=== PATIENT | female | born 1955 | race Caucasian/White ===

== ENCOUNTER → 2019-06-24 07:35 | Outpatient (CLI) | payer MEDICARE, SELFPAY ==
[2019-06-24 13:49] LABS: Monoscreen (Rapid) Negative (Negative)
== END ==
PROVIDERS: PCP Nurse Practitioner Family; Visit Provider Nurse Practitioner Family
DX: R53.83 Other fatigue (principal)
CPT/HCPCS: 36415; 86318

== ENCOUNTER → 2019-08-06 11:17 | Outpatient (CLI) | payer MEDICARE, SELFPAY ==
[2019-08-06 13:34] LABS: Basophils # 0.1 K/mm3 (0-0.2); Basophils % 0.5 % (0.1-2.0); Eosinophils # 0.4 K/mm3 (0.0-0.4); Eosinophils % 2.8 % (0.1-12.0); Hematocrit 37.6 % (37.0-47.0); Hemoglobin 11.1 g/dL (12.2-16.2); Lymphocytes # 3.6 K/mm3 (0.7-4.5); Lymphocytes % 24.5 % (10-50); Mean Corpuscular HGB Conc 29.6 g/dL (31.8-35.4); Mean Corpuscular Hemoglobin 28.6 pg (27.0-31.2); Mean Corpuscular Volume 96.8 fl (81-99); Mean Platelet Volume 8.4 fl (7.4-10.4); Monocytes # 0.8 K/mm3 (0.1-1.0); Monocytes % 5.5 % (1.7-9.3); Neutrophils # 9.8 K/mm3 (1.8-7.8); Neutrophils % 66.8 % (37.0-80.0); Platelet Count 479 K/mm3 (142-424); Red Blood Count 3.89 M/mm3 (4.20-5.40); Red Cell Distribution Width 16.8 % (11.5-17.5); White Blood Count 14.7 K/mm3 (4.8-10.8)
[2019-08-06 13:44] LABS: Alanine Aminotransferase 23 U/L (12-78); Albumin Level 3.3 gm/dL (3.4-5.0); Albumin/Globulin Ratio 0.9 (1.1-1.8); Alkaline Phosphatase 85 U/L (46-116); Aspartate Amino Transferase 11 U/L (15-37); Bilirubin,Total 0.3 mg/dL (0.2-1.0); Blood Urea Nitrogen 10 mg/dL (7-18); Carbon Dioxide 30 mmol/L (21.0-32.0); Creatinine,Serum 0.88 mg/dL (0.55-1.02); Estimated Glomerular Filt Rate 65 ml/min (>60); GFR (African American) 79 ML/MIN (>60); Globulin 3.6 gm/dl (1.3-3.2); Glucose 132 mg/dL (74-106); Total Protein,Serum 6.9 gm/dL (6.4-8.2)
[2019-08-06 14:30] LABS: Anion Gap 10.9 mEq/L (5-15); Chloride 98 mmol/L (98-107); Potassium 3.9 mmoL/L (3.5-5.1); Sodium 135 mmol/L (136-145)
== END ==
PROVIDERS: PCP Nurse Practitioner Family; Visit Provider Nurse Practitioner Family
DX: J96.10 Chronic respiratory failure, unspecified whether with hypoxia or hypercapnia (principal); N17.9 Acute kidney failure, unspecified
CPT/HCPCS: 36415; 80053; 85025

== ENCOUNTER 2019-11-27 14:31 | Observation (INO) ==
[2019-11-27 15:24] LABS: ABG Base Excess 2.9 mmol/L (-2.4-2.3); ABG HCO3 28.1 mmhg (22.0-26.0); ABG Oxygen Saturation 94 % (90-100); ABG PCO2 48.8 mmhg (35.0-45.0); ABG PH 7.38 mmol/L (7.35-7.45); ABG PO2 71.4 mmhg (80-100); ABG TCO2 29.6 mmhg (23-27)
--- NOTE | 2019-11-27 15:25 | Emergency Department Note ---
ED Disposition Clinical Impression: COPD exacerbation, Atypical chest pain Acute bronchitis Qualifiers: Bronchitis organism: unspecified organism Qualified Code(s): J20.9 - Acute bronchitis, unspecified Disposition: Admitted as Observation Condition on Discharge: Fair Referrals: Provider,Referral, [Primary Care Provider] - - Critical Care Critical Care Time: No Attestation: On , the high probability of a clinically significant, sudden or life threatening deterioration of the following system(s) required my full and direct attention, intervention and personal management. The time I documented below is in addition to time spent performing reported procedures but includes the following listed in this critical care notation. Medical Decision Making - Prasad Inquiry Pt receiving controlled substance: No Vital Signs: 11/27/19 14:34 11/27/19 15:28 Temperature 98 F Temperature Source Oral Pulse Rate 88 Pulse Rate [Left Radial] 88 Respiratory Rate 40 H Blood Pressure [Right Arm] 209/91 H Blood Pressure Mean [Right Arm] 130 Blood Pressure Position [Right Arm] Sitting 02 Sat by Pulse Oximetry 89 L Oxygen Delivery Method Nasal Cannula Nasal Cannula Oxygen Flow Rate (LPM) 4 2 - Lab Data Lab Results 11/27/19 14:40: Influenza Type A Ag Negative, Influenza Type B Ag Negative 11/27/19 14:41: Specimen Source R radial, O2 % 2lpm, ABG pH 7.38, ABG pCO2 48.8 H, ABG pO2 71.4 L, ABG HCO3 28.1 H, ABG Total CO2 29.6 H, ABG O2 Saturation 94, ABG Base Excess 2.9 H, Matt Test Acceptable 11/27/19 15:18: WBC 11.8 H, RBC 3.68 L, Hgb 10.2 L, Hct 34.3 L, MCV 93.3, MCH 27.8, MCHC 29.8 L, RDW 16.0, Plt Count 460 H, MPV 8.1, Neut % (Auto) 55.9, Lymph % (Auto) 31.6, [place] % (Auto) 7.7, Eos % (Auto) 4.1, Baso % (Auto) 0.7, Neut # (Auto) 6.6, Lymph # (Auto) 3.7, [place] # (Auto) 0.9, Eos # (Auto) 0.5 H, Baso # (Auto) 0.1 02/13/20 15:18: Sodium 141, Potassium 3.9, Chloride 101, Carbon Dioxide 33 H, Anion Gap 10.9, BUN 5 L, Creatinine 0.77, Estimated Creat Clear 40, Estimated GFR 76, Est GFR ( Amer) 92, Glucose 142 H, Calcium 8.7, Total Bilirubin 0.2, AST 11 L, ALT 13, Alkaline Phosphatase 92, Troponin I < 0.02, Total Protein 7.8, Albumin 3.2 L, Globulin 4.6 H, Albumin/Globulin Ratio 0.7 L 11/27/19 15:18: Lactate 1.2 Result diagrams: 11/27/19 15:18 11/27/19 15:18 Orders (Tests/Meds): ED MEDICATIONS Discontinued Medications Generic Name Dose Route Start Last Admin Trade Name Freq PRN Reason Stop Dose Admin Albuterol/Ipratropium 3 ml 11/27/19 14:46 11/27/19 15:00 Duoneb 3ml Neb IH 11/27/19 14:47 3 ml ONCE ONE Administration Methylprednisolone Sodium Succinate 125 mg 11/27/19 15:40 11/27/19 15:53 Solu-Medrol 125mg/2ml Vial IV 11/27/19 15:41 125 mg ONCE ONE Administration ORDERS Category Date Time Status Troponin I Q3H Lab 11/27/19 17:45 Ordered Troponin I Q3H Lab 11/27/19 20:45 Ordered Blood Culture Stat Micro 11/27/19 15:18 Received - Radiology Data #1 Image(s): Chest Image Reviewed: Yes I have reviewed radiologist's interpretation PROCEDURE: XR CHEST PORTABLE CLINICAL HISTORY: SOB Shortness of breath COMPARISON: No exams were available for comparison FINDINGS: Borderline cardiomegaly without failure. There are low lung volumes. Vague increased density right upper lobe possibly due to prominent rib end. Minimal atelectatic or fibrotic changes left mid lung. Loop recorder device is present overlying the lower left paramedian region of the chest. No acute bony abnormalities. IMPRESSION: Nonspecific nonacute findings as described above. Dictated by: Matt Pfeiffer MD 11/27/2019 15:05 Electronically signed by Matt Pfeiffer MD in [place] 11/27/2019 15:05 - ECG Data Tracing #1 EKG interpreted by Jose Johansen MD: Rhythm: sinus Rate: 70 [place]: normal Ectopy: Premature atrial contraction Conduction: Incomplete right bundle branch block ST Segment Changes: none T Wave Changes: none Q Waves: none No evidence of acute ischemia or injury - Physician Consults Physician Consulted: Ramon Time: 16:42 Reason -: Admission Comment/Response: Agrees to admit the patient to the hospital. We discussed the patient's clinical information, including history, exam, laboratory and radiology results and ED course. Per hospital procedure, I will write temporary bridge inpatient orders on the patient. Specific orders requested by the admitting physician: Intravenous azithromycin, continue steroids nebulizer treatments, oxygen - Reevaluation(s) Time: 16:41 Reevaluation #1: Results, plan and disposition. Patient states she has not been doing well at home and feels she is too sick to go home, would like to be admitted. General Adult HPI - General Chief complaint: Shortness of Breath/Dyspnea Stated complaint: SOB, AMS Time Seen by Provider: 11/27/19 15:25 Mode of Arrival: EMS Limitations: No Limitations Description of Symptoms (Recalled from ER Triage Doc. by RN): TO ED PER [facility] PT SENT BY [facility] FOR EVAL DUE TO SOB, FEVER, CONFUSION. PT ALERT ORIENTED BUT WITH INTERMITTENTLY PICK AT THINGS IN THE AIR. PT C/O NECK PAIN, FEVER AT HOME OF 104. PT WEARS O2 4L AT HOME 07/05 - History of Present Illness HPI narrative: Patient states that she thinks she has some sort of virus. Says that she was exposed to her grandkids last week or was sick. She complains of a cough producing yellow sputum, says that she thinks she had some blood tingeing of her sputum over the past couple of days. Fever up to 104 degrees 2 days ago. Generalized body aches. Denies rhinorrhea or sore throat. Decreased urinary output, no dysuria. Also says that she began having heaviness in her chest last night that has been constant all night and all day. She says she is on oxygen at home "only when I get sick". She says that she has a loop recorder that migrated. She sees Dr. Santillan for cardiology at [facility] [place]. She denies history of coronary artery disease, [place], stent placement, or bypass surgery. Denies vomiting or diarrhea. Seen at [facility] (formerly [facility]), diagnosed with wheezing and sent to the emergency room. - Related Data Home Medications Medication Instructions Recorded Confirmed Albuterol Sulfate [Albuterol 2.5 mg IH QID 11/27/19 11/27/19 Sulfate 2.5mg/0.5ml Neb] Amlodipine Besylate [Norvasc 10mg 10 mg PO DAILY 11/27/19 11/27/19 tablet] Aspirin [Aspirin 81mg chewable 81 mg PO DAILY 11/27/19 11/27/19 tab] Cholecalciferol (Vitamin D3) 5,000 units PO DAILY 11/27/19 11/27/19 Fluoxetine HCl [Prozac] 40 mg PO DAILY 11/27/19 11/27/19 Furosemide [Furosemide 40MG tAB] 40 mg PO DAILY 11/27/19 11/27/19 Gabapentin 800 mg PO QID 11/27/19 11/27/19 Levothyroxine Sodium 50 mcg PO DAILY 11/27/19 11/27/19 [Levothyroxine 50mcg (0.05mg) Tab] Metformin HCl 500 mg PO BID 11/27/19 11/27/19 Methadone HCl [Methadone 10mg 10 mg PO QID 11/27/19 11/27/19 Tablet] Ondansetron HCl [Zofran 8mg Tab*] 8 mg PO TID 11/27/19 11/27/19 Pantoprazole Sodium [Protonix 40mg 40 mg PO DAILY 11/27/19 11/27/19 (granule) packet] carvediloL [Carvedilol 3.125mg Tab] 3.125 mg PO BID 11/27/19 11/27/19 Allergies Allergy/AdvReac Type Severity Reaction Status Date / Time Anticoagulants, Coumarin Allergy Unknown Uncoded 10/02/17 15:04 Cephalosporin Allergy Unknown Uncoded 10/02/17 15:04 Contrast Media, Iodine Allergy Unknown Uncoded 10/02/17 15:04 Related From Cefotaxime Sodium Allergy Unknown Uncoded 10/02/17 15:04 From Meperidine HCl Allergy Unknown Uncoded 10/02/17 15:04 Nonsteroidal Allergy Unknown Uncoded 10/02/17 15:04 Antiinflammatory Drug Sulfonamide Related Allergy Unknown Uncoded 10/02/17 15:04 [facility] History - Hepatitis A Screen Drug use history?: No High risk sexual behaviors?: No History of sexually transmitted infection?: No Currently employed?: No Childcare worker?: No Do you have indoor plumbing?: Yes Do you have electricity?: Yes Attestation statement:: This patient has been screened for Hepatitis A risk factors. I have reviewed the patient's past medical history: Yes - Social History Alcohol Intake: never Occupational Status: other ROS Obtained: Yes All systems reviewed & no additional complaints - Constitutional Constitutional: Reports body ache, Reports fever(s) - ENT Ears, Nose, Mouth, and Throat: Denies nasal discharge, Denies sore throat - Cardiovascular Cardiovascular: Reports chest pain - Respiratory Respiratory: Yes cough, Yes dyspnea, Yes excessive phlegm production, Yes coug pilar up blood - Gastrointestinal Gastrointestingal: Denies: diarrhea, vomiting - Genitourinary Female Genitourinary: Reports as per HPI Physical Exam - General General appearance: alert, in no apparent distress - Head Head exam: atraumatic - Eye Eye exam: Present: normal appearance, EOMI - ENT ENT exam: Present: mucous membranes moist - Neck Neck exam: Present: normal inspection, trachea midline - Chest Chest inspection: Present: normal inspection, symmetric chest wall rise - Respiratory Respiratory exam: Present: normal lung sounds bilaterally. Absent: respiratory distress - Cardiovascular Cardiovascular exam: Present: regular rate, normal rhythm, normal heart sounds - Abdominal Exam Abdominal exam: Present: soft, normal bowel sounds. Absent: distention, tenderness - Extremities Exam Extremities exam: Present: normal inspection - Neurological Exam Neurological exam: Present: alert, oriented X3, CN II-XII intact. Absent: motor sensory deficit - Psychiatric Psychiatric exam: Present: anxious - Skin Skin exam: Present: warm, dry
[2019-11-27 15:26] LABS: Basophils # 0.1 K/mm3 (0-0.2); Basophils % 0.7 % (0.1-2.0); Eosinophils # 0.5 K/mm3 (0.0-0.4); Eosinophils % 4.1 % (0.1-12.0); Hematocrit 34.3 % (37.0-47.0); Hemoglobin 10.2 g/dL (12.2-16.2); Lymphocytes # 3.7 K/mm3 (0.7-4.5); Lymphocytes % 31.6 % (10-50); Mean Corpuscular HGB Conc 29.8 g/dL (31.8-35.4); Mean Corpuscular Volume 93.3 fl (81-99); Mean Platelet Volume 8.1 fl (7.4-10.4); Monocytes # 0.9 K/mm3 (0.1-1.0); Monocytes % 7.7 % (1.7-9.3); Neutrophils # 6.6 K/mm3 (1.8-7.8); Neutrophils % 55.9 % (37.0-80.0); Platelet Count 460 K/mm3 (142-424); Red Blood Count 3.68 M/mm3 (4.20-5.40); White Blood Count 11.8 K/mm3 (4.8-10.8)
[2019-11-27 15:27] LABS: Allen's Test ACCEPTABLE; Oxygen 2LPM %
[2019-11-27 15:46] LABS: Alanine Aminotransferase 13 U/L (9-52); Albumin Level 3.2 g/dL (3.4-5.0); Albumin/Globulin Ratio 0.7 (1.1-1.8); Alkaline Phosphatase 92 U/L (46-116); Anion Gap 10.9 mEq/L (5-15); Aspartate Amino Transferase 11 U/L (15-37); Bilirubin,Total 0.2 mg/dL (0.2-1.0); Blood Urea Nitrogen 5 mg/dL (7-18); Calcium 8.7 mg/dL (8.5-10.1); Carbon Dioxide 33 mmol/L (21.0-32.0); Chloride 101 mmol/L (98-107); Globulin 4.6 gm/dl (1.3-3.2); Glucose 142 mg/dL (74-106); Sodium 141 mmol/L (137-145); Total Protein,Serum 7.8 g/dL (6.4-8.2)
--- NOTE | 2019-11-28 07:23 | History & Physical Report ---
*Admission Date: 11/28/19 *Chief complaint: Feeling bad and shortness of breath *History of present illness: 64-year-old female who reports 1-1/2 to 2 weeks of illness that was flulike presented to the emergency department yesterday because she was feeling worse and had been sent to the ER by her current primary care provider who is a nurse practitioner over in [place]. Patient reports flulike illness with increasing shortness of breath over the last several days with hypoxia at home. Patient has COPD and will use oxygen intermittently when she is ill. She reports her O2 sats were in the 70s with ambulation at home despite use of her supplemental oxygen. She presented to the nurse practitioner's office and was subsequently referred to the hospital. Work-up revealed findings consistent with a COPD exacerbation. Patient was admitted on IV steroids and aerosols along with IV azithromycin. Patient herself reports rarely using aerosols at home, even when she is ill. When she presented to the emergency department she also mentioned that she had been having some chest discomfort that she describes as retrosternal chest tightness and heaviness. Patient ruled out for AL overnight with serial troponins. EKG showed a sinus rhythm without any signs of ischemia or infarct. This morning the patient began complaining of chest pain and tightness again that would radiate towards the left shoulder. Patient claims a history of cardiomyopathy and it is also suspected she may have pulmonary artery hypertension. 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 She also admits that she feels fluid overloaded. Additional troponin has been ordered this morning. Her chest tightness has not been relieved with nitroglycerin so far this morning. Patient admits her pain could be musculoskeletal in origin as she has chronic pain primarily coming from her right lower extremity as a compl ication of compartment syndrome that developed after an accident. Patient was left with osteomyelitis as well. She also has compression fractures in her lumbar spine. [facility] History I have reviewed the patient's past medical history: Yes Medical History: Reports:: Arrhythmia, Cancer (endometrial), Cardiomyopathy, Deep Vein Thrombosis (with IVC filter. Anti-coagulation contraindicated due to recurrent bleeds), Diabetes Mellitus Type 2, Gastroesophageal Reflux Disease(GERD) (s/p Fundoplication), Gastrointestinal Bleed (Due to NSAID use), Home Oxygen, Hypertension, MRSA, Supraventricular Tachycardia *Have you ever received a pneumonia vaccine?: Yes *Have you received a flu vaccine this season?: Yes Other Medical History: Reports: Anemia, Arthritis, Cataracts, Hypothyroidism, Thyroid Disease Comment:: Grade 1 diastolic dysfunction July 2019, recurring deep vein thromboses requiring long-term anticoagulation discontinued in 2019 due to repeated falls with intra-abdominal bleeding, suspected pulmonary artery hypertension osteoporotic compression fractures, osteo-myelitis of the right tibia, Restrictive Lung Disease Other Surgeries: Yes: Cardiac Catheterization, Cholecystectomy, Colonoscopy, EGD, Hysterectomy-Total Amputation: No - *Social History Educational Level: Completed College Alcohol Intake: never *Occupational Status:: retired *Travel in the last 8 weeks: None Family Hx:: Anemia, Asthma, Bleeding Disorder, Cancer, Diabetes, Kidney Disease, Thyroid Disorder Review of Systems - Constitutional Reports chills, Reports daytime sleepiness, Reports lack of energy, Denies anorexia, Denies body ache(s) - *Cardiovascular Reports chest pain at rest, Reports shortness of breath with activity - *Respiratory Reports chest congestion, Reports cough, Reports shortness of breath - *Gastrointestinal Denies abdominal pain, Denies belching, Denies bloating - *Musculoskeletal Reports abnormal walking, Reports joint pain - *Neurologic Reports abnormal walking, Reports abnormal movements Meds Home Medications Medication Instructions Recorded Confirmed Type Albuterol Sulfate [Albuterol 2.5 mg IH QID PRN 11/27/19 11/27/19 History Sulfate 2.5mg/0.5ml Neb] Amlodipine Besylate [Norvasc 10mg 10 mg PO DAILY 11/27/19 11/28/19 History tablet] Aspirin [Aspirin 81mg chewable 81 mg PO DAILY 11/27/19 11/28/19 History tab] Cholecalciferol (Vitamin D3) 5,000 units PO DAILY 11/27/19 11/28/19 History Furosemide [Furosemide 40MG tAB] 40 mg PO DAILY 11/27/19 11/28/19 History Gabapentin 800 mg PO QID 11/27/19 11/28/19 History Levothyroxine Sodium 50 mcg PO DAILY 11/27/19 11/28/19 History [Levothyroxine 50mcg (0.05mg) Tab] Metformin HCl 500 mg PO BID 11/27/19 11/28/19 History Methadone HCl [Methadone 10mg 10 mg PO QID 11/27/19 11/28/19 History Tablet] Ondansetron HCl [Zofran 8mg Tab*] 8 mg PO TIDP PRN 11/27/19 11/28/19 History carvediloL [Carvedilol 3.125mg Tab] 3.125 mg PO BID 11/27/19 11/28/19 History Fluoxetine HCl 40 mg PO DAILY 11/28/19 11/28/19 History Pantoprazole Sodium [Protonix 40mg 40 mg PO DAILY 11/28/19 11/28/19 History tablet] Allergies Allergy/AdvReac Type Severity Reaction Status Date / Time Cephalosporins Allergy Unknown Verified 11/28/19 07:32 allergy reaction Iodinated Contrast Media Allergy Unknown Verified 11/28/19 07:32 allergy reaction meperidine Allergy Unknown Verified 11/28/19 07:32 allergy reaction NSAIDS (Non-Steroidal Allergy Unknown Verified 11/28/19 07:32 Anti-Inflamma allergy reaction Sulfa (Sulfonamide Allergy Unknown Verified 11/28/19 07:32 Antibiotics) allergy reaction enoxaparin [From Lovenox] AdvReac Unknown Verified 11/28/19 07:32 allergy reaction nalbuphine AdvReac Unknown Verified 11/28/19 07:32 allergy reaction promethazine AdvReac Unknown Verified 11/28/19 07:32 allergy reaction Exam Vital signs and Labs for Last 24 Hours: Temp Pulse Resp BP Pulse Ox 98.1 F 99 H 16 132/75 95 11/28/19 06:01 11/28/19 06:24 11/28/19 06:24 11/28/19 06:24 11/28/19 06:24 Laboratory Results - last 24 hr 11/27/19 14:40: Influenza Type A Ag Negative, Influenza Type B Ag Negative 11/27/19 14:41: Specimen Source R radial, O2 % 2lpm, ABG pH 7.38, ABG pCO2 48.8 H, ABG pO2 71.4 L, ABG HCO3 28.1 H, ABG Total CO2 29.6 H, ABG O2 Saturation 94, ABG Base Excess 2.9 H, Matt Test Acceptable 11/27/19 15:18: WBC 11.8 H, RBC 3.68 L, Hgb 10.2 L, Hct 34.3 L, MCV 93.3, MCH 27.8, MCHC 29.8 L, RDW 16.0, Plt Count 460 H, MPV 8.1, Neut % (Auto) 55.9, Lymph % (Auto) 31.6, [place] % (Auto) 7.7, Eos % (Auto) 4.1, Baso % (Auto) 0.7, Neut # (Auto) 6.6, Lymph # (Auto) 3.7, [place] # (Auto) 0.9, Eos # (Auto) 0.5 H, Baso # (Auto) 0.1 11/27/19 15:18: Sodium 141, Potassium 3.9, Chloride 101, Carbon Dioxide 33 H, Anion Gap 10.9, BUN 5 L, Creatinine 0.77, Estimated Creat Clear 40, Estimated GFR 76, Est GFR ( Amer) 92, Glucose 142 H, Calcium 8.7, Total Bilirubin 0.2, AST 11 L, ALT 13, Alkaline Phosphatase 92, Troponin I < 0.02, Total Protein 7.8, Albumin 3.2 L, Globulin 4.6 H, Albumin/Globulin Ratio 0.7 L 11/27/19 15:18: Lactate 1.2 11/27/19 18:20: Troponin I < 0.02 11/27/19 20:36: POC Glucose 237 H 11/27/19 20:54: Troponin I < 0.02 11/28/19 06:20: Troponin I < 0.02 I & O for Last 24 hours: Intake & Output 11/25/19 11/26/19 11/27/19 11/28/19 11:59 11:59 11:59 11:59 Intake Total 600 / 600 Output Total 951 / 951 Balance -351 / -351 Weight 220 lb 4 oz Narrative: Patient is laying comfortably in bed. External ears are normal. Scalp is without lesions. Pupils are reactive to light. Oropharynx is moist. Neck is without lymphadenopathy or jugular venous distention. Lungs have expiratory wheezes posteriorly with fair aeration. Heart has a regular rate and rhythm without murmur. Abdomen is obese and soft. Lower extremities have no edema. Patient has tenderness along the right tibia from her history of osteomyelitis. Skin is warm to the touch. She has palpable distal pulses. Neurologically there is no gross deficit. Patient was not ambulated Assessment and Plan (1) COPD exacerbation Current visit: Yes Status: Acute Category: Medical Code(s): J44.1 - Chronic obstructive pulmonary disease with (acute) exacerbation Continue IV Solu-Medrol, aerosols, IV azithromycin (2) Diastolic dysfunction Current visit: Yes Status: Acute Category: Medical Code(s): I51.89 - Other ill-defined heart diseases I suspect her diastolic dysfunction is the cause of her chest discomfort as she is ruled out for AL once already and EKGs showed no signs of cardiac injury. Patient will be diuresed today with Lasix 40 mg IV (3) Diabetes mellitus type 2 in obese Current visit: Yes Status: Acute Category: Medical Code(s): E11.69 - Type 2 diabetes mellitus with other specified complication; E66.9 - Obesity, unspecified Continue sliding scale insulin coverage for now (4) Chronic pain Current visit: Yes Status: Acute Category: Medical Code(s): G89.29 - Other chronic pain Patient's methadone and gabapentin has been ordered every 6 hours per her request
[2019-11-28 07:31] LABS: Basophils % 0.1 % (0.1-2.0); Eosinophils # 0.1 K/mm3 (0.0-0.4); Eosinophils % 0.8 % (0.1-12.0); Hematocrit 33.2 % (37.0-47.0); Hemoglobin 9.9 g/dL (12.2-16.2); Lymphocytes # 1.4 K/mm3 (0.7-4.5); Lymphocytes % 12.9 % (10-50); Mean Corpuscular Volume 92.8 fl (81-99); Monocytes # 0.1 K/mm3 (0.1-1.0); Monocytes % 0.8 % (1.7-9.3); Neutrophils # 9.3 K/mm3 (1.8-7.8); Neutrophils % 85.3 % (37.0-80.0); Platelet Count 475 K/mm3 (142-424); Red Blood Count 3.58 M/mm3 (4.20-5.40); Red Cell Distribution Width 15.7 % (11.5-17.5); White Blood Count 10.9 K/mm3 (4.8-10.8)
[2019-11-28 07:47] LABS: Anion Gap 12.1 mEq/L (5-15); Calcium 8.9 mg/dL (8.5-10.1)
--- NOTE | 2019-11-28 07:57 | Pharmacy Consult Notes ---
[facility] Pharmacy VTE Monitoring - Patient Demographics Admission date: 11/27/19 Report Date: 11/28/19 Time: 07:56 Allergies/Adverse Reactions: Patient Allergies Cephalosporins Allergy (Verified 11/28/19 07:32) Unknown allergy reaction Iodinated Contrast Media Allergy (Verified 11/28/19 07:32) Unknown allergy reaction meperidine Allergy (Verified 11/28/19 07:32) Unknown allergy reaction NSAIDS (Non-Steroidal Anti-Inflamma Allergy (Verified 11/28/19 07:32) Unknown allergy reaction Sulfa (Sulfonamide Antibiotics) Allergy (Verified 11/28/19 07:32) Unknown allergy reaction enoxaparin [From Lovenox] Adverse Reaction (Verified 11/28/19 07:32) Unknown allergy reaction nalbuphine Adverse Reaction (Verified 11/28/19 07:32) Unknown allergy reaction promethazine Adverse Reaction (Verified 11/28/19 07:32) Unknown allergy reaction Height: 1.5 m Weight: 99.904 kg Patient Problems: Current Active Problems COPD exacerbation (Acute) Acute bronchitis (Acute) Atypical chest pain (Acute) Diastolic dysfunction (Acute) Diabetes mellitus type 2 in obese (Acute) Chronic pain (Acute) - VTE Risk Labs: VTE Related Lab Results Hgb 9.9 g/dL (12.2-16.2) L 11/28/19 06:20 Hct 33.2 % (37.0-47.0) L 11/28/19 06:20 Plt Count 475 K/mm3 (142-424) H 11/28/19 06:20 BUN 9 mg/dL (7-18) D 11/28/19 06:20 Creatinine 0.85 mg/dL (0.55-1.02) 11/28/19 06:20 Estimated Creat Clear 40 mL/min (50-200) 11/28/19 06:20 Was VTE Risk Assessment Performed: Yes VTE Score: 8 VTE Risk Level: Moderate Risk - Prophylaxis VTE Prophylaxis Ordered?: Yes Types of VTE Prophylaxis: TEDS Knee High Location of Applied Device: Bilateral Lower Extremeties - VTE Diagnosis Confirmed Treatment or plan recommended: Continue Current Treatment
[2019-11-28 09:47] LABS: Lymphocytes % 11 % (10-50); Monocytes % 1 % (2-9); Neutrophils % 88 % (42-76); Total Cells Counted 100
[2019-11-28 09:48] LABS: RBC Morphology Normal
--- NOTE | 2019-11-28 10:46 | Electrocardiograph Report ---
APPROVED REPORT Exam: Resting ECG HR:85 bpm ECG Measurements Heart Rate 85 AXES [place] 212 P 66 QRSd 106 QRS -3 QT 428 T51 QTc 509 <Conclusion> Sinus rhythm with 1st degree AV block Incomplete right bundle branch block Nonspecific T wave abnormality Prolonged QT Abnormal ECG Electronically signed by : Edwin Lewis, 11/28/2019 10:46:13
--- NOTE | 2019-11-29 07:52 | Progress Note ---
Internal Medicine - PN: Subj *Date: 11/29/19 *Time: 07:49 Interval history: Patient reports feeling better although she had an episode of chest congestion with tightness early this morning that "took her breath". She was offered a breathing treatment but declined due to history of albuterol causing tachycardia. She diuresed well with intravenous Lasix yesterday and patient reports feeling better with diuresis. Exam Vital signs and Labs for Last 24 Hours: Temp Pulse Resp BP Pulse Ox 97.9 F 52 L 18 134/63 96 11/29/19 04:00 11/29/19 04:00 11/29/19 04:00 11/29/19 04:00 11/29/19 04:00 Laboratory Results - last 24 hr 11/28/19 05:50: POC Glucose 300 H 11/28/19 06:20: Total Counted 100, Neutrophils % (Manual) 88 H, Lymphocytes % (Manual) 11, Monocytes % (Manual) 1 L, Platelet Estimate Slight increase, RBC Morphology Normal 11/28/19 06:20: Sodium 140, Potassium 4.1, Chloride 102, Carbon Dioxide 30, Anion Gap 12.1, BUN 9 D, Creatinine 0.85, Estimated Creat Clear 40, Estimated GFR 68, Est GFR ( Amer) 82, Glucose 294 H D, Calcium 8.9 11/28/19 11:17: POC Glucose 267 H 11/28/19 16:34: POC Glucose 389 H* 11/28/19 20:57: POC Glucose 339 H* 11/29/19 06:19: POC Glucose 308 H* I & O for Last 24 hours: Intake & Output 11/26/19 11/27/19 11/28/19 11/29/19 11:59 11:59 11:59 11:59 Intake Total 720 / 720 1154 / 1154 Output Total 951 / 951 3750 / 3750 Balance -231 / -231 -2596 / -2596 Weight 220 lb 4 oz 220 lb 4.01 oz Narrative: Patient appears comfortable sitting up in bed. Oropharynx is moist. Lungs have expiratory wheezes this morning but less audible than yesterday. Heart has a regular rate and rhythm. Abdomen is soft and nontender. Extremities have no significant edema Assessment and Plan (1) COPD exacerbation Current visit: Yes Status: Acute Category: Medical Code(s): J44.1 - Chronic obstructive pulmonary disease with (acute) exacerbation (2) Diastolic dysfunction Current visit: Yes Status: Acute Category: Medical Code(s): I51.89 - Other ill-defined heart diseases (3) Diabetes mellitus type 2 in obese Current visit: Yes Status: Acute Category: Medical Code(s): E11.69 - Type 2 diabetes mellitus with other specified complication; E66.9 - Obesity, unspecified (4) Chronic pain Current visit: Yes Status: Acute Category: Medical Code(s): G89.29 - Other chronic pain - Assessment and plan all Dx Assessment and Plan for all problems:: Decrease steroids Change aerosols to Xopenex and ipratropium Continue IV azithromycin Continue diuresis
[2019-11-29 08:39] LABS: Basophils % 0.1 % (0.1-2.0); Eosinophils # 0.1 K/mm3 (0.0-0.4); Eosinophils % 0.4 % (0.1-12.0); Hematocrit 33.8 % (37.0-47.0); Hemoglobin 10.2 g/dL (12.2-16.2); Lymphocytes # 1.8 K/mm3 (0.7-4.5); Mean Corpuscular HGB Conc 30.1 g/dL (31.8-35.4); Mean Corpuscular Volume 92.6 fl (81-99); Mean Platelet Volume 8.3 fl (7.4-10.4); Monocytes # 0.5 K/mm3 (0.1-1.0); Monocytes % 2.7 % (1.7-9.3); Neutrophils # 17.2 K/mm3 (1.8-7.8); Neutrophils % 87.7 % (37.0-80.0); Platelet Count 525 K/mm3 (142-424); Red Blood Count 3.65 M/mm3 (4.20-5.40); Red Cell Distribution Width 15.7 % (11.5-17.5); White Blood Count 19.6 K/mm3 (4.8-10.8)
[2019-11-29 09:23] LABS: Anion Gap 8.3 mEq/L (5-15); Calcium 9.4 mg/dL (8.5-10.1)
[2019-11-29 11:50] LABS: Hypochromasia 2+; Lymphocytes % 12 % (10-50); Monocytes % 2 % (2-9); Neutrophils % 85 % (42-76); Total Cells Counted 100
--- NOTE | 2019-11-30 07:49 | Electrocardiograph Report ---
APPROVED REPORT Exam: Resting ECG HR:70 bpm ECG Measurements Heart Rate 70 AXES [place] 176 P 64 QRSd 104 QRS 27 QT 472 T49 QTc 509 <Conclusion> Sinus rhythm with premature atrial complexes Incomplete right bundle branch block Prolonged QT Abnormal ECG Electronically signed by : Nuno Moreno, 11/30/2019 07:49:23
--- NOTE | 2019-11-30 08:12 | Discharge Summary ---
General - General Admission date:: 11/27/19 Discharge date: 11/30/19 HPI HPI: 64-year-old female who reports 1-1/2 to 2 weeks of illness that was flulike presented to the emergency department yesterday because she was feeling worse and had been sent to the ER by her current primary care provider who is a nurse practitioner over in [place]. Patient reports flulike illness with increasing shortness of breath over the last several days with hypoxia at home. Patient has COPD and will use oxygen intermittently when she is ill. She reports her O2 sats were in the 70s with ambulation at home despite use of her supplemental oxygen. She presented to the nurse practitioner's office and was subsequently referred to the hospital. Work-up revealed findings consistent with a COPD exacerbation. Patient was admitted on IV steroids and aerosols along with IV azithromycin. Patient herself reports rarely using aerosols at home, even when she is ill. When she presented to the emergency department she also mentioned that she had been having some chest discomfort that she describes as retrosternal chest tightness and heaviness. Patient ruled out for MO overnight with serial troponins. EKG showed a sinus rhythm without any signs of ischemia or infarct. This morning the patient began complaining of chest pain and tightness again that would radiate towards the left shoulder. Patient claims a history of cardiomyopathy and it is also suspected she may have pulmonary artery hypertension. Her residential solar sales consultant and cracking and fanning machine operator are in [place]. She also admits that she feels fluid overloaded. Additional troponin has been ordered this morning. Her chest tightness has not been relieved with nitroglycerin so far this morning. Patient admits her pain could be musculoskeletal in origin as she has chronic pain primarily coming from her right lower extremity as a complication of compartment syndrome that developed after an accident. Patient was left with osteomyelitis as well. She also has compression fractures in her lumbar spine. Hospital Course Hospital Course: Patient was admitted with a diagnosis of COPD exacerbation. Patient was started on aerosols, IV Solu-Medrol, IV azithromycin. Patient reported that she does not have COPD. She sees a residential solar sales consultant in [place] and pulmonary function test have showed restrictive lung disease which is suspected may be due to to her long history of severe gastroesophageal reflux disease for which she underwent fundoplication in 2007. Treatment was continued. Aerosols were changed to as needed due to albuterol causing tachycardia. Aerosols were also changed to Xopenex and ipratropium. Steroids were weaned daily due to daily improvement. Patient has a diagnosis of Dunbar's disease and takes prednisone 2-1/2 mg at home on a daily basis. She follows with an silk washing machine operator in [place]. On the day of discharge she still had faint expiratory wheezes. She will continue prednisone 10 mg daily for 5 additional days while arranging follow-up with her primary care provider. She will also continue oral azithromycin. Chest x-ray was negative for infiltrate on admission and follow- up chest x-ray the next morning showed suspicious area in the left lung that could be infiltrate. She was continued on IV azithromycin during her hospitalization. The day following admission patient complained of sensation of being fluid overloaded. She does have a diagnosis of diastolic dysfunction with normal ejection fraction of 60% on echocardiogram in July 2019 patient had access to through her patient portal at [facility]. Patient was started on intravenous Lasix 40 mg twice daily with excellent response. Putting out over 4 L of urine per 24 hours while on Lasix and having a total negative fluid balance over her last 48 hours of admission of 6 L. Patient noticed significant improvement in sensation of swelling in the hands as well as fluid she believes she carries in the intra-abdominal region. She will continue oral Lasix at discharge. Patient has diabetes mellitus and metformin was held on admission. Patient claims it causes GI upset and is ineffective. This will be restarted at discharge until she follows up with her primary care provider. I have added on glipizide 5 mg for patient to take prior to lunch. Patient has chronic pain for which she takes methadone 10 mg every 6 hours and gabapentin every 6 hours. On initial hospitalization patient did not receive her medication exactly as she takes it at home which led to an increase in pain including complaints of chest pain. Patient ruled out for MO twice during her hospitalization. EKGs never revealed any ischemia or injury. It was felt her chest pain was due to a combination of her chronic pain and diastolic dysfunction. On November 30 patient was improved. Despite the presence of persistent faint wheezing patient reported feeling significantly better. She had diuresed well. She was discharged home. Patient will use her oxygen as needed at home. She will follow-up with her primary care provider in the coming week. Objective Vital signs: Temp Pulse Resp BP Pulse Ox 98.4 F 72 18 140/91 H 98 02/16/20 04:00 11/30/19 04:00 11/30/19 04:00 11/30/19 04:00 11/30/19 04:00 no acute distress - *Routine HEENT Exam Head: Present: normocephalic Eye: Present: EOMI ENT: Present: mucous membranes moist - *Routine Neck Exam Present: supple, full ROM - *Routine Respiratory Exam Present: wheezes (Faint bilateral). Absent: rales, rhonchi - *Routine Cardiovascular Exam Present: RRR, Normal S1, Normal S2. Absent: murmur - *Routine Extremities Exam Absent: edema Results Labs on day of discharge: Labs from last 24 hours 11/30/19 11/29/19 11/29/19 06:03 22:00 21:07 WBC RBC Hgb Hct MCV MCH MCHC RDW Plt Count MPV Neut % (Auto) Lymph % (Auto) Smith % (Auto) Eos % (Auto) Baso % (Auto) Neut # (Auto) Lymph # (Auto) Smith # (Auto) Eos # (Auto) Baso # (Auto) Total Counted Neutrophils % (Manual) Band Neutrophils % Lymphocytes % (Manual) Monocytes % (Manual) Platelet Estimate Hypochromasia Poikilocytosis Acanthocytes (Spur) Schistocytes Sodium Potassium Chloride Carbon Dioxide Anion Gap BUN Creatinine Estimated Creat Clear Estimated GFR Est GFR ( Amer) Glucose POC Glucose 266 H 401 H* 435 H* Calcium 11/29/19 11/29/19 11/29/19 19:48 16:18 11:07 WBC RBC Hgb Hct MCV MCH MCHC RDW Plt Count MPV Neut % (Auto) Lymph % (Auto) Smith % (Auto) Eos % (Auto) Baso % (Auto) Neut # (Auto) Lymph # (Auto) Smith # (Auto) Eos # (Auto) Baso # (Auto) Total Counted Neutrophils % (Manual) Band Neutrophils % Lymphocytes % (Manual) Monocytes % (Manual) Platelet Estimate Hypochromasia Poikilocytosis Acanthocytes (Spur) Schistocytes Sodium Potassium Chloride Carbon Dioxide Anion Gap BUN Creatinine Estimated Creat Clear Estimated GFR Est GFR ( Amer) Glucose POC Glucose 462 H* 396 H* 296 H Calcium 11/29/19 11/29/19 08:29 08:29 WBC 19.6 H D RBC 3.65 L Hgb 10.2 L Hct 33.8 L MCV 92.6 MCH 27.9 MCHC 30.1 L RDW 15.7 Plt Count 525 H MPV 8.3 Neut % (Auto) 87.7 H Lymph % (Auto) 9.0 L Smith % (Auto) 2.7 Eos % (Auto) 0.4 Baso % (Auto) 0.1 Neut # (Auto) 17.2 H Lymph # (Auto) 1.8 Smith # (Auto) 0.5 Eos # (Auto) 0.1 Baso # (Auto) 0.0 Total Counted 100 Neutrophils % (Manual) 85 H Band Neutrophils % 1.0 Lymphocytes % (Manual) 12 Monocytes % (Manual) 2 Platelet Estimate Moderate increase Hypochromasia 2+ Poikilocytosis 2+ Acanthocytes (Spur) 1+ Schistocytes 1+ Sodium 139 Potassium 4.3 Chloride 100 Carbon Dioxide 35 H Anion Gap 8.3 BUN 19 H D Creatinine 0.98 Estimated Creat Clear 40 Estimated GFR 58 L Est GFR ( Amer) 70 Glucose 304 H POC Glucose Calcium 9.4 Preliminary micro results at discharge 11/27/19 15:18 Blood Culture - Preliminary Blood NO GROWTH AFTER 48 HOURS 11/27/19 15:18 Blood Culture - Preliminary Blood NO GROWTH AFTER 48 HOURS DS: Diagnosis - Discharge Diagnosis (1) COPD exacerbation Status: Acute (2) Diastolic dysfunction Status: Acute (3) Diabetes mellitus type 2 in obese Status: Chronic (4) Chronic pain Status: Chronic (5) Restrictive lung disease Status: Chronic (6) Addisons disease Status: Chronic (7) Acute bronchitis Status: Acute Discharge Plan - Patient Discharge Instructions ACTIVITY: Continue current activity DIET: continue same diet Patient Instructions: DI for Chronic Obstructive Pulmonary Disease, DI for Acute Bronchitis, DI for Atypical Chest Pain - Follow up Plan Disposition: Home, Self-Fci Medications: Home Medications Medication Instructions Recorded Confirmed Type Albuterol Sulfate [Albuterol 2.5 mg IH QID PRN 11/27/19 11/27/19 History Sulfate 2.5mg/0.5ml Neb] Amlodipine Besylate [Norvasc 10mg 10 mg PO DAILY 11/27/19 11/28/19 History tablet] Aspirin [Aspirin 81mg chewable 81 mg PO DAILY 11/27/19 11/28/19 History tab] Cholecalciferol (Vitamin D3) 5,000 units PO DAILY 11/27/19 11/28/19 History Furosemide [Furosemide 40MG tAB] 40 mg PO DAILY 11/27/19 11/28/19 History Gabapentin 800 mg PO QID 11/27/19 11/28/19 History Levothyroxine Sodium 50 mcg PO DAILY 11/27/19 11/28/19 History [Levothyroxine 50mcg (0.05mg) Tab] Metformin HCl 500 mg PO BID 11/27/19 11/28/19 History Methadone HCl [Methadone 10mg 10 mg PO QID 11/27/19 11/28/19 History Tablet] Ondansetron HCl [Zofran 8mg Tab*] 8 mg PO TIDP PRN 11/27/19 11/28/19 History carvediloL [Carvedilol 3.125mg Tab] 3.125 mg PO BID 11/27/19 11/28/19 History Fluoxetine HCl 40 mg PO DAILY 11/28/19 11/28/19 History Pantoprazole Sodium [Protonix 40mg 40 mg PO DAILY 11/28/19 11/28/19 History tablet] Azithromycin 250 mg PO DAILY #4 tab 11/30/19 Rx glipiZIDE [Glucotrol 5mg tablet] 5 mg PO DAILY #30 tab 11/30/19 Rx predniSONE [Deltasone 10mg tablet] 10 mg PO DAILY 5 Days #5 tab 11/30/19 Rx Prescriptions/Medication Reconciliation: New predniSONE [Deltasone 10mg tablet] 10 mg PO DAILY 5 Days #5 tab glipiZIDE [Glucotrol 5mg tablet] 5 mg PO DAILY #30 tab Azithromycin 250 mg PO DAILY #4 tab Continued Furosemide [Furosemide 40MG tAB] 40 mg PO DAILY Ondansetron HCl [Zofran 8mg Tab*] 8 mg PO TIDP PRN PRN Reason: Nausea Albuterol Sulfate [Albuterol Sulfate 2.5mg/0.5ml Neb] 2.5 mg IH QID PRN PRN Reason: Shortness Of Breath Gabapentin 800 mg PO QID Amlodipine Besylate [Norvasc 10mg tablet] 10 mg PO DAILY Methadone HCl [Methadone 10mg Tablet] 10 mg PO QID Cholecalciferol (Vitamin D3) 5,000 units PO DAILY carvediloL [Carvedilol 3.125mg Tab] 3.125 mg PO BID Aspirin [Aspirin 81mg chewable tab] 81 mg PO DAILY Metformin HCl 500 mg PO BID Levothyroxine Sodium [Levothyroxine 50mcg (0.05mg) Tab] 50 mcg PO DAILY Fluoxetine HCl 40 mg PO DAILY Pantoprazole Sodium [Protonix 40mg tablet] 40 mg PO DAILY - Problem Reconciliation Problems Reviewed?: Yes
== END 2019-11-30 11:43 | disposition home or self-care (01) ==
LOC: 2ND 14:31 → ER 14:31 → 2ND 19:06
PROVIDERS: ADMIT Family Medicine; ATTEND Family Medicine
DX: Z88.2 Allergy status to sulfonamides; Z79.82 Long term (current) use of aspirin; E11.69 Type 2 diabetes mellitus with other specified complication; I51.89 Other ill-defined heart diseases; E27.1 Primary adrenocortical insufficiency; Z79.51 Long term (current) use of inhaled steroids; J98.4 Other disorders of lung; Z88.8 Allergy status to other drugs, medicaments and biological substances; Z87.39 Personal history of other diseases of the musculoskeletal system and connective tissue; G89.29 Other chronic pain; Z79.899 Other long term (current) drug therapy; Z91.041 Radiographic dye allergy status; Z85.89 Personal history of malignant neoplasm of other organs and systems; I73.9 Peripheral vascular disease, unspecified; I10 Essential (primary) hypertension; J20.9 Acute bronchitis, unspecified; J44.1 Chronic obstructive pulmonary disease with (acute) exacerbation; Z85.42 Personal history of malignant neoplasm of other parts of uterus
CPT/HCPCS: 36415; 71010; 71045; 80048; 80053; 82803; 82962; 83605; 84484; 85007; 85025; 87040; 87275; 87276; 93005; 94640; 94761; 96365; 96375; 99285; G0378; J0456; J2405

== ENCOUNTER 2022-07-07 00:35 | Observation (INO) | payer MEDICARE, SELFPAY ==
[2022-07-07] VITALS (14 sets, daily range): BP systolic 103–166; BP diastolic 51–98; PULSE 65–96; RESP 14–20; TEMP 36.4–37.4; O2SAT 96–99; BMI 37.0; BMI 39.0
--- NOTE | 2022-07-07 00:21 | ECG_ITS ---
APPROVED REPORT Exam: Resting ECG HR:80 bpm ECG Measurements Heart Rate 80 AXES WA 205 P 69 QRSd 114 QRS -6 QT 352 T 35 QTc 389 Conclusion SINUS RHYTHM INCOMPLETE RIGHT BUNDLE BRANCH BLOCK [90+ ms QRS DURATION, TERMINAL R IN V1/V2, 40+ ms S IN I/aVL/V4/V5/V6] NONSPECIFIC T-WAVE ABNORMALITY BORDERLINE ECG WARNING: DATA QUALITY MAY AFFECT INTERPRETATION UNCONFIRMED REPORT Electronically signed by : Nuno Moreno MD 07/08/2022 06:57:44
--- NOTE | 2022-07-07 00:25 | XR_ITS ---
PROCEDURE INFORMATION: Exam: XR Chest Exam date and time: 07/07/2022 12:51 AM Age: 66 years old Clinical indication: Sternal or substernal pain; Prior surgery; Surgery type: Loop recorder; Additional info: Cp TECHNIQUE: Imaging protocol: Radiologic exam of the chest. Views: 1 view. COMPARISON: CR XR CHEST PORTABLE 11/28/2019 6:08 AM FINDINGS: Tubes, catheters and devices: Precordial loop recorder. Lungs: Reticular opacities in the left mid lung may reflect pneumonitis. Pleural spaces: Unremarkable. No pleural effusion. No pneumothorax. Heart/Mediastinum: Moderate cardiomegaly. Bones/joints: Unremarkable. IMPRESSION: Left mid lung reticular opacities may reflect pneumonitis. Stable moderate cardiomegaly.
[2022-07-07 00:35] LABS: Coronavirus 19, PCR Not Detected (NotDetected); Influenza A, PCR Not Detected (NotDetected); Influenza B, PCR Not Detected (NotDetected)
--- NOTE | 2022-07-07 00:50 | HMH.EDCP ---
Discharge Plan Disposition Patient Disposition: Admitted as Observation Chief Complaint: Chest Pain Prescriptions Prescriptions: No Action metformin 500 MG tablet 500 mg PO BID ondansetron HCl 8 MG tablet 8 mg PO TIDP PRN (Reason: Nausea) methadone 10 MG tablet 10 mg PO QID Label Comments: TAKE 1 TABLET 4 TIMES EACH DAY carvedilol 3.125 MG tablet 3.125 mg PO BID Label Comments: TAKE 1 TABLET 2 TIMES EACH DAY WITH FOOD gabapentin 800 MG tablet 800 mg PO QID Label Comments: TAKE 1 TABLET 4 TIMES EACH DAY amlodipine 10 MG tablet 2.5 mg PO DAILY levothyroxine 50 MCG tablet 50 mcg PO DAILY aspirin 81 MG tablet,chewable 81 mg PO DAILY albuterol sulfate 2.5 MG/0.5 ML solution for nebulization 2.5 mg IH QID PRN (Reason: Shortness Of Breath) Cholecalciferol (Vitamin D3) 5,000 UNITS tablet 5,000 units PO DAILY pantoprazole 40 MG tablet,delayed release (DR/EC) 40 mg PO DAILY fluoxetine 20 MG capsule 40 mg PO DAILY Rx Instructions: TAKES 2 20MG CAPSULES quetiapine 25 mg tablet 25 mg PO HS atorvastatin 40 mg tablet 40 mg PO HS venlafaxine 75 mg tablet 75 mg PO BID clopidogrel 75 mg tablet 75 mg PO DAILY bisoprolol fumarate 5 mg tablet 2.5 mg PO DAILY Label Comments: take one-half tablet (2.5 mg) by oral route once daily Levemir FlexTouch U-100 Insuln 100 unit/mL (3 mL) insulin pen 25 unit SQ HS Jardiance 25 mg tablet 25 mg PO DAILY Label Comments: take 1 tablet (25 mg) by oral route once daily in the morning glipizide 5 MG tablet 5 mg PO DAILY Discharge ED Provider: Maik Mcdaniels Chest Pain HPI General Chief Complaint: Chest Pain Stated Complaint: N/V and DAS Time Seen by Provider: 07/07/22 00:50 Mode of Arrival: EMS Source of Information: Patient, EMS and Medical Record Limitations: No Limitations Description of Symptoms (Recalled from ER Triage Doc. by RN): pt c/o DAS, body aches,midsternal chest pain, n/v x 2 days. was exposed to covid last week History of Present Illness HPI narrative: progressive chest pain over the last few days - hx of ht dis- has exposure to covid-19 - MD complaint: chest pain indicative of cardiac Onset (ago): day(s) Duration: intermittent Activity at onset: during rest Pain location: left chest Severity: moderate Quality: aching Associated symptoms: dyspnea Risk Factors for CAD: Hypertension, Family Hx of CAD and Diabetes Treatments prior to or on arrival for Cardiac Chest Pain: aspirin JUANI Score for Non-Stemi Age of Patient: 60-69 years old Heart Rate: 70-89 bpm Systolic Blood Pressure: 100-119 mmHg Serum Creatinine: 0.40-0.79 mg/dl CHF Killip Class: I-No CHF Other Risk Factors: None Non-Stemi Risk Score: 114 Related Data Prior Cardiac Testing/Procedures: Stenting Home Medications Medication Instructions Recorded Confirmed Cholecalciferol (Vitamin D3) 5,000 units PO DAILY Supplement 11/27/19 07/07/22 albuterol sulfate 2.5 mg/0.5 mL 2.5 mg IH QID PRN Shortness Of 11/27/19 07/07/22 solution for nebulization Breath amlodipine 10 mg tablet 2.5 mg PO DAILY Hypertension 11/27/19 07/07/22 aspirin 81 mg chewable tablet 81 mg PO DAILY HEART HEALTH 11/27/19 07/07/22 carvedilol 3.125 mg tablet 3.125 mg PO BID Hypertension 11/27/19 07/07/22 gabapentin 800 mg tablet 800 mg PO QID Pain 11/27/19 07/07/22 levothyroxine 50 mcg tablet 50 mcg PO DAILY HYPOTHYROIDISM 11/27/19 07/07/22 metformin 500 mg tablet 500 mg PO BID Diabetes 11/27/19 07/07/22 methadone 10 mg tablet 10 mg PO QID Pain 11/27/19 07/07/22 ondansetron HCl 8 mg tablet 8 mg PO TIDP PRN Nausea 11/27/19 07/07/22 fluoxetine 20 mg capsule 40 mg PO DAILY Depression 11/28/19 07/07/22 pantoprazole 40 mg tablet,delayed 40 mg PO DAILY ACID REFLUX 11/28/19 07/07/22 release atorvastatin 40 mg tablet 40 mg PO HS High cholesterol 07/07/22 07/07/22 bisoprolol fumarate 5 mg
[2022-07-07 00:53] LABS: Basophils % 0.3 % (0.1-2.0); Eosinophils # 0.3 K/mm3 (0.0-0.4); Eosinophils % 2.1 % (0.1-12.0); Hematocrit 34.7 % (37.0-47.0); Hemoglobin 10.2 g/dL (12.2-16.2); Lymphocytes # 2.1 K/mm3 (0.7-4.5); Lymphocytes % 14.4 % (10-50); Mean Corpuscular HGB Conc 29.5 g/dL (31.8-35.4); Mean Corpuscular Hemoglobin 27.1 pg (27.0-31.2); Mean Corpuscular Volume 91.9 fl (81-99); Mean Platelet Volume 8.8 fl (7.4-10.4); Monocytes # 0.3 K/mm3 (0.1-1.0); Monocytes % 2.2 % (1.7-9.3); Neutrophils # 11.7 K/mm3 (1.8-7.8); Neutrophils % 81.1 % (37.0-80.0); Platelet Count 460 K/mm3 (142-424); Red Blood Count 3.78 M/mm3 (4.20-5.40); Red Cell Distribution Width 20.6 % (11.5-17.5); White Blood Count 14.5 K/mm3 (4.8-10.8)
[2022-07-07 00:58] LABS: Chloride 101 mmol/L (98-107); Potassium 4.8 mmoL/L (3.5-5.1); Sodium 140 mmol/L (136-145)
[2022-07-07 01:01] LABS: Amylase 60 U/L (30-110); Anion Gap 12.8 mEq/L (5-15); Blood Urea Nitrogen 9 mg/dl (7-17); Calcium 8.5 mg/dl (8.4-10.2); Carbon Dioxide 31 mmol/L (22.0-30.0); Creatinine Clearance Estimated 77 mL/min (50-200); Estimated Glomerular Filt Rate 101 ml/min (>60); GFR (African American) 122 ML/MIN (>60); Glucose 136 mg/dl (74-100); Lipase 45 U/L (23-300)
[2022-07-07 01:05] LABS: Lactic Acid 0.6 mmol/L (0.7-2.1)
[2022-07-07 01:26] LABS: Troponin I < 0.01 ng/ml (0.00-0.034)
--- NOTE | 2022-07-07 02:17 | PC.NURSE ---
0208- speaking to [facility] for admission.
--- NOTE | 2022-07-07 02:17 | PC.NURSE ---
House notified for need of bed assignment at this time.
--- NOTE | 2022-07-07 03:02 | CA_ITS ---
APPROVED REPORT EXAM: Comprehensive 2D, Doppler, and color-flow Echocardiogram Geospatial Information Scientist: Morenita Bassett CRT Ht: 4 ft 11 in Wt: 190lbs BSA: 1.80 BP: 117/98 mmHg Indications: Chest Pain, COPD, Murmur, Diabetes,home o2 2D Dimensions LVOT 1.84 cm (M/F) 1.5-2.5 LA Volume 38.70 mL LA Volume Index 21.50 mL/m2 (M/F) 16-34 M-Mode Dimensions RVDd 3.35 cm (0.9-2.6) LA Diam 4.61 cm (1.9-4.0) LVDd 5.03 cm (3.5-5.7) Ao Diam 3.35 cm (2.0-3.7) LVDs 3.09 cm (3.5-5.7) IVSd 1.22 cm (0.6-1.1) PWd 1.07 cm (0.6-1.1) EF (Teich) 68.60% FS 38.60% EDV (Teich) 119.90 mL TAPSE 2.33 (<1.7) ESV (Teich) 37.60 mL LV Diastology E Decel Time 207.00 (160-240 msec) E/A Ratio 1.18 MED E' 10.10 (< 7 cm/sec) MED A' 12.00 cm/s E'/MED E' Ratio 10.68 (>14) LAT E' 10.40 (<10 cm/sec) LAT A' 14.00 cm/s E/LAT E' Ratio 10.38 (>14) Aortic Valve AO Peak GR. 9.50 mmHg Mitral Valve MV A Velocity 91.00 (40-130 cm/s) E/A Ratio 1.18 MV Decel. Time 207.00 (160-240 ms) Pulmonary Valve PV Peak Velocity 157.00 (50-150 cm/s) Tricuspid Valve TR P. Velocity 273.00 cm/s RAP Estimate 10.00 mmHg RVSP 39.90 mmHg Left Ventricle Left atrium is mildly enlarged, left ventricle is normal size, estimated ejection fraction 55% with no regional wall motion abnormality, diastolic parameters are inconclusive. Right Ventricle Right atrium and right ventricle are mildly enlarged with normal contractility. Aortic Valve Aortic valve is thickened and calcified leaflet coronary display good mobility there is no aortic stenosis or aortic insufficiency. Mitral Valve Mitral valve leaflets are minimally thickened, there is mild mitral regurgitation. Tricuspid Valve Tricuspid valve grossly normal, there is mild tricuspid regurgitation, tricuspid regurgitation jet velocity is inadequate for calculation of the right ventricular systolic pressure. Pulmonic Valve Pulmonic valve is poorly visualized. Great Vessels Aortic root is normal size. Inferior vena cava is normal size with normal inspiratory collapse. Pericardium No significant pericardial effusion noted. Conclusion 1. Mild biatrial enlargement, normal left ventricular size, estimated ejection fraction 55% with no regional wall motion abnormality, diastolic parameters are inconclusive. 2. Mildly enlarged right ventricle with normal contractility. 3. Mild mitral and tricuspid regurgitation. 4. No significant pericardial effusion noted. 5. Inferior vena cava is normal size with normal inspiratory collapse. Electronically signed by : Simone Mccullough MD 07/07/2022 10:05:13
--- NOTE | 2022-07-07 03:13 | PC.NURSE ---
PT ARRIVED TO FLOOR VIA WHEEL CHAIR AT THIS TIME
--- NOTE | 2022-07-07 05:00 | PC.NURSE ---
pt admitted this shift, pt complains of chest and medicated with morphine 4mg with some relief, pt complains of headache as well, pt has voiced about being sent to [place] to see her industrial safety and health technician there, pt describes chest as crushing and radiates across chest and into jaw, telemetry reveals normal sinus rythm, troponin less than 0.01, VSS, pt is alert and oriented x4, no edema, 02 sats 98% on 3L pnc, lung sounds clear and diminished, no other issues or concerns noted at this time
[2022-07-07 06:34] LABS: POC Glucose,Bedside 106 (70-110)
[2022-07-07 06:47] LABS: Basophils # 0.1 K/mm3 (0-0.2); Basophils % 0.7 % (0.1-2.0); Eosinophils # 0.2 K/mm3 (0.0-0.4); Eosinophils % 1.8 % (0.1-12.0); Hematocrit 31.7 % (37.0-47.0); Hemoglobin 9.6 g/dL (12.2-16.2); Lymphocytes # 3.5 K/mm3 (0.7-4.5); Lymphocytes % 28.4 % (10-50); Mean Corpuscular HGB Conc 30.4 g/dL (31.8-35.4); Mean Corpuscular Hemoglobin 27.4 pg (27.0-31.2); Mean Corpuscular Volume 90.1 fl (81-99); Mean Platelet Volume 9.4 fl (7.4-10.4); Monocytes # 0.7 K/mm3 (0.1-1.0); Monocytes % 5.8 % (1.7-9.3); Neutrophils # 7.7 K/mm3 (1.8-7.8); Neutrophils % 63.2 % (37.0-80.0); Platelet Count 437 K/mm3 (142-424); Red Blood Count 3.52 M/mm3 (4.20-5.40); Red Cell Distribution Width 20.4 % (11.5-17.5); White Blood Count 12.2 K/mm3 (4.8-10.8)
[2022-07-07 07:09] LABS: Anion Gap 9.5 mEq/L (5-15); Blood Urea Nitrogen 9 mg/dl (7-17); Calcium 8.3 mg/dl (8.4-10.2); Carbon Dioxide 29 mmol/L (22.0-30.0); Chloride 104 mmol/L (98-107); Chol/HDL Ratio 2.4 (1-3.5); Cholesterol 90 mg/dl (140-200); Creatinine Clearance Estimated 81 mL/min (50-200); Estimated Glomerular Filt Rate 101 ml/min (>60); GFR (African American) 122 ML/MIN (>60); Glucose 99 mg/dl (74-100); HDL Cholesterol 37 mg/dl (40-60); Magnesium 1.6 mg/dl (1.6-2.3); Potassium 4.5 mmoL/L (3.5-5.1); Sodium 138 mmol/L (136-145); Triglycerides 96 mg/dl (30-150); VLDL Cholesterol 19 mg/dL (0-40)
[2022-07-07 07:20] LABS: Direct LDL Cholesterol 35.36 mg/dL (100-129)
--- NOTE | 2022-07-07 08:20 | P.CONPHA_ITS ---
[facility] Pharmacy VTE Monitoring Patient Demographics Admission date: 07/07/22 Report Date: 07/07/22 Time: 08:20 Patient Allergies Cephalosporins Allergy (Verified 11/28/19 07:32) Unknown allergy reaction Iodinated Contrast Media Allergy (Verified 11/28/19 07:32) Unknown allergy reaction meperidine Allergy (Verified 11/28/19 07:32) Unknown allergy reaction NSAIDS (Non-Steroidal Anti-Inflamma Allergy (Verified 11/28/19 07:32) Unknown allergy reaction Sulfa (Sulfonamide Antibiotics) Allergy (Verified 11/28/19 07:32) Unknown allergy reaction enoxaparin [From Lovenox] Adverse Reaction (Verified 11/28/19 07:32) Unknown allergy reaction nalbuphine Adverse Reaction (Verified 11/28/19 07:32) Unknown allergy reaction promethazine Adverse Reaction (Verified 11/28/19 07:32) Unknown allergy reaction Height: 1.52 m Weight: 90.2 kg Current Active Problems (Updated 07/07/22 @ 04:24 by Michelle Barajas RN) Chest pain (Acute) VTE Risk Labs: VTE Related Lab Results Hgb 9.6 g/dL (12.2-16.2) L 07/07/22 06:30 Hct 31.7 % (37.0-47.0) L 07/07/22 06:30 Plt Count 437 K/mm3 (142-424) H 07/07/22 06:30 BUN 9 mg/dl (7-17) 07/07/22 06:30 Creatinine 0.60 mg/dl (0.52-1.04) 07/07/22 06:30 Estimated Creat Clear 81 mL/min (50-200) 07/07/22 06:30 Was VTE Risk Assessment Performed: Yes VTE Score: 10 VTE Risk Level: Moderate Risk Prophylaxis VTE Prophylaxis Ordered?: Yes Types of VTE Prophylaxis: TEDS Knee High Location of Applied Device: Bilateral Lower Extremeties
--- NOTE | 2022-07-07 08:41 | HMH.PHAINT1 ---
Pharmacy Intervention Comments: MEDICATION RECONCILIATION COMPLETED ON PATIENT USING EXTERNAL FILL HISTORY FROM PHARMACY. -ALICE BURT, BLAINED
[2022-07-07 09:40] LABS: Troponin I < 0.01 ng/ml (0.00-0.034)
--- NOTE | 2022-07-07 09:41 | EXP.HP ---
History of Present Illness *Admission Date: 07/07/22 *Reason for visit:: chest pain *History of present illness: Ms. Cooney is a 66-year-old female who states she has been feeling poorly for the past few days. She said 2 days ago she was due to have surgery for cataract removal and started having nausea and vomiting. She then subsequently developed a cough and chest pain that was radiating to her jaw. She became short of breath. She began having body aches, a headache, and neck pain. She thinks she was running a fever. She presented to the emergency room for further evaluation and treatment. She states an ambulance had to be called and she begged them to take her to [facility], which is where her physicians are located. She states they had to take her to the nearest hospital. Her white blood cell count was found to be elevated. Her CMP was relatively unremarkable. Her troponins have been negative. Her COVID test was negative. She had a chest x-ray showing left midlung reticular opacities reflecting pneumonitis as well as stable moderate cardiomegaly. She was admitted and cardiology was consulted. An echo was also ordered. [facility] Medical History (Updated 07/07/22 @ 20:50 by Ravindra Villatoro MD) Anemia Arrhythmia Asthma Cataract COPD (chronic obstructive pulmonary disease) Diabetes DVT (deep venous thrombosis) Endometrial cancer Gastroparesis GERD (gastroesophageal reflux disease) GI bleed Heart attack History of anemia History of left heart catheterization (LHC) History of lupus HTN (hypertension) Kidney disease MRSA (methicillin resistant Staphylococcus aureus) Oxygen dependent Rotator cuff impingement syndrome SVT (supraventricular tachycardia) Thyroid disease Surgical History History of carpal tunnel surgery History of cholecystectomy History of colonoscopy History of esophagogastroduodenoscopy (EGD) History of hysterectomy History of Amado fundoplication History of right heart catheterization (RHC) History of splenectomy Family History Family history of bleeding disorder Family history of kidney disease Family history of cancer Family history of asthma Family history of diabetes mellitus Family history of anemia Family history of thyroid disease Social History Smoking Status: Never smoker alcohol intake: never current occupational status: retired Travel in the last 8 weeks: None household members: none housing: house lives independently: Yes marital status: education level: college diet: diabetic caffeine: Yes Review of Systems Constitutional Constitutional: Reports body ache(s), Reports chills, Reports fever(s), Reports headache(s) and Reports weakness Eyes Eyes: Denies blurry vision and Denies diplopia ENT Ears, Nose, Mouth, and Throat: Reports headache(s), Reports nasal congestion and Reports sore throat *Cardiovascular Cardiovascular: Reports chest pain, Reports dyspnea and Reports radiating jaw, neck or arm pain *Respiratory Respiratory: Reports cough, Reports dyspnea and Reports wheezing *Gastrointestinal Gastrointestinal: Reports abdominal pain, Denies loose stools, Reports nausea and Reports vomiting *Genitourinary Genitourinary: Denies difficulty voiding and Denies dysuria *Musculoskeletal Musculoskeletal: Reports myalgias *Neurologic Neurologic: Reports headache(s) and Reports weakness Allergic/Immunologic Allergic/Immunologic: Reports wheezing Meds Home Medications and Allergies Home Medications Medication Instructions Recorded Confirmed Type aspirin 81 mg chewable tablet 81 mg PO DAILY HEART HEALTH 11/27/19 07/07/22 History gabapentin 800 mg tablet 800 mg PO QID Pain 11/27/19 07/07/22 History levothyroxine 50 mcg tablet 50 mcg PO DAILY HYPOTHYROIDISM 11/27/19 07/07/22 History m
--- NOTE | 2022-07-07 11:02 | PC.NURSE ---
Spoke with Romario and stated that it was fine to put in a cardiac diet for pts to eat. Also addressed that pts BP was high and took BP medication at home. She did one time dose.
--- NOTE | 2022-07-07 11:10 | PC.NURSE ---
Called [facility] to let them know about neb treatment ordered
--- NOTE | 2022-07-07 11:24 | PC.NURSE ---
RESP CARE NOTE: PATIENT SPO2 AT 99% ON 3 LPM. PATIENT STATES SHE IS ON 2 LPM NC AT HOME. OXYGEN REPLACED AT 2 LPM, PATIENT REFUSES TO TAKE ALL OF NEB WELL, STATES I CAN'T HANDLE ANYMORE OF THIS .
--- NOTE | 2022-07-07 11:37 | EXP.CARD.CON ---
History of Present Illness History of Present Illness Consult date: 07/07/22 Requesting physician: Ravindra Villatoro Consult reason: chest pain Chief complaint: nausea, chest pain, headache Additional Medical History:: CAD Oxygen dependent HTN Chronic pain DM Echo 07/07/2022 Conclusion 1.? Mild biatrial enlargement, normal left ventricular size, estimated ejection fraction 55% with no regional wall motion abnormality, diastolic parameters are inconclusive. 2.? Mildly enlarged right ventricle with normal contractility. 3.? Mild mitral and tricuspid regurgitation. 4.? No significant pericardial effusion noted. 5.? Inferior vena cava is normal size with normal inspiratory collapse History of present illness: 66 year old white female presented to ED with complaint of nausea and vomiting, headache, cough, and chest pain. Reports symptoms started 2 days prior and have continued and worsened. She developed a cough along with symptoms yesterday so thought she better get checked out. Also reports subjective fever. Patient reports she asked ems to take her to [facility] but they would only transport her to the [facility] facility. Labs signifant for WBC 14.5. Serial troponins have been negative. EKG negative for acute ischemic changes. chest xray showed left mid lung reticular opacities may reflext pneumonitis. stable moderate cardiomegaly. Patient reports her director correctional agency is Dr. Brewer at [facility]. Denies chest pain currently. Cough and wheezing noted [facility] Medical History (Updated 07/07/22 @ 11:47 by Suzie Doss APRN) Anemia Arrhythmia Asthma Cataract COPD (chronic obstructive pulmonary disease) Diabetes DVT (deep venous thrombosis) Endometrial cancer Gastroparesis GERD (gastroesophageal reflux disease) GI bleed Heart attack History of anemia History of left heart catheterization (LHC) History of lupus HTN (hypertension) Kidney disease MRSA (methicillin resistant Staphylococcus aureus) Oxygen dependent Rotator cuff impingement syndrome SVT (supraventricular tachycardia) Thyroid disease Surgical History History of carpal tunnel surgery History of cholecystectomy History of colonoscopy History of esophagogastroduodenoscopy (EGD) History of hysterectomy History of Amado fundoplication History of right heart catheterization (RHC) History of splenectomy Family History Family history of bleeding disorder Family history of kidney disease Family history of cancer Family history of asthma Family history of diabetes mellitus Family history of anemia Family history of thyroid disease Social History Smoking Status: Never smoker alcohol intake: never current occupational status: retired Travel in the last 8 weeks: None household members: none housing: house lives independently: Yes marital status: education level: college diet: diabetic caffeine: Yes Review of Systems Constitutional Constitutional: Reports headache(s) and Reports weakness ENT Ears, Nose, Mouth, and Throat: Reports headache(s) *Cardiovascular Cardiovascular: Reports chest pain *Respiratory Respiratory: Reports cough *Neurologic Neurologic: Reports headache(s) and Reports weakness Exam Data for Last 24 hours Vital signs and Labs for Last 24 Hours: Temp Pulse Resp BP Pulse Ox 98.3 F 68 14 166/84 H 99 07/07/22 08:00 07/07/22 11:22 07/07/22 08:00 07/07/22 08:00 07/07/22 11:22 Laboratory Results - last 24 hr 07/07/22 00:25: SARS-CoV-2 (PCR) Not detected, Influenza A Untype (PCR) Not detected, Influenza Type B (PCR) Not detected 07/07/22 00:42: WBC 14.5 H, RBC 3.78 L, Hgb 10.2 L, Hct 34.7 L, MCV 91.9, MCH 27.1, MCHC 29.5 L, RDW 20.6 H, Plt Count 460 H, MPV 8.8, Neut % (Auto) 81.1 H, Lymph % (Auto) 14.4, Morris % (Auto) 2.2, Eos % (Auto) 2.
--- NOTE | 2022-07-07 13:40 | PC.NURSE ---
one unmeasured void
--- NOTE | 2022-07-07 14:52 | CT_ITS ---
FINAL REPORT TECHNIQUE: Axial CT images were performed through the head. Coronal reformatted images were submitted. This study was performed with techniques to keep radiation doses as low as reasonably achievable (ALARA). Individualized dose reduction techniques using automated exposure control or adjustment of mA and/or kV according to the patient's size were employed. CLINICAL HISTORY: DAS FINDINGS: The ventricles are normal in size. There is no evidence of hemorrhage. There is no mass or edema identified. There is no abnormal extra-axial fluid seen. There is minimal mucoperiosteal thickening in the right maxillary sinus. IMPRESSION: No acute intracranial process. Reviewed, Interpreted and Dictated by Trenton Seo MD Transcribed by Danni Catalan Authenticated and [facility]
--- NOTE | 2022-07-07 15:13 | PC.NURSE ---
one unmeasured void
[2022-07-07 16:43] LABS: POC Glucose,Bedside 100 (70-110)
--- NOTE | 2022-07-07 17:33 | PC.NURSE ---
one unmeasured void
[2022-07-07 18:07] LABS: POC Glucose,Bedside 94 (70-110)
[2022-07-07 18:28] LABS: POC Glucose,Bedside 105 (70-110)
--- NOTE | 2022-07-07 18:48 | PC.NURSE ---
Pt is A/ox4. She has complained of her head and neck hurting for most of the day. She has had a few spells of dry heaving, and states that she feels nauseous. We have given zofran multiple times for the nausea. She states that she is allergic to phengran, and has taken compazine, but doesn't remember how she did with it and doesn't want it. She has been given methadone, and morphine for pain. Her BS was 94. She stated that she normally isn't lower then 200. I called luisa and got her fluids changed to dextrose 5 and 1/2 NS 2 50 to try and bring up sugar. We also did a head CT to check and make sure nothing else was wrong. She has ambulated to the bathroom with assist x1. She hasn't eaten today as she has refused, but has been able to keep some water down. She has been chewing ice.
--- NOTE | 2022-07-07 19:21 | ECG_ITS ---
APPROVED REPORT Exam: Resting ECG HR:92 bpm ECG Measurements Heart Rate 92 AXES KS 184 P 64 QRSd 114 QRS -24 QT 396 T 65 QTc 446 Conclusion SINUS RHYTHM BORDERLINE LEFT AXIS DEVIATION [QRS AXIS < -20] MODERATE INTRAVENTRICULAR CONDUCTION DELAY [110+ ms QRS DURATION] NONSPECIFIC T-WAVE ABNORMALITY BORDERLINE ECG UNCONFIRMED REPORT Electronically signed by : Nuno Moreno MD 07/08/2022 06:56:27
--- NOTE | 2022-07-07 20:09 | PC.NURSE ---
spoke with Dr dhillon special education bus driver for Dr Villatoro about pt c/o chest pain of 07/24. orders to give 4mg morphine one time now, pepcid 40 mg Daily start now, and mylanta 30 ml one time now.
[2022-07-08] VITALS (9 sets, daily range): BP systolic 105–143; BP diastolic 50–79; PULSE 56–92; RESP 12–18; TEMP 36.8–37.1; O2SAT 97–99
[2022-07-08 04:19] LABS: POC Glucose,Bedside 104 (70-110)
--- NOTE | 2022-07-08 05:11 | PC.NURSE ---
pt is A&OX4. c/o chest pain X1, medicated per mar with favorable results. c/o DAS and neck pain, medicated per mar. c/o nausea X1, medicated per mar with favorable results. FSBS 84 this am, dextrose 5 1/2 NS infusing at 50 ml/hr. O2 sats 97-100 on 3L NC. CB in reach.
[2022-07-08 06:19] LABS: POC Glucose,Bedside 84 (70-110)
--- NOTE | 2022-07-08 08:43 | EXP.ACUTE.PN ---
Subjective *Date: 07/08/22 *Time: 09:13 Interval history: The patient states she is feeling better today. She had chest pain during the night and had to receive a dose of morphine but states it has improved this morning. Her shortness of breath is improved as well. She was able to eat small amount of breakfast and has had no further vomiting. Medical Exam Vital signs and Labs for Last 24 Hours: Temp Pulse Resp BP Pulse Ox 98.4 F 92 H 18 140/66 99 07/08/22 04:00 07/08/22 04:00 07/08/22 04:00 07/08/22 04:00 07/08/22 04:00 Laboratory Results - last 24 hr 07/07/22 06:30: Troponin I < 0.01 07/07/22 13:32: POC Glucose 94 07/07/22 16:35: POC Glucose 100 07/07/22 18:22: POC Glucose 105 07/07/22 20:47: POC Glucose 104 07/08/22 05:04: POC Glucose 84 I & O for Labs for Last 24 Hours: Intake & Output 07/05/22 07/06/22 07/07/22 07/08/22 11:59 11:59 11:59 11:59 Output Total 0 / 0 0 / 0 Balance 0 / 0 0 / 0 Weight 198 lb 13.711 oz 198 lb 13.711 oz Constitutional: Present no acute distress (Looks much better today) Respiratory: Present wheezes Cardiac: Present Reg Rate and Rhythm GI: Present soft and tenderness (diffuse); Absent distention Extremities: Absent edema Assessment and Plan *Assessment and plan (1) Pneumonia: Status: Acute Category: Medical Code(s): J18.9 - Pneumonia, unspecified organism (2) Chest pain: Status: Acute Category: Medical Code(s): R07.9 - Chest pain, unspecified (3) Nausea and vomiting: Status: Acute Category: Medical Code(s): R11.2 - Nausea with vomiting, unspecified (4) Headache: Status: Acute Category: Medical Code(s): R51.9 - Headache, unspecified (5) Addisons disease: Status: Chronic Category: Medical Code(s): E27.1 - Primary adrenocortical insufficiency (6) Restrictive lung disease: Status: Chronic Category: Medical Code(s): J98.4 - Other disorders of lung (7) Chronic pain: Status: Chronic Category: Medical Code(s): G89.29 - Other chronic pain (8) Diabetes mellitus type 2 in obese: Status: Chronic Category: Medical Code(s): E11.69 - Type 2 diabetes mellitus with other specified complication; E66.9 - Obesity, unspecified (9) Diastolic dysfunction: Status: Chronic Category: Medical Code(s): I51.89 - Other ill-defined heart diseases (10) Oxygen dependent: Status: Chronic Category: Medical Code(s): Z99.81 - Dependence on supplemental oxygen (11) Thyroid disease: Status: Chronic Category: Medical Code(s): E07.9 - Disorder of thyroid, unspecified (12) Kidney disease: Status: Chronic Category: Medical Code(s): N28.9 - Disorder of kidney and ureter, unspecified (13) HTN (hypertension): Status: Chronic Category: Medical Code(s): I10 - Essential (primary) hypertension (14) History of lupus: Status: Chronic Category: Medical (15) COPD (chronic obstructive pulmonary disease): Status: Chronic Category: Medical Code(s): J44.9 - Chronic obstructive pulmonary disease, unspecified (16) Asthma: Status: Chronic Category: Medical Code(s): J45.909 - Unspecified asthma, uncomplicated (17) Chronic pain syndrome: Status: Acute Category: Medical Code(s): G89.4 - Chronic pain syndrome Plan We will continue antibiotics for pneumonia. Patient is improving. Dr. Rm entry - Saw patient, agree with above note.
--- NOTE | 2022-07-08 09:07 | PC.NURSE ---
Tech note: notified nurse of patients consistent oxygen level of 99 on 3 liters nasal cannula and that pt was asking for pain medication.
[2022-07-08 09:17] LABS: Basophils # 0.1 K/mm3 (0-0.2); Basophils % 0.9 % (0.1-2.0); Eosinophils # 0.2 K/mm3 (0.0-0.4); Eosinophils % 1.6 % (0.1-12.0); Hematocrit 32.9 % (37.0-47.0); Hemoglobin 9.8 g/dL (12.2-16.2); Lymphocytes # 4.5 K/mm3 (0.7-4.5); Lymphocytes % 39.5 % (10-50); Mean Corpuscular HGB Conc 29.6 g/dL (31.8-35.4); Mean Corpuscular Hemoglobin 26.7 pg (27.0-31.2); Mean Platelet Volume 9.1 fl (7.4-10.4); Monocytes # 0.8 K/mm3 (0.1-1.0); Monocytes % 7.1 % (1.7-9.3); Neutrophils # 5.8 K/mm3 (1.8-7.8); Neutrophils % 50.9 % (37.0-80.0); Platelet Count 441 K/mm3 (142-424); Red Blood Count 3.66 M/mm3 (4.20-5.40); Red Cell Distribution Width 20.4 % (11.5-17.5); White Blood Count 11.4 K/mm3 (4.8-10.8)
--- NOTE | 2022-07-08 11:25 | PC.NURSE ---
[facility] 120 @ 8180
--- NOTE | 2022-07-08 16:16 | PC.NURSE ---
Tech Note; notified nurse of low blood pressure and request for pain medication during each SRNA check. Patient has been asleep most of the day.
--- NOTE | 2022-07-08 18:21 | PC.NURSE ---
pt hasw been asleep the majority of the afternoon. She arrouses easily but then goes back to sleep. I held five pm medications because of her fatigue. Tolerating o2 on 2lnc. denies any soa. fsbs has been withi normal limits.
--- NOTE | 2022-07-08 18:43 | PC.NURSE ---
Tech note; pt slept majority of the day. No other requests at this time. Call light within reach.
[2022-07-09] VITALS: PULSE 50
[2022-07-09 03:21] VITALS: BP 115/51; PULSE 62; RESP 17; TEMP 36.8; O2SAT 97
[2022-07-09 04:00] VITALS: PULSE 60
[2022-07-09 05:00] VITALS: BMI 38.0
--- NOTE | 2022-07-09 06:00 | PC.NURSE ---
NO ACUTE CHANGES SINCE PREVIOUS ASSESSMENT. PT LUNG SOUNDS REMAIN WHEEZY. REMAINS ON 2L NASAL CANNULA AND IS TOLERATING WELL. AMBULATING INDEPENDENTLY TO THE BATHROOM. HAS C/O BILATERAL SHOULDER PAIN THIS SHIFT AND HAS BEEN MEDICATED PER MAR. VSS. NO C/O CHEST PAIN THIS SHIFT. CALL JIANG WITHIN REACH.
[2022-07-09 08:00] VITALS: BP 128/70; PULSE 60; PULSE 62; RESP 16; TEMP 37.1; O2SAT 97
--- NOTE | 2022-07-09 10:55 | EXP.ACUTE.PN ---
Subjective *Date: 07/09/22 *Time: 12:39 Interval history: Patient states she is feeling better today. Her chest pain has improved. She still feels tight in her chest, but feels like things are breaking up. She slept better last night and was able to eat this morning. She has had no further vomiting. She wants to go home. Medical Exam Vital signs and Labs for Last 24 Hours: Temp Pulse Resp BP Pulse Ox FiO2 98.8 F 62 16 128/70 97 28 07/09/22 08:00 07/09/22 08:00 07/09/22 08:00 07/09/22 08:00 07/09/22 08:00 07/08/22 17:59 I & O for Labs for Last 24 Hours: Intake & Output 07/06/22 07/07/22 07/08/22 07/09/22 11:59 11:59 11:59 11:59 Intake Total 1680 / 1680 Output Total 0 / 0 0 / 0 0 / 0 Balance 0 / 0 0 / 0 1680 / 1680 Weight 198 lb 13.711 oz 198 lb 13.711 oz 193 lb 12.581 oz Microbiology Reports for the Last 24 Hours: Microbiology 07/07/22 00:42 Blood Blood Culture - Preliminary NO GROWTH AFTER 48 HOURS 07/07/22 00:42 Blood Blood Culture - Preliminary NO GROWTH AFTER 48 HOURS Constitutional: Present no acute distress (Looks much better today) Respiratory: Present wheezes Cardiac: Present Reg Rate and Rhythm GI: Present soft and tenderness (diffuse); Absent distention Extremities: Absent edema Assessment and Plan *Assessment and plan (1) Pneumonia: Status: Acute Category: Medical Code(s): J18.9 - Pneumonia, unspecified organism (2) Chest pain: Status: Acute Category: Medical Code(s): R07.9 - Chest pain, unspecified (3) Nausea and vomiting: Status: Acute Category: Medical Code(s): R11.2 - Nausea with vomiting, unspecified (4) Headache: Status: Acute Category: Medical Code(s): R51.9 - Headache, unspecified (5) Addisons disease: Status: Chronic Category: Medical Code(s): E27.1 - Primary adrenocortical insufficiency (6) Restrictive lung disease: Status: Chronic Category: Medical Code(s): J98.4 - Other disorders of lung (7) Chronic pain: Status: Chronic Category: Medical Code(s): G89.29 - Other chronic pain (8) Diabetes mellitus type 2 in obese: Status: Chronic Category: Medical Code(s): E11.69 - Type 2 diabetes mellitus with other specified complication; E66.9 - Obesity, unspecified (9) Diastolic dysfunction: Status: Chronic Category: Medical Code(s): I51.89 - Other ill-defined heart diseases (10) Oxygen dependent: Status: Chronic Category: Medical Code(s): Z99.81 - Dependence on supplemental oxygen (11) Thyroid disease: Status: Chronic Category: Medical Code(s): E07.9 - Disorder of thyroid, unspecified (12) Kidney disease: Status: Chronic Category: Medical Code(s): N28.9 - Disorder of kidney and ureter, unspecified (13) HTN (hypertension): Status: Chronic Category: Medical Code(s): I10 - Essential (primary) hypertension (14) History of lupus: Status: Chronic Category: Medical (15) COPD (chronic obstructive pulmonary disease): Status: Chronic Category: Medical Code(s): J44.9 - Chronic obstructive pulmonary disease, unspecified (16) Asthma: Status: Chronic Category: Medical Code(s): J45.909 - Unspecified asthma, uncomplicated (17) Chronic pain syndrome: Status: Acute Category: Medical Code(s): G89.4 - Chronic pain syndrome Plan Patient is improving. Her white blood cell count has improved. May be able to discharge home today. Saw patient, agree with above note. OK for discharge home today, she has f/u with Robina Downey APRN tomorrow.
[2022-07-09 12:00] VITALS: BP 141/75; PULSE 60; PULSE 66; RESP 16; TEMP 36.5; O2SAT 99
--- NOTE | 2022-07-09 13:11 | P.CONPHA_ITS ---
Pharmacy Intervention Comments: DISCHARGE MEDICATION COUNSELING PROVIDED. DISCUSSED SHORT-COURSE LEVAQUIN THERAPY. COURSE IS FOR 7 DAYS. RECOMMEND TAKING WITH FOOD, MAY CAUSE UPSET STOMACH, DIARRHEA, NAUSEA, RARE RISK OF TENDON RUPTURE. PATIENT EXPRESSED CONCERN WITH LEVAQUIN DUE TO PAST HISTORY OF MAJOR BLEEDING WHILE ALSO ON WARFA RIN. PATIENT HAS HAD THE LEVAQUIN WHILE HERE AND NO LONGER TAKES WARFARIN, SO CONCERN WAS ADDRESSED. NO FURTHER QUESTIONS AT THIS TIME.
--- NOTE | 2022-07-10 13:19 | CARE MANAGER ---
Contacted patient related to hospital discharge. She states her son is picking up her antibiotic today on the way home from work. She has appt. with Robina Downey on Sunday morning for follow up. She denies any other questions or concerns at this time. ILIANA Dill
--- NOTE | 2022-07-12 09:44 | EXP.DC.SUM ---
General Admission date:: 07/07/22 Discharge date: 07/09/22 HPI HPI HPI: Ms. Cooney is a 66-year-old female who states she has been feeling poorly for the past few days. She said 2 days ago she was due to have surgery for cataract removal and started having nausea and vomiting. She then subsequently developed a cough and chest pain that was radiating to her jaw. She became short of breath. She began having body aches, a headache, and neck pain. She thinks she was running a fever. She presented to the emergency room for further evaluation and treatment. She states an ambulance had to be called and she begged them to take her to [facility], which is where her physicians are located. She states they had to take her to the nearest hospital. Her white blood cell count was found to be elevated. Her CMP was relatively unremarkable. Her troponins have been negative. Her COVID test was negative. She had a chest x-ray showing left midlung reticular opacities reflecting pneumonitis as well as stable moderate cardiomegaly. She was admitted and cardiology was consulted. An echo was also ordered. Hospital Course Hospital Course Hospital Course: The patient was admitted and given an extra dose of Zofran for nausea and vomiting. Cardiology was consulted. Her chest x-ray was showing a left midlung opacity possibly representing pneumonia. Levaquin and aerosols were added. Her methadone was resumed. She was seen in consultation by cardiology. Her echo showed an EF of 55%. Her serial troponins were negative. Cardiology felt her symptoms were more pulmonary related. 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 By 07/08/2022, she was feeling better. She had had chest pain during the night and received some doses of morphine, but it had improved by the morning. Her shortness of breath improved as well. She was able to eat and had no further vomiting. By 07/09/2022, her chest pain had improved. She felt like things were breaking up. She had slept better and was eating well and wanted to go home. Her blood culture showed no growth and her white count had improved. She was stable to be discharged home and will follow up with her PCP. Exam Data for Last 24 hours Vital signs and Labs for Last 24 Hours: Temp Pulse Resp BP Pulse Ox FiO2 97.7 F 66 16 141/75 H 99 28 07/09/22 12:00 07/09/22 12:00 07/09/22 12:00 07/09/22 12:00 07/09/22 12:00 07/08/22 17:59 I & O for Last 24 hours: Intake & Output 07/09/22 07/10/22 07/11/22 07/12/22 11:59 11:59 11:59 11:59 Intake Total 2039 Output Total 0 / 0 Balance 2039 Weight 193 lb 12.581 oz Microbiology Reports for the Last 24 Hours: Microbiology 07/07/22 00:42 Blood Blood Culture - Final NO GROWTH AFTER 5 DAYS 07/07/22 00:42 Blood Blood Culture - Final NO GROWTH AFTER 5 DAYS Narrative: Constitutional Comments: Does not appear to feel well, dry heaving *Routine HEENT Exam Head: Present normocephalic and atraumatic Eye: Present EOMI and PERRL ENT: Present mucous membranes dry *Routine Neck Exam Neck: Present supple and full ROM *Routine Respiratory Exam Respiratory: Present wheezes *Routine Cardiovascular Exam Cardiovascular: Present RRR *Routine Abdominal Exam Abdominal: Present soft, normoactive bowel sounds and tenderness (Diffuse) *Routine Rectal Exam Rectal:: deferred *Routine Genitalia Exam Genitalia:: deferred *Routine Extremities Exam Extremities: Absent cyanosis, clubbing or edema *Routine Skin Exam Skin: Present intact; Absent erythema *Routine Neurological Exam Neurological: Present alert and oriented X3 DS: Diagnosis Discharge Diagnosis (1) Pneumonia: Status: Acute (2) Chest pain: Status: Acute (3) Nausea and vomiting: Status: Acute (4) Headache: Status: Acute (5) Addisons disease: Status: Chroni
== END 2022-07-09 13:55 | disposition home or self-care (01) ==
LOC: ER 01:08 → 2ND 02:48
PROVIDERS: Admitting Provider Family Medicine; Emergency Provider Emergency Medicine; PCP Nurse Practitioner Family; Visit Provider Family Medicine
DX: I25.10 Atherosclerotic heart disease of native coronary artery without angina pectoris (principal); J18.9 Pneumonia, unspecified organism; E27.1 Primary adrenocortical insufficiency; J44.9 Chronic obstructive pulmonary disease, unspecified; Z99.81 Dependence on supplemental oxygen; E11.9 Type 2 diabetes mellitus without complications; G89.4 Chronic pain syndrome; I10 Essential (primary) hypertension; Z20.822 Contact with and (suspected) exposure to COVID-19
CPT/HCPCS: G0378; 36415; 70450; 71045; 80048; 80061; 82150; 82962; 83605; 83690; 83735; 84484; 85025; 87040; 93005; 93306; 94640; 94760; 94761; 99285; C9803; J1956; J2405; U0003; U0005

== ENCOUNTER 2023-12-02 04:01 | Inpatient (IN) | payer MEDICARE, SELFPAY ==
[2023-12-02] VITALS (18 sets, daily range): BP systolic 107–158; BP diastolic 63–96; PULSE 83–105; RESP 15–23; TEMP 36.7–37.2; O2SAT 92–98; BMI 41.2; BMI 45.2
--- NOTE | 2023-12-02 03:53 | XR_ITS ---
PROCEDURE INFORMATION: Exam: XR Chest Exam date and time: 12/02/2023 4:01 AM Age: 68 years old Clinical indication: Condition or disease; Other: Copd; Shortness of breath; Additional info: SOB, copd TECHNIQUE: Imaging protocol: Radiologic exam of the chest. Views: 1 view. COMPARISON: CR XR CHEST PORTABLE 07/07/2022 12:51 AM FINDINGS: Lungs: Chronic interstitial changes. Pleural spaces: Unremarkable. No pleural effusion. No pneumothorax. Heart/Mediastinum: Cardiomegaly. Bones/joints: Unremarkable. IMPRESSION: No acute process identified.
--- NOTE | 2023-12-02 03:54 | ECG_ITS ---
APPROVED REPORT Exam: Resting ECG HR:93 bpm ECG Measurements Heart Rate 93 AXES PA 206 P 66 QRSd 107 QRS -37 QT 357 T 45 QTc 408 Conclusion SINUS RHYTHM LEFT AXIS DEVIATION [QRS AXIS < -30] INCOMPLETE RIGHT BUNDLE BRANCH BLOCK [90+ ms QRS DURATION, TERMINAL R IN V1/V2, 40+ ms S IN I/aVL/V4/V5/V6] ABNORMAL ECG UNCONFIRMED REPORT Electronically signed by : Nuno Moreno MD 12/04/2023 20:15:53
--- NOTE | 2023-12-02 03:56 | ED_ITS ---
Discharge Plan Disposition Patient Disposition: Admitted Chief Complaint: Shortness of Breath/Dyspnea Prescriptions Prescriptions: No Action ondansetron HCl 8 MG tablet 8 mg PO TIDP PRN (Reason: Nausea) methadone 10 MG tablet 10 mg PO QID Patient Comments: TAKE 1 TABLET 4 TIMES EACH DAY gabapentin 800 MG tablet 800 mg PO QID Patient Comments: TAKE 1 TABLET 4 TIMES EACH DAY levothyroxine 50 MCG tablet 50 mcg PO DAILY aspirin 81 MG tablet,chewable 81 mg PO DAILY pantoprazole 40 MG tablet,delayed release (DR/EC) 40 mg PO BID fluoxetine 20 MG capsule 20 mg PO DAILY atorvastatin 40 mg tablet 40 mg PO HS clopidogrel 75 mg tablet 75 mg PO DAILY bisoprolol fumarate 5 mg tablet 2.5 mg PO DAILY Patient Comments: take one-half tablet (2.5 mg) by oral route once daily Levemir FlexTouch U100 Insulin 100 unit/mL (3 mL) insulin pen 50 unit SQ HS Jardiance 25 mg tablet 25 mg PO DAILY Patient Comments: take 1 tablet (25 mg) by oral route once daily in the morning amlodipine 2.5 mg tablet 2.5 mg PO DAILY Patient Comments: take 1 tablet (2.5 mg) by oral route once daily albuterol sulfate [ProAir HFA] 90 mcg/actuation HFA aerosol inhaler 2 puff inhalation Q4HP PRN (Reason: Shortness Of Breath) Patient Comments: inhale 1 - 2 puffs (90 - 180 mcg) by inhalation route every 4 hours as needed escitalopram oxalate 20 mg tablet 20 mg PO DAILY Patient Comments: TAKE ONE TABLET BY MOUTH DAILY insulin aspart U-100 [Novolog FlexPen U-100 Insulin] 100 unit/mL (3 mL) insulin pen 10 sliding scale dose SQ TID Patient Comments: INJECT 10 UNITS UNDER THE SKIN THREE TIMES DAILY WITH MEALS bupropion HCl 150 mg tablet extended release 24 hr 150 mg PO DAILY Patient Comments: TAKE ONE TABLET BY MOUTH EVERY DAY Clinical Impressions Clinical Impression: Pneumonia, Acute exacerbation of chronic obstructive pulmonary disease Respiratory failure Qualifiers: Chronicity: acute on chronic Respiratory failure complication: hypoxia and hypercapnia Qualified Code(s): J96.21 - Acute and chronic respiratory failure with hypoxia; J96.22 - Acute and chronic respiratory failure with hypercapnia Discharge ED Provider: Rafael Borjas Adult [facility] General Chief complaint: Shortness of Breath/Dyspnea Stated complaint: SOA Time Seen by Provider: 12/02/23 04:02 History of Present Illness HPI narrative: 68-year-old female with history of COPD on 2 L nasal cannula at baseline, diabetes, hypertension, hyperlipidemia, coronary artery disease presents with multiple complaints. She reports that she had hypoglycemia this evening. She reports she had chest pain earlier tonight that resolved after nitroglycerin. She woke up with severe respiratory distress, reports difficulty getting air in and out. She was brought in by EMS. She was given 125 Solu-Medrol prior to arrival. She was given DuoNebs in route with improvement in respiratory distress. She reports that she has been feeling more short of breath today. She reports that she is still having the chest pain currently. She reports that she has been having increased pain production and shortness of breath for the last several days as well. Related Data Home Medications Medication Instructions Recorded Confirmed aspirin 81 mg chewable tablet 81 mg PO DAILY HEART HEALTH 11/27/19 12/02/23 gabapentin 800 mg tablet 800 mg PO QID Pain 11/27/19 12/02/23 levothyroxine 50 mcg tablet 50 mcg PO DAILY HYPOTHYROIDISM 11/27/19 12/02/23 methadone 10 mg tablet 10 mg PO QID Pain 11/27/19 12/02/23 ondansetron HCl 8 mg tablet 8 mg PO TIDP PRN Nausea 11/27/19 12/02/23 fluoxetine 20 mg capsule 20 mg PO DAILY Depression 11/28/19 12/02/23 pantoprazole 40 mg tablet,delayed 40 mg PO BID ACID REFLUX 11/28/19 12/02/23 release albuterol sulfate 90 mcg/actuation 2 puff inhalation Q4HP PRN 07/07/22 12/02/23 aerosol inhaler (ProAir HFA) Shortness Of Breath amlodipine 2.5 mg tablet 2.5 mg PO DAILY Hypertension 07/07/22 12/02/23 atorvastatin 40 mg tablet 40 mg PO HS High cholesterol 07/07/22 12/02/23 bisoprolol fumarate 5 mg tablet 2.5 mg PO DAILY Hypertension 07/07/22 12/02/23 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 07/07/22 12/02/23 empagliflozin 25 mg tablet 25 mg PO DAILY Diabetes 07/07/22 12/02/23 (Jardiance) insulin detemir U-100 100 unit/mL 50 unit SQ HS Diabetes 07/07/22 12/02/23 (3 mL) subcutaneous pen (Levemir FlexTouch U-100 Insulin) bupropion HCl 150 mg 24 hr tablet, 150 mg PO DAILY 12/02/23 12/02/23 extended release escitalopram oxalate 20 mg tablet 20 mg PO DAILY 12/02/23 12/02/23 insulin aspart U-100 100 unit/mL 10 sliding scale dose SQ TID 12/02/23 12/02/23 (3 mL) subcutaneous pen (Novolog FlexPen U-100 Insulin aspart) Allergies Allergy/AdvReac Type Severity Reaction Status Date / Time Cephalosporins Allergy Unknown Verified 12/02/23 04:14 allergy reaction Iodinated Contrast Media Allergy Unknown Verified 12/02/23 04:14 allergy reaction meperidine Allergy Unknown Verified 12/02/23 04:14 allergy reaction NSAIDS (Non-Steroidal Allergy Unknown Verified 12/02/23 04:14 Anti-Inflamma allergy reaction Sulfa (Sulfonamide Allergy Unknown Verified 12/02/23 04:14 Antibiotics) allergy reaction enoxaparin [From Lovenox] AdvReac Unknown Verified 12/02/23 04:14 allergy reaction nalbuphine AdvReac Unknown Verified 12/02/23 04:14 allergy reaction promethazine AdvReac Unknown Verified 12/02/23 04:14 allergy reaction PFSH PFSH Disclaimer: The information contained in this section may have been updated after the patient was seen, as this information can be updated by other users. Medical History (Updated 12/02/23 @ 05:15 by Rafael Borjas MD) Anemia Arrhythmia Asthma Cataract COPD (chronic obstructive pulmonary disease) Diabetes DVT (deep venous thrombosis) Endometrial cancer Gastroparesis GERD (gastroesophageal reflux disease) GI bleed Heart attack History of anemia History of ITP History of left heart catheterization (LHC) History of lupus HTN (hypertension) Kidney disease MRSA (methicillin resistant Staphylococcus aureus) Oxygen dependent Rotator cuff impingement syndrome SVT (supraventricular tachycardia) Thyroid disease Surgical History History of carpal tunnel surgery History of cholecystectomy History of colonoscopy History of esophagogastroduodenoscopy (EGD) History of hysterectomy History of [place] fundoplication History of right heart catheterization (RHC) History of splenectomy Family History Family history of bleeding disorder Family history of kidney disease Family history of cancer Family history of asthma Family history of diabetes mellitus Family history of anemia Family history of thyroid disease Social History Smoking Status: Former smoker alcohol intake: never current occupational status: retired Travel in the last 8 weeks: None household members: none housing: house lives independently: Yes marital status: education level: college diet: diabetic caffeine: Yes ROS Obtained: Yes All systems reviewed & no additional complaints except as documented Physical Exam General General appearance: alert and in distress (Respiratory distress) Head Head exam: atraumatic and normocephalic Eye Eye exam: Present normal appearance, PERRL and EOMI ENT ENT exam: Present normal oropharynx and normal external ear exam Neck Neck exam: Present normal inspection and full ROM Chest Chest inspection: Present normal inspection, symmetric chest wall rise and tenderness Respiratory Respiratory exam: Present respiratory distress, wheezes, accessory muscle use and prolonged expiratory phase Cardiovascular Cardiovascular exam: Present regular rate and normal rhythm Abdominal Exam Abdominal exam: Present soft; Absent distention, tenderness or guarding Extremities Exam Extremities exam: Present other (Right shoulder tenderness, stable from prior) Back Exam Back exam: Present normal inspection Neurological Exam Neurological exam: Present alert and oriented X3; Absent motor sensory deficit Psychiatric Psychiatric exam: Present normal affect and normal mood Skin Skin exam: Present warm, dry and normal color Lymphatic Lymphatic Findings: no adenopathy Medical Decision Making Medical Records Medical records reviewed: Yes I reviewed the patient's medical records. Prasad Inquiry Pt receiving controlled substance: No Prasad was queried for this patient: No Vital Signs: 12/02/23 04:01 12/02/23 04:01 12/02/23 04:28 Temperature 98.2 F Temperature Source Oral Pulse Rate 89 97 H Pulse Rate [Left Radial] 95 H Respiratory Rate 23 19 Blood Pressure 141/96 H Blood Pressure [Right Arm] 158/79 H Blood Pressure Mean 111 Blood Pressure Mean [Right Arm] 105 Blood Pressure Source [Right Arm] Automatic Cuff Blood Pressure Position [Right Arm] Sitting 02 Sat by Pulse Oximetry 95 93 L Oxygen Delivery Method Nasal Cannula Oxygen Flow Rate (LPM) 4 3 12/02/23 04:32 Temperature Temperature Source Pulse Rate 105 H Pulse Rate [Left Radial] Respiratory Rate 17 Blood Pressure 107/81 L Blood Pressure [Right Arm] Blood Pressure Mean Blood Pressure Mean [Right Arm] Blood Pressure Source [Right Arm] Blood Pressure Position [Right Arm] 02 Sat by Pulse Oximetry 94 L Oxygen Delivery Method Oxygen Flow Rate (LPM) Lab Data Lab results reviewed: Yes I reviewed the patient's lab results. Lab Results 12/02/23 03:54: VBG pH 7.32, VBG pCO2 57.7 H, VBG pO2 151.8 H, VBG HCO3 29.0, VBG Total CO2 30.8 H, VBG O2 Saturation 99.1 H, VBG Base Excess 2.9 H 12/02/23 04:01: SARS-CoV-2 (PCR) Not detected, Influenza A Untype (PCR) Not detected, Influenza Type B (PCR) Not detected 12/02/23 04:02: WBC 17.1 H, RBC 3.55 L, Hgb 11.5 L, Hct 37.5, MCV 105.4 H, MCH 32.2 H, MCHC 30.6 L, RDW 16.0, Plt Count 316, MPV 9.2, Neut % (Auto) 59.2, Lymph % (Auto) 32.7, [place] % (Auto) 5.1, Eos % (Auto) 2.6, Baso % (Auto) 0.4, Neut # (Auto) 10.1 H, Lymph # (Auto) 5.6 H, [place] # (Auto) 0.9, Eos # (Auto) 0.4, Baso # (Auto) 0.1, Total Counted 100, Neutrophils % (Manual) 57, Lymphocytes % (Manual) 40, Monocytes % (Manual) 1 L, Eosinophils % (Manual) 2, Platelet Estimate Normal, Macrocytosis 1+, Sodium 136, Potassium 4.7, Chloride 103, Carbon Dioxide 34 H, Anion Gap 3.7 L, BUN 7, Creatinine 0.90, Estimated Creat Clear 81, Estimated GFR 63, Est GFR ( Amer) 76, Glucose 153 H, Lactate 1.2, Calcium 8.4, Total Bilirubin 0.4, AST 24, ALT 16, Alkaline Phosphatase 90, Troponin I < 0.01, Total Protein 7.5, Albumin 3.9, Globulin 3.6 H, Albumin/Globulin Ratio 1.1 12/02/23 04:02 12/02/23 04:02 Orders (Tests/Meds): ED MEDICATIONS Generic Name Dose Route Start Last Admin Trade Name Freq PRN Reason Stop Dose Admin Levofloxacin/Dextrose 750 mg in 150 mls @ 100 mls/hr 12/02/23 04:45 Levofloxacin 750mg/150ml Premix IV 12/02/23 06:14 ONCE ONE Nitroglycerin 0.4 mg 12/02/23 04:25 12/02/23 04:29 Nitroglycerin 0.4mg Sl Tablet SL 01/01/24 04:24 0.4 mg Q5MINP PRN Administration Chest Pain Discontinued Medications Generic Name Dose Route Start Last Admin Trade Name Freq PRN Reason Stop Dose Admin Albuterol/Ipratropium 3 ml 12/02/23 03:53 12/02/23 04:26 Ipratropium/Albuterol 3 Ml Neb IH 12/02/23 03:54 3 ml ONCE ONE Administration Aspirin 325 mg 12/02/23 03:53 12/02/23 04:08 Aspirin 325mg Tablet PO 12/02/23 03:54 325 mg ONCE ONE Administration Magnesium Sulfate 2 gm in 50 mls @ 50 mls/hr 12/02/23 03:53 12/02/23 04:08 Magnesium Sulfate 2gm/50ml Premix IV 12/02/23 04:52 50 mls/hr ONCE ONE Administration ORDERS Category Date Time Status CXR --portable [XR chest portable] Stat Exams 12/02/23 03:53 Completed CBC w/Auto Diff [Complete Blood Count Auto Diff] Stat Lab 12/02/23 04:02 Completed CMP [Comprehensive Metabolic Panel] Stat Lab 12/02/23 04:02 Completed Lactic Acid Stat Lab 12/02/23 04:02 Completed Rapid PCR Covid and Flu A/B Stat Lab 12/02/23 04:01 Completed Troponin I Q3H Lab 12/02/23 04:02 Completed Troponin I Q3H Lab 12/02/23 07:00 Ordered Blood Culture Stat Micro 12/02/23 04:50 Received VBG [Venous Blood Gas] Stat RT 12/02/23 03:54 Completed ECG Data Tracing #1: I reviewed this ECG and interpreted as documented below: Sinus rhythm, rate of 93, no significant ST elevation, incomplete right b undle branch block noted. ECG initial impression date: 12/02/23 ECG initial impression time: 03:56 HEART Score History (anamnesis): Moderately suspicious ECG: Non-specific disturbance Age: >65 years Risk factors: Atherosclerosis history Troponin: </= normal limit HEART Score: 6 Medical Decision Narrative: 68-year-old female, presentation complicated by chronic respiratory failure and COPD on 2 L nasal cannula baseline, coronary artery disease, hypertension, hyperlipidemia, obesity, diabetes presents with multiple complaints including chest pain, worsening sputum production and acute shortness of breath.. History was obtained via conversation with patient, EMS. On arrival, patient is afebri le, clinically stable, requiring 3 L nasal cannula to maintain sats greater than 90%., moving all extremities spontaneously. Full physical exam performed and significant for respiratory distress with accessory muscle use, decreased breath sounds bilaterally. Patient was given 3 DuoNebs and 125 Solu-Medrol by EMS prior to arrival Differential includes but is not limited to ACS, pneumonia, COPD exacerbation, COVID, flu. Patient was given full dose aspirin, 2 g IV magnesium 1 additional DuoNeb for symptomatic management and correction of underlying abnormalities. Workup initiated including CBC CMP troponin chest x-ray EKG VBG lactate blood cultures x 2. Patient is sepsis positive. Given she is not hypovolemic or hypotensive, I did not feel that additional IV fluid is indicated at this time. On re-evaluation, patient [remains afebrile, HD stable.] Patient reports significant improvement in respiratory status. Continues to require 3 L nasal cannula. Laboratory workup independently interpreted by me and significant for initial negative troponin, VBG with mild respiratory acidosis. Lactate negative, leukocytosis noted with white count of 17. Imaging independently interpreted by me and significant for right lower lobe linear atelectasis versus opacity when compared to prior chest x-ray. See radiology read for full review of final results. EKG independently interpreted by me and significant for normal sinus rhythm as documented above. Given patient history, exam and workup, patient's presentation most likely represents acute on chronic hypercarbic and hypoxic respiratory failure secondary to pneumonia and COPD exacerbation. Patient was initiated on IV Levaquin for treatment given reported cephalosporin allergy. Interactive discussion was had with the hospitalist on-call for admission. Procedures Risk/Benefits of Procedure(s) Were Explained: Yes Critical Care Critical Care Time Critical Care Time: Yes Attestation: On 12/02/23, the high probability of a clinically significant, sudden or life threatening deterioration of the following system(s) respiratory required my full and direct attention, intervention and personal management. The time I documented below is in addition to time spent performing reported procedures but includes the following listed in this critical care notation. Total Time Total Critical Care Time: 45
[2023-12-02 04:05] LABS: Coronavirus 19, PCR Not Detected (NotDetected); Influenza A, PCR Not Detected (NotDetected); Influenza B, PCR Not Detected (NotDetected)
[2023-12-02] MEDS: ASPIRIN 325MG TABLET 325 MG PO (04:08)
[2023-12-02] MEDS: MAGNESIUM SULFATE IN WATER 2 GM/50 ML PIGGYBACK IV (04:08)
[2023-12-02 04:12] LABS: Basophils # 0.1 K/mm3 (0-0.2); Basophils % 0.4 % (0.1-2.0); Eosinophils # 0.4 K/mm3 (0.0-0.4); Eosinophils % 2.6 % (0.1-12.0); Hematocrit 37.5 % (37.0-47.0); Hemoglobin 11.5 g/dL (12.2-16.2); Lymphocytes # 5.6 K/mm3 (0.7-4.5); Lymphocytes % 32.7 % (10-50); Mean Corpuscular HGB Conc 30.6 g/dL (31.8-35.4); Mean Corpuscular Hemoglobin 32.2 pg (27.0-31.2); Mean Corpuscular Volume 105.4 fl (81-99); Mean Platelet Volume 9.2 fl (7.4-10.4); Monocytes # 0.9 K/mm3 (0.1-1.0); Monocytes % 5.1 % (1.7-9.3); Neutrophils # 10.1 K/mm3 (1.8-7.8); Neutrophils % 59.2 % (37.0-80.0); Platelet Count 316 K/mm3 (142-424); Red Blood Count 3.55 M/mm3 (4.20-5.40); White Blood Count 17.1 K/mm3 (4.8-10.8)
[2023-12-02 04:15] LABS: MANUAL DIFFERENTIAL MANUAL DIFFERENTIAL (MANUAL DIFF)
[2023-12-02 04:16] LABS: Chloride 103 mmol/L (98-107)
[2023-12-02 04:17] LABS: Potassium 4.7 mmoL/L (3.5-5.1); Sodium 136 mmol/L (136-145)
[2023-12-02 04:17] LABS: VBG Base Excess 2.9 mmol/L (-2.4-2.3); VBG Oxygen Saturation 99.1 % (50-70); VBG PH 7.32 mmol/L (7.31-7.41); VBG PO2 151.8 mmol/L (28-40); VBG Total CO2 30.8 mmol/L (23-27)
[2023-12-02 04:19] LABS: VBG PCO2 57.7 mmol/L (35-51)
[2023-12-02 04:19] LABS: Alanine Aminotransferase 16 U/L (12-78); Aspartate Amino Transferase 24 U/L (14-36); Blood Urea Nitrogen 7 mg/dl (7-17); Creatinine Clearance Estimated 81 mL/min (50-200); Estimated Glomerular Filt Rate 63 ml/min (>60); GFR (African American) 76 ML/MIN (>60)
[2023-12-02 04:20] LABS: Albumin Level 3.9 g/dl (3.5-5.0); Albumin/Globulin Ratio 1.1 (1.1-1.8); Alkaline Phosphatase 90 U/L (38-126); Anion Gap 3.7 mEq/L (5-15); Bilirubin,Total 0.4 mg/dl (0.2-1.3); Calcium 8.4 mg/dl (8.4-10.2); Carbon Dioxide 34 mmol/L (22.0-30.0); Globulin 3.6 g/dL (1.3-3.2); Glucose 153 mg/dl (74-100); Total Protein,Serum 7.5 g/dl (6.3-8.2)
[2023-12-02] MEDS: IPRATROPIUM/ALBUTEROL 3 ML NEB IH ×4 (04:26→23:41)
[2023-12-02] MEDS: NITROGLYCERIN 0.4MG SL TABLET 0.400000000000000022 MG SL (04:29)
[2023-12-02 04:32] LABS: Troponin I < 0.01 ng/ml (0.00-0.034)
[2023-12-02 04:43] LABS: Eosinophils % 2 % (0-3); Lymphocytes % 40 % (10-50); Monocytes % 1 % (2-9); Neutrophils % 57 % (42-76); Platelet Estimate Normal; Total Cells Counted 100
[2023-12-02 04:44] LABS: Macrocytosis 1+
[2023-12-02 04:54] LABS: Lactic Acid 1.2 mmol/L (0.7-2.1)
--- NOTE | 2023-12-02 05:00 | PC.NURSE ---
on phone with Hospitalist at this time.
--- NOTE | 2023-12-02 05:05 | PC.NURSE ---
notified refrigeration houseman of admission
--- NOTE | 2023-12-02 05:05 | PC.NURSE ---
OBSERVATION ADMISSION TO 215 WITH DX OF PNA AND SEPSIS TO THE HOSPITALIST.
[2023-12-02] MEDS: LEVOFLOXACIN/D5W 750 MG/150 ML 750 MG/150 ML PIGGYBACK 100 MG IV (05:10)
--- NOTE | 2023-12-02 06:05 | P.HP_ITS ---
History of Present Illness *Admission Date: 12/02/23 *Reason for visit:: COPD exacerbation *History of present illness: 68 year old female presented to the [facility] ED for c/o SOB. PMHX of CAD, COPD, HLD, DM, and GERD. She arrived by EMS and recieved solu-medrol BENCH JEWELER. She reports use of nitroglycerin for chest pain earlier tonight and hypoglycemia. In the ED she was given Dounebs and IV magnesium that improved her respiratory distress. Her workup revealed a leukocytosis of 17, negative troponin, and RLL pneumonia on chest xray. She was started on IV levofloxacin. The ED physician consulted the hospitalist team for further medical management. I admitted the pt to the medical floor. She arrives to the floor in no acute distress. [facility] Disclaimer: The information contained in this section may have been updated after the patient was seen, as this information can be updated by other users. Medical History Anemia Arrhythmia Asthma Cataract COPD (chronic obstructive pulmonary disease) Diabetes DVT (deep venous thrombosis) Endometrial cancer Gastroparesis GERD (gastroesophageal reflux disease) GI bleed Heart attack History of anemia History of ITP History of left heart catheterization (LHC) History of lupus HTN (hypertension) Kidney disease MRSA (methicillin resistant Staphylococcus aureus) Oxygen dependent Rotator cuff impingement syndrome SVT (supraventricular tachycardia) Thyroid disease Surgical History History of carpal tunnel surgery History of cholecystectomy History of colonoscopy History of esophagogastroduodenoscopy (EGD) History of hysterectomy History of Amado fundoplication History of right heart catheterization (RHC) History of splenectomy Family History Family history of bleeding disorder Family history of kidney disease Family history of cancer Family history of asthma Family history of diabetes mellitus Family history of anemia Family history of thyroid disease Social History (Updated 12/02/23 @ 06:20 by Susy Saul RN) Smoking Status: Former smoker alcohol intake: never current occupational status: retired Travel in the last 8 weeks: None household members: none housing: house lives independently: Yes marital status: education level: college diet: diabetic caffeine: Yes Review of Systems *Cardiovascular Cardiovascular: Reports chest pain and Reports dyspnea *Respiratory Respiratory: Reports dyspnea *Gastrointestinal Gastrointestinal: Reports system reviewed and no additional complaints, except as documented *Genitourinary Genitourinary: Reports system reviewed and no additional complaints, except as documented *Musculoskeletal Musculoskeletal: Reports system reviewed and no additional complaints, except as documented *Neurologic Neurologic: Reports system reviewed and no additional complaints, except as documented Meds Home Medications and Allergies Home Medications Medication Instructions Recorded Confirmed Type aspirin 81 mg chewable tablet 81 mg PO DAILY HEART HEALTH 11/27/19 12/02/23 History gabapentin 800 mg tablet 800 mg PO QID FIBROMYALGIA PAIN 11/27/19 12/02/23 History levothyroxine 50 mcg tablet 50 mcg PO DAILY HYPOTHYROIDISM 11/27/19 12/02/23 History methadone 10 mg tablet 10 mg PO 0600,1200,1800,2359 11/27/19 12/02/23 History FIBROMYALGIA PAIN ondansetron HCl 8 mg tablet 8 mg PO TIDP PRN Nausea 11/27/19 12/02/23 History fluoxetine 20 mg capsule 20 mg PO DAILY Depression 11/28/19 12/02/23 History pantoprazole 40 mg tablet,delayed 40 mg PO BID ACID REFLUX 11/28/19 12/02/23 History release amlodipine 2.5 mg tablet 2.5 mg PO DAILY Hypertension 07/07/22 12/02/23 History atorvastatin 40 mg tablet 40 mg PO HS High cholesterol 07/07/22 12/02/23 History bisoprolol fumarate 5 mg tablet 2.5 mg PO DAILY Hypertension 07/07/22 12/02/23 History 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 07/07/22 12/02/23 History empagliflozin 25 mg tablet 25 mg PO DAILY Diabetes 07/07/22 12/02/23 History (Jardiance) albuterol sulfate 90 mcg/actuation 2 puff inhalation Q4HP PRN SOA 12/02/23 12/02/23 History aerosol inhaler (Ventolin HFA) bupropion HCl 150 mg 24 hr tablet, 150 mg PO DAILY 12/02/23 12/02/23 History extended release ergocalciferol (vitamin D2) 1,250 50,000 unit PO WEEKLY Supplement 12/02/23 12/02/23 History mcg (50,000 unit) capsule (Vitamin D2) escitalopram oxalate 20 mg tablet 20 mg PO DAILY Depression 12/02/23 12/02/23 History fluticasone propionate 50 1 spray intranasal BID ALLERGIES 12/02/23 12/02/23 History mcg/actuation nasal spray,suspension guaifenesin 600 mg tablet, 600 mg PO Q12H COUGH/CONGESTION 12/02/23 12/02/23 History extended release 12 hr insulin aspart U-100 100 unit/mL 10 sliding scale dose SQ TID 12/02/23 12/02/23 History (3 mL) subcutaneous pen (Novolog Diabetes FlexPen U-100 Insulin aspart) insulin detemir U-100 100 unit/mL 50 unit SQ HS Diabetes 12/02/23 12/02/23 History (3 mL) subcutaneous pen (Levemir FlexPen) magnesium oxide 400 mg PO DAILY Supplement 12/02/23 12/02/23 History nitroglycerin 0.4 mg sublingual 0.4 mg sublingual Q5MINP PRN Chest 12/02/23 12/02/23 History tablet Pain New Prescriptions to Start Prescriptions: Allergies Allergy/AdvReac Type Severity Reaction Status Date / Time Cephalosporins Allergy Unknown Verified 12/02/23 04:14 allergy reaction Iodinated Contrast Media Allergy Unknown Verified 12/02/23 04:14 allergy reaction meperidine Allergy Unknown Verified 12/02/23 04:14 allergy reaction NSAIDS (Non-Steroidal Allergy Unknown Verified 12/02/23 04:14 Anti-Inflamma allergy reaction pregabalin Allergy Verified 12/02/23 06:23 Sulfa (Sulfonamide Allergy Unknown Verified 12/02/23 04:14 Antibiotics) allergy reaction sumatriptan Allergy Verified 12/02/23 06:23 tizanidine Allergy Verified 12/02/23 06:23 enoxaparin [From Lovenox] AdvReac Unknown Verified 12/02/23 06:23 allergy reaction nalbuphine AdvReac Unknown Verified 12/02/23 04:14 allergy reaction promethazine AdvReac Unknown Verified 12/02/23 04:14 allergy reaction Exam Data for Last 24 hours Vital signs and Labs for Last 24 Hours: Temp Pulse Resp BP Pulse Ox O2 Del Method O2 Flow Rate 98.0 F 99 H 15 131/63 92 L Nasal Cannula 3 12/02/23 05:23 12/02/23 05:30 12/02/23 05:30 12/02/23 05:30 12/02/23 05:30 12/02/23 05:23 12/02/23 05:23 Laboratory Results - last 24 hr 12/02/23 03:54: VBG pH 7.32, VBG pCO2 57.7 H, VBG pO2 151.8 H, VBG HCO3 29.0, VBG Total CO2 30.8 H, VBG O2 Saturation 99.1 H, VBG Base Excess 2.9 H 12/02/23 04:01: SARS-CoV-2 (PCR) Not detected, Influenza A Untype (PCR) Not detected, Influenza Type B (PCR) Not detected 12/02/23 04:02: WBC 17.1 H, RBC 3.55 L, Hgb 11.5 L, Hct 37.5, MCV 105.4 H, MCH 32.2 H, MCHC 30.6 L, RDW 16.0, Plt Count 316, MPV 9.2, Neut % (Auto) 59.2, Lymph % (Auto) 32.7, Barron % (Auto) 5.1, Eos % (Auto) 2.6, Baso % (Auto) 0.4, Neut # ( Auto) 10.1 H, Lymph # (Auto) 5.6 H, Barron # (Auto) 0.9, Eos # (Auto) 0.4, Baso # (Auto) 0.1, Total Counted 100, Neutrophils % (Manual) 57, Lymphocytes % (Manual) 40, Monocytes % (Manual) 1 L, Eosinophils % (Manual) 2, Platelet Estimate Normal, Macrocytosis 1+, Sodium 136, Potassium 4.7, Chloride 103, Carbon Dioxide 34 H, Anion Gap 3.7 L, BUN 7, Creatinine 0.90, Estimated Creat Clear 81, Estimated GFR 63, Est GFR ( Amer) 76, Glucose 153 H, Lactate 1.2, Calcium 8.4, Total Bilirubin 0.4, AST 24, ALT 16, Alkaline Phosphatase 90, Troponin I < 0.01, Total Protein 7.5, Albumin 3.9, Globulin 3.6 H, Albumin/Globulin Ratio 1.1 I & O for Last 24 hours: Intake & Output 11/29/23 11/30/23 12/01/23 12/02/23 23:59 23:59 23:59 23:59 Weight 92.533 kg *Routine HEENT Exam Head: Present normocephalic Eye: Present EOMI ENT: Present mucous membranes moist *Routine Neck Exam Neck: Present full ROM *Routine Respiratory Exam Respiratory: Present wheezes *Routine Cardiovascular Exam Cardiovascular: Present RRR *Routine Abdominal Exam Abdominal: Present soft and normoactive bowel sounds; Absent tenderness *Routine Rectal Exam Rectal:: deferred *Routine Genitalia Exam Genitalia:: deferred *Routine Extremities Exam Extremities: Present full ROM *Routine Skin Exam Skin: Present intact *Routine Neurological Exam Neurological: Present alert and oriented X3 Assessment and Plan *Assessment and plan (1) Acute exacerbation of chronic obstructive pulmonary disease: Status: Acute Category: Medical Code(s): J44.1 - Chronic obstructive pulmonary disease with (acute) exacerbation (2) Pneumonia: Status: Acute Category: Medical Code(s): J18.9 - Pneumonia, unspecified organism (3) Diabetes mellitus type 2 in obese: Status: Chronic Category: Medical Code(s): E11.69 - Type 2 diabetes mellitus with other specified complication; E66.9 - Obesity, unspecified (4) CAD (coronary artery disease): Status: Acute Category: Medical Code(s): I25.10 - Atherosclerotic heart disease of [place] coronary artery without angina pectoris (5) HTN (hypertension): Status: Acute Category: Medical Code(s): I10 - Essential (primary) hypertension (6) HLD (hyperlipidemia): Status: Acute Category: Medical Code(s): E78.5 - Hyperlipidemia, unspecified (7) HTN (hypertension): Status: Chronic Category: Medical Code(s): I10 - Essential (primary) hypertension (8) Hypothyroid: Status: Acute Category: Medical Code(s): E03.9 - Hypothyroidism, unspecified (9) GERD (gastroesophageal reflux disease): Status: Acute Category: Medical Code(s): K21.9 - Gastro-esophageal reflux disease without esophagitis (10) Obesity: Status: Acute Category: Medical Code(s): E66.9 - Obesity, unspecified Plan 68 year old female presented to the [facility] ED for c/o SOB. PMHX of CAD, COPD, HLD, DM, and GERD. She arrived by EMS and recieved solu-medrol BENCH JEWELER. She reports use of nitroglycerin for chest pain earlier tonight and hypoglycemia. In the ED she was given Duonebs and IV magnesium that improved her respiratory distress. Her workup revealed a leukocytosis of 17, negative troponin, and RLL pneumonia on chest xray. She was started on IV levofloxacin. The ED physician consulted the hospitalist team for further medical management. I admitted the pt to the medical floor. She arrives to the floor in no acute distress. Plan as to follow: COPD EXACERBATION PNEUMONIA -Continue IV levofloxacin. -Chest xray reviewed and reveals RLL pneumonia. -Continue IV solu-medrol - leukocytosis of 17. Blood cultures pending -duonebs q 6 hr DM -ssi -A1c pending CAD HTN HLD HYPOTHYROID GERD -tsh pending -continue home medications of amlodipine, aspirin, lipitor, bupropion, plavix, prozac, gabapentin, levothyroxine, methadone, and protonix. OBESITY -complicates all aspects of care FULL CODE DIABETIC DIET DVT: HEPARIN SQ Attending attestation Patient was seen and evaluated at the bedside myself, agree with PETERSON note. COPDE and O2 needs are improving, ok for medsurge, continue current treatment plan
--- NOTE | 2023-12-02 06:08 | PC.NURSE ---
Patient arrived to floor via stretcher from ED at 6:00.
[2023-12-02] MEDS: METHADONE 10MG TABLET 10 MG PO ×4 (06:33→23:17)
[2023-12-02] MEDS: METHYLPREDNISOLONE SOD SUCC 125MG VIAL 60 MG IV ×3 (06:37→23:17)
[2023-12-02 06:51] LABS: POC Glucose,Bedside 209 (70-110)
[2023-12-02] MEDS: ACETAMINOPHEN 325MG TAB 650 MG PO ×2 (06:53→16:09)
[2023-12-02] MEDS: humaLOG 100 UNITS/ML 3ML VIAL (SSI) SQ ×4 (06:54→20:47)
--- NOTE | 2023-12-02 07:08 | PC.NURSE ---
pt refuses bedalarm
[2023-12-02 07:58] LABS: Thyroid Stimulating Hormone 1.54 uIU/mL (0.465-4.68); Troponin I < 0.01 ng/ml (0.00-0.034)
--- NOTE | 2023-12-02 07:58 | CT_ITS ---
PROCEDURE INFORMATION: Exam: CT Chest Without Contrast; Diagnostic Exam date and time: 12/02/2023 8:24 AM Age: 68 years old Clinical indication: Shortness of breath; Prior surgery; Surgery date: 6+ months; Surgery type: Loop recorder. ; Additional info: Chest pain, SOB TECHNIQUE: Imaging protocol: Diagnostic computed tomography of the chest without contrast. Radiation optimization: All CT scans at this facility use at least one of these dose optimization techniques: automated exposure control; mA and/or kV adjustment per patient size (includes targeted exams where dose is matched to clinical indication); or iterative reconstruction. COMPARISON: CR XR CHEST PORTABLE 12/02/2023 4:01 AM FINDINGS: Limitations: The absence of intravenous contrast limits the assessment of vascular structures, lesions and lymphadenopathy. Tubes, catheters and devices: Wireless loop recorder in the left chest wall Trachea: Main airways are patent. Lungs: Patchy and coalescent opacities/architectural distortion in pulmonary apices bilaterally. Pleural spaces: Unremarkable. No pneumothorax. No pleural effusion. Heart: Cardiomegaly attributable to multi cardiac chamber enlargement. Lymph nodes: Multi station mediastinal lymphadenopathy. Vasculature: Aorta is nonaneurysmal. Hyperattenuating material in the coronary tree likely a combination of vascular stents and atherosclerosis. Bones/joints: Chronic appearing compression deformities involving several thoracic vertebral bodies. No acute osseous abnormality. Soft tissues: Unremarkable. IMPRESSION: 1. Patchy and coalescent opacities/architectural distortion in pulmonary apices bilaterally. Findings favored to represent chronic interstitial changes. Superimposed pneumonia is difficult to exclude. 2. Multi station mediastinal lymphadenopathy.
[2023-12-02] MEDS: LEVOTHYROXINE 50MCG (0.05MG) TAB 50 MCG PO (08:48)
[2023-12-02] MEDS: AMLODIPINE 2.5MG TABLET 2.5 MG PO (08:49)
[2023-12-02] MEDS: buPROPion HCL 75 MG TABLET PO ×2 (08:49→20:47)
[2023-12-02] MEDS: BISOPROLOL 5MG TABLET 2.5 MG PO (08:50)
[2023-12-02] MEDS: CITALOPRAM 40MG TABLET 40 MG PO (08:51)
[2023-12-02] MEDS: FLUOXETINE 20MG CAPSULE 20 MG PO (08:51)
[2023-12-02] MEDS: PANTOPRAZOLE 40MG TABLET 40 MG PO ×2 (08:52→20:47)
[2023-12-02] MEDS: GABAPENTIN 800MG TABLET 800 MG PO ×4 (08:53→20:47)
[2023-12-02] MEDS: ASPIRIN 81MG CHEWABLE TABLET 81 MG PO (08:54)
[2023-12-02] MEDS: CLOPIDOGREL 75MG TAB 75 MG PO (08:54)
[2023-12-02] MEDS: MORPHINE 2MG/ML SYRINGE 1 MG IV (08:55)
[2023-12-02] MEDS: HEPARIN SODIUM 5,000 UNIT/ML VIAL 5000 UNIT SQ ×2 (09:15→20:47)
[2023-12-02 10:45] LABS: POC Glucose,Bedside 255 (70-110)
--- NOTE | 2023-12-02 13:11 | PC.NURSE ---
Addendum entered by Elder Kirkland RN 12/02/23 18:29: patient complained of chest pain this morning, no telemetry changes, medicated per DEC. At 1830 Patient began complaining of chest pain again, MD notified and ordered stat EKG, troponin, and additional pain medication. Original Note: Patient remains alert and oriented x4 and VSS. Patient has had a non-productive cough throughout my shift, coarse crackles bilaterally throughout, and audible wheezes. Patient titrated back down to 2L NC, O2 sats in the mid-high 90s.
[2023-12-02 14:29] LABS: Hemoglobin A1C 7.6 % (4.0-6.0)
[2023-12-02 16:56] LABS: POC Glucose,Bedside 307 (70-110)
--- NOTE | 2023-12-02 18:00 | ECG_ITS ---
APPROVED REPORT Exam: Resting ECG HR:90 bpm ECG Measurements Heart Rate 90 AXES AL 192 P 40 QRSd 118 QRS -29 QT 389 T 26 QTc 437 Conclusion SINUS RHYTHM BORDERLINE LEFT AXIS DEVIATION [QRS AXIS < -20] S1-S2-S3 PATTERN, CONSISTENT WITH PULMONARY DISEASE, RVH, OR NORMAL VARIANT INCOMPLETE RIGHT BUNDLE BRANCH BLOCK [90+ ms QRS DURATION, TERMINAL R IN V1/V2, 40+ ms S IN I/aVL/V4/V5/V6] BORDERLINE ECG UNCONFIRMED REPORT Electronically signed by : Nuno Moreno MD 12/04/2023 20:13:45
[2023-12-02] MEDS: KETOROLAC 30MG/ML VIAL 15 MG IV (18:41)
[2023-12-02 20:41] LABS: Troponin I < 0.01 ng/ml (0.00-0.034)
[2023-12-02] MEDS: INSULIN DETEMIR 100 UNIT/ML 3ML FLEXPEN 50 UNIT SQ (20:47)
[2023-12-02] MEDS: ATORVASTATIN 40MG TABLET 40 MG PO (20:47)
[2023-12-03] VITALS (25 sets, daily range): BP systolic 114–174; BP diastolic 60–102; PULSE 60–101; RESP 15–22; TEMP 36.6–37.4; O2SAT 82–98; BMI 45.8
--- NOTE | 2023-12-03 05:13 | PC.NURSE ---
Pt is alert and oriented. Ambulates to the restroom. Pt remains on 2L NC, O2 sat >90%. Lung sounds: wheezing noted. Abdomen soft and nontender. Pt has had no complaints tonight. Call light in reach.
[2023-12-03 06:22] LABS: POC Glucose,Bedside 258 (70-110)
[2023-12-03] MEDS: LEVOFLOXACIN/D5W 750 MG/150 ML 750 MG/150 ML PIGGYBACK 100 MG IV (06:27)
[2023-12-03] MEDS: humaLOG 100 UNITS/ML 3ML VIAL (SSI) SQ ×4 (06:28→20:40)
[2023-12-03] MEDS: LEVOTHYROXINE 50MCG (0.05MG) TAB 50 MCG PO (06:28)
[2023-12-03] MEDS: METHADONE 10MG TABLET 10 MG PO ×2 (06:28→11:03)
[2023-12-03] MEDS: METHYLPREDNISOLONE SOD SUCC 125MG VIAL 60 MG IV (06:28)
[2023-12-03] MEDS: KETOROLAC 30MG/ML VIAL 15 MG IV ×2 (06:30→12:26)
[2023-12-03] MEDS: IPRATROPIUM/ALBUTEROL 3 ML NEB IH (06:36)
[2023-12-03] MEDS: ACETAMINOPHEN 325MG TAB 650 MG PO (07:32)
--- NOTE | 2023-12-03 07:34 | PC.NURSE ---
Pt c/o headache this AM. Medicated per dec.
[2023-12-03 07:56] LABS: Basophils % 0.1 % (0.1-2.0); Eosinophils # 0.2 K/mm3 (0.0-0.4); Hematocrit 32.7 % (37.0-47.0); Hemoglobin 10.4 g/dL (12.2-16.2); Lymphocytes # 2.1 K/mm3 (0.7-4.5); Lymphocytes % 12.6 % (10-50); Mean Corpuscular HGB Conc 31.8 g/dL (31.8-35.4); Mean Corpuscular Hemoglobin 32.6 pg (27.0-31.2); Mean Corpuscular Volume 102.5 fl (81-99); Mean Platelet Volume 9.5 fl (7.4-10.4); Monocytes # 0.5 K/mm3 (0.1-1.0); Monocytes % 2.9 % (1.7-9.3); Neutrophils % 83.4 % (37.0-80.0); Platelet Count 314 K/mm3 (142-424); Red Blood Count 3.19 M/mm3 (4.20-5.40); Red Cell Distribution Width 15.9 % (11.5-17.5); White Blood Count 16.8 K/mm3 (4.8-10.8)
[2023-12-03 07:58] LABS: MANUAL DIFFERENTIAL MANUAL DIFFERENTIAL (MANUAL DIFF)
[2023-12-03 07:59] LABS: Chloride 100 mmol/L (98-107); Potassium 5.1 mmoL/L (3.5-5.1); Sodium 135 mmol/L (136-145)
[2023-12-03 08:02] LABS: Anion Gap 8.1 mEq/L (5-15); Blood Urea Nitrogen 18 mg/dl (7-17); Carbon Dioxide 32 mmol/L (22.0-30.0); Creatinine Clearance Estimated 38 mL/min (50-200); Estimated Glomerular Filt Rate 72 ml/min (>60); GFR (African American) 87 ML/MIN (>60)
[2023-12-03 08:03] LABS: Glucose 254 mg/dl (74-100)
[2023-12-03 08:26] LABS: Lymphocytes % 17 % (10-50); Monocytes % 5 % (2-9); Neutrophils % 78 % (42-76); Total Cells Counted 100
[2023-12-03 08:27] LABS: Anisocytosis 1+; Macrocytosis 1+; Platelet Estimate Normal; RBC Morphology Normal
[2023-12-03] MEDS: ASPIRIN 81MG CHEWABLE TABLET 81 MG PO (08:41)
[2023-12-03] MEDS: AMLODIPINE 2.5MG TABLET 2.5 MG PO (08:41)
[2023-12-03] MEDS: BISOPROLOL 5MG TABLET 2.5 MG PO (08:42)
[2023-12-03] MEDS: CLOPIDOGREL 75MG TAB 75 MG PO (08:42)
[2023-12-03] MEDS: FLUOXETINE 20MG CAPSULE 20 MG PO (08:42)
[2023-12-03] MEDS: buPROPion HCL 75 MG TABLET PO ×2 (08:42→20:40)
[2023-12-03] MEDS: CITALOPRAM 40MG TABLET 40 MG PO (08:42)
[2023-12-03] MEDS: GABAPENTIN 800MG TABLET 800 MG PO ×2 (08:43→12:34)
[2023-12-03] MEDS: PANTOPRAZOLE 40MG TABLET 40 MG PO ×2 (08:43→20:40)
[2023-12-03] MEDS: HEPARIN SODIUM 5,000 UNIT/ML VIAL 5000 UNIT SQ ×2 (08:43→20:39)
--- NOTE | 2023-12-03 08:47 | CA_ITS ---
APPROVED REPORT EXAM: Comprehensive 2D, Doppler, and color-flow Echocardiogram Candy Cooker Helper: Morenita Bassett CRT Ht: 4 ft 11 in Wt: 227lbs BSA: 1.95 BP: 131/63 mmHg Indications: Chest Pain, COPD, Shortness of Breath, Diabetes, Obesity, CAD, Hyperlipidemia, Hypertension/HDD, gerd, pneumonia 2D Dimensions LA Volume 24.50 mL LA Volume Index 12.30 mL/m2 (M/F) 16-34 M-Mode Dimensions RVDd 2.99 cm (0.9-2.6) LA Diam 3.96 cm (1.9-4.0) LVDd 4.95 cm (3.5-5.7) LVDs 3.38 cm (3.5-5.7) IVSd 1.73 cm (0.6-1.1) PWd 0.88 cm (0.6-1.1) EF (Teich) 59.50% FS 31.70% EDV (Teich) 115.50 mL TAPSE 2.40 (<1.7) ESV (Teich) 46.80 mL LV Diastology E Decel Time 150 (160-240 msec) E/A Ratio 1.05 MED A' 11.80 cm/s LAT A' 13.20 cm/s Aortic Valve HEATHER Index 1.61 cm2/m2 AoV Peak Henrik. 162.0 (50-130 cm/s) AI PHT 560.00 ms AO Peak GR. 10.50 mmHg AO Mean GR. 5.40 (<5 mmHg) AO VTI 29.0 (18-25 cm) HEATHER (VTI) 3.21 (2.5-4.5 cm2) Mitral Valve MV E Max Henrik. 104.0 (40-130 cm/s) MV A Velocity 100.0 (40-130 cm/s) E/A Ratio 1.05 MV PHT 44.0 ms Pulmonary Valve PV Peak Velocity 107.0 (50-150 cm/s) Tricuspid Valve TR P. Velocity 185.00 cm/s RAP Estimate 10.00 mmHg RVSP 23.70 mmHg Left Ventricle The left ventricle is normal size. The left ventricular systolic function is normal. The left ventricular ejection fraction is within the normal range. There is normal left ventricular wall thickness. There is mild hypokinesis of the anterior LV wall. The left ventricular diastolic function is normal. LVEF is 55%. Right Ventricle The right ventricle is normal size. The right ventricular systolic function is normal. Atria The left atrium size is normal. The right atrium size is normal. The interatrial septum is not well-visualized. Aortic Valve The aortic valve is mildly thickened. There is no aortic valvular stenosis. Mild aortic regurgitation. Mitral Valve The mitral valve is normal in structure. No evidence of mitral valve stenosis. Mild mitral regurgitation. Tricuspid Valve The tricuspid valve leaflets are thin and pliable. Trace tricuspid regurgitation. RVSP is normal. Pulmonic Valve The pulmonary valve is normal in structure. Trace pulmonic regurgitation. Great Vessels The aortic root is normal in size. The ascending aorta is normal in size. The IVC is not well-visualized. Pericardium There is no pericardial effusion. Other Information Study Quality: Fair Conclusion Normal biventricular systolic function. Mild hypokinesis of the anterior LV wall. Mild MR, mild AI. Electronically signed by : Felisha Michael MD 12/05/2023 11:09:19
--- NOTE | 2023-12-03 09:51 | P.CONS_ITS ---
History of Present Illness History of present illness: Ms. Cooney is a 68-year-old female no significant smoking history, currently diagnosis of asthma along with lupus-like syndrome and interstitial lung disease following at [facility],, hypertension, dyslipidemia presented to the ER complaining of chest pain and respiratory distress pulmonary was called for further evaluation and management. [facility] Disclaimer: The information contained in this section may have been updated after the patient was seen, as this information can be updated by other users. Medical History (Updated 12/03/23 @ 10:53 by Kyle Wharton MD) Acute and chronic respiratory failure with hypoxia Anemia Arrhythmia Asthma Cataract COPD (chronic obstructive pulmonary disease) Diabetes DVT (deep venous thrombosis) Endometrial cancer Fibrosis of lung Gastroparesis GERD (gastroesophageal reflux disease) GI bleed Heart attack History of anemia History of ITP History of left heart catheterization (LHC) History of lupus HTN (hypertension) Kidney disease Lupus disease of lung MRSA (methicillin resistant Staphylococcus aureus) Oxygen dependent Rotator cuff impingement syndrome SVT (supraventricular tachycardia) Thyroid disease Surgical History History of carpal tunnel surgery History of cholecystectomy History of colonoscopy History of esophagogastroduodenoscopy (EGD) History of hysterectomy History of [place] fundoplication History of right heart catheterization (RHC) History of splenectomy Family History Family history of bleeding disorder Family history of kidney disease Family history of cancer Family history of asthma Family history of diabetes mellitus Family history of anemia Family history of thyroid disease Social History (Updated 12/02/23 @ 06:20 by Susy Saul RN) Smoking Status: Former smoker alcohol intake: never current occupational status: retired Travel in the last 8 weeks: None household members: none housing: house lives independently: Yes marital status: education level: college diet: diabetic caffeine: Yes Review of Systems Constitutional Constitutional: Reports anorexia, Reports body ache(s) and Reports fatigue Eyes Eyes: Denies eye discharge, Denies dry eyes, Denies irritation and Denies itchy eyes ENT Ears, Nose, Mouth, and Throat: Denies epistaxis, Denies facial pain, Denies lip swelling and Denies throat swelling *Cardiovascular Cardiovascular: Reports dyspnea and Reports dyspnea on exertion *Respiratory Respiratory: Reports chest congestion, Reports cough, Reports dyspnea, Reports dyspnea on exertion, Reports excessive phlegm production, Denies hemoptysis, Denies pain on inspiration, Denies pain with cough and Reports wheezing *Gastrointestinal Gastrointestinal: Denies abdominal pain, Denies belching and Denies cramping *Musculoskeletal Musculoskeletal: Reports back pain, Reports myalgias and Reports other (No small joint swelling or Pain) *Neurologic Neurologic: Reports system reviewed and no additional complaints, except as documented Psychiatric Psychiatric: Denies homicidal ideation and Denies suicidal ideation Endocrine Endocrine: Reports fatigue and Denies heat intolerance Hematologic/Lymphatic Hematologic/Lymphatic: Denies easy bleeding and Denies lymphadenopathy Allergic/Immunologic Allergic/Immunologic: Denies itchy eyes, Denies lip swelling, Denies throat swelling and Reports wheezing Pulmonology Exam Inpatient Vital signs and Labs for Last 24 Hours: Temp Pulse Resp BP Pulse Ox O2 Del Method O2 Flow Rate 98.1 F 82 18 141/81 H 95 Nasal Cannula 2 12/03/23 08:00 12/03/23 08:00 12/03/23 08:00 12/03/23 08:00 12/03/23 08:00 12/03/23 09:00 12/03/23 09:00 Laboratory Results - last 24 hr 12/02/23 06:37: Hemoglobin A1c 7.6 H 12/02/23 10:37: POC Glucose 255 H 12/02/23 16:47: POC Glucose 307 H* 12/02/23 20:10: Troponin I < 0.01 12/03/23 06:13: POC Glucose 258 H 12/03/23 06:43: Sodium 135 L, Potassium 5.1, Chloride 100, Carbon Dioxide 32 H, Anion Gap 8.1, BUN 18 H D, Creatinine 0.80, Estimated Creat Clear 38, Estimated GFR 72, Est GFR ( Amer) 87, Glucose 254 H, Calcium 9.0 12/03/23 07:40: WBC 16.8 H, RBC 3.19 L, Hgb 10.4 L, Hct 32.7 L, MCV 102.5 H, MCH 32.6 H, MCHC 31.8, RDW 15.9, Plt Count 314, MPV 9.5, Neut % (Auto) 83.4 H, Lymph % (Auto) 12.6, [place] % (Auto) 2.9, Eos % (Auto) 1.0, Baso % (Auto) 0.1, Neut # (Auto) 14.0 H, Lymph # (Auto) 2.1, [place] # (Auto) 0.5, Eos # (Auto) 0.2, Baso # (Auto) 0.0, Total Counted 100, Neutrophils % (Manual) 78 H, Lymphocytes % (Manual) 17, Monocytes % (Manual) 5, Platelet Estimate Normal, RBC Morphology Normal, Anisocytosis 1+, Macrocytosis 1+ I & O for Labs for Last 24 Hours: Intake & Output 11/30/23 12/01/23 12/02/23 12/03/23 23:59 23:59 23:59 23:59 Intake Total 950 / 950 Output Total 200 / 200 0 / 0 Balance 750 / 750 0 / 0 Weight 224 lb 9.6 oz 227 lb 4.8 oz Constitutional: Present moderate distress Head: Present normocephalic and atraumatic ENT: Present normal exam, normal oropharynx and mucous membranes moist Neck: Present normal inspection and full ROM Respiratory: Present respiratory distress, wheezes and able to speak in complete sentences Cardiac: Present S1/S2, Tachycardia and radial pulses present GI: Present soft and distention; Absent tenderness or guarding Rectal (female): Present deferred (female): Present deferred Skin: Present intact; Absent cyanosis or jaundice Neuro: Present alert, awake and oriented x 3 Extremities: Present normal inspection; Absent clubbing or cyanosis Psychiatric: Present normal affect and cooperative Meds Home Medications and Allergies Home Medications Medication Instructions Recorded Confirmed Type aspirin 81 mg chewable tablet 81 mg PO DAILY HEART HEALTH 11/27/19 12/02/23 History gabapentin 800 mg tablet 800 mg PO QID FIBROMYALGIA PAIN 11/27/19 12/02/23 History levothyroxine 50 mcg tablet 50 mcg PO DAILY HYPOTHYROIDISM 11/27/19 12/02/23 History methadone 10 mg tablet 10 mg PO 0600,1200,1800,2359 11/27/19 12/02/23 History FIBROMYALGIA PAIN ondansetron HCl 8 mg tablet 8 mg PO TIDP PRN Nausea 11/27/19 12/02/23 History fluoxetine 20 mg capsule 20 mg PO DAILY Depression 11/28/19 12/02/23 History pantoprazole 40 mg tablet,delayed 40 mg PO BID ACID REFLUX 11/28/19 12/02/23 History release amlodipine 2.5 mg tablet 2.5 mg PO DAILY Hypertension 07/07/22 12/02/23 History atorvastatin 40 mg tablet 40 mg PO HS High cholesterol 07/07/22 12/02/23 History bisoprolol fumarate 5 mg tablet 2.5 mg PO DAILY Hypertension 07/07/22 12/02/23 History 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 07/07/22 12/02/23 History empagliflozin 25 mg tablet 25 mg PO DAILY Diabetes 07/07/22 12/02/23 History (Jardiance) albuterol sulfate 90 mcg/actuation 2 puff inhalation Q4HP PRN SOA 12/02/23 12/02/23 History aerosol inhaler (Ventolin HFA) bupropion HCl 150 mg 24 hr tablet, 150 mg PO DAILY 12/02/23 12/02/23 History extended release ergocalciferol (vitamin D2) 1,250 50,000 unit PO WEEKLY Supplement 12/02/23 12/02/23 History mcg (50,000 unit) capsule (Vitamin D2) escitalopram oxalate 20 mg tablet 20 mg PO DAILY Depression 12/02/23 12/02/23 History fluticasone propionate 50 1 spray intranasal BID ALLERGIES 12/02/23 12/02/23 History mcg/actuation nasal spray,suspension guaifenesin 600 mg tablet, 600 mg PO Q12H COUGH/CONGESTION 12/02/23 12/02/23 History extended release 12 hr insulin aspart U-100 100 unit/mL 10 sliding scale dose SQ TID 12/02/23 12/02/23 History (3 mL) subcutaneous pen (Novolog Diabetes FlexPen U-100 Insulin aspart) insulin detemir U-100 100 unit/mL 50 unit SQ HS Diabetes 12/02/23 12/02/23 H istory (3 mL) subcutaneous pen (Levemir FlexPen) magnesium oxide 400 mg PO DAILY Supplement 12/02/23 12/02/23 History nitroglycerin 0.4 mg sublingual 0.4 mg sublingual Q5MINP PRN Chest 12/02/23 12/02/23 History tablet Pain New Prescriptions to Start Prescriptions: Allergies Allergy/AdvReac Type Severity Reaction Status Date / Time Cephalosporins Allergy Unknown Verified 12/02/23 04:14 allergy reaction Iodinated Contrast Media Allergy Unknown Verified 12/02/23 04:14 allergy reaction meperidine Allergy Unknown Verified 12/02/23 04:14 allergy reaction NSAIDS (Non-Steroidal Allergy Unknown Verified 12/02/23 04:14 Anti-Inflamma allergy reaction pregabalin Allergy Verified 12/02/23 06:23 Sulfa (Sulfonamide Allergy Unknown Verified 12/02/23 04:14 Antibiotics) allergy reaction sumatriptan Allergy Verified 12/02/23 06:23 tizanidine Allergy Verified 12/02/23 06:23 enoxaparin [From Lovenox] AdvReac Unknown Verified 12/02/23 06:23 allergy reaction nalbuphine AdvReac Unknown Verified 12/02/23 04:14 allergy reaction promethazine AdvReac Unknown Verified 12/02/23 04:14 allergy reaction Results Laboratory Findings 12/03/23 07:40 12/03/23 06:43 Abnormal lab findings: Abnormal Labs 12/02/23 12/02/23 12/02/23 03:54 04:02 06:37 WBC 17.1 H RBC 3.55 L Hgb 11.5 L Hct MCV 105.4 H MCH 32.2 H MCHC 30.6 L Neut % (Auto) Neut # (Auto) 10.1 H Lymph # (Auto) 5.6 H Neutrophils % (Manual) Monocytes % (Manual) 1 L VBG pCO2 57.7 H VBG pO2 151.8 H VBG Total CO2 30.8 H VBG O2 Saturation 99.1 H VBG Base Excess 2.9 H Sodium Carbon Dioxide 34 H Anion Gap 3.7 L BUN Glucose 153 H POC Glucose Hemoglobin A1c 7.6 H Globulin 3.6 H 12/02/23 12/02/23 12/02/23 06:44 10:37 16:47 WBC RBC Hgb Hct MCV MCH MCHC Neut % (Auto) Neut # (Auto) Lymph # (Auto) Neutrophils % (Manual) Monocytes % (Manual) VBG pCO2 VBG pO2 VBG Total CO2 VBG O2 Saturation VBG Base Excess Sodium Carbon Dioxide Anion Gap BUN Glucose POC Glucose 209 H 255 H 307 H* Hemoglobin A1c Globulin 12/03/23 12/03/23 12/03/23 06:13 06:43 07:40 WBC 16.8 H RBC 3.19 L Hgb 10.4 L Hct 32.7 L MCV 102.5 H MCH 32.6 H MCHC Neut % (Auto) 83.4 H Neut # (Auto) 14.0 H Lymph # (Auto) Neutrophils % (Manual) 78 H Monocytes % (Manual) VBG pCO2 VBG pO2 VBG Total CO2 VBG O2 Saturation VBG Base Excess Sodium 135 L Carbon Dioxide 32 H Anion Gap BUN 18 H D Glucose 254 H POC Glucose 258 H Hemoglobin A1c Globulin Assessment and Plan *Assessment and plan (1) Acute and chronic respiratory failure with hypoxia: Status: Acute Category: Medical Code(s): J96.21 - Acute and chronic respiratory failure with hypoxia (2) Lupus disease of lung: Status: Acute Category: Medical Code(s): M32.13 - Lung involvement in systemic lupus erythematosus (3) Asthma: Status: Chronic Qualifiers: Asthma severity: moderate Asthma persistence: persistent Asthma complication type: uncomplicated Qualified Code(s): J45.40 - Moderate persistent asthma, uncomplicated Category: Medical Code(s): J45.909 - Unspecified asthma, uncomplicated (4) Pneumonia: Status: Acute Qualifiers: Pneumonia type: due to unspecified organism Laterality: right Lung location: upper lobe of lung Qualified Code(s): J18.9 - Pneumonia, unspecified organism Category: Medical Code(s): J18.9 - Pneumonia, unspecified organism (5) Fibrosis of lung: Status: Acute Category: Medical Code(s): J84.10 - Pulmonary fibrosis, unspecified Plan Ms. Cooney is a 68-year-old female no significant smoking history, currently diagnosis of asthma along with lupus-like syndrome and interstitial lung disease following at [facility],, hypertension, dyslipidemia presented to the ER complaining of chest pain and respiratory distress pulmonary was called for further evaluation and management. Neutrophilic leukocytosis upon admission. VBG upon admission did not show any significant evidence of hypoxic/hypercarbic respiratory failure. CT chest upon admission bilateral upper lobe interstitial markings more likely chronic, likely evident on her prior chest x-rays. No dense consolidation noted. Patient was initiated on levofloxacin along with nebulization therapies on methylprednisolone 60 Q8hrs. On examination patient appeared to be in moderate respiratory distress but no significant wheezing on auscultation. On baseline 2 to 3 L oxygen supplementation. Will continue to monitor. Plan: Initiate Trelegy 100 inhaler along with DuoNebs every 6 hours on as-needed basis Recommend to wean steroids to prednisone 40 mg daily x 14 days Continue levofloxacin 750 mg daily to complete a total of 5-day course. Follow- up with sputum culture # Thank you for involving pulmonary in this patient care. Will continue to follow. Will order the patient as an outpatient basis for the possible CT- ILD/Pulm Fibrosis
[2023-12-03 11:16] LABS: POC Glucose,Bedside 205 (70-110)
--- NOTE | 2023-12-03 12:39 | IR_ITS ---
APPROVED REPORT Patient Location: Inpatient [employer] Teacher: NERY Goins RT (R) PROCEDURES Left heart catheterization Left ventriculogram Selective coronary angiogram Drug-eluting stent deployment to the mid LAD INDICATION Unstable angina, Coronary artery disease Informed consent was obtained prior to the procedure. COMPLICATIONS None Estimated Blood Loss: Less than 10 mls TECHNIQUE One percent lidocaine used to anesthetize the right anterior aspect of the wrist. The right radial artery was accessed via the Seldinger technique. A 6 Lao sheath was placed in the right radial artery. 2.5 mg of Verapamil, 800 mcg of nitroglycerin, 1mg Lidocaine and 5000 U Heparin were given through the arterial sheath. The papa catheter was also used to perform left heart catheterization, left ventriculogram and selective coronary angiogram. At the end of the diagnostic angiogram therapeutic heparin was administered giving a therapeutic ACT and a wire was placed down the LAD followed by 3.5 x 26 mm [place] frontier stent deployed at 16 [place] reducing the severe stenosis to 0%. A guide liner was used for additional support. RAY-3 flow was present before and after the procedure. At the end the procedure the apparatus was removed the sheath was removed and hemostasis was achieved using TR banding patient was transferred to the postop holding area in stable condition ANGIOGRAPHIC RESULTS The left main artery Normal The left anterior descending artery Proximally normal followed by mid vessel concentric 70% stenosis followed by an additional eccentric 50% stenosis. A large first diagonal artery has a long tubular proximal to mid vessel 30% stenoses The circumflex artery Large caliber vessel supplying a large amount of myocardium however still nondominant. Large first obtuse marginal artery has a proximal 30 to 40% stenosis The right coronary artery Is a large dominant vessel with a proximal concentric 30% stenosis followed by a widely patent proximal mid and distal contiguous stents. Distal to the stent there is a 20% stepdown with additional 10 to 20% stenoses in the posterior descending artery The TAVARES ventriculogram reveals Preserved ejection fraction of 55% The left ventricular end-diastolic pressure 25 mmHg IMPRESSION Severe mid LAD disease in a large caliber vessel with successful stenting reducing the stenosis to 0% with 1 drug-eluting stent Mild to moderate disease in a large nondominant first obtuse marginal artery Widely patent stents in the proximal mid and distal dominant right coronary Preserved ejection fraction Elevated LVEDP PLAN 1. Dual antiplatelet therapy 2. Risk factor modification 3. Cardiac rehabilitation 4. Avoidance of tobacco products 5. Treatment of HFpEF 6. Recommend sleep study 7. LDL less than 55 to be achieved with high intensity statin Electronically signed by : Glen Serna MD 12/03/2023 15:13:05
[2023-12-03] MEDS: predniSONE 20MG TAB 40 MG PO (13:25)
--- NOTE | 2023-12-03 13:27 | EXP.CARD.CON ---
History of Present Illness History of Present Illness Consult date: 12/03/23 Requesting physician: Geoff Church Consult reason: chest pain Chief complaint: CP History of present illness: 68-year-old white female historically followed by [facility] cardiology presented to ER with complaints of chest pain. She has history of COPD on O2, lupus, BMI 45, history of DVT, history of GI bleed, SVT, MRSA, hypothyroidism, anemia, ITP status postsplenectomy 1986, endometrial cancer. CAD with last heart cath 03/2021 revealing nonflow-limiting LAD disease and extensive RCA stenting. Patient presented to the emergency room Saturday night by EMS with complaints of shortness of breath. ER workup revealed white blood cell count 17,000, right lower lobe pneumonia on x-ray, EKG revealing sinus rhythm 90s incomplete right bundle branch block with no ST or T wave changes. Her troponins are normal. CT chest shows cardiomegaly and multistation mediastinal lymphadenopathy. She was admitted for management. She is on broad-spectrum antibiotics by hospitalist. We are consulted for evaluation of chest pain which patient states accompanies her shortness of breath. She tells me she has had 3 weeks of episodic chest tightness with radiation to her left arm worse with activity better with rest or nitroglycerin. States the symptoms feel the exact same as her before her prior stenting. [facility] Disclaimer: The information contained in this section may have been updated after the patient was seen, as this information can be updated by other users. Medical History Acute and chronic respiratory failure with hypoxia Anemia Arrhythmia Asthma Cataract COPD (chronic obstructive pulmonary disease) Diabetes DVT (deep venous thrombosis) Endometrial cancer Fibrosis of lung Gastroparesis GERD (gastroesophageal reflux disease) GI bleed Heart attack History of anemia History of ITP History of left heart catheterization (LHC) History of lupus HTN (hypertension) Kidney disease Lupus disease of lung MRSA (methicillin resistant Staphylococcus aureus) Oxygen dependent Rotator cuff impingement syndrome SVT (supraventricular tachycardia) Thyroid disease Surgical History History of carpal tunnel surgery History of cholecystectomy History of colonoscopy History of esophagogastroduodenoscopy (EGD) History of hysterectomy History of [place] fundoplication History of right heart catheterization (RHC) History of splenectomy Family History Other Family history of anemia Family history of asthma Family history of bleeding disorder Family history of cancer Family history of diabetes mellitus Family history of kidney disease Family history of thyroid disease Social History Smoking Status: Former smoker alcohol intake: never current occupational status: retired Travel in the last 8 weeks: None household members: none housing: house lives independently: Yes marital status: education level: college diet: diabetic caffeine: Yes Review of Systems Constitutional Constitutional: Denies fatigue and Denies weakness Eyes Eyes: Denies loss of vision ENT Ears, Nose, Mouth, and Throat: Denies hearing loss *Cardiovascular Cardiovascular: Reports chest pain and Reports dyspnea *Respiratory Respiratory: Denies cough and Reports dyspnea *Gastrointestinal Gastrointestinal: Denies change in stool character, Denies nausea and Denies vomiting *Musculoskeletal Musculoskeletal: Denies muscle weakness Integumentary/Breasts Skin/Breast: Denies changing lesions *Neurologic Neurologic: Reports system reviewed and no additional complaints, except as documented, Denies loss of vision and Denies weakness Endocrine Endocrine: Denies fatigue Exam Data for Last 24 hours Vital signs and Labs for Last 24 Hours: Temp Pulse Resp BP Pulse Ox O2 Del Method O2 Flow Rate 98.1 F 70 22 155/77 H 88 L Room Air 2 12/03/23 08:00 12/03/23 12:00 12/03/23 11:25 12/03/23 11:25 12/03/23 11:28 12/03/23 11:28 12/03/23 11:25 Laboratory Results - last 24 hr 12/02/23 06:37: Hemoglobin A1c 7.6 H 12/02/23 16:47: POC Glucose 307 H* 12/02/23 20:10: Troponin I < 0.01 12/03/23 06:13: POC Glucose 258 H 12/03/23 06:43: Sodium 135 L, Potassium 5.1, Chloride 100, Carbon Dioxide 32 H, Anion Gap 8.1, BUN 18 H D, Creatinine 0.80, Estimated Creat Clear 38, Estimated GFR 72, Est GFR ( Amer) 87, Glucose 254 H, Calcium 9.0 12/03/23 07:40: WBC 16.8 H, RBC 3.19 L, Hgb 10.4 L, Hct 32.7 L, MCV 102.5 H, MCH 32.6 H, MCHC 31.8, RDW 15.9, Plt Count 314, MPV 9.5, Neut % (Auto) 83.4 H, Lymph % (Auto) 12.6, [place] % (Auto) 2.9, Eos % (Auto) 1.0, Baso % (Auto) 0.1, Neut # (Auto) 14.0 H, Lymph # (Auto) 2.1, [place] # (Auto) 0.5, Eos # (Auto) 0.2, Baso # (Auto) 0.0, Total Counted 100, Neutrophils % (Manual) 78 H, Lymphocytes % (Manual) 17, Monocytes % (Manual) 5, Platelet Estimate Normal, RBC Morphology Normal, Anisocytosis 1+, Macrocytosis 1+ 12/03/23 10:59: POC Glucose 205 H I & O for Last 24 hours: Intake & Output 11/30/23 12/01/23 12/02/23 12/03/23 23:59 23:59 23:59 23:59 Intake Total 950 / 950 Output Total 200 / 200 0 / 0 Balance 750 / 750 0 / 0 Weight 224 lb 9.6 oz 227 lb 4.8 oz Constitutional Constitutional: no acute distress and cooperative *Routine HEENT Exam Eye: Present PERRL *Routine Respiratory Exam Respiratory: Present CTA bilaterally; Absent accessory muscle use, wheezes or crackles *Routine Cardiovascular Exam Cardiovascular: Present RRR, Normal S1 and Normal S2; Absent murmur, gallop or rubs *Routine Abdominal Exam Abdominal: Present soft; Absent tenderness *Routine Extremities Exam Extremities: Present pulses intact; Absent cyanosis or edema *Routine Skin Exam Skin: Present intact; Absent erythema or wounds *Routine Neurological Exam Neurological: Present alert and oriented X3 Routine Psychiatric Exam Psychiatric: Present cooperative Meds Home Medications and Allergies Home Medications Medication Instructions Recorded Confirmed Type aspirin 81 mg chewable tablet 81 mg PO DAILY HEART HEALTH 11/27/19 12/02/23 History gabapentin 800 mg tablet 800 mg PO QID FIBROMYALGIA PAIN 11/27/19 12/02/23 History levothyroxine 50 mcg tablet 50 mcg PO DAILY HYPOTHYROIDISM 11/27/19 12/02/23 History methadone 10 mg tablet 10 mg PO 0600,1200,1800,2359 11/27/19 12/02/23 History FIBROMYALGIA PAIN ondansetron HCl 8 mg tablet 8 mg PO TIDP PRN Nausea 11/27/19 12/02/23 History fluoxetine 20 mg capsule 20 mg PO DAILY Depression 11/28/19 12/02/23 History pantoprazole 40 mg tablet,delayed 40 mg PO BID ACID REFLUX 11/28/19 12/02/23 History release amlodipine 2.5 mg tablet 2.5 mg PO DAILY Hypertension 07/07/22 12/02/23 History atorvastatin 40 mg tablet 40 mg PO HS High cholesterol 07/07/22 12/02/23 History bisoprolol fumarate 5 mg tablet 2.5 mg PO DAILY Hypertension 07/07/22 12/02/23 History 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 07/07/22 12/02/23 History empagliflozin 25 mg tablet 25 mg PO DAILY Diabetes 07/07/22 12/02/23 History (Jardiance) albuterol sulfate 90 mcg/actuation 2 puff inhalation Q4HP PRN SOA 12/02/23 12/02/23 History aerosol inhaler (Ventolin HFA) bupropion HCl 150 mg 24 hr tablet, 150 mg PO DAILY 12/02/23 12/02/23 History extended release ergocalciferol (vitamin D2) 1,250 50,000 unit PO WEEKLY Supplement 12/02/23 12/02/23 History mcg (50,000 unit) capsule (Vitamin D2) escitalopram oxalate 20 mg tablet 20 mg PO DAILY Depression 12/02/23 12/02/23 History fluticasone propionate 50 1 spray intranasal BID ALLERGIES 12/02/23 12/02/23 History mcg/actuation nasal spray,suspension guaifenesin 600 mg tablet, 600 mg PO Q12H COUGH/CONGESTION 12/02/23 12/02/23 History extended release 12 hr insulin aspart U-100 100 unit/mL 10 sliding scale dose SQ TID 12/02/23 12/02/23 History (3 mL) subcutaneous pen (Novolog Diabetes FlexPen U-100 Insulin aspart) insulin detemir U-100 100 unit/mL 50 unit SQ HS Diabetes 12/02/23 12/02/23 History (3 mL) subcutaneous pen (Levemir FlexPen) magnesium oxide 400 mg PO DAILY Supplement 12/02/23 12/02/23 History nitroglycerin 0.4 mg sublingual 0.4 mg sublingual Q5MINP PRN Chest 12/02/23 12/02/23 History tablet Pain New Prescriptions to Start Prescriptions: Allergies Allergy/AdvReac Type Severity Reaction Status Date / Time Cephalosporins Allergy Unknown Verified 12/02/23 04:14 allergy reaction Iodinated Contrast Media Allergy Unknown Verified 12/02/23 04:14 allergy reaction meperidine Allergy Unknown Verified 12/02/23 04:14 allergy reaction NSAIDS (Non-Steroidal Allergy Unknown Verified 12/02/23 04:14 Anti-Inflamma allergy reaction pregabalin Allergy Verified 12/02/23 06:23 Sulfa (Sulfonamide Allergy Unknown Verified 12/02/23 04:14 Antibiotics) allergy reaction sumatriptan Allergy Verified 12/02/23 06:23 tizanidine Allergy Verified 12/02/23 06:23 enoxaparin [From Lovenox] AdvReac Unknown Verified 12/02/23 06:23 allergy reaction nalbuphine AdvReac Unknown Verified 12/02/23 04:14 allergy reaction promethazine AdvReac Unknown Verified 12/02/23 04:14 allergy reaction Assessment and Plan *Assessment and plan (1) CAD (coronary artery disease): Status: Acute Category: Medical Code(s): I25.10 - Atherosclerotic heart disease of [place] coronary artery without angina pectoris (2) Unstable angina: Status: Acute Category: Medical Code(s): I20.0 - Unstable angina (3) Respiratory failure: Status: Acute Qualifiers: Chronicity: acute on chronic Respiratory failure complication: hypoxia and hypercapnia Qualified Code(s): J96.21 - Acute and chronic respiratory failure with hypoxia; J96.22 - Acute and chronic respiratory failure with hypercapnia Category: Medical Code(s): J96.90 - Respiratory failure, unspecified, unspecified whether with hypoxia or hypercapnia (4) Pneumonia: Status: Acute Qualifiers: Pneumonia type: due to unspecified organism Laterality: right Lung location: upper lobe of lung Qualified Code(s): J18.9 - Pneumonia, unspecified organism Category: Medical Code(s): J18.9 - Pneumonia, unspecified organism (5) Chronic pain syndrome: Status: Acute Category: Medical Code(s): G89.4 - Chronic pain syndrome (6) Acute exacerbation of chronic obstructive pulmonary disease: Status: Acute Category: Medical Code(s): J44.1 - Chronic obstructive pulmonary disease with (acute) exacerbation Plan CAD, NV with Class 4 Unstable Angina - 3 weeks worsening angina chest pain with known hx of MV-CAD despite GDMT - cont DAPT, BB, Statin - Discussed options of LHC vs OP testing and she states her symptoms are significantly worse and she had normal Trop/EKG with last cath and would really like to get checked while she's here - pt has CONTRAST DYE ALLERGY -she is already on prednisone 40 mg daily, will add additional dose of 40 mg p.o. 1 hour prior to procedure as well as Benadryl 50 mg 1 hour prior to procedure. - LHC today COPD on 2L with right lower lobe pneumonia -On nebs and antibiotics History of DVT? -Details unclear at this time, she has lupus noted in her chart which could increase her risk for blood clotting. Will discuss further as outpatient Lupus Hx of GI Bleeding Hx of anemia SVT MRSA Hypothyroidism Anemia - noted chronic conditions, cont to monitor
--- OUTSIDE RECORDS SUMMARY | 2023-12-03 14:10 | XMS_ITS ---
Author Name Unknown Address [address] [place] [address] [place] [address] Phone Organization [facility] , [facility] Address [address] [place] [address] Phone Care Team Providers Care Silica Spray Mixer Name Role Phone Brandee Edwards PA-C [phone] Plan of Treatment No Plan of Treatment Recorded Assessments Includes: Assessments for all patient encounters No Assessments Recorded Medical Equipment - Implanted Devices Includes: Current and historical Devices No Medical Equipment Recorded Medications Administered Includes: Administered Medications in patient's chart No Administered Medications Recorded Results Includes: Results from 12/03/2022 through 12/03/2023 No Results Recorded For Specified Dates History of Present Illness History of Present Illness not supported for this document type No History of Present Illness Recorded Social History No Social History Recorded - Smoking Status Unknown Medical History Includes: Medical History in patient's chart No Medical History Recorded Family History Includes: Family History in patient's chart No Family History Recorded Review of Systems Review of Systems not supported for this document type No Review of Systems Recorded Mental Status No Mental Status Recorded Functional Status No Functional Status Recorded Physical Exam Physical Exam not supported for this document type No Physical Exam Recorded Insurance Includes: Active Insurance Policies Plan Name Member ID Group # Subscriber Relationship Effect fili Dates 1 - Medicare Part B [facility] [id number] Maricel Cooney Self Clinical Notes Includes: Signed Clinical Notes starting from 09/28/2022 No Clinical Notes Recorded
--- OUTSIDE RECORDS SUMMARY | 2023-12-03 14:10 | XMS_ITS ---
Care Plan - [facility], [facility] Created on: December 03, 2023 Maricel Cooney : 1955 Sex: Female Author Name Unknown Address [address] [place] [address] Phone Organization [facility] , [facility] Address [address] [place] [address] Phone Care Team Providers Care Public Transportation Inspector Name Role Phone Brandee Edwards PA-C Unavailable [phone]
--- OUTSIDE RECORDS SUMMARY | 2023-12-03 14:10 | XMS_ITS | Clinical Summary ---
Author Name Unknown Address [address] [place] [address] Phone Organization [facility] Address [address] [place] [address] Phone Care Team Providers Care Chicken Hanger Name Role Phone Harjit OHARA, Bashir Stephenson [ ] Conditions or Problems Problem Name Problem Code Onset Date Status Entry Date Provider Comment Standard Description Annotate OBSTRUCTIVE SLEEP APNEA 07286846 (SNOMED CT) 01/01 Inactive 01/01 Sridevi Bishop Obstructive sleep apnea syndrome LONG-TERM (CURRENT) USE OF ANTICOAGULAN TS 773982457 (SNOMED CT) 07/02 Inactive 07/02 Sridevi Nordan Anticoagulant drug monitoring COPD 31030278 (SNOMED CT) 10/24 Active 10/24 Sridevi Nordroselia Chronic obstructive lung disease Headache 75171200 (SNOMED CT) 10/24 Active 10/24 Sridevi Nordan Headache Hypoxia 992569319 (SNOMED CT) 10/24 Active 10/24 Srdievi Nordan Hypoxia Pneumonia 206862939 (SNOMED CT) 10/24 Active 10/24 Sridevi Nordan Pneumonia CHRONIC OSTEOMYELITI S RIGHT KNEE M86.669 (ICD-10-CM ) 01/01 Inactive 11/24 Sridevi Bishop Other chronic osteomyelitis, unspecified tibia and fibula CHRONIC RIGHT KNEE PAIN M25.569 (ICD-10-CM ) 07/02 Inactive 07/02 Sridevi Bishop Pain in unspecified knee PRIMARY HYPERCOAGULA BLE STATE 72315232 (SNOMED CT) 07/02 Inactive 07/02 Sridevi Nordan Hypercoagulabil ity state HX OF SPLENECTOMY 299761102 (SNOMED CT) 11/24 Inactive 11/24 Sridevi Bishop H/O splenectomy ANXIETY 514724437 (SNOMED CT) 07/02 Inactive 07/02 Sridevi Bishop Anxiety disorder LONG-TERM (CURRENT) USE OF ANTICOAGULAN TS 633798380 (SNOMED CT) 07/02 Removed 07/02 W Anticoagulant drug monitoring PRIMARY HYPERCOAGULA BLE STATE 77304697 (SNOMED CT) 07/02 Removed 07/02 Gisselle W Hypercoagulabil ity state COUMADIN THERAPY 904673895 (SNOMED CT) 11/24 Correction 11/24 W Warfarin therapy started DM II E11.9 (ICD-10-CM ) 01/01 Active 01/01 Gisselle W Type 2 diabetes mellitus without complications ANXIETY 878634753 (SNOMED CT) 07/02 Removed 07/02 Sheron Patel RN Anxiety disorder CHRONIC RIGHT KNEE PAIN M25.569 (ICD-10-CM ) 07/02 Removed 07/02 Sheron Patel RN Pain in unspecified knee WHEEZING 35132269 (SNOMED CT) 01/01 Resolved 01/01 Sheron Patel RN Wheezing PNEUMONIA 928822150 (SNOMED CT) 01/01 Resolved 01/01 Sheron Patel RN Pneumonia ACUTE URI 46660861 (SNOMED CT) 01/01 Resolved 01/01 Sheron Patel 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 upper respiratory infection OBSTRUCTIVE SLEEP APNEA 17390554 (SNOMED CT) 01/01 Removed 01/01 Gisselle W Obstructive sleep apnea syndrome ACUTE URI 26732599 (SNOMED CT) 01/01 Removed 01/01 Gisselle W Acute upper respiratory infection BORDERLINE DM II E11.9 (ICD-10-CM ) 01/01 Correction 01/01 Gisselle W Type 2 diabetes mellitus without complications CHRONIC OSTEOMYELITI S RIGHT KNEE M86.669 (ICD-10-CM ) 01/01 Removed 11/24 Gisselle W Other chronic osteomyelitis, unspecified tibia and fibula PNEUMONIA 081186973 (SNOMED CT) 01/01 Removed 01/01 Gisselle W Pneumonia WHEEZING 73701881 (SNOMED CT) 01/01 Removed 01/01 Gisselle W Wheezing RIGHT KNEE INFECTION 682.6 (ICD-9-CM) 11/24 Resolved 11/24 Gisselle W Cellulitis and abscess of leg, except foot CIRRHOSIS OF LIVER WITHOUT MENTION OF ALCOHOL 16324886 (SNOMED CT) 11/24 Resolved 11/24 Gisselle W Cirrhosis of liver PRIMARY HYPERCOAGULA BLE STATE 16036894 (SNOMED CT) 11/24 Correction 11/24 Gisselle W Hypercoagulabil ity state SECONDARY HYPERCOAGULA BLE STATE 50042001 (SNOMED CT) 11/24 Correction 11/24 Gisselle W Hypercoagulabil ity state CHRONIC OSTEOMYELITI S, LOWER LEG 169288201 (SNOMED CT) 11/24 Correction 11/24 Karina L Chronic osteomyelitis of lower leg RIGHT KNEE INFECTION 682.6 (ICD-9-CM) 11/24 Removed 11/24 Karina L Cellulitis and abscess of leg, except foot LEUKOCYTOSIS 012874640 (SNOMED CT) 11/24 Active 11/24 Karina L Leukocytosis HX OF MRSA Z86.14 (ICD-10-CM ) 11/24 Active 11/24 Karina L Personal history of Methicillin resistant Staphylococcus aureus infection SECONDARY HYPERCOAGULA BLE STATE 63489539 (SNOMED CT) 11/24 Removed 11/24 Karina L Hypercoagulabil ity state PRIMARY HYPERCOAGULA BLE STATE 76064757 (SNOMED CT) 11/24 Removed 11/24 Karina L Hypercoagulabil ity state COUMADIN THERAPY 194130138 (SNOMED CT) 11/24 Removed 11/24 Karina L Warfarin therapy started HX OF SPLENECTOMY 601569387 (SNOMED CT) 11/24 Removed 11/24 Karina L H/O splenectomy CIRRHOSIS OF LIVER WITHOUT MENTION OF ALCOHOL 93746528 (SNOMED CT) 11/24 Removed 11/24 Karina Hong Cirrhosis of liver Medications Medication Instructions Start Date Stop Date Generic Name NDC Provider DOXYCYCLINE HYCLATE 100 MG CAPS DOXYCYCLINE HYCLATE 91819450304 Anetra D Keys PROVENTIL HFA 108 (90 Base) MCG/ACT AERS ALBUTEROL SULFATE 99170407316 Anetra D Keys NYSTATIN OINT NYSTATIN OINT [id number] Anetra D Keys NORVASC TABS AMLODIPINE BESYLATE TABS 68836255134 Anetra D Keys AMLODIPINE BESYLATE 10 MG TABS AMLODIPINE BESYLATE 55334386795 Anetra D Keys VITAMIN B-12 TABS CYANOCOBALAMIN TABS 74721207873 Rola Villalpandoty REQUIP 0.5 MG ORAL TABLET ROPINIROLE HCL 92594231573 Rola Villalpandoty PROTONIX 40 MG PACK PANTOPRAZOLE SODIUM 27832319703 Rola Villalpandoty PREDNISONE 2.5 MG TABS PREDNISONE 20227331736 Rola Villalpandoty PERCOCET 10-325 MG TABS OXYCODONE-ACETAM INOPHEN 73728760751 Rola Westbrookherty AMLODIPINE BESYLATE 10 MG TABS AMLODIPINE BESYLATE 41671932869 Rola Cruz NITROSTAT 0.4 MG SUBL NITROGLYCERIN 87921243554 Rola Cruz NEURONTIN 300 MG CAPS GABAPENTIN 69738753263 Rola Cruz METHADONE HCL TABS METHADONE HCL TABS 73438100642 Rola Westbrookherty LORAZEPAM 0.5 MG TABS LORAZEPAM 06009038326 Rola Westbrookherty LEVOTHYROXINE SODIUM 50 MCG TABS LEVOTHYROXINE SODIUM 14965049173 Rola Villalpandoty LASIX 20 MG TABS FUROSEMIDE 05186663608 Rola Villalpandoty VERAMYST 27.5 MCG/SPRAY NASAL SUSPENSION FLUTICASONE FUROATE 15364330774 Rola Cruz CALCIUM-VITAMIN D CALCIUM-VITAMIN D TABS 06448222662 Rola Cruz CALCITONIN (SALMON) 200 UNIT/ACT SOLN CALCITONIN (SALMON) 82728482375 Rola Cruz ASPIRIN 81 MG ORAL TABLET ASPIRIN 11898807648 Rola Cruz PROTONIX 40 MG PACK PANTOPRAZOLE SODIUM 69881538232 Rola Cruz COUMADIN 3 MG ORAL TABLET WARFARIN SODIUM 43466017040 Rola Cruz ACCUNEB NEBU ALBUTEROL SULFATE NEBU 46960770764 Rola Cruz TESSALON PERLES 100 MG ORAL CAPSULE BENZONATATE 01844456229 Rola Cruz DOXYCYCLINE HYCLATE 100 MG CAPS DOXYCYCLINE HYCLATE 19182722860 Rola Cruz VITAMIN B-12 50 MCG TABS CYANOCOBALAMIN 20579100889 Rola Cruz PROTONIX 40 MG TBEC PANTOPRAZOLE SODIUM 05550582275 Rola Cruz AMLODIPINE BESYLATE TABS AMLODIPINE BESYLATE TABS 38862913357 Rola Cruz PROTONIX 40 MG PACK PANTOPRAZOLE SODIUM 78194189887 Rola Cruz AMLODIPINE BESYLATE 10 MG TABS AMLODIPINE BESYLATE 20305808985 Rola Cruz NITROSTAT 0.4 MG SUBL NITROGLYCERIN 35742957147 Rola Cruz LASIX 20 MG TABS FUROSEMIDE 35342863197 Rola Cruz FLONASE 50 MCG/ACT NASAL SUSPENSION FLUTICASONE PROPIONATE 39615656364 Rola Cruz CALCIDOL 8000 UNIT/ML ORAL SOLUTION ERGOCALCIFEROL 89733352615 Rolarosa Cruz CALCIUM-VITAMIN D CALCIUM-VITAMIN D TABS 29627545390 Rola Cruz PREDNISONE 5 MG TABS take two each morning PREDNISONE 28678357792 Rola Cruz SYNTHROID 100 MCG TABS LEVOTHYROXINE SODIUM 99950470705 Rola Cruz TYLENOL 325 MG TABS ACETAMINOPHEN 42133026715 Rola Cruz REQUIP 0.5 MG ORAL TABLET ROPINIROLE HCL 75626074082 Rola Cruz PERCOCET TABS OXYCODONE-ACETAM INOPHEN TABS 30098940292 Rola Cruz NEURONTIN 300 MG CAPS GABAPENTIN 54943270929 Rola Cruz METHADONE HCL TABS METHADONE HCL TABS 04002919224 Rola Cruz ATIVAN TABS LORAZEPAM TABS 98684658485 Rola Cruz COUMADIN TABLET WARFARIN SODIUM TABS 60984730825 Rola Cruz ASPIR-LOW TBEC ASPIRIN TBEC 77458877878 Rola Cruz ACCUNEB NEBU ALBUTEROL SULFATE NEBU 93936456353 Anetra D Keys TESSALON PERLES 100 MG ORAL CAPSULE BENZONATATE 45372330939 Anetra D Keys DOXYCYCLINE HYCLATE 100 MG CAPS DOXYCYCLINE HYCLATE 65292668416 Anetra D Keys VITAMIN B-12 50 MCG TABS CYANOCOBALAMIN 63465739907 Anetra D Keys PROTONIX 40 MG TBEC PANTOPRAZOLE SODIUM 67802358925 Anetra D Keys AMLODIPINE BESYLATE TABS AMLODIPINE BESYLATE TABS 44730393075 Anetra D Keys PROTONIX 40 MG PACK PANTOPRAZOLE SODIUM 44205776165 Anetra D Keys AMLODIPINE BESYLATE 10 MG TABS AMLODIPINE BESYLATE 72242134259 Anetra D Keys NITROSTAT 0.4 MG SUBL NITROGLYCERIN 38439332572 Anetra D Keys LASIX 20 MG TABS FUROSEMIDE 50722304456 Anetra D Keys FLONASE 50 MCG/ACT NASAL SUSPENSION FLUTICASONE PROPIONATE 53628953039 Anetra D Keys CALCIDOL 8000 UNIT/ML ORAL SOLUTION ERGOCALCIFEROL 92584172171 Anetra D Keys CALCIUM-VITAMIN D CALCIUM-VITAMIN D TABS 76716799459 Anetra D Keys FLUTICASONE PROPIONATE 50 MCG/ACT SUSP FLUTICASONE PROPIONATE 12438898878 Anetra D Keys PREDNISONE 5 MG TABS take two each morning PREDNISONE 33806250919 Bashir Lombardi MD SYNTHROID 100 MCG TABS LEVOTHYROXINE SODIUM 92244691072 Tamia Palm RN PROTONIX 40 MG TBEC PANTOPRAZOLE SODIUM 18544516954 Tamia Palm RN AMLODIPINE BESYLATE 10 MG TABS AMLODIPINE BESYLATE 69351476530 Tamia Palm RN NITROSTAT 0.6 MG SUBL NITROGLYCERIN 15898580820 Tamia Palm RN LEVOTHROID TABS LEVOTHYROXINE SODIUM TABS 64574254810 Tamia Palm RN LASIX TABS FUROSEMIDE TABS 76032067754 Tamia Palm RN CALCIUM 500 TABLET CALCIUM-MAGNESIU M-VITAMIN D TABS 45135204241 Tamia Palm RN TYLENOL 325 MG TABS ACETAMINOPHEN 52257867085 Anetra D Keys REQUIP 0.5 MG ORAL TABLET ROPINIROLE HCL 07747243325 Anetra D Keys PROTONIX 40 MG TBEC PANTOPRAZOLE SODIUM 40920098926 Anetra D Keys PERCOCET TABS OXYCODONE-ACETAM INOPHEN TABS 16006245663 Anetra D Keys AMLODIPINE BESYLATE 10 MG TABS AMLODIPINE BESYLATE 54659962501 Anetra D Keys NITROSTAT 0.6 MG SUBL NITROGLYCERIN 82030985849 Anetra D Keys NEURONTIN 300 MG CAPS GABAPENTIN 18783245809 Anetra D Keys METHADONE HCL TABS METHADONE HCL TABS 63343217529 Anetra D Keys ATIVAN TABS LORAZEPAM TABS 19964747348 Anetra D Keys LEVOTHROID TABS LEVOTHYROXINE SODIUM TABS 79833322772 Anetra D Keys LASIX TABS FUROSEMIDE TABS 12046079223 Anetra D Keys FLUTICASONE PROPIONATE 50 MCG/ACT SUSP FLUTICASONE PROPIONATE 12998703134 Anetra D Keys COUMADIN TABLET WARFARIN SODIUM TABS 36264549855 Anetra D Keys CALCIUM 500 TABLET CALCIUM-MAGNESIU M-VITAMIN D TABS 13107305659 Anetra D Keys ASPIR-LOW TBEC ASPIRIN TBEC 15248579097 Anetra D Keys Medications Administered No information available. Allergies, Adverse Reactions, Alerts Allergy Name Reaction Description Start Date Severity Status Provider BETADINE Moderate Active Rola Cruz IODINE Moderate Active Rolarosa Villalpandoty LEVAQUIN Moderate Active Rola Cruz NONSTEROIDAL ANTI-INFLAMMATORIES INCLUDING ASPIRIN Moderate Active Rola Cruz NSAIDS Moderate No Longer Active Rola Cruz NUBAIN Moderate Active Tamia Jennifer yepez RN NSAIDS Moderate No Longer Active Tamia Palm RN PHENERGAN Moderate Active Tamia Jennifer yepez RN SULFA Moderate Active Tamia Jennifer yepez RN Results Date Name Value Unit Range Flag Description Office Visit: hosp f/u rm 9 MEDS REVIEW Done Documenta tion of current medications (procedure) SMOK STATUS former smoker Tob acco smoking status Plan of Care Type Date Detail Pending order CMP Pending order CBC with Differe ntial Pending order Sedimentation Ra te (ESR) Procedures Code Procedure Name Date Entry Date CPT-16936 CMP CPT-89071 CBC with Differential 11/25 CPT-82915 Sedimentation Rate (ESR) 201 11/26/10 Vital Signs Date Name Value Unit Description BMI (Body Mass Index) 43.80 kg/m2 Bod y Mass Index (Ratio) Body Temperature 98.0 [degF] temperat ure E&M BP Diastolic 76 mm[Hg] blood pressu re, diastolic BP Systolic 118 mm[Hg] blood pressur e, systolic Heart Rate 72 /min pulse rate Height 61 [in_us] height E&M Respiratory Rate 12 /min respirat ory rate E&M Weight Measured 231 [lb_av] weight E& M Immunizations No information available. Advance Directives No information available.
--- NOTE | 2023-12-03 14:11 | EXP.PN ---
Subjective *Date: 12/03/23 *Time: 18:14 Interval history: Patient is seen and evaluated at bedside, she had Chest pains last night, denied SOB, nausea or vomiting. no reported fevers and chills Exam Data for Last 24 hours Vital signs and Labs for Last 24 Hours: Temp Pulse Resp BP Pulse Ox O2 Del Method O2 Flow Rate 98.1 F 70 22 155/77 H 88 L Nasal Cannula 2 12/03/23 08:00 12/03/23 12:00 12/03/23 11:25 12/03/23 11:25 12/03/23 11:28 12/03/23 13:00 12/03/23 13:00 Laboratory Results - last 24 hr 12/02/23 06:37: Hemoglobin A1c 7.6 H 12/02/23 16:47: POC Glucose 307 H* 12/02/23 20:10: Troponin I < 0.01 12/03/23 06:13: POC Glucose 258 H 12/03/23 06:43: Sodium 135 L, Potassium 5.1, Chloride 100, Carbon Dioxide 32 H, Anion Gap 8.1, BUN 18 H D, Creatinine 0.80, Estimated Creat Clear 38, Estimated GFR 72, Est GFR ( Amer) 87, Glucose 254 H, Calcium 9.0 12/03/23 07:40: WBC 16.8 H, RBC 3.19 L, Hgb 10.4 L, Hct 32.7 L, MCV 102.5 H, MCH 32.6 H, MCHC 31.8, RDW 15.9, Plt Count 314, MPV 9.5, Neut % (Auto) 83.4 H, Lymph % (Auto) 12.6, [place] % (Auto) 2.9, Eos % (Auto) 1.0, Baso % (Auto) 0.1, Neut # (Auto) 14.0 H, Lymph # (Auto) 2.1, [place] # (Auto) 0.5, Eos # (Auto) 0.2, Baso # (Auto) 0.0, Total Counted 100, Neutrophils % (Manual) 78 H, Lymphocytes % (Manual) 17, Monocytes % (Manual) 5, Platelet Estimate Normal, RBC Morphology Normal, Anisocytosis 1+, Macrocytosis 1+ 12/03/23 10:59: POC Glucose 205 H I & O for Last 24 hours: Intake & Output 11/30/23 12/01/23 12/02/23 12/03/23 23:59 23:59 23:59 23:59 Intake Total 950 / 950 Output Total 200 / 200 0 / 0 Balance 750 / 750 0 / 0 Weight 101.877 kg 103.102 kg Constitutional Constitutional: no acute distress *Routine HEENT Exam Head: Present normocephalic Eye: Present EOMI and PERRL ENT: Present mucous membranes moist *Routine Neck Exam Neck: Present supple; Absent lymphadenopathy *Routine Respiratory Exam Respiratory: Present CTA bilaterally *Routine Cardiovascular Exam Cardiovascular: Present RRR *Routine Abdominal Exam Abdominal: Present soft and normoactive bowel sounds; Absent tenderness *Routine Extremities Exam Extremities: Absent cyanosis, clubbing or edema *Routine Skin Exam Skin: Present warm; Absent rash *Routine Neurological Exam Neurological: Present alert and oriented X3 Assessment and Plan *Assessment and plan (1) Acute exacerbation of chronic obstructive pulmonary disease: Status: Acute Category: Medical Code(s): J44.1 - Chronic obstructive pulmonary disease with (acute) exacerbation (2) Pneumonia: Status: Acute Category: Medical Code(s): J18.9 - Pneumonia, unspecified organism (3) Diabetes mellitus type 2 in obese: Status: Chronic Category: Medical Code(s): E11.69 - Type 2 diabetes mellitus with other specified complication; E66.9 - Obesity, unspecified (4) CAD (coronary artery disease): Status: Acute Category: Medical Code(s): I25.10 - Atherosclerotic heart disease of [place] coronary artery without angina pectoris (5) HTN (hypertension): Status: Acute Category: Medical Code(s): I10 - Essential (primary) hypertension (6) HLD (hyperlipidemia): Status: Acute Category: Medical Code(s): E78.5 - Hyperlipidemia, unspecified (7) HTN (hypertension): Status: Chronic Category: Medical Code(s): I10 - Essential (primary) hypertension (8) Hypothyroid: Status: Acute Category: Medical Code(s): E03.9 - Hypothyroidism, unspecified (9) GERD (gastroesophageal reflux disease): Status: Acute Category: Medical Code(s): K21.9 - Gastro-esophageal reflux disease without esophagitis (10) Obesity: Status: Acute Category: Medical Code(s): E66.9 - Obesity, unspecified Plan 68 year old female presented to the [facility] ED for c/o SOB. PMHX of CAD, COPD, HLD, DM, and GERD. She arrived by EMS and recieved [employer]. She reports use of nitroglycerin for chest pain earlier tonight and hypoglycemia. In the ED she was given Duonebs and IV magnesium that improved her respiratory distress. Her workup revealed a leukocytosis of 17, negative troponin, and RLL pneumonia on chest xray. She was started on IV levofloxacin. The ED physician consulted the hospitalist team for further medical management. I admitted the pt to the medical floor. She arrives to the floor in no acute distress. Plan as to follow: COPD EXACERBATION PNEUMONIA -Continue IV levofloxacin. -Chest xray reviewed and reveals RLL pneumonia. -Continue streoids - Pulmonary consulted - appreciate recommendations -duonebs q 6 hr , Trelogy per pulmonary Chest pain CAD suspect cardiac origin, tropinin negative continue ASA, Statin, PRN SL Nitroglycerin ordered cardiology consulted - plan for cardiac cath today DM -SSI HTN HLD HYPOTHYROID GERD -tsh pending -continue home medications of amlodipine, aspirin, lipitor, bupropion, plavix, prozac, gabapentin, levothyroxine, methadone, and protonix. OBESITY -complicates all aspects of care FULL CODE DIABETIC DIET DVT: HEPARIN SQ
--- OUTSIDE RECORDS SUMMARY | 2023-12-03 14:11 | XMS_ITS | Summary of Care ---
Author Name Unknown Organization [facility] Address [address] [place] [address]- Encounter 07/24/19 - 08/02/19 [facility] [address] [place] [address] Encounter Diagnosis gait and ADL dysfunction secondary to pneumonia due to infectious organism, unspecified part of thelung(Discharge Diagnosis) - 07/24/19 Attending Physician: Joe Goldman DO Admitting Physician: Joe Goldman DO Referring Physician: Marin Anton Allergies, Adverse Reactions, Alerts Substance Reaction Severity Status sulfa drugs Active Nubain Active Phenergan Active Levaquin Active NSAIDs Active Enoxaparin Sodium Active Medications aspirin 81 mg oral tablet, chewable 81 mg = 1 tab, Tab-Chew, Oral, Daily, 30 tab, 0 Refill(s), Print Requisition Start Date: 08/01/19 Status: Ordered Diflucan 100 mg oral tablet 100 mg, 1 tab, Tab, Oral, Daily, 3 tab, 0 Refill(s), Dispense: 3 day, Indication: Oropharyngeal Candidiasis (Thrush), Stop date 08/04/19 18:10:00 EDT, Print Requisition Start Date: 08/01/19 Stop Date: 08/04/19 Status: Ordered FLUoxetine 20 mg oral capsule 40 mg = 2 cap, Cap, Oral, Daily, 60 cap, 0 Refill(s), Print Requisition Start Date: 08/01/19 Status: Ordered fluticasone 50 mcg/inh nasal spray 100 mcg, 2 spray, [place]-Nasal, Nasal, Daily, 1 bottle, 0 Refill(s), Print Requisition Start Date: 08/01/19 Stop Date: 08/31/19 Status: Ordered hydrALAZINE 10 mg oral tablet 10 mg = 1 tab, Tab, Oral, TID, 90 tab, 0 Refill(s), Print Requisition Start Date: 08/01/19 Status: Ordered Lasix 40 mg oral tablet 40 mg = 1 tab, Tab, Oral, Daily, 30 tab, 0 Refill(s), Print Requisition Start Date: 08/01/19 Status: Ordered levothyroxine 25 mcg (0.025 mg) oral tablet 50 mcg = 2 tab, Tab, Oral, Daily, 60 tab, 0 Refill(s), Print Requisition Start Date: 08/01/19 Status: Ordered Lomotil 2.5 mg-0.025 mg oral tablet 1 tab, Tab, Oral, QID PRN, 28 tab, 0 Refill(s), Dispense: 7 day, Diarrhea, Stop date 08/08/19 18:08:00 EDT, Print Requisition Start Date: 08/01/19 Stop Date: 08/08/19 Status: Ordered Lopressor 50 mg oral tablet 12.5 mg = 0.25 tab, Tab, Oral, q12hr, 15 tab, 0 Refill(s), Print Requisition Start Date: 08/01/19 Status: Ordered metFORMIN 850 mg oral tablet 850 mg = 1 tab, Tab, Oral, BIDmeals, 60 tab, 0 Refill(s), Print Requisition Start Date: 08/01/19 Status: Ordered methadone 10 mg oral tablet 10 mg = 1 tab, Tab, Oral, QID, 0 Refill(s) Start Date: 08/01/19 Status: Ordered Neurontin 400 mg oral capsule 800 mg = 2 cap, Cap, Oral, QID, 240 cap, 0 Refill(s), Print Requisition Start Date: 08/01/19 Status: Ordered Norvasc 5 mg oral tablet 10 mg = 2 tab, Tab, Oral, Daily, 60 tab, 0 Refill(s), Print Requisition Start Date: 08/01/19 Status: Ordered pantoprazole 40 mg oral delayed release tablet 40 mg = 1 tab, Tab-DR, Oral, Before breakfast, 30 tab, 0 Refill(s), Print Requisition Start Date: 08/01/19 Status: Ordered predniSONE 10 mg oral tablet 10 mg = 1 tab, Tab, Oral, Daily, 3 tab, 0 Refill(s), Dispense: 3 day, Prednisone 10 mg daily x3 days Then prednisone 5 mg daily x3 days Then stop, Stop date 08/04/19 18:09:00 EDT, Print Requisition Start Date: 08/01/19 Stop Date: 08/04/19 Status: Ordered predniSONE 5 mg oral tablet 5 mg = 1 tab, Tab, Oral, Daily, 3 tab, 0 Refill(s), Print Requisition Start Date: 08/01/19 Stop Date: 08/04/19 Status: Ordered Preparation H Medicated Wipes 50% topical pad 1 EA, Pad, TOP, 6x/Day PRN, 0 Refill(s), Itching Start Date: 08/01/19 Status: Ordered Senna Plus 50 mg-8.6 mg oral tablet 2 tab, Tab, Oral, QHS, 28 tab, 0 Refill(s), Dispense: 14 day, Stop date 08/15/19 18:11:00 EDT, Print Requisition Start Date: 08/01/19 Stop Date: 08/15/19 Status: Ordered Tylenol Extra Strength 650 mg = 2 tab, Tab, Oral, q4hr PRN, 0 Refill(s), PAIN (Scale 4-6) Start Date: 08/01/19 Status: Ordered Vitamin D3 5000 intl units oral tablet 5,000 IntlUnit = 1 tab, Tab, Oral, Daily, 30 tab, 0 Refill(s), Print Requisition Start Date: 08/01/19 Status: Ordered Problem List Condition Effective Dates Status Health Status Inform ant Impaired exercise tolerance(Confirmed) Active Muscle weakness of lower extremity(Confirmed) 10/14/00 Active Results Laboratory List Name Date Glucose, POC 08/02/19 Glucose, POC 08/01/19 Glucose, POC 08/01/19 Urinalysis Complete w/Rflx Culture HSL 1 Basic Metabolic Panel [facility] 07/31/19 Complete Blood Count w/Auto Diff HSL Manual Diff HSL 07/31/19 Automated Diff HSL 07/28/19 Basic Metabolic Panel HSL 07/28/19 Complete Blood Count w/Auto Diff HSL Automated Diff HSL 07/25/19 Complete Blood Count w/Auto Diff HSL 09/02 Basic Metabolic Panel [facility] 07/25/19 LABORATORY Most recent to oldest [Reference Range]: 1 2 3 Glucose POC RALS [74-106 mg/dL] 195 mg/dL *HI* (08/02/19 5:48 AM) 127 mg/dL *HI* (08/01/19 10:12 PM) 301 mg/dL *HI* (08/01/19 4:01 PM) Blood Glucose, Capillary [74-106 mg/dL] 195 mg/dL *HI* (08/02/19 6:05 AM) 301 mg/dL *HI* (08/01/19 4:33 PM) WBC HSL [4.5-11.5 x10(3)/mcL] 26.4 x10(3)/mcL 1 *CRIT* (07/31/19 6:20 AM) 19.9 x10(3)/mcL *HI* (07/28/19 6:36 AM) 17.8 x10(3)/mcL *HI* (07/25/19 10:33 AM) RBC HSL [3.70-5.20 x10(6)/mcL] 4.06 x10(6)/mcL (07/31/19 6:20 AM) 3.94 x10(6)/mcL (07/28/19 6:36 AM) 3.87 x10(6)/mcL (07/25/19 10:33 AM) Hemoglobin HSL [12.0-15.7 gm/dL] 11.1 gm/dL *LOW* (07/31/19 6:20 AM) 10.7 gm/dL *LOW* (07/28/19 6:36 AM) 10.6 gm/dL *LOW* (07/25/19 10:33 AM) Hematocrit HSL [35.0-46.0 %] 37.2 % (07/31/19 6:20 AM) 36.1 % (07/28/19 6:36 AM) 36.0 % (07/25/19 10:33 AM) MCV HSL [78.6-102.2 fL] 91.6 fL (07/31/19 6:20 AM) 91.6 fL (07/28/19 6:36 AM) 93.0 fL (07/25/19 10:33 AM) MCH HSL [26.0-34.0 pg] 27.3 pg (07/31/19 6:20 AM) 27.2 pg (07/28/19 6:36 AM) 27.4 pg (07/25/19 10:33 AM) MCHC HSL [31.8-35.1 gm/dL] 29.8 gm/dL *LOW* (07/31/19 6:20 AM) 29.6 gm/dL *LOW* (07/28/19 6:36 AM) 29.4 gm/dL *LOW* (07/25/19 10:33 AM) Platelet HSL [150-450 x10(3)/mcL] 528 x10(3)/mcL *HI* (07/31/19 6:20 AM) 598 x10(3)/mcL *HI* (07/28/19 6:36 AM) 527 x10(3)/mcL *HI* (07/25/19 10:33 AM) RDW-CV% HSL [11.7-14.4 %] 17.1 % *HI* (07/31/19 6:20 AM) 16.9 % *HI* (07/28/19 6:36 AM) 17.5 % *HI* (07/25/19 10:33 AM) RDW-SD HSL [36.4-46.3 fL] 55.1 fL *HI* (07/31/19 6:20 AM) 54.0 fL *HI* (07/28/19 6:36 AM) 54.0 fL *HI* (07/28/19 6:36 AM) MPV HSL 11.1 *NA* (07/31/19 6:20 AM) 11.0 *NA* (07/28/19 6:36 AM) 10.7 *NA* (07/25/19 10:33 AM) Neutrophil Auto HSL [39.6-77.8 %] 65.0 % (07/28/19 6:36 AM) 37.7 % *LOW* (07/25/19 10:33 AM) Lymphocyte Auto HSL [17.5-52.8 %] 27.4 % (07/28/19 6:36 AM) 46.3 % (07/25/19 10:33 AM) Monocyte Auto HSL [3.0-10.4 %] 6.8 % (07/28/19 6:36 AM) 14.9 % *HI* (07/25/19 10:33 AM) Eosinophil Auto HSL [0.0-7.0 %] 0.3 % (07/28/19 6:36 AM) 0.6 % (07/25/19 10:33 AM) Basophil Auto HSL [0.0-0.9 %] 0.1 % (07/28/19 6:36 AM) 0.1 % (07/25/19 10:33 AM) Immature Gran Auto HSL [0.0-0.5 %] 0.4 % (07/28/19 6:36 AM) 0.4 % (07/25/19 10:33 AM) Neutrophil Absolute HSL [1.60-6.90 x10(3)/mcL] >9.00 x10(3)/mcL 2 *HI* (07/28/19 6:36 AM) 6.73 x10(3)/mcL (07/25/19 10:33 AM) Lymphocyte Absolute HSL [0.9-2.8 x10(3)/mcL] 5.4 x10(3)/mcL *HI* (07/28/19 6:36 AM) 8.3 x10(3)/mcL *HI* (07/25/19 10:33 AM) Monocyte Absolute HSL [<=1.00 x10(3)/mcL] 1.36 x10(3)/mcL *HI* (07/28/19 6:36 AM) 2.66 x10(3)/mcL *HI* (07/25/19 10:33 AM) Eosinophil Absolute HSL [0.00-0.40 x10(3)/mcL] 0.06 x10(3)/mcL (07/28/19 6:36 AM) 0.11 x10(3)/mcL (07/25/19 10:33 AM) Basophil Absolute HSL [0.00-0.05 x10(3)/mcL] 0.01 x10(3)/mcL (07/28/19 6:36 AM) 0.01 x10(3)/mcL (07/25/19 10:33 AM) Immature Gran Absolute HSL [0.00-0.04 x10(3)/mcL] 0.07 x10(3)/mcL *HI* (07/28/19 6:36 AM) 0.07 x10(3)/mcL *HI* (07/25/19 10:33 AM) Segs Man HSL [40-78 %] 64 % (07/31/19 6:20 AM) Lymphocyte Man HSL [18-53 %] 32 % (07/31/19 6:20 AM) Monocyte Man HSL [3-10] 4 (07/31/19 6:20 AM) Eosinophil Man HSL [<=7 %] 0 % (07/31/19 6:20 AM) Basophil Man HSL [<=1 %] 0 % (07/31/19 6:20 AM) Platelet Estimation HSL Mkd Increase *ABN* (07/31/19 6:20 AM) RBC Morphology HSL Slightly Abn. *ABN* (07/31/19 6:20 AM) Hypochromasia HSL Rare *ABN* (07/31/19 6:20 AM) Anisocyte HSL Rare (07/31/19 6:20 AM) Color UR HSL [yellow] yellow (08/01/19 2:38 AM) Appearance UR HSL [clear] clear (08/01/19 2:38 AM) Specific [place] UR HSL [1.010-1.040] 1.005 (08/01/19 2:38 AM) pH UR HSL [5] 7 (08/01/19 2:38 AM) Glucose UR HSL norm *NA* (08/01/19 2:38 AM) Bilirubin UR HSL neg *NA* (08/01/19 2:38 AM) Ketones UR HSL neg *NA* (08/01/19 2:38 AM) Blood UR HSL neg *NA* (08/01/19 2:38 AM) Protein UR HSL neg *NA* (08/01/19 2:38 AM) Urobilinogen UR HSL norm *NA* (08/01/19 2:38 AM) Nitrite UR HSL neg *NA* (08/01/19 2:38 AM) Leukocyte Esterase UR HSL [Neg mg/dL] 25 mg/dL *ABN* (08/01/19 2:38 AM) Squamous Epithelials UR HSL [0-5] Rare (08/01/19 2:38 AM) Bacteria UR HSL None Seen (08/01/19 2:38 AM) WBC UR HSL [None Seen] None Seen (08/01/19 2:38 AM) RBC UR HSL [None Seen] None Seen (08/01/19 2:38 AM) Specimen Source UR HSL Clean Catch (08/01/19 2:38 AM) Estimated Creatinine Clearance 43.84 mL/min (07/31/19 9:09 AM) 45.86 mL/min (07/28/19 8:58 AM) 55.41 mL/min (07/27/19 11:28 PM) Creatinine Level 0.91 mg/dL (07/31/19 6:20 AM) 0.87 mg/dL (07/28/19 6:36 AM) 0.72 mg/dL (07/25/19 9:40 AM) Sodium HSL [138-146 mmol/L] 137 mmol/L *LOW* (07/31/19 6:20 AM) 136 mmol/L *LOW* (07/28/19 6:36 AM) 139 mmol/L (07/25/19 9:40 AM) Potassium HSL [3.6-5.1 mmol/L] 3.5 mmol/L *LOW* (07/31/19 6:20 AM) 4.1 mmol/L (07/28/19 6:36 AM) 3.6 mmol/L (07/25/19 9:40 AM) Chloride HSL [101-111 mmol/L] 91 mmol/L *LOW* (07/31/19 6:20 AM) 94 mmol/L *LOW* (07/28/19 6:36 AM) 99 mmol/L *LOW* (07/25/19 9:40 AM) Carbon Dioxide HSL [22.0-32.0 mmol/L] 36.0 mmol/L *HI* (07/31/19 6:20 AM) 35.0 mmol/L *HI* (07/28/19 6:36 AM) 30.0 mmol/L (07/25/19 9:40 AM) Anion Gap HSL [8-16 mmol/L] 14 mmol/L (07/31/19 6:20 AM) 11 mmol/L (07/28/19 6:36 AM) 14 mmol/L (07/25/19 9:40 AM) Glucose HSL [74-118 mg/dL] 144 mg/dL *HI* (07/31/19 6:20 AM) 174 mg/dL *HI* (07/28/19 6:36 AM) 141 mg/dL *HI* (07/25/19 9:40 AM) BUN HSL [8.0-26.0 mg/dL] 23.0 mg/dL (07/31/19 6:20 AM) 20.0 mg/dL (07/28/19 6:36 AM) 12.0 mg/dL (07/25/19 9:40 AM) Creatinine HSL [0.44-1.00 mg/dL] 0.91 mg/dL (07/31/19 6:20 AM) 0.87 mg/dL (07/28/19 6:36 AM) 0.72 mg/dL (07/25/19 9:40 AM) eGFR-AA HSL 127 *NA* (07/31/19 6:20 AM) 134 *NA* (07/28/19 6:36 AM) 166 *NA* (07/25/19 9:40 AM) eGFR-Non AA HSL 105 *NA* (07/31/19 6:20 AM) 110 *NA* (07/28/19 6:36 AM) 137 *NA* (07/25/19 9:40 AM) BUN/Creat Ratio HSL [5.0-20.0 ratio] 25.3 ratio *HI* (07/31/19 6:20 AM) 23.0 ratio *HI* (07/28/19 6:36 AM) 16.7 ratio (07/25/19 9:40 AM) Calcium Total HSL [8.9-10.3 mg/dL] 9.0 mg/dL (07/31/19 6:20 AM) 9.6 mg/dL (07/28/19 6:36 AM) 8.7 mg/dL *LOW* (07/25/19 9:40 AM) 1Result Comment: Critical result called to Dr. Goldman07/31/2019 09:42:47 EDT by Yajaira Perales MT([facility]) 2Result Comment: verified Vital Signs Most recent to oldest [Reference Range]: 1 2 3 Temperature Oral F [96.4-99.1 DegF] 97.5 DegF (08/02/19 7:41 AM) 98 DegF (08/01/19 8:14 PM) 98.7 DegF (08/01/19 7:25 AM) Peripheral Pulse Rate [60-100 bpm] 62 bpm (08/02/19 9:43 AM) 62 bpm (08/02/19 7:41 AM) 72 bpm (08/01/19 8:14 PM) Respiratory Rate [14-20 br/min] 18 br/min (08/02/19 7:41 AM) 18 br/min (08/01/19 8:14 PM) 18 br/min (08/01/19 7:25 AM) Blood Pressure [90-140/60-90 mmHg] 128/72mmHg (08/02/19 9:43 AM) 128/72mmHg (08/02/19 9:43 AM) 128/72mmHg (08/02/19 9:43 AM) Extremity used to obtain blood pressure Right Arm (08/02/19 7:41 AM) Right Arm (08/01/19 8:14 PM) Left Arm (08/01/19 11:42 AM) Cuff Size. Medium (08/02/19 7:41 AM) Large (08/01/19 8:14 PM) Medium (08/01/19 11:42 AM) Peripheral Pulse Rate with Activity 65 bpm (07/30/19 12:36 PM) 79 bpm (07/30/19 9:15 AM) 96 bpm (07/30/19 7:04 AM) Vital Signs Additional Information trial on room air as pt states she removed O2 at times (07/28/19 1:52 PM) Vital Signs w/ Activity Additional Info level surface gait >200' (07/30/19 9:15 AM) after ADL (07/30/19 7:04 AM) Pt unable to recover to 90% with PLB and rest pt only able to achieve 89% after 2 min on room air. Pt returned to supplemental O2 at 2L (07/28/19 8:29 AM) Peripheral Pulse Rate Post 77 (07/30/19 7:04 AM) 69 (07/28/19 1:52 PM) SpO2 Post 96 (07/30/19 7:04 AM) 96 (07/28/19 1:52 PM) 95 (07/28/19 8:29 AM) Oxygen Therapy Post Nasal cannula (07/30/19 7:04 AM) Nasal cannula (07/28/19 8:29 AM) Oxygen Flow Rate Post 2 (07/30/19 7:04 AM) 2 (07/28/19 8:29 AM) Temperature Oral [35.8-37.3 DegC] 37 DegC (07/24/19 3:20 PM)
--- OUTSIDE RECORDS SUMMARY | 2023-12-03 14:11 | XMS_ITS | Summary of Care ---
Author Name Unknown Organization [facility] Address [address] [place] [address]- Encounter 12/07/22 - 12/14/22 [facility] [address] [place] [address] Discharge Disposition: Home with Home Health Care Attending Physician: Lis Felton MD Admitting Physician: Lis Felton MD Referring Physician: Anna Zimmerman Allergies, Adverse Reactions, Alerts Substance Reaction Severity Status NSAIDs Active Enoxaparin Sodium Active Levaquin Active sulfa drugs Active Nubain Active Phenergan Active Medications albuterol-ipratropium 2.5 mg-0.5 mg/3 mL inhalation solution 3 mL, Soln-Inh, MetaNeb, q6hr RT PRN, 100 mL, 0 Refill(s), Shortness of breath, Route to Pharmacy Electronically, [facility], 150, cm, 12/07/22 15:44:00 EST, Height/Length Dosing, 94.3, kg, 12/07/22 15:44:00 EST, Weight Dosing Start Date: 12/13/22 Status: Ordered ALPRAZolam 0.25 mg oral tablet 0.25 mg = 1 tab, Tab, Oral, q8hr PRN, 0 Refill(s), Anxiety Start Date: 12/13/22 Status: Ordered amLODIPine 2.5 mg oral tablet 2.5 mg = 1 tab, Tab, Oral, Daily, 30 tab, 0 Refill(s), Route to Pharmacy Electronically, [facility], 150, 12/07/22 15:44:00 EST, Height/Length Dosing, cm, 94.3, 12/07/22 15:44:00 EST, Weight Dosing, kg Start Date: 12/13/22 Status: Ordered aspirin 81 mg oral delayed release tablet 81 mg, = 1 tab, Indication: Cerebrovascular accident Tab-EC, Oral, Daily, 30 tab, 0 Refill(s), Route to Pharmacy Electronically, [facility], 150, 12/07/22 15:44:00 EST, Height/Length Dosing, cm, 94.3, 12/07/22 15:44:00 EST, Weight D... Start Date: 12/13/22 Status: Ordered atorvastatin 40 mg oral tablet 40 mg = 1 tab, Tab, Oral, QHS, 30 tab, 0 Refill(s), Route to Pharmacy Electronically, [facility], 150, 12/07/22 15:44:00 EST, Height/Length Dosing, cm, 94.3, 12/07/22 15:44:00 EST,Weight Dosing, kg Start Date: 12/13/22 Status: Ordered bisoprolol 5 mg oral tablet 5 mg, 1 tab, Tab, Oral, Daily, 30 tab, 0 Refill(s), Route to Pharmacy Electronically, [facility], 150, 12/07/22 15:44:00 EST, Height/Length Dosing, cm, 94.3, 12/07/22 15:44:00 EST,Weight Dosing, kg Start Date: 12/13/22 Status: Ordered bumetanide 1 mg oral tablet 1 mg = 1 tab, Tab, Oral, Daily, 30 tab, 0 Refill(s), Route to Pharmacy Electronically, [facility], 150, 12/07/22 15:44:00 EST, Height/Length Dosing, cm, 94.3, 12/07/22 15:44:00 EST, Weight Dosing, kg Start Date: 12/13/22 Status: Ordered clopidogrel 75 mg oral tablet 75 mg, = 1 tab, Indication: Cerebrovascular accident Tab, Oral, Daily, 30 tab, 0 Refill(s), Route to Pharmacy Electronically, [facility], 150, 12/07/22 15:44:00 EST, Height/Length Dosing, cm, 94.3, 12/07/22 15:44:00 EST, Weight Dosi... Start Date: 12/13/22 Status: Ordered empagliflozin 25 mg oral tablet 25 mg, = 1 tab, Indication: Hyperglycemia Tab, Oral, Daily, 30 tab, 0 Refill(s), Route to Pharmacy Electronically, [facility], 150, 12/07/22 15:44:00 EST, Height/Length Dosing, cm,94.3, 12/07/22 15:44:00 EST, Weight Dosing, kg Start Date: 12/13/22 Status: Ordered ergocalciferol 1.25 mg (50,000 intl units) oral capsule 50,000 IntlUnit = 1 cap, Cap, Oral, Weekly, 4 cap, 0 Refill(s), Route to Pharmacy Electronically, [facility], 150, 12/07/22 15:44:00 EST, Height/Length Dosing, cm, 94.3, 12/07/22 15:44:00 EST, Weight Dosing, kg Start Date: 12/13/22 Status: Ordered escitalopram 10 mg oral tablet 20 mg = 2 tab, Tab, Oral, Daily, 60 tab, 0 Refill(s), Route to Pharmacy Electronically, [facility], 150, 12/07/22 15:44:00 EST, Height/Length Dosing, cm, 94.3, 12/07/22 15:44:00 EST, Weight Dosing, kg Start Date: 12/13/22 Status: Ordered ferrous sulfate 324 mg (65 mg elemental iron) oral delayed release tablet 324 mg = 1 tab, Tab-DR, Oral, Daily, 30 tab, 0 Refill(s), Route to Pharmacy Electronically, [facility], 150, 12/07/22 15:44:00 EST, Height/Length Dosing, cm, 94.3, 12/07/22 15:44:00 EST, Weight Dosing, kg Start Date: 12/13/22 Status: Ordered fluticasone 50 mcg/inh nasal spray 100 mcg, 2 spray, [place]-Nasal, Nasal, Daily, 50 mL, 0 Refill(s), Route to Pharmacy Electronically, [facility], 150, 12/07/22 15:44:00 EST, Height/Length Dosing, cm, 94.3, 12/07/22 15:44:00 EST, Weight Dosing, kg Start Date: 12/13/22 Status: Ordered gabapentin 400 mg oral capsule 800 mg, 2 cap, Indication: Diabetic Peripheral Neuropathy Cap, Oral, QID, 240 cap, 0 Refill(s), Route to Pharmacy Electronically, [facility], 150, 12/07/22 15:44:00 EST, Height/Length Dosing, cm, 94.3, 12/07/22 15:44:00 EST, kg, Iván... Start Date: 12/13/22 Status: Ordered guaiFENesin 600 mg oral tablet, extended release 600 mg = 1 tab, Tab-ER, Oral, BID, 60 tab, 0 Refill(s), Route to Pharmacy Electronically, [facility], 150, 12/07/22 15:44:00 EST, Height/Length Dosing, cm, 94.3, 12/07/22 15:44:00 EST, Weight Dosing, kg Start Date: 12/13/22 Status: Ordered insulin aspart 100 units/mL injectable solution Standard, Indication: Hyperglycemia Injection-Insulin (soln), Subcutaneous, WMHS, 15 mL, 0 Refill(s), For BS <200 = 0 units BS 200-250 = 2 units BS 251-300 = 4 units BS 301-350 = 6 units BS 351-400 = 8 units BS >401 = 10 units and call MD, Route... Start Date: 12/13/22 Status: Ordered Insulin Aspart STANDARD Sliding Scale Standard, Indication: Hyperglycemia, Subcutaneous, Start date 12/11/22 12:00:00 EST, For BS <200= 0 units BS 200-250 = 2 units BS 251-300 = 4 units BS 301-350 = 6 units BS >350 = 8 units and call MD Start Date: 12/11/22 Stop Date: 12/11/22 Status: Completed Insulin Aspart STANDARD Sliding Scale Standard, Indication: Hyperglycemia, Subcutaneous, Start date 12/11/22 8:00:00 EST, For BS <200 = 0 units BS 200-250 = 2 units BS 251-300 = 4 units BS 301-350 = 6 units BS >350 = 8 units and call MD Start Date: 12/11/22 Stop Date: 12/11/22 Status: Completed Levemir 100 units/mL subcutaneous solution 35 units, Indication: Hyperglycemia Injection-Insulin (soln), Subcutaneous, QHS, 15 mL, 0 Refill(s), Route to Pharmacy Electronically, [facility], 150, 12/14/22 7:01:00 EST, Height/Length Dosing, cm, 100.6, 12/14/22 7:01:00 EST, Iván... Start Date: 12/14/22 Status: Ordered levothyroxine 50 mcg (0.05 mg) oral tablet 50 mcg = 1 tab, Tab, Oral, Daily, 30 tab, 0 Refill(s), Route to Pharmacy Electronically, [facility], 150, 12/07/22 15:44:00 EST, Height/Length Dosing, cm, 94.3, 12/07/22 15:44:00 EST, Weight Dosing, kg Start Date: 12/13/22 Status: Ordered lidocaine 4% topical film 1 patch, Film, Transdermal, qAM, 30 patch, 0 Refill(s), Route to Pharmacy Electronically, [facility], 150, 12/07/22 15:44:00 EST, Height/Length Dosing, cm, 94.3, 12/07/22 15:44:00 EST, Weight Dosing, kg Start Date: 12/13/22 Status: Ordered magnesium oxide 400 mg oral tablet 400 mg = 1 tab, Tab, Oral, Daily, 30 tab, 0 Refill(s), Route to Pharmacy Electronically, [facility], 150, 12/07/22 15:44:00 EST, Height/Length Dosing, cm, 94.3, 12/07/22 15:44:00 EST, Weight Dosing, kg Start Date: 12/13/22 Status: Ordered melatonin 3 mg oral tablet 6 mg = 2 tab, Tab, Oral, QHS, 60 tab, 0 Refill(s), Route to Pharmacy Electronically, [facility], 150, 12/07/22 15:44:00 EST, Height/Length Dosing, cm, 94.3, 12/07/22 15:44:00 EST, Weight Dosing, kg Start Date: 12/13/22 Status: Ordered methadone 10 mg oral tablet 10 mg = 1 tab, Tab, Oral, QID, 0 Refill(s), Indication: Opioid Use Disorder Start Date: 12/13/22 Status: Ordered [place] 5 mg-325 mg oral tablet 1 tab, Tab, Oral, q4hr PRN, 0 Refill(s), PAIN (Scale 7-10) Start Date: 12/13/22 Status: Ordered NovoLOG 100 units/mL injectable solution 9 units, Indication: Hyperglycemia Injection-Insulin (soln), Subcutaneous, TIDmeals, 15 mL, 0 Refill(s), Route to Pharmacy Electronically, [facility], 150, 12/14/22 7:01:00 EST, Height/Length Dosing, cm, 100.6, 12/14/22 7:01:00 EST,... Start Date: 12/14/22 Status: Ordered pantoprazole 40 mg oral delayed release tablet 40 mg = 1 tab, Tab-DR, Oral, Daily, 30 tab, 0 Refill(s), Route to Pharmacy Electronically, [facility], 150, 12/07/22 15:44:00 EST, Height/Length Dosing, cm, 94.3, 12/07/22 15:44:00EST, Weight Dosing, kg Start Date: 12/13/22 Status: Ordered predniSONE 20 mg oral tablet 20 mg = 1 tab, Tab, Oral, Daily, 30 tab, 0 Refill(s), Route to Pharmacy Electronically, [facility], 150, 12/07/22 15:44:00 EST, Height/Length Dosing, cm, 94.3, 12/07/22 15:44:00 EST, Weight Dosing, kg Start Date: 12/13/22 Status: Ordered Problem List Condition Effective Dates Status Health Status Inform ant At risk of venous thromboembolus(Confirmed) 1 12/08/22 Active Impaired exercise tolerance(Confirmed) Active Muscle weakness of lower extremity(Confirmed) Active 1Problem added by Discern Expert Rule: EBN_VTERISKPROB_3 Results Laboratory List Name Date Glucose, POC 12/14/22 Basic Metabolic Panel HSL (BMP HSL) Complete Blood Count w/o Diff HSL (CBC w /o Diff HSL) 12/14/22 Glucose, POC 12/13/22 Glucose, POC 12/13/22 Basic Metabolic Panel HSL (BMP HSL) 12/11 Complete Blood Count w/o Diff HSL (CBC w /o Diff HSL) 12/11/22 C difficile Toxin Gene (PCR) HSL (CDiff Toxin Gene (PCR) HSL) 12/10/22 Basic Metabolic Panel HSL (BMP HSL) 12/09 Complete Blood Count w/Auto Diff HSL (CB C w/Auto Diff HSL) 12/09/22 Manual Diff HSL 12/09/22 Complete Blood Count w/Auto Diff HSL 11/16 02/04 Comprehensive Metabolic Panel HSL 3 Magnesium HSL 12/08/22 Manual Diff HSL 12/08/22 Phosphorus HSL 12/08/22 Most recent to oldest [Reference Range]: 1 2 3 Creatinine Level 1.00 mg/dL (12/14/22 7:07 AM) 1.00 mg/dL (12/11/22 5:56 AM) 0.90 mg/dL (12/09/22 5:21 AM) Estimated Creatinine Clearance 38.36 mL/min 1 (12/14/22 7:07 AM) 38.36 mL/min 2 (12/14/22 7:01 AM) 38.36 mL/min 3 (12/11/22 5:56 AM) Glucose POC RALS [74-106 mg/dL] 185 mg/dL *HI* (12/14/22 7:32 AM) 247 mg/dL *HI* (12/13/22 9:02 PM) 268 mg/dL *HI* (12/13/22 5:07 PM) Corrected WBC HSL [4-12 x10(3)/mcL] 25 x10(3)/mcL *HI* (12/09/22 5:21 AM) 26 x10(3)/mcL 4 *CRIT* (12/08/22 6:19 AM) WBC HSL [4.4-11.6 10^3/uL] 25.2 10^3/uL 5 *CRIT* (12/14/22 7:07 AM) 21.5 10^3/uL *HI* (12/11/22 5:56 AM) 25.0 10^3/uL *HI* (12/09/22 5:21 AM) RBC HSL [03.70-05.20 10^3/uL] 03.68 10^3/uL *LOW* (12/14/22 7:07 AM) 04.13 10^3/uL (12/11/22 5:56 AM) 04.04 10^3/uL (12/09/22 5:21 AM) Hemoglobin HSL [11.9-15.8 g/dL] 10.8 g/dL *LOW* (12/14/22 7:07 AM) 11.9 g/dL (12/11/22 5:56 AM) 11.6 g/dL *LOW* (12/09/22 5:21 AM) Hematocrit HSL [34.9-46.1 %] 33.9 % *LOW* (12/14/22 7:07 AM) 41.0 % (12/11/22 5:56 AM) 39.0 % (12/09/22 5: AM) MCV HSL [78.5-102.3 fL] 92.0 fL (12/14/22 7:07 AM) 99.2 fL (12/11/22 5:56 AM) 96.5 fL (12/09/22 5:21 AM) MCH HSL [25.9-34.1 g/dL] 29.4 g/dL (12/14/22 7:07 AM) 28.9 g/dL (12/11/22 5:56 AM) 28.7 g/dL (12/09/22 5:21 AM) MCHC HSL [31.9-35.4 g/dL] 31.9 g/dL (12/14/22 7:07 AM) 29.1 g/dL *LOW* (12/11/22 5:56 AM) 29.7 g/dL *LOW* (12/09/22 5:21 AM) Platelet HSL [149-451 10^3/uL] 404 10^3/uL (12/14/22 7:07 AM) 346 10^3/uL (12/11/22 5:56 AM) 386 10^3/uL (12/09/22 5:21 AM) RDW-CV% HSL [11.6-14.5 %] 20.6 % *HI* (12/14/22 7:07 AM) 21.9 % *HI* (12/11/22 5:56 AM) 21.5 % *HI* (12/09/22 5:21 AM) RDW-SD HSL [36.3-46.4 fL] 67.8 fL *HI* (12/14/22 7:07 AM) 78.8 fL *HI* (12/11/22 5:56 AM) 75.3 fL *HI* (12/09/22 5:21 AM) MPV HSL [8.9-13.1 fL] 9.8 fL (12/14/22 7:07 AM) 9.6 fL (12/11/22 5:56 AM) 10.6 fL (12/09/22 5:21 AM) Segs Man HSL [40-78 %] 59 % (12/09/22 5:21 AM) 42 % (12/08/22 6:19 AM) Lymphocyte Man HSL [18-53 %] 34 % (12/09/22 5:21 AM) 54 % *HI* (12/08/22 6:19 AM) Monocyte Man HSL [3-10] 7 (12/09/22 5:21 AM) 4 (12/08/22 6:19 AM) Eosinophil Man HSL [<=7 %] 0 % (12/09/22 5:21 AM) 0 % (12/08/22 6:19 AM) Basophil Man HSL [<=1 %] 0 % (12/09/22 5:21 AM) 0 % (12/08/22 6:19 AM) Platelet Estimation HSL Adequate (12/09/22 5:21 AM) Adequate (12/08/22 6:19 AM) RBC Morphology HSL Abnormal *ABN* (12/09/22 5:21 AM) Abnormal *ABN* (12/08/22 6:19 AM) Microcyte HSL Rare *ABN* (12/09/22 5:21 AM) Rare *ABN* (12/08/22 6:19 AM) Macrocyte HSL Rare *ABN* (12/09/22 5:21 AM) Anisocyte HSL 1+ *ABN* (12/09/22 5:21 AM) 2+ *ABN* (12/08/22 6:19 AM) Poikilocyte HSL 1+ *ABN* (12/09/22 5:21 AM) Ovalo/Elliptocyte HSL 2+ *ABN* (12/08/22 6:19 AM) Tear Cell HSL Rare *ABN* (12/08/22 6:19 AM) Acanthocyte HSL 1+ *ABN* (12/09/22 5:21 AM) 1+ *ABN* (12/08/22 6:19 AM) Schistocyte HSL Rare *ABN* (12/09/22 5:21 AM) Rare *ABN* (12/08/22 6:19 AM) Target Cell HSL Rare *ABN* (12/09/22 5:21 AM) Rare *ABN* (12/08/22 6:19 AM) Stomatocyte HSL Rare *ABN* (12/08/22 6:19 AM) Sodium HSL [135.9-146.1 mEq/L] 141.0 mEq/L (12/14/22 7:07 AM) 140.0 mEq/L (12/11/22 5:56 AM) 137.0 mEq/L (12/09/22 5:21 AM) Potassium HSL [3.4-4.6 mEq/L] 4.4 mEq/L (12/14/22 7:07 AM) 4.2 mEq/L (12/11/22 5:56 AM) 5.1 mEq/L *HI* (12/09/22 5:21 AM) Chloride HSL [95.9-106.1 mEq/L] 100.0 mEq/L (12/14/22 7:07 AM) 102.0 mEq/L (12/11/22 5:56 AM) 101.0 mEq/L (12/09/22 5:21 AM) Carbon Dioxide HSL [21.9-29.1 mEq/L] 36.0 mEq/L *HI* (12/14/22 7:07 AM) 28.0 mEq/L (12/11/22 5:56 AM) 24.0 mEq/L (12/09/22 5:21 AM) Anion Gap HSL [8-16 mmol/L] 9 mmol/L (12/14/22 7:07 AM) 14 mmol/L (12/11/22 5:56 AM) 17 mmol/L *HI* (12/09/22 5:21 AM) Glucose HSL [74.9-115.1 mg/dL] 131.0 mg/dL *HI* (12/14/22 7:07 AM) 158.0 mg/dL *HI* (12/11/22 5:56 AM) 149.0 mg/dL *HI* (12/09/22 5:21 AM) BUN HSL [10.9-23.1 mg/dL] 29.0 mg/dL *HI* (12/14/22 7:07 AM) 20.0 mg/dL (12/11/22 5:56 AM) 21.0 mg/dL (12/09/22 5:21 AM) Creatinine HSL [0.6-1.6 mg/dL] 1.0 mg/dL (12/14/22 7:07 AM) 1.0 mg/dL (12/11/22 5:56 AM) 0.9 mg/dL (12/09/22 5:21 AM) eGFR-AA HSL 113 *NA* (12/14/22 7:07 AM) 117 *NA* (12/11/22 5:56 AM) 133 *NA* (12/09/22 5:21 AM) eGFR-Non AA HSL 93 *NA* (12/14/22 7:07 AM) 97 *NA* (12/11/22 5:56 AM) 110 *NA* (12/09/22 5:21 AM) BUN/Creat Ratio HSL [5-20 ratio] 29 ratio *HI* (12/14/22 7:07 AM) 20 ratio (12/11/22 5:56 AM) 23 ratio *HI* (12/09/22 5:21 AM) Calcium Total HSL [8.9-11.1 mg/dL] 9.1 mg/dL (12/14/22 7:07 AM) 8.4 mg/dL *LOW* (12/11/22 5:56 AM) 8.6 mg/dL *LOW* (12/09/22 5:21 AM) Albumin HSL [3.4-5.1 g/dL] 3.6 g/dL (12/08/22 6:19 AM) Protein Total HSL [5.9-8.4 g/dL] 6.1 g/dL (12/08/22 6:19 AM) Bilirubin Total HSL [0.1-1.4 mg/dL] 0.4 mg/dL (12/08/22 6:19 AM) Magnesium HSL [1.6-2.3 mg/dL] 1.5 mg/dL *LOW* (12/08/22 6:19 AM) Phosphorus HSL [3.3-4.6 mg/dL] 4.3 mg/dL (12/08/22 6:19 AM) Alkaline Phosphatase HSL [19.9-90.1 IU/L] 83.0 IU/L (12/08/22 6:19 AM) AST HSL [9.9-59.1 IU/L] 9.0 IU/L *LOW* (12/08/22 6:19 AM) ALT HSL [9.9-40.1 IU/L] 8.0 IU/L *LOW* (12/08/22 6:19 AM) Reason C Diff Toxin HSL Symptomatic (12/10/22 11:00 PM) Toxogenic C Diff HSL Stl Formed (12/10/22 11:00 PM) 027-NAP1-B1 HSL [Presumptive Neg] Not Performed (12/10/22 11:00 PM) Blood Glucose, Capillary [74-106 mg/dL] 357 mg/dL *HI* (12/11/22 5:30 PM) 184 mg/dL *HI* (12/11/22 12:58 PM) 204 mg/dL *HI* (12/11/22 9:11 AM) [place] Bodies HSL 1+ *ABN* (12/09/22 5:21 AM) 1Result Comment: Calculated using method: Cockcroft-Gault (default) Calculated using Formula : 0.85*(140-ageInYears)*IBW/(72*scrInMGperDL) Age: 67 (25753244046.0) Serum Creatinine: 1.00 mg/dL (41453228530.0) Height: 150 cm (35224662459.0) Weight: 100.6 kg (IBW = 43.327 kg) 2Result Comment: Calculated using method: Cockcroft-Gault (default) Calculated using Formula : 0.85*(140-ageInYears)*IBW/(72*scrInMGperDL) Age: 67 (17852631218.0) Serum Creatinine: 1.00 mg/dL (90090615300.0) Height: 150 cm (60105895183.0) Weight: 100.6 kg (IBW = 43.327 kg) 3Result Comment: Calculated using method: Cockcroft-Gault (default) Calculated using Formula : 0.85*(140-ageInYears)*IBW/(72*scrInMGperDL) Age: 67 (10783307841.0) Serum Creatinine: 1.00 mg/dL (22738037455.0) Height: 150 cm (31996777649.0) Weight: 94.3 kg (IBW = 43.327 kg) 4Result Comment: performed twice RBV: yes called to: Lis Felton at: 12/08/2022 09:22:26 EST by: Laura valladares 5Result Comment: Critical called to Dr Felton RBV 12/14/2022 08:36:12 EST DLG Vital Signs Most recent to oldest [Reference Range]: 1 2 3 Temperature Oral F [96.4-99.1 DegF] 97.6 DegF (12/13/22 8:10 PM) 98.1 DegF (12/13/22 7:48 AM) 98.8 DegF (12/12/22 8:24 PM) Peripheral Pulse Rate [60-100 bpm] 71 bpm (12/13/22 7:49 AM) 65 bpm (12/12/22 8:24 PM) 58 bpm *LOW* (12/12/22 7:45 AM) Respiratory Rate [14-20 br/min] 16 br/min (12/13/22 8:08 PM) 16 br/min (12/13/22 7:49 AM) 18 br/min (12/12/22 8:24 PM) Blood Pressure [90-140/60-90 mmHg] 114/70mmHg (12/13/22 7:48 AM) 129/75mmHg (12/12/22 8:24 PM) Systolic Blood Pressure [90-140 mmHg] 148 mmHg *HI* (12/12/22 7:45 AM) Diastolic Blood Pressure [60-90 mmHg] 84 mmHg (12/12/22 7:45 AM) Mean Arterial Pressure, Cuff 104 mmHg (12/13/22 8:08 PM) 84 mmHg (12/13/22 7:48 AM) 93 mmHg (12/12/22 8:24 PM) Extremity used to obtain blood pressure Right Arm (12/13/22 8:09 PM) Cuff Size. Medium 1 (12/13/22 8:09 PM) SpO2 with Activity [94-100 %] 92 % *LOW* (12/11/22 2:00 PM) Temperature Oral 36.4 DegC 2 (12/13/22 8:10 PM) 36.7 DegC 3 (12/13/22 7:48 AM) 37.1 DegC 4 (12/12/22 8:24 PM) 1Result Comment: lower forearm 2Result Comment: Charted by SYSTEM secondary to charting of Temperature Oral F on a Vitals Monitor. Rule: VITALSLINK_CALCULATIONS_2 3Result Comment: Charted by SYSTEM secondary to charting of Temperature Oral F on a Vitals Monitor. Rule: VITALSLINK_CALCULATIONS_2 4Result Comment: Charted by SYSTEM secondary to charting of Temperature Oral F on a Vitals Monitor. Rule: VITALSLINK_CALCULATIONS_2
[2023-12-03] MEDS: diphenhydrAMINE 50MG/ML VIAL 50 MG IV (14:37)
[2023-12-03] MEDS: FAMOTIDINE 20MG/2ML VIAL 20 MG IV (14:37)
[2023-12-03] MEDS: METHYLPREDNISOLONE SOD SUCC 125MG VIAL 125 MG IV (14:37)
[2023-12-03] MEDS: HEPARIN 1,000 UNITS/ML 10ML VIAL (CATH LAB) 10000 UNIT IV (14:38)
[2023-12-03] MEDS: NITROGLYCERIN 800MCG/8ML SYR (CATH LAB) 800 MCG IA (14:38)
[2023-12-03] MEDS: LIDOCAINE 1% 10ML MDV 20 ML IJ (14:38)
[2023-12-03] MEDS: VERAPAMIL 2.5MG/ML 2ML VIAL 2.5 MG IV (14:38)
[2023-12-03] MEDS: 0.9 % SODIUM CHLORIDE 500 ML 25 ML IV (14:39)
[2023-12-03] MEDS: HEPARIN 1,000 UNITS/500ML NS (CATH LAB) 3000 UNIT IV (14:39)
[2023-12-03] MEDS: MIDAZOLAM HCL 1MG/1ML 5ML VIAL 1 MG IV (14:39)
[2023-12-03] MEDS: FENTANYL 100MCG/2ML VIAL 50 MCG IV (14:40)
[2023-12-03] MEDS: IOPAMIDOL-370 (76%);100ML BOTTLE 130 ML IV (15:22)
--- NOTE | 2023-12-03 18:26 | PC.NURSE ---
Pt post cath.(R) radial cath site with tracelet on. Pt remains drowsy, Although she did eat dinner tonight. VSS. Call light within reach.
[2023-12-03 18:36] LABS: POC Glucose,Bedside 262 (70-110)
[2023-12-03 20:36] LABS: POC Glucose,Bedside 279 (70-110)
[2023-12-03] MEDS: ATORVASTATIN 40MG TABLET 40 MG PO (20:39)
[2023-12-03] MEDS: INSULIN DETEMIR 100 UNIT/ML 3ML FLEXPEN 50 UNIT SQ (20:40)
[2023-12-04] VITALS (9 sets, daily range): BP systolic 133–174; BP diastolic 55–93; PULSE 63–82; RESP 16–20; TEMP 36.7–36.9; O2SAT 92–98; BMI 45.2; BMI 45.1
[2023-12-04] MEDS: KETOROLAC 30MG/ML VIAL 15 MG IV ×3 (02:34→15:56)
--- NOTE | 2023-12-04 04:58 | PC.NURSE ---
Pt is alert and oriented. Ambulates to the restroom. Pt remains on baseline 2L NC, O2 sat >90%. Lung sounds wheezing and rhonchi noted. Right radial cath site, dressing CDI. Pt has been resting through the night. Pt complained of pain 1 time, treated per dec. Call light in reach.
[2023-12-04 06:27] LABS: POC Glucose,Bedside 148 (70-110)
[2023-12-04] MEDS: ACETAMINOPHEN 325MG TAB 650 MG PO ×2 (06:37→20:06)
[2023-12-04] MEDS: METHADONE 10MG TABLET 10 MG PO ×3 (06:38→17:09)
[2023-12-04] MEDS: LEVOTHYROXINE 50MCG (0.05MG) TAB 50 MCG PO (06:38)
[2023-12-04] MEDS: IPRATROPIUM/ALBUTEROL 3 ML NEB IH ×2 (06:45→10:10)
[2023-12-04] MEDS: FLUTICASONE/UMECLIDIN/VILANTER 100/62.5/25MCG INHALER 1 PUFF IH (06:49)
[2023-12-04 07:17] LABS: Basophils % 0.1 % (0.1-2.0); Eosinophils # 0.2 K/mm3 (0.0-0.4); Eosinophils % 1.1 % (0.1-12.0); Hematocrit 35.6 % (37.0-47.0); Hemoglobin 11.2 g/dL (12.2-16.2); Lymphocytes # 2.8 K/mm3 (0.7-4.5); Lymphocytes % 13.1 % (10-50); Mean Corpuscular HGB Conc 31.4 g/dL (31.8-35.4); Mean Corpuscular Hemoglobin 31.7 pg (27.0-31.2); Mean Corpuscular Volume 100.8 fl (81-99); Mean Platelet Volume 9.7 fl (7.4-10.4); Monocytes # 1.2 K/mm3 (0.1-1.0); Monocytes % 5.7 % (1.7-9.3); Neutrophils # 16.8 K/mm3 (1.8-7.8); Platelet Count 312 K/mm3 (142-424); Red Blood Count 3.53 M/mm3 (4.20-5.40); Red Cell Distribution Width 15.8 % (11.5-17.5)
[2023-12-04 07:19] LABS: Chloride 101 mmol/L (98-107); MANUAL DIFFERENTIAL MANUAL DIFFERENTIAL (MANUAL DIFF); Potassium 5.5 mmoL/L (3.5-5.1); Sodium 135 mmol/L (136-145)
[2023-12-04 07:21] LABS: Blood Urea Nitrogen 24 mg/dl (7-17); Creatinine Clearance Estimated 38 mL/min (50-200); Estimated Glomerular Filt Rate 63 ml/min (>60); GFR (African American) 76 ML/MIN (>60)
[2023-12-04 07:22] LABS: Anion Gap 4.5 mEq/L (5-15); Carbon Dioxide 35 mmol/L (22.0-30.0); Glucose 122 mg/dl (74-100)
[2023-12-04] MEDS: buPROPion HCL 75 MG TABLET PO ×2 (08:09→20:06)
[2023-12-04] MEDS: CITALOPRAM 40MG TABLET 40 MG PO (08:09)
[2023-12-04] MEDS: PANTOPRAZOLE 40MG TABLET 40 MG PO ×2 (08:09→20:06)
[2023-12-04] MEDS: AMLODIPINE 2.5MG TABLET 2.5 MG PO (08:09)
[2023-12-04] MEDS: FLUOXETINE 20MG CAPSULE 20 MG PO (08:09)
[2023-12-04] MEDS: CLOPIDOGREL 75MG TAB 75 MG PO (08:10)
[2023-12-04] MEDS: predniSONE 20MG TAB 40 MG PO (08:10)
[2023-12-04] MEDS: GABAPENTIN 800MG TABLET 800 MG PO ×4 (08:10→20:06)
[2023-12-04] MEDS: ASPIRIN 81MG CHEWABLE TABLET 81 MG PO (08:10)
[2023-12-04] MEDS: BISOPROLOL 5MG TABLET 2.5 MG PO (08:10)
[2023-12-04] MEDS: HEPARIN SODIUM 5,000 UNIT/ML VIAL 5000 UNIT SQ ×2 (08:11→20:07)
[2023-12-04 08:57] LABS: Lymphocytes % 17 % (10-50); Macrocytosis 1+; Monocytes % 5 % (2-9); Neutrophils % 78 % (42-76); Platelet Estimate Normal; Total Cells Counted 100
--- NOTE | 2023-12-04 09:32 | P.PN_ITS ---
Subjective *Date: 12/04/23 *Time: 10:12 Interval history: No acute respiratory vents overnight. Patient admits improving respiratory symptoms. Pulmonology Exam Inpatient Vital signs and Labs for Last 24 Hours: Temp Pulse Resp BP Pulse Ox O2 Del Method O2 Flow Rate 98.2 F 72 19 137/55 L 97 Nasal Cannula 3 12/04/23 07:55 12/04/23 07:55 12/04/23 07:55 12/04/23 07:55 12/04/23 08:00 12/04/23 08:30 12/04/23 08:30 Laboratory Results - last 24 hr 12/03/23 10:59: POC Glucose 205 H 12/03/23 18:17: POC Glucose 262 H 12/03/23 20:29: POC Glucose 279 H 12/04/23 06:08: POC Glucose 148 H 12/04/23 06:50: WBC 21.0 H*, RBC 3.53 L, Hgb 11.2 L, Hct 35.6 L, MCV 100.8 H, MCH 31.7 H, MCHC 31.4 L, RDW 15.8, Plt Count 312, MPV 9.7, Neut % (Auto) 80.0, Lymph % (Auto) 13.1, [place] % (Auto) 5.7, Eos % (Auto) 1.1, Baso % (Auto) 0.1, Neut # (Auto) 16.8 H, Lymph # (Auto) 2.8, [place] # (Auto) 1.2 H, Eos # (Auto) 0.2, Baso # (Auto) 0.0, Total Counted 100, Neutrophils % (Manual) 78 H, Lymphocytes % (Manual) 17, Monocytes % (Manual) 5, Platelet Estimate Normal, Macrocytosis 1+, Sodium 135 L, Potassium 5.5 H, Chloride 101, Carbon Dioxide 35 H, Anion Gap 4.5 L, BUN 24 H D, Creatinine 0.90, Estimated Creat Clear 38, Estimated GFR 63, Est GFR ( Amer) 76, Glucose 122 H, Calcium 9.0 I & O for Labs for Last 24 Hours: Intake & Output 12/01/23 12/02/23 12/03/23 12/04/23 23:59 23:59 23:59 23:59 Intake Total 950 / 950 600 / 600 360 / 360 Output Total 200 / 200 0 / 0 0 / 0 Balance 750 / 750 600 / 600 360 / 360 Weight 224 lb 9.6 oz 227 lb 4.8 oz 224 lb 6 oz Constitutional: Present mild distress Head: Present normocephalic and atraumatic ENT: Present normal exam, normal oropharynx and mucous membranes moist Neck: Present normal inspection and full ROM Respiratory: Present prolonged expiratory phase, respiratory distress, wheezes and able to speak in complete sentences Cardiac: Present S1/S2, Tachycardia and radial pulses present GI: Present soft and distention; Absent tenderness or guarding Rectal (female): Present deferred (female): Present deferred Skin: Present intact; Absent cyanosis or jaundice Neuro: Present alert, awake and oriented x 3 Extremities: Present normal inspection; Absent clubbing or cyanosis Psychiatric: Present normal affect and cooperative Assessment and Plan *Assessment and plan (1) Acute and chronic respiratory failure with hypoxia: Status: Acute Category: Medical Code(s): J96.21 - Acute and chronic respiratory failure with hypoxia (2) Lupus disease of lung: Status: Acute Category: Medical Code(s): M32.13 - Lung involvement in systemic lupus erythematosus (3) Asthma: Status: Chronic Qualifiers: Asthma complication type: uncomplicated Asthma persistence: persistent Asthma severity: moderate Qualified Code(s): J45.40 - Moderate persistent asthma, uncomplicated Category: Medical Code(s): J45.909 - Unspecified asthma, uncomplicated (4) Pneumonia: Status: Acute Qualifiers: Laterality: right Lung location: upper lobe of lung Pneumonia type: due to unspecified organism Qualified Code(s): J18.9 - Pneumonia, unspecified organism Category: Medical Code(s): J18.9 - Pneumonia, unspecified organism (5) Fibrosis of lung: Status: Acute Category: Medical Code(s): J84.10 - Pulmonary fibrosis, unspecified Plan Ms. Cooney is a 68-year-old female no significant smoking history, currently diagnosis of asthma along with lupus-like syndrome and interstitial lung disease following at [facility],, hypertension, dyslipidemia presented to the ER complaining of chest pain and respiratory distress pulmonary was called for further evaluation and management. Neutrophilic leukocytosis upon admission. VBG upon admission did not show any significant evidence of hypoxic/hypercarbic respiratory failure. CT chest upon admission bilateral upper lobe interstitial markings more likely chronic, likely evident on her prior chest x-rays. No dense consolidation noted. Patient was initiated on levofloxacin along with nebulization therapies on methylprednisolone 60 Q8hrs. On initial examination patient appeared to be in moderate respiratory distress but no significant wheezing on auscultation. On baseline 2 to 3 L oxygen supplementation. Will continue to monitor. Interval update: No acute respiratory events overnight. Improving oxygen status. Worsening leukocytosis. Afebrile. Hemodynamically stable. Auscultation worsening wheezing compared to yesterday. [facility] status post OTTO to LAD yesterday. Plan: Continue oxygen supplementation to maintain O2 saturation: 90% able, weaned to 1 L this morning. Continue Trelegy 100 inhaler along with DuoNebs every 6 hours on as-needed basis Continue prednisone 40 mg daily x 14 days Continue levofloxacin 750 mg daily to complete a total of 5-day course. Follow- up with sputum culture # Thank you for involving pulmonary in this patient care. Will continue to follow. Will order the patient as an outpatient basis for the possible CT-ILD/Pulm Fibrosis
--- NOTE | 2023-12-04 09:33 | XR_ITS ---
FINAL REPORT CLINICAL HISTORY: PNM COMPARISON: 12/02/2023 FINDINGS: The heart size is mildly enlarged. Loop recording device is present in the left hemithorax. The mediastinum is normal. There are patchy airspace opacities at the lung bases, probable small focus of pneumonia. There are no pleural effusions. There is no pneumothorax. There is no osseous abnormality. IMPRESSION: Probable small focus of pneumonia in the lung bases. Reviewed, Interpreted and Dictated by Trenton Seo MD Transcribed by Valerie Garsia Authenticated and [facility]
[2023-12-04] MEDS: humaLOG 100 UNITS/ML 3ML VIAL (SSI) SQ ×3 (10:25→20:07)
--- NOTE | 2023-12-04 11:48 | P.PN_ITS ---
Subjective *Date: 12/04/23 *Time: 13:36 Interval history: Continues to complain of pain, predominantly in her shoulders. Will have therapy evaluate her tomorrow. No nausea or vomiting. Stable on 2 L. Poor response to additional regimen for pain on top of her home methadone and gabapentin. No longer having chest pain. Tolerating p.o. intake Medical Exam Vital signs and Labs for Last 24 Hours: Vital Signs Temp Pulse Pulse Resp BP BP Pulse Ox 12/04/23 08:00 70 12/04/23 10:17 12/04/23 10:10 68 12/04/23 10:10 71 12/04/23 10:10 92 L 12/04/23 08:30 12/04/23 08:00 97 12/04/23 07:55 98.2 F 72 19 137/55 L 96 12/04/23 06:46 12/04/23 05:00 12/04/23 04:00 70 12/04/23 04:00 98.3 F 82 18 174/93 H 95 12/04/23 03:00 12/04/23 01:00 12/03/23 23:00 12/03/23 21:00 12/03/23 20:00 12/04/23 00:00 72 12/03/23 22:30 98.1 F 68 16 114/88 97 12/04/23 00:00 98.0 F 63 18 133/70 98 12/03/23 20:00 72 12/03/23 21:30 64 18 148/87 H 95 12/03/23 20:30 64 17 158/87 H 90 L 12/03/23 19:30 64 16 158/81 H 96 12/03/23 18:30 74 15 139/89 96 12/03/23 18:00 74 16 155/60 H 96 12/03/23 18:36 12/03/23 17:30 75 18 174/96 H 96 12/03/23 17:00 75 17 164/92 H 96 12/03/23 16:30 60 17 149/77 H 95 12/03/23 16:15 63 16 146/78 H 95 12/03/23 17:00 12/03/23 16:00 70 12/03/23 15:58 97.8 F 64 16 163/78 H 97 12/03/23 15:45 62 16 149/80 H 98 12/03/23 15:30 70 15 168/89 H 98 12/03/23 15:25 70 17 170/94 H 98 12/03/23 15:20 73 16 174/94 H 88 L 12/03/23 15:15 75 17 129/102 H 82 L 12/03/23 13:00 12/03/23 12:00 70 O2 Del Method O2 Flow Rate 12/04/23 08:00 12/04/23 10:17 Nasal Cannula 3 12/04/23 10:10 12/04/23 10:10 12/04/23 10:10 Room Air 1 12/04/23 08:30 Nasal Cannula 3 12/04/23 08:00 Nasal Cannula 3 12/04/23 07:55 Room Air 12/04/23 06:46 Nasal Cannula 2 12/04/23 05:00 Nasal Cannula 2 12/04/23 04:00 12/04/23 04:00 Room Air 12/04/23 03:00 Nasal Cannula 2 12/04/23 01:00 Nasal Cannula 2 12/03/23 23:00 Nasal Cannula 2 12/03/23 21:00 Nasal Cannula 2 12/03/23 20:00 Nasal Cannula 2 12/04/23 00:00 12/03/23 22:30 Nasal Cannula 2 12/04/23 00:00 Room Air 12/03/23 20:00 12/03/23 21:30 Nasal Cannula 2 12/03/23 20:30 Nasal Cannula 2 12/03/23 19:30 Nasal Cannula 2 12/03/23 18:30 Nasal Cannula 2 12/03/23 18:00 Nasal Cannula 2 12/03/23 18:36 Nasal Cannula 2 12/03/23 17:30 Nasal Cannula 2 12/03/23 17:00 Nasal Cannula 2 12/03/23 16:30 Nasal Cannula 2 12/03/23 16:15 Nasal Cannula 2 12/03/23 17:00 Nasal Cannula 2 12/03/23 16:00 12/03/23 15:58 Nasal Cannula 2 12/03/23 15:45 Nasal Cannula 2 12/03/23 15:30 Room Air 2 12/03/23 15:25 Room Air 2 12/03/23 15:20 12/03/23 15:15 Room Air 12/03/23 13:00 Nasal Cannula 2 12/03/23 12:00 Intake and Output 12/03/23 12/04/23 12/04/23 23:59 07:59 15:59 Intake Total 600 / 600 360 / 360 Output Total 0 / 0 0 / 0 Balance 600 / 600 360 / 360 Intake: Intake, Oral Amount 600 / 600 360 / 360 Output: Output, Urine Amount 0 / 0 0 / 0 Other: Number of Voids 0 Number of Unmeasured Voids 1 Number of Bowel Movements 1 Weight 101.775 kg Patient Weight 12/04/23 23:59 Weight 101.775 kg Laboratory Results - last 24 hr 12/03/23 18:17: POC Glucose 262 H 12/03/23 20:29: POC Glucose 279 H 12/04/23 06:08: POC Glucose 148 H 12/04/23 06:50: WBC 21.0 H*, RBC 3.53 L, Hgb 11.2 L, Hct 35.6 L, MCV 100.8 H, MCH 31.7 H, MCHC 31.4 L, RDW 15.8, Plt Count 312, MPV 9.7, Neut % (Auto) 80.0, Lymph % (Auto) 13.1, [place] % (Auto) 5.7, Eos % (Auto) 1.1, Baso % (Auto) 0.1, Neut # (Auto) 16.8 H, Lymph # (Auto) 2.8, [place] # (Auto) 1.2 H, Eos # (Auto) 0.2, Baso # (Auto) 0.0, Total Counted 100, Neutrophils % (Manual) 78 H, Lymphocytes % (Manual) 17, Monocytes % (Manual) 5, Platelet Estimate Normal, Macrocytosis 1+, Sodium 135 L, Potassium 5.5 H, Chloride 101, Carbon Dioxide 35 H, Anion Gap 4.5 L, BUN 24 H D, Creatinine 0.90, Estimated Creat Clear 38, Estimated GFR 63, Est GFR ( Amer) 76, Glucose 122 H, Calcium 9.0 I & O for Labs for Last 24 Hours: Intake & Output 12/01/23 12/02/23 12/03/23 12/04/23 23:59 23:59 23:59 23:59 Intake Total 950 / 950 600 / 600 360 / 360 Output Total 200 / 200 0 / 0 0 / 0 Balance 750 / 750 600 / 600 360 / 360 Weight 101.877 kg 103.102 kg 101.775 kg Constitutional: Present mild distress, morbidly obese and chronically ill appearing Head: Present atraumatic and normocephalic ENT: Present normal exam Neck: Present normal inspection Respiratory: Present wheezes, crackles and normal respiratory effort; Absent rhonchi Cardiac: Present Reg Rate and Rhythm GI: Present soft and normal bowel sounds; Absent distention or tenderness Extremities: Present normal inspection; Absent full ROM Comment:: Wrists and shoulders tender to palpation Skin: Present intact; Absent erythema Neuro: Present Grossly Intact, alert, awake, oriented x 3 and moves all extremities Assessment and Plan *Assessment and plan (1) Acute exacerbation of chronic obstructive pulmonary disease: Status: Acute Category: Medical Code(s): J44.1 - Chronic obstructive pulmonary disease with (acute) exacerbation (2) Pneumonia: Status: Acute Category: Medical Code(s): J18.9 - Pneumonia, unspecified organism (3) Diabetes mellitus type 2 in obese: Status: Chronic Category: Medical Code(s): E11.69 - Type 2 diabetes mellitus with other specified complication; E66.9 - Obesity, unspecified (4) CAD (coronary artery disease): Status: Acute Category: Medical Code(s): I25.10 - Atherosclerotic heart disease of [place] coronary artery without angina pectoris (5) HTN (hypertension): Status: Acute Category: Medical Code(s): I10 - Essential (primary) hypertension (6) HLD (hyperlipidemia): Status: Acute Category: Medical Code(s): E78.5 - Hyperlipidemia, unspecified (7) HTN (hypertension): Status: Chronic Category: Medical Code(s): I10 - Essential (primary) hypertension (8) Hypothyroid: Status: Acute Category: Medical Code(s): E03.9 - Hypothyroidism, unspecified (9) GERD (gastroesophageal reflux disease): Status: Acute Category: Medical Code(s): K21.9 - Gastro-esophageal reflux disease without esophagitis (10) Obesity: Status: Acute Category: Medical Code(s): E66.9 - Obesity, unspecified Plan 68 year old female presented to the [facility] ED for c/o SOB. PMHX of CAD, COPD, HLD, DM, and GERD. 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 She reports use of nitroglycerin for chest pain earlier tonight and hypoglycemia. In the ED she was given Duonebs and IV magnesium that improved her respiratory distress. Her workup revealed a leukocytosis of 17, negative troponin, and RLL pneumonia on chest xray. She was started on IV levofloxacin. The ED physician consulted the hospitalist team for further medical management. Patient continues to have acute on chronic respiratory distress. Awaiting sputum cultures. Pulmonology and cardiology assisting with care. Continues to require inpatient management. Problems addressed as follows: COPD EXACERBATION PNEUMONIA Interstitial lung disease -Continue IV levofloxacin 750 mg x 5 days. Continue prednisone 40 mg x 14 days. - Discussed case with pulmonology, recommend continuing treatment as above. Awaiting sputum cultures.- -Chest xray reviewed and reveals RLL pneumonia. -Continue DuoNebs every 6 hours scheduled -Goal saturations greater 90%, continue to wean oxygen as tolerated. Currently on 2 L. -White cell count increased to 21,000, repeat CBC, CMP, magnesium ordered for the morning. Chest pain CAD Hypertension Chest pain better. Troponin negative. Discussed case with cardiology, recommend outpatient follow-up with cardiology. Continue amlodipine 2.5 mg daily for blood pressure, aspirin 81 mg daily, Lipitor 40 mg nightly, bisoprolol 2.5 mg daily. Plavix 75 mg daily Continue Wellbutrin 75 mg twice daily and citalopram 40 mg daily for mood Chronic pain: Continue gabapentin 800 mg 4 times a day. Continue methadone 10 mg 4 times a day per home regimen. Poor response to Toradol. Will continue during admission, no indication for NSAIDs at discharge. Continue Tylenol 650 mg every 6 hours as needed for pain DM: Sliding scale insulin with fingersticks ACHS. Detemir 50 units nightly Hypothyroid: continue home levothyroxine 50 mcg daily OBESITY: complicates all aspects of care FULL CODE DIABETIC DIET DVT: HEPARIN SQ
--- NOTE | 2023-12-04 13:59 | HMH.OTEV ---
OT Inpatient Evaluation Rehab OT IP Evaluation Start: 12/04/23 10:50 Freq: ONCE Status: Active Protocol: Document 12/04/23 13:44 [facility] (Rec: 12/04/23 13:59 [facility] [id number]) Rehab OT IP Assessment Subjective History Pt oriented x 3 on arrival. Pt agreeable to engage in therapy evaluation. Pt admitted on 12/02/23 due to COPD exacerbation. History and Physical 68 year old female presented to the [facility] ED for c/o SOB. PMHX of CAD, COPD, HLD, DM, and GERD. 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 She reports use of nitroglycerin for chest pain earlier tonight and hypoglycemia. In the ED she was given Dounebs and IV magnesium that improved her respiratory distress. Her workup revealed a leukocytosis of 17, negative troponin, and RLL pneumonia on chest xray. She was started on IV levofloxacin. The ED physician consulted the hospitalist team for further medical management. I admitted the pt to the medical floor. She arrives to the floor in no acute distress. Subjective I am ready to go home. Pt reports prior to being in the hospital, pt lived at home alone. Pt claims she is normally independent with all ADLs such as feeding, bathing, and dressing. She does require assistance with IADLS, but her granddaughters assist her with all of these needs. She no longer drives. She wears oxygen at all times. She does have a rolling walker and cane she uses out in the community. Objective Patient Orientation Person,Place,Birthday Right Upper Extremity Gross ROM WFL Left Upper Extremity Gross ROM WFL Bed Mobility bed mobility-scooting,bed mobility - supine/sit Assist Level Supervision/Stand by Transfer Training Sit/Stand Transfer Assist Level Supervision/Stand by Lower Body Dressing Ability Standby Assistance Rehab OT IP prob,goals,plan Problems Date of Evaluation: 12/04/23 Rehab Potential Rehab Potential Innapropriate for Skilled Therapy Discharge Plan OT Discharge Plan At this time, pt appears to be at her baseline with ADLs and functional transfers. Pt can return home once she is medically stable per physician . Eval Complexity Eval Charge Codes 12964 - Low Complexity PHYSICIAN CERTIFICATION: I certify the specified therapy services for Maricel Cooney are required, authorized, and reviewed every 30 days.
--- NOTE | 2023-12-04 14:09 | HMH.PTEV ---
Physical Therapy Evaluation Rehab PT IP Evaluation Start: 12/04/23 10:50 Freq: ONCE Status: Active Protocol: Document 12/04/23 14:01 [facility] (Rec: 12/04/23 14:09 [facility] [id number]) Subjective/History History History Per H&P: 68 year old female presented to the [facility] ED for c/o SOB. PMHX of CAD, COPD, HLD, DM, and GERD. 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 She reports use of nitroglycerin for chest pain earlier tonight and hypoglycemia. In the ED she was given Dounebs and IV magnesium that improved her respiratory distress. Her workup revealed a leukocytosis of 17, negative troponin, and RLL pneumonia on chest xray. She was started on IV levofloxacin. The ED physician consulted the hospitalist team for further medical management. I admitted the pt to the medical floor. She arrives to the floor in no acute distress. Subjective Subjective PLOF per pt report: Home alone in single story home with no LISETH. Requires some assistance with IADLS, but her granddaughters assist her with all of these needs. Not driving. Wears oxygen AAT. RW and Cane for IND community AMB . New diagnosis of cancer in past 12 No months? Rehab PT IP Eval Objective Appearance Patient Behavior Appropriate Patient Orientation Person,Place,Birthday Difficulty following instructions none Speech Pattern Clear Ambulation Patient Able to Ambulate Yes Ambulation Observation IP General Gait Pattern Observation Wide Based Gait Ambulation Distance (feet) 20 Ambulation Assistive Device None Ambulation Ability Supervision/Stand by Balance Ability to Arise Able, w/o using arms Sitting Balance Steady, safe Standing Balance Steady, wide stance Transfers Bed Transfer Ability Independent Sit to Stand Bed Transfer Ability Supervision/Stand by Rehab PT IP prob,goals,plan Problems Date of Evaluation: 12/04/23 Rehab Potential Rehab Potential Good Discharge Plan PT Discharge Plan Pt safe to d/c home when deemed medically necessary d/t current level of mobility, home set-up, and family support. Pt not appropriate for skilled acute care PT d/t current level of functioning. Eval Complexity Eval Charge Codes 80732 - High Complexity PHYSICIAN CERTIFICATION: I certify the specified therapy services for Maricel Cooney are required, authorized, and reviewed every 30 days.
--- NOTE | 2023-12-04 14:10 | HMH.PTEV ---
Physical Therapy Evaluation Rehab PT IP Evaluation Start: 12/04/23 10:50 Freq: ONCE Status: Active Protocol: Document 12/04/23 14:01 [facility] (Rec: 12/04/23 14:09 [facility] [id number]) Subjective/History History History Per H&P: 68 year old female presented to the [facility] ED for c/o SOB. PMHX of CAD, COPD, HLD, DM, and GERD. 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 She reports use of nitroglycerin for chest pain earlier tonight and hypoglycemia. In the ED she was given Dounebs and IV magnesium that improved her respiratory distress. Her workup revealed a leukocytosis of 17, negative troponin, and RLL pneumonia on chest xray. She was started on IV levofloxacin. The ED physician consulted the hospitalist team for further medical management. I admitted the pt to the medical floor. She arrives to the floor in no acute distress. Subjective Subjective PLOF per pt report: Home alone in single story home with no LISETH. Requires some assistance with IADLS, but her granddaughters assist her with all of these needs. Not driving. Wears oxygen AAT. RW and Cane for IND community AMB . New diagnosis of cancer in past 12 No months? Rehab PT IP Eval Objective Appearance Patient Behavior Appropriate Patient Orientation Person,Place,Birthday Difficulty following instructions none Speech Pattern Clear Ambulation Patient Able to Ambulate Yes Ambulation Observation IP General Gait Pattern Observation Wide Based Gait Ambulation Distance (feet) 20 Ambulation Assistive Device None Ambulation Ability Supervision/Stand by Balance Ability to Arise Able, w/o using arms Sitting Balance Steady, safe Standing Balance Steady, wide stance Transfers Bed Transfer Ability Independent Sit to Stand Bed Transfer Ability Supervision/Stand by Rehab PT IP prob,goals,plan Problems Date of Evaluation: 12/04/23 Rehab Potential Rehab Potential Good Discharge Plan PT Discharge Plan Pt safe to d/c home when deemed medically necessary d/t current level of mobility, home set-up, and family support. Pt not appropriate for skilled acute care PT d/t current level of functioning. Eval Complexity Eval Charge Codes 17471 - High Complexity PHYSICIAN CERTIFICATION: I certify the specified therapy services for Maricel Cooney are required, authorized, and reviewed every 30 days.
--- NOTE | 2023-12-04 14:19 | EXP.CARD.PN ---
Subjective Subjective Date: 12/04/23 Time: 10:00 Principal diagnosis: Pneumonia, chest pain Interval history: Left heart cath repeated yesterday, she had 70% LAD stenosis which was stented successfully. This morning she reports complete resolution of her chest tightness sensation. She is still short of breath and wheezing with her pneumonia and currently using a nebulizer. Exam Data for Last 24 hours Vital signs and Labs for Last 24 Hours: Temp Pulse Resp BP Pulse Ox O2 Del Method O2 Flow Rate 98.2 F 78 19 137/86 96 Nasal Cannula 2 12/04/23 07:55 12/04/23 11:51 12/04/23 11:51 12/04/23 11:51 12/04/23 11:51 12/04/23 12:26 12/04/23 12:26 Laboratory Results - last 24 hr 12/03/23 18:17: POC Glucose 262 H 12/03/23 20:29: POC Glucose 279 H 12/04/23 06:08: POC Glucose 148 H 12/04/23 06:50: WBC 21.0 H*, RBC 3.53 L, Hgb 11.2 L, Hct 35.6 L, MCV 100.8 H, MCH 31.7 H, MCHC 31.4 L, RDW 15.8, Plt Count 312, MPV 9.7, Neut % (Auto) 80.0, Lymph % (Auto) 13.1, [place] % (Auto) 5.7, Eos % (Auto) 1.1, Baso % (Auto) 0.1, Neut # (Auto) 16.8 H, Lymph # (Auto) 2.8, [place] # (Auto) 1.2 H, Eos # (Auto) 0.2, Baso # (Auto) 0.0, Total Counted 100, Neutrophils % (Manual) 78 H, Lymphocytes % (Manual) 17, Monocytes % (Manual) 5, Platelet Estimate Normal, Macrocytosis 1+, Sodium 135 L, Potassium 5.5 H, Chloride 101, Carbon Dioxide 35 H, Anion Gap 4.5 L, BUN 24 H D, Creatinine 0.90, Estimated Creat Clear 38, Estimated GFR 63, Est GFR ( Amer) 76, Glucose 122 H, Calcium 9.0 I & O for Last 24 hours: Intake & Output 12/01/23 12/02/23 12/03/23 12/04/23 23:59 23:59 23:59 23:59 Intake Total 950 / 950 600 / 600 360 / 360 Output Total 200 / 200 0 / 0 0 / 0 Balance 750 / 750 600 / 600 360 / 360 Weight 224 lb 9.6 oz 227 lb 4.8 oz 224 lb 6 oz Constitutional Constitutional: no acute distress and cooperative *Routine HEENT Exam Eye: Present PERRL *Routine Respiratory Exam Respiratory: Present decreased breath sounds, CTA bilaterally and wheezes; Absent accessory muscle use or crackles *Routine Cardiovascular Exam Cardiovascular: Present RRR, Normal S1 and Normal S2; Absent murmur, gallop or rubs Comments: Right radial cath site normal on inspection and palpation *Routine Abdominal Exam Abdominal: Present soft; Absent tenderness *Routine Extremities Exam Extremities: Present pulses intact; Absent cyanosis or edema *Routine Skin Exam Skin: Present intact; Absent erythema or wounds *Routine Neurological Exam Neurological: Present alert and oriented X3 Routine Psychiatric Exam Psychiatric: Present cooperative Progress Note: A&P Assessment and plan (1) Acute exacerbation of chronic obstructive pulmonary disease: Status: Acute (2) Pneumonia: Status: Acute (3) Diabetes mellitus type 2 in obese: Status: Chronic (4) CAD (coronary artery disease): Status: Acute (5) HTN (hypertension): Status: Acute (6) HLD (hyperlipidemia): Status: Acute (7) Hypothyroid: Status: Acute (8) GERD (gastroesophageal reflux disease): Status: Acute (9) Obesity: Status: Acute Assessment and Plan Assessment and Plan for All Diagnoses:: CAD, NV with Class 4 Unstable Angina - 3 weeks worsening angina chest pain with known hx of MV-CAD despite GDMT - cont DAPT, BB, Statin - [facility] 12/03: Successful stent to mid LAD, normal EF COPD on 2L with right lower lobe pneumonia -On nebs and antibiotics History of DVT? -Details unclear at this time, she has lupus noted in her chart which could increase her risk for blood clotting. Will discuss further as outpatient Lupus Hx of GI Bleeding Hx of anemia SVT MRSA Hypothyroidism Anemia - noted chronic conditions, cont to monitor 12/04: Patient is CV stable status post stenting. She needs follow-up in our office in 2 weeks
[2023-12-04 15:56] LABS: POC Glucose,Bedside 274 (70-110)
--- NOTE | 2023-12-04 16:22 | PC.NURSE ---
Aox 4, up independent, 02-2L nc 97%, FSBG ACHS, 20g r AC SL, on plavix, cardiac diet, stent placemnet yesterday, right wrist dressing c/d/i.
[2023-12-04 20:00] LABS: POC Glucose,Bedside 278 (70-110)
[2023-12-04] MEDS: INSULIN DETEMIR 100 UNIT/ML 3ML FLEXPEN 50 UNIT SQ (20:07)
[2023-12-04] MEDS: ATORVASTATIN 40MG TABLET 40 MG PO (20:09)
[2023-12-05] VITALS: BP 148/85; PULSE 70; PULSE 75; RESP 22; TEMP 36.6; O2SAT 94
[2023-12-05] MEDS: KETOROLAC 30MG/ML VIAL 15 MG IV ×2 (00:54→08:59)
[2023-12-05] MEDS: METHADONE 10MG TABLET 10 MG PO ×2 (00:55→06:00)
[2023-12-05] MEDS: ACETAMINOPHEN 325MG TAB 650 MG PO (03:27)
[2023-12-05 04:00] VITALS: BP 157/76; PULSE 66; PULSE 72; RESP 20; TEMP 36.6; O2SAT 94; BMI 46.5
[2023-12-05] MEDS: IPRATROPIUM/ALBUTEROL 3 ML NEB IH (05:02)
[2023-12-05 05:03] VITALS: PULSE 70; PULSE 74; O2SAT 95
[2023-12-05] MEDS: FLUTICASONE/UMECLIDIN/VILANTER 100/62.5/25MCG INHALER 1 PUFF IH (05:17)
[2023-12-05] MEDS: LEVOTHYROXINE 50MCG (0.05MG) TAB 50 MCG PO (06:00)
[2023-12-05] MEDS: LEVOFLOXACIN/D5W 750 MG/150 ML 750 MG/150 ML PIGGYBACK 100 MG IV (06:01)
[2023-12-05 06:11] LABS: POC Glucose,Bedside 126 (70-110)
--- NOTE | 2023-12-05 06:29 | PC.NURSE ---
PT HAS VOICED MULTIPLE C/O CHRONIC ARTHRITIS PAIN IN SHOULDERS AND HEADACHE. SCHEDULED AND PRN PAIN MEDICATION ADMINISTERED, PT STATES RELIEF. PT HAS SLEPT ON AND OFF T/O NIGHT DUE TO PAIN. PT CONTINUES TO NECESSITATE 2 L NC, O2 SAT >90%. CALL LIGHT WITHIN REACH.
[2023-12-05 06:34] LABS: Basophils # 0.1 K/mm3 (0-0.2); Basophils % 0.4 % (0.1-2.0); Eosinophils # 0.1 K/mm3 (0.0-0.4); Eosinophils % 0.7 % (0.1-12.0); Hematocrit 36.1 % (37.0-47.0); Hemoglobin 11.2 g/dL (12.2-16.2); Lymphocytes # 7.7 K/mm3 (0.7-4.5); Lymphocytes % 40.9 % (10-50); Mean Corpuscular HGB Conc 31.1 g/dL (31.8-35.4); Mean Corpuscular Hemoglobin 31.7 pg (27.0-31.2); Mean Corpuscular Volume 101.9 fl (81-99); Mean Platelet Volume 9.8 fl (7.4-10.4); Monocytes # 1.6 K/mm3 (0.1-1.0); Monocytes % 8.4 % (1.7-9.3); Neutrophils # 9.4 K/mm3 (1.8-7.8); Neutrophils % 49.7 % (37.0-80.0); Platelet Count 289 K/mm3 (142-424); Red Blood Count 3.54 M/mm3 (4.20-5.40); White Blood Count 18.9 K/mm3 (4.8-10.8)
[2023-12-05 06:38] LABS: MANUAL DIFFERENTIAL MANUAL DIFFERENTIAL (MANUAL DIFF)
[2023-12-05 06:45] LABS: Chloride 100 mmol/L (98-107); Potassium 4.4 mmoL/L (3.5-5.1); Sodium 133 mmol/L (136-145)
[2023-12-05 06:47] LABS: Blood Urea Nitrogen 23 mg/dl (7-17); Creatinine Clearance Estimated 38 mL/min (50-200); Estimated Glomerular Filt Rate 63 ml/min (>60); GFR (African American) 76 ML/MIN (>60)
[2023-12-05 06:48] LABS: Alanine Aminotransferase 13 U/L (12-78); Albumin Level 3.7 g/dl (3.5-5.0); Albumin/Globulin Ratio 1.2 (1.1-1.8); Alkaline Phosphatase 74 U/L (38-126); Anion Gap 1.4 mEq/L (5-15); Aspartate Amino Transferase 28 U/L (14-36); Bilirubin,Total 0.4 mg/dl (0.2-1.3); Calcium 8.9 mg/dl (8.4-10.2); Carbon Dioxide 36 mmol/L (22.0-30.0); Globulin 3.2 g/dL (1.3-3.2); Glucose 113 mg/dl (74-100); Magnesium 2.1 mg/dl (1.6-2.3); Total Protein,Serum 6.9 g/dl (6.3-8.2)
--- NOTE | 2023-12-05 07:21 | P.DS_ITS ---
General Admission date:: 12/02/23 Discharge date: 12/05/23 HPI HPI HPI: 68 year old female presented to the [facility] ED for c/o SOB. PMHX of CAD, COPD, HLD, DM, and GERD. She arrived by EMS and recieved solu-medrol SHOEBLACK. She reports use of nitroglycerin for chest pain earlier tonight and hypoglycemia. In the ED she was given Dounebs and IV magnesium that improved her respiratory distress. Her workup revealed a leukocytosis of 17, negative troponin, and RLL pneumonia on chest xray. She was started on IV levofloxacin. The ED physician consulted the hospitalist team for further medical management. I admitted the pt to the medical floor. She arrives to the floor in no acute distress. Hospital Course Hospital Course Hospital Course: 68 year old female presented to the [facility] ED for c/o SOB. PMHX of CAD, COPD, HLD, DM, and GERD. She arrived by EMS and recieved solu-medrol SHOEBLACK. She reports use of nitroglycerin for chest pain earlier tonight and hypoglycemia. In the ED she was given Duonebs and IV magnesium that improved her respiratory distress. Her workup revealed a leukocytosis of 17, negative troponin, and RLL pneumonia on chest xray. She was started on IV levofloxacin. The ED physician consulted the hospitalist team for further medical management. Patient showed gradual improvement in symptoms during admission. Able to wean to home oxygen of 2 to 3 L. Pulmonology and cardiology assisted with care during admission. Given clinical stability, will transition to oral antibiotics and steroids to complete course of treatment. Stable to discharge home with outpatient follow-up scheduled. Problems addressed as follows: COPD EXACERBATION PNEUMONIA Interstitial lung disease -Patient initiated on broad-spectrum antibiotics. Pulmonology consulted. Sputum cultures obtained, still pending at discharge. Chest x-ray revealed right lower lobe pneumonia. Was treated with DuoNebs every 6 hours scheduled. Maintain on supplemental oxygen with sats greater 90%. Tolerating home oxygen level of 2 L by day of discharge. Pulmonology recommends continuing 5 days total of levofloxacin and 14 days total of prednisone. Patient has completed levofloxacin course due to renal dosing. Will continue 10 more days of steroids at discharge. White cell count showing some improvement at 18.9. Plan for follow-up with pulmonology in the coming weeks for further management. Continue Trelegy 100 inhaler at discharge. Chest pain CAD Hypertension Chest pain improved during admission. Cardiology was consulted. Recommend outpatient follow-up for further management and workup. Continue amlodipine 2.5 mg daily for blood pressure, aspirin 81 mg daily, Lipitor 40 mg nightly, bisoprolol 2.5 mg daily. Plavix 75 mg daily Continue Wellbutrin 75 mg twice daily and citalopram 40 mg daily for mood Chronic pain: Continue gabapentin 800 mg 4 times a day. Continue methadone 10 mg 4 times a day per home regimen. Poor response to Toradol. Will continue during admission, no indication for NSAIDs at discharge. Continue Tylenol 650 mg every 6 hours as needed for pain DM: Sliding scale insulin with fingersticks ACHS. Detemir 50 units nightly. Resume home regimen at discharge Hypothyroid: continue home levothyroxine 50 mcg daily Spent 30 minutes in discharge counseling, documentation, chart review, and direct care with patient. Exam Data for Last 24 hours Vital signs and Labs for Last 24 Hours: Temp Pulse Resp BP Pulse Ox O2 Del Method O2 Flow Rate 97.8 F 70 20 157/76 H 95 Nasal Cannula 2 12/05/23 04:00 12/05/23 05:03 12/05/23 04:00 12/05/23 04:00 12/05/23 05:03 12/05/23 06:35 12/05/23 06:35 Laboratory Results - last 24 hr 12/04/23 06:50: Total Counted 100, Neutrophils % (Manual) 78 H, Lymphocytes % (Manual) 17, Monocytes % (Manual) 5, Platelet Estimate Normal, Macrocytosis 1+, Sodium 135 L, Potassium 5.5 H, Chloride 101, Carbon Dioxide 35 H, Anion Gap 4.5 L, BUN 24 H D, Creatinine 0.90, Estimated Creat Clear 38, Estimated GFR 63, Est GFR ( Amer) 76, Glucose 122 H, Calcium 9.0 12/04/23 15:49: POC Glucose 274 H 12/04/23 19:52: POC Glucose 278 H 12/05/23 05:47: WBC 18.9 H, RBC 3.54 L, Hgb 11.2 L, Hct 36.1 L, MCV 101.9 H, MCH 31.7 H, MCHC 31.1 L, RDW 16.0, Plt Count 289, MPV 9.8, Neut % (Auto) 49.7, Lymph % (Auto) 40.9, [place] % (Auto) 8.4, Eos % (Auto) 0.7, Baso % (Auto) 0.4, Neut # (Auto) 9.4 H, Lymph # (Auto) 7.7 H, [place] # (Auto) 1.6 H, Eos # (Auto) 0.1, Baso # (Auto) 0.1, Sodium 133 L, Potassium 4.4, Chloride 100, Carbon Dioxide 36 H, Anion Gap 1.4 L, BUN 23 H, Creatinine 0.90, Estimated Creat Clear 38, Estimated GFR 63, Est GFR ( Amer) 76, Glucose 113 H, Calcium 8.9, Magnesium 2.1, Total Bilirubin 0.4, AST 28, ALT 13, Alkaline Phosphatase 74, Total Protein 6.9, Albumin 3.7, Globulin 3.2, Albumin/Globulin Ratio 1.2 12/05/23 05:59: POC Glucose 126 H I & O for Last 24 hours: Intake & Output 12/02/23 12/03/23 12/04/23 12/05/23 23:59 23:59 23:59 23:59 Intake Total 950 / 950 600 / 600 1380 / 1380 Output Total 200 / 200 0 / 0 0 / 0 Balance 750 / 750 600 / 600 1380 / 1380 Weight 101.877 kg 103.102 kg 101.7 kg 104.734 kg Microbiology Reports for the Last 24 Hours: Microbiology 12/02/23 22:11 Sputum - Expectorated Sputum Gram Stain - Final 12/02/23 04:50 Blood Blood Culture - Preliminary 12/02/23 04:54 Blood Blood Culture - Preliminary Constitutional Constitutional: no acute distress, morbidly obese, chronically ill appearing and cooperative *Routine HEENT Exam Head: Present normocephalic Eye: Present EOMI and PERRL ENT: Present mucous membranes moist Comments: cushingoid *Routine Neck Exam Neck: Present supple; Absent lymphadenopathy *Routine Respiratory Exam Respiratory: Present prolonged expiratory phase, wheezes, diminished air movement and normal respiratory effort; Absent crackles *Routine Cardiovascular Exam Cardiovascular: Present RRR *Routine Abdominal Exam Abdominal: Present soft and normoactive bowel sounds; Absent tenderness *Routine Extremities Exam Extremities: Absent cyanosis, clubbing or edema *Routine Skin Exam Skin: Present warm; Absent rash *Routine Neurological Exam Neurological: Present alert, oriented X3 and moving all extremities; Absent altered mental status Results Data Completed and Pending Labs on day of discharge: Labs from last 24 hours 12/05/23 12/05/23 12/04/23 05:59 05:47 19:52 WBC 18.9 H RBC 3.54 L Hgb 11.2 L Hct 36.1 L MCV 101.9 H MCH 31.7 H MCHC 31.1 L RDW 16.0 Plt Count 289 MPV 9.8 Neut % (Auto) 49.7 Lymph % (Auto) 40.9 [place] % (Auto) 8.4 Eos % (Auto) 0.7 Baso % (Auto) 0.4 Neut # (Auto) 9.4 H Lymph # (Auto) 7.7 H [place] # (Auto) 1.6 H Eos # (Auto) 0.1 Baso # (Auto) 0.1 Total Counted Neutrophils % (Manual) Lymphocytes % (Manual) Monocytes % (Manual) Platelet Estimate Macrocytosis Sodium 133 L Potassium 4.4 Chloride 100 Carbon Dioxide 36 H Anion Gap 1.4 L BUN 23 H Creatinine 0.90 Estimated Creat Clear 38 Estimated GFR 63 Est GFR ( Amer) 76 Glucose 113 H POC Glucose 126 H 278 H Calcium 8.9 Magnesium 2.1 Total Bilirubin 0.4 AST 28 ALT 13 Alkaline Phosphatase 74 Total Protein 6.9 Albumin 3.7 Globulin 3.2 Albumin/Globulin Ratio 1.2 12/04/23 12/04/23 15:49 06:50 WBC RBC Hgb Hct MCV MCH MCHC RDW Plt Count MPV Neut % (Auto) Lymph % (Auto) [place] % (Auto) Eos % (Auto) Baso % (Auto) Neut # (Auto) Lymph # (Auto) [place] # (Auto) Eos # (Auto) Baso # (Auto) Total Counted 100 Neutrophils % (Manual) 78 H Lymphocytes % (Manual) 17 Monocytes % (Manual) 5 Platelet Estimate Normal Macrocytosis 1+ Sodium 135 L Potassium 5.5 H Chloride 101 Carbon Dioxide 35 H Anion Gap 4.5 L BUN 24 H D Creatinine 0.90 Estimated Creat Clear 38 Estimated GFR 63 Est GFR ( Amer) 76 Glucose 122 H POC Glucose 274 H Calcium 9.0 Magnesium Total Bilirubin AST ALT Alkaline Phosphatase Total Protein Albumin Globulin Albumin/Globulin Ratio Preliminary micro results at discharge 12/02/23 04:50 Blood Culture - Preliminary Blood 12/02/23 04:54 Blood Culture - Preliminary Blood DS: Diagnosis Discharge Diagnosis (1) Acute exacerbation of chronic obstructive pulmonary disease: Status: Acute Code(s): J44.1 - Chronic obstructive pulmonary disease with (acute) exacerbation (2) Pneumonia: Status: Acute Code(s): J18.9 - Pneumonia, unspecified organism (3) Diabetes mellitus type 2 in obese: Status: Chronic Code(s): E11.69 - Type 2 diabetes mellitus with other specified complication; E66.9 - Obesity, unspecified (4) CAD (coronary artery disease): Status: Acute Code(s): I25.10 - Atherosclerotic heart disease of [place] coronary artery without angina pectoris (5) HTN (hypertension): Status: Acute Code(s): I10 - Essential (primary) hypertension (6) HLD (hyperlipidemia): Status: Acute Code(s): E78.5 - Hyperlipidemia, unspecified (7) Hypothyroid: Status: Acute Code(s): E03.9 - Hypothyroidism, unspecified (8) GERD (gastroesophageal reflux disease): Status: Acute Code(s): K21.9 - Gastro-esophageal reflux disease without esophagitis (9) Obesity: Status: Acute Code(s): E66.9 - Obesity, unspecified Meds Home Medications and Allergies Home Medications Medication Instructions Recorded Confirmed Type aspirin 81 mg chewable tablet 81 mg PO DAILY HEART HEALTH 11/27/19 12/02/23 History gabapentin 800 mg tablet 800 mg PO QID FIBROMYALGIA PAIN 11/27/19 12/02/23 History levothyroxine 50 mcg tablet 50 mcg PO DAILY HYPOTHYROIDISM 11/27/19 12/02/23 History methadone 10 mg tablet 10 mg PO 0600,1200,1800,2359 11/27/19 12/02/23 History FIBROMYALGIA PAIN ondansetron HCl 8 mg tablet 8 mg PO TIDP PRN Nausea 11/27/19 12/02/23 History fluoxetine 20 mg capsule 20 mg PO DAILY Depression 11/28/19 12/02/23 History pantoprazole 40 mg tablet,delayed 40 mg PO BID ACID REFLUX 11/28/19 12/02/23 History release amlodipine 2.5 mg tablet 2.5 mg PO DAILY Hypertension 07/07/22 12/02/23 History atorvastatin 40 mg tablet 40 mg PO HS High cholesterol 07/07/22 12/02/23 History bisoprolol fumarate 5 mg tablet 2.5 mg PO DAILY Hypertension 07/07/22 12/02/23 History 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 07/07/22 12/02/23 History empagliflozin 25 mg tablet 25 mg PO DAILY Diabetes 07/07/22 12/02/23 History (Jardiance) albuterol sulfate 90 mcg/actuation 2 puff inhalation Q4HP PRN SOA 12/02/23 12/02/23 History aerosol inhaler (Ventolin HFA) bupropion HCl 150 mg 24 hr tablet, 150 mg PO DAILY 12/02/23 12/02/23 History extended release ergocalciferol (vitamin D2) 1,250 50,000 unit PO WEEKLY Supplement 12/02/23 12/02/23 History mcg (50,000 unit) capsule (Vitamin D2) escitalopram oxalate 20 mg tablet 20 mg PO DAILY Depression 12/02/23 12/02/23 History fluticasone propionate 50 1 spray intranasal BID ALLERGIES 12/02/23 12/02/23 History mcg/actuation nasal spray,suspension guaifenesin 600 mg tablet, 600 mg PO Q12H COUGH/CONGESTION 12/02/23 12/02/23 History extended release 12 hr insulin aspart U-100 100 unit/mL 10 sliding scale dose SQ TID 12/02/23 12/02/23 History (3 mL) subcutaneous pen (Novolog Diabetes FlexPen U-100 Insulin aspart) insulin detemir U-100 100 unit/mL 50 unit SQ HS Diabetes 12/02/23 12/02/23 History (3 mL) subcutaneous pen (Levemir FlexPen) magnesium oxide 400 mg PO DAILY Supplement 12/02/23 12/02/23 History nitroglycerin 0.4 mg sublingual 0.4 mg sublingual Q5MINP PRN Chest 12/02/23 12/02/23 History tablet Pain fluticasone fur. 100 mcg-umeclid 1 inh inhalation DAILY 30 days #1 12/05/23 Rx 62.5 mcg-vilant 25 mcg ea inhalat.powder (Trelegy Ellipta) prednisone 20 mg tablet 40 mg PO DAILY 10 days #20 tabs 12/05/23 Rx New Prescriptions to Start Prescriptions: [id number] [Trelegy Ellipta] Sim Gong prednisone Sim Gong Allergies Allergy/AdvReac Type Severity Reaction Status Date / Time Cephalosporins Allergy Unknown Verified 12/02/23 04:14 allergy reaction Iodinated Contrast Media Allergy Unknown Verified 12/02/23 04:14 allergy reaction meperidine Allergy Unknown Verified 12/02/23 04:14 allergy reaction NSAIDS (Non-Steroidal Allergy Unknown Verified 12/02/23 04:14 Anti-Inflamma allergy reaction pregabalin Allergy Verified 12/02/23 06:23 Sulfa (Sulfonamide Allergy Unknown Verified 12/02/23 04:14 Antibiotics) allergy reaction sumatriptan Allergy Verified 12/02/23 06:23 tizanidine Allergy Verified 12/02/23 06:23 enoxaparin [From Lovenox] AdvReac Unknown Verified 12/02/23 06:23 allergy reaction nalbuphine AdvReac Unknown Verified 12/02/23 04:14 allergy reaction promethazine AdvReac Unknown Verified 12/02/23 04:14 allergy reaction Discharge Plan Disposition Patient Disposition: Home, Self-Care Condition: Fair Discharge Order Discharge Orders: Discharge Order (Routine); Ordered 12/05/23 Ordered By: Sim Gong Follow up Plan Follow up with: Robina Downey [Primary Care Provider] - 12/12/23 11:00 am Kyle Wharton MD [Physician] - 12/26/23 1:00 pm Prescriptions/Medication Reconciliation: New Trelegy Ellipta 100-62.5-25 mcg Blister With Device 1 inh inhalation DAILY 30 Days Qty: 1 0RF prednisone 20 mg Tablet 40 mg PO DAILY 10 Days Qty: 20 0RF Continued ondansetron HCl 8 MG tablet 8 mg PO TIDP PRN (Reason: Nausea) methadone 10 MG tablet 10 mg PO 0600,1200,1800,2359 gabapentin 800 MG tablet 800 mg PO QID Patient Comments: TAKE 1 TABLET 4 TIMES EACH DAY levothyroxine 50 MCG tablet 50 mcg PO DAILY aspirin 81 MG tablet,chewable 81 mg PO DAILY pantoprazole 40 MG tablet,delayed release (DR/EC) 40 mg PO BID fluoxetine 20 MG capsule 20 mg PO DAILY atorvastatin 40 mg tablet 40 mg PO HS clopidogrel 75 mg tablet 75 mg PO DAILY bisoprolol fumarate 5 mg tablet 2.5 mg PO DAILY Patient Comments: take one-half tablet (2.5 mg) by oral route once daily Jardiance 25 mg tablet 25 mg PO DAILY Patient Comments: take 1 tablet (25 mg) by oral route once daily in the morning amlodipine 2.5 mg tablet 2.5 mg PO DAILY Patient Comments: take 1 tablet (2.5 mg) by oral route once daily escitalopram oxalate 20 mg tablet 20 mg PO DAILY Patient Comments: TAKE ONE TABLET BY MOUTH DAILY insulin aspart U-100 [Novolog FlexPen U-100 Insulin] 100 unit/mL (3 mL) insulin pen 10 sliding scale dose SQ TID Patient Comments: INJECT 10 UNITS UNDER THE SKIN THREE TIMES DAILY WITH MEALS bupropion HCl 150 mg tablet extended release 24 hr 150 mg PO DAILY Patient Comments: TAKE ONE TABLET BY MOUTH EVERY DAY ergocalciferol (vitamin D2) [Vitamin D2] 1,250 mcg (50,000 unit) capsule 50,000 unit PO WEEKLY Patient Comments: Take 1 capsule every week by oral route. fluticasone propionate 50 mcg/actuation [place],Suspension 1 spray INTRANASAL BID Rx Instructions: administer into each nostril guaifenesin 600 mg Tablet Extended Release 12hr 600 mg PO Q12H magnesium oxide 400 mg magnesium Tablet 400 mg PO DAILY Levemir FlexPen 100 unit/mL (3 mL) Insulin Pen 50 unit SQ HS nitroglycerin 0.4 mg tablet, sublingual 0.4 mg sublingual Q5MINP PRN (Reason: Chest Pain) Patient Comments: DISSOLVE 1 TABLET UNDER THE TONGUE EVERY 5 MINUTES NEEDED FOR CHEST PAIN. DO NOT EXCEED A TOTAL OF 3 DOSES IN 15 MINUTES. albuterol sulfate [Ventolin HFA] 90 mcg/actuation HFA aerosol inhaler 2 puff INHALATION Q4HP PRN (Reason: SOA) Patient Comments: Inhale 2 puffs every 4 hours by inhalation route. Problem Reconciliation Problems Reviewed?: Yes Patient Discharge Instructions ACTIVITY: Continue current activity DIET: continue same diet Patient Instructions: Chronic Obstructive Pulmonary Disease, Heart-Healthy Diet, Carbohydrate-Counting Diet, DI for Pneumonia -- Adult, DI for Cardiac Catheterization, Surgical Site Infection, DI for Sepsis -- Adult Providers Primary Care Provider: Robina Downey Admit Provider: Yoni Santiago Attending Provider: Geoff Church
[2023-12-05 07:46] LABS: Lymphocytes % 45 % (10-50); Monocytes % 16 % (2-9); Neutrophils % 38 % (42-76); Total Cells Counted 100
[2023-12-05 08:00] VITALS: BP 133/88; PULSE 85; PULSE 90; RESP 18; TEMP 36.6; O2SAT 95
[2023-12-05 08:14] LABS: Anisocytosis 1+; Macrocytosis 1+; Platelet Estimate Normal
[2023-12-05 08:15] LABS: Target Cells 1+
[2023-12-05] MEDS: predniSONE 20MG TAB 40 MG PO (08:58)
[2023-12-05] MEDS: BISOPROLOL 5MG TABLET 2.5 MG PO (08:58)
[2023-12-05] MEDS: PANTOPRAZOLE 40MG TABLET 40 MG PO (09:00)
[2023-12-05] MEDS: GABAPENTIN 800MG TABLET 800 MG PO (09:00)
[2023-12-05] MEDS: FLUOXETINE 20MG CAPSULE 20 MG PO (09:00)
[2023-12-05] MEDS: CITALOPRAM 40MG TABLET 40 MG PO (09:00)
[2023-12-05] MEDS: AMLODIPINE 2.5MG TABLET 2.5 MG PO (09:00)
[2023-12-05] MEDS: buPROPion HCL 75 MG TABLET PO (09:01)
[2023-12-05] MEDS: HEPARIN SODIUM 5,000 UNIT/ML VIAL 5000 UNIT SQ (09:01)
[2023-12-05] MEDS: CLOPIDOGREL 75MG TAB 75 MG PO (09:01)
[2023-12-05 09:24] LABS: Poikilocytosis 1+
[2023-12-05] MEDS: FLUTICASONE PROP 50MCG NASAL SPRAY 16GM 1 SPRAY NS (09:27)
[2023-12-05] MEDS: ASPIRIN 81MG CHEWABLE TABLET 81 MG PO (09:29)
--- NOTE | 2023-12-05 09:59 | EXP.PULM.PN ---
Subjective *Date: 12/05/23 *Time: 12:16 Interval history: No acute respiratory vents overnight. Patient admits continued improvement in her respiratory symptoms. Pulmonology Exam Inpatient Vital signs and Labs for Last 24 Hours: Temp Pulse Resp BP Pulse Ox O2 Del Method O2 Flow Rate 97.8 F 85 18 133/88 95 Nasal Cannula 2 12/05/23 08:00 12/05/23 08:00 12/05/23 08:00 12/05/23 08:00 12/05/23 08:00 12/05/23 08:00 12/05/23 08:00 Laboratory Results - last 24 hr 12/04/23 15:49: POC Glucose 274 H 12/04/23 19:52: POC Glucose 278 H 12/05/23 05:47: WBC 18.9 H, RBC 3.54 L, Hgb 11.2 L, Hct 36.1 L, MCV 101.9 H, MCH 31.7 H, MCHC 31.1 L, RDW 16.0, Plt Count 289, MPV 9.8, Neut % (Auto) 49.7, Lymph % (Auto) 40.9, Nicholas % (Auto) 8.4, Eos % (Auto) 0.7, Baso % (Auto) 0.4, Neut # (Auto) 9.4 H, Lymph # (Auto) 7.7 H, Nicholas # (Auto) 1.6 H, Eos # (Auto) 0.1, Baso # (Auto) 0.1, Total Counted 100, Neutrophils % (Manual) 38 L, Band Neutrophils % 1.0, Lymphocytes % (Manual) 45, Monocytes % (Manual) 16 H, Platelet Estimate Normal, Poikilocytosis 1+, Anisocytosis 1+, Macrocytosis 1+, Target Cells 1+, Sodium 133 L, Potassium 4.4, Chloride 100, Carbon Dioxide 36 H, Anion Gap 1.4 L, BUN 23 H, Creatinine 0.90, Estimated Creat Clear 38, Estimated GFR 63, Est GFR ( Amer) 76, Glucose 113 H, Calcium 8.9, Magnesium 2.1, Total Bilirubin 0.4, AST 28, ALT 13, Alkaline Phosphatase 74, Total Protein 6.9, Albumin 3.7, Globulin 3.2, Albumin/Globulin Ratio 1.2 12/05/23 05:59: POC Glucose 126 H I & O for Labs for Last 24 Hours: Intake & Output 12/02/23 12/03/23 12/04/23 12/05/23 23:59 23:59 23:59 23:59 Intake Total 950 / 950 600 / 600 1380 / 1380 480 / 480 Output Total 200 / 200 0 / 0 0 / 0 Balance 750 / 750 600 / 600 1380 / 1380 480 / 480 Weight 224 lb 9.6 oz 227 lb 4.8 oz 224 lb 3.362 oz 230 lb 14.4 oz Microbiology Reports for the Last 24 Hours: Microbiology 12/02/23 22:11 Sputum - Expectorated Sputum Gram Stain - Final 12/02/23 04:50 Blood Blood Culture - Preliminary 12/02/23 04:54 Blood Blood Culture - Preliminary Constitutional: Present mild distress Head: Present normocephalic and atraumatic ENT: Present normal exam, normal oropharynx and mucous membranes moist Neck: Present normal inspection and full ROM Respiratory: Present respiratory distress and able to speak in complete sentences; Absent prolonged expiratory phase or wheezes Cardiac: Present S1/S2, Tachycardia and radial pulses present GI: Present soft and distention; Absent tenderness or guarding Rectal (female): Present deferred (female): Present deferred Skin: Present intact; Absent cyanosis or jaundice Neuro: Present alert, awake and oriented x 3 Extremities: Present normal inspection; Absent clubbing or cyanosis Psychiatric: Present normal affect and cooperative Assessment and Plan *Assessment and plan (1) Acute and chronic respiratory failure with hypoxia: Status: Acute Category: Medical Code(s): J96.21 - Acute and chronic respiratory failure with hypoxia (2) Lupus disease of lung: Status: Acute Category: Medical Code(s): M32.13 - Lung involvement in systemic lupus erythematosus (3) Asthma: Status: Chronic Qualifiers: Asthma complication type: uncomplicated Asthma persistence: persistent Asthma severity: moderate Qualified Code(s): J45.40 - Moderate persistent asthma, uncomplicated Category: Medical Code(s): J45.909 - Unspecified asthma, uncomplicated (4) Pneumonia: Status: Acute Qualifiers: Laterality: right Lung location: upper lobe of lung Pneumonia type: due to unspecified organism Qualified Code(s): J18.9 - Pneumonia, unspecified organism Category: Medical Code(s): J18.9 - Pneumonia, unspecified organism (5) Fibrosis of lung: Status: Acute Category: Medical Code(s): J84.10 - Pulmonary fibrosis, unspecified Plan Ms. Cooney is a 68-year-old female no significant smoking history, currently diagnosis of asthma along with lupus-like syndrome and interstitial lung disease following at [facility],, hypertension, dyslipidemia presented to the ER complaining of chest pain and respiratory distress pulmonary was called for further evaluation and management. Neutrophilic leukocytosis upon admission. VBG upon admission did not show any significant evidence of hypoxic/hypercarbic respiratory failure. CT chest upon admission bilateral upper lobe interstitial markings more likely chronic, likely evident on her prior chest x-rays. No dense consolidation noted. Patient was initiated on levofloxacin along with nebulization therapies on methylprednisolone 60 Q8hrs. On initial examination patient appeared to be in moderate respiratory distress but no significant wheezing on auscultation. On baseline 2 to 3 L oxygen supplementation. Will continue to monitor. LHC status post OTTO to LAD. Interval update: No acute respiratory events overnight. Stable ox requirements. Improving leukocytosis. Afebrile. Hemodynamically stable. Plan: Continue oxygen supplementation to maintain O2 saturation: 90% able, weaned to 1 L this morning. Continue Trelegy 100 inhaler along with DuoNebs every 6 hours on as-needed basis Continue prednisone 40 mg daily x 14 days Continue levofloxacin 750 mg daily to complete a total of 5-day course. Renally dosed, pharmacy following. # Thank you for involving pulmonary in this patient care. Will will evaluate as an outpatient basis for the possible CT-ILD/Pulm Fibrosis. Will follow the patient in pulmonary clinic 7 to 10 days postdischarge.
--- NOTE | 2023-12-06 11:55 | CARE MANAGER ---
Spoke with patient related to hospital discharges. Patient states she is doing better today. She has her new medication and is aware of her follow up appointment. ILIANA Dill
== END 2023-12-05 12:03 | disposition home or self-care (01) | DRG 321 ==
LOC: ER 04:48 → 2ND 05:15
PROVIDERS: Internal Medicine; Internal Medicine Adolescent Medicine; Admitting Provider Nurse Practitioner Critical Care Medicine; Emergency Provider Emergency Medicine; PCP Nurse Practitioner Family; Visit Provider Internal Medicine
PROC: 027034Z Dilation of Coronary Artery, One Artery with Drug-eluting Intraluminal Device, Percutaneous Approach (ICD-10-PCS; principal; 2023-12-03 14:00)
DX: I25.110 Atherosclerotic heart disease of native coronary artery with unstable angina pectoris (principal); J18.9 Pneumonia, unspecified organism; J96.21 Acute and chronic respiratory failure with hypoxia; J44.1 Chronic obstructive pulmonary disease with (acute) exacerbation; Z68.42 Body mass index [BMI] 45.0-49.9, adult; J44.0 Chronic obstructive pulmonary disease with (acute) lower respiratory infection; E66.9 Obesity, unspecified; I10 Essential (primary) hypertension; E78.5 Hyperlipidemia, unspecified; E03.9 Hypothyroidism, unspecified; K21.9 Gastro-esophageal reflux disease without esophagitis; J45.40 Moderate persistent asthma, uncomplicated; J84.10 Pulmonary fibrosis, unspecified; G89.29 Other chronic pain; Z79.4 Long term (current) use of insulin; Z86.718 Personal history of other venous thrombosis and embolism; E11.43 Type 2 diabetes mellitus with diabetic autonomic (poly)neuropathy; K31.84 Gastroparesis; M32.9 Systemic lupus erythematosus, unspecified
CPT/HCPCS: 36415; 71045; 71250; 80048; 80053; 82803; 82962; 83036; 83605; 83735; 84443; 84484; 85007; 85025; 85347; 87040; 87070; 87205; 87636; 92928; 93005; 93306; 93458; 94640; 94760; 97163; 97165; 99152; 99153; 99291; C1725; C1769; C1876; C9600; J1644; J1956; J3475; Q9967

== ENCOUNTER 2023-12-30 11:42 | Observation (INO) | payer MEDICARE, SELFPAY ==
[2023-12-30] VITALS (19 sets, daily range): BP systolic 101–158; BP diastolic 65–109; PULSE 84–113; RESP 11–19; TEMP 36.8–36.9; O2SAT 94–98; BMI 32.8; BMI 32.3
--- NOTE | 2023-12-30 11:41 | ECG_ITS ---
APPROVED REPORT Exam: Resting ECG HR:104 bpm ECG Measurements Heart Rate 104 AXES QRSd 105 QRS -52 QT 367 T 47 QTc 428 Conclusion Sinus Tachycardia INCOMPLETE RIGHT BUNDLE BRANCH BLOCK [90+ ms QRS DURATION, TERMINAL R IN V1/V2, 40+ ms S IN I/aVL/V4/V5/V6] LEFT ANTERIOR FASCICULAR BLOCK [QRS AXIS <= -45, QR IN I, RS IN II] Electronically signed by : MARAL NAVARRETE, 12/30/2023 15:37:00
--- NOTE | 2023-12-30 11:47 | XR_ITS ---
PROCEDURE INFORMATION: Exam: XR Chest Exam date and time: 12/30/2023 11:50 AM Age: 68 years old Clinical indication: Pain; Chest pressure; Additional info: Chest pain/soa TECHNIQUE: Imaging protocol: Radiologic exam of the chest. Views: 1 view. COMPARISON: 1. CR XR CHEST PORTABLE 12/04/2023 10:[address] CHEST WO CON 12/02/2023 8:24 AM FINDINGS: Lungs: Increased central pulmonary vascular congestion. Continued bronchial wall thickening within the suprahilar regions bilaterally, left worse than right. No focal consolidation. Pleural spaces: Unremarkable. No pleural effusion. No pneumothorax. Heart/Mediastinum: Unremarkable. No cardiomegaly. Bones/joints: Unremarkable. IMPRESSION: 1. Increased central pulmonary vascular congestion. 2. Continued bronchial wall thickening within the suprahilar regions bilaterally, left worse than right.
--- NOTE | 2023-12-30 12:08 | ED_ITS ---
Discharge Plan Disposition Patient Disposition: Still a Patient Prescriptions Prescriptions: No Action ondansetron HCl 8 MG tablet 8 mg PO TIDP PRN (Reason: Nausea) methadone 10 MG tablet 10 mg PO 0600,1200,1800,2359 gabapentin 800 MG tablet 800 mg PO QID Patient Comments: TAKE 1 TABLET 4 TIMES EACH DAY levothyroxine 50 MCG tablet 50 mcg PO DAILY aspirin 81 MG tablet,chewable 81 mg PO DAILY pantoprazole 40 MG tablet,delayed release (DR/EC) 40 mg PO BID fluoxetine 20 MG capsule 20 mg PO DAILY atorvastatin 40 mg tablet 40 mg PO HS clopidogrel 75 mg tablet 75 mg PO DAILY bisoprolol fumarate 5 mg tablet 2.5 mg PO DAILY Patient Comments: take one-half tablet (2.5 mg) by oral route once daily Jardiance 25 mg tablet 25 mg PO DAILY Patient Comments: take 1 tablet (25 mg) by oral route once daily in the morning amlodipine 2.5 mg tablet 2.5 mg PO DAILY Patient Comments: take 1 tablet (2.5 mg) by oral route once daily escitalopram oxalate 20 mg tablet 20 mg PO DAILY Patient Comments: TAKE ONE TABLET BY MOUTH DAILY insulin aspart U-100 [Novolog FlexPen U-100 Insulin] 100 unit/mL (3 mL) insulin pen 10 sliding scale dose SQ TID Patient Comments: INJECT 10 UNITS UNDER THE SKIN THREE TIMES DAILY WITH MEALS bupropion HCl 150 mg tablet extended release 24 hr 150 mg PO DAILY Patient Comments: TAKE ONE TABLET BY MOUTH EVERY DAY ergocalciferol (vitamin D2) [Vitamin D2] 1,250 mcg (50,000 unit) capsule 50,000 unit PO WEEKLY Patient Comments: Take 1 capsule every week by oral route. fluticasone propionate 50 mcg/actuation [place],Suspension 1 spray INTRANASAL BID Rx Instructions: administer into each nostril guaifenesin 600 mg Tablet Extended Release 12hr 600 mg PO Q12H magnesium oxide 400 mg magnesium Tablet 400 mg PO DAILY Levemir FlexPen 100 unit/mL (3 mL) Insulin Pen 50 unit SQ HS nitroglycerin 0.4 mg tablet, sublingual 0.4 mg sublingual Q5MINP PRN (Reason: Chest Pain) Patient Comments: DISSOLVE 1 TABLET UNDER THE TONGUE EVERY 5 MINUTES NEEDED FOR CHEST PAIN. DO NOT EXCEED A TOTAL OF 3 DOSES IN 15 MINUTES. albuterol sulfate [Ventolin HFA] 90 mcg/actuation HFA aerosol inhaler 2 puff INHALATION Q4HP PRN (Reason: SOA) Patient Comments: Inhale 2 puffs every 4 hours by inhalation route. Enrico Ellipta 100-62.5-25 mcg Blister With Device 1 inh inhalation DAILY 30 Days Qty: 1 0RF prednisone 20 mg Tablet 40 mg PO DAILY 10 Days Qty: 20 0RF Referrals Follow up/Referrals: Glen Serna MD [Primary Care Provider] - See instructions Clinical Impressions Clinical Impression: Acute chest pain, Nausea & vomiting, Non-ST elevation CO (NSTEMI) Discharge ED Provider: Carmen Gamboa HPI <Carmen Gamboa DO - Last Filed: 12/30/23 15:19> General Chief Complaint: Chest Pain Stated Complaint: Chest Pain, recent heart cath w/ 1 stent Time Seen by Provider: 12/30/23 11:45 Mode of Arrival: EMS Source of Information: Patient Limitations: No Limitations Description of Symptoms (Recalled from ER Triage Doc. by RN): pt c/o centralized chest pain that radiates up her L neck and nausea. pt states the pain is dull in nature and an 8/10. the chest pain has been ongoing since yesterday but worsened today. per EMS she was taken to [facility] 3d ago for N/V. pt has a hx of COPD with 2LNC baseline at home. Pt is currently on 2LNC. 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 History of Present Illness HPI narrative: This patient is a 68-year-old female with a history of CAD status post recent stenting, type 2 diabetes, hypertension, COPD on 2 L nasal cannula, obesity, hypothyroidism, and CKD presenting with concern for chest pain, nausea, and vomiting. The patient states that for several days now, she has been feeling ill with nausea and vomiting. She was taken to [facility] 3 days ago and was evaluated and discharged home. She states that since going home she had been doing better, until today her symptoms got much worse. She states that after multiple episodes of emesis, she is having substernal chest pain. EMS was contacted, and they brought the patient in. They noted that she was hemodynamically stable en route with no acute ST elevations on EKG. They noted that she received 324 mg of aspirin and 3 sublingual nitroglycerin without good improvement. No other concerns noted at this time. Related Data Home Medications Medication Instructions Recorded Confirmed aspirin 81 mg chewable tablet 81 mg PO DAILY HEART HEALTH 11/27/19 12/02/23 gabapentin 800 mg tablet 800 mg PO QID FIBROMYALGIA PAIN 11/27/19 12/02/23 levothyroxine 50 mcg tablet 50 mcg PO DAILY HYPOTHYROIDISM 11/27/19 12/02/23 methadone 10 mg tablet 10 mg PO 0600,1200,1800,2359 11/27/19 12/02/23 FIBROMYALGIA PAIN ondansetron HCl 8 mg tablet 8 mg PO TIDP PRN Nausea 11/27/19 12/02/23 fluoxetine 20 mg capsule 20 mg PO DAILY Depression 11/28/19 12/02/23 pantoprazole 40 mg tablet,delayed 40 mg PO BID ACID REFLUX 11/28/19 12/02/23 release amlodipine 2.5 mg tablet 2.5 mg PO DAILY Hypertension 07/07/22 12/02/23 atorvastatin 40 mg tablet 40 mg PO HS High cholesterol 07/07/22 12/02/23 bisoprolol fumarate 5 mg tablet 2.5 mg PO DAILY Hypertension 07/07/22 12/02/23 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 07/07/22 12/02/23 empagliflozin 25 mg tablet 25 mg PO DAILY Diabetes 07/07/22 12/02/23 (Jardiance) albuterol sulfate 90 mcg/actuation 2 puff inhalation Q4HP PRN SOA 12/02/23 12/02/23 aerosol inhaler (Ventolin HFA) bupropion HCl 150 mg 24 hr tablet, 150 mg PO DAILY 12/02/23 12/02/23 extended release ergocalciferol (vitamin D2) 1,250 50,000 unit PO WEEKLY Supplement 12/02/23 12/02/23 mcg (50,000 unit) capsule (Vitamin D2) escitalopram oxalate 20 mg tablet 20 mg PO DAILY Depression 12/02/23 12/02/23 fluticasone propionate 50 1 spray intranasal BID ALLERGIES 12/02/23 12/02/23 mcg/actuation nasal spray,suspension guaifenesin 600 mg tablet, 600 mg PO Q12H COUGH/CONGESTION 12/02/23 12/02/23 extended release 12 hr insulin aspart U-100 100 unit/mL 10 sliding scale dose SQ TID 12/02/23 12/02/23 (3 mL) subcutaneous pen (Novolog Diabetes FlexPen U-100 Insulin aspart) insulin detemir U-100 100 unit/mL 50 unit SQ HS Diabetes 12/02/23 12/02/23 (3 mL) subcutaneous pen (Levemir FlexPen) magnesium oxide 400 mg PO DAILY Supplement 12/02/23 12/02/23 nitroglycerin 0.4 mg sublingual 0.4 mg sublingual Q5MINP PRN Chest 12/02/23 12/02/23 tablet Pain Previous Rx's Medication Instructions Recorded fluticasone fur. 100 mcg-umeclid 1 inh inhalation DAILY 30 days #1 12/05/23 62.5 mcg-vilant 25 mcg ea inhalat.powder (Trelegy Ellipta) prednisone 20 mg tablet 40 mg (2 x 20 mg) PO DAILY 10 days 12/05/23 #20 tabs Allergies Allergy/AdvReac Type Severity Reaction Status Date / Time Cephalosporins Allergy Unknown Verified 12/30/23 12:02 allergy reaction Iodinated Contrast Media Allergy Unknown Verified 12/30/23 12:02 allergy reaction meperidine Allergy Unknown Verified 12/30/23 12:02 allergy reaction NSAIDS (Non-Steroidal Allergy Unknown Verified 12/30/23 12:02 Anti-Inflamma allergy reaction pregabalin Allergy Verified 12/30/23 12:02 Sulfa (Sulfonamide Allergy Unknown Verified 12/30/23 12:02 Antibiotics) allergy reaction sumatriptan Allergy Verified 12/30/23 12:02 tizanidine Allergy Verified 12/30/23 12:02 enoxaparin [From Lovenox] AdvReac Unknown Verified 12/30/23 12:02 allergy reaction nalbuphine AdvReac Unknown Verified 12/30/23 12:02 allergy reaction promethazine AdvReac Unknown Verified 12/30/23 12:02 allergy reaction PFSH <Carmen Gamboa DO - Last Filed: 12/30/23 15:19> [facility] Disclaimer: The information contained in this section may have been updated after the patient was seen, as this information can be updated by other users. 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 Acute and chronic respiratory failure with hypoxia History of ITP History of lupus Rotator cuff impingement syndrome History of anemia History of left heart catheterization (LHC) Cataract Kidney disease Thyroid disease Asthma Anemia SVT (supraventricular tachycardia) MRSA (methicillin resistant Staphylococcus aureus) HTN (hypertension) GI bleed Gastroparesis GERD (gastroesophageal reflux disease) DVT (deep venous thrombosis) Arrhythmia Endometrial cancer Heart attack Oxygen dependent COPD (chronic obstructive pulmonary disease) Diabetes Addisons disease Surgical History History of splenectomy History of esophagogastroduodenoscopy (EGD) History of carpal tunnel surgery History of [place] fundoplication History of right heart catheterization (RHC) History of hysterectomy History of colonoscopy History of cholecystectomy Family History Other Family history of anemia Family history of asthma Family history of bleeding disorder Family history of cancer Family history of diabetes mellitus Family history of kidney disease Family history of thyroid disease Social History Smoking Status: Never smoker alcohol intake: never current occupational status: retired Travel in the last 8 weeks: None household members: none housing: house lives independently: Yes marital status: education level: college diet: diabetic caffeine: Yes <Carmen Gamboa DO - Last Filed: 12/30/23 15:19> ROS Obtained: Yes All systems reviewed & no additional complaints except as documented Physical Exam <Carmen Gamboa DO - Last Filed: 12/30/23 15:19> General General appearance: alert, in no apparent distress and obese Comment: Uncomfortable appearing Head Head exam: atraumatic and normocephalic Eye Eye exam: Present normal appearance, PERRL and EOMI ENT ENT exam: Present normal exam, normal oropharynx, mucous membranes moist and normal external ear exam Neck Neck exam: Present normal inspection, full ROM and trachea midline; Absent tenderness Chest Chest inspection: Present normal inspection and symmetric chest wall rise; Absent tenderness Respiratory Respiratory exam: Present normal lung sounds bilaterally; Absent respiratory distress, wheezes, stridor or accessory muscle use Cardiovascular Cardiovascular exam: Present normal rhythm and tachycardia Abdominal Exam Abdominal exam: Present soft, tenderness (Epigastric region) and normal bowel sounds; Absent distention, guarding, rebound or rigidity Extremities Exam Extremities exam: Present normal inspection, full ROM and normal capillary refill; Absent tenderness or edema Back Exam Back exam: Present normal inspection and full ROM; Absent tenderness Neurological Exam Neurological exam: Present alert, oriented X3, CN II-XII intact and normal gait; Absent motor sensory deficit Psychiatric Psychiatric exam: Present normal affect and normal mood Skin Skin exam: Present warm and dry HEART Score <Carmen Gamboa DO - Last Filed: 12/30/23 15:19> HEART Score HEART Score assessment performed?: Yes History (anamnesis): Slightly suspicious ECG: Normal Age: >65 years Risk factors: Atherosclerosis history Troponin: </= normal limit HEART Score: 4 <Eduardo Dumont MD - Last Filed: 12/30/23 17:19> HEART Score HEART Score: 4 Critical Care <Carmen Gamboa DO - Last Filed: 12/30/23 15:19> Critical Care Time Critical Care Time: No <Eduardo Dumont MD - Last Filed: 12/30/23 17:19> Critical Care Time Critical Care Time: Yes Attestation: On 12/30/23, the high probability of a clinically significant, sudden or life threatening deterioration of the following system(s) required my full and direct attention, intervention and personal management. The time I documented below is in addition to time spent performing reported procedures but includes the following listed in this critical care notation. Total Time Total Critical Care Time: 35 Medical Decision Making <Carmen Gamboa DO - Last Filed: 12/30/23 15:19> Medical Records Medical records reviewed: Yes I reviewed the patient's medical records. Prasad Inquiry Pt receiving controlled substance: No Vital Signs Vital Signs: 12/30/23 11:45 12/30/23 11:59 12/30/23 12:01 Temperature 98.5 F Temperature Source Oral Pulse Rate 104 H 113 H Pulse Rate [Left] 98 H Respiratory Rate 13 15 Blood Pressure 137/100 H Blood Pressure [Right Arm] 122/86 Blood Pressure Mean Blood Pressure Mean [Right Arm] 98 Blood Pressure Source [Right Arm] Automatic Cuff Blood Pressure Position [Right Arm] Sitting 02 Sat by Pulse Oximetry 97 96 Oxygen Delivery Method Nasal Cannula Oxygen Flow Rate (LPM) 2 12/30/23 12:12 12/30/23 12:30 12/30/23 13:04 Temperature Temperature Source Pulse Rate 105 H 101 H 93 H Pulse Rate [Left] Respiratory Rate 14 18 11 L Blood Pressure 123/79 123/73 112/76 Blood Pressure [Right Arm] Blood Pressure Mean Blood Pressure Mean [Right Arm] Blood Pressure Source [Right Arm] Blood Pressure Position [Right Arm] 02 Sat by Pulse Oximetry 94 L 97 96 Oxygen Delivery Method Nasal Cannula Oxygen Flow Rate (LPM) 2 12/30/23 13:32 12/30/23 14:01 12/30/23 14:31 Temperature Temperature Source Pulse Rate 102 H 89 Pulse Rate [Left] Respiratory Rate 16 16 13 Blood Pressure 144/109 H 116/76 142/82 H Blood Pressure [Right Arm] Blood Pressure Mean Blood Pressure Mean [Right Arm] Blood Pressure Source [Right Arm] Blood Pressure Position [Right Arm] 02 Sat by Pulse Oximetry 97 97 Oxygen Delivery Method Nasal Cannula Oxygen Flow Rate (LPM) 12/30/23 15:00 12/30/23 16:35 Temperature Temperature Source Pulse Rate 87 99 H Pulse Rate [Left] Respiratory Rate 12 18 Blood Pressure 158/91 H Blood Pressure [Right Arm] Blood Pressure Mean 124 Blood Pressure Mean [Right Arm] Blood Pressure Source [Right Arm] Blood Pressure Position [Right Arm] 02 Sat by Pulse Oximetry 97 98 Oxygen Delivery Method Oxygen Flow Rate (LPM) Lab Data Labs: Lab Results 12/30/23 11:40: WBC 14.1 H, RBC 4.04 L, Hgb 13.1, Hct 41.6, MCV 103.1 H, MCH 32.4 H, MCHC 31.5 L, RDW 15.6, Plt Count 349, MPV 10.0, Neut % (Auto) 64.7, Lymph % (Auto) 26.3, Alfalfa % (Auto) 7.4, Eos % (Auto) 0.9, Baso % (Auto) 0.7, N eut # (Auto) 9.1 H, Lymph # (Auto) 3.7, Alfalfa # (Auto) 1.1 H, Eos # (Auto) 0.1, Baso # (Auto) 0.1, D-Dimer 0.39, Sodium 135 L, Potassium 4.5, Chloride 95 L, C arbon Dioxide 36 H, Anion Gap 8.5, BUN 12, Creatinine 0.60, Estimated Creat Clear 83, Estimated GFR 100, Est GFR ( Amer) 121, Glucose 94, Calcium 9.1, Total Bilirubin 1.0, AST 48 H, ALT 18, Alkaline Phosphatase 68, Troponin I 0.02, NT-Pro-B Natriuret Pep 1730 H, Total Protein 7.2, Albumin 3.9, Globulin 3.3 H, Albumin/Globulin Ratio 1.2, Lipase 11 L 12/30/23 12:02: SARS-CoV-2 (PCR) Not detected, Influenza A Untype (PCR) Not detected, Influenza Type B (PCR) Not detected 12/30/23 12:35: Urine Color Yellow, Urine Appearance Clear, Urine pH 7.0, Ur Specific [place] 1.010, Urine Protein Trace, Urine Glucose (UA) 2+, Urine Ketones 2+, Urine Blood Trace-l, Urine Nitrate Negative, Urine Bilirubin 1+ A, Urine Urobilinogen 0.2, Ur Leukocyte Esterase Negative, Urine RBC Occasional, Urine WBC Occasional, Ur Squamous Epith Cells Occasional, Urine Bacteria Trace 12/30/23 15:22: Troponin I 0.06 H 12/30/23 11:40 12/30/23 11:40 Response Orders (Tests/Meds): ED MEDICATIONS Discontinued Medications Generic Name Dose Route Start Last Admin Trade Name Freq PRN Reason Stop Dose Admin Acetaminophen 1,000 mg 12/30/23 11:54 12/30/23 12:17 Acetaminophen 1,000mg/100ml Vial IV 12/30/23 11:55 1,000 mg ONCE ONE Administration Lactated Ringer's 500 mls @ 999 mls/hr 12/30/23 11:54 12/30/23 12:12 Lactated Ringer's 500ml IV 12/30/23 12:24 999 mls/hr .Q31M ONE Administration Morphine Sulfate 4 mg 12/30/23 12:26 12/30/23 12:33 Morphine 4mg/Ml Syringe IV 12/30/23 12:27 4 mg ONCE ONE Administration Ondansetron HCl 4 mg 12/30/23 11:54 12/30/23 12:12 Ondansetron 4mg/2ml Vial IV 12/30/23 11:55 4 mg ONCE ONE Administration Oxycodone HCl 5 mg 12/30/23 13:32 12/30/23 14:04 Oxycodone 5mg Immediate Release Tablet PO 12/30/23 13:33 5 mg ONCE ONE Administration ORDERS Category Date Time Status CT abdomen pelvis wo con Stat Cat Scan 12/30/23 12:[address] chest wo con Stat Cat Scan 12/30/23 12:25 Completed XR chest portable Stat Exams 12/30/23 11:47 Completed BNP [Brain Natriuretic Peptide] Stat Lab 12/30/23 11:40 Completed Complete Blood Count Auto Diff Stat Lab 12/30/23 11:40 Completed Comprehensive Metabolic Panel Stat Lab 12/30/23 11:40 Completed D-Dimer Stat Lab 12/30/23 11:40 Completed Lipase Stat Lab 12/30/23 11:40 Completed Rapid PCR Covid and Flu A/B Stat Lab 12/30/23 12:02 Completed Trop I [Troponin I] Stat Lab 12/30/23 11:40 Completed Troponin I Q3H Lab 12/30/23 15:22 Completed Troponin I Q3H Lab 12/30/23 18:00 Ordered Urinalysis and Microscopic Stat Lab 12/30/23 12:35 Completed ECG Data Tracing #1: Attestation: I reviewed this ECG and interpreted as documented below: ECG Narrative: Sinus tachycardia with a ventricular rate of [address] elevations concerning for STEMI. Incomplete right bundle branch block and left anterior fascicular block noted. ECG initial impression date: 12/30/23 ECG initial impression time: 11:42 MDM Narrative Medical Decision Narrative: In summary, this patient is a 68-year-old female presenting to the Emergency Department for evaluation of chest pain in the setting of multiple days of nausea and vomiting. Differential diagnoses considered include but are not limited to GERD, esophagitis, pancreatitis, ACS, dysrhythmia, Magy-Rivera tear, Boerhaave syndrome, dehydration, PE. Ruling out the most morbid conditions drove assessment. On exam, the patient is nontoxic-appearing. She is tachycardic in the 120s on exam, but otherwise vitals are reassuring. She is stable on her home oxygen. Workup included CBC, CMP, lipase, troponin, D-dimer, BNP, chest x-ray, and EKG. It should be noted that the patient has an IV contrast allergy. Patient was given a bolus of IV fluids as well as IV acetaminophen and Zofran for symptomatic improvement. She already received aspirin and nitroglycerin with EMS. EKG was obtained and demonstrates sinus tachycardia without concerns for acute ischemia. I independently interpreted chest x-ray prior to the radiologist read and noted no obvious acute focal consolidation or pneumothorax. Please see their read for final interpretation. Labs were obtained that demonstrated mild leukocytosis, which is nonspecific. Patient also has mildly elevated BNP at 1730. No baseline to compare. Initial troponin is negative On reassessment, patient had no improvement after administration of interventions above. Given this, she was given IV morphine for her severe chest pain that she is still experiencing. Given her persistent pain, decision was made to order CT chest, abdomen, and pelvis without IV contrast, as the patient reports a significant contrast allergy which caused her to before. Fortunately, D-dimer was obtained and negative. I dependently interpreted the CT scans prior to radiology read and noted no obvious mediastinal air, obstructive process, or other concern. Please see radiology read for final interpretation, which does not demonstrate any acute findings. Patient continues to complain of significant pain, which orally oxycodone was administered. At 1330, patient was placed in ED observation status pending second troponin and reassessment of the patient's symptoms to determine whether or not the patient would be appropriate for discharge versus admission. The patient was provided serial reevaluations and cardiac monitoring while awaiting ultimate disposition. Patient care was signed out to the oncoming provider, Dr. Dumont. <Eduardo Dumont MD - Last Filed: 12/30/23 17:19> Vital Signs Vital Signs: 12/30/23 11:45 12/30/23 11:59 12/30/23 12:01 Temperature 98.5 F Temperature Source Oral Pulse Rate 104 H 113 H Pulse Rate [Left] 98 H Respiratory Rate 13 15 Blood Pressure 137/100 H Blood Pressure [Right Arm] 122/86 Blood Pressure Mean Blood Pressure Mean [Right Arm] 98 Blood Pressure Source [Right Arm] Automatic Cuff Blood Pressure Position [Right Arm] Sitting 02 Sat by Pulse Oximetry 97 96 Oxygen Delivery Method Nasal Cannula Oxygen Flow Rate (LPM) 2 12/30/23 12:12 12/30/23 12:30 12/30/23 13:04 Temperature Temperature Source Pulse Rate 105 H 101 H 93 H Pulse Rate [Left] Respiratory Rate 14 18 11 L Blood Pressure 123/79 123/73 112/76 Blood Pressure [Right Arm] Blood Pressure Mean Blood Pressure Mean [Right Arm] Blood Pressure Source [Right Arm] Blood Pressure Position [Right Arm] 02 Sat by Pulse Oximetry 94 L 97 96 Oxygen Delivery Method Nasal Cannula Oxygen Flow Rate (LPM) 2 12/30/23 13:32 12/30/23 14:01 12/30/23 14:31 Temperature Temperature Source Pulse Rate 102 H 89 Pulse Rate [Left] Respiratory Rate 16 16 13 Blood Pressure 144/109 H 116/76 142/82 H Blood Pressure [Right Arm] Blood Pressure Mean Blood Pressure Mean [Right Arm] Blood Pressure Source [Right Arm] Blood Pressure Position [Right Arm] 02 Sat by Pulse Oximetry 97 97 Oxygen Delivery Method Nasal Cannula Oxygen Flow Rate (LPM) 12/30/23 15:00 12/30/23 16:35 Temperature Temperature Source Pulse Rate 87 99 H Pulse Rate [Left] Respiratory Rate 12 18 Blood Pressure 158/91 H Blood Pressure [Right Arm] Blood Pressure Mean 124 Blood Pressure Mean [Right Arm] Blood Pressure Source [Right Arm] Blood Pressure Position [Right Arm] 02 Sat by Pulse Oximetry 97 98 Oxygen Delivery Method Oxygen Flow Rate (LPM) Lab Data Lab results reviewed: Yes I reviewed the patient's lab results. Labs: Lab Results 12/30/23 11:40: WBC 14.1 H, RBC 4.04 L, Hgb 13.1, Hct 41.6, MCV 103.1 H, MCH 32.4 H, MCHC 31.5 L, RDW 15.6, Plt Count 349, MPV 10.0, Neut % (Auto) 64.7, Lymph % (Auto) 26.3, Alfalfa % (Auto) 7.4, Eos % (Auto) 0.9, Baso % (Auto) 0.7, N eut # (Auto) 9.1 H, Lymph # (Auto) 3.7, Alfalfa # (Auto) 1.1 H, Eos # (Auto) 0.1, Baso # (Auto) 0.1, D-Dimer 0.39, Sodium 135 L, Potassium 4.5, Chloride 95 L, C arbon Dioxide 36 H, Anion Gap 8.5, BUN 12, Creatinine 0.60, Estimated Creat Clear 83, Estimated GFR 100, Est GFR ( Amer) 121, Glucose 94, Calcium 9.1, Total Bilirubin 1.0, AST 48 H, ALT 18, Alkaline Phosphatase 68, Troponin I 0.02, NT-Pro-B Natriuret Pep 1730 H, Total Protein 7.2, Albumin 3.9, Globulin 3.3 H, Albumin/Globulin Ratio 1.2, Lipase 11 L 03/17/24 12:02: SARS-CoV-2 (PCR) Not detected, Influenza A Untype (PCR) Not detected, Influenza Type B (PCR) Not detected 12/30/23 12:35: Urine Color Yellow, Urine Appearance Clear, Urine pH 7.0, Ur Specific [place] 1.010, Urine Protein Trace, Urine Glucose (UA) 2+, Urine Ketones 2+, Urine Blood Trace-l, Urine Nitrate Negative, Urine Bilirubin 1+ A, Urine Urobilinogen 0.2, Ur Leukocyte Esterase Negative, Urine RBC Occasional, Urine WBC Occasional, Ur Squamous Epith Cells Occasional, Urine Bacteria Trace 12/30/23 15:22: Troponin I 0.06 H Response Orders (Tests/Meds): ED MEDICATIONS Discontinued Medications Generic Name Dose Route Start Last Admin Trade Name Freq PRN Reason Stop Dose Admin Acetaminophen 1,000 mg 12/30/23 11:54 12/30/23 12:17 Acetaminophen 1,000mg/100ml Vial IV 12/30/23 11:55 1,000 mg ONCE ONE Administration Lactated Ringer's 500 mls @ 999 mls/hr 12/30/23 11:54 12/30/23 12:12 Lactated Ringer's 500ml IV 12/30/23 12:24 999 mls/hr .Q31M ONE Administration Morphine Sulfate 4 mg 12/30/23 12:26 12/30/23 12:33 Morphine 4mg/Ml Syringe IV 12/30/23 12:27 4 mg ONCE ONE Administration Ondansetron HCl 4 mg 12/30/23 11:54 12/30/23 12:12 Ondansetron 4mg/2ml Vial IV 12/30/23 11:55 4 mg ONCE ONE Administration Oxycodone HCl 5 mg 12/30/23 13:32 12/30/23 14:04 Oxycodone 5mg Immediate Release Tablet PO 12/30/23 13:33 5 mg ONCE ONE Administration ORDERS Category Date Time Status CT abdomen pelvis wo con Stat Cat Scan 12/30/23 12:[address] chest wo con Stat Cat Scan 12/30/23 12:25 Completed XR chest portable Stat Exams 12/30/23 11:47 Completed BNP [Brain Natriuretic Peptide] Stat Lab 12/30/23 11:40 Completed Complete Blood Count Auto Diff Stat Lab 12/30/23 11:40 Completed Comprehensive Metabolic Panel Stat Lab 12/30/23 11:40 Completed D-Dimer Stat Lab 12/30/23 11:40 Completed Lipase Stat Lab 12/30/23 11:40 Completed Rapid PCR Covid and Flu A/B Stat Lab 12/30/23 12:02 Completed Trop I [Troponin I] Stat Lab 12/30/23 11:40 Completed Troponin I Q3H Lab 12/30/23 15:22 Completed Troponin I Q3H Lab 12/30/23 18:00 Ordered Urinalysis and Microscopic Stat Lab 12/30/23 12:35 Completed MDM Narrative Medical Decision Narrative: In summary, this patient is a 68-year-old female presenting to the Emergency Department for evaluation of chest pain in the setting of multiple days of nausea and vomiting. Differential diagnoses considered include but are not limited to GERD, esophagitis, pancreatitis, ACS, dysrhythmia, Magy-Rivera tear, Boerhaave syndrome, dehydration, PE. Ruling out the most morbid conditions drove assessment. On exam, the patient is nontoxic-appearing. She is tachycardic in the 120s on exam, but otherwise vitals are reassuring. She is stable on her home oxygen. Workup included CBC, CMP, lipase, troponin, D-dimer, BNP, chest x-ray, and EKG. It should be noted that the patient has an IV contrast allergy. Patient was given a bolus of IV fluids as well as IV acetaminophen and Zofran for symptomatic improvement. She already received aspirin and nitroglycerin with EMS. EKG was obtained and demonstrates sinus tachycardia without concerns for acute ischemia. I independently interpreted chest x-ray prior to the radiologist read and noted no obvious acute focal consolidation or pneumothorax. Please see their read for final interpretation. Labs were obtained that demonstrated mild leukocytosis, which is nonspecific. Patient also has mildly elevated BNP at 1730. No baseline to compare. Initial troponin is negative On reassessment, patient had no improvement after administration of interventions above. Given this, she was given IV morphine for her severe chest pain that she is still experiencing. Given her persistent pain, decision was made to order CT chest, abdomen, and pelvis without IV contrast, as the patient reports a significant contrast allergy which caused her to before. Fortunately, D-dimer was obtained and negative. I dependently interpreted the CT scans prior to radiology read and noted no obvious mediastinal air, obstructive process, or other concern. Please see radiology read for final interpretation, which does not demonstrate any acute findings. Patient continues to complain of significant pain, which orally oxycodone was administered. At 1330, patient was placed in ED observation status pending second troponin and reassessment of the patient's symptoms to determine whether or not the patient would be appropriate for discharge versus admission. The patient was provided serial reevaluations and cardiac monitoring while awaiting ultimate disposition. Patient care was signed out to the oncoming provider, Dr. Dumont. Reassessment 5:[address] Dumont took over from Dr. Gamboa pending second troponin which did in fact show significant elevation out of proportion to the first consistent with an NSTEMI. Patient was already given aspirin in the emergency department will be admitted to hospital medicine for further evaluation and treatment.
[2023-12-30 12:10] LABS: Coronavirus 19, PCR Not Detected (NotDetected); Influenza A, PCR Not Detected (NotDetected); Influenza B, PCR Not Detected (NotDetected)
[2023-12-30 12:12] LABS: Chloride 95 mmol/L (98-107)
[2023-12-30] MEDS: ONDANSETRON 4MG/2ML VIAL 4 MG IV (12:12)
[2023-12-30] MEDS: RINGERS SOLUTION,LACTATED 500 ML 999 ML IV (12:12)
[2023-12-30 12:13] LABS: Potassium 4.5 mmoL/L (3.5-5.1); Sodium 135 mmol/L (136-145)
[2023-12-30 12:14] LABS: D-Dimer 0.39 ug/mL (0.0-0.5)
[2023-12-30 12:15] LABS: Alanine Aminotransferase 18 U/L (12-78); Albumin Level 3.9 g/dl (3.5-5.0); Albumin/Globulin Ratio 1.2 (1.1-1.8); Alkaline Phosphatase 68 U/L (38-126); Aspartate Amino Transferase 48 U/L (14-36); Blood Urea Nitrogen 12 mg/dl (7-17); Creatinine Clearance Estimated 83 mL/min (50-200); Estimated Glomerular Filt Rate 100 ml/min (>60); GFR (African American) 121 ML/MIN (>60); Globulin 3.3 g/dL (1.3-3.2); Total Protein,Serum 7.2 g/dl (6.3-8.2)
[2023-12-30 12:16] LABS: Anion Gap 8.5 mEq/L (5-15); Calcium 9.1 mg/dl (8.4-10.2); Carbon Dioxide 36 mmol/L (22.0-30.0); Glucose 94 mg/dl (74-100)
[2023-12-30] MEDS: ACETAMINOPHEN 1,000MG/100ML VIAL 1000 MG IV (12:17)
[2023-12-30 12:19] LABS: Basophils # 0.1 K/mm3 (0-0.2); Basophils % 0.7 % (0.1-2.0); Eosinophils # 0.1 K/mm3 (0.0-0.4); Eosinophils % 0.9 % (0.1-12.0); Hematocrit 41.6 % (37.0-47.0); Hemoglobin 13.1 g/dL (12.2-16.2); Lymphocytes # 3.7 K/mm3 (0.7-4.5); Lymphocytes % 26.3 % (10-50); Mean Corpuscular HGB Conc 31.5 g/dL (31.8-35.4); Mean Corpuscular Hemoglobin 32.4 pg (27.0-31.2); Mean Corpuscular Volume 103.1 fl (81-99); Monocytes # 1.1 K/mm3 (0.1-1.0); Monocytes % 7.4 % (1.7-9.3); Neutrophils # 9.1 K/mm3 (1.8-7.8); Neutrophils % 64.7 % (37.0-80.0); Platelet Count 349 K/mm3 (142-424); Red Blood Count 4.04 M/mm3 (4.20-5.40); Red Cell Distribution Width 15.6 % (11.5-17.5); White Blood Count 14.1 K/mm3 (4.8-10.8)
[2023-12-30 12:25] LABS: NT Pro Brain Natriuretic Pep. 1730 pg/mL (0-125)
--- NOTE | 2023-12-30 12:25 | CT_ITS ---
PROCEDURE INFORMATION: Exam: CT Abdomen And Pelvis Without Contrast Exam date and time: 12/30/2023 12:42 PM Age: 68 years old Clinical indication: Vomiting; Additional info: Chest pain after vomiting, intractable n/v TECHNIQUE: Imaging protocol: Computed tomography of the abdomen and pelvis without contrast. Radiation optimization: All CT scans at this facility use at least one of these dose optimization techniques: automated exposure control; mA and/or kV adjustment per patient size (includes targeted exams where dose is matched to clinical indication); or iterative reconstruction. COMPARISON: CT CHEST WO CON 12/30/2023 12:39 PM FINDINGS: Liver: Hepatomegaly measures 19 cm in craniocaudal dimension. Gallbladder and bile ducts: Previous cholecystectomy. Pancreas: Normal. No ductal dilation. Spleen: Spleen absent. Adrenal glands: Normal. No mass. Kidneys and ureters: Normal. No hydronephrosis. Stomach and bowel: Unremarkable. No obstruction. No mucosal thickening. Appendix: No evidence of appendicitis. Intraperitoneal space: Unremarkable. No free air. No significant fluid collection. Vasculature: IVC filter in place. Lymph nodes: Unremarkable. No enlarged lymph nodes. Urinary bladder: Unremarkable as visualized. Reproductive: Unremarkable as visualized. Bones/joints: Unremarkable. No acute fracture. Soft tissues: Unremarkable. IMPRESSION: 1. Hepatomegaly measures 19 cm in craniocaudal dimension. 2. Negative for bowel obstruction. COMMENTS: For patients with an IVC filter, recommend assessment for a management plan for the patient's IVC filter. If there is no established management plan, recommend referral to an interventional clinician on a nonemergent basis for evaluation.
--- NOTE | 2023-12-30 12:25 | CT_ITS ---
PROCEDURE INFORMATION: Exam: CT Chest Without Contrast; Diagnostic Exam date and time: 12/30/2023 12:39 PM Age: 68 years old Clinical indication: Pain; Chest pressure; Additional info: Chest pain after vomiting, contrast allergy TECHNIQUE: Imaging protocol: Diagnostic computed tomography of the chest without contrast. Radiation optimization: All CT scans at this facility use at least one of these dose optimization techniques: automated exposure control; mA and/or kV adjustment per patient size (includes targeted exams where dose is matched to clinical indication); or iterative reconstruction. COMPARISON: CT CHEST WO CON 12/02/2023 8:24 AM FINDINGS: Tubes, catheters and devices: Implanted device in the left anterior chest wall. Lungs: Stable appearance of patchy airspace densities and associated bronchial wall thickening at the medial lung apices bilaterally, slightly worse on the right than left. Has chronic appearance, superimposed pneumonia can not be excluded. No new focal consolidation. Pleural spaces: Unremarkable. No pneumothorax. No pleural effusion. Heart: Unremarkable. No cardiomegaly. No pericardial effusion. Lymph nodes: Stable mild mediastinal lymphadenopathy. Subcarinal lymph node measures 1.2 cm. Vasculature: Unremarkable. No aortic aneurysm. Bones/joints: Chronic compression fractures mid and lower thoracic spine. No acute fracture. Soft tissues: Unremarkable. IMPRESSION: 1. Stable appearance of patchy airspace densities and associated bronchial wall thickening at the medial lung apices bilaterally, slightly worse on the right than left. Has chronic appearance, superimposed pneumonia can not be excluded. 2. No new focal consolidation. 3. Stable mild mediastinal lymphadenopathy. Subcarinal lymph node measures 1.2 cm.
[2023-12-30 12:28] LABS: Troponin I 0.02 ng/ml (0.00-0.034)
--- NOTE | 2023-12-30 12:30 | PC.NURSE ---
The pt called out stating her IV was leaking, it flushed without leaking so I resumed her IV fluids.
[2023-12-30] MEDS: MORPHINE 4MG/ML SYRINGE 4 MG IV (12:33)
[2023-12-30 12:40] LABS: Lipase 11 U/L (23-300)
[2023-12-30 13:04] LABS: Microscopic, Urine URINE MICROSCOPIC (MICROSCOPIC)
[2023-12-30 13:14] LABS: Appearance,Urine CLEAR (Clear); Blood, Urine TRACE-L (Negative); Color,Urine YELLOW (Yellow); Glucose,Urine (UA) 2+ (Negative); Ketones,Urine 2+ (Negative); Leukocyte Esterase,Urine Negative (Negative); Nitrate,Urine Negative (Negative); Protein,Urine TRACE (Negative); Urobilinogen,Urine 0.2 EU/dl (0.2)
[2023-12-30 13:19] LABS: Bilirubin,Urine 1+ (Negative)
--- NOTE | 2023-12-30 13:24 | PC.NURSE ---
pt stating that she is having chest pain, the pain has not changed from when she arrived to ER, states she was giving some pain medicine earlier that helped some but not alot, aware
[2023-12-30 13:42] LABS: RBC,Urine Occasional #/hpf (0-3); Squamous Epithelial Cell,Urine Occasional #/hpf (0-5); WBC,Urine Occasional #/hpf (0-3)
[2023-12-30 13:43] LABS: Bacteria,Urine Trace /lpf
[2023-12-30] MEDS: OXYCODONE 5MG IMMEDIATE RELEASE TABLET 5 MG PO (14:04)
--- NOTE | 2023-12-30 15:24 | ECG_ITS ---
APPROVED REPORT Exam: Resting ECG HR:90 bpm ECG Measurements Heart Rate 90 AXES [place] 181 P 70 QRSd 102 QRS -40 QT 390 T 40 QTc 438 Conclusion SINUS RHYTHM LEFT AXIS DEVIATION [QRS AXIS < -30] INCOMPLETE RIGHT BUNDLE BRANCH BLOCK [90+ ms QRS DURATION, TERMINAL R IN V1/V2, 40+ ms S IN I/aVL/V4/V5/V6] ABNORMAL ECG UNCONFIRMED REPORT Electronically signed by : Sim Dumont, 12/31/2023 22:53:46
[2023-12-30 15:58] LABS: Troponin I 0.06 ng/ml (0.00-0.034)
--- NOTE | 2023-12-30 16:49 | PC.NURSE ---
checked on pt she inquired about her lab work, i informed her the MD would be with her as soon as he could.
--- NOTE | 2023-12-30 17:38 | PC.NURSE ---
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
--- NOTE | 2023-12-30 18:29 | PC.NURSE ---
Report called to Namrata BARRIENTOS
[2023-12-30 19:14] LABS: Troponin I 0.09 ng/ml (0.00-0.034)
--- NOTE | 2023-12-30 19:19 | PC.NURSE ---
Patient arrived to floor via stretcher from ED at 19:31.
--- NOTE | 2023-12-30 19:34 | P.HP_ITS ---
History of Present Illness *Admission Date: 12/30/23 *Reason for visit:: nstemi *History of present illness: 68-year-old female presented to [facility] ED via ems for c/o chest pain. PMHX of CAD status post recent stenting, type 2 diabetes, hypertension, chronic pain, fibrosis of lungs, COPD on 2 L nasal cannula, obesity, hypothyroidism, and CKD. The pt states that 24 hours ago she was feeling nausea and started vomiting. She states chest pain started at 7 a.m. She took two nitro's without relief and called EMS. She was given another nitro and 324 of ASA in route to the hospital. In the ED she was given morphine and oxycodone for pain. Upon admission the pt states the morphine relieved her pain. She currently is only c/o bilateral shoulder pain and believes she has frozen shoulder. She is alert and oriented. Her ED workup is positive for a leukocytosis of 14.1, BNP of 1730, and troponins of 0.02, 0.06, and 0.09. The ED physician consulted the hospitalist team for further medical management. I admitted the pt to the medical floor. She states that she uses bumex at home sometimes when she feels like she is fluid overloaded. Within the last month she was admitted to the hospital for a COPE. She received treatment with IV Levaquin and steroids. She also had a LHC that resulted it receiving 1 stent to the LAD. Upon exam she has bilateral wheezing. She denies fevers. Does not appear ill. Her oxygen requirements are baseline for her at 2L. Her chest xray reveals pulmonary vascular congestion and chronic bronchial wall thickening with the right being worse the left. She will have a Cardiology consult placed and Pulmonary consult placed. She will be given IV lasix and resume her home pain medications. [facility] Disclaimer: The information contained in this section may have been updated after the patient was seen, as this information can be updated by other users. Medical History (Updated 12/31/23 @ 13:07 by Kyle Wharton MD) ILD (interstitial lung disease) Fibrosis of lung Lupus disease of lung Acute and chronic respiratory failure with hypoxia History of ITP History of lupus Rotator cuff impingement syndrome History of anemia History of left heart catheterization (LHC) Cataract Kidney disease Thyroid disease Asthma Anemia SVT (supraventricular tachycardia) MRSA (methicillin resistant Staphylococcus aureus) HTN (hypertension) GI bleed Gastroparesis GERD (gastroesophageal reflux disease) DVT (deep venous thrombosis) Arrhythmia Endometrial cancer Heart attack Oxygen dependent COPD (chronic obstructive pulmonary disease) Diabetes Addisons disease Surgical History History of splenectomy History of esophagogastroduodenoscopy (EGD) History of carpal tunnel surgery History of Amado fundoplication History of right heart catheterization (RHC) History of hysterectomy History of colonoscopy History of cholecystectomy Family History Other Family history of anemia Family history of asthma Family history of bleeding disorder Family history of cancer Family history of diabetes mellitus Family history of kidney disease Family history of thyroid disease Social History Smoking Status: Never smoker alcohol intake: never current occupational status: retired Travel in the last 8 weeks: None household members: none housing: house lives independently: Yes marital status: education level: college diet: diabetic caffeine: Yes Review of Systems Review of Systems Review of systems:: pertinent systems reviewed and negative unless documented below Meds Home Medications and Allergies Home Medications Medication Instructions Recorded Confirmed Type aspirin 81 mg chewable tablet 81 mg PO DAILY 11/27/19 12/30/23 History gabapentin 800 mg tablet 800 mg PO QID fibromyalgia pain 11/27/19 12/30/23 History levothyroxine 50 mcg tablet 50 mcg PO DAILY thyroid 11/27/19 12/30/23 History methadone 10 mg tablet 10 mg PO 0600,1200,1800,2359 11/27/19 12/30/23 History fibromyalgia pain ondansetron HCl 8 mg tablet 8 mg PO TIDP PRN Nausea 11/27/19 12/30/23 History pantoprazole 40 mg tablet,delayed 40 mg PO DAILY 11/28/19 12/31/23 History release amlodipine 2.5 mg tablet 2.5 mg PO DAILY High Blood Pressure 07/07/22 12/30/23 History atorvastatin 40 mg tablet 40 mg PO HS High cholesterol 07/07/22 12/30/23 History bisoprolol fumarate 5 mg tablet 2.5 mg PO DAILY High Blood Pressure 07/07/22 12/30/23 History clopidogrel 75 mg tablet 75 mg PO DAILY 07/07/22 12/30/23 History empagliflozin 25 mg tablet 25 mg PO DAILY 07/07/22 12/30/23 History (Jardiance) albuterol sulfate 90 mcg/actuation 2 puff inhalation Q4HP PRN 12/02/23 12/30/23 History aerosol inhaler (Ventolin HFA) Shortness Of Breath bupropion HCl 150 mg 24 hr tablet, 150 mg PO DAILY 12/02/23 12/30/23 History extended release ergocalciferol (vitamin D2) 1,250 50,000 unit PO WEEKLY Supplement 12/02/23 12/30/23 History mcg (50,000 unit) capsule (Vitamin D2) escitalopram oxalate 20 mg tablet 20 mg PO DAILY 12/02/23 12/30/23 History fluticasone propionate 50 1 spray intranasal BID ALLERGIES 12/02/23 12/30/23 History mcg/actuation nasal spray,suspension guaifenesin 600 mg tablet, 600 mg PO Q12H PRN Cough 12/02/23 12/30/23 History extended release 12 hr insulin aspart U-100 100 unit/mL 10 sliding scale dose SQ TIDWMEAL 12/02/23 12/31/23 History (3 mL) subcutaneous pen (Novolog Diabetes FlexPen U-100 Insulin aspart) insulin detemir U-100 100 unit/mL 50 unit SQ HS Diabetes 12/02/23 12/30/23 H istory (3 mL) subcutaneous pen (Levemir FlexPen) magnesium oxide 400 mg PO DAILY Supplement 12/02/23 12/30/23 History nitroglycerin 0.4 mg sublingual 0.4 mg sublingual Q5MINP PRN Chest 12/02/23 12/30/23 History tablet Pain fluticasone fur. 100 mcg-umeclid 1 inh inhalation DAILY 30 days #1 12/05/23 12/31/23 Rx 62.5 mcg-vilant 25 mcg ea inhalat.powder (Trelegy Ellipta) New Prescriptions to Start Prescriptions: Allergies Allergy/AdvReac Type Severity Reaction Status Date / Time Cephalosporins Allergy Unknown Verified 12/30/23 12:02 allergy reaction meperidine Allergy Unknown Verified 12/30/23 12:02 allergy reaction NSAIDS (Non-Steroidal Allergy Unknown Verified 12/30/23 12:02 Anti-Inflamma allergy reaction pregabalin Allergy Verified 12/30/23 12:02 Sulfa (Sulfonamide Allergy Unknown Verified 12/30/23 12:02 Antibiotics) allergy reaction sumatriptan Allergy Verified 12/30/23 12:02 tizanidine Allergy Verified 12/30/23 12:02 enoxaparin [From Lovenox] AdvReac Unknown Verified 12/30/23 12:02 allergy reaction nalbuphine AdvReac Unknown Verified 12/30/23 12:02 allergy reaction promethazine AdvReac Unknown Verified 12/30/23 12:02 allergy reaction Exam Data for Last 24 hours Vital signs and Labs for Last 24 Hours: Temp Pulse Resp BP Pulse Ox O2 Del Method O2 Flow Rate 98.5 F 97 H 16 113/94 H 96 Room Air 2 12/30/23 19:28 12/30/23 19:28 12/30/23 19:28 12/30/23 19:28 12/30/23 18:32 12/30/23 19:28 12/30/23 13:04 Laboratory Results - last 24 hr 12/30/23 11:40: WBC 14.1 H, RBC 4.04 L, Hgb 13.1, Hct 41.6, MCV 103.1 H, MCH 32.4 H, MCHC 31.5 L, RDW 15.6, Plt Count 349, MPV 10.0, Neut % (Auto) 64.7, Lymph % (Auto) 26.3, [place] % (Auto) 7.4, Eos % (Auto) 0.9, Baso % (Auto) 0.7, Neut # (Auto) 9.1 H, Lymph # (Auto) 3.7, [place] # (Auto) 1.1 H, Eos # (Auto) 0.1, Baso # (Auto) 0.1, D-Dimer 0.39, Sodium 135 L, Potassium 4.5, Chloride 95 L, Carbon Dioxide 36 H, Anion Gap 8.5, BUN 12, Creatinine 0.60, Estimated Creat Clear 83, Estimated GFR 100, Est GFR ( Amer) 121, Glucose 94, Calcium 9.1, Total Bilirubin 1.0, AST 48 H, ALT 18, Alkaline Phosphatase 68, Troponin I 0.02, NT-Pro-B Natriuret Pep 1730 H, Total Protein 7.2, Albumin 3.9, Globulin 3.3 H, Albumin/Globulin Ratio 1.2, Lipase 11 L 12/30/23 12:02: SARS-CoV-2 (PCR) Not detected, Influenza A Untype (PCR) Not dete cted, Influenza Type B (PCR) Not detected 12/30/23 12:35: Urine Color Yellow, Urine Appearance Clear, Urine pH 7.0, Ur Specific [place] 1.010, Urine Protein Trace, Urine Glucose (UA) 2+, Urine Ketones 2+, Urine Blood Trace-l, Urine Nitrate Negative, Urine Bilirubin 1+ A, Urine Urobilinogen 0.2, Ur Leukocyte Esterase Negative, Urine RBC Occasional, Urine WBC Occasional, Ur Squamous Epith Cells Occasional, Urine Bacteria Trace 12/30/23 15:22: Troponin I 0.06 H 12/30/23 18:15: Troponin I 0.09 H I & O for Last 24 hours: Intake & Output 12/27/23 12/28/23 12/29/23 12/30/23 23:59 23:59 23:59 23:59 Weight 95.254 kg Constitutional Constitutional: obese *Routine HEENT Exam Head: Present normocephalic and atraumatic Eye: Present EOMI and PERRL ENT: Present mucous membranes moist *Routine Neck Exam Neck: Present full ROM *Routine Respiratory Exam Respiratory: Present wheezes and symmetric chest movement; Absent respiratory di stress *Routine Cardiovascular Exam Cardiovascular: Present RRR *Routine Abdominal Exam Abdominal: Present soft and normoactive bowel sounds; Absent tenderness *Routine Rectal Exam Rectal:: deferred *Routine Genitalia Exam Genitalia:: deferred *Routine Extremities Exam Extremities: Present full ROM *Routine Skin Exam Skin: Present intact *Routine Neurological Exam Neurological: Present alert and oriented X3 Assessment and Plan *Assessment and plan (1) Non-ST elevation [place] (NSTEMI): Status: Acute Category: Medical Code(s): I21.4 - Non-ST elevation (NSTEMI) myocardial infarction (2) CHF (congestive heart failure): Status: Acute Category: Medical Code(s): I50.9 - Heart failure, unspecified (3) CAD (coronary artery disease): Status: Acute Category: Medical Code(s): I25.10 - Atherosclerotic heart disease of [place] coronary artery without angina pectoris (4) Diabetes mellitus type 2 in obese: Status: Chronic Category: Medical Code(s): E11.69 - Type 2 diabetes mellitus with other specified complication; E66.9 - Obesity, unspecified (5) COPD (chronic obstructive pulmonary disease): Status: Chronic Category: Medical Code(s): J44.9 - Chronic obstructive pulmonary disease, unspecified (6) Fibrosis of lung: Status: Acute Category: Medical Code(s): J84.10 - Pulmonary fibrosis, unspecified (7) Lupus disease of lung: Status: Acute Category: Medical Code(s): M32.13 - Lung involvement in systemic lupus erythematosus (8) HTN (hypertension): Status: Chronic Category: Medical Code(s): I10 - Essential (primary) hypertension (9) HLD (hyperlipidemia): Status: Acute Category: Medical Code(s): E78.5 - Hyperlipidemia, unspecified (10) Thyroid disease: Status: Chronic Category: Medical Code(s): E07.9 - Disorder of thyroid, unspecified (11) Chronic pain syndrome: Status: Acute Category: Medical Code(s): G89.4 - Chronic pain syndrome (12) GERD (gastroesophageal reflux disease): Status: Acute Category: Medical Code(s): K21.9 - Gastro-esophageal reflux disease without esophagitis (13) Obesity: Status: Acute Category: Medical Code(s): E66.9 - Obesity, unspecified Plan 68-year-old female presented to [facility] ED via ems for c/o chest pain. PMHX of CAD status post recent stenting, type 2 diabetes, hypertension, chronic pain, fibrosis of lungs, COPD on 2 L nasal cannula, obesity, hypothyroidism, and CKD. The pt states that 24 hours ago she was feeling nausea and started vomiting. She states chest pain started at 7 a.m. She took two nitro's without relief and called EMS. She was given another nitro and 324 of ASA in route to the hospital. In the ED she was given morphine and oxycodone for pain. Upon admission the pt states the morphine relieved her pain. She currently is only c/o bilateral shoulder pain and believes she has frozen shoulder. She is alert and oriented. Her ED workup is positive for a leukocytosis of 14.1, BNP of 1730, and troponins of 0.02, 0.06, and 0.09. The ED physician consulted the hospitalist team for further medical management. I admitted the pt to the medical floor. She states that she uses bumex at home sometimes when she feels like she is fluid overloaded. Within the last month she was admitted to the hospital for a COPE. She received treatment with IV Levaquin and steroids. She also had a LHC that resulted it receiving 1 stent to the LAD. Upon exam she has bilateral wheezing. She denies fevers. Does not appear ill. Her oxygen requirements are baseline for her at 2L. Her chest xray reveals pulmonary vascular congestion and chronic bronchial wall thickening with the right being worse the left. She will have a Cardiology consult placed and Pulmonary consult placed. She will be given IV lasix and resume her home pain medications. Plan as to follow: NSTEMI CHF CAD-continue aspirin 81 mg and plavix 75mg -c/o chest pain since 7 a.m. troponin trend of 0.02, 0.06, and 0.09 -BNP of 1730 -Diuresis with IV lasix. Strict I/O. Cardiology consult placed, thank you for the assistance -continue nitro prn and home medications for chronic pain -EKG reviewed and reveals incomplete RBBB without ST elevations -Repeat CBC and BMP in the morning to see if there is improvement in leukocytosis and no electrolyte abnormalities from diuresis DM -ssi -A1c 7.6 on 12/02 COPD FIBROSIS OF LUNG LUPUS DISEASE OF LUNG -at baseline line o2 requirements of 2L -chest xray and CT reviewed and reveals pulmonary vascular congestion and chronic bronchial wall thickening with the right being worse the left -duonebs q 6 hr prn -Pulmonary consult, thank you for the assistance HTN -continue amlodipine 2.5mg, bisoprolol 2.5 mg HLD -continue liptor 40mg THYROID DISEASE -continue levothyroxine 50 mcg. Tsh and t4 pending CHRONIC PAIN SYNDROME -continue bupropion 150 mg, lexapro 20 mg, prozac 20mg, gabapentin 800 mg QID, and methadone 10 mg QID PRN GERD -continue protonix 40mg OBESITY -complicates all aspects of care FULL CODE NPO @ MIDNIGHT DVT: HEPARIN sq Rounded on patient after nurse practitioner. Personally examined and interviewed patient. Agree with exam findings and care plan as documented. Initiated antibiotics given leukocytosis. Stable oxygen requirement of 2 L.
[2023-12-30 19:49] LABS: POC Glucose,Bedside 117 (70-110)
[2023-12-30] MEDS: FUROSEMIDE 40MG/4ML VIAL 40 MG IV (19:51)
[2023-12-30 21:11] LABS: Troponin I 0.12 ng/ml (0.00-0.034)
[2023-12-30 21:18] LABS: T4 (Thyroxine) 8.1 ug/dl (5.53-11.0)
[2023-12-30] MEDS: GABAPENTIN 800MG TABLET 800 MG PO (21:21)
[2023-12-30] MEDS: PANTOPRAZOLE 40MG TABLET 40 MG PO (21:21)
[2023-12-30] MEDS: HEPARIN SODIUM 5,000 UNIT/ML VIAL 5000 UNIT SQ (21:21)
[2023-12-30] MEDS: ATORVASTATIN 40MG TABLET 40 MG PO (21:21)
[2023-12-31] VITALS (11 sets, daily range): BP systolic 106–141; BP diastolic 72–105; PULSE 70–106; RESP 16–24; TEMP 36.8–37.1; O2SAT 93–97; BMI 33.0
[2023-12-31 00:29] LABS: Troponin I 0.15 ng/ml (0.00-0.034)
[2023-12-31] MEDS: FUROSEMIDE 40MG/4ML VIAL 60 MG IV (02:43)
--- NOTE | 2023-12-31 05:01 | PC.NURSE ---
Patient has had a good night. After her shower patient did complain of chest pain but after resting for some time the pain went away. Provider was notified she provider notification. Patient has sleep since that time. Patient does have night terrors and multiple times though the shift would yell out for help but when RN and other stiff would enter the room the patient would be sound to sleep. when RN woke the patient the patient had no memory and said she did not need anything at that time. No other issues though the shift
[2023-12-31] MEDS: ONDANSETRON 4MG/2ML VIAL 4 MG IV (05:11)
[2023-12-31] MEDS: humaLOG 100 UNITS/ML 3ML VIAL (SSI) SQ ×4 (05:11→20:28)
[2023-12-31 05:21] LABS: POC Glucose,Bedside 167 (70-110)
[2023-12-31 07:23] LABS: Basophils # 0.1 K/mm3 (0-0.2); Basophils % 0.7 % (0.1-2.0); Eosinophils # 0.2 K/mm3 (0.0-0.4); Eosinophils % 1.2 % (0.1-12.0); Hematocrit 44.6 % (37.0-47.0); Hemoglobin 13.5 g/dL (12.2-16.2); Lymphocytes # 4.2 K/mm3 (0.7-4.5); Mean Corpuscular HGB Conc 30.2 g/dL (31.8-35.4); Mean Corpuscular Hemoglobin 31.6 pg (27.0-31.2); Mean Corpuscular Volume 104.5 fl (81-99); Mean Platelet Volume 9.2 fl (7.4-10.4); Monocytes % 6.4 % (1.7-9.3); Neutrophils % 64.7 % (37.0-80.0); Platelet Count 359 K/mm3 (142-424); Red Blood Count 4.27 M/mm3 (4.20-5.40); Red Cell Distribution Width 15.7 % (11.5-17.5); White Blood Count 15.5 K/mm3 (4.8-10.8)
[2023-12-31 07:31] LABS: MANUAL DIFFERENTIAL MANUAL DIFFERENTIAL (MANUAL DIFF)
--- NOTE | 2023-12-31 07:35 | HMH.PHAINT1 ---
Pharmacy Intervention Comments: home medication list verified using list from outpatient pharmacy and pt interview
[2023-12-31 07:36] LABS: Anion Gap 9.2 mEq/L (5-15); Blood Urea Nitrogen 15 mg/dl (7-17); Calcium 9.2 mg/dl (8.4-10.2); Carbon Dioxide 40 mmol/L (22.0-30.0); Chloride 91 mmol/L (98-107); Creatinine Clearance Estimated 83 mL/min (50-200); Estimated Glomerular Filt Rate 55 ml/min (>60); GFR (African American) 67 ML/MIN (>60); Glucose 147 mg/dl (74-100); Potassium 3.2 mmoL/L (3.5-5.1); Sodium 137 mmol/L (136-145)
--- NOTE | 2023-12-31 08:03 | ECG_ITS ---
APPROVED REPORT Exam: Resting ECG HR:81 bpm ECG Measurements Heart Rate 81 AXES MD 169 P 76 QRSd 107 QRS -42 QT 360 T 59 QTc 397 Conclusion SINUS RHYTHM LEFT AXIS DEVIATION [QRS AXIS < -30] INCOMPLETE RIGHT BUNDLE BRANCH BLOCK [90+ ms QRS DURATION, TERMINAL R IN V1/V2, 40+ ms S IN I/aVL/V4/V5/V6] NONSPECIFIC T-WAVE ABNORMALITY ABNORMAL ECG UNCONFIRMED REPORT Electronically signed by : MASOOD CRUZ, 01/01/2024 06:49:16
--- NOTE | 2023-12-31 08:04 | PC.NURSE ---
Patient complaining of chest pain, VS obtained bp 134/93 pulse 86 oxygen 96% on 2LNC. Patient states pain is like a pressure that started in her elbow. Patient states she didn't have any chest pain this am and this pain felt different than admission. EKG ordered.
[2023-12-31] MEDS: NITROGLYCERIN 0.4MG SL TABLET 0.400000000000000022 MG SL (08:12)
--- NOTE | 2023-12-31 08:17 | CA_ITS ---
APPROVED REPORT EXAM: Comprehensive 2D, Doppler, and color-flow Echocardiogram [employer] Worker: Alison Prado RT(R) Ht: 4 ft 11 in Wt: 205lbs BSA: 1.86 BP: 112/76 mmHg Indications: NSTEMI, CP, COPD, HTN, hyperlipidemia, CAD, stents, GERD, SOB 2D Dimensions EF AP4 48.30 % GL Strain -17.6 % M-Mode Dimensions RVDd 3.98 cm (0.9-2.6) LA Diam 3.75 cm (1.9-4.0) LVDd 4.38 cm (3.5-5.7) LVDs 3.25 cm (3.5-5.7) IVSd 1.04 cm (0.6-1.1) PWd 0.92 cm (0.6-1.1) EF (Teich) 51.00% FS 25.80% EDV (Teich) 86.80 mL ESV (Teich) 42.50 mL LV Diastology E Decel Time 150 (160-240 msec) E/A Ratio 0.8 Mitral Valve MV E Max Henrik. 54.0 (40-130 cm/s) MV A Velocity 64.0 (40-130 cm/s) E/A Ratio 0.84 MV PHT 44.0 ms Left Ventricle The left ventricle is normal size. The left ventricular systolic function is normal. The left ventricular ejection fraction is within the normal range. There is increased LV wall thickness (IVSd 1.3 cm). There is normal LV segmental wall motion. Diastolic function is indeterminate. LVEF is 55%. Right Ventricle The right ventricle is mildly dilated. The right ventricular systolic function is normal. Atria The left atrium size is normal. The right atrium size is normal. There is no Doppler evidence of interatrial shunt. Aortic Valve The aortic valve is mildly thickened. There is no aortic valvular stenosis. Trace aortic regurgitation is present. Mitral Valve The mitral valve is normal in structure. No evidence of mitral valve stenosis. Trace mitral regurgitation. Tricuspid Valve The tricuspid valve leaflets are thin and pliable. Trace tricuspid regurgitation. There is insufficient TR jet to estimate RVSP. Pulmonic Valve The pulmonary valve is normal in structure. Trace pulmonic regurgitation. Great Vessels The aortic root is normal in size. The ascending aorta is normal in size. There is calcification noted in the ascending aorta. IVC is normal in size and collapses >50% with inspiration. Pericardium There is no pericardial effusion. Other Information Study Quality: Fair Conclusion Normal biventricular systolic function. Increased LV wall thickness (IVSd 1.3 cm). No significant valvular stenosis or regurgitation. In the setting of increased LV wall thickness and persistent symptoms, further evaluation for infiltrative diseases with cardiac MRI (amyloidosis protocol), PYP scan, and lab testing for amyloidosis is recommended if clinically appropriate. Electronically signed by : Felisha Michael MD 01/01/2024 00:06:37
--- NOTE | 2023-12-31 08:18 | CT_ITS ---
FINAL REPORT CLINICAL HISTORY: hx DVT, mediastinal lymphadenopathy COMPARISON: 12/30/2023 FINDINGS: Thin section axial CT images of the chest were obtained with contrast. 3D reformatted images were also obtained. This study was performed with techniques to keep radiation doses as low as reasonably achievable (ALARA). Individualized dose reduction techniques using automated exposure control or adjustment of mA and/or kV according to the patient's size were employed. There is no evidence of pulmonary embolism. There is dilation of the right main pulmonary artery. Pulmonary arterial hypertension is not excluded. There is no evidence of thoracic aortic aneurysm or dissection. Multiple, small, borderline size mediastinal lymph nodes are stable. There are persistent pulmonary opacities, greatest in the upper lobes. Much of this is likely chronic. Superimposed pneumonia is not excluded. Limited images of the upper abdomen demonstrate postoperative changes from cholecystectomy. IMPRESSION: No evidence of pulmonary embolism. Dilatation of the right main pulmonary artery. Pulmonary arterial hypertension not excluded. Persistent pulmonary opacities, greatest in the upper lobes. Superimposed pneumonia is not excluded. Reviewed, Interpreted and Dictated by Ghanshyam Valenzuela III, MD Transcribed by Shira Mcnair Authenticated and [facility]
[2023-12-31] MEDS: buPROPion HCl SR 150MG TAB 150 MG PO (08:33)
[2023-12-31] MEDS: ASPIRIN 81MG CHEWABLE TABLET 81 MG PO (08:33)
[2023-12-31] MEDS: CITALOPRAM 40MG TABLET 40 MG PO (08:33)
[2023-12-31] MEDS: FLUOXETINE 20MG CAPSULE 20 MG PO (08:33)
[2023-12-31] MEDS: GABAPENTIN 800MG TABLET 800 MG PO ×2 (08:33→18:00)
[2023-12-31] MEDS: PANTOPRAZOLE 40MG TABLET 40 MG PO ×2 (08:34→20:28)
[2023-12-31] MEDS: CLOPIDOGREL 75MG TAB 75 MG PO (08:34)
[2023-12-31] MEDS: HEPARIN SODIUM 5,000 UNIT/ML VIAL 5000 UNIT SQ ×2 (08:34→20:28)
[2023-12-31] MEDS: BISOPROLOL 5MG TABLET 2.5 MG PO (08:34)
[2023-12-31] MEDS: AMLODIPINE 2.5MG TABLET 2.5 MG PO (08:34)
[2023-12-31] MEDS: LEVOTHYROXINE 50MCG (0.05MG) TAB 50 MCG PO (08:34)
[2023-12-31 08:53] LABS: Lymphocytes % 30 % (10-50); Monocytes % 10 % (2-9); Neutrophils % 60 % (42-76); Nucleated Red Blood Cells 3; Total Cells Counted 100
[2023-12-31 08:54] LABS: Macrocytosis 1+; Platelet Estimate Normal
[2023-12-31] MEDS: SODIUM CHLORIDE 0.9% 10ML SYR (RAD ONLY) 10 ML IV (09:19)
[2023-12-31] MEDS: IOPAMIDOL-370 (76%);100ML BOTTLE 75 ML IV (09:19)
[2023-12-31] MEDS: 0.9 % SODIUM CHLORIDE 50 ML VIAL IV (09:19)
[2023-12-31] MEDS: LEVOFLOXACIN/D5W 750 MG/150 ML 750 MG/150 ML PIGGYBACK 100 MG IV (09:49)
--- NOTE | 2023-12-31 09:52 | P.CONS_ITS ---
History of Present Illness History of present illness: Ms. Cooney is a 68-year-old female no significant smoking history, diagnosed with asthma, lupus-like syndrome and ILD presented, history of CAD status post stenting, type 2 diabetes mellitus, hypertension presented to the ER complaining of chest discomfort and pulmonary was called for further evaluation and management. Patient admits worsening respiratory distress along with breathing predominantly with exertion for the last 5 to 7 days. Denies any especially fevers or chills. Denies any worsening productive phlegm. [facility] Disclaimer: The information contained in this section may have been updated after the patient was seen, as this information can be updated by other users. Medical History (Updated 12/31/23 @ 13:07 by Kyle Wharton MD) ILD (interstitial lung disease) Fibrosis of lung Lupus disease of lung Acute and chronic respiratory failure with hypoxia History of ITP History of lupus Rotator cuff impingement syndrome History of anemia History of left heart catheterization (LHC) Cataract Kidney disease Thyroid disease Asthma Anemia SVT (supraventricular tachycardia) MRSA (methicillin resistant Staphylococcus aureus) HTN (hypertension) GI bleed Gastroparesis GERD (gastroesophageal reflux disease) DVT (deep venous thrombosis) Arrhythmia Endometrial cancer Heart attack Oxygen dependent COPD (chronic obstructive pulmonary disease) Diabetes Addisons disease Surgical History History of splenectomy History of esophagogastroduodenoscopy (EGD) History of carpal tunnel surgery History of Amado fundoplication History of right heart catheterization (RHC) History of hysterectomy History of colonoscopy History of cholecystectomy Family History Other Family history of anemia Family history of asthma Family history of bleeding disorder Family history of cancer Family history of diabetes mellitus Family history of kidney disease Family history of thyroid disease Social History Smoking Status: Never smoker alcohol intake: never current occupational status: retired Travel in the last 8 weeks: None household members: none housing: house lives independently: Yes marital status: education level: college diet: diabetic caffeine: Yes Review of Systems Constitutional Constitutional: Reports anorexia, Reports body ache(s) and Reports fatigue Eyes Eyes: Denies eye discharge, Denies dry eyes, Denies irritation and Denies itchy eyes ENT Ears, Nose, Mouth, and Throat: Denies epistaxis, Denies facial pain, Denies lip swelling and Denies throat swelling *Cardiovascular Cardiovascular: Reports dyspnea and Reports dyspnea on exertion *Respiratory Respiratory: Reports chest congestion, Reports cough, Reports dyspnea, Reports dyspnea on exertion, Denies excessive phlegm production and Reports wheezing *Gastrointestinal Gastrointestinal: Denies abdominal pain, Denies belching and Denies cramping *Musculoskeletal Musculoskeletal: Reports back pain, Reports myalgias and Reports other (No small joint swelling or Pain) Psychiatric Psychiatric: Denies homicidal ideation and Denies suicidal ideation Endocrine Endocrine: Reports fatigue and Denies heat intolerance Hematologic/Lymphatic Hematologic/Lymphatic: Denies easy bleeding and Denies lymphadenopathy Allergic/Immunologic Allergic/Immunologic: Denies itchy eyes, Denies lip swelling, Denies throat swelling and Reports wheezing Pulmonology Exam Inpatient Vital signs and Labs for Last 24 Hours: Temp Pulse Resp BP Pulse Ox O2 Del Method O2 Flow Rate 98.8 F 106 H 22 129/79 94 L Nasal Cannula 2 12/31/23 07:13 12/31/23 08:20 12/31/23 08:20 12/31/23 08:20 12/31/23 08:20 12/31/23 08:20 12/31/23 08:20 Laboratory Results - last 24 hr 12/30/23 11:40: WBC 14.1 H, RBC 4.04 L, Hgb 13.1, Hct 41.6, MCV 103.1 H, MCH 32.4 H, MCHC 31.5 L, RDW 15.6, Plt Count 349, MPV 10.0, Neut % (Auto) 64.7, Lymph % (Auto) 26.3, [place] % (Auto) 7.4, Eos % (Auto) 0.9, Baso % (Auto) 0.7, N eut # (Auto) 9.1 H, Lymph # (Auto) 3.7, [place] # (Auto) 1.1 H, Eos # (Auto) 0.1, Baso # (Auto) 0.1, D-Dimer 0.39, Sodium 135 L, Potassium 4.5, Chloride 95 L, C arbon Dioxide 36 H, Anion Gap 8.5, BUN 12, Creatinine 0.60, Estimated Creat Clear 83, Estimated GFR 100, Est GFR ( Amer) 121, Glucose 94, Calcium 9.1, Total Bilirubin 1.0, AST 48 H, ALT 18, Alkaline Phosphatase 68, Troponin I 0.02, NT-Pro-B Natriuret Pep 1730 H, Total Protein 7.2, Albumin 3.9, Globulin 3.3 H, Albumin/Globulin Ratio 1.2, Lipase 11 L 12/30/23 12:02: SARS-CoV-2 (PCR) Not detected, Influenza A Untype (PCR) Not detected, Influenza Type B (PCR) Not detected 12/30/23 12:35: Urine Color Yellow, Urine Appearance Clear, Urine pH 7.0, Ur Specific Concepcion 1.010, Urine Protein Trace, Urine Glucose (UA) 2+, Urine Ketones 2+, Urine Blood Trace-l, Urine Nitrate Negative, Urine Bilirubin 1+ A, Urine Urobilinogen 0.2, Ur Leukocyte Esterase Negative, Urine RBC Occasional, Urine WBC Occasional, Ur Squamous Epith Cells Occasional, Urine Bacteria Trace 12/30/23 15:22: Troponin I 0.06 H 12/30/23 18:15: Troponin I 0.09 H 12/30/23 19:42: POC Glucose 117 H 12/30/23 20:30: Troponin I 0.12 H 12/30/23 20:30: Troponin I Cancelled, TSH 1.50, Thyroxine (T4) 8.1 12/30/23 23:40: Troponin I 0.15 H 12/31/23 05:04: POC Glucose 167 H 12/31/23 06:59: WBC 15.5 H, RBC 4.27, Hgb 13.5, Hct 44.6, MCV 104.5 H, MCH 31.6 H, MCHC 30.2 L, RDW 15.7, Plt Count 359, MPV 9.2, Neut % (Auto) 64.7, Lymph % (Auto) 27.0, [place] % (Auto) 6.4, Eos % (Auto) 1.2, Baso % (Auto) 0.7, Neut # (Auto) 10.0 H, Lymph # (Auto) 4.2, [place] # (Auto) 1.0, Eos # (Auto) 0.2, Baso # (Auto) 0.1, Total Counted 100, Neutrophils % (Manual) 60, Lymphocytes % (Manual) 30, Monocytes % (Manual) 10 H, Nucleated RBCs 3, Platelet Estimate Normal, Macrocytosis 1+, Sodium 137, Potassium 3.2 L D, Chloride 91 L, Carbon Dioxide 40 H, Anion Gap 9.2, BUN 15, Creatinine 1.00 D, Estimated Creat Clear 83, E stimated GFR 55 L, Est GFR ( Amer) 67 D, Glucose 147 H D, Calcium 9.2 I & O for Labs for Last 24 Hours: Intake & Output 12/28/23 12/29/23 12/30/23 12/31/23 23:59 23:59 23:59 23:59 Intake Total 350 / 350 0 / 0 Output Total 0 / 0 1075 / 1075 Balance 350 / 350 -1075 / -1075 Weight 205 lb 14.4 oz 210 lb 1.6 oz Constitutional: Present moderate distress Head: Present normocephalic and atraumatic ENT: Present normal exam, normal oropharynx and mucous membranes moist Neck: Present normal inspection and full ROM Respiratory: Present rales, respiratory distress, wheezes and able to speak in complete sentences Cardiac: Present S1/S2, Tachycardia and radial pulses present GI: Present soft and distention; Absent tenderness or guarding Rectal (female): Present deferred (female): Present deferred Skin: Present intact; Absent cyanosis or jaundice Neuro: Present alert, awake and oriented x 3 Extremities: Present normal inspection; Absent clubbing or cyanosis Psychiatric: Present normal affect and cooperative Meds Home Medications and Allergies Home Medications Medication Instructions Recorded Confirmed Type aspirin 81 mg chewable tablet 81 mg PO DAILY 11/27/19 12/30/23 History gabapentin 800 mg tablet 800 mg PO QID fibromyalgia pain 11/27/19 12/30/23 History levothyroxine 50 mcg tablet 50 mcg PO DAILY thyroid 11/27/19 12/30/23 History methadone 10 mg tablet 10 mg PO 0600,1200,1800,2359 11/27/19 12/30/23 History fibromyalgia pain ondansetron HCl 8 mg tablet 8 mg PO TIDP PRN Nausea 11/27/19 12/30/23 History pantoprazole 40 mg tablet,delayed 40 mg PO DAILY 11/28/19 12/31/23 History release amlodipine 2.5 mg tablet 2.5 mg PO DAILY High Blood Pressure 07/07/22 12/30/23 History atorvastatin 40 mg tablet 40 mg PO HS High cholesterol 07/07/22 12/30/23 History bisoprolol fumarate 5 mg tablet 2.5 mg PO DAILY High Blood Pressure 07/07/22 12/30/23 History clopidogrel 75 mg tablet 75 mg PO DAILY 07/07/22 12/30/23 History empagliflozin 25 mg tablet 25 mg PO DAILY 07/07/22 12/30/23 History (Jardiance) albuterol sulfate 90 mcg/actuation 2 puff inhalation Q4HP PRN 12/02/23 12/30/23 History aerosol inhaler (Ventolin HFA) Shortness Of Breath bupropion HCl 150 mg 24 hr tablet, 150 mg PO DAILY 12/02/23 12/30/23 History extended release ergocalciferol (vitamin D2) 1,250 50,000 unit PO WEEKLY Supplement 12/02/23 12/30/23 History mcg (50,000 unit) capsule (Vitamin D2) escitalopram oxalate 20 mg tablet 20 mg PO DAILY 12/02/23 12/30/23 History fluticasone propionate 50 1 spray intranasal BID ALLERGIES 12/02/23 12/30/23 History mcg/actuation nasal spray,suspension guaifenesin 600 mg tablet, 600 mg PO Q12H PRN Cough 12/02/23 12/30/23 History extended release 12 hr insulin aspart U-100 100 unit/mL 10 sliding scale dose SQ TIDWMEAL 12/02/23 12/31/23 History (3 mL) subcutaneous pen (Novolog Diabetes FlexPen U-100 Insulin aspart) insulin detemir U-100 100 unit/mL 50 unit SQ HS Diabetes 12/02/23 12/30/23 History (3 mL) subcutaneous pen (Levemir FlexPen) magnesium oxide 400 mg PO DAILY Supplement 12/02/23 12/30/23 History nitroglycerin 0.4 mg sublingual 0.4 mg sublingual Q5MINP PRN Chest 12/02/23 12/30/23 History tablet Pain fluticasone fur. 100 mcg-umeclid 1 inh inhalation DAILY 30 days #1 12/05/23 12/31/23 Rx 62.5 mcg-vilant 25 mcg ea inhalat.powder (Trelegy Ellipta) New Prescriptions to Start Prescriptions: Allergies Allergy/AdvReac Type Severity Reaction Status Date / Time Cephalosporins Allergy Unknown Verified 12/30/23 12:02 allergy reaction meperidine Allergy Unknown Verified 12/30/23 12:02 allergy reaction NSAIDS (Non-Steroidal Allergy Unknown Verified 12/30/23 12:02 Anti-Inflamma allergy reaction pregabalin Allergy Verified 12/30/23 12:02 Sulfa (Sulfonamide Allergy Unknown Verified 12/30/23 12:02 Antibiotics) allergy reaction sumatriptan Allergy Verified 12/30/23 12:02 tizanidine Allergy Verified 12/30/23 12:02 enoxaparin [From Lovenox] AdvReac Unknown Verified 12/30/23 12:02 allergy reaction nalbuphine AdvReac Unknown Verified 12/30/23 12:02 allergy reaction promethazine AdvReac Unknown Verified 12/30/23 12:02 allergy reaction Results Laboratory Findings 12/31/23 06:59 12/31/23 06:59 PT/INR, D-dimer D-Dimer 0.39 ug/mL (0.0-0.5) 12/30/23 11:40 Abnormal lab findings: Abnormal Labs 12/30/23 12/30/23 12/30/23 11:40 12:35 15:22 WBC 14.1 H RBC 4.04 L MCV 103.1 H MCH 32.4 H MCHC 31.5 L Neut # (Auto) 9.1 H [place] # (Auto) 1.1 H Monocytes % (Manual) Sodium 135 L Potassium Chloride 95 L Carbon Dioxide 36 H Estimated GFR Glucose POC Glucose AST 48 H Troponin I 0.06 H NT-Pro-B Natriuret Pep 1730 H Globulin 3.3 H Lipase 11 L Urine Bilirubin 1+ A 12/30/23 12/30/23 12/30/23 18:15 19:42 20:30 WBC RBC MCV MCH MCHC Neut # (Auto) [place] # (Auto) Monocytes % (Manual) Sodium Potassium Chloride Carbon Dioxide Estimated GFR Glucose POC Glucose 117 H AST Troponin I 0.09 H 0.12 H NT-Pro-B Natriuret Pep Globulin Lipase Urine Bilirubin 12/30/23 12/31/23 12/31/23 23:40 05:04 06:59 WBC 15.5 H RBC MCV 104.5 H MCH 31.6 H MCHC 30.2 L Neut # (Auto) 10.0 H [place] # (Auto) Monocytes % (Manual) 10 H Sodium Potassium 3.2 L D Chloride 91 L Carbon Dioxide 40 H Estimated GFR 55 L Glucose 147 H D POC Glucose 167 H AST Troponin I 0.15 H NT-Pro-B Natriuret Pep Globulin Lipase Urine Bilirubin Assessment and Plan *Assessment and plan (1) Fibrosis of lung: Status: Acute Category: Medical Code(s): J84.10 - Pulmonary fibrosis, unspecified (2) ILD (interstitial lung disease): Status: Acute Category: Medical Code(s): J84.9 - Interstitial pulmonary disease, unspecified (3) Pneumonia: Status: Acute Qualifiers: Pneumonia type: due to unspecified organism Laterality: right Lung location: upper lobe of lung Qualified Code(s): J18.9 - Pneumonia, unspecified organism Category: Medical Code(s): J18.9 - Pneumonia, unspecified organism (4) Acute and chronic respiratory failure with hypoxia: Status: Acute Category: Medical Code(s): J96.21 - Acute and chronic respiratory failure with hypoxia Plan Ms. Cooney is a 68-year-old female no significant smoking history, diagnosed with asthma, lupus-like syndrome and ILD presented, history of CAD status post stenting, type 2 diabetes mellitus, hypertension presented to the ER complaining of chest discomfort and pulmonary was called for further evaluation and management. Patient admits worsening respiratory distress along with breathing predominantly with exertion for the last 5 to 7 days. Denies any especially fevers or chills. Denies any worsening productive phlegm. Neutrophilic leukocytosis upon admission. Patient on admission was initiated on d antibiotics along with nebulization therapies. CT chest and CTA upon admission reviewed, no evidence of pulmonary embolism. Continue to bilateral upper lobe interstitial changes along with fibrosis unchanged from her 2023. Patient on that hospital admission and discharged home on Levoflaxacin, prednisone x14 days and Trelegy 100 inhaler. Blood cultures from the admission rare from positive cocci and gram-negative rods. Final cultures negative. Blood cultures from that admission no growth. Auscultation moderate respiratory distress with bilateral significant wheezing noted. Plan: Continue oxygen supplementation to maintain O2 saturation goal of 90 to 95% but currently on home baseline 2 L. DuoNebs 4 hours along with Pulmicort every 12 scheduled Methylprednisolone 40 mg IV daily Continue levofloxacin. Will hold off on escalating antibiotics at this point of time SOREN, CRP, nasal MRSA PCR # Thank you for involving pulmonary in this patient care. Will continue to follow.
[2023-12-31] MEDS: EMPAGLIFLOZIN 10MG TABLET 10 MG PO (09:56)
[2023-12-31 11:18] LABS: POC Glucose,Bedside 171 (70-110)
--- NOTE | 2023-12-31 11:33 | P.CONCA_ITS ---
History of Present Illness History of Present Illness Consult date: 12/31/23 Requesting physician: Geoff Church Consult reason: chest pain Chief complaint: chest pain History of present illness: 68-year-old white female historically followed by [facility] cardiology presented to ER with complaints of chest pain. She has history of interstitial lung disease beginning in her 40s of uncertain etiology, on O2, lupus, BMI 45, history of DVT status post IVC filter, history of GI bleed, SVT, MRSA, hypothyroidism, anemia, ITP status postsplenectomy 1986, endometrial cancer in her 30s. She presented here as a new patient to us in November complaining of worsening chest pain and dyspnea on exertion. She underwent heart cath here December 03 showing 70% LAD stenosis which was stented successfully. She also had a 40% lesion in obtuse marginal left medical therapy, elevated EDP. Echo at that time showed normal BiV function, mild hypokinesis of anterior LV wall, mild MR, mild AI. Patient was discharged home stable on guideline directed medical therapy. States she had been feeling at her baseline then late last night she developed sudden onset substernal chest discomfort associated with nausea and vomiting and presented back to the emergency room. Workup revealed white blood cell count 15,000, creatinine 1.0, troponin 0.06, 0.09, 0.15, proBNP 1730. CT noncontrast revealed bilateral airspace densities with bronchial thickening superimposed pneumonia cannot be excluded, stable mediastinal lymphadenopathy, subcarinal lymph node 1.2 cm. EKG showed sinus rhythm with no ischemic changes, her vitals have been normal since arrival. [facility] Disclaimer: The information contained in this section may have been updated after the patient was seen, as this information can be updated by other users. Medical History (Updated 12/31/23 @ 13:07 by Kyle Wharton MD) ILD (interstitial lung disease) Fibrosis of lung Lupus disease of lung Acute and chronic respiratory failure with hypoxia History of ITP History of lupus Rotator cuff impingement syndrome History of anemia History of left heart catheterization (LHC) Cataract Kidney disease Thyroid disease Asthma Anemia SVT (supraventricular tachycardia) MRSA (methicillin resistant Staphylococcus aureus) HTN (hypertension) GI bleed Gastroparesis GERD (gastroesophageal reflux disease) DVT (deep venous thrombosis) Arrhythmia Endometrial cancer Heart attack Oxygen dependent COPD (chronic obstructive pulmonary disease) Diabetes Addisons disease Surgical History History of splenectomy History of esophagogastroduodenoscopy (EGD) History of carpal tunnel surgery History of [place] fundoplication History of right heart catheterization (RHC) History of hysterectomy History of colonoscopy History of cholecystectomy Family History Other Family history of anemia Family history of asthma Family history of bleeding disorder Family history of cancer Family history of diabetes mellitus Family history of kidney disease Family history of thyroid disease Social History Smoking Status: Never smoker alcohol intake: never current occupational status: retired Travel in the last 8 weeks: None household members: none housing: house lives independently: Yes marital status: education level: college diet: diabetic caffeine: Yes Review of Systems Constitutional Constitutional: Reports fatigue and Reports weakness Eyes Eyes: Denies loss of vision ENT Ears, Nose, Mouth, and Throat: Denies hearing loss and Denies vertigo *Cardiovascular Cardiovascular: Denies chest pain, Reports dyspnea and Denies syncope *Respiratory Respiratory: Denies cough, Reports dyspnea and Reports wheezing *Gastrointestinal Gastrointestinal: Denies change in stool character, Reports nausea and Reports vomiting *Musculoskeletal Musculoskeletal: Denies muscle weakness Integumentary/Breasts Skin/Breast: Denies changing lesions *Neurologic Neurologic: Denies loss of vision, Denies syncope, Denies vertigo and Reports weakness Endocrine Endocrine: Reports fatigue Allergic/Immunologic Allergic/Immunologic: Reports wheezing Exam Data for Last 24 hours Vital signs and Labs for Last 24 Hours: Temp Pulse Resp BP Pulse Ox O2 Del Method O2 Flow Rate 98.8 F 106 H 22 129/79 94 L Nasal Cannula 2 12/31/23 07:13 12/31/23 08:20 12/31/23 08:20 12/31/23 08:20 12/31/23 08:20 12/31/23 09:30 12/31/23 09:30 Laboratory Results - last 24 hr 12/30/23 11:40: WBC 14.1 H, RBC 4.04 L, Hgb 13.1, Hct 41.6, MCV 103.1 H, MCH 32.4 H, MCHC 31.5 L, RDW 15.6, Plt Count 349, MPV 10.0, Neut % (Auto) 64.7, Lymph % (Auto) 26.3, [place] % (Auto) 7.4, Eos % (Auto) 0.9, Baso % (Auto) 0.7, Neut # (Auto) 9.1 H, Lymph # (Auto) 3.7, [place] # (Auto) 1.1 H, Eos # (Auto) 0.1, Baso # (Auto) 0.1, D-Dimer 0.39, Sodium 135 L, Potassium 4.5, Chloride 95 L, Carbon Dioxide 36 H, Anion Gap 8.5, BUN 12, Creatinine 0.60, Estimated Creat Clear 83, Estimated GFR 100, Est GFR ( Amer) 121, Glucose 94, Calcium 9.1, Total Bilirubin 1.0, AST 48 H, ALT 18, Alkaline Phosphatase 68, Troponin I 0.02, NT-Pro-B Natriuret Pep 1730 H, Total Protein 7.2, Albumin 3.9, Globulin 3.3 H, Albumin/Globulin Ratio 1.2, Lipase 11 L 12/30/23 12:02: SARS-CoV-2 (PCR) Not detected, Influenza A Untype (PCR) Not detected, Influenza Type B (PCR) Not detected 12/30/23 12:35: Urine Color Yellow, Urine Appearance Clear, Urine pH 7.0, Ur Specific [place] 1.010, Urine Protein Trace, Urine Glucose (UA) 2+, Urine Ketones 2+, Urine Blood Trace-l, Urine Nitrate Negative, Urine Bilirubin 1+ A, Urine Urobilinogen 0.2, Ur Leukocyte Esterase Negative, Urine RBC Occasional, Urine WBC Occasional, Ur Squamous Epith Cells Occasional, Urine Bacteria Trace 12/30/23 15:22: Troponin I 0.06 H 12/30/23 18:15: Troponin I 0.09 H 12/30/23 19:42: POC Glucose 117 H 12/30/23 20:30: Troponin I 0.12 H 12/30/23 20:30: Troponin I Cancelled, TSH 1.50, Thyroxine (T4) 8.1 12/30/23 23:40: Troponin I 0.15 H 12/31/23 05:04: POC Glucose 167 H 12/31/23 06:59: WBC 15.5 H, RBC 4.27, Hgb 13.5, Hct 44.6, MCV 104.5 H, MCH 31.6 H, MCHC 30.2 L, RDW 15.7, Plt Count 359, MPV 9.2, Neut % (Auto) 64.7, Lymph % (Auto) 27.0, [place] % (Auto) 6.4, Eos % (Auto) 1.2, Baso % (Auto) 0.7, Neut # (Auto) 10.0 H, Lymph # (Auto) 4.2, [place] # (Auto) 1.0, Eos # (Auto) 0.2, Baso # (Auto) 0.1, Total Counted 100, Neutrophils % (Manual) 60, Lymphocytes % (Manual) 30, Monocytes % (Manual) 10 H, Nucleated RBCs 3, Platelet Estimate Normal, Macrocytosis 1+, Sodium 137, Potassium 3.2 L D, Chloride 91 L, Carbon Dioxide 40 H, Anion Gap 9.2, BUN 15, Creatinine 1.00 D, Estimated Creat Clear 83, Estimated GFR 55 L, Est GFR ( Amer) 67 D, Glucose 147 H D, Calcium 9.2 12/31/23 11:10: POC Glucose 171 H I & O for Last 24 hours: Intake & Output 12/28/23 12/29/23 12/30/23 12/31/23 23:59 23:59 23:59 23:59 Intake Total 350 / 350 0 / 0 Output Total 0 / 0 1075 / 1075 Balance 350 / 350 -1075 / -1075 Weight 205 lb 14.4 oz 210 lb 1.6 oz Constitutional Constitutional: no acute distress, obese and cooperative *Routine HEENT Exam Eye: Present PERRL *Routine Respiratory Exam Respiratory: Present CTA bilaterally and wheezes; Absent accessory muscle use or crackles Comments: Severe wheezing throughout *Routine Cardiovascular Exam Cardiovascular: Present RRR, Normal S1 and Normal S2; Absent murmur, gallop or rubs *Routine Abdominal Exam Abdominal: Present soft; Absent tenderness *Routine Extremities Exam Extremities: Present pulses intact; Absent cyanosis or edema *Routine Skin Exam Skin: Present intact; Absent erythema or wounds *Routine Neurological Exam Neurological: Present alert and oriented X3 Routine Psychiatric Exam Psychiatric: Present cooperative Meds Home Medications and Allergies Home Medications Medication Instructions Recorded Confirmed Type aspirin 81 mg chewable tablet 81 mg PO DAILY 11/27/19 12/30/23 History gabapentin 800 mg tablet 800 mg PO QID fibromyalgia pain 11/27/19 12/30/23 History levothyroxine 50 mcg tablet 50 mcg PO DAILY thyroid 11/27/19 12/30/23 History methadone 10 mg tablet 10 mg PO 0600,1200,1800,2359 11/27/19 12/30/23 History fibromyalgia pain ondansetron HCl 8 mg tablet 8 mg PO TIDP PRN Nausea 11/27/19 12/30/23 History pantoprazole 40 mg tablet,delayed 40 mg PO DAILY 11/28/19 12/31/23 History release amlodipine 2.5 mg tablet 2.5 mg PO DAILY High Blood Pressure 07/07/22 12/30/23 History atorvastatin 40 mg tablet 40 mg PO HS High cholesterol 07/07/22 12/30/23 History bisoprolol fumarate 5 mg tablet 2.5 mg PO DAILY High Blood Pressure 07/07/22 12/30/23 History clopidogrel 75 mg tablet 75 mg PO DAILY 07/07/22 12/30/23 History empagliflozin 25 mg tablet 25 mg PO DAILY 07/07/22 12/30/23 History (Jardiance) albuterol sulfate 90 mcg/actuation 2 puff inhalation Q4HP PRN 12/02/23 12/30/23 History aerosol inhaler (Ventolin HFA) Shortness Of Breath bupropion HCl 150 mg 24 hr tablet, 150 mg PO DAILY 12/02/23 12/30/23 History extended release ergocalciferol (vitamin D2) 1,250 50,000 unit PO WEEKLY Supplement 12/02/23 12/30/23 History mcg (50,000 unit) capsule (Vitamin D2) escitalopram oxalate 20 mg tablet 20 mg PO DAILY 12/02/23 12/30/23 History fluticasone propionate 50 1 spray intranasal BID ALLERGIES 12/02/23 12/30/23 History mcg/actuation nasal spray,suspension guaifenesin 600 mg tablet, 600 mg PO Q12H PRN Cough 12/02/23 12/30/23 History extended release 12 hr insulin aspart U-100 100 unit/mL 10 sliding scale dose SQ TIDWMEAL 12/02/23 12/31/23 History (3 mL) subcutaneous pen (Novolog Diabetes FlexPen U-100 Insulin aspart) insulin detemir U-100 100 unit/mL 50 unit SQ HS Diabetes 12/02/23 12/30/23 History (3 mL) subcutaneous pen (Levemir FlexPen) magnesium oxide 400 mg PO DAILY Supplement 12/02/23 12/30/23 History nitroglycerin 0.4 mg sublingual 0.4 mg sublingual Q5MINP PRN Chest 12/02/23 12/30/23 History tablet Pain fluticasone fur. 100 mcg-umeclid 1 inh inhalation DAILY 30 days #1 12/05/23 12/31/23 Rx 62.5 mcg-vilant 25 mcg ea inhalat.powder (Trelegy Ellipta) New Prescriptions to Start Prescriptions: Allergies Allergy/AdvReac Type Severity Reaction Status Date / Time Cephalosporins Allergy Unknown Verified 12/30/23 12:02 allergy reaction meperidine Allergy Unknown Verified 12/30/23 12:02 allergy reaction NSAIDS (Non-Steroidal Allergy Unknown Verified 12/30/23 12:02 Anti-Inflamma allergy reaction pregabalin Allergy Verified 12/30/23 12:02 Sulfa (Sulfonamide Allergy Unknown Verified 12/30/23 12:02 Antibiotics) allergy reaction sumatriptan Allergy Verified 12/30/23 12:02 tizanidine Allergy Verified 12/30/23 12:02 enoxaparin [From Lovenox] AdvReac Unknown Verified 12/30/23 12:02 allergy reaction nalbuphine AdvReac Unknown Verified 12/30/23 12:02 allergy reaction promethazine AdvReac Unknown Verified 12/30/23 12:02 allergy reaction Assessment and Plan *Assessment and plan (1) Type 2 [place] (myocardial infarction): Status: Acute Category: Medical Code(s): I21.A1 - Myocardial infarction type 2 (2) Acute gastroenteritis: Status: Acute Category: Medical Code(s): K52.9 - Noninfective gastroenteritis and colitis, unspecified (3) CAD (coronary artery disease): Status: Acute Category: Medical Code(s): I25.10 - Atherosclerotic heart disease of [place] coronary artery without angina pectoris (4) Fibrosis of lung: Status: Acute Category: Medical Code(s): J84.10 - Pulmonary fibrosis, unspecified (5) Lupus disease of lung: Status: Acute Category: Medical Code(s): M32.13 - Lung involvement in systemic lupus erythematosus Plan MV-CAD s/p PCI 11/2023 -Patient's symptoms here are not anginal -Troponin trending up-0.06, 0.09, 0.15 in setting of acute gastroenteritis and chronic hypoxic respiratory failure -EKG-sinus rhythm without ischemic changes -Patient reports compliance with DAPT, beta-cynthia, statin -Will check 2D echo for wall motion changes Acute gastroenteritis -Patient presented with acute onset nausea vomiting -States symptoms are improving -Further workup per primary service Chronic interstitial lung disease -Present >20 years, on baseline home O2 -severe wheezing noted on exam (baselin per pt) -defer plans to Pulmonology Hx of DVT, Lupus, IVC Filter -not on OAC due to hx of GI bleeding -will check CTA here, consider VQ scan as outpatient (will check for PHtn on ECHO today) Obese, BMI 33 - continue lifestyle management - consider OP GLP-1 Hx of GI Bleeding, Anemia - stable here on DAPT CV Summary 12/30: Patient has significant baseline chronic medical problems which need further management. She presented for evaluation of chest pain which appears likely to be GI. Her rising serial troponin is noted. 2D ECHO repeated and shows no wall motion changes and normal EF. Troponin likely bumped secondary to acute gastroenteritis and acute on chronic hypoxic resp failure. CTA shows no PE but has dilated pulmonary artery. Will arrange outpatient VQ scan to evaluation for CTEPH. We will sign off for this admission. She can f/u with us in office 1-2 weeks post discharge.
[2023-12-31] MEDS: IPRATROPIUM/ALBUTEROL 3 ML NEB IH ×3 (13:55→22:35)
[2023-12-31] MEDS: METHYLPREDNISOLONE SOD SUCC 40MG VIAL 40 MG IV (14:20)
[2023-12-31 14:50] LABS: C-Reactive Protein 9.6 mg/L (0-4)
--- NOTE | 2023-12-31 15:34 | PC.NURSE ---
Patient complained of diarrhea, 3 instances noted. Diarrhea panel ordered per md. VS remained stable and patient remained on 2LNC. Lung sounds expiratory and inspiratory wheezing on ascultation. Patient stated she needed to be sent to rehab as she is too weak to take care of herself at home. Dr. Gong notified, pt/ot eval ordered. No complaints of chest pain
[2023-12-31 17:11] LABS: POC Glucose,Bedside 240 (70-110)
--- NOTE | 2023-12-31 17:29 | P.PN_ITS ---
Subjective *Date: 12/31/23 *Time: 17:29 Interval history: Patient shortness of breath little bit better this morning, on 2 L nasal cannula oxygen. Responding to diuresis. -700 cc since initiating diuretic. No nausea or vomiting. White cell count up this morning to 15,000, initiated on antibiotics overnight. Denies any chest pain Medical Exam Vital signs and Labs for Last 24 Hours: Vital Signs Temp Pulse Pulse Resp BP BP Pulse Ox 12/31/23 17:18 12/31/23 16:00 98.4 F 72 22 138/73 93 L 12/31/23 16:00 100 H 12/31/23 15:00 12/31/23 13:58 82 12/31/23 13:58 82 12/31/23 13:05 12/31/23 12:00 70 12/31/23 11:47 98.8 F 78 20 129/72 96 12/31/23 11:05 12/31/23 09:30 12/31/23 08:20 106 H 22 129/79 94 L 12/31/23 08:00 90 12/31/23 08:00 87 22 132/105 H 12/31/23 08:00 12/31/23 07:13 98.8 F 103 H 24 141/90 H 95 12/31/23 06:52 12/31/23 04:59 12/31/23 04:00 100 H 12/31/23 04:00 98.7 F 90 16 131/78 97 12/31/23 03:00 12/31/23 01:00 12/31/23 00:00 80 12/31/23 00:00 98.2 F 83 16 134/76 93 L 12/30/23 23:00 12/30/23 21:55 94 L 12/30/23 21:00 12/30/23 20:00 100 H 12/30/23 20:00 12/30/23 20:00 98.3 F 106 H 19 101/65 L 95 12/30/23 19:28 98.5 F 97 H 16 113/94 H 12/30/23 19:25 90 12/30/23 19:00 12/30/23 18:32 97 H 18 113/94 H 96 12/30/23 17:31 84 13 142/99 H 97 O2 Del Method O2 Flow Rate 12/31/23 17:18 Nasal Cannula 2 12/31/23 16:00 Nasal Cannula 2 12/31/23 16:00 12/31/23 15:00 Room Air 12/31/23 13:58 12/31/23 13:58 12/31/23 13:05 Nasal Cannula 2 12/31/23 12:00 12/31/23 11:47 Nasal Cannula 2 12/31/23 11:05 Nasal Cannula 2 12/31/23 09:30 Nasal Cannula 2 12/31/23 08:20 Nasal Cannula 2 12/31/23 08:00 12/31/23 08:00 12/31/23 08:00 Nasal Cannula 2 12/31/23 07:13 Nasal Cannula 2 12/31/23 06:52 Nasal Cannula 2 12/31/23 04:59 Nasal Cannula 2 12/31/23 04:00 12/31/23 04:00 Nasal Cannula 2 12/31/23 03:00 Nasal Cannula 2 12/31/23 01:00 Nasal Cannula 2 12/31/23 00:00 12/31/23 00:00 Nasal Cannula 2 12/30/23 23:00 Nasal Cannula 2 12/30/23 21:55 Nasal Cannula 2 12/30/23 21:00 Nasal Cannula 2 12/30/23 20:00 12/30/23 20:00 Nasal Cannula 2 12/30/23 20:00 Nasal Cannula 2 12/30/23 19:28 Room Air 12/30/23 19:25 12/30/23 19:00 Nasal Cannula 2 12/30/23 18:32 12/30/23 17:31 Intake and Output 12/31/23 12/31/23 12/31/23 07:59 15:59 23:59 Intake Total 0 / 500 350 / 500 150 / 500 Output Total 1075 / 1775 300 / 1775 400 / 1775 Balance -1075 / -1275 50 / -1275 -250 / -1275 Intake: Intake, Oral Amount 0 / 350 350 / 350 Intake, Total IV Amount 150 / 150 Levofloxacin/D5w 750 mg/150 ml 150 / 150 750 mg In 150 ml @ 100 mls/hr IV Q24H [facility] Rx#:[id number] Output: Output, Urine Amount 1075 / 1775 300 / 1775 400 / 1775 Other: Number of Unmeasured Voids 0 1 1 Number of Bowel Movements 1 1 Weight 95.3 kg Patient Weight 12/31/23 23:59 Weight 95.3 kg Laboratory Results - last 24 hr 12/30/23 18:15: Troponin I 0.09 H 12/30/23 19:42: POC Glucose 117 H 12/30/23 20:30: Troponin I 0.12 H 12/30/23 20:30: Troponin I Cancelled, TSH 1.50, Thyroxine (T4) 8.1 12/30/23 23:40: Troponin I 0.15 H 12/31/23 05:04: POC Glucose 167 H 12/31/23 06:59: WBC 15.5 H, RBC 4.27, Hgb 13.5, Hct 44.6, MCV 104.5 H, MCH 31.6 H, MCHC 30.2 L, RDW 15.7, Plt Count 359, MPV 9.2, Neut % (Auto) 64.7, Lymph % (Auto) 27.0, [place] % (Auto) 6.4, Eos % (Auto) 1.2, Baso % (Auto) 0.7, Neut # (Auto) 10.0 H, Lymph # (Auto) 4.2, [place] # (Auto) 1.0, Eos # (Auto) 0.2, Baso # (Auto) 0.1, Total Counted 100, Neutrophils % (Manual) 60, Lymphocytes % (Manual) 30, Monocytes % (Manual) 10 H, Nucleated RBCs 3, Platelet Estimate Normal, Macrocytosis 1+, Sodium 137, Potassium 3.2 L D, Chloride 91 L, Carbon Dioxide 40 H, Anion Gap 9.2, BUN 15, Creatinine 1.00 D, Estimated Creat Clear 83, Estimated GFR 55 L, Est GFR ( Amer) 67 D, Glucose 147 H D, Calcium 9.2 12/31/23 11:10: POC Glucose 171 H 12/31/23 13:45: C-Reactive Protein 9.6 H 12/31/23 16:11: POC Glucose 240 H I & O for Labs for Last 24 Hours: Intake & Output 12/28/23 12/29/23 12/30/23 12/31/23 23:59 23:59 23:59 23:59 Intake Total 350 / 350 500 / 500 Output Total 0 / 0 1775 / 1775 Balance 350 / 350 -1275 / -1275 Weight 93.395 kg 95.3 kg Constitutional: Present no acute distress, obese and chronically ill appearing Head: Present atraumatic and normocephalic ENT: Present normal exam Neck: Present normal inspection Respiratory: Present wheezes, crackles and normal respiratory effort; Absent rhonchi Cardiac: Present Reg Rate and Rhythm GI: Present soft and normal bowel sounds; Absent distention or tenderness Extremities: Present normal inspection; Absent full ROM Comment:: Wrists and shoulders tender to palpation Skin: Present intact; Absent erythema Neuro: Present Grossly Intact, alert, awake, oriented x 3 and moves all extremities Assessment and Plan *Assessment and plan (1) Non-ST elevation [place] (NSTEMI): Status: Acute Category: Medical Code(s): I21.4 - Non-ST elevation (NSTEMI) myocardial infarction (2) CHF (congestive heart failure): Status: Acute Category: Medical Code(s): I50.9 - Heart failure, unspecified (3) CAD (coronary artery disease): Status: Acute Category: Medical Code(s): I25.10 - Atherosclerotic heart disease of [place] coronary artery without angina pectoris (4) Diabetes mellitus type 2 in obese: Status: Chronic Category: Medical Code(s): E11.69 - Type 2 diabetes mellitus with other specified complication; E66.9 - Obe sity, unspecified (5) COPD (chronic obstructive pulmonary disease): Status: Chronic Category: Medical Code(s): J44.9 - Chronic obstructive pulmonary disease, unspecified (6) Fibrosis of lung: Status: Acute Category: Medical Code(s): J84.10 - Pulmonary fibrosis, unspecified (7) Lupus disease of lung: Status: Acute Category: Medical Code(s): M32.13 - Lung involvement in systemic lupus erythematosus (8) HTN (hypertension): Status: Chronic Category: Medical Code(s): I10 - Essential (primary) hypertension (9) HLD (hyperlipidemia): Status: Acute Category: Medical Code(s): E78.5 - Hyperlipidemia, unspecified (10) Thyroid disease: Status: Chronic Category: Medical Code(s): E07.9 - Disorder of thyroid, unspecified (11) Chronic pain syndrome: Status: Acute Category: Medical Code(s): G89.4 - Chronic pain syndrome (12) GERD (gastroesophageal reflux disease): Status: Acute Category: Medical Code(s): K21.9 - Gastro-esophageal reflux disease without esophagitis (13) Obesity: Status: Acute Category: Medical Code(s): E66.9 - Obesity, unspecified Plan 68-year-old female presented to [facility] ED via ems for c/o chest pain. PMHX of CAD status post recent stenting, type 2 diabetes, hypertension, chronic pain, fibrosis of lungs, COPD on 2 L nasal cannula, obesity, hypothyroidism, and CKD. The pt states that 24 hours ago she was feeling nausea and started vomiting. She states chest pain started at 7 a.m. She took two nitro's without relief and called EMS. She was given another nitro and 324 of ASA in route to the hospital. In the ED she was given morphine and oxycodone for pain. Upon admission the pt states the morphine relieved her pain. She currently is only c/o bilateral shoulder pain and believes she has frozen shoulder. She is alert and oriented. Her ED workup is positive for a leukocytosis of 14.1, BNP of 1730, and troponins of 0.02, 0.06, and 0.09. The ED physician consulted the hospitalist team for further medical management. I admitted the pt to the medical floor. She states that she uses bumex at home sometimes when she feels like she is fluid overloaded. Admitted last month, she received treatment with IV Levaquin and steroids. She also had a [facility] that resulted it receiving 1 stent to the LAD. U jose luis exam she has bilateral wheezing. She denies fevers. Does not appear ill. Her oxygen requirements are baseline for her at 2L. Pulmonology and cardiology consulted to assist with care. Continue to monitor overnight. Problems addressed as follows: NSTEMI CHF CAD -continue aspirin 81 mg and plavix 75mg -Cardiology consulted, appreciate their recommendations. Discussed case, do not feel her symptoms are anginal. Troponin marginally elevated, peaked at 0.15. Continue dual antiplatelet therapy, beta-cynthia, statin. -Limited echo pending -BNP of 1730 -Diuresis with IV lasix. Strict I/O. -PCV C, CMP, magnesium ordered for the morning DM: A1c 7.6 last month. Continue sliding scale insulin with fingersticks ACHS COPD FIBROSIS OF LUNG LUPUS DISEASE OF LUNG -Leukocytosis of 15.5 on morning labs. Monitor for improvement with antibiotics -Pulmonology consulted, appreciate their recommendations. Currently on baseline oxygen of 2 L, continue for goal sat greater 90%. -Discussed case with pulmonology, recommend continued admission for antibiotics and steroids. Anticipate discharge in the next day or 2. -Continue DuoNebs q4 hours along with Pulmicort every 12 scheduled - Methylprednisolone 40 mg IV daily - Continue levofloxacin. - SOREN, CRP, nasal MRSA PCR pending HTN -continue amlodipine 2.5mg, bisoprolol 2.5 mg HLD -continue liptor 40mg THYROID DISEASE -continue levothyroxine 50 mcg. Tsh and t4 pending CHRONIC PAIN SYNDROME -continue bupropion 150 mg, lexapro 20 mg, prozac 20mg, gabapentin 800 mg QID, and methadone 10 mg QID PRN GERD -continue protonix 40mg OBESITY: complicates all aspects of care FULL CODE Regular diet DVT: HEPARIN sq
[2023-12-31] MEDS: METHADONE 10MG TABLET 10 MG PO (18:00)
[2023-12-31] MEDS: BUDESONIDE 0.5MG/2ML NEB 0.5 MG IH (18:20)
[2023-12-31] MEDS: ACETAMINOPHEN 325MG TAB 650 MG PO (19:40)
[2023-12-31 20:28] LABS: POC Glucose,Bedside 326 (70-110)
[2023-12-31] MEDS: ATORVASTATIN 40MG TABLET 40 MG PO (20:28)
[2024-01-01] VITALS (7 sets, daily range): BP systolic 125–152; BP diastolic 65–88; PULSE 70–89; RESP 18–20; TEMP 36.8–37; O2SAT 94–98; BMI 32.9
[2024-01-01] MEDS: METHADONE 10MG TABLET 10 MG PO ×3 (00:04→11:50)
[2024-01-01] MEDS: GABAPENTIN 800MG TABLET 800 MG PO ×3 (00:04→11:50)
[2024-01-01] MEDS: ACETAMINOPHEN 325MG TAB 650 MG PO ×2 (01:54→07:58)
[2024-01-01] MEDS: humaLOG 100 UNITS/ML 3ML VIAL (SSI) SQ ×2 (05:35→11:28)
[2024-01-01 05:37] LABS: POC Glucose,Bedside 228 (70-110)
--- NOTE | 2024-01-01 05:38 | PC.NURSE ---
Patient had not slept this shift. Has been up watching TV most of the night. Has had many snacks and pop through the shift. Patient has been up to the bathroom multiple times with no assistance other than stand by. Patient remains on 3L NC with no other complaints.
[2024-01-01] MEDS: IPRATROPIUM/ALBUTEROL 3 ML NEB IH ×2 (06:15→10:45)
[2024-01-01] MEDS: BUDESONIDE 0.5MG/2ML NEB 0.5 MG IH (06:15)
[2024-01-01] MEDS: LEVOTHYROXINE 50MCG (0.05MG) TAB 50 MCG PO (06:23)
[2024-01-01 07:13] LABS: Basophils # 0.1 K/mm3 (0-0.2); Basophils % 0.6 % (0.1-2.0); Eosinophils # 0.1 K/mm3 (0.0-0.4); Eosinophils % 0.3 % (0.1-12.0); Hematocrit 39.8 % (37.0-47.0); Lymphocytes # 4.1 K/mm3 (0.7-4.5); Lymphocytes % 24.3 % (10-50); Mean Corpuscular HGB Conc 30.4 g/dL (31.8-35.4); Mean Corpuscular Volume 105.2 fl (81-99); Mean Platelet Volume 9.9 fl (7.4-10.4); Monocytes # 1.3 K/mm3 (0.1-1.0); Monocytes % 7.9 % (1.7-9.3); Neutrophils # 11.3 K/mm3 (1.8-7.8); Neutrophils % 66.9 % (37.0-80.0); Platelet Count 360 K/mm3 (142-424); Red Blood Count 3.79 M/mm3 (4.20-5.40); Red Cell Distribution Width 15.6 % (11.5-17.5); White Blood Count 16.8 K/mm3 (4.8-10.8)
[2024-01-01 07:17] LABS: MANUAL DIFFERENTIAL MANUAL DIFFERENTIAL (MANUAL DIFF)
[2024-01-01 07:23] LABS: Albumin Level 3.6 g/dl (3.5-5.0); Albumin/Globulin Ratio 1.2 (1.1-1.8); Alkaline Phosphatase 86 U/L (38-126); Anion Gap 7.3 mEq/L (5-15); Bilirubin,Total 0.2 mg/dl (0.2-1.3); Blood Urea Nitrogen 14 mg/dl (7-17); Calcium 9.3 mg/dl (8.4-10.2); Carbon Dioxide 37 mmol/L (22.0-30.0); Chloride 93 mmol/L (98-107); Creatinine Clearance Estimated 83 mL/min (50-200); Estimated Glomerular Filt Rate 55 ml/min (>60); GFR (African American) 67 ML/MIN (>60); Globulin 2.9 g/dL (1.3-3.2); Glucose 238 mg/dl (74-100); Magnesium 1.8 mg/dl (1.6-2.3); Potassium 3.3 mmoL/L (3.5-5.1); Sodium 134 mmol/L (136-145); Total Protein,Serum 6.5 g/dl (6.3-8.2)
[2024-01-01 07:54] LABS: Alanine Aminotransferase 18 U/L (12-78); Aspartate Amino Transferase 26 U/L (14-36)
[2024-01-01] MEDS: POTASSIUM CHLORIDE 20MEQ TAB 40 MEQ PO (07:57)
[2024-01-01] MEDS: CLOPIDOGREL 75MG TAB 75 MG PO (07:57)
[2024-01-01] MEDS: buPROPion HCl SR 150MG TAB 150 MG PO (07:58)
[2024-01-01] MEDS: FLUOXETINE 20MG CAPSULE 20 MG PO (07:58)
[2024-01-01] MEDS: CITALOPRAM 40MG TABLET 40 MG PO (07:58)
[2024-01-01] MEDS: EMPAGLIFLOZIN 10MG TABLET 10 MG PO (07:58)
[2024-01-01] MEDS: AMLODIPINE 2.5MG TABLET 2.5 MG PO (07:58)
[2024-01-01] MEDS: ASPIRIN 81MG CHEWABLE TABLET 81 MG PO (07:58)
[2024-01-01] MEDS: BISOPROLOL 5MG TABLET 2.5 MG PO (07:59)
[2024-01-01] MEDS: LEVOFLOXACIN/D5W 750 MG/150 ML 750 MG/150 ML PIGGYBACK 100 MG IV (07:59)
[2024-01-01] MEDS: HEPARIN SODIUM 5,000 UNIT/ML VIAL 5000 UNIT SQ (07:59)
[2024-01-01] MEDS: METHYLPREDNISOLONE SOD SUCC 40MG VIAL 40 MG IV (07:59)
[2024-01-01] MEDS: PANTOPRAZOLE 40MG TABLET 40 MG PO (07:59)
[2024-01-01 08:20] LABS: Lymphocytes % 29 % (10-50); Macrocytosis 1+; Monocytes % 4 % (2-9); Neutrophils % 67 % (42-76); Platelet Estimate Normal; Total Cells Counted 100
[2024-01-01 08:37] LABS: Hemoglobin 12.1 g/dL (12.2-16.2)
--- NOTE | 2024-01-01 10:08 | HMH.OTEV ---
OT Inpatient Evaluation Rehab OT IP Evaluation Start: 12/31/23 14:57 Freq: ONCE Status: Active Protocol: Document 01/01/24 10:04 DAVID (Rec: 01/01/24 10:08 DAVID [id number]) Rehab OT IP Assessment Subjective History 68-year-old female presented to [facility] ED via ems for c/o chest pain. PMHX of CAD status post recent stenting, type 2 diabetes, hypertension, chronic pain, fibrosis of lungs, COPD on 2 L nasal cannula, obesity, hypothyroidism, and CKD. The pt states that 24 hours ago she was feeling nausea and started vomiting. She states chest pain started at 7 a.m. She took two nitro's without relief and called EMS. She was given another nitro and 324 of ASA in route to the hospital. In the ED she was given morphine and oxycodone for pain. Upon admission the pt states the morphine relieved her pain. She currently is only c/o bilateral shoulder pain and believes she has frozen shoulder. She is alert and oriented. Her ED workup is positive for a leukocytosis of 14.1, BNP of 1730, and troponins of 0.02, 0.06, and 0 .09. The ED physician consulted the hospitalist team for further medical management. I admitted the pt to the medical floor. She states that she uses bumex at home sometimes when she feels like she is fluid overloaded. Within the last month she was admitted to the hospital for a COPE. She received treatment with IV Levaquin and steroids. She also had a C that resulted it receiving 1 stent to the LAD. Upon exam she has bilateral wheezing. She denies fevers. Does not appear ill. Her oxygen requirements are baseline for her at 2L. Her chest xray reveals pulmonary vascular congestion and chronic bronchial wall thickening with the right being worse the left. She will have a Cardiology consult placed and Pulmonary consult placed. She will be given IV lasix and resume her home pain medications. I can get up. Patient lives alone with family near by. Patient uses furniture around her home to ambulate. Patient stated to have pain in B shld and unable to use a RW and cane. Hx of falling at home. Independent with ADLs and fx'l mobility, however requires exteded time to complete them. Subjective Instructed Patient on proper hand and foot placement to complete bed mobility from supine->sit @ EOB->stand with usage of Min A x2. Patient demonstrated fair+ dynamic standing balance during fx'l mobility. Patient required Mod A to dylon socks during initial evalaution. Patient has requested skilled rehab prior to returning home. Objective Patient Orientation Person,Place,Name,Age,Birthday ,Year Right Upper Extremity Gross ROM WFL Left Upper Extremity Gross ROM WFL Bed Mobility bed mobility - supine/sit Assist Level Supervision/Stand by Transfer Training Sit/Stand/Pivot Transfer Assist Level Minimal x 2 (25% assist) Chair Transfer Ability Minimal x 2 (25% assist) Chair Transfer Technique Sit to/from Ambulatory Rehab OT IP prob,goals,plan Problems Date of Evaluation: 01/01/24 OT IP Problems Bed Mobility,Transfers,Balance ,Self care,Safety Rehab Potential Rehab Potential Good Equipment Needs Assistive Devices Rolling / Wheeled Walker Plan OT intervention Plan Bed Mobility,Transfers,Balance ,Self care,Safety,Therapeutic Exercise OT Plan Frequency Daily Duration LOS Discharge Goals Bed Mobility Ability Standby Assistance Sit to Stand Chair Transfer Ability Supervision/Stand by Chair Transfer Ability Supervision/Stand by Chair Transfer Technique Sit to/from Ambulatory Chair Transfer Assistive Devices Standard Walker Discharge Plan OT Discharge Plan Recommend placement at this time. Patient stated to have a hx of falling at home and does not feel safe to return home alone and does not want to return home with family. Patient to continue to be seen here at [facility] for IP OT services. Eval Complexity Eval Charge Codes 89086 - Low Complexity PHYSICIAN CERTIFICATION: I certify the specified therapy services for Maricel Cooney are required, authorized, and reviewed every 30 days.
--- NOTE | 2024-01-01 10:12 | HMH.PTEV ---
Physical Therapy Evaluation Rehab PT IP Evaluation Start: 12/31/23 14:56 Freq: ONCE Status: Active Protocol: Document 01/01/24 10:06 LORA (Rec: 01/01/24 10:12 LORA [id number]) Subjective/History History History Per H&P: 68-year-old female presented to [facility] ED via ems for c/o chest pain. PMHX of CAD status post recent stenting, type 2 diabetes, hypertension, chronic pain, fibrosis of lungs, COPD on 2 L nasal cannula, obesity, hypothyroidism, and CKD. The pt states that 24 hours ago she was feeling nausea and started vomiting. She states chest pain started at 7 a.m. She took two nitro's without relief and called EMS. She was given another nitro and 324 of ASA in route to the hospital. In the ED she was given morphine and oxycodone for pain. Upon admission the pt states the morphine relieved her pain. She currently is only c/o bilateral shoulder pain and believes she has frozen shoulder. She is alert and oriented. Her ED workup is positive for a leukocytosis of 14.1, BNP of 1730, and troponins of 0.02, 0.06, and 0 .09... Subjective Subjective PLOF per pt report: IND with mobility without AD use. Frequent falls. Lives alone with no LISETH single story home. Not driving prior to admission. New diagnosis of cancer in past 12 No months? Rehab PT IP Eval Objective Appearance Patient Behavior Appropriate,Cooperative Patient Orientation Person,Place,Birthday, Situation Difficulty following instructions none Speech Pattern Clear Ambulation Patient Able to Ambulate Yes Ambulation Observation IP General Gait Pattern Observation Wide Based Gait Ambulation Distance (feet) 10 Ambulation Assistive Device None Ambulation Ability Minimal x 2 (25% assist) Balance Ability to Arise Able, uses arms to help Sitting Balance Steady, safe Standing Balance Steady, wide stance Transfers Bed Transfer Ability Supervision/Stand by Sit to Stand Bed Transfer Ability Contact Guard/Hand Hold Rehab PT IP prob,goals,plan Problems Date of Evaluation: 01/01/24 PT IP Problems Transfers,Gait,Balance,Safety Rehab Potential Rehab Potential Good Equipment Needs Assistive Devices Rolling / Wheeled Walker Plan PT Intervention Plan Transfers,Gait,Balance,Safety, Therapeutic Exercise Other Intervention Plan 1-2 times PT Plan Frequency Daily Duration LOS Discharge Goals Bed Transfer Ability Independent Sit to Stand Chair Transfer Ability Supervision/Stand by Ambulation Assistive Device Rolling Walker Ambulation Distance (feet) 20 Discharge Plan PT Discharge Plan Pt not safe to return home alone at this time d/t current level of functional mobility and hx of frequent falls. PT recommending short-term rehabilitation stay upon d/c from [facility]. Pt demo'd ambulation 10' with Min A x 2 without AD . Pt reports she has a RW but her shoulder pain limits her from using it. Pt with balance deficits requiring intermittent assistance to steady when ambulating. Pt would benefit from skilled PT while at [facility] to prevent further functional decline and maximize safety with mobility . Eval Complexity Eval Charge Codes 36923 - High Complexity PHYSICIAN CERTIFICATION: I certify the specified therapy services for Maricel Cooney are required, authorized, and reviewed every 30 days.
[2024-01-01 10:38] LABS: POC Glucose,Bedside 289 (70-110)
--- NOTE | 2024-01-01 12:00 | P.DS_ITS ---
General Admission date:: 12/30/23 Discharge date: 01/01/24 HPI HPI HPI: 68-year-old female presented to [facility] ED via ems for c/o chest pain. PMHX of CAD status post recent stenting, type 2 diabetes, hypertension, chronic pain, fibrosis of lungs, COPD on 2 L nasal cannula, obesity, hypothyroidism, and CKD. The pt states that 24 hours ago she was feeling nausea and started vomiting. She states chest pain started at 7 a.m. She took two nitro's without relief and called EMS. She was given another nitro and 324 of ASA in route to the hospital. In the ED she was given morphine and oxycodone for pain. Upon admission the pt states the morphine relieved her pain. She currently is only c/o bilateral shoulder pain and believes she has frozen shoulder. She is alert and oriented. Her ED workup is positive for a leukocytosis of 14.1, BNP of 1730, and troponins of 0.02, 0.06, and 0.09. The ED physician consulted the hospitalist team for further medical management. I admitted the pt to the medical floor. She states that she uses bumex at home sometimes when she feels like she is fluid overloaded. Within the last month she was admitted to the hospital for a COPE. She received treatment with IV Levaquin and steroids. She also had a [facility] that resulted it receiving 1 stent to the LAD. Upon exam she has bilateral wheezing. She denies fevers. Does not appear ill. Her oxygen requirements are baseline for her at 2L. Her chest xray reveals pulmonary vascular congestion and chronic bronchial wall thickening with the right being worse the left. She will have a Cardiology consult placed and Pulmonary consult placed. She will be given IV lasix and resume her home pain medications. Hospital Course Hospital Course Hospital Course: 68-year-old female presented to [facility] ED via ems for c/o chest pain. PMHX of CAD status post recent stenting, type 2 diabetes, hypertension, chronic pain, fibrosis of lungs, COPD on 2 L nasal cannula, obesity, hypothyroidism, and CKD. The pt states that 24 hours ago she was feeling nausea and started vomiting. She states chest pain started at 7 a.m. She took two nitro's without relief and called EMS. She was given another nitro and 324 of ASA in route to the hospital. In the ED she was given morphine and oxycodone for pain. Upon admission the pt states the morphine relieved her pain. She currently is only c/o bilateral shoulder pain and believes she has frozen shoulder. She is alert and oriented. Her ED workup positive for leukocytosis with elevated BNP. Admitted to medicine for further management. Treated with diuretic and antibiotics. Stable oxygen requirement of 2 L. Completed 3 days of Levaquin. Pulmonology consulted and assisted with care along with cardiology. Patient medically stable to discharge home to continue treatment as an outpatient. Stable on 2 L oxygen. Problems addressed as follows: NSTEMI CHF CAD -Cardiology consulted. Discussed case, at this time her symptoms are not consistent with angina. Troponin marginally elevated likely secondary to her respiratory distress and type II NSTEMI. Limited echo performed, stable findings. BNP elevated. Diuresed during admission. Continue aspirin 81 mg and plavix 75mg. Additionally recommend continuing home regimen for blood pressure and elevated cholesterol, see med rec for full details. DM: A1c 7.6 last month. Continue sliding scale insulin with fingersticks ACHS. Resume home regimen at discharge. COPD FIBROSIS OF LUNG LUPUS DISEASE OF LUNG -Leukocytosis present during admission. Remained afebrile and on stable oxygen requirement however. Pulmonology was consulted and assisted with care. Currently on baseline oxygen for sats greater 90%. Pulmonology recommended completing 3 days of levofloxacin, completed with morning dose on day of discharge. Will complete 5 days of steroids with oral prednisone. Continue home inhaler regimen. Follow-up with pulmonology within the next week. SOREN still pending at discharge. CRP of 9 on day of discharge. Stable lung disease. Further management as an outpatient. HTN -continue amlodipine 2.5mg, bisoprolol 2.5 mg HLD -continue liptor 40mg THYROID DISEASE -continue levothyroxine 50 mcg. Tsh and t4 pending CHRONIC PAIN SYNDROME -continue bupropion 150 mg, lexapro 20 mg, prozac 20mg, gabapentin 800 mg QID, and methadone 10 mg QID PRN GERD -continue protonix 40mg Discussed placement options. As patient did not meet inpatient criteria, case management informed patient that placement would be an [id number] expense. P henry decided to go home with family as she is medically stable to discharge. Offered home health, stated she would work on getting home health on her own or via her PCP. Case management assisted with care during admission. Exam Data for Last 24 hours Vital signs and Labs for Last 24 Hours: Temp Pulse Resp BP Pulse Ox O2 Del Method O2 Flow Rate 98.3 F 70 19 147/86 H 98 Nasal Cannula 2 01/01/24 11:12 01/01/24 11:12 01/01/24 11:12 01/01/24 11:12 01/01/24 11:12 01/01/24 11:12 01/01/24 11:12 Laboratory Results - last 24 hr 12/31/23 13:45: C-Reactive Protein 9.6 H 12/31/23 16:11: POC Glucose 240 H 12/31/23 20:21: POC Glucose 326 H* 01/01/24 05:21: WBC 16.8 H, RBC 3.79 L, Hgb 12.1 L D, Hct 39.8, MCV 105.2 H, MCH 32.0 H, MCHC 30.4 L, RDW 15.6, Plt Count 360, MPV 9.9, Neut % (Auto) 66.9, Lymph % (Auto) 24.3, Edwards % (Auto) 7.9, Eos % (Auto) 0.3, Baso % (Auto) 0.6, Neut # (Auto) 11.3 H, Lymph # (Auto) 4.1, Edwards # (Auto) 1.3 H, Eos # (Auto) 0.1, Baso # (Auto) 0.1, Total Counted 100, Neutrophils % (Manual) 67, Lymphocytes % (Manual) 29, Monocytes % (Manual) 4, Platelet Estimate Normal, Macrocytosis 1+, Sodium 134 L, Potassium 3.3 L, Chloride 93 L, Carbon Dioxide 37 H, Anion Gap 7.3, BUN 14, Creatinine 1.00, Estimated Creat Clear 83, Estimated GFR 55 L, Est GFR ( Amer) 67, Glucose 238 H D, Calcium 9.3, Magnesium 1.8, Total Bilirubin 0.2, AST 26 D, ALT 18, Alkaline Phosphatase 86, Total Protein 6.5, Albumin 3.6, Globulin 2.9, Albumin/Globulin Ratio 1.2 01/01/24 05:30: POC Glucose 228 H 01/01/24 10:10: POC Glucose 289 H I & O for Last 24 hours: Intake & Output 12/29/23 12/30/23 12/31/23 01/01/24 23:59 23:59 23:59 23:59 Intake Total 350 / 350 944 / 1694 750 / 750 Output Total 0 / 0 1775 / 1775 1300 / 1300 Balance 350 / 350 -831 / -81 -550 / -550 Weight 93.395 kg 95.3 kg 95.209 kg Constitutional Constitutional: no acute distress, obese, chronically ill appearing and coope rative *Routine HEENT Exam Head: Present normocephalic Eye: Present EOMI and PERRL ENT: Present mucous membranes moist *Routine Neck Exam Neck: Present supple; Absent lymphadenopathy *Routine Respiratory Exam Respiratory: Present prolonged expiratory phase, wheezes (minimal, intervally improved) and normal respiratory effort; Absent rhonchi or crackles *Routine Cardiovascular Exam Cardiovascular: Present RRR *Routine Abdominal Exam Abdominal: Present soft and normoactive bowel sounds; Absent tenderness *Routine Rectal Exam Patient deferred: visual exam *Routine Exam Patient deferred: external exam *Routine Extremities Exam Extremities: Absent cyanosis, clubbing or edema Comments: diffuse TTP trigger points in Upper back, and arms *Routine Skin Exam Skin: Present warm; Absent rash *Routine Neurological Exam Neurological: Present alert, oriented X3 and moving all extremities; Absent altered mental status Results Data Completed and Pending Labs on day of discharge: Labs from last 24 hours 01/01/24 01/01/24 01/01/24 10:10 05:30 05:21 WBC 16.8 H RBC 3.79 L Hgb 12.1 L D Hct 39.8 MCV 105.2 H MCH 32.0 H MCHC 30.4 L RDW 15.6 Plt Count 360 MPV 9.9 Neut % (Auto) 66.9 Lymph % (Auto) 24.3 Edwards % (Auto) 7.9 Eos % (Auto) 0.3 Baso % (Auto) 0.6 Neut # (Auto) 11.3 H Lymph # (Auto) 4.1 Edwards # (Auto) 1.3 H Eos # (Auto) 0.1 Baso # (Auto) 0.1 Total Counted 100 Neutrophils % (Manual) 67 Lymphocytes % (Manual) 29 Monocytes % (Manual) 4 Platelet Estimate Normal Macrocytosis 1+ Sodium 134 L Potassium 3.3 L Chloride 93 L Carbon Dioxide 37 H Anion Gap 7.3 BUN 14 Creatinine 1.00 Estimated Creat Clear 83 Estimated GFR 55 L Est GFR ( Amer) 67 Glucose 238 H D POC Glucose 289 H 228 H Calcium 9.3 Magnesium 1.8 Total Bilirubin 0.2 AST 26 D ALT 18 Alkaline Phosphatase 86 C-Reactive Protein Total Protein 6.5 Albumin 3.6 Globulin 2.9 Albumin/Globulin Ratio 1.2 12/31/23 12/31/23 12/31/23 20:21 16:11 13:45 WBC RBC Hgb Hct MCV MCH MCHC RDW Plt Count MPV Neut % (Auto) Lymph % (Auto) Edwards % (Auto) Eos % (Auto) Baso % (Auto) Neut # (Auto) Lymph # (Auto) Edwards # (Auto) Eos # (Auto) Baso # (Auto) Total Counted Neutrophils % (Manual) Lymphocytes % (Manual) Monocytes % (Manual) Platelet Estimate Macrocytosis Sodium Potassium Chloride Carbon Dioxide Anion Gap BUN Creatinine Estimated Creat Clear Estimated GFR Est GFR ( Amer) Glucose POC Glucose 326 H* 240 H Calcium Magnesium Total Bilirubin AST ALT Alkaline Phosphatase C-Reactive Protein 9.6 H Total Protein Albumin Globulin Albumin/Globulin Ratio DS: Diagnosis Discharge Diagnosis (1) Non-ST elevation PA (NSTEMI): Status: Acute Code(s): I21.4 - Non-ST elevation (NSTEMI) myocardial infarction (2) CHF (congestive heart failure): Status: Acute Code(s): I50.9 - Heart failure, unspecified (3) CAD (coronary artery disease): Status: Acute Code(s): I25.10 - Atherosclerotic heart disease of solomon coronary artery without angina pectoris (4) Diabetes mellitus type 2 in obese: Status: Chronic Code(s): E11.69 - Type 2 diabetes mellitus with other specified complication; E66.9 - Obesity, unspecified (5) COPD (chronic obstructive pulmonary disease): Status: Chronic Code(s): J44.9 - Chronic obstructive pulmonary disease, unspecified (6) Fibrosis of lung: Status: Acute Code(s): J84.10 - Pulmonary fibrosis, unspecified (7) Lupus disease of lung: Status: Acute Code(s): M32.13 - Lung involvement in systemic lupus erythematosus (8) HTN (hypertension): Status: Chronic Code(s): I10 - Essential (primary) hypertension (9) HLD (hyperlipidemia): Status: Acute Code(s): E78.5 - Hyperlipidemia, unspecified (10) Thyroid disease: Status: Chronic Code(s): E07.9 - Disorder of thyroid, unspecified (11) Chronic pain syndrome: Status: Acute Code(s): G89.4 - Chronic pain syndrome (12) GERD (gastroesophageal reflux disease): Status: Acute Code(s): K21.9 - Gastro-esophageal reflux disease without esophagitis (13) Obesity: Status: Acute Code(s): E66.9 - Obesity, unspecified Meds Home Medications and Allergies Home Medications Medication Instructions Recorded Confirmed Type aspirin 81 mg chewable tablet 81 mg PO DAILY 11/27/19 12/30/23 History gabapentin 800 mg tablet 800 mg PO QID fibromyalgia pain 11/27/19 12/30/23 History levothyroxine 50 mcg tablet 50 mcg PO DAILY thyroid 11/27/19 12/30/23 History methadone 10 mg tablet 10 mg PO 0600,1200,1800,2359 11/27/19 12/30/23 History fibromyalgia pain ondansetron HCl 8 mg tablet 8 mg PO TIDP PRN Nausea 11/27/19 12/30/23 History pantoprazole 40 mg tablet,delayed 40 mg PO DAILY 11/28/19 12/31/23 History release amlodipine 2.5 mg tablet 2.5 mg PO DAILY High Blood Pressure 07/07/22 12/30/23 History atorvastatin 40 mg tablet 40 mg PO HS High cholesterol 07/07/22 12/30/23 History bisoprolol fumarate 5 mg tablet 2.5 mg PO DAILY High Blood Pressure 07/07/22 12/30/23 History clopidogrel 75 mg tablet 75 mg PO DAILY 07/07/22 12/30/23 History empagliflozin 25 mg tablet 25 mg PO DAILY 07/07/22 12/30/23 History (Jardiance) albuterol sulfate 90 mcg/actuation 2 puff inhalation Q4HP PRN 12/02/23 12/30/23 History aerosol inhaler (Ventolin HFA) Shortness Of Breath bupropion HCl 150 mg 24 hr tablet, 150 mg PO DAILY 12/02/23 12/30/23 History extended release ergocalciferol (vitamin D2) 1,250 50,000 unit PO WEEKLY Supplement 12/02/23 12/30/23 History mcg (50,000 unit) capsule (Vitamin D2) escitalopram oxalate 20 mg tablet 20 mg PO DAILY 12/02/23 12/30/23 History fluticasone propionate 50 1 spray intranasal BID ALLERGIES 12/02/23 12/30/23 History mcg/actuation nasal spray,suspension guaifenesin 600 mg tablet, 600 mg PO Q12H PRN Cough 12/02/23 12/30/23 History extended release 12 hr insulin aspart U-100 100 unit/mL 10 sliding scale dose SQ TIDWMEAL 12/02/23 12/31/23 History (3 mL) subcutaneous pen (Novolog Diabetes FlexPen U-100 Insulin aspart) insulin detemir U-100 100 unit/mL 50 unit SQ HS Diabetes 12/02/23 12/30/23 History (3 mL) subcutaneous pen (Levemir FlexPen) magnesium oxide 400 mg PO DAILY Supplement 12/02/23 12/30/23 History nitroglycerin 0.4 mg sublingual 0.4 mg sublingual Q5MINP PRN Chest 12/02/23 History tablet Pain fluticasone fur. 100 mcg-umeclid 1 inh inhalation DAILY 30 days #1 12/05/23 12/31/23 Rx 62.5 mcg-vilant 25 mcg ea inhalat.powder (Trelegy Ellipta) potassium chloride 20 mEq 40 meq (2 x 20 mEq) PO BID 3 days 01/01/24 Rx tablet,extended #12 tabs release(part/cryst) (Klor-Con M) prednisone 20 mg tablet 40 mg (2 x 20 mg) PO DAILY 3 days 01/01/24 Rx #6 tabs New Prescriptions to Start Prescriptions: potassium chloride [Klor-Con M20] Sim Gong prednisone Sim Gong Allergies Allergy/AdvReac Type Severity Reaction Status Date / Time Cephalosporins Allergy Unknown Verified 12/30/23 12:02 allergy reaction meperidine Allergy Unknown Verified 12/30/23 12:02 allergy reaction NSAIDS (Non-Steroidal Allergy Unknown Verified 12/30/23 12:02 Anti-Inflamma allergy reaction pregabalin Allergy Verified 12/30/23 12:02 Sulfa (Sulfonamide Allergy Unknown Verified 12/30/23 12:02 Antibiotics) allergy reaction sumatriptan Allergy Verified 12/30/23 12:02 tizanidine Allergy Verified 12/30/23 12:02 enoxaparin [From Lovenox] AdvReac Unknown Verified 12/30/23 12:02 allergy reaction nalbuphine AdvReac Unknown Verified 12/30/23 12:02 allergy reaction promethazine AdvReac Unknown Verified 12/30/23 12:02 allergy reaction Discharge Plan Disposition Patient Disposition: Home Health Service Condition: Fair Discharge Order Discharge Orders: Discharge Order (Routine); Ordered 01/01/24 Ordered By: Sim Gong Follow up Plan Follow up with: Kyle Wharton MD [Physician] - 01/09/24 1:00 pm (1 week) Nazario Michael MD [Staff Physician] - 01/09/24 2:00 pm Prescriptions/Medication Reconciliation: New potassium chloride [Klor-Con M20] 20 mEq Tablet,Er Particles/Crystals 40 meq PO BID 3 Days Qty: 12 0RF prednisone 20 mg tablet 40 mg PO DAILY 3 Days Qty: 6 0RF Continued ondansetron HCl 8 MG tablet 8 mg PO TIDP PRN (Reason: Nausea) methadone 10 MG tablet 10 mg PO 0600,1200,1800,2359 gabapentin 800 MG tablet 800 mg PO QID Patient Comments: TAKE 1 TABLET 4 TIMES EACH DAY levothyroxine 50 MCG tablet 50 mcg PO DAILY aspirin 81 MG tablet,chewable 81 mg PO DAILY pantoprazole 40 MG tablet,delayed release (DR/EC) 40 mg PO DAILY atorvastatin 40 mg tablet 40 mg PO HS clopidogrel 75 mg tablet 75 mg PO DAILY bisoprolol fumarate 5 mg tablet 2.5 mg PO DAILY Patient Comments: take one-half tablet (2.5 mg) by oral route once daily Jardiance 25 mg tablet 25 mg PO DAILY Patient Comments: take 1 tablet (25 mg) by oral route once daily in the morning amlodipine 2.5 mg tablet 2.5 mg PO DAILY Patient Comments: take 1 tablet (2.5 mg) by oral route once daily escitalopram oxalate 20 mg tablet 20 mg PO DAILY Patient Comments: TAKE ONE TABLET BY MOUTH DAILY insulin aspart U-100 [Novolog FlexPen U-100 Insulin] 100 unit/mL (3 mL) insulin pen 10 sliding scale dose SQ TIDWMEAL Patient Comments: INJECT 10 UNITS UNDER THE SKIN THREE TIMES DAILY WITH MEALS bupropion HCl 150 mg tablet extended release 24 hr 150 mg PO DAILY Patient Comments: TAKE ONE TABLET BY MOUTH EVERY DAY ergocalciferol (vitamin D2) [Vitamin D2] 1,250 mcg (50,000 unit) capsule 50,000 unit PO WEEKLY Patient Comments: Take 1 capsule every week by oral route. fluticasone propionate 50 mcg/actuation [place],Suspension 1 spray INTRANASAL BID Rx Instructions: administer into each nostril guaifenesin 600 mg Tablet Extended Release 12hr 600 mg PO Q12H PRN (Reason: Cough) magnesium oxide 400 mg magnesium Tablet 400 mg PO DAILY Levemir FlexPen 100 unit/mL (3 mL) Insulin Pen 50 unit SQ HS nitroglycerin 0.4 mg tablet, sublingual 0.4 mg sublingual Q5MINP PRN (Reason: Chest Pain) Patient Comments: DISSOLVE 1 TABLET UNDER THE TONGUE EVERY 5 MINUTES NEEDED FOR CHEST PAIN. DO NOT EXCEED A TOTAL OF 3 DOSES IN 15 MINUTES. albuterol sulfate [Ventolin HFA] 90 mcg/actuation HFA aerosol inhaler 2 puff INHALATION Q4HP PRN (Reason: Shortness Of Breath) Patient Comments: Inhale 2 puffs every 4 hours by inhalation route. Trelegy Ellipta 100-62.5-25 mcg Blister With Device 1 inh inhalation DAILY 30 Days Qty: 1 0RF Problem Reconciliation Problems Reviewed?: Yes Patient Discharge Instructions ACTIVITY: Continue current activity DIET: continue same diet Patient Instructions: DI for Heart Failure, DI for Pneumonia -- Adult, DI for Chest Pain Providers Primary Care Provider: Glen Serna Admit Provider: Geoff Church Attending Provider: Geoff Church
--- NOTE | 2024-01-01 12:03 | SW/DCPLANNER ---
I spoke w/ this patient regarding discharge plans. PT/OT evaluated patient and recommended SNF level of care. I discussed discharge options w/ patient and placement regarding private pay. Patient is not interested in placement under private pay at this time. I also discussed the option of setting up home health services. Patient stated that she would rather return home and follow up w/ her PCP prior to agreeing to home health services. I will continue to follow up w/ this patient to assist w/ any needs. Patient will discharge home later today.
--- NOTE | 2024-01-01 12:38 | HMH.PHAINT1 ---
Pharmacy Intervention Comments: Discharge counseling was provided to patient. New medications counseled on were: -potassium chloride 40 meq twice daily -prednisone 40mg daily -Counseled patient on potential side effects of GI upset and insomnia to possibly take in the AM. Patient was familiar with the medications and verbalized understanding with no questions.
--- NOTE | 2024-01-02 13:47 | CARE MANAGER ---
Contacted patient related to hospital discharge. She states she is doing well. has her medications and is aware of her follow up appointments. Denies questions or concerns at this time. ILIANA Dill
[2024-01-05 12:27] LABS: Antinuclear Antibodies (ANA) Negative
== END 2024-01-01 12:50 | disposition home health service (06) ==
LOC: ER 15:18 → 2ND 18:15
PROVIDERS: Internal Medicine Adolescent Medicine; Internal Medicine Pulmonary Disease; Nurse Practitioner Critical Care Medicine; Admitting Provider Internal Medicine; Emergency Provider Emergency Medicine; PCP Internal Medicine; Visit Provider Internal Medicine
DX: I21.4 Non-ST elevation (NSTEMI) myocardial infarction (principal); J84.10 Pulmonary fibrosis, unspecified; J84.9 Interstitial pulmonary disease, unspecified; J18.9 Pneumonia, unspecified organism; J96.21 Acute and chronic respiratory failure with hypoxia; I50.9 Heart failure, unspecified; I25.10 Atherosclerotic heart disease of native coronary artery without angina pectoris; E66.9 Obesity, unspecified; J44.9 Chronic obstructive pulmonary disease, unspecified; M32.13 Lung involvement in systemic lupus erythematosus; I13.0 Hypertensive heart and chronic kidney disease with heart failure and stage 1 through stage 4 chronic kidney disease, or unspecified chronic kidney disease; E78.5 Hyperlipidemia, unspecified; E03.9 Hypothyroidism, unspecified; G89.4 Chronic pain syndrome; K21.9 Gastro-esophageal reflux disease without esophagitis; I21.A1 Myocardial infarction type 2; K52.9 Noninfective gastroenteritis and colitis, unspecified; Z99.81 Dependence on supplemental oxygen; N18.9 Chronic kidney disease, unspecified; Z79.899 Other long term (current) drug therapy; E11.22 Type 2 diabetes mellitus with diabetic chronic kidney disease; Z95.5 Presence of coronary angioplasty implant and graft; Z68.32 Body mass index [BMI] 32.0-32.9, adult
CPT/HCPCS: 36415; 71045; 71250; 71275; 74176; 80048; 80053; 81001; 82962; 83690; 83735; 83880; 84436; 84443; 84484; 85007; 85025; 85378; 86038; 86140; 87081; 87636; 93005; 93306; 94640; 94761; 97163; 97165; 99291; G0378; J0131; J1956; J2405; Q9967

== ENCOUNTER 2024-04-02 13:53 | Emergency (ER) | payer MEDICARE, SELFPAY ==
[2024-04-02 13:56] VITALS: BP 158/80; PULSE 91; RESP 20; TEMP 37.4; O2SAT 95; BMI 44.2
--- NOTE | 2024-04-02 14:06 | ED_ITS ---
<Statement entered by Eduardo Dumont MD - 04/02/24 23:34> I was consulted by the PETERSON, and we discussed the complexity of the problems being addressed. I approved the treatment and management plan for this patient's care in the emergency department, thus performing a substantive portion of the medical decision making. Eduardo Dumont MD, RAHEEM, FACEP Discharge Plan Disposition Patient Disposition: Home, Self-Care Condition: Good Chief Complaint: Dizziness Prescriptions Prescriptions: No Action ondansetron HCl 8 MG tablet 8 mg PO TIDP PRN (Reason: Nausea) methadone 10 MG tablet 10 mg PO 0600,1200,1800,2359 gabapentin 800 MG tablet 800 mg PO QID Patient Comments: TAKE 1 TABLET 4 TIMES EACH DAY levothyroxine 50 MCG tablet 50 mcg PO DAILY aspirin 81 MG tablet,chewable 81 mg PO DAILY pantoprazole 40 MG tablet,delayed release (DR/EC) 40 mg PO DAILY atorvastatin 40 mg tablet 40 mg PO HS clopidogrel 75 mg tablet 75 mg PO DAILY bisoprolol fumarate 5 mg tablet 2.5 mg PO DAILY Patient Comments: take one-half tablet (2.5 mg) by oral route once daily Jardiance 25 mg tablet 25 mg PO DAILY Patient Comments: take 1 tablet (25 mg) by oral route once daily in the morning amlodipine 2.5 mg tablet 2.5 mg PO DAILY Patient Comments: take 1 tablet (2.5 mg) by oral route once daily escitalopram oxalate 20 mg tablet 20 mg PO DAILY Patient Comments: TAKE ONE TABLET BY MOUTH DAILY insulin aspart U-100 [Novolog FlexPen U-100 Insulin] 100 unit/mL (3 mL) insulin pen 10 sliding scale dose SQ TIDWMEAL Patient Comments: INJECT 10 UNITS UNDER THE SKIN THREE TIMES DAILY WITH MEALS bupropion HCl 150 mg tablet extended release 24 hr 150 mg PO DAILY Patient Comments: TAKE ONE TABLET BY MOUTH EVERY DAY ergocalciferol (vitamin D2) [Vitamin D2] 1,250 mcg (50,000 unit) capsule 50,000 unit PO WEEKLY Patient Comments: Take 1 capsule every week by oral route. fluticasone propionate 50 mcg/actuation Alleene,Suspension 1 spray INTRANASAL BID Rx Instructions: administer into each nostril guaifenesin 600 mg Tablet Extended Release 12hr 600 mg PO Q12H PRN (Reason: Cough) magnesium oxide 400 mg magnesium Tablet 400 mg PO DAILY Levemir FlexPen 100 unit/mL (3 mL) Insulin Pen 50 unit SQ HS nitroglycerin 0.4 mg tablet, sublingual 0.4 mg sublingual Q5MINP PRN (Reason: Chest Pain) Patient Comments: DISSOLVE 1 TABLET UNDER THE TONGUE EVERY 5 MINUTES NEEDED FOR CHEST PAIN. DO NOT EXCEED A TOTAL OF 3 DOSES IN 15 MINUTES. albuterol sulfate [Ventolin HFA] 90 mcg/actuation HFA aerosol inhaler 2 puff INHALATION Q4HP PRN (Reason: Shortness Of Breath) Patient Comments: Inhale 2 puffs every 4 hours by inhalation route. Trelegy Ellipta 100-62.5-25 mcg Blister With Device 1 inh inhalation DAILY 30 Days Qty: 1 0RF potassium chloride [Klor-Con M20] 20 mEq Tablet,Er Particles/Crystals 40 meq PO BID 3 Days Qty: 12 0RF Referrals Follow up/Referrals: Robina Downey [Primary Care Provider] - See instructions Activity Restrictions/Add. Instructions Additional Instructions/Restrictions: Please follow-up closely with your gamma operator regarding blood pressure management. Please keep a blood pressure log at least 3 times a day first in the morning midday and before bed. Return to ER for any worsening signs or symptoms as needed. Clinical Impressions Clinical Impression: Essential hypertension, Hypocalcemia Instructions Patient Instructions: Essential Hypertension Discharge ED Provider: Eduardo Dumont General Adult HPI <ADAM Hilario - Last Filed: 04/02/24 15:39> General Chief complaint: Dizziness Stated complaint: elev. bp, dizziness, headache, unsteady Time Seen by Provider: 04/02/24 14:05 History of Present Illness HPI narrative: Patient presents from Dr. Tolliver's office for elevated blood pressure. 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 She was sent to the emergency department for further evaluation. On arrival however patient's blood pressure is 158/80 pulse 91 and patient has no chest pain shortness of breath above her baseline as she is on 2 L chronically fever chills hemoptysis hematochezia melena nausea vomiting diarrhea headache vision changes. Related Data Home Medications Medication Instructions Recorded Confirmed aspirin 81 mg chewable tablet 81 mg PO DAILY 11/27/19 04/02/24 gabapentin 800 mg tablet 800 mg PO QID fibromyalgia pain 11/27/19 04/02/24 levothyroxine 50 mcg tablet 50 mcg PO DAILY thyroid 11/27/19 04/02/24 methadone 10 mg tablet 10 mg PO 0600,1200,1800,2359 11/27/19 04/02/24 fibromyalgia pain ondansetron HCl 8 mg tablet 8 mg PO TIDP PRN Nausea 11/27/19 04/02/24 pantoprazole 40 mg tablet,delayed 40 mg PO DAILY 11/28/19 04/02/24 release amlodipine 2.5 mg tablet 2.5 mg PO DAILY High Blood Pressure 07/07/22 04/02/24 atorvastatin 40 mg tablet 40 mg PO HS High cholesterol 07/07/22 04/02/24 bisoprolol fumarate 5 mg tablet 2.5 mg PO DAILY High Blood Pressure 07/07/22 04/02/24 clopidogrel 75 mg tablet 75 mg PO DAILY 07/07/22 04/02/24 empagliflozin 25 mg tablet 25 mg PO DAILY 07/07/22 04/02/24 (Jardiance) albuterol sulfate 90 mcg/actuation 2 puff inhalation Q4HP PRN 12/02/23 04/02/24 aerosol inhaler (Ventolin HFA) Shortness Of Breath bupropion HCl 150 mg 24 hr tablet, 150 mg PO DAILY 12/02/23 04/02/24 extended release ergocalciferol (vitamin D2) 1,250 50,000 unit PO WEEKLY Supplement 12/02/23 04/02/24 mcg (50,000 unit) capsule (Vitamin D2) escitalopram oxalate 20 mg tablet 20 mg PO DAILY 12/02/23 04/02/24 fluticasone propionate 50 1 spray intranasal BID ALLERGIES 12/02/23 04/02/24 mcg/actuation nasal spray,suspension guaifenesin 600 mg tablet, 600 mg PO Q12H PRN Cough 12/02/23 04/02/24 extended release 12 hr insulin aspart U-100 100 unit/mL 10 sliding scale dose SQ TIDWMEAL 12/02/23 04/02/24 (3 mL) subcutaneous pen (Novolog Diabetes FlexPen U-100 Insulin aspart) insulin detemir U-100 100 unit/mL 50 unit SQ HS Diabetes 12/02/23 04/02/24 (3 mL) subcutaneous pen (Levemir FlexPen) magnesium oxide 400 mg PO DAILY Supplement 12/02/23 04/02/24 nitroglycerin 0.4 mg sublingual 0.4 mg sublingual Q5MINP PRN Chest 12/02/23 04/02/24 tablet Pain Previous Rx's Medication Instructions Recorded fluticasone fur. 100 mcg-umeclid 1 inh inhalation DAILY 30 days #1 12/05/23 62.5 mcg-vilant 25 mcg ea inhalat.powder (Trelegy Ellipta) potassium chloride 20 mEq 40 meq (2 x 20 mEq) PO BID 3 days 01/01/24 tablet,extended #12 tabs release(part/cryst) (Klor-Con M) Allergies Allergy/AdvReac Type Severity Reaction Status Date / Time Cephalosporins Allergy Unknown Verified 04/02/24 12:54 allergy reaction meperidine Allergy Unknown Verified 04/02/24 12:54 allergy reaction NSAIDS (Non-Steroidal Allergy Unknown Verified 04/02/24 12:54 Anti-Inflamma allergy reaction pregabalin Allergy Verified 04/02/24 12:54 Sulfa (Sulfonamide Allergy Unknown Verified 04/02/24 12:54 Antibiotics) allergy reaction sumatriptan Allergy Verified 04/02/24 12:54 tizanidine Allergy Verified 04/02/24 12:54 enoxaparin [From Lovenox] AdvReac Unknown Verified 04/02/24 12:54 allergy reaction nalbuphine AdvReac Unknown Verified 04/02/24 12:54 allergy reaction promethazine AdvReac Unknown Verified 04/02/24 12:54 allergy reaction PFSH <ADAM Hilario - Last Filed: 04/02/24 15:39> [facility] Disclaimer: The information contained in this section may have been updated after the patient was seen, as this information can be updated by other users. Medical History (Updated 04/02/24 @ 15:39 by ADAM Hilario) Chronic respiratory failure with hypoxia Dyspnea on exertion ILD (interstitial lung disease) Fibrosis of lung Lupus disease of lung Acute and chronic respiratory failure with hypoxia History of ITP History of lupus Rotator cuff impingement syndrome History of anemia History of left heart catheterization (LHC) Cataract Kidney disease Thyroid disease Asthma Anemia SVT (supraventricular tachycardia) MRSA (methicillin resistant Staphylococcus aureus) HTN (hypertension) GI bleed Gastroparesis GERD (gastroesophageal reflux disease) DVT (deep venous thrombosis) Arrhythmia Endometrial cancer Heart attack Oxygen dependent COPD (chronic obstructive pulmonary disease) Diabetes Addisons disease Surgical History History of splenectomy History of esophagogastroduodenoscopy (EGD) History of carpal tunnel surgery History of [place] fundoplication History of right heart catheterization (RHC) History of hysterectomy History of colonoscopy History of cholecystectomy Family History Other Family history of anemia Family history of asthma Family history of bleeding disorder Family history of cancer Family history of diabetes mellitus Family history of kidney disease Family history of thyroid disease Social History Smoking Status: Never smoker alcohol intake: never current occupational status: retired Travel in the last 8 weeks: None household members: none housing: house lives independently: Yes marital status: education level: college diet: diabetic caffeine: Yes <ADAM Hilario - Last Filed: 04/02/24 15:39> ROS Obtained: Yes Systems reviewed as appropriate & no additional complaints except as documented Physical Exam <ADAM Hilario - Last Filed: 04/02/24 15:39> General General appearance: alert and in no apparent distress Respiratory Respiratory exam: Present normal lung sounds bilaterally Cardiovascular Cardiovascular exam: Present regular rate and normal rhythm Neurological Exam Neurological exam: Present alert and oriented X3 Medical Decision Making <ADAM Hilario - Last Filed: 04/02/24 15:39> Medical Records Medical records reviewed: Yes I reviewed the patient's medical records. Prasad Inquiry Pt receiving controlled substance: No Vital Signs: 04/02/24 13:56 04/02/24 14:15 04/02/24 14:30 Temperature 99.3 F Temperature Source Oral Pulse Rate 89 89 Pulse Rate [Right] 91 H Respiratory Rate 20 Blood Pressure 158/82 H 173/92 H Blood Pressure [Right Arm] 158/80 H Blood Pressure Mean 116 Blood Pressure Mean [Right Arm] 106 02 Sat by Pulse Oximetry 95 95 95 Oxygen Delivery Method Nasal Cannula Nasal Cannula Oxygen Flow Rate (LPM) 2 2 04/02/24 15:00 Temperature Temperature Source Pulse Rate 86 Pulse Rate [Right] Respiratory Rate Blood Pressure 136/78 Blood Pressure [Right Arm] Blood Pressure Mean 97 Blood Pressure Mean [Right Arm] 02 Sat by Pulse Oximetry 95 Oxygen Delivery Method Oxygen Flow Rate (LPM) Lab Data Lab results reviewed: Yes I reviewed the patient's lab results. Lab Results 04/02/24 14:50: WBC 10.3, RBC 3.77 L, Hgb 11.5 L, Hct 38.4, MCV 101.9 H, MCH 30.5, MCHC 30.0 L, RDW 16.7, Plt Count 289, MPV 9.3, Neut % (Auto) 54.1, Lymph % (Auto) 33.8, [place] % (Auto) 7.7, Eos % (Auto) 3.6, Baso % (Auto) 0.8, Neut # (Auto) 5.6, Lymph # (Auto) 3.5, Ellsworth # (Auto) 0.8, Eos # (Auto) 0.4, Baso # (Auto) 0.1, Sodium 138, Potassium 4.9, Chloride 104, Carbon Dioxide 30, Anion Gap 8.9, BUN 9, Creatinine 0.70, Estimated Creat Clear 38, Estimated GFR 84, Est GFR ( Amer) 101, Glucose 148 H, Calcium 8.3 L, Magnesium 1.8, Total Bilirubin 0.8, AST 41 H, ALT 19, Alkaline Phosphatase 74, Troponin I < 0.01, N T-Pro-B Natriuret Pep 478 H, Total Protein 7.2, Albumin 3.9, Globulin 3.3 H, Albumin/Globulin Ratio 1.2 04/02/24 14:50 04/02/24 14:50 Orders (Tests/Meds): ED MEDICATIONS Generic Name Dose Route Start Last Admin Trade Name Freq PRN Reason Stop Dose Admin Calcium Gluconate/Sodium Chloride 1 gm in 50 mls @ 50 mls/hr 04/02/24 15:23 04/02/24 15:27 Calcium Gluconate 1,000mg/50ml Nacl Premix IV 04/02/24 16:22 50 mls/hr ONCE ONE Administration ORDERS Category Date Time Status Chest XR -- portable [XR chest portable] Stat Exams 04/02/24 14:23 Completed SOREN w/Reflex if Positive Routine Lab 04/02/24 14:50 Received Anti-DNA (DS) Ab Qn Routine Lab 04/02/24 14:50 Received Antineutrophil Cytoplasmic Ab Routine Lab 04/02/24 14:50 Received BNP [NT Pro Brain Natriuretic Pep.] Stat Lab 04/02/24 14:50 Completed C-Reactive Protein Routine Lab 04/02/24 14:50 Received CBC w/Auto Diff [Complete Blood Count Auto Diff] Stat Lab 04/02/24 14:50 Completed CMP [Comprehensive Metabolic Panel] Stat Lab 04/02/24 14:50 Completed Hypersensitivity Pneumonitis Routine Lab 04/02/24 14:50 Received Magnesium Stat Lab 04/02/24 14:50 Completed QuantiFERON Client Incubated Routine Lab 04/02/24 14:50 Received Rheumatoid Arthritis Panel Routine Lab 04/02/24 14:50 Received Strongyloides IgG Antibody Routine Lab 04/02/24 14:50 Received Trop I [Troponin I] Stat Lab 04/02/24 14:50 Completed Troponin I Q3H Lab 04/02/24 17:30 Ordered Troponin I Q3H Lab 04/02/24 20:30 Ordered HEART Score History (anamnesis): Slightly suspicious ECG: Non-specific disturbance Age: >65 years Risk factors: Atherosclerosis history Medical Decision Narrative: In summary patient is a in summary patient is a 68-year-old female who presents to the emergency department for evaluation of elevated blood pressure. Patient is normotensive with a blood pressure 158/80 heart rate 91 respiratory rate is 20 O2 sats 95% on 2 L by nasal cannula upon arrival, and afebrile. Physical exam is remarkable for some faint end expiratory wheezes and morbid obesity but heart sounds are normal . Differential diagnosis includes transient hypertension versus malignant hypertension versus CHF exacerbation versus ACS etc. Initial workup will be conducted with hematologic labs plain film chest x-ray twelve- lead EKG. Initial interventions were considered however as patient presents normotensive currently deferred. Initial workup reviewed by me shows that she has a mildly elevated NT proBNP but in the setting of known heart failure not significant. Patient also has a low calcium which has been repleted here in the ER with oral Tums. The remainder of her hematologic labs are nonactionable including a negative troponin. Patient's blood pressure continues to be normotensive with current blood pressure 136/78. Upon repeat evaluation patient has no symptoms still.. Given this patient is appropriate for discharge with recommendations to follow-up closely with her gamma operator. <Anrdeas Ceron MD - Last Filed: 04/02/24 15:04> Vital Signs: 04/02/24 13:56 04/02/24 14:15 04/02/24 14:30 Temperature 99.3 F Temperature Source Oral Pulse Rate 89 89 Pulse Rate [Right] 91 H Respiratory Rate 20 Blood Pressure 158/82 H 173/92 H Blood Pressure [Right Arm] 158/80 H Blood Pressure Mean 116 Blood Pressure Mean [Right Arm] 106 02 Sat by Pulse Oximetry 95 95 95 Oxygen Delivery Method Nasal Cannula Nasal Cannula Oxygen Flow Rate (LPM) 2 2 04/02/24 15:00 Temperature Temperature Source Pulse Rate 86 Pulse Rate [Right] Respiratory Rate Blood Pressure 136/78 Blood Pressure [Right Arm] Blood Pressure Mean 97 Blood Pressure Mean [Right Arm] 02 Sat by Pulse Oximetry 95 Oxygen Delivery Method Oxygen Flow Rate (LPM) Lab Data Lab Results 04/02/24 14:50: WBC 10.3, RBC 3.77 L, Hgb 11.5 L, Hct 38.4, MCV 101.9 H, MCH 30.5, MCHC 30.0 L, RDW 16.7, Plt Count 289, MPV 9.3, Neut % (Auto) 54.1, Lymph % (Auto) 33.8, Ellsworth % (Auto) 7.7, Eos % (Auto) 3.6, Baso % (Auto) 0.8, Neut # (Auto) 5.6, Lymph # (Auto) 3.5, [place] # (Auto) 0.8, Eos # (Auto) 0.4, Baso # (Auto) 0.1, Sodium 138, Potassium 4.9, Chloride 104, Carbon Dioxide 30, Anion Gap 8.9, BUN 9, Creatinine 0.70, Estimated Creat Clear 38, Estimated GFR 84, Est GFR ( Amer) 101, Glucose 148 H, Calcium 8.3 L, Magnesium 1.8, Total Bilirubin 0.8, AST 41 H, ALT 19, Alkaline Phosphatase 74, Troponin I < 0.01, N T-Pro-B Natriuret Pep 478 H, Total Protein 7.2, Albumin 3.9, Globulin 3.3 H, Albumin/Globulin Ratio 1.2 Orders (Tests/Meds): ED MEDICATIONS Generic Name Dose Route Start Last Admin Trade Name Freq PRN Reason Stop Dose Admin Calcium Gluconate/Sodium Chloride 1 gm in 50 mls @ 50 mls/hr 04/02/24 15:23 04/02/24 15:27 Calcium Gluconate 1,000mg/50ml Nacl Premix IV 04/02/24 16:22 50 mls/hr ONCE ONE Administration ORDERS Category Date Time Status Chest XR -- portable [XR chest portable] Stat Exams 04/02/24 14:23 Completed SOREN w/Reflex if Positive Routine Lab 04/02/24 14:50 Received Anti-DNA (DS) Ab Qn Routine Lab 04/02/24 14:50 Received Antineutrophil Cytoplasmic Ab Routine Lab 04/02/24 14:50 Received BNP [NT Pro Brain Natriuretic Pep.] Stat Lab 04/02/24 14:50 Completed C-Reactive Protein Routine Lab 04/02/24 14:50 Received CBC w/Auto Diff [Complete Blood Count Auto Diff] Stat Lab 04/02/24 14:50 Completed CMP [Comprehensive Metabolic Panel] Stat Lab 04/02/24 14:50 Completed Hypersensitivity Pneumonitis Routine Lab 04/02/24 14:50 Received Magnesium Stat Lab 04/02/24 14:50 Completed QuantiFERON Client Incubated Routine Lab 04/02/24 14:50 Received Rheumatoid Arthritis Panel Routine Lab 04/02/24 14:50 Received Strongyloides IgG Antibody Routine Lab 04/02/24 14:50 Received Trop I [Troponin I] Stat Lab 04/02/24 14:50 Completed Troponin I Q3H Lab 04/02/24 17:30 Ordered Troponin I Q3H Lab 04/02/24 20:30 Ordered ECG Data Tracing #1: Independently interpreted by me rate is 86, rhythm is regular, axis is borderline leftward deviated, incomplete right bundle branch block, no ST elevation in anatomical contiguous leads, QTc 448. Critical Care <ADAM Hilario - Last Filed: 04/02/24 15:39> Critical Care Time Critical Care Time: No
--- NOTE | 2024-04-02 14:12 | ECG_ITS ---
APPROVED REPORT Exam: Resting ECG HR:86 bpm ECG Measurements Heart Rate 86 AXES [place] 198 P 69 QRSd 108 QRS -6 QT 405 T 60 QTc 448 Conclusion SINUS RHYTHM INCOMPLETE RIGHT BUNDLE BRANCH BLOCK [90+ ms QRS DURATION, TERMINAL R IN V1/V2, 40+ ms S IN I/aVL/V4/V5/V6] BORDERLINE ECG Electronically signed by : EVANGELIST CHEN, 04/02/2024 15:16:07
[2024-04-02 14:15] VITALS: BP 158/82; PULSE 89; O2SAT 95
--- NOTE | 2024-04-02 14:23 | XR_ITS ---
FINAL REPORT CLINICAL HISTORY: Elevated BP, history of CHF, COPD and ASCVD COMPARISON: 12/30/2023 FINDINGS: No acute pulmonary opacity is present. There is chronic interstitial prominence. There is no evidence of effusion or pneumothorax. Mediastinum is unremarkable. There is mild cardiomegaly. IMPRESSION: No acute abnormality. Reviewed, Interpreted and Dictated by Jonnathan Solano MD Transcribed by Danni Catalan Authenticated and [facility]
[2024-04-02 14:30] VITALS: BP 173/92; PULSE 89; O2SAT 95
--- NOTE | 2024-04-02 14:42 | PC.NURSE ---
RAD at BS
[2024-04-02 15:00] VITALS: BP 136/78; PULSE 86; O2SAT 95
[2024-04-02 15:11] LABS: Chloride 104 mmol/L (98-107); Sodium 138 mmol/L (136-145)
[2024-04-02 15:12] LABS: Potassium 4.9 mmoL/L (3.5-5.1)
[2024-04-02 15:14] LABS: Alanine Aminotransferase 19 U/L (12-78); Alkaline Phosphatase 74 U/L (38-126); Anion Gap 8.9 mEq/L (5-15); Aspartate Amino Transferase 41 U/L (14-36); Bilirubin,Total 0.8 mg/dl (0.2-1.3); Blood Urea Nitrogen 9 mg/dl (7-17); Carbon Dioxide 30 mmol/L (22.0-30.0); Creatinine Clearance Estimated 38 mL/min (50-200); Estimated Glomerular Filt Rate 84 ml/min (>60); GFR (African American) 101 ML/MIN (>60)
[2024-04-02 15:15] LABS: Albumin Level 3.9 g/dl (3.5-5.0); Albumin/Globulin Ratio 1.2 (1.1-1.8); Calcium 8.3 mg/dl (8.4-10.2); Globulin 3.3 g/dL (1.3-3.2); Glucose 148 mg/dl (74-100); Magnesium 1.8 mg/dl (1.6-2.3); Total Protein,Serum 7.2 g/dl (6.3-8.2)
[2024-04-02 15:19] LABS: Basophils # 0.1 K/mm3 (0-0.2); Basophils % 0.8 % (0.1-2.0); Eosinophils # 0.4 K/mm3 (0.0-0.4); Eosinophils % 3.6 % (0.1-12.0); Hematocrit 38.4 % (37.0-47.0); Hemoglobin 11.5 g/dL (12.2-16.2); Lymphocytes # 3.5 K/mm3 (0.7-4.5); Lymphocytes % 33.8 % (10-50); Mean Corpuscular Hemoglobin 30.5 pg (27.0-31.2); Mean Corpuscular Volume 101.9 fl (81-99); Mean Platelet Volume 9.3 fl (7.4-10.4); Monocytes # 0.8 K/mm3 (0.1-1.0); Monocytes % 7.7 % (1.7-9.3); Neutrophils # 5.6 K/mm3 (1.8-7.8); Neutrophils % 54.1 % (37.0-80.0); Platelet Count 289 K/mm3 (142-424); Red Blood Count 3.77 M/mm3 (4.20-5.40); Red Cell Distribution Width 16.7 % (11.5-17.5); White Blood Count 10.3 K/mm3 (4.8-10.8)
[2024-04-02 15:25] LABS: NT Pro Brain Natriuretic Pep. 478 pg/mL (0-125)
[2024-04-02 15:28] LABS: Troponin I < 0.01 ng/ml (0.00-0.034)
[2024-04-02 15:44] LABS: Erythrocyte Sedimentation Rate 22 mm/hr (0-30)
[2024-04-02 15:51] LABS: C-Reactive Protein 5.2 mg/L (0-4)
[2024-04-02] MEDS: CALCIUM CARBONATE 500MG CHEWTAB 1000 MG PO (15:53)
[2024-04-02 15:56] VITALS: BP 146/93; PULSE 88; RESP 18; TEMP 37.4; O2SAT 93
[2024-04-04 08:22] LABS: RA Latex Turbid. <10.0 IU/mL (<14.0)
[2024-04-04 14:02] LABS: Anti-DNA (DS) Ab Qn 3 IU/mL (0-9)
[2024-04-04 14:47] LABS: Cytoplasmic (C-ANCA) <1:20 titer (Neg:<1:20); Perinuclear (P-ANCA) <1:20 titer (Neg:<1:20)
[2024-04-04 17:34] LABS: QuantiFERON-TB Gold Plus Negative (Negative)
[2024-04-06 13:07] LABS: Antinuclear Antibodies, IFA Negative (.)
[2024-04-09 15:22] LABS: Strongyloides IgG Antibody Negative (Negative)
== END 2024-04-02 15:59 | disposition home or self-care (01) ==
PROVIDERS: Internal Medicine Pulmonary Disease; Physician Assistant; Emergency Provider Student in an Organized Health Care Education/Training Program; PCP Nurse Practitioner Family
DX: J84.9 Interstitial pulmonary disease, unspecified (principal); J84.10 Pulmonary fibrosis, unspecified; D72.10 Eosinophilia, unspecified; E83.51 Hypocalcemia; E11.9 Type 2 diabetes mellitus without complications; J44.9 Chronic obstructive pulmonary disease, unspecified; K21.9 Gastro-esophageal reflux disease without esophagitis; I10 Essential (primary) hypertension; E03.9 Hypothyroidism, unspecified; Z99.81 Dependence on supplemental oxygen; Z79.4 Long term (current) use of insulin; Z79.84 Long term (current) use of oral hypoglycemic drugs
CPT/HCPCS: 71045; 80053; 83735; 83880; 84484; 84550; 85025; 85651; 86038; 86140; 86225; 86235; 86256; 86331; 86431; 86480; 86602; 86606; 86609; 86682; 93005; 96365; 99284

== ENCOUNTER 2024-05-08 11:55 | Emergency (ER) | payer MEDICARE, SELFPAY ==
[2024-05-08 12:04] VITALS: BP 147/88; PULSE 88; O2SAT 95
--- NOTE | 2024-05-08 12:05 | PC.NURSE ---
DR BILLINGSLEY AT BEDSIDE
--- NOTE | 2024-05-08 12:15 | CT_ITS ---
FINAL REPORT TECHNIQUE: Thin section axial CT with sagittal reconstruction without contrast This study was performed with techniques to keep radiation doses as low as reasonably achievable, (ALARA). Individualized dose reduction techniques using automated exposure control or adjustment of mA and/or kV according to the patient''s size were employed. CLINICAL HISTORY: fall, struck R side of head, new radculopathy C6 FINDINGS: No fracture is seen. Alignment is normal. No obvious bony spinal canal stenosis is present. No gross disk abnormalities are seen. There are extensive lung changes in the apices, similar to chest CT dated January 02, 2024. IMPRESSION: No fracture or malalignment Reviewed, Interpreted and Dictated by Jonnathan Solano MD Transcribed by Danni Catalan Authenticated and [facility]
--- NOTE | 2024-05-08 12:15 | CT_ITS ---
FINAL REPORT TECHNIQUE: Thin section axial CT with coronal reconstruction without IV contrast This study was performed with techniques to keep radiation doses as low as reasonably achievable, (ALARA). Individualized dose reduction techniques using automated exposure control or adjustment of mA and/or kV according to the patient''s size were employed. CLINICAL HISTORY: fall 04/23, progressive DAS R sided FINDINGS: There are mildly comminuted nondisplaced bilateral nasal bone fractures. There is mild nasal septal deviation to the right. Paranasal sinuses are clear. The TMJs are intact. IMPRESSION: Mildly comminuted nondisplaced bilateral nasal bone fractures. Reviewed, Interpreted and Dictated by Jonnathan Solano MD Transcribed by Danni Catalan Authenticated and . [facility]
--- NOTE | 2024-05-08 12:15 | CT_ITS ---
FINAL REPORT TECHNIQUE: Noncontrast exam This study was performed with techniques to keep radiation doses as low as reasonably achievable, (ALARA). Individualized dose reduction techniques using automated exposure control or adjustment of mA and/or kV according to the patient''s size were employed. CLINICAL HISTORY: fall 04/23, progressive DAS R sided COMPARISON: 07/07/2022 FINDINGS: No abnormal density is seen. Ventricles are normal. Again identified is a dilated perivascular space in the left basal ganglia. There is no hemorrhage. No mass effect is seen. Bone windows show no evidence of fracture. IMPRESSION: No acute findings Reviewed, Interpreted and Dictated by Jonnathan Solano MD Transcribed by Danni Catalan Authenticated and [facility]
--- NOTE | 2024-05-08 12:15 | CT_ITS ---
FINAL REPORT CLINICAL HISTORY: fall, struck R side of head, new upper T spine benny FINDINGS: CT THORACIC SPINE TECHNIQUE: Thin section axial CT with sagittal and coronal reconstructions This study was performed with techniques to keep radiation doses as low as reasonably achievable, (ALARA). Individualized dose reduction techniques using automated exposure control or adjustment of mA and/or kV according to the patient's size were employed. There are multiple levels of mild chronic compression fractures most of which are in the lower thoracic spine. The appearance is stable compared to chest CT dated December,. No acute fracture is identified. Alignment is normal. No bony canal stenosis is seen. No significant disc abnormalities. IMPRESSION: Chronic appearing findings without acute bony abnormality. Reviewed, Interpreted and Dictated by Jonnathan Solano MD Transcribed by Danni Catalan Authenticated and [facility]
--- NOTE | 2024-05-08 12:19 | HMH.EDGENADL ---
Discharge Plan Disposition Patient Disposition: Home, Self-Care Chief Complaint: Fall Prescriptions Prescriptions: No Action ondansetron HCl 8 MG tablet 8 mg PO TIDP PRN (Reason: Nausea) methadone 10 MG tablet 10 mg PO 0600,1200,1800,2359 gabapentin 800 MG tablet 800 mg PO QID Patient Comments: TAKE 1 TABLET 4 TIMES EACH DAY levothyroxine 50 MCG tablet 50 mcg PO DAILY aspirin 81 MG tablet,chewable 81 mg PO DAILY pantoprazole 40 MG tablet,delayed release (DR/EC) 40 mg PO DAILY atorvastatin 40 mg tablet 40 mg PO HS clopidogrel 75 mg tablet 75 mg PO DAILY bisoprolol fumarate 5 mg tablet 2.5 mg PO DAILY Patient Comments: take one-half tablet (2.5 mg) by oral route once daily Jardiance 25 mg tablet 25 mg PO DAILY Patient Comments: take 1 tablet (25 mg) by oral route once daily in the morning amlodipine 2.5 mg tablet 2.5 mg PO DAILY Patient Comments: take 1 tablet (2.5 mg) by oral route once daily escitalopram oxalate 20 mg tablet 20 mg PO DAILY Patient Comments: TAKE ONE TABLET BY MOUTH DAILY insulin aspart U-100 [Novolog FlexPen U-100 Insulin] 100 unit/mL (3 mL) insulin pen 10 sliding scale dose SQ TIDWMEAL Patient Comments: INJECT 10 UNITS UNDER THE SKIN THREE TIMES DAILY WITH MEALS bupropion HCl 150 mg tablet extended release 24 hr 150 mg PO DAILY Patient Comments: TAKE ONE TABLET BY MOUTH EVERY DAY ergocalciferol (vitamin D2) [Vitamin D2] 1,250 mcg (50,000 unit) capsule 50,000 unit PO WEEKLY Patient Comments: Take 1 capsule every week by oral route. fluticasone propionate 50 mcg/actuation [place],Suspension 1 spray INTRANASAL BID Rx Instructions: administer into each nostril guaifenesin 600 mg Tablet Extended Release 12hr 600 mg PO Q12H PRN (Reason: Cough) magnesium oxide 400 mg magnesium Tablet 400 mg PO DAILY Levemir FlexPen 100 unit/mL (3 mL) Insulin Pen 50 unit SQ HS nitroglycerin 0.4 mg tablet, sublingual 0.4 mg sublingual Q5MINP PRN (Reason: Chest Pain) Patient Comments: DISSOLVE 1 TABLET UNDER THE TONGUE EVERY 5 MINUTES NEEDED FOR CHEST PAIN. DO NOT EXCEED A TOTAL OF 3 DOSES IN 15 MINUTES. albuterol sulfate [Ventolin HFA] 90 mcg/actuation HFA aerosol inhaler 2 puff INHALATION Q4HP PRN (Reason: Shortness Of Breath) Patient Comments: Inhale 2 puffs every 4 hours by inhalation route. Trelegy Ellipta 100-62.5-25 mcg Blister With Device 1 inh inhalation DAILY 30 Days Qty: 1 0RF potassium chloride [Klor-Con M20] 20 mEq Tablet,Er Particles/Crystals 40 meq PO BID 3 Days Qty: 12 0RF Referrals Follow up/Referrals: Provider,Referral, MD [Primary Care Provider] - See instructions Activity Restrictions/Add. Instructions Additional Instructions/Restrictions: Call your family doctor to establish care for this visit to the emergency department and schedule follow-up within 48 hours to ensure improvement. If you have any worsening of your condition or any other concerning signs or symptoms, return to the emergency department or your primary care doctor for further evaluation. Talk to your family doctor about physical therapy for your neck and left upper extremity radiculopathy. Clinical Impressions Clinical Impression: CHI (closed head injury), Headache, Post-concussion syndrome, Cervical myofascial strain Print Language Print Language: Kinyarwanda Discharge ED Provider: Jorge Griffin General Adult HPI General Chief complaint: Fall Stated complaint: AMS Time Seen by Provider: 05/08/24 12:02 History of Present Illness HPI narrative: Please note that above description of symptoms, in this electronic medical record under categorization of recalled from ER triage doctor by RN are reflective of an initial nursing assessment, however, is not reflective of my full history and physical exam that was personally taken and clarified. Consequentially, this preceding description of symptoms, which may include the patient's categorized chief complaint in the EMR, do not reflect my personal clinical impression, and the ultimate description of history of present illness and patient stated complaints should be deferred to this section of the note. Unless stated otherwise or congruent with this section of the note, additional signs, symptoms, or incongruence should be interpreted as inaccurate with my clinical impression. Related Data Home Medications ?Medication ?Instructions ?Recorded ?Confirmed aspirin 81 mg chewable tablet 81 mg PO DAILY 11/27/19 04/02/24 gabapentin 800 mg tablet 800 mg PO QID fibromyalgia pain 11/27/19 04/02/24 levothyroxine 50 mcg tablet 50 mcg PO DAILY thyroid 11/27/19 04/02/24 methadone 10 mg tablet 10 mg PO 0600,1200,1800,2359 11/27/19 04/02/24 fibromyalgia pain ondansetron HCl 8 mg tablet 8 mg PO TIDP PRN Nausea 11/27/19 04/02/24 pantoprazole 40 mg tablet,delayed 40 mg PO DAILY 11/28/19 04/02/24 release amlodipine 2.5 mg tablet 2.5 mg PO DAILY High Blood Pressure 07/07/22 04/02/24 atorvastatin 40 mg tablet 40 mg PO HS High cholesterol 07/07/22 04/02/24 bisoprolol fumarate 5 mg tablet 2.5 mg PO DAILY High Blood Pressure 07/07/22 04/02/24 clopidogrel 75 mg tablet 75 mg PO DAILY 07/07/22 04/02/24 empagliflozin 25 mg tablet 25 mg PO DAILY 07/07/22 04/02/24 (Jardiance) albuterol sulfate 90 mcg/actuation 2 puff inhalation Q4HP PRN 12/02/23 04/02/24 aerosol inhaler (Ventolin HFA) Shortness Of Breath bupropion HCl 150 mg 24 hr tablet, 150 mg PO DAILY 12/02/23 04/02/24 extended release ergocalciferol (vitamin D2) 1,250 50,000 unit PO WEEKLY Supplement 12/02/23 04/02/24 mcg (50,000 unit) capsule (Vitamin D2) escitalopram oxalate 20 mg tablet 20 mg PO DAILY 12/02/23 04/02/24 fluticasone propionate 50 1 spray intranasal BID ALLERGIES 12/02/23 04/02/24 mcg/actuation nasal spray,suspension guaifenesin 600 mg tablet, 600 mg PO Q12H PRN Cough 12/02/23 04/02/24 extended release 12 hr insulin aspart U-100 100 unit/mL 10 sliding scale dose SQ TIDWMEAL 12/02/23 04/02/24 (3 mL) subcutaneous pen (Novolog Diabetes FlexPen U-100 Insulin aspart) insulin detemir U-100 100 unit/mL 50 unit SQ HS Diabetes 12/02/23 04/02/24 (3 mL) subcutaneous pen (Levemir FlexPen) magnesium oxide 400 mg PO DAILY Supplement 12/02/23 04/02/24 nitroglycerin 0.4 mg sublingual 0.4 mg sublingual Q5MINP PRN Chest 12/02/23 04/02/24 tablet Pain Previous Rx's ?Medication ?Instructions ?Recorded fluticasone fur. 100 mcg-umeclid 1 inh inhalation DAILY 30 days #1 12/05/23 62.5 mcg-vilant 25 mcg ea inhalat.powder (Trelegy Ellipta) potassium chloride 20 mEq 40 meq (2 x 20 mEq) PO BID 3 days 01/01/24 tablet,extended #12 tabs release(part/cryst) (Klor-Con M) Allergies Allergy/AdvReac Type Severity Reaction Status Date / Time Cephalosporins Allergy Unknown Verified 05/08/24 12:35 allergy reaction meperidine Allergy Unknown Verified 05/08/24 12:35 allergy reaction NSAIDS (Non-Steroidal Allergy Unknown Verified 05/08/24 12:35 Anti-Inflamma allergy reaction pregabalin Allergy Verified 05/08/24 12:35 Sulfa (Sulfonamide Allergy Unknown Verified 05/08/24 12:35 Antibiotics) allergy reaction sumatriptan Allergy Verified 05/08/24 12:35 tizanidine Allergy Verified 05/08/24 12:35 enoxaparin [From Lovenox] AdvReac Unknown Verified 05/08/24 12:35 allergy reaction nalbuphine AdvReac Unknown Verified 05/08/24 12:35 allergy reaction promethazine AdvReac Unknown Verified 05/08/24 12:35 allergy reaction PFSH PFSH Disclaimer: The information contained in this section may have been updated after the patient was seen, as this information can be updated by other users. Medical History (Updated 05/08/24 @ 14:18 by Jorge Griffin MD) Chronic respiratory failure with hypoxia Dyspnea on exertion ILD (interstitial lung disease) Fibrosis of lung Lupus disease of lung Acute and chronic respiratory failure with hypoxia History of ITP History of lupus Rotator cuff impingement syndrome History of anemia History of left heart catheterization (LHC) Cataract Kidney disease Thyroid disease Asthma Anemia SVT (supraventricular tachycardia) MRSA (methicillin resistant Staphylococcus aureus) HTN (hypertension) GI bleed Gastroparesis GERD (gastroesophageal reflux disease) DVT (deep venous thrombosis) Arrhythmia Endometrial cancer Heart attack Oxygen dependent COPD (chronic obstructive pulmonary disease) Diabetes Addisons disease Surgical History History of splenectomy History of esophagogastroduodenoscopy (EGD) History of carpal tunnel surgery History of [place] fundoplication History of right heart catheterization (RHC) History of hysterectomy History of colonoscopy History of cholecystectomy Family History Other Family history of anemia Family history of asthma Family history of bleeding disorder Family history of cancer Family history of diabetes mellitus Family history of kidney disease Family history of thyroid disease Social History Smoking Status: Never smoker alcohol intake: never current occupational status: retired Travel in the last 8 weeks: None household members: none housing: house lives independently: Yes marital status: education level: college diet: diabetic caffeine: Yes ROS Obtained: Yes All systems reviewed & no additional complaints except as documented Physical Exam General General appearance: alert, in no apparent distress and obese Head Head exam: atraumatic, normocephalic and other (No obvious trauma about the head or neck. Picture from patient on 04/23 with scattered/resolving bruising about right side of face and neck) Eye Eye exam: Present normal appearance, PERRL and EOMI ENT ENT exam: Present mucous membranes moist and TM's normal bilaterally Neck Neck exam: Present full ROM, trachea midline and tenderness (Midline and left-sided paraspinal muscles as well as upper T-spine tenderness) Respiratory Respiratory exam: Present normal lung sounds bilaterally; Absent respiratory distress, wheezes, stridor, accessory muscle use or prolonged expiratory phase Cardiovascular Cardiovascular exam: Present regular rate, normal rhythm and other (Pulses equal symmetric in upper and lower extremities) Abdominal Exam Abdominal exam: Present soft; Absent distention, tenderness or pulsatile mass Extremities Exam Extremities exam: Absent edema Neurological Exam Neurological exam: Present alert, oriented X3, CN II-XII intact and motor sensory deficit (Subjective sensation deficit with radiculopathy into C6 on the left side) Skin Skin exam: Present warm and dry; Absent diaphoresis or erythema Medical Decision Making Medical Records Medical records reviewed: Yes I reviewed the patient's medical records. Prasad Inquiry Pt receiving controlled substance: No Prasad was queried for this patient: No Vital Signs: 05/08/24 12:04 05/08/24 12:21 05/08/24 13:20 Temperature 98.8 F Temperature Source Oral Pulse Rate 88 74 Pulse Rate [Left] 84 Respiratory Rate 20 Blood Pressure 147/88 H 157/74 H Blood Pressure [Right Arm] 147/88 H Blood Pressure Mean 101 Blood Pressure Mean [Right Arm] 107 Blood Pressure Source [Right Arm] Automatic Cuff Blood Pressure Position [Right Arm] Sitting 02 Sat by Pulse Oximetry 95 96 95 Oxygen Delivery Method Nasal Cannula Nasal Cannula Room Air Oxygen Flow Rate (LPM) 3 05/08/24 13:31 Temperature Temperature Source Pulse Rate 70 Pulse Rate [Left] Respiratory Rate Blood Pressure 140/63 Blood Pressure [Right Arm] Blood Pressure Mean Blood Pressure Mean [Right Arm] Blood Pressure Source [Right Arm] Blood Pressure Position [Right Arm] 02 Sat by Pulse Oximetry 95 Oxygen Delivery Method Nasal Cannula Oxygen Flow Rate (LPM) Orders (Tests/Meds): ED MEDICATIONS Discontinued Medications Generic Name Dose Route Start Last Admin Trade Name Freq PRN Reason Stop Dose Admin Acetaminophen 1,000 mg 05/08/24 12:15 05/08/24 13:09 Acetaminophen 1,000mg/100ml Vial IV 05/08/24 12:16 1,000 mg ONCE ONE Administration Dexamethasone Sodium Phosphate 10 mg 05/08/24 12:15 05/08/24 13:09 Dexamethasone 4mg/Ml 1ml Vial IV 05/08/24 12:16 10 mg ONCE ONE Administration Diphenhydramine HCl 25 mg 05/08/24 12:15 05/08/24 13:08 Diphenhydramine 50mg/Ml Vial IV 05/08/24 12:16 25 mg ONCE ONE Administration Magnesium Sulfate 2 gm in 50 mls @ 50 mls/hr 05/08/24 12:15 05/08/24 13:09 Magnesium Sulfate 2gm/50ml Premix IV 05/08/24 13:14 50 mls/hr ONCE ONE Administration Ketorolac Tromethamine 15 mg 05/08/24 12:15 05/08/24 13:08 Ketorolac 30mg/Ml Vial IV 05/08/24 12:16 15 mg ONCE ONE Administration Prochlorperazine Edisylate 10 mg 05/08/24 12:15 05/08/24 13:17 Prochlorperazine 10mg/2ml Vial IV 05/08/24 12:16 Not Given ONCE ONE ORDERS Category Date Time Status CT cervical spine wo con Stat Cat Scan 05/08/24 12:[address] facial bones wo con Stat Cat Scan 05/08/24 12:[address] head/brain wo con Stat Cat Scan 05/08/24 12:[address] thoracic spine wo con Stat Cat Scan 05/08/24 12:15 Completed Medical Decision Narrative: 68-year-old female history of hypertension, hyperlipidemia, diabetes, COPD, CAD status post stenting on Plavix presenting with headache. Patient states that she fell on 04/23. She was getting out of bed, tripped, fell and hit the right side of her face against a trash with chores. She states she did lose consciousness at that time. Unable to help herself up, but did not come to the hospital until today given constant headache. Has been taking methadone at home for which she states she is taking for chronic pain, is also taking Tylenol and Motrin. No weakness in her arms or legs, but she is having burning, shooting radicular pain going from base of neck down into left thumb. Also having midline neck and high thoracic spine pain. No bowel or bladder dysfunction, complaints of vision changes, or any other concerns. States that she is having a headache that is severe in intensity, photophobic, right-sided, does not radiate, progressively worsening since that time. History was obtained via conversation with patient. On arrival, patient hemodynamically stable, alert, oriented x4, appropriate, GCS 15, moving all extremities spontaneously, pupils equal and reactive to light. Full physical exam performed and significant for obese woman who is in no acute distress. No obvious trauma about head, face, or neck. She does have tenderness to very superficial touch everywhere she is complaining of pain including face, head, paraspinal neck, midline neck, thoracic spine. Neurologically intact. Pupils equal and reactive, TMs normal, patient ranging neck without issue left, right, but states when she turns to the right, she has reproduction of radicular pain down into the left thumb. Differential includes intracranial bleed/subdural hematoma, postconcussive syndrome, critical C-spine injury, critical thoracic spine injury, disc herniation, among others. Patient placed on continuous cardiac monitoring and continuous pulse ox with initial blood pressure 140/63, heart rate 70, saturation 95 on room air. Patient was given migraine cocktail for symptomatic management and correction of underlying abnormalities. Workup independently interpreted and significant for no intracranial hemorrhage. No evidence of cervical or thoracic spine injury. No evidence of facial fracture. Patient sleeping on reevaluation. Upon being woken up, read results were relayed to her. She is understanding. Because patient at baseline without signs or symptoms of clinical decompensation, deemed appropriate for discharge. Results were relayed to patient who voiced understanding and were agreeable to outpatient management and follow up. I discussed my clinical impression with patient and answered all questions. At this time, the evidence for any other entities in the differential is insufficient to warrant any further testing or ED observation. This was explained as well. Advisory was given that persistent or worsening symptoms require further evaluation. I confirmed the understanding of this discussion. Television Newscast Director disclaimer Much of this encounter note is an electronic victorian literature professor spoken language to printed text. Electronic victorian literature professor of the spoken language may permit errors. Although I have reviewed the note, some errors may still exist. Critical Care Critical Care Time Critical Care Time: No
[2024-05-08 12:21] VITALS: BP 147/88; PULSE 84; RESP 20; TEMP 37.1; O2SAT 96; BMI 46.4
--- NOTE | 2024-05-08 12:25 | PC.NURSE ---
PT TO CT
--- NOTE | 2024-05-08 12:39 | PC.NURSE ---
PT RETURNED FROM CT
--- NOTE | 2024-05-08 13:00 | PC.NURSE ---
IV PLACED VIA US
[2024-05-08] MEDS: diphenhydrAMINE 50MG/ML VIAL 25 MG IV (13:08)
[2024-05-08] MEDS: KETOROLAC 30MG/ML VIAL 15 MG IV (13:08)
[2024-05-08] MEDS: ACETAMINOPHEN 1,000MG/100ML VIAL 1000 MG IV (13:09)
[2024-05-08] MEDS: MAGNESIUM SULFATE IN WATER 2 GM/50 ML PIGGYBACK IV (13:09)
[2024-05-08] MEDS: DEXAMETHASONE 4MG/ML 1ML VIAL 10 MG IV (13:09)
[2024-05-08 13:20] VITALS: BP 157/74; PULSE 74; O2SAT 95
[2024-05-08 13:31] VITALS: BP 140/63; PULSE 70; O2SAT 95
[2024-05-08 14:30] VITALS: BP 140/63; PULSE 70; RESP 18; TEMP 37.1; O2SAT 97
--- NOTE | 2024-05-08 15:27 | PC.NURSE ---
I spoke to the pts son, Maik, he states he is at work and will not be able to pick her up until [id number].
--- NOTE | 2024-05-08 15:40 | PC.NURSE ---
pt was taken to the waiting room per her request. she states her grandson will be here any minute. pt d/c on her home oxygen tank
== END 2024-05-08 15:40 | disposition home or self-care (01) ==
PROVIDERS: Emergency Provider Emergency Medicine
DX: S09.90XA Unspecified injury of head, initial encounter (principal); S16.1XXA Strain of muscle, fascia and tendon at neck level, initial encounter; F07.81 Postconcussional syndrome; W01.10XA Fall on same level from slipping, tripping and stumbling with subsequent striking against unspecified object, initial encounter; G44.309 Post-traumatic headache, unspecified, not intractable
CPT/HCPCS: 70450; 70486; 72125; 72128; 96365; 96375; 99285; J0131; J1100; J1200; J1885; J3475

== ENCOUNTER 2024-07-14 06:56 | Outpatient (CLI) | payer MEDICARE, SELFPAY ==
--- NOTE | 2024-07-14 07:01 | CT_ITS ---
FINAL REPORT TECHNIQUE: Axial images through the chest were performed by computed tomography. This study was performed with techniques to keep radiation doses as low as reasonably achievable, (ALARA). Individualized dose reduction techniques using automated exposure control or adjustment of mA and/or kV according to the patient's size were employed. CLINICAL HISTORY: .nodule, soa COMPARISON: Prior CTA of the chest dated 12/31/2023 FINDINGS: HIGH RESOLUTION CT CHEST: High resolution CT examination of the chest was performed using supine inspiratory and expiratory and prone inspiratory films of the chest. A coronary artery stent is present. There is no pericardial or pleural effusion. There are small scattered nonspecific mediastinal nodes present. There are coarse linear pleural and parenchymal foci of scarring, greater on the right than on the left. The expiratory supine examination does not reveal significant air trapping. The prone inspiration film is not significantly changed, which is consistent with persistent scar or fibrosis. IMPRESSION: Coarse linear pleural and parenchymal foci of scarring, greater on the right than on the left and more prominent in the upper lung lui. Supine and prone views as described above are consistent with persistent scarring or fibrosis. Reviewed, Interpreted and Dictated by Trenton Seo MD Transcribed by Cristela Odom Authenticated and [facility]
[2024-07-14 08:50] VITALS: PULSE 92; PULSE 96
[2024-07-14] MEDS: ALBUTEROL 0.083% 2.5 MG/3 ML NEB IH (08:50)
== END 2024-07-14 23:59 | disposition home or self-care (01) ==
LOC: RAD 06:56
PROVIDERS: PCP Nurse Practitioner Family; Visit Provider Internal Medicine Pulmonary Disease
DX: J84.9 Interstitial pulmonary disease, unspecified (principal); R06.09 Other forms of dyspnea
CPT/HCPCS: 71250; 94060; 94618; 94640; 94726; 94729; J7613

== ENCOUNTER 2024-08-14 12:01 | Outpatient (CLI) | payer MEDICARE, SELFPAY ==
[2024-08-14 12:36] LABS: Basophils # 0.1 K/mm3 (0-0.2); Eosinophils # 0.4 K/mm3 (0.0-0.4); Eosinophils % 2.8 % (0.1-12.0); Hemoglobin 12.7 g/dL (12.2-16.2); Lymphocytes # 4.2 K/mm3 (0.7-4.5); Lymphocytes % 33.9 % (10-50); Mean Corpuscular Hemoglobin 30.4 pg (27.0-31.2); Monocytes # 0.8 K/mm3 (0.1-1.0); Monocytes % 6.4 % (1.7-9.3); Neutrophils # 6.9 K/mm3 (1.8-7.8); Neutrophils % 55.7 % (37.0-80.0); Platelet Count 368 K/mm3 (142-424); Red Blood Count 4.18 M/mm3 (4.20-5.40); Red Cell Distribution Width 15.8 % (11.5-17.5); White Blood Count 12.4 K/mm3 (4.8-10.8)
[2024-08-14 13:00] LABS: Alanine Aminotransferase 16 U/L (12-78); Albumin Level 4.2 g/dl (3.5-5.0); Alkaline Phosphatase 109 U/L (38-126); Anion Gap 13.3 mEq/L (5-15); Aspartate Amino Transferase 22 U/L (14-36); Bilirubin,Direct 0.3 mg/dl (0.0-0.4); Bilirubin,Total 0.3 mg/dl (0.2-1.3); Blood Urea Nitrogen 7 mg/dl (7-17); Calcium 8.9 mg/dl (8.4-10.2); Carbon Dioxide 30 mmol/L (22.0-30.0); Chloride 101 mmol/L (98-107); Chol/HDL Ratio 3.9 (1-3.5); Cholesterol 212 mg/dl (140-200); Estimated Glomerular Filt Rate 62 ml/min (>60); GFR (African American) 76 ML/MIN (>60); Glucose 133 mg/dl (74-100); HDL Cholesterol 54 mg/dl (40-60); Potassium 4.3 mmoL/L (3.5-5.1); Sodium 140 mmol/L (136-145); Total Protein,Serum 6.8 g/dl (6.3-8.2); Triglycerides 299 mg/dl (30-150); VLDL Cholesterol 60 mg/dL (0-40)
[2024-08-14 13:12] LABS: NT Pro Brain Natriuretic Pep. 970 pg/mL (0-125)
[2024-08-14 13:17] LABS: Free T4 (Free Thyroxine) 0.93 ng/dl (0.78-2.19)
[2024-08-14 13:18] LABS: Troponin I < 0.01 ng/ml (0.00-0.034)
[2024-08-14 13:30] LABS: Thyroid Stimulating Hormone 5.78 uIU/mL (0.465-4.68)
[2024-08-15 15:11] LABS: Albumin 3.7 g/dL (2.9-4.4); Alpha-1-Globulin 0.2 g/dL (0.0-0.4); Alpha-2-Globulin 0.9 g/dL (0.4-1.0); Protein, Total 7.1 g/dL (6.0-8.5)
[2024-08-15 16:28] LABS: Immunoglobulin A, Qn 388 mg/dL (87-352); Immunoglobulin G, Qn 1031 mg/dL (586-1602); Immunoglobulin M, Qn 16 mg/dL (26-217)
[2024-08-15 17:33] LABS: Free Kappa Lt Chains 39.3 mg/L (3.3-19.4); Free Lambda Lt Chains 25.3 mg/L (5.7-26.3)
[2024-08-18 15:10] LABS: Albumin, U 32.8 % (.); Alpha-1-Globulin, U 4.2 % (.); Alpha-2-Globulin, U 11.4 % (.); Beta Globulin, U 29.6 % (.); M-Spike, % Not Observed % (Not Observed); Protein,Total,Urine 13.7 mg/dL (Not Estab.)
[2024-08-25 16:11] LABS: PDF SCANNED IMAGE
[2024-08-25 16:13] LABS: PDF: SCANNED IMAGE
== END 2024-08-14 23:59 | disposition home or self-care (01) ==
LOC: LAB 12:03
PROVIDERS: PCP Nurse Practitioner Family; Visit Provider Nurse Practitioner Family
DX: R60.9 Edema, unspecified (principal); I50.30 Unspecified diastolic (congestive) heart failure; I10 Essential (primary) hypertension; R06.09 Other forms of dyspnea; I50.9 Heart failure, unspecified; I21.4 Non-ST elevation (NSTEMI) myocardial infarction; E03.9 Hypothyroidism, unspecified; I51.89 Other ill-defined heart diseases; E11.69 Type 2 diabetes mellitus with other specified complication; E66.9 Obesity, unspecified; I25.10 Atherosclerotic heart disease of native coronary artery without angina pectoris; E78.5 Hyperlipidemia, unspecified; E07.9 Disorder of thyroid, unspecified; N28.9 Disorder of kidney and ureter, unspecified
CPT/HCPCS: 36415; 80048; 80061; 80076; 82784; 83880; 83883; 84155; 84156; 84165; 84166; 84439; 84443; 84484; 85025; 86334; 86335

== ENCOUNTER 2025-07-01 18:14 | Observation (INO) | payer MEDICARE, SELFPAY ==
[2025-07-01] VITALS (7 sets, daily range): BP systolic 105–138; BP diastolic 74–95; PULSE 91–106; RESP 13–21; TEMP 36.8; O2SAT 91–95; BMI 40.4
--- NOTE | 2025-07-01 18:20 | ECG_ITS ---
APPROVED REPORT Exam: Resting ECG HR:101 bpm ECG Measurements Heart Rate 101 AXES MS 198 P 75 QRSd 102 QRS -68 QT 299 T 76 QTc 357 Conclusion SINUS TACHYCARDIA INCOMPLETE RIGHT BUNDLE BRANCH BLOCK [90+ ms QRS DURATION, TERMINAL R IN V1/V2, 40+ ms S IN I/aVL/V4/V5/V6] LEFT ANTERIOR FASCICULAR BLOCK [QRS AXIS <= -45, QR IN I, RS IN II] NONSPECIFIC T-WAVE ABNORMALITY ABNORMAL ECG UNCONFIRMED REPORT Electronically signed by : MASOOD CRUZ, 07/02/2025 06:39:00
--- NOTE | 2025-07-01 18:24 | CT_ITS ---
PROCEDURE INFORMATION: Exam: CTA Chest With Contrast Exam date and time: 07/01/2025 7:51 PM Age: 69 years old Clinical indication: Shortness of breath; Additional info: Shortness of air, chest pain, worsening o2 require TECHNIQUE: Imaging protocol: Computed tomographic angiography of the chest with contrast. Exam focused on the arteries. 3D rendering (Not supervised by radiologist): MIP and/or 3D reconstructed images were created by the technologist. Radiation optimization: All CT scans at this facility use at least one of these dose optimization techniques: automated exposure control; mA and/or kV adjustment per patient size (includes targeted exams where dose is matched to clinical indication); or iterative reconstruction. Contrast material: ISOVUE; Contrast volume: 70 ml; Contrast route: INTRAVENOUS (IV); COMPARISON: CT ANGIO CHEST PE PROTOCOL 12/31/2023 8:53 AM FINDINGS: Pulmonary arteries: No central or segmental pulmonary arterial intraluminal filling defects identified. Aorta: Atherosclerotic calcification of aorta without aneurysm or obvious dissection. Lungs: Poorly defined perihilar interstitial ground-glass opacities. Similar underlying mild bronchiectasis and interstitial prominence of both upper lobes. Pleural spaces: Unremarkable. No pneumothorax. No pleural effusion. Heart: Unremarkable. No cardiomegaly. No pericardial effusion. Coronary arteries: Atherosclerotic calcification of left anterior descending coronary artery. Lymph nodes: Unremarkable. No enlarged lymph nodes. Bones/joints: Unremarkable. No acute fracture. Soft tissues: Unremarkable. IMPRESSION: 1. No central or segmental pulmonary arterial embolism identified. 2. CHF/pulmonary edema.
--- NOTE | 2025-07-01 18:25 | CT_ITS ---
PROCEDURE INFORMATION: Exam: CT Abdomen And Pelvis With Contrast Exam date and time: 07/01/2025 7:51 PM Age: 69 years old Clinical indication: Abdominal pain; Additional info: Abd pain nausea vomiting TECHNIQUE: Imaging protocol: Computed tomography of the abdomen and pelvis with contrast. 3D rendering (Not supervised by radiologist): MIP and/or 3D reconstructed images were created by the technologist. Radiation optimization: All CT scans at this facility use at least one of these dose optimization techniques: automated exposure control; mA and/or kV adjustment per patient size (includes targeted exams where dose is matched to clinical indication); or iterative reconstruction. Contrast material: ISOVUE; Contrast volume: 70 ml; Contrast route: IV; COMPARISON: CT ABDOMEN PELVIS WO CON 12/30/2023 12:42 PM FINDINGS: Lungs: Patchy ground-glass opacities in visualized lungs. Liver: Fatty infiltration. Measures 22 cm. No mass. Gallbladder and biliary ducts: Surgically absent gallbladder without biliary ductal dilatation. Pancreas: Unremarkable. No ductal dilation. Spleen: Unremarkable. No splenomegaly. Adrenal glands: Unremarkable. No mass. Kidneys and ureters: No nephroureterolithiasis or hydroureter. Stomach and bowel: Nonobstructive fluid-filled small bowel loops. Appendix: No evidence of appendicitis. Intraperitoneal space: Unremarkable. No free air. No significant fluid collection. Vasculature: Inferior vena cava filter grossly in place. Lymph nodes: Unremarkable. No enlarged lymph nodes. Urinary bladder: Unremarkable as visualized. Reproductive: Unremarkable as visualized. Bones/joints: Chronic T12 vertebral body height loss. No acute findings. Soft tissues: Unremarkable. IMPRESSION: 1. Nonobstructive fluid-filled small bowel loops. Correlate for low-grade enteritis symptoms. 2. Hepatomegaly with fatty infiltration. 3. CHF/pulmonary edema versus infiltration. COMMENTS: For patients with an IVC filter, recommend assessment for a management plan for the patient's IVC filter. If there is no established management plan, recommend referral to an interventional clinician on a nonemergent basis for evaluation.
--- NOTE | 2025-07-01 18:25 | XR_ITS ---
PROCEDURE INFORMATION: Exam: XR Chest Exam date and time: 07/01/2025 7:56 PM Age: 69 years old Clinical indication: Shortness of breath; Additional info: SOA and cp TECHNIQUE: Imaging protocol: Radiologic exam of the chest. Views: 1 view. COMPARISON: CT ANGIO CHEST PE PROTOCOL 07/01/2025 7:51 PM FINDINGS: Lungs: Irregular perihilar ground-glass ground-glass opacities. Pleural spaces: Unremarkable. No pleural effusion. No pneumothorax. Heart/Mediastinum: Unremarkable. No cardiomegaly. Bones/joints: Unremarkable. IMPRESSION: Perihilar ground-glass opacities. Query CHF/pulmonary edema symptoms.
--- NOTE | 2025-07-01 18:27 | [facility].EDCP ---
Discharge Plan Disposition Patient Disposition: Admitted Condition: Good Clinical Impressions Clinical Impression: Acute exacerbation of CHF (congestive heart failure), Pneumonia, Hypoxia Discharge ED Provider: Olena Banegas HPI <ADAM Damian - Last Filed: 07/01/25 22:16> General Chief Complaint: Chest Pain Stated Complaint: chest pain, SOA Time Seen by Provider: 07/01/25 18:24 Mode of Arrival: EMS Source of Information: Patient Limitations: No Limitations History of Present Illness HPI narrative: 69-year-old female presents to the emergency department via EMS for a 2 to 3-day history of gradually worsening chest pain and shortness of breath, patient states the chest pain is substernal nonradiating, patient states her pain is currently a 6 or 7 out of 10, she is had 4 nitroglycerin today, as well as her normal dual antiplatelet therapy at home, she was given 2 additional nitroglycerin and route, when asking the patient why she delayed in seeking care as she has had ongoing worsening chest pain for the last 2 days, patient states I just did not want to come . Patient denies any fever chills cough congestion, admits to nausea vomiting and abdominal pain, denies any constipation diarrhea denies any urinary type symptomatology, denies any hematuria melena hematochezia or hematemesis, patient denies any tobacco use, no alcohol use, no other drug use, other past medical history is consistent with coronary artery disease status post stent placements, HFpEF, T2DM, diabetic gastroparesis, obesity, restrictive/interstitial lung disease, hypertension, hyperlipidemia, chronic pain syndrome, hypothyroidism, GERD, hypothyroidism, data deficient history of intermission uterine cancer, day deficient history of pancreatic pseudocyst, initial triage vitals noted for tachycardia, SpO2 is around 96%, on 3 L nasal cannula patient is at home on baseline 2 L nasal cannula. Please note that above description of symptoms, in this electronic medical record under categorization of recalled from ER triage doctor by RN are reflective of an initial nursing assessment, however, is not reflective of my full history and physical exam that was personally taken and clarified. Consequentially, this preceding description of symptoms, which may include the patient's categorized chief complaint in the EMR, do not reflect my personal clinical impression, and the ultimate description of history of present illness and patient stated complaints should be deferred to this section of the note. Unless stated otherwise or congruent with this section of the note, additional signs, symptoms, or incongruence should be interpreted as inaccurate with my clinical impression. MD complaint: chest pain Onset (ago): day(s) Related Data Home Medications ?Medication ?Instructions ?Recorded ?Confirmed aspirin 81 mg chewable tablet 81 mg PO DAILY 11/27/19 08/21/24 gabapentin 800 mg tablet 800 mg PO QID fibromyalgia pain 11/27/19 08/21/24 levothyroxine 50 mcg tablet 50 mcg PO DAILY thyroid 11/27/19 08/21/24 methadone 10 mg tablet 10 mg PO 0600,1200,1800,2359 11/27/19 08/21/24 fibromyalgia pain ondansetron HCl 8 mg tablet 8 mg PO TIDP PRN Nausea 11/27/19 08/21/24 pantoprazole 40 mg tablet,delayed 40 mg PO DAILY 11/28/19 08/21/24 release clopidogrel 75 mg tablet 75 mg PO DAILY 07/07/22 08/21/24 empagliflozin 25 mg tablet 25 mg PO DAILY 07/07/22 08/21/24 (Jardiance) albuterol sulfate 90 mcg/actuation 2 puff inhalation Q4HP PRN 12/02/23 08/21/24 aerosol inhaler (Ventolin HFA) Shortness Of Breath bupropion HCl 150 mg 24 hr tablet, 150 mg PO DAILY 12/02/23 08/21/24 extended release ergocalciferol (vitamin D2) 1,250 50,000 unit PO WEEKLY Supplement 12/02/23 08/21/24 mcg (50,000 unit) capsule (Vitamin D2) escitalopram oxalate 20 mg tablet 20 mg PO DAILY 12/02/23 08/21/24 fluticasone propionate 50 1 spray intranasal BID ALLERGIES 12/02/23 08/21/24 mcg/actuation nasal spray,suspension guaifenesin 600 mg tablet, 600 mg PO Q12H PRN Cough 12/02/23 08/21/24 extended release 12 hr insulin aspart U-100 100 unit/mL 10 sliding scale dose SQ TIDWMEAL 12/02/23 08/21/24 (3 mL) subcutaneous pen (Novolog Diabetes FlexPen U-100 Insulin aspart) magnesium oxide 400 mg PO DAILY Supplement 12/02/23 08/21/24 nitroglycerin 0.4 mg sublingual 0.4 mg sublingual Q5MINP PRN Chest 12/02/23 08/21/24 tablet Pain insulin aspart U-100 100 unit/mL 1 sliding scale dose SQ 08/11/24 08/21/24 subcutaneous solution (Novolog USEASDIRECTD U-100 Insulin aspart) insulin glargine 100 unit/mL 45 unit SQ DAILY 08/11/24 08/21/24 subcutaneous solution (Lantus U-100 Insulin) bisoprolol fumarate 5 mg tablet 5 mg PO DAILY High Blood Pressure 08/14/24 08/21/24 bumetanide 1 mg tablet 2 mg PO DAILY 08/14/24 08/21/24 Previous Rx's ?Medication ?Instructions ?Recorded potassium chloride 20 mEq 40 meq (2 x 20 mEq) PO BID 3 days 01/01/24 tablet,extended #12 tabs release(part/cryst) (Klor-Con M) mometasone-formoterol HFA 100 2 puff inhalation BID 90 days #13 08/11/24 mcg-5 mcg/actuation aerosol grams inhaler (Dulera) sacubitril 24 mg-valsartan 26 mg 1 tab PO BID #60 tabs 08/14/24 tablet (Entresto) atorvastatin 80 mg tablet 80 mg PO DAILY #90 tabs 08/15/24 spironolactone 25 mg tablet See Rx Instructions .Route 11/19/24 .COMPLEX #90 tabs Allergies Allergy/AdvReac Type Severity Reaction Status Date / Time Cephalosporins Allergy Unknown Verified 08/21/24 10:17 allergy reaction meperidine Allergy Unknown Verified 08/21/24 10:17 allergy reaction NSAIDS (Non-Steroidal Allergy Unknown Verified 08/21/24 10:17 Anti-Inflamma allergy reaction pregabalin Allergy Verified 08/21/24 10:17 Sulfa (Sulfonamide Allergy Unknown Verified 08/21/24 10:17 Antibiotics) allergy reaction sumatriptan Allergy Verified 08/21/24 10:17 tizanidine Allergy Verified 08/21/24 10:17 enoxaparin (From Lovenox) AdvReac Unknown Verified 08/21/24 10:17 allergy reaction nalbuphine AdvReac Unknown Verified 08/21/24 10:17 allergy reaction promethazine AdvReac Unknown Verified 08/21/24 10:17 allergy reaction PFSH <ADAM Damian - Last Filed: 07/01/25 22:16> [facility] Disclaimer: The information contained in this section may have been updated after the patient was seen, as this information can be updated by other users. Medical History HLD (hyperlipidemia) HTN (hypertension) Edema (HFpEF) heart failure with preserved ejection fraction Chronic respiratory failure with hypoxia Dyspnea on exertion ILD (interstitial lung disease) Fibrosis of lung Lupus disease of lung Acute and chronic respiratory failure with hypoxia History of ITP History of lupus Rotator cuff impingement syndrome History of anemia History of left heart catheterization (LHC) Cataract Kidney disease Thyroid disease Asthma Anemia SVT (supraventricular tachycardia) MRSA (methicillin resistant Staphylococcus aureus) HTN (hypertension) GI bleed Gastroparesis GERD (gastroesophageal reflux disease) DVT (deep venous thrombosis) Arrhythmia Endometrial cancer Heart attack Oxygen dependent COPD (chronic obstructive pulmonary disease) Diabetes Addisons disease Surgical History History of splenectomy History of esophagogastroduodenoscopy (EGD) History of carpal tunnel surgery History of Amado fundoplication History of right heart catheterization (RHC) History of hysterectomy History of colonoscopy History of cholecystectomy Family History Other Family history of anemia Family history of asthma Family history of bleeding disorder Family history of cancer Family history of diabetes mellitus Family history of kidney disease Family history of thyroid disease Social History Smoking Status: Never smoker alcohol intake: never current occupational status: retired Travel in the last 8 weeks?: None household members: none housing: house lives independently: Yes marital status: education level: college diet: diabetic caffeine: Yes Have you lived/traveled outside [place] in past 30 days?: No Contact w/someone who lives/traveled outside [place] past 30 days?: No Exposure to someone with infectious disease in past 14 days?: No Do you have a fever (greater than 100.4 F or 38 C)?: No Have you tested positive for COVID-19?: No Exposed to someone with COVID-19 in past 14 days?: No Do you have a sore throat?: No Do you have a cough?: No Do you have any weakness?: No Do you have any diarrhea?: No Are you experiencing any unusual bleeding?: No Do you have any muscle aches/pain?: No Do you have any abdominal pain?: No Are you experiencing loss of taste or smell?: No Other Medical History Have you received the Flu Vaccine for this season: No Have you received the Pneumonia Vaccine: Yes <ADAM Damian - Last Filed: 07/01/25 22:16> ROS Obtained: Yes All systems reviewed & no additional complaints except as documented Physical Exam <ADAM Damian - Last Filed: 07/01/25 22:16> General General appearance: alert and in no apparent distress Comment: Ill-appearing female Head Head exam: atraumatic and normocephalic Eye Eye exam: Present normal appearance, PERRL and EOMI Neck Neck exam: Present full ROM; Absent meningismus Chest Chest inspection: Present normal inspection Respiratory Respiratory exam: Present wheezes and other (Mild to moderate wheezes noted throughout bilateral lung lui, mild crackles noted in bilateral lung lui); Absent respiratory distress, stridor, accessory muscle use or prolonged expiratory phase Cardiovascular Cardiovascular exam: Present normal rhythm and other (Pulses equal and symmetric in bilateral upper and lower extremities) Abdominal Exam Abdominal exam: Present tenderness; Absent distention, rebound or rigidity Abdominal tenderness: Present diffuse and mild Extremities Exam Extremities exam: Present other (Area of bandage on the patient's pretibial region palpate states she department leg , otherwise no pitting edema, no erythema, no extremities to command, otherwise neurovasc intact); Absent edema Neurological Exam Neurological exam: Present alert Psychiatric Psychiatric exam: Present normal affect Skin Skin exam: Present warm and dry HEART Score <ADAM Damian - Last Filed: 07/01/25 22:16> HEART Score HEART Score assessment performed?: Yes HEART Score: 3 <Olena Banegas DO - Last Filed: 07/02/25 00:59> HEART Score HEART Score: 4 Critical Care <ADAM Damian - Last Filed: 07/01/25 22:16> Critical Care Time Critical Care Time: No Medical Decision Making <ADAM Damian - Last Filed: 07/01/25 22:16> Medical Records Medical records reviewed: Yes I reviewed the patient's medical records. Prasad Inquiry Pt receiving controlled substance: Yes Prasad was queried for this patient: No Reason not queried -: Emergent pt cond-no time Risks and benefits of using a controlled substance: were discussed with pt by me Vital Signs Vital Signs: 07/01/25 18:30 07/01/25 18:31 07/01/25 18:31 Temperature 98.3 F 98.3 F Temperature Source Oral Pulse Rate 98 H 106 H Pulse Rate [Right] 106 H Respiratory Rate 13 20 20 Blood Pressure 132/95 H 105/82 L Blood Pressure [Right Arm] 105/82 L Blood Pressure Mean [Right Arm] 89 02 Sat by Pulse Oximetry 95 95 95 Oxygen Delivery Method Nasal Cannula Oxygen Flow Rate (LPM) 3 07/01/25 19:00 07/01/25 19:21 07/01/25 20:00 Temperature Temperature Source Pulse Rate 91 H 93 H Pulse Rate [Right] Respiratory Rate 15 16 15 Blood Pressure 126/78 126/78 120/75 Blood Pressure [Right Arm] Blood Pressure Mean [Right Arm] 02 Sat by Pulse Oximetry 94 L Oxygen Delivery Method Oxygen Flow Rate (LPM) 07/01/25 20:38 07/01/25 23:01 Temperature Temperature Source Pulse Rate 96 H 93 H Pulse Rate [Right] Respiratory Rate 16 21 Blood Pressure 122/74 138/87 Blood Pressure [Right Arm] Blood Pressure Mean [Right Arm] 02 Sat by Pulse Oximetry 91 L 93 L Oxygen Delivery Method Nasal Cannula Oxygen Flow Rate (LPM) 2 Lab Data Lab results reviewed: Yes I reviewed the patient's lab results. Labs: Lab Results 07/01/25 19:00: WBC 16.8 H, RBC 3.69 L, Hgb 11.1 L, Hct 36.5 L, MCV 98.9, MCH 30.1, MCHC 30.4 L, RDW 14.3, Plt Count 400, MPV 10.9 H, Neut % (Auto) 66.2, Lymph % (Auto) 19.5, [facility] % (Auto) 8.4, Eos % (Auto) 5.0, Baso % (Auto) 0.4, Neut # (Auto) 11.1 H, Lymph # (Auto) 3.3, [facility] # (Auto) 1.4 H, Eos # (Auto) 0.9 H, Baso # (Auto) 0.1, PT 11.0, INR 0.99, VBG pH 7.32, VBG pCO2 56.7 H, VBG pO2 65.2 H, VBG HCO3 28.4, VBG Total CO2 30.2 H, VBG O2 Saturation 92.3 H, VBG Base Excess 2.3, VBG Lactic Acid 1.0, Sodium 137, Potassium 4.0, Chloride 100, Carbon Dioxide 32 H, Anion Gap 9.0, BUN 8, Creatinine 0.80, Estimated Creat Clear 78, Estimated GFR 72, Est GFR ( Amer) 87, Glucose 216 H, Lactate 0.8, Calcium 8.7, Magnesium 1.4 L, Total Bilirubin 0.3, AST 23, ALT 17, Alkaline Phosphatase 120, Troponin I < 0.01, NT-Pro-B Natriuret Pep 252 H, Total Protein 7.3, Albumin 3.9, Globulin 3.4 H, Albumin/Globulin Ratio 1.1, Lipase 59 07/01/25 21:17: Troponin I < 0.01 07/01/25 19:00 07/01/25 19:00 Response Orders (Tests/Meds): ED MEDICATIONS Generic Name Dose Route Start Last Admin Trade Name Freq PRN Reason Stop Dose Admin Acetaminophen 650 mg 07/02/25 00:23 Acetaminophen 325mg Tab PO 08/01/25 00:22 Q4HP PRN Fever or Mild Pain (1-3) Heparin Sodium (Porcine) 5,000 unit 07/02/25 09:00 Heparin Sodium 5,000 Unit/Ml Vial SUBCUT 08/01/25 08:59 TID DANTE Levofloxacin/Dextrose 750 mg in 150 mls @ 100 mls/hr 07/02/25 00:15 07/02/25 00:48 Levofloxacin 750mg/150ml Premix IV 07/12/25 00:14 100 mls/hr Q24H DANTE Administration Ondansetron HCl 4 mg 07/02/25 00:23 Ondansetron 4mg/2ml Vial IV 08/01/25 00:22 Q8HP PRN Nausea Sodium Chloride 10 ml 07/01/25 19:49 07/01/25 19:50 Sodium Chloride 0.9% 10ml Syr (Rad Only) IV 07/31/25 19:48 10 ml NEEDED PRN Administration Maintain IV Site Discontinued Medications Generic Name Dose Route Start Last Admin Trade Name Freq PRN Reason Stop Dose Admin Iopamidol 70 ml 07/01/25 19:49 07/01/25 19:50 Iopamidol-370 (76%);100ml Bottle IV 07/01/25 19:50 70 ml ONCE ONE Administration Morphine Sulfate 4 mg 07/01/25 18:26 07/01/25 19:37 Morphine 4mg/Ml Syringe IV 07/01/25 18:27 4 mg ONCE ONE Administration Ondansetron HCl 4 mg 07/01/25 18:26 07/01/25 19:38 Ondansetron 4mg/2ml Vial IV 07/01/25 18:27 4 mg ONCE ONE Administration Sodium Chloride 40 ml 07/01/25 19:49 07/01/25 19:50 0.9 % Sodium Chloride 50 Ml Vial IV 07/01/25 19:50 40 ml ONCE ONE Administration ORDERS Category Date Time Status CT abdomen pelvis w con Stat Cat Scan 07/01/25 18:[address] angio chest PE protocol Stat Cat Scan 07/01/25 18:24 Completed XR chest portable Stat Exams 07/01/25 18:25 Completed Basic Metabolic Panel AMLAB Lab 07/02/25 06:00 Ordered Basic Metabolic Panel AMLAB Lab 07/03/25 06:00 Ordered Basic Metabolic Panel AMLAB Lab 07/04/25 06:00 Ordered Complete Blood Count Auto Diff AMLAB Lab 07/02/25 06:00 Ordered Complete Blood Count Auto Diff AMLAB Lab 07/03/25 06:00 Ordered Complete Blood Count Auto Diff AMLAB Lab 07/04/25 06:00 Ordered Complete Blood Count Auto Diff Stat Lab 07/01/25 19:00 Completed Comprehensive Metabolic Panel Stat Lab 07/01/25 19:00 Completed Lactic Acid Stat Lab 07/01/25 19:00 Completed Lipase Stat Lab 07/01/25 19:00 Completed Magnesium Stat Lab 07/01/25 19:00 Completed NT Pro Brain Natriuretic Pep. Stat Lab 07/01/25 19:00 Completed PT INR [Prothrombin Time INR] Stat Lab 07/01/25 19:00 Completed Troponin I Q3H Lab 07/01/25 21:17 Completed Troponin I Q3H Lab 07/02/25 00:30 Ordered Troponin I Stat Lab 07/01/25 19:00 Completed Urinalysis and Microscopic Stat Lab 07/02/25 00:45 Received VBG [Venous Blood Gas] Stat RT 07/01/25 19:00 Completed MDM Narrative Medical Decision Narrative: 69-year-old female presents the emergency department with shortness of breath chest pain for several days, see HPI for detail past medical history, differential diagnose include but not limited to, ACS, cardiac arrhythmia, electrolyte disturbance, PE, costochondritis, pneumonia, COPD exacerbation, CHF exacerbation, pneumothorax, gastritis, GERD, colitis, ileitis, diabetic gastroparesis among others. Will obtain basic laboratory studies, EKG, lactic acid level, lipase level magnesium level, VBG, proBNP, troponin, coags, UA, chest x-ray, CT ab pelvis with contrast, CTA chest with and without contrast PE protocol, 4 mg IV Zofran and 4 mg IV morphine given for pain and nausea. CBC is notable for leukocytosis 16.8, erythrocyte pi?a 3.69, hemoglobin hematocrit are decreased 11.1/36.5 respectively, appears to be in line with the patient's baseline anemia VBG is notable for normal pH, pCO2 is mildly elevated 56.7, bicarb within normal limits, no venous lactic acid. Coags within normal limits CMP notable for normal lactic acid level, hypomagnesia that is minimal at 1.4, lipase in normal limits. I reviewed the patient's CTA chest with and without contrast PE protocol, along with the corresponding radiologic report, no central or segmental pulmonary arterial emboli identified, CHF/pulmonary edema. I reviewed the patient's chest x-ray along with corresponding radiologic report, perihilar ground glass opacities, query CHF/pulmonary edema symptoms. Will give IV azithromycin 500 mg, for ground glass opacities. I discussed this patient's case with the attending patient Dr. Banegas at shift change, she will be assuming the patient's care/workup, disposition is pending discussion with hospitalist and CT abdomen pelvis with contrast radiology report, for potential admission. <Olena Banegas, DO - Last Filed: 07/02/25 00:59> Vital Signs Vital Signs: 07/01/25 18:30 07/01/25 18:31 07/01/25 18:31 Temperature 98.3 F 98.3 F Temperature Source Oral Pulse Rate 98 H 106 H Pulse Rate [Right] 106 H Respiratory Rate 13 20 20 Blood Pressure 132/95 H 105/82 L Blood Pressure [Right Arm] 105/82 L Blood Pressure Mean [Right Arm] 89 02 Sat by Pulse Oximetry 95 95 95 Oxygen Delivery Method Nasal Cannula Oxygen Flow Rate (LPM) 3 07/01/25 19:00 07/01/25 19:21 07/01/25 20:00 Temperature Temperature Source Pulse Rate 91 H 93 H Pulse Rate [Right] Respiratory Rate 15 16 15 Blood Pressure 126/78 126/78 120/75 Blood Pressure [Right Arm] Blood Pressure Mean [Right Arm] 02 Sat by Pulse Oximetry 94 L Oxygen Delivery Method Oxygen Flow Rate (LPM) 07/01/25 20:38 07/01/25 23:01 Temperature Temperature Source Pulse Rate 96 H 93 H Pulse Rate [Right] Respiratory Rate 16 21 Blood Pressure 122/74 138/87 Blood Pressure [Right Arm] Blood Pressure Mean [Right Arm] 02 Sat by Pulse Oximetry 91 L 93 L Oxygen Delivery Method Nasal Cannula Oxygen Flow Rate (LPM) 2 Lab Data Labs: Lab Results 07/01/25 19:00: WBC 16.8 H, RBC 3.69 L, Hgb 11.1 L, Hct 36.5 L, MCV 98.9, MCH 30.1, MCHC 30.4 L, RDW 14.3, Plt Count 400, MPV 10.9 H, Neut % (Auto) 66.2, Lymph % (Auto) 19.5, [facility] % (Auto) 8.4, Eos % (Auto) 5.0, Baso % (Auto) 0.4, Neut # (Auto) 11.1 H, Lymph # (Auto) 3.3, [facility] # (Auto) 1.4 H, Eos # (Auto) 0.9 H, Baso # (Auto) 0.1, PT 11.0, INR 0.99, VBG pH 7.32, VBG pCO2 56.7 H, VBG pO2 65.2 H, VBG HCO3 28.4, VBG Total CO2 30.2 H, VBG O2 Saturation 92.3 H, VBG Base Excess 2.3, VBG Lactic Acid 1.0, Sodium 137, Potassium 4.0, Chloride 100, Carbon Dioxide 32 H, Anion Gap 9.0, BUN 8, Creatinine 0.80, Estimated Creat Clear 78, Estimated GFR 72, Est GFR ( Amer) 87, Glucose 216 H, Lactate 0.8, Calcium 8.7, Magnesium 1.4 L, Total Bilirubin 0.3, AST 23, ALT 17, Alkaline Phosphatase 120, Troponin I < 0.01, NT-Pro-B Natriuret Pep 252 H, Total Protein 7.3, Albumin 3.9, Globulin 3.4 H, Albumin/Globulin Ratio 1.1, Lipase 59 07/01/25 21:17: Troponin I < 0.01 Response Orders (Tests/Meds): ED MEDICATIONS Generic Name Dose Route Start Last Admin Trade Name Félix PRN Reason Stop Dose Admin Acetaminophen 650 mg 07/02/25 00:23 Acetaminophen 325mg Tab PO 08/01/25 00:22 Q4HP PRN Fever or Mild Pain (1-3) Heparin Sodium (Porcine) 5,000 unit 07/02/25 09:00 Heparin Sodium 5,000 Unit/Ml Vial SUBCUT 08/01/25 08:59 TID DANTE Levofloxacin/Dextrose 750 mg in 150 mls @ 100 mls/hr 07/02/25 00:15 07/02/25 00:48 Levofloxacin 750mg/150ml Premix IV 07/12/25 00:14 100 mls/hr Q24H DANTE Administration Ondansetron HCl 4 mg 07/02/25 00:23 Ondansetron 4mg/2ml Vial IV 08/01/25 00:22 Q8HP PRN Nausea Sodium Chloride 10 ml 07/01/25 19:49 07/01/25 19:50 Sodium Chloride 0.9% 10ml Syr (Rad Only) IV 07/31/25 19:48 10 ml NEEDED PRN Administration Maintain IV Site Discontinued Medications Generic Name Dose Route Start Last Admin Trade Name Félix PRN Reason Stop Dose Admin Iopamidol 70 ml 07/01/25 19:49 07/01/25 19:50 Iopamidol-370 (76%);100ml Bottle IV 07/01/25 19:50 70 ml ONCE ONE Administration Morphine Sulfate 4 mg 07/01/25 18:26 07/01/25 19:37 Morphine 4mg/Ml Syringe IV 07/01/25 18:27 4 mg ONCE ONE Administration Ondansetron HCl 4 mg 07/01/25 18:26 07/01/25 19:38 Ondansetron 4mg/2ml Vial IV 07/01/25 18:27 4 mg ONCE ONE Administration Sodium Chloride 40 ml 07/01/25 19:49 07/01/25 19:50 0.9 % Sodium Chloride 50 Ml Vial IV 07/01/25 19:50 40 ml ONCE ONE Administration ORDERS Category Date Time Status CT abdomen pelvis w con Stat Cat Scan 07/01/25 18:[address] angio chest PE protocol Stat Cat Scan 07/01/25 18:24 Completed XR chest portable Stat Exams 07/01/25 18:25 Completed Basic Metabolic Panel AMLAB Lab 07/02/25 06:00 Ordered Basic Metabolic Panel AMLAB Lab 07/03/25 06:00 Ordered Basic Metabolic Panel AMLAB Lab 07/04/25 06:00 Ordered Complete Blood Count Auto Diff AMLAB Lab 07/02/25 06:00 Ordered Complete Blood Count Auto Diff AMLAB Lab 07/03/25 06:00 Ordered Complete Blood Count Auto Diff AMLAB Lab 07/04/25 06:00 Ordered Complete Blood Count Auto Diff Stat Lab 07/01/25 19:00 Completed Comprehensive Metabolic Panel Stat Lab 07/01/25 19:00 Completed Lactic Acid Stat Lab 07/01/25 19:00 Completed Lipase Stat Lab 07/01/25 19:00 Completed Magnesium Stat Lab 07/01/25 19:00 Completed NT Pro Brain Natriuretic Pep. Stat Lab 07/01/25 19:00 Completed PT INR [Prothrombin Time INR] Stat Lab 07/01/25 19:00 Completed Troponin I Q3H Lab 07/01/25 21:17 Completed Troponin I Q3H Lab 07/02/25 00:30 Ordered Troponin I Stat Lab 07/01/25 19:00 Completed Urinalysis and Microscopic Stat Lab 07/02/25 00:45 Received VBG [Venous Blood Gas] Stat RT 07/01/25 19:00 Completed MDM Narrative Medical Decision Narrative: 69-year-old female presents the emergency department with shortness of breath chest pain for several days, see HPI for detail past medical history, differential diagnose include but not limited to, ACS, cardiac arrhythmia, electrolyte disturbance, PE, costochondritis, pneumonia, COPD exacerbation, CHF exacerbation, pneumothorax, gastritis, GERD, colitis, ileitis, diabetic gastroparesis among others. Will obtain basic laboratory studies, EKG, lactic acid level, lipase level magnesium level, VBG, proBNP, troponin, coags, UA, chest x-ray, CT ab pelvis with contrast, CTA chest with and without contrast PE protocol, 4 mg IV Zofran and 4 mg IV morphine given for pain and nausea. CBC is notable for leukocytosis 16.8, erythrocyte pi?a 3.69, hemoglobin hematocrit are decreased 11.1/36.5 respectively, appears to be in line with the patient's baseline anemia VBG is notable for normal pH, pCO2 is mildly elevated 56.7, bicarb within normal limits, no venous lactic acid. Coags within normal limits CMP notable for normal lactic acid level, hypomagnesia that is minimal at 1.4, lipase in normal limits. I reviewed the patient's CTA chest with and without contrast PE protocol, along with the corresponding radiologic report, no central or segmental pulmonary arterial emboli identified, CHF/pulmonary edema. I reviewed the patient's chest x-ray along with corresponding radiologic report, perihilar ground glass opacities, query CHF/pulmonary edema symptoms. I discussed this patient's case with the attending patient Dr. Banegas at shift change, she will be assuming the patient's care/workup, disposition is pending discussion with hospitalist and CT abdomen pelvis with contrast radiology report, for potential admission. CT scan of the abdomen showed no acute pathology. After further discussion with the patient, patient elected to be admitted to the hospital after multiple discussions. Was given IV Levaquin for her pneumonia. Patient was admitted to the hospital for further evaluation and workup of her acute hypoxic respiratory failure likely secondary to her pneumonia as well as CHF.
--- OUTSIDE RECORDS SUMMARY | 2025-07-01 18:54 | XMS_ITS | Clinical Summary ---
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 Name Role Phone Bashir Lombardi MD [ ] Conditions or Problems Problem Name Problem Code Onset Date Status Entry Date Provider Comment Standard Description Annotate OBSTRUCTIVE SLEEP APNEA 51960951 (SNOMED CT) 01/01 Inactive 01/01 Sridevi Bishop Obstructive sleep apnea syndrome LONG-TERM (CURRENT) USE OF ANTICOAGULAN TS 170825721 (SNOMED CT) 07/02 Inactive 07/02 Sridevi Nordan Anticoagulant drug monitoring COPD 79766785 (SNOMED CT) 10/24 Active 10/24 Sridevi Nordan Chronic obstructive pulmonary disease Headache 23474244 (SNOMED CT) 10/24 Active 10/24 Sridevi Nordan Headache Hypoxia 481767287 (SNOMED CT) 10/24 Active 10/24 Sridevi Nordan Hypoxia Pneumonia 772959526 (SNOMED CT) 10/24 Active 10/24 Sridevi Nordan Pneumonia CHRONIC OSTEOMYELITI S RIGHT KNEE M86.669 (ICD-10-CM ) 01/01 Inactive 11/24 Sridevi Dario Other chronic osteomyelitis, unspecified tibia and fibula CHRONIC RIGHT KNEE PAIN M25.569 (ICD-10-CM ) 07/02 Inactive 07/02 Sridevi Nordroselia Pain in unspecified knee PRIMARY HYPERCOAGULA BLE STATE 32501363 (SNOMED CT) 07/02 Inactive 07/02 Sridevi Nordroselia Hypercoagulabil ity state HX OF SPLENECTOMY 505142803 (SNOMED CT) 11/24 Inactive 11/24 Sridevi Bishop H/O splenectomy ANXIETY 995789650 (SNOMED CT) 07/02 Inactive 07/02 Sridevi Edyroselia Anxiety disorder LONG-TERM (CURRENT) USE OF ANTICOAGULAN TS 682220655 (SNOMED CT) 07/02 Removed 07/02 Gisselle W Anticoagulant drug monitoring PRIMARY HYPERCOAGULA BLE STATE 44427303 (SNOMED CT) 07/02 Removed 07/02 Gisselle W Hypercoagulabil ity state COUMADIN THERAPY 055544458 (SNOMED CT) 11/24 Correction 11/24 Gisselle W Warfarin therapy started DM II E11.9 (ICD-10-CM ) 01/01 Active 01/01 Gisselle W Type 2 diabetes mellitus without complications ANXIETY 390141364 (SNOMED CT) 07/02 Removed 07/02 Sheron Patel RN Anxiety disorder CHRONIC RIGHT KNEE PAIN M25.569 (ICD-10-CM ) 07/02 Removed 07/02 Sheron Patel RN Pain in unspecified knee WHEEZING 03536944 (SNOMED CT) 01/01 Resolved 01/01 Sheron Patel RN Wheezing PNEUMONIA 281599574 (SNOMED CT) 01/01 Resolved 01/01 Sheron Paetl RN Pneumonia ACUTE URI 75505308 (SNOMED CT) 01/01 Resolved 01/01 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 OBSTRUCTIVE SLEEP APNEA 38685256 (SNOMED CT) 01/01 Removed 01/01 Gisselle W Obstructive sleep apnea syndrome ACUTE URI 99112996 (SNOMED CT) 01/01 Removed 01/01 Gisselle W Acute upper respiratory infection BORDERLINE DM II E11.9 (ICD-10-CM ) 01/01 Correction 01/01 W Type 2 diabetes mellitus without complications CHRONIC OSTEOMYELITI S RIGHT KNEE M86.669 (ICD-10-CM ) 01/01 Removed 11/24 Gisselle W Other chronic osteomyelitis, unspecified tibia and fibula PNEUMONIA 708055670 (SNOMED CT) 01/01 Removed 01/01 Gisselle W Pneumonia WHEEZING 87348232 (SNOMED CT) 01/01 Removed 01/01 Gisselle W Wheezing RIGHT KNEE INFECTION 682.6 (ICD-9-CM) 11/24 Resolved 11/24 Gisselle W Cellulitis and abscess of leg, except foot CIRRHOSIS OF LIVER WITHOUT MENTION OF ALCOHOL (SNOMED CT) 11/24 Resolved 11/24 Gisselle W Cirrhosis of liver PRIMARY HYPERCOAGULA BLE STATE 59516653 (SNOMED CT) 11/24 Correction 11/24 Gisselle W Hypercoagulabil ity state SECONDARY HYPERCOAGULA BLE STATE 09399842 (SNOMED CT) 11/24 Correction 11/24 Gisselle W Hypercoagulabil ity state CHRONIC OSTEOMYELITI S, LOWER LEG 049657895 (SNOMED CT) 11/24 Correction 11/24 Karina Sanford Chronic osteomyelitis of lower leg RIGHT KNEE INFECTION 682.6 (ICD-9-CM) 11/24 Removed 11/24 Karina Sanford Cellulitis and abscess of leg, except foot LEUKOCYTOSIS 303114369 (SNOMED CT) 11/24 Active 11/24 Karina Sanford Leukocytosis HX OF MRSA Z86.14 (ICD-10-CM ) 11/24 Active 11/24 Karina Sanford Personal history of Methicillin resistant Staphylococcus aureus infection SECONDARY HYPERCOAGULA BLE STATE 75250811 (SNOMED CT) 11/24 Removed 11/24 Karina Sanford Hypercoagulabil ity state PRIMARY HYPERCOAGULA BLE STATE 83591081 (SNOMED CT) 11/24 Removed 11/24 Karina Sanford Hypercoagulabil ity state COUMADIN THERAPY 908680685 (SNOMED CT) 11/24 Removed 11/24 Karina Sanford Warfarin therapy started HX OF SPLENECTOMY 717128101 (SNOMED CT) 11/24 Removed 11/24 Karina Sanford H/O splenectomy CIRRHOSIS OF LIVER WITHOUT MENTION OF ALCOHOL (SNOMED CT) 11/24 Removed 11/24 Karina Sanford Cirrhosis of liver Medications Medication Instructions Start Date Stop Date Generic Name [facility] Provider DOXYCYCLINE HYCLATE 100 MG CAPS DOXYCYCLINE HYCLATE 98942191356 Anetra D Ludmila PROVENTIL HFA 108 (90 Base) MCG/ACT INHALATION AEROSOL SOLUTION ALBUTEROL SULFATE 41052991126 Anetra D Ludmila NYSTATIN OINT NYSTATIN OINT [phone] Anetra D Ludmila NORVASC TABS AMLODIPINE BESYLATE TABS 97739461631 Anetra D Ludmila AMLODIPINE BESYLATE 10 MG TABS AMLODIPINE BESYLATE 13554064654 Anetra D Ludmila VITAMIN B-12 TABS CYANOCOBALAMIN TABS 04725099152 Rola Cruz REQUIP 0.5 MG ORAL TABLET ROPINIROLE HCL 35972304766 Rola Cruz PROTONIX 40 MG PACK PANTOPRAZOLE SODIUM 37666681096 Rola Cruz PREDNISONE 2.5 MG TABS PREDNISONE 59817368916 Rola Cruz PERCOCET 10-325 MG TABS OXYCODONE-ACETAM INOPHEN 73229676946 Rola Cruz AMLODIPINE BESYLATE 10 MG TABS AMLODIPINE BESYLATE 77816303415 Rola Cruz NITROSTAT 0.4 MG SUBL NITROGLYCERIN 72135111889 Rola Villalpandoty NEURONTIN 300 MG CAPS GABAPENTIN 64266626713 Rola Villalpandoty METHADONE HCL TABS METHADONE HCL TABS 01316233113 Rola Villalpandoty LORAZEPAM 0.5 MG TABS LORAZEPAM 56349539181 Rola Cruz LEVOTHYROXINE SODIUM 50 MCG TABS LEVOTHYROXINE SODIUM 45203055702 Rola Cruz LASIX 20 MG TABS FUROSEMIDE 70884006732 Rola Cruz VERAMYST 27.5 MCG/SPRAY NASAL SUSPENSION FLUTICASONE FUROATE 43236656704 Rola Cruz CALCIUM-VITAMIN D CALCIUM-VITAMIN D TABS 54296346370 Rola Cruz CALCITONIN (SALMON) 200 UNIT/ACT SOLN CALCITONIN (SALMON) 57498670693 Rola Villalpandoty ASPIRIN 81 MG ORAL TABLET ASPIRIN 65177952009 Rola Cruz PROTONIX 40 MG PACK PANTOPRAZOLE SODIUM 14821141060 Rola Cruz COUMADIN 3 MG ORAL TABLET WARFARIN SODIUM 25835908543 Rola Cruz ACCUNEB NEBU ALBUTEROL SULFATE NEBU 33545295878 Rola Cruz TESSALON PERLES 100 MG ORAL CAPSULE BENZONATATE 10903470185 Rola Cruz DOXYCYCLINE HYCLATE 100 MG CAPS DOXYCYCLINE HYCLATE 21409525217 Rola Cruz VITAMIN B-12 50 MCG TABS CYANOCOBALAMIN 67747465690 Rola Cruz PROTONIX 40 MG TBEC PANTOPRAZOLE SODIUM 44105522128 Rola Cruz AMLODIPINE BESYLATE TABS AMLODIPINE BESYLATE TABS 25934061853 Rola Cruz PROTONIX 40 MG PACK PANTOPRAZOLE SODIUM 98845040861 Rola Cruz AMLODIPINE BESYLATE 10 MG TABS AMLODIPINE BESYLATE 28014921177 Rola Cruz NITROSTAT 0.4 MG SUBL NITROGLYCERIN 49712509196 Rola Cruz LASIX 20 MG TABS FUROSEMIDE 31378132258 Rola Cruz FLONASE 50 MCG/ACT NASAL SUSPENSION FLUTICASONE PROPIONATE 53539546021 Rola Cruz CALCIDOL 8000 UNIT/ML ORAL SOLUTION ERGOCALCIFEROL 81303780893 Rola Cruz CALCIUM-VITAMIN D CALCIUM-VITAMIN D TABS 87254104517 Rola Cruz PREDNISONE 5 MG TABS take two each morning PREDNISONE 79760109178 Rola Cruz SYNTHROID 100 MCG TABS LEVOTHYROXINE SODIUM 10063349452 Rola Cruz TYLENOL 325 MG TABS ACETAMINOPHEN 87838196085 Rolarosa Villalpandoty REQUIP 0.5 MG ORAL TABLET ROPINIROLE HCL 70747375847 Rola Nancy PERCOCET TABS OXYCODONE-ACETAM INOPHEN TABS 28587177881 Rola Cruz NEURONTIN 300 MG CAPS GABAPENTIN 28552812106 Rola Villalpandoty METHADONE HCL TABS METHADONE HCL TABS 32221660188 Rola Cruz ATIVAN TABS LORAZEPAM TABS 54568985700 Rola Cruz COUMADIN TABLET WARFARIN SODIUM TABS 18807989411 Rola Cruz ASPIR-LOW TABLET DELAYED RELEASE ASPIRIN TBEC 24833713292 Rola Cruz ACCUNEB NEBU ALBUTEROL SULFATE [facility] 54354214236 Anetra D Keys TESSALON PERLES 100 MG ORAL CAPSULE BENZONATATE 16773292558 Anetra D Keys DOXYCYCLINE HYCLATE 100 MG CAPS DOXYCYCLINE HYCLATE 07284284258 Anetra D Keys VITAMIN B-12 50 MCG TABS CYANOCOBALAMIN 71389522213 Anetra D Keys PROTONIX 40 MG TBEC PANTOPRAZOLE SODIUM 06402049988 Anetra D Keys AMLODIPINE BESYLATE TABS AMLODIPINE BESYLATE TABS 43407273173 Anetra D Keys PROTONIX 40 MG PACK PANTOPRAZOLE SODIUM 09714941147 Anetra D Keys AMLODIPINE BESYLATE 10 MG TABS AMLODIPINE BESYLATE 25980012508 Anetra D Keys NITROSTAT 0.4 MG SUBL NITROGLYCERIN 38663775906 Anetra D Keys LASIX 20 MG TABS FUROSEMIDE 25759284075 Anetra D Keys FLONASE 50 MCG/ACT NASAL SUSPENSION FLUTICASONE PROPIONATE 83832091880 Anetra D Keys CALCIDOL 8000 UNIT/ML ORAL SOLUTION ERGOCALCIFEROL 55426493854 Anetra D Keys CALCIUM-VITAMIN D CALCIUM-VITAMIN D TABS 26552647531 Anetra D Keys FLUTICASONE PROPIONATE 50 MCG/ACT SUSP FLUTICASONE PROPIONATE 02845402188 Anetra D Keys PREDNISONE 5 MG TABS take two each morning PREDNISONE 03589213099 Bashir Lombardi MD SYNTHROID 100 MCG TABS LEVOTHYROXINE SODIUM 09660712584 Tamia Palm RN PROTONIX 40 MG TBEC PANTOPRAZOLE SODIUM 33184271329 Tamia Palm RN AMLODIPINE BESYLATE 10 MG TABS AMLODIPINE BESYLATE 31300387671 aTmia Palm RN NITROSTAT 0.6 MG SUBL NITROGLYCERIN 79615292174 Tamia Palm RN LEVOTHROID TABS LEVOTHYROXINE SODIUM TABS 99590508363 Tamia Palm RN LASIX TABS FUROSEMIDE TABS 33408217428 Tamia Palm RN CALCIUM 500 TABLET CALCIUM-MAGNESIU M-VITAMIN D TABS 37391170323 Tamia Ladwig RN TYLENOL 325 MG TABS ACETAMINOPHEN 17722524264 Anetra D Keys REQUIP 0.5 MG ORAL TABLET ROPINIROLE HCL 05356162348 Anetra D Keys PROTONIX 40 MG TBEC PANTOPRAZOLE SODIUM 24868191057 Anetra D Keys PERCOCET TABS OXYCODONE-ACETAM INOPHEN TABS 85985977217 Anetra D Keys AMLODIPINE BESYLATE 10 MG TABS AMLODIPINE BESYLATE 30500008370 Anetra D Keys NITROSTAT 0.6 MG SUBL NITROGLYCERIN 00165391297 Anetra D Keys NEURONTIN 300 MG CAPS GABAPENTIN 08493579633 Anetra D Keys METHADONE HCL TABS METHADONE HCL TABS 60318548613 Anetra D Keys ATIVAN TABS LORAZEPAM TABS 89907420038 Anetra D Keys LEVOTHROID TABS LEVOTHYROXINE SODIUM TABS 16368228940 Anetra D Keys LASIX TABS FUROSEMIDE TABS 53944124577 Anetra D Keys FLUTICASONE PROPIONATE 50 MCG/ACT SUSP FLUTICASONE PROPIONATE 75340886247 Anetra D Keys COUMADIN TABLET WARFARIN SODIUM TABS 77325950078 Anetra D Keys CALCIUM 500 TABLET CALCIUM-MAGNESIU M-VITAMIN D TABS 05642395231 Anetra D Keys ASPIR-LOW TABLET DELAYED RELEASE ASPIRIN TBEC 90709991797 Anetra D Keys Medications Administered No information available. Allergies, Adverse Reactions, Alerts Allergy Name Reaction Description Start Date Severity Status Provider BETADINE Moderate Active Rola Cruz IODINE Moderate Active Rola Cruz LEVAQUIN Moderate Active Rola Cruz NONSTEROIDAL ANTI-INFLAMMATORIES INCLUDING ASPIRIN Moderate Active Rola Westbrookherty NSAIDS Moderate No Longer Active Rolarosa WestbrookCruz NUBAIN Moderate Active Tamia Rodriguez lucho RN NSAIDS Moderate No Longer Active Tamia Palm RN PHENERGAN Moderate Active Tamia Rodriguez lucho RN SULFA Moderate Active Tamia Rodriguez lucho RN Results Date Name Value Unit Range Flag Description Office Visit: hosp f/u rm 9 MEDS REVIEW Done Documenta tion of current medications (procedure) SMOK STATUS former smoker Tob acco smoking status Plan of Care Type Date Detail Pending order CMP Pending order CBC with Differe ntial Pending order Sedimentation Ra te (ESR) Procedures Code Procedure Name Date Entry Date CPT-54602 CMP CPT-70258 CBC with Differential 11/25 CPT-09227 Sedimentation Rate (ESR) 201 11/26/10 Vital Signs [...] Weight Measured 231 [lb_av] weight E& M Weight Measured 231 [lb_av] weight E& M Immunizations No information available. Advance Directives No information available.
--- OUTSIDE RECORDS SUMMARY | 2025-07-01 18:55 | XMS_ITS | Clinical Summary ---
Author Organization [facility] Address [address] [place] [address] Care Team Providers Care [place] Machine Operator Name Role Phone Shayan Robina Vince VELIZ Primary Care Provider + [phone] Allergies Active Allergy Reactions Criticality Noted Date Comments Enoxaparin GI bleeding High 11/21/2021 Levofloxacin Unknown - Patient states they do not know rxn details Low 02/06/2009 In conjunction with Coumadin, INR increased. Caused compartment syndrome. States no rash with Levaquinn Nalbuphine Hives,Shortness of breath,Anxiety,Pal pitations,Dizzines s,Wheezing High 06/24/2012 Pt is on Methadone and states this caused a reaction that almost killed her Nsaids Shortness of breath,Swelling High 08/27/2008 Pt tolerates aspirin; has expereinced angioedema with aleve. Had renal insufficiency and a GI bleed with NSAIDS. Pregabalin Other - please document in the comment field Low 02/06/2009 Hallucinations Promethazine Other - please document in the comment field Low 02/06/2009 Severe leg cramps with severe generalized muscle twitches Sulfacetamide Shortness of breath,Unknown - Patient states they do not know rxn details High 08/27/2008 Sulfamethoxazole-Trime thoprim Hives,Rash Medium 11/21/2021 Sumatriptan Unknown - Patient states they do not know rxn details Low 11/22/2016 Tizanidine Itching,Anxiety,Di zziness Medium 11/21/2021 Tizanidine Hcl Other - please document in the comment field High 07/05/2020 Medications insulin detemir (Levemir FlexTouch) 100 UNIT/ML injection pen Inject 25 Units under the skin every night. Active empagliflozin (Jardiance) 25 MG Take 25 mg by mouth 1 (one) time each day. Active methadone (Dolophine) 10 MG tablet Take 10 mg by mouth 4 (four) times a day. 7 Active levothyroxine (Synthroid, Levoxyl) 50 MCG tablet Take 50 mcg by mouth 1 (one) time each day before breakfast. 7 Active fluticasone (Flonase) 50 MCG/ACT nasal spray Administer 2 sprays into each nostril 1 (one) time each day if needed. Active amLODIPine (Norvasc) 2.5 MG tablet Take 2.5 mg by mouth 1 (one) time each day. 1 Active atorvastatin (Lipitor) 40 MG tablet Take 40 mg by mouth 1 (one) time each day. 1 Active aspirin 81 MG EC tablet Take 81 mg by mouth 1 (one) time each day. Active bumetanide (Bumex) 1 MG tablet Take 1 mg by mouth 1 (one) time each day if needed. 1 Active Combivent Respimat 20-100 MCG/ACT inhaler Inhale 1 puff 4 (four) times a day if needed. 1 Active nitroglycerin (Nitrostat) 0.[address] 0.4 mg under the tongue every 5 (five) minutes if needed. Active ondansetron ODT (Zofran-ODT) 8 MG disintegrating tablet Take 8 mg by mouth every 12 (twelve) hours if needed. Active bisoprolol (Zebeta) 5 MG tablet Take 2.5 mg by mouth 1 (one) time each day. 1 Active gabapentin (Neurontin) 800 MG tablet Take 1 tablet by mouth 4 (four) times a day. 2 Active ProAir HFA 108 (90 Base) MCG/ACT inhaler inhale 1 - 2 puffs by inhalation route every 4 hours as needed 2 Active escitalopram (Lexapro) 20 MG tablet Take 20 mg by mouth 1 (one) time each day. Active FLUoxetine (PROzac) 20 MG capsule Take 20 mg by mouth 1 (one) time each day. 2 Active pantoprazole (Protonix) 40 MG EC tablet take 1 tablet (40 mg) by oral route 2 times per day 2 Active venlafaxine (Effexor) 75 MG tablet take 1 tablet (75 mg) by oral route 2 times per day with food 2 Active Active Problems Problem Noted Date Diagnosed Date Coronavirus infection 12/13/2021 URI (upper respiratory infection) 12/13/2021 Chronic diastolic CHF (congestive heart failure) 12/13/2021 Adverse effect of other prim arily systemic and hematological agents, initial encounter 11/28/2021 Articular cartilage disorder of hip 11/28/2021 Wheezing 11/28/2021 Backache 11/28/2021 Hip pain 11/28/2021 Knee pain 11/28/2021 Pain of left lower extremity 11/28/2021 Carpal tunnel syndrome 11/28/2021 Other synovitis and tenosynovitis, unspecified h and 11/28/2021 Acute bronchitis 11/28/2021 COPD with acute exacerbation 11/28/2021 Chronic bronchitis 11/28/2021 Chronic sinusitis 11/28/2021 Anxiety disorder 11/28/2021 Depressive disorder 11/28/2021 Osteoarthritis of knee 11/28/2021 Abnormal mammogram 11/28/2021 Class 3 severe obesity due t o excess calories with body mass index (BMI) of 40.0 to 44.9 in adult 11/28/2021 Obesity 11/28/2021 Abdominal abscess 11/21/2021 Abdominal pain 11/21/2021 Acquired trigger finger 11/21/2021 Allergic rhinitis 11/21/2021 Blood coagulation disorder 11/21/2021 Aseptic necrosis of bone 11/21/2021 Blood glucose abnormal 11/21/2021 Candidiasis of mouth 11/21/2021 Central chest pain 11/21/2021 Chill 11/21/2021 Cramp in limb 11/21/2021 Deep venous thrombosis of lower extremity 2021 Diarrhea 11/21/2021 Diastolic dysfunction 11/21/2021 Disorder of tendon 11/21/2021 Gastroenteritis 11/21/2021 Generalized osteoarthritis 11/21/2021 Esophageal dysmotility 11/21/2021 Herpes zoster 11/21/2021 Herpes zoster with nervous system complication 0 11/21/2021 Hypertensive heart disease 11/21/2021 Hypoxemia 11/21/2021 Idiopathic peripheral autonomic neuropathy 11/21 Leukocytosis 11/21/2021 Localized, primary osteoarthritis 11/21/2021 Malaise and fatigue 11/21/2021 Megaloblastic anemia due to vitamin B12 deficien cy 11/21/2021 Migraine 11/21/2021 Hematoma 11/21/2021 Myoclonus 11/21/2021 Nausea and vomiting 11/21/2021 Nonalcoholic steatohepatitis 11/21/2021 Old bucket handle tear of medial meniscus 2021 Arthritis of knee 11/21/2021 Osteoporosis 11/21/2021 Otitis media 11/21/2021 Pathological fracture of vertebra 11/21/2021 Peripheral neuropathic pain 11/21/2021 Pneumonia 11/21/2021 Pulmonary embolism 11/21/2021 Restless legs 11/21/2021 Acute asthma 11/21/2021 Thromboembolism of vein 11/21/2021 Urinary tract infectious disease 11/21/2021 Vitamin D deficiency 11/21/2021 Hollenhorst plaque, left eye 11/21/2021 Herpes zoster dermatitis of eyelid 11/21/2021 Combined forms of age-related cataract of both e yes 11/21/2021 TIA (transient ischemic attack) 11/21/2021 Mild intermittent asthma with acute exacerbation 03/23/2021 PVC (premature ventricular contraction) 03/23/20 21 Anxiety associated with depression 03/21/2021 Bronchospasm, acute 03/21/2021 Dysphagia 03/21/2021 Syncope and collapse 03/21/2021 Overview (11/21/2021): Occasional HR in 50s Patient endorses heart rate in the 30s and 40s at home, but notes that it was associated with palpitations and likely associated with PVCs Prior placement of a Medtronic ILR, battery reportedly has . Device remains in place. Once infection has been ruled out, can discuss explant in the future. Occasional HR in 50s Patient endorses heart rate in the 30s and 40s at home, but notes that it was associated with palpitations and likely associated with PVCs Prior placement of a Medtronic ILR, battery reportedly has . Device remains in place. Once infection has been ruled out, can discuss explant in the future. History of splenectomy 03/21/2021 GERD (gastroesophageal reflux disease) Chronic heart failure with preserved ejection fr action 02/07/2021 Overview (11/21/2021): Echo (03/22/2021): LVEF = 60%. Trace to mild AI with gradient 15 mmHg. Normal diastolic function Echo (03/22/2021): LVEF = 60%. Trace to mild AI with gradient 15 mmHg. Normal diastolic function Hyperlipidemia LDL goal <70 02/02/2021 Overview (11/21/2021): High intensity statin therapy indicated given the presence of CAD High intensity statin therapy indicated given the presence of CAD Chronic anemia 02/01/2021 Chronic respiratory failure 06/26/2020 Acute on chronic respiratory failure with hypoxi a 06/26/2020 Status post placement of implantable loop record er 03/03/2020 Acute on chronic respiratory failure with hypoxia and hypercapnia 02/21/2020 Opiate dependence 02/20/2020 Sleep apnea 02/20/2020 Chronic pain 02/20/2020 Interstitial lung disease 07/31/2019 Overview (11/21/2021): Chronic CT scan changes Chronic CT scan changes Hypothyroidism 11/01/2018 Ground glass opacity present on imaging of lung 04/05/2018 Overview (11/21/2021): Diffuse GGO's noted on CT scans 06/27/2020 and 02/02/2021 Diffuse GGO's noted on CT scans 06/27/2020 and 02/02/2021 Essential hypertension 03/27/2018 Overview (11/21/2021): Target blood pressure <130/80 mmHg Target blood pressure <130/80 mmHg Shoulder pain 08/09/2017 Adhesive capsulitis of shoulder 08/09/2017 COPD (chronic obstructive pulmonary disease) 05/2017 Coronary artery disease invo lving elim ira coronary artery of elim ira heart without angina pectoris 11/22/2016 Overview (11/21/2021): Cardiac catheterization for unstable angina (02/02/2021): Critical 1-vessel CAD involving the RCA. Status post PCI of the proximal RCA and distal RCA using drug-eluting stents. Mild to moderate nonobstructive disease of left coronary system. Cardiac cath with Dr. Maik Fischer (03/22/2021): No hemodynamically significant, flow-limiting stenoses. Previously placed stents in RCA patent. Moderate LAD stenosis not hemodynamically significant significant by RFR. Normal LVEF. Low suspicion for cardiac as reasoning for patient's symptoms. Cardiac catheterization for unstable angina (02/02/2021): Critical 1-vessel CAD involving the RCA. Status post PCI of the proximal RCA and distal RCA using drug-eluting stents. Mild to moderate nonobstructive disease of left coronary system. Cardiac cath with Dr. Maik Fischer (03/22/2021): No hemodynamically significant, flow-limiting stenoses. Previously placed stents in RCA patent. Moderate LAD stenosis not hemodynamically significant significant by RFR. Normal LVEF. Low suspicion for cardiac as reasoning for patient's symptoms. 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 On chronic prednisone Due to chronic prednisone. On chronic prednisone Type 2 diabetes mellitus 04/26/2016 Morbid obesity 04/26/2016 Immune thrombocytopenic purpura 10/15/1985 Resolved Problems Problem Noted Date Diagnosed Date Resolved Date Candidal vulvovaginitis 11/21/202108/15 Immunizations Immunization Administration Dates Next Due Influenza, injectable, quadrivalent 07/16/2020,1 Influenza, injectable, quadr ivalent, preservative free 08/31/2021,08/28/2017 Pneumococcal Polysaccharide PPV23 01/27/2019,,10/15/2007 Tdap 05/18/2021 Family History Medical History Relation Name Comments Cancer Brother Cardiomyopathy Father Leukemia Father COPD Mother Cancer Mother Cataracts Mother Coronary artery disease Mother Malig Hyperthermia Neg Hx Relation Name Status Comments Brother Father Mother Social History Tobacco Use Types Packs/Day Years Used Date Smoking Tobacco: Former Smokeless Tobacco: Never Tobacco Cessation:Counseling Given: Not Answered Alcohol Use Standard Drinks/Week Comments Never 0 (1 standard drink = 0.6 oz pur e alcohol) Comments No Sex and Gender Information Value Date Recorded Sex Assigned at Female 09/15/2021 1:05 PM EST Legal Sex Female 8:23 PM EDT Gender Identity Female 09/15/2021 1:05 PM EST Sexual Orientation Straight 09/15/2021 1: 05 PM EST Last Filed Vital Signs Vital Sign Reading Time Taken Comments Blood Pressure 102/71 09/11/2022 8:15 AM EST Pulse 67 09/11/2022 8:15 AM EST Temperature 36.2 C (97.2 F) 09/11/2022 8:00 AM EST Respiratory Rate 14 09/11/2022 8:15 AM EST Oxygen Saturation 94% 09/11/2022 8:15 AM EST Inhaled Oxygen Concentration - - Weight 93 kg (205 lb 0.4 oz) 09/11/2022 6:48 AM EST Height 149.9 cm (4' 11 ) 09/11/2022 6:48 AM EST Body Mass Index 41.41 09/11/2022 6:48 AM EST Plan of Treatment Upcoming Encounters Date Type Department Care Team (Late st Contact Info) Description 09/16/2025 1:00 PM EST Office Visit [facility] [address] [place] [place] [address] Bashir Ortiz MD [address] [place] [address] Health Maintenance Due Date Last Done Comments [facility]-Bone Density Scan 1957 [facility]-Depression Screening 1957 [facility]-Hepatitis C Screening 1957 [facility]-Medicare Annual Wellness (AWV) 1957 [facility]-/Child/Adol SDOH Screenings 1957 [facility]-HIB Vaccines (1 of 1 - Risk 1-dose series) 10/25/1958 Diabetes: Dental Exam 1967 [facility]- SDOH Screenings 1975 [facility]-Adult SDOH Screenings 1975 [facility]-Hepatitis A Vaccines (1 of 2 - Risk 2-dose series) 1976 CT Colonography 2002 Colonoscopy 2002 FIT-DNA 2002 FIT 2002 FOBT 2002 Sigmoidoscopy 2002 [facility]-Colorectal Cancer Screening 2002 [facility]-Breast Cancer Screening 2007 [facility]-Zoster Vaccines (1 of 2) 2007 [facility]-Diabetes: Hemoglobin A1C 06/12/202210/2021, 11/21/2021, 03/24/2021, Additional history exists [id number] Vaccine ( season) 2025 07/21/2021, 01/13/2021, 12/16/2020 [facility]-Influenza Vaccine (#1) 06/15/202508/20, 10/30/2023, 08/31/2021, Additional history exists [facility]-DTaP,Tdap,and Td Vaccines (2 - Td or Tdap) 05/18/2031 05/18/2021 [facility]-Obesity Intervention Completed 08/29/2022, 06/15 [facility]-RSV Vaccine: 60+ Years or Completed 10/30/2023 [facility]-Pneumococcal Vaccine: 50+ Years Completed 12/22/2024, 01/27/2019, 08/28/2017, Additional history exists HPV Vaccines Aged Out No longer eligi ble based on patient's age to complete this topic [facility]-IPV Vaccines Aged Out No longer e ligible based on patient's age to complete this topic [facility]-Rotavirus Vaccines Aged Out No lo nger eligible based on patient's age to complete this topic Medical Devices Implanted Type Area Clipper And Turner Device Identifier Shelf Expiration Date Model / Serial / Lot Medtronic Reveal- 016 Implanted: (Quantity not on file) Implantable Loop Recorder Left: Chest [id number] S / / Lens Sn60wf 16.5 - [id number] Implanted:Qty : 1 on 03/06/2022 by Bashir Ortiz MD at [facility] Right: Eye [employer]-[id number] 08/10/2026 SN60WF.16 5 / [id number] / [id number] Lens Sn60wf 17 - [id number] Implanted:Qty : 1 on 09/11/2022 by Bashir Ortiz MD at [facility] Left: Eye [id number] 04/07/2027 SN60WF.17 0 / [id number] / [id number] Procedures Procedure Name Priority Date/Time Associated Diagnosis Comments HEMOGLOBIN A1C Routine 11/21/2021 9:32 PM EST from Last 3 Months or Most Recently Relevant to Health Maintenance Results * (ABNORMAL) Hemoglobin A1c (11/21/2021 9:32 PM EST) Hemoglobin A1c 7.9(H) <5.7 % 11/21/2021 10:03 PM EST [facility] Blood Venous blood specimen / Unknown Venipuncture / Unknown 11/21/2021 9:32 PM EST 11/21/2021 9:48 PM EST Narrative [facility] - 11/21/2021 10:03 PM EST HA1C Interpretive Data: Diagnosis of Diabetes: Diabetic > or = 6.5% Pre-diabetic 5.7 to 6.4% Non-diabetic < or = 5.6% Glycemic Targets for Type I and Type II Diabetics: Non- Adults <7.0% Adults <6.0% Children and Adolescents <7.5% Source: [place] [employer]. Standards of medical care in diabetes,2017. Diabetes Care.2017:40 (suppl 1):S1-S135. HbA1c assay performed by an ion-exchange chromatography method that is certified traceable to the [facility]. us Glenn Parker MD LAB BLOOD ORDERABLES Final Res [facility] [address] [place] [address] from Last 3 Months or Most Recently Relevant to Health Maintenance Insurance MEDICARE Advance Directives * Full Code (Latest Code Status on File) Date Activated Date Inactivated Comments 11/21/2021 8:51 PM 11/22/2021 7:39 PM Question Answer Comments Patient has decision-making capacity? Yes Care Teams [place] Machine Operator Relationship Specialty Start Date End Date Robina Downey APRN [id number] [phone] PCP - General 02/25/21
--- OUTSIDE RECORDS SUMMARY | 2025-07-01 18:55 | XMS_ITS | Clinical Summary ---
[facility] Organization [facility] Address [address] [place] [address] Care Team Providers Care Stemhole Borer Name Role Phone Robina Downey APRN Primary Care Provider [phone] Allergies Active Allergy Reactions Criticality Noted Date Comments Sulfamethoxazole-Trime thoprim 11/22/2016 Enoxaparin GI Bleeding Sumatriptan 11/22/2016 Levofloxacin Other (See Comments) 11/22/2016 In conjunction with Coumadin, INR increased. States no rash with Levaquinn Nsaids GI Intolerance 11/22/2016 Nalbuphine Other (See Comments) 03/27/2018 Pt is on Methadone and states this caused a reaction that almost killed her Promethazine Hcl 11/22/2016 Promethazine Unknown (See Comments) Low 02/06/2009 Sulfa Antibiotics Rash High 03/27/2018 Tizanidine Anxiety,Dizziness,Ra sh Low 11/21/2021 Tizanidine Hcl Myalgia High 07/05/2020 Medications fluticasone (FLONASE) 50 MCG/ACT nasal spray 2 sprays into the nostril(s) as directed by provider Daily As Needed. Active levothyroxine (SYNTHROID, LEVOTHROID) 50 MCG tablet Take 1 tablet by mouth Daily. Active aspirin 81 MG EC tablet Take 1 tablet by mouth Daily. 30 tablet 04/07/20 18 Active Insulin Detemir (LEVEMIR FLEXTOUCH SC) Inject 35 Units under the skin into the appropriate area as directed Every Night. Active nitroglycerin (NITROSTAT) 0.[address] 1 tablet under the tongue Every 5 (Five) Minutes As Needed for Chest Pain. Take no more than 3 doses in 15 minutes. Active ondansetron ODT (ZOFRAN-ODT) [address] 1 tablet on the tongue Every 8 (Eight) Hours As Needed for Nausea or Vomiting. Active bumetanide (BUMEX) 1 MG tablet Take 1 tablet by mouth Daily. 90 tablet 1 02/09/20 Active atorvastatin (LIPITOR) 40 MG tablet Take 1 tablet by mouth Every Night. 90 tablet 1 02/09/20 21 Active pantoprazole (PROTONIX) 40 MG EC tablet Take 1 tablet by mouth 2 (Two) Times a Day Before Meals. 180 tablet 1 02/09/20 Active Additional Information Patient taking differently:40 mg OralDaily, Reported on 12/27/2022 methadone (DOLOPHINE) 10 MG tabletIndications: Uncomplicated opioid dependence Take 1 tablet by mouth 4 (Four) Times a Day, 12 tablet 03/26/20 Active amLODIPine (NORVASC) 2.5 MG tablet Take 1 tablet by mouth Daily. 03/27/20 21 Active bisoprolol (ZEBeta) 5 MG tablet Take 0.5 tablets by mouth Daily. 03/27/20 21 Active clopidogrel (PLAVIX) 75 MG tablet Take 1 tablet by mouth Daily. Active insulin aspart (NovoLOG FlexPen) 100 UNIT/ML solution pen-injector sc pen Inject 4-5 Units under the skin into the appropriate area as directed 3 (Three) Times a Day With Meals. Takes insulin by sliding scale 10/05/20 Active ipratropium-albute rol (Combivent Respimat) 20-100 MCG/ACT inhaler Inhale 1 puff 4 (Four) Times a Day As Needed. 08/23/20 21 Active gabapentin (NEURONTIN) 800 MG tablet Take 1 tablet by mouth 4 (Four) Times a Day. Active empagliflozin (JARDIANCE) 25 MG tablet tablet Take 1 tablet by mouth Daily. 30 tablet 5 12/21/19 Active escitalopram (LEXAPRO) 20 MG tablet Take 1 tablet by mouth Daily. Active ferrous sulfate 325 (65 FE) MG tablet Take 1 tablet by mouth Daily With Breakfast. Active vitamin D (ERGOCALCIFEROL) 1.25 MG (50558 UT) capsule capsule Take 2 capsules by mouth 1 (One) Time Per Week. Takes by mouth weekly on Active guaiFENesin (MUCINEX) 600 MG 12 hr tablet Take 1 tablet by mouth Every 12 (Twelve) Hours. 12/07/19 Active naloxone (NARCAN) 4 MG/0.1ML nasal spray 1 spray into the nostril(s) as directed by provider As Needed (opioid overdose). 12/07/19 Active tiotropium bromide-olodaterol (STIOLTO RESPIMAT) 2.5-2.5 MCG/ACT aerosol solution inhaler Inhale 2 puffs Daily. 1 each 5 12/28/19 Active albuterol sulfate HFA (ProAir HFA) 108 (90 Base) MCG/ACT inhaler Inhale 2 puffs Every 4 (Four) Hours As Needed for Wheezing. Active magnesium oxide (MAG-OX) 400 MG tablet Take 1 tablet by mouth Daily. Active Active Problems Problem Noted Date Diagnosed Date Metabolic encephalopathy 12/03/2022 Non-cardiac chest pain 12/03/2022 Overview (12/05/2022): [facility] admission for chest pain with trivial hstroponin elevation (12 -> 10), 12/03/2022 Cardiac catheterization for suspected unstable angina (12/05/2022): Mild CAD. Widely patent stents. Chronic respiratory failure 12/03/2022 COPD with acute exacerbation 12/13/2021 Chronic diastolic CHF (congestive heart failure) 12/13/2021 URI (upper respiratory infection) 12/13/2021 PVC (premature ventricular contraction) 03/23/20 21 Anxiety associated with depression 03/21/2021 Dysphagia 03/21/2021 GERD (gastroesophageal reflux disease) History of splenectomy 03/21/2021 Chronic heart failure with preserved ejection fr action 02/07/2021 Overview (03/23/2021): Echo (03/22/2021): LVEF = 60%. Trace to mild AI with gradient 15 mmHg. Normal diastolic function Hyperlipidemia LDL goal <70 02/02/2021 Overview (02/02/2021): High intensity statin therapy indicated given the presence of CAD Chronic anemia 02/01/2021 Chronic respiratory failure with hypoxia and hyp ercapnia 06/26/2020 Opiate dependence 02/20/2020 Interstitial lung disease 07/31/2019 Overview (07/31/2019): Chronic CT scan changes Hypothyroidism 11/01/2018 Ground glass opacity present on imaging of lung 04/05/2018 Overview (02/02/2021): Diffuse GGO's noted on CT scans 06/27/2020 and 02/02/2021 History of DVT/PE. IVC filte r in place and no longer on chronic anticoagulation. 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 Status post PCI of the proximal RCA and distal RCA using drug-eluting stents. Mild to moderate nonobstructive disease of left coronary system. Cardiac catheterization with Dr. Maik Fischer (03/22/2021): No hemodynamically significant, flow-limiting stenoses. Previously placed stents in RCA patent. Moderate LAD stenosis not hemodynamically significant significant by RFR. Normal LVEF. Cardiac catheterization for suspected unstable angina (12/05/2022): Mild CAD. Widely patent stents. 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 On chronic prednisone Morbid obesity 04/26/2016 Resolved Problems Problem Noted Date Diagnosed Date Resolved Date Unstable angina 12/03/2022 12/05/2022 Overview (12/04/2022): Added automatically from request for surgery [id number] Acute on chronic respiratory failure with hypoxia 12/13/2021 12/28/2021 Coronavirus infection 12/13/20212022 Mild intermittent asthma wit h acute exacerbation 03/23/2021 12/28/2021 Acute exacerbation of chroni c obstructive pulmonary disease (COPD) 03/21/2021 03/21/2021 Chronic respiratory failure 03/21/2021 12/28/2021 Morbid obesity with BMI of 40.0-44.9, adult 03/21/2021 12/05/2022 Syncope and collapse 03/21/2021 022 Overview (03/23/2021): Occasional HR in 50s Patient endorses heart rate in the 30s and 40s at home, but notes that it was associated with palpitations and likely associated with PVCs Prior placement of a Medtronic ILR, battery reportedly has . Device remains in place. Once infection has been ruled out, can discuss explant in the future. Bronchospasm, acute 03/21/2021 12/14/19 22 Precordial pain 03/21/2021 12/05/2022 Overview (03/22/2021): Added automatically from request for surgery [id number] Acute on chronic congestive heart failure 02/02/2021 02/07/2021 Overview (02/02/2021): Moderate to severe elevated LV filling pressures on left heart catheterization, 02/02/2021 Sepsis 02/01/2021 02/07/2021 PNA (pneumonia) 06/26/2020 12/05/2022 Possible Pneumonia 06/26/2020 CAP (community acquired pneumonia) 02/21/2020 02/02/2021 Acute on chronic respiratory failure with hypoxia and hypercapnia 02/21/2020 12/13/2021 COPD with acute exacerbation 02/21/2020 02/02/2021 Shortness of breath 02/20/2020 12/05/19 23 Chronic pain 02/20/2020 12/05/2022 Obstructive sleep apnea but intolerant of CPAP 02/20/2020 12/05/2022 rule out COVID-19 02/20/2020 12/05/2022 Chronic respiratory failure with hypoxia 07/31/2019 12/05/2022 Pneumonia due to infectious organism 07/19/2019 07/31/2019 Headache 07/19/2019 02/02/2021 Fall 07/19/2019 02/02/2021 Generalized weakness 07/19/2019 021 Left sided abdominal pain 07/19/2019 Influenza A 11/02/2018 01/24/2019 Respiratory failure Type 2 11/01/2018 0 02/02/2021 Nontraumatic rectus hematoma 04/05/2018 02/02/2021 COPD exacerbation 03/27/2018 12/05/2022 Acute respiratory failure wi th hypoxia and hypercapnia 03/27/2018 01/24/2019 Community acquired pneumonia 03/27/2018 01/24/2019 DM (diabetes mellitus) 03/27/201812/05 Essential hypertension 03/27/201812/05 Overview (02/02/2021): Target blood pressure <130/80 mmHg Dyspnea 01/24/2017 02/02/2021 Overview (01/24/2017): S/P recent MRSA pneumonia with respiratory failure. Chest X rays per outside hospital MD documentation shows increased diffuse infiltrate t/o the lung lui DVT (deep venous thrombosis) [I82.409] 12/01/2016 04/19/2017 Overview (01/24/2017): H/o dvt and pulmonary embolus on chronic Coumadin s/p IVC filter placement with subtherapeutic INR DVT prophylaxis Exacerbation of COPD (asthma ). Suspect viral induced with bronchiolitis 11/22/2016 12/28/2021 Leukocytosis 04/26/2016 12/13/2021 Overview (07/19/2019): Perhaps due to her splenectomy Acute kidney injury 04/26/2016 02/03/20 Thrombocytopenic purpura 04/26/2016 Hypertension 04/26/2016 02/02/2021 Chronic pain 04/26/2016 02/02/2021 Overview (04/26/2016): On Methadone and oxycodone. Urine screen needed Diastolic CHF, acute on chronic 04/26/2016 02/02/2021 Osteomyelitis 04/26/2016 02/02/2021 Overview (01/24/2017): Knee Right Steatohepatitis, non-alcoholic 02/25/2018 Immunizations Immunization Administration Dates Next Due COVID-19 (MODERNA) 1st,2nd,3 rd Dose Monovalent 07/21/2021,01/13/2021,12/16/2020 Flu Vaccine Quad PF >36MO 08/28/2017,08/23/2016, 07/31/2014 Fluzone (or Fluarix & Flulav al for VFC) >6mos 08/31/2021,08/28/2017 Fluzone Quad >6mos (Multi-dose) 07/16/2020,07/18 Influenza TIV (IM) 07/02/2012,06/15/2011 Influenza, Unspecified 07/28/2019 Pneumococcal Conjugate 13-Valent (PCV13) 015 Pneumococcal Polysaccharide (PPSV23) 01/27/2019, 08/28/2017,07/02/2012 Tdap 05/18/2021 Family History Medical History Relation Name Comments Cancer Brother 1 Orestes Heart attack [address] ment Heart disease Brother 1 Orestes Hypertension Brother 1 Orestes Other Brother 2 dysrhythmia No Known Problems Brother 3 No Known Problems Brother 4 No Known Problems Brother 5 No Known Problems Brother 6 Anemia Father Johnson Cooney Asthma Father Johnson Cooney Clotting disorder Father Johnson Cooney Heart disease Father Johnson Cooney cardiomyop athy Other Father Johnson Cooney unknown blo od disorder and renal failure Asthma Mother Mom COPD Mother Mom she was smoker Heart disease Mother Mom cardiomyopathy Heart failure Mother Mom Chf. Alcohol abuse Sister 1 COPD Sister 1 No Known Problems Sister 2 Relation Name Status Comments Brother 1 Orestes Brother 2 Brother 3 Alive Brother 4 Alive Brother 5 Alive Brother 6 Alive Child 1 Alive Child 2 Alive Father Johnson Cooney (Age 51) Maternal Grandfather Maternal Grandmother Mother Mom Paternal Grandfather Paternal Grandmother Sister 1 Alive Sister 2 Alive Social History Tobacco Use Types Packs/Day Years Used Date Smoking Tobacco: Never Passive Smoke Exposure: Never Smokeless Tobacco: Never Tobacco Cessation:Counseling Given: No Comments:teenage years Alcohol Use Standard Drinks/Week Comments No 0 (1 standard drink = 0.6 oz pur e alcohol) AUDIT-C Answer Date Recorded Q1: How often do you have a drink containing alcohol? Never 12/03/2022 Q2: How many drinks containi ng alcohol do you have on a typical day when you are drinking? Patient does not drink Q3: How often do you have si x or more drinks on one occasion? Never 12/03/2022 Abuse Screen Answer Date Recorded Unsafe at Home or Work/School Not on file Feels Threatened by Someone? Not on file Does Anyone Keep You from Co ntacting Others or Doint Things Outside the Home? Not on file 12/06/2023 Physical Sign of Abuse Present Not on file 0 12/06/2023 Housing Stability Answer Date Recorded Current Living Arrangements Not on file 11/16 Potentially Unsafe Housing Conditions Not on casey e 12/06/2023 Family and Community Support Answer George e Recorded Help with Day-to-Day Activities Not on file 07/23/2023 Lonely or Isolated Not on file 07/23/2023 Employment Answer Date Recorded Do you want help finding or keeping work or a mich b? Not on file 07/23/2023 Disabilities Answer Date Recorded Concentrating, Remembering, or Making Decisions Difficulty Not on file 12/06/2023 Doing Errands Independently Difficulty Not on fi le 12/06/2023 Education Answer Date Recorded Help with school or training? Not on file Preferred Language Not on file 12/06/2023 Comments No Sex and Gender Information Value Date Recorded Sex Assigned at Not on file Legal Sex Female 10:04 AM EDT Gender Identity Not on file Sexual Orientation Not on file Last Filed Vital Signs Vital Sign Reading Time Taken Comments Blood Pressure 120/90 12/07/2022 11:17 AM EST Pulse 74 12/07/2022 11:17 AM EST Temperature 37 C (98.6 F) 12/07/2022 11:17 AM EST Respiratory Rate 18 12/07/2022 11:1 7 AM EST Oxygen Saturation 92% 12/07/2022 11: 17 AM EST Inhaled Oxygen Concentration - - Weight 97.7 kg (215 lb 4.8 oz) 12/03/2022 11:05 AM EST Simultaneous filing. User may be unaware of other data. Height 152.4 cm (5') 12/03/2022 10:18 AM EST Body Mass Index 42.05 12/03/2022 10:18 AM EST Plan of Treatment Health Maintenance Due Date Last Done Comments COLOGUARD 2002 COLON CANCER SCREENING 5 YEA R SIGMOIDOSCOPY [address] COLONOGRAPHY 2002 FIT Testing (1 year) 2002 ZOSTER VACCINE (1 of 2) 2007 ANNUAL PHYSICAL 01/11/2017 HEPATITIS C SCREENING 01/11/2017 DXA SCAN 04/03/2018 04/03/2016 COLORECTAL CANCER SCREENING 10/10/2018 FECAL OCCULT BLOOD TEST 10/10/2018 10/10/2017 MAMMOGRAM 06/18/2021 06/18/2019, 11/15, 04/03/2016, Additional history exists LIPID PANEL 12/06/2023 12/06/2022, 10/15, 07/07/2022, Additional history exists Pneumococcal Vaccine 50+ (3 of 3 - PCV20 or PCV21) 01/28/2024 01/27/2019, 08/28/2017, 01/28/2015, Additional history exists COVID-19 Vaccine (4 - 2024-2 6 season) 2025 07/21/2021, 01/13/2021, 12/16/2020 INFLUENZA VACCINE 07/15/2025 10/30/2023, , 08/31/2021, Additional history exists TDAP/TD VACCINES (2 - Td or Tdap) 05/18/2031 021 HEMOGLOBIN A1C Discontinued 08/01/2023, 04/14, 01/30/2023, Additional history exists Medical Devices Implanted Type Area Seed Sales Manager Device Identifier Shelf Expiration Date Model / Serial / Lot Implant-02/10/20 16 Implanted:02/09 (Quantity not on file) Implant REVEAL LINQ / [id number] / Implant-02/10/20 16 Implanted:Qty: 1 on 02/10/2016 Implant MEDTRONIC MEDTRONIC LINQ / [id number] / Reveal Linq-02/10/2016 Implanted:02/09 (Quantity not on file) MEDTRONIC LINQ / RLA [id number] / Stnt Xience Carmela Everolimus Simba 4x38mm - [id number] Implanted:Qty: 1 on 02/02/2021 by Jake Pradhan IV, MD at [facility] [employer] [id number] / / [id number] Stnt Xience Carmela Everolimus Simba 2.5x28mm - [id number] Implanted:Qty: 1 on 02/02/2021 by Jake Pradhan IV, MD at [facility] [id number] / / [id number] Procedures Procedure Name Priority Date/Time Associated Diagnosis Comments LIPID PANEL Routine 12/06/2022 11:00 AM EST HEMOGLOBIN A1C Add-On 12/05/2022 7:39 AM EST POCT OCCULT BLOOD STOOL STAT 10/10/2017 3:27 AM EST from Last 3 Months or Most Recently Relevant to Health Maintenance Results * Lipid Panel (12/06/2022 11:00 AM EST) Total Cholesterol 106 0 - 200 mg/dL 12/06/2022 12:14 PM EST [facility] Triglycerides 114 0 - 150 mg/dL 12/06/2022 12:14 PM EST [facility] HDL Cholesterol 41 40 - 60 mg/dL 12/06/2022 12:14 PM EST [facility] LDL Cholesterol 44 0 - 100 mg/dL 12/06/2022 12:14 PM EST [facility] VLDL Cholesterol 21 5 - 40 mg/dL 12/06/2022 12:14 PM EST [facility] LDL/HDL Ratio 1.03 12/06/2022 12:14 PM EST [facility] Blood Venipuncture / Unknown 12/06/2022 11:00 AM EST 12/06/2022 11:33 AM EST Narrative [facility] - 12/06/2022 12:14 PM EST Cholesterol Reference Ranges (U.S. Department of Health and Human Services ATP III Classifications) Desirable <200 mg/dL Borderline High 200-239 mg/dL High Risk >240 mg/dL Triglyceride Reference Ranges (U.S. Department of Health and Human Services ATP III Classifications) Normal <150 mg/dL Borderline High 150-199 mg/dL High 200-499 mg/dL Very High >500 mg/dL HDL Reference Ranges (U.S. Department of Health and Human Services ATP III Classifications) Low <40 mg/dl (major risk factor for CHD) High >60 mg/dl ('negative' risk factor for CHD) LDL Reference Ranges (U.S. Department of Health and Human Services ATP III Classifications) Optimal <100 mg/dL Near Optimal 100-129 mg/dL Borderline High 130-159 mg/dL High 160-189 mg/dL Very High >189 mg/dL Iglesia Black MD LAB BLOOD ORDERABLES Final Res ult [facility]
[address] [place] [address], * (ABNORMAL) Hemoglobin A1c (12/05/2022 7:39 AM EST) Hemoglobin A1C 8.10(H) 4.80 - 5.60 % 12/05/2022 11:03 AM EST [facility] Blood Venipuncture / Unknown 12/05/2022 7:39 AM EST 12/05/2022 7:48 AM EST Narrative [facility] - 12/05/2022 11:03 AM EST Hemoglobin A1C Ranges: Increased Risk for Diabetes 5.7% to 6.4% Diabetes >= 6.5% Diabetic Goal < 7.0% Shay Trujillo PA-C LAB BLOOD ORDERABLES Final R esult [facility]
[address] [id number], * POCT Occult Blood, stool (10/10/2017 3:27 AM EST) Fecal Occult Blood Negative Negative [facility] Lot Number [id number] [facility] Expiration Date 2019 [facility] DEVELOPER [address]BER [id number] [facility] DEVELOPER EXPIRATION DATE 2019 [facility] Positive Control Positive Positive [facility] Negative Control Negative Negative [facility] Stool Specimen from rectum / Unknown 10/10/2017 3:27 AM EST Sb Kitchen MD POINT OF CARE TEST ORDERABLE S Final Result [facility]
[address] [place] [address], from Last 3 Months or Most Recently Relevant to Health Maintenance Insurance MEDICARE A & B Advance Directives * CPR (Attempt to Resuscitate) (Latest Code Status on File) Date Activated Date Inactivated Comments 12/04/2022 10:10 AM 12/07/2022 5:35 PM Question Answer Comments Code Status (Patient has no pulse and is not breathing): CPR (Attempt to Resuscitate) Medical Interventions (Patie nt has pulse or is breathing): Full Support Level Of Support Discussed With: Patient Release to patient: Routine Release * CPR (Attempt to Resuscitate) Date Activated Date Inactivated Comments 12/13/2021 1:43 PM 12/20/2021 3:29 PM Question Answer Comments Code Status (Patient has no pulse and is not breathing): CPR (Attempt to Resuscitate) Medical Interventions (Patie nt has pulse or is breathing): Full Support * CPR (Attempt to Resuscitate) Date Activated Date Inactivated Comments 03/22/2021 5:41 PM 03/26/2021 4:29 PM Question Answer Comments Code Status (Patient has no pulse and is not breathing): CPR (Attempt to Resuscitate) Medical Interventions (Patie nt has pulse or is breathing): Full Level Of Support Discussed With: Patient * CPR (Attempt to Resuscitate) Date Activated Date Inactivated Comments 03/21/2021 5:27 AM 03/22/2021 5:41 PM Question Answer Comments Code Status (Patient has no pulse and is not breathing): CPR (Attempt to Resuscitate) Medical Interventions (Patie nt has pulse or is breathing): Full * CPR (Attempt to Resuscitate) Date Activated Date Inactivated Comments 02/01/2021 10:22 PM 02/07/2021 4:54 PM Question Answer Comments Code Status (Patient has no pulse and is not breathing): CPR (Attempt to Resuscitate) Medical Interventions (Patie nt has pulse or is breathing): Full Level Of Support Discussed With: Patient Care Teams Stemhole Borer Relationship Specialty Start Date End Date Robina Downey APRN [address] [place] [address] PCP - General Nurse Practitioner 07/19/19
--- OUTSIDE RECORDS SUMMARY | 2025-07-01 18:55 | XMS_ITS | Encounter Summary ---
Author Organization [facility] Address [address] [place] [address] Care Team Providers Care Truer Pinion And Wheel Name Role Phone Robina Downey APRN Primary Care Provider [phone] Encounter Details Date Type Department Care Team (Late st Contact Info) Description 04/02/2015 External CPT II [facility] Social History Tobacco Use Types Packs/Day Years Used Date Smoking Tobacco: Never Assessed Comments Unknown Sex and Gender Information Value Date Recorded Sex Assigned at Not on file Legal Sex Female 10:04 AM EDT Gender Identity Not on file Sexual Orientation Not on file documented as of this encounter Plan of Treatment Not on file documented as of this encounter Visit Diagnoses Not on filedocumented in this encounter Additional Health Concerns Infection Onset Date Last Indicated Resolved Time Other Comment:Resp viral panel pending -Kacey Jordan, RN, BSN, CIC - Infection Control 07/21/2019 07/21/2019 07/21/2019 8:19 AM E DT COVID (rule out) 02/20/2020 02/20/2020 02/22/2020 9:23 AM EDT COVID Screen (preop/placement) 06/26/2020 06/26/2020 06/26/2020 11:50 AM EDT COVID (rule out) 06/26/2020 06/26/2020 06/26/2020 2:54 PM EDT COVID (rule out) 06/26/2020 06/26/2020 06/26/2020 3:03 PM EDT COVID Screen (preop/placement) 02/01/2021 02/01/2021 02/01/2021 10:08 PM EDT COVID (rule out) 02/02/2021 02/02/2021 02/02/2021 11:04 AM EDT COVID Screen (preop/placement) 02/02/2021 02/02/2021 02/02/2021 11:57 AM EDT COVID Screen (preop/placement) 03/21/2021 03/21/2021 03/21/2021 4:13 AM EDT C.difficile (rule out) 03/21/2021 03/21/202103/23 7:26 AM EDT COVID Screen (preop/placement) 12/13/2021 12/13/2021 12/13/2021 12:45 PM EST COVID (rule out) 12/03/2022 12/03/2022 12/04/2022 8:27 AM EST documented as of this encounter Care Teams Truer Pinion And Wheel Relationship Specialty Start Date End Date Robina Downey APRN [address] [place] [address] PCP - General Nurse Practitioner 07/19/19 documented as of this encounter
[2025-07-01 19:09] LABS: Lactate Venous 1.0 mmol/L (0.4-2.0); VBG HCO3 28.4 mmol/L (23-30); VBG PH 7.32 mmol/L (7.31-7.41); VBG PO2 65.2 mmol/L (28-40)
[2025-07-01 19:10] LABS: Hematocrit 36.5 % (37.0-47.0); Hemoglobin 11.1 g/dL (12.2-16.2); Immature Granulocytes % 0.5 %; Mean Corpuscular HGB Conc 30.4 g/dL (31.8-35.4); Mean Corpuscular Hemoglobin 30.1 pg (27.0-31.2); Mean Corpuscular Volume 98.9 fl (81-99); Nucleated Red Blood Cells % 0 %; Platelet Count 400 K/mm3 (142-424); Red Blood Count 3.69 M/mm3 (4.20-5.40); Red Cell Distribution Width-SD 52.2 fL; White Blood Count 16.8 K/mm3 (4.8-10.8)
[2025-07-01 19:13] LABS: VBG PCO2 56.7 mmol/L (35-51)
[2025-07-01 19:25] LABS: Alanine Aminotransferase 17 U/L (12-78); Albumin Level 3.9 g/dl (3.5-5.0); Albumin/Globulin Ratio 1.1 (1.1-1.8); Alkaline Phosphatase 120 U/L (38-126); Anion Gap 9.0 mEq/L (5-15); Aspartate Amino Transferase 23 U/L (14-36); Bilirubin,Total 0.3 mg/dl (0.2-1.3); Blood Urea Nitrogen 8 mg/dl (7-17); Calcium 8.7 mg/dl (8.4-10.2); Carbon Dioxide 32 mmol/L (22.0-30.0); Chloride 100 mmol/L (98-107); Creatinine Clearance Estimated 78 mL/min (50-200); Creatinine,Serum 0.80 mg/dl (0.52-1.04); Estimated Glomerular Filt Rate 72 ml/min (>60); GFR (African American) 87 ML/MIN (>60); Globulin 3.4 g/dL (1.3-3.2); Glucose 216 mg/dl (74-100); INR 0.99 (0.9-1.1); Lipase 59 U/L (23-300); Magnesium 1.4 mg/dl (1.6-2.3); Potassium 4.0 mmoL/L (3.5-5.1); Prothrombin Time 11.0 seconds (10.1-12.5); Sodium 137 mmol/L (136-145); Total Protein,Serum 7.3 g/dl (6.3-8.2)
[2025-07-01 19:37] LABS: NT Pro Brain Natriuretic Pep. 252 pg/mL (0-125)
[2025-07-01] MEDS: MORPHINE 4MG/ML SYRINGE 4 MG IV (19:37)
[2025-07-01] MEDS: ONDANSETRON 4MG/2ML VIAL 4 MG IV (19:38)
[2025-07-01 19:44] LABS: Troponin I < 0.01 ng/ml (0.00-0.034)
[2025-07-01] MEDS: 0.9 % SODIUM CHLORIDE 50 ML VIAL 40 ML IV (19:50)
[2025-07-01] MEDS: SODIUM CHLORIDE 0.9% 10ML SYR (RAD ONLY) 10 ML IV (19:50)
[2025-07-01] MEDS: IOPAMIDOL-370 (76%);100ML BOTTLE 70 ML IV (19:50)
[2025-07-01 22:05] LABS: Troponin I < 0.01 ng/ml (0.00-0.034)
[2025-07-02] VITALS (9 sets, daily range): BP systolic 100–156; BP diastolic 50–95; PULSE 60–89; RESP 16–23; TEMP 36.6–37.2; O2SAT 92–97; BMI 42.3
--- NOTE | 2025-07-02 00:29 | EXP.HP ---
History of Present Illness *Admission Date: 07/02/25 *Reason for visit:: SOB *History of present illness: Patient is a 69-year-old female with past medical history of CHF with preserved ejection fraction, hypertension, diabetes mellitus, hypothyroidism, CAD, hypertension who presents to the hospital due to shortness of breath and chest discomfort. According to the patient it has been going on for past 2 to 3 days. Patient normally wears 2 L oxygen at home, has been utilizing 4 L nasal cannula on arrival. Patient was admitted for further treatment and management. [facility] Disclaimer: The information contained in this section may have been updated after the patient was seen, as this information can be updated by other users. Medical History HLD (hyperlipidemia) HTN (hypertension) Edema (HFpEF) heart failure with preserved ejection fraction Chronic respiratory failure with hypoxia Dyspnea on exertion ILD (interstitial lung disease) Fibrosis of lung Lupus disease of lung Acute and chronic respiratory failure with hypoxia History of ITP History of lupus Rotator cuff impingement syndrome History of anemia History of left heart catheterization (LHC) Cataract Kidney disease Thyroid disease Asthma Anemia SVT (supraventricular tachycardia) MRSA (methicillin resistant Staphylococcus aureus) HTN (hypertension) GI bleed Gastroparesis GERD (gastroesophageal reflux disease) DVT (deep venous thrombosis) Arrhythmia Endometrial cancer Heart attack Oxygen dependent COPD (chronic obstructive pulmonary disease) Diabetes Addisons disease Surgical History History of splenectomy History of esophagogastroduodenoscopy (EGD) History of carpal tunnel surgery History of Amado fundoplication History of right heart catheterization (RHC) History of hysterectomy History of colonoscopy History of cholecystectomy Family History Other Family history of anemia Family history of asthma Family history of bleeding disorder Family history of cancer Family history of diabetes mellitus Family history of kidney disease Family history of thyroid disease Social History Smoking Status: Never smoker alcohol intake: never current occupational status: retired Travel in the last 8 weeks?: None household members: none housing: house lives independently: Yes marital status: education level: college diet: diabetic caffeine: Yes Have you lived/traveled outside [place] in past 30 days?: No Contact w/someone who lives/traveled outside US past 30 days?: No Exposure to someone with infectious disease in past 14 days?: No Do you have a fever (greater than 100.4 F or 38 C)?: No Have you tested positive for COVID-19?: No Exposed to someone with COVID-19 in past 14 days?: No Do you have a sore throat?: No Do you have a cough?: No Do you have any weakness?: No Do you have any diarrhea?: No Are you experiencing any unusual bleeding?: No Do you have any muscle aches/pain?: No Do you have any abdominal pain?: No Are you experiencing loss of taste or smell?: No Other Medical History Have you received the Flu Vaccine for this season: No Have you received the Pneumonia Vaccine: Yes Review of Systems Review of Systems Review of systems:: pertinent systems reviewed and negative unless documented below Meds Home Medications and Allergies Home Medications ?Medication ?Instructions ?Recorded ?Confirmed ?Type aspirin 81 mg chewable tablet 81 mg PO DAILY 11/27/19 07/02/25 History gabapentin 800 mg tablet 800 mg PO QID fibromyalgia pain 11/27/19 07/02/25 History levothyroxine 50 mcg tablet 75 mcg PO DAILY thyroid 11/27/19 07/02/25 History methadone 10 mg tablet 10 mg PO 0600,1200,1800,2359 11/27/19 07/02/25 History fibromyalgia pain ondansetron HCl 8 mg tablet 8 mg PO TIDP PRN Nausea 11/27/19 07/02/25 History pantoprazole 40 mg tablet,delayed 40 mg PO DAILY 11/28/19 07/02/25 History release clopidogrel 75 mg tablet 75 mg PO DAILY 07/07/22 07/02/25 History empagliflozin 25 mg tablet 25 mg PO DAILY 07/07/22 07/02/25 History (Jardiance) albuterol sulfate 90 mcg/actuation 2 puff inhalation Q4HP PRN 12/02/23 07/02/25 History aerosol inhaler (Ventolin HFA) Shortness Of Breath bupropion HCl 150 mg 24 hr tablet, 300 mg PO DAILY 12/02/23 07/02/25 History extended release ergocalciferol (vitamin D2) 1,250 50,000 unit PO WEEKLY Supplement 12/02/23 07/02/25 History mcg (50,000 unit) capsule (Vitamin D2) escitalopram oxalate 20 mg tablet 20 mg PO DAILY 12/02/23 07/02/25 History fluticasone propionate 50 1 spray intranasal BID ALLERGIES 12/02/23 07/02/25 History mcg/actuation nasal spray,suspension insulin aspart U-100 100 unit/mL 10 sliding scale dose SQ TIDWMEAL 12/02/23 07/02/25 History (3 mL) subcutaneous pen (Novolog Diabetes FlexPen U-100 Insulin aspart) magnesium oxide 400 mg PO DAILY Supplement 12/02/23 07/02/25 History nitroglycerin 0.4 mg sublingual 0.4 mg sublingual Q5MINP PRN Chest 12/02/23 07/02/25 History tablet Pain insulin aspart U-100 100 unit/mL 1 sliding scale dose SQ 08/11/24 07/02/25 History subcutaneous solution (Novolog USEASDIRECTD U-100 Insulin aspart) insulin glargine 100 unit/mL 45 unit SQ HS 08/11/24 07/02/25 History subcutaneous solution (Lantus U-100 Insulin) mometasone-formoterol HFA 100 2 puff inhalation BID 90 days #13 08/11/24 07/02/25 Rx mcg-5 mcg/actuation aerosol grams inhaler (Dulera) bisoprolol fumarate 5 mg tablet 2.5 mg PO DAILY High Blood Pressure 08/14/24 07/02/25 History atorvastatin 80 mg tablet 80 mg PO DAILY #90 tabs 08/15/24 07/02/25 Rx spironolactone 25 mg tablet 25 mg PO DAILY 07/02/25 07/02/25 History New Prescriptions to Start Prescriptions: Allergies Allergy/AdvReac Type Severity Reaction Status Date / Time Cephalosporins Allergy Unknown Verified 08/21/24 10:17 allergy reaction meperidine Allergy Unknown Verified 08/21/24 10:17 allergy reaction NSAIDS (Non-Steroidal Allergy Unknown Verified 08/21/24 10:17 Anti-Inflamma allergy reaction pregabalin Allergy Verified 08/21/24 10:17 Sulfa (Sulfonamide Allergy Unknown Verified 08/21/24 10:17 Antibiotics) allergy reaction sumatriptan Allergy Verified 08/21/24 10:17 tizanidine Allergy Verified 08/21/24 10:17 enoxaparin (From Lovenox) AdvReac Unknown Verified 08/21/24 10:17 allergy reaction nalbuphine AdvReac Unknown Verified 08/21/24 10:17 allergy reaction promethazine AdvReac Unknown Verified 08/21/24 10:17 allergy reaction Exam Data for Last 24 hours Vital signs and Labs for Last 24 Hours: Temp Pulse Resp BP Pulse Ox O2 Del Method O2 Flow Rate 98.3 F 93 H 21 138/87 93 L Nasal Cannula 2 07/01/25 18:31 07/01/25 23:01 07/01/25 23:01 07/01/25 23:01 07/01/25 23:01 07/01/25 20:38 07/01/25 20:38 Laboratory Results - last 24 hr 07/01/25 19:00: WBC 16.8 H, RBC 3.69 L, Hgb 11.1 L, Hct 36.5 L, MCV 98.9, MCH 30.1, MCHC 30.4 L, RDW 14.3, Plt Count 400, MPV 10.9 H, Neut % (Auto) 66.2, Lymph % (Auto) 19.5, [place] % (Auto) 8.4, Eos % (Auto) 5.0, Baso % (Auto) 0.4, Neut # (Auto) 11.1 H, Lymph # (Auto) 3.3, [place] # (Auto) 1.4 H, Eos # (Auto) 0.9 H, Baso # (Auto) 0.1, PT 11.0, INR 0.99, VBG pH 7.32, VBG pCO2 56.7 H, VBG pO2 65.2 H, VBG HCO3 28.4, VBG Total CO2 30.2 H, VBG O2 Saturation 92.3 H, VBG Base Excess 2.3, VBG Lactic Acid 1.0, Sodium 137, Potassium 4.0, Chloride 100, Carbon Dioxide 32 H, Anion Gap 9.0, BUN 8, Creatinine 0.80, Estimated Creat Clear 78, Estimated GFR 72, Est GFR ( Amer) 87, Glucose 216 H, Lactate 0.8, Calcium 8.7, Magnesium 1.4 L, Total Bilirubin 0.3, AST 23, ALT 17, Alkaline Phosphatase 120, Troponin I < 0.01, NT-Pro-B Natriuret Pep 252 H, Total Protein 7.3, Albumin 3.9, Globulin 3.4 H, Albumin/Globulin Ratio 1.1, Lipase 59 07/01/25 21:17: Troponin I < 0.01 I & O for Last 24 hours: Intake & Output 06/29/25 06/30/25 07/01/25 07/02/25 23:59 23:59 23:59 23:59 Weight 90.718 kg Constitutional Constitutional: no acute distress *Routine HEENT Exam Head: Present normocephalic Eye: Present EOMI and PERRL ENT: Present mucous membranes moist *Routine Neck Exam Neck: Present supple; Absent lymphadenopathy *Routine Respiratory Exam Respiratory: Present decreased breath sounds *Routine Cardiovascular Exam Cardiovascular: Present RRR *Routine Abdominal Exam Abdominal: Present soft and normoactive bowel sounds; Absent tenderness *Routine Rectal Exam Rectal:: deferred *Routine Genitalia Exam Genitalia:: deferred *Routine Extremities Exam Extremities: Absent cyanosis, clubbing or edema *Routine Skin Exam Skin: Present warm; Absent rash *Routine Neurological Exam Neurological: Present alert and oriented X3 Assessment and Plan *Assessment and plan (1) Pneumonia: Status: Acute Category: Medical Code(s): J18.9 - Pneumonia, unspecified organism (2) Acute exacerbation of CHF (congestive heart failure): Status: Acute Category: Medical Code(s): I50.9 - Heart failure, unspecified (3) Essential hypertension: Status: Acute Category: Medical Code(s): I10 - Essential (primary) hypertension (4) Type 2 CO (myocardial infarction): Status: Acute Category: Medical Code(s): I21.A1 - Myocardial infarction type 2 Plan Patient is a 69-year-old female with past medical history of CHF with preserved ejection fraction, hypertension, diabetes mellitus, hypothyroidism, CAD, hypertension who presents to the hospital due to shortness of breath and chest discomfort. According to the patient it has been going on for past 2 to 3 days. Patient normally wears 2 L oxygen at home, has been utilizing 4 L nasal cannula on arrival. Patient was admitted for further treatment and management. Assessment and plan Acute hypoxic respiratory failure Suspected, required pneumonia Acute on chronic CHF with preserved ejection fraction Start IV Levaquin Check procalcitonin, check blood cultures Chest x-ray showed ground glass opacities, pulmonary edema Start 20 IV twice daily Lasix Strict I's and O's Chronic medical conditions Diabetes mellitus Order insulin sliding scale Hypertension Resume home Aldactone, bisoprolol DVT prophylaxis-subcutaneous heparin
[2025-07-02] MEDS: LEVOFLOXACIN/D5W 750 MG/150 ML 750 MG/150 ML PIGGYBACK 100 MG IV ×2 (00:48→04:40)
[2025-07-02 00:49] LABS: Microscopic, Urine URINE MICROSCOPIC (MICROSCOPIC)
[2025-07-02 00:56] LABS: Bilirubin,Urine Negative (Negative); Color,Urine YELLOW (Yellow); Glucose,Urine (UA) 3+ (Negative); Ketones,Urine Negative (Negative); Leukocyte Esterase,Urine Negative (Negative); PH,Urine 6.5 (5.0-8.5); Protein,Urine Negative (Negative); Specific Gravity, Urine <= 1.005 (1.005-1.030); Urobilinogen,Urine 0.2 EU/dl (0.2)
[2025-07-02 01:21] LABS: Bacteria,Urine 1+ /lpf
--- NOTE | 2025-07-02 01:40 | ECG_ITS ---
APPROVED REPORT Exam: Resting ECG HR:81 bpm ECG Measurements Heart Rate 81 AXES WY 187 P 68 QRSd 106 QRS -47 QT 354 T 98 QTc 391 Conclusion SINUS RHYTHM INCOMPLETE RIGHT BUNDLE BRANCH BLOCK [90+ ms QRS DURATION, TERMINAL R IN V1/V2, 40+ ms S IN I/aVL/V4/V5/V6] LEFT ANTERIOR FASCICULAR BLOCK [QRS AXIS <= -45, QR IN I, RS IN II] NONSPECIFIC T-WAVE ABNORMALITY ABNORMAL ECG UNCONFIRMED REPORT Electronically signed by : Nuno Moreno MD 07/02/2025 11:05:59
[2025-07-02 01:41] LABS: Troponin I < 0.01 ng/ml (0.00-0.034)
--- NOTE | 2025-07-02 01:47 | PC.NURSE ---
patient reports that she hasn't ate in 2 days because she hasn't been able to get to the kitchen and make her some food. She is afraid she can't take care of herself anymore. She reports that she falls almost daily.
--- NOTE | 2025-07-02 02:00 | PC.NURSE ---
patient states she has trouble affording some medications - resulting in not getting some rx filled that she is suppose to take such as entresto.
[2025-07-02] MEDS: MORPHINE 2MG/ML SYRINGE 1 MG IV ×2 (02:08→09:29)
[2025-07-02] MEDS: ACETAMINOPHEN 325MG TAB 650 MG PO ×3 (02:14→11:38)
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
[2025-07-02] MEDS: FUROSEMIDE 20 MG/2 ML VIAL IV (04:39)
[2025-07-02 05:54] LABS: POC Glucose,Bedside 173 gm/dL (70-110)
[2025-07-02] MEDS: humaLOG 100 UNITS/ML 10ML VIAL (SSI) SUBCUT ×4 (06:06→20:34)
[2025-07-02 06:20] LABS: Hematocrit 36.9 % (37.0-47.0); Hemoglobin 10.9 g/dL (12.2-16.2); Immature Granulocytes % 0.3 %; Mean Corpuscular HGB Conc 29.5 g/dL (31.8-35.4); Mean Corpuscular Hemoglobin 29.8 pg (27.0-31.2); Mean Corpuscular Volume 100.8 fl (81-99); Nucleated Red Blood Cells % 0 %; Platelet Count 321 K/mm3 (142-424); Red Blood Count 3.66 M/mm3 (4.20-5.40); Red Cell Distribution Width-SD 53.0 fL; White Blood Count 12.4 K/mm3 (4.8-10.8)
[2025-07-02 06:29] LABS: Anion Gap 8.1 mEq/L (5-15); Blood Urea Nitrogen 8 mg/dl (7-17); Calcium 8.6 mg/dl (8.4-10.2); Carbon Dioxide 31 mmol/L (22.0-30.0); Chloride 100 mmol/L (98-107); Creatinine Clearance Estimated 37 mL/min (50-200); Creatinine,Serum 0.80 mg/dl (0.52-1.04); Estimated Glomerular Filt Rate 72 ml/min (>60); GFR (African American) 87 ML/MIN (>60); Glucose 166 mg/dl (74-100); Potassium 4.1 mmoL/L (3.5-5.1); Sodium 135 mmol/L (136-145)
[2025-07-02 07:46] LABS: Procalcitonin 0.062 ng/mL (0.0-2.0)
[2025-07-02 08:09] LABS: Magnesium 1.4 mg/dl (1.6-2.3)
[2025-07-02] MEDS: MAGNESIUM SULFATE IN WATER 2 GM/50 ML PIGGYBACK IV (09:13)
[2025-07-02] MEDS: GABAPENTIN 300MG CAPSULE 300 MG PO ×3 (09:14→13:56)
[2025-07-02] MEDS: MAGNESIUM OXIDE 400MG TABLET 400 MG PO (09:14)
[2025-07-02] MEDS: LEVOTHYROXINE 50MCG (0.05MG) TAB 50 MCG PO (09:14)
[2025-07-02] MEDS: FUROSEMIDE 40MG/4ML VIAL 40 MG IV ×2 (09:14→16:09)
[2025-07-02] MEDS: CLOPIDOGREL 75MG TAB 75 MG PO (09:15)
[2025-07-02] MEDS: BISOPROLOL 5MG TABLET 2.5 MG PO (09:15)
[2025-07-02] MEDS: SPIRONOLACTONE 25MG TABLET 25 MG PO (09:15)
[2025-07-02] MEDS: EMPAGLIFLOZIN 25MG TABLET 25 MG PO (09:16)
[2025-07-02] MEDS: ESCITALOPRAM 20MG TABLET 20 MG PO (09:16)
[2025-07-02] MEDS: ASPIRIN 81MG CHEWABLE TABLET 81 MG PO (09:16)
[2025-07-02] MEDS: HEPARIN SODIUM 5,000 UNIT/ML VIAL 5000 UNIT SUBCUT ×3 (09:16→20:11)
--- NOTE | 2025-07-02 09:31 | [facility].OTEV ---
OT Evaluation Rehab OT IP Evaluation Start: 07/02/25 01:40 Freq: ONCE Status: Active Protocol: Document 07/02/25 09:24 RAYRAY (Rec: 07/02/25 09:31 RAYRAY [id number]) Rehab OT IP Assessment Subjective History PER HPI narrative: 69-year-old female presents to the emergency department via EMS for a 2 to 3-day history of gradually worsening chest pain and shortness of breath, patient states the chest pain is substernal nonradiating, patient states her pain is currently a 6 or 7 out of 10, she is had 4 nitroglycerin today, as well as her normal dual antiplatelet therapy at home, she was given 2 additional nitroglycerin and route, when asking the patient why she delayed in seeking care as she has had ongoing worsening chest pain for the last 2 days, patient states I just did not want to come . Patient denies any fever chills cough congestion, admits to nausea vomiting and abdominal pain, denies any constipation diarrhea denies any urinary type symptomatology, denies any hematuria melena hematochezia or hematemesis, patient denies any tobacco use, no alcohol use, no other drug use, other past medical history is consistent with coronary artery disease status post stent placements, HFpEF, T2DM, diabetic gastroparesis, obesity, restrictive/ interstitial lung disease, hypertension, hyperlipidemia , chronic pain syndrome, hypothyroidism, GERD, hypothyroidism, data deficient history of intermission uterine cancer, day deficient history of pancreatic pseudocyst, initial triage vitals noted for tachycardia , SpO2 is around 96%, on 3 L nasal cannula patient is at home on baseline 2 L nasal cannula. Subjective I had a bad fall years ago and think it is my neck. Pt was supine in bed when therapy entered room. Pt orient x3. Pt reported they live alone in home with no steps. Pt report they are ind in ADLs and IADL completion, but does not drive. Pt relies on family to drive pt to apts and to grocery. Pt reports they use a walker or cane for FM task if needed. pt reports they have a shower chair. Pt reports they are normally on O2 and are currently on 2 1/2 L. Pt agreed to sit on EOB. Pt went from supine to EOB with Ind. Pt able to hold static sitting balance well and demo good endurance. pt then completed STS transfer with SBA and walker for safety and demo good endurance and activity tolerance. Pt sat back in bed and went to supine position with Ind . Pt left with call light and all other needs within reach. Objective Patient Orientation Person,Place,Birthday Right Upper WFL Extremity Gross ROM Left Upper Extremity WFL Gross ROM Bed Mobility bed mobility-scooting,bed mobility - supine/sit Assist Level Independent Transfer Training Sit/Stand Transfer Assist Level Supervision/Stand by Chair Transfer Sit to/from Ambulatory Technique Chair Transfer Rolling Walker Assistive Devices Decrease in No Endurance Rehab OT IP prob,goals,plan Problems Date of Evaluation: 07/02/25 OT IP Problems Bed Mobility,Transfers,Balance,Self care,Safety Rehab Potential Rehab Potential Innapropriate for Skilled Therapy Discharge Plan OT Discharge Plan At this time, pt is at baseline and would not benefit from acute OT services and interventions while admitted at [facility]. Once medically stable, pt can DC home. Pt could benefit from skilled OT services either in HH or OP setting as pt reported they have a hx of falling and fell and hurt neck and back. Pt reported limited ROM in shoulder and pain, but contribute that more to fall and to possible neck problems. Pt does not have transportation services as reliable to reach apts for OP setting, so HH could be more optimal to improve QOL of pt. Eval Complexity Eval Charge Codes 03421 - Moderate Complexity PHYSICIAN CERTIFICATION: I certify the specified therapy services for Maricel Cooney are required, authorized, and reviewed every 30 days.
--- NOTE | 2025-07-02 09:44 | [facility].PTEV ---
Physical Therapy Evaluation Rehab PT IP Evaluation Start: 07/02/25 02:25 Freq: ONCE Status: Active Protocol: Document 07/02/25 09:39 LORA (Rec: 07/02/25 09:43 LORA [id number]) Subjective/History History History Per H&P: Patient is a 69-year-old female with past medical history of CHF with preserved ejection fraction , hypertension, diabetes mellitus, hypothyroidism, CAD, hypertension who presents to the hospital due to shortness of breath and chest discomfort. According to the patient it has been going on for past 2 to 3 days. Patient normally wears 2 L oxygen at home, has been utilizing 4 L nasal cannula on arrival. Patient was admitted for further treatment and management. Subjective Subjective Pt reports she lives alone and is IND with all mobility using a RW. Pt reports hx of multiple falls. Pt reports she lives in a single-story home with 0 LISETH. Pt DEP on supplemental O2 (2L). Pt does not drive. New diagnosis of No cancer in past 12 months? [facility] How much help from another person do you currently need... Turning from your None back to your side while in a flat bed without using bedrails? Moving from lying on None back to sitting on the side of a flat bed without using bedrails? Moving to and from a None bed to a chair ( including a wheelchair)? Standing up from a None chair using your arms? (e.g., wheelchair, bedside chair) Walking in hospital None room? Climbing 3-5 steps A little with a railing? Mobility Score 23 Mobility Level [facility] Mobility 7 Walk 25 feet or more Mobility Calculator Rehab PT IP Eval Objective Appearance Patient Behavior Appropriate,Cooperative Patient Orientation Person,Place,Situation Difficulty following none instructions Speech Pattern Clear Ambulation Patient Able to Yes Ambulate Ambulation Observation IP General Gait Wide Based Gait Pattern Observation Ambulation Distance 20 (feet) Ambulation Assistive Rolling Walker Device Ambulation Ability Supervision/Stand by Balance Ability to Arise Able, uses arms to help Sitting Balance Steady, safe Standing Balance Steady, wide stance Dynamic Sitting Good Balance Ability Dynamic Standing Fair Balance Ability Transfers Bed Transfer Ability Independent Sit to Stand Bed Independent Transfer Ability Rehab PT IP prob,goals,plan Problems Date of Evaluation: 07/02/25 Rehab Potential Rehab Potential Innapropriate for Skilled Therapy Discharge Plan PT Discharge Plan Pt demo'd safe and steady household level ambulation using a rollator. Pt appears to be at her baseline in mobility and would not benefit from skilled acute care PT while at [facility]. PT recommending PT services to address strength, balance, and endurance deficits. Eval Complexity Eval Charge Codes 45525 - Moderate Complexity PHYSICIAN CERTIFICATION: I certify the specified therapy services for Maricel Cooney are required, authorized, and reviewed every 30 days.
--- NOTE | 2025-07-02 09:46 | ECG_ITS ---
APPROVED REPORT Exam: Resting ECG HR:68 bpm ECG Measurements Heart Rate [address] 189 P 66 QRSd 106 QRS -43 QT 367 T 55 QTc 385 Conclusion SINUS RHYTHM LEFT AXIS DEVIATION [QRS AXIS < -30] INCOMPLETE RIGHT BUNDLE BRANCH BLOCK [90+ ms QRS DURATION, TERMINAL R IN V1/V2, 40+ ms S IN I/aVL/V4/V5/V6] POSSIBLE ANTERIOR MYOCARDIAL INFARCTION , PROBABLY OLD [30 ms Q WAVE IN V3/V4, OR R < 0.2 mV IN V4] ABNORMAL ECG UNCONFIRMED REPORT Electronically signed by : Nuno Moreno MD 07/03/2025 08:28:53
[2025-07-02] MEDS: IPRATROPIUM/ALBUTEROL 3 ML NEB IH ×2 (09:56→18:37)
--- NOTE | 2025-07-02 10:30 | SW/DCPLANNER ---
I did provide patient w/ [facility] Resource List and information regarding the [facility].
[2025-07-02 11:39] LABS: POC Glucose,Bedside 167 gm/dL (70-110)
[2025-07-02] MEDS: KETOROLAC 15MG/ML VIAL 15 MG IM ×2 (14:39→20:40)
[2025-07-02] MEDS: GABAPENTIN 800MG TABLET 800 MG PO ×2 (16:09→20:11)
[2025-07-02] MEDS: ONDANSETRON 4MG/2ML VIAL 4 MG IV (16:09)
[2025-07-02 16:29] LABS: POC Glucose,Bedside 171 gm/dL (70-110)
--- NOTE | 2025-07-02 16:32 | PC.NURSE ---
Pt is A&Ox4. Vital signs stable. Patient is tolerating baseline O2 requirement of 2L NC. Pt complained of chest pain/shoulder pain this morning. EKG obtained. Hospitalist aware. Pt has requested pain medication throughout this shift for muscle/shoulder pain. PRN pain medication given per DEC. IV diuretics given with adequate output. Magnesium replaced per protocol. FSBS treated with SSI per protocol. Pt resting comfortably supine in bed with no further needs voiced at this time. Call light within reach.
[2025-07-02] MEDS: CALCIUM CARBONATE 500MG CHEWTAB 500 MG PO (18:16)
[2025-07-02] MEDS: SODIUM CHLORIDE 3% 15ML NEB 3 ML IH (18:37)
[2025-07-02] MEDS: ATORVASTATIN 40MG TABLET 80 MG PO (20:11)
[2025-07-02] MEDS: PANTOPRAZOLE 40MG TABLET 40 MG PO (20:11)
[2025-07-02 20:12] LABS: Adenovirus,PCR Not Detected (NotDetected); Chlamydophila Pneumoniae, PCR Not Detected (NotDetected); Coronavirus 19, PCR Not Detected (NotDetected); Coronovirus HKU1,PCR Not Detected (NotDetected); Influenza A, PCR Not Detected (NotDetected); Influenza AH1, 2009 Not Detected (NotDetected); Influenza AH1, PCR Not Detected (NotDetected); Influenza AH3,PCR Not Detected (NotDetected); Influenza B, PCR Not Detected (NotDetected); Mycoplasma Pneumoniae, PCR Not Detected (NotDetected); Parainfluenza 1, PCR Not Detected (NotDetected); Parainfluenza 2, PCR Not Detected (NotDetected); Parainfluenza 3, PCR Not Detected (NotDetected); Parainfluenza 4, PCR Not Detected (NotDetected)
[2025-07-02 20:36] LABS: POC Glucose,Bedside 356 gm/dL (70-110)
[2025-07-03] VITALS (9 sets, daily range): BP systolic 106–131; BP diastolic 52–77; PULSE 60–85; RESP 12–20; TEMP 36.6–36.8; O2SAT 92–94; BMI 43.1
[2025-07-03] MEDS: KETOROLAC 15MG/ML VIAL 15 MG IM (03:00)
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
--- NOTE | 2025-07-03 06:00 | XR_ITS ---
PROCEDURE INFORMATION: Exam: XR Chest Exam date and time: 07/03/2025 5:22 AM Age: 69 years old Clinical indication: Other: Eval pneumonia TECHNIQUE: Imaging protocol: Radiologic exam of the chest. Views: 1 view. COMPARISON: CR XR CHEST PORTABLE 07/01/2025 7:56 PM FINDINGS: Lungs: Chronic interstitial changes no focal infiltrates. No consolidation. Pleural spaces: Unremarkable. No pleural effusion. No pneumothorax. Heart/Mediastinum: Unremarkable. No cardiomegaly. Loop recorder present. Bones/joints: Unremarkable. IMPRESSION: No focal infiltrates noted.
[2025-07-03 06:08] LABS: POC Glucose,Bedside 291 gm/dL (70-110)
[2025-07-03 06:11] LABS: Hematocrit 36.2 % (37.0-47.0); Hemoglobin 11.2 g/dL (12.2-16.2); Immature Granulocytes % 0.7 %; Mean Corpuscular HGB Conc 30.9 g/dL (31.8-35.4); Mean Corpuscular Hemoglobin 30.9 pg (27.0-31.2); Mean Corpuscular Volume 99.7 fl (81-99); Nucleated Red Blood Cells % 0.1 %; Platelet Count 411 K/mm3 (142-424); Red Blood Count 3.63 M/mm3 (4.20-5.40); Red Cell Distribution Width-SD 52.8 fL; White Blood Count 17.8 K/mm3 (4.8-10.8)
[2025-07-03] MEDS: LEVOTHYROXINE 50MCG (0.05MG) TAB 50 MCG PO (06:17)
[2025-07-03] MEDS: humaLOG 100 UNITS/ML 10ML VIAL (SSI) SUBCUT ×4 (06:17→21:28)
[2025-07-03 07:05] LABS: RBC Morphology Normal; Total Cells Counted 100
[2025-07-03] MEDS: HEPARIN SODIUM 5,000 UNIT/ML VIAL 5000 UNIT SUBCUT ×3 (08:05→21:07)
[2025-07-03] MEDS: BISOPROLOL 5MG TABLET 2.5 MG PO (08:06)
[2025-07-03] MEDS: SPIRONOLACTONE 25MG TABLET 25 MG PO (08:06)
[2025-07-03] MEDS: GABAPENTIN 800MG TABLET 800 MG PO ×4 (08:06→21:07)
[2025-07-03] MEDS: ASPIRIN 81MG CHEWABLE TABLET 81 MG PO (08:06)
[2025-07-03] MEDS: ESCITALOPRAM 20MG TABLET 20 MG PO (08:06)
[2025-07-03] MEDS: EMPAGLIFLOZIN 25MG TABLET 25 MG PO (08:06)
[2025-07-03] MEDS: MAGNESIUM OXIDE 400MG TABLET 400 MG PO (08:06)
[2025-07-03] MEDS: CLOPIDOGREL 75MG TAB 75 MG PO (08:06)
[2025-07-03] MEDS: FUROSEMIDE 40MG/4ML VIAL 40 MG IV (08:06)
--- NOTE | 2025-07-03 10:02 | SW/DCPLANNER ---
Spoke with patient regarding home health services once she is medically stable and ready for discharge. Patient stated that she is not interested in home health services at this time and if she feels she needs it once she leaves she will ask her primary care provider to sit her up. Yanique [place]
[2025-07-03 10:55] LABS: Albumin Level 4.0 g/dl (3.5-5.0); Chloride 96 mmol/L (98-107)
[2025-07-03 10:56] LABS: Potassium 4.4 mmoL/L (3.5-5.1); Sodium 139 mmol/L (136-145)
[2025-07-03 10:58] LABS: Alanine Aminotransferase 15 U/L (12-78); Alkaline Phosphatase 118 U/L (38-126); Anion Gap 16.4 mEq/L (5-15); Aspartate Amino Transferase 22 U/L (14-36); Bilirubin,Total 0.3 mg/dl (0.2-1.3); Blood Urea Nitrogen 20 mg/dl (7-17); Carbon Dioxide 31 mmol/L (22.0-30.0); Creatinine Clearance Estimated 29 mL/min (50-200); Creatinine,Serum 1.30 mg/dl (0.52-1.04); Estimated Glomerular Filt Rate 41 ml/min (>60); GFR (African American) 49 ML/MIN (>60)
[2025-07-03 10:59] LABS: Albumin/Globulin Ratio 1.3 (1.1-1.8); Calcium 10.4 mg/dl (8.4-10.2); Globulin 3.2 g/dL (1.3-3.2); Glucose 279 mg/dl (74-100); Magnesium 1.9 mg/dl (1.6-2.3); Total Protein,Serum 7.2 g/dl (6.3-8.2)
[2025-07-03] MEDS: KETOROLAC 15MG/ML VIAL 15 MG IV ×2 (11:22→21:30)
[2025-07-03 11:34] LABS: POC Glucose,Bedside 162 gm/dL (70-110)
[2025-07-03] MEDS: ONDANSETRON 4MG/2ML VIAL 4 MG IV (14:09)
[2025-07-03] MEDS: LACTATED RINGERS 1000ML 500 ML 250 ML IV (16:42)
[2025-07-03 16:52] LABS: POC Glucose,Bedside 226 gm/dL (70-110)
--- NOTE | 2025-07-03 18:12 | P.PN_ITS ---
Subjective *Date: 07/03/25 *Time: 18:12 Interval history: Patient just does not feel well today. Still having bodyaches. Stable on 2 to 3 L which is more or less her baseline. White count bumped however. Poor p.o. intake. Continues to require patient management Medical Exam Vital signs and Labs for Last 24 Hours: Vital Signs Temp Pulse Pulse Pulse Resp BP Pulse Ox 07/03/25 17:00 07/03/25 16:00 97.9 F 62 16 123/61 94 L 07/03/25 15:00 07/03/25 13:00 80 07/03/25 13:00 07/03/25 12:00 97.8 F 66 18 119/75 94 L 07/03/25 11:00 07/03/25 09:00 07/03/25 08:00 07/03/25 08:00 80 07/03/25 07:40 98.3 F 80 18 131/75 93 L 07/03/25 07:00 07/03/25 05:00 07/03/25 04:00 98.0 F 79 16 131/77 94 L 07/03/25 04:00 80 07/03/25 03:00 07/03/25 01:00 07/03/25 00:00 98.0 F 85 20 106/52 L 92 L 07/02/25 23:00 07/02/25 21:00 07/02/25 20:00 70 07/02/25 20:00 07/02/25 20:00 98.4 F 87 20 117/50 L 93 L 07/02/25 18:44 07/02/25 18:38 86 18 07/02/25 18:38 86 07/02/25 18:38 84 07/02/25 18:38 92 L O2 Del Method O2 Flow Rate 07/03/25 17:00 Room Air 07/03/25 16:00 Nasal Cannula 2 07/03/25 15:00 Nasal Cannula 07/03/25 13:00 07/03/25 13:00 Nasal Cannula 07/03/25 12:00 Nasal Cannula 2 07/03/25 11:00 Nasal Cannula 07/03/25 09:00 Nasal Cannula 07/03/25 08:00 Nasal Cannula 07/03/25 08:00 07/03/25 07:40 Nasal Cannula 2 07/03/25 07:00 Nasal Cannula 2 07/03/25 05:00 Nasal Cannula 2 07/03/25 04:00 Nasal Cannula 07/03/25 04:00 07/03/25 03:00 Nasal Cannula 2 07/03/25 01:00 Nasal Cannula 2 07/03/25 00:00 Nasal Cannula 07/02/25 23:00 Nasal Cannula 2 07/02/25 21:00 Nasal Cannula 2 07/02/25 20:00 07/02/25 20:00 Nasal Cannula 2 07/02/25 20:00 Nasal Cannula 3.5 07/02/25 18:44 Nasal Cannula 2 07/02/25 18:38 07/02/25 18:38 07/02/25 18:38 07/02/25 18:38 Nasal Cannula 2 Intake and Output 07/03/25 07/03/25 07/03/25 07:59 15:59 23:59 Intake Total 888 / 2528 1160 / 2528 480 / 2528 Output Total 0 / 0 0 / 0 Balance 888 / 2528 1160 / 2528 480 / 2528 Intake: Intake, Oral Amount 888 / 2528 1160 / 2528 480 / 2528 Output: Output, Urine Amount 0 / 0 0 / 0 Other: Number of Unmeasured Voids 1 1 Weight 97.069 kg Patient Weight 07/03/25 23:59 Weight 97.069 kg Laboratory Results - last 24 hr 07/02/25 19:00: Chlamy pneumoniae PCR Not detected, Adenovirus (PCR) Not d etected, B. pertussis DNA (PCR) Not detected, Coronavirus OC43 (PCR) Not detected, Coronavirus HKU1 (PCR) Not detected, Coronavirus 229E (PCR) Not detected, SARS-CoV-2 (PCR) Not detected, Coronavirus NL63 (PCR) Not detected, Human Metapneumovir PCR Not detected, Influenza A (H1) PCR Not detected, Influ A (H1N1/09) PCR Not detected, Influenza A (H3) PCR Not detected, Influenza Type A (PCR) Not detected, Influenza Type B (PCR) Not detected, M. pneumoniae (PCR) Not detected, Parainfluenza 1 (PCR) Not detected, Parainfluenza 2 (PCR) Not detected, Parainfluenza 3 (PCR) Not detected, Parainfluenza 4 (PCR) Not detected, RSV (PCR) Not detected, Entero/Rhino (PCR) Not detected 07/02/25 20:04: POC Glucose 356 H* 07/03/25 05:50: WBC 17.8 H D, RBC 3.63 L, Hgb 11.2 L, Hct 36.2 L, MCV 99.7 H, MCH 30.9, MCHC 30.9 L, RDW 14.5, Plt Count 411 D, MPV 11.1 H, Neut % (Auto) 56.1, Lymph % (Auto) 27.8, [place] % (Auto) 9.9 H, Eos % (Auto) 4.9, Baso % (Auto) 0.6, Neut # (Auto) 10.0 H, Lymph # (Auto) 5.0 H, [place] # (Auto) 1.8 H, Eos # (Auto) 0.9 H, Baso # (Auto) 0.1, Total Counted 100, Neutrophils % (Manual) 53, Lymphocytes % (Manual) 34, Monocytes % (Manual) 8, Eosinophils % (Manual) 5 H, Platelet Estimate Normal, RBC Morphology Normal, Sodium 139, Potassium 4.4, Chloride 96 L, Carbon Dioxide 31 H, Anion Gap 16.4 H, BUN 20 H D, Creatinine 1.30 H D, Estimated Creat Clear 29, Estimated GFR 41 L, Est GFR ( Amer) 49 L D, Glucose 279 H D, Calcium 10.4 H, Magnesium 1.9 D, Total Bilirubin 0.3, AST 22, ALT 15, Alkaline Phosphatase 118, Total Protein 7.2, Albumin 4.0, Globulin 3.2, Albumin/Globulin Ratio 1.3 07/03/25 05:56: POC Glucose 291 H 07/03/25 11:26: POC Glucose 162 H 07/03/25 16:38: POC Glucose 226 H I & O for Labs for Last 24 Hours: Intake & Output 06/30/25 07/01/25 07/02/25 07/03/25 23:59 23:59 23:59 23:59 Intake Total 1220 / 2108 2528 / 2528 Output Total 2750 / 2750 0 / 0 Balance -1530 / -642 2528 / 2528 Weight 90.718 kg 95.254 kg 97.069 kg Microbiology Reports for the Last 24 Hours: Microbiology 07/03/25 08:17 Sputum - Expectorated Sputum Gram Stain - Final Constitutional: Present mild distress, obese and chronically ill appearing Head: Present atraumatic and normocephalic ENT: Present normal exam Neck: Present normal inspection Respiratory: Present wheezes, crackles and normal respiratory effort; Absent rhonchi Cardiac: Present Reg Rate and Rhythm GI: Present soft and normal bowel sounds; Absent distention or tenderness Extremities: Present normal inspection; Absent full ROM Comment:: Wrists and shoulders tender to palpation along with chest Skin: Present intact; Absent erythema Neuro: Present Grossly Intact, alert, awake, oriented x 3 and moves all extremities Assessment and Plan *Assessment and plan (1) Pneumonia: Status: Acute Category: Medical Code(s): J18.9 - Pneumonia, unspecified organism (2) Acute exacerbation of CHF (congestive heart failure): Status: Acute Category: Medical Code(s): I50.9 - Heart failure, unspecified (3) Essential hypertension: Status: Acute Category: Medical Code(s): I10 - Essential (primary) hypertension (4) Type 2 AK (myocardial infarction): Status: Acute Category: Medical Code(s): I21.A1 - Myocardial infarction type 2 (5) Chronic, continuous use of opioids: Status: Chronic Category: Medical Code(s): F11.90 - Opioid use, unspecified, uncomplicated (6) ILD (interstitial lung disease): Status: Acute Category: Medical Code(s): J84.9 - Interstitial pulmonary disease, unspecified (7) Hypothyroid: Status: Acute Qualifiers: Hypothyroidism type: other Qualified Code(s): E03.8 - Other specified hypothyroidism Category: Medical Code(s): E03.9 - Hypothyroidism, unspecified (8) Obesity: Status: Acute Category: Medical Code(s): E66.9 - Obesity, unspecified Plan Patient is a 69-year-old female with past medical history of CHF with preserved ejection fraction, hypertension, diabetes mellitus, hypothyroidism, CAD, hypertension who presents to the hospital due to shortness of breath and chest discomfort. According to the patient it has been going on for past 2 to 3 days. Patient normally wears 2 L oxygen at home, has been utilizing 4 L nasal cannula on arrival. Patient was admitted for further treatment and management. Showing some improvement on oxygen, down to 2 to 3 L. Still having significant pain and feeling poor. Significant wheeze on exam today. Continues to require inpatient management. Anticipate discharge in the next day or 2. Problems addressed as follows: Acute on chronic hypoxic respiratory failure Multifocal pneumonia Acute on chronic CHF with preserved ejection fraction - Responded to diuresis and initiation of antibiotics. Will hold diuretics today. -Continue supplemental oxygen as needed for goal sats greater 90%. Weaned to 2 L. -Continue Levaquin 750 mg every 48 hours, renally dosed. -White count bumped today to 17.2. Up from 12 yesterday. - Comprehensive respiratory panel negative for all analytes - repeat chest x-ray obtained today showing chronic interstitial change. No significant focal consolidation per my review NICHOLAS - BUN elevated at 20, creatinine 1.3. CBC, CMP, magnesium ordered for the morning. Baseline appears to be about 0.7 Diabetes - Continue sliding scale insulin fingersticks ACHS. Glucose elevated at 226 this morning on labs - Continue Jardiance 25 mg daily Chronic medications for chronic conditions that are stable: Will discontinue Lipitor due to body aches Hypertension: Continue bisoprolol 2.5 mg daily per home regimen Depression: Continue Wellbutrin 150 mg twice daily; Continue Lexapro 20 mg daily COPD: Continue Advair 250 one puff twice daily Continue DuoNebs every 6 hours scheduled Chronic pain/chronic opiate use disorder Continue gabapentin 800 mg 4 times a day Continue methadone 10 mg every 6 hours Continue Toradol 15 mg every 6 hours as needed for breakthrough pain Hypothyroid: Continue levothyroxine 50 mcg daily CAD: Continue Plavix 75 mg daily DVT prophylaxis-subcutaneous heparin Full code Diabetic diet
--- NOTE | 2025-07-03 18:12 | PC.NURSE ---
patient is a/o x4 and remains on 2LNC tolerating well. patient stated she has felt very tired this shift. she has rested off and on. patient c/o chest pain after exertion to the bathroom once this shift, MD aware, treated per DEC. zofran administered due to patient feeling nauseous. FSBS treated per DEC. tolerating diet. 500ml LR bolus infusing. patient was up to chair this shift. IS at bedside. ambulates to the bathroom independently. no current requests at this time, call light within reach.
[2025-07-03] MEDS: ACETAMINOPHEN 325MG TAB 650 MG PO (21:07)
[2025-07-03] MEDS: PANTOPRAZOLE 40MG TABLET 40 MG PO (21:07)
[2025-07-03] MEDS: IPRATROPIUM/ALBUTEROL 3 ML NEB IH (23:39)
[2025-07-04] VITALS: BP 144/74; PULSE 60; PULSE 62; RESP 12; TEMP 36.9; O2SAT 93
[2025-07-04] MEDS: ACETAMINOPHEN 325MG TAB 650 MG PO (03:20)
[2025-07-04] MEDS: KETOROLAC 15MG/ML VIAL 15 MG IV ×2 (03:22→09:33)
--- NOTE | 2025-07-04 03:35 | PC.NURSE ---
Patient is alert and oriented x4. She was observed to have both wakeful periods and resting periods (eyes closed, respirations even) throughout the night. Currently, the patient is resting upright in bed eating cereal. Patient continues to have multiple complaints of moderate bilateral shoulder pain, treated per MAR with Toradol. She has also reported having headaches and neck pain this shift, also treated per MAR with Tylenol. Patient has expressed feeling ill on-and-off throughout the shift. Scheduled medications were administered as appropriately per MAR. Patient has rested up to both chair and bed this shift. She ambulates with standby assistance and walker use as needed (mobility status improving). Expiratory wheezing, rhonchi + diminished lung sounds still heard throughout; scattered audible wheezing also still present. Occasional cough reported. Nasal cannula (2 L) remains in place; oxygen saturations > 90%. ACHS glucose checks performed. Patient continues to consume numerous snacks and Diet Pepsi sodas this shift. At this time, the patient denies any further complaints. No acute changes. Call light within reach.
[2025-07-04 04:00] VITALS: BP 128/86; PULSE 65; RESP 14; TEMP 36.8; O2SAT 97; BMI 44.3
[2025-07-04 05:57] LABS: POC Glucose,Bedside 168 gm/dL (70-110)
[2025-07-04] MEDS: LEVOFLOXACIN/D5W 750 MG/150 ML 750 MG/150 ML PIGGYBACK 100 MG IV (06:00)
[2025-07-04] MEDS: LEVOTHYROXINE 50MCG (0.05MG) TAB 50 MCG PO (06:12)
[2025-07-04] MEDS: humaLOG 100 UNITS/ML 10ML VIAL (SSI) SUBCUT (06:12)
[2025-07-04 07:44] VITALS: BP 127/68; PULSE 60; RESP 14; TEMP 36.8; O2SAT 98
[2025-07-04 07:48] LABS: Hematocrit 38.9 % (37.0-47.0); Hemoglobin 11.3 g/dL (12.2-16.2); Immature Granulocytes % 0.7 %; Mean Corpuscular HGB Conc 29.0 g/dL (31.8-35.4); Mean Corpuscular Hemoglobin 29.4 pg (27.0-31.2); Mean Corpuscular Volume 101.0 fl (81-99); Nucleated Red Blood Cells % 0 %; Platelet Count 387 K/mm3 (142-424); Red Blood Count 3.85 M/mm3 (4.20-5.40); Red Cell Distribution Width-SD 53.2 fL; White Blood Count 15.4 K/mm3 (4.8-10.8)
[2025-07-04 08:21] LABS: RBC Morphology Normal; Total Cells Counted 100
--- NOTE | 2025-07-04 08:23 | EXP.DC.SUM ---
General Admission date:: 07/02/25 Discharge date: 07/04/25 HPI HPI HPI: Patient is a 69-year-old female with past medical history of CHF with preserved ejection fraction, hypertension, diabetes mellitus, hypothyroidism, CAD, hypertension who presents to the hospital due to shortness of breath and chest discomfort. According to the patient it has been going on for past 2 to 3 days. Patient normally wears 2 L oxygen at home, has been utilizing 4 L nasal cannula on arrival. Patient was admitted for further treatment and management. Hospital Course Hospital Course Hospital Course: Patient is a 69-year-old female with past medical history of CHF with preserved ejection fraction, hypertension, diabetes mellitus, hypothyroidism, CAD, hypertension who presents to the hospital due to shortness of breath and chest discomfort. According to the patient it has been going on for past 2 to 3 days. Patient normally wears 2 L oxygen at home, has been utilizing 4 L nasal cannula on arrival. Patient was admitted for further treatment and management. Showing some improvement on oxygen, down to 2 to 3 L. Patient was slow to improve. Complaining mainly of musculoskeletal pain in chest. Had gradual improvement of her wheezing. Tolerating p.o. intake. Weaned to baseline oxygen. Stable to discharge home with close follow-up with primary care. Problems addressed as follows: Acute on chronic hypoxic respiratory failure Multifocal pneumonia Acute on chronic CHF with preserved ejection fraction - Mixed clinical picture multifocal pneumonia and mild volume overload. Was initially on 4 L oxygen. Able to wean within 24 hours of admission to 2 L oxygen which is her baseline. Maintain sats greater than 90%. Initiated on broad-spectrum antibiotics for multifocal pneumonia and diuresed once during admission. Had good response with fluid output. Will continue Levaquin renally dosed every 48 hours to complete 7 days of therapy for multifocal pneumonia. White count fluctuated but improving at 15 on day of discharge. Chest imaging initially showed multifocal pneumonia on CT with questionable pulmonary edema. X-ray showed improvement day before discharge with persistent chronic interstitial changes that have been present on previous imaging over the past year. No significant focal consolidation at that time. Follow-up with cardiology and pulmonology in the next 1 to 2 weeks to reestablish care. NICHOLAS: Present on admission, BUN elevated at 20, creatinine 1.3. Baseline appears to be about 0.7. Showed some improvement but not complete resolution during admission. Recommend repeat labs as an outpatient in 1 week with PCP to monitor kidney function normalization. Renally dosing medications during admission. Diabetes - Treated with sliding scale insulin and fingersticks ACHS during admission. Continue Jardiance 25 mg daily. Glucose 146 on morning of discharge. Resume home insulin regimen with insulin aspart 10 units 3 times a day with meals along with insulin glargine 45 units nightly. Chronic medications for chronic conditions that are stable: Will discontinue Lipitor due to body aches Hypertension: Continue bisoprolol 2.5 mg daily per home regimen Depression: Continue Wellbutrin 150 mg twice daily; Continue Lexapro 20 mg daily COPD: Continue Advair 250 one puff twice daily Continue DuoNebs every 6 hours scheduled - On baseline oxygen for 24 hours prior to discharge home Chronic pain/chronic opiate use disorder Continue gabapentin 800 mg 4 times a day Continue methadone 10 mg every 6 hours Continue Toradol 15 mg every 6 hours as needed for breakthrough pain Hypothyroid: Continue levothyroxine 50 mcg daily CAD: Continue Plavix 75 mg daily Total time spent on discharge 34 minutes in counseling, documentation, chart review, and direct care with patient. Exam Data for Last 24 hours Vital signs and Labs for Last 24 Hours: Temp Pulse Resp BP Pulse Ox O2 Del Method O2 Flow Rate 97.8 F 66 18 119/75 94 L Nasal Cannula 2 07/03/25 12:00 07/03/25 12:00 07/03/25 12:00 07/03/25 12:00 07/03/25 12:00 07/03/25 12:00 07/03/25 12:00 Laboratory Results - last 24 hr 07/02/25 16:01: POC Glucose 171 H 07/02/25 19:00: Chlamy pneumoniae PCR Not detected, Adenovirus (PCR) Not detected, B. pertussis DNA (PCR) Not detected, Coronavirus OC43 (PCR) Not detected, Coronavirus HKU1 (PCR) Not detected, Coronavirus 229E (PCR) Not detected, SARS-CoV-2 (PCR) Not detected, Coronavirus NL63 (PCR) Not detected, Human Metapneumovir PCR Not detected, Influenza A (H1) PCR Not detected, Influ A (H1N1/09) PCR Not detected, Influenza A (H3) PCR Not detected, Influenza Type A (PCR) Not detected, Influenza Type B (PCR) Not detected, M. pneumoniae (PCR) Not detected, Parainfluenza 1 (PCR) Not detected, Parainfluenza 2 (PCR) Not detected, Parainfluenza 3 (PCR) Not detected, Parainfluenza 4 (PCR) Not detected, RSV (PCR) Not detected, Entero/Rhino (PCR) Not detected 07/02/25 20:04: POC Glucose 356 H* 07/03/25 05:50: WBC 17.8 H D, RBC 3.63 L, Hgb 11.2 L, Hct 36.2 L, MCV 99.7 H, MCH 30.9, MCHC 30.9 L, RDW 14.5, Plt Count 411 D, MPV 11.1 H, Neut % (Auto) 56.1, Lymph % (Auto) 27.8, [place] % (Auto) 9.9 H, Eos % (Auto) 4.9, Baso % (Auto) 0.6, Neut # (Auto) 10.0 H, Lymph # (Auto) 5.0 H, [place] # (Auto) 1.8 H, Eos # (Auto) 0.9 H, Baso # (Auto) 0.1, Total Counted 100, Neutrophils % (Manual) 53, Lymphocytes % (Manual) 34, Monocytes % (Manual) 8, Eosinophils % (Manual) 5 H, Platelet Estimate Normal, RBC Morphology Normal, Sodium 139, Potassium 4.4, Chloride 96 L, Carbon Dioxide 31 H, Anion Gap 16.4 H, BUN 20 H D, Creatinine 1.30 H D, Estimated Creat Clear 29, Estimated GFR 41 L, Est GFR ( Amer) 49 L D, Glucose 279 H D, Calcium 10.4 H, Magnesium 1.9 D, Total Bilirubin 0.3, AST 22, ALT 15, Alkaline Phosphatase 118, Total Protein 7.2, Albumin 4.0, Globulin 3.2, Albumin/Globulin Ratio 1.3 07/03/25 05:56: POC Glucose 291 H 07/03/25 11:26: POC Glucose 162 H I & O for Last 24 hours: Intake & Output 06/30/25 07/01/25 07/02/25 07/03/25 23:59 23:59 23:59 23:59 Intake Total 1220 / 2108 1568 / 1568 Output Total 2750 / 2750 0 / 0 Balance -1530 / -642 1568 / 1568 Weight 90.718 kg 95.254 kg 97.069 kg Constitutional Constitutional: no acute distress, obese, chronically ill appearing and cooperative *Routine HEENT Exam Head: Present normocephalic Eye: Present EOMI and PERRL ENT: Present mucous membranes moist *Routine Neck Exam Neck: Present supple; Absent lymphadenopathy *Routine Respiratory Exam Respiratory: Present prolonged expiratory phase, wheezes (minimal, intervally improved) and normal respiratory effort; Absent rhonchi or crackles *Routine Cardiovascular Exam Cardiovascular: Present RRR *Routine Abdominal Exam Abdominal: Present soft and normoactive bowel sounds; Absent tenderness *Routine Rectal Exam Patient deferred: visual exam *Routine Exam Patient deferred: external exam *Routine Extremities Exam Extremities: Absent cyanosis, clubbing or edema Comments: diffuse TTP trigger points in Upper back, and arms *Routine Skin Exam Skin: Present warm and wounds (left lateral leg, abrasion present on admission, bandage clean); Absent rash *Routine Neurological Exam Neurological: Present alert, oriented X3 and moving all extremities; Absent altered mental status Results Data Completed and Pending Labs on day of discharge: Labs from last 24 hours 07/03/25 07/03/25 07/03/25 11:26 05:56 05:50 WBC 17.8 H D RBC 3.63 L Hgb 11.2 L Hct 36.2 L MCV 99.7 H MCH 30.9 MCHC 30.9 L RDW 14.5 Plt Count 411 D MPV 11.1 H Neut % (Auto) 56.1 Lymph % (Auto) 27.8 [place] % (Auto) 9.9 H Eos % (Auto) 4.9 Baso % (Auto) 0.6 Neut # (Auto) 10.0 H Lymph # (Auto) 5.0 H [place] # (Auto) 1.8 H Eos # (Auto) 0.9 H Baso # (Auto) 0.1 Total Counted 100 Neutrophils % (Manual) 53 Lymphocytes % (Manual) 34 Monocytes % (Manual) 8 Eosinophils % (Manual) 5 H Platelet Estimate Normal RBC Morphology Normal Sodium 139 Potassium 4.4 Chloride 96 L Carbon Dioxide 31 H Anion Gap 16.4 H BUN 20 H D Creatinine 1.30 H D Estimated Creat Clear 29 Estimated GFR 41 L Est GFR ( Amer) 49 L D Glucose 279 H D POC Glucose 162 H 291 H Calcium 10.4 H Magnesium 1.9 D Total Bilirubin 0.3 AST 22 ALT 15 Alkaline Phosphatase 118 Total Protein 7.2 Albumin 4.0 Globulin 3.2 Albumin/Globulin Ratio 1.3 Chlamy pneumoniae PCR Adenovirus (PCR) B. pertussis DNA (PCR) Coronavirus OC43 (PCR) Coronavirus HKU1 (PCR) Coronavirus 229E (PCR) SARS-CoV-2 (PCR) Coronavirus NL63 (PCR) Human Metapneumovir PCR Influenza A (H1) PCR Influ A (H1N1) PCR Influenza A (H3) PCR Influenza Type A (PCR) Influenza Type B (PCR) M. pneumoniae (PCR) Parainfluenza 1 (PCR) Parainfluenza 2 (PCR) Parainfluenza 3 (PCR) Parainfluenza 4 (PCR) RSV (PCR) Entero/Rhino (PCR) 07/02/25 07/02/25 07/02/25 20:04 19:00 16:01 WBC RBC Hgb Hct MCV MCH MCHC RDW Plt Count MPV Neut % (Auto) Lymph % (Auto) [place] % (Auto) Eos % (Auto) Baso % (Auto) Neut # (Auto) Lymph # (Auto) [place] # (Auto) Eos # (Auto) Baso # (Auto) Total Counted Neutrophils % (Manual) Lymphocytes % (Manual) Monocytes % (Manual) Eosinophils % (Manual) Platelet Estimate RBC Morphology Sodium Potassium Chloride Carbon Dioxide Anion Gap BUN Creatinine Estimated Creat Clear Estimated GFR Est GFR ( Amer) Glucose POC Glucose 356 H* 171 H Calcium Magnesium Total Bilirubin AST ALT Alkaline Phosphatase Total Protein Albumin Globulin Albumin/Globulin Ratio Chlamy pneumoniae PCR Not detected Adenovirus (PCR) Not detected B. pertussis DNA (PCR) Not detected Coronavirus OC43 (PCR) Not detected Coronavirus HKU1 (PCR) Not detected Coronavirus 229E (PCR) Not detected SARS-CoV-2 (PCR) Not detected Coronavirus NL63 (PCR) Not detected Human Metapneumovir PCR Not detected Influenza A (H1) PCR Not detected Influ A (H1N1) PCR Not detected Influenza A (H3) PCR Not detected Influenza Type A (PCR) Not detected Influenza Type B (PCR) Not detected M. pneumoniae (PCR) Not detected Parainfluenza 1 (PCR) Not detected Parainfluenza 2 (PCR) Not detected Parainfluenza 3 (PCR) Not detected Parainfluenza 4 (PCR) Not detected RSV (PCR) Not detected Entero/Rhino (PCR) Not detected DS: Diagnosis Discharge Diagnosis (1) Pneumonia: Status: Acute Code(s): J18.9 - Pneumonia, unspecified organism (2) Acute exacerbation of CHF (congestive heart failure): Status: Acute Code(s): I50.9 - Heart failure, unspecified (3) Essential hypertension: Status: Acute Code(s): I10 - Essential (primary) hypertension (4) Type 2 NV (myocardial infarction): Status: Ruled-out Code(s): I21.A1 - Myocardial infarction type 2 (5) Chronic, continuous use of opioids: Status: Chronic Code(s): F11.90 - Opioid use, unspecified, uncomplicated (6) (HFpEF) heart failure with preserved ejection fraction: Status: Acute Code(s): I50.30 - Unspecified diastolic (congestive) heart failure Qualifiers: Heart failure chronicity: acute on chronic Qualified Code(s): I50.33 - Acute on chronic diastolic (congestive) heart failure (7) ILD (interstitial lung disease): Status: Acute Code(s): J84.9 - Interstitial pulmonary disease, unspecified (8) Diabetes mellitus type 2 in obese: Status: Chronic Code(s): E11.69 - Type 2 diabetes mellitus with other specified complication; E66.9 - Obesity, unspecified (9) Chronic pain syndrome: Status: Acute Code(s): G89.4 - Chronic pain syndrome (10) COPD (chronic obstructive pulmonary disease): Status: Chronic Code(s): J44.9 - Chronic obstructive pulmonary disease, unspecified (11) HTN (hypertension): Status: Chronic Code(s): I10 - Essential (primary) hypertension Meds Home Medications and Allergies Home Medications ?Medication ?Instructions ?Recorded ?Confirmed ?Type aspirin 81 mg chewable tablet 81 mg PO DAILY 11/27/19 07/02/25 History gabapentin 800 mg tablet 800 mg PO QID fibromyalgia pain 11/27/19 07/02/25 History levothyroxine 50 mcg tablet 50 mcg PO DAILY 11/27/19 07/02/25 History methadone 10 mg tablet 10 mg PO 0600,1200,1800,2359 11/27/19 07/02/25 History fibromyalgia pain ondansetron HCl 8 mg tablet 8 mg PO TIDP PRN Nausea 11/27/19 07/02/25 History pantoprazole 40 mg tablet,delayed 40 mg PO DAILY 11/28/19 07/02/25 History release clopidogrel 75 mg tablet 75 mg PO DAILY 07/07/22 07/02/25 History empagliflozin 25 mg tablet 25 mg PO DAILY 07/07/22 07/02/25 History (Jardiance) ergocalciferol (vitamin D2) 1,250 50,000 unit PO WEEKLY Supplement 12/02/23 07/02/25 History mcg (50,000 unit) capsule (Vitamin D2) escitalopram oxalate 20 mg tablet 20 mg PO DAILY 12/02/23 07/02/25 History fluticasone propionate 50 1 spray intranasal BID 12/02/23 07/02/25 History mcg/actuation nasal spray,suspension insulin aspart U-100 100 unit/mL 10 unit SQ TIDWMEAL Diabetes 12/02/23 07/02/25 History (3 mL) subcutaneous pen (Novolog FlexPen U-100 Insulin aspart) magnesium oxide 400 mg PO DAILY Supplement 12/02/23 07/02/25 History nitroglycerin 0.4 mg sublingual 0.4 mg sublingual Q5MINP PRN Chest 12/02/23 07/02/25 History tablet Pain insulin aspart U-100 100 unit/mL 1 sliding scale dose SQ 08/11/24 07/02/25 History subcutaneous solution (Novolog USEASDIRECTD U-100 Insulin aspart) insulin glargine 100 unit/mL 45 unit SQ HS 08/11/24 07/02/25 History subcutaneous solution (Lantus U-100 Insulin) mometasone-formoterol HFA 100 2 puff inhalation BID 90 days #13 08/11/24 07/02/25 Rx mcg-5 mcg/actuation aerosol grams inhaler (Dulera) bisoprolol fumarate 5 mg tablet 2.5 mg PO DAILY 08/14/24 07/02/25 History atorvastatin 80 mg tablet 80 mg PO DAILY #90 tabs 08/15/24 07/02/25 Rx bupropion HCl 300 mg 24 hr tablet, 300 mg PO DAILY 07/02/25 07/02/25 History extended release spironolactone 25 mg tablet 25 mg PO DAILY 07/02/25 07/02/25 History ketorolac 10 mg tablet 10 mg PO Q6H PRN pain 3 days #12 07/04/25 Rx tabs levofloxacin 750 mg tablet 750 mg PO Q48H #2 tabs 07/04/25 Rx New Prescriptions to Start Prescriptions: ketorolac iSm Gong levofloxacin Sim Gong Allergies Allergy/AdvReac Type Severity Reaction Status Date / Time Cephalosporins Allergy Unknown Verified 08/21/24 10:17 allergy reaction meperidine Allergy Unknown Verified 08/21/24 10:17 allergy reaction NSAIDS (Non-Steroidal Allergy Unknown Verified 08/21/24 10:17 Anti-Inflamma allergy reaction pregabalin Allergy Verified 08/21/24 10:17 Sulfa (Sulfonamide Allergy Unknown Verified 08/21/24 10:17 Antibiotics) allergy reaction sumatriptan Allergy Verified 08/21/24 10:17 tizanidine Allergy Verified 08/21/24 10:17 enoxaparin (From Lovenox) AdvReac Unknown Verified 08/21/24 10:17 allergy reaction nalbuphine AdvReac Unknown Verified 08/21/24 10:17 allergy reaction promethazine AdvReac Unknown Verified 08/21/24 10:17 allergy reaction Discharge Plan Disposition Patient Disposition: Home, Self-Care Condition: Good Follow up Plan Follow up with: Robina Downey [Primary Care Provider, Medical] - Enter time for follow up Referral Note: Please call office to schedule follow up appointment Kyle Wharton MD [Physician, Pulmonology] - Enter time for follow up Referral Note: Office will call with follow up appointment Nazario Michael MD [Staff Physician, Cardiology] - Enter time for follow up Referral Note: Office will call with follow up appointment Prescriptions/Medication Reconciliation: New levofloxacin 750 mg tablet 750 mg PO Q48H Qty: 2 0RF Rx Instructions: first dose due 07/06/25 ketorolac 10 mg tablet 10 mg PO Q6H PRN (Reason: pain) 3 Days Qty: 12 0RF Rx Instructions: Tolerated IV formulation as inpatient. Continued insulin glargine [Lantus U-100 Insulin] 100 unit/mL solution 45 unit SQ HS Rx Instructions: at night insulin aspart U-100 [Novolog U-100 Insulin aspart] 100 unit/mL solution 1 sliding scale dose SQ USEASDIRECTD Dulera 100-5 mcg/actuation HFA aerosol inhaler 2 puff inhalation BID 90 Days Qty: 13 2RF bisoprolol fumarate 5 mg tablet 2.5 mg PO DAILY Patient Comments: take one-half tablet (2.5 mg) by oral route once daily atorvastatin 80 mg tablet 80 mg PO DAILY Qty: 90 3RF ondansetron HCl 8 MG tablet 8 mg PO TIDP PRN (Reason: Nausea) methadone 10 MG tablet 10 mg PO 0600,1200,1800,2359 gabapentin 800 MG tablet 800 mg PO QID Patient Comments: TAKE 1 TABLET 4 TIMES EACH DAY levothyroxine 50 MCG tablet 50 mcg PO DAILY aspirin 81 MG tablet,chewable 81 mg PO DAILY pantoprazole 40 MG tablet,delayed release (DR/EC) 40 mg PO DAILY clopidogrel 75 mg tablet 75 mg PO DAILY Jardiance 25 mg tablet 25 mg PO DAILY Patient Comments: take 1 tablet (25 mg) by oral route once daily in the morning spironolactone 25 mg tablet 25 mg PO DAILY bupropion HCl 300 mg tablet extended release 24 hr 300 mg PO DAILY escitalopram oxalate 20 mg tablet 20 mg PO DAILY Patient Comments: TAKE ONE TABLET BY MOUTH DAILY insulin aspart U-100 [Novolog FlexPen U-100 Insulin] 100 unit/mL (3 mL) insulin pen 10 unit SQ TIDWMEAL Patient Comments: INJECT 10 UNITS UNDER THE SKIN THREE TIMES DAILY WITH MEALS ergocalciferol (vitamin D2) [Vitamin D2] 1,250 mcg (50,000 unit) capsule 50,000 unit PO WEEKLY Patient Comments: Take 1 capsule every week by oral route. fluticasone propionate 50 mcg/actuation [place],Suspension 1 spray INTRANASAL BID Rx Instructions: administer into each nostril magnesium oxide 400 mg magnesium Tablet 400 mg PO DAILY nitroglycerin 0.4 mg tablet, sublingual 0.4 mg sublingual Q5MINP PRN (Reason: Chest Pain) Patient Comments: DISSOLVE 1 TABLET UNDER THE TONGUE EVERY 5 MINUTES NEEDED FOR CHEST PAIN. DO NOT EXCEED A TOTAL OF 3 DOSES IN 15 MINUTES. Problem Reconciliation Problems Reviewed?: Yes Patient Discharge Instructions ACTIVITY: Continue current activity DIET: continue same diet Patient Instructions: Heart Failure, DI for Pneumonia -- Adult, DI for Hypoxia, Stop Light Pneumonia, Stop Light Heart Failure, Stop Light Infection Print Language: Norwegian Providers Primary Care Provider: Robina Downey Admit Provider: Sim Gong Attending Provider: Sim Gong
[2025-07-04 08:32] LABS: Albumin Level 4.0 g/dl (3.5-5.0); Chloride 93 mmol/L (98-107); Potassium 4.7 mmoL/L (3.5-5.1); Sodium 134 mmol/L (136-145)
[2025-07-04 08:34] LABS: Blood Urea Nitrogen 31 mg/dl (7-17); Creatinine Clearance Estimated 31 mL/min (50-200); Creatinine,Serum 1.20 mg/dl (0.52-1.04); Estimated Glomerular Filt Rate 45 ml/min (>60); GFR (African American) 54 ML/MIN (>60)
[2025-07-04 08:35] LABS: Alanine Aminotransferase 12 U/L (12-78); Albumin/Globulin Ratio 1.3 (1.1-1.8); Alkaline Phosphatase 85 U/L (38-126); Anion Gap 14.7 mEq/L (5-15); Aspartate Amino Transferase 53 U/L (14-36); Bilirubin,Total 0.4 mg/dl (0.2-1.3); Calcium 9.1 mg/dl (8.4-10.2); Carbon Dioxide 31 mmol/L (22.0-30.0); Globulin 3.2 g/dL (1.3-3.2); Glucose 146 mg/dl (74-100); Total Protein,Serum 7.2 g/dl (6.3-8.2)
[2025-07-04] MEDS: HEPARIN SODIUM 5,000 UNIT/ML VIAL 5000 UNIT SUBCUT (08:38)
[2025-07-04] MEDS: ASPIRIN 81MG CHEWABLE TABLET 81 MG PO (08:39)
[2025-07-04] MEDS: CLOPIDOGREL 75MG TAB 75 MG PO (08:40)
[2025-07-04] MEDS: BISOPROLOL 5MG TABLET 2.5 MG PO (08:40)
[2025-07-04] MEDS: MAGNESIUM OXIDE 400MG TABLET 400 MG PO (08:40)
[2025-07-04] MEDS: SPIRONOLACTONE 25MG TABLET 25 MG PO (08:40)
[2025-07-04] MEDS: ESCITALOPRAM 20MG TABLET 20 MG PO (08:40)
[2025-07-04] MEDS: EMPAGLIFLOZIN 25MG TABLET 25 MG PO (08:41)
[2025-07-04] MEDS: GABAPENTIN 800MG TABLET 800 MG PO (09:32)
--- NOTE | 2025-07-04 10:29 | PC.NURSE ---
patient reported that her IV was itching. while levaquin was infusing. this RN stopped the infusion and observed the site to bed red, no whelts or rash noted. IV checked for placement and blood return was observed. RR even and unlabored with no signs of distress. MD notified. benadryl cream applied to affected area per MD and ABX resumed. reevaluated patient with no reports of itching or redness after cream applied. patient stated IV felt much better.
--- NOTE | 2025-07-06 10:04 | SW/DCPLANNER ---
Spoke with patient on the phone. Patient stated that she is doing well. Patient stated that she is heading to her follow up appointment with her primary care provider. Patient stated that she is giving the other 2 to call her to schedule an appointment if she has not heard from them by noon then she is calling them. Patient stated that she wasnt able to get her new medicine but is picking it up today. Patient stated that she has no concerns or questions at this time. Yanique Wakefield
[2025-07-06 13:58] LABS: POC Glucose,Bedside 247 gm/dL (70-110)
== END 2025-07-04 11:57 | disposition home or self-care (01) ==
LOC: ER 07-02 00:22 → 2ND 07-02 00:40
PROVIDERS: Internal Medicine; Physician Assistant; Admitting Provider Internal Medicine Adolescent Medicine; Emergency Provider Student in an Organized Health Care Education/Training Program; PCP Nurse Practitioner Family; Visit Provider Internal Medicine Adolescent Medicine
DX: J96.21 Acute and chronic respiratory failure with hypoxia (principal); I11.0 Hypertensive heart disease with heart failure; I50.33 Acute on chronic diastolic (congestive) heart failure; E66.9 Obesity, unspecified; E11.69 Type 2 diabetes mellitus with other specified complication; E11.43 Type 2 diabetes mellitus with diabetic autonomic (poly)neuropathy; K31.84 Gastroparesis; G89.4 Chronic pain syndrome; E78.5 Hyperlipidemia, unspecified; N17.9 Acute kidney failure, unspecified; F32.A Depression, unspecified; E03.9 Hypothyroidism, unspecified; I25.10 Atherosclerotic heart disease of native coronary artery without angina pectoris; F11.10 Opioid abuse, uncomplicated; J84.9 Interstitial pulmonary disease, unspecified; I45.2 Bifascicular block; J44.89 Other specified chronic obstructive pulmonary disease; K76.0 Fatty (change of) liver, not elsewhere classified; R91.8 Other nonspecific abnormal finding of lung field; K21.9 Gastro-esophageal reflux disease without esophagitis; I25.2 Old myocardial infarction; Z86.718 Personal history of other venous thrombosis and embolism; Z68.41 Body mass index [BMI] 40.0-44.9, adult; Z85.42 Personal history of malignant neoplasm of other parts of uterus; Z99.81 Dependence on supplemental oxygen; Z88.1 Allergy status to other antibiotic agents; Z88.5 Allergy status to narcotic agent; Z88.2 Allergy status to sulfonamides; Z88.6 Allergy status to analgesic agent; Z88.8 Allergy status to other drugs, medicaments and biological substances; Z95.5 Presence of coronary angioplasty implant and graft; Z79.4 Long term (current) use of insulin; Z79.51 Long term (current) use of inhaled steroids; Z79.02 Long term (current) use of antithrombotics/antiplatelets; Z79.82 Long term (current) use of aspirin; Z79.890 Hormone replacement therapy; Z79.899 Other long term (current) drug therapy; Z79.891 Long term (current) use of opiate analgesic
CPT/HCPCS: 0223U; 36415; 71045; 71275; 74177; 80048; 80053; 81001; 82803; 82962; 83605; 83690; 83735; 83880; 84145; 84484; 85007; 85025; 85610; 87070; 87205; 89220; 93005; 94640; 94761; 96361; 96365; 96366; 96367; 96372; 96375; 96376; 97162; 97166; 99285; G0378; J1644; J1885; J1938; J1956; J2270; J2405; J3475; J7120; Q9967

== ENCOUNTER 2025-07-16 13:57 | Outpatient (CLI) | payer MEDICARE, SELFPAY ==
--- OUTSIDE RECORDS SUMMARY | 2025-07-16 14:00 | XMS_ITS | Clinical Summary ---
Author Organization [facility] Address [address] [place] [address] Phone Care Team Providers Care Electroplater Automatic Name Role Phone Bashir Lombardi MD [ ] Conditions or Problems Problem Name Problem Code Onset Date Status Entry Date Provider Comment Standard Description Annotate OBSTRUCTIVE SLEEP APNEA 53541219 (SNOMED CT) 01/01 Inactive 01/01 Sridevi Bishop Obstructive sleep apnea syndrome LONG-TERM (CURRENT) USE OF ANTICOAGULAN TS 333963555 (SNOMED CT) 07/02 Inactive 07/02 Sridevi Nordan Anticoagulant drug monitoring COPD 13767352 (SNOMED CT) 10/24 Active 10/24 Sridevi Nordan Chronic obstructive pulmonary disease Headache 12229943 (SNOMED CT) 10/24 Active 10/24 Sridevi Nordan Headache Hypoxia 841936937 (SNOMED CT) 10/24 Active 10/24 Sridevi Nordan Hypoxia Pneumonia 225657532 (SNOMED CT) 10/24 Active 10/24 Sridevi Nordan Pneumonia CHRONIC OSTEOMYELITI S RIGHT KNEE M86.669 (ICD-10-CM ) 01/01 Inactive 11/24 Sridevi Dario Other chronic osteomyelitis, unspecified tibia and fibula CHRONIC RIGHT KNEE PAIN M25.569 (ICD-10-CM ) 07/02 Inactive 07/02 Sridevi Nordroselia Pain in unspecified knee PRIMARY HYPERCOAGULA BLE STATE 60556315 (SNOMED CT) 07/02 Inactive 07/02 Sridevi Nordroselia Hypercoagulabil ity state HX OF SPLENECTOMY 387315460 (SNOMED CT) 11/24 Inactive 11/24 Sridevi Bishop H/O splenectomy ANXIETY 645267319 (SNOMED CT) 07/02 Inactive 07/02 Sridevi Edyroselia Anxiety disorder LONG-TERM (CURRENT) USE OF ANTICOAGULAN TS 758752819 (SNOMED CT) 07/02 Removed 07/02 Gisselle W Anticoagulant drug monitoring PRIMARY HYPERCOAGULA BLE STATE 80465202 (SNOMED CT) 07/02 Removed 07/02 Gisselle W Hypercoagulabil ity state COUMADIN THERAPY 788825209 (SNOMED CT) 11/24 Correction 11/24 Gisselle W Warfarin therapy started DM II E11.9 (ICD-10-CM ) 01/01 Active 01/01 Gisselle W Type 2 diabetes mellitus without complications ANXIETY 719626416 (SNOMED CT) 07/02 Removed 07/02 Sheron Patel RN Anxiety disorder CHRONIC RIGHT KNEE PAIN M25.569 (ICD-10-CM ) 07/02 Removed 07/02 Sheron Patel RN Pain in unspecified knee WHEEZING 15750143 (SNOMED CT) 01/01 Resolved 01/01 Sheron Patel RN Wheezing PNEUMONIA 859809354 (SNOMED CT) 01/01 Resolved 01/01 Sheron Patel RN Pneumonia ACUTE URI 71524706 (SNOMED CT) 01/01 Resolved 01/01 Sheron Patel bacteriology teacher upper respiratory infection OBSTRUCTIVE SLEEP APNEA 57449291 (SNOMED CT) 01/01 Removed 01/01 Gisselle W Obstructive sleep apnea syndrome ACUTE URI 44626982 (SNOMED CT) 01/01 Removed 01/01 Gisselle W Acute upper respiratory infection BORDERLINE DM II E11.9 (ICD-10-CM ) 01/01 Correction 01/01 W Type 2 diabetes mellitus without complications CHRONIC OSTEOMYELITI S RIGHT KNEE M86.669 (ICD-10-CM ) 01/01 Removed 11/24 Gisselle W Other chronic osteomyelitis, unspecified tibia and fibula PNEUMONIA 232637378 (SNOMED CT) 01/01 Removed 01/01 Gisselle W Pneumonia WHEEZING 69833698 (SNOMED CT) 01/01 Removed 01/01 Gisselle W Wheezing RIGHT KNEE INFECTION 682.6 (ICD-9-CM) 11/24 Resolved 11/24 Gisselle W Cellulitis and abscess of leg, except foot CIRRHOSIS OF LIVER WITHOUT MENTION OF ALCOHOL (SNOMED CT) 11/24 Resolved 11/24 Gisselle W Cirrhosis of liver PRIMARY HYPERCOAGULA BLE STATE 99098954 (SNOMED CT) 11/24 Correction 11/24 Gisselle W Hypercoagulabil ity state SECONDARY HYPERCOAGULA BLE STATE 28007325 (SNOMED CT) 11/24 Correction 11/24 Gisselle W Hypercoagulabil ity state CHRONIC OSTEOMYELITI S, LOWER LEG 645761133 (SNOMED CT) 11/24 Correction 11/24 Karina Sanford Chronic osteomyelitis of lower leg RIGHT KNEE INFECTION 682.6 (ICD-9-CM) 11/24 Removed 11/24 Karina Sanford Cellulitis and abscess of leg, except foot LEUKOCYTOSIS 502644824 (SNOMED CT) 11/24 Active 11/24 Karina Sanford Leukocytosis HX OF MRSA Z86.14 (ICD-10-CM ) 11/24 Active 11/24 Karina Sanford Personal history of Methicillin resistant Staphylococcus aureus infection SECONDARY HYPERCOAGULA BLE STATE 06756213 (SNOMED CT) 11/24 Removed 11/24 Karina Sanford Hypercoagulabil ity state PRIMARY HYPERCOAGULA BLE STATE 63020384 (SNOMED CT) 11/24 Removed 11/24 Karina Sanford Hypercoagulabil ity state COUMADIN THERAPY 096707233 (SNOMED CT) 11/24 Removed 11/24 Karina Sanford Warfarin therapy started HX OF SPLENECTOMY 785931144 (SNOMED CT) 11/24 Removed 11/24 Karina Sanford H/O splenectomy CIRRHOSIS OF LIVER WITHOUT MENTION OF ALCOHOL (SNOMED CT) 11/24 Removed 11/24 Karina Sanford Cirrhosis of liver Medications Medication Instructions Start Date Stop Date Generic Name [facility] Provider DOXYCYCLINE HYCLATE 100 MG CAPS DOXYCYCLINE HYCLATE 62338762558 Anetra D Ludmila PROVENTIL HFA 108 (90 Base) MCG/ACT INHALATION AEROSOL SOLUTION ALBUTEROL SULFATE 22700965081 Anetra D Ludmila NYSTATIN OINT NYSTATIN OINT 90896728785 Anetra D Ludmila NORVASC TABS AMLODIPINE BESYLATE TABS 55771519385 Anetra D Ludmila AMLODIPINE BESYLATE 10 MG TABS AMLODIPINE BESYLATE 84977181961 Anetra D Ludmila VITAMIN B-12 TABS CYANOCOBALAMIN TABS 73855331550 Rola Cruz REQUIP 0.5 MG ORAL TABLET ROPINIROLE HCL 90759008614 Rola Cruz PROTONIX 40 MG PACK PANTOPRAZOLE SODIUM 45941722967 Rola Cruz PREDNISONE 2.5 MG TABS PREDNISONE 73893768050 Rola Cruz PERCOCET 10-325 MG TABS OXYCODONE-ACETAM INOPHEN 67052370691 Rola Cruz AMLODIPINE BESYLATE 10 MG TABS AMLODIPINE BESYLATE 76484301853 Rola Cruz NITROSTAT 0.4 MG SUBL NITROGLYCERIN 33807991081 Rola Villalpandoty NEURONTIN 300 MG CAPS GABAPENTIN 32108151505 Rola Villalpandoty METHADONE HCL TABS METHADONE HCL TABS 52511121745 Rola Villalpandoty LORAZEPAM 0.5 MG TABS LORAZEPAM 99550694221 Rola Cruz LEVOTHYROXINE SODIUM 50 MCG TABS LEVOTHYROXINE SODIUM 41750227264 Rola Cruz LASIX 20 MG TABS FUROSEMIDE 36782497433 Rola Cruz VERAMYST 27.5 MCG/SPRAY NASAL SUSPENSION FLUTICASONE FUROATE 06085069632 Rola Cruz CALCIUM-VITAMIN D CALCIUM-VITAMIN D TABS 84139099918 Rola Cruz CALCITONIN (SALMON) 200 UNIT/ACT SOLN CALCITONIN (SALMON) 24239841461 oRla Villalpandoty ASPIRIN 81 MG ORAL TABLET ASPIRIN 76382020591 Rola Cruz PROTONIX 40 MG PACK PANTOPRAZOLE SODIUM 88557121037 Rola Cruz COUMADIN 3 MG ORAL TABLET WARFARIN SODIUM 31782023680 Rola Cruz ACCUNEB NEBU ALBUTEROL SULFATE NEBU 16159026924 Rola Cruz TESSALON PERLES 100 MG ORAL CAPSULE BENZONATATE 89373053100 Rola Cruz DOXYCYCLINE HYCLATE 100 MG CAPS DOXYCYCLINE HYCLATE 71016315375 Rola Cruz VITAMIN B-12 50 MCG TABS CYANOCOBALAMIN 10805924031 Rola Cruz PROTONIX 40 MG TBEC PANTOPRAZOLE SODIUM 76079633427 Rola Cruz AMLODIPINE BESYLATE TABS AMLODIPINE BESYLATE TABS 64521575998 Rola Cruz PROTONIX 40 MG PACK PANTOPRAZOLE SODIUM 00524681801 Rola Cruz AMLODIPINE BESYLATE 10 MG TABS AMLODIPINE BESYLATE 74437677102 Rola Cruz NITROSTAT 0.4 MG SUBL NITROGLYCERIN 02470947527 Rola Cruz LASIX 20 MG TABS FUROSEMIDE 69243048241 Rola Cruz FLONASE 50 MCG/ACT NASAL SUSPENSION FLUTICASONE PROPIONATE 55052746530 Rola Cruz CALCIDOL 8000 UNIT/ML ORAL SOLUTION ERGOCALCIFEROL 45481416835 Rola Cruz CALCIUM-VITAMIN D CALCIUM-VITAMIN D TABS 01179207278 Rola Cruz PREDNISONE 5 MG TABS take two each morning PREDNISONE 12798219964 Rola Cruz SYNTHROID 100 MCG TABS LEVOTHYROXINE SODIUM 76281165255 Rola Cruz TYLENOL 325 MG TABS ACETAMINOPHEN 39254874759 Rolarosa Villalpandoty REQUIP 0.5 MG ORAL TABLET ROPINIROLE HCL 52621168419 Rola Nancy PERCOCET TABS OXYCODONE-ACETAM INOPHEN TABS 70802491260 Rola Cruz NEURONTIN 300 MG CAPS GABAPENTIN 66291556410 Rola Villalpandoty METHADONE HCL TABS METHADONE HCL TABS 13247344335 Rola Cruz ATIVAN TABS LORAZEPAM TABS 05509764540 Rola Cruz COUMADIN TABLET WARFARIN SODIUM TABS 03663747601 Rola Cruz ASPIR-LOW TABLET DELAYED RELEASE ASPIRIN TBEC 95930813745 Rola Cruz ACCUNEB NEBU ALBUTEROL SULFATE [facility] 69455532466 Anetra D Keys TESSALON PERLES 100 MG ORAL CAPSULE BENZONATATE 11475366662 Anetra D Keys DOXYCYCLINE HYCLATE 100 MG CAPS DOXYCYCLINE HYCLATE 39868495462 Anetra D Keys VITAMIN B-12 50 MCG TABS CYANOCOBALAMIN 13609909916 Anetra D Keys PROTONIX 40 MG TBEC PANTOPRAZOLE SODIUM 35206883413 Anetra D Keys AMLODIPINE BESYLATE TABS AMLODIPINE BESYLATE TABS 17520878723 Anetra D Keys PROTONIX 40 MG PACK PANTOPRAZOLE SODIUM 66247088040 Anetra D Keys AMLODIPINE BESYLATE 10 MG TABS AMLODIPINE BESYLATE 89014105100 Anetra D Keys NITROSTAT 0.4 MG SUBL NITROGLYCERIN 07378332645 Anetra D Keys LASIX 20 MG TABS FUROSEMIDE 21765535577 Anetra D Keys FLONASE 50 MCG/ACT NASAL SUSPENSION FLUTICASONE PROPIONATE 56973194201 Anetra D Keys CALCIDOL 8000 UNIT/ML ORAL SOLUTION ERGOCALCIFEROL 39688642827 Anetra D Keys CALCIUM-VITAMIN D CALCIUM-VITAMIN D TABS 31648105504 Anetra D Keys FLUTICASONE PROPIONATE 50 MCG/ACT SUSP FLUTICASONE PROPIONATE 77337493985 Anetra D Keys PREDNISONE 5 MG TABS take two each morning PREDNISONE 80012223255 Bashir Lombardi MD SYNTHROID 100 MCG TABS LEVOTHYROXINE SODIUM 80943417651 Tamia Palm RN PROTONIX 40 MG TBEC PANTOPRAZOLE SODIUM 17009631897 Tamia Palm RN AMLODIPINE BESYLATE 10 MG TABS AMLODIPINE BESYLATE 58121962344 Tamia Palm RN NITROSTAT 0.6 MG SUBL NITROGLYCERIN 66112573354 Tamia Palm RN LEVOTHROID TABS LEVOTHYROXINE SODIUM TABS 43593674146 Tamia Palm RN LASIX TABS FUROSEMIDE TABS 97917782349 Tamia Palm RN CALCIUM 500 TABLET CALCIUM-MAGNESIU M-VITAMIN D TABS 73241674037 Tamia Ladwig RN TYLENOL 325 MG TABS ACETAMINOPHEN 74047674937 Anetra D Keys REQUIP 0.5 MG ORAL TABLET ROPINIROLE HCL 97041131663 Anetra D Keys PROTONIX 40 MG TBEC PANTOPRAZOLE SODIUM 11218769567 Anetra D Keys PERCOCET TABS OXYCODONE-ACETAM INOPHEN TABS 76990104662 Anetra D Keys AMLODIPINE BESYLATE 10 MG TABS AMLODIPINE BESYLATE 23845948202 Anetra D Keys NITROSTAT 0.6 MG SUBL NITROGLYCERIN 84059805545 Anetra D Keys NEURONTIN 300 MG CAPS GABAPENTIN 83302770810 Anetra D Keys METHADONE HCL TABS METHADONE HCL TABS 99135352407 Anetra D Keys ATIVAN TABS LORAZEPAM TABS 89929080580 Anetra D Keys LEVOTHROID TABS LEVOTHYROXINE SODIUM TABS 18023313804 Anetra D Keys LASIX TABS FUROSEMIDE TABS 59227623428 Anetra D Keys FLUTICASONE PROPIONATE 50 MCG/ACT SUSP FLUTICASONE PROPIONATE 75613148108 Anetra D Keys COUMADIN TABLET WARFARIN SODIUM TABS 24710603995 Anetra D Keys CALCIUM 500 TABLET CALCIUM-MAGNESIU M-VITAMIN D TABS 60354194773 Anetra D Keys ASPIR-LOW TABLET DELAYED RELEASE ASPIRIN TBEC 83910182879 Anetra D Keys Medications Administered No information available. Allergies, Adverse Reactions, Alerts Allergy Name Reaction Description Start Date Severity Status Provider BETADINE Moderate Active Rola Cruz IODINE Moderate Active Rola Cruz LEVAQUIN Moderate Active Rola Cruz NONSTEROIDAL ANTI-INFLAMMATORIES INCLUDING ASPIRIN Moderate Active Rola Westbrookherty NSAIDS Moderate No Longer Active Rolarosa WestbrookCruz NUBAIN Moderate Active Tamia Rodriguez lucho RN NSAIDS Moderate No Longer Active Tamai Palm RN PHENERGAN Moderate Active Tamia Rodriguez [...] Procedures Code Procedure Name Date Entry Date CPT-67039 CMP CPT-50608 CBC with Differential 11/25 CPT-96629 Sedimentation Rate (ESR) 201 11/26/10 Vital Signs [...]
--- OUTSIDE RECORDS SUMMARY | 2025-07-16 14:01 | XMS_ITS | Clinical Summary ---
Author Organization [facility] Address [address] [place] [address] Care Team Providers Care Air Quality Manager Name Role Phone Robina Downey APRN Primary Care Provider [phone] Allergies Active Allergy Reactions Criticality Noted Date [...] Breakfast. Active vitamin D (ERGOCALCIFEROL) 1.25 MG (37495 UT) capsule capsule Take 2 capsules by [...] 12/03/2022 Non-cardiac chest pain 12/03/2022 Overview (12/05/2022): [facility] admission for chest pain with trivial [...] bridging Lovenox Coronary artery disease invo lving tolowa dee-ni' coronary artery of tolowa de[place]-ni' heart with angina pectoris 11/22/2016 Overview (12/05/2022): [...] patent stents. 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 On chronic prednisone Morbid obesity 04/26/2016 Resolved Problems Problem Noted Date Diagnosed Date Resolved Date Unstable angina 12/03/2022 12/05/2022 Overview (12/04/2022): Added automatically from request for surgery [id number] Acute on chronic respiratory failure with hypoxia [...] (03/22/2021): Added automatically from request for surgery [id number] Acute on chronic congestive heart failure 02/02/2021 [...] 01/28/2024 01/27/2019, 08/28/2017, 01/28/2015, Additional history exists INFLUENZA VACCINE 05/15/2025 10/30/2023, , 08/31/2021, Additional history exists COVID-19 Vaccine (4 - 2024-2 6 season) 2025 07/21/2021, 01/13/2021, 12/16/2020 TDAP/TD VACCINES (2 - Td or Tdap) 05/18/2031 021 HEMOGLOBIN A1C Discontinued 08/01/2023, 04/14, 01/30/2023, Additional history exists Medical Devices Implanted Type Area Range Aide Device Identifier Shelf Expiration Date Model / Serial / Lot Implant-02/10/20 16 Implanted:02/09 (Quantity not on file) Implant REVEAL LINQ / [id number] / Implant-02/10/20 16 Implanted:Qty: 1 on 02/10/2016 Implant MEDTRONIC MEDTRONIC LINQ / [id number] / Reveal Linq-02/10/2016 Implanted:02/09 (Quantity not on file) MEDTRONIC LINQ / [id number] / Stnt Xience Carmela Everolimus Simba 4x38mm - [id number] Implanted:Qty: 1 on 02/02/2021 by Jake Pradhan IV, MD at [facility]ULAR [id number] / / [id number] Stnt Xience Carmela Everolimus Simba 2.5x28mm - [id number] Implanted:Qty: 1 on 02/02/2021 by Jake Pradhan IV, MD at [facility] VASCULAR [id number] / / [id number] Procedures Procedure Name Priority Date/Time Associated Diagnosis Comments LIPID PANEL Routine 12/06/2022 11:00 AM EST HEMOGLOBIN A1C Add-On 12/05/2022 7:39 AM EST POCT OCCULT BLOOD STOOL STAT 10/10/2017 3:27 AM EST from Last 3 Months or Most Recently Relevant to Health Maintenance Results * Lipid Panel (12/06/2022 11:00 AM EST) Total Cholesterol 106 0 - 200 mg/dL 12/06/2022 12:14 PM EST [facility] Triglycerides 114 0 - 150 mg/dL 12/06/2022 12:14 PM EST [facility] HDL Cholesterol 41 40 - 60 mg/dL 12/06/2022 12:14 PM EST [facility] LDL Cholesterol 44 0 - 100 mg/dL 12/06/2022 12:14 PM EST [facility] VLDL Cholesterol 21 5 - 40 mg/dL 12/06/2022 12:14 PM EST [facility] LDL/HDL Ratio 1.03 12/06/2022 12:14 PM EST [facility] Blood Venipuncture / Unknown 12/06/2022 11:00 AM EST 12/06/2022 11:33 AM EST Narrative [facility] - 12/06/2022 12:14 PM [...] MD LAB BLOOD ORDERABLES Final Res ult [facility]
[address] [place] [address], * (ABNORMAL) Hemoglobin A1c (12/05/2022 7:39 AM EST) Hemoglobin A1C 8.10(H) 4.80 - 5.60 % 12/05/2022 11:03 AM EST [facility] Blood Venipuncture / Unknown 12/05/2022 7:39 AM EST 12/05/2022 7:48 AM EST Narrative [facility] - 12/05/2022 11:03 AM EST Hemoglobin A1C Ranges: Increased Risk for Diabetes 5.7% to 6.4% Diabetes >= 6.5% Diabetic Goal < 7.0% Shay Trujillo PA-C LAB BLOOD ORDERABLES Final R esult [facility]
[address] [id number], * POCT Occult Blood, stool (10/10/2017 3:27 AM EST) Fecal Occult Blood Negative Negative [facility] Lot Number [id number] 13R [facility] Expiration Date 2019 [facility] DEVELOPER LOT NUMBER [id number] [facility] DEVELOPER EXPIRATION DATE 2019 [facility] Positive Control Positive Positive [facility] Negative Control Negative Negative [facility] Stool Specimen from rectum / Unknown 10/10/2017 3:27 AM EST Sb Kitchen MD POINT OF CARE TEST ORDERABLE S Final Result [facility]
[address] [place] [address], from Last 3 Months or Most Recently [...] Of Support Discussed With: Patient Care Teams Air Quality Manager Relationship Specialty Start Date End Date Robina Downey APRN [address] [place] [address] PCP - General Nurse Practitioner 07/19/19
--- OUTSIDE RECORDS SUMMARY | 2025-07-16 14:01 | XMS_ITS | Encounter Summary ---
Author Organization [facility] Address [address] [place] [address] Care Team Providers Care Precision Layout Worker Name Role Phone Robina Downey APRN Primary Care Provider [phone] Encounter Details Date Type Department Care Team (Late st Contact Info) Description 04/02/2015 External CPT II DATA OPERATIONS LEADER - [facility] Social History Tobacco Use [...] documented as of this encounter Care Teams Precision Layout Worker Relationship Specialty Start Date End Date Robina Downey APRN [address] [place] [address] PCP - General Nurse Practitioner 07/19/19 documented as of this encounter
--- OUTSIDE RECORDS SUMMARY | 2025-07-16 14:01 | XMS_ITS | Clinical Summary ---
Author Organization [facility] Address [address] [place] [address] Care Team Providers Care Oil Laboratory Analyst Name Role Phone Shayan Robina Vince VELIZ Primary Care Provider [phone] Allergies Active Allergy Reactions Criticality Noted Date [...] Noted Date Diagnosed Date Coronavirus infection 12/13/2021 Chronic diastolic CHF (congestive heart failure) 12/13/2021 Adverse effect of other prim arily systemic and hematological agents, initial encounter 11/28/2021 Articular cartilage disorder of hip 11/28/2021 Wheezing 11/28/2021 Backache 11/28/2021 Hip pain 11/28/2021 Knee pain 11/28/2021 Pain of left lower extremity 11/28/2021 Carpal tunnel syndrome 11/28/2021 Other synovitis and tenosynovitis, unspecified h and 11/28/2021 COPD with acute exacerbation 11/28/2021 Chronic bronchitis 11/28/2021 Anxiety disorder 11/28/2021 Depressive disorder 11/28/2021 Osteoarthritis of knee 11/28/2021 Abnormal mammogram 11/28/2021 Class 3 severe obesity due t o excess calories with body mass index (BMI) of 40.0 to 44.9 in adult 11/28/2021 Obesity 11/28/2021 Abdominal abscess 11/21/2021 Acquired trigger finger 11/21/2021 Allergic rhinitis 11/21/2021 Blood coagulation disorder 11/21/2021 Aseptic necrosis of bone 11/21/2021 Blood glucose abnormal 11/21/2021 Candidiasis of mouth 11/21/2021 Chill 11/21/2021 Deep venous thrombosis of lower extremity 2021 Diastolic dysfunction 11/21/2021 Disorder of tendon 11/21/2021 Generalized osteoarthritis 11/21/2021 Esophageal dysmotility 11/21/2021 Herpes zoster 11/21/2021 Herpes zoster with nervous system complication 0 11/21/2021 Hypertensive heart disease 11/21/2021 Hypoxemia 11/21/2021 Idiopathic peripheral autonomic neuropathy 11/21 Leukocytosis 11/21/2021 Localized, primary osteoarthritis 11/21/2021 Megaloblastic anemia due to vitamin B12 deficien cy 11/21/2021 Migraine 11/21/2021 Myoclonus 11/21/2021 Nonalcoholic steatohepatitis 11/21/2021 Old bucket handle tear of medial meniscus 2021 Arthritis of knee 11/21/2021 Osteoporosis 11/21/2021 Pathological fracture of vertebra 11/21/2021 Peripheral neuropathic pain 11/21/2021 Pulmonary embolism 11/21/2021 Restless legs 11/21/2021 Acute asthma 11/21/2021 Thromboembolism of vein 11/21/2021 Vitamin D deficiency 11/21/2021 Hollenhorst plaque, left eye 11/21/2021 Herpes zoster dermatitis of eyelid 11/21/2021 TIA (transient ischemic attack) 11/21/2021 Mild intermittent asthma with acute exacerbation 03/23/2021 PVC (premature ventricular contraction) 03/23/20 21 Anxiety associated with depression 03/21/2021 Bronchospasm, acute 03/21/2021 Dysphagia 03/21/2021 History of splenectomy 03/21/2021 GERD (gastroesophageal reflux [...] changes Chronic CT scan changes Hypothyroidism 11/01/2018 Essential hypertension 03/27/2018 Overview (11/21/2021): Target blood pressure <130/80 mmHg Target blood pressure <130/80 mmHg Shoulder pain 08/09/2017 Adhesive capsulitis of shoulder 08/09/2017 COPD (chronic obstructive pulmonary disease) 05/2017 Coronary artery disease invo lving chicken ranch coronary artery of chicken ranch heart without angina pectoris 11/22/2016 Overview (11/21/2021): [...] Problem Noted Date Diagnosed Date Resolved Date URI (upper respiratory infection) 12/13/2021 07/05/2025 Acute bronchitis 11/28/2021 07/05/2025 Chronic sinusitis 11/28/2021 07/05/2025 Abdominal pain 11/21/2021 07/05/2025 Candidal vulvovaginitis 11/21/202108/15 Central chest pain 11/21/2021 Cramp in limb 11/21/2021 07/05/2025 Diarrhea 11/21/2021 07/05/2025 Gastroenteritis 11/21/2021 07/05/2025 Malaise and fatigue 11/21/2021 07/05/20 25 Hematoma 11/21/2021 07/05/2025 Nausea and vomiting 11/21/2021 07/05/20 25 Otitis media 11/21/2021 07/05/2025 Pneumonia 11/21/2021 07/05/2025 Urinary tract infectious disease 11/21/2021 07/05/2025 Combined forms of age-relate d cataract of both eyes 11/21/2021 07/05/2025 Syncope and collapse 03/21/2021 025 Overview (11/21/2021): Occasional HR in 50s Patient [...] out, can discuss explant in the future. Ground glass opacity present on imaging of lung 04/05/2018 07/05/2025 Overview (11/21/2021): Diffuse GGO's noted on CT scans 06/27/2020 and 02/02/[address] Diffuse [address]'s noted on CT scans 06/27/2020 and 02/02/2021 Immunizations Immunization Administration Dates Next Due Influenza, [...] Description 09/16/2025 1:00 PM EST Office Visit [facility] [address] [place] [place] [address] Bashir Ortiz MD [address] [place] [address] Health Maintenance Due Date Last Done Comments [facility]-Bone Density Scan 1957 [facility]-Depression Screening 1957 [facility]-Hepatitis C Screening 1955 [facility]-Medicare Annual Wellness (AWV) 1955 [facility]-Infant/Child/Adol SDOH Screenings 1955 [facility]-HIB Vaccines (1 of [...] A1C 06/12/202210/2021, 11/21/2021, 03/24/2021, Additional history exists [id number] Vaccine ( season) 2025 07/21/2021, 01/13/2021, 12/16/2020 [...] this topic Medical Devices Implanted Type Area Nurse'S Companion Device Identifier Shelf Expiration Date Model / Serial / Lot Medtronic Reveal- 016 Implanted: (Quantity not on file) Implantable Loop Recorder Left: Chest [id number] S / / Lens [id number] 16.5 - [id number] Implanted:Qty : 1 on 03/06/2022 by Bashir Ortiz MD at [facility] Right: Eye [employer]-[id number] 08/10/2026 [id number].16 5 / [id number] / [id number] Lens [id number] 17 - [id number] Implanted:Qty : 1 on 09/11/2022 by Bashir Ortiz MD at [facility] Left: Eye [employer]-[id number] 04/07/2027 SN60WF.17 0 / [id number] / [id number] Procedures Procedure Name Priority Date/Time Associated [...] Adults <6.0% Children and Adolescents <7.5% Source: [place] [employer]. Standards of medical care in diabetes,2017. Diabetes Care.2017:40 (suppl 1):S1-S135. HbA1c assay performed by an ion-exchange chromatography method that is certified traceable to the DCCT. us Glenn Parker MD LAB BLOOD ORDERABLES Final Res ult [facility] [address] [place] [address] from Last 3 Months or Most Recently Relevant to Health Maintenance Insurance MEDICARE Advance Directives * Full Code (Latest Code Status on File) Date Activated Date Inactivated Comments 11/21/2021 8:51 PM 11/22/2021 7:39 PM Question Answer Comments Patient has decision-making capacity? Yes Care Teams Oil Laboratory Analyst Relationship Specialty Start Date End Date Robina Downey APRN [address] [place] [address] PCP - General 02/25/21
--- NOTE | 2025-07-16 14:02 | XR_ITS ---
FINAL REPORT CLINICAL HISTORY: PAIN, SPONDYLOSIS W/OUT MYELOPATHY OR RADICULOPATHY COMPARISON: None FINDINGS: LEFT SHOULDER 3 views of the left shoulder were obtained. There is no acute fracture or dislocation. There is moderate narrowing of the glenohumeral joint space. Moderate hypertrophic changes are noted at the inferior margin of the humeral head. Well corticated ossific density is noted in the joint space measuring 1.3 cm, probable intra-articular loose body. IMPRESSION: Moderate changes of osteoarthritis. Intra-articular loose body. No acute bony abnormality. Reviewed, Interpreted and Dictated by Trenton Seo MD Transcribed by Valerie Garsia Authenticated and [facility]
--- NOTE | 2025-07-16 14:02 | XR_ITS ---
FINAL REPORT CLINICAL HISTORY: Neck pain with radiculopathy COMPARISON: None FINDINGS: CERVICAL SPINE 7 views were obtained. There is no acute fracture or malalignment. Vertebral body heights are preserved. Cervical lordosis is preserved. The disc spaces are preserved. The patient is edentulous. No change with flexion or extension. IMPRESSION: No acute process. Reviewed, Interpreted and Dictated by Trenton Seo MD Transcribed by Valerie Garsia Authenticated and [facility]
[2025-07-16 16:08] LABS: Hematocrit 36.7 % (37.0-47.0); Hemoglobin 11.4 g/dL (12.2-16.2); Immature Granulocytes % 0.7 %; Mean Corpuscular HGB Conc 31.1 g/dL (31.8-35.4); Mean Corpuscular Hemoglobin 30.8 pg (27.0-31.2); Mean Corpuscular Volume 99.2 fl (81-99); Nucleated Red Blood Cells % 0 %; Platelet Count 525 K/mm3 (142-424); Red Blood Count 3.70 M/mm3 (4.20-5.40); Red Cell Distribution Width-SD 53.9 fL; White Blood Count 16.6 K/mm3 (4.8-10.8)
[2025-07-16 17:36] LABS: Albumin Level 3.8 g/dl (3.5-5.0); Chloride 100 mmol/L (98-107)
[2025-07-16 17:37] LABS: Potassium 4.3 mmoL/L (3.5-5.1); Sodium 135 mmol/L (136-145)
[2025-07-16 17:39] LABS: Alanine Aminotransferase 15 U/L (12-78); Anion Gap 15.3 mEq/L (5-15); Aspartate Amino Transferase 28 U/L (14-36); Bilirubin,Unconjugated 0.2 mg/dL (0.0-1.1); Carbon Dioxide 24 mmol/L (22.0-30.0); Total Protein,Serum 7.0 g/dl (6.3-8.2)
[2025-07-16 17:40] LABS: Alkaline Phosphatase 138 U/L (38-126); Bilirubin,Direct 0.4 mg/dl (0.0-0.4); Bilirubin,Indirect 0.2 mg/dL (0.0-0.9); Bilirubin,Total 0.6 mg/dl (0.2-1.3); Calcium 9.3 mg/dl (8.4-10.2); Cholesterol 135 mg/dl (140-200); Glucose 191 mg/dl (74-100); HDL Cholesterol 48 mg/dl (40-60); Magnesium 1.7 mg/dl (1.6-2.3); Triglycerides 134 mg/dl (30-150)
[2025-07-16 17:47] LABS: Free T4 (Free Thyroxine) 1.22 ng/dl (0.78-2.19)
[2025-07-16 18:01] LABS: Blood Urea Nitrogen 15 mg/dl (7-17); Creatinine,Serum 1.30 mg/dl (0.52-1.04); Estimated Glomerular Filt Rate 41 ml/min (>60); GFR (African American) 49 ML/MIN (>60)
[2025-07-16 18:13] LABS: Thyroid Stimulating Hormone 2.51 uIU/mL (0.465-4.68)
== END 2025-07-16 23:59 | disposition home or self-care (01) ==
PROVIDERS: Internal Medicine; PCP Nurse Practitioner Family; Visit Provider Pain Medicine Interventional Pain Medicine
DX: M19.012 Primary osteoarthritis, left shoulder (principal); M24.012 Loose body in left shoulder; M47.812 Spondylosis without myelopathy or radiculopathy, cervical region; I10 Essential (primary) hypertension; I25.10 Atherosclerotic heart disease of native coronary artery without angina pectoris; E03.9 Hypothyroidism, unspecified; E78.5 Hyperlipidemia, unspecified
CPT/HCPCS: 36415; 72052; 73030; 80048; 80061; 80076; 83735; 84439; 84443; 85025

== ENCOUNTER 2025-08-05 07:25 | Outpatient (CLI) | payer MEDICARE, SELFPAY ==
--- OUTSIDE RECORDS SUMMARY | 2025-08-05 07:27 | XMS_ITS | Encounter Summary ---
Author Organization [employer] ([place], [place], [place], [place]) Address [address] [place] [address] Care Team Providers Care Director Money Name Role Phone Unavailable Primary Care Provider Unavailabl e Encounter Details Date Type Department Care Team (Late st Contact Info) Description 01/04/2019 Transcribed Document [facility] [place] Family Medicine [address] [place] [address] ProviderKentrell MD [address] [place] [address] Social History Tobacco Use Types Packs/Day Years Used Date Smoking Tobacco: Never Assessed Comments Unknown Sex and Gender Information Value Date Recorded Sex Assigned at Not on file Legal Sex Female 5:31 PM CDT Gender Identity Not on file Sexual Orientation Not on file documented as of this encounter Miscellaneous Notes * Cerner Conversion Note - Kentrell Lorenzo MD - 01/04/2019 11:08 PM CDT Education-(VTE) / (DVT) Entered On: 01/05/2019 4:31 EDT Performed On: 01/04/2019 23:08 EDT by Armand rCistobal Rn Teaching/Learning Assessment Barriers To Learning : None evident Individuals Taught : Patient Readiness to Learn : Uncooperative Baseline Knowledge of Topic : Good Readiness to Learn : Explanation Learning Style Preferences Patient : Verbal explanation Learning Style Preferences Family : Verbal explanation Armand Cristobal Rn - 01/05/2019 4:30 EDT documented in this encounter Plan of Treatment Not on file documented as of this encounter Visit Diagnoses Not on filedocumented in this encounter
--- OUTSIDE RECORDS SUMMARY | 2025-08-05 07:27 | XMS_ITS | Encounter Summary ---
Author Organization [email or web address] ([place], [place], [place], [place]) Address [address] [place] [address] Care Team Providers Care Straddle Bug Operator Name Role Phone Unavailable Primary Care Provider Unavailabl e Encounter Details Date Type Department Care Team (Late st Contact Info) Description 01/04/2019 Transcribed Document [facility] [place] [address] [place] [address] ProviderKentrell MD [address] [place] [address] Social History Tobacco Use Types Packs/Day Years Used Date Smoking Tobacco: Never Assessed Comments Unknown Sex and Gender Information Value Date Recorded Sex Assigned at Not on file Legal Sex Female 5:31 PM CDT Gender Identity Not on file Sexual Orientation Not on file documented as of this encounter Miscellaneous Notes * Cerner Conversion Note - Kentrell ProviderMD - 01/04/2019 11:08 PM CDT Education-Diabetes Topics Entered On: 01/05/2019 4:31 EDT Performed On: 01/04/2019 23:08 EDT by Armand Cristobal Rn Teaching/Learning Assessment Barriers To Learning : None evident Individuals Taught : Patient Readiness to Learn : Cooperative Baseline Knowledge of Topic : Good Readiness to Learn : Explanation Learning Style Preferences Patient : Verbal explanation Learning Style Preferences Family : Verbal explanation Armand Cristobal Rn - 01/05/2019 4:31 EDT documented in this encounter Plan of Treatment Not on file documented as of this encounter Visit Diagnoses Not on filedocumented in this encounter
--- OUTSIDE RECORDS SUMMARY | 2025-08-05 07:27 | XMS_ITS | Encounter Summary ---
Author Organization [employer] ([place], [place], [place], [place]) Address [address] [place] [address] Care Team Providers Care Head Cager Name Role Phone Unavailable Primary Care Provider Unavailabl e Encounter Details Date Type Department Care Team (Late st Contact Info) Description 01/04/2019 Transcribed Document [facility] [place] Family Medicine [address] [place] [address] ProviderKentrell MD [address], [place] [address] Social History Tobacco Use Types Packs/Day Years Used Date Smoking Tobacco: Never Assessed Comments Unknown Sex and Gender Information Value Date Recorded Sex Assigned at Not on file Legal Sex Female 5:31 PM CDT Gender Identity Not on file Sexual Orientation Not on file documented as of this encounter Miscellaneous Notes * Cerner Conversion Note - Kentrell ProviderMD - 01/04/2019 11:08 PM CDT Evaluation, Occupational Therapy Entered On: 01/05/2019 8:41 EDT Performed On: 01/05/2019 8:14 EDT by CARLOS ENRIQUE CERON OTR/Hal General Information, OT Therapy Diagnosis, OT : Decline in ADLs due to weakness. Onset of Problem, OT : 01/05/2019 EDT General Information Comment, OT : Acute respiratory failure. PNA. Pulmonary work up. Pelvic hematoma. Hx DVTS, PE. Pt has been on 02 since October 2018. CARLOS ENRIQUE CERON OTR/Hal - 01/05/2019 9:04 EDT Visit Type, OT : Initial evaluation Patient Orders : Order Date Order Ordering 01/04/2019 23:08 OT Evaluation and Treatment Ordered By: MARIANNA, JEANETTE, DO Active Diagnoses : No Qualifying Diagnoses Admission Date : 01/04/2019 21:58 Personal Devices : Personal Devices No Devices Recorded Assistive Devices : Assistive Devices No Devices Recorded CARLOS ENRIQUE CERON OTR/Hal 01/05/2019 8:41 EDT General Status Patient Received Status : Supine in bed Treatment Start Time : 01/05/2019 8:04 EDT Patient Left Status : Supine in bed, RN/PCT informed, All needs met and within reach RN/PCT Informed Comment : ILIANA watson. Treatment End Time : 01/05/2019 8:14 EDT Treatment Time : 10 Minute(s) CARLOS ENRIQUE CERON OTR/Hal - 01/05/2019 9:04 EDT History and Environment, OT Living Situation, Therapy : Home Patient Lives With : Other: Pt's grandson has been home with her recently, 17 yrs old Persons Assisting Patient at Home : Alone Professional Skilled Services : None Persons Providing Information : Patient Home Equipment, Therapy : Other: cane, walker as needed. Home Setup : One story Stairs : No CARLOS ENRIQUE CERON OTR/Hal 01/05/2019 9:04 EDT Prior LOF Bathing, OT : Independent Prior LOF Bed Mobility : Independent Prior LOF Upper Body Dressing, OT : Independent Prior LOF Lower Body Dressing, OT : Independent Prior LOF Toileting : Independent Prior LOF Transfer : Independent Prior LOF Grooming, OT : Independent Prior LOF for IADLs, OT : Independent CARLOS ENRIQUE CERON OTR/Hal 01/05/2019 9:04 EDT Prior LOF for IADLs, OT : Pt states she lives at home alone, but her 17 yr old grandson has been there with her recently. Pt completes ADLs independently, but makes sure her grandson is there when she takes a shower. CARLOS ENRIQUE CERON OTR/Hal 01/05/2019 9:04 EDT Upper Extremity Right UE Active ROM : WFL Left UE Active ROM : WFL Right UE Strength Comment : WFL. UE shoulder issues. Left UE Strength Comment : Left ring finger curling. New issue. CARLOS ENRIQUE CERON OTR/Hal 01/05/2019 9:04 EDT Self Care/Home Management, OT Self Feeding Assist Level, OT : Supervision or set-up Grooming Assist Level, OT : Supervision or set-up Bathing Assist Level, OT : Assist, minimal Upper Body Dressing Assist Level, OT : Supervision or set-up Lower Body Dressing Assist Level, OT : Assist, minimal Toileting Assist Level : Supervision or set-up Toilet Transfer Assist Level : Assist, minimal CARLOS ENRIQUE CERON OTR/L 01/05/2019 9:04 EDT Functional Mobility Mobility Grid Supine to Sit : Supervision/set-up Sit to Supine : Supervision/set-up CARLOS ENRIQUE CERON OTR/L 01/05/2019 9:04 EDT Cognition Assessment, OT Orientation : Oriented x 4 Cognition Assessment, OT : Intact CARLOS ENRIQUE CERON OTR/L 01/05/2019 9:04 EDT Indication Assessment, OT Occupational Therapy Indicated : Yes Interdisciplinary Consultation(s) Needed : Yes Interdisciplinary Consult, OT : Physical Therapy Problem List, OT : Impaired, bed mobility, Impaired, activities daily living, Impaired, endurance tolerance, Impaired functional mobility, Impaired, standing balance, Impaired, strength, Impaired, transfers Potential Barriers, OT : None evident Rehabilitation Potential, OT : Good CARLOS ENRIQUE CERON OTR/L 01/05/2019 9:04 EDT Plan of Care, OT OT Tx Plan/Goals Established w Patient : Yes OT Frequency Rehab : Five days per week OT Duration Rehab : Fourteen days CARLOS ENRIQUE CERON OTR/L 01/05/2019 9:04 EDT Senior Living Goals, OT Grooming LTG Grid Goal #1 Activity : Grooming Assist : Independent, modified Date to Meet : 01/19/2019 EDT Goal Status : Initial goal CARLOS ENRIQUE CERON OTR/L 01/05/2019 9:04 EDT Bathing LTG Grid Goal #1 Activity : Bathing Assist : Independent, modified Date to Meet : 01/19/2019 EDT Goal Status : Initial goal CARLOS ENRIQUE CERON OTR/L 01/05/2019 9:04 EDT Dressing, Lower Body LTG Grid Goal #1 Activity : Dressing, Lower Body Assist : Independent, modified Date to Meet : 01/19/2019 EDT Goal Status : Initial goal CARLOS ENRIQUE CERON OTR/L 01/05/2019 9:04 EDT Toilet Transfer LTG Grid Goal #1 Activity : Toilet Transfer, Ambulatory Assist : Independent, modified Date to Meet : 01/19/2019 EDT Goal Status : Initial goal CARLOS ENRIQUE CERON OTR/Hal - 01/05/2019 9:04 EDT Bed Mobility/ Bed Transfer LTG Grid Goal #1 Activity : Bed Mobility/Bed Transfer Assist : Independent, modified Date to Meet : 01/19/2019 EDT Goal Status : Initial goal CARLOS ENRIQUE CERON OTR/Hal - 01/05/2019 9:04 EDT Treatment Note Subjective Comment : Pt agreeable. Patient's Response to Treatment : Pt responding well. Pt with pain in movement due to abdominal hematoma. Pt also states that her 02 will drop with very little movement. Pt on 3 L. 02 at 98 following eval. Pt states she is very motivated to return to baseline and to continue to complete ADLs independently. Additional Objective Information : Pt came to EOB with supervision, labored. Pt in pain. Pt sat EOB for formal OT eval. Supervision sit to supine. Assessment : Pt will benefit from skilled OT during this hospital stay to address increased independence and safety in all ADLs prior to d//c. Plan for Treatment : See LTGS CARLOS ENRIQUE CERON OTR/Hal - 01/05/2019 9:04 EDT Pain Assessment Pain Comment : Abdominal pain with movement. CARLOS ENRIQUE CERON OTR/Hal - 01/05/2019 9:04 EDT Image 1 - Images currently included in the form version of this document have not been included in the text rendition version of the form. Anticipated Discharge Needs, OT/PT Anticipated Discharge to OT : Other: Pulmonary rehab CARLOS ENRIQUE CERON OTR/Hal - 01/05/2019 9:[address] [facility] OT Charges OT Eval Moderate Complexity : 1 CARLOS ENRIQUE CERON OTR/Hal - 01/05/2019 9:04 EDT documented in this encounter Plan of Treatment Not on file documented as of this encounter Visit Diagnoses Not on filedocumented in this encounter
--- OUTSIDE RECORDS SUMMARY | 2025-08-05 07:27 | XMS_ITS | Encounter Summary ---
Author Organization [employer] ([place], [place], [place], [place]) Address [address] [place] [address] Care Team Providers Care Yarn Weight And Strength Tester Name Role Phone Unavailable Primary Care Provider Unavailabl e Encounter Details Date Type Department Care Team (Late st Contact Info) Description 01/04/2019 Transcribed Document [facility] [place] Family Medicine [address] [place] [address] ProviderKentrell MD [facility] [place] [address] Social History Tobacco Use Types Packs/Day Years Used Date Smoking Tobacco: Never Assessed Comments Unknown Sex and Gender Information Value Date Recorded Sex Assigned at Not on file Legal Sex Female 5:31 PM CDT Gender Identity Not on file Sexual Orientation Not on file documented as of this encounter Miscellaneous Notes * Cerner Conversion Note - Kentrell ProviderMD - 01/04/2019 9:56 PM CDT Admission History, Adult Entered On: 01/04/2019 22:11 EDT Performed On: 01/04/2019 21:56 EDT by Armand Cristobal Rn Advance Directive Patient has Advance Directive *Q : No, patient refuses Advance Directive information Armand Cristobal Rn - 01/04/2019 22:04 EDT Anesthesia/Transfusion History Family History of Anesthesia Reaction : Prior transfusion without reaction Transfusion History : Prior anesthesia without reaction Family History of Anesthesia Reaction : None Armand Cristobal Rn - 01/04/2019 22:04 EDT Functional Assessment Living Situation : Home Current Home Treatments : Other: prescription medications. PRN oxygen at home Armand Cristobal Rn - 01/04/2019 22:04 EDT General Info Want Family/Rep/Phys Notified of Admit : No Emergency Contact #1 : Melanie bull Emergency Contact #1 Phone Number : [phone] Emergency Contact #1 Relationship : daughter Emergency Contact #2 : Lukasz Mcdaniel Emergency Contact #2 Phone Number : [phone] Emergency Contact #2 Relationship : Son Primary Language : Georgian Communication Barrier : None Armand Cristobal Rn - 01/04/2019 22:04 EDT Fall Risk Scales ABCs Fall Injury Risk Identification : Bones, Coagulation ABC Fall Injury Risk : Moderate to high injury risk RAMIREZ Hx Falls Immediate/Within 3 Months : Yes Ramirez Secondary Diagnosis : Yes RAMIREZ Use of Ambulatory Aid : None RAMIREZ IV Therapy or IV Access : Yes Ramirez Gait/Transferring : Weak Ramirez Mental Status : Oriented to own ability Ramirez Fall Risk Score : 70 RAMIREZ Fall Scale Risk Level : 46 or > High Risk [place] Fall Interventions : Adequate lighting, Assistive devices within reach, Bed in low position, Call device within reach, Hourly comfort/safety rounds, Non-slip footwear, Personal items within reach, Reinforced to call for assistance before getting out of bed, Room free of clutter/spills, Upper side-rails up, Wires/Cords secured Armand Cristobal Rn - 01/04/2019 22:04 EDT Health Histories Smoking Status : Never (less than 100 in lifetime; none in last 30 days) Smokeless Tobacco Status : Never Armand Cristobal Rn - 01/04/2019 22:04 EDT Social History (As Of: 01/04/2019 22:11:04 EDT) Height and Weight, Clinical Dosing Height Source : Chart Height Entry Format : [place] Height, Feet : 4 ft(Converted to: 122 cm, 48 Inch) Height, Inches : 10 Inch(Converted to: 0 ft 10 Inch, 25.40 cm) Clinical Height : 147.32 cm Weight Source : Bed scale Weight Entry Format : [place] Clinical Dosing Weight : 101.36 kg Weight, Pounds : 223 lb Body Surface Area (BSA) : 1.91 m2 Body Mass Index : 46.7 kg/m2 (>HHI) [place] Body Weight : 41 kg Armand Cristobal Rn - 01/04/2019 22:04 EDT Infectious Disease History Infectious Disease History : C-Difficile, Chicken pox/Shingles, MRSA, VRE Fever/Chills Last 48 Hours : No Travel To Regions with Travel Advisories : No Travel Outside [place] Within Last 30 Days : No Contact With Traveler to Advisory Region : No Tuberculosis Symptoms : None Armand Cristobal Rn - 01/04/2019 22:04 EDT Influenza Vaccine Asmt, Adult Previous Vaccines from Immunization Schedule : No qualifying data available. Influenza Immunization, Current Season : No Inactivated Flu Vaccine Contraindications : No contraindications to inactivated influenza vaccine Transplant Workup/Recent Transplant : No Order for Influenza Vaccine : Declined Vaccination Armand Cristobal Rn - 01/04/2019 22:04 EDT Pneumococcal Vaccine Previous Vaccines from Immunization Schedule : No qualifying data available. Pneumonia Immunization Received : Yes Armand Cristobal Rn - 01/04/2019 22:04 EDT Nutrition History Adaptive Feeding Equipment : Regular Eating Poorly Due to Decreased Appetite : No Unplanned Weight Loss in Past 3-6 Months : No Malnutrition Screening Tool Total(mal) : 0 Malnutrition Screening Tool Risk Level : Patient not at risk Armand Cristobal Rn - 01/04/2019 22:04 EDT Psychosocial History Do You Have a History of the Following? : Patient denies history Currently in Unsafe Situation : No Tried to Harm Yourself in the Past? : No Thoughts of Harming/Killing Yourself : No Armand Cristobal Rn - 01/04/2019 22:04 EDT Sleep Apnea Risk Assmt Hx of Obstructive Sleep Apnea Diagnosis : No Snore Loudly : No Tired, Fatigued, or Sleepy During Day : No Observed Stopping Breathing During Sleep : No Have/Are Being Treated for Hypertension : No BMI Greater Than 35 kg/m2 : No Age over 50 Years Old : Yes Neck Circumference Greater Than 40 cm : No Gender Male : No STOP-BANG Sleep Apnea Risk Level Score : 1 Armand Cristobal Rn - 01/04/2019 22:04 EDT Valuables and Belongings Valuables and Belongings : Personal items Personal Items : Cell phone, Purse Personal Items Disposition : Bedside Armand Cristobal Rn - 01/04/2019 22:04 EDT documented in this encounter Plan of Treatment Not on file documented as of this encounter Visit Diagnoses Not on filedocumented in this encounter
--- OUTSIDE RECORDS SUMMARY | 2025-08-05 07:28 | XMS_ITS | Encounter Summary ---
Author Organization [employer] ([place], [place], [place], [place]) Address [address] [place] [address] Care Team Providers Care Manager Strategic Name Role Phone Unavailable Primary Care Provider Unavailabl e Encounter Details Date Type Department Care Team (Late st Contact Info) Description 01/06/2019 Transcribed Document [facility] [place] [address] [place] [address] ProviderKentrell MD [address] [place] [address] Social History Tobacco Use Types Packs/Day Years Used Date Smoking Tobacco: Never Assessed Comments Unknown Sex and Gender Information Value Date Recorded Sex Assigned at Not on file Legal Sex Female 5:31 PM CDT Gender Identity Not on file Sexual Orientation Not on file documented as of this encounter Miscellaneous Notes * Cerner Conversion Note - Kentrell ProviderMD - 01/06/2019 2:00 AM CDT Gaming Surveillance Observer Details Entered On: 01/06/2019 5:19 EDT Performed On: 01/06/2019 2:00 EDT by Armand Cristobal Rn Order Details Transport Mode Order Detail : Ambulatory Isolation Precautions Order Detail : Contact precautions, Droplet precautions Order Detail : 0 IV Order Detail : 1 Oxygen Order Detail : 1 Nurse Collect Order Detail : 0 Lift/Transfer : Moderate assist Central Line Order Detail : No Room Service : Needs Assistance Arterial Line : No Armand Cristobal, Wesley - 01/06/2019 5:19 EDT documented in this encounter Plan of Treatment Not on file documented as of this encounter Visit Diagnoses Not on filedocumented in this encounter
--- OUTSIDE RECORDS SUMMARY | 2025-08-05 07:28 | XMS_ITS | Encounter Summary ---
Author Organization [employer] ([place], [place], [place], [place]) Address [address] [place] [address] Care Team Providers Care House Painter Name Role Phone Unavailable Primary Care Provider Unavailabl e Encounter Details Date Type Department Care Team (Late st Contact Info) Description 01/04/2019 Transcribed Document [facility] [place] Family Medicine [address] [place] [address] ProviderKentrell MD [address] [place] [address] Social History Tobacco Use Types Packs/Day Years Used Date Smoking Tobacco: Never Assessed Comments Unknown Sex and Gender Information Value Date Recorded Sex Assigned at Not on file Legal Sex Female 5:31 PM CDT Gender Identity Not on file Sexual Orientation Not on file documented as of this encounter Miscellaneous Notes * Cerner Conversion Note - Kentrell Lorenzo MD - 01/04/2019 10:11 PM CDT Nutrition Assessment Entered On: 01/06/2019 11:42 EDT Performed On: 01/06/2019 11:42 EDT by SMITHA BALDERRAMA RD, LD Nutrition Assessment Nutrition Assessment Reason : Automatic referral SMITHA BALDERRAMA RD, SKYLER - 01/06/2019 11:40 EDT Nutrition Recommendations Dietitian Recommendations : 01/06: Automatic referral rec'd for BMI >40. BMI of 46.7 is within class III obesity range. Labs/Meds reviewed. No skin breakdown noted. GI WNLs. No other nutritional concerns at this time. RD available for education upon pt's request. Will rescreen in 7-10 days. Nutrition Care Level : No nutritional risk SMITHA BALDERRAMA RD, SKYLER - 01/06/2019 11:40 EDT documented in this encounter Plan of Treatment Not on file documented as of this encounter Visit Diagnoses Not on filedocumented in this encounter
--- OUTSIDE RECORDS SUMMARY | 2025-08-05 07:28 | XMS_ITS | Encounter Summary ---
Author Organization [employer] ([place], [place], [place], [place]) Address [address] [place] [address] Care Team Providers Care Tier Over Name Role Phone Unavailable Primary Care Provider Unavailabl e Encounter Details Date Type Department Care Team (Late st Contact Info) Description 01/06/2019 Transcribed Document [facility] [place] Family Medicine [address] [place] [address] ProviderKentrell MD [address] [place] [address] Social History Tobacco Use Types Packs/Day Years Used Date Smoking Tobacco: Never Assessed Comments Unknown Sex and Gender Information Value Date Recorded Sex Assigned at Not on file Legal Sex Female 5:31 PM CDT Gender Identity Not on file Sexual Orientation Not on file documented as of this encounter Miscellaneous Notes * Cerner Conversion Note - Kentrell Lorenzo MD - 01/06/2019 2:14 PM CDT Consult Phone Call Documentation Entered On: 01/06/2019 15:04 EDT Performed On: 01/06/2019 14:14 EDT by [facility] Coord Phone Call for Consults Consult Phone Call/Page Attempt : First call Consult Reason : Large pelvic hematoma. Physician Requesting Consult : MARTHA LAY MD Physician Requested for Consult : PABLO HUMPHRIES MD Provider Service Notified Name : Other: general surgery Additional Information : Called provider, notified of consult. Brandie [facility] Coord - 01/06/2019 14:59 EDT Electronically signed by Charlotte Sprague Conversion Motor Coach Tour Operator Cerner at 01/29/2023 9:28 AM CDT documented in this encounter Plan of Treatment Not on file documented as of this encounter Visit Diagnoses Not on filedocumented in this encounter
--- OUTSIDE RECORDS SUMMARY | 2025-08-05 07:28 | XMS_ITS | Encounter Summary ---
Author Organization [employer] ([place], [place], [place], [place]) Address [address] [place] [address] Care Team Providers Care Freight Caller Name Role Phone Unavailable Primary Care Provider Unavailabl e Encounter Details Date Type Department Care Team (Late st Contact Info) Description 01/04/2019 Transcribed Document [facility] [place] [address] [place] [address] ProviderKentrell MD [address] [place] [address] Social History Tobacco Use Types Packs/Day Years Used Date Smoking Tobacco: Never Assessed Comments Unknown Sex and Gender Information Value Date Recorded Sex Assigned at Not on file Legal Sex Female 5:31 PM CDT Gender Identity Not on file Sexual Orientation Not on file documented as of this encounter Miscellaneous Notes * Cerner Conversion Note - Kentrell ProviderMD - 01/04/2019 11:37 PM CDT Education-Diabetes Topics Entered On: 01/05/2019 4:30 EDT Performed On: 01/04/2019 23:37 EDT by Armand Cristobal Rn Teaching/Learning Assessment [...]
--- OUTSIDE RECORDS SUMMARY | 2025-08-05 07:28 | XMS_ITS | Encounter Summary ---
Author Organization [employer] ([place], [place], [place], [place]) Address [address] [place] [address] Care Team Providers Care Desk Top Publisher Name Role Phone Unavailable Primary Care Provider Unavailabl e Encounter Details Date Type Department Care Team (Late st Contact Info) Description 01/07/2019 Transcribed Document [facility] [place] Family Medicine [address] [place] [address] ProviderKentrell MD [address] [place] [address] Social History Tobacco Use Types Packs/Day Years Used Date Smoking Tobacco: Never Assessed Comments Unknown Sex and Gender Information Value Date Recorded Sex Assigned at Not on file Legal Sex Female 5:31 PM CDT Gender Identity Not on file Sexual Orientation Not on file documented as of this encounter Miscellaneous Notes * Cerner Conversion Note - Kentrell Lorenzo MD - 01/07/2019 11:01 AM CDT Patient: MARICEL IGLESIAS Age: 63 years Sex: Female : 1955 Associated Diagnoses: None Author: RIP ANDREA MD Subjective Chief complaint. better not in distress asking to go home Health Status Allergies: Allergic Reactions (Selected) Severity Not Documented Albuterol- No reactions were documented. Levaquin- No reactions were documented. NSAIDs- No reactions were documented. Nubain- No reactions were documented. SulfADIAZINE- No reactions were documented., Allergies (2) Active Reaction Levaquin None Documented Nubain None Documented Current medications: (Selected) Inpatient Medications Ordered Augmentin 875 mg-125 mg oral tablet: 875 mg, 1 Tab, Oral, BID Florastor: 250 mg, Oral, BID Lantus: 20 Units, SubCutaneous, BID Lasix: 20 mg, Oral, Daily Metoprolol Succinate ER: 25 mg, Oral, Daily MiraLax: 17 Gram, Oral, Daily, PRN: Constipation Nitrostat: 0.4 mg, SubLINgual, Q5Min, PRN: Chest Pain Os-Zachary 500 + D: 1 Tab, Oral, Daily PROzac: 20 mg, Oral, Daily Phenergan: 6.25 mg, IntraVENous, Q6H, PRN: Nausea ProAir HFA: 1 Puff, Inhalation, QID, PRN: Dyspnea Robitussin: 400 mg, Oral, TID Tessalon: 200 mg, Oral, TID, PRN: Cough Tussionex PennKinetic: 5 mL, Oral, Q12H Tylenol: 650 mg, Oral, Q4H, PRN: Fever Zofran: 4 mg, IV Push, Q4H, PRN: Nausea Zofran: 8 mg, Oral, Q8H, PRN: Nausea/Vomiting amLODIPine: 10 mg, Oral, Daily cholecalciferol: 2,000 Units, Oral, Daily doxycycline: 100 mg, Oral, BID formoterol-mometasone 5 mcg-200 mcg/inh inhalation aerosol: 2 Puff, Inhalation, RT_BID gabapentin: 900 mg, Oral, TID glycopyrrolate: 15.6 mcg, Inhalation, RT_BID insulin lispro sliding scale: Scale D:, SubCutaneous, AC and at Bedtime levothyroxine: 50 mcg, Oral, Daily methaDONE: 10 mg, Oral, QID morphine: 2 mg, IV Push, Q2H, PRN: Pain (Severe 7-10) oxyCODONE: 5 mg, Oral, Q4H, PRN: Pain pantoprazole: 40 mg, Oral, Daily predniSONE: 40 mg, Oral, Daily Prescriptions Prescribed Advair Diskus 250 mcg-50 mcg inhalation powder: 1 Puff, Inhalation, BID, 28 Each, 0 Refill(s) ProAir HFA 90 mcg/inh inhalation aerosol: 1 Puff, Inhalation, QID, PRN: Shortness of Breath, 1 Each, 0 Refill(s) Spiriva 18 mcg inhalation capsule: 1 Cap, Inhalation, Daily, 30 Each, 0 Refill(s) Documented Medications Documented Coumadin 5 mg oral tablet: Tab, Oral, Daily, 0 Refill(s) Diflucan 150 mg oral tablet: 1 Tab, Oral, Daily, 0 Refill(s) Lasix 20 mg oral tablet: 1 Tab, Oral, Daily, 0 Refill(s) Lovenox 100 mg/mL injectable solution: 1 mL, SubCutaneous, BID, 10 Each, 0 Refill(s) Metoprolol Succinate ER 25 mg oral tablet, extended release: 1 Tab, Oral, Daily, 0 Refill(s) Nitrostat 0.4 mg sublingual tablet: 1 Tab, SubLINgual, Q5Min, PRN: Chest Pain, 100 Tab, 0 Refill(s) PROzac 20 mg oral capsule: 1 Cap, Oral, Daily, 30 Cap, 0 Refill(s) Vitamin D3 2000 intl units oral capsule: 1 Cap, Oral, Daily, 0 Refill(s) Zofran 8 mg oral tablet: 1 Tab, Oral, Q8H, PRN: Nausea/Vomiting, 0 Refill(s) amLODIPine 10 mg oral tablet: 1 Tab, Oral, Daily, 30 Tab, 0 Refill(s) azithromycin 500 mg intravenous injection: IntraVENous, [id number], 0 Refill(s) aztreonam 1 g injection: IntraVENous, Q12H, 0 Refill(s) calcium-vitamin D 500 mg-200 intl units oral tablet: 1 Tab, Oral, Daily, 0 Refill(s) cyanocobalamin 100 mcg/mL injectable solution: 1 mL, IntraMuscular, qMonth, 30 mL, 0 Refill(s) gabapentin 300 mg oral capsule: 3 Cap, Oral, TID, 0 Refill(s) gabapentin 800 mg oral tablet: 1 Tab, Oral, TID, 270 Tab, 0 Refill(s) levothyroxine 50 mcg (0.05 mg) oral tablet: 1 Tab, Oral, Daily, 0 Refill(s) methadone 10 mg oral tablet: 2 Tab, Oral, QID, 0 Refill(s) pantoprazole 40 mg oral delayed release tablet: 1 Tab, Oral, Daily, 30 Tab, 0 Refill(s) predniSONE 5 mg oral tablet: 1 Tab, Oral, Daily, 0 Refill(s) rOPINIRole 0.5 mg oral tablet: 1 Tab, Oral, At Bedtime, 0 Refill(s), Home Medications (24) Active Advair Diskus 250 mcg-50 mcg inhalation powder 1 Puff, Inhalation, BID amLODIPine 10 mg oral tablet 10 mg = 1 Tab, Oral, Daily azithromycin 500 mg intravenous injection , IntraVENous, [id number] aztreonam 1 g injection , IntraVENous, Q12H calcium-vitamin D 500 mg-200 intl units oral tablet 1 Tab, Oral, Daily Coumadin 5 mg oral tablet , Oral, Daily cyanocobalamin 100 mcg/mL injectable solution 100 mcg = 1 mL, IntraMuscular, qMonth Diflucan 150 mg oral tablet 150 mg = 1 Tab, Oral, Daily gabapentin 300 mg oral capsule 900 mg = 3 Cap, Oral, TID gabapentin 800 mg oral tablet 800 mg = 1 Tab, Oral, TID Lasix 20 mg oral tablet 20 mg = 1 Tab, Oral, Daily levothyroxine 50 mcg (0.05 mg) oral tablet 50 mcg = 1 Tab, Oral, Daily Lovenox 100 mg/mL injectable solution 100 mg = 1 mL, SubCutaneous, BID methadone 10 mg oral tablet 20 mg = 2 Tab, Oral, QID Metoprolol Succinate ER 25 mg oral tablet, extended release 25 mg = 1 Tab, Oral, Daily Nitrostat 0.4 mg sublingual tablet 0.4 mg = 1 Tab, PRN, SubLINgual, Q5Min pantoprazole 40 mg oral delayed release tablet 40 mg = 1 Tab, Oral, Daily predniSONE 5 mg oral tablet 5 mg = 1 Tab, Oral, Daily ProAir HFA 90 mcg/inh inhalation aerosol 1 Puff, PRN, Inhalation, QID PROzac 20 mg oral capsule 20 mg = 1 Cap, Oral, Daily rOPINIRole 0.5 mg oral tablet 0.5 mg = 1 Tab, Oral, At Bedtime Spiriva 18 mcg inhalation capsule 1 Cap, Inhalation, Daily Vitamin D3 2000 intl units oral capsule 2,000 Int Units = 1 Cap, Oral, Daily Zofran 8 mg oral tablet 8 mg = 1 Tab, PRN, Oral, Q8H , Medications (30) Active Scheduled: (20) amLODIPine 10 mg tab 10 mg 1 Tab, Oral, Daily amoxicillin/clav 875/125 mg tab 875 mg 1 Tab, Oral, BID calcium 500 mg/vit D 200 int unit tab 1 Tab, Oral, Daily chlorpheniramine/HYDROcod ER susp 5 mL 5 mL, Oral, Q12H cholecalciferol 1,000 unit tab 2,000 Units 2 Tab, Oral, Daily doxycycline hyclate 100 mg cap 100 mg 1 Cap, Oral, BID FLUoxetine 20 mg cap 20 mg 1 Cap, Oral, Daily furosemide 20 mg tab 20 mg 1 Tab, Oral, Daily gabapentin 300 mg cap 900 mg 3 Cap, Oral, TID glycopyrrolate 15.6 mcg inh cap #6 15.6 mcg 1 Each, Inhalation, RT_BID guaiFENesin 200 mg tab 400 mg 2 Tab, Oral, TID insulin glargine 1 unit/0.01 mL inj 20 Units 0.2 mL, SubCutaneous, BID insulin lispro 1 unit/0.01 mL inj Scale D:, SubCutaneous, AC and at Bedtime levothyroxine 50 mcg tab 50 mcg 1 Tab, Oral, Daily methaDONE 10 mg tab 10 mg 1 Tab, Oral, QID metoprolol succinate XL 25 mg tab 25 mg 1 Tab, Oral, Daily mometasone/formoterol 200/5 mcg inh 2 Puff, Inhalation, RT_BID pantoprazole EC 40 mg tab 40 mg 1 Tab, Oral, Daily predniSONE 20 mg tab 40 mg 2 Tab, Oral, Daily saccharomyces boulardii 250 mg cap 250 mg 1 Cap, Oral, BID Continuous: (0) PRN: (10) acetaminophen 325 mg tab 650 mg 2 Tab, Oral, Q4H albuterol 90 mcg/1 puff inh 6.7 g 1 Puff, Inhalation, QID benzonatate 100 mg cap 200 mg 2 Cap, Oral, TID morphine 2 mg/1 ml inj 2 mg 1 mL, IV Push, Q2H nitroglycerin 0.4 mg tab # 25 btl 0.4 mg 1 Tab, SubLINgual, Q5Min ondansetron 4 mg tab 8 mg 2 Tab, Oral, Q8H ondansetron 4 mg/2 mL inj 4 mg 2 mL, IV Push, Q4H oxyCODONE 5 mg tab 5 mg 1 Tab, Oral, Q4H polyethylene glycol 3350 pwd 17 g pkt 17 Gram 1 Packet, Oral, Daily promethazine 25 mg/1 mL inj 6.25 mg 0.25 mL, IntraVENous, Q6H Problem list: No qualifying data available Objective VS/Measurements Vitals Signs (last 24 hrs) Last Charted Minimum Maximum Temp 98.2 (JAN 07 10:00) 98.2 (JAN 07 10:00) 98.8 (JAN 06 14:14) Apical HR L 54 (JAN 07 08:25) L 54 (JAN 07 08:25) L 54 (JAN 07 08:25) Mon HR 73 (JAN 07 10:00) 54 (JAN 07 06:00) 80 (JAN 06 14:14) Resp Rate 17 (JAN 07 10:00) 16 (JAN 06 17:09) 19 (JAN 07 02:47) SBP 132 (JAN 07 10:00) 117 (JAN 07 02:47) 138 (JAN 06 21:00) DBP 82 (JAN 07 10:00) 66 (JAN 06 21:00) 82 (JAN 07 10:00) MAP 112 (JAN 07 10:00) 82 (JAN 07 02:47) 112 (JAN 07 10:00) SpO2 95 (JAN 07 10:00) 95 (JAN 06 13:57) 96 (JAN 06 17:06) General: Alert and oriented, Moderate distress. Eye: Pupils are equal, round and reactive to light, Normal conjunctiva. HENT: Normocephalic, Normal hearing. Neck: Supple, Non-tender. Respiratory: Breath sounds are equal, wheezy chest. Cardiovascular: Normal rate, Regular rhythm. Gastrointestinal: Soft, Non-tender, Non-distended. Genitourinary: No costovertebral angle tenderness. Musculoskeletal: Normal range of motion, Normal strength. Integumentary: Warm, Dry. Neurologic: Alert, Oriented, No focal deficits, Cranial Nerves II-XII are grossly intact. Psychiatric: Cooperative, Appropriate mood & affect, Normal judgment. Results Review JAN 07 06:12 138 L 98 20 / H 135 3.6 H 36 0.70 \ JAN 07 06:12 \ L 8.6 / H 26.5 H 474 / L 28.0 \ JAN 07 06:12 138 L 98 20 / H 135 3.6 H 36 0.70 \ MAR 26 06:12 \ L 8.6 / H 26.5 H 474 / L 28.0 \ Impression and Plan Acute hypoxemic respiratory failure, 2/2 asthma exacerbation - CT abd with ground-glass opacities at bilateral lung bases R Rectus sheath hematoma. - 7.5 x 4.3 cm hematoma, extending 13cm on CT - Hgb 8.2, unknown baseline Abdominal pain, 2/2 above Hypercoagulable state, patient unclear of etiology, worked up at in - on chronic coumadin therapy, being bridged with lovenox at [facility] due to subtherapeutic INR - multiple unprovoked DVT/PE, s/p IVC filter ITP s/p splenectomy in 1986 HFpEF, stable, not in acute exacerbation Type 2 diabetes mellitus, unclear control Leukocytosis, WBC 23.4, w/ neutrophilia. - patient also on steroid at OSH, PCT pending Hypothyroidism, on synthroid Depression Hyperlipidemia, on statin Obesity, BMI 46.7 Hx of endometrial cancer Plan coumadin on hold labs in am Pulmonary following continue Augmentin stable hemoglobin home today time spent 40 min documented in this encounter Plan of Treatment Not on file documented as of this encounter Visit Diagnoses Not on filedocumented in this encounter
--- OUTSIDE RECORDS SUMMARY | 2025-08-05 07:28 | XMS_ITS | Encounter Summary ---
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 Role Phone Unavailable Primary Care Provider Unavailabl e Encounter Details Date Type Department Care Team (Late st Contact Info) Description 01/07/2019 Transcribed Document [facility] Family Medicine [facility] [place] [address] ProviderKentrell MD [address] [place] [id number] Social History Tobacco Use Types Packs/Day Years Used Date Smoking Tobacco: Never Assessed Comments Unknown Sex and Gender Information Value Date Recorded Sex Assigned at Not on file Legal Sex Female 5:31 PM CDT Gender Identity Not on file Sexual Orientation Not on file documented as of this encounter Miscellaneous Notes * Cerner Conversion Note - Kentrell Lorenzo MD - 01/07/2019 2:02 PM CDT [address] , [place] [address] Patient Copy Patient Information: Name: MARICEL IGLESIAS Current Date: 01/07/2019 14:02:45 : 1955 Patient Address: [place] [address] Patient Attending Physician: CARLOS LANDIN DO Primary Care Provider: OSITO LARSEN (REF)[facility] Primary Care Provider Discharge Diagnosis: Weakness Weight on Admission: 223 lb, 0 oz Weight at Discharge: 218 lb Comment: Follow-up Instructions: With: Address: When: OSITO LARSEN [address] [place] [address], [address] [place] [address] Business (1) 3:30 PM With: Address: When: Follow up with specialist Within 1 to 2 weeks Comments: GI With: Address: When: Follow up with specialist Within 1 week Comments: Hematology Discharge Instructions: Diet after Discharge: Heart healthy diet, Diabetic diet Activity after Discharge: As tolerated Driving after Discharge: Do not drive Showering/Bathing:May shower Notify Provider of: fever greater than 101.5, increased shortness of air at rest, blood sugars than remain above 200 consistently in a 24 hour period. Immunizations Documented During Stay: No Immunizations Found Worker's Compensation Paperwork Completed: No Special Instructions: Please STOP taking Warfarin until further instructions from primary care doctor at the follow up appointment in 2-3 days Heart Failure Discharge Instructions (if any): Stroke Related Discharge Instructions (if any): Warfarin Related Discharge Instructions (if any): Physician to Manage Warfarin: You will follow-up with your PCP as to when to resume your Warfarin INR Result: INR: 2.8 (High), Reference Range: (0.9 - 1.1), 01/04/2019 10:35 PM DIAGNOSIS THERAPEUTIC RANGE a) Primary and secondary prevention of 2.0-3.0 venous thrombosis b) Active venous thrombosis, pulmonary 2.0-4.0 embolism and prevention of recurrent venous thrombosis c) Prevention of arterial thromboembolism 3.0-4.5 including patients with mechanical heart valves Notify Provider of Signs/Symptoms of: Significant bleeding, Clot Final Medication List: Printed Prescriptions albuterol (ProAir HFA 90 mcg/inh inhalation aerosol) 1 Puff(s) Inhalation Four Times A Day as needed Shortness of Breath. Refills: 0. amoxicillin-clavulanate (Augmentin 875 mg-125 mg oral tablet) 1 Tablet(s) Oral Two Times A Day for 10 Day(s). Refills: 0. formoterol-mometasone (Dulera 200 mcg-5 mcg/inh inhalation aerosol) 2 Puff(s) Inhalation Two Times A Day. Refills: 0. insulin glargine (Lantus Solostar Pen 100 units/mL subcutaneous solution) 20 Unit(s) SubCutaneous Two Times A Day. Refills: 0. predniSONE (predniSONE 20 mg oral tablet) 2 Tablet(s) Oral Every Day for 2 Day(s). Refills: 0. saccharomyces boulardii lyo (Florastor 250 mg oral capsule) 1 Capsule(s) Oral Two Times A Day for 14 Day(s). Refills: 0. Other Medications amLODIPine (amLODIPine 10 mg oral tablet) 1 Tablet(s) Oral Every Day. calcium-vitamin D (calcium-vitamin D 500 mg-200 intl units oral tablet) 1 Tablet(s) Oral Every Day. cholecalciferol (Vitamin D3 2000 intl units oral capsule) 1 Capsule(s) Oral Every Day. cyanocobalamin (cyanocobalamin 100 mcg/mL injectable solution) 1 Milliliter(s) IntraMuscular once a month. FLUoxetine (PROzac 20 mg oral capsule) 1 Capsule(s) Oral Every Day. furosemide (Lasix 20 mg oral tablet) 1 Tablet(s) Oral Every Day. gabapentin (gabapentin 800 mg oral tablet) 1 Tablet(s) Oral Four Times A Day. levothyroxine (levothyroxine 50 mcg (0.05 mg) oral tablet) 1 Tablet(s) Oral Every Day. methaDONE (methadone 10 mg oral tablet) 1 Tablet(s) Oral Four Times A Day. metoprolol (Metoprolol Succinate ER 25 mg oral tablet, extended release) 1 Tablet(s) Oral Every Day. nitroglycerin (Nitrostat 0.4 mg sublingual tablet) 1 Tablet(s) SubLINgual every 5 minutes as needed Chest Pain. ondansetron (Zofran 8 mg oral tablet) 1 Tablet(s) Oral Every 8 Hours as needed Nausea/Vomiting. pantoprazole (pantoprazole 40 mg oral delayed release tablet) 1 Tablet(s) Oral Every Day. rOPINIRole (Requip 4 mg oral tablet) 0.5 Tablet(s) Oral At Bedtime. Patient Allergies: NSAIDs; Levaquin; Nubain; sulfADIAZINE; albuterol Medication Instructions: Take your medications faithfully. Do NOT skip medication. Do NOT stop taking medications without the direction of a physician. Carry a list of your medications with you at all times, and take this medication list with you to your first follow up visit. Report any side effects. Avoid herbal remedies unless discussed with your physician. As part of your treatment plan, your physician may have prescribed a limited course of a controlled substance. This medication may be given to help people with moderate or severe pain or for other medical conditions, but there are risks involved with treatment. Common side effects may include nausea, constipation, drowsiness, sweating, itching, dry mouth, and rash. More serious side effects may include cognitive and motor impairment, like problems with thinking, concentrating, alertness, and movement (e.g. slowed reflexes), and driving and operating heavy machinery can be dangerous. It is important for you to talk to your physician if you have these side effects or questions. These controlled substances can produce physical dependence and be habit-forming if taken for an extended period of time, which means that the body has gotten used to them and may experience withdrawal symptoms if they are abruptly stopped. Withdrawal symptoms can include runny nose, sweating, goose bumps, diarrhea, abdominal cramping, rapid heartbeat, difficulty sleeping, and nervousness. Patient education materials: How to Take Your Blood Pressure HOW DO I GET A BLOOD PRESSURE MACHINE? You can buy an electronic home blood pressure machine at your local pharmacy. Insurance will sometimes cover the cost if you have a prescription. ??? Ask your doctor what type of machine is best for you. There are different machines for your arm and your wrist. ??? If you decide to buy a machine to check your blood pressure on your arm, first check the size of your arm so you can buy the right size cuff. To check the size of your arm: ? ? Use a measuring tape that shows both inches and centimeters. ? ? Wrap the measuring tape around the upper-middle part of your arm. You may need someone to help you measure. ? ? Write down your arm measurement in both inches and centimeters. ? To measure your blood pressure correctly, it is important to have the right size cuff. ? ? If your arm is up to 13 inches (up to 34 centimeters), get an adult cuff size. ? If your arm is 13 to 17 inches (35 to 44 centimeters), get a large adult cuff size. ? ? If your arm is 17 to 20 inches (45 to 52 centimeters), get an adult thigh cuff. ? WHAT DO THE NUMBERS MEAN? There are two numbers that make up your blood pressure. For example: 120/80. ? The first number (120 in our example) is called the systolic pressure. It is a measure of the pressure in your blood vessels when your heart is pumping blood. ? The second number (80 in our example) is called the diastolic pressure. It is a measure of the pressure in your blood vessels when your heart is resting between beats. ??? Your doctor will tell you what your blood pressure should be. WHAT SHOULD I DO BEFORE I CHECK MY BLOOD PRESSURE? Try to rest or relax for at least 30 minutes before you check your blood pressure. ??? Do notsmoke. ??? Do nothave any drinks with caffeine, such as: ? Soda. ? Coffee. ? Tea. ??? Check your blood pressure in a quiet room. ??? Sit down and stretch out your arm on a table. Keep your arm at about the level of your heart. Let your arm relax. ??? Make sure that your legs are not crossed. HOW DO I CHECK MY BLOOD PRESSURE? Follow the directions that came with your machine. ??? Make sure you remove any tight-fitting clothing from your arm or wrist. Wrap the cuff around your upper arm or wrist. You should be able to fit a finger between the cuff and your arm. If you cannot fit a finger between the cuff and your arm, it is too tight and should be removed and rewrapped. ??? Some units require you to manually pump up the arm cuff. ??? Automatic units inflate the cuff when you press a button. ??? Cuff deflation is automatic in both models. ??? After the cuff is inflated, the unit measures your blood pressure and pulse. The readings are shown on a monitor. Hold still and breathe normally while the cuff is inflated. ??? Getting a reading takes less than a minute. ??? Some models store readings in a memory. Some provide a printout of readings. If your machine does not store your readings, keep a written record. ??? Take readings with you to your next visit with your doctor. This information is not intended to replace advice given to you by your health care provider. Make sure you discuss any questions you have with your health care provider. Document Released: 09/13/2009 Document Revised: 10/22/2015 Document Reviewed: 11/26/2014 [employer] Interactive Patient Education ? 2017 [employer] How to Take a Pulse Your pulse is the increase in pressure inside the blood vessels that carry blood from your heart to the rest of your body (arteries). Every time your heart beats, you can feel your pulse in an artery near the surface of your skin. You can easily feel your pulse in the artery in your wrist (radial artery) and in the artery in your neck (carotid artery). Taking your pulse can tell you how fast your heart is beating and whether it has a normal rhythm. You can also tell whether your heart is beating strongly or weakly. What you need to know about pulse rates Your pulse is the same as your heart rate. Both are measured in beats per minute (bpm). A normal resting heart rate varies depending on a person's age. ??? Infants under 1 year of age: Normal heart rate of 100?160 bpm. ??? Children 1?2 years of age: Normal heart rate of 90?150 bpm. ??? Children 2?5 years of age: Normal heart rate of 80?140 bpm. ??? Children 6?12 years of age: Normal heart rate of 70?120 bpm. ??? Everyone over 12 years of age: Normal heart rate of 60?100 bpm. There can be a lot of variation in your pulse. It can be different depending on the time of day or the amount of exercise that you get. It changes with your fitness level. Many things can change the speed and regularity of your pulse. These include: ??? Exercise. ??? Fever. ??? Stress. ??? Heart problems. ??? Poor circulation. ??? Medicines. How to take your pulse To take your pulse, all you need is a digital stopwatch or a clock or watch that has a second hand. The best time to measure your resting pulse is in the morning before you start moving around. Take it as soon as you wake up or after resting for about 10 minutes. There are no firm rules about how often to check your pulse. In general, it is a good idea to check your pulse at least once a month. Measuring your pulse is a good way to check your heart health. Checking your pulse before and after exercise can tell you if you are getting the right amount of exercise. This is called finding your target heart rate. Your target heart rate depends on your age, fitness, and health. Ask your health care provider what would be a safe target heart rate for you during exercise. Radial PulseTo check the pulse in your radial artery: 1. Turn one hand palm-up and relax your arm. 2. Place the first two fingers of your other hand gently over your wrist, just below the base of your thumb. 3. Place your fingertips just inside the bone that runs along the outside of your arm. 4. Slowly increase pressure until you feel a pulsing beneath your fingers. You may need to move your fingers slightly. 5. Do notpress too hard. Too much pressure may cut off blood supply. 6. Count how many pulse beats you feel in 1 minute. Or, count how many pulse beats you feel in 30 seconds and double that number. 7. Pay attention to the rhythm of the pulse. It should be steady and even. Carotid PulseTo check the pulse in your carotid artery: 1. Place two fingers just to one side of your Vishal?s apple so that you feel a pulsing beneath your fingers. 2. Do notpress too hard. Too much pressure may cut off blood supply and can make you dizzy. 3. Count how many pulse beats you feel in 1 minute. Or, count how many pulse beats you feel in 30 seconds and double that number. 4. Pay attention to the rhythm of the pulse. It should be steady and even. Contact a health care provider if: ??? Your pulse is too slow or too fast. ??? Your pulse is weak or hard to find. ??? You have skipped beats or extra beats. ??? Your pulse has an irregular rhythm. ??? You have an abnormal pulse along with dizziness, fatigue, or shortness of breath. This information is not intended to replace advice given to you by your health care provider. Make sure you discuss any questions you have with your health care provider. Document Released: 04/06/2004 Document Revised: 04/20/2017 Document Reviewed: 03/06/2017 [employer] Interactive Patient Education ? 2017 [employer] Smoking Hazards Smoking cigarettes is extremely bad for your health. Tobacco smoke has over 200 known poisons in it. It contains the poisonous gases nitrogen oxide and carbon monoxide. There are over 60 chemicals in tobacco smoke that cause cancer. Some of the chemicals found in cigarette smoke include: ??? Cyanide. ? Benzene. ? Formaldehyde. ? Methanol (wood alcohol). ? Acetylene (fuel used in welding torches). ? Ammonia. ? Even smoking lightly shortens your life expectancy by several years. You can greatly reduce the risk of medical problems for you and your family by stopping now. Smoking is the most preventable cause of and disease in our society. Within days of quitting smoking, your circulation improves, you decrease the risk of having a heart attack, and your lung capacity improves. There may be some increased phlegm in the first few days after quitting, and it may take months for your lungs to clear up completely. Quitting for 10 years reduces your risk of developing lung cancer to almost that of a nonsmoker. WHAT ARE THE RISKS OF SMOKING? Cigarette smokers have an increased risk of many serious medical problems, including: ??? Lung cancer. ? Lung disease (such as pneumonia, bronchitis, and emphysema). ? Heart attack and chest pain due to the heart not getting enough oxygen (angina). ? Heart disease and peripheral blood vessel disease. ? Hypertension. ? Stroke. ? Oral cancer (cancer of the lip, mouth, or voice box). ? Bladder cancer. ? Pancreatic cancer. ? Cervical cancer. ? complications, including premature . ? Stillbirths and smaller babies, defects, and genetic damage to sperm. ? Early menopause. ? Lower estrogen level for women. ? Infertility. ? Facial wrinkles. ? Blindness. ? Increased risk of broken bones (fractures). ? Senile dementia. ? Stomach ulcers and internal bleeding. ? Delayed wound healing and increased risk of complications during surgery. Because of secondhand smoke exposure, children of smokers have an increased risk of the following: ??? Sudden syndrome (SIDS). ? Respiratory infections. ? Lung cancer. ? Heart disease. ? Ear infections. ? WHY IS SMOKING ADDICTIVE? Nicotine is the chemical agent in tobacco that is capable of causing addiction or dependence. When you smoke and inhale, nicotine is absorbed rapidly into the bloodstream through your lungs. Both inhaled and noninhaled nicotine may be addictive. WHAT ARE THE BENEFITS OF QUITTING? There are many health benefits to quitting smoking. Some are: ??? The likelihood of developing cancer and heart disease decreases. Health improvements are seen almost immediately. ? Blood pressure, pulse rate, and breathing patterns start returning to normal soon after quitting. ? People who quit may see an improvement in their overall quality of life. ? HOW DO YOU QUIT SMOKING? Smoking is an addiction with both physical and psychological effects, and longtime habits can be hard to change. Your health care provider can recommend: ??? Programs and community resources, which may include group support, education, or therapy. ??? Replacement products, such as patches, gum, and nasal sprays. Use these products only as directed. Do not replace cigarette smoking with electronic cigarettes (commonly called e-cigarettes). The safety of e-cigarettes is unknown, and some may contain harmful chemicals. FOR MORE INFORMATION ??? [place] [employer]: www.lung.org ??? [place] [employer]: www.cancer.org This information is not intended to replace advice given to you by your health care provider. Make sure you discuss any questions you have with your health care provider. Document Released: 11/08/2005 Document Revised: 01/22/2017 Document Reviewed: 03/23/2014 [employer] Interactive Patient Education ? 2017 [employer] Diabetes Mellitus and Standards of Medical Care Managing diabetes (diabetes mellitus) can be complicated. Your diabetes treatment may be managed by a team of health care providers, including: ??? A diet and nutrition services worker (registered dietitian). ??? A nurse. ??? A certified drug counselor (CDE). ??? A energy efficiency specialist (configuration management advisor). ??? An eye doctor. ??? A primary care provider. ??? A dentist. Your health care providers follow a schedule in order to help you get the best quality of care. The following schedule is a general guideline for your diabetes management plan. Your health care providers may also give you more specific instructions. HbA1c ( hemoglobin A1c) testThis test provides information about blood sugar (glucose) control over the previous 2?3 months. It is used to check whether your diabetes management plan needs to be adjusted. ??? If you are meeting your treatment goals, this test is done at least 2 times a year. ??? If you are not meeting treatment goals or if your treatment goals have changed, this test is done 4 times a year. Blood pressure test ??? This test is done at every routine medical visit. For most people, the goal is less than 140/90. In some cases, your goal blood pressure may be 130/80 or less. Ask your health care provider what your goal blood pressure should be. Dental and eye exams ??? Visit your dentist two times a year. ??? If you have type 1 diabetes, get an eye exam 3?5 years after you are diagnosed, and then once a year after your first exam. ? If you were diagnosed with type 1 diabetes as a child, get an eye exam when you are age 10 or older and have had diabetes for 3?5 years. After the first exam, you should get an eye exam once a year. ??? If you have type 2 diabetes, have an eye exam as soon as you are diagnosed, and then once a year after your first exam. Foot care exam ??? Visual foot exams are done at every routine medical visit. The exams check for cuts, bruises, redness, blisters, sores, or other problems with the feet. ??? A complete foot exam is done by your health care provider once a year. This exam includes an inspection of the structure and skin of your feet, and a check of the pulses and sensation in your feet. ? Type 1 diabetes: Get your first exam 3?5 years after diagnosis. ? Type 2 diabetes: Get your first exam as soon as you are diagnosed. ??? Check your feet every day for cuts, bruises, redness, blisters, or sores. If you have any of these or other problems that are not healing, contact your health care provider. Kidney function test ( urine microalbumin)??? This test is done once a year. ? Type 1 diabetes: Get your first test 5 years after diagnosis. ? Type 2 diabetes: Get your first test as soon as you are diagnosed. ??? If you have chronic kidney disease (CKD), get a serum creatinine and estimated glomerular filtration rate (eGFR) test once a year. Lipid profile (cholesterol, HDL, LDL, triglycerides) ??? This test should be done when you are diagnosed with diabetes, and every 5 years after the first test. If you are on medicines to lower your cholesterol, you may need to get this test done every year. ? The goal for LDL is less than 100 mg/dL (5.5 mmol/L). If you are at high risk, the goal is less than 70 mg/dL (3.9 mmol/L). ? The goal for HDL is 40 mg/dL (2.2 mmol/L) for men and 50 mg/dL(2.8 mmol/L) for women. An HDL cholesterol of 60 mg/dL (3.3 mmol/L) or higher gives some protection against heart disease. ? The goal for triglycerides is less than 150 mg/dL (8.3 mmol/L). Immunizations ??? The yearly flu (influenza) vaccine is recommended for everyone 6 months or older who has diabetes. ??? The pneumonia (pneumococcal) vaccine is recommended for everyone 2 years or older who has diabetes. If you are 65 or older, you may get the pneumonia vaccine as a series of two separate shots. ??? The hepatitis B vaccine is recommended for adults shortly after they have been diagnosed with diabetes. ??? The Tdap (tetanus, diphtheria, and pertussis) vaccine should be given: ? According to normal childhood vaccination schedules, for children. ? Every 10 years, for adults who have diabetes. ??? The shingles vaccine is recommended for people who have had chicken pox and are 50 years or older. Mental and emotional health ??? Screening for symptoms of eating disorders, anxiety, and depression is recommended at the time of diagnosis and afterward as needed. If your screening shows that you have symptoms (you have a positive screening result), you may need further evaluation and be referred to a mental health care provider. Diabetes self-management education ??? Education about how to manage your diabetes is recommended at diagnosis and ongoing as needed. Treatment plan ??? Your treatment plan will be reviewed at every medical visit. Summary ??? Managing diabetes (diabetes mellitus) can be complicated. Your diabetes treatment may be managed by a team of health care providers. ??? Your health care providers follow a schedule in order to help you get the best quality of care. ??? Standards of care including having regular physical exams, blood tests, blood pressure monitoring, immunizations, screening tests, and education about how to manage your diabetes. ??? Your health care providers may also give you more specific instructions based on your individual health. This information is not intended to replace advice given to you by your health care provider. Make sure you discuss any questions you have with your health care provider. Document Released: 07/29/2010 Document Revised: 06/29/2017 Document Reviewed: 06/29/2017 [employer] Interactive Patient Education ? 2017 [employer]. Diabetes Mellitus and Sick Day Management Blood sugar (glucose) can be difficult to control when you are sick. Common illnesses that can cause problems for people with diabetes (diabetes mellitus) include colds, fever, flu (influenza), nausea, vomiting, and diarrhea. These illnesses can cause stress and loss of body fluids (dehydration), and those issues can cause blood glucose levels to increase. Because of this, it is very important to take your insulin and diabetes medicines and eat some form of carbohydrate when you are sick. You should make a plan for days when you are sick (sick day plan) as part of your diabetes management plan. You and your health care provider should make this plan in advance. The following guidelines are intended to help you manage an illness that lasts for about 24 hours or less. Your health care provider may also give you more specific instructions. What do I need to do to manage my blood glucose? Check your blood glucose every 2?4 hours, or as often as told by your health care provider. ??? Know your sick day treatment goals. Your target blood glucose levels may be different when you are sick. ??? If you use insulin, take your usual dose. ? If your blood glucose continues to be too high, you may need to take an additional insulin dose as told by your health care provider. ??? If you use oral diabetes medicine, you may need to stop taking it if you are not able to eat or drink normally. Ask your health care provider about whether you need to stop taking these medicines while you are sick. ??? If you use injectable hormone medicines other than insulin to control your diabetes, ask your health care provider about whether you need to stop taking these medicines while you are sick. What else can I do to manage my diabetes when I am sick? Check your ketones??? If you have type 1 diabetes, check your urine ketones every 4 hours. ??? If you have type 2 diabetes, check your urine ketones as often as told by your health care provider. Drink fluids??? Drink enough fluid to keep your urine clear or pale yellow. This is especially important if you have a fever, vomiting, or diarrhea. Those symptoms can lead to dehydration. ??? Follow any instructions from your health care provider about beverages to avoid. ? Do notdrink alcohol, caffeine, or drinks that contain a lot of sugar. Take medicines as directed??? Nszc-xmir-ehu-counter and prescription medicines only as told by your health care provider. ??? Check medicine labels for added sugars. Some medicines may contain sugar or types of sugars that can raise your blood glucose level. What foods can I eat when I am sick? You need to eat some form of carbohydrates when you are sick. You should eat 45?50 grams (45?50 g) of carbohydrates every 3?4 hours until you feel better. All of the food choices below contain about 15 g of carbohydrates. Plan ahead and keep some of these foods around so you have them if you get sick. ??? 4?6 oz (120?177 mL) carbonated beverage that contains sugar, such as regular (not diet) soda. You may be able to drink carbonated beverages more easily if you open the beverage and let it sit at room temperature for a few minutes before drinking. ? of a twin frozen ice pop. ??? 4 oz (120 g) regular gelatin. ??? 4 oz (120 mL) fruit juice. ??? 4 oz (120 g) ice cream or frozen yogurt. ??? 2 oz (60 g) sherbet. ??? 8 oz (240 mL) clear broth or soup. ??? 4 oz (120 g) regular custard. ??? 4 oz (120 g) regular pudding. ??? 8 oz (240 g) plain yogurt. ??? 1 slice bread or toast. ??? 6 saltine crackers. ??? 5 vanilla wafers. Questions to ask your health care provider Consider asking the following questions so you know what to do on days when you are sick: ??? Should I adjust my diabetes medicines? How often do I need to check my blood glucose? What supplies do I need to manage my diabetes at home when I am sick? What number can I call if I have questions? What foods and drinks should I avoid? Contact a health care provider if: ??? You develop symptoms of diabetic ketoacidosis, such as: ? Fatigue. ? Weight loss. ? Excessive thirst. ? Light-headedness. ? Fruity or sweet-smelling breath. ? Excessive urination. ? Vision changes. ? Confusion or irritability. ? Nausea. ? Vomiting. ? Rapid breathing. ? Pain in the abdomen. ? Feeling flushed. ??? You are unable to drink fluids without vomiting. ??? You have any of the following for more than 6 hours: ? Nausea. ? Vomiting. ? Diarrhea. ??? Your blood glucose is at or above 240 mg/dL (13.3 mmol/L), even after you take an additional insulin dose. ??? You have a change in how you think, feel, or act (mental status). ??? You develop another serious illness. ??? You have been sick or have had a fever for 2 days or longer and you are not getting better. Get help right away if: ??? Your blood glucose is lower than 54 mg/dL (3.0 mmol/L). ??? You have difficulty breathing. ??? You have moderate or high ketone levels in your urine. ??? You used emergency glucagon to treat low blood glucose. Summary ??? Blood sugar (glucose) can be difficult to control when you are sick. Common illnesses that can cause problems for people with diabetes (diabetes mellitus) include colds, fever, flu (influenza), nausea, vomiting, and diarrhea. ??? Illnesses can cause stress and loss of body fluids (dehydration), and those issues can cause blood glucose levels to increase. ??? Make a plan for days when you are sick (sick day plan) as part of your diabetes management plan. You and your health care provider should make this plan in advance. ??? It is very important to take your insulin and diabetes medicines and to eat some form of carbohydrate when you are sick. ??? Contact your health care provider if have problems managing your blood glucose levels when you are sick, or if you have been sick or had a fever for 2 days or longer and are not getting better. This information is not intended to replace advice given to you by your health care provider. Make sure you discuss any questions you have with your health care provider. Document Released: 10/03/2004 Document Revised: 06/29/2017 Document Reviewed: 06/29/2017 [employer] Interactive Patient Education ? 2017 [employer]. Weakness Weakness is a lack of strength. You may feel weak all over your body or just in one part of your body. Weakness can be serious. In some cases, you may need more medical tests. HOME CARE ??? Rest. ??? Eat a well-balanced diet. ??? Try to exercise every day. ??? Only take medicines as told by your doctor. GET HELP RIGHT AWAY IF: ??? You cannot do your normal daily activities. ??? You cannot walk up and down stairs, or you feel very tired when you do so. ??? You have shortness of breath or chest pain. ??? You have trouble moving parts of your body. ??? You have weakness in only one body part or on only one side of the body. ??? You have a fever. ??? You have trouble speaking or swallowing. ??? You cannot control when you pee (urinate) or poop (bowel movement). ??? You have black or bloody throw up (vomit) or poop. ??? Your weakness gets worse or spreads to other body parts. ??? You have new aches or pains. MAKE SURE YOU: ??? Understand these instructions. ??? Will watch your condition. ??? Will get help right away if you are not doing well or get worse. This information is not intended to replace advice given to you by your health care provider. Make sure you discuss any questions you have with your health care provider. Document Released: 09/13/2009 Document Revised: 04/01/2013 Document Reviewed: 07/21/2016 [employer] Interactive Patient Education ? 2017 [employer]. Medication Leaflets: amoxicillin and clavulanate potassium (am OK i HEIDI in KLAV ue MYLA ate joe TAS ee um) Augmentin, Augmentin ES-600, Augmentin XR What is the most important information I should know about amoxicillin and clavulanate potassium? You should not use this medicine if you have severe kidney disease, if you have had liver problems or jaundice while taking amoxicillin and clavulanate potassium, or if you are allergic to any penicillin or cephalosporin antibiotic, such as Amoxil, Ceftin, Cefzil, Moxatag, Omnicef, and others. What is amoxicillin and clavulanate potassium? Amoxicillin is a penicillin antibiotic that fights bacteria in the body. Clavulanate potassium is a beta-lactamase inhibitor that helps prevent certain bacteria from becoming resistant to amoxicillin. Amoxicillin and clavulanate potassium is a combination medicine used to treat many different infections caused by bacteria, such as sinusitis, pneumonia, ear infections, bronchitis, urinary tract infections, and infections of the skin. Amoxicillin and clavulanate potassium may also be used for purposes not listed in this medication guide. What should I discuss with my healthcare provider before taking amoxicillin and clavulanate potassium? You should not use this medicine if you are allergic to it, or if: ? you have severe kidney disease (or if you are on dialysis); ?? you have had liver problems or jaundice while taking amoxicillin and clavulanate potassium; or ?? you are allergic to any penicillin or cephalosporin antibiotic, such as Amoxil, Ceftin, Cefzil, Moxatag, Omnicef, and others. To make sure amoxicillin and clavulanate potassium is safe for you, tell your doctor if you have ever had: ? liver disease (hepatitis or jaundice); ?? kidney disease; or ?? mononucleosis. It is not known whether this medicine will harm an unborn baby. Tell your doctor if you are or plan to become . Amoxicillin and clavulanate potassium can make control pills less effective. Ask your doctor about using a non-hormonal control (condom, diaphragm with spermicide) to prevent . Amoxicillin and clavulanate potassium can pass into breast milk and may affect the nursing baby. Tell your doctor if you are breast-feeding. Do not give this medicine to a child without medical advice. The liquid or chewable tablet may contain phenylalanine. Talk to your doctor before using these forms of this medicine if you have phenylketonuria (PKU). How should I take amoxicillin and clavulanate potassium? Follow all directions on your prescription label. Do not take this medicine in larger or smaller amounts or for longer than recommended. Take the medicine every 12 hours, at the start of a meal to reduce stomach upset. Do not crush or chew the extended-release tablet. Swallow the pill whole, or break the pill in half and take both halves one at a time. If you have trouble swallowing a whole or half pill, talk with your doctor about using another form of amoxicillin and clavulanate potassium. The chewable tablet must be chewed before you swallow it. Shake the liquid medicine well just before you measure a dose. Measure liquid medicine with the dosing syringe provided, or with a special dose-measuring spoon or medicine cup. If you do not have a dose-measuring device, ask your pharmacist for one. Use this medicine for the full prescribed length of time. Your symptoms may improve before the infection is completely cleared. Skipping doses may also increase your risk of further infection that is resistant to antibiotics. Amoxicillin and clavulanate potassium will not treat a viral infection such as the flu or a common cold. This medicine can cause unusual results with certain lab tests for glucose (sugar) in the urine. Tell any doctor who treats you that you are using amoxicillin and clavulanate potassium. Store the tablets at room temperature away from moisture and heat. Store the liquid in the refrigerator. Throw away any unused liquid after 10 days. What happens if I miss a dose? Take the missed dose as soon as you remember. Skip the missed dose if it is almost time for your next scheduled dose. Do not take extra medicine to make up the missed dose. What happens if I overdose? Seek emergency medical attention or call the Poison Help line at . Overdose can cause nausea, vomiting, stomach pain, diarrhea, skin rash, drowsiness, hyperactivity, and decreased urination. What should I avoid while taking amoxicillin and clavulanate potassium? Avoid taking this medicine together with or just after eating a high-fat meal. This will make it harder for your body to absorb the medication. Antibiotic medicines can cause diarrhea, which may be a sign of a new infection. If you have diarrhea that is watery or bloody, call your doctor. Do not use anti-diarrhea medicine unless your doctor tells you to. What are the possible side effects of amoxicillin and clavulanate potassium? Get emergency medical help if you have signs of an allergic reaction: hives; difficult breathing; swelling of your face, lips, tongue, or throat. Call your doctor at once if you have: ? severe stomach pain, diarrhea that is watery or bloody; ?? pale or yellowed skin, dark colored urine, fever, confusion or weakness; ?? loss of appetite, upper stomach pain, jaundice (yellowing of the skin or eyes); ?? easy bruising or bleeding; ?? little or no urination; or ?? severe skin reaction--fever, sore throat, swelling in your face or tongue, burning in your eyes, skin pain followed by a red or purple skin rash that spreads (especially in the face or upper body) and causes blistering and peeling. Common side effects may include: ? nausea, diarrhea; or ?? vaginal itching or discharge; This is not a complete list of side effects and others may occur. Call your doctor for medical advice about side effects. You may report side effects to FDA at 9-081-UCD-1489. What other drugs will affect amoxicillin and clavulanate potassium? Tell your doctor about all your current medicines and any you start or stop using, especially: ? allopurinol; ?? probenecid; or ?? a blood thinner--warfarin, Coumadin, Jantoven. This list is not complete. Other drugs may interact with amoxicillin and clavulanate potassium, including prescription and sipm-gmg-xcaabpi medicines, vitamins, and herbal products. Not all possible interactions are listed in this medication guide. Where can I get more information? Your pharmacist can provide more information about amoxicillin and clavulanate potassium. Remember, keep this and all other medicines out of the reach of children, never share your medicines with others, and use this medication only for the indication prescribed. Every effort has been made to ensure that the information provided by [employer] is accurate, up-to-date, and complete, but no guarantee is made to that effect. Drug information contained herein may be time sensitive. [employer] information has been compiled for use by healthcare practitioners and consumers in the [place] and therefore [employer] does not warrant that uses outside of the [place] are appropriate, unless specifically indicated otherwise. [employer]'s drug information does not endorse drugs, diagnose patients or recommend therapy. [employer] drug information is an informational resource designed to assist licensed healthcare practitioners in caring for their patients and/or to serve consumers viewing this service as a supplement to, and not a substitute for, the expertise, skill, knowledge and judgment of healthcare practitioners. The absence of a warning for a given drug or drug combination in no way should be construed to indicate that the drug or drug combination is safe, effective or appropriate for any given patient. [facility] does not assume any responsibility for any aspect of healthcare administered with the aid of information [facility] provides. The information contained herein is not intended to cover all possible uses, directions, precautions, warnings, drug interactions, allergic reactions, or adverse effects. If you have questions about the drugs you are taking, check with your doctor, nurse or pharmacist. Copyright 4724-7324 [facility], [employer]. Version: 08.16. Revision Date: 10/16/2017. formoterol and mometasone (for HEMALATHA bhandari and hemalatha breen) Usama What is the most important information I should know about formoterol and mometasone? Formoterol and mometasone is not a rescue medicine for asthma attacks. Seek medical attention if your breathing problems get worse quickly, or if you think your asthma medications are not working as well. What is formoterol and mometasone? Formoterol is a long-acting bronchodilator that relaxes muscles in the airways to improve breathing. Mometasone is a steroid. It prevents the release of substances in the body that cause inflammation. Formoterol and mometasone is a combination medicine used as a maintenance treatment for asthma in adults and children who are at least 12 years old. This medicine is not for use in treating an asthma or bronchospasm attack. Formoterol when used alone may increase the risk of in people with asthma. However, this risk is not increased when formoterol and mometasone are used together as a combination product. Formoterol and mometasone may also be used for purposes not listed in this medication guide. What should I discuss with my healthcare provider before using formoterol and mometasone? You should not use this medication if you are allergic to formoterol (Foradil, Perforomist, Symbicort) or mometasone (Asmanex). Mometasone can weaken your immune system. Tell your doctor about any illness or infection you've had within the past several weeks. Tell your doctor if you have ever had: ? heart disease, high blood pressure; ?? liver disease; ?? low bone mineral density; ?? glaucoma or cataracts; ?? seizures; ?? osteoporosis; ?? diabetes; ?? a weak immune system; ?? a drug allergy; ?? pheochromocytoma (tumor of the adrenal gland); ?? a thyroid disorder; or ?? an aneurysm (a weakened or damaged blood vessel that could tear and cause severe bleeding). Long-term use of steroids may lead to bone loss (osteoporosis), especially if you smoke, if you do not exercise, if you don't get enough vitamin D or calcium in your diet, or if you have a family history of osteoporosis. Talk with your doctor about your risk. It is not known whether this medicine will harm an unborn baby. Tell your doctor if you are or plan to become . It may not be safe to breast-feed a baby while you are using this medicine. Ask your doctor about any risks. Formoterol and mometasone is not approved for use by anyone younger than 12 years old. How should I use formoterol and mometasone? Follow all directions on your prescription label and read all medication guides. Use the medicine exactly as directed. Using too much of this medicine can cause life-threatening side effects. Formoterol and mometasone is not a rescue medicine for asthma attacks. Use only fast-acting inhalation medicine for an asthma attack. Seek medical attention if your fast-acting medicine does not work. Read and carefully follow any Instructions for Use provided with your medicine. Ask your doctor or pharmacist if you do not understand these instructions. Rinse your mouth with water after each use of your inhaler. It may take up to 1 week before your symptoms improve. Keep using the medication as directed and tell your doctor if your symptoms do not improve. Your doctor may tell you to stop using formoterol and mometasone once your asthma is well controlled. Asthma is often treated with a combination of drugs. Use all medications as directed. Your dose needs may change due to surgery, illness, stress, or a recent asthma attack. Do not change your dose or dosing schedule without your doctor's advice. Tell your doctor if any of your medicines seem to stop working. Store at room temperature away from moisture and high heat. The canister may explode if it gets too hot. Do not puncture or burn an empty inhaler canister. Store the 60-inhalation canister on its side, or with the mouthpiece down. What happens if I miss a dose? Use the medicine as soon as you can, but skip the missed dose if it is almost time for your next dose. Do not use two doses at one time. What happens if I overdose? Seek emergency medical attention or call the Poison Help line at . Overdose symptoms may include chest pain, fast heart rate, and feeling shaky or short of breath. What should I avoid while using formoterol and mometasone? Do not use a second form of formoterol (Bevespi, Perforomist, Symbicort) or other long-acting inhaled bronchodilator unless your doctor tells you to. Avoid being near people who are sick or have infections. Call your doctor for preventive treatment if you are exposed to chickenpox or measles. These conditions can be serious or even fatal in people who are using a steroid such as mometasone. What are the possible side effects of formoterol and mometasone? Get emergency medical help if you have signs of an allergic reaction: hives; difficulty breathing; swelling of your face, lips, tongue, or throat. Call your doctor at once if you have: ? sores or white patches in your mouth or throat; ?? wheezing, choking, or other breathing problems after using this medication; ?? blurred vision, eye pain, or seeing halos around lights; ?? changes in the shape or location of body fat (especially in your arms, legs, face, neck, breasts, and waist); ?? chest pain, fast or pounding heartbeats, tremors, restless feeling, seizure; ?? low potassium--leg cramps, constipation, irregular heartbeats, fluttering in your chest, increased thirst or urination, numbness or tingling, muscle weakness or limp feeling; ?? high blood sugar--increased thirst, increased urination, hunger, dry mouth, fruity breath odor, drowsiness, dry skin, blurred vision, weight loss; ?? signs of infection--fever, chills, body aches, tiredness, nausea, vomiting; or ?? worsening asthma symptoms. Mometasone can affect growth in children. Tell your doctor if your child is not growing at a normal rate while using this medicine. Common side effects may include: ? headache; ?? runny or stuffy nose, sinus pain; ?? cough, sore throat; or ?? flu symptoms. This is not a complete list of side effects and others may occur. Call your doctor for medical advice about side effects. You may report side effects to FDA at 4-362-ZUR-8477. What other drugs will affect formoterol and mometasone? Sometimes it is not safe to use certain medications at the same time. Some drugs can affect your blood levels of other drugs you take, which may increase side effects or make the medications less effective. Tell your doctor about all your other medicines, especially: ? antifungal medicine such as ketoconazole; or ?? medicine to treat HIV, such as lopinavir or ritonavir. This list is not complete. Other drugs may affect formoterol and mometasone, including prescription and pxlp-yzn-jtxglyx medicines, vitamins, and herbal products. Not all possible drug interactions are listed here. Where can I get more information? Your pharmacist can provide more information about formoterol and mometasone. Remember, keep this and all other medicines out of the reach of children, never share your medicines with others, and use this medication only for the indication prescribed. Every effort has been made to ensure that the information provided by [employer] is accurate, up-to-date, and complete, but no guarantee is made to that effect. Drug information contained herein may be time sensitive. [employer] information has been compiled for use by healthcare practitioners and consumers in the [place] and therefore [employer] does not warrant that uses outside of the [place] are appropriate, unless specifically indicated otherwise. [employer]'s drug information does not endorse drugs, diagnose patients or recommend therapy. [employer] drug information is an informational resource designed to assist licensed healthcare practitioners in caring for their patients and/or to serve consumers viewing this service as a supplement to, and not a substitute for, the expertise, skill, knowledge and judgment of healthcare practitioners. The absence of a warning for a given drug or drug combination in no way should be construed to indicate that the drug or drug combination is safe, effective or appropriate for any given patient. [facility] does not assume any responsibility for any aspect of healthcare administered with the aid of information [facility] provides. The information contained herein is not intended to cover all possible uses, directions, precautions, warnings, drug interactions, allergic reactions, or adverse effects. If you have questions about the drugs you are taking, check with your doctor, nurse or pharmacist. Copyright 5332-6654 [facility]. Version: 9.01. Revision Date: 12/31/2017. saccharomyces boulardii lyo (SAK a han MYE sees ruiz LAR bruce eye LYE [place]) Florastor, Florastor Kids, Saccharomyces Boulardii+MOS What is the most important information I should know about saccharomyces boulardii lyo? Follow all directions on the product label and package. Tell each of your healthcare providers about all your medical conditions, allergies, and all medicines you use. What is saccharomyces boulardii lyo? Saccharomyces boulardii lyo is a specific form of yeast also known as Logan's Yeast, Martini CBS 5926, Levure de Jaierie, and Probiotic. Saccharomyces boulardii lyo has been used as a probiotic, or 'friendly bacteria,' to prevent the growth of harmful bacteria in the stomach and intestines. Saccharomyces boulardii lyo is likely effective in alternative medicine as an aid in preventing diarrhea caused by taking antibiotics, or by using a feeding tube. Saccharomyces boulardii lyo is also likely effective in treating diarrhea in babies and children. Saccharomyces boulardii lyo has been used as a possibly effective aid in preventing the recurrence of diarrhea caused by Clostridium difficile (C. difficile). However, this product may not be effective in treating the first episodes of this type of diarrhea. Saccharomyces boulardii lyo is also possibly effective in treating 'traveler's diarrhea,' diarrhea in people with HIV, and stomach ulcers caused by Helicobacter pylori. Other uses not proven with research have included irritable bowel disease, Crohn's disease, ulcerative colitis, cystic fibrosis, urinary tract infections, yeast infections, lactose intolerance, and other conditions. It is not certain whether saccharomyces boulardii lyo is effective in treating any medical condition. Medicinal use of this product has not been approved by the FDA. Saccharomyces boulardii lyo should not be used in place of medication prescribed for you by your doctor. Saccharomyces boulardii lyo is often sold as an herbal supplement. There are no regulated manufacturing standards in place for many herbal compounds and some marketed supplements have been found to be contaminated with toxic metals or other drugs. Herbal/health supplements should be purchased from a reliable source to minimize the risk of contamination. Saccharomyces boulardii lyo may also be used for purposes not listed in this product guide. What should I discuss with my healthcare provider before taking saccharomyces boulardii lyo? You should not use saccharomyces boulardii lyo if you are allergic to yeast, or if you are taking an antifungal medication such as: ? clotrimazole (Mycelex Mary); ?? itraconazole (Sporanox); ?? ketoconazole (Nizoral); ?? miconazole (Oravig); ?? nystatin (Mycostatin, Bio-Statin, Nilstat); or ?? voriconazole (Vfend). Ask a doctor, pharmacist, or other healthcare provider if it is safe for you to use this product if you have: ? weak immune system (caused by disease or by using certain medicine); ?? lactose intolerance; ?? if you are dehydrated; or ?? if you have a central IV line (venous catheter). It is not known whether saccharomyces boulardii lyo will harm an unborn baby. Do not use this product without medical advice if you are . It is not known whether saccharomyces boulardii lyo passes into breast milk or if it could harm a nursing baby. Do not use this product without medical advice if you are breast-feeding a baby. Do not give any herbal/health supplement to a child without medical advice. A child with diarrhea should be checked by a doctor. How should I take saccharomyces boulardii lyo? When considering the use of herbal supplements, seek the advice of your healthcare provider. You may also consider consulting a practitioner who is trained in the use of herbal/health supplements. If you choose to take saccharomyces boulardii lyo, use it as directed on the package or as directed by your healthcare provider, pharmacist, or other healthcare provider. Do not use more of this product than is recommended on the label. You may take saccharomyces boulardii lyo with or without food. Saccharomyces boulardii lyo is available in capsule and powder form. Do not use different formulations (such as capsules together with powder) at the same time without medical advice. You may get too much of this product. You may swallow the capsule whole, or open it and sprinkle the contents directly onto your tongue. Drink at least 4 ounces of water or juice when swallowing the medicine. To use the oral powder, tear open the packet and empty the entire contents into at least 4 ounces of water, juice, or milk. Stir this mixture and drink all of it right away. To make sure you get the entire dose, add a little more water to the same glass, swirl gently and drink right away. To make swallowing easier, you may also sprinkle the medicine from a capsule or from the powder packet into a spoonful of yogurt or applesauce. Swallow right away without chewing. Do not save the mixture for later use. Discard the empty capsule. Call your doctor if the condition you are treating with saccharomyces boulardii lyo does not improve, or if it gets worse while using this product. Store this product at room temperature away from moisture and heat. Do not refrigerate. What happens if I miss a dose? Skip the missed dose if it is almost time for your next scheduled dose. Do not use extra saccharomyces boulardii lyo to make up the missed dose. What happens if I overdose? Seek emergency medical attention or call the Poison Help line at . What should I avoid while taking saccharomyces boulardii lyo? Follow your healthcare provider's instructions about any restrictions on food, beverages, or activity. What are the possible side effects of saccharomyces boulardii lyo? Get emergency medical help if you have signs of an allergic reaction: hives; difficult breathing; swelling of your face, lips, tongue, or throat. Although not all side effects are known, saccharomyces boulardii lyo is thought to be likely safe for most people when used as directed for up to 15 months. Common side effects may include: ? gas, bloating; or ?? constipation. This is not a complete list of side effects and others may occur. Call your healthcare provider for medical advice about side effects. You may report side effects to FDA at 5-878-COQ-1486. What other drugs will affect saccharomyces boulardii lyo? Other drugs may interact with saccharomyces boulardii lyo, including prescription and tash-pfo-rhncjna medicines, vitamins, and herbal products. Tell each of your health care providers about all medicines you use now and any medicine you start or stop using. Where can I get more information? Consult with a licensed healthcare professional before using any herbal/health supplement. Whether you are treated by a medical doctor or a practitioner trained in the use of natural medicines/supplements, make sure all your healthcare providers know about all of your medical conditions and treatments. Remember, keep this and all other medicines out of the reach of children, never share your medicines with others, and use this medication only for the indication prescribed. Every effort has been made to ensure that the information provided by [employer]. ('[employer]') is accurate, up-to-date, and complete, but no guarantee is made to that effect. Drug information contained herein may be time sensitive. [employer] information has been compiled for use by healthcare practitioners and consumers in the [place] and therefore [employer] does not warrant that uses outside of the [place] are appropriate, unless specifically indicated otherwise. [employer] drug information does not endorse drugs, diagnose patients or recommend therapy. [employer] drug information is an informational resource designed to assist licensed healthcare practitioners in caring for their patients and/or to serve consumers viewing this service as a supplement to, and not a substitute for, the expertise, skill, knowledge and judgment of healthcare practitioners. The absence of a warning for a given drug or drug combination in no way should be construed to indicate that the drug or drug combination is safe, effective or appropriate for any given patient. [employer] does not assume any responsibility for any aspect of healthcare administered with the aid of information [employer] provides. The information contained herein is not intended to cover all possible uses, directions, precautions, warnings, drug interactions, allergic reactions, or adverse effects. If you have questions about the drugs you are taking, check with your doctor, nurse or pharmacist. Copyright 2588-9047 [employer]. Version: 2.03. Revision Date: 09/17/2015. insulin glargine (IN leos gm GLAR gine) Nena Walker Lantus Solostar Pen, Gilma Sandoval What is the most important information I should know about insulin glargine? Never share an injection pen or syringe with another person, even if the needle has been changed. What is insulin glargine? Insulin glargine is a long-acting insulin that starts to work several hours after injection and keeps working evenly for 24 hours. Insulin glargine is used to improve blood sugar control in adults and children with diabetes mellitus. Insulin glargine is used to treat type 1 or type 2 diabetes in adults, and type 1 diabetes children who are at least 6 years old. Some brands of this medicine are for use only in adults. Carefully follow all instructions for the brand of insulin glargine you are using. Insulin glargine may also be used for purposes not listed in this medication guide. What should I discuss with my healthcare provider before using insulin glargine? You should not use this medicine if you are allergic to insulin, or if you are having an episode of hypoglycemia (low blood sugar) or diabetic ketoacidosis. Insulin glargine is not approved for use by anyone younger than 6 years old, and some brands are for use only in adults. Do not use this medicine to treat type 2 diabetes in a child of any age. Tell your doctor if you have ever had: ? liver or kidney disease; or ?? heart failure or other heart problems. Tell your doctor if you also take pioglitazone or rosiglitazone (sometimes contained in combinations with glimepiride or metformin). Taking certain oral diabetes medicines while you are using insulin may increase your risk of serious heart problems. Follow your doctor's instructions about using insulin if you are or breast-feeding a baby. Blood sugar control is very important during , and your dose needs may be different during each trimester of . Your dose needs may also be different while you are breast-feeding. How should I use insulin glargine? Follow all directions on your prescription label and read all medication guides or instruction sheets. Use the medicine exactly as directed. Insulin glargine is injected under the skin. A healthcare provider may teach you how to properly use the medication by yourself. Insulin glargine must not be given with an insulin pump, or mixed with other insulins. Do not inject insulin glargine into a vein or a muscle. Read and carefully follow any Instructions for Use provided with your medicine. Do not use insulin glargine if you don't understand all instructions for proper use. Ask your doctor or pharmacist if you have questions. The Toujeo brand of insulin glargine contains 3 times as much insulin per milliliter (mL) as the Lantus or Basaglar brands. There are 300 units of insulin in 1 mL of Toujeo, and 100 units in 1 mL of Lantus or Basaglar. If there are any changes in the brand, strength, or type of insulin you use, your dosage needs may change. If you use an injection pen, use only the injection pen that comes with insulin glargine. Attach a new needle before each use. Do not transfer the insulin from the pen into a syringe. Never share an injection pen or syringe with another person, even if the needle has been changed. Sharing these devices can allow infections or disease to pass from one person to another. Low blood sugar (hypoglycemia) can happen to everyone who has diabetes. Symptoms include headache, hunger, sweating, irritability, dizziness, nausea, and feeling shaky. To quickly treat low blood sugar, always keep a fast-acting source of sugar with you such as fruit juice, hard candy, crackers, raisins, or non-diet soda. Your doctor can prescribe a glucagon emergency injection kit to use in case you have severe hypoglycemia and cannot eat or drink. Be sure your family and close friends know how to give you this injection in an emergency. Also watch for signs of high blood sugar (hyperglycemia) such as increased thirst or urination, blurred vision, headache, and tiredness. Blood sugar levels can be affected by stress, illness, surgery, exercise, alcohol use, or skipping meals. Ask your doctor before changing your dose or medication schedule. Keep this medicine in its original container protected from heat and light. Do not draw insulin from a vial into a syringe until you are ready to give an injection. Do not freeze insulin or store it near the cooling element in a refrigerator. Throw away any insulin that has been frozen. Storing unopened (not in use) Basaglar or Lantus: ? Refrigerate and use until expiration date; or ?? Store at room temperature and use within 28 days. Storing unopened (not in use) Toujeo: ? Refrigerate and use until expiration date. Storing opened (in use) Basaglar or Lantus: ? Store the vial in a refrigerator or at room temperature and use within 28 days. ?? Store the injection pen at room temperature (do not refrigerate) and use within 28 days. Storing opened (in use) Toujeo: ? Store the injection pen at room temperature (do not refrigerate) and use within 42 days. Do not store an injection pen with the needle attached. Do not use the medicine if it looks cloudy, has changed colors, or has any particles in it. Call your pharmacist for new medicine. Wear a diabetes medical alert tag in case of emergency. Any medical care provider who treats you should know that you have diabetes. Use a needle and syringe only once and then place them in a puncture-proof 'sharps' container. Follow state or local laws about how to dispose of this container. Keep it out of the reach of children and pets. What happens if I miss a dose? Call your doctor for instructions if you miss a dose of insulin glargine. You should not use more than one dose in a 24-hour period unless your doctor tells you to. Get your prescription refilled before you run out of medicine completely. What happens if I overdose? documented in this encounter Plan of Treatment Not on file documented as of this encounter Visit Diagnoses Not on filedocumented in this encounter
--- OUTSIDE RECORDS SUMMARY | 2025-08-05 07:28 | XMS_ITS | Encounter Summary ---
Author Organization [employer] ([place], [place], [place], [place]) Address [address] [place] [address] Care Team Providers Care Dust Mop Maker Name Role Phone Unavailable Primary Care Provider Unavailabl e Encounter Details Date Type Department Care Team (Late st Contact Info) Description 01/06/2019 Transcribed Document [facility] [place] Family Medicine [address] [place] [address] ProviderKentrell MD [address] [place], [place] [id number] Social History Tobacco Use Types Packs/Day Years Used Date Smoking Tobacco: Never Assessed Comments Unknown Sex and Gender Information Value Date Recorded Sex Assigned at Not on file Legal Sex Female 5:31 PM CDT Gender Identity Not on file Sexual Orientation Not on file documented as of this encounter Miscellaneous Notes * Cerner Conversion Note - Kentrell Lorenzo MD - 01/06/2019 11:16 AM CDT Pain Assessment Entered On: 01/07/2019 5:00 EDT Performed On: 01/07/2019 2:41 EDT by Armand Cristobal Rn Intervention Information: oxyCODONE Performed by Armand Cristobal Rn on 01/07/2019 01:41:00 EDT oxyCODONE,5mg Oral,Pain Pain Assessment Pain Assessment : Follow-up assessment Pain Scale Goal : 3 Pain Scale Used : 0-10 Scale Armand Cristobal Rn - 01/07/2019 4:59 EDT Pain Scale Intensity : 3 Armand Cristobal Rn - 01/07/2019 4:59 EDT Image 4 - Images currently included in the form version of this document have not been included in the text rendition version of the form. documented in this encounter Plan of Treatment Not on file documented as of this encounter Visit Diagnoses Not on filedocumented in this encounter
--- OUTSIDE RECORDS SUMMARY | 2025-08-05 07:28 | XMS_ITS | Encounter Summary ---
Author Organization [employer] ([place], [place], [place], [place]) Address [address] [place] [address] Care Team Providers Care Drum Reel Cutter Name Role Phone Unavailable Primary Care Provider Unavailabl e Encounter Details Date Type Department Care Team (Late st Contact Info) Description 01/07/2019 Transcribed Document [facility] [place] [address] [place] [address] ProviderKentrell MD [address] [place] [address] Social History Tobacco Use Types Packs/Day Years Used Date Smoking Tobacco: Never Assessed Comments Unknown Sex and Gender Information Value Date Recorded Sex Assigned at Not on file Legal Sex Female 5:31 PM CDT Gender Identity Not on file Sexual Orientation Not on file documented as of this encounter Miscellaneous Notes * [employer] Conversion Note - Kentrell ProviderMD - 01/07/2019 5:00 AM CDT Chart Check - Review Order Profile Entered On: 01/07/2019 5:00 EDT Performed On: 01/07/2019 5:00 EDT by Armand Cristobal Rn Chart Check All Active Orders Reviewed : Yes Armand Cristobal Rn - 01/07/2019 5:00 EDT documented in this encounter Plan of Treatment Not on file documented as of this encounter Visit Diagnoses Not on filedocumented in this encounter
--- OUTSIDE RECORDS SUMMARY | 2025-08-05 07:28 | XMS_ITS | Encounter Summary ---
Author Organization [employer] ([place], [place], [place], [place]) Address [address] [place] [address] Care Team Providers Care Piler Name Role Phone Unavailable Primary Care Provider Unavailabl e Encounter Details Date Type Department Care Team (Late st Contact Info) Description 01/06/2019 Transcribed Document [facility] [place] [address] [place] [address] ProviderKentrell MD [facility] [place] [address] Social History Tobacco Use Types Packs/Day Years Used Date Smoking Tobacco: Never Assessed Comments Unknown Sex and Gender Information Value Date Recorded Sex Assigned at Not on file Legal Sex Female 5:31 PM CDT Gender Identity Not on file Sexual Orientation Not on file documented as of this encounter Miscellaneous Notes * Cerner Conversion Note - Kentrell Lorenzo MD - 01/06/2019 5:25 PM CDT Patient: MARICEL IGLESIAS Age: 63 years Sex: Female : 1955 Associated Diagnoses: None Author: RIP ANDREA MD Subjective Chief complaint. SOB cough resp distress weak Health Status Allergies: Allergic Reactions (Selected) Severity [...] Refill(s) azithromycin 500 mg intravenous injection: IntraVENous, [id number], 0 Refill(s) aztreonam 1 g injection: IntraVENous, [...] azithromycin 500 mg intravenous injection , IntraVENous, [id number] aztreonam 1 g injection , IntraVENous, Q12H [...] 24 hrs) Last Charted Minimum Maximum Temp 98.1 (JAN 06 21:00) 97.9 (JAN 06 08:34) 98.1 (JAN 06 01:48) Apical HR 89 (JAN 06 08:34) 89 (JAN 06 08:34) 89 (JAN 06 08:34) Mon HR 72 (JAN 06 21:00) 68 (JAN 06 06:00) 93 (JAN 06 10:00) Resp Rate 16 (JAN 06:00) 16 (JAN 06 17:09) 20 (JAN 06 08:34) SBP 138 (JAN 06 21:00) 110 (JAN 06 06:00) 140 (JAN 06 08:34) DBP 66 (JAN 06:00) 60 (JAN 06 06:00) 78 (JAN 06 08:34) MAP 88 (JAN 06:09) 81 (JAN 06 06:00) 104 (JAN 06 08:34) SpO2 96 (JAN 06 17:06) 95 (JAN 06 13:57) 96 (JAN 06 06:00) General: Alert and oriented, Moderate distress. Eye: [...] & affect, Normal judgment. Results Review JAN 06 07:21 138 L 95 18 / H 292 3.8 H 35 1.00 \ JAN 06 07:21 \ L 8.6 / H 18.6 H 452 / L 28.8 \ JAN 06 07: 138 L 95 18 / H 292 3.8 H 35 1.00 \ JAN 06 07:21 \ L 8.6 / H 18.6 H 452 / L 28.8 \ Impression and Plan Acute hypoxemic respiratory [...] coumadin therapy, being bridged with lovenox at [facility] due to subtherapeutic INR - multiple unprovoked DVT/PE, s/p IVC filter ITP s/p splenectomy in 1986 HFpEF, stable, not in acute exacerbation Type 2 diabetes mellitus, unclear control Leukocytosis, WBC 23.4, w/ neutrophilia. - patient also on steroid at OSH, PCT pending Hypothyroidism, on synthroid Depression Hyperlipidemia, on statin Obesity, BMI 46.7 Hx of endometrial cancer Plan Bumex Orally labs in am Pulmonary following continue Augmentin /Doxycyclin stable hemoglobin time spent 25 min Electronically signed by Charlotte Sprague Conversion Assembler [employer] Electrical Cerner at 01/29/2023 9:30 AM CDT documented in this encounter Plan of Treatment Not on file documented as of this encounter Visit Diagnoses Not on filedocumented in this encounter
--- OUTSIDE RECORDS SUMMARY | 2025-08-05 07:28 | XMS_ITS | Encounter Summary ---
Author Organization [employer] ([place], [place], [place], [place]) Address [address] [place] [address] Care Team Providers Care Packer Insulation Name Role Phone Unavailable Primary Care Provider Unavailabl e Encounter Details Date Type Department Care Team (Late st Contact Info) Description 01/04/2019 Transcribed Document [facility] Family Medicine [address] [place] [address] ProviderKentrell MD [facility] [place] [address] Social History Tobacco Use Types Packs/Day Years [...] ProviderMD - 01/04/2019 11:08 PM CDT Evaluation, Physical Therapy Entered On: 01/05/2019 11:49 EDT Performed On: 01/05/2019 10:35 EDT by BRANDON FLORES PT General Information, PT Visit Type, PT : Initial evaluation Patient Orders : Order Date Order Ordering 01/04/2019 23:08 PT Evaluation and Treatment Ordered By: JEANETTE CABRAL DO Active Diagnoses : No Qualifying Diagnoses Therapy Diagnosis, PT : impaired mobility due to SOA Onset of Problem, PT : 01/04/2019 EDT Admission Date : 01/04/2019 21:58 Personal Devices : Personal Devices No Devices Recorded Assistive Devices : Assistive Devices No Devices Recorded General Information Comment, PT : pt is 63 year old female adm with dyspnea on exertion, resp failure, abd pain . CT abd reveals rectus sheath hematoma Hx of ITP s/p splenectomy, mult DVT's, PE's, asthma, IBS and HLD. in Oct pt had flu and PNA . seen bedside room 311. 02 at 3 liters and Iv in place. BRANDON FLORES, PT - 01/05/2019 11:32 EDT General Status Patient Received Status : Supine in bed, HOB elevated Treatment Start Time : 01/05/2019 10:15 EDT Patient Left Status : Supine in bed, RN/PCT informed, Communication board completed, All needs met and within reach RN/PCT Informed Comment : pt ok for PTx per Amalia Olson Treatment End Time : 01/05/2019 10:35 EDT Treatment Time : 20 Minute(s) BRANDON FLORES, PT - 01/05/2019 11:32 EDT History and Environment Living Situation, Therapy : Home Patient Lives With : Alone, Other: Pt's grandson has been home with her recently, 17 yrs old Persons Assisting Patient at Home : Alone Professional Skilled Services : None Persons Providing Information : Patient Home Equipment Therapy, PT : Other: straight cane and RWx Home Setup : One story Stairs : No BRANDON FLORES, PT - 01/05/2019 11:32 EDT Prior Level of Function PT GRID Prior LOF Ambulation, Household : Independent Prior LOF Ambulation, Community : Independent Prior LOF Bed Mobility : Independent Prior LOF Toileting : Independent Prior LOF Transfer : Independent BRANDON FLORES, PT - 01/05/2019 11:32 EDT Prior LOF Assist with ADL Comment : independent with dressing and bathing BRANDON FLORES, PT - 01/05/2019 11:32 EDT Intervention Summary Heart Rate/Pulse During Intervention : 94 bpm O2 During Intervention : 02 at 3 liters SpO2 During Intervention : 91 % Therapist Assessment During Intervention : sitting EOB BRANDON FLORES, PT - 01/05/2019 11:32 EDT Upper Extremity Upper Extremity Dominance : Right Right UE Active ROM : WFL Right UE Strength : WFL Left UE Active ROM : WFL Left UE Strength : WFL Upper Extremity Comment : trigger finger left ring and middle finger. Had right wrist fracture and bilateral rotator cuff torn BRANDON FLORES, PT - 01/05/2019 11:32 EDT Lower Extremity RLE Active ROM : WFL Right LE Strength : WFL LLE Active ROM : WFL Left LE Strength : WFL Lower Extremity Comment : right skin graft BRANDON FLORES, PT - 01/05/2019 11:32 EDT Functional Mobility Mobility Grid Supine to Sit : Supervision/set-up (Comment: increased effort [BRANDON FLORES, PT - 01/05/2019 11:32 EDT] ) Sit to Supine : Supervision/set-up BRANDON FLORES, PT - 01/05/2019 11:32 EDT Functional MobilityComment : pt states she is too SOA and unable to walk at this time BRANDON FLORES, PT - 01/05/2019 11:32 EDT Gait Training/Assessment, PT Gait Assistance Level : Unable to assess/activity not appropriate Walking Distance : too SOA of air and had just retunred to bed. (pt reports her 02 sats drops to 70's with gait BRANDON FLORES, PT - 01/05/2019 11:32 EDT Neurological/Sensory Overall Sensory Response : Impaired Overall Sensory Response Comment : PN in feet and left hand BRANDON FLORES, PT - 01/05/2019 11:32 EDT Cognition Assessment, PT Orientation : Oriented x 4 BRANDON FLORES, PT - 01/05/2019 11:32 EDT Edu Topics Physical Therapy Education Grid Bed Mobility Training : Needs further teaching, Returns demonstration Gait Training : Needs further teaching, Returns demonstration Therapeutic Exercises : Needs further teaching Transfer Training : Needs further teaching, Returns demonstration BRANDON FLORES, PT - 01/05/2019 11:32 EDT Indication Assesessment, PT Physical Therapy Indicated : Yes PT Problem List : Impaired, activities daily living, Impaired, bed mobility, Impaired, endurance tolerance, Impaired, gait, Impaired, transfers Potential Barriers To Therapy : Fatigue, Other: increased SOA BRANDON FLORES, PT - 01/05/2019 11:32 EDT Plan of Care, PT PT Tx Plan/Goals Established w Patient : Yes PT Frequency Rehab : Daily PT Duration Rehab : Fourteen days PT Treatments Planned : Balance training, Bed mobility training, Gait training, Therapeutic exercises, Transfer training BRANDON FLORES, PT - 01/05/2019 11:32 EDT Short Term Goals Mobility/Bed Mobility STG PT Grid Goal #1 Goal #2 Activity : Supine to sit Sit to stand Assist : Independent, modified Assist, minimal Equipment : Rail, bed Belt, gait, Walker, front wheel Date to Meet : 01/12/2019 EDT 01/12/2019 EDT Goal Status : Initial goal Initial goal BRANDON FLORES, PT - 01/05/2019 11:32 EDT BRANDON FLORES, PT - 01/05/2019 11:32 EDT Ambulation STG Grid Goal #1 Device : Walker, front wheel Distance : 100 feet Assist : Assist, minimal Date to Meet : 01/12/2019 EDT Goal Status : Intial Goal BRANDON FLORES, PT - 01/05/2019 11:32 EDT Health Services Director Goals Mobility/Bed Mobility LTG PT Grid Goal #1 Activity : Sit to supine Assist : Independent, modified Equipment : Belt, gait, Walker, front wheel Date to Meet : 01/19/2019 EDT Goal Status : Intial Goal BRANDON FLORES, PT - 01/05/2019 11:32 EDT Ambulation LTG Grid Goal #1 Device : Walker, front wheel Distance : 300 feet Assist : Supervision or set-up Date to Meet : 01/19/2019 EDT Goal Status : Intial Goal BRANDON FLORES, PT - 01/05/2019 11:32 EDT Treatment Note Subjective Comment : states name and . I can't get down, I need my independence. If I need to go to [facility] I am ready to go Patient's Response to Treatment : agreed to therapy Assessment : impaired mobility due to SOA. pt needs PTx to increase general mobility. would benefit from in patient rehab at discharge Plan for Treatment : cont POC BRANDON FLORES, PT - 01/05/2019 11:32 EDT Pain Assessment Pain Scaled Used : 0-10 Pain scale Pain Score Pre-Intervention : 8 Pain Comment : Hematoma in abdomen BRANDON FLORES, PT - 01/05/2019 11:32 EDT Image 1 - Images currently included in the form version of this document have not been included in the text rendition version of the form. Anticipated Discharge Needs, OT/PT Anticipated Discharge to OT : Unit, rehabilitation Recommend Continued Therapy at Discharge : Yes BRANDON FLORES, PT - 01/05/2019 11:[address] [facility] PT Charges PT Eval Moderate Complexity : 1 BRANDON FLORES, PT - 01/05/2019 11:32 EDT documented in this encounter Plan of Treatment Not on file documented as of this encounter Visit Diagnoses Not on filedocumented in this encounter
--- OUTSIDE RECORDS SUMMARY | 2025-08-05 07:28 | XMS_ITS | Encounter Summary ---
Author Organization [employer] ([place], [place], [place], [place]) Address [address] [place] [address] Care Team Providers Care Liquor Grinder Mill Operator Name Role Phone Unavailable Primary Care Provider Unavailabl e Encounter Details Date Type Department Care Team (Late st Contact Info) Description 01/06/2019 Transcribed Document [facility] Family Medicine [address] [place] [address] ProviderKentrell MD [facility] [place] [address] Social History Tobacco Use Types Packs/Day Years Used Date Smoking Tobacco: Never Assessed Comments Unknown Sex and Gender Information Value Date Recorded Sex Assigned at Not on file Legal Sex Female 5:31 PM CDT Gender Identity Not on file Sexual Orientation Not on file documented as of this encounter Miscellaneous Notes * Cerner Conversion Note - Kentrell Lorenzo MD - 01/06/2019 2:21 PM CDT Patient: MARICEL IGLESIAS MRN: - Age: 63 Years Sex: Female : 1955 A complicated patient admitted for abdominal pain due to a combination of Enterovirus infection and retroperitoneal bleeding. For the infection, supportive care only. For the retroperitoneal bleed, consult surgery. Nothing else GI service can offer at this point. documented in this encounter Plan of Treatment Not on file documented as of this encounter Visit Diagnoses Not on filedocumented in this encounter
--- OUTSIDE RECORDS SUMMARY | 2025-08-05 07:28 | XMS_ITS | Encounter Summary ---
Author Organization [employer] ([place], [place], [place], [place]) Address [address] [place] [address] Care Team Providers Care Child Care Cook Name Role Phone Unavailable Primary Care Provider Unavailabl e Encounter Details Date Type Department Care Team (Late st Contact Info) Description 01/04/2019 Transcribed Document [facility] Family Medicine [address] [place] [address] ProviderKentrell MD [address] [place], [place] [id number] Social History Tobacco Use Types Packs/Day Years [...] Lorenzo MD - 01/04/2019 11:08 PM CDT Pain Assessment Entered On: 01/06/2019 5:19 EDT Performed On: 01/05/2019 22:20 EDT by Armand Cristobal Rn Intervention Information: morphine Performed by Armand Cristobal Rn on 01/05/2019 21:50:00 EDT morphine,2mg IV Push,Forearm Right,Pain (Severe 7-10) Pain Assessment Pain Assessment : Follow-up assessment Pain Scale Used : 0-10 Scale Armand Cristobal Rn - 01/06/2019 5:19 EDT Pain Scale Intensity : 3 Armand Cristobal Rn - 01/06/2019 5:19 EDT Image 4 - Images currently included in the form version of this document have not been included in the text rendition version of the form. documented in this encounter Plan of Treatment Not on file documented as of this encounter Visit Diagnoses Not on filedocumented in this encounter
--- OUTSIDE RECORDS SUMMARY | 2025-08-05 07:28 | XMS_ITS | Encounter Summary ---
Author Organization [employer] ([place], [place], [place], [place]) Address [address] [place] [address] Care Team Providers Care Stenotype Operator Name Role Phone Unavailable Primary Care Provider Unavailabl e Encounter Details Date Type Department Care Team (Late st Contact Info) Description 01/06/2019 Transcribed Document [facility] Family Medicine [facility] [place] [address] ProviderKentrell MD [address] [place] [id number] Social History Tobacco Use Types Packs/Day Years Used Date Smoking Tobacco: Never Assessed Comments Unknown Sex and Gender Information Value Date Recorded Sex Assigned at Not on file Legal Sex Female 5:31 PM CDT Gender Identity Not on file Sexual Orientation Not on file documented as of this encounter Miscellaneous Notes * Cerner Conversion Note - Kentrell Lorenzo MD - 01/06/2019 3:31 PM CDT Patient: MARICEL IGLESIAS MRN: - Age: 63 Years Sex: Female : 1955 Chief Complaint dyspnea, abd pain Reason for Consultation abd pain History of Present Illness This pt is a 63-year-old female with a complicated past medical history including ITP status post splenectomy, hypercoagulable state with multiple DVTs and PEs on chronic Coumadin therapy, and asthma was transferred to [facility] from [facility] for pulmonology evaluation. She reports this past weekend, she began to feel more short of breath, with severe dyspnea on exertion and oxygen desaturations into the 60s with exertion. She was started on IV Azactam and azithromycin with concern for community-acquired pneumonia. She is also being bridged with Lovenox for her history of hypercoagulability due to subtherapeutic INR. Yesterday, she started to develop severe abdominal pain located in the RLQ. She had a CT abdomen and pelvis done without contrast which showed a rectus sheath hematoma. She states this has happened previously when the patient was started on IV abx and lovenox. The previous episode resolved spontaneously without any intervention necessary. The states currently her pain has improved. She denies any other symptoms. Review of Systems Complete review of systems was performed and negative except as stated in history of present illness Vital Signs Vitals Signs (last 24 hrs) Last Charted Minimum Maximum Temp 98.8 (JAN 06 14:14) 97.9 (JAN 06 08:34) 98 (JAN 05 18:05) Apical HR 89 (JAN 06 08:34) 89 (JAN 06 08:34) 89 (JAN 06 08:34) Mon HR 80 (JAN 06 14:14) 65 (JAN 05 18:05) 93 (JAN 06 10:00) Resp Rate 18 (JAN 06 14:14) 18 (JAN 05 18:05) 20 (JAN 06 08:34) SBP 125 (JAN 06 14:14) 106 (JAN 05 22:37) 140 (JAN 06 08:34) DBP 76 (JAN 06 14:14) 60 (JAN 06 06:00) 81 (JAN 05 18:05) MAP 99 (JAN 06 14:14) 81 (JAN 05 22:37) 104 (JAN 06 08:34) SpO2 95 (JAN 06 13:57) 95 (JAN 06 13:57) 96 (JAN 06 06:00) Oxygen Settings (Last) Oxygen Therapy Mode: Nasal cannula, Other: humidified (01/06/19 13:57:00 EDT) Oxygen Flow Rate: 2.5 Liter/Min (01/06/19 13:57:00 EDT) Physical Exam General: Alert and oriented, obese, no acute distress Neurologic: Awake, alert, and oriented X3 Eye: EOMI, normal conjuctiva HENT: Normocephalic, normal hearing, moist oral mucosa, no scleral icterus, no sinus tenderness Neck: Supple, non-tender, no lymphadenopathy Lungs: Clear to auscultation, non-labored respiration Heart: Normal rate, regular rhythm, no murmur, gallop or edema Abdomen: Soft, non-distended, normal bowel sounds, no masses. TTP in RLQ. no palpable hematoma. Visible ecchymosis on abdomen from Lovenox. Musculoskeletal: Normal range of motion and strength, no tenderness or swelling, Skin: Skin is warm, dry and pink, no rashes or lesions Psychiatric: Cooperative, appropriate mood and affect Assessment/Plan Rectus sheath hematoma-- no contrast extravasation noted on contrast CT today - H/H currently stable, will continue to watch for signs of any further bleeding - If H/h drops, repeat CT abd and pelvis W contrast to assess for active bleeding and anything that could be angioembolized. - Pt inquired about possible port-a-cath placement as she has poor venous access. This does not seem an unreasonable suggestion, given her need for frequent labs. If determined to be necessary, consider placement in IR while off anticoagulants. Acute respiratory failure, unspecified whether with hypoxia or hypercapnia, Acute respiratory failure, unspecified whether with hypoxia or hypercapnia VTE Prophylaxis - Medical Sequential Compression Device Start: 01/04/19 23:08:00 EDT, Bilateral, Length: Knee High, While patient is in bed, Continuous Order (JEANETTE CABRAL) Provider Information Primary Care Physician - OSITO LARSEN (REF)[facility] Attending Physician - CARLOS LANDIN DO Admitting Physician - CARLOS LANDIN DO Consulting Physician - GARRISON BUSTILLOS MD - asthma, hypoxic resp failure Consulting Physician - MARTHA LAY MD (GI consult)- abd pain Consulting Physician - PABLO HUMPHRIES MD Referring Physician - CARLOS LANDIN DO Problem List/Past Medical History Ongoing No qualifying data Historical No qualifying data Medications Inpatient amLODIPine, 10 mg= 1 Tab, Oral, Daily cholecalciferol, 2000 Units= 2 Tab, Oral, Daily doxycycline, 100 mg= 1 Cap, Oral, BID formoterol-mometasone 5 mcg-200 mcg/inh inhalation aerosol, 2 Puff, Inhalation, RT_BID gabapentin, 900 mg= 3 Cap, Oral, TID glycopyrrolate, 15.6 mcg= 1 Each, Inhalation, RT_BID insulin lispro sliding scale, Scale D:, SubCutaneous, AC and at Bedtime Lantus, 20 Units= 0.2 mL, SubCutaneous, BID Lasix, 20 mg= 1 Tab, Oral, Daily levothyroxine, 50 mcg= 1 Tab, Oral, Daily methaDONE, 10 mg= 1 Tab, Oral, QID Metoprolol Succinate ER, 25 mg= 1 Tab, Oral, Daily MiraLax, 17 Gram= 1 Packet, Oral, Daily, PRN morphine, 2 mg= 1 mL, IV Push, Q2H, PRN Nitrostat, 0.4 mg= 1 Tab, SubLINgual, Q5Min, PRN Os-Zachary 500 + D, 1 Tab, Oral, Daily oxyCODONE, 5 mg= 1 Tab, Oral, Q4H, PRN pantoprazole, 40 mg= 1 Tab, Oral, Daily Phenergan, 6.25 mg= 0.25 mL, IntraVENous, Q6H, PRN predniSONE, 40 mg= 2 Tab, Oral, Daily ProAir HFA, 1 Puff, Inhalation, QID, PRN PROzac, 20 mg= 1 Cap, Oral, Daily Robitussin, 400 mg= 2 Tab, Oral, TID Tessalon, 200 mg= 2 Cap, Oral, TID, PRN Tussionex PennKinetic, 5 mL, Oral, Q12H Tylenol, 650 mg= 2 Tab, Oral, Q4H, PRN Zofran, 4 mg= 2 mL, IV Push, Q4H, PRN Zofran, 8 mg= 2 Tab, Oral, Q8H, PRN Zosyn + Sodium Chloride 0.9% intravenous solution 100 mL Home Advair Diskus 250 mcg-50 mcg inhalation powder, 1 Puff, Inhalation, BID amLODIPine 10 mg oral tablet, 10 mg= 1 Tab, Oral, Daily azithromycin 500 mg intravenous injection, IntraVENous, [id number] aztreonam 1 g injection, IntraVENous, Q12H calcium-vitamin D 500 mg-200 intl units oral tablet, 1 Tab, Oral, Daily Coumadin 5 mg oral tablet, Oral, Daily cyanocobalamin 100 mcg/mL injectable solution, 100 mcg= 1 mL, IntraMuscular, qMonth Diflucan 150 mg oral tablet, 150 mg= 1 Tab, Oral, Daily gabapentin 300 mg oral capsule, 900 mg= 3 Cap, Oral, TID gabapentin 800 mg oral tablet, 800 mg= 1 Tab, Oral, TID Lasix 20 mg oral tablet, 20 mg= 1 Tab, Oral, Daily levothyroxine 50 mcg (0.05 mg) oral tablet, 50 mcg= 1 Tab, Oral, Daily Lovenox 100 mg/mL injectable solution, 100 mg= 1 mL, SubCutaneous, BID methadone 10 mg oral tablet, 20 mg= 2 Tab, Oral, QID Metoprolol Succinate ER 25 mg oral tablet, extended release, 25 mg= 1 Tab, Oral, Daily Nitrostat 0.4 mg sublingual tablet, 0.4 mg= 1 Tab, SubLINgual, Q5Min, PRN pantoprazole 40 mg oral delayed release tablet, 40 mg= 1 Tab, Oral, Daily predniSONE 5 mg oral tablet, 5 mg= 1 Tab, Oral, Daily ProAir HFA 90 mcg/inh inhalation aerosol, 1 Puff, Inhalation, QID, PRN PROzac 20 mg oral capsule, 20 mg= 1 Cap, Oral, Daily rOPINIRole 0.5 mg oral tablet, 0.5 mg= 1 Tab, Oral, At Bedtime Spiriva 18 mcg inhalation capsule, 1 Cap, Inhalation, Daily Vitamin D3 2000 intl units oral capsule, 2000 Int Units= 1 Cap, Oral, Daily Zofran 8 mg oral tablet, 8 mg= 1 Tab, Oral, Q8H, PRN Allergies Levaquin NSAIDs Nubain albuterol sulfADIAZINE Social History Patient lives at home. Nonsmoker No drugs or alcohol use Family History Family history of lung cancer and heart disease Immunizations Vitals Signs (last 24 hrs) Last Charted Minimum Maximum Temp 98.8 (JAN 06 14:14) 97.9 (JAN 06 08:34) 98 (JAN 05 18:05) Resp Rate 18 (JAN 06 14:14) 18 (JAN 05 18:05) 20 (JAN 06 08:34) SBP 125 (JAN 06 14:14) 106 (JAN 05 22:37) 140 (JAN 06 08:34) DBP 76 (JAN 06 14:14) 60 (JAN 06 06:00) 81 (JAN 05 18:05) SpO2 95 (JAN 06 13:57) 95 (JAN 06 13:57) 96 (JAN 06 06:00) Routine(Daily) Weight 99.09 (JAN 06 03:00) 99.09 (JAN 06 03:00) 99.09 (JAN 06 03:00) CBC Results (Current Encounter/Past 24 Hours) WBC 18.6 K/uL [place] 01/06/2019 07:41 Hct 28.8 % LOW 01/06/2019 07:41 Hgb 8.6 g/dL LOW 01/06/2019 07:41 Platelet Count 452 K/uL [place] 01/06/2019 07:41 CMP Results (Current Encounter/Past 24 Hours) Bun/Creatinine 18.0 01/06/2019 07:55 Creatinine Level 1.00 mg/dL 01/06/2019 07:55 eGFR NonAfrican 56 mL/min/1.73m2 [facility] 01/06/2019 07:55 eGFR >60 mL/min/1.73m2 01/06/2019 07:55 Globulin 3.5 Gram/dL 01/05/2019 04:17 A/G Ratio 0.8 LOW 01/05/2019 04:17 Protein Total 6.4 Gram/dL 01/05/2019 04:17 Sodium Level 138 mmol/L 01/06/2019 07:55 Potassium Level 3.8 mmol/L 01/06/2019 07:55 Chloride Level 95 mmol/L LOW 01/06/2019 07:55 Carbon Dioxide Level 35 mmol/L [place] 01/06/2019 07:55 Anion Gap 01/06/2019 07:55 Alk Phos 83 Units/Liter 01/05/2019 04:17 ALT 14 Units/Liter 01/05/2019 04:17 AST 11 Units/Liter 01/05/2019 04:17 Blood Urea Nitrogen 18 mg/dL 01/06/2019 07:55 Glucose Level 292 mg/dL [place] 01/06/2019 07:55 Albumin Level 2.9 Gram/dL LOW 01/05/2019 04:17 Bilirubin Total 0.2 mg/dL 01/05/2019 04:17 Calcium Level 9.0 mg/dL 01/06/2019 07:55 Magnesium Level 2.1 mg/dL 01/06/2019 07:55 Diagnostic Results Radiology Results (Last 48 hours) [id number] -- 01/04/2019 21:58 CR Chest 1 Vw Portable (01/04/2019 23:22) Result: STUDY: AP ChestCLINICAL HISTORY: Shortness of air.COMPARISON: 09/23/2015FINDINGS: There is diffuse interstitial prominence consistent withchronic lung disease. There is no infiltrate, suspicious mass oreffusion. The heart is enlarged. Aortic knob is calcified. A looprecorder is present.IMPRESSION: Chronic changes but no acute disease CT Abdomen Pelvis W (01/05/2019 12:26) Result: CT OF THE CHEST, ABDOMEN AND PELVIS WITH CONTRASTINDICATION: Pneumonia, abdominal pain. COMPARISON: 09/23/2015.TECHNIQUE: Following the administration of intravenous contrasthelically acquired axial CT images were obtained from the apices throughthe upper abdomen. Dose reduction techniques were employed.FINDINGS:The central airways are patent.There are patchy areas of groundglass type airspace opacity bilaterallymost prominent at the apices.There is no mediastinal adenopathy.The heart and pericardium are unremarkable.The liver, adrenal glands, kidneys, and pancreas are unremarkable. Thespleen is absent.There is an IVC filter in place. Several of the legs protrude beyond thelumen of the IVC into the retroperitoneum.The visualized portions of bowel are unremarkable.There is a large hematoma in the inferior portion of the right rectussheath extending into the extraperitoneal space of the right pelvis. Thehematoma measures at least 10 x 5 x 9 cm. The extraperitoneal portionmeasures greater than 7 x 4 x 4 cm.There is no free intraperitoneal fluid.IMPRESSION:1. Multifocal groundglass airspace opacity most consistent withpneumonia.2. Rectus sheath and right pelvic hematomas as above. CT Chest W (01/05/2019 12:26) Result: CT OF THE CHEST, ABDOMEN AND PELVIS WITH CONTRASTINDICATION: Pneumonia, abdominal pain. COMPARISON: 09/23/2015.TECHNIQUE: Following the administration of intravenous contrasthelically acquired axial CT images were obtained from the apices throughthe upper abdomen. Dose reduction techniques were employed.FINDINGS:The central airways are patent.There are patchy areas of groundglass type airspace opacity bilaterallymost prominent at the apices.There is no mediastinal adenopathy.The heart and pericardium are unremarkable.The liver, adrenal glands, kidneys, and pancreas are unremarkable. Thespleen is absent.There is an IVC filter in place. Several of the legs protrude beyond thelumen of the IVC into the retroperitoneum.The visualized portions of bowel are unremarkable.There is a large hematoma in the inferior portion of the right rectussheath extending into the extraperitoneal space of the right pelvis. Thehematoma measures at least 10 x 5 x 9 cm. The extraperitoneal portionmeasures greater than 7 x 4 x 4 cm.There is no free intraperitoneal fluid.IMPRESSION:1. Multifocal groundglass airspace opacity most consistent withpneumonia.2. Rectus sheath and right pelvic hematomas as above. documented in this encounter Plan of Treatment Not on file documented as of this encounter Visit Diagnoses Not on filedocumented in this encounter
--- OUTSIDE RECORDS SUMMARY | 2025-08-05 07:28 | XMS_ITS | Encounter Summary ---
Author Organization [employer] ([place], [place], [place], [place]) Address [address] [place] [address] Care Team Providers Care Sweat Band Sewer Name Role Phone Unavailable Primary Care Provider Unavailabl e Encounter Details Date Type Department Care Team (Late st Contact Info) Description 01/06/2019 Transcribed Document [facility] [place] [address] [place] [address] ProviderKentrell MD [address] [place] [address] Social History Tobacco Use Types Packs/Day Years Used Date Smoking Tobacco: Never Assessed Comments Unknown Sex and Gender Information Value Date Recorded Sex Assigned at Not on file Legal Sex Female 5:31 PM CDT Gender Identity Not on file Sexual Orientation Not on file documented as of this encounter Miscellaneous Notes * Cerner Conversion Note - Kentrell ProviderMD - 01/06/2019 11:35 AM CDT Attempt to Treat, PT Entered On: 01/06/2019 11:40 EDT Performed On: 01/06/2019 11:35 EDT by SEUN RAIN PT Attempt to Treat Unable to Treat Due To : Patient Refusal Inability to Treat Comment : pt refused, had just gotten lunch tray will follow as schedule allows Notification : RN/PTx/OTx SEUN RAIN PT - 01/06/2019 11:40 EDT documented in this encounter Plan of Treatment Not on file documented as of this encounter Visit Diagnoses Not on filedocumented in this encounter
--- OUTSIDE RECORDS SUMMARY | 2025-08-05 07:28 | XMS_ITS | Encounter Summary ---
Author Organization [employer] ([place], [place], [place], [place]) Address [address] [place] [address] Care Team Providers Care Senior Bi Architect Name Role Phone Unavailable Primary Care Provider Unavailabl e Encounter Details Date Type Department Care Team (Late st Contact Info) Description 01/06/2019 Transcribed Document [facility] [place] [address] [place] [address] ProviderKentrell MD [address], [place] [id number] Social History Tobacco Use Types Packs/Day Years Used Date Smoking Tobacco: Never Assessed Comments Unknown Sex and Gender Information Value Date Recorded Sex Assigned at Not on file Legal Sex Female 5:31 PM CDT Gender Identity Not on file Sexual Orientation Not on file documented as of this encounter Miscellaneous Notes * Cerner Conversion Note - Kentrell Lorenzo MD - 01/06/2019 9:00 AM CDT Pain Assessment Entered On: 01/06/2019 9:43 EDT Performed On: 01/06/2019 9:34 EDT by Lyn Marcus RN Intervention Information: methadone Performed by Lyn Marcus RN on 01/06/2019 08:34:00 EDT methadone,10mg Oral Pain Assessment Pain Assessment : Follow-up assessment Pain Scale Used : 0-10 Scale Lyn Marcus RN - 01/06/2019 9:43 EDT Pain Scale Intensity : 5 Lyn Marcus RN - 01/06/2019 9:43 EDT Image 4 - Images currently included in the form version of this document have not been included in the text rendition version of the form. documented in this encounter Plan of Treatment Not on file documented as of this encounter Visit Diagnoses Not on filedocumented in this encounter
--- OUTSIDE RECORDS SUMMARY | 2025-08-05 07:28 | XMS_ITS | Encounter Summary ---
Author Organization [employer] ([place], [place], [place], [place]) Address [address] [place] [address] Care Team Providers Care Lacrosse Coach Name Role Phone Unavailable Primary Care Provider Unavailabl e Encounter Details Date Type Department Care Team (Late st Contact Info) Description 01/06/2019 Transcribed Document [facility] [place] Family [place] [address] [place] [address] ProviderKentrell MD [address] [place] [address] Social History Tobacco Use Types Packs/Day Years Used Date Smoking Tobacco: Never Assessed Comments Unknown Sex and Gender Information Value Date Recorded Sex Assigned at Not on file Legal Sex Female 5:31 PM CDT Gender Identity Not on file Sexual Orientation Not on file documented as of this encounter Miscellaneous Notes * [employer]al Conversion Note - Kentrell ProviderMD - 01/06/2019 5:00 AM CDT Chart Check - Review Order Profile Entered On: 01/06/2019 5:20 EDT Performed On: 01/06/2019 5:00 EDT by Armand Cristobal Rn Chart Check All Active Orders Reviewed : Yes Armand Cristobal Rn - 01/06/2019 5:20 EDT documented in this encounter Plan of Treatment Not on file documented as of this encounter Visit Diagnoses Not on filedocumented in this encounter
--- OUTSIDE RECORDS SUMMARY | 2025-08-05 07:28 | XMS_ITS | Encounter Summary ---
Author Organization [employer] ([place], [place], [place], [place]) Address [address] [place] [address] Care Team Providers Care Keller Machine Operator Name Role Phone Unavailable Primary Care Provider Unavailabl e Encounter Details Date Type Department Care Team (Late st Contact Info) Description 01/06/2019 Transcribed Document [facility] [place] [address] [place] [address] ProviderKentrell MD [address] [place], [place] [address] Social History Tobacco Use Types Packs/Day Years Used Date Smoking Tobacco: Never Assessed Comments Unknown Sex and Gender Information Value Date Recorded Sex Assigned at Not on file Legal Sex Female 5:31 PM CDT Gender Identity Not on file Sexual Orientation Not on file documented as of this encounter Miscellaneous Notes * Cerner Conversion Note - Kentrell Lorenzo MD - 01/06/2019 9:00 PM CDT Pain Assessment Entered On: 01/07/2019 4:59 EDT Performed On: 01/06/2019 21:52 EDT by Armand Cristobal Rn Intervention Information: methadone Performed by Armand Cristobal Rn on 01/06/2019 20:52:00 EDT methadone,10mg Oral Pain Assessment Pain Assessment [...] the text rendition version of the form. Electronically signed by Charlotte Sprague Conversion Central Office Operator Supervisor Cerner at 01/29/2023 9:13 AM CDT documented in this encounter Plan of Treatment Not on file documented as of this encounter Visit Diagnoses Not on filedocumented in this encounter
--- OUTSIDE RECORDS SUMMARY | 2025-08-05 07:28 | XMS_ITS | Encounter Summary ---
Author Organization [employer] ([place], [place], [place], [place]) Address [address] [place] [address] Care Team Providers Care Mental Health Therapist Name Role Phone Unavailable Primary Care Provider Unavailabl e Encounter Details Date Type Department Care Team (Late st Contact Info) Description 01/06/2019 Transcribed Document [facility] [place] [address] [place] [address] ProviderKentrell MD [address], [place] [id number] Social History Tobacco Use Types Packs/Day Years Used Date Smoking Tobacco: Never Assessed Comments Unknown Sex and Gender Information Value Date Recorded Sex Assigned at Not on file Legal Sex Female 5:31 PM CDT Gender Identity Not on file Sexual Orientation Not on file documented as of this encounter Miscellaneous Notes * Cerner Conversion Note - Kentrell Lorenzo MD - 01/06/2019 5:00 PM CDT Pain Assessment Entered On: 01/07/2019 9:58 EDT Performed On: 01/06/2019 18:05 EDT by Lyn Marcus RN Intervention Information: methadone Performed by Lyn Marcus RN on 01/06/2019 17:05:00 EDT methadone,10mg Oral Pain Assessment Pain Assessment : Follow-up assessment Pain Scale Goal : 3 Pain Scale Used : FACES Lyn Marcus RN - 01/07/2019 9:58 EDT Pain Scale Intensity : 4 Lyn Marcus RN - 01/07/2019 9:58 EDT Image 4 - Images currently included in the form version of this document have not been included in the text rendition version of the form. documented in this encounter Plan of Treatment Not on file documented as of this encounter Visit Diagnoses Not on filedocumented in this encounter
--- OUTSIDE RECORDS SUMMARY | 2025-08-05 07:28 | XMS_ITS | Data Portability ---
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 available 06/20/2022 6809 RxNorm Not Available [facility] 2 22:56:13 48537 Prevnar 13 medicatio n Not available Not available Not available 06/20/2022 53353 1 RxNorm Not Available [facility] 2 22:56:14 10478 Phenergan medicatio n Not available Not available Not available 07/15/2022 41709 8 RxNorm JANETTE DUNBAR null, [employer] 2 10:30:51 85618 Nubain medicatio n Not available Not available Not available 07/15/2022 7550 RxNorm JANETTE MYNEAR null, [employer] 2 10:30:58 Medications Name Sig Start Date Stop Date Status Note LastModified by Organization Details LastModified Time quetiapine 25 mg tablet TAKE ONE TABLET BY MOUTH AT BEDTIME 07/15 completed Not Available Not Available Not Available fluoxetine 40 mg capsule Take 1 capsule every day by oral route. 07/15 completed Not Available Not Available Not Available furosemide 40 mg tablet take 1 tablet (40 mg) by oral route once daily 06/11 completed Not Available Not Available Not Available metolazone 2.5 mg tablet TAKE 1 TABLET BY MOUTH every sunday active Not Available Not Available No t Available fluconazole 100 mg tablet 06/24 completed Not Available Not Available Not Available atorvastati n 40 mg tablet TAKE 1 TABLET BY MOUTH DAILY active Not Available Not Available No t Available metformin 500 mg tablet TAKE 1 TABLET BID with food by mouth 03/12 completed Not Available Not Available Not Available hydralazine 10 mg tablet take 1 tablet (10 mg) by oral route 2 times per day with food 12/18 completed Not Available Not Available Not Available atorvastati n 80 mg tablet TAKE ONE TABLET BY MOUTH AT BEDTIME active Not Available Not Available No t Available nystatin 100,000 unit/mL oral suspension take 4 millilite rs (400,000 unit) by oral route 4 times per day 02/15 completed Not Available Not Available Not Available prednisone 10 mg tablet take 6 tablets on day one by mouth, five tabs on day 2, four tabs on day 3, three tabs on day 4, two tabs on day 5 and one tab on day 6. 08/31 completed Not Available Not Available Not Available ropinirole 1 mg tablet take 1 po at bedtime 09/17 completed Not Available Not Available Not Available venlafaxine 75 mg tablet take 1 tablet (75 mg) by oral route 2 times per day with food 07/05 completed Not Available Not Available Not Available Norvasc 10 mg tablet one po q day 03/30 completed Not Available Not Available Not Available albuterol sulfate 2.5 mg/3 mL (0.083 %) solution for nebulizatio n 1 vial(s) by nebulizer qid as directed 2018 active Not Available Not Available Not Avai lable azithromyci n 250 mg tablet TAKE 2 TABLETS BY MOUTH ON DAY 1, THEN TAKE 1 TABLET DAILY ON DAYS 2-5 12/18 completed Not Available Not Available Not Available ofloxacin 0.3 % eye drops Administe r 1 drop into the right eye 3 (three) times a day. 07/15 completed Not Available Not Available Not Available fluconazole 150 mg tablet TAKE ONE TABLET BY MOUTH EVERY DAY FOR 3 DAYS 12/22 completed Not Available Not Available Not Available levetiracet am 500 mg tablet take 1 tablet (500 mg) by oral route 2 times per day 11/12 completed Not Available Not Available Not Available valacyclovi r 1 gram tablet TAKE 1 TABLET BY MOUTH 3 TIMES DAILY FOR 7 DAYS active Not Available Not Available No t Available methadone 10 mg tablet TAKE 1 TABLET FIVE TIMES EACH DAY 1 TIME EACH DAY FOR CHRONIC PAIN active Not Available Not Available No t Available fluconazole 200 mg tablet Take 1 tablet every day by oral route for 3 days. 06/24 completed Not Available Not Available Not Available sucralfate 1 gram tablet TAKE ONE TABLET FOUR TIMES DAILY BY MOUTH FOR 14 DAYS 01/28 completed Not Available Not Available Not Available prednisone 20 mg tablet Take 2 tablets every day by oral route for 5 days. 05/08 completed Not Available Not Available Not Available gabapentin 400 mg capsule 01/30 completed Not Available Not Available Not Available prednisone 5 mg tablet Take 1 tablet daily by mouth 07/05 completed Not Available Not Available Not Available verapamil ER (SR) 180 mg tablet,exte nded release take 1 tablet (180 mg) by oral route once daily with food 01/03 completed Not Available Not Available Not Available Lantus U-100 Insulin 100 unit/mL subcutaneou s solution INJECT 45 UNITS SUBCUTANE OUSLY NIGHTLY AT BEDTIME 07/06 completed Not Available Not Available Not Available amlodipine 2.5 mg tablet active Not Available Not Available Not Available clopidogrel 75 mg tablet TAKE ONE TABLET BY MOUTH DAILY active Not Available Not Available No t Available valacyclovi r 500 mg tablet take 2 tablet (500 mg) by oral route every 8 hours 01/03 completed Not Available Not Available Not Available aspirin 81 mg tablet,darcie yed release Take 1 tablet(s) by mouth daily 2021 active Not Available Not Available Not Avai lable spironolact one 25 mg tablet TAKE 1 TABLET BY MOUTH EVERY DAY active Not Available Not Available No t Available carvedilol 3.125 mg tablet take 1 tablet (3.125 mg) by oral route 2 times per day with food 07/05 completed Not Available Not Available Not Available ondansetron 8 mg disintegrat ing tablet DISSOLVE 1 TABLET ON THE TONGUE AND THEN SWALLOW EVERY 8 HOURS NEEDED FOR NAUSEA AND VOMITING (gastropo resis) active Not Available Not Available No t Available bisoprolol fumarate 10 mg tablet take 1 tablet (10 mg) by oral route once daily 03/30 completed Not Available Not Available Not Available ketorolac 10 mg tablet take 1 tablet by mouth every 6 hours as needed for pain for 3 days active Not Available Not Available No t Available levothyroxi ne 75 mcg tablet TAKE ONE TABLET BY MOUTH EVERY MORNING for thyroid 07/06 completed Not Available Not Available Not Available bisoprolol fumarate 5 mg tablet take one-half tablet (2.5 mg) by oral route once daily active Not Available Not Available No t Available Zofran 8 mg tablet Take 1 tablet(s) by mouth q 12 hours prn N/V 11/12 completed Not Available Not Available Not Available potassium chloride ER 20 mEq tablet,exte nded release(par t/cryst) active Not Available Not Available Not Available prednisolon e acetate 1 % eye drops,suspe nsion Administe r 1 drop into the left eye 4 (four) times a day. 10/31 completed Not Available Not Available Not Available Silvadene 1 % topical cream APPLY A 1/16 INCH (1.5 MM) THICK LAYER TO ENTIRE BURN AREA BY TOPICAL ROUTE 2 TIMES PER DAY active Not Available Not Available No t Available gabapentin 800 mg tablet TAKE ONE TABLET BY MOUTH FOUR TIMES DAILY active Not Available Not Available No t Available meclizine 25 mg tablet TAKE ONE TABLET BY MOUTH THREE TIMES DAILY NEEDED for dizziness 12/22 completed Not Available Not Available Not Available doxycycline monohydrate 100 mg capsule Take 1 capsule twice a day by oral route with meal(s) for 10 days, for pneumonia . 06/24 completed Not Available Not Available Not Available levothyroxi ne 50 mcg tablet TAKE ONE TABLET BY MOUTH DAILY ON EMPTY stomach 07/06 completed Not Available Not Available Not Available Lasix 20 mg tablet prn 08/06 completed Not Available Not Available Not Available prednisone 2.5 mg tablet take 1 tablet (2.5 mg) by oral route once daily 07/13 completed Not Available Not Available Not Available pantoprazol e 40 mg tablet,darcie yed release TAKE ONE TABLET BY MOUTH TWICE DAILY active Not Available Not Available No t Available Cipro 500 mg tablet take 1 tablet (500 mg) by oral route 2 times per day for 10 days 05/18 completed Not Available Not Available Not Available lidocaine 5 % topical patch active Not Available Not Available Not Available nitroglycer in 0.4 mg sublingual tablet DISSOLVE 1 TABLET UNDER THE TONGUE EVERY 5 MINUTES NEEDED FOR CHEST PAIN. DO NOT EXCEED A TOTAL OF 3 DOSES IN 15 MINUTES. active Not Available Not Available No t Available bumetanide 1 mg tablet TAKE ONE TABLET BY MOUTH EVERY DAY NEEDED for edema active Not Available Not Available No t Available Coumadin 5 mg tablet 04/29 completed Not Available Not Available Not Available Halcion 0.25 mg tablet take 1 tablet (0.25 mg) by oral route 1 hour prior to MRI, may take a second tablet at time of MRI if needed. 08/06 completed Not Available Not Available Not Available levofloxaci n 500 mg tablet 07/15 completed Not Available Not Available Not Available levofloxaci n 750 mg tablet take 1 tablet by mouth every 48 hours active Not Available Not Available No t Available albuterol sulfate HFA 90 mcg/actuati on aerosol inhaler Inhale 2 puffs every 4 hours by inhalatio n route. active Not Available Not Available No t Available Vitamin D2 1,250 mcg (50,000 unit) capsule TAKE ONE CAPSULE BY MOUTH ONCE WEEKLY active Not Available Not Available No t Available cefdinir 300 mg capsule take 1 capsule (300 mg) by oral route every 12 hours 03/12 completed Not Available Not Available Not Available fluoxetine 20 mg capsule TAKE ONE CAPSULE BY MOUTH DAILY 07/15 completed Not Available Not Available Not Available fluticasone propionate 50 mcg/actuati on nasal spray,suspe nsion instill 1 spray into each nostril twice daily active Not Available Not Available No t Available metformin ER 500 mg tablet,exte nded release 24 hr 1 pill PO daily. 06/16 completed Not Available Not Available Not Available cholecalcif meme (vitamin D3) 125 mcg (5,000 unit) capsule one qd 03/12 completed Not Available Not Available Not Available glipizide 5 mg tablet take 1 tablet (5 mg) by oral route once daily before a meal 02/12 completed Not Available Not Available Not Available prazosin 2 mg capsule take 1 capsule (2 mg) by oral route q HS 12/13 completed Not Available Not Available Not Available Artificial Tears (polyvinyl alcohol) 1.4 % eye drops Use 2 gtts in right eye every 2 hours while awake 04/07 completed Not Available Not Available Not Available Vitamin B-12 1,000 mcg tablet 1 tablet daily 02/15 completed Not Available Not Available Not Available insulin lispro (U-100) 100 unit/mL subcutaneou s pen INJECT 10 UNITS THREE TIMES DAILY SUBCUTANE OUSLY WITH A MEAL active Not Available Not Available No t Available escitalopra m 20 mg tablet TAKE ONE TABLET BY MOUTH EVERY DAY active Not Available Not Available No t Available Novolog FlexPen U-100 Insulin aspart 100 unit/mL (3 mL) subcutaneou s active Not Available Not Available Not Available cyclobenzap rine 5 mg tablet take 1 tablet (5 mg) by oral route 3 times per day prn 04/25/ 2022 09/21 /2022 completed Not Available Not Available Not Available bupropion HCl XL 300 mg 24 hr tablet, extended release TAKE ONE TABLET BY MOUTH EVERY DAY FOR 90 DAYS FOR mood active Not Available Not Available No t Available bupropion HCl XL 150 mg 24 hr tablet, extended release 07/06 completed Not Available Not Available Not Available metoprolol tartrate 25 mg tablet Take 1/2 tablet daily 09/17 completed Not Available Not Available Not Available Spiriva with HandiHaler 18 mcg and inhalation capsules inhale contents of ONE capsule EVERY DAY using handihale r 07/15 completed Not Available Not Available Not Available [facility]SC Levothyroxi ne Sodium Take 1 capsule(s ) by mouth daily before breakfast . 07/05 completed Not Available Not Available Not Available Levemir FlexPen 100 unit/mL (3 mL) solution subcutaneou s insulin pen 07/06 completed Not Available Not Available Not Available Symbicort 160 mcg-4.5 mcg/actuati on HFA aerosol inhaler Inhale 2 puffs twice a day by inhalatio n route. 10/30 completed Not Available Not Available Not Available cholecalcif meme (vitamin D3) 1,250 mcg (50,000 unit) capsule TAKE ONE CAPSULE BY MOUTH EVERY WEEK 01/30 completed Not Available Not Available Not Available FeroSul 325 mg (65 mg iron) tablet take 1 tablet (325 mg) by oral route 2 times per day for 3 months 08/01 completed Not Available Not Available Not Available Lantus Solostar U-100 Insulin 100 unit/mL (3 mL) subcutaneou s pen Inject 45 units every day by subcutane ous route at bedtime, for diabetes. 2023 active Not Available Not Available Not Avai lable Protonix 40 mg granules delayed-rel ease packet one tablet po q day 07/17 completed Not Available Not Available Not Available prasugrel HCl 10 mg tablet take 1 tablet (10 mg) by oral route once daily 01/03 completed Not Available Not Available Not Available BD Ultra-Fine Carmen Pen Needle 32 gauge x 532 Use as directeD FOUR TIMES DAILY active Not Available Not Available No t Available Dulera 100 mcg-5 mcg/actuati on HFA aerosol inhaler inhale 2 puffs by mouth twice a day active Not Available Not Available No t Available Pen Needle 30 gauge x 5/16 Use to inject insulin as directed 10/30 completed Not Available Not Available Not Available Combivent Respimat 20 mcg-100 mcg/actuati on solution for inhalation inhale 1 puff by inhalatio n route 4 times per day ; may take additiona l puffs as needed not to exceed 6 puffs in 24hrs 12/25 completed Not Available Not Available Not Available TRUEplus Insulin 1 mL 31 gauge x 5/16 syringe USE as directed daily active Not Available Not Available No t Available Victoza 2-Eris 0.6 mg/0.1 mL (18 mg/3 mL) subcutaneou s pen injector Inject 0.6 mg every day by subcutane ous route. 10/30 completed Not Available Not Available Not Available Jardiance 25 mg tablet TAKE ONE TABLET BY MOUTH DAILY IN THE MORNING active Not Available Not Available No t Available empaglifloz in 10 mg tablet take 1 tablet (10 mg) by oral route once daily in the morning 03/30 completed Not Available Not Available Not Available Spiriva Respimat 2.5 mcg/actuati on solution for inhalation inhale 2 puffs (5 mcg) by inhalatio n route once daily at the same time each day 07/15 completed Not Available Not Available Not Available Stiolto Respimat 2.5 mcg-2.5 mcg/actuati on solution for inhalation 08/01 completed Not Available Not Available Not Available Entresto 24 mg-26 mg tablet Take 1 tablet twice a day by oral route. 2024 active Not Available Not Available Not Avai lable Narcan 4 mg/actuatio n nasal spray Administe r 1 spray (4 mg total) into affected nostril(s ) if needed for opioid reversal. Call 911. Give 4 mg (1 spray) into one nostril. Repeat every 2-3 minutes as needed, alternati ng nostrils, until medical assistanc e arrives. active Not Available Not Available No t Available Bevespi Aerosphere 9 mcg-4.8 mcg HFA aerosol inhaler inhale 2 puffs by inhalatio n route 2 times per day in the morning and evening 07/15 completed Not Available Not Available Not Available TechLITE Pen Needle 31 gauge x 3/16 USE TO INJECT INSULIN 4 TIMES EACH DAY active Not Available Not Available No t Available Trelegy Ellipta 100 mcg-62.5 mcg-25 mcg powder for inhalation Inhale 1 puff every day by inhalatio n route. 09/23 completed Not Available Not Available Not Available Ozempic 0.25 mg or 0.5 mg (2 mg/1.5 mL) subcutaneou s pen injector Inject 0.25 mg every week by subcutane ous route. 01/31 completed Not Available Not Available Not Available Dexcom G6 [employer] Operator 10/28 completed Not Available Not Available Not Available Lotemax SM 0.38 % eye gel drops Apply 1 drop to affected eye(s) 4 (four) times a day. 10/31 completed Not Available Not Available Not Available Ozempic 0.25 mg or 0.5 mg (2 mg/3 mL) subcutaneou s pen injector Inject 0.25 mg every week by subcutane ous route, for Diabetes. 07/06 completed Not Available Not Available Not Available Vitals Date Recorded Body height Body mass index (BMI) Body weight Body temperature Heart rate Oxygen saturation Oxygen saturation in Arterial blood by Pulse oximetry Inhaled oxygen flow rate Systolic And Diastolic Provider Name and Address Organization Details Last Updated DateTime 5 152.4 cm 42.8 kg/m2 51472.7 3 g 98.1 [degF] 97 /min 89 % 89 % 3 L/min 128/66 mm[Hg] JANETTE DUNBRA [facility] [employer] 10:39:34 Date Recorded Body height Body mass index (BMI) Body weight Body temperature Heart rate Oxygen saturation Oxygen saturation in Arterial blood by Pulse oximetry Inhaled oxygen flow rate Systolic And Diastolic Provider Name and Address Organization Details Last Updated DateTime 5 152.4 cm 43.4 kg/m2 626998. 22 g 98 [degF] 99 /min 90 % 90 % 3 L/min 139/83 mm[Hg] JANETTE [employer] [facility] 5 10:40:21 Date Recorded Body mass index (BMI) Body weight Body temperature Heart rate Oxygen saturation Oxygen saturation in Arterial blood by Pulse oximetry Inhaled oxygen flow rate Systolic And Diastolic Provider Name and Address Organization Details Last Updated DateTime 5 41.3 kg/m2 50645.1 5 g 98.6 [degF] 113 /min 89 % 89 % 2 L/min 102/62 mm[Hg] JANETTE [employer] [facility] 5 11:11:33 Date Recorded Body height Provider Name an d Address Organization Details Last Updated DateTime 07/06/2025 152.4 cm Bianca Oliveira [employer] 07/06/2025 10:53:29 Date Recorded Body height Body mass index (BMI) Body weight Body temperature Heart rate Oxygen saturation Oxygen saturation in Arterial blood by Pulse oximetry Inhaled oxygen flow rate Heart rate Oxygen saturation Oxygen saturation in Arterial blood by Pulse oximetry Systolic And Diastolic Systolic And Diastolic Provider Name and Address Organization Details Last Updated DateTime 4 152.4 cm 42.7 kg/m2 78126.0 1 g 98.1 [degF] 90 /min 90 % 90 % 2 L/min 86 /min 91 % 91 % 86/45 mm[Hg] 96/64 mm[Hg] [employer] 4 11:43:59 Date Recorded Body height Body mass index (BMI) Body weight Body temperature Heart rate Oxygen saturation Oxygen saturation in Arterial blood by Pulse oximetry Inhaled oxygen flow rate Systolic And Diastolic Provider Name and Address Organization Details Last Updated DateTime 4 152.4 cm 41.8 kg/m2 60039.7 7 g 98 [degF] 110 /min 93 % 93 % 2 L/min 113/60 mm[Hg] JANETTE [employer] 4 13:43:57 Social History Question Answer Notes LastModified by Organizat ion Details LastModified Time Tobacco Smoking Status Never Smoker Rylee wise [facility] [employer] 05/08/2024 10:41:28 Do You Have An Advance Directive? No Information not available 07/15/2022 Is Your Home Air Conditioned? Yes Information not available 07/05/2022 If You Are , What Was Your Level Of Alcohol Consumption Prior To ? None Information not available 07/15/2022 How Many Years Have You Consumed Alcohol? 0 Information not available 07/15/2022 Are You Blind Or Do You Have Difficulty Seeing? Yes Information not available 07/15/2022 Are You A Caregiver? No Information not available 07/15/2022 Are You Deaf Or Do You Have Serious Difficulty Hearing? No Information not available 07/15/2022 What Type Of Diet Are You Following? DIABETIC Information not available 08/01/2023 Which Illicit Or Recreational Drugs Have You Used? None Information not available 05/08/2024 What Is The Highest Grade Or Level Of School You Have Completed Or The Highest Degree You Have Received? [id number] Information not available 07/15/2022 Who Is Your Employer? Retired Information not available 05/08/2024 How Many Days Of Moderate To Strenuous Exercise, Like A Brisk Walk, Did You Do In The Last 7 Days? 0 Information not available 07/15/2022 Have There Been Any Changes To Your Family Or Social Situation? No Information not available 07/15/2022 Are There Any Guns Present In Your Home? No Information not available 07/15/2022 Which Of Your Hands Is Dominant? Right Information not available 05/08/2024 What Is Your Home Situation? Other Information not available 05/08/2024 How Many Times In The Past Year Have You Used An Illegal Drug Or Used A Prescription Medication For Nonmedical Reasons? 0 Information not available 07/15/2022 How Many Years Have You Used Illicit Or Recreational Drugs? 0 Information not available 07/15/2022 [facility] 05/08/2024 Do You Have A Medical Power Of Medical Coding Manager? No Information not available 07/15/2022 What Was The Date Of Your Most Recent Tobacco Screening? 07/06/2025 [email or web address] Information not available 07/06/2025 What Is Your Current Pack Years? [email or web address] Information not available 05/08/2024 Have You Ever Been Counseled For Unhealthy Alcohol Use? No Information not available 07/15/2022 Do You Have Any Pets? No Information not available 07/15/2022 What Is Your Relationship Status? Information not available 07/05/2022 Have You Repeated Any Grades? No Information not available 07/15/2022 Do You Use Your Seat Belt Or Car Seat Routinely? Yes Information not available 07/15/2022 Are You Sexually Active? No Information not available 07/15/2022 Do You Have Any Siblings? 6 Living 3 Information not available 07/15/2022 Do You Have Smoke And Carbon Monoxide Detectors In Your Home? Yes Information not available 07/05/2022 Are You Passively Exposed To Smoke? Yes Information not available 07/05/2022 Are There Any Smokers In Your House? Yes Information not available 07/05/2022 How Much Tobacco Do You Smoke? No Information not available 05/08/2024 Do You Participate In Social Media? Yes Information not available 05/08/2024 What Types Of Sporting Activities Do You Participate In? None Information not available 05/08/2024 Do You Use Sunscreen Routinely? No Information not available 07/15/2022 Has Tobacco Cessation Counseling Been Provided? No Information not available 07/15/2022 How Many Years Have You Smoked Tobacco? 0 Information not available 07/15/2022 Have You Recently Traveled Abroad? No Information not available 07/15/2022 Have You Used IV Drugs? No Information not available 07/15/2022 Do You Have Difficulty Walking Or Climbing Stairs? Yes Information not available 07/15/2022 Are You Currently In School? No Information not available 07/05/2022 What Contraceptive Method Was Reported At Start Of This Visit? None Information not available 07/15/2022 Do You Have Any Dietary Restrictions? Yes Information not available 07/15/2022 How Many Days In The Past Year Have You Consumed 4 Or More Drinks? 0 Information not available 07/15/2022 How Many Days In The Past Year Have You Consumed 5 Or More Drinks? 0 Information not available 07/15/2022 What Is Your Reason For Having No Contraceptive Method At Start Of This Visit? Other Information not available 05/08/2024 Sex: Female Functional Status Question Answer Note LastModified by [employer] ion Details LastModified Time Do you or have you ever used smokeless tobacco? Never used smokeless tobacco Information not available 05/08/2024 Are you currently employed? No Information not available 07/05/2022 Do you have transportation difficulties? Yes Information not available 07/15/2022 Are you able to care for yourself independently? No Information not available 05/08/2024 Do you have difficulty dressing, bathing, grooming, or toileting? Yes Information not available 07/15/2022 Do you or have you ever used e-cigarettes or vape? Never used electronic cigarettes Information not available 05/08/2024 What is your exercise level? None Information not available 05/08/2024 Do you use any illicit or recreational drugs? No Prior: Opiates Information not available 07/05/2022 Do you or have you ever used any other forms of tobacco or nicotine? No Information not available 07/05/2022 What is your level of alcohol consumption? None Information not available 07/05/2022 Are you able to walk independently without assistance or assistive devices? YESASSIST Information not available 07/15/2022 Do you have difficulty doing errands alone? Yes Information not available 07/15/2022 What is your occupation? Retired Information not available 05/08/2024 Mental Status Question Answer Note LastModified by Organizat ion Details LastModified Time Do you feel stressed (tense, restless, nervous, or anxious, or unable to sleep at night)? [id number] Information not available 07/15/2022 Do you have difficulty concentrating, remembering or making decisions? Yes Information no t available 07/15/2022 Are you or have you been involved with bullying? No Information not available 07/15/2022 Family History Relationship Description Onset Age of this Age Resolved Age Notes LastModified by Organization Details LastModified Time Mother Family history of congestive heart failure [email or web address] Not available 12/13 10:51:47 Mother Hypertensive disorder [email or web address] Not available 2021 10:25:18 Mother Arthritis [email or web address] Not available 07/15/2022 10:25:18 Mother Diabetes mellitus [email or web address] Not available 2021 10:25:18 Mother Asthma [email or web address] Not available 10:25:18 Mother Heart disease [email or web address] Not available 2021 10:25:18 Mother Anxiety disorder 35 [email or web address] Not available 2021 10:25:18 Father Kidney disease smynear Not available 2021 10:25:18 Father Liver problem [email or web address] Not available 2021 10:25:18 Father Heart disease [email or web address] Not available 2021 10:25:18 Father Seizure [email or web address] Not available 1 10:25:18 Father Epilepsy smynear Not available 07/15/2022 10:25:18 Brother Malignant neoplasm of lung smynear Not available 2021 10:25:18 Brother Arthritis [email or web address] Not availabl e 07/15/2022 10:25:18 Brother Seizure smynear Not available 07/15/2022 10:25:18 Brother Depressive disorder smynear Not available 2021 10:25:18 Brother Harmful pattern of use of alcohol 20 smynear Not available 2021 10:25:18 Brother Heart disease smynear Not available 2021 10:25:18 Sister Depressive disorder smynear Not available 2021 10:25:18 Sister Harmful pattern of use of alcohol 20 smynear Not available 2021 10:25:18 Sister Malignant neoplasm of lung smynear Not available 2021 10:25:18 Medical History Condition Response Allergies (Food, seasonal, environmental ) Y Allergies/Hayfever Y Coronary Artery Disease Y Hospitalizations N Emergency room visit since last appointm ent. N Thyroid Problems Y Lung Disease Y COPD Y Depression Y GI Problems Y Hypothyroidism Y Developmental or Behavioral Disorders Y Diabetes Y Anxiety Disorder Y Obesity Y Bleeding Disorder Y Vision or Eye Problems Y Arthritis Y Congestive Heart Failure (CHF) Y Acid Reflux (GERD) Y Cancer Y Stroke Y Asthma Y Bladder or Kidney Problems Y Reflux/GERD Y Liver Disease Y Heart Disease Y Pulmonary Embolism Y Fibromyalgia Y Hypertension Y Osteoporosis Y Kidney Disease Y Gynecological History Statement/Question Response Abnormal Pap Y On BCP's at Conception? N STIs/STDs N Most Recent Mammogram 03/15/2019 Current Control Method N/A Age at Menarche 28 Age at First Child 21 If Post Menopausal, Age at Menopause 28 Menses Monthly N Date of Last Pap Smear Sexual Problems? N LMP Unknown Obstetrics History GPAL:G 0 P 0 0 0 0 Immunizations Vaccine Type Date Status Note Provider Nam e and Address Organization Details Recorded Time RSV, recombinant, protein subunit RSVpreF, adjuvant reconstituted, 0.5 mL, PF 4 completed Robina Downey APRN [address] [place], [address], [employer] 10/30/2023 17:56:03 Influenza, high-dose, quadrivalent, PF 4 completed Robina Downey APRN [address] [place], [address], [employer] 10/30/2023 17:56:03 Influenza, high-dose, trivalent, PF 4 completed Robina Downey APRN [address] [place], [address], [employer] 08/31/2024 18:56:45 pneumococcal polysaccharide PPV23 9 completed Not Available [facility] 06/21/2022 00:01:33 Influenza, split virus, quadrivalent, PF 1 completed Not Available [facility] 06/21/2022 00:01:33 Tdap 1 completed Not Available [facility] 06/21/2022 00:01:33 COVID-19, mRNA, LNP-S, PF, 100 mcg/0.5mL dose or 50 mcg/0.25mL dose 1 completed JANETTE MYNEAR null, [employer] 10/31/2022 11:23:35 COVID-19, mRNA, LNP-S, PF, 100 mcg/0.5mL dose or 50 mcg/0.25mL dose 1 completed JANETTE MYNEAR null, [employer] 10/31/2022 11:23:35 COVID-19, mRNA, LNP-S, PF, 100 mcg/0.5mL dose or 50 mcg/0.25mL dose 1 completed JANETTE MYNEAR null, [employer] 10/31/2022 11:23:35 Influenza, split virus, trivalent, preservative 9 completed Not Available [facility] 10/30/2023 10:37:01 Influenza, split virus, quadrivalent, preservative 0 completed Not Available [facility] 06/21/2022 00:01:33 pneumococcal polysaccharide PPV23 5 completed Robina Downey APRN [address] [place] [address], [address], [employer] 01/12/2025 22:04:47 Influenza, split virus, quadrivalent, preservative 9 completed JANETTE MYNEAR null, [employer] 10/31/2022 11:23:35 pneumococcal polysaccharide PPV23 7 completed JANETTE MYNEAR null, [employer] 10/31/2022 11:23:35 Influenza, split virus, quadrivalent, PF 7 completed JANETTE MYNEAR null, [employer] 10/31/2022 11:23:35 Past Encounters Encounter ID Performer Location Encounter Start Date Encounter Closed Date Diagnosis/Indication Diagnosis SNOMED-CT Code Diagnosis ICD10 Code Diagnosis IMO Codes Diagnosis Note [id number] Robina Downey [address] [address] 07/15/2022 10:03:28 07/15/2022 11:16:33 Diabetes mellitus 10170069 E11.41 Chronic re spiratory failure 69830450 J96.10 Encourage compliance with nebulizers , medication s, and home oxygen. Strongly encouraged again to stop smoking. She does have upcoming appointmen ts with cardiology and pulmonolog y and I have again asked her to keep those appointmen ts. Left upper quadrant pain 538815350 R10.12 Essential hypertension 06577448 I10 Allergic rhinitis 259257 04 J30.9 [id number] Rboina Downey [address] [address] 10/31/2022 11:14:23 10/31/2022 12:10:14 Neuropathy due to type 2 diabetes mellitus 3392034124 40243 E11.40 Increase Levemir to 35 units q HS, Prasad reviewed for gabapentin . Stop smoking. Increase physical acitivity, DM diet again emphasized . Hypothyroidism 73427282 E03.9 Vitamin D deficiency 347 82435 E55.9 Borderline personality disorder 84545333 F60.3 Tobacco de pendence caused by cigarettes 1813172669 5318863 F17.210 Body mass index 40+ - severely obese 417078919 Z68.41 Chronic re spiratory failure 29234560 J96.10 Continue inhalers and home oxygen. She failed compliance with BIPAP and Trelegy - would not wear any type of mask. She continues to smoke. Is supposed to keep f/up appts with Cardio and Pulmonary at [facility]. Diabetes mellitus 172580 09 E11.41 [id number] Robina Downey [address] [address] 12/18/2022 14:06:23 12/18/2022 16:08:55 Chronic respiratory failure 95989821 J96.10 Continue inhalers and home oxygen. She failed compliance with BIPAP and Trelegy - would not wear any type of mask. She continues to smoke. Is supposed to keep f/up appts with Cardio and Pulmonary at [facility]. Take Bisoprol 2.5 mg daily. Taper off Prednisone by 5 mg weekly for 4 days. Keep virtual Pulmonary f/up appt on 12/27/22. Keep gabapentin at 800 mg tab QID. Needs new hospital bed as she is unable to lie flat and maintain her airway in a supine position. Will send order to [facility]. Lymphocyto sis - absolute 625374870 D72.820 Candidiasis of mouth 797 28546 B37.0 Essential hypertension 07600007 I10 Continue Bumex daily. [id number] Robina Shayan[address] [address] 01/30/2023 11:21:28 01/30/2023 12:32:07 Neuropathy due to type 2 diabetes mellitus 1225348602 84961 E11.40 Increase Levemir to 45 units at bedtime. Novolog 10 units TID with meals. Prasad reviewed for gabapentin . Stop smoking. Increase physical activity, DM diet again emphasized . Add Ozempic. Obtain Dexcom for her due to glycemic excursions and multiple insulin injections per day. Long-term drug therapy 405265321 Z79.899 Obtain annual UDS today due to gabapentin use. Osteoarthr itis of knee 812168279 M17.9 Ice, weight loss, topical voltaren and prn tylenol recommende d. Will she if she can qualify for knee injections again. [id number] Robina Shayan[address] [address] 05/01/2023 11:18:27 05/01/2023 12:08:22 Neuropathy due to type 2 diabetes mellitus 4061677999 71641 E11.40 Restart Victoza. Noncomplia nce with medication regimen 761382681 Z91.148 Larger remains difficult to care for due to prior noncomplia nce. She is noncomplia nt with medication s and home therapies. She is noncomplia nt with appointmen ts. She continues to smoke despite having COPD with respirator y failure. She would not use BiPAP or AVAPS at home. She does use her oxygen occasional ly. Essential hypertension 21075086 I10 Continue current medication s Hypothyroidism 81652966 E03.9 Vitamin D deficiency 347 05337 E55.9 Chronic re spiratory failure 88709470 J96.10 Moderate r ecurrent major depression 18280897 F33.1 Add Wellbutrin Tobacco de pendence caused by cigarettes 5529674341 9264054 F17.210 Body mass index 40+ - severely obese 169321823 Z68.41 Allergic rhinitis 406445 04 J30.9 Candidiasis of mouth 797 23752 B37.0 [id number] [place] [address] 08/01/2023 12:33:16 08/01/2023 14:00:19 Neuropathy due to type 2 diabetes mellitus 2152600839 60987 E11.40 May not be able to tolerate victoza due to DM gastropore sis. I am very impressed that her glucose control is better and she was praised for her efforts. 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 She is a poor surgical candidate due to her multiple chronic health conditions and she continues to smoke. [id number] [place] [address] 10/30/2023 10:35:55 10/30/2023 11:43:22 Neuropathy due to type 2 diabetes mellitus 4051819451 83308 E11.40 Could not tolerate GLP-1 due to DM gastropore sis. No med changes today. She is not compliant with diet and meal time insulin. She remains ambivalent regarding her health and poor compliance . She also has personalit y disorder and PTSD and continues to refuse Psych referral/c ounseling. Chronic re spiratory failure 99411412 J96.10 Continue oxygen, inhalers, and nebs scheduled. She was again instructed to schedule a f/up appt with her Pulmonolog ist. Hypothyroidism 57284190 E03.9 Continue Synthroid. Noncomplia nce with treatment 8166817 Z91.199 Vitamin D deficiency 347 54400 E55.9 Long-term drug therapy 154648779 Z79.899 Obtain annual UDS today due to gabapentin use. Active or passive immunization 457593014 Z23 Body mass index 40+ - severely obese 481389249 Z68.41 Tobacco de pendence caused by cigarettes 2333096716 2451584 F17.210 Smoking cessation again encouraged . She is taking wellbutrin . She has been previously prescribed patches and did not use them. [id number] [place] [address] 12/12/2023 10:39:16 12/12/2023 11:37:12 Yfjud-jd-dbyabky respiratory failure 39273888 J96.20 Continue oxygen and QID nebs. Gastritis 9812127 K29.70 Stop steroids, no nsaids. Take protonix BID, start carafate QID. [place] diet with protein. Right lowe r zone pneumonia 982396489 J18.1 Start antx and close f/up in one week. [id number] [place] [address] 12/19/2023 14:04:11 12/19/2023 15:18:52 Right lower zone pneumonia 502109640 J18.1 Obtain f/up CXR today. Complete doxycyline . Continue nebs for pulmonary toilet. Stop smoking! She again today declined referral to pulmonary and has not kept numerous appt with Pulmonary. Gastritis 8939135 K29.70 Protonix BID, and continue carafate QID Candidiasis of mouth 797 31197 B37.0 Neuropathy due to type 2 diabetes mellitus 3275216718 98189 E11.40 Could not tolerate GLP-1 due to DM gastropore sis. No med changes today. She is not compliant with diet and meal time insulin. She remains ambivalent regarding her health and poor compliance . She also has personalit y disorder and PTSD and continues to refuse Psych referral/c ounseling. [id number] Robina Shayan [place] [address] 01/29/2024 08:39:37 01/29/2024 11:08:56 Neuropathy due to type 2 diabetes mellitus 7053051184 86740 E11.40 Could not tolerate GLP-1 due to DM gastropore sis. No med changes today. She is not compliant with diet and meal time insulin. She remains ambivalent regarding her health and poor compliance . She also has personalit y disorder and PTSD and continues to refuse Psych referral/c ounseling. Nausea 011970285 R11.0 [id number] Robina Downey APRN [place] [address] 03/14/2024 14:04:13 03/14/2024 15:21:54 Cough 32998581 R05.9 Acute exac erbation of chronic obstructive pulmonary disease 920824560 J44.1 Continue oxygen and nebs, Take Mucinex BID, push fluids. [id number] Carmen Gusman NP [place] [address] 05/08/2024 10:16:00 05/08/2024 12:49:26 Injury of head 01077812 S09.90XA Headache 87661909 R51.9 Memory impairment 109341 006 R41.3 [id number] Robina Downey APRN [place] [address] 06/24/2024 11:32:49 06/24/2024 14:03:25 Neuropathy due to type 2 diabetes mellitus 2900061417 53766 E11.40 Could not tolerate GLP-1 due to DM gastropore sis. No med changes today. She is not compliant with diet and meal time insulin. She remains ambivalent regarding her health and poor compliance . She also has personalit y disorder and PTSD and continues to refuse Psych referral/c ounseling. Essential hypertension 60296452 I10 Continue current medication s Hypothyroidism 12481011 E03.9 Continue Synthroid. Long-term drug therapy 943144988 Z79.899 Obtain annual UDS today due to gabapentin use. Spontaneou s ecchymosis 930600197 R23.3 History of closed head injury 5887858327 [address] brain was completed at [facility] in ER after she Fell 8 weeks ago and struck the right side of head. Has continued right headache with short term memory loss. [id number] Robina Downey APRN [address] 08/20/2024 11:06:34 08/20/2024 12:18:23 Administration of influenza vaccine 52825759 Z23 Acquired hypothyroidism 265749734 E03.9 Increase Synthroid to 75 mcg daily. Vertigo 989302865 R42 Falls safety explained. Start meclizine, she was assisted home in WC by our tanker truck driver. She was advised on hydration, slow position changes, and to proceed to ER for progressio n of sx. [id number] [place] [address] 09/23/2024 13:35:17 09/23/2024 14:42:24 Neuropathy due to type 2 diabetes mellitus 8268543317 42362 E11.40 Could not tolerate GLP-1 due to DM gastropore sis. Her A1c is much improved!! She has done great work improving her compliance and diet. Lost 4 pounds. [id number] [place] [address] 12/22/2024 10:31:47 12/22/2024 11:09:26 Neuropathy due to type 2 diabetes mellitus 8599343926 16528 E11.40 She is asking to try a small dose Ozempic again - cautioned for sx gastropore sis. She has done great work improving her compliance and diet. Jardiance working well for DM and CHF. Hypothyroidism 87526815 E03.9 Continue Synthroid. Vitamin D deficiency 347 14447 E55.9 Body mass index 40+ - severely obese 722964716 Z68.41 Active or passive immunization 112122606 Z23 [id number] Robina Downey [place] [phone] 03/24/2025 10:05:15 03/24/2025 11:21:22 Preventive procedure 163430719 Z00.00 [id number] Patient presented to office today for their Medicare Annual Wellness Visit. Education was provided on healthy nutrition, including a diet rich in fruits and vegetables , minimizing simple carbohydra too, salt, and saturated fats. Encouraged regular cardiovasc ular exercise such as walking at least 30 minutes daily, 5 times per week. Emphasized preventive health measures and educated pt on fall prevention and community- based lifestyle interventi ons to help reduce health risks and promote healthy living. Neuropathy due to type 2 diabetes mellitus 2888604704 01222 E11.40 Chronic post-traumatic stress disorder 798924861 F43.12 PHQ today is 16 - she refused to complete a columbia scale today. Increase Wellbutrin to 300 mg daily and continue Lexapro at 20 mg daily. Chronic sy stolic heart failure 528675356 I50.22 274405 Essential hypertension 54033088 I10 Continue current medication s Body mass index 40+ - severely obese 609183825 Z68.41 8529053358 [id number] [place] [id number] 07/06/2025 10:39:09 07/06/2025 12:02:19 Neuropathy due to type 2 diabetes mellitus 7866056051 66568 E11.40 No changes today to her diabetic medication regimen. Bronchopneumonia 1922203 07 J18.0 44503 Complete the levaquin, keep Pulmonary and Cardio follow up appts. Epidermal burn of left lower leg 7608564794 5387638 T24.132A 38451189 Cleanse twice daily with antibacter ial soap and water and apply the Silvadene cream. Continue to monitor for and report any signs of infection. Nausea 046442193 R11.0 Refill the Zofran that she uses as needed due to diabetic gastropare sis. Chronic sy stolic heart failure 217127585 I50.22 026736 Appears euvolemic today needs refill on spironolac tone. She is to keep follow-up appointmen t with cardiology as scheduled. Continue daily weights with report of excursions greater than 5 pounds. Health Concerns Section Related Observation LastModified by Organization Detai ls LastModified Time None Recorded Concern Status LastModified by Organization Details LastModified Time None Recorded Advance Directives Directive N: Payers Insurance Date Sequence Insurance Name Policy Number Policy Duong Covered Member ID Duong Member ID Guarantor Name 06/21/2025 1 [place] Maricel Cooney [id number] Maricel Cooney 06/05/2025 SLIDING FEE SCHEDULE - DISCOUNT Maricel Cooney 06/22/2025 [facility] 06/21/2025 [place] [facility] Maricel Cooney [id number] Maricel Cooney Notes Date Note Type Note Provider Name and Address Organization Details Recorded Time 024 text/ht ml HypothyroidReported by PatientHPIFor associated symptoms, patient reportslightheadedness,fatigue,cold intolerance,depressed mood,generalized pain, anddry/coarse skin. For reason for visit, patient reportstsh check/labs. For duration, patient reports>12 months. For treatment, patient reportstaking medication as prescribed,current t4 dose: 0.93, andlast tsh level: 5.78.ROS as noted in the HPI Pt recently established with Pulmonary and Cardiology at [facility]. Her diuretics were increased and she was placed on Entresto. She says she cannot afford Entresto and I have given her a Patient Assistance program form for [employer] to complete for Entresto. Her TSH was mildly elevated on cardio labs, but T 4 is normal. She is asking to increase Synthroid.Maricel is anxious today. Says she has been dizzy since yesterday. Has rapid pressured speech, is not making eye contact. Systolic BP was in the 80's upon arrival, but improved on recheck. Has an appt with Neuro in September for f/up on persistent DAS after concussion after a fall this summer in her home. SHe denies CP and palpitations and states she is no more SOA than her baseline. She is wearing her oxygen. She admits she has had similar dizzyness before and was dx with vertigo. She does not have any meclizine to take at home. She was brought her today by our van transport. Robina Downey, KEREN [address] [facility], [place], [address], [facility] [employer] 08/31/2024 18:57:08 024 text/ht ml DiabetesReported by PatientHPIFor compliance, patient reportsnoncompliant with medications,noncompliant with followup-visits,noncompliant with diet,noncompliant with home glucose monitoring, andnoncompliant with physical activitybut reportsno side effects from medications. For self care, patient reportsnot monitoring home glucoseandnot seeing eye doctor yearlybut reportschecking feet regularlyandtaking aspirin daily. For associated symptoms, patient reportsweight gain (___ lbs),numbness of feet,calluses on feet, andfatiguebut reportsno weight loss,no dizziness,no sweats,no headaches,no confusion,no increased thirst,no increased appetite,no increased urination,no blurred vision,no blurred vision, andno paresthesias. For review finger sticks, patient reportsfastin. For duration, patient reportschronic. For control, patient reportsunchanged since last visit,treated with insulin,hemoglobin a1c has been 8-9,hemoglobin a1c goal is less than 7,ldl usually runs <100, goal is less than 80, andbp usually runs less than 135/85, goal is less than 120/80.Takes gabapentin for diabetic neuropathy, Prasad reviewed and is appropriate. UDS and long-term controlled substance agreement has been consistent and is on file.ROS as noted in the HPI Robina Downey, FILTER ASSEMBLER [address] [place], [address], [facility] [employer] 10/16/2024 21:58:16 025 text/ht ml DiabetesReported by PatientHPIFor compliance, patient reportsnoncompliant with medications,noncompliant with followup-visits,noncompliant with diet,noncompliant with home glucose monitoring, andnoncompliant with physical activitybut reportsno side effects from medications. For self care, patient reportsnot monitoring home glucoseandnot seeing eye doctor yearlybut reportschecking feet regularlyandtaking aspirin daily. For associated symptoms, patient reportsweight gain (___ lbs),numbness of feet,calluses on feet, andfatiguebut reportsno weight loss,no dizziness,no sweats,no headaches,no confusion,no increased thirst,no increased appetite,no increased urination,no blurred vision,no blurred vision, andno paresthesias. For review finger sticks, patient reportsfastin. For duration, patient reportschronic. For control, patient reportsunchanged since last visit,treated with insulin,hemoglobin a1c has been 8-9,hemoglobin a1c goal is less than 7,ldl usually runs <100, goal is less than 80, andbp usually runs less than 135/85, goal is less than 120/80.Takes gabapentin for diabetic neuropathy, Prasad reviewed and is appropriate. UDS and long-term controlled substance agreement has been consistent and is on file.ROS as noted in the HPI Robina Downey, FILTER ASSEMBLER [address] [facility], [place], [address], [facility] [employer] 01/12/2025 22:06:21 025 text/ht ml Anxiety/DepressionReported by PatientHPIFor severity, patient reportsinterference with activities of daily livingandinterference with sleepbut reportsdenies suicidal ideations. For context, patient reportschronic pain,recent medical event,cardiac disease, andmajor life stressors. For associated symptoms, patient reportsdepressionandposttraumatic stress disorderbut reportsdenies homicidal ideations. For duration, patient reportschronic. For onset/timing, patient reportsgradualandfrequent. For modifying factors, patient reportsselective serotonin reuptake inhibitor (ssri). Hypertension F/UReported by PatientHPIFor lifestyle, patient reportsnot exercising regularlyanddoes not adhere to low sodium diet. For associated symptoms, patient reportsshortness of breathbut reportsno dizziness,no lightheadedness,no chest pain,no palpitations,no edema,no calf pain with exertion, andno headache. For medications, patient reportstaking medications as directedandno side effects from medication. Medicare Annual Wellness VisitReported by PatientSocial/Behavioral HistoryFor diet and nutrition, patient reportsdiet is high in salt,diet is high in fat, low in fiber, andhigh carbohydrate mealsbut reportsdiscussed vitamin and supplement use,discussed portion control,discussed maintaining calcium balance, anddiscussed diet improvement. For fracture risk, patient reportshistory of fracturesbut reportsno recent explained fractureandno sudden unexplained fractures. For physical activity, patient reportsdoes not exercise on a regular basisanddeconditioned due to sedentary lifestylebut reportsdiscussed weightbearing activities.Mental Status:For depression risk, patient reportshistory of mood disordersandhistory of depressionbut reportsno thoughts of suicide. For orientation, patient reportsno disorientation to time,no disorientation to date, andno disorientation to place. For concentration and memory, patient reportsno decreased concentrating ability,no memory lapses or loss, anddoes not forget words. For speech/motor difficulties, patient reportsno difficulty expressing formulated concepts,no difficulty with fine manipulative tasks,no difficulty writing/copying,no slowed reaction time, anddoes not knock things over when trying to pick them up.Functional AbilityFor hearing, patient reportsno loss of hearing. For vision, patient reportsno vision problems. For activities of daily living, patient reportsable to bathe with limited or no assistance,able to contol urination and bowels,able to dress with limited or no assistance,able to feed self with limited or no assistance,able to get out of chair or bed with limited or no assistance,able to groom with limited or no assistance, andable to toilet with limited or no assistance. For instrumental activities of daily living, patient reportsable to do house work with limited or no assistance,able to grocery shop with limited or no assistance,able to manage medications with limited or no assistance,able to manage money with limited or no assistance,able to prepare meals with limited or no assistance, andable to use the phone with limited or no assistance. For falls risk assessment, patient reportsno frequent falls while walking,no fall in the past year,no fall since last visit, andno dizziness/vertigo. For home safety, patient reportsno unsafe len hazzards,no unsafe stairs,no unsafe gas appliances,working smoke/co detectors,wears protective head gear for biking/high velocity,use of seatbelts,practicing 'safer sex',no vision or hearing loss while driving,no fire arms,has hand bars in the bathroom/shower, andgood lighting in the home. DiabetesReported by PatientHPIFor compliance, patient reportsnoncompliant with medications,noncompliant with followup-visits,noncompliant with diet,noncompliant with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
--- OUTSIDE RECORDS SUMMARY | 2025-08-05 07:28 | XMS_ITS | Encounter Summary ---
Author Organization [employer] ([place], [place], [place], [place]) Address [address] [place] [address] Care Team Providers Care Financial Analyst Name Role Phone Unavailable Primary Care Provider Unavailabl e Encounter Details Date Type Department Care Team (Late st Contact Info) Description 01/04/[address] [facility] [place] Family Medicine [address] [place] [address] ProviderKentrell MD [address] [place] [address] Social History Tobacco Use Types Packs/Day Years [...] Lorenzo MD - 01/04/2019 10:11 PM CDT Care Management Assessment/Plan Entered On: 01/06/2019 17:22 EDT Performed On: 01/06/2019 17:17 EDT by LUCIE PATTERSON Social Worker Care Management Note Documentation Status Complete : Yes LUCIE PATTERSON Social Worker - 01/06/2019 17:17 EDT Patient History Information Obtained from, Care Mgt : Patient, Medical Record Current Primary Care Physician : Arelis Black Emergency Contact #1 : Melanie bull Emergency Contact #1 Phone Number : [phone] Emergency Contact #1 Relationship : daughter Emergency Contact #2 : Lukasz Mcdaniel Emergency Contact #2 Phone Number : [phone] Emergency Contact #2 Relationship : Son Living Situation : Home Patient Lives With : Alone, Other: Pt's grandson has been home with her recently, 17 yrs old Mobility Assistance Prior to Admission : Independent Professional Skilled Services : None Current Home Treatments : Nebulizer treatments, Oxygen therapy, Other: prescription medications. PRN oxygen at home Home Equipment : Cane, Supplies Home Equipment Contact Information : Stephanie [facility] [phone] Special Services and Community Resources : None Sources of Income : Social Security, Disability (SSD) Patient History Note : Patient is a 63yo female who prior to admission resided alone in [facility]. Prior to admission patient was not current with home health, medical equipment within the home and was independent with ADL'S. Chart reviewed, admitted via outlying medical facility with Hypoxic Resp Fail; Pulmonary consulted, currently on 2 liters O2/nebs, Cl=95, CO2=35, WBC=18.6, H/H=8.6/28.8, CT Abd/Pelvis=IMPRESSION:1. Multifocal groundglass airspace opacity most consistent with pneumonia. 2. Rectus sheath and right pelvic hematomas as above; PT/OT following, ABX=Augmentin BID, Doxy BID, PO Prednisone. Met with patient at bedside, explain role of CM and discussed disposition plans; open to rehab placement for pulmonary follow up - referral made to [facility] for eval and possible admission. IF [facility] is not an option patient would prefer outpatient cardio/pulmonary program and [facility] or home with home health. CM will continue to follow. LUCIE PATTERSON, Technician [employer] - 01/06/2019 17:17 EDT Electronically signed by Darcie [facility] Conversion Senior Grants Officer Cerner at 01/29/2023 9:07 AM CDT documented in this encounter Plan of Treatment Not on file documented as of this encounter Visit Diagnoses Not on filedocumented in this encounter
--- OUTSIDE RECORDS SUMMARY | 2025-08-05 07:28 | XMS_ITS | Encounter Summary ---
Author Organization [employer] ([place], [place], [place], [place]) Address [address] [place] [address] Care Team Providers Care Ground Crew Lines Person Name Role Phone Unavailable Primary Care Provider Unavailabl e Encounter Details Date Type Department Care Team (Late st Contact Info) Description 01/05/2019 Transcribed Document [facility] [place] Family Medicine [address] [place] [address] ProviderKentrell MD [address] [place] [address] Social History Tobacco Use Types Packs/Day Years Used Date Smoking Tobacco: Never Assessed Comments Unknown Sex and Gender Information Value Date Recorded Sex Assigned at Not on file Legal Sex Female 5:31 PM CDT Gender Identity Not on file Sexual Orientation Not on file documented as of this encounter Miscellaneous Notes * [employer] Conversion Note - Kentrell ProviderMD - 01/05/2019 2:00 AM CDT Metal Polisher Details Entered On: 01/05/2019 4:29 EDT Performed On: 01/05/2019 2:00 EDT by Armand Cristobal Rn Order Details Transport Mode Order Detail : Ambulatory Isolation Precautions Order Detail : Contact precautions Order Detail : 0 IV Order Detail : 1 Oxygen Order Detail : 1 Nurse Collect Order Detail : 0 Lift/Transfer : Moderate assist Central Line Order Detail : No Room Service : Needs Assistance Arterial Line : No Armand Cristobal, Wesley - 01/05/2019 4:28 EDT Electronically signed by Charlotte Sprague Conversion Supervisor Sewer Maintenance Cerner at 01/29/2023 9:24 AM CDT documented in this encounter Plan of Treatment Not on file documented as of this encounter Visit Diagnoses Not on filedocumented in this encounter
--- OUTSIDE RECORDS SUMMARY | 2025-08-05 07:28 | XMS_ITS | Encounter Summary ---
Author Organization [employer] ([place], [place], [place], [place]) Address [address] [place] [address] Care Team Providers Care Table Inspector Name Role Phone Unavailable Primary Care Provider Unavailabl e Encounter Details Date Type Department Care Team (Late st Contact Info) Description 01/06/2019 Transcribed Document [facility] [place] Family Medicine [address] [place] [address] ProviderKentrell MD [address] [place] [address] Social History Tobacco Use Types Packs/Day Years Used Date Smoking Tobacco: Never Assessed Comments Unknown Sex and Gender Information Value Date Recorded Sex Assigned at Not on file Legal Sex Female 5:31 PM CDT Gender Identity Not on file Sexual Orientation Not on file documented as of this encounter Miscellaneous Notes * [employer]ner Conversion Note - Kentrell Lorenzo MD - 01/06/2019 1:37 PM CDT Consult Phone Call Documentation Entered On: 01/06/2019 14:59 EDT Performed On: 01/06/2019 13:37 EDT by Brandie Byers [facility] Coord Phone Call for Consults Consult Phone Call/Page Attempt : First call Consult Reason : Abd. pain. Physician Requesting Consult : RIP ANDREA MD Physician Requested for Consult : MARTHA LAY MD Provider Service Notified Name : Gastroenterology Additional Information : Called office, Notified of consult. Brandie Byers [facility] Coord - 01/06/2019 14:58 EDT Electronically signed by Charlotte Sprague Conversion Technology Infusion Specialist Cerner at 01/29/2023 9:06 AM CDT documented in this encounter Plan of Treatment Not on file documented as of this encounter Visit Diagnoses Not on filedocumented in this encounter
--- OUTSIDE RECORDS SUMMARY | 2025-08-05 07:28 | XMS_ITS | Encounter Summary ---
Author Organization [employer] ([place], [place], [place], [place]) Address [address] [place] [address] Care Team Providers Care Generator Rebuilder Name Role Phone Unavailable Primary Care Provider Unavailabl e Encounter Details Date Type Department Care Team (Late st Contact Info) Description 01/04/2019 Transcribed Document [facility] Family Medicine [facility] [place] [address] ProviderKentrell MD [address] [place] [id number] Social History Tobacco Use Types Packs/Day Years Used Date Smoking Tobacco: Never Assessed Comments Unknown Sex and Gender Information Value Date Recorded Sex Assigned at Not on file Legal Sex Female 5:31 PM CDT Gender Identity Not on file Sexual Orientation Not on file documented as of this encounter Miscellaneous Notes * Cerner Conversion Note - Kentrell Lorenzo MD - 01/04/2019 11:54 PM CDT Patient: MARICEL IGLESIAS MRN: - Age: 63 Years Sex: Female : 1955 Chief Complaint dyspnea on exertion, resp failure, abd pain Primary Care Provider OSITO LARSEN ([facility] History of Present Illness Maricel Iglesias is a 63-year-old female with a complicated past medical history including ITP status post splenectomy, undifferentiated hypercoagulable state with multiple DVTs and PEs on chronic Coumadin therapy, and asthma was transferred to [facility] from [facility] for pulmonology evaluation. The patient follows with Dr.Theresa Stanton with pulmonology for last several years due to reactive airway disease/asthma. She has had multiple pulmonary infections over last several years, including an admission in October at [facility] with influenza and pneumonia, since which time she has been on oxygen. She reports this past weekend, she began to feel more short of breath, with severe dyspnea on exertion and oxygen desaturations into the 60s with exertion. She presented to [facility] this past Sunday, and was admitted for hypoxic respiratory failure after an ABG demonstrated an PaO2 of 44 on room air. She was started on IV steroids, as well as IV Azactam and azithromycin with concern for community-acquired pneumonia. She is also being bridged with Lovenox for her history of hypercoagulability, and yesterday developed severe abdominal pain. She had a CT abdomen and pelvis done without contrast which showed a rectus sheath hematoma. Her physician at [facility] discussed with the patient need for further pulmonology evaluation, and [facility] was on divert where her photoengraving apprentice is. Patient reports that her photoengraving apprentice told her if she ever got sick again, that she would likely require bronchoscopy, so she was transferred to [facility] for pulmonary evaluation. Review of Systems Constitutional: No fevers, chills Eye: No blurry vision, no discharge HEENT: No sore throat, no nasal congestion Respiratory: reports wheezing, cough, dyspnea on exertion Cardiovascular: No Chest pain, no palpitations Gastrointestinal: No nausea, vomiting, diarrhea, constipation, reports abdominal pain Genitourinary: No hematuria, no dysuria Rodolfo/Lymph: Negative for bruising tendency, no nosebleeds Endocrine: Negative for excessive thirst, no excessive urination Musculoskeletal: No back pain, no leg pain Integumentary: No rash, no pruritus Neurologic: No weakness, no numbness Psychiatric: No anxiety, reports depression Vital Signs No qualifying data available Oxygen Settings (Last) No qualifying data available. Physical Exam General: Alert and oriented, no acute distress, obese, on O2 Neurologic: Awake, alert, and oriented X3, no apparent focal deficits Eye: PERRL, EOMI, normal conjuctiva HENT: Normocephalic, atraumatic Neck: Supple, non-tender, no carotid bruits, no JVD Lungs: bilateral wheezing, good air movement, on O2, no ronchi Heart: Normal rate, regular rhythm, no murmur Abdomen: Soft, tender to palpation, active bowel sounds, ecchymossi Musculoskeletal: Normal range of motion and strength, no tenderness or swelling Skin: Skin is warm, dry and pink, no rashes or lesions Psychiatric: Cooperative, appropriate mood and affect Assessment/Plan Assessment: Acute hypoxemic respiratory failure, 2/2 asthma exacerbation - CT abd with ground-glass opacities at bilateral lung bases R Rectus sheath hematoma. - 7.5 x 4.3 cm hematoma, extending 13cm on CT - Hgb 8.2, unknown baseline Abdominal pain, 2/2 above Hypercoagulable state, patient unclear of etiology, worked up at in - on chronic coumadin therapy, being bridged with lovenox at [facility] due to subtherapeutic INR - multiple unprovoked DVT/PE, s/p IVC filter ITP s/p splenectomy in 1986 HFpEF, stable, not in acute exacerbation Type 2 diabetes mellitus, unclear control Leukocytosis, WBC 23.4, w/ neutrophilia. - patient also on IV steroid at OSH, PCT pending Hypothyroidism, on synthroid Depression Hyperlipidemia, on statin Obesity, BMI 46.7 Hx of endometrial cancer Plan: Admit to telemetry Pulmonology consulted Check sputum culture, resp PCR, procalcitonin Continue abx for now Check CT chest Check CT abd/pelvis with large hematoma and anemia Monitor H/H, transfuse as needed for Hgb <7 Insulin correctional scale, check A1C DVT ppx: SCDs GI ppx: home PPI Diet: Code status: full code Meds reviewed. Time spent: 75 minutes Ordered: acetaminophen, 650 mg, Oral, Tab, Q4H, PRN for Fever, Routine, Start 01/04/19 23:08:00 EDT albuterol, 1 Puff, Inhalation, Inh, QID, PRN for Dyspnea, Routine, Start 01/04/19 23:13:00 EDT amLODIPine, 10 mg, Oral, Tab, Daily, Routine, Start 01/05/19 9:00:00 EDT cholecalciferol, 2,000 Units, Oral, Tab, Daily, Routine, Start 01/05/19 9:00:00 EDT FLUoxetine, 20 mg, Oral, Cap, Daily, Routine, Start 01/05/19 9:00:00 EDT formoterol-mometasone, 2 Puff, Inhalation, Inh, RT_BID, Routine, Start 01/05/19 8:00:00 EDT furosemide, 20 mg, Oral, Tab, Daily, Routine, Start 01/05/19 9:00:00 EDT gabapentin, 900 mg, Oral, Cap, TID, Routine, Start 01/04/19 23:13:00 EDT insulin lispro, Scale D:, SubCutaneous, Inj, AC and at Bedtime, Routine, Start 01/05/19 7:00:00 EDT, At HS give only if FSBG > 180 mg/dL levothyroxine, 50 mcg, Oral, Tab, Daily, Routine, Start 01/05/19 6:30:00 EDT methaDONE, 20 mg, Oral, Tab, QID, Routine, Start 01/04/19 23:13:00 EDT metoprolol, 25 mg, Oral, XL Tab, Daily, Routine, Start 01/05/19 9:00:00 EDT morphine, 2 mg, IV Push, Inj, Q2H, PRN for Pain (Severe 7-10), Routine, Start 01/04/19 23:08:00 EDT nitroglycerin, 0.4 mg, SubLINgual, Tab, Q5Min, PRN for Chest Pain, Routine, Start 01/04/19 23:13:00 EDT ondansetron, 4 mg, IV Push, Inj, Q4H, PRN for Nausea, Routine, Start 01/04/19 23:08:00 EDT ondansetron, 8 mg, Oral, Tab, Q8H, PRN for Nausea/Vomiting, Routine, Start 01/04/19 23:13:00 EDT pantoprazole, 40 mg, Oral, EC Tab, Daily, Routine, Start 01/05/19 9:00:00 EDT polyethylene glycol 3350, 17 Gram, Oral, Powder, Daily, PRN for Constipation, Routine, Start 01/04/19 23:08:00 EDT promethazine, 6.25 mg, IntraVENous, Inj, Q6H, PRN for Nausea, Routine, Start 01/04/19 23:08:00 EDT tiotropium, 18 mcg, Inhalation, Cap, Daily, Routine, Start 01/05/19 9:00:00 EDT Bedrest CBC w/ Auto Diff CMP Comprehensive Metabolic Panel Consult to Physician CT Abdomen Pelvis W CT Chest W Culture Blood Culture Blood Culture Sputum and Stain Diabetes Education (Nursing) Diabetes Education (Nursing) Diet, Adult DVT VTE Prophylaxis Education Facility Protocol Hemoglobin A1C Intake and Output Lab Order Instructions to Nursing Lipid Panel Notify Provider Intake and Output Notify Provider of Change in Patient Condition Notify Provider of Change in Patient Condition Notify Provider Vital Signs OT Evaluation and Treatment Oxygen Therapy POC Glucose PT Evaluation and Treatment Pulse Oximetry Continuous Monitoring Respiratory Care Assessment Respiratory Panel PCR Resuscitation Status Sequential Compression Device TSH Thyroid Stimulating Hormone Vital Signs VTE Prophylaxis - Medical Sequential Compression Device Start: 01/04/19 23:08:00 EDT, Bilateral, Length: Knee High, While patient is in bed, Continuous Order (JEANETTE CABRAL) Problem List/Past Medical History Asthma, ITP s/p splenectomy, PUD, HLD, obesity, hypercoaguable, PE/DVT, HFpEF, Dm2, IBS, Depression, anxiety Procedure/Surgical History splenectomy, IVC filter, R breast biopsy, FELICIANO w/ BSO, cholecystectomy, pancreatic pseudocyst drainage x 2, bilateral carpal tunnel, srinivasa fundoplication, R knee Home Medications (24) Active Advair Diskus 250 mcg-50 mcg inhalation powder 1 Puff, Inhalation, BID amLODIPine 10 mg oral tablet 10 mg = 1 Tab, Oral, Daily azithromycin 500 mg intravenous injection , IntraVENous, [id number] aztreonam 1 g injection , IntraVENous, Q12H [...] mg = 1 Tab, PRN, Oral, Q8H Allergies Levaquin NSAIDs Nubain albuterol sulfADIAZINE Social History no etoh, no tobacco, no drugs. 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 History fam history of lung cancer and heart disease Lab Results Test Name Test Result Date/Time Sodium Level 139 mmol/L 01/04/2019 22:35 EDT Potassium Level 3.9 mmol/L 01/04/2019 22:35 EDT Chloride Level 104 mmol/L 01/04/2019 22:35 EDT Carbon Dioxide Level 33 mmol/L (High) 01/04/2019 22:35 EDT Anion Gap 6 (Low) 01/04/2019 22:35 EDT Glucose Level 274 mg/dL (High) 01/04/2019 22:35 EDT Blood Urea Nitrogen 16 mg/dL 01/04/2019 22:35 EDT Creatinine Level 0.80 mg/dL 01/04/2019 22:35 EDT eGFR >60 mL/min/1.73m2 01/04/2019 22:35 EDT eGFR NonAfrican >60 mL/min/1.73m2 01/04/2019 22:35 EDT Bun/Creatinine 20.0 01/04/2019 22:35 EDT Calcium Level 8.6 mg/dL 01/04/2019 22:35 EDT Protein Total 6.6 Gram/dL 01/04/2019 22:35 EDT Albumin Level 3.1 Gram/dL (Low) 01/04/2019 22:35 EDT Globulin 3.5 Gram/dL 01/04/2019 22:35 EDT A/G Ratio 0.9 (Low) 01/04/2019 22:35 EDT Bilirubin Total 0.2 mg/dL 01/04/2019 22:35 EDT Alk Phos 102 Units/Liter 01/04/2019 22:35 EDT AST 8 Units/Liter 01/04/2019 22:35 EDT ALT 10 Units/Liter (Low) 01/04/2019 22:35 EDT Lactic Acid Level 1.6 mmol/L 01/04/2019 22:35 EDT WBC 23.4 K/uL (High) 01/04/2019 22:35 EDT RBC 3.05 Million/uL (Low) 01/04/2019 22:35 EDT Hgb 8.2 g/dL (Low) 01/04/2019 22:35 EDT Hct 26.9 % (Low) 01/04/2019 22:35 EDT MCV 88.2 fL 01/04/2019 22:35 EDT MCH 26.9 pg 01/04/2019 22:35 EDT MCHC 30.5 Gram/dL (Low) 01/04/2019 22:35 EDT Platelet Count 404 K/uL (High) 01/04/2019 22:35 EDT MPV 10.8 fL 01/04/2019 22:35 EDT RDW 16.5 % (High) 01/04/2019 22:35 EDT Neut % 73.8 % (High) 01/04/2019 22:35 EDT Neut # 17.27 K/uL (High) 01/04/2019 22:35 EDT Lymph % 16.7 % (Low) 01/04/2019 22:35 EDT Lymph # 3.90 x10(3)/uL 01/04/2019 22:35 EDT [place] % 8.5 % 01/04/2019 22:35 EDT [place] # 2.00 K/uL (High) 01/04/2019 22:35 EDT Eos % 0.0 % 01/04/2019 22:35 EDT Eos # 0.00 x10(3)/uL 01/04/2019 22:35 EDT Baso % 0.1 % 01/04/2019 22:35 EDT Baso # 0.02 x10(3)/uL 01/04/2019 22:35 EDT Slide Review No 01/04/2019 22:35 EDT IG# 0.22 x10(3)/uL (High) 01/04/2019 22:35 EDT IG% 0.90 % (High) 01/04/2019 22:35 EDT PT 29.9 Second(s) (High) 01/04/2019 22:35 EDT INR 2.8 (High) 01/04/2019 22:35 EDT Procalcitonin <0.25 ng/mL 01/04/2019 22:35 EDT Additional Documentation Code Status Start: 01/04/19 23:08:00 EDT, Full Code, Continuous Order Electronically signed by [facility], [facility] Conversion Cabinetmaker Maintenance Cerner at 01/29/2023 9:06 AM CDT documented in this encounter Plan of Treatment Not on file documented as of this encounter Visit Diagnoses Not on filedocumented in this encounter
--- OUTSIDE RECORDS SUMMARY | 2025-08-05 07:28 | XMS_ITS | Encounter Summary ---
Author Organization [employer] ([place], [place], [place], [place]) Address [address] [place] [address] Care Team Providers Care Car Worker Name Role Phone Unavailable Primary Care Provider Unavailabl e Encounter Details Date Type Department Care Team (Late st Contact Info) Description 01/06/2019 Transcribed Document [facility] [place] [facility] Family Medicine [address] [place] [address] ProviderKentrell MD [address] [place] [address] Social History Tobacco Use Types Packs/Day Years Used Date Smoking Tobacco: Never Assessed Comments Unknown Sex and Gender Information Value Date Recorded Sex Assigned at Not on file Legal Sex Female 5:31 PM CDT Gender Identity Not on file Sexual Orientation Not on file documented as of this encounter Miscellaneous Notes * Cerketan Conversion Note - Kentrell ProviderMD - 01/06/2019 5:00 PM CDT Chart Check - Review Order Profile Entered On: 01/06/2019 16:15 EDT Performed On: 01/06/2019 17:00 EDT by Lyn Marcus RN Chart Check Chart Reviewed Date and Time : 01/06/2019 16:15 EDT Powerplans Initiated/Discontinued as Appropriate : Yes All Active Orders Reviewed : Yes Lyn Marcus RN - 01/06/2019 16:15 EDT documented in this encounter Plan of Treatment Not on file documented as of this encounter Visit Diagnoses Not on filedocumented in this encounter
--- OUTSIDE RECORDS SUMMARY | 2025-08-05 07:28 | XMS_ITS | Encounter Summary ---
Author Organization [employer] ([place], [place], [place], [place]) Address [address] [place] [address] Care Team Providers Care Asphalt Surface Heater Operator Name Role Phone Unavailable Primary Care Provider Unavailabl e Encounter Details Date Type Department Care Team (Late st Contact Info) Description 01/06/2019 Transcribed Document [facility] Family Medicine [address] [place] [address] ProviderKentrell MD [address] [place] [address] Social History Tobacco Use Types Packs/Day Years Used Date Smoking Tobacco: Never Assessed Comments Unknown Sex and Gender Information Value Date Recorded Sex Assigned at Not on file Legal Sex Female 5:31 PM CDT Gender Identity Not on file Sexual Orientation Not on file documented as of this encounter Miscellaneous Notes * Adal Conversion Note - Kentrell ProviderMD - 01/06/2019 11:40 AM CDT Attempt to Treat, OT Entered On: 01/06/2019 11:40 EDT Performed On: 01/06/2019 11:40 EDT by SAYRA MANJARREZ OTR/Hal Attempt to Treat Unable to Treat Due To : Patient Refusal Inability to Treat Comment : pt eating refused Will f/u as schedule permits Notification : SAYRA MINA OTR/L - 01/06/2019 11:40 EDT documented in this encounter Plan of Treatment Not on file documented as of this encounter Visit Diagnoses Not on filedocumented in this encounter
--- OUTSIDE RECORDS SUMMARY | 2025-08-05 07:28 | XMS_ITS | Encounter Summary ---
Author Organization [employer] ([place], [place], [place], [place]) Address [address] [place] [address] Care Team Providers Care Ad Operations Intern Name Role Phone Unavailable Primary Care Provider Unavailabl e Encounter Details Date Type Department Care Team (Late st Contact Info) Description 01/06/[address] [facility] Family Medicine [address] [place] [address] ProviderKentrell MD [address] [place], [place] [id number] Social History Tobacco Use Types Packs/Day Years Used Date Smoking Tobacco: Never Assessed Comments Unknown Sex and Gender Information Value Date Recorded Sex Assigned at Not on file Legal Sex Female 5:31 PM CDT Gender Identity Not on file Sexual Orientation Not on file documented as of this encounter Miscellaneous Notes * Cerner Conversion Note - Kentrell Lorenzo MD - 01/06/2019 1:00 PM CDT Pain Assessment Entered On: 01/06/2019 16:13 EDT Performed On: 01/06/2019 14:56 EDT by Lyn Marcus RN Intervention Information: methadone Performed by Lyn Marcus RN on 01/06/2019 13:56:00 EDT methadone,10mg Oral Pain Assessment Pain Assessment : Follow-up assessment Pain Scale Goal : 3 Pain Scale Used : 0-10 Scale Lyn Marcus RN - 01/06/2019 16:13 EDT Pain Scale Intensity : 5 Lyn Marcus RN - 01/06/2019 16:13 EDT Image 4 - Images currently included in the form version of this document have not been included in the text rendition version of the form. Electronically signed by Interface, Sjh Conversion Underground Mining Section Foreman Cerner at 01/29/2023 9:20 AM CDT documented in this encounter Plan of Treatment Not on file documented as of this encounter Visit Diagnoses Not on filedocumented in this encounter
--- OUTSIDE RECORDS SUMMARY | 2025-08-05 07:29 | XMS_ITS | Encounter Summary ---
Author Organization [employer] ([place], [place], [place], [place]) Address [address] [place] [address] Care Team Providers Care Associate Director Regulatory Affairs Name Role Phone Unavailable Primary Care Provider Unavailabl e Encounter Details Date Type Department Care Team (Late st Contact Info) Description 01/05/2019 Transcribed Document [facility] [place] Family Medicine [address] [place] [address] ProviderKentrell MD [address] [place], [place] [address] Social History Tobacco Use Types Packs/Day Years Used Date Smoking Tobacco: Never Assessed Comments Unknown Sex and Gender Information Value Date Recorded Sex Assigned at Not on file Legal Sex Female 5:31 PM CDT Gender Identity Not on file Sexual Orientation Not on file documented as of this encounter Miscellaneous Notes * Cerner Conversion Note - Kentrell Lorenzo MD - 01/05/2019 1:00 PM CDT Pain Assessment Entered On: 01/05/2019 15:30 EDT Performed On: 01/05/2019 15:32 EDT by Amalia Bryan Rn Intervention Information: methadone Performed by Amalia Bryan Rn on 01/05/2019 14:32:00 EDT methadone,10mg Oral Pain Assessment Pain Scale Used : 0-10 Scale Amalia Bryan Rn - 01/05/2019 15:30 EDT Pain Scale Intensity : 5 Amalia Bryan Rn - 01/05/2019 15:30 EDT Image 4 - Images currently included in the form version of this document have not been included in the text rendition version of the form. documented in this encounter Plan of Treatment Not on file documented as of this encounter Visit Diagnoses Not on filedocumented in this encounter
--- OUTSIDE RECORDS SUMMARY | 2025-08-05 07:29 | XMS_ITS | Encounter Summary ---
Author Organization [employer] ([place], [place], [place], [place]) Address [address] [place] [address] Care Team Providers Care Chiropractic Physician Name Role Phone Unavailable Primary Care Provider Unavailabl e Encounter Details Date Type Department Care Team (Late st Contact Info) Description 01/07/2019 Transcribed Document [facility] [place] [facility] [place] [address] ProviderKetnrell MD [address] [place] [address] Social History Tobacco Use Types Packs/Day Years Used Date Smoking Tobacco: Never Assessed Comments Unknown Sex and Gender Information Value Date Recorded Sex Assigned at Not on file Legal Sex Female 5:31 PM CDT Gender Identity Not on file Sexual Orientation Not on file documented as of this encounter Miscellaneous Notes * Cerner Conversion Note - Kentrell Lorenzo MD - 01/07/2019 2:05 PM CDT [address] , [place] [address] Patient Copy Patient Information: Name: MARICEL IGLESIAS Current Date: 01/07/2019 14:05:26 : 1955 Patient Address: [place] [address] Patient Attending Physician: CARLOS LANDIN DO Primary Care Provider: OSITO LARSEN (REF)[facility] Primary Care Provider Discharge Diagnosis: Weakness Weight on Admission: 223 lb, 0 oz Weight at Discharge: 218 lb Comment: Follow-up Instructions: With: Address: When: [address] [facility], [address] [place], [place] [id number] Business (1) Within 2 to 3 days Comments: Please call to make a 1-2 week follow-up appointment with the fire suppression captain. With: Address: When: Follow up with specialist Within 1 week Comments: Please have your senior behavioral scientist to refer you to a bumper straightener within 1-2 weeks. With: Address: When: OSITO LARSEN [address] [place] [address], [address] [place] [address] Business (1) 3:30 PM Discharge Instructions: Diet after Discharge: Heart healthy diet, Diabetic diet Activity after Discharge: As tolerated Driving after Discharge: Do not drive Showering/Bathing:May shower Notify Provider of: fever greater than 101.5, increased shortness of air at rest, blood sugars than remain above 200 consistently in a 24 hour period. Medical Equipment for Home Use: [facility]: [facility] [phone] Immunizations Documented During Stay: No Immunizations Found [...] 09/13/2009 Document Revised: 10/22/2015 Document Reviewed: 11/26/2014 Goodwall Interactive Patient Education ? 2017 Goodwall Inc. How to Take a Pulse Your [...] 04/06/2004 Document Revised: 04/20/2017 Document Reviewed: 03/06/2017 Goodwall Interactive Patient Education ? 2017 Goodwall Inc. Smoking Hazards Smoking cigarettes is extremely [...] contain harmful chemicals. FOR MORE INFORMATION ??? [place] Lung Association: www.lung.org ??? [place] Cancer Society: www.cancer.org This information is not intended to replace advice given to you by your health care provider. Make sure you discuss any questions you have with your health care provider. Document Released: 11/08/2005 Document Revised: 01/22/2017 Document Reviewed: 03/23/2014 Goodwall Interactive Patient Education ? 2017 Goodwall Inc. Diabetes Mellitus and Standards of Medical Care Managing diabetes (diabetes mellitus) can be complicated. Your diabetes treatment may be managed by a team of health care providers, including: ??? A diet and director of food and nutrition services (registered dietitian). ??? A nurse. ??? A certified control systems technician (CDE). ??? A beef cattle specialist (coffee break attendant). ??? An eye doctor. ??? A primary [...] 07/29/2010 Document Revised: 06/29/2017 Document Reviewed: 06/29/2017 Goodwall Interactive Patient Education ? 2017 Goodwall Inc. Diabetes Mellitus and Sick Day Management Blood [...] lot of sugar. Take medicines as directed??? Svkl-tvnc-qqo-counter and prescription medicines only as told by [...] 10/03/2004 Document Revised: 06/29/2017 Document Reviewed: 06/29/2017 FIZZA Patient Education ? 2017 Goodwall Inc. Weakness Weakness is a lack of strength. [...] 09/13/2009 Document Revised: 04/01/2013 Document Reviewed: 07/21/2016 Elsevier Interactive Patient Education ? 2017 Spaseebo. Medication Leaflets: amoxicillin and clavulanate potassium (am [...] may report side effects to FDA at 2-890-BEF-0323. What other drugs will affect amoxicillin and clavulanate potassium? Tell your doctor about all your current medicines and any you start or stop using, especially: ? allopurinol; ?? probenecid; or ?? a blood thinner--warfarin, Coumadin, Jantoven. This list is not complete. Other drugs may interact with amoxicillin and clavulanate potassium, including prescription and asvs-pbb-xvbkyki medicines, vitamins, and herbal products. Not all [...] to ensure that the information provided by [employer]. ('Multum') is accurate, up-to-date, and complete, but no guarantee is made to that effect. Drug information contained herein may be time sensitive. Funzio information has been compiled for use by healthcare practitioners and consumers in the [place] and therefore Funzio does not warrant that uses outside of the [place] are appropriate, unless specifically indicated otherwise. ClearEdge3Ds drug information does not endorse drugs, diagnose patients or recommend therapy. ClearEdge3Ds drug information is an informational resource designed [...] effective or appropriate for any given patient. Funzio does not assume any responsibility for any aspect of healthcare administered with the aid of information Funzio provides. The information contained herein is not intended to cover all possible uses, directions, precautions, warnings, drug interactions, allergic reactions, or adverse effects. If you have questions about the drugs you are taking, check with your doctor, nurse or pharmacist. Copyright 9947-4800 [employer]. Version: 08.16. Revision Date: 10/16/2017. formoterol and [...] may report side effects to FDA at 3-525-GQL-5011. What other drugs will affect formoterol and [...] affect formoterol and mometasone, including prescription and gshh-amp-bmbfmvb medicines, vitamins, and herbal products. Not all [...] to ensure that the information provided by [employer]. ('Multum') is accurate, up-to-date, and complete, but no guarantee is made to that effect. Drug information contained herein may be time sensitive. Funzio information has been compiled for use by healthcare practitioners and consumers in the [place] and therefore Double [employer] Sports Analyticsum does not warrant that uses outside of the [place] are appropriate, unless specifically indicated otherwise. Funzio's drug information does not endorse drugs, diagnose patients or recommend therapy. [facility] drug information is an informational resource designed [...] effective or appropriate for any given patient. [facility] does not assume any responsibility for any aspect of healthcare administered with the aid of information [facility] provides. The information contained herein is not intended to cover all possible uses, directions, precautions, warnings, drug interactions, allergic reactions, or adverse effects. If you have questions about the drugs you are taking, check with your doctor, nurse or pharmacist. Copyright 7965-3664 [facility]. Version: 9.. Revision Date: 12/31/2017. saccharomyces boulardii lyo (SAK [...] known as Logan's Yeast, Martini CBS 5926, Judy de Cindy, and Probiotic. Saccharomyces boulardii lyo has been [...] may report side effects to FDA at 0-208-BAQ-5905. What other drugs will affect saccharomyces boearledii lyo? Other drugs may interact with saccharomyces boulardii lyo, including prescription and btpp-nek-uhrdfbc medicines, vitamins, and herbal products. Tell each [...] to ensure that the information provided by [employer]. ('Lama Labtum') is accurate, up-to-date, and complete, but no guarantee is made to that effect. Drug information contained herein may be time sensitive. Funzio information has been compiled for use by healthcare practitioners and consumers in the [place] and therefore Funzio does not warrant that uses outside of the [place] are appropriate, unless specifically indicated otherwise. ClearEdge3Ds drug information does not endorse drugs, diagnose patients or recommend therapy. ClearEdge3Ds drug information is an informational resource designed [...] effective or appropriate for any given patient. Funzio does not assume any responsibility for any aspect of healthcare administered with the aid of information Funzio provides. The information contained herein is not intended to cover all possible uses, directions, precautions, warnings, drug interactions, allergic reactions, or adverse effects. If you have questions about the drugs you are taking, check with your doctor, nurse or pharmacist. Copyright 5506-6123 [employer]. Version: 2.03. Revision Date: 09/17/2015. insulin glargine (IN leos gm SAL baker) Basaglar KwikPen, Lantus, Lantus Solostar Pen, Toujeo SoloStar What is the most important information I [...] you should know that you have diabetes. documented in this encounter Plan of Treatment Not on file documented as of this encounter Visit Diagnoses Not on filedocumented in this encounter
--- OUTSIDE RECORDS SUMMARY | 2025-08-05 07:29 | XMS_ITS | Encounter Summary ---
Author Organization [employer] ([place], [place], [place], [place]) Address [address] [place] [address] Care Team Providers Care Dust Box Tender Name Role Phone Unavailable Primary Care Provider Unavailabl e Encounter Details Date Type Department Care Team (Late st Contact Info) Description 01/05/2019 Transcribed Document [facility] [place] [address] [place] [address] ProviderKentrell MD [address] [place] [address] Social History Tobacco Use Types Packs/Day Years Used Date Smoking Tobacco: Never Assessed Comments Unknown Sex and Gender Information Value Date Recorded Sex Assigned at Not on file Legal Sex Female 5:31 PM CDT Gender Identity Not on file Sexual Orientation Not on file documented as of this encounter Miscellaneous Notes * Cerner Conversion Note - Kentrell ProviderMD - 01/05/2019 5:00 PM CDT Chart Check - Review Order Profile Entered On: 01/05/2019 15:31 EDT Performed On: 01/05/2019 17:00 EDT by Amalia Bryan, Rn Chart Check Powerplans Initiated/Discontinued as Appropriate : Yes All Active Orders Reviewed : Yes Amalia Bryan, Rn - 01/05/2019 15:31 EDT Electronically signed by Charlotte Sprague Conversion Clinical Education Academic Coordinator Cerner at 01/29/2023 9:05 AM CDT documented in this encounter Plan of Treatment Not on file documented as of this encounter Visit Diagnoses Not on filedocumented in this encounter
--- OUTSIDE RECORDS SUMMARY | 2025-08-05 07:29 | XMS_ITS | Encounter Summary ---
Author Organization [employer] ([place], [place], [place], [place]) Address [address] [place] [address] Care Team Providers Care Pill Maker Name Role Phone Unavailable Primary Care Provider Unavailabl e Encounter Details Date Type Department Care Team (Late st Contact Info) Description 01/07/2019 Transcribed Document [facility] [place] [facility] [place] [address] ProviderKentrell MD [address] [place] [id number] Social History Tobacco Use Types Packs/Day Years [...] Lorenzo MD - 01/07/2019 2:05 PM CDT Patient Education Materials Follows:Medicine How to Take a Pulse Your pulse [...] 04/06/2004 Document Revised: 04/20/2017 Document Reviewed: 03/06/2017 Nodejitsu Interactive Patient Education ? 2017 Sanako. Endocrinology Diabetes Mellitus and Standards of Medical Care Managing diabetes (diabetes mellitus) can be complicated. Your diabetes treatment may be managed by a team of health care providers, including: ??? A diet and child nutrition manager (registered dietitian). ??? A nurse. ??? A certified solid waste facility operator (CDE). ??? A wound/ostomy clinical nurse specialist (sales trainer). ??? An eye doctor. ??? A primary [...] 07/29/2010 Document Revised: 06/29/2017 Document Reviewed: 06/29/2017 Nodejitsu Interactive Patient Education ? 2017 Nodejitsu Inc. Diabetes Mellitus and Sick Day Management [...] lot of sugar. Take medicines as directed??? Wywu-ronc-fzw-counter and prescription medicines only as told by [...] 10/03/2004 Document Revised: 06/29/2017 Document Reviewed: 06/29/2017 Nodejitsu Interactive Patient Education ? 2017 Sanako. Neurology Weakness Weakness is a lack of strength. [...] 09/13/2009 Document Revised: 04/01/2013 Document Reviewed: 07/21/2016 Nodejitsu Interactive Patient Education ? 2017 Sanako. Preventive Medicine How to Take Your Blood Pressure HOW [...] 09/13/2009 Document Revised: 10/22/2015 Document Reviewed: 11/26/2014 ElseD8A Group Interactive Patient Education ? 2017 Nodejitsu Inc. Pulmonary Medicine Smoking Hazards Smoking cigarettes is extremely bad [...] increased risk of the following: ??? Sudden infant syndrome (SIDS). ? Respiratory infections. ? Lung [...] contain harmful chemicals. FOR MORE INFORMATION ??? [place] Lung Association: www.lung.org ??? [place] Cancer Society: www.cancer.org This information is not intended to replace advice given to you by your health care provider. Make sure you discuss any questions you have with your health care provider. Document Released: 11/08/2005 Document Revised: 01/22/2017 Document Reviewed: 03/23/2014 Elsevier Interactive Patient Education ? 2017 Nodejitsu Inc. documented in this encounter Plan of Treatment Not on file documented as of this encounter Visit Diagnoses Not on filedocumented in this encounter
--- OUTSIDE RECORDS SUMMARY | 2025-08-05 07:29 | XMS_ITS | Encounter Summary ---
Author Organization [employer] ([place], [place], [place], [place]) Address [address] [place] [address] Care Team Providers Care Dressed Poultry Grader Name Role Phone Unavailable Primary Care Provider Unavailabl e Encounter Details Date Type Department Care Team (Late st Contact Info) Description 01/09/2019 Transcribed Document [facility] [place] Family Medicine [address] [place] [address] ProviderKentrell MD [address] [place] [address] Social History Tobacco Use Types Packs/Day Years Used Date Smoking Tobacco: Never Assessed Comments Unknown Sex and Gender Information Value Date Recorded Sex Assigned at Not on file Legal Sex Female 5:31 PM CDT Gender Identity Not on file Sexual Orientation Not on file documented as of this encounter Miscellaneous Notes * Cerner Conversion Note - Kentrell Lorenzo MD - 01/09/2019 4:08 PM CDT [address] [place] [address] Patient Copy Patient Information: Name: MARICEL COONEY Current Date: 01/09/2019 16:08:44 : 1955 Patient Address: [place] [address] Patient Attending Physician: CARLOS LANDIN DO Primary Care Provider: OSITO LARSEN (REF)[facility] Primary Care Provider Discharge Diagnosis: Weakness Weight on Admission: 223 lb, 0 oz Weight at Discharge: 218 lb Comment: Follow-up Instructions: With: Address: When: [address] [facility], [address] [place], [place] [id number] Business (1) Within 2 to 3 days Comments: Please call to make a 1-2 week follow-up appointment with the roller hand. With: Address: When: Follow up with specialist Within 1 week Comments: Please have your supervisor sterile processing to refer you to a research scientist within 1-2 weeks. With: Address: When: OSITO LARSEN [address] [place] [address], [address] [place] [address] Business (1) 3:30 PM Discharge Instructions: Diet after Discharge: Heart healthy diet, Diabetic diet Activity after Discharge: As tolerated Driving after Discharge: Do not drive Showering/Bathing:May shower Notify Provider of: fever greater than 101.5, increased shortness of air at rest, blood sugars than remain above 200 consistently in a 24 hour period. Medical Equipment for Home Use: [facility]: [facility] [phone] Immunizations Documented During Stay: No Immunizations Found [...] SubCutaneous Two Times A Day. Refills: 0. saccharomyces boulardii lyo (Florastor 250 [...] 09/13/2009 Document Revised: 10/22/2015 Document Reviewed: 11/26/2014 Paytopia Interactive Patient Education ? 2017 Paytopia Inc. How to Take a Pulse Your [...] 04/06/2004 Document Revised: 04/20/2017 Document Reviewed: 03/06/2017 ElseTravanti Pharma Interactive Patient Education ? 2017 Elsevier Inc. Smoking Hazards Smoking cigarettes is extremely [...] contain harmful chemicals. FOR MORE INFORMATION ??? [place] Lung Association: www.lung.org ??? [place] Cancer Society: www.cancer.org This information is not intended to replace advice given to you by your health care provider. Make sure you discuss any questions you have with your health care provider. Document Released: 11/08/2005 Document Revised: 01/22/2017 Document Reviewed: 03/23/2014 Paytopia Interactive Patient Education ? 2017 Paytopia Inc. Diabetes Mellitus and Standards of Medical Care Managing diabetes (diabetes mellitus) can be complicated. Your diabetes treatment may be managed by a team of health care providers, including: ??? A diet and director of food and nutrition services (registered dietitian). ??? A nurse. ??? A certified industrial hygienist (CDE). ??? A animal control specialist (capacity planning manager). ??? An eye doctor. ??? A primary [...] 07/29/2010 Document Revised: 06/29/2017 Document Reviewed: 06/29/2017 Paytopia Interactive Patient Education ? 2017 GuardiCore. Diabetes Mellitus and Sick Day Management Blood [...] lot of sugar. Take medicines as directed??? Uymn-gnss-esu-counter and prescription medicines only as told by [...] 10/03/2004 Document Revised: 06/29/2017 Document Reviewed: 06/29/2017 Paytopia Interactive Patient Education ? 2017 GuardiCore. Weakness Weakness is a lack of strength. [...] 09/13/2009 Document Revised: 04/01/2013 Document Reviewed: 07/21/2016 Paytopia Interactive Patient Education ? 2017 GuardiCore. Medication Leaflets: amoxicillin and clavulanate potassium (am [...] may report side effects to FDA at 0-603-PJS-4374. What other drugs will affect amoxicillin and clavulanate potassium? Tell your doctor about all your current medicines and any you start or stop using, especially: ? allopurinol; ?? probenecid; or ?? a blood thinner--warfarin, Coumadin, Jantoven. This list is not complete. Other drugs may interact with amoxicillin and clavulanate potassium, including prescription and jpuy-mdl-nthbzqu medicines, vitamins, and herbal products. Not all [...] to ensure that the information provided by [employer]. ('Multum') is accurate, up-to-date, and complete, but no guarantee is made to that effect. Drug information contained herein may be time sensitive. Bundle Buy information has been compiled for use by healthcare practitioners and consumers in the [place] and therefore Bundle Buy does not warrant that uses outside of the [place] are appropriate, unless specifically indicated otherwise. Bundle Buy's drug information does not endorse drugs, diagnose patients or recommend therapy. P[employer]isions drug information is an informational resource designed [...] effective or appropriate for any given patient. [employer] does not assume any responsibility for any aspect of healthcare administered with the aid of information [employer] provides. The information contained herein is not intended to cover all possible uses, directions, precautions, warnings, drug interactions, allergic reactions, or adverse effects. If you have questions about the drugs you are taking, check with your doctor, nurse or pharmacist. Copyright 2097-9616 [employer]. Version: 08.16. Revision Date: 10/16/2017. formoterol and [...] may report side effects to FDA at 7-041-HAB-3581. What other drugs will affect formoterol and [...] affect formoterol and mometasone, including prescription and swfk-qrg-vyhwges medicines, vitamins, and herbal products. Not all [...] to ensure that the information provided by [employer]. ('Multum') is accurate, up-to-date, and complete, but no guarantee is made to that effect. Drug information contained herein may be time sensitive. Soleil Insulationum information has been compiled for use by healthcare practitioners and consumers in the [place] and therefore Bundle Buy does not warrant that uses outside of the [place] are appropriate, unless specifically indicated otherwise. Bundle Buy's drug information does not endorse drugs, diagnose patients or recommend therapy. Bundle Buy's drug information is an informational resource designed [...] effective or appropriate for any given patient. [facility] does not assume any responsibility for any aspect of healthcare administered with the aid of information [facility] provides. The information contained herein is not intended to cover all possible uses, directions, precautions, warnings, drug interactions, allergic reactions, or adverse effects. If you have questions about the drugs you are taking, check with your doctor, nurse or pharmacist. Copyright 7577-6095 [facility]. Version: 9.. Revision Date: 12/31/2017. saccharomyces boulardii [...] as Logan's Yeast, Martini CBS 5926, Judy Hughes, and Probiotic. Saccharomyces boulardii lyo has been [...] may report side effects to FDA at 9-803-IPD-0962. What other drugs will affect saccharomyces boulardii lyo? Other drugs may interact with saccharomyces boulardii lyo, including prescription and xttm-wzx-qxfjrgw medicines, vitamins, and herbal products. Tell each [...] to ensure that the information provided by [employer] ('Bundle Buy') is accurate, up-to-date, and complete, but no guarantee is made to that effect. Drug information contained herein may be time sensitive. Bundle Buy information has been compiled for use by healthcare practitioners and consumers in the [place] and therefore Bundle Buy does not warrant that uses outside of the [place] are appropriate, unless specifically indicated otherwise. Bundle Buy's drug information does not endorse drugs, diagnose patients or recommend therapy. PercuVisions drug information is an informational resource designed [...] effective or appropriate for any given patient. Bundle Buy does not assume any responsibility for any aspect of healthcare administered with the aid of information Bundle Buy provides. The information contained herein is not intended to cover all possible uses, directions, precautions, warnings, drug interactions, allergic reactions, or adverse effects. If you have questions about the drugs you are taking, check with your doctor, nurse or pharmacist. Copyright 5770-0394 [employer]. Version: 2.03. Revision Date: 09/17/2015. insulin glargine (IN leos gm baker) Cedrick Kaur, Nena Barrett Pen, Gilma Sandoval What is the most [...] What happens if I miss a dose? documented in this encounter Plan of Treatment Not on file documented as of this encounter Visit Diagnoses Not on filedocumented in this encounter
--- OUTSIDE RECORDS SUMMARY | 2025-08-05 07:29 | XMS_ITS | Encounter Summary ---
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
--- OUTSIDE RECORDS SUMMARY | 2025-08-05 07:29 | XMS_ITS | Encounter Summary ---
Author Organization [employer] ([place], [place], [place], [place]) Address [address] [place] [address] Care Team Providers Care Securities And Real Estate Director Name Role Phone Unavailable Primary Care Provider Unavailabl e Encounter Details Date Type Department Care Team (Late st Contact Info) Description 01/07/2019 Transcribed Document [facility] [place] [address] [place] [address] ProviderKentrell MD [facility] [place] [address] Social History Tobacco Use Types Packs/Day Years Used Date Smoking Tobacco: Never Assessed Comments Unknown Sex and Gender Information Value Date Recorded Sex Assigned at Not on file Legal Sex Female 5:31 PM CDT Gender Identity Not on file Sexual Orientation Not on file documented as of this encounter Miscellaneous Notes * Cerner Conversion Note - Kentrell Lorenzo MD - 01/07/2019 1:59 PM CDT Nursing Discharge Summary Entered On: 01/07/2019 14:00 EDT Performed On: 01/07/2019 13:59 EDT by COLT BOLDEN unindentured apprentice Documentation Discharge Date/Time : 01/07/2019 14:17 EDT COLT BOLDEN RN - 01/09/2019 16:08 EDT Education Comment : Patient refused to wait for 02 to be delivered to room dispite explination by Securities Dealer of process and need for o2. 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 SHe has o2 at home, COLT BOLDEN, RN - 01/07/2019 14:18 EDT Patient Disposition, General : Discharge Discharge To : Home with ambulatory/outpatient follow-up Mode Of Departure, General Discharge : Private vehicle Accompanied By, Discharge : Friend IV Discontinued : Yes Medications Given to Patient : No Personal Belongings With Patient : Yes Pt's Own Supply of Medications Returned : No Prescriptions Given to Patient : Yes Discharge Instructions Reviewed With, Opportunity For Questions Given : Patient Patient Education Completed : Yes Number of Prescriptions Given : 7 Teaching Method : Explanation, Printed materials, Teach back method Worker's Compensation Paperwork Completed : No COLT BOLDEN RN - 01/07/2019 13:59 EDT Electronically signed by [facility] Conversion Computer Systems Auditor Cerner at 01/29/2023 9:19 AM CDT documented in this encounter Plan of Treatment Not on file documented as of this encounter Visit Diagnoses Not on filedocumented in this encounter
--- OUTSIDE RECORDS SUMMARY | 2025-08-05 07:29 | XMS_ITS | Encounter Summary ---
Author Organization [employer] ([place], [place], [place], [place]) Address [address] [place] [address] Care Team Providers Care Extension Associate Name Role Phone Unavailable Primary Care Provider Unavailabl e Encounter Details Date Type Department Care Team (Late st Contact Info) Description 01/07/2019 Transcribed Document [facility] [place] Family Medicine [address] [place] [address] ProviderKentrell MD [facility] [place] [address] Social History Tobacco Use Types Packs/Day Years Used Date Smoking Tobacco: Never Assessed Comments Unknown Sex and Gender Information Value Date Recorded Sex Assigned at Not on file Legal Sex Female 5:31 PM CDT Gender Identity Not on file Sexual Orientation Not on file documented as of this encounter Miscellaneous Notes * Cerner Conversion Note - Kentrell Lorenzo MD - 01/07/2019 8:39 AM CDT Patient: MARICEL IGLESIAS MRN: - Age: 63 Years Sex: Female : 1955 Assessment/Plan Rectus sheath hematoma - hgb stable - pain improved - no surgical intervention necessary, ok to dc VTE Prophylaxis - Medical Sequential Compression Device Start: 01/04/19 23:08:00 EDT, Bilateral, Length: Knee High, While patient is in bed, Continuous Order (JEANETTE CABRAL) Subjective pain improved. jerry diet. +flatus and BM Vital Signs Vitals Signs (last 24 hrs) Last Charted Minimum Maximum Temp 98.1 (JAN 07 06:00) 98.1 (JAN 07 06:00) 98.3 (JAN 06 10:00) Apical HR L 54 (JAN 07 08:25) L 54 (JAN 07 08:25) L 54 (JAN 07 08:25) Mon HR 76 (JAN 07 08:32) 54 (JAN 07 06:00) 93 (JAN 06 10:00) Resp Rate 16 (JAN 07 06:00) 16 (JAN 06 17:09) 20 (JAN 06 10:00) SBP 127 (JAN 07 08:25) 117 (JAN 07 02:47) 138 (JAN 06 21:00) DBP 77 (JAN 07 08:25) 66 (JAN 06 21:00) 77 (JAN 07 06:00) MAP 92 (JAN 07 06:00) 82 (JAN 07 02:47) 99 (JAN 06 14:14) SpO2 96 (JAN 06 17:06) 95 (JAN 06 13:57) 96 (JAN 06 17:06) Oxygen Settings (Last) Oxygen Therapy Mode: Nasal cannula (01/07/19 08:34:00 EDT) Oxygen Flow Rate: 2 Liter/Min (01/07/19 08:34:00 EDT) Intake & Output Totals Last 24 Hours (7a-7a) Input Total: 111.99 mL Output Total: 1050 mL Balance: -938.01 mL Physical Exam Gen: NAD Resp: Nonlabored respirations CV: Normal peripheral perfusion Ab: soft, nontender, nondistended Medications amLODIPine, 10 mg= 1 Tab, Oral, Daily Augmentin 875 mg-125 mg oral tablet, 875 mg= 1 Tab, Oral, BID cholecalciferol, 2000 Units= 2 Tab, Oral, Daily doxycycline, 100 mg= 1 Cap, Oral, BID Florastor, 250 mg= 1 Cap, Oral, BID formoterol-mometasone 5 [...] 8 mg= 2 Tab, Oral, Q8H, PRN documented in this encounter Plan of Treatment Not on file documented as of this encounter Visit Diagnoses Not on filedocumented in this encounter
--- OUTSIDE RECORDS SUMMARY | 2025-08-05 07:29 | XMS_ITS | Clinical Summary ---
[facility] Address [address] [place] [address] Care Team Providers Care Stained Glass Window Designer Name Role Phone Robina Downey APRN Primary Care Provider [phone] Allergies Active Allergy Reactions Criticality Noted Date [...] Breakfast. Active vitamin D (ERGOCALCIFEROL) 1.25 MG (72707 UT) capsule capsule Take 2 capsules by [...] 12/03/2022 Non-cardiac chest pain 12/03/2022 Overview (12/05/2022): [facility] admission for chest pain with trivial [...] bridging Lovenox Coronary artery disease invo lving [place] coronary artery of [place] heart with angina pectoris 11/22/2016 Overview (12/05/2022): [...] patent stents. Type 2 diabetes mellitus 04/26/2016 [place]'s disease 04/26/2016 Overview (02/07/2021): Due to chronic prednisone. On chronic prednisone Morbid obesity 04/26/2016 Resolved Problems Problem Noted Date Diagnosed Date Resolved Date Unstable angina 12/03/2022 12/05/2022 Overview (12/04/2022): Added automatically from request for surgery [id number] Acute on chronic respiratory failure with hypoxia [...] (03/22/2021): Added automatically from request for surgery [id number] Acute on chronic congestive heart failure 02/02/2021 [...] history exists Medical Devices Implanted Type Area Planning Advisor Device Identifier Shelf Expiration Date Model / Serial / Lot Implant-02/10/20 16 Implanted:02/09 (Quantity not on file) Implant REVEAL LINQ / [id number] / Implant-02/10/20 16 Implanted:Qty: 1 on 02/10/2016 Implant MEDTRONIC MEDTRONIC LINQ / [id number] / Reveal Linq-02/10/2016 Implanted:02/09 (Quantity not on file) MEDTRONIC LINQ / [id number] / Stnt Xience Carmela Everolimus Simba 4x38mm - [id number] Implanted:Qty: 1 on 02/02/2021 by Jake Pradhan IV, MD at [facility] [id number] / / [id number] Stnt Xience Carmela Everolimus Simba 2.5x28mm - [id number] Implanted:Qty: 1 on 02/02/2021 by Jake Pradhan IV, MD at [facility] VASCULAR [id number] / / [id number] Procedures Procedure Name Priority Date/Time Associated Diagnosis Comments LIPID PANEL Routine 12/06/2022 11:00 AM EST HEMOGLOBIN A1C Add-On 12/05/2022 7:39 AM EST POCT OCCULT BLOOD STOOL STAT 10/10/2017 3:27 AM EST from Last 3 Months or Most Recently Relevant to Health Maintenance Results * Lipid Panel (12/06/2022 11:00 AM EST) Total Cholesterol 106 0 - 200 mg/dL 12/06/2022 12:14 PM EST [facility] Triglycerides 114 0 - 150 mg/dL 12/06/2022 12:14 PM EST [facility] HDL Cholesterol 41 40 - 60 mg/dL 12/06/2022 12:14 PM EST [facility] LDL Cholesterol 44 0 - 100 mg/dL 12/06/2022 12:14 PM EST [facility] VLDL Cholesterol 21 5 - 40 mg/dL 12/06/2022 12:14 PM EST [facility] LDL/HDL Ratio 1.03 12/06/2022 12:14 PM EST [facility] Blood Venipuncture / Unknown 12/06/2022 11:00 AM EST 12/06/2022 11:33 AM EST Narrative [facility] - 12/06/2022 12:14 PM [...] MD LAB BLOOD ORDERABLES Final Res ult [facility]
[address] [place] [address], * (ABNORMAL) Hemoglobin A1c (12/05/2022 7:39 AM EST) Hemoglobin A1C 8.10(H) 4.80 - 5.60 % 12/05/2022 11:03 AM EST [facility] Blood Venipuncture / Unknown 12/05/2022 7:39 AM EST 12/05/2022 7:48 AM EST Narrative [facility] - 12/05/2022 11:03 AM EST Hemoglobin A1C Ranges: Increased Risk for Diabetes 5.7% to 6.4% Diabetes >= 6.5% Diabetic Goal < 7.0% Shay Trujillo PA-C LAB BLOOD ORDERABLES Final R esult [facility]
[address] [id number], * POCT Occult Blood, stool (10/10/2017 3:27 AM EST) Fecal Occult Blood Negative Negative [facility] Lot Number [id number] [facility] Expiration Date 2019 [facility] DEVELOPER LOT NUMBER [id number] [facility] DEVELOPER EXPIRATION DATE 2019 [facility] Positive Control Positive Positive [facility] Negative Control Negative Negative [facility] Stool Specimen from rectum / Unknown 10/10/2017 3:27 AM EST Sb Kitchen MD POINT OF CARE TEST ORDERABLE S Final Result [facility]
[address] [place] [address], from Last 3 Months or Most Recently [...] Of Support Discussed With: Patient Care Teams Stained Glass Window Designer Relationship Specialty Start Date End Date Robina Downey APRN [address] [place] [address] PCP - General Nurse Practitioner 07/19/19
--- OUTSIDE RECORDS SUMMARY | 2025-08-05 07:29 | XMS_ITS | Encounter Summary ---
Author Organization [employer] ([place], [place], [place], [place]) Address [address] [place] [address] Care Team Providers Care Service Agent Name Role Phone Unavailable Primary Care Provider Unavailabl e Encounter Details Date Type Department Care Team (Late st Contact Info) Description 01/07/2019 Transcribed Document [facility] [place] Family Medicine [address] [place] [address] ProviderKentrell MD [address] [place] [address] Social History Tobacco Use Types Packs/Day Years Used Date Smoking Tobacco: Never Assessed Comments Unknown Sex and Gender Information Value Date Recorded Sex Assigned at Not on file Legal Sex Female 5:31 PM CDT Gender Identity Not on file Sexual Orientation Not on file documented as of this encounter Miscellaneous Notes * Cerner Conversion Note - Kentrell Lorenzo MD - 01/07/2019 2:22 PM CDT [address] , [place] [address] Patient Copy Patient Information: Name: MARICEL IGLESIAS Current Date: 01/07/2019 14:22:05 : 1955 Patient Address: [place] [address] Patient Attending Physician: CARLOS LANDIN DO Primary Care Provider: OSITO LARSEN (REF[facility] Primary Care Provider Discharge Diagnosis: Weakness Weight on Admission: 223 lb, 0 oz Weight at Discharge: 218 lb Comment: Follow-up Instructions: With: Address: When: March [address] [facility], [address] [place], [place] [id number] Business (1) Within 2 to 3 days Comments: Please call to make a 1-2 week follow-up appointment with the rn admissions. With: Address: When: Follow up with specialist Within 1 week Comments: Please have your structural design engineer to refer you to a artificial flowers dyer within 1-2 weeks. With: Address: When: OSITO LARSEN [address] [place] [address], [address] [place] [address] Business (1) 3:30 PM Discharge Instructions: Diet after Discharge: Heart healthy diet, Diabetic diet Activity after Discharge: As tolerated Driving after Discharge: Do not drive Showering/Bathing:May shower Notify Provider of: fever greater than 101.5, increased shortness of air at rest, blood sugars than remain above 200 consistently in a 24 hour period. Medical Equipment for Home Use: [facility] Home Health Services: [facility] [phone] Immunizations Documented During Stay: No Immunizations Found [...] 09/13/2009 Document Revised: 10/22/2015 Document Reviewed: 11/26/2014 [employer] Interactive Patient Education ? 2017 [employer] How to Take a Pulse Your [...] 04/06/2004 Document Revised: 04/20/2017 Document Reviewed: 03/06/2017 [employer] Interactive Patient Education ? 2017 [employer] Smoking Hazards Smoking cigarettes is extremely [...] contain harmful chemicals. FOR MORE INFORMATION ??? [place] [employer]: www.lung.org ??? [place] [employer]: www.cancer.org This information is not intended to replace advice given to you by your health care provider. Make sure you discuss any questions you have with your health care provider. Document Released: 11/08/2005 Document Revised: 01/22/2017 Document Reviewed: 03/23/2014 [employer] Interactive Patient Education ? 2017 [employer] Diabetes Mellitus and Standards of Medical Care Managing diabetes (diabetes mellitus) can be complicated. Your diabetes treatment may be managed by a team of health care providers, including: ??? A diet and crime victim specialist (registered dietitian). ??? A nurse. ??? A certified phlebotomist (CDE). ??? A office specialist (reconstructive surgeon). ??? An eye doctor. ??? A primary [...] 07/29/2010 Document Revised: 06/29/2017 Document Reviewed: 06/29/2017 [employer] Interactive Patient Education ? 2017 [employer] Diabetes Mellitus and Sick Day Management [...] lot of sugar. Take medicines as directed??? Eauq-lfhm-hqm-counter and prescription medicines only as told by [...] 10/03/2004 Document Revised: 06/29/2017 Document Reviewed: 06/29/2017 [employer] Patient Education ? 2017 [employer] Weakness Weakness is a lack of [...] 07/21/2016 Elsevier Interactive Patient Education ? 2017 [employer]. Medication Leaflets: amoxicillin and clavulanate potassium (am [...] may report side effects to FDA at 4-161-PMK-1422. What other drugs will affect amoxicillin and clavulanate potassium? Tell your doctor about all your current medicines and any you start or stop using, especially: ? allopurinol; ?? probenecid; or ?? a blood thinner--warfarin, Coumadin, Jantoven. This list is not complete. Other drugs may interact with amoxicillin and clavulanate potassium, including prescription and attd-dpt-npnatwk medicines, vitamins, and herbal products. Not all [...] to ensure that the information provided by [employer] ('[employer]') is accurate, up-to-date, and complete, but no guarantee is made to that effect. Drug information contained herein may be time sensitive. [employer] information has been compiled for use by healthcare practitioners and consumers in the [place] and therefore [employer] does not warrant that uses outside of the [place] are appropriate, unless specifically indicated otherwise. [employer] drug information does not endorse drugs, diagnose patients or recommend therapy. [employer] drug information is an informational resource designed [...] effective or appropriate for any given patient. [employer] does not assume any responsibility for any aspect of healthcare administered with the aid of information [employer] provides. The information contained herein is not intended to cover all possible uses, directions, precautions, warnings, drug interactions, allergic reactions, or adverse effects. If you have questions about the drugs you are taking, check with your doctor, nurse or pharmacist. Copyright 1973-4255 [employer]. Version: 08.16. Revision Date: 10/16/2017. formoterol and [...] may report side effects to FDA at 2-079-VTL-2448. What other drugs will affect formoterol and [...] affect formoterol and mometasone, including prescription and ckho-hjn-fjdcjxh medicines, vitamins, and herbal products. Not all [...] to ensure that the information provided by [employer] ('[employer]') is accurate, up-to-date, and complete, but no guarantee is made to that effect. Drug information contained herein may be time sensitive. [employer] information has been compiled for use by healthcare practitioners and consumers in the [place] and therefore [employer] does not warrant that uses outside of the [place] are appropriate, unless specifically indicated otherwise. [employer]'s drug information does not endorse drugs, diagnose patients or recommend therapy. [facility] drug information is an informational resource designed [...] effective or appropriate for any given patient. [facility] does not assume any responsibility for any aspect of healthcare administered with the aid of information [facility] provides. The information contained herein is not intended to cover all possible uses, directions, precautions, warnings, drug interactions, allergic reactions, or adverse effects. If you have questions about the drugs you are taking, check with your doctor, nurse or pharmacist. Copyright 4681-6909 [facility]. Version: 9.. Revision Date: 12/31/2017. saccharomyces boulardii [...] may report side effects to FDA at 1-696-WBC-2855. What other drugs will affect saccharomyces boearledii lyo? Other drugs may interact with saccharomyces boulardii lyo, including prescription and budk-lhy-sfuyisy medicines, vitamins, and herbal products. Tell each [...] to ensure that the information provided by [employer] ('[employer]') is accurate, up-to-date, and complete, but no guarantee is made to that effect. Drug information contained herein may be time sensitive. [employer] information has been compiled for use by healthcare practitioners and consumers in the [place] and therefore [employer] does not warrant that uses outside of the [place] are appropriate, unless specifically indicated otherwise. [employer] drug information does not endorse drugs, diagnose patients or recommend therapy. [employer] drug information is an informational resource designed [...] effective or appropriate for any given patient. [employer] does not assume any responsibility for any aspect of healthcare administered with the aid of information [employer] provides. The information contained herein is not intended to cover all possible uses, directions, precautions, warnings, drug interactions, allergic reactions, or adverse effects. If you have questions about the drugs you are taking, check with your doctor, nurse or pharmacist. Copyright 8240-7445 [employer] Version: 2.03. Revision Date: 09/17/2015. insulin glargine [...] you should know that you have diabetes. Electronically signed by Charlotte Sprague Conversion Supervisor Beam Department Ana Lilianer at 01/29/2023 9:25 AM CDT documented in this encounter Plan of Treatment Not on file documented as of this encounter Visit Diagnoses Not on filedocumented in this encounter
--- OUTSIDE RECORDS SUMMARY | 2025-08-05 07:29 | XMS_ITS | Encounter Summary ---
Author Organization [employer] ([place], [place], [place], [place]) Address [address] [place] [address] Care Team Providers Care Cow Trimmer Name Role Phone Unavailable Primary Care Provider Unavailabl e Encounter Details Date Type Department Care Team (Late st Contact Info) Description 01/07/2019 Transcribed Document [facility] [place] [address] [place] [address] ProviderKentrell MD [address] [place], [place] [id number] Social History Tobacco Use Types Packs/Day Years Used Date Smoking Tobacco: Never Assessed Comments Unknown Sex and Gender Information Value Date Recorded Sex Assigned at Not on file Legal Sex Female 5:31 PM CDT Gender Identity Not on file Sexual Orientation Not on file documented as of this encounter Miscellaneous Notes * Cerner Conversion Note - Kentrell Lorenzo MD - 01/07/2019 9:00 AM CDT Pain Assessment Entered On: 01/07/2019 9:58 EDT Performed On: 01/07/2019 9:25 EDT by Lyn Marcus RN Intervention Information: methadone Performed by Lyn Marcus RN on 01/07/2019 08:25:00 EDT methadone,10mg Oral Pain Assessment Pain Assessment : Follow-up assessment Pain Scale Goal : 3 Pain Scale Used : 0-10 Scale Lyn Marcus RN - 01/07/2019 9:58 EDT Pain Scale Intensity : 3 Lyn Marcus RN - 01/07/2019 9:58 EDT Image 4 - Images currently included in the form version of this document have not been included in the text rendition version of the form. documented in this encounter Plan of Treatment Not on file documented as of this encounter Visit Diagnoses Not on filedocumented in this encounter
--- OUTSIDE RECORDS SUMMARY | 2025-08-05 07:29 | XMS_ITS | Encounter Summary ---
Author Organization [employer] ([place], [place], [place], [place]) Address [address] [place] [address] Care Team Providers Care Jigsawyer Name Role Phone Unavailable Primary Care Provider Unavailabl e Encounter Details Date Type Department Care Team (Late st Contact Info) Description 01/05/2019 Transcribed Document [facility] Pulm & Critical Care Medicine [address] [place] [address] [place] [id number] [place] [address] [place] [address] [address] [place] [address] Social History Tobacco Use Types Packs/Day Years Used Date Smoking Tobacco: Never Assessed Comments Unknown Sex and Gender Information Value Date Recorded Sex Assigned at Not on file Legal Sex Female 5:31 PM CDT Gender Identity Not on file Sexual Orientation Not on file documented as of this encounter Miscellaneous Notes * Cerner Conversion Note - Hi Bustillos MD - 01/05/2019 1:35 AM EDT Patient: MARICEL IGLESIAS Age: 63 years Sex: Female : 1955 Associated Diagnoses: None Author: HI BUSTILLOS MD Basic Information Pulmonary/Critical Care Consultation Date of consult:01/05/19 Date of admission: 01/05/19 Requesting physician: Ponce Reason for consult: asthma, resp failure Chief complaint: SOB History of present illness: Patient is a 63-year-old female with a complicated past medical history including ITP status post splenectomy, undifferentiated hypercoagulable state with multiple DVTs and PEs on chronic Coumadin therapy, and asthma was transferred to [facility] from [facility] for pulmonology evaluation. The patient follows with Dr.Theresa Stanton with pulmonology for last several years due to reactive airway disease/asthma. She has had multiple pulmonary infections over last several years, including an admission in October at [facility] with Influenza and pneumonia, since which time she has been on oxygen. She reports this past weekend, she began to feel more short of breath, with severe dyspnea on exertion and oxygen desaturations into the 60s with exertion. She presented to [facility] this past Sunday, and was admitted [...] a rectus sheath hematoma. Her physician at [facility] discussed with the patient need for further pulmonology evaluation, and [facility] was on divert where her head refrigeration engineer is. Patient reports that her head refrigeration engineer told her if she ever got sick again, that she would likely require bronchoscopy, so she was transferred to [facility] for pulmonary evaluation. Past medical history: Asthma ITP status post splenectomy PUD Hyperlipidemia Obesity Hypercoagulable state PE/DVT The reason metastatic to IBS Depression Anxiety Surgical history: Splenectomy IVC filter Right breast biopsy T8 H with BSO Cholecystectomy Pancreatic pseudocyst drainage Bilateral carpal tunnel Lavon fundoplication Right knee surgery Lung biopsy at Family history: Family history of lung cancer and heart disease Social history: Patient lives at home. Nonsmoker No drugs or alcohol use. Review of Systems Constitutional: Weakness, Fatigue, Decreased activity, No fever, No chills. Ear/Nose/Mouth/Throat: No nasal congestion, No sore throat. Respiratory: Shortness of breath, Cough, No sputum production, No wheezing. Cardiovascular: Chest pain (Occasionally with deep breaths), No palpitations, No tachycardia. Gastrointestinal: Abdominal pain, No nausea, No vomiting. Genitourinary: No dysuria, No hematuria. Hematology/Lymphatics: No bruising tendency, No bleeding tendency. Endocrine: No excessive thirst. Immunologic: Not immunocompromised. Neurologic: Alert and oriented X4. Psychiatric: No anxiety, No depression. Health Status Allergies: Allergic Reactions (Selected) Severity Not Documented Albuterol- No reactions were documented. Levaquin- No reactions were documented. NSAIDs- No reactions were documented. Nubain- No reactions were documented. SulfADIAZINE- No reactions were documented., Allergies (2) Active Reaction Levaquin None Documented Nubain None Documented Current medications: (Selected) Inpatient Medications Ordered Lasix: 20 mg, Oral, Daily Metoprolol Succinate ER: 25 mg, Oral, Daily MiraLax: 17 Gram, Oral, Daily, PRN: Constipation Nitrostat: 0.4 mg, SubLINgual, Q5Min, PRN: Chest Pain PROzac: 20 mg, Oral, Daily Phenergan: 6.25 mg, IntraVENous, Q6H, PRN: Nausea ProAir HFA: 1 Puff, Inhalation, QID, PRN: Dyspnea Spiriva: 18 mcg, Inhalation, Daily Tylenol: 650 mg, Oral, Q4H, PRN: Fever Zofran: 4 mg, IV Push, Q4H, PRN: Nausea Zofran: 8 mg, Oral, Q8H, PRN: Nausea/Vomiting amLODIPine: 10 mg, Oral, Daily cholecalciferol: 2,000 Units, Oral, Daily formoterol-mometasone 5 mcg-200 mcg/inh inhalation aerosol: 2 Puff, Inhalation, RT_BID gabapentin: 900 mg, Oral, TID insulin lispro sliding scale: Scale D:, SubCutaneous, AC and at Bedtime levothyroxine: 50 mcg, Oral, Daily methaDONE: 20 mg, Oral, QID morphine: 2 mg, IV Push, Q2H, PRN: Pain (Severe 7-10) pantoprazole: 40 mg, Oral, Daily Incomplete calcium-vitamin D 500 mg-200 intl units oral tablet: 1 Tab, Oral, Daily Prescriptions Prescribed Advair Diskus 250 [...] Refill(s) azithromycin 500 mg intravenous injection: IntraVENous, [id number], 0 Refill(s) aztreonam 1 g injection: IntraVENous, [...] tablet: 1 Tab, Oral, At Bedtime, 0 Refill(s) Physical Examination VS/Measurements No qualifying data available General: Alert and oriented, No acute distress. Eye: Pupils are equal, round and reactive to light, Extraocular movements are intact, Normal conjunctiva. HENT: Normocephalic. Neck: Supple, No carotid bruit. Respiratory: Respirations are non-labored, Breath sounds are equal, Bilateral coarse breath sounds throughout with bilateral crackles, no wheezing, no stridor, no distress. Support: Oxygen ( 2 L/min ). Cardiovascular: Normal rate, Regular rhythm, S1, S2, No edema. Gastrointestinal: Soft, obese, nondistended, generalized tenderness throughout (patient has hematoma on CT scan). Musculoskeletal: Normal range of motion, No swelling, No deformity. Integumentary: Warm, Intact. Neurologic: Alert, Oriented, No focal deficits. Psychiatric: Cooperative, Appropriate mood & affect. Review / Management Results review: Labs (Last four charted values) WBC H 24.1 (JAN 05) H 23.4 (JAN 04) HB L 8.0 (JAN 05) L 8.2 (JAN 04) HCT L 26.6 (JAN 05) L 26.9 (JAN 04) Plt H 385 (JAN 05) H 404 (JAN 04) Na 140 (JAN 05) 139 (JAN 04) K 4.1 (JAN 05) 3.9 (JAN 04) Cl 104 (JAN 05) 104 (JAN 04) CO2 H 33 (JAN 05) H 33 (JAN 04) BUN 16 (JAN 05) 16 (JAN 04) Cr 0.70 (JAN 05) 0.80 (JAN 04) Glu R H 188 (JAN 05) H 274 (JAN 04) Ca 8.6 (JAN 05) 8.6 (JAN 04) Lactic 1.6 (JAN 04) PT H 29.9 (JAN 04) INR H 2.8 (JAN 04) AST 11 (JAN 05) 8 (JAN 04) ALT 14 (JAN 05) L 10 (JAN 04) ALK P 83 (JAN 05) 102 (JAN 04) T Bili 0.2 (JAN 05) 0.2 (JAN 04) PTN 6.4 (JAN 05) 6.6 (JAN 04) ALB L 2.9 (JAN 05) L 3.1 (JAN 04) . Blood Gases (Current Encounter/Past 24 Hours) No Blood Gas Results Found (Past 24 Hours) Radiology Results (Last 48 hours) [id number] -- 01/04/2019 21:58 CR Chest 1 Vw [...] sheath and right pelvic hematomas as above. Impression and Plan Acute on Chronic Hypoxemic Respiratory failure Bilateral diffuse interstitial opacities CAP Rhinovirus pna History of multiple hospital admissions with intubation at in 1999 Lung bx at , patient states was negative Patient follows with Dr. Gayle Stanton, [facility] pulmonology Hematology/oncology Neutrophilic leukocytosis Hypercoagulable state, on chronic Coumadin therapy Multiple unprovoked DVT/PE, status post IVC filter ITP status post splenectomy in 1986 History of endometrial cancer GI/nutrition Right rectus sheath hematoma, 7.5??4.3 cm hematoma, extending [address] Obesity Endocrinology Type 2 diabetes mellitus Hypothyroidism on chronic Synthroid Renal Stable, Normal BUN/SCr Plan: Supplemental O2, 2l at home Wean for sat >90%-96% NEbs prn Dulera nebs BID Encourage incentive spirometry Sputum culture Respiratory panel + Rhinovirus Will place on zosyn and doxycycline for now Monitor cultures and de-escalate antibiotics appropriately Protonix for GI prophylaxis Prednisone 40 mg daily x 5 days Mckay kaye Discussed with patient to have a follow up CT chest in 6-8 weeks with her head refrigeration engineer at [facility] documented in this encounter Plan of Treatment Not on file documented as of this encounter Visit Diagnoses Not on filedocumented in this encounter
--- OUTSIDE RECORDS SUMMARY | 2025-08-05 07:29 | XMS_ITS | Encounter Summary ---
Author Organization [employer] ([place], [place], [place], [place]) Address [address] [place] [address] Care Team Providers Care Grape Picker Name Role Phone Unavailable Primary Care Provider Unavailabl e Encounter Details Date Type Department Care Team (Late st Contact Info) Description 01/07/2019 Transcribed Document [facility] [place] Family Medicine [address] [place] [address] ProviderKentrell MD [address] [place] [id number] Social History Tobacco Use Types Packs/Day Years Used Date Smoking Tobacco: Never Assessed Comments Unknown Sex and Gender Information Value Date Recorded Sex Assigned at Not on file Legal Sex Female 5:31 PM CDT Gender Identity Not on file Sexual Orientation Not on file documented as of this encounter Miscellaneous Notes * Cerner Conversion Note - Kentrell Lorenzo MD - 01/07/2019 12:28 PM CDT Care Management Assessment/Plan Entered On: 01/07/2019 13:54 EDT Performed On: 01/07/2019 13:52 EDT by LUCIE PATTERSON Social Worker Care Management Note Care Management Note : Continue to follow for discharge needs and arrangements, chart reviewed, plan is now not to go for rehab placement, but home with home health, orders received and arranged via [facility], they will begin POC upon discharge. O2 for transport in place via [facility] and they are delivering a portable O2 tank for transport to bedside and will not charge patient $50 per Sakina with [facility]. Pt to be transported via family who will assist as needed. LUCIE PATTERSON Social Worker - 01/07/2019 13:56 EDT Documentation Status Complete : Yes LUCIE PATTERSON Mergers And Acquisitions Associate - 01/07/2019 13:52 EDT Discharge Planning Details Discharge Home : Home, self care Discharge Home Care Needs : Occupational therapy, Physical Therapy, snf care Discharge Placement Needs : Home Persons Assisting Patient at Home : Alone Transportation Needs : Car Discharge Dialysis Arrangements : No LUCIE PATTERSON Mergers And Acquisitions Associate - 01/07/2019 13:56 EDT Final Discharge Disposition Note-CM Discharge To Care Management : Home Health Services (Related/SOC within 3 days)-06 Name of Receiving Facility/Provider-CM : [facility] LUCIE PATTERSON Mergers And Acquisitions Associate - 01/07/2019 13:56 EDT Electronically signed by Charlotte Sprague Conversion Waste Management Recycling Technician Cerner at 01/29/2023 9:10 AM CDT documented in this encounter Plan of Treatment Not on file documented as of this encounter Visit Diagnoses Not on filedocumented in this encounter
--- OUTSIDE RECORDS SUMMARY | 2025-08-05 07:29 | XMS_ITS | Encounter Summary ---
Author Organization [employer] ([place], [place], [place], [place]) Address [address] [place] [address] Care Team Providers Care It Compliance Manager Name Role Phone Unavailable Primary Care Provider Unavailabl e Encounter Details Date Type Department Care Team (Late st Contact Info) Description 01/05/2019 Transcribed Document [facility] [place] Family Medicine [address] [place] [address] ProviderKentrell MD [facility] [place] [address] Social History Tobacco Use Types Packs/Day Years Used Date Smoking Tobacco: Never Assessed Comments Unknown Sex and Gender Information Value Date Recorded Sex Assigned at Not on file Legal Sex Female 5:31 PM CDT Gender Identity Not on file Sexual Orientation Not on file documented as of this encounter Miscellaneous Notes * Cerner Conversion Note - Kentrell Lorenzo MD - 01/05/2019 11:33 AM CDT Patient: MARICEL IGLESIAS Age: 63 years Sex: Female : 1955 Associated Diagnoses: None Author: RIP ANDREA MD Subjective Chief complaint. SOB cough resp distress Health Status Allergies: Allergic Reactions (Selected) Severity Not Documented Albuterol- No reactions were documented. Levaquin- No reactions were documented. NSAIDs- No reactions were documented. Nubain- No reactions were documented. SulfADIAZINE- No reactions were documented., Allergies (2) Active Reaction Levaquin None Documented Nubain None Documented Current medications: (Selected) Inpatient Medications Ordered Bumex: 2 mg, Oral, 1-Time Lasix: 20 mg, Oral, Daily Metoprolol Succinate ER: 25 mg, Oral, Daily MiraLax: 17 Gram, Oral, Daily, PRN: Constipation Nitrostat: 0.4 mg, SubLINgual, Q5Min, PRN: Chest Pain Os-Zachary 500 + D: 1 Tab, Oral, Daily PROzac: 20 mg, Oral, Daily Phenergan: 6.25 mg, IntraVENous, Q6H, PRN: Nausea ProAir HFA: 1 Puff, Inhalation, QID, PRN: Dyspnea Tylenol: 650 mg, Oral, Q4H, PRN: Fever Zofran: 4 mg, IV Push, Q4H, PRN: Nausea Zofran: 8 mg, Oral, Q8H, PRN: Nausea/Vomiting Zosyn + Sodium Chloride 0.9% intravenous solution 100 mL: 3.375 Gram, 33.33 mL/Hr, IV Piggyback, Q6HInt amLODIPine: 10 mg, Oral, Daily cholecalciferol: 2,000 [...] (Severe 7-10) pantoprazole: 40 mg, Oral, Daily Prescriptions Prescribed Advair [...] Refill(s) azithromycin 500 mg intravenous injection: IntraVENous, [id number], 0 Refill(s) aztreonam 1 g injection: IntraVENous, [...] azithromycin 500 mg intravenous injection , IntraVENous, [id number] aztreonam 1 g injection , IntraVENous, Q12H [...] 1 Tab, PRN, Oral, Q8H , Medications (24) Active Scheduled: (16) amLODIPine 10 mg tab 10 mg 1 Tab, Oral, Daily bumetanide 1 mg tab 2 mg 2 Tab, Oral, 1-Time calcium 500 mg/vit D 200 int unit tab 1 Tab, Oral, Daily cholecalciferol 1,000 unit tab 2,000 Units 2 Tab, Oral, Daily doxycycline hyclate 100 mg cap 100 mg 1 Cap, Oral, BID FLUoxetine 20 mg cap 20 mg 1 Cap, Oral, Daily furosemide 20 mg tab 20 mg 1 Tab, Oral, Daily gabapentin 300 mg cap 900 mg 3 Cap, Oral, TID glycopyrrolate 15.6 mcg inh cap #6 15.6 mcg 1 Each, Inhalation, RT_BID insulin lispro 1 unit/0.01 mL inj Scale [...] tab 40 mg 1 Tab, Oral, Daily piperacillin-tazobactam + NaCl 0.9% 100 mL 3.375 Gram, IV Piggyback, Q6HInt Continuous: (0) PRN: (8) acetaminophen 325 mg tab 650 mg 2 Tab, Oral, Q4H albuterol 90 mcg/1 puff inh 6.7 g 1 Puff, Inhalation, QID morphine 2 mg/1 ml inj 2 mg 1 mL, IV Push, Q2H nitroglycerin 0.4 mg tab # 25 btl 0.4 mg 1 Tab, SubLINgual, Q5Min ondansetron 4 mg tab 8 mg 2 Tab, Oral, Q8H ondansetron 4 mg/2 mL inj 4 mg 2 mL, IV Push, Q4H polyethylene glycol 3350 pwd 17 g pkt 17 Gram 1 Packet, Oral, Daily promethazine 25 mg/1 mL inj 6.25 mg 0.25 mL, IntraVENous, Q6H Problem list: No qualifying data available Objective VS/Measurements Vitals Signs (last 24 hrs) Last Charted Minimum Maximum Temp 98 (JAN 05 09:00) 97.8 (JAN 05 02:15) 98.1 (JAN 05 06:21) Apical HR L 58 (JAN 05 09:06) L 58 (JAN 05 09:06) L 58 (JAN 05 09:06) Mon HR 58 (JAN 05 09:00) 52 (JAN 05 02:15) 73 (JAN 05 08:34) Resp Rate 16 (JAN 05 06:21) 16 (JAN 05 06:21) 18 (JAN 05 02:15) SBP H 158 (JAN 05 09:00) H 147 (JAN 05 02:15) H 158 (JAN 05 09:00) DBP 68 (JAN 05 09:00) 68 (JAN 05 09:00) 89 (JAN 05 06:21) MAP 115 (JAN 05:00) 92 (JAN 05 02:15) 115 (JAN 05 09:00) SpO2 96 (JAN 05 08:34) 95 (JAN 05 06:21) 96 (JAN 05 08:34) General: Alert and oriented, Moderate distress. Eye: [...] & affect, Normal judgment. Results Review JAN 05 03:29 140 104 16 / H 188 4.1 H 33 0.70 \ JAN 05 03:29 \ L 8.0 / H 24.1 H 385 / L 26.6 \ JAN 05 03:29 140 104 16 / H 188 4.1 H 33 0.70 \ JAN 05 03:29 \ L 8.0 / H 24.1 H 385 / L 26.6 \ Impression and Plan Acute hypoxemic respiratory [...] coumadin therapy, being bridged with lovenox at [facility] due to subtherapeutic INR - multiple unprovoked [...] Orally labs in am Pulmonary following continue IV Zosyn/Doxycyclin time spent 35 min Electronically signed by Darcie [facility] Conversion Shopper Marketing Manager Cerner at 01/29/2023 9:03 AM CDT documented in this encounter Plan of Treatment Not on file documented as of this encounter Visit Diagnoses Not on filedocumented in this encounter
--- OUTSIDE RECORDS SUMMARY | 2025-08-05 07:29 | XMS_ITS | Encounter Summary ---
Author Organization [email or web address] ([place], [place], [place], [place]) Address [address] [place] [address] Care Team Providers Care Exhibit Electrician Name Role Phone Unavailable Primary Care Provider Unavailabl e Encounter Details Date Type Department Care Team (Late st Contact Info) Description 01/07/2019 Transcribed Document [facility] [place] Family Medicine [address] [place] [address] ProviderKentrell MD [address] [place] [address] Social History Tobacco Use Types Packs/Day Years Used Date Smoking Tobacco: Never Assessed Comments Unknown Sex and Gender Information Value Date Recorded Sex Assigned at Not on file Legal Sex Female 5:31 PM CDT Gender Identity Not on file Sexual Orientation Not on file documented as of this encounter Miscellaneous Notes * Cerner Conversion Note - Kentrell ProviderMD - 01/07/2019 2:00 AM CDT Process Improvement Analyst Details Entered On: 01/07/2019 4:59 EDT Performed On: 01/07/2019 2:00 EDT by Armand Cristobal Rn Order Details Transport Mode Order Detail : Ambulatory Isolation Precautions Order Detail : Contact precautions, Droplet precautions Order Detail : 0 IV Order Detail : 1 Oxygen Order Detail : 0 Nurse Collect Order Detail : 0 Lift/Transfer : Moderate assist Central Line Order Detail : No Room Service : Needs Assistance Arterial Line : No Armand Cristobal, Wesley - 01/07/2019 4:59 EDT documented in this encounter Plan of Treatment Not on file documented as of this encounter Visit Diagnoses Not on filedocumented in this encounter
--- OUTSIDE RECORDS SUMMARY | 2025-08-05 07:29 | XMS_ITS | Encounter Summary ---
Author Organization [employer] ([place], [place], [place], [place]) Address [address] [place] [address] Care Team Providers Care Highway Safety Engineer Name Role Phone Unavailable Primary Care Provider Unavailabl e Encounter Details Date Type Department Care Team (Late st Contact Info) Description 01/05/2019 Transcribed Document [facility] [place] [address] [place] [address] ProviderKentrell MD [address] [place] [address] Social History Tobacco Use Types Packs/Day Years Used Date Smoking Tobacco: Never Assessed Comments Unknown Sex and Gender Information Value Date Recorded Sex Assigned at Not on file Legal Sex Female 5:31 PM CDT Gender Identity Not on file Sexual Orientation Not on file documented as of this encounter Miscellaneous Notes * [employer] Conversion Note - Kentrell ProviderMD - 01/05/2019 5:00 AM CDT Chart Check - Review Order Profile Entered On: 01/05/2019 4:28 EDT Performed On: 01/05/2019 5:00 EDT by Armand Cristobal Rn Chart Check All Active Orders Reviewed : Yes Armand Cristobal Rn - 01/05/2019 4:28 EDT documented in this encounter Plan of Treatment Not on file documented as of this encounter Visit Diagnoses Not on filedocumented in this encounter
--- OUTSIDE RECORDS SUMMARY | 2025-08-05 07:29 | XMS_ITS | Encounter Summary ---
Author Organization [employer] ([place], [place], [place], [place]) Address [address] [place] [address] Care Team Providers Care Roll Dough Divider Name Role Phone Unavailable Primary Care Provider Unavailabl e Encounter Details Date Type Department Care Team (Late st Contact Info) Description 01/05/2019 Transcribed Document [facility] [place] [address] [place] [address] ProviderKentrell MD [address] [place], [place] [id number] Social History Tobacco Use Types Packs/Day Years Used Date Smoking Tobacco: Never Assessed Comments Unknown Sex and Gender Information Value Date Recorded Sex Assigned at Not on file Legal Sex Female 5:31 PM CDT Gender Identity Not on file Sexual Orientation Not on file documented as of this encounter Miscellaneous Notes * Cerner Conversion Note - Kentrell Lorenzo MD - 01/05/2019 9:00 AM CDT Pain Assessment Entered On: 01/05/2019 14:21 EDT Performed On: 01/05/2019 10:06 EDT by Amalia Bryan Rn Intervention Information: methadone Performed by Amalia Bryan Rn on 01/05/2019 09:06:00 EDT methadone,10mg Oral Pain Assessment Pain Scale Used : 0-10 Scale Amalia Bryan Rn - 01/05/2019 14:21 EDT Pain Scale Intensity : 5 Amalia Bryan Rn - 01/05/2019 14:21 EDT Image 4 - Images currently included in the form version of this document have not been included in the text rendition version of the form. documented in this encounter Plan of Treatment Not on file documented as of this encounter Visit Diagnoses Not on filedocumented in this encounter
--- OUTSIDE RECORDS SUMMARY | 2025-08-05 07:29 | XMS_ITS | Encounter Summary ---
Author Organization [employer] ([place], [place], [place], [place]) Address [address] [place] [address] Care Team Providers Care Safety Pin Assembling Machine Operator Name Role Phone Unavailable Primary Care Provider Unavailabl e Encounter Details Date Type Department Care Team (Late st Contact Info) Description 01/05/2019 Transcribed Document [facility] [place] [address] [place] [address] ProviderKentrell MD [address] [place] [address] Social History Tobacco Use Types Packs/Day Years Used Date Smoking Tobacco: Never Assessed Comments Unknown Sex and Gender Information Value Date Recorded Sex Assigned at Not on file Legal Sex Female 5:31 PM CDT Gender Identity Not on file Sexual Orientation Not on file documented as of this encounter Miscellaneous Notes * Cerner Conversion Note - Kentrell Lorenzo MD - 01/05/2019 10:47 AM CDT Rapid Response Team Documentation Entered On: 01/05/2019 10:50 EDT Performed On: 01/05/2019 10:47 EDT by MADHURI CASTRO RN Rapid Response Event Time Rapid Response Team Called : 01/05/2019 9:24 EDT Rapid Response Team Arrival Time : 01/05/2019 9:35 EDT Rapid Response Team Event End Time : 01/05/2019 9:55 EDT Rapid Response Event Intiated By : Hospital Staff Rapid Response Team Initiation Reason : Peripheral IV start Rapid Response Event Location Type : Other: 3 E Rapid Response Team Initiation Reason Details : 311 Rapid Response Admission Diagnosis : Acute respiratory failure, unspecified whether with hypoxia or hypercapnia Acute respiratory failure, unspecified whether with hypoxia or hypercapnia Rapid Response Medical Background : No qualifying problems Rapid Response Allergies : Substance Category Reactions Severity albuterol Levaquin Drug NSAIDs Drug Nubain Drug sulfADIAZINE Drug Rapid Response Recent Vital Signs : 01/05/2019 09:00 Systolic Blood Pressure 158 01/05/2019 09:00 Diastolic Blood Pressure 68 01/05/2019 09:00 Heart Rate Monitored 58 01/05/2019 09:06 Heart Rate, Apical 58 01/05/2019 06:21 Respiratory Rate 16 01/05/2019 09:00 Temperature, Fahrenheit 98 01/05/2019 08:34 Oxygen Saturation 96 Rapid Response Recent Lab Results : 01/05/2019 03:29 Sodium Level 140 (136-146) 01/05/2019 03:29 Potassium Level 4.1 (3.5-5.1) 01/05/2019 03:29 Calcium Level 8.6 (8.4-10.1) 01/04/2019 22:35 eAVG Glucose NA 206 01/05/2019 05:39 Glucose POC2 HI 143 (70-110) 01/05/2019 03:29 Chloride Level 104 (102-112) 01/05/2019 03:29 Carbon Dioxide Level HI 33 (21-32) 01/05/2019 03:29 Blood Urea Nitrogen 16 (7-22) 01/05/2019 03:29 Creatinine Level 0.70 (0.55-1.02) 01/04/2019 22:35 PT HI 29.9 (9.6-12.0) 01/04/2019 22:35 INR HI 2.8 (0.9-1.1) 01/04/2019 22:35 Hgb A1C HI 8.80 (4.20-6.30) 01/05/2019 03:29 Hgb LOW 8.0 (11.2-15.7) 01/05/2019 03:29 Hct LOW 26.6 (34.1-44.9) 01/05/2019 03:29 RBC LOW 2.96 (3.93-5.22) 01/05/2019 03:29 WBC HI 24.1 (4.5-10.5) 01/05/2019 03:29 Platelet Count HI 385 (163-369) 01/04/2019 22:35 Lactic Acid Level 1.6 (0.4-2.0) Weight/BMI : Clinical Weight/BMI CLINICALWEIGHT: 101.36 kg (01/04/19 21:56:00) Body Mass Index: 46.7 kg/m2 Critical (01/04/19 21:56:00) Rapid Response Team Recommendation/Response : Attempted to start power 22 gauge IV x 2 without success Patient Condition at End of Event : No S/S of Acute Distress Patient Disposition Post Event : No change in location/level of care Rapid Response Safety Pin Assembling Machine Operator #1 : MADHURI CASTRO RN MADHURI CASTRO RN - 01/05/2019 10:47 EDT documented in this encounter Plan of Treatment Not on file documented as of this encounter Visit Diagnoses Not on filedocumented in this encounter
--- OUTSIDE RECORDS SUMMARY | 2025-08-05 07:29 | XMS_ITS | Encounter Summary ---
Author Organization [email or web address] ([place], [place], [place], [place]) Address [address] [place] [address] Care Team Providers Care Business Law Teacher Name Role Phone Unavailable Primary Care Provider Unavailabl e Encounter Details Date Type Department Care Team (Late st Contact Info) Description 01/07/2019 Transcribed Document [facility] [place] [address] [place] [address] ProviderKentrell MD [address] [place] [address] Social History Tobacco Use Types Packs/Day Years Used Date Smoking Tobacco: Never Assessed Comments Unknown Sex and Gender Information Value Date Recorded Sex Assigned at Not on file Legal Sex Female 5:31 PM CDT Gender Identity Not on file Sexual Orientation Not on file documented as of this encounter Miscellaneous Notes * Cerner Conversion Note - Kentrell Lorenzo MD - 01/07/2019 12:35 PM CDT Discharge Instructions Entered On: 01/07/2019 12:36 EDT Performed On: 01/07/2019 12:35 EDT by NAM OCONNOR RP KATERIN Instructions [facility]WD Medical Equipment For Home Use : [facility] : [facility] [phone] LUCIE PATTERSON, Financial Underwriter - 01/07/2019 14:02 EDT Stroke/TIA Discharge Ins : N/A Heart Failure Discharge Ins : N/A Warfarin Discharge Ins : Open Diet After Discharge : Heart healthy diet, Diabetic diet Activity After Discharge : As tolerated Driving After Discharge : Do not drive Showering/Bathing : May shower Notify Provider of : fever greater than 101.5, increased shortness of air at rest, blood sugars than remain above 200 consistently in a 24 hour period. COLT BOLDEN RN - 01/07/2019 14:00 EDT Special Instructions : Please STOP taking Warfarin until further instructions from primary care doctor at the follow up appointment in 2-3 days NAM OCONNOR [facility] - 01/07/2019 12:35 EDT Warfarin Discharge Instructions Physician to Manage Warfarin : You will follow-up with your PCP as to when to resume your Warfarin Last INR Result : INR: 2.8 (High), Reference Range: (0.9 - 1.1), 01/04/2019 10:35 PM DIAGNOSIS THERAPEUTIC RANGE a) Primary and secondary prevention of 2.0-3.0 venous thrombosis b) Active venous thrombosis, pulmonary 2.0-4.0 embolism and prevention of recurrent venous thrombosis c) Prevention of arterial thromboembolism 3.0-4.5 including patients with mechanical heart valves Notify Provider of Signs/Symptoms of : Significant bleeding, Clot COLT BOLDEN RN - 01/07/2019 14:00 EDT documented in this encounter Plan of Treatment Not on file documented as of this encounter Visit Diagnoses Not on filedocumented in this encounter
--- OUTSIDE RECORDS SUMMARY | 2025-08-05 07:29 | XMS_ITS | Encounter Summary ---
Author Organization [employer] ([place], [place], [place], [place]) Address [address] [place] [address] Care Team Providers Care Boarding Machine Operator Name Role Phone Unavailable Primary Care Provider Unavailabl e Encounter Details Date Type Department Care Team (Late st Contact Info) Description 01/10/2019 Transcribed Document [facility] [place] Medicine [address] [place] [address] ProviderKentrell MD [address] [place] [address] Social History Tobacco Use Types Packs/Day Years Used Date Smoking Tobacco: Never Assessed Comments Unknown Sex and Gender Information Value Date Recorded Sex Assigned at Not on file Legal Sex Female 5:31 PM CDT Gender Identity Not on file Sexual Orientation Not on file documented as of this encounter Miscellaneous Notes * Adal Conversion Note - Kentrell Lorenzo MD - 01/10/2019 4:35 PM CDT Post Visit Phone Call Entered On: 01/10/2019 16:37 EDT Performed On: 01/10/2019 16:35 EDT by Brandie Yang Rn Post Visit Phone Call Post Visit Phone Call History : First call, Other: Call back another time Contact Relationship to Patient : Self Contact Name : Brandie Treviño Rn - 01/10/2019 16:35 EDT Electronically signed by Charlotte Sprague Conversion Straightening Machine Operator Adal at 01/29/2023 9:24 AM CDT documented in this encounter Plan of Treatment Not on file documented as of this encounter Visit Diagnoses Not on filedocumented in this encounter
--- OUTSIDE RECORDS SUMMARY | 2025-08-05 07:29 | XMS_ITS | Clinical Summary ---
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 Phone Bashir Lombardi MD [ ] Conditions or Problems Problem Name Problem Code Onset Date Status Entry Date Provider Comment Standard Description Annotate OBSTRUCTIVE SLEEP APNEA 81755734 (SNOMED CT) 01/01 Inactive 01/01 Sridevi Bishop Obstructive sleep apnea syndrome LONG-TERM (CURRENT) USE OF ANTICOAGULAN TS 722395278 (SNOMED CT) 07/02 Inactive 07/02 Sridevi Nordan Anticoagulant drug monitoring COPD 38197112 (SNOMED CT) 10/24 Active 10/24 Sridevi Nordan Chronic obstructive pulmonary disease Headache 12614378 (SNOMED CT) 10/24 Active 10/24 Sridevi Nordan Headache Hypoxia 607484409 (SNOMED CT) 10/24 Active 10/24 Sridevi Nordan Hypoxia Pneumonia 852445678 (SNOMED CT) 10/24 Active 10/24 Sridevi Nordan Pneumonia CHRONIC OSTEOMYELITI S RIGHT KNEE M86.669 (ICD-10-CM ) 01/01 Inactive 11/24 Sridevi Dario Other chronic osteomyelitis, unspecified tibia and fibula CHRONIC RIGHT KNEE PAIN M25.569 (ICD-10-CM ) 07/02 Inactive 07/02 Sridevi Nordroselia Pain in unspecified knee PRIMARY HYPERCOAGULA BLE STATE 36862027 (SNOMED CT) 07/02 Inactive 07/02 Sridevi Nordroselia Hypercoagulabil ity state HX OF SPLENECTOMY 216287144 (SNOMED CT) 11/24 Inactive 11/24 Sridevi Bishop H/O splenectomy ANXIETY 522304420 (SNOMED CT) 07/02 Inactive 07/02 Sridevi Edyroselia Anxiety disorder LONG-TERM (CURRENT) USE OF ANTICOAGULAN TS 077782595 (SNOMED CT) 07/02 Removed 07/02 Gisselle W Anticoagulant drug monitoring PRIMARY HYPERCOAGULA BLE STATE 96249127 (SNOMED CT) 07/02 Removed 07/02 Gisselle W Hypercoagulabil ity state COUMADIN THERAPY 513764170 (SNOMED CT) 11/24 Correction 11/24 Gisselle W Warfarin therapy started DM II E11.9 (ICD-10-CM ) 01/01 Active 01/01 Gisselle W Type 2 diabetes mellitus without complications ANXIETY 126968337 (SNOMED CT) 07/02 Removed 07/02 Sheron Patel RN Anxiety disorder CHRONIC RIGHT KNEE PAIN M25.569 (ICD-10-CM ) 07/02 Removed 07/02 Sheron Patel RN Pain in unspecified knee WHEEZING 94634384 (SNOMED CT) 01/01 Resolved 01/01 Sheron Patel RN Wheezing PNEUMONIA 858922972 (SNOMED CT) 01/01 Resolved 01/01 Sheron Patel RN Pneumonia ACUTE URI 98560927 (SNOMED CT) 01/01 Resolved 01/01 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 upper respiratory infection OBSTRUCTIVE SLEEP APNEA 37226457 (SNOMED CT) 01/01 Removed 01/01 Gisselle W Obstructive sleep apnea syndrome ACUTE URI 45423181 (SNOMED CT) 01/01 Removed 01/01 Gisselle W Acute upper respiratory infection BORDERLINE DM II E11.9 (ICD-10-CM ) 01/01 Correction 01/01 W Type 2 diabetes mellitus without complications CHRONIC OSTEOMYELITI S RIGHT KNEE M86.669 (ICD-10-CM ) 01/01 Removed 11/24 Gisselle W Other chronic osteomyelitis, unspecified tibia and fibula PNEUMONIA 951132200 (SNOMED CT) 01/01 Removed 01/01 Gisselle W Pneumonia WHEEZING 21847921 (SNOMED CT) 01/01 Removed 01/01 Gisselle W Wheezing RIGHT KNEE INFECTION 682.6 (ICD-9-CM) 11/24 Resolved 11/24 Gisselle W Cellulitis and abscess of leg, except foot CIRRHOSIS OF LIVER WITHOUT MENTION OF ALCOHOL (SNOMED CT) 11/24 Resolved 11/24 Gisselle W Cirrhosis of liver PRIMARY HYPERCOAGULA BLE STATE 22196367 (SNOMED CT) 11/24 Correction 11/24 Gisselle W Hypercoagulabil ity state SECONDARY HYPERCOAGULA BLE STATE 19067860 (SNOMED CT) 11/24 Correction 11/24 Gisselle W Hypercoagulabil ity state CHRONIC OSTEOMYELITI S, LOWER LEG 375724898 (SNOMED CT) 11/24 Correction 11/24 Karina Sanford Chronic osteomyelitis of lower leg RIGHT KNEE INFECTION 682.6 (ICD-9-CM) 11/24 Removed 11/24 Karina Sanford Cellulitis and abscess of leg, except foot LEUKOCYTOSIS 552235727 (SNOMED CT) 11/24 Active 11/24 Karina Sanford Leukocytosis HX OF MRSA Z86.14 (ICD-10-CM ) 11/24 Active 11/24 Karina Sanford Personal history of Methicillin resistant Staphylococcus aureus infection SECONDARY HYPERCOAGULA BLE STATE 88559801 (SNOMED CT) 11/24 Removed 11/24 Karina Sanford Hypercoagulabil ity state PRIMARY HYPERCOAGULA BLE STATE 51572315 (SNOMED CT) 11/24 Removed 11/24 Karina Sanford Hypercoagulabil ity state COUMADIN THERAPY 943060800 (SNOMED CT) 11/24 Removed 11/24 Karina Sanford Warfarin therapy started HX OF SPLENECTOMY 473607845 (SNOMED CT) 11/24 Removed 11/24 Karina Sanford H/O splenectomy CIRRHOSIS OF LIVER WITHOUT MENTION OF ALCOHOL (SNOMED CT) 11/24 Removed 11/24 Karina Sanford Cirrhosis of liver Medications Medication Instructions Start Date Stop Date Generic Name [facility] Provider DOXYCYCLINE HYCLATE 100 MG CAPS DOXYCYCLINE HYCLATE 94303455237 Anetra D Ludmila PROVENTIL HFA 108 (90 Base) MCG/ACT INHALATION AEROSOL SOLUTION ALBUTEROL SULFATE 56314633414 Anetra D Ludmila NYSTATIN OINT NYSTATIN OINT 44128753195 Anetra D Ludmila NORVASC TABS AMLODIPINE BESYLATE TABS 28187941481 Anetra D Ludmila AMLODIPINE BESYLATE 10 MG TABS AMLODIPINE BESYLATE 83011732775 Anetra D Ludmila VITAMIN B-12 TABS CYANOCOBALAMIN TABS 72018283984 Rola Cruz REQUIP 0.5 MG ORAL TABLET ROPINIROLE HCL 15676114345 Rola Cruz PROTONIX 40 MG PACK PANTOPRAZOLE SODIUM 94765598006 Rola Cruz PREDNISONE 2.5 MG TABS PREDNISONE 56775842853 Rola Cruz PERCOCET 10-325 MG TABS OXYCODONE-ACETAM INOPHEN 52565439972 Roal Cruz AMLODIPINE BESYLATE 10 MG TABS AMLODIPINE BESYLATE 98037356989 Rola Cruz NITROSTAT 0.4 MG SUBL NITROGLYCERIN 96242495944 Rola Villalpandoty NEURONTIN 300 MG CAPS GABAPENTIN 23699023308 Rola Villalpandoty METHADONE HCL TABS METHADONE HCL TABS 21585496553 Rola Villalpandoty LORAZEPAM 0.5 MG TABS LORAZEPAM 95299336918 Rola Cruz LEVOTHYROXINE SODIUM 50 MCG TABS LEVOTHYROXINE SODIUM 00049920111 Rola Cruz LASIX 20 MG TABS FUROSEMIDE 44794998473 Rola Cruz VERAMYST 27.5 MCG/SPRAY NASAL SUSPENSION FLUTICASONE FUROATE 99755785046 Rola Cruz CALCIUM-VITAMIN D CALCIUM-VITAMIN D TABS 94795902739 Rola Cruz CALCITONIN (SALMON) 200 UNIT/ACT SOLN CALCITONIN (SALMON) 20472918183 Rola Villalpandoty ASPIRIN 81 MG ORAL TABLET ASPIRIN 28352104539 Rola Cruz PROTONIX 40 MG PACK PANTOPRAZOLE SODIUM 31999954699 Rola Cruz COUMADIN 3 MG ORAL TABLET WARFARIN SODIUM 65562928047 Rola Cruz ACCUNEB NEBU ALBUTEROL SULFATE NEBU 99315943078 Rola Cruz TESSALON PERLES 100 MG ORAL CAPSULE BENZONATATE 41807180773 Rola Cruz DOXYCYCLINE HYCLATE 100 MG CAPS DOXYCYCLINE HYCLATE 51207225169 Rola Cruz VITAMIN B-12 50 MCG TABS CYANOCOBALAMIN 37992524790 Rola Cruz PROTONIX 40 MG TBEC PANTOPRAZOLE SODIUM 33684166563 Rola Cruz AMLODIPINE BESYLATE TABS AMLODIPINE BESYLATE TABS 93252919295 Rola Cruz PROTONIX 40 MG PACK PANTOPRAZOLE SODIUM 18797918768 Rola Cruz AMLODIPINE BESYLATE 10 MG TABS AMLODIPINE BESYLATE 38839428849 Rola Cruz NITROSTAT 0.4 MG SUBL NITROGLYCERIN 14744470867 Rola Cruz LASIX 20 MG TABS FUROSEMIDE 16388351333 Rola Cruz FLONASE 50 MCG/ACT NASAL SUSPENSION FLUTICASONE PROPIONATE 20859621340 Rola Cruz CALCIDOL 8000 UNIT/ML ORAL SOLUTION ERGOCALCIFEROL 64855284903 Rola Cruz CALCIUM-VITAMIN D CALCIUM-VITAMIN D TABS 87860244815 Rola Cruz PREDNISONE 5 MG TABS take two each morning PREDNISONE 87115060736 Rola Cruz SYNTHROID 100 MCG TABS LEVOTHYROXINE SODIUM 17426644752 Rola Cruz TYLENOL 325 MG TABS ACETAMINOPHEN 33949352577 Rolarosa Villalpandoty REQUIP 0.5 MG ORAL TABLET ROPINIROLE HCL 22344738961 Rola Nancy PERCOCET TABS OXYCODONE-ACETAM INOPHEN TABS 13886960180 Rola Cruz NEURONTIN 300 MG CAPS GABAPENTIN 54794380336 Rola Villalpandoty METHADONE HCL TABS METHADONE HCL TABS 96037666265 Rola Cruz ATIVAN TABS LORAZEPAM TABS 81948305119 Rola Cruz COUMADIN TABLET WARFARIN SODIUM TABS 92359933549 Rola Cruz ASPIR-LOW TABLET DELAYED RELEASE ASPIRIN TBEC 50975907380 Rola Cruz ACCUNEB NEBU ALBUTEROL SULFATE [facility] 58648598809 Anetra D Keys TESSALON PERLES 100 MG ORAL CAPSULE BENZONATATE 07725332672 Anetra D Keys DOXYCYCLINE HYCLATE 100 MG CAPS DOXYCYCLINE HYCLATE 72026330496 Anetra D Keys VITAMIN B-12 50 MCG TABS CYANOCOBALAMIN 58647955252 Anetra D Keys PROTONIX 40 MG TBEC PANTOPRAZOLE SODIUM 12091607614 Anetra D Keys AMLODIPINE BESYLATE TABS AMLODIPINE BESYLATE TABS 16013791107 Anetra D Keys PROTONIX 40 MG PACK PANTOPRAZOLE SODIUM 68546149898 Anetra D Keys AMLODIPINE BESYLATE 10 MG TABS AMLODIPINE BESYLATE 17228722200 Anetra D Keys NITROSTAT 0.4 MG SUBL NITROGLYCERIN 56203066043 Anetra D Keys LASIX 20 MG TABS FUROSEMIDE 84415146201 Anetra D Keys FLONASE 50 MCG/ACT NASAL SUSPENSION FLUTICASONE PROPIONATE 69317855094 Anetra D Keys CALCIDOL 8000 UNIT/ML ORAL SOLUTION ERGOCALCIFEROL 56713100933 Anetra D Keys CALCIUM-VITAMIN D CALCIUM-VITAMIN D TABS 87277000328 Anetra D Keys FLUTICASONE PROPIONATE 50 MCG/ACT SUSP FLUTICASONE PROPIONATE 63574619682 Anetra D Keys PREDNISONE 5 MG TABS take two each morning PREDNISONE 50126530978 Bashir Lombardi MD SYNTHROID 100 MCG TABS LEVOTHYROXINE SODIUM 69368294251 Tamia Palm RN PROTONIX 40 MG TBEC PANTOPRAZOLE SODIUM 67195384580 Tamia Palm RN AMLODIPINE BESYLATE 10 MG TABS AMLODIPINE BESYLATE 84841756847 Tamia Palm RN NITROSTAT 0.6 MG SUBL NITROGLYCERIN 74662188448 Tamia Palm RN LEVOTHROID TABS LEVOTHYROXINE SODIUM TABS 75805833407 Tamia Palm RN LASIX TABS FUROSEMIDE TABS 35434172631 Tamia Palm RN CALCIUM 500 TABLET CALCIUM-MAGNESIU M-VITAMIN D TABS 23265746428 Tamia Ladwig RN TYLENOL 325 MG TABS ACETAMINOPHEN 12973457152 Anetra D Keys REQUIP 0.5 MG ORAL TABLET ROPINIROLE HCL 04255663786 Anetra D Keys PROTONIX 40 MG TBEC PANTOPRAZOLE SODIUM 34431829188 Anetra D Keys PERCOCET TABS OXYCODONE-ACETAM INOPHEN TABS 61785437674 Anetra D Keys AMLODIPINE BESYLATE 10 MG TABS AMLODIPINE BESYLATE 28400117741 Anetra D Keys NITROSTAT 0.6 MG SUBL NITROGLYCERIN 48181839129 Anetra D Keys NEURONTIN 300 MG CAPS GABAPENTIN 33592939427 Anetra D Keys METHADONE HCL TABS METHADONE HCL TABS 58318488855 Anetra D Keys ATIVAN TABS LORAZEPAM TABS 27183908611 Anetra D Keys LEVOTHROID TABS LEVOTHYROXINE SODIUM TABS 51893462219 Anetra D Keys LASIX TABS FUROSEMIDE TABS 82514728291 Anetra D Keys FLUTICASONE PROPIONATE 50 MCG/ACT SUSP FLUTICASONE PROPIONATE 29147233258 Anetra D Keys COUMADIN TABLET WARFARIN SODIUM TABS 98423887178 Anetra D Keys CALCIUM 500 TABLET CALCIUM-MAGNESIU M-VITAMIN D TABS 71746558360 Anetra D Keys ASPIR-LOW TABLET DELAYED RELEASE ASPIRIN TBEC 72302380048 Anetra D Kyes Medications Administered No information available. Allergies, Adverse [...] Procedures Code Procedure Name Date Entry Date CPT-91986 CMP CPT-76153 CBC with Differential 11/25 CPT-60790 Sedimentation Rate (ESR) 201 11/26/10 Vital Signs [...]
--- OUTSIDE RECORDS SUMMARY | 2025-08-05 07:29 | XMS_ITS | Encounter Summary ---
Author Organization [employer] ([place], [place], [place], [place]) Address [address] [place] [address] Care Team Providers Care Business Proposal Rep Name Role Phone Unavailable Primary Care Provider Unavailabl e Encounter Details Date Type Department Care Team (Late st Contact Info) Description 01/07/2019 Transcribed Document [facility] [place] [facility] [place] [address] ProviderKentrell MD [address] [place] [address] Social History Tobacco Use Types Packs/Day Years Used Date Smoking Tobacco: Never Assessed Comments Unknown Sex and Gender Information Value Date Recorded Sex Assigned at Not on file Legal Sex Female 5:31 PM CDT Gender Identity Not on file Sexual Orientation Not on file documented as of this encounter Miscellaneous Notes * Cerner Conversion Note - Kentrell Lorenzo MD - 01/07/2019 11:06 AM CDT DATE OF ADMISSION: 01/04/2019 DATE OF DISCHARGE: 01/07/2019 DISCHARGING DIAGNOSES: 1. Pneumonia. 2. Rectus sheath hematoma. 3. Anxiety. 4. Acute hypoxic respiratory failure. 5. Hypercoagulable state. 6. History of chronic Coumadin use. 7. History of multiple deep vein thromboses pulmonary embolism. 8. Status post inferior vena cava filter placement. 9. History of idiopathic thrombocytopenic purpura, status post splenectomy. 10. Diabetes mellitus type 2. 11. Hypothyroidism. 12. Anxiety/depression. 13. Hyperlipidemia. 14. History of endometrial cancer. DISCHARGE INSTRUCTIONS: DIET:: According to [employer]. ACTIVITIES: As tolerated. FOLLOWUP: 1. Followup appointment with primary care physician in three to four days. 2. Followup appointment with GI in one to two weeks. 3. Followup appointment with Heme/Oncology in one to two weeks. DISPOSITION: Home. DISCHARGE MEDICATIONS: 1. Augmentin 875 mg twice daily for 10 days. 2. Vitamin B12 IM monthly. 3. Requip 0.5 mg a day. 4. Spiriva 1 inhalation a day. 5. Albuterol 1-2 puffs q.4-6 h. as needed. 6. Norvasc 10 mg daily. 7. Calcium and vitamin D daily. 8. Vitamin D3 daily. 9. Prozac 20 mg a day. 10. Advair 250/50 twice a day. 11. Lasix 20 mg daily. 12. Gabapentin 300 mg 3 tablets 3 times a day. 13. Levothyroxine 50 mcg a day. 14. Methadone 10 mg 2 tablets 4 times a day. 15. Metoprolol ER 25 mg a day. 16. Nitroglycerin 0.4 mg sublingual as needed. 17. Zofran 8 mg q.8 h. as needed. 18. Prednisone 5 mg a day. 19. Florastor 250 mg twice daily. HISTORY AND HOSPITAL COURSE: This is a 63-year-old female with history of DVT and pulmonary embolism, status post inferior vena cava filter placement. Patient on Coumadin, admitted to the hospital with abdominal pain. 1. Rectus sheath hematoma. Patient is seen by Vascular Surgery. Patient was on Coumadin, which was held. Patient improving. Pain is controlled. Hemoglobin is stable. At discharge, hemoglobin 8.6. 2. History of pulmonary embolism and deep vein thrombosis. Patient with history of inferior vena cava filter placement, on Coumadin, which will be on hold at this point until patient will go to her family doctor. Patient needs to see heme/oncologist for further evaluation. 3. History of chronic Coumadin use. Patient with history of multiple falls, history of hematoma. The patient at risk of serious bleeding. Patient at this point will be off Coumadin until she see her family doctor. 4. Pneumonia. Patient started on IV antibiotics, switched to oral Augmentin, to be continued for 2 more days. 5. Viral pneumonia. Patient was started on supportive management and breathing treatment as needed. 6. Obesity. Recommend diet and exercise. 7. Hyperglycemia. The patient was on sliding scales during hospitalization. Recommend to follow up with the primary care physician. 8. Hypothyroidism. Levothyroxine to be continued. 9. Abdominal pain. Patient had been followed as outpatient with GI. Recommend to follow up as outpatient. 10. Hypercoagulable state. Patient was on Coumadin, which was held because of risk of more bleeding. Patient with history of multiple falls. 11. History of ITP, status post splenectomy done in 1986. 12. All other medical problems, medications to be continued as mentioned. Patient medically stable, to be discharged home today. Recommend patient follow up as outpatient. Her Coumadin on hold at this point because of bleeding and fall. The patient to follow up with her primary care physician for further management. Plan discussed with the patient in detail. Chart was reviewed. TIME SPENT: 40 minutes. Parvin Diaz M.D. Dict: 01/07/2019 11:06:48 Trans: 01/07/2019 11:57:03 CC1: Parvin Diaz M.D. documented in this encounter Plan of Treatment Not on file documented as of this encounter Visit Diagnoses Not on filedocumented in this encounter
--- OUTSIDE RECORDS SUMMARY | 2025-08-05 07:29 | XMS_ITS | Clinical Summary ---
Author Organization [facility] Address [address] [place] [address] Care Team Providers Care Water Tanker Driver Name Role Phone Shayan Robina Vince VELIZ Primary Care Provider + [phone] Allergies Active Allergy Reactions Criticality Noted Date [...] disease) 05/2017 Coronary artery disease invo lving [place]shosh[place] coronary artery of [place] heart without angina pectoris 11/22/2016 Overview (11/21/2021): [...] Description 09/16/2025 1:00 PM EST Office Visit [facility] [address] [place] [address] Bashir Ortiz MD [address] [place] [address] Health Maintenance Due Date Last [...] A1C 06/12/202210/2021, 11/21/2021, 03/24/2021, Additional history exists [id number] Vaccine ( season) 2025 07/21/2021, 01/13/2021, 12/16/2020 [...] this topic Medical Devices Implanted Type Area Auto Radiator Specialist Device Identifier Shelf Expiration Date Model / Serial / Lot Medtronic Reveal- 016 Implanted: (Quantity not on file) Implantable Loop Recorder Left: Chest [id number] S / / Lens Sn60wf 16.5 - [id number] Implanted:Qty : 1 on 03/06/2022 by Bashir Ortiz MD at [facility] Right: Eye [id number] 08/10/2026 SN60WF.16 5 / [id number] 21 / [id number] Lens Sn60wf 17 - [id number] Implanted:Qty : 1 on 09/11/2022 by Bashir Ortiz MD at [facility] Left: Eye [employer]-[id number] 04/07/2027 SN60WF.17 0 / [id number] / [id number] Procedures Procedure Name Priority Date/Time Associated [...] Adults <6.0% Children and Adolescents <7.5% Source: [place] [employer]. Standards of medical care in diabetes,2017. Diabetes Care.2017:40 (suppl 1):S1-S135. HbA1c assay performed by an ion-exchange chromatography method that is certified traceable to the DCCT. us Glenn Parker MD LAB BLOOD ORDERABLES Final Res ult [facility] [address] [place] [address] from Last 3 Months or Most Recently Relevant to Health Maintenance Insurance MEDICARE Advance Directives * Full Code (Latest Code Status on File) Date Activated Date Inactivated Comments 11/21/2021 8:51 PM 11/22/2021 7:39 PM Question Answer Comments Patient has decision-making capacity? Yes Care Teams Water Tanker Driver Relationship Specialty Start Date End Date Robina Downey APRN [address] [place] [address] PCP - General 02/25/21
--- OUTSIDE RECORDS SUMMARY | 2025-08-05 07:29 | XMS_ITS | Encounter Summary ---
Author Organization [employer] ([place], [place], [place], [place]) Address [address] [place] [address] Care Team Providers Care Build And Deployment Engineer Name Role Phone Unavailable Primary Care Provider Unavailabl e Encounter Details Date Type Department Care Team (Late st Contact Info) Description 01/07/2019 Transcribed Document [facility] [place] Family Medicine [facility] [place] [address] ProviderKentrell MD [address] [place] [address] Social History Tobacco Use Types Packs/Day Years Used Date Smoking Tobacco: Never Assessed Comments Unknown Sex and Gender Information Value Date Recorded Sex Assigned at Not on file Legal Sex Female 5:31 PM CDT Gender Identity Not on file Sexual Orientation Not on file documented as of this encounter Miscellaneous Notes * Cerner Conversion Note - Kentrell Lorenzo MD - 01/07/2019 2:03 PM CDT [address] , [place] [address] Patient Copy Patient Information: Name: MARICEL IGLESIAS Current Date: 01/07/2019 14:03:23 : 1955 Patient Address: [place] [address] Patient Attending Physician: CARLOS LANDIN DO Primary Care Provider: OSITO LARSEN (REF)[facility] Primary Care Provider Discharge Diagnosis: Weakness Weight on Admission: 223 lb, 0 oz Weight at Discharge: 218 lb Comment: Follow-up Instructions: With: Address: When: OSITO LARSEN [address] [place] [address], [address] [place], [place] [id number] Business (1) 3:30 PM With: Address: When: [...] hour period. Medical Equipment for Home Use: [employer] [place] [employer] [facility] [phone] Immunizations Documented During Stay: No Immunizations Found [...] 09/13/2009 Document Revised: 10/22/2015 Document Reviewed: 11/26/2014 [employer] Interactive Patient Education ? 2017 [employer] Inc. How to Take a Pulse Your [...] 04/06/2004 Document Revised: 04/20/2017 Document Reviewed: 03/06/2017 [employer] Interactive Patient Education ? 2017 [employer]. Smoking Hazards Smoking cigarettes is extremely [...] contain harmful chemicals. FOR MORE INFORMATION ??? [place] [employer] Association: www.lung.org ??? [place] Cancer Society: www.cancer.org This information is not intended to replace advice given to you by your health care provider. Make sure you discuss any questions you have with your health care provider. Document Released: 11/08/2005 Document Revised: 01/22/2017 Document Reviewed: 03/23/2014 [employer] Interactive Patient Education ? 2017 [employer] Inc. Diabetes Mellitus and Standards of Medical Care Managing diabetes (diabetes mellitus) can be complicated. Your diabetes treatment may be managed by a team of health care providers, including: ??? A diet and strategic partnership specialist (registered dietitian). ??? A nurse. ??? A certified surgical tech/first assistant (CDE). ??? A consumer affairs specialist (kiln tester). ??? An eye doctor. ??? A primary [...] 07/29/2010 Document Revised: 06/29/2017 Document Reviewed: 06/29/2017 [employer] Interactive Patient Education ? 2017 [employer]. Diabetes Mellitus and Sick Day Management [...] lot of sugar. Take medicines as directed??? Kpav-hqpp-fge-counter and prescription medicines only as told by [...] 10/03/2004 Document Revised: 06/29/2017 Document Reviewed: 06/29/2017 [employer] Interactive Patient Education ? 2017 [employer]. Weakness Weakness is a lack of strength. [...] 09/13/2009 Document Revised: 04/01/2013 Document Reviewed: 07/21/2016 [employer] Interactive Patient Education ? 2017 [employer] Medication Leaflets: amoxicillin and clavulanate potassium (am [...] may report side effects to FDA at 9-895-HER-4754. What other drugs will affect amoxicillin and clavulanate potassium? Tell your doctor about all your current medicines and any you start or stop using, especially: ? allopurinol; ?? probenecid; or ?? a blood thinner--warfarin, Coumadin, Jantoven. This list is not complete. Other drugs may interact with amoxicillin and clavulanate potassium, including prescription and tjer-gki-spboutz medicines, vitamins, and herbal products. Not all [...] to ensure that the information provided by [employer]. ('[employer]') is accurate, up-to-date, and complete, but no guarantee is made to that effect. Drug information contained herein may be time sensitive. [employer] information has been compiled for use by healthcare practitioners and consumers in the [place] and therefore [employer] does not warrant that uses outside of the [place] are appropriate, unless specifically indicated otherwise. [employer]'s drug information does not endorse drugs, diagnose patients or recommend therapy. [facility]'s drug information is an informational resource designed [...] effective or appropriate for any given patient. [facility] does not assume any responsibility for any aspect of healthcare administered with the aid of information [facility] provides. The information contained herein is not intended to cover all possible uses, directions, precautions, warnings, drug interactions, allergic reactions, or adverse effects. If you have questions about the drugs you are taking, check with your doctor, nurse or pharmacist. Copyright 1746-6163 [facility]. Version: 08.16. Revision Date: 10/16/2017. formoterol and [...] may report side effects to FDA at 7-566-BXH-5049. What other drugs will affect formoterol and [...] affect formoterol and mometasone, including prescription and izxl-vzc-ytzikqu medicines, vitamins, and herbal products. Not all [...] to ensure that the information provided by [employer]. ('[employer]') is accurate, up-to-date, and complete, but no guarantee is made to that effect. Drug information contained herein may be time sensitive. [employer] information has been compiled for use by healthcare practitioners and consumers in the [place] and therefore [employer] does not warrant that uses outside of the [place] are appropriate, unless specifically indicated otherwise. [employer] drug information does not endorse drugs, diagnose patients or recommend therapy. [employer] drug information is an informational resource designed [...] effective or appropriate for any given patient. [facility] does not assume any responsibility for any aspect of healthcare administered with the aid of information [facility] provides. The information contained herein is not intended to cover all possible uses, directions, precautions, warnings, drug interactions, allergic reactions, or adverse effects. If you have questions about the drugs you are taking, check with your doctor, nurse or pharmacist. Copyright 8873-8786 [facility] Center[facility] PotatoDefywire. Version: 9.01. Revision Date: 12/31/2017. saccharomyces boulardii [...] Logan's Yeast, Martini CBS 5926, Levure de Boulangerie, and Probiotic. Saccharomyces boulardii lyo has been [...] may report side effects to FDA at 1-729-DRI-1109. What other drugs will affect saccharomyces boulardii lyo? Other drugs may interact with saccharomyces boulardii lyo, including prescription and qlxp-yba-flzzwxo medicines, vitamins, and herbal products. Tell each [...] to ensure that the information provided by [employer]. ('[employer]') is accurate, up-to-date, and complete, but no guarantee is made to that effect. Drug information contained herein may be time sensitive. [employer] information has been compiled for use by healthcare practitioners and consumers in the [place] and therefore [employer] does not warrant that uses outside of the [place] are appropriate, unless specifically indicated otherwise. [employer]'s drug information does not endorse drugs, diagnose patients or recommend therapy. [employer] drug information is an informational resource designed [...] effective or appropriate for any given patient. [employer] does not assume any responsibility for any aspect of healthcare administered with the aid of information [employer] provides. The information contained herein is not intended to cover all possible uses, directions, precautions, warnings, drug interactions, allergic reactions, or adverse effects. If you have questions about the drugs you are taking, check with your doctor, nurse or pharmacist. Copyright 2470-9515 [employer]. Version: 2.03. Revision Date: 09/17/2015. insulin glargine (IN leos gm GLAR gine) Basaglar KwikPen, Lantus, Lantus Solostar Pen, Gilma MancinioStar What is the most important information I [...] period unless your doctor tells you to. documented in this encounter Plan of Treatment Not on file documented as of this encounter Visit Diagnoses Not on filedocumented in this encounter
--- OUTSIDE RECORDS SUMMARY | 2025-08-05 07:29 | XMS_ITS | Encounter Summary ---
Author Organization [employer] ([place], [place], [place], [place]) Address [address] [place] [address] Care Team Providers Care Display And Banner Designer Name Role Phone Unavailable Primary Care Provider Unavailabl e Encounter Details Date Type Department Care Team (Late st Contact Info) Description 01/11/2019 Transcribed Document [facility] [place] [address] [place] [address] ProviderKentrell MD [address] [place] [address] Social History Tobacco Use Types Packs/Day Years Used Date Smoking Tobacco: Never Assessed Comments Unknown Sex and Gender Information Value Date Recorded Sex Assigned at Not on file Legal Sex Female 5:31 PM CDT Gender Identity Not on file Sexual Orientation Not on file documented as of this encounter Miscellaneous Notes * Cerner Conversion Note - Kentrell Lorenzo MD - 01/11/2019 9:06 AM CDT Post Visit Phone Call Entered On: 01/11/2019 9:08 EDT Performed On: 01/11/2019 9:06 EDT by BRENNON CERON RN Post Visit Phone Call Post Visit Phone Call History : Second call, Left message Contact Relationship to Patient : Self Contact Name : Maricel Post Visit Comments : 2nd discharge call, left message BRENNON CERON RN - 01/11/2019 9:06 EDT Electronically signed by Charlotte Sprague Conversion Piercing Machine Operator [employer] at 01/29/2023 9:07 AM CDT documented in this encounter Plan of Treatment Not on file documented as of this encounter Visit Diagnoses Not on filedocumented in this encounter
--- OUTSIDE RECORDS SUMMARY | 2025-08-05 07:29 | XMS_ITS | Encounter Summary ---
Author Organization [employer] ([place], [place], [place], [place]) Address [address] [place] [address] Care Team Providers Care Handyperson Name Role Phone Unavailable Primary Care Provider Unavailabl e Encounter Details Date Type Department Care Team (Late st Contact Info) Description 01/14/2019 Transcribed Document [facility] [place] Family Medicine [address] [place] [address] ProviderKentrell MD [address] [place] [address] Social History Tobacco Use Types Packs/Day Years Used Date Smoking Tobacco: Never Assessed Comments Unknown Sex and Gender Information Value Date Recorded Sex Assigned at Not on file Legal Sex Female 5:31 PM CDT Gender Identity Not on file Sexual Orientation Not on file documented as of this encounter Miscellaneous Notes * Cerner Conversion Note - Kentrell ProviderMD - 01/14/2019 3:43 PM CDT Post Visit Phone Call Entered On: 01/14/2019 15:44 EDT Performed On: 01/14/2019 15:43 EDT by rBandie Yang Rn Post Visit Phone Call Post Visit Phone Call History : First call, Second call, Third call, Left message Contact Relationship to Patient : Self Post Visit Comments : 2nd discharge call, left message Brandie Yang Rn - 01/14/2019 15:43 EDT documented in this encounter Plan of Treatment Not on file documented as of this encounter Visit Diagnoses Not on filedocumented in this encounter
--- OUTSIDE RECORDS SUMMARY | 2025-08-05 07:29 | XMS_ITS | Encounter Summary ---
Author Organization [employer] ([place], [place], [place], [place]) Address [address] [place] [address] Care Team Providers Care Occupational Therapy Assist Name Role Phone Unavailable Primary Care Provider Unavailabl e Encounter Details Date Type Department Care Team (Late st Contact Info) Description 01/05/2019 Transcribed Document [facility] [place] [address] [place] [address] ProviderKentrell MD [address] [place], [place] [id number] Social History Tobacco Use Types Packs/Day Years Used Date Smoking Tobacco: Never Assessed Comments Unknown Sex and Gender Information Value Date Recorded Sex Assigned at Not on file Legal Sex Female 5:31 PM CDT Gender Identity Not on file Sexual Orientation Not on file documented as of this encounter Miscellaneous Notes * Cerner Conversion Note - Kentrell Lorenzo MD - 01/05/2019 12:44 AM CDT Pain Assessment Entered On: 01/05/2019 4:28 EDT Performed On: 01/05/2019 2:06 EDT by Armand Cristobal Rn Intervention Information: methadone Performed by Armand Cristobal Rn on 01/05/2019 01:06:00 EDT methadone,10mg Oral Pain Assessment Pain Assessment : Follow-up assessment Pain Scale Used : 0-10 Scale Armand Cristobal Rn - 01/05/2019 4:28 EDT Pain Scale Intensity : 2 Armand Cristobal Rn - 01/05/2019 4:28 EDT Image 4 - Images currently included in the form version of this document have not been included in the text rendition version of the form. documented in this encounter Plan of Treatment Not on file documented as of this encounter Visit Diagnoses Not on filedocumented in this encounter
--- OUTSIDE RECORDS SUMMARY | 2025-08-05 07:29 | XMS_ITS | Encounter Summary ---
Author Organization [employer] ([place], [place], [place]) Address [address] [place] [address] Care Team Providers Care Dye Line Operator Name Role Phone Unavailable Primary Care Provider Unavailabl e Encounter Details Date Type Department Care Team (Late st Contact Info) Description 01/05/[address] [facility] [place] Family Medicine [address] [place] [address] ProviderKentrell MD [address] [place], [place] [address] Social History Tobacco Use Types Packs/Day Years Used Date Smoking Tobacco: Never Assessed Comments Unknown Sex and Gender Information Value Date Recorded Sex Assigned at Not on file Legal Sex Female 5:31 PM CDT Gender Identity Not on file Sexual Orientation Not on file documented as of this encounter Miscellaneous Notes * Cerner Conversion Note - Kentrell Lorenzo MD - 01/05/2019 9:00 PM CDT Pain Assessment Entered On: 01/06/2019 5:19 EDT Performed On: 01/05/2019 21:32 EDT by Armand Cristobal Rn Intervention Information: methadone Performed by Armand Cristobal Rn on 01/05/2019 20:32:00 EDT methadone,10mg Oral Pain Assessment Pain Assessment : Follow-up assessment Pain Scale Used : 0-10 Scale Armand Cristobal Rn - 01/06/2019 5:19 EDT Pain Scale Intensity : 2 Armand Cristobal Rn - 01/06/2019 5:19 EDT Image 4 - Images currently included in the form version of this document have not been included in the text rendition version of the form. documented in this encounter Plan of Treatment Not on file documented as of this encounter Visit Diagnoses Not on filedocumented in this encounter
--- OUTSIDE RECORDS SUMMARY | 2025-08-05 07:29 | XMS_ITS | Encounter Summary ---
Author Organization [employer] ([place], [place], [place], [place]) Address [address] [place] [address] Care Team Providers Care Office Services Manager Name Role Phone Unavailable Primary Care Provider Unavailabl e Encounter Details Date Type Department Care Team (Late st Contact Info) Description 01/07/2019 Transcribed Document [facility] [place] Family Medicine [address] [place] [address] ProviderKentrell MD [facility] [place] [address] Social History Tobacco Use Types Packs/Day Years Used Date Smoking Tobacco: Never Assessed Comments Unknown Sex and Gender Information Value Date Recorded Sex Assigned at Not on file Legal Sex Female 5:31 PM CDT Gender Identity Not on file Sexual Orientation Not on file documented as of this encounter Miscellaneous Notes * Cerner Conversion Note - Kentrell ProviderMD - 01/07/2019 2:58 PM CDT Discharge Summary, PT Entered On: 01/07/2019 15:00 EDT Performed On: 01/07/2019 14:58 EDT by BRANDON FLORES PT Discharge Summary Discharge Summary Provider Notified : Nursing, Physical Therapy Reason for Discharge : Discharged from hospital Discharged to, Therapy : Home, with home health Discharge Summary Comment, PT : per chart review pt was evaluated by PTx on 01-05. pt was supervision for supine to sit. Too SOA to walk. Pt reports 02 sats decreased to 70's with gait. goals not met due to not seen for follow up session See goals below BRANDON FLORES, PT - 01/07/2019 14:58 EDT Short Term Goals Mobility/Bed Mobility STG PT Grid Goal #1 Goal #2 Activity : Supine to sit Sit to stand Assist : Independent, modified Assist, minimal Equipment : Rail, bed Belt, gait, Walker, front wheel Date to Meet : 01/12/2019 EDT 01/12/2019 EDT Goal Status : Not met Not met BRANDON FLORES, PT - 01/07/2019 14:58 EDT BRANDON FLORES, PT - 01/07/2019 14:58 EDT Ambulation STG Grid Goal #1 Device : Walker, front wheel Distance : 100 feet Assist : Assist, minimal Date to Meet : 01/12/2019 EDT Goal Status : Not met BRANDON FLORES, PT - 01/07/2019 14:58 EDT Tree Farmer Goals Mobility/Bed Mobility LTG PT Grid Goal #1 Activity : Sit to supine Assist : Independent, modified Equipment : Belt, gait, Walker, front wheel Date to Meet : 01/19/2019 EDT Goal Status : Not met BRANDON FLORES, PT - 01/07/2019 14:58 EDT Ambulation LTG Grid Goal #1 Device : Walker, front wheel Distance : 300 feet Assist : Supervision or set-up Date to Meet : 01/19/2019 EDT Goal Status : Not met BRANDON FLORES, PT - 01/07/2019 14:58 EDT documented in this encounter Plan of Treatment Not on file documented as of this encounter Visit Diagnoses Not on filedocumented in this encounter
--- OUTSIDE RECORDS SUMMARY | 2025-08-05 07:29 | XMS_ITS | Clinical Summary ---
Author Organization [employer] ([place], [place], [place], [place]) Address [address] [place] [address] Care Team Providers Care Supervisor Matrix Name Role Phone Unavailable Primary Care Provider Unavailabl e Social History Tobacco Use Types Packs/Day Years Used Date Smoking Tobacco: Never Assessed Comments Unknown Sex and Gender Information Value Date Recorded Sex Assigned at Not on file Legal Sex Female 5:31 PM CDT Gender Identity Not on file Sexual Orientation Not on file Plan of Treatment Not on file
--- OUTSIDE RECORDS SUMMARY | 2025-08-05 07:29 | XMS_ITS | Continuity of Care Document ---
Author Organization [facility] [place] [employer] [facility] Address [address] [place] [phone] Assessment No assessment recorded. Plan of Treatment Reminders Order Date Submit Date Provider Last Modified By Organization Details Last Modified Time Details Appointments TRANSP ORTATI ON 2024 11:00A M Transporter Not available Not available Not available FOLLOW UP 30 2024 11:30A M Raymond Downey APRN Not available Not available Not available Lab HbA1c (hemog lobin A1c), blood 2024 025 [email or web address] [facility], [address] [place] [address], [phone], 07/06/2025 11:41:55 Referral None record ed. Procedures None record ed. Surgeries None record ed. Imaging None record ed. Medication Orders ondans etron 8 mg disint egrati ng tablet 2024 025 [facility], [address] [place] [address], [id number], 07/06/2025 12:21:07 spiron olacto ne 25 mg tablet 2024 025 [facility], [address] [place] [address], [id number], 07/06/2025 12:21:07 silver sulfad iazine 1 % topica l cream 2024 025 [facility], [facility] [place], [address], 07/17/2025 12:10:57 Patient TargetsNo targets recorded. Patient InstructionsNo instructions recorded. Reason for Referral None Reported. Results Created Date Observation Date Name Description Value Unit Range Abnormal Flag Note LastModifiedBy Organization Detail LastModifiedTime 07/06/2007/06/2025 HbA1c (hemo globi n A1c), blood HbA1c 9.1 Not Available [address], [place], [address], 07/03/2025 17:44:46 07/01/2007/01/2025 CT, angio gram, chest , w/wo contr ast No observ ation record ed. [place] [id number], [place], [address], 07/06/2025 09:40:28 07/01/20 25 07/01/2025 XR, chest No observ ation record ed. [address], [place], [address], 07/06/2025 09:40:41 07/01/20 25 07/01/2025 CT, abdom en + pelvi s, w/wo contr ast No observ ation record ed. [address], [place], [address], 07/06/2025 09:57:00 07/02/20 25 07/01/2025 elect rocar diogr am, routi ne ECG, 12 leads min No observ ation record ed. [address], [place], [address], 07/06/2025 09:57:12 07/02/20 25 07/02/2025 elect rocar diogr am, routi ne ECG, 12 leads min No observ ation record ed. [address], [address], 07/06/2025 09:57:24 07/03/2007/03/2025 XR, chest No observ ation record ed. [address] [place], [place], [address], 07/06/2025 09:57:48 07/03/20 25 07/02/2025 elect rocar diogr am, routi ne ECG, 12 leads min No observ ation record ed. [address] [place], [place], [address], 07/06/2025 09:55:58 07/16/2007/16/2025 XR, cervi rick spine , 6 or more view No observ ation record ed. [address], [place], [address], 07/17/2025 08:20:54 07/16/2007/16/2025 XR, shoul jaye, 2 or more view No observ ation record ed. [address], [address], 07/17/2025 08:20:35 Result Notes None recorded. Problems Name Problem SNOMED Code Status Onset Date Resolution Date Notes Provider Name and Address Organization Details Recorded Time Anemia due to chronic blood loss 989300360 Completed 201807/15/2022 Problem Code: D50.0; Problem Code Type: ICD-10; JANETTE wise, [employer] 10:37:40 Hypothyr oidism 80692412 Active 2018 Not Available [facility] 22:40:13 Disorder of nervous system due to type 2 diabetes mellitus 589705918 Completed 201811/12/2020 Problem Code: E11.42; Problem Code Type: ICD-10; Not Available [facility] 22:40:13 Vitamin D deficien cy 98028586 Active 2018 Problem Code: E55.9; Problem Code Type: ICD-10; Not Available formerly [facility] 2 22:40:13 Vitamin B deficien cy 95804345 Active 2018 Problem Code: E53.9; Problem Code Type: ICD-10; Not Available [facility] 2 22:40:13 Hyperten sive disorder 80105514 Active 2018 Problem Code: I10; Problem Code Type: ICD-10; Not Available formerly [facility] 2 22:40:18 Screenin g mammogra phy Completed 201808/17/2019 Problem Code: Z12.31; Problem Code Type: ICD-10; Not Available formerly [facility] 2 22:40:19 Body mass index 40+ - severely obese 984196437 Completed 201801/15/2022 Not Available formerly [facility] 2 22:40:26 Pain in right lower limb 135276707 Completed 201807/05/2022 RUSSELL wise, [employer] 2 15:04:24 Neuropat hy due to type 2 diabetes mellitus 72988215023 9106 Active 2018 Problem Code: E11.40; Problem Code Type: ICD-10; Robina Downey, RECRUITING ADMINISTRATOR [address] [place] [address], [phone] [facility] [employer] 5 22:23:38 Finding of general energy 395438603 Completed 201807/18/2019 Problem Code: R53.83; Problem Code Type: ICD-10; Not Available formerly [facility] 22:40:18 Falls 249412611 Completed 201807/15/2022 Problem Code: R29.6; Problem Code Type: ICD-10; JANETTE wise, [employer] 2 10:37:40 Influenz a vaccine needed 23666767878 06 Completed 201808/17/2019 Problem Code: Z23; Problem Code Type: ICD-10; RUSSELL BENNETT null, [employer] 15:04:08 Chronic respirat ory failure 66222046 Active 2018 Problem Code: J96.10; Problem Code Type: ICD-10; Not Available [facility] 22:40:15 Acute kidney injury 00172163 Completed 201803/12/2020 Problem Code: N17.9; Problem Code Type: ICD-10; Not Available [facility] 2 22:40:16 Pain of right shoulder joint 19632503939 988785 Completed 201807/05/2022 Problem Code: M25.511; Problem Code Type: ICD-10; RUSSELL BENNETT null, [employer] 15:04:33 Wheezing 53546717 Completed 201907/05/2022 Problem Code: R06.2; Problem Code Type: ICD-10; RUSSELL BENNETT null, [employer] 15:04:53 Body mass index 40+ - severely obese 596718600 Active 2019 Not Available formerly [facility] 22:40:21 Dyspnea 306304219 Completed 201907/05/2022 Problem Code: R06.02; Problem Code Type: ICD-10; RUSSELL BENNETT null, [employer] 2 15:04:44 Bronchop neumonia 117973538 Completed 201907/05/2022 Problem Code: J18.0; Problem Code Type: ICD-10; Robina Downey, KEREN [address] [place], [address] , [employer] 5 11:43:28 Acute-on -chronic respirat ory failure 71235322 Completed 201911/12/2020 Problem Code: J96.21; Problem Code Type: ICD-10; Not Available formerly [facility] 22:40:15 Current drug user 110895507 Completed 201911/12/2020 Problem Code: Z79.899; Problem Code Type: ICD-10; Not Available [employer] 22:40:22 Moderate recurren t major depressi on 24180135 Active 2019 Problem Code: F33.1; Problem Code Type: ICD-10; Not Available [facility] 22:40:13 Severe recurren t major depressi on without psychoti c features 99416378 Completed 201911/12/2020 Problem Code: F33.2; Problem Code Type: ICD-10; Robina Downey APRN [address] [place], [address] , [employer] 4 13:42:19 Generali zed anxiety disorder 61864461 Active 2019 Problem Code: F41.1; Problem Code Type: ICD-10; Not Available [facility] 22:40:14 Post-tra umatic stress disorder 83156547 Completed 201911/12/2020 Problem Code: F43.10; Problem Code Type: ICD-10; Not Available [facility] 22:40:14 Severe recurren t major depressi on without psychoti c features 64997088 Completed 201911/12/2020 Problem Code: F33.2; Problem Code Type: ICD-10; Robina Downey APRN [address] [place], [address] , [employer] 4 13:42:19 Post-tra umatic stress disorder 30640462 Completed 201911/12/2020 Problem Code: F43.10; Problem Code Type: ICD-10; Not Available [facility] 22:40:14 Post-tra umatic stress disorder 17721076 Active 2019 Problem Code: F43.10; Problem Code Type: ICD-10; Not Available [facility] 22:40:14 Chronic post-tra umatic stress disorder 721019442 Active 2019 Problem Code: F43.12; Problem Code Type: ICD-10; Not Available formerly [facility] 22:40:14 Recurren t major depressi ve episodes , moderate 745312662 Active 2019 Problem Code: 296.32; Problem Code Type: ICD-9; Not Available formerly [facility] 22:40:23 Screenin g mammogra phy Completed 201911/12/2020 Problem Code: Z12.31; Problem Code Type: ICD-10; Not Available formerly [facility] 22:40:19 Candidia sis of mouth 70017939 Completed 202007/05/2022 Problem Code: B37.0; Problem Code Type: ICD-10; RUSSELL wise, [employer] 15:03:38 Disorder of upper respirat ory system 556356909 Completed 202007/15/2022 Problem Code: J06.9; Problem Code Type: ICD-10; JANETTE wise, [employer] 10:37:40 Tingling of skin 269090338 Completed 202001/15/2022 Problem Code: R20.2; Problem Code Type: ICD-10; Not Available formerly [facility] 22:40:17 Screenin g mammogra phy Completed 202001/15/2022 Problem Code: Z12.31; Problem Code Type: ICD-10; Not Available formerly [facility] 22:40:19 Influenz a vaccine needed 55678320480 06 Completed 202001/15/2022 Problem Code: Z23; Problem Code Type: ICD-10; RUSSELL wise, [employer] 15:04:08 Current drug user 354083464 Completed 202001/15/2022 Problem Code: Z79.899; Problem Code Type: ICD-10; Not Available formerly [facility] 22:40:22 Herpes zoster conjunct ivitis 018043022 Completed 202101/15/2022 Problem Code: B02.31; Problem Code Type: ICD-10; Not Available [facility] 22:40:12 Chronic systolic heart failure 243044498 Active 2024 Robinajuancho Downey, KEREN [address] [place] [address], [address] , [employer] 11:03:28 Bronchop neumonia 655259397 Active 2024 Problem Code: J18.0; Problem Code Type: ICD-10; Robina Downey APRN [address], [place], [address] [place] [address] , [employer] 11:43:28 Epiderma l burn of left lower leg 34392519428 193811 Active 2024 Robina Downey APRN [address] [place] [address], [address] [place] [address] , [employer] 11:46:39 Herpes zoster 1463065 Active 2024 Robina Downey APRN [address] [place] [address], [address] [place] [address] , [employer] 08:15:27 Nausea 661335001 Active 2024 Robina Downey APRN [address] [place] [address], [address] [place] [address] , [employer] 22:23:37 Problem Notes None recorded. Procedures Surgical History Date Name Laterality Status Provider Name and Address Organization Details Recorded Time 04/07/20 22 cataract surgery completed Not Available [facility] 06/20/2022 22:56:36 03/09/20 22 Cataract Surgery completed JANETTE [employer] 07/15/2022 10:25:21 02/08/20 21 Angioplasty completed JANETTE [employer] 07/15/2022 10:25:21 04/29/20 19 cholecystectomy completed Not Available [facility] 06/20/2022 22:56:36 04/29/20 19 splenectomy completed Not Available [facility] 06/20/2022 22:56:37 04/29/20 19 hysterectomy completed Not Available formerly [facility] 06/20/2022 22:56:37 04/29/20 19 ligation of bilateral fallopian tubes completed Not Available formerly [facility] 06/20/2022 22:56:38 03/15/20 19 Most Recent Mammogram completed [facility] [place] 07/15/2022 10:25:19 09/13/19 [address] [place]. 07/15/2022 10:25:21 08/24/[address] [place]. 07/15/2022 10:25:21 08/03/19 83 Dilation and Curettage completed [facility] [place]. 07/15/2022 10:25:21 07/23/[address] [place]. 07/15/2022 10:25:21 11/09/18 [address] [place]. 07/15/2022 10:25:[address] [place]. 07/15/2022 10:25:21 Orthopedic Surgery completed [employer] 07/15/2022 10:25:[address] [place]. 07/15/2022 10:25:[address] [place]. 07/15/2022 10:25:[address] [place]. 07/15/2022 10:25:21 Imaging Results None recorded. Procedure Notes None recorded. Medical Equipment None Reported. Allergies Allergen ID Allergen Name Allergen Category Reaction Reaction Severity Criticality Documentation Date Start Date Code Code System Note Provider Name and Address Organization Details Recorded Time 56543 Non-stero idal anti-infl ammatory agent (substanc e) medicatio n Not available Not available Not available 06/20/2022 47768 5008 SNOMED RUSSELL BENNETT [employer], [employer] 2 14:27:27 68088 Substance with sulfonami de structure and antibacte rial mechanism of action (substanc e) medicatio n Not available Not available Not available 06/20/2022 47731 8003 SNOMED RUSSELL BENNETT [employer] 2 14:27:42 85954 prazosin hydrochlo ride medicatio n Not available Not available Not available 06/20/2022 25198 0 RxNorm cause d her to be sick RUSSELL BENNETT [employer] 2 14:27:36 74951 Levaquin medicatio n Not available Not available Not available 06/20/2022 25966 2 RxNorm Not Available formerly [facility] 2 22:56:12 39324 Lovenox medicatio n Not available Not available Not available 06/20/2022 90839 6 RxNorm Not Available formerly [facility] 2 22:56:13 40070 metformin medicatio n Not available Not available Not available 06/20/2022 6809 RxNorm Not Available formerly [facility] 2 22:56:13 69584 Prevnar 13 medicatio n Not available Not available Not available 06/20/2022 86594 1 RxNorm Not Available formerly [facility] 2 22:56:14 37059 Phenergan medicatio n Not available Not available Not available 07/15/2022 70543 8 RxNorm JANETTE MYNEAR [employer] 2 10:30:51 19867 Nubain medicatio n Not available Not available Not available 07/15/2022 7550 RxNorm JANETTE MYNEAR [employer] 2 10:30:58 Medications Name Sig Start [...] oral route 3 times per day prn 07/05 completed Not Available Not Available Not [...] Ultra-Fine Carmen Pen Needle 32 gauge x 5/32 Use as directeD FOUR TIMES DAILY active [...] Available Not Available Not Available Dexcom G6 Fluorescent Lamp Replacer 10/28 completed Not Available Not Available Not [...] Available Not Available Vitals Date Recorded Body mass index (BMI) Body weight Body temperature Heart rate Oxygen saturation Oxygen saturation in Arterial blood by Pulse oximetry Inhaled oxygen flow rate Systolic And Diastolic Provider Name and Address Organization Details Last Updated DateTime 41.3 kg/m2 42521.1 5 g 98.6 [degF] 113 /min 89 % 89 % 2 L/min 102/62 mm[Hg] JANETTE DUNBAR [employer] 11:11:33 Date Recorded Body height Provider Name an d Address Organization Details Last Updated DateTime 07/06/2025 152.4 cm Bianca Oliveira [employer]. 07/06/2025 10:53:29 Social History Question Answer Notes LastModified by Organizat ion Details LastModified Time Tobacco Smoking Status Never Smoker Rylee wise, [employer] 05/08/2024 10:41:28 Do You Have An [...] Or The Highest Degree You Have Received? [id number] Information not available 07/15/2022 Who Is Your [...] not available 07/15/2022 Where Do You Live? SingleLevelHouse Information not available 05/08/2024 Do You Have A Medical Power Of Kitchen Stewardess? No Information not available 07/15/2022 What Was The Date Of Your Most Recent Tobacco Screening? 07/06/2025 [email or web address] Information not available 07/06/2025 What Is Your Current Pack Years? 10packyears Information not available 05/08/2024 Have You Ever [...] Functional Status Question Answer Note LastModified by Organizat ion Details LastModified Time Do you or [...] available 07/15/2022 What is your occupation? Retired [email or web address] Information not available 05/08/2024 Mental Status Question Answer Note LastModified by Organizat ion Details LastModified Time Do you feel stressed (tense, restless, nervous, or anxious, or unable to sleep at night)? [id number] Information not available 07/15/2022 Do you have difficulty concentrating, remembering or making decisions? Yes Information no t available 07/15/2022 Are you or have you been involved with bullying? No Information not available 07/15/2022 Family History Relationship Description Onset Age of this Age Resolved Age Notes LastModified by Organization Details LastModified Time Mother Family history of congestive heart failure [email or web address] Not available 12/13 10:51:47 Mother Hypertensive disorder [...] N Thyroid Problems Y Lung Disease Y Hypothyroidism Y Depression Y COPD Y GI Problems Y Developmental or Behavioral Disorders Y Anxiety Disorder Y Diabetes Y Obesity Y Bleeding Disorder Y Vision [...] reconstituted, 0.5 mL, PF 4 completed Robina Downey, RECRUITING ADMINISTRATOR [address] [place], [address], [employer] 10/30/2023 17:56:03 Influenza, high-dose, quadrivalent, PF 4 completed Robina Downey, KEREN [address] [place], [address], [employer] 10/30/2023 17:56:03 Influenza, high-dose, trivalent, PF 4 completed Robina Downey, KEREN [address] [place], [address], [employer] 08/31/2024 18:56:45 pneumococcal polysaccharide PPV23 9 completed Not Available formerly [facility] 06/21/2022 00:01:33 Influenza, split virus, quadrivalent, PF 1 completed Not Available formerly [facility] 06/21/2022 00:01:33 Tdap 1 completed Not Available formerly [facility] 06/21/2022 00:01:33 COVID-19, mRNA, LNP-S, PF, 100 mcg/0.5mL dose or 50 mcg/0.25mL dose 1 completed JANETTE wise, [employer] 10/31/2022 11:23:35 COVID-19, mRNA, LNP-S, PF, 100 mcg/0.5mL dose or 50 mcg/0.25mL dose 1 completed JANETTE wise, [employer] 10/31/2022 11:23:35 COVID-19, mRNA, LNP-S, PF, 100 mcg/0.5mL dose or 50 mcg/0.25mL dose 1 completed JANETTE MYNEAR null, [employer] 10/31/2022 11:23:35 Influenza, split virus, trivalent, preservative 9 completed Not Available [facility] 10/30/2023 10:37:01 Influenza, split virus, quadrivalent, preservative 0 completed Not Available [facility] 06/21/2022 00:01:33 pneumococcal polysaccharide PPV23 5 completed Robina Downey APRN [address] [place] [address], [address], [employer] 01/12/2025 22:04:47 Influenza, split virus, quadrivalent, preservative 9 completed JANETTE MYNEAR null, [employer] 10/31/2022 11:23:35 pneumococcal polysaccharide PPV23 7 completed JANETTE MYNEAR null, [employer] 10/31/2022 11:23:35 Influenza, split virus, quadrivalent, PF 7 completed JANETTE MYNEAR null, [facility] [employer] 10/31/2022 11:23:35 Past Encounters Encounter ID Performer Location Encounter Start Date Encounter Closed Date Diagnosis/Indication Diagnosis SNOMED-CT Code Diagnosis ICD10 Code Diagnosis IMO Codes Diagnosis Note [id number] Robina Downey APRN [address] [address] 07/06/2025 10:39:09 07/06/2025 12:02:19 Neuropathy due to type 2 diabetes mellitus 3045894120 42495 E11.40 No changes today to her diabetic medication regimen. Bronchopneumonia 9188593 07 J18.0 97177 Complete the levaquin, keep Pulmonary and Cardio follow up appts. Epidermal burn of left lower leg 6750253787 4860601 T24.132A 87354289 Cleanse twice daily with antibacter ial soap and water and apply the Silvadene cream. Continue to monitor for and report any signs of infection. Nausea 790769173 R11.0 Refill the Zofran that she uses as needed due to diabetic gastropare sis. Chronic sy stolic heart failure 273438089 I50.22 661772 Appears euvolemic today needs refill on spironolac tone. She is to keep follow-up appointmen t with cardiology as scheduled. Continue daily weights with report of excursions greater than 5 pounds. Health Concerns Section Related Observation LastModified by Organization Detai ls LastModified Time None Recorded Concern Status LastModified by Organization Details LastModified Time None Recorded Payers Encounter Date Sequence Insurance Name Policy Number Policy Duong Covered Member ID Duong Member ID Guarantor Name 07/06/2025 1 [employer] (MEDICARE) Maricel Cooney [id number] Maricel Cooney Notes Date Note Type Note Provider Name and Address Organization Details Recorded Time 07/06/2025 text/html ROS as noted in the HPI Aminata [...] clinic. Has insulin-dependent type 2 diabetes. Robina Downey, RECRUITING ADMINISTRATOR [address] [facility], [place], [address], [employer] 07/16/2025 22:24:16 OBGyn Episode No OBEpisode recorded.
--- OUTSIDE RECORDS SUMMARY | 2025-08-05 07:31 | XMS_ITS | Referral Summary ---
Author Organization [employer] ([place], [place], [place], [place]) Address [address] [place] [address] Care Team Providers Care Trade Union Secretary Name Role Phone Unavailable Primary Care Provider [...]
--- OUTSIDE RECORDS SUMMARY | 2025-08-05 07:31 | XMS_ITS | Data Portability ---
Author Organization [facility] Address [address] [place] [address] Care Team Providers Care Traffic Operations Manager Name Role Phone DASHAWN BRITO Referring Provider [phone] CINDY BRITO Referring Provider [phone] [facility] Referr ing Provider LINDA NATHAN Referring Provider [phone] TESS GA MD [facility] ([facility]) Referring Provider Assessment Encounter Date Assessment Date Assessment LastModified by Organization Details LastModified Time 08/28/2017 08/28/2017 Isaías had a rec ent admission for an upper GI bleed that occurred after she was taking high doses of ibuprofen for a shoulder injury. The coumadin of course exacerbated the bleeding. She was transferred and admitted to 08/17 and had ulcers noted on upper endoscopy. She was transfused. She returned to local ER two days after discharge from with abdominal pain and was readmitted at local hospital. She had benign findings at that brief admission. She does need CBC follow up today. She will avoid NSAIDs. The gabapentin is refilled today. She continues with chronic pain management and the methadone is down to 4 doses per day. Requip is refilled and has reall y helped the restless leg disorder. 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 Not available 08/29/2017 22:11:40 01/17/2018 01/17/2018 Isaías presents for a check up and follow up on the significant GI bleed she had last fall. Due to her severe arthritis pain she had been taking regular ibuprofen and suffered a GI bleed from gastric ulcers. She has done better taking 2 protonix daily recently as her symptoms have recurred and she has issues with dysphagia.. She should have an upper endoscopy follow up. Likewise she is due colonoscopy and she has been having irregular bowels for some time. Her last colonoscopy was many years ago.. She also has remained on chronic coumadin therapy for a history of DVT and PE. She also has a Napoleon filter in place. She should be fine to stay off the coumadin for 5 days for the procedures. She recently had a nuclear stress test that showed no acute findings. She also suffers from restless lgs and the 2 mg dose of requip is not taking care of the symptoms completely so it can be increased. Allergic rhinitis symptoms are flaring and we recommend steroid nasal spary. Labs are reviewed and she is not adequately anti coagulated so we have recommended on the portal that she increase to 7.5 mg MWF and 5 mg all other days and recheck within 2 weeks. She remains mildly anemic and should be taking iron supplement at least 3 nights per week. martina Not available 01/19/2018 20:48:51 04/25/2018 04/25/2018 Isaías has requi red recent hospitalization for pneumonia locally on 03/24 and transferred to [facility] on 03/27 for persistent respiratory failure and was on bipap per the records. She was discharged on 04/06. There is a ground glass appearance on chest x ray so she has a pulmonary follow up for this in a month. She was found to be over anti coagulated and is holding coumadin for the weekend. She also has a chronic anemia that is consistent with iron deficiency, likely due to the previous srinivasa procedure with a reduced iron absorption ability. 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 Medications are reviewed and adjustments made. Other repeat labs were reviewed. She was ordered physical therapy at the hospital and that is reasonable. martina Not available 04/28/2018 22:26:24 05/28/2018 05/28/2018 Ms. Iglesias has a long history of complex medical problems. She has had an upper GI bleed from previously heavy NSAID use this past August and she has remained chronically anemic. She has still not had a colonoscopy that we had scheduled in February with Dr. Blackman. She has suffered a broken right wrist recently from a fall. She apparently has been having falls that occur without warning and have been observed by family and she seems to be syncopal and fall without warning. We did mention to her that she is on many powerful medications that could cause this. However, she has been on sedating meds for a long time. Her primary complaint is chronic fatigue. We have requested follow up labs and they are pending still. We advised her we do not have any easy answers for her. She did have a brain CT scan in March that showed no acute changes. We are recommending neurology referral as perhaps she needs seizure disorder ruled out. She has already had cardiac work up and is wearing a heart monitor that has not shown any significant abnormalities. martina Not available 05/30/2018 07:09:26 01/09/2019 01/09/2019 Ms Iglesias has multiple comorbidities and was recently hospitalized with a respiratory infection with asthma and with hypoxemia,respirato ry failure and anemia. She was given lovenox for her history of DVT as she was not therapeutic on coumadin and that instigated a peritoneal bleed in the rectus sheath with a hematoma, further worsening her anemia. She was transferred to [facility] as there were no beds at [facility] where she typically goes. The GI consult advised there was nothing further they could do for the hematoma. We discussed at length the complications she has suffered for years from the coumadin. In light of the Napoleon filter she has, we will have her try to discontinue the coumadin and see how she does. SHe is a high fall risk further complicating anti coagulation. She has required recent high doses of steroids and was discharged from the hospital with prescriptions for insulin etc. She would rather not take that as she feels the glucose will stabilize when she is off the prednisone. Also if she can refrain from anti coagulation it is likely she will have improvement in blood counts. She really should take iron supplements with her history of Srinivasa fundoplication as that decreases her ability to absorb iron. She is also followed by pain management and continues to take methadone and that can further increase her risk for respiratory depression. We do not note a narcan prescription but would expect her pain management physician to prescribe that. 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 We were able to evaluate for CBC, CMP and Lipids. We will try to assess the A1C when she returns for her wellness next month. martina Not available 01/12/2019 18:22:20 Plan of Treatment Reminders Order Date Submit Date Provider Last Modified By Organization Details Last Modified Time Details Appointments None recorded. Lab PT/INR 2018 [facility], [address] [place], [address], 9 05:00:26 HbA1c (hemoglob in A1c), blood 2018 [facility], [address] [place], [address], 9 05:01:02 CMP, serum or plasma 2018 [facility], [address] [place], [address], 9 08:48:26 lipid panel, serum 2018 [facility], [address] [place], [address], 9 08:48:25 CBC w/ auto diff 2018 [facility], [address] [place], [address], 9 08:48:26 CBC w/ auto diff 2017 018 [facility]), [address] [place], [address], 8 11:31:56 iron + TIBC + ferritin, serum 2017 018 [facility]), [address] [place], [address], 9 06:59:24 folate, serum 2017 [facility] ([facility]), [address] [place], [address], 8 15:04:16 mma (methylma lonic acid), serum 2017 [facility]), [address] [place], [address], 9 06:59:24 urinalysi s, reflex culture 2017 018 [facility]), [address] [place], [address], 9 05:01:17 HbA1c (hemoglob in A1c), blood 2017 018 [facility] ([facility]), [address] [place], [address], 8 16:13:47 PT/INR 2017 018 [facility]), [address], [place], [address], 8 19:23:00 CBC w/ auto diff 2017 018 [facility]), [address] [place], [address], 8 16:10:27 CMP, serum or plasma 2017 018 [facility]), [address] [place], [address], 8 17:06:15 TSH, serum or plasma 2017 018 [facility], [address] , [place], [address], 8 17:05:56 vitamin D, 25-hydrox y, total, serum 2017 018 [facility], [address] [place], [address], 8 05:00:17 PT/INR 2017 [facility], [address] [place], [address], 8 12:01:49 magnesium , serum or plasma 2017 018 [facility], [address] [place], [address], 8 12:01:48 vitamin D, 25-hydrox y, total, serum 2017 [facility], [address] [place], [address], 8 12:01:48 CMP, serum or plasma 2017 018 [facility], [address] [place], [address], 8 12:01:47 HbA1c (hemoglob in A1c), blood 2017 [facility], [address] [place], [address], 8 12:01:47 CBC w/ auto diff 2017 018 [facility], [address] [place], [address], 8 12:01:49 lipid panel, serum 2017 018 [facility], [address] [place], [address], 8 12:01:46 urinalysi s complete, reflex culture 2017 018 [facility], [address] [place], [address], 8 12:01:50 TSH, serum or plasma 2017 018 [facility], [address] [place], [address], 8 12:01:48 HbA1c (hemoglob in A1c), blood 2016 017 [facility] ([facility]), [address], [place], [address], 7 11:28:45 CMP, serum or plasma 2016 017 [facility] ([facility]), [address], [place], [address], 7 11:42:46 CBC w/ auto diff 2016 017 [facility] ([facility]), [address], [place], [address], 7 11:15:[address] referral 2017 018 [facility], [address], [place], [address], 9 06:59:24 gastroent erologist referral 2017 018 [facility] Nuno Xie Jr, MD, [address], [address], [place], [address], 8 05:00:17 colonosco py referral 2017 018 [email or web address] 2 Sheron Blackman MD, [address], [address], [place], [address], 8 08:25:37 Procedures None recorded. Surgeries None recorded. Imaging None recorded. Medication Orders furosemid e 20 mg tablet 2017 018 [facility] [place], [address], 8 17:39:35 metoprolo l tartrate 25 mg tablet 2017 018 [facility] [place], [address], 8 17:49:43 fluoxetin e 20 mg capsule 2017 018 [facility], [facility], [place], [address], 8 17:39:35 fluticaso ne propionat e 50 mcg/actua tion nasal spray,[facility] 2017 018 [facility] [place], [address], 8 14:44:18 warfarin 5 mg tablet 2017 018 [facility] [place], [address], 9 17:35:26 gabapenti n 800 mg tablet 2017 018 [email or web address] 2 [facility], [place], [address], 8 16:05:54 ropinirol e 2 mg tablet 2017 018 [email or web address] 2 [facility] [place], [address], 8 10:19:28 ondansetr on 8 mg disintegr ating tablet 2017 018 [facility] [place], [address], 8 14:44:13 metoprolo l tartrate 25 mg tablet 2017 018 [facility], [facility], [place], [address], 8 14:44:19 amlodipin e 10 mg tablet 2017 018 [facility] [place], [address], 8 14:44:14 fluoxetin e 20 mg capsule 2017 018 [email or web address] [facility] [place], [address], 8 16:51:19 pantopraz ole 40 mg tablet,de layed release 2017 018 [facility], [facility], [place], [address], 8 14:44:15 levothyro xine 50 mcg tablet 2017 018 [facility], [place], [address], 8 14:45:40 pantopraz ole 40 mg tablet,de layed release 2016 017 [facility]FACE [facility] [place], [address], 7 16:01:14 gabapenti n 800 mg tablet 2016 017 [id number], [address] [place], [address], 7 16:27:58 ropinirol e 2 mg tablet 2016 017 [email or web address] 2 [facility], [address] [facility], [place], [address], 8 10:19:28 Patient TargetsNo targets recorded. Patient InstructionsNo instructions recorded. Reason for Referral Document Analyst Referral for History of gastric ulcer Referring Physician: Arelis Black [facility], Encounter Date: 01/17/2018 Colonoscopy Referral for Scr eening for malignant neoplasm of colon Referring Physician: Arelis Black [facility], Encounter Date: 01/17/2018 Neurologist Referral for Syn cope and collapse Referring Physician: Arelis Black [facility], Encounter Date: 05/28/2018 Results Created Date Observation Date Name Description Value Unit Range Abnormal Flag Note LastModifiedBy Organization Detail LastModifiedTime 08/17/20 17 08/17/2017 CMP, serum or plasm a sodium 136 mmol/ L 136-14 5 Not Available [facility] (Lab Registration) [address] [place], [address], 08/17/2017 17:18:45 08/17/20 17 08/17/2017 CMP, serum or plasm a potassium 3.8 mmol/ L 3.5-5. 1 Not Available [facility] (Lab Registration) [address] [place], [address], 08/17/2017 17:18:45 08/17/20 17 08/17/2017 CMP, serum or plasm a chloride 104 mmol/ L 98-107 Not Available [facility] (Lab Registration) [address] [place], [address], 08/17/2017 17:18:45 08/17/20 17 08/17/2017 CMP, serum or plasm a carbon dioxide 19 mmol/ L 21-32 low Not Available [facility] (Lab Registration) [address] [place], [address], 08/17/2017 17:18:45 08/17/20 17 08/17/2017 CMP, serum or plasm a anion gap 13.0 Not Available [facility] (Lab Registration) [address] [place], [address], 08/17/2017 17:18:45 08/17/20 17 08/17/2017 CMP, serum or plasm a glucose 216 mg/dL 70-110 high Not Available [facility] (Lab Registration) [address] [place], [address], 08/17/2017 17:18:45 08/17/20 17 08/17/2017 CMP, serum or plasm a blood urea nitrogen 34 mg/dL 7-18 high Not Available [facility] (Lab Registration) [address] [place], [address], 08/17/2017 17:18:45 08/17/20 17 08/17/2017 CMP, serum or plasm a creatinine 0.9 mg/dL 0.6-1. 0 Not Available [facility] ([facility] Registration) [address] [place], [address], 08/17/2017 17:18:45 08/17/20 17 08/17/2017 CMP, serum or plasm a BUN/creatini ne ratio 37.8 ratio 9-21 high Not Available [facility] (Lab Registration) [address] [place], [address], 08/17/2017 17:18:45 08/17/20 17 08/17/2017 CMP, serum or plasm a estimated glom filtration rate 68 mL/mi n >60- Not Available [facility] (Lab Registration) [address] [place], [address], 08/17/2017 17:18:45 08/17/20 17 08/17/2017 CMP, serum or plasm a total protein 7.0 g/dL 6.4-8. 2 Not Available [facility] (Lab Registration) [address] [place], [address], 08/17/2017 17:18:45 08/17/20 17 08/17/2017 CMP, serum or plasm a albumin 3.0 g/dL 3.4-5. 0 low Not Available [facility] (Lab Registration) [address] [place], [address], 08/17/2017 17:18:45 08/17/20 17 08/17/2017 CMP, serum or plasm a calcium 9.3 mg/dL 8.5-10 .1 Not Available [facility] ([facility] Registration) [address] [place], [address], 08/17/2017 17:18:45 08/17/20 17 08/17/2017 CMP, serum or plasm a corrected calcium 10.1 mg/dL 8.5-10 .1 Not Available [facility] (Lab Registration) [address] [place], [address], 08/17/2017 17:18:45 08/17/20 17 08/17/2017 CMP, serum or plasm a bilirubin total 0.4 mg/dL 0.4-1. 5 Not Available [facility] ([facility] Registration) [address] [place], [address], 08/17/2017 17:18:45 08/17/20 17 08/17/2017 CMP, serum or plasm a AST (SGOT) 23 U/L 15-37 Not Available [facility] ([facility] Registration) [address] [place], [address], 08/17/2017 17:18:45 08/17/20 17 08/17/2017 CMP, serum or plasm a ALT (SGPT) 20 U/L 12-78 Not Available [facility] (Lab Registration) [address] [place], [address], 08/17/2017 17:18:45 08/17/20 17 08/17/2017 CMP, serum or plasm a alk phosphatase 76 U/L 53-141 Not Available [facility] (Lab Registration) [address] [place], [address], 08/17/2017 17:18:45 08/17/20 17 08/17/2017 CMP, serum or plasm a note Unles s other taylor noted testi ng perfo rmed at: [facility] [address] [place] [address] [phone] Rinku montana MD CLIA: [id number] Not Available [facility] (Lab Registration) [address] [place], [address], 08/17/2017 17:18:45 08/17/20 17 08/17/2017 tropo olga I, serum or plasm a troponin <0.04 NG/mL 0.0-0. 056 Not Available [facility] (Lab Registration) [address] [place], [address], 08/17/2017 17:18:46 08/17/20 17 08/17/2017 tropo olga I, serum or plasm a note Unles s other taylor noted testi ng perfo rmed at: [facility] [address] [place] [address] [phone] Rinku montana MD CLIA: [id number] Not Available [facility] (Lab Registration) [address] [place], [address], 08/17/2017 17:18:46 08/17/20 17 08/17/2017 fecal occul t blood , stool occult blood POSITI VE negati ve delta Not Available [facility] ([facility] Registration) [address] [place], [address], 08/17/2017 17:33:20 08/17/20 17 08/17/2017 fecal occul t blood , stool occ bld kit lot# [id number] Not Available [facility] ([facility]) [address] [place], [address], 08/17/2017 17:33:20 08/17/20 17 08/17/2017 fecal occul t blood , stool occ bld kit exp date 05/02 Not Available [facility] (Lab Registration) [address] [place], [address], 08/17/2017 17:33:20 08/17/20 17 08/17/2017 fecal occul t blood , stool occ bld internal pos P positi ve Not Available [facility] (Lab Registration) [address] [place], [address], 08/17/2017 17:33:20 08/17/20 17 08/17/2017 fecal occul t blood , stool occ bld internal neg N negati ve Not Available [facility] ([facility] Registration) [address] [place], [address], 08/17/2017 17:33:20 08/17/20 17 08/17/2017 fecal occul t blood , stool note Unles s other taylor noted testi ng perfo rmed at: [facility] [address] [place] [address] [phone] Rinku montana MD CLIA: [id number] Not Available [facility] (Lab Registration) [address] [place], [address], 08/17/2017 17:33:20 08/17/20 17 08/17/2017 CBC w/ auto diff WBC 20.1 10 4.5-11 .5 high Not Available [facility] ([facility] Registration) [address] [place], [address], 08/17/2017 17:41:38 08/17/20 17 08/17/2017 CBC w/ auto diff RBC 3.80 10 4.25-5 .57 low Not Available [facility] ([facility] Registration) [address] [place], [address], 08/17/2017 17:41:38 08/17/20 17 08/17/2017 CBC w/ auto diff HGB 11.7 g/dL 12.0-1 5.7 low Not Available [facility] ([facility] Registration) [address], [place], [address], 08/17/2017 17:41:38 08/17/20 17 08/17/2017 CBC w/ auto diff HCT 36.3 % 36.0-4 7.0 Not Available [facility] ([facility] Registration) [address] [place], [address], 08/17/2017 17:41:38 08/17/20 17 08/17/2017 CBC w/ auto diff MCV 95.5 fL 80-95 high Not Available [facility] ([facility] Registration) [address] [place], [address], 08/17/2017 17:41:38 08/17/20 17 08/17/2017 CBC w/ auto diff MCH 30.8 pg 27.0-3 4.0 Not Available [facility] (Lab Registration) [address] [place], [address], 08/17/2017 17:41:38 08/17/20 17 08/17/2017 CBC w/ auto diff MCHC 32.2 g/dL 32.0-3 6.0 Not Available [facility] (Lab Registration) [address] [place], [address], 08/17/2017 17:41:38 08/17/20 17 08/17/2017 CBC w/ auto diff RDW 15.1 % 12.3-1 5.1 Not Available [facility] (Lab Registration) [address] [place], [address], 08/17/2017 17:41:38 08/17/20 17 08/17/2017 CBC w/ auto diff platelet count 388 10 150-45 0 Not Available [facility] (Lab Registration) [address] [place], [address], 08/17/2017 17:41:38 08/17/20 17 08/17/2017 CBC w/ auto diff granulocyte% 59 % 40-75 Not Available [facility] (Lab Registration) [address] [place], [address], 08/17/2017 17:41:38 08/17/20 17 08/17/2017 CBC w/ auto diff lymphocyte% 36 % 15-57 Not Available [facility] (Lab Registration) [address] [place], [address], 08/17/2017 17:41:38 08/17/20 17 08/17/2017 CBC w/ auto diff monocyte% 4 % 4.0-12 .0 Not Available [facility] (Lab Registration) [address] [place], [address], 08/17/2017 17:41:38 08/17/20 17 08/17/2017 CBC w/ auto diff eosinophil% 0 % 0.0-4. 0 Not Available [facility] (Lab Registration) [address] [place], [address], 08/17/2017 17:41:38 08/17/20 17 08/17/2017 CBC w/ auto diff basophil% 0 % 0.0-1. 0 Not Available [facility] (Lab Registration) [address] [place], [address], 08/17/2017 17:41:38 08/17/20 17 08/17/2017 CBC w/ auto diff granulocyte# 11.9 10 1.8-8. 62 high Not Available [facility] (Lab Registration) [address] [place], [address], 08/17/2017 17:41:38 08/17/20 17 08/17/2017 CBC w/ auto diff lymphocyte# 7.2 10 0.76-5 .40 high Not Available [facility] (Lab Registration) [address] [place], [address], 08/17/2017 17:41:38 08/17/20 17 08/17/2017 CBC w/ auto diff monocyte# 0.8 10 0.18-1 .38 Not Available [facility] (Lab Registration) [address] [place], [address], 08/17/2017 17:41:38 08/17/20 17 08/17/2017 CBC w/ auto diff eosinophil# 0.0 10 0.00-0 .46 Not Available [facility] (Lab Registration) [address] [place], [address], 08/17/2017 17:41:38 08/17/20 17 08/17/2017 CBC w/ auto diff basophil# 0.0 10 0.-0.1 1 Not Available [facility] (Lab Registration) [address] [place], [address], 08/17/2017 17:41:38 08/17/20 17 08/17/2017 CBC w/ auto diff manual differential YES Not Available [facility] (Lab Registration) [address] [place], [address], 08/17/2017 17:41:38 08/17/20 17 08/17/2017 CBC w/ auto diff RBC morphology NORMAL normal Not Available [facility] ([facility] Registration) [address] [place], [address], 08/17/2017 17:41:38 08/17/20 17 08/17/2017 CBC w/ auto diff platelet estimate ADEQUA TE adequa te Not Available [facility] (Lab Registration) [address] [place], [address], 08/17/2017 17:41:38 08/17/20 17 08/17/2017 CBC w/ auto diff platelet morphology NORMAL normal Not Available [facility] (Lab Registration) [address] [place], [address], 08/17/2017 17:41:38 08/17/20 17 08/17/2017 CBC w/ auto diff band neutrophil 1 % 0.0-8. 0 Not Available [facility] (Lab Registration) [address] [place], [address], 08/17/2017 17:41:38 08/17/20 17 08/17/2017 CBC w/ auto diff note Unles s other taylor noted testi ng perfo rmed at: [facility] [address] [place], [place] [id number] [phone] Rinku montana MD CLIA: [id number] Not Available [facility] (Lab Registration) [address] [place], [address], 08/17/2017 17:41:38 08/17/20 17 08/17/2017 PT/IN R PT (prothrombin time) 28.2 secon ds 9.33-1 0.37 high Not Available [facility] (Lab Registration) [address] [place], [address], 08/17/2017 18:43:02 08/17/20 17 08/17/2017 PT/IN R INR 2.70 0.9-1. 1 high INR is inten ded to be used only for patie nts on stabl e oral anti- coagu lant thera py. *Ther apeut ic Range s 2.0 - 3.0 Usual Thera peuti c Range 2.5 - 3.5 For patie nts with a histo ry of multi ple deep vein throm bus or mecha nical heart valve s. Not Available [facility] (Lab Registration) [address] [place], [address], 08/17/2017 18:43:02 08/17/20 17 08/17/2017 PT/IN R note Unles s other taylor noted testi ng perfo rmed at: [facility] [address], [place] [id number] [phone] Rinku montana MD CLIA: [id number] Not Available [facility] (Lab Registration) [address] [place], [address], 08/17/2017 18:43:02 08/17/20 17 08/17/2017 activ ated parti al throm bopla stin time, coagu latio n assay , blood PTT (partial thromb time) 38.0 secon ds 24.0-3 2.8 high Not Available [facility] (Lab Registration) [address], [place], [address], 08/17/2017 18:43:02 08/17/20 17 08/17/2017 activ ated parti al throm bopla stin time, coagu latio n assay , blood note Unles s other taylor noted testi ng perfo rmed at: [facility] [place] [address] [phone] Rinku montana MD CLIA: [id number] Not Available [facility] (Lab Registration) [address] [place], [address], 08/17/2017 18:43:02 08/17/20 17 08/17/2017 CBC w/ auto diff WBC 19.7 10 4.5-11 .5 high Not Available [facility] (Lab Registration) [address] [place], [address], 08/17/2017 19:38:50 08/17/20 17 08/17/2017 CBC w/ auto diff RBC 3.52 10 4.25-5 .57 low Not Available [facility] (Lab Registration) [address] [place], [address], 08/17/2017 19:38:50 08/17/20 17 08/17/2017 CBC w/ auto diff HGB 11.0 g/dL 12.0-1 5.7 low Resul t has been Repea ana and Confi rmed Not Available [facility] (Lab Registration) [address] [place], [address], 08/17/2017 19:38:50 08/17/20 17 08/17/2017 CBC w/ auto diff HCT 33.7 % 36.0-4 7.0 low Not Available [facility] (Lab Registration) [address], [place], [address], 08/17/2017 19:38:50 08/17/20 17 08/17/2017 CBC w/ auto diff MCV 95.7 fL 80-95 high Not Available [facility] (Lab Registration) [address] [place], [address], 08/17/2017 19:38:50 08/17/20 17 08/17/2017 CBC w/ auto diff MCH 31.3 pg 27.0-3 4.0 Not Available [facility] (Lab Registration) [address] [place], [address], 08/17/2017 19:38:50 08/17/20 17 08/17/2017 CBC w/ auto diff MCHC 32.6 g/dL 32.0-3 6.0 Not Available [facility] (Lab Registration) [address] [place], [address], 08/17/2017 19:38:50 08/17/20 17 08/17/2017 CBC w/ auto diff RDW 15.2 % 12.3-1 5.1 high Not Available [facility] (Lab Registration) [address] [place], [address], 08/17/2017 19:38:50 08/17/20 17 08/17/2017 CBC w/ auto diff platelet count 415 10 150-45 0 Not Available [facility] (Lab Registration) [address] [place], [address], 08/17/2017 19:38:50 08/17/20 17 08/17/2017 CBC w/ auto diff granulocyte% 57 % 40-75 Not Available [facility] (Lab Registration) [address] [place], [address], 08/17/2017 19:38:50 08/17/20 17 08/17/2017 CBC w/ auto diff lymphocyte% 36 % 15-57 Not Available [facility] (Lab Registration) [address] [place], [address], 08/17/2017 19:38:50 08/17/20 17 08/17/2017 CBC w/ auto diff monocyte% 7 % 4.0-12 .0 Not Available [facility] (Lab Registration) [address] [place], [address], 08/17/2017 19:38:50 08/17/20 17 08/17/2017 CBC w/ auto diff eosinophil% 0 % 0.0-4. 0 Not Available [facility] (Lab Registration) [address] [place], [address], 08/17/2017 19:38:50 08/17/20 17 08/17/2017 CBC w/ auto diff basophil% 0 % 0.0-1. 0 Not Available [facility] (Lab Registration) [address] [place], [address], 08/17/2017 19:38:50 08/17/20 17 08/17/2017 CBC w/ auto diff granulocyte# 11.2 10 1.8-8. 62 high Not Available [facility] (Lab Registration) [address] [place], [address], 08/17/2017 19:38:50 08/17/20 17 08/17/2017 CBC w/ auto diff lymphocyte# 7.1 10 0.76-5 .40 high Not Available [facility] (Lab Registration) [address] [place], [address], 08/17/2017 19:38:50 08/17/20 17 08/17/2017 CBC w/ auto diff monocyte# 1.4 10 0.18-1 .38 high Not Available [facility] (Lab Registration) [address] [place], [address], 08/17/2017 19:38:50 08/17/20 17 08/17/2017 CBC w/ auto diff eosinophil# 0.0 10 0.00-0 .46 Not Available [facility] (Lab Registration) [address] [place], [address], 08/17/2017 19:38:50 08/17/20 17 08/17/2017 CBC w/ auto diff basophil# 0.0 10 0.-0.1 1 Not Available [facility] (Lab Registration) [address] [place], [address], 08/17/2017 19:38:50 08/17/20 17 08/17/2017 CBC w/ auto diff manual differential YES Not Available [facility] (Lab Registration) [address] [place], [address], 08/17/2017 19:38:50 08/17/20 17 08/17/2017 CBC w/ auto diff RBC morphology NORMAL normal Not Available [facility] (Lab Registration) [address] [place], [address], 08/17/2017 19:38:50 08/17/20 17 08/17/2017 CBC w/ auto diff platelet estimate ADEQUA TE adequa te Not Available [facility] (Lab Registration) [address] [place], [address], 08/17/2017 19:38:50 08/17/20 17 08/17/2017 CBC w/ auto diff platelet morphology NORMAL normal Not Available [facility] (Lab Registration) [address] [place], [address], 08/17/2017 19:38:50 08/17/20 17 08/17/2017 CBC w/ auto diff note Unles s other taylor noted testi ng perfo rmed at: [facility] [address] [address] [phone] Rinku montana MD CLIA: [id number] Not Available [facility] (Lab Registration) [address] [place], [address], 08/17/2017 19:38:50 08/22/20 17 08/22/2017 CBC w/ auto diff WBC 13.3 10 4.5-11 .5 high Not Available [facility] (Lab Registration) [address] [place], [address], 08/22/2017 22:24:39 08/22/20 17 08/22/2017 CBC w/ auto diff RBC 2.95 10 4.25-5 .57 low Not Available [facility] (Lab Registration) [address] [place], [address], 08/22/2017 22:24:39 08/22/20 17 08/22/2017 CBC w/ auto diff HGB 9.3 g/dL 12.0-1 5.7 low Not Available [facility] (Lab Registration) [address] [place], [address], 08/22/2017 22:24:39 08/22/20 17 08/22/2017 CBC w/ auto diff HCT 28.1 % 36.0-4 7.0 low Not Available [facility] (Lab Registration) [address] [place], [address], 08/22/2017 22:24:39 08/22/20 17 08/22/2017 CBC w/ auto diff MCV 95.3 fL 80-95 high Not Available [facility] (Lab Registration) [address] [place], [address], 08/22/2017 22:24:39 08/22/20 17 08/22/2017 CBC w/ auto diff MCH 31.5 pg 27.0-3 4.0 Not Available [facility] (Lab Registration) [address] [place], [address], 08/22/2017 22:24:39 08/22/20 17 08/22/2017 CBC w/ auto diff MCHC 33.1 g/dL 32.0-3 6.0 Not Available [facility] (Lab Registration) [address] [place], [address], 08/22/2017 22:24:39 08/22/20 17 08/22/2017 CBC w/ auto diff RDW 16.1 % 12.3-1 5.1 high Not Available [facility] (Lab Registration) [address] [place], [address], 08/22/2017 22:24:39 08/22/20 17 08/22/2017 CBC w/ auto diff platelet count 538 10 150-45 0 high Not Available [facility] (Lab Registration) [address] [place], [address], 08/22/2017 22:24:39 08/22/20 17 08/22/2017 CBC w/ auto diff granulocyte% 55.1 % 40-75 Not Available [facility] (Lab Registration) [address] [place], [address], 08/22/2017 22:24:39 08/22/20 17 08/22/2017 CBC w/ auto diff lymphocyte% 33.4 % 15-57 Not Available [facility] (Lab Registration) [address] [place], [address], 08/22/2017 22:24:39 08/22/20 17 08/22/2017 CBC w/ auto diff monocyte% 9.2 % 4.0-12 .0 Not Available [facility] (Lab Registration) [address] [place], [address], 08/22/2017 22:24:39 08/22/20 17 08/22/2017 CBC w/ auto diff eosinophil% 2.0 % 0.0-4. 0 Not Available [facility] (Lab Registration) [address] [place], [address], 08/22/2017 22:24:39 08/22/20 17 08/22/2017 CBC w/ auto diff basophil% 0.3 % 0.0-1. 0 Not Available [facility] (Lab Registration) [address] [place], [address], 08/22/2017 22:24:39 08/22/20 17 08/22/2017 CBC w/ auto diff granulocyte# 7.32 10 1.8-8. 62 Not Available [facility] (Lab Registration) [address], [place], [address], 08/22/2017 22:24:39 08/22/20 17 08/22/2017 CBC w/ auto diff lymphocyte# 4.44 10 0.76-5 .40 Not Available [facility] (Lab Registration) [address], [place], [address], 08/22/2017 22:24:39 08/22/20 17 08/22/2017 CBC w/ auto diff monocyte# 1.22 10 0.18-1 .38 Not Available [facility] (Lab Registration) [address] [place], [address], 08/22/2017 22:24:39 08/22/20 17 08/22/2017 CBC w/ auto diff eosinophil# 0.26 10 0.00-0 .46 Not Available [facility] (Lab Registration) [address], [place], [address], 08/22/2017 22:24:39 08/22/20 17 08/22/2017 CBC w/ auto diff basophil# 0.04 10 0.-0.1 1 Not Available [facility] (Lab Registration) [address], [place], [address], 08/22/2017 22:24:39 08/22/20 17 08/22/2017 CBC w/ auto diff manual differential NO Not Available [facility] (Lab Registration) [address], [place], [address], 08/22/2017 22:24:39 08/22/20 17 08/22/2017 CBC w/ auto diff note Unles s other taylor noted testi ng perfo rmed at: [facility] [address] [place] [address] [phone] Rinku montana MD CLIA: [id number] Not Available [facility] (Lab Registration) [address] [place], [address], 08/22/2017 22:24:39 08/22/20 17 08/22/2017 CMP, serum or plasm a sodium 140 mmol/ L 136-14 5 Not Available [facility] (Lab Registration) [address] [place], [address], 08/22/2017 22:36:02 08/22/20 17 08/22/2017 CMP, serum or plasm a potassium 3.3 mmol/ L 3.5-5. 1 low Not Available [facility] (Lab Registration) [address] [place], [address], 08/22/2017 22:36:02 08/22/20 17 08/22/2017 CMP, serum or plasm a chloride 105 mmol/ L 98-107 Not Available [facility] (Lab Registration) [address] [place], [address], 08/22/2017 22:36:02 08/22/20 17 08/22/2017 CMP, serum or plasm a carbon dioxide 29 mmol/ L 21-32 Not Available [facility] (Lab Registration) [address] [place], [address], 08/22/2017 22:36:02 08/22/20 17 08/22/2017 CMP, serum or plasm a anion gap 6.0 Not Available [facility] (Lab Registration) [address] [place], [address], 08/22/2017 22:36:02 08/22/20 17 08/22/2017 CMP, serum or plasm a glucose 198 mg/dL 70-110 high Not Available [facility] (Lab Registration) [address] [place], [address], 08/22/2017 22:36:02 08/22/20 17 08/22/2017 CMP, serum or plasm a blood urea nitrogen 4 mg/dL 7-18 low Not Available [facility] (Lab Registration) [address] [place], [address], 08/22/2017 22:36:02 08/22/20 17 08/22/2017 CMP, serum or plasm a creatinine 0.8 mg/dL 0.6-1. 0 Not Available [facility] (Lab Registration) [address] [place], [address], 08/22/2017 22:36:02 08/22/20 17 08/22/2017 CMP, serum or plasm a BUN/creatini ne ratio 5.0 ratio 9-21 low Not Available [facility] (Lab Registration) [address] [place], [address], 08/22/2017 22:36:02 08/22/20 17 08/22/2017 CMP, serum or plasm a estimated glom filtration rate 78 mL/mi n >60- Not Available [facility] (Lab Registration) [address] [place], [address], 08/22/2017 22:36:02 08/22/20 17 08/22/2017 CMP, serum or plasm a total protein 6.8 g/dL 6.4-8. 2 Not Available [facility] (Lab Registration) [address] [place], [address], 08/22/2017 22:36:02 08/22/20 17 08/22/2017 CMP, serum or plasm a albumin 3.1 g/dL 3.4-5. 0 low Not Available [facility] (Lab Registration) [address] [place], [address], 08/22/2017 22:36:02 08/22/20 17 08/22/2017 CMP, serum or plasm a calcium 8.8 mg/dL 8.5-10 .1 Not Available [facility] (Lab Registration) [address] [place], [address], 08/22/2017 22:36:02 08/22/20 17 08/22/2017 CMP, serum or plasm a corrected calcium 9.5 mg/dL 8.5-10 .1 Not Available [facility] (Lab Registration) [address] [place], [address], 08/22/2017 22:36:02 08/22/20 17 08/22/2017 CMP, serum or plasm a bilirubin total 0.2 mg/dL 0.4-1. 5 low Not Available [facility] (Lab Registration) [address] [place], [address], 08/22/2017 22:36:02 08/22/20 17 08/22/2017 CMP, serum or plasm a AST (SGOT) 14 U/L 15-37 low Not Available [facility] (Lab Registration) [address] [place], [address], 08/22/2017 22:36:02 08/22/20 17 08/22/2017 CMP, serum or plasm a ALT (SGPT) 19 U/L 12-78 Not Available [facility] (Lab Registration) [address] [place], [address], 08/22/2017 22:36:02 08/22/20 17 08/22/2017 CMP, serum or plasm a alk phosphatase 77 U/L 53-141 Not Available [facility] (Lab Registration) [address] [place], [address], 08/22/2017 22:36:02 08/22/20 17 08/22/2017 CMP, serum or plasm a note Unles s other taylor noted testi ng perfo rmed at: [facility] [address] [place] [address] [phone] Rinku montana MD CLIA: [id number] Not Available [facility] (Lab Registration) [address] [place], [address], 08/22/2017 22:36:02 08/22/20 17 08/22/2017 fecal occul t blood , stool occult blood NEGATI VE negati ve Not Available [facility] (Lab Registration) [address] [place], [address], 08/22/2017 22:37:04 08/22/20 17 08/22/2017 fecal occul t blood , stool occ bld kit lot# [id number] Not Available [facility] (Lab Registration) [address] [place], [address], 08/22/2017 22:37:04 08/22/20 17 08/22/2017 fecal occul t blood , stool occ bld kit exp date 9 Not Available [facility] (Lab Registration) [address] [place], [address], 08/22/2017 22:37:04 08/22/20 17 08/22/2017 fecal occul t blood , stool occ bld internal pos P positi ve Not Available [facility] (Lab Registration) [address] [place], [address], 08/22/2017 22:37:04 08/22/20 17 08/22/2017 fecal occul t blood , stool occ bld internal neg N negati ve Not Available [facility] (Lab Registration) [address] [place], [address], 08/22/2017 22:37:04 08/22/20 17 08/22/2017 fecal occul t blood , stool note Unles s other taylor noted testi ng perfo rmed at: [facility] [place] [address] [phone] Rinku montana MD CLIA: [id number] Not Available [facility] (Lab Registration) [address] [place], [address], 08/22/2017 22:37:04 08/23/20 17 08/23/2017 activ ated parti al throm bopla stin time, coagu latio n assay , blood PTT (partial thromb time) 25.1 secon ds 24.0-3 2.8 Not Available [facility] (Lab Registration) [address], [place], [address], 08/23/2017 05:52:46 08/23/20 17 08/23/2017 activ ated parti al throm bopla stin time, coagu latio n assay , blood note Unles s other taylor noted testi ng perfo rmed at: [facility] [address] [place] [address] [phone] Rinku montana MD CLIA: [id number] Not Available [facility] (Lab Registration) [address], [place], [address], 08/23/2017 05:52:46 08/23/20 17 08/23/2017 PT/IN R PT (prothrombin time) 10.3 secon ds 9.33-1 0.37 Not Available [facility] (Lab Registration) [address], [place], [address], 08/23/2017 05:52:47 08/23/20 17 08/23/2017 PT/IN R INR 1.04 0.9-1. 1 INR is inten ded to be used only for patie nts on stabl e oral anti- coagu lant thera py. *Ther apeut ic Range s 2.0 - 3.0 Usual Thera peuti c Range 2.5 - 3.5 For patie nts with a histo ry of multi ple deep vein throm bus or mecha nical heart valve s. Not Available [facility] (Lab Registration) [address], [place], [address], 08/23/2017 05:52:47 08/23/20 17 08/23/2017 PT/IN R note Unles s other taylor noted testi ng perfo rmed at: [facility] [place], [place] [id number] [phone] Rinku montana MD CLIA: [id number] Not Available [facility] (Lab Registration) [address], [place], [address], 08/23/2017 05:52:47 08/23/20 17 08/23/2017 CBC w/ auto diff WBC 12.6 10 4.5-11 .5 high Not Available [facility] (Lab Registration) [address] [place], [address], 08/23/2017 05:52:48 08/23/20 17 08/23/2017 CBC w/ auto diff RBC 2.80 10 4.25-5 .57 low Not Available [facility] (Lab Registration) [address] [place], [address], 08/23/2017 05:52:48 08/23/20 17 08/23/2017 CBC w/ auto diff HGB 8.1 g/dL 12.0-1 5.7 low Not Available [facility] (Lab Registration) [address] [place], [address], 08/23/2017 05:52:48 08/23/20 17 08/23/2017 CBC w/ auto diff HCT 27.0 % 36.0-4 7.0 low Not Available [facility] (Lab Registration) [address] [place], [address], 08/23/2017 05:52:48 08/23/20 17 08/23/2017 CBC w/ auto diff MCV 96.4 fL 80-95 high Not Available [facility] (Lab Registration) [address] [place], [address], 08/23/2017 05:52:48 08/23/20 17 08/23/2017 CBC w/ auto diff MCH 28.9 pg 27.0-3 4.0 Not Available [facility] (Lab Registration) [address] [place], [address], 08/23/2017 05:52:48 08/23/20 17 08/23/2017 CBC w/ auto diff MCHC 30.0 g/dL 32.0-3 6.0 low Not Available [facility] (Lab Registration) [address] [place], [address], 08/23/2017 05:52:48 08/23/20 17 08/23/2017 CBC w/ auto diff RDW 15.8 % 12.3-1 5.1 high Not Available [facility] (Lab Registration) [address] [place], [address], 08/23/2017 05:52:48 08/23/20 17 08/23/2017 CBC w/ auto diff platelet count 497 10 150-45 0 high Not Available [facility] (Lab Registration) [address] [place], [address], 08/23/2017 05:52:48 08/23/20 17 08/23/2017 CBC w/ auto diff granulocyte% 41.8 % 40-75 Not Available [facility] (Lab Registration) [address] [place], [address], 08/23/2017 05:52:48 08/23/20 17 08/23/2017 CBC w/ auto diff lymphocyte% 43.7 % 15-57 Not Available [facility] (Lab Registration) [address] [place], [address], 08/23/2017 05:52:48 08/23/20 17 08/23/2017 CBC w/ auto diff monocyte% 12.1 % 4.0-12 .0 high Not Available [facility] (Lab Registration) [address] [place], [address], 08/23/2017 05:52:48 08/23/20 17 08/23/2017 CBC w/ auto diff eosinophil% 2.2 % 0.0-4. 0 Not Available [facility] (Lab Registration) [address] [place], [address], 08/23/2017 05:52:48 08/23/20 17 08/23/2017 CBC w/ auto diff basophil% 0.2 % 0.0-1. 0 Not Available [facility] (Lab Registration) [address], [place], [address], 08/23/2017 05:52:48 08/23/20 17 08/23/2017 CBC w/ auto diff granulocyte# 5.26 10 1.8-8. 62 Not Available [facility] (Lab Registration) [address], [place], [address], 08/23/2017 05:52:48 08/23/20 17 08/23/2017 CBC w/ auto diff lymphocyte# 5.50 10 0.76-5 .40 high Not Available [facility] (Lab Registration) [address] [place], [address], 08/23/2017 05:52:48 08/23/20 17 08/23/2017 CBC w/ auto diff monocyte# 1.52 10 0.18-1 .38 high Not Available [facility] (Lab Registration) [address] [place], [address], 08/23/2017 05:52:48 08/23/20 17 08/23/2017 CBC w/ auto diff eosinophil# 0.28 10 0.00-0 .46 Not Available [facility] (Lab Registration) [address] [place], [address], 08/23/2017 05:52:48 08/23/20 17 08/23/2017 CBC w/ auto diff basophil# 0.03 10 0.-0.1 1 Not Available [facility] (Lab Registration) [address] [place], [address], 08/23/2017 05:52:48 08/23/20 17 08/23/2017 CBC w/ auto diff manual differential NO Not Available [facility] (Lab Registration) [address] [place], [address], 08/23/2017 05:52:48 08/23/20 17 08/23/2017 CBC w/ auto diff note Unles s other taylor noted testi ng perfo rmed at: [facility] [address] [place] [address] [phone] Rinku montana MD CLIA: [id number] Not Available [facility] (Lab Registration) [address] [place], [address], 08/23/2017 05:52:48 08/23/20 17 08/23/2017 CMP, serum or plasm a sodium 142 mmol/ L 136-14 5 Not Available [facility] (Lab Registration) [address] [place], [address], 08/23/2017 05:53:48 08/23/20 17 08/23/2017 CMP, serum or plasm a potassium 3.4 mmol/ L 3.5-5. 1 low Not Available [facility] (Lab Registration) [address] [place], [address], 08/23/2017 05:53:48 08/23/20 17 08/23/2017 CMP, serum or plasm a chloride 107 mmol/ L 98-107 Not Available [facility] (Lab Registration) [address] [place], [address], 08/23/2017 05:53:48 08/23/20 17 08/23/2017 CMP, serum or plasm a carbon dioxide 30 mmol/ L 21-32 Not Available [facility] (Lab Registration) [address] [place], [address], 08/23/2017 05:53:48 08/23/20 17 08/23/2017 CMP, serum or plasm a anion gap 5.0 Not Available [facility] (Lab Registration) [address] [place], [address], 08/23/2017 05:53:48 08/23/20 17 08/23/2017 CMP, serum or plasm a glucose 122 mg/dL 70-110 high Not Available [facility] (Lab Registration) [address] [place], [address], 08/23/2017 05:53:48 08/23/20 17 08/23/2017 CMP, serum or plasm a blood urea nitrogen 4 mg/dL 7-18 low Not Available [facility] (Lab Registration) [address] [place], [address], 08/23/2017 05:53:48 08/23/20 17 08/23/2017 CMP, serum or plasm a creatinine 0.7 mg/dL 0.6-1. 0 Not Available [facility] (Lab Registration) [address] [place], [address], 08/23/2017 05:53:48 08/23/20 17 08/23/2017 CMP, serum or plasm a BUN/creatini ne ratio 5.7 ratio 9-21 low Not Available [facility] (Lab Registration) [address] [place], [address], 08/23/2017 05:53:48 08/23/20 17 08/23/2017 CMP, serum or plasm a estimated glom filtration rate 91 mL/mi n >60- Not Available [facility] (Lab Registration) [address] [place], [address], 08/23/2017 05:53:48 08/23/20 17 08/23/2017 CMP, serum or plasm a total protein 6.3 g/dL 6.4-8. 2 low Not Available [facility] (Lab Registration) [address] [place], [address], 08/23/2017 05:53:48 08/23/20 17 08/23/2017 CMP, serum or plasm a albumin 2.8 g/dL 3.4-5. 0 low Not Available [facility] (Lab Registration) [place], [address], 08/23/2017 05:53:48 08/23/20 17 08/23/2017 CMP, serum or plasm a calcium 8.5 mg/dL 8.5-10 .1 Not Available [facility] (Lab Registration) [address] [place], [address], 08/23/2017 05:53:48 08/23/20 17 08/23/2017 CMP, serum or plasm a corrected calcium 9.5 mg/dL 8.5-10 .1 Not Available [facility] (Lab Registration) [address] [place], [address], 08/23/2017 05:53:48 08/23/20 17 08/23/2017 CMP, serum or plasm a bilirubin total 0.3 mg/dL 0.4-1. 5 low Not Available [facility] (Lab Registration) [address] [place], [address], 08/23/2017 05:53:48 08/23/20 17 08/23/2017 CMP, serum or plasm a AST (SGOT) 13 U/L 15-37 low Not Available [facility] (Lab Registration) [address] [place], [address], 08/23/2017 05:53:48 08/23/20 17 08/23/2017 CMP, serum or plasm a ALT (SGPT) 14 U/L 12-78 Not Available [facility] (Lab Registration) [address] [place], [address], 08/23/2017 05:53:48 08/23/20 17 08/23/2017 CMP, serum or plasm a alk phosphatase 68 U/L 53-141 Not Available [facility] (Lab Registration) [address] [place], [address], 08/23/2017 05:53:48 08/23/20 17 08/23/2017 CMP, serum or plasm a note Unles s other taylor noted testi ng perfo rmed at: [facility] [place] [address] [phone] Rinku montana MD CLIA: [id number] Not Available [facility] (Lab Registration) [address] [place], [address], 08/23/2017 05:53:48 08/24/20 17 08/24/2017 CBC WBC 8.1 10 4.5-11 .5 Not Available [facility] (Lab Registration) [address] [place], [address], 08/24/2017 06:39:58 08/24/20 17 08/24/2017 CBC RBC 3.04 10 4.25-5 .57 low Not Available [facility] (Lab Registration) [address] [place], [address], 08/24/2017 06:39:58 08/24/20 17 08/24/2017 CBC HGB 9.1 g/dL 12.0-1 5.7 low Not Available [facility] (Lab Registration) [address] [place], [address], 08/24/2017 06:39:58 08/24/20 17 08/24/2017 CBC HCT 29.6 % 36.0-4 7.0 low Not Available [facility] (Lab Registration) [address] [place], [address], 08/24/2017 06:39:58 08/24/20 17 08/24/2017 CBC MCV 97.4 fL 80-95 high Not Available [facility] (Lab Registration) [address] [place], [address], 08/24/2017 06:39:58 08/24/20 17 08/24/2017 CBC MCH 29.9 pg 27.0-3 4.0 Not Available [facility] (Lab Registration) [address] [place], [address], 08/24/2017 06:39:58 08/24/20 17 08/24/2017 CBC MCHC 30.7 g/dL 32.0-3 6.0 low Not Available [facility] (Lab Registration) [place] [address], [address], 08/24/2017 06:39:58 08/24/20 17 08/24/2017 CBC RDW 15.8 % 12.3-1 5.1 high Not Available [facility] (Lab Registration) [address] [place], [address], 08/24/2017 06:39:58 08/24/20 17 08/24/2017 CBC platelet count 427 10 150-45 0 Not Available [facility] (Lab Registration) [address] [place], [address], 08/24/2017 06:39:58 08/24/20 17 08/24/2017 CBC note Unles s other taylor noted testi ng perfo rmed at: [facility] [place] [address] [phone] Rinku montana MD CLIA: [id number] Not Available [facility] (Lab Registration) [address] [place], [address], 08/24/2017 06:39:58 08/24/20 17 08/24/2017 CMP, serum or plasm a sodium 140 mmol/ L 136-14 5 Not Available [facility] (Lab Registration) [place], [address], 08/24/2017 06:45:02 08/24/20 17 08/24/2017 CMP, serum or plasm a potassium 3.7 mmol/ L 3.5-5. 1 Not Available [facility] (Lab Registration) [place], [address], 08/24/2017 06:45:02 08/24/20 17 08/24/2017 CMP, serum or plasm a chloride 104 mmol/ L 98-107 Not Available [facility] (Lab Registration) [place], [address], 08/24/2017 06:45:02 08/24/20 17 08/24/2017 CMP, serum or plasm a carbon dioxide 26 mmol/ L 21-32 Not Available [facility] (Lab Registration) [address] [place], [address], 08/24/2017 06:45:02 08/24/20 17 08/24/2017 CMP, serum or plasm a anion gap 10.0 Not Available [facility] (Lab Registration) [address] [place], [address], 08/24/2017 06:45:02 08/24/20 17 08/24/2017 CMP, serum or plasm a glucose 212 mg/dL 70-110 high Not Available [facility] (Lab Registration) [address] [place], [address], 08/24/2017 06:45:02 08/24/20 17 08/24/2017 CMP, serum or plasm a blood urea nitrogen 6 mg/dL 7-18 low Not Available [facility] (Lab Registration) [address] [place], [address], 08/24/2017 06:45:02 08/24/20 17 08/24/2017 CMP, serum or plasm a creatinine 0.7 mg/dL 0.6-1. 0 Not Available [facility] (Lab Registration) [address] [place], [address], 08/24/2017 06:45:02 08/24/20 17 08/24/2017 CMP, serum or plasm a BUN/creatini ne ratio 8.6 ratio 9-21 low Not Available [facility] (Lab Registration) [place], [address], 08/24/2017 06:45:02 08/24/20 17 08/24/2017 CMP, serum or plasm a estimated glom filtration rate 91 mL/mi n >60- Not Available [facility] (Lab Registration) [place], [address], 08/24/2017 06:45:02 08/24/20 17 08/24/2017 CMP, serum or plasm a total protein 7.0 g/dL 6.4-8. 2 Not Available [facility] (Lab Registration) [address] [place], [address], 08/24/2017 06:45:02 08/24/20 17 08/24/2017 CMP, serum or plasm a albumin 3.1 g/dL 3.4-5. 0 low Not Available [facility] (Lab Registration) [address] [place], [address], 08/24/2017 06:45:02 08/24/20 17 08/24/2017 CMP, serum or plasm a calcium 8.9 mg/dL 8.5-10 .1 Not Available [facility] (Lab Registration) [address] [place], [address], 08/24/2017 06:45:02 08/24/20 17 08/24/2017 CMP, serum or plasm a corrected calcium 9.6 mg/dL 8.5-10 .1 Not Available [facility] (Lab Registration) [address] [place], [address], 08/24/2017 06:45:02 08/24/20 17 08/24/2017 CMP, serum or plasm a bilirubin total 0.2 mg/dL 0.4-1. 5 low Not Available [facility] (Lab Registration) [address] [place], [address], 08/24/2017 06:45:02 08/24/20 17 08/24/2017 CMP, serum or plasm a AST (SGOT) 17 U/L 15-37 Not Available [facility] (Lab Registration) [place], [address], 08/24/2017 06:45:02 08/24/20 17 08/24/2017 CMP, serum or plasm a ALT (SGPT) 22 U/L 12-78 Not Available [facility] (Lab Registration) [address] [place], [address], 08/24/2017 06:45:02 08/24/20 17 08/24/2017 CMP, serum or plasm a alk phosphatase 75 U/L 53-141 Not Available [facility] (Lab Registration) [address] [place], [address], 08/24/2017 06:45:02 08/24/20 17 08/24/2017 CMP, serum or plasm a note Unles s other taylor noted testi ng perfo rmed at: [facility] [address] [place], [place] [id number] [phone] Rinku montana MD CLIA: [id number] Not Available [facility] (Lab Registration) [address] [place], [address], 08/24/2017 06:45:02 08/24/20 17 08/24/2017 lipas e, serum or plasm a lipase 54 U/L 65-230 low Not Available [facility] (Lab Registration) [address] [place], [address], 08/24/2017 06:45:03 08/24/20 17 08/24/2017 lipas e, serum or plasm a note Unles s other taylor noted testi ng perfo rmed at: [facility] [address] [place], [place] [id number] [phone] Rinku montana MD CLIA: [id number] Not Available [facility] (Lab Registration) [address] [place], [address], 08/24/2017 06:45:03 08/24/20 17 08/24/2017 urina lysis , compl ete note Unles s other taylor noted testi ng perfo rmed at: [facility] [address] [place], [place] [id number] [phone] Rinku montana MD CLIA: [id number] Not Available [facility] (Lab Registration) [address] [place], [address], 08/25/2017 01:37:52 08/24/20 17 08/25/2017 urina lysis , compl ete color DRK YELLOW yellow Not Available [facility] (Lab Registration) [address] [place], [address], 08/25/2017 01:37:52 08/24/20 17 08/25/2017 urina lysis , compl ete appearance CLEAR clear Not Available [facility] (Lab Registration) [address] [place], [address], 08/25/2017 01:37:52 08/24/20 17 08/25/2017 urina lysis , compl ete glucose NORMAL normal Not Available [facility] (Lab Registration) [address] [place], [address], 08/25/2017 01:37:52 08/24/20 17 08/25/2017 urina lysis , compl ete bilirubin NEGATI VE negati ve Not Available [facility] (Lab Registration) [address] [place], [address], 08/25/2017 01:37:52 08/24/20 17 08/25/2017 urina lysis , compl ete ketone NEGATI VE mg/dL negati ve Not Available [facility] (Lab Registration) [address] [place], [address], 08/25/2017 01:37:52 08/24/20 17 08/25/2017 urina lysis , compl ete specific gravity 1.010 1.005- 1.035 Not Available [facility] (Lab Registration) [address] [place], [address], 08/25/2017 01:37:52 08/24/20 17 08/25/2017 urina lysis , compl ete blood NEGATI VE /mcL negati ve Not Available [facility] (Lab Registration) [address] [place], [address], 08/25/2017 01:37:52 08/24/20 17 08/25/2017 urina lysis , compl ete pH 5.00 5.0-7. 5 Not Available [facility] (Lab Registration) [address] [place], [address], 08/25/2017 01:37:52 08/24/20 17 08/25/2017 urina lysis , compl ete protein 15 (TRACE ) mg/dL negati ve Not Available [facility] (Lab Registration) [address] [place], [address], 08/25/2017 01:37:52 08/24/20 17 08/25/2017 urina lysis , compl ete urobilnogen NORMAL mg/dL normal Not Available [facility] (Lab Registration) [address] [place], [address], 08/25/2017 01:37:52 08/24/20 17 08/25/2017 urina lysis , compl ete nitrite NEGATI VE negati ve Not Available [facility] (Lab Registration) [address] [place], [address], 08/25/2017 01:37:52 08/24/20 17 08/25/2017 urina lysis , compl ete leukocyte esterase TRACE (25) /mcL negati ve Not Available [facility] (Lab Registration) [address] [place], [address], 08/25/2017 01:37:52 08/24/20 17 08/25/2017 urina lysis , compl ete culture? NOT REQUIR ED Not Available [facility] (Lab Registration) [place], [address], 08/25/2017 01:37:52 08/24/20 17 08/25/2017 urina lysis , compl ete RBC NONE SEEN 0-3 Not Available [facility] (Lab Registration) [place], [address], 08/25/2017 01:37:52 08/24/20 17 08/25/2017 urina lysis , compl ete WBC RARE none seen Not Available [facility] (Lab Registration) [place], [address], 08/25/2017 01:37:52 08/24/20 17 08/25/2017 urina lysis , compl ete epithelial cell 5-10 none seen Not Available [facility] (Lab Registration) [address] [place], [address], 08/25/2017 01:37:52 08/24/20 17 08/25/2017 urina lysis , compl ete bacteria NONE SEEN none seen Not Available [facility] (Lab Registration) [address] [place], [address], 08/25/2017 01:37:52 08/29/20 17 08/29/2017 CBC w/ auto diff WBC 12.8 10 4.5-11 .5 high Not Available [facility] (Lab Registration) [address] [place], [address], 08/29/2017 11:15:08 08/29/20 17 08/29/2017 CBC w/ auto diff RBC 3.11 10 4.25-5 .57 low Not Available [facility] (Lab Registration) [address] [place], [address], 08/29/2017 11:15:08 08/29/20 17 08/29/2017 CBC w/ auto diff HGB 8.9 g/dL 12.0-1 5.7 low Not Available [facility] (Lab Registration) [place], [address], 08/29/2017 11:15:08 08/29/20 17 08/29/2017 CBC w/ auto diff HCT 30.0 % 36.0-4 7.0 low Not Available [facility] (Lab Registration) [place], [address], 08/29/2017 11:15:08 08/29/20 17 08/29/2017 CBC w/ auto diff MCV 96.5 fL 80-95 high Not Available [facility] (Lab Registration) [place], [address], 08/29/2017 11:15:08 08/29/20 17 08/29/2017 CBC w/ auto diff MCH 28.6 pg 27.0-3 4.0 Not Available [facility] (Lab Registration) [address] [place], [address], 08/29/2017 11:15:08 08/29/20 17 08/29/2017 CBC w/ auto diff MCHC 29.7 g/dL 32.0-3 6.0 low Not Available [facility] (Lab Registration) [address] [place], [address], 08/29/2017 11:15:08 08/29/20 17 08/29/2017 CBC w/ auto diff RDW 16.4 % 12.3-1 5.1 high Not Available [facility] (Lab Registration) [address] [place], [address], 08/29/2017 11:15:08 08/29/20 17 08/29/2017 CBC w/ auto diff platelet count 664 10 150-45 0 high Not Available [facility] (Lab Registration) [address] [place], [address], 08/29/2017 11:15:08 08/29/20 17 08/29/2017 CBC w/ auto diff granulocyte% 50.1 % 40-75 Not Available [facility] (Lab Registration) [address] [place], [address], 08/29/2017 11:15:08 08/29/20 17 08/29/2017 CBC w/ auto diff lymphocyte% 34.4 % 15-57 Not Available [facility] (Lab Registration) [address] [place], [address], 08/29/2017 11:15:08 08/29/20 17 08/29/2017 CBC w/ auto diff monocyte% 11.8 % 4.0-12 .0 Not Available [facility] (Lab Registration) [address] [place], [address], 08/29/2017 11:15:08 08/29/20 17 08/29/2017 CBC w/ auto diff eosinophil% 3.5 % 0.0-4. 0 Not Available [facility] (Lab Registration) [address] [place], [address], 08/29/2017 11:15:08 08/29/20 17 08/29/2017 CBC w/ auto diff basophil% 0.2 % 0.0-1. 0 Not Available [facility] (Lab Registration) [address] [place], [address], 08/29/2017 11:15:08 08/29/20 17 08/29/2017 CBC w/ auto diff granulocyte# 6.40 10 1.8-8. 62 Not Available [facility] (Lab Registration) [address] [place], [address], 08/29/2017 11:15:08 08/29/20 17 08/29/2017 CBC w/ auto diff lymphocyte# 4.38 10 0.76-5 .40 Not Available [facility] (Lab Registration) [address] [place], [address], 08/29/2017 11:15:08 08/29/20 17 08/29/2017 CBC w/ auto diff monocyte# 1.50 10 0.18-1 .38 high Not Available [facility] (Lab Registration) [address] [place], [address], 08/29/2017 11:15:08 08/29/20 17 08/29/2017 CBC w/ auto diff eosinophil# 0.44 10 0.00-0 .46 Not Available [facility] (Lab Registration) [address] [place], [address], 08/29/2017 11:15:08 08/29/20 17 08/29/2017 CBC w/ auto diff basophil# 0.03 10 0.-0.1 1 Not Available [facility] (Lab Registration) [address] [place], [address], 08/29/2017 11:15:08 08/29/20 17 08/29/2017 CBC w/ auto diff manual differential NO Not Available [facility] (Lab Registration) [address], [place], [address], 08/29/2017 11:15:08 08/29/20 17 08/29/2017 CBC w/ auto diff note Unles s other taylor noted testi ng perfo rmed at: [facility] [address] [place] [address] [phone] Rinku montana MD CLIA: [id number] Not Available [facility] (Lab Registration) [address] [place], [address], 08/29/2017 11:15:08 08/29/20 17 08/29/2017 HbA1c (hemo globi n A1c), blood glycosylated hemoglobin A1C 7.9 % 4.5-6. 2 high Not Available [facility] (Lab Registration) [address] [place], [address], 08/29/2017 11:28:44 08/29/20 17 08/29/2017 HbA1c (hemo globi n A1c), blood note Unles s other taylor noted testi ng perfo rmed at: [facility] [address] [place] [phone] Rinku montana MD CLIA: [id number] Not Available [facility] (Lab Registration) [address] [place], [address], 08/29/2017 11:28:44 08/29/20 17 08/29/2017 CMP, serum or plasm a sodium 145 mmol/ L 136-14 5 Not Available [facility] (Lab Registration) [address] [place], [address], 08/29/2017 11:42:46 08/29/20 17 08/29/2017 CMP, serum or plasm a potassium 3.5 mmol/ L 3.5-5. 1 Not Available [facility] (Lab Registration) [address] [place], [address], 08/29/2017 11:42:46 08/29/20 17 08/29/2017 CMP, serum or plasm a chloride 107 mmol/ L 98-107 Not Available [facility] (Lab Registration) [address] [place], [address], 08/29/2017 11:42:46 08/29/20 17 08/29/2017 CMP, serum or plasm a carbon dioxide 30 mmol/ L 21-32 Not Available [facility] (Lab Registration) [address] [place], [address], 08/29/2017 11:42:46 08/29/20 17 08/29/2017 CMP, serum or plasm a anion gap 8.0 Not Available [facility] (Lab Registration) [address] [place], [address], 08/29/2017 11:42:46 08/29/20 17 08/29/2017 CMP, serum or plasm a glucose 162 mg/dL 70-110 high Not Available [facility] (Lab Registration) [address] [place], [address], 08/29/2017 11:42:46 08/29/20 17 08/29/2017 CMP, serum or plasm a blood urea nitrogen 5 mg/dL 7-18 low Not Available [facility] (Lab Registration) [address] [place], [address], 08/29/2017 11:42:46 08/29/20 17 08/29/2017 CMP, serum or plasm a creatinine 0.7 mg/dL 0.6-1. 0 Not Available [facility] (Lab Registration) [address] [place], [address], 08/29/2017 11:42:46 08/29/20 17 08/29/2017 CMP, serum or plasm a BUN/creatini ne ratio 7.1 ratio 9-21 low Not Available [facility] (Lab Registration) [address] [place], [address], 08/29/2017 11:42:46 08/29/20 17 08/29/2017 CMP, serum or plasm a estimated glom filtration rate 91 mL/mi n >60- Not Available [facility] (Lab Registration) [address] [place], [address], 08/29/2017 11:42:46 08/29/20 17 08/29/2017 CMP, serum or plasm a total protein 6.7 g/dL 6.4-8. 2 Not Available [facility] (Lab Registration) [address] [place], [address], 08/29/2017 11:42:46 08/29/20 17 08/29/2017 CMP, serum or plasm a albumin 3.2 g/dL 3.4-5. 0 low Not Available [facility] (Lab Registration) [address] [place], [address], 08/29/2017 11:42:46 08/29/20 17 08/29/2017 CMP, serum or plasm a calcium 8.7 mg/dL 8.5-10 .1 Not Available [facility] (Lab Registration) [address] [place], [address], 08/29/2017 11:42:46 08/29/20 17 08/29/2017 CMP, serum or plasm a corrected calcium 9.3 mg/dL 8.5-10 .1 Not Available [facility] (Lab Registration) [address] [place], [address], 08/29/2017 11:42:46 08/29/20 17 08/29/2017 CMP, serum or plasm a bilirubin total 0.2 mg/dL 0.4-1. 5 low Not Available [facility] (Lab Registration) [address] [place], [address], 08/29/2017 11:42:46 08/29/20 17 08/29/2017 CMP, serum or plasm a AST (SGOT) 12 U/L 15-37 low Not Available [facility] (Lab Registration) [address] [place], [address], 08/29/2017 11:42:46 08/29/20 17 08/29/2017 CMP, serum or plasm a ALT (SGPT) 15 U/L 12-78 Not Available [facility] (Lab Registration) [address] [place], [address], 08/29/2017 11:42:46 08/29/20 17 08/29/2017 CMP, serum or plasm a alk phosphatase 92 U/L 53-141 Not Available [facility] (Lab Registration) [address] [place], [address], 08/29/2017 11:42:46 08/29/20 17 08/29/2017 CMP, serum or plasm a note Unles s other taylor noted testi ng perfo rmed at: [facility] [address] [facility] [place] [address] [phone] Rinku montana MD CLIA: [id number] Not Available [facility] (Lab Registration) [address] [place], [address], 08/29/2017 11:42:46 09/10/20 17 09/10/2017 CBC w/ auto diff WBC 10.7 10 4.5-11 .5 Not Available [facility] (Lab Registration) [address] [place], [address], 09/10/2017 15:55:29 09/10/20 17 09/10/2017 CBC w/ auto diff RBC 3.70 10 4.25-5 .57 low Not Available [facility] (Lab Registration) [address] [place], [address], 09/10/2017 15:55:29 09/10/20 17 09/10/2017 CBC w/ auto diff HGB 10.2 g/dL 12.0-1 5.7 low Not Available [facility] (Lab Registration) [address] [place], [address], 09/10/2017 15:55:29 09/10/20 17 09/10/2017 CBC w/ auto diff HCT 33.0 % 36.0-4 7.0 low Not Available [facility] (Lab Registration) [address] [place], [address], 09/10/2017 15:55:29 09/10/20 17 09/10/2017 CBC w/ auto diff MCV 89.2 fL 80-95 Not Available [facility] (Lab Registration) [address] [place], [address], 09/10/2017 15:55:29 09/10/20 17 09/10/2017 CBC w/ auto diff MCH 27.6 pg 27.0-3 4.0 Not Available [facility] (Lab Registration) [address] [place], [address], 09/10/2017 15:55:29 09/10/20 17 09/10/2017 CBC w/ auto diff MCHC 30.9 g/dL 32.0-3 6.0 low Not Available [facility] (Lab Registration) [address] [place], [address], 09/10/2017 15:55:29 09/10/20 17 09/10/2017 CBC w/ auto diff RDW 16.8 % 12.3-1 5.1 high Not Available [facility] (Lab Registration) [address] [place], [address], 09/10/2017 15:55:29 09/10/20 17 09/10/2017 CBC w/ auto diff platelet count 636 10 150-45 0 high Not Available [facility] (Lab Registration) [address] [place], [address], 09/10/2017 15:55:29 09/10/20 17 09/10/2017 CBC w/ auto diff granulocyte% 64.5 % 40-75 Not Available [facility] (Lab Registration) [address] [place], [address], 09/10/2017 15:55:29 09/10/20 17 09/10/2017 CBC w/ auto diff lymphocyte% 26.6 % 15-57 Not Available [facility] (Lab Registration) [address] [place], [address], 09/10/2017 15:55:29 09/10/20 17 09/10/2017 CBC w/ auto diff monocyte% 6.7 % 4.0-12 .0 Not Available [facility] (Lab Registration) [address] [place], [address], 09/10/2017 15:55:29 09/10/20 17 09/10/2017 CBC w/ auto diff eosinophil% 2.0 % 0.0-4. 0 Not Available [facility] (Lab Registration) [address] [place], [address], 09/10/2017 15:55:29 09/10/20 17 09/10/2017 CBC w/ auto diff basophil% 0.2 % 0.0-1. 0 Not Available [facility] (Lab Registration) [address] [place], [address], 09/10/2017 15:55:29 09/10/20 17 09/10/2017 CBC w/ auto diff granulocyte# 6.91 10 1.8-8. 62 Not Available [facility] (Lab Registration) [address] [place], [address], 09/10/2017 15:55:29 09/10/20 17 09/10/2017 CBC w/ auto diff lymphocyte# 2.85 10 0.76-5 .40 Not Available [facility] (Lab Registration) [address] [place], [address], 09/10/2017 15:55:29 09/10/20 17 09/10/2017 CBC w/ auto diff monocyte# 0.72 10 0.18-1 .38 Not Available [facility] (Lab Registration) [address], [place], [address], 09/10/2017 15:55:29 09/10/20 17 09/10/2017 CBC w/ auto diff eosinophil# 0.21 10 0.00-0 .46 Not Available [facility] (Lab Registration) [address] [place], [address], 09/10/2017 15:55:29 09/10/20 17 09/10/2017 CBC w/ auto diff basophil# 0.02 10 0.-0.1 1 Not Available [facility] (Lab Registration) [address] [place], [address], 09/10/2017 15:55:29 09/10/20 17 09/10/2017 CBC w/ auto diff manual differential NO Not Available [facility] (Lab Registration) [address] [place], [address], 09/10/2017 15:55:29 09/10/20 17 09/10/2017 CBC w/ auto diff note Unles s other taylor noted testi ng perfo rmed at: [facility] [address] [place] [address] [phone] Rinku montana MD CLIA: [id number] Not Available [facility] (Lab Registration) [address] [place], [address], 09/10/2017 15:55:29 09/10/20 17 09/10/2017 PT/IN R PT (prothrombin time) 27.1 secon ds 9.33-1 0.37 high Not Available [facility] (Lab Registration) [address] [place], [address], 09/10/2017 16:16:51 09/10/20 17 09/10/2017 PT/IN R INR 2.61 0.9-1. 1 high INR is inten ded to be used only for patie nts on stabl e oral anti- coagu lant thera py. *Ther apeut ic Range s 2.0 - 3.0 Usual Thera peuti c Range 2.5 - 3.5 For patie nts with a histo ry of multi ple deep vein throm bus or mecha nical heart valve s. Not Available [facility] (Lab Registration) [address] [place], [address], 09/10/2017 16:16:51 09/10/20 17 09/10/2017 PT/IN R note Unles s other taylor noted testi ng perfo rmed at: [facility] [address] [place] [address] [phone] Rinku montana MD CLIA: [id number] Not Available [facility] (Lab Registration) [address] [place], [address], 09/10/2017 16:16:51 09/10/20 17 09/10/2017 CMP, serum or plasm a sodium 140 mmol/ L 136-14 5 Not Available [facility] (Lab Registration) [address] [place], [address], 09/10/2017 16:33:59 09/10/20 17 09/10/2017 CMP, serum or plasm a potassium 3.7 mmol/ L 3.5-5. 1 Not Available [facility] (Lab Registration) [address] [place], [address], 09/10/2017 16:33:59 09/10/20 17 09/10/2017 CMP, serum or plasm a chloride 102 mmol/ L 98-107 Not Available [facility] (Lab Registration) [address] [place], [address], 09/10/2017 16:33:59 09/10/20 17 09/10/2017 CMP, serum or plasm a carbon dioxide 27 mmol/ L 21-32 Not Available [facility] (Lab Registration) [address] [place], [address], 09/10/2017 16:33:59 09/10/20 17 09/10/2017 CMP, serum or plasm a anion gap 11.0 Not Available [facility] (Lab Registration) [address] [place], [address], 09/10/2017 16:33:59 09/10/20 17 09/10/2017 CMP, serum or plasm a glucose 156 mg/dL 70-110 high Not Available [facility] (Lab Registration) [address] [place], [address], 09/10/2017 16:33:59 09/10/20 17 09/10/2017 CMP, serum or plasm a blood urea nitrogen 5 mg/dL 7-18 low Not Available [facility] [facility] (Lab Registration) [address] [place], [address], 09/10/2017 16:33:59 09/10/20 17 09/10/2017 CMP, serum or plasm a creatinine 0.7 mg/dL 0.6-1. 0 Not Available [facility] (Lab Registration) [address] [place], [address], 09/10/2017 16:33:59 09/10/20 17 09/10/2017 CMP, serum or plasm a BUN/creatini ne ratio 7.1 ratio 9-21 low Not Available [facility] (Lab Registration) [address] [place], [address], 09/10/2017 16:33:59 09/10/20 17 09/10/2017 CMP, serum or plasm a estimated glom filtration rate 91 mL/mi n >60- Not Available [facility] (Lab Registration) [address] [place], [address], 09/10/2017 16:33:59 09/10/20 17 09/10/2017 CMP, serum or plasm a total protein 8.0 g/dL 6.4-8. 2 Not Available [facility] (Lab Registration) [address] [place], [address], 09/10/2017 16:33:59 09/10/20 17 09/10/2017 CMP, serum or plasm a albumin 3.3 g/dL 3.4-5. 0 low Not Available [facility] (Lab Registration) [address] [place], [address], 09/10/2017 16:33:59 09/10/20 17 09/10/2017 CMP, serum or plasm a calcium 8.9 mg/dL 8.5-10 .1 Not Available [facility] (Lab Registration) [address] [place], [address], 09/10/2017 16:33:59 09/10/20 17 09/10/2017 CMP, serum or plasm a corrected calcium 9.5 mg/dL 8.5-10 .1 Not Available [facility] (Lab Registration) [address] [place], [address], 09/10/2017 16:33:59 09/10/20 17 09/10/2017 CMP, serum or plasm a bilirubin total 0.3 mg/dL 0.4-1. 5 low Not Available [facility] (Lab Registration) [address] [place], [address], 09/10/2017 16:33:59 09/10/20 17 09/10/2017 CMP, serum or plasm a AST (SGOT) 13 U/L 15-37 low Not Available [facility] (Lab Registration) [address] [place], [address], 09/10/2017 16:33:59 09/10/20 17 09/10/2017 CMP, serum or plasm a ALT (SGPT) 15 U/L 12-78 Not Available [facility] (Lab Registration) [address] [place], [address], 09/10/2017 16:33:59 09/10/20 17 09/10/2017 CMP, serum or plasm a alk phosphatase 83 U/L 53-141 Not Available [facility] (Lab Registration) [address] [place], [address], 09/10/2017 16:33:59 09/10/20 17 09/10/2017 CMP, serum or plasm a note Unles s other taylor noted testi ng perfo rmed at: [facility] [address] [place] [phone] Rinku montana MD CLIA: [id number] Not Available [facility] (Lab Registration) [address] [place], [address], 09/10/2017 16:33:59 09/10/20 17 09/10/2017 lipas e, serum or plasm a lipase 63 U/L 65-230 low Not Available [facility] (Lab Registration) [address] [place], [address], 09/10/2017 16:34:00 09/10/20 17 09/10/2017 lipas e, serum or plasm a note Unles s other taylor noted testi ng [facility] [address] [place] [address] [phone] Rinku montana MD CLIA: [id number] Not Available [facility] (Lab Registration) [address] [place], [address], 09/10/2017 16:34:00 09/10/20 17 09/10/2017 fecal occul t blood , stool occult blood NEGATI VE negati ve Not Available [facility] (Lab Registration) [address] [place], [address], 09/10/2017 17:23:32 09/10/20 17 09/10/2017 fecal occul t blood , stool occ bld kit lot# [id number] Not Available [facility] (Lab Registration) [address] [place], [address], 09/10/2017 17:23:32 09/10/20 17 09/10/2017 fecal occul t blood , stool occ bld kit exp date 05-02 Not Available [facility] (Lab Registration) [address], [place], [address], 09/10/2017 17:23:32 09/10/20 17 09/10/2017 fecal occul t blood , stool occ bld internal pos P positi ve Not Available [facility] (Lab Registration) [address] [place], [address], 09/10/2017 17:23:32 09/10/20 17 09/10/2017 fecal occul t blood , stool occ bld internal neg N negati ve Not Available [facility] (Lab Registration) [address] [place], [address], 09/10/2017 17:23:32 09/10/20 17 09/10/2017 fecal occul t blood , stool note Unles s other taylor noted testi ng perfo rmed at: [facility] [place] [address] [phone] Rinku montana MD CLIA: [id number] Not Available [facility] (Lab Registration) [address] [place], [address], 09/10/2017 17:23:32 09/10/20 17 09/10/2017 urina lysis , compl ete color YELLOW yellow Not Available [facility] (Lab Registration) [address] [place], [address], 09/10/2017 18:40:40 09/10/20 17 09/10/2017 urina lysis , compl ete appearance CLEAR clear Not Available [facility] (Lab Registration) [address] [place], [address], 09/10/2017 18:40:40 09/10/20 17 09/10/2017 urina lysis , compl ete glucose NORMAL normal Not Available [facility] (Lab Registration) [address] [place], [address], 09/10/2017 18:40:40 09/10/20 17 09/10/2017 urina lysis , compl ete bilirubin NEGATI VE negati ve Not Available [facility] (Lab Registration) [address] [place], [address], 09/10/2017 18:40:40 09/10/20 17 09/10/2017 urina lysis , compl ete ketone 1+ mg/dL negati ve Not Available [facility] (Lab Registration) [address] [place], [address], 09/10/2017 18:40:40 09/10/20 17 09/10/2017 urina lysis , compl ete specific gravity 1.010 1.005- 1.035 Not Available [facility] (Lab Registration) [address] [place], [address], 09/10/2017 18:40:40 09/10/20 17 09/10/2017 urina lysis , compl ete blood NEGATI VE /mcL negati ve Not Available [facility] (Lab Registration) [address] [place], [address], 09/10/2017 18:40:40 09/10/20 17 09/10/2017 urina lysis , compl ete pH 8.00 5.0-7. 5 high Not Available [facility] (Lab Registration) [address] [place], [address], 09/10/2017 18:40:40 09/10/20 17 09/10/2017 urina lysis , compl ete protein NEGATI VE mg/dL negati ve Not Available [facility] (Lab Registration) [address] [place], [address], 09/10/2017 18:40:40 09/10/20 17 09/10/2017 urina lysis , compl ete urobilnogen NORMAL mg/dL normal Not Available [facility] (Lab Registration) [address] [place], [address], 09/10/2017 18:40:40 09/10/20 17 09/10/2017 urina lysis , compl ete nitrite NEGATI VE negati ve Not Available [facility] (Lab Registration) [address] [place], [address], 09/10/2017 18:40:40 09/10/20 17 09/10/2017 urina lysis , compl ete leukocyte esterase NEGATI VE /mcL negati ve Not Available [facility] (Lab Registration) [address] [place], [address], 09/10/2017 18:40:40 09/10/20 17 09/10/2017 urina lysis , compl ete culture? NOT REQUIR ED Not Available [facility] (Lab Registration) [address] [place], [address], 09/10/2017 18:40:40 09/10/20 17 09/10/2017 urina lysis , compl ete RBC 0-3 0-3 Not Available [facility] (Lab Registration) [address] [place], [address], 09/10/2017 18:40:40 09/10/20 17 09/10/2017 urina lysis , compl ete WBC 0-3 none seen Not Available [facility] (Lab Registration) [address] [place], [address], 09/10/2017 18:40:40 09/10/20 17 09/10/2017 urina lysis , compl ete epithelial cell >30 none seen delta Not Available [facility] (Lab Registration) [address] [place], [address], 09/10/2017 18:40:40 09/10/20 17 09/10/2017 urina lysis , compl ete bacteria 1+ none seen Not Available [facility] (Lab Registration) [address] [place], [address], 09/10/2017 18:40:40 09/10/20 17 09/10/2017 urina lysis , compl ete note Unles s other taylor noted testi ng perfo rmed at: [facility] [address] [place] [address] [phone] Rinku montana MD CLIA: [id number] Not Available [facility] (Lab Registration) [address] [place], [address], 09/10/2017 18:40:40 09/11/20 17 09/11/2017 CBC w/ auto diff WBC 10.8 10 4.5-11 .5 Not Available [facility] (Lab Registration) [address] [place], [address], 09/11/2017 08:37:37 09/11/20 17 09/11/2017 CBC w/ auto diff RBC 3.45 10 4.25-5 .57 low Not Available [facility] (Lab Registration) [address] [place], [address], 09/11/2017 08:37:37 09/11/20 17 09/11/2017 CBC w/ auto diff HGB 9.6 g/dL 12.0-1 5.7 low Not Available [facility] (Lab Registration) [address] [place], [address], 09/11/2017 08:37:37 09/11/20 17 09/11/2017 CBC w/ auto diff HCT 31.1 % 36.0-4 7.0 low Not Available [facility] (Lab Registration) [address] [place], [address], 09/11/2017 08:37:37 09/11/20 17 09/11/2017 CBC w/ auto diff MCV 90.1 fL 80-95 Not Available [facility] (Lab Registration) [address] [place], [address], 09/11/2017 08:37:37 09/11/20 17 09/11/2017 CBC w/ auto diff MCH 27.8 pg 27.0-3 4.0 Not Available [facility] (Lab Registration) [address] [place], [address], 09/11/2017 08:37:37 09/11/20 17 09/11/2017 CBC w/ auto diff MCHC 30.9 g/dL 32.0-3 6.0 low Not Available [facility] (Lab Registration) [address] [place], [address], 09/11/2017 08:37:37 09/11/20 17 09/11/2017 CBC w/ auto diff RDW 16.8 % 12.3-1 5.1 high Not Available [facility] (Lab Registration) [address] [place], [address], 09/11/2017 08:37:37 09/11/20 17 09/11/2017 CBC w/ auto diff platelet count 379 10 150-45 0 Not Available [facility] (Lab Registration) [address] [place], [address], 09/11/2017 08:37:37 09/11/20 17 09/11/2017 CBC w/ auto diff granulocyte% 46.7 % 40-75 Not Available [facility] (Lab Registration) [address] [place], [address], 09/11/2017 08:37:37 09/11/20 17 09/11/2017 CBC w/ auto diff lymphocyte% 39.3 % 15-57 Not Available [facility] (Lab Registration) [address] [place], [address], 09/11/2017 08:37:37 09/11/20 17 09/11/2017 CBC w/ auto diff monocyte% 8.7 % 4.0-12 .0 Not Available [facility] (Lab Registration) [address] [place], [address], 09/11/2017 08:37:37 09/11/20 17 09/11/2017 CBC w/ auto diff eosinophil% 4.9 % 0.0-4. 0 high Not Available [facility] (Lab Registration) [address] [place], [address], 09/11/2017 08:37:37 09/11/20 17 09/11/2017 CBC w/ auto diff basophil% 0.4 % 0.0-1. 0 Not Available [facility] (Lab Registration) [address] [place], [address], 09/11/2017 08:37:37 09/11/20 17 09/11/2017 CBC w/ auto diff granulocyte# 5.07 10 1.8-8. 62 Not Available [facility] (Lab Registration) [address] [place], [address], 09/11/2017 08:37:37 09/11/20 17 09/11/2017 CBC w/ auto diff lymphocyte# 4.26 10 0.76-5 .40 Not Available [facility] (Lab Registration) [address] [place], [address], 09/11/2017 08:37:37 09/11/20 17 09/11/2017 CBC w/ auto diff monocyte# 0.94 10 0.18-1 .38 Not Available [facility] (Lab Registration) [address] [place], [address], 09/11/2017 08:37:37 09/11/20 17 09/11/2017 CBC w/ auto diff eosinophil# 0.53 10 0.00-0 .46 high Not Available [facility] (Lab Registration) [address] [place], [address], 09/11/2017 08:37:37 09/11/20 17 09/11/2017 CBC w/ auto diff basophil# 0.04 10 0.-0.1 1 Not Available [facility] (Lab Registration) [address] [place], [address], 09/11/2017 08:37:37 09/11/20 17 09/11/2017 CBC w/ auto diff manual differential NO Not Available [facility] (Lab Registration) [address] [place], [address], 09/11/2017 08:37:37 09/11/20 17 09/11/2017 CBC w/ auto diff note Unles s other taylor noted testi ng perfo rmed at: [facility] [address] [place], [place] [id number] [phone] Rinku montana MD CLIA: [id number] Not Available [facility] (Lab Registration) [address] [place], [address], 09/11/2017 08:37:37 09/11/20 17 09/11/2017 PT/IN R PT (prothrombin time) 31.8 secon ds 9.33-1 0.37 high Not Available [facility] (Lab Registration) [address] [place], [address], 09/11/2017 09:37:27 09/11/20 17 09/11/2017 PT/IN R INR 3.03 0.9-1. 1 high INR is inten ded to be used only for patie nts on stabl e oral anti- coagu lant thera py. *Ther apeut ic Range s 2.0 - 3.0 Usual Thera peuti c Range 2.5 - 3.5 For patie nts with a histo ry of multi ple deep vein throm bus or mecha nical heart valve s. Not Available [facility] (Lab Registration) [address] [place], [address], 09/11/2017 09:37:27 09/11/20 17 09/11/2017 PT/IN R note Unles s other taylor noted testi ng perfo rmed at: [facility] [address], [place] [id number] [phone] Rinku montana MD CLIA: [id number] Not Available [facility] (Lab Registration) [address] [place], [address], 09/11/2017 09:37:27 09/11/20 17 09/11/2017 CMP, serum or plasm a sodium 141 mmol/ L 136-14 5 Not Available [facility] (Lab Registration) [address] [place], [address], 09/11/2017 09:45:52 09/11/20 17 09/11/2017 CMP, serum or plasm a potassium 3.8 mmol/ L 3.5-5. 1 Not Available [facility] (Lab Registration) [address] [place], [address], 09/11/2017 09:45:52 09/11/20 17 09/11/2017 CMP, serum or plasm a chloride 106 mmol/ L 98-107 Not Available [facility] (Lab Registration) [address] [place], [address], 09/11/2017 09:45:52 09/11/20 17 09/11/2017 CMP, serum or plasm a carbon dioxide 27 mmol/ L 21-32 Not Available [facility] (Lab Registration) [address] [place], [address], 09/11/2017 09:45:52 09/11/20 17 09/11/2017 CMP, serum or plasm a anion gap 8.0 Not Available [facility] (Lab Registration) [address] [place], [address], 09/11/2017 09:45:52 09/11/20 17 09/11/2017 CMP, serum or plasm a glucose 125 mg/dL 70-110 high Not Available [facility] (Lab Registration) [address] [place], [address], 09/11/2017 09:45:52 09/11/20 17 09/11/2017 CMP, serum or plasm a blood urea nitrogen 5 mg/dL 7-18 low Not Available [facility] (Lab Registration) [address] [place], [address], 09/11/2017 09:45:52 09/11/20 17 09/11/2017 CMP, serum or plasm a creatinine 0.7 mg/dL 0.6-1. 0 Not Available [facility] (Lab Registration) [address] [place], [address], 09/11/2017 09:45:52 09/11/20 17 09/11/2017 CMP, serum or plasm a BUN/creatini ne ratio 7.1 ratio 9-21 low Not Available [facility] (Lab Registration) [address] [place], [address], 09/11/2017 09:45:52 09/11/20 17 09/11/2017 CMP, serum or plasm a estimated glom filtration rate 91 mL/mi n >60- Not Available [facility] (Lab Registration) [address] [place], [address], 09/11/2017 09:45:52 09/11/20 17 09/11/2017 CMP, serum or plasm a total protein 7.1 g/dL 6.4-8. 2 Not Available [facility] (Lab Registration) [address] [place], [address], 09/11/2017 09:45:52 09/11/20 17 09/11/2017 CMP, serum or plasm a albumin 2.9 g/dL 3.4-5. 0 low Not Available [facility] (Lab Registration) [address] [place], [address], 09/11/2017 09:45:52 09/11/20 17 09/11/2017 CMP, serum or plasm a calcium 8.6 mg/dL 8.5-10 .1 Not Available [facility] (Lab Registration) [address] [place], [address], 09/11/2017 09:45:52 09/11/20 17 09/11/2017 CMP, serum or plasm a corrected calcium 9.5 mg/dL 8.5-10 .1 Not Available [facility] (Lab Registration) [address] [place], [address], 09/11/2017 09:45:52 09/11/20 17 09/11/2017 CMP, serum or plasm a bilirubin total 0.2 mg/dL 0.4-1. 5 low Not Available [facility] (Lab Registration) [address] [place], [address], 09/11/2017 09:45:52 09/11/20 17 09/11/2017 CMP, serum or plasm a AST (SGOT) 14 U/L 15-37 low Not Available [facility] (Lab Registration) [address] [place], [address], 09/11/2017 09:45:52 09/11/20 17 09/11/2017 CMP, serum or plasm a ALT (SGPT) 14 U/L 12-78 Not Available [facility] (Lab Registration) [address] [place], [address], 09/11/2017 09:45:52 09/11/20 17 09/11/2017 CMP, serum or plasm a alk phosphatase 70 U/L 53-141 Not Available [facility] (Lab Registration) [address] [place], [address], 09/11/2017 09:45:52 09/11/20 17 09/11/2017 CMP, serum or plasm a note Unles s other taylor noted testi ng perfo rmed at: [facility] [place] [address] [phone] Rinku montana MD CLIA: [id number] Not Available [facility] (Lab Registration) [address] [place], [address], 09/11/2017 09:45:52 09/12/20 17 09/12/2017 hemog lobin (Hb), blood HGB 9.0 g/dL 12.0-1 5.7 low Not Available [facility] (Lab Registration) [address], [place], [address], 09/12/2017 08:21:40 09/12/20 17 09/12/2017 hemog lobin (Hb), blood note Unles s other taylor noted testi ng perfo rmed at: [facility] [address], [place] [id number] [phone] Rinku montana MD CLIA: [id number] Not Available [facility] (Lab Registration) [address], [place], [address], 09/12/2017 08:21:40 09/12/20 17 09/12/2017 PT/IN R PT (prothrombin time) 37.0 secon ds 9.33-1 0.37 high Not Available [facility] (Lab Registration) [address], [place], [address], 09/12/2017 08:21:41 09/12/20 17 09/12/2017 PT/IN R INR 3.50 0.9-1. 1 high INR is inten ded to be used only for patie nts on stabl e oral anti- coagu lant thera py. *Ther apeut ic Range s 2.0 - 3.0 Usual Thera peuti c Range 2.5 - 3.5 For patie nts with a histo ry of multi ple deep vein throm bus or mecha nical heart valve s. Not Available [facility] (Lab Registration) [address], [place], [address], 09/12/2017 08:21:41 09/12/20 17 09/12/2017 PT/IN R note Unles s other taylor noted testi ng perfo rmed at: [facility] [address], [place] [id number] [phone] Rinku montana MD CLIA: [id number] Not Available [facility] (Lab Registration) [address] [place], [address], 09/12/2017 08:21:41 10/10/20 17 10/10/2017 CBC w/ auto diff WBC 12.3 10 4.5-11 .5 high Not Available [facility] (Lab Registration) [address] [place], [address], 10/10/2017 13:34:53 10/10/20 17 10/10/2017 CBC w/ auto diff RBC 3.43 10 4.25-5 .57 low Not Available [facility] (Lab Registration) [address] [place], [address], 10/10/2017 13:34:53 10/10/20 17 10/10/2017 CBC w/ auto diff HGB 8.7 g/dL 12.0-1 5.7 low Not Available [facility] (Lab Registration) [address] [place], [address], 10/10/2017 13:34:53 10/10/20 17 10/10/2017 CBC w/ auto diff HCT 29.8 % 36.0-4 7.0 low Not Available [facility] (Lab Registration) [address] [place], [address], 10/10/2017 13:34:53 10/10/20 17 10/10/2017 CBC w/ auto diff MCV 86.9 fL 80-95 Not Available [facility] (Lab Registration) [address] [place], [address], 10/10/2017 13:34:53 10/10/20 17 10/10/2017 CBC w/ auto diff MCH 25.4 pg 27.0-3 4.0 low Not Available [facility] (Lab Registration) [address] [place], [address], 10/10/2017 13:34:53 10/10/20 17 10/10/2017 CBC w/ auto diff MCHC 29.2 g/dL 32.0-3 6.0 low Not Available [facility] (Lab Registration) [address] [place], [address], 10/10/2017 13:34:53 10/10/20 17 10/10/2017 CBC w/ auto diff RDW 18.2 % 12.3-1 5.1 high Not Available [facility] (Lab Registration) [address] [place], [address], 10/10/2017 13:34:53 10/10/20 17 10/10/2017 CBC w/ auto diff platelet count 474 10 150-45 0 high Not Available [facility] (Lab Registration) [address] [place], [address], 10/10/2017 13:34:53 10/10/20 17 10/10/2017 CBC w/ auto diff granulocyte% 43.8 % 40-75 Not Available [facility] (Lab Registration) [address] [place], [address], 10/10/2017 13:34:53 10/10/20 17 10/10/2017 CBC w/ auto diff lymphocyte% 45.1 % 15-57 Not Available [facility] (Lab Registration) [address] [place], [address], 10/10/2017 13:34:53 10/10/20 17 10/10/2017 CBC w/ auto diff monocyte% 9.0 % 4.0-12 .0 Not Available [facility] (Lab Registration) [address] [place], [address], 10/10/2017 13:34:53 10/10/20 17 10/10/2017 CBC w/ auto diff eosinophil% 1.8 % 0.0-4. 0 Not Available [facility] (Lab Registration) [address] [place], [address], 10/10/2017 13:34:53 10/10/20 17 10/10/2017 CBC w/ auto diff basophil% 0.3 % 0.0-1. 0 Not Available [facility] (Lab Registration) [address] [place], [address], 10/10/2017 13:34:53 10/10/20 17 10/10/2017 CBC w/ auto diff granulocyte# 5.38 10 1.8-8. 62 Not Available [facility] (Lab Registration) [address] [place], [address], 10/10/2017 13:34:53 10/10/20 17 10/10/2017 CBC w/ auto diff lymphocyte# 5.53 10 0.76-5 .40 high Not Available [facility] (Lab Registration) [address], [place], [address], 10/10/2017 13:34:53 10/10/20 17 10/10/2017 CBC w/ auto diff monocyte# 1.10 10 0.18-1 .38 Not Available [facility] (Lab Registration) [address] [place], [address], 10/10/2017 13:34:53 10/10/20 17 10/10/2017 CBC w/ auto diff eosinophil# 0.22 10 0.00-0 .46 Not Available [facility] (Lab Registration) [address] [place], [address], 10/10/2017 13:34:53 10/10/20 17 10/10/2017 CBC w/ auto diff basophil# 0.04 10 0.-0.1 1 Not Available [facility] (Lab Registration) [address] [place], [address], 10/10/2017 13:34:53 10/10/20 17 10/10/2017 CBC w/ auto diff manual differential NO Not Available [facility] (Lab Registration) [address] [place], [address], 10/10/2017 13:34:53 10/10/20 17 10/10/2017 CBC w/ auto diff note Unles s other taylor noted testi ng perfo rmed at: [facility] [address] [place] [place] [address] [phone] Rinku montana MD CLIA: [id number] Not Available [facility] (Lab Registration) [address] [place], [address], 10/10/2017 13:34:53 10/10/20 17 10/10/2017 CMP, serum or plasm a sodium 138 mmol/ L 136-14 5 Not Available [facility] (Lab Registration) [address] [place], [address], 10/10/2017 13:45:29 10/10/20 17 10/10/2017 CMP, serum or plasm a potassium 3.2 mmol/ L 3.5-5. 1 low Not Available [facility] (Lab Registration) [address] [place], [address], 10/10/2017 13:45:29 10/10/20 17 10/10/2017 CMP, serum or plasm a chloride 103 mmol/ L 98-107 Not Available [facility] (Lab Registration) [address] [place], [address], 10/10/2017 13:45:29 10/10/20 17 10/10/2017 CMP, serum or plasm a carbon dioxide 32 mmol/ L 21-32 Not Available [facility] (Lab Registration) [address] [place], [address], 10/10/2017 13:45:29 10/10/20 17 10/10/2017 CMP, serum or plasm a anion gap 3.0 Not Available [facility] (Lab Registration) [address] [place], [address], 10/10/2017 13:45:29 10/10/20 17 10/10/2017 CMP, serum or plasm a glucose 136 mg/dL 70-110 high Not Available [facility] (Lab Registration) [address] [place], [address], 10/10/2017 13:45:29 10/10/20 17 10/10/2017 CMP, serum or plasm a blood urea nitrogen 6 mg/dL 7-18 low Not Available [facility] (Lab Registration) [address] [place], [address], 10/10/2017 13:45:29 10/10/20 17 10/10/2017 CMP, serum or plasm a creatinine 0.7 mg/dL 0.6-1. 0 Not Available [facility] (Lab Registration) [address] [place], [address], 10/10/2017 13:45:29 10/10/20 17 10/10/2017 CMP, serum or plasm a BUN/creatini ne ratio 8.6 ratio 9-21 low Not Available [facility] (Lab Registration) [address] [place], [address], 10/10/2017 13:45:29 10/10/20 17 10/10/2017 CMP, serum or plasm a estimated glom filtration rate 91 mL/mi n >60- Not Available [facility] (Lab Registration) [address] [place], [address], 10/10/2017 13:45:29 10/10/20 17 10/10/2017 CMP, serum or plasm a total protein 7.3 g/dL 6.4-8. 2 Not Available [facility] (Lab Registration) [address] [place], [address], 10/10/2017 13:45:29 10/10/20 17 10/10/2017 CMP, serum or plasm a albumin 3.0 g/dL 3.4-5. 0 low Not Available [facility] (Lab Registration) [address] [place], [address], 10/10/2017 13:45:29 10/10/20 17 10/10/2017 CMP, serum or plasm a calcium 8.8 mg/dL 8.5-10 .1 Not Available [facility] (Lab Registration) [address] [place], [address], 10/10/2017 13:45:29 10/10/20 17 10/10/2017 CMP, serum or plasm a corrected calcium 9.6 mg/dL 8.5-10 .1 Not Available [facility] (Lab Registration) [address] [place], [address], 10/10/2017 13:45:29 10/10/20 17 10/10/2017 CMP, serum or plasm a bilirubin total 0.3 mg/dL 0.4-1. 5 low Not Available [facility] (Lab Registration) [address] [place], [address], 10/10/2017 13:45:29 10/10/20 17 10/10/2017 CMP, serum or plasm a AST (SGOT) 14 U/L 15-37 low Not Available [facility] (Lab Registration) [address] [place], [address], 10/10/2017 13:45:29 10/10/20 17 10/10/2017 CMP, serum or plasm a ALT (SGPT) 14 U/L 12-78 Not Available [facility] (Lab Registration) [address] [place], [address], 10/10/2017 13:45:29 10/10/20 17 10/10/2017 CMP, serum or plasm a alk phosphatase 70 U/L 53-141 Not Available [facility] (Lab Registration) [address] [place], [address], 10/10/2017 13:45:29 10/10/20 17 10/10/2017 CMP, serum or plasm a note Unles s other taylor noted testi ng perfo rmed at: [facility] [place] [address] [phone] Rinku montana MD CLIA: [id number] Not Available [facility] (Lab Registration) [address] [place], [address], 10/10/2017 13:45:29 10/10/20 17 10/10/2017 influ gavin virus A+B Ag, nasop haryn geal flu A NEGATI VE negati ve Not Available [facility] (Lab Registration) [address], [place], [address], 10/10/2017 13:50:45 10/10/20 17 10/10/2017 influ gavin virus A+B Ag, nasop haryn geal flu B NEGATI VE negati ve Not Available [facility] (Lab Registration) [address], [place], [address], 10/10/2017 13:50:45 10/10/20 17 10/10/2017 influ gavin virus A+B Ag, nasop haryn geal flu A int control neg N negati ve Not Available [facility] (Lab Registration) [address] [place], [address], 10/10/2017 13:50:45 10/10/20 17 10/10/2017 influ gavin virus A+B Ag, nasop haryn geal flu A int control pos P positi ve Not Available [facility] (Lab Registration) [address] [place], [address], 10/10/2017 13:50:45 10/10/20 17 10/10/2017 influ gavin virus A+B Ag, nasop haryn geal flu lot # [id number] Not Available [facility] (Lab Registration) [address] [place], [address], 10/10/2017 13:50:45 10/10/20 17 10/10/2017 influ gavin virus A+B Ag, nasop haryn geal flu exp date [id number] Not Available [facility] (Lab Registration) [address] [place], [address], 10/10/2017 13:50:45 10/10/20 17 10/10/2017 influ gavin virus A+B Ag, nasop haryn geal note Unles s other taylor noted testi ng perfo rmed at: [facility] [address] [place] [address] [phone] Rinku montana MD CLIA: [id number] Not Available [facility] (Lab Registration) [address] [place], [address], 10/10/2017 13:50:45 10/10/20 17 10/10/2017 CBC WBC 15.1 10 4.5-11 .5 high Not Available [facility] (Lab Registration) [address] [place], [address], 10/10/2017 20:24:16 10/10/20 17 10/10/2017 CBC RBC 3.58 10 4.25-5 .57 low Not Available [facility] (Lab Registration) [address] [place], [address], 10/10/2017 20:24:16 10/10/20 17 10/10/2017 CBC HGB 9.4 g/dL 12.0-1 5.7 low Not Available [facility] (Lab Registration) [address] [place], [address], 10/10/2017 20:24:16 10/10/20 17 10/10/2017 CBC HCT 30.9 % 36.0-4 7.0 low Not Available [facility] (Lab Registration) [address] [place], [address], 10/10/2017 20:24:16 10/10/20 17 10/10/2017 CBC MCV 86.3 fL 80-95 Not Available [facility] (Lab Registration) [address] [place], [address], 10/10/2017 20:24:16 10/10/20 17 10/10/2017 CBC MCH 26.3 pg 27.0-3 4.0 low Not Available [facility] (Lab Registration) [address] [place], [address], 10/10/2017 20:24:16 10/10/20 17 10/10/2017 CBC MCHC 30.4 g/dL 32.0-3 6.0 low Not Available [facility] (Lab Registration) [address] [place], [address], 10/10/2017 20:24:16 10/10/20 17 10/10/2017 CBC RDW 18.2 % 12.3-1 5.1 high Not Available [facility] (Lab Registration) [address] [place], [address], 10/10/2017 20:24:16 10/10/20 17 10/10/2017 CBC platelet count 496 10 150-45 0 high Not Available [facility] (Lab Registration) [address] [place], [address], 10/10/2017 20:24:16 10/10/20 17 10/10/2017 CBC note Unles s other taylor noted testi ng perfo rmed at: [facility] [address] [place] [address] [phone] Rinku montana MD CLIA: [id number] Not Available [facility] (Lab Registration) [address] [place], [address], 10/10/2017 20:24:16 10/10/20 17 10/10/2017 TSH, serum or plasm a thyroid stimulating hormone 3.39 mIU/m L 0.34-4 .80 Not Available [facility] (Lab Registration) [address] [place], [address], 10/10/2017 20:48:12 10/10/20 17 10/10/2017 TSH, serum or plasm a note Unlgregg chambers other taylor noted testi ng perfo rmed at: [facility] [address] [place] [address] [phone] Rinku montana MD CLIA: [id number] Not Available [facility] (Lab Registration) [address] [place], [address], 10/10/2017 20:48:12 10/10/20 17 10/10/2017 T4, total , serum T4 total 6.2 ug/dL 4.8-13 .9 Not Available [facility] (Lab Registration) [address] [place], [address], 10/10/2017 20:48:13 10/10/20 17 10/10/2017 T4, total , serum note Unles s other taylor noted testi ng perfo rmed at: [facility] [address] [place] [phone] Rinku montana MD CLIA: [id number] Not Available [facility] (Lab Registration) [address] [place], [address], 10/10/2017 20:48:13 10/10/20 17 10/10/2017 magne sium, serum or plasm a magnesium 1.9 mg/dL 1.8-2. 4 Not Available [facility] (Lab Registration) [address] [place], [address], 10/10/2017 20:48:14 10/10/20 17 10/10/2017 magne sium, serum or plasm a note Unles s other taylor noted testi ng perfo rmed at: [facility] [address] [place] [phone] Rinku montana MD CLIA: [id number] Not Available [facility] (Lab Registration) [address] [place], [address], 10/10/2017 20:48:14 10/10/20 17 10/10/2017 phosp horus , serum or plasm a phosphorus 2.6 mg/dL 2.5-4. 9 Not Available [facility] (Lab Registration) [address] [place], [address], 10/10/2017 20:48:15 10/10/20 17 10/10/2017 phosp horus , serum or plasm a note Unles s other taylor noted testi ng perfo rmed at: [facility] [address] [place] [address] [phone] Rinku montana MD CLIA: [id number] Not Available [facility] (Lab Registration) [address] , [place], [address], 10/10/2017 20:48:15 10/10/20 17 10/10/2017 tropo olga I, serum or plasm a troponin <0.04 NG/mL 0.0-0. 056 Not Available [facility] (Lab Registration) [address], [place], [address], 10/10/2017 20:48:15 10/10/20 17 10/10/2017 tropo olga I, serum or plasm a note Unlgregg chambers other taylor noted testi ng perfo rmed at: [facility] [address] [place] [address] [phone] Rinku montana MD CLIA: [id number] Not Available [facility] (Lab Registration) [address], [place], [address], 10/10/2017 20:48:15 10/10/20 17 10/10/2017 pro BNP (pro B-typ e natri ureti c pepti de), serum or plasm a B-type natriuretic peptide BNP 112 pg/mL 0.0-10 0 high Non-C HF: Less than 100 pg/mL Class I: Great er than 100 pg/mL - Patie nts have no limit ation s of physi rick activ ity and have no sympt oms with ordin emma physi rick activ ity. Class II: Great er than 221 pg/mL - Patie nts have a sligh t limit ation of physi rick activ ity and have sympt oms with ordin emma physi rick activ ity. Class III: Great er than 459 pg/mL - Patie nts have a marke d limit ation of physi rick activ ity and have sympt oms with less than ordin emma physi rick activ ity, but not at rest. Class IV : Great er than 1006 pg/mL -Ambar ents are unabl e to perfo rm any physi rick activ ity witho ut disco mfort . Not Available [facility] (Lab Registration) [address] [place], [address], 10/10/2017 20:58:39 10/10/20 17 10/10/2017 pro BNP (pro B-typ e natri ureti c pepti de), serum or plasm a note Unles s other taylor noted testi ng perfo rmed at: [facility] [place] [address] [phone] Rinku montana MD CLIA: [id number] Not Available [facility] (Lab Registration) [address] [place], [address], 10/10/2017 20:58:39 10/11/20 17 10/11/2017 CBC w/ auto diff WBC 13.0 10 4.5-11 .5 high Not Available [facility] (Lab Registration) [address] [place], [address], 10/11/2017 06:19:39 10/11/20 17 10/11/2017 CBC w/ auto diff RBC 3.78 10 4.25-5 .57 low Not Available [facility] (Lab Registration) [address] [place], [address], 10/11/2017 06:19:39 10/11/20 17 10/11/2017 CBC w/ auto diff HGB 9.9 g/dL 12.0-1 5.7 low Not Available [facility] (Lab Registration) [address] [place], [address], 10/11/2017 06:19:39 10/11/20 17 10/11/2017 CBC w/ auto diff HCT 32.7 % 36.0-4 7.0 low Not Available [facility] (Lab Registration) [address] [place], [address], 10/11/2017 06:19:39 10/11/20 17 10/11/2017 CBC w/ auto diff MCV 86.5 fL 80-95 Not Available [facility] (Lab Registration) [address] [place], [address], 10/11/2017 06:19:39 10/11/20 17 10/11/2017 CBC w/ auto diff MCH 26.2 pg 27.0-3 4.0 low Not Available [facility] (Lab Registration) [address] [place], [address], 10/11/2017 06:19:39 10/11/20 17 10/11/2017 CBC w/ auto diff MCHC 30.3 g/dL 32.0-3 6.0 low Not Available [facility] (Lab Registration) [address] [place], [address], 10/11/2017 06:19:39 10/11/20 17 10/11/2017 CBC w/ auto diff RDW 18.4 % 12.3-1 5.1 high Not Available [facility] (Lab Registration) [address] [place], [address], 10/11/2017 06:19:39 10/11/20 17 10/11/2017 CBC w/ auto diff platelet count 434 10 150-45 0 Not Available [facility] (Lab Registration) [address] [place], [address], 10/11/2017 06:19:39 10/11/20 17 10/11/2017 CBC w/ auto diff granulocyte% 42.3 % 40-75 Not Available [facility] (Lab Registration) [address] [place], [address], 10/11/2017 06:19:39 10/11/20 17 10/11/2017 CBC w/ auto diff lymphocyte% 46.3 % 15-57 Not Available [facility] (Lab Registration) [address] [place], [address], 10/11/2017 06:19:39 10/11/20 17 10/11/2017 CBC w/ auto diff monocyte% 8.9 % 4.0-12 .0 Not Available [facility] (Lab Registration) [address] [place], [address], 10/11/2017 06:19:39 10/11/20 17 10/11/2017 CBC w/ auto diff eosinophil% 2.2 % 0.0-4. 0 Not Available [facility] (Lab Registration) [address] [place], [address], 10/11/2017 06:19:39 10/11/20 17 10/11/2017 CBC w/ auto diff basophil% 0.3 % 0.0-1. 0 Not Available [facility] (Lab Registration) [address] [place], [address], 10/11/2017 06:19:39 10/11/20 17 10/11/2017 CBC w/ auto diff granulocyte# 5.51 10 1.8-8. 62 Not Available [facility] (Lab Registration) [address] [place], [address], 10/11/2017 06:19:39 10/11/20 17 10/11/2017 CBC w/ auto diff lymphocyte# 6.03 10 0.76-5 .40 high Not Available [facility] (Lab Registration) [address] [place], [address], 10/11/2017 06:19:39 10/11/20 17 10/11/2017 CBC w/ auto diff monocyte# 1.16 10 0.18-1 .38 Not Available [facility] (Lab Registration) [address] [place], [address], 10/11/2017 06:19:39 10/11/20 17 10/11/2017 CBC w/ auto diff eosinophil# 0.28 10 0.00-0 .46 Not Available [facility] (Lab Registration) [address] [place], [address], 10/11/2017 06:19:39 10/11/20 17 10/11/2017 CBC w/ auto diff basophil# 0.04 10 0.-0.1 1 Not Available [facility] (Lab Registration) [address] [place], [address], 10/11/2017 06:19:39 10/11/20 17 10/11/2017 CBC w/ auto diff manual differential NO Not Available [facility] (Lab Registration) [address] [place], [address], 10/11/2017 06:19:39 10/11/20 17 10/11/2017 CBC w/ auto diff note Unles s other taylor noted testi ng perfo rmed at: [facility] [address] [place] [address] [phone] Rinku montana MD CLIA: [id number] Not Available [facility] (Lab Registration) [address] [place], [address], 10/11/2017 06:19:39 10/11/20 17 10/11/2017 BMP, serum or plasm a sodium 138 mmol/ L 136-14 5 Not Available [facility] (Lab Registration) [address] [place], [address], 10/11/2017 06:25:46 10/11/20 17 10/11/2017 BMP, serum or plasm a potassium 3.4 mmol/ L 3.5-5. 1 low Not Available [facility] (Lab Registration) [address] [place], [address], 10/11/2017 06:25:46 10/11/20 17 10/11/2017 BMP, serum or plasm a chloride 102 mmol/ L 98-107 Not Available [facility] (Lab Registration) [address] [place], [address], 10/11/2017 06:25:46 10/11/20 17 10/11/2017 BMP, serum or plasm a carbon dioxide 30 mmol/ L 21-32 Not Available [facility] (Lab Registration) [address] [place], [address], 10/11/2017 06:25:46 10/11/20 17 10/11/2017 BMP, serum or plasm a anion gap 6.0 Not Available [facility] (Lab Registration) [address] [place], [address], 10/11/2017 06:25:46 10/11/20 17 10/11/2017 BMP, serum or plasm a glucose 120 mg/dL 70-110 high Not Available [facility] (Lab Registration) [address] [place], [address], 10/11/2017 06:25:46 10/11/20 17 10/11/2017 BMP, serum or plasm a blood urea nitrogen 5 mg/dL 7-18 low Not Available [facility] (Lab Registration) [address] [place], [address], 10/11/2017 06:25:46 10/11/20 17 10/11/2017 BMP, serum or plasm a creatinine 0.8 mg/dL 0.6-1. 0 Not Available [facility] (Lab Registration) [address] [place], [address], 10/11/2017 06:25:46 10/11/20 17 10/11/2017 BMP, serum or plasm a BUN/creatini ne ratio 6.3 ratio 9-21 low Not Available [facility] (Lab Registration) [address] [place], [address], 10/11/2017 06:25:46 10/11/20 17 10/11/2017 BMP, serum or plasm a estimated glom filtration rate 78 mL/mi n >60- Not Available [facility] (Lab Registration) [address] [place], [address], 10/11/2017 06:25:46 10/11/20 17 10/11/2017 BMP, serum or plasm a calcium 8.7 mg/dL 8.5-10 .1 Not Available [facility] (Lab Registration) [address] [place], [address], 10/11/2017 06:25:46 10/11/20 17 10/11/2017 BMP, serum or plasm a note Unles s other taylor noted testi ng perfo rmed at: [facility] [address] [facility] [place], [place] [address] [phone] Rinku montana MD CLIA: [id number] Not Available [facility] (Lab Registration) [address] [place], [address], 10/11/2017 06:25:46 10/12/20 17 10/12/2017 PT/IN R PT (prothrombin time) 10.4 secon ds 9.33-1 0.37 high Not Available [facility] (Lab Registration) [address] [place], [address], 10/12/2017 06:29:28 10/12/20 17 10/12/2017 PT/IN R INR 1.05 0.9-1. 1 INR is inten ded to be used only for patie nts on stabl e oral anti- coagu lant thera py. *Ther apeut ic Range s 2.0 - 3.0 Usual Thera peuti c Range 2.5 - 3.5 For patie nts with a histo ry of multi ple deep vein throm bus or mecha nical heart valve s. Not Available [facility] (Lab Registration) [address] [place], [address], 10/12/2017 06:29:28 10/12/20 17 10/12/2017 PT/IN R note Unles s other taylor noted testi ng perfo rmed at: [facility] [address] [place], [place] [address] [phone] Rinku montana MD CLIA: [id number] Not Available [facility] (Lab Registration) [address], [place], [address], 10/12/2017 06:29:28 01/18/20 18 01/18/2018 lipid panel , serum cholesterol, total 182 mg/dL <200 normal Not Available [facility] [place] [facility] [address] [place], [address], 01/18/2018 12:01:46 01/18/20 18 01/18/2018 lipid panel , serum HDL cholesterol 42 mg/dL >50 low Not Available [facility] [place] [facility] [address] [place], [address], 01/18/2018 12:01:46 01/18/20 18 01/18/2018 lipid panel , serum triglyceride s 145 mg/dL <150 normal Not Available [facility] [place] [facility] [address] [facility], [place], [address], 01/18/2018 12:01:46 01/18/20 18 01/18/2018 lipid panel , serum LDL-choleste rol 114 mg/dL _(rick c) high Refer ence range : <100 Yanely able range <100 mg/dL for patie nts with CHD or diabe too and <70 mg/dL for diabe tic patie nts with known heart disea se. LDL-C is now calcu lated using the Sandhya huitron-Hop kins tonyau maria guadalupe n, which is a valid ated novel sannao d maude montana accur acy than the Fried mikaela equat ion in the estim ation of LDL-C . Sandhya huitron SS et al. SABRINA. 2013; 310(1 9): 2061- 2068 (http ://ed angelaati on.Qu Suri Withings. com/f aq/FA Q164) Not Available [facility] [place] [facility] [address] [place], [address], 01/18/2018 12:01:46 01/18/20 18 01/18/2018 lipid panel , serum chol/HDLC ratio 4.3 (calc ) <5.0 normal Not Available [facility] [place] [facility] [address] [facility] [place], [address], 01/18/2018 12:01:46 01/18/20 18 01/18/2018 lipid panel , serum non HDL cholesterol 140 mg/dL _(rick c) <130 high For patie nts with diabe too plus 1 major ASCVD risk facto r, treat ing to a non-H DL-C goal of <100 mg/dL (LDL- C of <70 mg/dL ) is consi celia clarke optio n. Not Available [facility] [place] [facility] [address] [facility], [place], [address], 01/18/2018 12:01:46 01/18/20 18 01/18/2018 CMP, serum or plasm a glucose 98 mg/dL 65-139 normal Non-f astin g refer ence inter joce Not Available [facility] [place] [facility] [address] [place], [address], 01/18/2018 12:01:47 01/18/20 18 01/18/2018 CMP, serum or plasm a urea nitrogen (BUN) 14 mg/dL 7-25 normal Not Available [facility] [place] [facility] [address] [place], [address], 01/18/2018 12:01:47 01/18/20 18 01/18/2018 CMP, serum or plasm a creatinine 0.66 mg/dL 0.50-0 .99 normal For patie nts >49 years of age, the refer ence limit for Creat inine is appro ximat kelly 13% highe r for peopl e ident ified as Afric an-Am yusuf n. Not Available [facility] [place] [facility] [address] [place], [address], 01/18/2018 12:01:47 01/18/20 18 01/18/2018 CMP, serum or plasm a eGFR non-afr. somali 96 mL/mi n/1.7 3m2 > or = 60 normal Not Available [facility] [address] [facility] [place], [address], 01/18/2018 12:01:47 01/18/20 18 01/18/2018 CMP, serum or plasm a eGFR 111 mL/mi n/1.7 3m2 > or = 60 normal Not Available [facility] [address] [facility] [place], [address], 01/18/2018 12:01:47 01/18/20 18 01/18/2018 CMP, serum or plasm a BUN/creatini ne ratio NOT APPLIC ABLE (calc ) 6-22 Not Available [facility] [address] [place], [place] [address], [address], 01/18/2018 12:01:47 01/18/20 18 01/18/2018 CMP, serum or plasm a sodium 140 mmol/ L 135-14 6 normal Not Available [facility] [facility] [place], [address], 01/18/2018 12:01:47 01/18/20 18 01/18/2018 CMP, serum or plasm a potassium 4.2 mmol/ L 3.5-5. 3 normal Not Available [facility] [facility] [place], [address], 01/18/2018 12:01:47 01/18/20 18 01/18/2018 CMP, serum or plasm a chloride 108 mmol/ L 98-110 normal Not Available [facility] [place], [address], 01/18/2018 12:01:47 01/18/20 18 01/18/2018 CMP, serum or plasm a carbon dioxide 26 mmol/ L 20-31 normal Not Available [facility] [address] [place], [place] [address] [place], [address], 01/18/2018 12:01:47 01/18/20 18 01/18/2018 CMP, serum or plasm a calcium 9.0 mg/dL 8.6-10 .4 normal Not Available [facility] [address] [place], [address], 01/18/2018 12:01:47 01/18/20 18 01/18/2018 CMP, serum or plasm a protein, total 7.1 g/dL 6.1-8. 1 normal Not Available [facility] [address] [place], [address], 01/18/2018 12:01:47 01/18/20 18 01/18/2018 CMP, serum or plasm a albumin 4.0 g/dL 3.6-5. 1 normal Not Available [facility] [address] [place], [address], 01/18/2018 12:01:47 01/18/20 18 01/18/2018 CMP, serum or plasm a globulin 3.1 g/dL_ (calc ) 1.9-3. 7 normal Not Available [facility] [address] [place], [address], 01/18/2018 12:01:47 01/18/20 18 01/18/2018 CMP, serum or plasm a albumin/glob ulin ratio 1.3 (calc ) 1.0-2. 5 normal Not Available [facility] [address] [place], [address], 01/18/2018 12:01:47 01/18/20 18 01/18/2018 CMP, serum or plasm a bilirubin, total 0.3 mg/dL 0.2-1. 2 normal Not Available [facility] [address] [place], [address], 01/18/2018 12:01:47 01/18/20 18 01/18/2018 CMP, serum or plasm a alkaline phosphatase 81 U/L 33-130 normal Not Available [facility] [place] [facility] [address] [facility], [place], [address], 01/18/2018 12:01:47 01/18/20 18 01/18/2018 CMP, serum or plasm a AST 16 U/L 10-35 normal Not Available [facility] [place] [facility] [address] [facility], [place], [address], 01/18/2018 12:01:47 01/18/20 18 01/18/2018 CMP, serum or plasm a ALT 12 U/L 6-29 normal Not Available [facility] [place] [facility] [address] [facility], [place], [address], 01/18/2018 12:01:47 01/18/20 18 01/18/2018 HbA1c (hemo globi n A1c), blood hemoglobin A1C 7.5 %_of_ total _HGB <5.7 high For someo ne witho ut known diabe too, a hemog lobin A1c value of 6.5% or great er indic ates that they may have diabe too and this shoul d be confi rmed with a follo w-up test. For someo ne with known diabe too, a value <7% indic ates that their diabe too is well contr olled and a value great er than or equal to 7% indic ates subop timal contr ol. A1c targe ts shoul d be indiv idual ized based on durat ion of diabe too, age, comor bid condi tions , and other consi derat ions. Curre ntly, no conse nsus exist s regar ding use of hemog lobin A1c for diagn osis of diabe too for child micky. Not Available [facility] [place] [facility] [address] [facility], [place], [address], 01/18/2018 12:01:47 01/18/20 18 01/18/2018 vitam in D, 25-hy droxy , total , serum vitamin D,25-oh,tota l,ia 18 NG/mL 30-100 low Vitam in D Statu s 25-OH Vitam in D: Defic iency : <20 ng/mL Insuf ficie ncy: 20 - 29 ng/mL Optim al: > or = 30 ng/mL For 25-OH Vitam in D testi ng on patie nts on D2-chowdhury pplem entat ion and patie nts for whom quant itati on of D2 and D3 fract ions is requi red, the [facility] eD(TM ) 25-OH VIT D, (D2,D 3), LC/MS /MS is recom jamila d: order code 45110 (ambar ents >2yrs ). For more infor katelin huitron on this test, go to: http: //bharathi franklin stdia gnost ics.c om/fa q/FAQ 163 (This link is being provi ded for infor katelin nal/e ducat ional purpo ses only. ) Not Available [facility] [place] [facility] [address] [place], [address], 01/18/2018 12:01:47 01/18/20 18 01/18/2018 magne sium, serum or plasm a magnesium 2.0 mg/dL 1.5-2. 5 normal Not Available [facility] [place] [facility] [address] [facility] [place], [address], 01/18/2018 12:01:48 01/18/20 18 01/18/2018 TSH, serum or plasm a TSH 2.51 mIU/L 0.40-4 .50 normal Not Available [facility] [place] [facility] [address] [place], [address], 01/18/2018 12:01:48 01/18/20 18 01/18/2018 PT/IN R INR 1.4 high Refer ence Range 0.9-1 .1 Moder ate-i ntens ity Warfa rin Thera py 2.0-3 .0 Highe r-int ensit y Warfa rin Thera py 3.0-4 .0 Not Available [facility] [place] [facility] [address] [place], [address], 01/18/2018 12:01:49 01/18/20 18 01/18/2018 PT/IN R PT 14.7 sec 9.0-11 .5 high For more infor katelin huitron on this test, go to: http: //[email or web address] [email or web address] om/fa q/FAQ 104 Not Available [facility] [place] [facility] [address] [place], [address], 01/18/2018 12:01:49 01/18/20 18 01/18/2018 CBC w/ auto diff white blood cell count 10.2 thous and/u L 3.8-10 .8 normal Not Available [facility] [address] [place], [address], 01/18/2018 12:01:49 01/18/20 18 01/18/2018 CBC w/ auto diff red blood cell count 3.96 flynn on/uL 3.80-5 .10 normal Not Available [facility] [address] [place], [address], 01/18/2018 12:01:49 01/18/20 18 01/18/2018 CBC w/ auto diff hemoglobin 10.1 g/dL 11.7-1 5.5 low Not Available [facility] [address] [place], [address], 01/18/2018 12:01:49 01/18/20 18 01/18/2018 CBC w/ auto diff hematocrit 32.0 % 35.0-4 5.0 low Not Available [facility] [address] [place], [address], 01/18/2018 12:01:49 01/18/20 18 01/18/2018 CBC w/ auto diff MCV 80.8 fL 80.0-1 00.0 normal Not Available [facility] [address] [place], [address], 01/18/2018 12:01:49 01/18/20 18 01/18/2018 CBC w/ auto diff MCH 25.5 pg 27.0-3 3.0 low Not Available [facility] [place] [address] [place], [address], 01/18/2018 12:01:49 01/18/20 18 01/18/2018 CBC w/ auto diff MCHC 31.6 g/dL 32.0-3 6.0 low Not Available [facility] [place] [address] [place], [address], 01/18/2018 12:01:49 01/18/20 18 01/18/2018 CBC w/ auto diff RDW 21.4 % 11.0-1 5.0 high Not Available [facility] [place] [address] [place], [address], 01/18/2018 12:01:49 01/18/20 18 01/18/2018 CBC w/ auto diff platelet count 504 thous and/u L 140-40 0 high Not Available [facility] [place] [facility] [address] [place], [address], 01/18/2018 12:01:49 01/18/20 18 01/18/2018 CBC w/ auto diff MPV 11.6 fL 7.5-12 .5 normal Not Available [facility] [place] [address] [place], [address], 01/18/2018 12:01:49 01/18/20 18 01/18/2018 CBC w/ auto diff absolute neutrophils 3539 cells /uL 1500-7 800 normal Not Available [facility] [place] [address] [place], [address], 01/18/2018 12:01:49 01/18/20 18 01/18/2018 CBC w/ auto diff absolute lymphocytes 4947 cells /uL 850-39 00 high Not Available [facility] [place] [address], [place], [address], 01/18/2018 12:01:49 01/18/20 18 01/18/2018 CBC w/ auto diff absolute monocytes 928 cells /uL 200-95 0 normal Not Available [facility] [place] [address], [place], [address], 01/18/2018 12:01:49 01/18/20 18 01/18/2018 CBC w/ auto diff absolute eosinophils 694 cells /uL 15-500 high Not Available [facility] [place] [address], [place], [address], 01/18/2018 12:01:49 01/18/20 18 01/18/2018 CBC w/ auto diff absolute basophils 92 cells /uL 0-200 normal Not Available [facility] [place] [address], [place], [address], 01/18/2018 12:01:49 01/18/20 18 01/18/2018 CBC w/ auto diff neutrophils 34.7 % normal Not Available [facility] [place] [address], [place], [address], 01/18/2018 12:01:49 01/18/20 18 01/18/2018 CBC w/ auto diff lymphocytes 48.5 % normal Not Available [facility] [place] [facility] [address], [place], [address], 01/18/2018 12:01:49 01/18/20 18 01/18/2018 CBC w/ auto diff monocytes 9.1 % normal Not Available [facility] [place] [facility] [address], [place], [address], 01/18/2018 12:01:49 01/18/20 18 01/18/2018 CBC w/ auto diff eosinophils 6.8 % normal Not Available [facility] [place] [facility], [address], 01/18/2018 12:01:49 01/18/20 18 01/18/2018 CBC w/ auto diff basophils 0.9 % normal Not Available [facility] [address] [place], [address], 01/18/2018 12:01:49 01/18/20 18 01/18/2018 urina lysis compl ete, refle x cultu re color YELLOW yellow normal Not Available [facility] [place] [address] [place], [place] [address], [place], [address], 01/18/2018 12:01:50 01/18/20 18 01/18/2018 urina lysis compl ete, refle x cultu re appearance CLEAR clear normal Not Available [facility] [address] [place], [place] [address], [place], [address], 01/18/2018 12:01:50 01/18/20 18 01/18/2018 urina lysis compl ete, refle x cultu re specific gravity 1.020 1.001- 1.035 normal Not Available [facility] - [address] [place], [address], 01/18/2018 12:01:50 01/18/20 18 01/18/2018 urina lysis compl ete, refle x cultu re pH 5.5 5.0-8. 0 normal Not Available [facility] [address] [place], [place] [address], [place], [address], 01/18/2018 12:01:50 01/18/20 18 01/18/2018 urina lysis compl ete, refle x cultu re glucose NEGATI VE negati ve normal Not Available [facility] [address] [place], [place] [address], [place], [address], 01/18/2018 12:01:50 01/18/20 18 01/18/2018 urina lysis compl ete, refle x cultu re bilirubin NEGATI VE negati ve normal Not Available [facility] [place] [address] [facility], [place], [address], 01/18/2018 12:01:50 01/18/20 18 01/18/2018 urina lysis compl ete, refle x cultu re ketones NEGATI VE negati ve normal Not Available [facility] [address] [place], [address], 01/18/2018 12:01:50 01/18/20 18 01/18/2018 urina lysis compl ete, refle x cultu re occult blood NEGATI VE negati ve normal Not Available [facility] [place] [address] [facility], [place], [address], 01/18/2018 12:01:50 01/18/20 18 01/18/2018 urina lysis compl ete, refle x cultu re protein NEGATI VE negati ve normal Not Available [facility] [place] [address] [facility], [place], [address], 01/18/2018 12:01:50 01/18/20 18 01/18/2018 urina lysis compl ete, refle x cultu re nitrite NEGATI VE negati ve normal Not Available [facility] [place] [address], [place], [address], 01/18/2018 12:01:50 01/18/20 18 01/18/2018 urina lysis compl ete, refle x cultu re leukocyte esterase NEGATI VE negati ve normal Not Available [facility] [place] [facility] [address], [place], [address], 01/18/2018 12:01:50 01/18/20 18 01/18/2018 urina lysis compl ete, refle x cultu re WBC NONE SEEN /hpf < or = 5 normal Not Available [facility] [place] [address] [place], [address], 01/18/2018 12:01:50 01/18/20 18 01/18/2018 urina lysis compl ete, refle x cultu re RBC NONE SEEN /hpf < or = 2 normal Not Available [facility] [place] [address], [place], [address], 01/18/2018 12:01:50 01/18/20 18 01/18/2018 urina lysis compl ete, refle x cultu re squamous epithelial cells 0-5 /hpf < or = 5 Not Available [facility] [place] [address], [place], [address], 01/18/2018 12:01:50 01/18/20 18 01/18/2018 urina lysis compl ete, refle x cultu re bacteria FEW /hpf none seen abnormal Not Available [facility] [place] [address], [place], [address], 01/18/2018 12:01:50 01/18/20 18 01/18/2018 urina lysis compl ete, refle x cultu re hyaline cast NONE SEEN /lpf none seen normal Not Available [facility] [place] [facility] [address], [place], [address], 01/18/2018 12:01:50 01/18/20 18 01/18/2018 cultu re, urine reflexive urine culture NO CULTUR E INDICA ANA Not Available [facility] [place] [facility] [address], [place], [address], 01/18/2018 12:01:50 03/23/20 18 03/23/2018 CMP, serum or plasm a sodium 137 mmol/ L 136-14 5 Not Available [facility] (Lab Registration) [address], [place], [address], 03/23/2018 22:04:55 03/23/20 18 03/23/2018 CMP, serum or plasm a potassium 4.3 mmol/ L 3.5-5. 1 Not Available [facility] (Lab Registration) [address] [place], [address], 03/23/2018 22:04:55 03/23/20 18 03/23/2018 CMP, serum or plasm a chloride 100 mmol/ L 98-107 Not Available [facility] (Lab Registration) [address] [place], [address], 03/23/2018 22:04:55 03/23/20 18 03/23/2018 CMP, serum or plasm a carbon dioxide 29 mmol/ L 21-32 Not Available [facility] (Lab Registration) [address] [place], [address], 03/23/2018 22:04:55 03/23/20 18 03/23/2018 CMP, serum or plasm a anion gap 8.0 Not Available [facility] (Lab Registration) [address] [place], [address], 03/23/2018 22:04:55 03/23/20 18 03/23/2018 CMP, serum or plasm a glucose 159 mg/dL 70-110 high Not Available [facility] (Lab Registration) [address] [place], [address], 03/23/2018 22:04:55 03/23/20 18 03/23/2018 CMP, serum or plasm a blood urea nitrogen 7 mg/dL 7-18 Not Available [facility] (Lab Registration) [address] [place], [address], 03/23/2018 22:04:55 03/23/20 18 03/23/2018 CMP, serum or plasm a creatinine 0.8 mg/dL 0.6-1. 0 Not Available [facility] (Lab Registration) [address] [place], [address], 03/23/2018 22:04:55 03/23/20 18 03/23/2018 CMP, serum or plasm a BUN/creatini ne ratio 8.8 ratio 9-21 low Not Available [facility] (Lab Registration) [address] [place], [address], 03/23/2018 22:04:55 03/23/20 18 03/23/2018 CMP, serum or plasm a estimated glom filtration rate 78 mL/mi n >60- Not Available [facility] (Lab Registration) [address] [place], [address], 03/23/2018 22:04:55 03/23/20 18 03/23/2018 CMP, serum or plasm a total protein 7.7 g/dL 6.4-8. 2 Not Available [facility] (Lab Registration) [address] [place], [address], 03/23/2018 22:04:55 03/23/20 18 03/23/2018 CMP, serum or plasm a albumin 3.1 g/dL 3.4-5. 0 low Not Available [facility] (Lab Registration) [address] [place], [address], 03/23/2018 22:04:55 03/23/20 18 03/23/2018 CMP, serum or plasm a calcium 8.7 mg/dL 8.5-10 .1 Not Available [facility] (Lab Registration) [address] [place], [address], 03/23/2018 22:04:55 03/23/20 18 03/23/2018 CMP, serum or plasm a corrected calcium 9.4 mg/dL 8.5-10 .1 Not Available [facility] (Lab Registration) [address] [place], [address], 03/23/2018 22:04:55 03/23/20 18 03/23/2018 CMP, serum or plasm a bilirubin total 0.3 mg/dL 0.4-1. 5 low Not Available [facility] (Lab Registration) [address] [place], [address], 03/23/2018 22:04:55 03/23/20 18 03/23/2018 CMP, serum or plasm a AST (SGOT) 17 U/L 15-37 Not Available [facility] (Lab Registration) [address] [place], [address], 03/23/2018 22:04:55 03/23/20 18 03/23/2018 CMP, serum or plasm a ALT (SGPT) 16 U/L 12-78 Not Available [facility] (Lab Registration) [address] [place], [address], 03/23/2018 22:04:55 03/23/20 18 03/23/2018 CMP, serum or plasm a alk phosphatase 92 U/L 53-141 Not Available [facility] (Lab Registration) [address] [place], [address], 03/23/2018 22:04:55 03/23/20 18 03/23/2018 CMP, serum or plasm a note Unles s other taylor noted testi ng perfo rmed at: [facility] [address] [place] [address] [phone] Rinku montana MD CLIA: [id number] Not Available [facility] (Lab Registration) [address] [place], [address], 03/23/2018 22:04:55 03/23/20 18 03/23/2018 influ gavin virus A+B Ag, nasop haryn geal flu A NEGATI VE negati ve Not Available [facility] (Lab Registration) [address] [place], [address], 03/23/2018 22:14:08 03/23/20 18 03/23/2018 influ gavin virus A+B Ag, nasop haryn geal flu B NEGATI VE negati ve Not Available [facility] (Lab Registration) [address] [place], [address], 03/23/2018 22:14:08 03/23/20 18 03/23/2018 influ gavin virus A+B Ag, nasop haryn geal flu A int control neg N negati ve Not Available [facility] (Lab Registration) [address] [place], [address], 03/23/2018 22:14:08 03/23/20 18 03/23/2018 influ gavin virus A+B Ag, nasop haryn geal flu A int control pos P positi ve Not Available [facility] (Lab Registration) [address] [place], [address], 03/23/2018 22:14:08 03/23/20 18 03/23/2018 influ gavin virus A+B Ag, nasop haryn geal flu lot # [id number] Not Available [facility] (Lab Registration) [address] [place], [address], 03/23/2018 22:14:08 03/23/20 18 03/23/2018 influ gavin virus A+B Ag, nasop haryn geal flu exp date Not Available [facility] (Lab Registration) [address] [place], [address], 03/23/2018 22:14:08 03/23/20 18 03/23/2018 influ gavin virus A+B Ag, nasop haryn geal note Unles s other taylor noted testi ng perfo rmed at: [facility] [address] [place] [address] [phone] Rinku montana MD CLIA: [id number] Not Available [facility] (Lab Registration) [address] [place], [address], 03/23/2018 22:14:08 03/23/20 18 03/23/2018 lacti c acid, blood lactate 1.5 mmole /L 0.4-2. 0 Not Available [facility] (Lab Registration) [address], [place], [address], 03/23/2018 22:14:09 03/23/20 18 03/23/2018 lacti c acid, blood note Unles s other taylor noted testi ng perfo rmed at: [facility] [address] [place], [place] [id number] [phone] Rinku montana MD CLIA: [id number] Not Available [facility] (Lab Registration) [address] [place], [address], 03/23/2018 22:14:09 03/23/20 18 03/23/2018 PT/IN R PT (prothrombin time) 51.7 secon ds 9.33-1 0.37 high Not Available [facility] (Lab Registration) [address], [place], [address], 03/23/2018 22:29:30 03/23/20 18 03/23/2018 PT/IN R INR 4.81 0.9-1. 1 critical high INR is inten ded to be used only for patie nts on stabl e oral anti- coagu lant thera py. *Ther apeut ic Range s 2.0 - 3.0 Usual Thera peuti c Range 2.5 - 3.5 For patie nts with a histo ry of multi ple deep vein throm bus or mecha nical heart valve s. Not Available [facility] (Lab Registration) [address] [place], [address], 03/23/2018 22:29:30 03/23/20 18 03/23/2018 PT/IN R note Unles s other taylor noted testi ng perfo rmed at: [facility] [address] [place], [place] [id number] [phone] Rinku montana MD CLIA: [id number] Not Available [facility] (Lab Registration) [address] [place], [address], 03/23/2018 22:29:30 03/23/20 18 03/23/2018 CBC w/ auto diff WBC 15.5 10 4.5-11 .5 high Not Available [facility] (Lab Registration) [address] [place], [address], 03/23/2018 23:05:14 03/23/20 18 03/23/2018 CBC w/ auto diff RBC 4.06 10 4.25-5 .57 low Not Available [facility] (Lab Registration) [address] [place], [address], 03/23/2018 23:05:14 03/23/20 18 03/23/2018 CBC w/ auto diff HGB 11.0 g/dL 12.0-1 5.7 low Not Available [facility] (Lab Registration) [address] [place], [address], 03/23/2018 23:05:14 03/23/20 18 03/23/2018 CBC w/ auto diff HCT 35.3 % 36.0-4 7.0 low Not Available [facility] (Lab Registration) [address] [place], [address], 03/23/2018 23:05:14 03/23/20 18 03/23/2018 CBC w/ auto diff MCV 86.9 fL 80-95 Not Available [facility] (Lab Registration) [address] [place], [address], 03/23/2018 23:05:14 03/23/20 18 03/23/2018 CBC w/ auto diff MCH 27.1 pg 27.0-3 4.0 Not Available [facility] (Lab Registration) [address] [place], [address], 03/23/2018 23:05:14 03/23/20 18 03/23/2018 CBC w/ auto diff MCHC 31.2 g/dL 32.0-3 6.0 low Not Available [facility] (Lab Registration) [address] [place], [address], 03/23/2018 23:05:14 03/23/20 18 03/23/2018 CBC w/ auto diff RDW 17.6 % 12.3-1 5.1 high Not Available [facility] (Lab Registration) [address] [place], [address], 03/23/2018 23:05:14 03/23/20 18 03/23/2018 CBC w/ auto diff platelet count 418 10 150-45 0 Not Available [facility] (Lab Registration) [address] [place], [address], 03/23/2018 23:05:14 03/23/20 18 03/23/2018 CBC w/ auto diff granulocyte% 73 % 40-75 Not Available [facility] (Lab Registration) [address] [place], [address], 03/23/2018 23:05:14 03/23/20 18 03/23/2018 CBC w/ auto diff lymphocyte% 15 % 15-57 Not Available [facility] (Lab Registration) [address] [place], [address], 03/23/2018 23:05:14 03/23/20 18 03/23/2018 CBC w/ auto diff monocyte% 8 % 4.0-12 .0 Not Available [facility] (Lab Registration) [address] [place], [address], 03/23/2018 23:05:14 03/23/20 18 03/23/2018 CBC w/ auto diff eosinophil% 2 % 0.0-4. 0 Not Available [facility] (Lab Registration) [address] [place], [address], 03/23/2018 23:05:14 03/23/20 18 03/23/2018 CBC w/ auto diff basophil% 0 % 0.0-1. 0 Not Available [facility] (Lab Registration) [address] [place], [address], 03/23/2018 23:05:14 03/23/20 18 03/23/2018 CBC w/ auto diff granulocyte# 11.3 10 1.8-8. 62 high Not Available [facility] (Lab Registration) [address] [place], [address], 03/23/2018 23:05:14 03/23/20 18 03/23/2018 CBC w/ auto diff lymphocyte# 2.3 10 0.76-5 .40 Not Available [facility] (Lab Registration) [address] [place], [address], 03/23/2018 23:05:14 03/23/20 18 03/23/2018 CBC w/ auto diff monocyte# 1.2 10 0.18-1 .38 Not Available [facility] (Lab Registration) [address] [place], [address], 03/23/2018 23:05:14 03/23/20 18 03/23/2018 CBC w/ auto diff eosinophil# 0.3 10 0.00-0 .46 Not Available [facility] (Lab Registration) [address] [place], [address], 03/23/2018 23:05:14 03/23/20 18 03/23/2018 CBC w/ auto diff basophil# 0.0 10 0.-0.1 1 Not Available [facility] (Lab Registration) [address] [place], [address], 03/23/2018 23:05:14 03/23/20 18 03/23/2018 CBC w/ auto diff manual differential YES Not Available [facility] (Lab Registration) [address] [place], [address], 03/23/2018 23:05:14 03/23/20 18 03/23/2018 CBC w/ auto diff platelet estimate ADEQUA TE adequa te Not Available [facility] (Lab Registration) [address] [place], [address], 03/23/2018 23:05:14 03/23/20 18 03/23/2018 CBC w/ auto diff band neutrophil 2 % 0.0-8. 0 Not Available [facility] (Lab Registration) [address] [place], [address], 03/23/2018 23:05:14 03/23/20 18 03/23/2018 CBC w/ auto diff note Unles s other taylor noted testi ng perfo rmed at: [facility] [address] [place] [address] [phone] Rinku montana MD CLIA: [id number] Not Available [facility] (Lab Registration) [address] [place], [address], 03/23/2018 23:05:14 03/23/20 18 03/23/2018 cultu re, blood results TDM 03-24 657 NO GROWT H AT OVERN IGHT INCUB ATION TDM 03-25 902 No growt h 48 hours . LJS 03-26 1102 No growt h at 72 hours . LJ 03-29 953 No growt h 5 days. Not Available [facility] (Lab Registration) [address] [place], [address], 03/29/2018 09:54:47 03/23/20 18 03/23/2018 cultu re, blood note Unles s other taylor noted testi ng perfo rmed at: [facility] [address] [place] [address] [phone] Rinku montana MD CLIA: [id number] Not Available [facility] (Lab Registration) [address] [place], [address], 03/29/2018 09:54:47 03/23/20 18 03/23/2018 cultu re, blood results TDM 03-24 656 NO GROWT H AT OVERN IGHT INCUB ATION TDM 03-25 902 No growt h 48 hours . [facility] 03-26 1102 No growt h at 72 hours . [facility] 03-29 953 No growt h 5 days. Not Available [facility] (Lab Registration) [address] [place], [address], 03/29/2018 09:54:49 03/23/20 18 03/23/2018 cultu re, blood note Unles s other taylor noted testi ng perfo rmed at: [facility] [address] [facility] [place] [address] [phone] Rinku montana MD CLIA: [id number] Not Available [facility] (Lab Registration) [address] [place], [address], 03/29/2018 09:54:49 03/24/20 18 03/24/2018 CMP, serum or plasm a sodium 136 mmol/ L 136-14 5 Not Available [facility] (Lab Registration) [address] [place], [address], 03/24/2018 06:52:39 03/24/20 18 03/24/2018 CMP, serum or plasm a potassium 4.6 mmol/ L 3.5-5. 1 Not Available [facility] (Lab Registration) [address] [place], [address], 03/24/2018 06:52:39 03/24/20 18 03/24/2018 CMP, serum or plasm a chloride 99 mmol/ L 98-107 Not Available [facility] (Lab Registration) [address] [place], [address], 03/24/2018 06:52:39 03/24/20 18 03/24/2018 CMP, serum or plasm a carbon dioxide 28 mmol/ L 21-32 Not Available [facility] (Lab Registration) [address] [place], [address], 03/24/2018 06:52:39 03/24/20 18 03/24/2018 CMP, serum or plasm a anion gap 9.0 Not Available [facility] (Lab Registration) [address] [place], [address], 03/24/2018 06:52:39 03/24/20 18 03/24/2018 CMP, serum or plasm a glucose 233 mg/dL 70-110 high Not Available [facility] (Lab Registration) [address] [place], [address], 03/24/2018 06:52:39 03/24/20 18 03/24/2018 CMP, serum or plasm a blood urea nitrogen 11 mg/dL 7-18 Not Available [facility] (Lab Registration) [address] [place], [address], 03/24/2018 06:52:39 03/24/20 18 03/24/2018 CMP, serum or plasm a creatinine 1.0 mg/dL 0.6-1. 0 Not Available [facility] (Lab Registration) [address] [place], [address], 03/24/2018 06:52:39 03/24/20 18 03/24/2018 CMP, serum or plasm a BUN/creatini ne ratio 11.0 ratio 9-21 Not Available [facility] (Lab Registration) [address] [place], [address], 03/24/2018 06:52:39 03/24/20 18 03/24/2018 CMP, serum or plasm a estimated glom filtration rate 60 mL/mi n >60- Not Available [facility] (Lab Registration) [address] [place], [address], 03/24/2018 06:52:39 03/24/20 18 03/24/2018 CMP, serum or plasm a total protein 7.4 g/dL 6.4-8. 2 Not Available [facility] (Lab Registration) [address] [place], [address], 03/24/2018 06:52:39 03/24/20 18 03/24/2018 CMP, serum or plasm a albumin 2.8 g/dL 3.4-5. 0 low Not Available [facility] (Lab Registration) [address] [place], [address], 03/24/2018 06:52:39 03/24/20 18 03/24/2018 CMP, serum or plasm a calcium 8.4 mg/dL 8.5-10 .1 low Not Available [facility] (Lab Registration) [address] [place], [address], 03/24/2018 06:52:39 03/24/20 18 03/24/2018 CMP, serum or plasm a corrected calcium 9.4 mg/dL 8.5-10 .1 Not Available [facility] (Lab Registration) [address] [place], [address], 03/24/2018 06:52:39 03/24/20 18 03/24/2018 CMP, serum or plasm a bilirubin total 0.1 mg/dL 0.4-1. 5 low Not Available [facility] (Lab Registration) [address] [place], [address], 03/24/2018 06:52:39 03/24/20 18 03/24/2018 CMP, serum or plasm a AST (SGOT) 16 U/L 15-37 Not Available [facility] (Lab Registration) [address] [place], [address], 03/24/2018 06:52:39 03/24/20 18 03/24/2018 CMP, serum or plasm a ALT (SGPT) 15 U/L 12-78 Not Available [facility] (Lab Registration) [address] [place], [address], 03/24/2018 06:52:39 03/24/20 18 03/24/2018 CMP, serum or plasm a alk phosphatase 84 U/L 53-141 Not Available [facility] (Lab Registration) [address] [place], [address], 03/24/2018 06:52:39 03/24/20 18 03/24/2018 CMP, serum or plasm a note Unlgregg s other taylor noted testi ng perfo rmed at: [facility] [address] [place] [address] [phone] Rinku montana MD CLIA: [id number] Not Available [facility] (Lab Registration) [address] [place], [address], 03/24/2018 06:52:39 03/24/20 18 03/24/2018 magne sium, serum or plasm a magnesium 1.9 mg/dL 1.8-2. 4 Not Available [facility] (Lab Registration) [address] [place], [address], 03/24/2018 06:52:39 03/24/20 18 03/24/2018 magne sium, serum or plasm a note Johnathan chambers other taylor noted testi ng perfo rmed at: [facility] [address] [place] [address] [phone] Rinku montana MD CLIA: [id number] Not Available [facility] (Lab Registration) [address] [place], [address], 03/24/2018 06:52:39 03/24/20 18 03/24/2018 CBC w/ auto diff WBC 15.0 10 4.5-11 .5 high Not Available [facility] (Lab Registration) [address] [place], [address], 03/24/2018 07:10:57 03/24/20 18 03/24/2018 CBC w/ auto diff RBC 3.94 10 4.25-5 .57 low Not Available [facility] (Lab Registration) [address] [place], [address], 03/24/2018 07:10:57 03/24/20 18 03/24/2018 CBC w/ auto diff HGB 10.4 g/dL 12.0-1 5.7 low Not Available [facility] (Lab Registration) [address] [place], [address], 03/24/2018 07:10:57 03/24/20 18 03/24/2018 CBC w/ auto diff HCT 34.6 % 36.0-4 7.0 low Not Available [facility] (Lab Registration) [address] [place], [address], 03/24/2018 07:10:57 03/24/20 18 03/24/2018 CBC w/ auto diff MCV 87.8 fL 80-95 Not Available [facility] (Lab Registration) [address] [place], [address], 03/24/2018 07:10:57 03/24/20 18 03/24/2018 CBC w/ auto diff MCH 26.4 pg 27.0-3 4.0 low Not Available [facility] (Lab Registration) [address] [place], [address], 03/24/2018 07:10:57 03/24/20 18 03/24/2018 CBC w/ auto diff MCHC 30.1 g/dL 32.0-3 6.0 low Not Available [facility] (Lab Registration) [address] [place], [address], 03/24/2018 07:10:57 03/24/20 18 03/24/2018 CBC w/ auto diff RDW 17.6 % 12.3-1 5.1 high Not Available [facility] (Lab Registration) [address] [place], [address], 03/24/2018 07:10:57 03/24/20 18 03/24/2018 CBC w/ auto diff platelet count 461 10 150-45 0 high Not Available [facility] (Lab Registration) [address] [place], [address], 03/24/2018 07:10:57 03/24/20 18 03/24/2018 CBC w/ auto diff granulocyte% 89 % 40-75 high Not Available [facility] (Lab Registration) [address] [place], [address], 03/24/2018 07:10:57 03/24/20 18 03/24/2018 CBC w/ auto diff lymphocyte% 11 % 15-57 low Not Available [facility] (Lab Registration) [address] [place], [address], 03/24/2018 07:10:57 03/24/20 18 03/24/2018 CBC w/ auto diff monocyte% 0 % 4.0-12 .0 low Not Available [facility] (Lab Registration) [address] [place], [address], 03/24/2018 07:10:57 03/24/20 18 03/24/2018 CBC w/ auto diff eosinophil% 0 % 0.0-4. 0 Not Available [facility] (Lab Registration) [address] [place], [address], 03/24/2018 07:10:57 03/24/20 18 03/24/2018 CBC w/ auto diff basophil% 0 % 0.0-1. 0 Not Available [facility] (Lab Registration) [address] [place], [address], 03/24/2018 07:10:57 03/24/20 18 03/24/2018 CBC w/ auto diff granulocyte# 13.4 10 1.8-8. 62 high Not Available [facility] (Lab Registration) [address] [place], [address], 03/24/2018 07:10:57 03/24/20 18 03/24/2018 CBC w/ auto diff lymphocyte# 1.7 10 0.76-5 .40 Not Available [facility] (Lab Registration) [address] [place], [address], 03/24/2018 07:10:57 03/24/20 18 03/24/2018 CBC w/ auto diff monocyte# 0.0 10 0.18-1 .38 low Not Available [facility] (Lab Registration) [address] [place], [address], 03/24/2018 07:10:57 03/24/20 18 03/24/2018 CBC w/ auto diff eosinophil# 0.0 10 0.00-0 .46 Not Available [facility] (Lab Registration) [address] [place], [address], 03/24/2018 07:10:57 03/24/20 18 03/24/2018 CBC w/ auto diff basophil# 0.0 10 0.-0.1 1 Not Available [facility] (Lab Registration) [address] [place], [address], 03/24/2018 07:10:57 03/24/20 18 03/24/2018 CBC w/ auto diff manual differential YES Not Available [facility] (Lab Registration) [address] [place], [address], 03/24/2018 07:10:57 03/24/20 18 03/24/2018 CBC w/ auto diff RBC morphology ABNORM AL normal Not Available [facility] (Lab Registration) [address] [place], [address], 03/24/2018 07:10:57 03/24/20 18 03/24/2018 CBC w/ auto diff platelet estimate ADEQUA TE adequa te Not Available [facility] (Lab Registration) [address] [place], [address], 03/24/2018 07:10:57 03/24/20 18 03/24/2018 CBC w/ auto diff platelet morphology NORMAL normal Not Available [facility] (Lab Registration) [address] [place], [address], 03/24/2018 07:10:57 03/24/20 18 03/24/2018 CBC w/ auto diff anisocytosis SLIGHT none seen Not Available [facility] (Lab Registration) [address] [place], [address], 03/24/2018 07:10:57 03/24/20 18 03/24/2018 CBC w/ auto diff hypochromia SLIGHT none seen Not Available [facility] (Lab Registration) [address] [place], [address], 03/24/2018 07:10:57 03/24/20 18 03/24/2018 CBC w/ auto diff note Unles s other taylor noted testi ng perfo rmed at: [facility] [address] [place] [address] [phone] Rinku montana MD CLIA: [id number] Not Available [facility] (Lab Registration) [address] [place], [address], 03/24/2018 07:10:57 03/24/20 18 03/24/2018 tropo olga I, serum or plasm a troponin <0.04 NG/mL 0.0-0. 056 Not Available [facility] (Lab Registration) [address] [place], [address], 03/24/2018 20:49:29 03/24/20 18 03/24/2018 tropo olga I, serum or plasm a note Unles s other taylor noted testi ng perfo rmed at: [facility] [address] [place] [address] [phone] Rinku montana MD CLIA: [id number] Not Available [facility] (Lab Registration) [address] [place], [address], 03/24/2018 20:49:29 03/25/20 18 03/25/2018 CBC w/ auto diff WBC 32.3 10 4.5-11 .5 high Not Available [facility] (Lab Registration) [address] [place], [address], 03/25/2018 06:30:20 03/25/20 18 03/25/2018 CBC w/ auto diff RBC 3.68 10 4.25-5 .57 low Not Available [facility] (Lab Registration) [address] [place], [address], 03/25/2018 06:30:20 03/25/20 18 03/25/2018 CBC w/ auto diff HGB 9.9 g/dL 12.0-1 5.7 low Not Available [facility] (Lab Registration) [address] [place], [address], 03/25/2018 06:30:20 03/25/20 18 03/25/2018 CBC w/ auto diff HCT 32.6 % 36.0-4 7.0 low Not Available [facility] (Lab Registration) [address] [place], [address], 03/25/2018 06:30:20 03/25/20 18 03/25/2018 CBC w/ auto diff MCV 88.6 fL 80-95 Not Available [facility] (Lab Registration) [address] [place], [address], 03/25/2018 06:30:20 03/25/20 18 03/25/2018 CBC w/ auto diff MCH 26.9 pg 27.0-3 4.0 low Not Available [facility] (Lab Registration) [address] [place], [address], 03/25/2018 06:30:20 03/25/20 18 03/25/2018 CBC w/ auto diff MCHC 30.4 g/dL 32.0-3 6.0 low Not Available [facility] (Lab Registration) [address] [place], [address], 03/25/2018 06:30:20 03/25/20 18 03/25/2018 CBC w/ auto diff RDW 18.1 % 12.3-1 5.1 high Not Available [facility] (Lab Registration) [address] [place], [address], 03/25/2018 06:30:20 03/25/20 18 03/25/2018 CBC w/ auto diff platelet count 425 10 150-45 0 Not Available [facility] (Lab Registration) [address] [place], [address], 03/25/2018 06:30:20 03/25/20 18 03/25/2018 CBC w/ auto diff granulocyte% 87 % 40-75 high Not Available [facility] (Lab Registration) [address] [place], [address], 03/25/2018 06:30:20 03/25/20 18 03/25/2018 CBC w/ auto diff lymphocyte% 4 % 15-57 low Not Available [facility] (Lab Registration) [address] [place], [address], 03/25/2018 06:30:20 03/25/20 18 03/25/2018 CBC w/ auto diff monocyte% 2 % 4.0-12 .0 low Not Available [facility] (Lab Registration) [address] [place], [address], 03/25/2018 06:30:20 03/25/20 18 03/25/2018 CBC w/ auto diff eosinophil% 0 % 0.0-4. 0 Not Available [facility] (Lab Registration) [address] [place], [address], 03/25/2018 06:30:20 03/25/20 18 03/25/2018 CBC w/ auto diff basophil% 0 % 0.0-1. 0 Not Available [facility] (Lab Registration) [address] [place], [address], 03/25/2018 06:30:20 03/25/20 18 03/25/2018 CBC w/ auto diff granulocyte# 28.1 10 1.8-8. 62 high Not Available [facility] (Lab Registration) [address] [place], [address], 03/25/2018 06:30:20 03/25/20 18 03/25/2018 CBC w/ auto diff lymphocyte# 1.3 10 0.76-5 .40 Not Available [facility] (Lab Registration) [address] [place], [address], 03/25/2018 06:30:20 03/25/20 18 03/25/2018 CBC w/ auto diff monocyte# 0.6 10 0.18-1 .38 Not Available [facility] (Lab Registration) [address] [place], [address], 03/25/2018 06:30:20 03/25/20 18 03/25/2018 CBC w/ auto diff eosinophil# 0.0 10 0.00-0 .46 Not Available [facility] (Lab Registration) [address] [place], [address], 03/25/2018 06:30:20 03/25/20 18 03/25/2018 CBC w/ auto diff basophil# 0.0 10 0.-0.1 1 Not Available [facility] (Lab Registration) [address] [place], [address], 03/25/2018 06:30:20 03/25/20 18 03/25/2018 CBC w/ auto diff manual differential YES Not Available [facility] (Lab Registration) [address] [place], [address], 03/25/2018 06:30:20 03/25/20 18 03/25/2018 CBC w/ auto diff RBC morphology ABNORM AL normal Not Available [facility] (Lab Registration) [address] [place], [address], 03/25/2018 06:30:20 03/25/20 18 03/25/2018 CBC w/ auto diff platelet estimate ADEQUA TE adequa te Not Available [facility] (Lab Registration) [address] [place], [address], 03/25/2018 06:30:20 03/25/20 18 03/25/2018 CBC w/ auto diff platelet morphology NORMAL normal Not Available [facility] (Lab Registration) [address] [place], [address], 03/25/2018 06:30:20 03/25/20 18 03/25/2018 CBC w/ auto diff band neutrophil 3 % 0.0-8. 0 Not Available [facility] (Lab Registration) [address] [place], [address], 03/25/2018 06:30:20 03/25/20 18 03/25/2018 CBC w/ auto diff metamyelocyt e 2 % 0-1 high Not Available [facility] (Lab Registration) [address] [place], [address], 03/25/2018 06:30:20 03/25/20 18 03/25/2018 CBC w/ auto diff myelocyte 2 % 0-1 high Not Available [facility] (Lab Registration) [address] [place], [address], 03/25/2018 06:30:20 03/25/20 18 03/25/2018 CBC w/ auto diff anisocytosis MODERA TE none seen Not Available [facility] (Lab Registration) [address] [place], [address], 03/25/2018 06:30:20 03/25/20 18 03/25/2018 CBC w/ auto diff note Unles s other taylor noted testi ng perfo rmed at: [facility] [address] [place] [address] [phone] Rinku montana MD CLIA: [id number] Not Available [facility] (Lab Registration) [address] [place], [address], 03/25/2018 06:30:20 03/25/20 18 03/25/2018 CMP, serum or plasm a sodium 137 mmol/ L 136-14 5 Not Available [facility] (Lab Registration) [address] [place], [address], 03/25/2018 06:33:26 03/25/20 18 03/25/2018 CMP, serum or plasm a potassium 4.7 mmol/ L 3.5-5. 1 Not Available [facility] (Lab Registration) [address] [place], [address], 03/25/2018 06:33:26 03/25/20 18 03/25/2018 CMP, serum or plasm a chloride 102 mmol/ L 98-107 Not Available [facility] (Lab Registration) [address] [place], [address], 03/25/2018 06:33:26 03/25/20 18 03/25/2018 CMP, serum or plasm a carbon dioxide 29 mmol/ L 21-32 Not Available [facility] (Lab Registration) [address] [place], [address], 03/25/2018 06:33:26 03/25/20 18 03/25/2018 CMP, serum or plasm a anion gap 6.0 Not Available [facility] (Lab Registration) [address] [place], [address], 03/25/2018 06:33:26 03/25/20 18 03/25/2018 CMP, serum or plasm a glucose 308 mg/dL 70-110 high Not Available [facility] (Lab Registration) [address] [place], [address], 03/25/2018 06:33:26 03/25/20 18 03/25/2018 CMP, serum or plasm a blood urea nitrogen 19 mg/dL 7-18 high Not Available [facility] (Lab Registration) [address] [place], [address], 03/25/2018 06:33:26 03/25/20 18 03/25/2018 CMP, serum or plasm a creatinine 1.0 mg/dL 0.6-1. 0 Not Available [facility] (Lab Registration) [address] [place], [address], 03/25/2018 06:33:26 03/25/20 18 03/25/2018 CMP, serum or plasm a BUN/creatini ne ratio 19.0 ratio 9-21 Not Available [facility] (Lab Registration) [address] [place], [address], 03/25/2018 06:33:26 03/25/20 18 03/25/2018 CMP, serum or plasm a estimated glom filtration rate 60 mL/mi n >60- Not Available [facility] (Lab Registration) [address] [place], [address], 03/25/2018 06:33:26 03/25/20 18 03/25/2018 CMP, serum or plasm a total protein 7.6 g/dL 6.4-8. 2 Not Available [facility] (Lab Registration) [address] [place], [address], 03/25/2018 06:33:26 03/25/20 18 03/25/2018 CMP, serum or plasm a albumin 2.9 g/dL 3.4-5. 0 low Not Available [facility] (Lab Registration) [address] [place], [address], 03/25/2018 06:33:26 03/25/20 18 03/25/2018 CMP, serum or plasm a calcium 9.0 mg/dL 8.5-10 .1 Not Available [facility] (Lab Registration) [address] [place], [address], 03/25/2018 06:33:26 03/25/20 18 03/25/2018 CMP, serum or plasm a corrected calcium 9.9 mg/dL 8.5-10 .1 Not Available [facility] (Lab Registration) [place], [address], 03/25/2018 06:33:26 03/25/20 18 03/25/2018 CMP, serum or plasm a bilirubin total 0.2 mg/dL 0.4-1. 5 low Not Available [facility] (Lab Registration) [address] [place], [address], 03/25/2018 06:33:26 03/25/20 18 03/25/2018 CMP, serum or plasm a AST (SGOT) 12 U/L 15-37 low Not Available [facility] (Lab Registration) [address] [place], [address], 03/25/2018 06:33:26 03/25/20 18 03/25/2018 CMP, serum or plasm a ALT (SGPT) 14 U/L 12-78 Not Available [facility] (Lab Registration) [address] [place], [address], 03/25/2018 06:33:26 03/25/20 18 03/25/2018 CMP, serum or plasm a alk phosphatase 88 U/L 53-141 Not Available [facility] (Lab Registration) [address] [place], [address], 03/25/2018 06:33:26 03/25/20 18 03/25/2018 CMP, serum or plasm a note Unles s other taylor noted testi ng perfo rmed at: [facility] [address] [place] [address] [phone] Rinku montana MD CLIA: [id number] Not Available [facility] (Lab Registration) [address] [place], [address], 03/25/2018 06:33:26 03/25/20 18 03/25/2018 tropo olga I, serum or plasm a troponin <0.04 NG/mL 0.0-0. 056 Not Available [facility] (Lab Registration) [address] [place], [address], 03/25/2018 06:34:28 03/25/20 18 03/25/2018 tropo olga I, serum or plasm a note Unles s other taylor noted testi ng perfo rmed at: [facility] [address] [place], [place] [id number] [phone] Rinku montana MD CLIA: [id number] Not Available [facility] (Lab Registration) [address] [place], [address], 03/25/2018 06:34:28 03/25/20 18 03/25/2018 lipid panel , serum triglyceride 90 mg/dL 20-200 The [employer] ([employer] ) has set the follo wing guide lines for Fasti ng Trigl yceri gordon: YUNI L: <150 mg/dL BORDE RLINE HIGH: 150 - 199 mg/dL HIGH: 200 - 499 mg/dL VERY HIGH: > or =500 mg/dL Not Available [facility] (Lab Registration) [address] [place], [address], 03/25/2018 06:34:30 03/25/20 18 03/25/2018 lipid panel , serum cholesterol 209 mg/dL 0-200 high The [employer] ([employer] ) has set the follo wing guide lines for Fasti ng Erinn stero l: YANELY ABLE: <200 mg/dL BORDE RLINE HIGH: 200 - 239 mg/dL HIGH: > or =240 mg/dL Not Available [facility] (Lab Registration) [address] [place], [address], 03/25/2018 06:34:30 03/25/20 18 03/25/2018 lipid panel , serum HDL cholesterol 63 mg/dL 60- The [employer] ([employer]CE[employer] ) has set the follo wing guide lines for Fasti ng HDL Erinn stero l: LOW HDL: <40 mg/dL YUNI L: 40 - 60 mg/dL YANELY ABLE: >60 mg/dL Not Available [facility] (Lab Registration) [address] [place], [address], 03/25/2018 06:34:30 03/25/20 18 03/25/2018 lipid panel , serum LDL calculated 128 mg/dL 100- The [employer] ([employer] ) has set the follo wing guide lines for Fasti ng LDL Erinn stero l: OPTIM AL: < 100 mg/dL LOW RISK: 100 - 129 mg/dL BORDE RLINE HIGH: 130 - 159 mg/dL HIGH: 160 - 189 mg/dL VERY HIGH: > or = 190 mg/dL Not Available [facility] (Lab Registration) [address], [place], [address], 03/25/2018 06:34:30 03/25/20 18 03/25/2018 lipid panel , serum chol/HDL ratio 3 ratio -5 Not Available [facility] (Lab Registration) [address], [place], [address], 03/25/2018 06:34:30 03/25/20 18 03/25/2018 lipid panel , serum note Unles s other taylor noted testi ng perfo rmed at: [facility] [address] [place] [address] [phone] Rinku montana MD CLIA: [id number] Not Available [facility] (Lab Registration) [address], [place], [address], 03/25/2018 06:34:30 03/25/20 18 03/25/2018 PT/IN R PT (prothrombin time) 52.8 secon ds 9.33-1 0.37 high Not Available [facility] (Lab Registration) [address], [place], [address], 03/25/2018 11:54:19 03/25/20 18 03/25/2018 PT/IN R INR 4.90 0.9-1. 1 critical high INR is inten ded to be used only for patie nts on stabl e oral anti- coagu lant thera py. *Ther apeut ic Range s 2.0 - 3.0 Usual Thera peuti c Range 2.5 - 3.5 For patie nts with a histo ry of multi ple deep vein throm bus or mecha nical heart valve s. Not Available [facility] (Lab Registration) [address] [place], [address], 03/25/2018 11:54:19 03/25/20 18 03/25/2018 PT/IN R note Unles s other taylor noted testi ng [facility] [address] [place] [address] [phone] Rinku montana MD CLIA: [id number] Not Available [facility] (Lab Registration) [address] [place], [address], 03/25/2018 11:54:19 03/25/20 18 03/25/2018 gas panel , arter ial blood chuck's test YES Not Available [facility] (Lab Registration) [address] [place], [address], 03/25/2018 20:40:49 03/25/20 18 03/25/2018 gas panel , arter ial blood ABG site RIGHT RADIAL Not Available [facility] (Lab Registration) [address] [place], [address], 03/25/2018 20:40:49 03/25/20 18 03/25/2018 gas panel , arter ial blood arterial pH 7.350 7.35-7 .45 Not Available [facility] (Lab Registration) [address] [place], [address], 03/25/2018 20:40:49 03/25/20 18 03/25/2018 gas panel , arter ial blood ABG partial pressure CO2 54 mmHg 35-45 high Not Available [facility] (Lab Registration) [address] [place], [address], 03/25/2018 20:40:49 03/25/20 18 03/25/2018 gas panel , arter ial blood ABG partial pressure O2 67.0 mmHg 80-100 low Not Available [facility] (Lab Registration) [address] [place], [address], 03/25/2018 20:40:49 03/25/20 18 03/25/2018 gas panel , arter ial blood ABG bicarbonate 27.2 mEq/L 21-25 high Not Available [facility] (Lab Registration) [address] [place], [address], 03/25/2018 20:40:49 03/25/20 18 03/25/2018 gas panel , arter ial blood ABG base excess 3.1 Not Available [facility] (Lab Registration) [address] [place], [address], 03/25/2018 20:40:49 03/25/20 18 03/25/2018 gas panel , arter ial blood ABG O2 saturation 92 % Not Available [facility] (Lab Registration) [address] [place], [address], 03/25/2018 20:40:49 03/25/20 18 03/25/2018 gas panel , arter ial blood ABG fract of inspired O2 45 % Not Available [facility] (Lab Registration) [address] [place], [address], 03/25/2018 20:40:49 03/25/20 18 03/25/2018 gas panel , arter ial blood ABG L/M 14 L/min Not Available [facility] (Lab Registration) [address] [place], [address], 03/25/2018 20:40:49 03/25/20 18 03/25/2018 gas panel , arter ial blood ABG delivery O2 mode VENTI MASK Not Available [facility] (Lab Registration) [address] [place], [address], 03/25/2018 20:40:49 03/25/20 18 03/25/2018 gas panel , arter ial blood ABG temperature 37.0 Not Available [facility] (Lab Registration) [address] [place], [address], 03/25/2018 20:40:49 03/25/20 18 03/25/2018 gas panel , arter ial blood note Unles s other taylor noted testi ng [facility] [address] [place] [address] [phone] Rinku montana MD CLIA: [id number] Not Available [facility] (Lab Registration) [address] [place], [address], 03/25/2018 20:40:49 03/26/20 18 03/26/2018 gas panel , arter ial blood chuck's test YES Not Available [facility] (Lab Registration) [address] [place], [address], 03/26/2018 05:11:56 03/26/20 18 03/26/2018 gas panel , arter ial blood ABG site LEFT RADIAL Not Available [facility] (Lab Registration) [address] [place], [address], 03/26/2018 05:11:56 03/26/20 18 03/26/2018 gas panel , arter ial blood arterial pH 7.310 7.35-7 .45 low Not Available [facility] (Lab Registration) [address] [place], [address], 03/26/2018 05:11:56 03/26/20 18 03/26/2018 gas panel , arter ial blood ABG partial pressure CO2 61 mmHg 35-45 critical high Not Available [facility] (Lab Registration) [address] [place], [address], 03/26/2018 05:11:56 03/26/20 18 03/26/2018 gas panel , arter ial blood ABG partial pressure O2 70.0 mmHg 80-100 low Not Available [facility] (Lab Registration) [address] [place], [address], 03/26/2018 05:11:56 03/26/20 18 03/26/2018 gas panel , arter ial blood ABG bicarbonate 27.1 mEq/L 21-25 high Not Available [facility] (Lab Registration) [address] [place], [address], 03/26/2018 05:11:56 03/26/20 18 03/26/2018 gas panel , arter ial blood ABG base excess 3.0 Not Available [facility] (Lab Registration) [address] [place], [address], 03/26/2018 05:11:56 03/26/20 18 03/26/2018 gas panel , arter ial blood ABG O2 saturation 92 % Not Available [facility] (Lab Registration) [address] [place], [address], 03/26/2018 05:11:56 03/26/20 18 03/26/2018 gas panel , arter ial blood ABG fract of inspired O2 45 % Not Available [facility] (Lab Registration) [address] [place], [address], 03/26/2018 05:11:56 03/26/20 18 03/26/2018 gas panel , arter ial blood ABG L/M 12 L/min Not Available [facility] (Lab Registration) [address] [place], [address], 03/26/2018 05:11:56 03/26/20 18 03/26/2018 gas panel , arter ial blood ABG delivery O2 mode VENTI MASK Not Available [facility] (Lab Registration) [address] [place], [address], 03/26/2018 05:11:56 03/26/20 18 03/26/2018 gas panel , arter ial blood ABG temperature 37.0 Not Available [facility] (Lab Registration) [address] [place], [address], 03/26/2018 05:11:56 03/26/20 18 03/26/2018 gas panel , arter ial blood note Unles s other taylor noted testi ng perfo rmed at: [facility] [address] [place] [address] [phone] Rinku montana MD CLIA: [id number] Not Available [facility] (Lab Registration) [address] [place], [address], 03/26/2018 05:11:56 03/26/20 18 03/26/2018 PT/IN R PT (prothrombin time) 45.7 secon ds 9.33-1 0.37 high Not Available [facility] (Lab Registration) [address] [place], [address], 03/26/2018 05:21:02 03/26/20 18 03/26/2018 PT/IN R INR 4.28 0.9-1. 1 critical high INR is inten ded to be used only for patie nts on stabl e oral anti- coagu lant thera py. *Ther apeut ic Range s 2.0 - 3.0 Usual Thera peuti c Range 2.5 - 3.5 For patie nts with a histo ry of multi ple deep vein throm bus or mecha nical heart valve s. Not Available [facility] (Lab Registration) [address] [place], [address], 03/26/2018 05:21:02 03/26/20 18 03/26/2018 PT/IN R note Unles s other taylor noted testi ng perfo rmed at: [facility] [address], [place] [id number] [phone] Rinku montana MD CLIA: [id number] Not Available [facility] (Lab Registration) [address] [place], [address], 03/26/2018 05:21:02 03/26/20 18 03/26/2018 BMP, serum or plasm a sodium 134 mmol/ L 136-14 5 low Not Available [facility] (Lab Registration) [address] [place], [address], 03/26/2018 05:22:04 03/26/20 18 03/26/2018 BMP, serum or plasm a potassium 4.8 mmol/ L 3.5-5. 1 Not Available [facility] (Lab Registration) [address] [place], [address], 03/26/2018 05:22:04 03/26/20 18 03/26/2018 BMP, serum or plasm a chloride 100 mmol/ L 98-107 Not Available [facility] (Lab Registration) [address] [place], [address], 03/26/2018 05:22:04 03/26/20 18 03/26/2018 BMP, serum or plasm a carbon dioxide 27 mmol/ L 21-32 Not Available [facility] (Lab Registration) [address] [place], [address], 03/26/2018 05:22:04 03/26/20 18 03/26/2018 BMP, serum or plasm a anion gap 7.0 Not Available [facility] (Lab Registration) [address] [place], [address], 03/26/2018 05:22:04 03/26/20 18 03/26/2018 BMP, serum or plasm a glucose 333 mg/dL 70-110 high Not Available [facility] (Lab Registration) [address] [place], [address], 03/26/2018 05:22:04 03/26/20 18 03/26/2018 BMP, serum or plasm a blood urea nitrogen 23 mg/dL 7-18 high Not Available [facility] (Lab Registration) [address] [place], [address], 03/26/2018 05:22:04 03/26/20 18 03/26/2018 BMP, serum or plasm a creatinine 1.1 mg/dL 0.6-1. 0 high Not Available [facility] (Lab Registration) [address] [place], [address], 03/26/2018 05:22:04 03/26/20 18 03/26/2018 BMP, serum or plasm a BUN/creatini ne ratio 20.9 ratio 9-21 Not Available [facility] (Lab Registration) [address] [place], [address], 03/26/2018 05:22:04 03/26/20 18 03/26/2018 BMP, serum or plasm a estimated glom filtration rate 54 mL/mi n >60- low Not Available [facility] (Lab Registration) [address] [place], [address], 03/26/2018 05:22:04 03/26/20 18 03/26/2018 BMP, serum or plasm a calcium 8.9 mg/dL 8.5-10 .1 Not Available [facility] (Lab Registration) [address] [place], [address], 03/26/2018 05:22:04 03/26/20 18 03/26/2018 BMP, serum or plasm a note Unles s other taylor noted testi ng perfo rmed at: [facility] [address] [place] [address] [phone] Rinku montana MD CLIA: [id number] Not Available [facility] (Lab Registration) [address] [place], [address], 03/26/2018 05:22:04 03/26/20 18 03/26/2018 CBC w/ auto diff WBC 34.6 10 4.5-11 .5 high Not Available [facility] (Lab Registration) [address] [place], [address], 03/26/2018 05:26:12 03/26/20 18 03/26/2018 CBC w/ auto diff RBC 3.74 10 4.25-5 .57 low Not Available [facility] (Lab Registration) [address] [place], [address], 03/26/2018 05:26:12 03/26/20 18 03/26/2018 CBC w/ auto diff HGB 9.8 g/dL 12.0-1 5.7 low Not Available [facility] (Lab Registration) [address] [place], [address], 03/26/2018 05:26:12 03/26/20 18 03/26/2018 CBC w/ auto diff HCT 33.1 % 36.0-4 7.0 low Not Available [facility] (Lab Registration) [address] [place], [address], 03/26/2018 05:26:12 03/26/20 18 03/26/2018 CBC w/ auto diff MCV 88.5 fL 80-95 Not Available [facility] (Lab Registration) [address] [place], [address], 03/26/2018 05:26:12 03/26/20 18 03/26/2018 CBC w/ auto diff MCH 26.2 pg 27.0-3 4.0 low Not Available [facility] (Lab Registration) [address] [place], [address], 03/26/2018 05:26:12 03/26/20 18 03/26/2018 CBC w/ auto diff MCHC 29.6 g/dL 32.0-3 6.0 low Not Available [facility] (Lab Registration) [address] [place], [address], 03/26/2018 05:26:12 03/26/20 18 03/26/2018 CBC w/ auto diff RDW 18.0 % 12.3-1 5.1 high Not Available [facility] (Lab Registration) [address] [place], [address], 03/26/2018 05:26:12 03/26/20 18 03/26/2018 CBC w/ auto diff platelet count 423 10 150-45 0 Not Available [facility] (Lab Registration) [address] [place], [address], 03/26/2018 05:26:12 03/26/20 18 03/26/2018 CBC w/ auto diff granulocyte% 88 % 40-75 high Not Available [facility] (Lab Registration) [address] [place], [address], 03/26/2018 05:26:12 03/26/20 18 03/26/2018 CBC w/ auto diff lymphocyte% 5 % 15-57 low Not Available [facility] (Lab Registration) [address] [place], [address], 03/26/2018 05:26:12 03/26/20 18 03/26/2018 CBC w/ auto diff monocyte% 3 % 4.0-12 .0 low Not Available [facility] (Lab Registration) [address] [place], [address], 03/26/2018 05:26:12 03/26/20 18 03/26/2018 CBC w/ auto diff eosinophil% 0 % 0.0-4. 0 Not Available [facility] (Lab Registration) [address] [place], [address], 03/26/2018 05:26:12 03/26/20 18 03/26/2018 CBC w/ auto diff basophil% 0 % 0.0-1. 0 Not Available [facility] (Lab Registration) [address] [place], [address], 03/26/2018 05:26:12 03/26/20 18 03/26/2018 CBC w/ auto diff granulocyte# 30.4 10 1.8-8. 62 high Not Available [facility] (Lab Registration) [address] [place], [address], 03/26/2018 05:26:12 03/26/20 18 03/26/2018 CBC w/ auto diff lymphocyte# 1.7 10 0.76-5 .40 Not Available [facility] (Lab Registration) [address] [place], [address], 03/26/2018 05:26:12 06/12/20 18 03/26/2018 CBC w/ auto diff monocyte# 1.0 10 0.18-1 .38 Not Available [facility] (Lab Registration) [address] [place], [address], 03/26/2018 05:26:12 03/26/20 18 03/26/2018 CBC w/ auto diff eosinophil# 0.0 10 0.00-0 .46 Not Available [facility] (Lab Registration) [address] [place], [address], 03/26/2018 05:26:12 03/26/20 18 03/26/2018 CBC w/ auto diff basophil# 0.0 10 0.-0.1 1 Not Available [facility] (Lab Registration) [address] [place], [address], 03/26/2018 05:26:12 03/26/20 18 03/26/2018 CBC w/ auto diff manual differential YES Not Available [facility] (Lab Registration) [address] [place], [address], 03/26/2018 05:26:12 03/26/20 18 03/26/2018 CBC w/ auto diff RBC morphology ABNORM AL normal Not Available [facility] (Lab Registration) [address] [place], [address], 03/26/2018 05:26:12 03/26/20 18 03/26/2018 CBC w/ auto diff platelet estimate ADEQUA TE adequa te Not Available [facility] (Lab Registration) [address] [place], [address], 03/26/2018 05:26:12 03/26/20 18 03/26/2018 CBC w/ auto diff platelet morphology NORMAL normal Not Available [facility] (Lab Registration) [address] [place], [address], 03/26/2018 05:26:12 03/26/20 18 03/26/2018 CBC w/ auto diff band neutrophil 2 % 0.0-8. 0 Not Available [facility] (Lab Registration) [address] [place], [address], 03/26/2018 05:26:12 03/26/20 18 03/26/2018 CBC w/ auto diff metamyelocyt e 1 % 0-1 Not Available [facility] (Lab Registration) [address] [place], [address], 03/26/2018 05:26:12 03/26/20 18 03/26/2018 CBC w/ auto diff myelocyte 1 % 0-1 Not Available [facility] (Lab Registration) [address] [place], [address], 03/26/2018 05:26:12 03/26/20 18 03/26/2018 CBC w/ auto diff anisocytosis MODERA TE none seen Not Available [facility] (Lab Registration) [address] [place], [address], 03/26/2018 05:26:12 03/26/20 18 03/26/2018 CBC w/ auto diff hypochromia SLIGHT none seen Not Available [facility] (Lab Registration) [address] [place], [address], 03/26/2018 05:26:12 03/26/20 18 03/26/2018 CBC w/ auto diff note Unles s other taylor noted testi ng perfo rmed at: [facility] [address] [place] [address] [phone] Rinku montana MD CLIA: [id number] Not Available [facility] (Lab Registration) [address] [place], [address], 03/26/2018 05:26:12 03/26/20 18 03/26/2018 lacti c acid, blood lactate 2.2 mmole /L 0.4-2. 0 high Not Available [facility] (Lab Registration) [address] [place], [address], 03/26/2018 05:28:16 03/26/20 18 03/26/2018 lacti c acid, blood note Unles s other taylor noted testi ng perfo rmed at: [facility] [address] [place] [address] [phone] Rinku montana MD CLIA: [id number] Not Available [facility] (Lab Registration) [address], [place], [address], 03/26/2018 05:28:16 03/26/20 18 03/26/2018 pro BNP (pro B-typ e natri ureti c pepti de), serum or plasm a B-type natriuretic peptide BNP 26.0 pg/mL 0.0-10 0 Non-C HF: Less than 100 pg/mL Class I: Great er than 100 pg/mL - Patie nts have no limit ation s of physi rick activ ity and have no sympt oms with ordin emma physi rick activ ity. Class II: Great er than 221 pg/mL - Patie nts have a sligh t limit ation of physi rick activ ity and have sympt oms with ordin emma physi rick activ ity. Class III: Great er than 459 pg/mL - Patie nts have a marke d limit ation of physi rick activ ity and have sympt oms with less than ordin emma physi rick activ ity, but not at rest. Class IV : Great er than 1006 pg/mL -Ambar ents are unabl e to perfo rm any physi rick activ ity witho ut disco mfort . Not Available [facility] (Lab Registration) [address], [place], [address], 03/26/2018 05:34:22 03/26/20 18 03/26/2018 pro BNP (pro B-typ e natri ureti c pepti de), serum or plasm a note Unles s other taylor noted testi ng perfo rmed at: [facility] [address] [place] [address] [phone] Rinku montana MD CLIA: [id number] Not Available [facility] (Lab Registration) [address] [place], [address], 03/26/2018 05:34:22 03/26/20 18 03/26/2018 urina lysis , compl ete color YELLOW yellow Not Available [facility] (Lab Registration) [address] [place], [address], 03/26/2018 06:19:31 03/26/20 18 03/26/2018 urina lysis , compl ete appearance CLEAR clear Not Available [facility] (Lab Registration) [address] [place], [address], 03/26/2018 06:19:31 03/26/20 18 03/26/2018 urina lysis , compl ete glucose 1000 normal Not Available [facility] (Lab Registration) [address] [place], [address], 03/26/2018 06:19:31 03/26/20 18 03/26/2018 urina lysis , compl ete bilirubin NEGATI VE negati ve Not Available [facility] (Lab Registration) [address] [place], [address], 03/26/2018 06:19:31 03/26/20 18 03/26/2018 urina lysis , compl ete ketone NEGATI VE mg/dL negati ve Not Available [facility] (Lab Registration) [address] [place], [address], 03/26/2018 06:19:31 03/26/20 18 03/26/2018 urina lysis , compl ete specific gravity 1.010 1.005- 1.035 Not Available [facility] (Lab Registration) [address] [place], [address], 03/26/2018 06:19:31 03/26/20 18 03/26/2018 urina lysis , compl ete blood 10 (TRACE ) /mcL negati ve Not Available [facility] (Lab Registration) [address] [place], [address], 03/26/2018 06:19:31 03/26/20 18 03/26/2018 urina lysis , compl ete pH 6.00 5.0-7. 5 Not Available [facility] (Lab Registration) [address] [place], [address], 03/26/2018 06:19:31 03/26/20 18 03/26/2018 urina lysis , compl ete protein 15 (TRACE ) mg/dL negati ve Not Available [facility] (Lab Registration) [address] [place], [address], 03/26/2018 06:19:31 03/26/20 18 03/26/2018 urina lysis , compl ete urobilnogen NORMAL mg/dL normal Not Available [facility] (Lab Registration) [address] [place], [address], 03/26/2018 06:19:31 03/26/20 18 03/26/2018 urina lysis , compl ete nitrite NEGATI VE negati ve Not Available [facility] (Lab Registration) [address] [place], [address], 03/26/2018 06:19:31 03/26/20 18 03/26/2018 urina lysis , compl ete leukocyte esterase NEGATI VE /mcL negati ve Not Available [facility] (Lab Registration) [address] [place], [address], 03/26/2018 06:19:31 03/26/20 18 03/26/2018 urina lysis , compl ete culture? NOT REQUIR ED Not Available [facility] (Lab Registration) [address] [place], [address], 03/26/2018 06:19:31 03/26/20 18 03/26/2018 urina lysis , compl ete RBC 0-3 0-3 Not Available [facility] (Lab Registration) [address] [place], [address], 03/26/2018 06:19:31 03/26/20 18 03/26/2018 urina lysis , compl ete WBC RARE none seen Not Available [facility] (Lab Registration) [address] [place], [address], 03/26/2018 06:19:31 03/26/20 18 03/26/2018 urina lysis , compl ete epithelial cell 0-3 none seen Not Available [facility] (Lab Registration) [address] [place], [address], 03/26/2018 06:19:31 03/26/20 18 03/26/2018 urina lysis , compl ete bacteria NONE SEEN none seen Not Available [facility] (Lab Registration) [address] [place], [address], 03/26/2018 06:19:31 03/26/20 18 03/26/2018 urina lysis , compl ete note Unles s other taylor noted testi ng perfo rmed at: [facility] [address] [place] [phone] Rinku montana MD CLIA: [id number] Not Available [facility] (Lab Registration) [address] [place], [address], 03/26/2018 06:19:31 03/26/20 18 03/26/2018 lacti c acid 3 HR post lac3hr 2.5 mmole /L 0.4-2. 0 high Not Available [facility] (Lab Registration) [address] [place], [address], 03/26/2018 09:25:53 03/26/20 18 03/26/2018 lacti c acid 3 HR post note Unlgregg s other taylor noted testi ng perfo rmed at: [facility] [address] [place] [phone] Rinku montana MD CLIA: [id number] Not Available [facility] (Lab Registration) [address] [place], [address], 03/26/2018 09:25:53 03/27/20 18 03/27/2018 gas panel , arter ial blood chuck's test YES Not Available [facility] (Lab Registration) [address] [place], [address], 03/27/2018 04:31:36 03/27/20 18 03/27/2018 gas panel , arter ial blood ABG site LEFT RADIAL Not Available [facility] (Lab Registration) [address] [place], [address], 03/27/2018 04:31:36 03/27/20 18 03/27/2018 gas panel , arter ial blood arterial pH 7.390 7.35-7 .45 Not Available [facility] (Lab Registration) [address] [place], [address], 03/27/2018 04:31:36 03/27/20 18 03/27/2018 gas panel , arter ial blood ABG partial pressure CO2 65 mmHg 35-45 critical high Not Available [facility] (Lab Registration) [address] [place], [address], 03/27/2018 04:31:36 03/27/20 18 03/27/2018 gas panel , arter ial blood ABG partial pressure O2 129.0 mmHg 80-100 high Not Available [facility] (Lab Registration) [address] [place], [address], 03/27/2018 04:31:36 03/27/20 18 03/27/2018 gas panel , arter ial blood ABG bicarbonate 34.2 mEq/L 21-25 high Not Available [facility] (Lab Registration) [address] [place], [address], 03/27/2018 04:31:36 03/27/20 18 03/27/2018 gas panel , arter ial blood ABG base excess 11.8 Not Available [facility] (Lab Registration) [address] [place], [address], 03/27/2018 04:31:36 03/27/20 18 03/27/2018 gas panel , arter ial blood ABG O2 saturation 99 % Not Available [facility] (Lab Registration) [address] [place], [address], 03/27/2018 04:31:36 03/27/20 18 03/27/2018 gas panel , arter ial blood ABG fract of inspired O2 45 % Not Available [facility] (Lab Registration) [address] [place], [address], 03/27/2018 04:31:36 03/27/20 18 03/27/2018 gas panel , arter ial blood ABG delivery O2 mode BIPAP Not Available [facility] (Lab Registration) [address] [place], [address], 03/27/2018 04:31:36 03/27/20 18 03/27/2018 gas panel , arter ial blood BIPAP st rate 12 Not Available [facility] (Lab Registration) [address] [place], [address], 03/27/2018 04:31:36 03/27/20 18 03/27/2018 gas panel , arter ial blood ABG pos end expir pressure 8 cm_H2 O Not Available [facility] (Lab Registration) [address] [place], [address], 03/27/2018 04:31:36 03/27/20 18 03/27/2018 gas panel , arter ial blood ABG temperature 37.0 Not Available [facility] (Lab Registration) [address] [place], [address], 03/27/2018 04:31:36 03/27/20 18 03/27/2018 gas panel , arter ial blood ventilator mode BIPAP mL Not Available [facility] (Lab Registration) [address] [place], [address], 03/27/2018 04:31:36 03/27/20 18 03/27/2018 gas panel , arter ial blood pressure support 16 Not Available [facility] (Lab Registration) [address] [place], [address], 03/27/2018 04:31:36 03/27/20 18 03/27/2018 gas panel , arter ial blood note Unles s other taylor noted testi ng perfo rmed at: [facility] [address] [place] [address] [phone] Rinku montana MD CLIA: [id number] Not Available [facility] (Lab Registration) [address] [place], [address], 03/27/2018 04:31:36 03/27/20 18 03/27/2018 BMP, serum or plasm a sodium 137 mmol/ L 136-14 5 Not Available [facility] (Lab Registration) [address] [place], [address], 03/27/2018 06:47:26 03/27/20 18 03/27/2018 BMP, serum or plasm a potassium 4.0 mmol/ L 3.5-5. 1 Not Available [facility] (Lab Registration) [address] [place], [address], 03/27/2018 06:47:26 03/27/20 18 03/27/2018 BMP, serum or plasm a chloride 100 mmol/ L 98-107 Not Available [facility] (Lab Registration) [address] [place], [address], 03/27/2018 06:47:26 03/27/20 18 03/27/2018 BMP, serum or plasm a carbon dioxide 32 mmol/ L 21-32 Not Available [facility] (Lab Registration) [address] [place], [address], 03/27/2018 06:47:26 03/27/20 18 03/27/2018 BMP, serum or plasm a anion gap 5.0 Not Available [facility] (Lab Registration) [address] [place], [address], 03/27/2018 06:47:26 03/27/20 18 03/27/2018 BMP, serum or plasm a glucose 208 mg/dL 70-110 high Not Available [facility] (Lab Registration) [address] [place], [address], 03/27/2018 06:47:26 03/27/20 18 03/27/2018 BMP, serum or plasm a blood urea nitrogen 18 mg/dL 7-18 Not Available [facility] (Lab Registration) [address] [place], [address], 03/27/2018 06:47:26 03/27/20 18 03/27/2018 BMP, serum or plasm a creatinine 0.8 mg/dL 0.6-1. 0 Not Available [facility] (Lab Registration) [address] [place], [address], 03/27/2018 06:47:26 03/27/20 18 03/27/2018 BMP, serum or plasm a BUN/creatini ne ratio 22.5 ratio 9-21 high Not Available [facility] (Lab Registration) [address] [place], [address], 03/27/2018 06:47:26 03/27/20 18 03/27/2018 BMP, serum or plasm a estimated glom filtration rate 78 mL/mi n >60- Not Available [facility] (Lab Registration) [address] [place], [address], 03/27/2018 06:47:26 03/27/20 18 03/27/2018 BMP, serum or plasm a calcium 8.7 mg/dL 8.5-10 .1 Not Available [facility] (Lab Registration) [address] [place], [address], 03/27/2018 06:47:26 03/27/20 18 03/27/2018 BMP, serum or plasm a note Unles s other taylor noted testi ng perfo rmed at: [facility] [address] [place], [place] [id number] [phone] Rinku montana MD CLIA: [id number] Not Available [facility] (Lab Registration) [address], [place], [address], 03/27/2018 06:47:26 03/27/20 18 03/27/2018 PT/IN R PT (prothrombin time) 33.5 secon ds 9.33-1 0.37 high Not Available [facility] (Lab Registration) [address], [place], [address], 03/27/2018 06:47:27 03/27/20 18 03/27/2018 PT/IN R INR 3.18 0.9-1. 1 high INR is inten ded to be used only for patie nts on stabl e oral anti- coagu lant thera py. *Ther apeut ic Range s 2.0 - 3.0 Usual Thera peuti c Range 2.5 - 3.5 For patie nts with a histo ry of multi ple deep vein throm bus or mecha nical heart valve s. Not Available [facility] (Lab Registration) [address], [place], [address], 03/27/2018 06:47:27 03/27/20 18 03/27/2018 PT/IN R note Unles s other taylor noted testi ng perfo rmed at: [facility] [address] [place], [place] [id number] [phone] Rinku montana MD CLIA: [id number] Not Available [facility] (Lab Registration) [address] [place], [address], 03/27/2018 06:47:27 03/27/20 18 03/27/2018 CBC w/ auto diff WBC 24.4 10 4.5-11 .5 high Not Available [facility] (Lab Registration) [address] [place], [address], 03/27/2018 06:47:28 03/27/20 18 03/27/2018 CBC w/ auto diff RBC 3.68 10 4.25-5 .57 low Not Available [facility] (Lab Registration) [address] [place], [address], 03/27/2018 06:47:28 03/27/20 18 03/27/2018 CBC w/ auto diff HGB 9.6 g/dL 12.0-1 5.7 low Not Available [facility] (Lab Registration) [address] [place], [address], 03/27/2018 06:47:28 03/27/20 18 03/27/2018 CBC w/ auto diff HCT 32.3 % 36.0-4 7.0 low Not Available [facility] (Lab Registration) [address] [place], [address], 03/27/2018 06:47:28 03/27/20 18 03/27/2018 CBC w/ auto diff MCV 87.8 fL 80-95 Not Available [facility] (Lab Registration) [address] [place], [address], 03/27/2018 06:47:28 03/27/20 18 03/27/2018 CBC w/ auto diff MCH 26.1 pg 27.0-3 4.0 low Not Available [facility] (Lab Registration) [address] [place], [address], 03/27/2018 06:47:28 03/27/20 18 03/27/2018 CBC w/ auto diff MCHC 29.7 g/dL 32.0-3 6.0 low Not Available [facility] (Lab Registration) [address] [place], [address], 03/27/2018 06:47:28 03/27/20 18 03/27/2018 CBC w/ auto diff RDW 17.7 % 12.3-1 5.1 high Not Available [facility] (Lab Registration) [address] [place], [address], 03/27/2018 06:47:28 03/27/20 18 03/27/2018 CBC w/ auto diff platelet count 418 10 150-45 0 Not Available [facility] (Lab Registration) [address] [place], [address], 03/27/2018 06:47:28 03/27/20 18 03/27/2018 CBC w/ auto diff granulocyte% 77.5 % 40-75 high Not Available [facility] (Lab Registration) [address] [place], [address], 03/27/2018 06:47:28 03/27/20 18 03/27/2018 CBC w/ auto diff lymphocyte% 13.5 % 15-57 low Not Available [facility] (Lab Registration) [address] [place], [address], 03/27/2018 06:47:28 03/27/20 18 03/27/2018 CBC w/ auto diff monocyte% 8.9 % 4.0-12 .0 Not Available [facility] (Lab Registration) [address] [place], [address], 03/27/2018 06:47:28 03/27/20 18 03/27/2018 CBC w/ auto diff eosinophil% 0.1 % 0.0-4. 0 Not Available [facility] (Lab Registration) [address] [place], [address], 03/27/2018 06:47:28 03/27/20 18 03/27/2018 CBC w/ auto diff basophil% 0.0 % 0.0-1. 0 Not Available [facility] (Lab Registration) [place], [address], 03/27/2018 06:47:28 03/27/20 18 03/27/2018 CBC w/ auto diff granulocyte# 18.91 10 1.8-8. 62 high Not Available [facility] (Lab Registration) [address], [place], [address], 03/27/2018 06:47:28 03/27/20 18 03/27/2018 CBC w/ auto diff lymphocyte# 3.31 10 0.76-5 .40 Not Available [facility] (Lab Registration) [address], [place], [address], 03/27/2018 06:47:28 03/27/20 18 03/27/2018 CBC w/ auto diff monocyte# 2.18 10 0.18-1 .38 high Not Available [facility] (Lab Registration) [address], [place], [address], 03/27/2018 06:47:28 03/27/20 18 03/27/2018 CBC w/ auto diff eosinophil# 0.03 10 0.00-0 .46 Not Available [facility] (Lab Registration) [address], [place], [address], 03/27/2018 06:47:28 03/27/20 18 03/27/2018 CBC w/ auto diff basophil# 0.01 10 0.-0.1 1 Not Available [facility] (Lab Registration) [address], [place], [address], 03/27/2018 06:47:28 03/27/20 18 03/27/2018 CBC w/ auto diff manual differential NO Not Available [facility] (Lab Registration) [address] [place], [address], 03/27/2018 06:47:28 03/27/20 18 03/27/2018 CBC w/ auto diff note Unles s other taylor noted testi ng perfo rmed at: [facility] [address] [place] [address] [phone] Rinku montana MD CLIA: [id number] Not Available [facility] (Lab Registration) [address], [place], [address], 03/27/2018 06:47:28 03/27/20 18 03/27/2018 pro BNP (pro B-typ e natri ureti c pepti de), serum or plasm a B-type natriuretic peptide BNP 11.3 pg/mL 0.0-10 0 Non-C HF: Less than 100 pg/mL Class I: Great er than 100 pg/mL - Patie nts have no limit ation s of physi rick activ ity and have no sympt oms with ordin emma physi rick activ ity. Class II: Great er than 221 pg/mL - Patie nts have a sligh t limit ation of physi rick activ ity and have sympt oms with ordin emma physi rick activ ity. Class III: Great er than 459 pg/mL - Patie nts have a marke d limit ation of physi rick activ ity and have sympt oms with less than ordin emma physi rick activ ity, but not at rest. Class IV : Great er than 1006 pg/mL -Ambar ents are unabl e to perfo rm any physi rick activ ity witho ut disco mfort . Not Available [facility] (Lab Registration) [address], [place], [address], 03/27/2018 07:39:15 03/27/20 18 03/27/2018 pro BNP (pro B-typ e natri ureti c pepti de), serum or plasm a note Unles s other taylor noted testi ng perfo rmed at: [facility] [address] [place] [address] [phone] Rinku montana MD CLIA: [id number] Not Available [facility] (Lab Registration) [address], [place], [address], 03/27/2018 07:39:15 04/24/20 18 04/24/2018 PT/IN R PT (prothrombin time) 53.3 secon ds 9.33-1 0.37 high Not Available [facility] (Lab Registration) [address], [place], [address], 04/24/2018 11:31:50 04/24/20 18 04/24/2018 PT/IN R INR 5.13 0.9-1. 1 critical high INR is inten ded to be used only for patie nts on stabl e oral anti- coagu lant thera py. *Ther apeut ic Range s 2.0 - 3.0 Usual Thera peuti c Range 2.5 - 3.5 For patie nts with a histo ry of multi ple deep vein throm bus or mecha nical heart valve s. Not Available [facility] (Lab Registration) [address], [place], [address], 04/24/2018 11:31:50 04/24/20 18 04/24/2018 PT/IN R note Unles s other taylor noted testi ng perfo rmed at: [facility] [address] [place] [address] [phone] Rinku montana MD CLIA: [id number] Not Available [facility] (Lab Registration) [address], [place], [address], 04/24/2018 11:31:50 04/26/20 18 04/26/2018 CBC w/ auto diff WBC 8.9 10 4.5-11 .5 Not Available [facility] (Lab Registration) [address] [place], [address], 04/26/2018 16:10:27 04/26/20 18 04/26/2018 CBC w/ auto diff RBC 3.52 10 4.25-5 .57 low Not Available [facility] (Lab Registration) [address], [place], [address], 04/26/2018 16:10:27 04/26/20 18 04/26/2018 CBC w/ auto diff HGB 9.2 g/dL 12.0-1 5.7 low Not Available [facility] (Lab Registration) [address] [place], [address], 04/26/2018 16:10:27 04/26/20 18 04/26/2018 CBC w/ auto diff HCT 32.0 % 36.0-4 7.0 low Not Available [facility] (Lab Registration) [address] [place], [address], 04/26/2018 16:10:27 04/26/20 18 04/26/2018 CBC w/ auto diff MCV 90.9 fL 80-95 Not Available [facility] (Lab Registration) [address] [place], [address], 04/26/2018 16:10:27 04/26/20 18 04/26/2018 CBC w/ auto diff MCH 26.1 pg 27.0-3 4.0 low Not Available [facility] (Lab Registration) [address] [place], [address], 04/26/2018 16:10:27 04/26/20 18 04/26/2018 CBC w/ auto diff MCHC 28.8 g/dL 32.0-3 6.0 low Not Available [facility] (Lab Registration) [address] [place], [address], 04/26/2018 16:10:27 04/26/20 18 04/26/2018 CBC w/ auto diff RDW 18.7 % 12.3-1 5.1 high Not Available [facility] (Lab Registration) [address] [place], [address], 04/26/2018 16:10:27 04/26/20 18 04/26/2018 CBC w/ auto diff platelet count 496 10 150-45 0 high Not Available [facility] (Lab Registration) [address] [place], [address], 04/26/2018 16:10:27 04/26/20 18 04/26/2018 CBC w/ auto diff granulocyte% 44.9 % 40-75 Not Available [facility] (Lab Registration) [address] [place], [address], 04/26/2018 16:10:27 04/26/20 18 04/26/2018 CBC w/ auto diff lymphocyte% 40.9 % 15-57 Not Available [facility] (Lab Registration) [address] [place], [address], 04/26/2018 16:10:27 04/26/20 18 04/26/2018 CBC w/ auto diff monocyte% 10.3 % 4.0-12 .0 Not Available [facility] (Lab Registration) [address] [place], [address], 04/26/2018 16:10:27 04/26/20 18 04/26/2018 CBC w/ auto diff eosinophil% 3.7 % 0.0-4. 0 Not Available [facility] (Lab Registration) [address] [place], [address], 04/26/2018 16:10:27 04/26/20 18 04/26/2018 CBC w/ auto diff basophil% 0.2 % 0.0-1. 0 Not Available [facility] (Lab Registration) [address] [place], [address], 04/26/2018 16:10:27 04/26/20 18 04/26/2018 CBC w/ auto diff granulocyte# 4.01 10 1.8-8. 62 Not Available [facility] (Lab Registration) [address] [place], [address], 04/26/2018 16:10:27 04/26/20 18 04/26/2018 CBC w/ auto diff lymphocyte# 3.66 10 0.76-5 .40 Not Available [facility] (Lab Registration) [address] [place], [address], 04/26/2018 16:10:27 04/26/20 18 04/26/2018 CBC w/ auto diff monocyte# 0.92 10 0.18-1 .38 Not Available [facility] (Lab Registration) [address], [place], [address], 04/26/2018 16:10:27 04/26/20 18 04/26/2018 CBC w/ auto diff eosinophil# 0.33 10 0.00-0 .46 Not Available [facility] (Lab Registration) [address] [place], [address], 04/26/2018 16:10:27 04/26/20 18 04/26/2018 CBC w/ auto diff basophil# 0.02 10 0.-0.1 1 Not Available [facility] (Lab Registration) [address] [place], [address], 04/26/2018 16:10:27 04/26/20 18 04/26/2018 CBC w/ auto diff manual differential NO Not Available [facility] (Lab Registration) [address] [place], [address], 04/26/2018 16:10:27 04/26/20 18 04/26/2018 CBC w/ auto diff note Unles s other taylor noted testi ng perfo rmed at: [facility] [address] [place] [address] [phone] Rinuk montana MD CLIA: [id number] Not Available [facility] (Lab Registration) [address] [place], [address], 04/26/2018 16:10:27 04/26/20 18 04/26/2018 urina lysis , compl ete color YELLOW yellow Not Available [facility] (Lab Registration) [address] [place], [address], 04/26/2018 16:11:31 04/26/20 18 04/26/2018 urina lysis , compl ete appearance CLEAR clear Not Available [facility] (Lab Registration) [address] [place], [address], 04/26/2018 16:11:31 04/26/20 18 04/26/2018 urina lysis , compl ete glucose NORMAL normal Not Available [facility] (Lab Registration) [address] [place], [address], 04/26/2018 16:11:31 04/26/20 18 04/26/2018 urina lysis , compl ete bilirubin 1+ negati ve Not Available [facility] (Lab Registration) [address] [place], [address], 04/26/2018 16:11:31 04/26/20 18 04/26/2018 urina lysis , compl ete ketone 1+ mg/dL negati ve Not Available [facility] (Lab Registration) [address] [place], [address], 04/26/2018 16:11:31 04/26/20 18 04/26/2018 urina lysis , compl ete specific gravity 1.025 1.005- 1.035 Not Available [facility] (Lab Registration) [address] [place], [address], 04/26/2018 16:11:31 04/26/20 18 04/26/2018 urina lysis , compl ete blood 10 (TRACE ) /mcL negati ve Not Available [facility] (Lab Registration) [address] [place], [address], 04/26/2018 16:11:31 04/26/20 18 04/26/2018 urina lysis , compl ete pH 5.00 5.0-7. 5 Not Available [facility] (Lab Registration) [address] [place], [address], 04/26/2018 16:11:31 04/26/20 18 04/26/2018 urina lysis , compl ete protein 30 (1+) mg/dL negati ve Not Available [facility] (Lab Registration) [address] [place], [address], 04/26/2018 16:11:31 04/26/20 18 04/26/2018 urina lysis , compl ete urobilnogen 1 mg/dL normal Not Available [facility] (Lab Registration) [address] [place], [address], 04/26/2018 16:11:31 04/26/20 18 04/26/2018 urina lysis , compl ete nitrite NEGATI VE negati ve Not Available [facility] (Lab Registration) [address] [place], [address], 04/26/2018 16:11:31 04/26/20 18 04/26/2018 urina lysis , compl ete leukocyte esterase TRACE (25) /mcL negati ve Not Available [facility] (Lab Registration) [address] [place], [address], 04/26/2018 16:11:31 04/26/20 18 04/26/2018 urina lysis , compl ete culture? NOT REQUIR ED Not Available [facility] (Lab Registration) [address] [place], [address], 04/26/2018 16:11:31 04/26/20 18 04/26/2018 urina lysis , compl ete RBC RARE 0-3 Not Available [facility] (Lab Registration) [address] [place], [address], 04/26/2018 16:11:31 04/26/20 18 04/26/2018 urina lysis , compl ete WBC RARE none seen Not Available [facility] (Lab Registration) [address] [place], [address], 04/26/2018 16:11:31 04/26/20 18 04/26/2018 urina lysis , compl ete epithelial cell 5-10 none seen Not Available [facility] (Lab Registration) [address] [place], [address], 04/26/2018 16:11:31 04/26/20 18 04/26/2018 urina lysis , compl ete bacteria 1+ none seen Not Available [facility] (Lab Registration) [address], [place], [address], 04/26/2018 16:11:31 04/26/20 18 04/26/2018 urina lysis , compl ete note Johnathan chambers other taylor noted testi ng perfo rmed at: [facility] [address] [place] [phone] Rinku montana MD CLIA: [id number] Not Available [facility] (Lab Registration) [address] [place], [address], 04/26/2018 16:11:31 04/26/20 18 04/26/2018 HbA1c (hemo globi n A1c), blood glycosylated hemoglobin A1C 8.8 % 4.5-6. 2 high Not Available [facility] (Lab Registration) [address] [place], [address], 04/26/2018 16:13:47 04/26/20 18 04/26/2018 HbA1c (hemo globi n A1c), blood note Johnathan chambers other taylor noted testi ng perfo rmed at: [facility] [address] [place] [address] [phone] Rinku montana MD CLIA: [id number] Not Available [facility] (Lab Registration) [address] [place], [address], 04/26/2018 16:13:47 04/26/20 18 04/26/2018 TSH, serum or plasm a thyroid stimulating hormone 1.34 mIU/m L 0.34-4 .80 Not Available [facility] (Lab Registration) [address] [place], [address], 04/26/2018 17:05:56 04/26/20 18 04/26/2018 TSH, serum or plasm a note Johnathan chambers other taylor noted testi ng perfo rmed at: [facility] [address] [place] [address] [phone] Rinku montana MD CLIA: [id number] Not Available [facility] (Lab Registration) [address] [place], [address], 04/26/2018 17:05:56 04/26/20 18 04/26/2018 CMP, serum or plasm a sodium 141 mmol/ L 136-14 5 Not Available [facility] (Lab Registration) [address] [place], [address], 04/26/2018 17:06:15 04/26/20 18 04/26/2018 CMP, serum or plasm a potassium 3.8 mmol/ L 3.5-5. 1 Not Available [facility] (Lab Registration) [address] [place], [address], 04/26/2018 17:06:15 04/26/20 18 04/26/2018 CMP, serum or plasm a chloride 104 mmol/ L 98-107 Not Available [facility] (Lab Registration) [address] [place], [address], 04/26/2018 17:06:15 04/26/20 18 04/26/2018 CMP, serum or plasm a carbon dioxide 30 mmol/ L 21-32 Not Available [facility] (Lab Registration) [address] [place], [address], 04/26/2018 17:06:15 04/26/20 18 04/26/2018 CMP, serum or plasm a anion gap 7.0 Not Available [facility] (Lab Registration) [address] [place], [address], 04/26/2018 17:06:15 04/26/20 18 04/26/2018 CMP, serum or plasm a glucose 135 mg/dL 70-110 high Not Available [facility] (Lab Registration) [address] [place], [address], 04/26/2018 17:06:15 04/26/20 18 04/26/2018 CMP, serum or plasm a blood urea nitrogen 12 mg/dL 7-18 Not Available [facility] (Lab Registration) [address] [place], [address], 04/26/2018 17:06:15 04/26/20 18 04/26/2018 CMP, serum or plasm a creatinine 0.8 mg/dL 0.6-1. 0 Not Available [facility] (Lab Registration) [address] [place], [address], 04/26/2018 17:06:15 04/26/20 18 04/26/2018 CMP, serum or plasm a BUN/creatini ne ratio 15.0 ratio 9-21 Not Available [facility] (Lab Registration) [address] [place], [address], 04/26/2018 17:06:15 04/26/20 18 04/26/2018 CMP, serum or plasm a estimated glom filtration rate 78 mL/mi n >60- Not Available [facility] (Lab Registration) [address] [place], [address], 04/26/2018 17:06:15 04/26/20 18 04/26/2018 CMP, serum or plasm a total protein 6.5 g/dL 6.4-8. 2 Not Available [facility] (Lab Registration) [address] [place], [address], 04/26/2018 17:06:15 04/26/20 18 04/26/2018 CMP, serum or plasm a albumin 3.1 g/dL 3.4-5. 0 low Not Available [facility] (Lab Registration) [address] [place], [address], 04/26/2018 17:06:15 04/26/20 18 04/26/2018 CMP, serum or plasm a calcium 8.3 mg/dL 8.5-10 .1 low Not Available [facility] (Lab Registration) [place], [address], 04/26/2018 17:06:15 04/26/20 18 04/26/2018 CMP, serum or plasm a corrected calcium 9.0 mg/dL 8.5-10 .1 Not Available [facility] (Lab Registration) [address] [place], [address], 04/26/2018 17:06:15 04/26/20 18 04/26/2018 CMP, serum or plasm a bilirubin total 0.2 mg/dL 0.4-1. 5 low Not Available [facility] (Lab Registration) [address] [place], [address], 04/26/2018 17:06:15 04/26/20 18 04/26/2018 CMP, serum or plasm a AST (SGOT) 21 U/L 15-37 Not Available [facility] (Lab Registration) [address] [place], [address], 04/26/2018 17:06:15 04/26/20 18 04/26/2018 CMP, serum or plasm a ALT (SGPT) 27 U/L 12-78 Not Available [facility] (Lab Registration) [address] [place], [address], 04/26/2018 17:06:15 04/26/20 18 04/26/2018 CMP, serum or plasm a alk phosphatase 108 U/L 53-141 Not Available [facility] (Lab Registration) [address] [place], [address], 04/26/2018 17:06:15 04/26/20 18 04/26/2018 CMP, serum or plasm a note Unles s other tayolr noted testi ng perfo rmed at: [facility] [address] [place] [address] [phone] Rinku montana MD CLIA: [id number] Not Available [facility] (Lab Registration) [address] [place], [address], 04/26/2018 17:06:15 04/26/20 18 04/26/2018 PT/IN R PT (prothrombin time) 29.2 secon ds 9.33-1 0.37 high Not Available [facility] (Lab Registration) [address], [place], [address], 04/26/2018 19:22:59 04/26/20 18 04/26/2018 PT/IN R INR 2.81 0.9-1. 1 high INR is inten ded to be used only for patie nts on stabl e oral anti- coagu lant thera py. *Ther apeut ic Range s 2.0 - 3.0 Usual Thera peuti c Range 2.5 - 3.5 For patie nts with a histo ry of multi ple deep vein throm bus or mecha nical heart valve s. Not Available [facility] (Lab Registration) [address], [place], [address], 04/26/2018 19:22:59 04/26/20 18 04/26/2018 PT/IN R note Unles s other taylor noted testi ng perfo rmed at: [facility] [address] [place] [address] [phone] Rinku montana MD CLIA: [id number] Not Available [facility] (Lab Registration) [address], [place], [address], 04/26/2018 19:22:59 05/08/20 18 05/08/2018 PT/IN R PT (prothrombin time) 18.7 secon ds 9.33-1 0.37 high Not Available [facility] (Lab Registration) [address], [place], [address], 05/08/2018 13:05:45 05/08/20 18 05/08/2018 PT/IN R INR 1.80 0.9-1. 1 high INR is inten ded to be used only for patie nts on stabl e oral anti- coagu lant thera py. *Ther apeut ic Range s 2.0 - 3.0 Usual Thera peuti c Range 2.5 - 3.5 For patie nts with a histo ry of multi ple deep vein throm bus or mecha nical heart valve s. Not Available [facility] (Lab Registration) [address], [place], [address], 05/08/2018 13:05:45 05/08/20 18 05/08/2018 PT/IN R note Unles s other taylor noted testi ng perfo rmed at: [facility] [address] [place] [address] [phone] Rinku montana MD CLIA: [id number] Not Available [facility] (Lab Registration) [address] [place], [address], 05/08/2018 13:05:45 05/30/20 18 05/30/2018 CBC w/ auto diff WBC 9.03 10 4.5-11 .5 Not Available [facility] (Lab Registration) [address] [place], [address], 05/30/2018 11:31:56 05/30/20 18 05/30/2018 CBC w/ auto diff RBC 4.01 10 4.25-5 .57 low Not Available [facility] (Lab Registration) [address] [place], [address], 05/30/2018 11:31:56 05/30/20 18 05/30/2018 CBC w/ auto diff HGB 10.8 g/dL 12.0-1 5.7 low Not Available [facility] (Lab Registration) [address] [place], [address], 05/30/2018 11:31:56 05/30/20 18 05/30/2018 CBC w/ auto diff HCT 36.1 % 36.0-4 7.0 Not Available [facility] (Lab Registration) [address] [place], [address], 05/30/2018 11:31:56 05/30/20 18 05/30/2018 CBC w/ auto diff MCV 90.0 fL 80-95 Not Available [facility] (Lab Registration) [address] [place], [address], 05/30/2018 11:31:56 05/30/20 18 05/30/2018 CBC w/ auto diff MCH 26.9 pg 27.0-3 4.0 low Not Available [facility] (Lab Registration) [address] [place], [address], 05/30/2018 11:31:56 05/30/20 18 05/30/2018 CBC w/ auto diff MCHC 29.9 g/dL 32.0-3 6.0 low Not Available [facility] (Lab Registration) [address] [place], [address], 05/30/2018 11:31:56 05/30/20 18 05/30/2018 CBC w/ auto diff RDW 18.4 % 12.3-1 5.1 high Not Available [facility] (Lab Registration) [address] [place], [address], 05/30/2018 11:31:56 05/30/20 18 05/30/2018 CBC w/ auto diff platelet count 504 10 150-45 0 high Not Available [facility] (Lab Registration) [address] [place], [address], 05/30/2018 11:31:56 05/30/20 18 05/30/2018 CBC w/ auto diff granulocyte% 42.5 % 40-75 Not Available [facility] (Lab Registration) [address] [place], [address], 05/30/2018 11:31:56 05/30/20 18 05/30/2018 CBC w/ auto diff lymphocyte% 41.5 % 15-57 Not Available [facility] (Lab Registration) [address] [place], [address], 05/30/2018 11:31:56 05/30/20 18 05/30/2018 CBC w/ auto diff monocyte% 9.0 % 4.0-12 .0 Not Available [facility] (Lab Registration) [address] [place], [address], 05/30/2018 11:31:56 05/30/20 18 05/30/2018 CBC w/ auto diff eosinophil% 6.6 % 0.0-4. 0 high Not Available [facility] (Lab Registration) [address] [place], [address], 05/30/2018 11:31:56 05/30/20 18 05/30/2018 CBC w/ auto diff basophil% 0.4 % 0.0-1. 0 Not Available [facility] (Lab Registration) [address] [place], [address], 05/30/2018 11:31:56 05/30/20 18 05/30/2018 CBC w/ auto diff granulocyte# 3.83 10 1.8-8. 62 Not Available [facility] (Lab Registration) [address] [place], [address], 05/30/2018 11:31:56 05/30/20 18 05/30/2018 CBC w/ auto diff lymphocyte# 3.75 10 0.76-5 .40 Not Available [facility] (Lab Registration) [address] [place], [address], 05/30/2018 11:31:56 05/30/20 18 05/30/2018 CBC w/ auto diff monocyte# 0.81 10 0.18-1 .38 Not Available [facility] (Lab Registration) [address] [place], [address], 05/30/2018 11:31:56 05/30/20 18 05/30/2018 CBC w/ auto diff eosinophil# 0.60 10 0.00-0 .46 high Not Available [facility] (Lab Registration) [address] [place], [address], 05/30/2018 11:31:56 05/30/20 18 05/30/2018 CBC w/ auto diff basophil# 0.04 10 0.-0.1 1 Not Available [facility] (Lab Registration) [address], [place], [address], 05/30/2018 11:31:56 05/30/20 18 05/30/2018 CBC w/ auto diff manual differential NO Not Available [facility] (Lab Registration) [address], [place], [address], 05/30/2018 11:31:56 05/30/20 18 05/30/2018 CBC w/ auto diff note Unles s other taylor noted testi ng perfo rmed at: [facility] [address] [place] [address] [phone] Rinku montana MD CLIA: [id number] Not Available [facility] (Lab Registration) [address], [place], [address], 05/30/2018 11:31:56 05/30/20 18 05/30/2018 PT/IN R PT (prothrombin time) 11.1 secon ds 9.33-1 0.37 high Not Available [facility] (Lab Registration) [address], [place], [address], 05/30/2018 11:51:13 05/30/20 18 05/30/2018 PT/IN R INR 1.07 0.9-1. 1 INR is inten ded to be used only for patie nts on stabl e oral anti- coagu lant thera py. *Ther apeut ic Range s 2.0 - 3.0 Usual Thera peuti c Range 2.5 - 3.5 For patie nts with a histo ry of multi ple deep vein throm bus or mecha nical heart valve s. Not Available [facility] (Lab Registration) [address], [place], [address], 05/30/2018 11:51:13 05/30/20 18 05/30/2018 PT/IN R note Unles s other taylor noted testi ng perfo rmed at: [facility] [address] [place] [address] [phone] Rinku montana MD CLIA: [id number] Not Available [facility] (Lab Registration) [address], [place], [address], 05/30/2018 11:51:13 05/30/20 18 05/30/2018 iron + total iron- maureen ng capac ity (TIBC ), serum iron 24 ug/dL 35-150 low Not Available [facility] (Lab Registration) [address], [place], [address], 05/30/2018 12:31:55 05/30/20 18 05/30/2018 iron + total iron- maureen ng capac ity (TIBC ), serum total iron bind cap (TIBC) 450 ug/dL 250-45 0 Not Available [facility] (Lab Registration) [address], [place], [address], 05/30/2018 12:31:55 05/30/20 18 05/30/2018 iron + total iron- maureen ng capac ity (TIBC ), serum % saturation 5 % 15-55 low Not Available [facility] (Lab Registration) [address], [place], [address], 05/30/2018 12:31:55 05/30/20 18 05/30/2018 iron + total iron- maureen ng capac ity (TIBC ), serum note Unles s other taylor noted testi ng perfo rmed at: [facility] [address] [place] [address] [phone] Rinku montana MD CLIA: [id number] Not Available [facility] (Lab Registration) [address] [place], [address], 05/30/2018 12:31:55 05/30/20 18 05/30/2018 dara tin, serum or plasm a ferritin 18 8-388 Not Available [facility] (Lab Registration) [address] [place], [address], 05/30/2018 13:01:48 05/30/20 18 05/30/2018 dara tin, serum or plasm a note Unles s other taylor noted testi ng perfo rmed at: [facility] [address] [place] [address] [id number] [phone] Rinku montana MD CLIA: [id number] Not Available [facility] (Lab Registration) [address] [place], [address], 05/30/2018 13:01:48 05/30/20 18 05/30/2018 folat e, serum folate (folic acid), serum 18.6 NG/mL 8.6-58 .9 Not Available [facility] (Lab Registration) [address] [place], [address], 05/30/2018 15:04:16 05/30/20 18 05/30/2018 folat e, serum note Unles s other taylor noted testi ng perfo rmed at: [facility] [address] [place] [address] [phone] Rinku montana MD CLIA: [id number] Not Available [facility] (Lab Registration) [address] [place], [address], 05/30/2018 15:04:16 05/30/20 18 05/30/2018 methy lmalo sydney acid quant note Unles s other taylor noted testi ng perfo rmed at: [facility] [address] [place] [address] [phone] Rinku montana MD CLIA: [id number] Not Available [facility] (Lab Registration) [address] [place], [address], 06/04/2018 10:16:47 05/30/20 18 06/04/2018 methy lmalo sydney acid quant methylmaloni c acid, serum 310 nmol/ L 0-378 Not Available [facility] (Lab Registration) [address], [place], [address], 06/04/2018 10:16:47 05/30/20 18 06/04/2018 methy lmalo sydney acid quant disclaimer: Jose Enrique t . This test was devel oped and its perfo rmanc e zechariah cteri stics deter mined by [facility]. It has not been clear ed or appro abdirahman by the Food and Drug Admin istra tion. Perfo rmed at: - [facility] [address] [place] [address] 1508 Lab Direc tor: Deng wilson MD, Phone : [phone] Not Available [facility] (Lab Registration) [address], [place], [address], 06/04/2018 10:16:47 11/01/19 19 11/01/2018 influ gavin virus A+B Ag, nasop haryn geal flu A NEGATI VE negati ve Not Available [facility] (Lab Registration) [address], [place], [address], 11/01/2018 07:42:58 11/01/19 19 11/01/2018 influ gavin virus A+B Ag, nasop haryn geal flu B NEGATI VE negati ve Not Available [facility] (Lab Registration) [address] [place], [address], 11/01/2018 07:42:58 11/01/1911/01/2018 influ gavin virus A+B Ag, nasop haryn geal flu lot # [id number] Not Available [facility] (Lab Registration) [address] [place], [address], 11/01/2018 07:42:58 11/01/19 19 11/01/2018 influ gavin virus A+B Ag, nasop haryn geal flu exp date 2.2 020 Not Available [facility] (Lab Registration) [address], [place], [address], 11/01/2018 07:42:58 11/01/19 19 11/01/2018 influ gavin virus A+B Ag, nasop haryn geal internal control PASS PASS Not Available [facility] (Lab Registration) [address], [place], [address], 11/01/2018 07:42:58 11/01/19 19 11/01/2018 influ gavin virus A+B Ag, nasop haryn geal note Unles s other taylor noted testi ng perfo rmed at: [facility] [address] [place] [address] [phone] Rinku montana MD CLIA: [id number] Not Available [facility] (Lab Registration) [address], [place], [address], 11/01/2018 07:42:58 11/01/19 19 11/01/2018 PT/IN R PT (prothrombin time) 15.5 secon ds 9.33-1 0.37 high Not Available [facility] (Lab Registration) [address] [place], [address], 11/01/2018 08:16:09 11/01/1911/01/2018 PT/IN R INR 1.60 0.9-1. 1 high INR is inten ded to be used only for patie nts on stabl e oral anti- coagu lant thera py. *Ther apeut ic Range s 2.0 - 3.0 Usual Thera peuti c Range 2.5 - 3.5 For patie nts with a histo ry of multi ple deep vein throm bus or mecha nical heart valve s. Not Available [facility] (Lab Registration) [address] [place], [address], 11/01/2018 08:16:09 11/01/19 19 11/01/2018 PT/IN R note Unles s other taylor noted testi ng perfo rmed at: [facility] [address] [place] [address] [phone] Rinku montana MD CLIA: [id number] Not Available [facility] (Lab Registration) [address] [place], [address], 11/01/2018 08:16:09 11/01/19 19 11/01/2018 CMP, serum or plasm a sodium 138 mmol/ L 136-14 5 Not Available [facility] (Lab Registration) [address] [place], [address], 11/01/2018 08:17:14 11/01/19 19 11/01/2018 CMP, serum or plasm a potassium 3.2 mmol/ L 3.5-5. 1 low Not Available [facility] (Lab Registration) [address] [place], [address], 11/01/2018 08:17:14 11/01/19 19 11/01/2018 CMP, serum or plasm a chloride 101 mmol/ L 98-107 Not Available [facility] (Lab Registration) [address] [place], [address], 11/01/2018 08:17:14 11/01/19 19 11/01/2018 CMP, serum or plasm a carbon dioxide 28 mmol/ L 21-32 Not Available [facility] (Lab Registration) [address] [place], [address], 11/01/2018 08:17:14 11/01/19 19 11/01/2018 CMP, serum or plasm a anion gap 9.0 Not Available [facility] (Lab Registration) [address] [place], [address], 11/01/2018 08:17:14 11/01/19 19 11/01/2018 CMP, serum or plasm a glucose 219 mg/dL 70-110 high Not Available [facility] (Lab Registration) [address] [place], [address], 11/01/2018 08:17:14 11/01/19 19 11/01/2018 CMP, serum or plasm a blood urea nitrogen 13 mg/dL 7-18 Not Available [facility] (Lab Registration) [address] [place], [address], 11/01/2018 08:17:14 11/01/19 19 11/01/2018 CMP, serum or plasm a creatinine 0.9 mg/dL 0.6-1. 0 Not Available [facility] (Lab Registration) [address] [place], [address], 11/01/2018 08:17:14 11/01/19 19 11/01/2018 CMP, serum or plasm a BUN/creatini ne ratio 14.4 ratio 9-21 Not Available [facility] (Lab Registration) [address] [place], [address], 11/01/2018 08:17:14 11/01/19 19 11/01/2018 CMP, serum or plasm a estimated glom filtration rate 68 mL/mi n >60- Not Available [facility] (Lab Registration) [address] [place], [address], 11/01/2018 08:17:14 11/01/1911/01/2018 CMP, serum or plasm a total protein 7.1 g/dL 6.4-8. 2 Not Available [facility] (Lab Registration) [address] [place], [address], 11/01/2018 08:17:14 11/01/1911/01/2018 CMP, serum or plasm a albumin 3.1 g/dL 3.4-5. 0 low Not Available [facility] (Lab Registration) [address] [place], [address], 11/01/2018 08:17:14 11/01/1911/01/2018 CMP, serum or plasm a calcium 8.4 mg/dL 8.5-10 .1 low Not Available [facility] (Lab Registration) [address] [place], [address], 11/01/2018 08:17:14 11/01/19 19 11/01/2018 CMP, serum or plasm a corrected calcium 9.1 mg/dL 8.5-10 .1 Not Available [facility] (Lab Registration) [address] [place], [address], 11/01/2018 08:17:14 11/01/19 19 11/01/2018 CMP, serum or plasm a bilirubin total 0.1 mg/dL 0.4-1. 5 low Not Available [facility] (Lab Registration) [address] [place], [address], 11/01/2018 08:17:14 11/01/19 19 11/01/2018 CMP, serum or plasm a AST (SGOT) 16 U/L 15-37 Not Available [facility] (Lab Registration) [address] [place], [address], 11/01/2018 08:17:14 11/01/19 19 11/01/2018 CMP, serum or plasm a ALT (SGPT) 13 U/L 12-78 Not Available [facility] (Lab Registration) [address] [place], [address], 11/01/2018 08:17:14 11/01/19 19 11/01/2018 CMP, serum or plasm a alk phosphatase 104 U/L 53-141 Not Available [facility] (Lab Registration) [address] [place], [address], 11/01/2018 08:17:14 11/01/1911/01/2018 CMP, serum or plasm a note Unles s other taylor noted testi ng perfo rmed at: [facility] [address] [place] [address] [phone] Rinku montana MD CLIA: [id number] Not Available [facility] (Lab Registration) [address] [place], [address], 11/01/2018 08:17:14 11/01/19 19 11/01/2018 lacti c acid, blood lactic acid 1.3 mmole /L 0.4-2. 0 Not Available [facility] (Lab Registration) [address] [place], [address], 11/01/2018 08:17:15 11/01/19 19 11/01/2018 lacti c acid, blood note Unles s other taylor noted testi ng perfo rmed at: [facility] [address] [place] [address] [phone] Rinku montana MD CLIA: [id number] Not Available [facility] (Lab Registration) [address] [place], [address], 11/01/2018 08:17:15 11/01/19 19 11/01/2018 tropo olga I, serum or plasm a troponin <0.04 NG/mL 0.0-0. 056 Not Available [facility] (Lab Registration) [address] [place], [address], 11/01/2018 08:19:19 11/01/19 19 11/01/2018 tropo olga I, serum or plasm a note Unles s other taylor noted testi ng perfo rmed at: [facility] [address] [place] [address] [phone] Rinku montana MD CLIA: [id number] Not Available [facility] (Lab Registration) [address] [place], [address], 11/01/2018 08:19:19 11/01/19 19 11/01/2018 pro BNP (pro B-typ e natri ureti c pepti de), serum or plasm a B-type natriuretic peptide BNP 23.5 pg/mL 0.0-10 0 Non-C HF: Less than 100 pg/mL Class I: Great er than 100 pg/mL - Patie nts have no limit ation s of physi rick activ ity and have no sympt oms with ordin emma physi rick activ ity. Class II: Great er than 221 pg/mL - Patie nts have a sligh t limit ation of physi rick activ ity and have sympt oms with ordin emma physi rick activ ity. Class III: Great er than 459 pg/mL - Patie nts have a marke d limit ation of physi rick activ ity and have sympt oms with less than ordin emma physi rick activ ity, but not at rest. Class IV : Great er than 1006 pg/mL -Ambar ents are unabl e to perfo rm any physi rick activ ity witho ut disco mfort . Not Available [facility] (Lab Registration) [address], [place], [address], 11/01/2018 08:22:29 11/01/19 19 11/01/2018 pro BNP (pro B-typ e natri ureti c pepti de), serum or plasm a note Unles s other taylor noted testi ng perfo rmed at: [facility] [address] [place] [address] [phone] Rinku montana MD CLIA: [id number] Not Available [facility] (Lab Registration) [address] [place], [address], 11/01/2018 08:22:29 11/01/19 19 11/01/2018 CBC w/ auto diff WBC 16.0 10 4.5-11 .5 high Not Available [facility] (Lab Registration) [address] [place], [address], 11/01/2018 11:04:36 11/01/19 19 11/01/2018 CBC w/ auto diff RBC 3.92 10 4.25-5 .57 low Not Available [facility] (Lab Registration) [address] [place], [address], 11/01/2018 11:04:36 11/01/19 19 11/01/2018 CBC w/ auto diff HGB 10.4 g/dL 12.0-1 5.7 low Not Available [facility] (Lab Registration) [address] [place], [address], 11/01/2018 11:04:36 11/01/19 19 11/01/2018 CBC w/ auto diff HCT 34.2 % 36.0-4 7.0 low Not Available [facility] (Lab Registration) [address] [place], [address], 11/01/2018 11:04:36 11/01/19 19 11/01/2018 CBC w/ auto diff MCV 87.2 fL 80-95 Not Available [facility] (Lab Registration) [address] [place], [address], 11/01/2018 11:04:36 11/01/19 19 11/01/2018 CBC w/ auto diff MCH 26.5 pg 27.0-3 4.0 low Not Available [facility] (Lab Registration) [address] [place], [address], 11/01/2018 11:04:36 11/01/19 19 11/01/2018 CBC w/ auto diff MCHC 30.4 g/dL 32.0-3 6.0 low Not Available [facility] (Lab Registration) [address] [place], [address], 11/01/2018 11:04:36 11/01/19 19 11/01/2018 CBC w/ auto diff RDW 17.9 % 12.3-1 5.1 high Not Available [facility] (Lab Registration) [address] [place], [address], 11/01/2018 11:04:36 11/01/19 19 11/01/2018 CBC w/ auto diff platelet count 449 10 150-45 0 Not Available [facility] (Lab Registration) [address] [place], [address], 11/01/2018 11:04:36 11/01/19 19 11/01/2018 CBC w/ auto diff MPV 10.6 fL 7.4-10 .4 high Not Available [facility] (Lab Registration) [address] [place], [address], 11/01/2018 11:04:36 11/01/19 19 11/01/2018 CBC w/ auto diff granulocyte% 67.0 % 40-75 Not Available [facility] (Lab Registration) [address] [place], [address], 11/01/2018 11:04:36 11/01/19 19 11/01/2018 CBC w/ auto diff lymphocyte% 17.8 % 15-57 Not Available [facility] (Lab Registration) [address] [place], [address], 11/01/2018 11:04:36 11/01/19 19 11/01/2018 CBC w/ auto diff monocyte% 13.9 % 4.0-12 .0 high Not Available [facility] (Lab Registration) [address] [place], [address], 11/01/2018 11:04:36 11/01/19 19 11/01/2018 CBC w/ auto diff eosinophil% 0.9 % 0.0-4. 0 Not Available [facility] (Lab Registration) [address] [place], [address], 11/01/2018 11:04:36 11/01/19 19 11/01/2018 CBC w/ auto diff basophil% 0.4 % 0.0-1. 0 Not Available [facility] (Lab Registration) [address] [place], [address], 11/01/2018 11:04:36 11/01/19 19 11/01/2018 CBC w/ auto diff granulocyte# 10.71 10 1.8-8. 62 high Not Available [facility] (Lab Registration) [address] [place], [address], 11/01/2018 11:04:36 11/01/19 19 11/01/2018 CBC w/ auto diff lymphocyte# 2.84 10 0.76-5 .40 Not Available [facility] (Lab Registration) [address] [place], [address], 11/01/2018 11:04:36 11/01/19 19 11/01/2018 CBC w/ auto diff monocyte# 2.22 10 0.18-1 .38 high Not Available [facility] (Lab Registration) [address] [place], [address], 11/01/2018 11:04:36 11/01/19 19 11/01/2018 CBC w/ auto diff eosinophil# 0.15 10 0.00-0 .46 Not Available [facility] (Lab Registration) [address] [place], [address], 11/01/2018 11:04:36 11/01/19 19 11/01/2018 CBC w/ auto diff basophil# 0.06 10 0.-0.1 1 Not Available [facility] (Lab Registration) [address] [place], [address], 11/01/2018 11:04:36 11/01/19 19 11/01/2018 CBC w/ auto diff manual differential YES Not Available [facility] (Lab Registration) [address] [place], [address], 11/01/2018 11:04:36 11/01/19 19 11/01/2018 CBC w/ auto diff RBC morphology NORMAL normal Not Available [facility] (Lab Registration) [address] [place], [address], 11/01/2018 11:04:36 11/01/19 19 11/01/2018 CBC w/ auto diff platelet estimate ADEQUA TE adequa te Not Available [facility] (Lab Registration) [address] [place], [address], 11/01/2018 11:04:36 11/01/19 19 11/01/2018 CBC w/ auto diff platelet morphology NORMAL normal Not Available [facility] (Lab Registration) [address] [place], [address], 11/01/2018 11:04:36 11/01/19 19 11/01/2018 CBC w/ auto diff segmented neutrophil 88 % 36-66 high Not Available [facility] (Lab Registration) [address] [place], [address], 11/01/2018 11:04:36 11/01/19 19 11/01/2018 CBC w/ auto diff lymphocyte 3 % 15-41 low Not Available [facility] (Lab Registration) [address] [place], [address], 11/01/2018 11:04:36 11/01/19 19 11/01/2018 CBC w/ auto diff monocyte 8 % 2-9 Not Available [facility] (Lab Registration) [address] [place], [address], 11/01/2018 11:04:36 11/01/19 19 11/01/2018 CBC w/ auto diff atypical lymphocyte 1 % 0-0 high Not Available [facility] (Lab Registration) [address] [place], [address], 11/01/2018 11:04:36 11/01/19 19 11/01/2018 CBC w/ auto diff anisocytosis SLIGHT none seen Not Available [facility] (Lab Registration) [address] [place], [address], 11/01/2018 11:04:36 11/01/19 19 11/01/2018 CBC w/ auto diff hypochromia SLIGHT none seen Not Available [facility] (Lab Registration) [address] [place], [address], 11/01/2018 11:04:36 11/01/19 19 11/01/2018 CBC w/ auto diff note Unles s other taylor noted testi ng perfo rmed at: [facility] [address] [place] [address] [phone] Rinku montana MD CLIA: [id number] Not Available [facility] (Lab Registration) [address] [place], [address], 11/01/2018 11:04:36 11/01/19 19 11/01/2018 urina lysis , compl ete color YELLOW yellow Not Available [facility] (Lab Registration) [address] [place], [address], 11/01/2018 11:07:48 11/01/19 19 11/01/2018 urina lysis , compl ete appearance CLEAR clear Not Available [facility] (Lab Registration) [address] [place], [address], 11/01/2018 11:07:48 11/01/19 19 11/01/2018 urina lysis , compl ete glucose NORMAL normal Not Available [facility] (Lab Registration) [address] [place], [address], 11/01/2018 11:07:48 11/01/19 19 11/01/2018 urina lysis , compl ete bilirubin NEGATI VE negati ve Not Available [facility] (Lab Registration) [address] [place], [address], 11/01/2018 11:07:48 11/01/19 19 11/01/2018 urina lysis , compl ete ketone NEGATI VE mg/dL negati ve Not Available [facility] (Lab Registration) [address] [place], [address], 11/01/2018 11:07:48 11/01/19 19 11/01/2018 urina lysis , compl ete specific gravity 1.015 1.005- 1.035 Not Available [facility] (Lab Registration) [address] [place], [address], 11/01/2018 11:07:48 11/01/19 19 11/01/2018 urina lysis , compl ete blood NEGATI VE /mcL negati ve Not Available [facility] (Lab Registration) [address] [place], [address], 11/01/2018 11:07:48 11/01/19 19 11/01/2018 urina lysis , compl ete pH 5.00 5.0-7. 5 Not Available [facility] (Lab Registration) [address] [place], [address], 11/01/2018 11:07:48 11/01/19 19 11/01/2018 urina lysis , compl ete protein 30 (1+) mg/dL negati ve Not Available [facility] (Lab Registration) [address] [place], [address], 11/01/2018 11:07:48 11/01/19 19 11/01/2018 urina lysis , compl ete urobilnogen NORMAL mg/dL normal Not Available [facility] (Lab Registration) [address] [place], [address], 11/01/2018 11:07:48 11/01/19 19 11/01/2018 urina lysis , compl ete nitrite NEGATI VE negati ve Not Available [facility] (Lab Registration) [address] [place], [address], 11/01/2018 11:07:48 11/01/19 19 11/01/2018 urina lysis , compl ete leukocyte esterase NEGATI VE /mcL negati ve Not Available [facility] (Lab Registration) [address] [place], [address], 11/01/2018 11:07:48 11/01/19 19 11/01/2018 urina lysis , compl ete culture? NOT REQUIR ED Not Available [facility] (Lab Registration) [address] [place], [address], 11/01/2018 11:07:48 11/01/19 19 11/01/2018 urina lysis , compl ete RBC NONE SEEN 0-3 Not Available [facility] (Lab Registration) [address] [place], [address], 11/01/2018 11:07:48 11/01/19 19 11/01/2018 urina lysis , compl ete WBC NONE SEEN none seen Not Available [facility] (Lab Registration) [address] [place], [address], 11/01/2018 11:07:48 11/01/19 19 11/01/2018 urina lysis , compl ete epithelial cell 1-5 none seen Not Available [facility] (Lab Registration) [address] [place], [address], 11/01/2018 11:07:48 11/01/19 19 11/01/2018 urina lysis , compl ete bacteria TRACE none seen Not Available [facility] (Lab Registration) [address] [place], [address], 11/01/2018 11:07:48 11/01/19 19 11/01/2018 urina lysis , compl ete note Unles s other taylor noted testi ng perfo rmed at: [facility] [address] [place] [address] [phone] Rinku montana MD CLIA: [id number] Not Available [facility] (Lab Registration) [address] [place], [address], 11/01/2018 11:07:48 11/01/19 19 11/01/2018 cultu re, blood results KSD 11-04 1938 No growt h 48 hours . LJS 11-06 1350 No growt h 5 days. Not Available [facility] (Lab Registration) [address] [place], [address], 11/06/2018 13:52:54 11/01/19 19 11/01/2018 cultu re, blood note Unles s other taylor noted testi ng perfo rmed at: [facility] [address] [place] [address] [phone] Rinku montana MD CLIA: [id number] Not Available [facility] (Lab Registration) [address] [place], [address], 11/06/2018 13:52:54 11/01/19 19 11/01/2018 cultu re, blood results KSD 11-04 1938 No growt h 48 hours . S 11-06 1350 No growt h 5 days. Not Available [facility] (Lab Registration) [address], [place], [address], 11/06/2018 13:52:55 11/01/19 19 11/01/2018 cultu re, blood note Johnathan chambers other taylor noted testi ng perfo rmed at: [facility] [address] [place] [address] [phone] Rinku montana MD CLIA: [id number] Not Available [facility] (Lab Registration) [address], [place], [address], 11/06/2018 13:52:55 01/02/20 19 01/01/2019 PT/IN R PT (prothrombin time) 10.9 secon ds 9.33-1 0.37 high Not Available [facility] (Lab Registration) [address] [place], [address], 01/01/2019 15:38:38 01/02/20 19 01/01/2019 PT/IN R INR 1.10 0.9-1. 1 INR is inten ded to be used only for patie nts on stabl e oral anti- coagu lant thera py. *Ther apeut ic Range s 2.0 - 3.0 Usual Thera peuti c Range 2.5 - 3.5 For patie nts with a histo ry of multi ple deep vein throm bus or mecha nical heart valve s. Not Available [facility] (Lab Registration) [address], [place], [address], 01/01/2019 15:38:38 01/02/20 19 01/01/2019 PT/IN R note Unles s other taylor noted testi ng perfo rmed at: [facility] [address] [place] [address] [phone] Rinku montana MD CLIA: [id number] Not Available [facility] (Lab Registration) [address] [place], [address], 01/01/2019 15:38:38 01/02/20 19 01/01/2019 activ ated parti al throm bopla stin time, coagu latio n assay , blood PTT (partial thromb time) 21.4 secon ds 24.0-3 2.8 low Not Available [facility] (Lab Registration) [address] [place], [address], 01/01/2019 15:39:45 01/02/20 19 01/01/2019 activ ated parti al throm bopla stin time, coagu latio n assay , blood note Unles s other taylor noted testi ng perfo rmed at: [facility] [address] [place] [address] [phone] Rinku montana MD CLIA: [id number] Not Available [facility] (Lab Registration) [address] [place], [address], 01/01/2019 15:39:45 01/02/20 19 01/01/2019 CMP, serum or plasm a sodium 137 mmol/ L 136-14 5 Not Available [facility] (Lab Registration) [address] [place], [address], 01/01/2019 15:41:55 01/02/20 19 01/01/2019 CMP, serum or plasm a potassium 3.6 mmol/ L 3.5-5. 1 Not Available [facility] (Lab Registration) [address] [place], [address], 01/01/2019 15:41:55 01/02/20 19 01/01/2019 CMP, serum or plasm a chloride 97 mmol/ L 98-107 low Not Available [facility] (Lab Registration) [address] [place], [address], 01/01/2019 15:41:55 01/02/20 19 01/01/2019 CMP, serum or plasm a carbon dioxide 30 mmol/ L 21-32 Not Available [facility] (Lab Registration) [address] [place], [address], 01/01/2019 15:41:55 01/02/20 19 01/01/2019 CMP, serum or plasm a anion gap 10.0 Not Available [facility] (Lab Registration) [address] [place], [address], 01/01/2019 15:41:55 01/02/20 19 01/01/2019 CMP, serum or plasm a glucose 260 mg/dL 70-110 high Not Available [facility] (Lab Registration) [address] [place], [address], 01/01/2019 15:41:55 01/02/20 19 01/01/2019 CMP, serum or plasm a blood urea nitrogen 8 mg/dL 7-18 Not Available [facility] (Lab Registration) [address] [place], [address], 01/01/2019 15:41:55 01/02/20 19 01/01/2019 CMP, serum or plasm a creatinine 0.9 mg/dL 0.6-1. 0 Not Available [facility] (Lab Registration) [address] [place], [address], 01/01/2019 15:41:55 01/02/20 19 01/01/2019 CMP, serum or plasm a BUN/creatini ne ratio 8.9 ratio 9-21 low Not Available [facility] (Lab Registration) [address] [place], [address], 01/01/2019 15:41:55 01/02/20 19 01/01/2019 CMP, serum or plasm a estimated glom filtration rate 68 mL/mi n >60- Not Available [facility] (Lab Registration) [address] [place], [address], 01/01/2019 15:41:55 01/02/20 19 01/01/2019 CMP, serum or plasm a total protein 7.9 g/dL 6.4-8. 2 Not Available [facility] (Lab Registration) [address] [place], [address], 01/01/2019 15:41:55 01/02/20 19 01/01/2019 CMP, serum or plasm a albumin 3.3 g/dL 3.4-5. 0 low Not Available [facility] (Lab Registration) [address], [place], [address], 01/01/2019 15:41:55 01/02/20 19 01/01/2019 CMP, serum or plasm a calcium 8.9 mg/dL 8.5-10 .1 Not Available [facility] (Lab Registration) [address] [place], [address], 01/01/2019 15:41:55 01/02/20 19 01/01/2019 CMP, serum or plasm a corrected calcium 9.5 mg/dL 8.5-10 .1 Not Available [facility] (Lab Registration) [address] [place], [address], 01/01/2019 15:41:55 01/02/20 19 01/01/2019 CMP, serum or plasm a bilirubin total 0.1 mg/dL 0.4-1. 5 low Not Available [facility] (Lab Registration) [address] [place], [address], 01/01/2019 15:41:55 01/02/20 19 01/01/2019 CMP, serum or plasm a AST (SGOT) 18 U/L 15-37 Not Available [facility] (Lab Registration) [address] [place], [address], 01/01/2019 15:41:55 01/02/20 19 01/01/2019 CMP, serum or plasm a ALT (SGPT) 19 U/L 12-78 Not Available [facility] (Lab Registration) [address] [place], [address], 01/01/2019 15:41:55 01/02/20 19 01/01/2019 CMP, serum or plasm a alk phosphatase 115 U/L 53-141 Not Available [facility] (Lab Registration) [address] [place], [address], 01/01/2019 15:41:55 01/02/20 19 01/01/2019 CMP, serum or plasm a note Unles s other taylor noted testi ng perfo rmed at: [facility] [address] [place] [address] [phone] Rinku montana MD CLIA: [id number] Not Available [facility] (Lab Registration) [address] [place], [address], 01/01/2019 15:41:55 01/02/20 19 01/01/2019 magne sium, serum or plasm a magnesium 2.0 mg/dL 1.8-2. 4 Not Available [facility] (Lab Registration) [address] [place], [address], 01/01/2019 15:41:56 01/02/20 19 01/01/2019 magne sium, serum or plasm a note Unles s other taylor noted testi ng perfo rmed at: [facility] [address] [place] [address] [phone] Rinku montana MD CLIA: [id number] Not Available [facility] (Lab Registration) [address] [place], [address], 01/01/2019 15:41:56 01/02/20 19 01/01/2019 lacti c acid, blood lactic acid 2.0 mmole /L 0.4-2. 0 Not Available [facility] (Lab Registration) [address] [place], [address], 01/01/2019 15:46:07 01/02/20 19 01/01/2019 lacti c acid, blood note Unles s other taylor noted testi ng perfo rmed at: [facility] [address] [place] [address] [phone] Rinku montana MD CLIA: [id number] Not Available [facility] (Lab Registration) [address] [place], [address], 01/01/2019 15:46:07 01/02/20 19 01/01/2019 CBC w/ auto diff WBC 14.5 10 4.5-11 .5 high Not Available [facility] (Lab Registration) [address] [place], [address], 01/01/2019 16:01:19 01/02/20 19 01/01/2019 CBC w/ auto diff RBC 4.10 10 4.25-5 .57 low Not Available [facility] (Lab Registration) [address] [place], [address], 01/01/2019 16:01:19 01/02/20 19 01/01/2019 CBC w/ auto diff HGB 10.8 g/dL 12.0-1 5.7 low Not Available [facility] (Lab Registration) [address] [place], [address], 01/01/2019 16:01:19 01/02/20 19 01/01/2019 CBC w/ auto diff HCT 35.2 % 36.0-4 7.0 low Not Available [facility] (Lab Registration) [address] [place], [address], 01/01/2019 16:01:19 01/02/20 19 01/01/2019 CBC w/ auto diff MCV 85.9 fL 80-95 Not Available [facility] (Lab Registration) [address] [place], [address], 01/01/2019 16:01:19 01/02/20 19 01/01/2019 CBC w/ auto diff MCH 26.3 pg 27.0-3 4.0 low Not Available [facility] (Lab Registration) [address] [place], [address], 01/01/2019 16:01:19 01/02/20 19 01/01/2019 CBC w/ auto diff MCHC 30.7 g/dL 32.0-3 6.0 low Not Available [facility] (Lab Registration) [address] [place], [address], 01/01/2019 16:01:19 01/02/20 19 01/01/2019 CBC w/ auto diff RDW 16.6 % 12.3-1 5.1 high Not Available [facility] (Lab Registration) [address] [place], [address], 01/01/2019 16:01:19 01/02/20 19 01/01/2019 CBC w/ auto diff platelet count 486 10 150-45 0 high Not Available [facility] (Lab Registration) [address] [place], [address], 01/01/2019 16:01:19 01/02/20 19 01/01/2019 CBC w/ auto diff MPV 10.3 fL 7.4-10 .4 Not Available [facility] (Lab Registration) [address] [place], [address], 01/01/2019 16:01:19 01/02/20 19 01/01/2019 CBC w/ auto diff granulocyte% 51.7 % 40-75 Not Available [facility] (Lab Registration) [address], [place], [address], 01/01/2019 16:01:19 01/02/20 19 01/01/2019 CBC w/ auto diff lymphocyte% 36.4 % 15-57 Not Available [facility] (Lab Registration) [address], [place], [address], 01/01/2019 16:01:19 01/02/20 19 01/01/2019 CBC w/ auto diff monocyte% 9.7 % 4.0-12 .0 Not Available [facility] (Lab Registration) [address], [place], [address], 01/01/2019 16:01:19 01/02/20 19 01/01/2019 CBC w/ auto diff eosinophil% 1.9 % 0.0-4. 0 Not Available [facility] (Lab Registration) [address] [place], [address], 01/01/2019 16:01:19 01/02/20 19 01/01/2019 CBC w/ auto diff basophil% 0.3 % 0.0-1. 0 Not Available [facility] (Lab Registration) [address] [place], [address], 01/01/2019 16:01:19 01/02/20 19 01/01/2019 CBC w/ auto diff granulocyte# 7.50 10 1.8-8. 62 Not Available [facility] (Lab Registration) [address] [place], [address], 01/01/2019 16:01:19 01/02/20 19 01/01/2019 CBC w/ auto diff lymphocyte# 5.27 10 0.76-5 .40 Not Available [facility] (Lab Registration) [address] [place], [address], 01/01/2019 16:01:19 01/02/20 19 01/01/2019 CBC w/ auto diff monocyte# 1.40 10 0.18-1 .38 high Not Available [facility] (Lab Registration) [address] [place], [address], 01/01/2019 16:01:19 01/02/20 19 01/01/2019 CBC w/ auto diff eosinophil# 0.28 10 0.00-0 .46 Not Available [facility] (Lab Registration) [address] [place], [address], 01/01/2019 16:01:19 01/02/20 19 01/01/2019 CBC w/ auto diff basophil# 0.04 10 0.-0.1 1 Not Available [facility] (Lab Registration) [address] [place], [address], 01/01/2019 16:01:19 01/02/20 19 01/01/2019 CBC w/ auto diff manual differential YES Not Available [facility] (Lab Registration) [address] [place], [address], 01/01/2019 16:01:19 01/02/20 19 01/01/2019 CBC w/ auto diff segmented neutrophil 47 % 36-66 Not Available [facility] (Lab Registration) [address] [place], [address], 01/01/2019 16:01:19 01/02/20 19 01/01/2019 CBC w/ auto diff lymphocyte 32 % 15-41 Not Available [facility] (Lab Registration) [address] [place], [address], 01/01/2019 16:01:19 01/02/2001/01/2019 CBC w/ auto diff monocyte 9 % 2-9 Not Available [facility] (Lab Registration) [address] [place], [address], 01/01/2019 16:01:19 01/02/20 19 01/01/2019 CBC w/ auto diff eosinophil 2 % 0-3 Not Available [facility] (Lab Registration) [address] [place], [address], 01/01/2019 16:01:19 01/02/20 19 01/01/2019 CBC w/ auto diff atypical lymphocyte 10 % 0-0 high Not Available [facility] (Lab Registration) [address] [place], [address], 01/01/2019 16:01:19 01/02/20 19 01/01/2019 CBC w/ auto diff anisocytosis SLIGHT none seen Not Available [facility] (Lab Registration) [address] [place], [address], 01/01/2019 16:01:19 01/02/20 19 01/01/2019 CBC w/ auto diff poikilocytos is 1+ none seen Not Available [facility] (Lab Registration) [address] [place], [address], 01/01/2019 16:01:19 01/02/20 19 01/01/2019 CBC w/ auto diff hypochromia 1+ none seen Not Available [facility] (Lab Registration) [address] [place], [address], 01/01/2019 16:01:19 01/02/20 19 01/01/2019 CBC w/ auto diff note Unles s other taylor noted testi ng perfo rmed at: [facility] [address] [place] [address] [phone] Rinku montana MD CLIA: [id number] Not Available [facility] (Lab Registration) [address] [place], [address], 01/01/2019 16:01:19 01/02/20 19 01/01/2019 urina lysis , compl ete color YELLOW yellow Not Available [facility] (Lab Registration) [address] [place], [address], 01/01/2019 17:00:50 01/02/20 19 01/01/2019 urina lysis , compl ete appearance CLEAR clear Not Available [facility] (Lab Registration) [address] [place], [address], 01/01/2019 17:00:50 01/02/20 19 01/01/2019 urina lysis , compl ete glucose 100 normal Not Available [facility] (Lab Registration) [address] [place], [address], 01/01/2019 17:00:50 01/02/20 19 01/01/2019 urina lysis , compl ete bilirubin NEGATI VE negati ve Not Available [facility] (Lab Registration) [address] [place], [address], 01/01/2019 17:00:50 01/02/20 19 01/01/2019 urina lysis , compl ete ketone NEGATI VE mg/dL negati ve Not Available [facility] (Lab Registration) [address] [place], [address], 01/01/2019 17:00:50 01/02/20 19 01/01/2019 urina lysis , compl ete specific gravity 1.010 1.005- 1.035 Not Available [facility] (Lab Registration) [address] [place], [address], 01/01/2019 17:00:50 01/02/20 19 01/01/2019 urina lysis , compl ete blood NEGATI VE /mcL negati ve Not Available [facility] (Lab Registration) [address] [place], [address], 01/01/2019 17:00:50 01/02/20 19 01/01/2019 urina lysis , compl ete pH 6.00 5.0-7. 5 Not Available [facility] (Lab Registration) [address] [place], [address], 01/01/2019 17:00:50 01/02/20 19 01/01/2019 urina lysis , compl ete protein 15 (TRACE ) mg/dL negati ve Not Available [facility] (Lab Registration) [address] [place], [address], 01/01/2019 17:00:50 01/02/20 19 01/01/2019 urina lysis , compl ete urobilnogen NORMAL mg/dL normal Not Available [facility] (Lab Registration) [address] [place], [address], 01/01/2019 17:00:50 01/02/20 19 01/01/2019 urina lysis , compl ete nitrite NEGATI VE negati ve Not Available [facility] (Lab Registration) [address] [place], [address], 01/01/2019 17:00:50 01/02/20 19 01/01/2019 urina lysis , compl ete leukocyte esterase TRACE (25) /mcL negati ve Not Available [facility] (Lab Registration) [address] [place], [address], 01/01/2019 17:00:50 01/02/20 19 01/01/2019 urina lysis , compl ete culture? NOT REQUIR ED Not Available [facility] (Lab Registration) [address] [place], [address], 01/01/2019 17:00:50 01/02/20 19 01/01/2019 urina lysis , compl ete urine microscopic YES Not Available [facility] (Lab Registration) [address] [place], [address], 01/01/2019 17:00:50 01/02/20 19 01/01/2019 urina lysis , compl ete RBC NONE SEEN 0-3 Not Available [facility] (Lab Registration) [address] [place], [address], 01/01/2019 17:00:50 01/02/20 19 01/01/2019 urina lysis , compl ete WBC OCCASI ONAL none seen Not Available [facility] (Lab Registration) [address] [place], [address], 01/01/2019 17:00:50 01/02/20 19 01/01/2019 urina lysis , compl ete epithelial cell RARE none seen Not Available [facility] (Lab Registration) [address], [place], [address], 01/01/2019 17:00:50 01/02/20 19 01/01/2019 urina lysis , compl ete bacteria NONE SEEN none seen Not Available [facility] (Lab Registration) [address] [place], [address], 01/01/2019 17:00:50 01/02/20 19 01/01/2019 urina lysis , compl ete note Unles s other taylor noted testi ng perfo rmed at: [facility] [address] [place] [address] [phone] Rinku montana MD CLIA: [id number] Not Available [facility] (Lab Registration) [address], [place], [address], 01/01/2019 17:00:50 01/02/20 19 01/01/2019 pro BNP (pro B-typ e natri ureti c pepti de), serum or plasm a B-type natriuretic peptide BNP 6.1 pg/mL 0.0-10 0 Non-C HF: Less than 100 pg/mL Class I: Great er than 100 pg/mL - Patie nts have no limit ation s of physi rick activ ity and have no sympt oms with ordin emma physi rick activ ity. Class II: Great er than 221 pg/mL - Patie nts have a sligh t limit ation of physi rick activ ity and have sympt oms with ordin emma physi rick activ ity. Class III: Great er than 459 pg/mL - Patie nts have a marke d limit ation of physi rick activ ity and have sympt oms with less than ordin emma physi rick activ ity, but not at rest. Class IV : Great er than 1006 pg/mL -Ambar ents are unabl e to perfo rm any physi rick activ ity witho ut disco mfort . Not Available [facility] (Lab Registration) [address] [place], [address], 01/01/2019 17:29:42 01/02/20 19 01/01/2019 pro BNP (pro B-typ e natri ureti c pepti de), serum or plasm a note Unles s other taylor noted testi ng perfo rmed at: [facility] [address] [place] [address] [phone] Rinku montana MD CLIA: [id number] Not Available [facility] (Lab Registration) [address] [place], [address], 01/01/2019 17:29:42 01/02/20 19 01/01/2019 gas panel , arter ial blood specimen source ARTERI AL Not Available [facility] (Lab Registration) [address] [place], [address], 01/01/2019 18:21:47 01/02/20 19 01/01/2019 gas panel , arter ial blood chuck's test NO Not Available [facility] (Lab Registration) [address] [place], [address], 01/01/2019 18:21:47 01/02/20 19 01/01/2019 gas panel , arter ial blood ABG site LEFT BRACHI AL Not Available [facility] (Lab Registration) [address] [place], [address], 01/01/2019 18:21:47 01/02/20 19 01/01/2019 gas panel , arter ial blood arterial pH 7.380 7.35-7 .45 Not Available [facility] (Lab Registration) [address] [place], [address], 01/01/2019 18:21:47 01/02/20 19 01/01/2019 gas panel , arter ial blood ABG partial pressure CO2 57 mmHg 35-45 high Not Available [facility] (Lab Registration) [address] [place], [address], 01/01/2019 18:21:47 01/02/20 19 01/01/2019 gas panel , arter ial blood ABG partial pressure O2 44.0 mmHg 80-100 critical low Not Available [facility] (Lab Registration) [address] [place], [address], 01/01/2019 18:21:47 01/02/20 19 01/01/2019 gas panel , arter ial blood ABG bicarbonate 29.9 mEq/L 21-25 high Not Available [facility] (Lab Registration) [address] [place], [address], 01/01/2019 18:21:47 01/02/20 19 01/01/2019 gas panel , arter ial blood ABG base excess 6.9 Not Available [facility] (Lab Registration) [address] [place], [address], 01/01/2019 18:21:47 01/02/20 19 01/01/2019 gas panel , arter ial blood ABG O2 saturation 79 % Not Available [facility] (Lab Registration) [address] [place], [address], 01/01/2019 18:21:47 01/02/20 19 01/01/2019 gas panel , arter ial blood ABG fract of inspired O2 21 % Not Available [facility] (Lab Registration) [address] [place], [address], 01/01/2019 18:21:47 01/02/20 19 01/01/2019 gas panel , arter ial blood ABG delivery O2 mode ROOM AIR Not Available [facility] (Lab Registration) [address] [place], [address], 01/01/2019 18:21:47 01/02/20 19 01/01/2019 gas panel , arter ial blood ABG temperature 37.0 Not Available [facility] (Lab Registration) [address] [place], [address], 01/01/2019 18:21:47 01/02/20 19 01/01/2019 gas panel , arter ial blood note Unles s other taylor noted testi ng perfo rmed at: [facility] [address] [place] [address] [phone] Rinku montana MD CLIA: [id number] Not Available [facility] (Lab Registration) [address], [place], [address], 01/01/2019 18:21:47 01/02/20 19 01/01/2019 tropo olga I, serum or plasm a troponin <0.04 NG/mL 0.0-0. 056 Not Available [facility] (Lab Registration) [address], [place], [address], 01/01/2019 18:51:21 01/02/20 19 01/01/2019 tropo olga I, serum or plasm a note Unles s other taylor noted testi ng perfo rmed at: [facility] [address] [place] [address] [phone] Rinuk montana MD CLIA: [id number] Not Available [facility] (Lab Registration) [address], [place], [address], 01/01/2019 18:51:21 01/02/20 19 01/01/2019 tropo olga I, serum or plasm a troponin <0.04 NG/mL 0.0-0. 056 Not Available [facility] (Lab Registration) [address] [place], [address], 01/01/2019 20:27:36 01/02/20 19 01/01/2019 tropo olga I, serum or plasm a note Unles s other taylor noted testi ng perfo rmed at: [facility] [address] [place], [place] [id number] [phone] Rinku montana MD CLIA: [id number] Not Available [facility] (Lab Registration) [address] [place], [address], 01/01/2019 20:27:36 01/02/20 19 01/01/2019 PT/IN R PT (prothrombin time) 12.1 secon ds 9.33-1 0.37 high Not Available [facility] (Lab Registration) [address], [place], [address], 01/01/2019 21:38:28 01/02/20 19 01/01/2019 PT/IN R INR 1.23 0.9-1. 1 high INR is inten ded to be used only for patie nts on stabl e oral anti- coagu lant thera py. *Ther apeut ic Range s 2.0 - 3.0 Usual Thera peuti c Range 2.5 - 3.5 For patie nts with a histo ry of multi ple deep vein throm bus or mecha nical heart valve s. Not Available [facility] (Lab Registration) [address], [place], [address], 01/01/2019 21:38:28 01/02/20 19 01/01/2019 PT/IN R note Unles s other taylor noted testi ng perfo rmed at: [facility] [place] [address] [phone] Rinku montana MD CLIA: [id number] Not Available [facility] (Lab Registration) [address], [place], [address], 01/01/2019 21:38:28 01/02/20 19 01/01/2019 cultu re, blood results [facility] 01-02 1025 NO GROWT H AT OVERN IGHT INCUB ATION [facility] 01-03 1319 No growt h 48 hours . [facility] 01-07 1145 No growt h 5 days. Not Available [facility] (Lab Registration) [address], [place], [address], 01/07/2019 12:42:34 01/02/20 19 01/01/2019 cultu re, blood note Unles s other taylor noted testi ng perfo rmed at: [facility] [address] [place], [place] [id number] [phone] Rinku montana MD CLIA: [id number] Not Available [facility] (Lab Registration) [address] [place], [address], 01/07/2019 12:42:34 01/02/20 19 01/01/2019 cultu re, blood results [facility] 01-02 1024 NO GROWT H AT OVERN IGHT INCUB ATION [facility] 01-03 1319 No growt h 48 hours . [facility] 01-07 1145 No growt h 5 days. Not Available [facility] (Lab Registration) [address] [place], [address], 01/07/2019 12:42:35 01/02/20 19 01/01/2019 cultu re, blood note Unles s other taylor noted testi ng perfo rmed at: [facility] [address] [place] [address] [phone] Rinku montana MD CLIA: [id number] Not Available [facility] (Lab Registration) [address] [place], [address], 01/07/2019 12:42:35 01/03/20 19 01/02/2019 tropo olga I, serum or plasm a troponin <0.04 NG/mL 0.0-0. 056 Not Available [facility] (Lab Registration) [address] [place], [address], 01/02/2019 02:37:54 01/03/20 19 01/02/2019 tropo olga I, serum or plasm a note Unles s other taylor noted testi ng perfo rmed at: [facility] [address] [place], [place] [id number] [phone] Rinku montana MD CLIA: [id number] Not Available [facility] (Lab Registration) [address] [place], [address], 01/02/2019 02:37:54 01/03/20 19 01/02/2019 BMP, serum or plasm a sodium 138 mmol/ L 136-14 5 Not Available [facility] (Lab Registration) [address] [place], [address], 01/02/2019 06:40:27 01/03/20 19 01/02/2019 BMP, serum or plasm a potassium 4.0 mmol/ L 3.5-5. 1 Not Available [facility] (Lab Registration) [address] [place], [address], 01/02/2019 06:40:27 01/03/20 19 01/02/2019 BMP, serum or plasm a chloride 102 mmol/ L 98-107 Not Available [facility] (Lab Registration) [address] [place], [address], 01/02/2019 06:40:27 01/03/20 19 01/02/2019 BMP, serum or plasm a carbon dioxide 33 mmol/ L 21-32 high Not Available [facility] (Lab Registration) [address] [place], [address], 01/02/2019 06:40:27 01/03/20 19 01/02/2019 BMP, serum or plasm a anion gap 3.0 Not Available [facility] (Lab Registration) [address] [place], [address], 01/02/2019 06:40:27 01/03/20 19 01/02/2019 BMP, serum or plasm a glucose 230 mg/dL 70-110 high Not Available [facility] (Lab Registration) [address] [place], [address], 01/02/2019 06:40:27 01/03/20 19 01/02/2019 BMP, serum or plasm a blood urea nitrogen 10 mg/dL 7-18 Not Available [facility] (Lab Registration) [address] [place], [address], 01/02/2019 06:40:27 01/03/20 19 01/02/2019 BMP, serum or plasm a creatinine 0.8 mg/dL 0.6-1. 0 Not Available [facility] (Lab Registration) [address] [place], [address], 01/02/2019 06:40:27 01/03/20 19 01/02/2019 BMP, serum or plasm a BUN/creatini ne ratio 12.5 ratio 9-21 Not Available [facility] (Lab Registration) [address] [place], [address], 01/02/2019 06:40:27 01/03/20 19 01/02/2019 BMP, serum or plasm a estimated glom filtration rate 78 mL/mi n >60- Not Available [facility] (Lab Registration) [address] [place], [address], 01/02/2019 06:40:27 01/03/20 19 01/02/2019 BMP, serum or plasm a calcium 8.7 mg/dL 8.5-10 .1 Not Available [facility] (Lab Registration) [address] [place], [address], 01/02/2019 06:40:27 01/03/20 19 01/02/2019 BMP, serum or plasm a note Unles s other taylor noted testi ng perfo rmed at: [facility] [address] [place] [address] [phone] Rinku montana MD CLIA: [id number] Not Available [facility] (Lab Registration) [address] [place], [address], 01/02/2019 06:40:27 01/03/20 19 01/02/2019 TSH, serum or plasm a thyroid stimulating hormone 0.58 mIU/m L 0.34-4 .80 Not Available [facility] (Lab Registration) [address] [place], [address], 01/02/2019 06:40:28 01/03/20 19 01/02/2019 TSH, serum or plasm a note Unles s other taylor noted testi ng perfo rmed at: [facility] [address] [place] [phone] Rinku montana MD CLIA: [id number] Not Available [facility] (Lab Registration) [address] [place], [address], 01/02/2019 06:40:28 01/03/20 19 01/02/2019 magne sium, serum or plasm a magnesium 2.1 mg/dL 1.8-2. 4 Not Available [facility] (Lab Registration) [address] [place], [address], 01/02/2019 06:40:35 01/03/20 19 01/02/2019 magne sium, serum or plasm a note Unles s other taylor noted testi ng perfo rmed at: [facility] [address] [place], [place] [id number] [phone] Rinku montana MD CLIA: [id number] Not Available [facility] (Lab Registration) [address] [place], [address], 01/02/2019 06:40:35 01/03/20 19 01/02/2019 phosp horus , serum or plasm a phosphorus 2.7 mg/dL 2.5-4. 9 Not Available [facility] (Lab Registration) [address] [place], [address], 01/02/2019 06:40:36 01/03/20 19 01/02/2019 phosp horus , serum or plasm a note Unles s other taylor noted testi ng perfo rmed at: [facility] [address] [place] [address] [phone] Rinku montana MD CLIA: [id number] Not Available [facility] (Lab Registration) [address] [place], [address], 01/02/2019 06:40:36 01/03/20 19 01/02/2019 PT/IN R PT (prothrombin time) 11.8 secon ds 9.33-1 0.37 high Not Available [facility] (Lab Registration) [address] [place], [address], 01/02/2019 06:40:36 01/03/20 19 01/02/2019 PT/IN R INR 1.20 0.9-1. 1 high INR is inten ded to be used only for patie nts on stabl e oral anti- coagu lant thera py. *Ther apeut ic Range s 2.0 - 3.0 Usual Thera peuti c Range 2.5 - 3.5 For patie nts with a histo ry of multi ple deep vein throm bus or mecha nical heart valve s. Not Available [facility] (Lab Registration) [address] [place], [address], 01/02/2019 06:40:36 01/03/20 19 01/02/2019 PT/IN R note Unles s other taylor noted testi ng perfo rmed at: [facility] [address] [place] [address] [phone] Rinku montana MD CLIA: [id number] Not Available [facility] (Lab Registration) [address] [place], [address], 01/02/2019 06:40:36 01/03/20 19 01/02/2019 influ gavin virus A+B Ag, nasop haryn geal flu A NEGATI VE negati ve Not Available [facility] (Lab Registration) [address] [place], [address], 01/02/2019 07:32:11 01/03/20 19 01/02/2019 influ gavin virus A+B Ag, nasop haryn geal flu B NEGATI VE negati ve Not Available [facility] (Lab Registration) [address] [place], [address], 01/02/2019 07:32:11 01/03/20 19 01/02/2019 influ gavin virus A+B Ag, nasop haryn geal flu lot # [id number] Not Available [facility] (Lab Registration) [address] [place], [address], 01/02/2019 07:32:11 01/03/20 19 01/02/2019 influ gavin virus A+B Ag, nasop haryn geal flu exp date 2.2 020 Not Available [facility] (Lab Registration) [address] [place], [address], 01/02/2019 07:32:11 01/03/20 19 01/02/2019 influ gavin virus A+B Ag, nasop haryn geal internal control PASS PASS Not Available [facility] (Lab Registration) [address] [place], [address], 01/02/2019 07:32:11 01/03/20 19 01/02/2019 influ gavin virus A+B Ag, nasop haryn geal note Unles s other taylor noted testi ng perfo rmed at: [facility] [place] [address] [phone] Rinku montana MD CLIA: [id number] Not Available [facility] (Lab Registration) [address] [place], [address], 01/02/2019 07:32:11 01/03/20 19 01/02/2019 CBC w/ auto diff WBC 11.6 10 4.5-11 .5 high Not Available [facility] (Lab Registration) [address] [place], [address], 01/02/2019 09:05:02 01/03/20 19 01/02/2019 CBC w/ auto diff RBC 3.96 10 4.25-5 .57 low Not Available [facility] (Lab Registration) [address] [place], [address], 01/02/2019 09:05:02 01/03/20 19 01/02/2019 CBC w/ auto diff HGB 10.3 g/dL 12.0-1 5.7 low Not Available [facility] (Lab Registration) [address] [place], [address], 01/02/2019 09:05:02 01/03/20 19 01/02/2019 CBC w/ auto diff HCT 33.7 % 36.0-4 7.0 low Not Available [facility] (Lab Registration) [address] [place], [address], 01/02/2019 09:05:02 01/03/20 19 01/02/2019 CBC w/ auto diff MCV 85.1 fL 80-95 Not Available [facility] (Lab Registration) [address] [place], [address], 01/02/2019 09:05:02 01/03/20 19 01/02/2019 CBC w/ auto diff MCH 26.0 pg 27.0-3 4.0 low Not Available [facility] (Lab Registration) [address] [place], [address], 01/02/2019 09:05:02 01/03/20 19 01/02/2019 CBC w/ auto diff MCHC 30.6 g/dL 32.0-3 6.0 low Not Available [facility] (Lab Registration) [address] [place], [address], 01/02/2019 09:05:02 01/03/20 19 01/02/2019 CBC w/ auto diff RDW 16.6 % 12.3-1 5.1 high Not Available [facility] (Lab Registration) [address] [place], [address], 01/02/2019 09:05:02 01/03/20 19 01/02/2019 CBC w/ auto diff platelet count 486 10 150-45 0 high Not Available [facility] (Lab Registration) [address] [place], [address], 01/02/2019 09:05:02 01/03/20 19 01/02/2019 CBC w/ auto diff MPV 10.5 fL 7.4-10 .4 high Not Available [facility] (Lab Registration) [address] [place], [address], 01/02/2019 09:05:02 01/03/20 19 01/02/2019 CBC w/ auto diff granulocyte% 79.8 % 40-75 high Not Available [facility] (Lab Registration) [address] [place], [address], 01/02/2019 09:05:02 01/03/20 19 01/02/2019 CBC w/ auto diff lymphocyte% 17.9 % 15-57 Not Available [facility] (Lab Registration) [address] [place], [address], 01/02/2019 09:05:02 01/03/20 19 01/02/2019 CBC w/ auto diff monocyte% 2.0 % 4.0-12 .0 low Not Available [facility] (Lab Registration) [address] [place], [address], 01/02/2019 09:05:02 01/03/20 19 01/02/2019 CBC w/ auto diff eosinophil% 0.2 % 0.0-4. 0 Not Available [facility] (Lab Registration) [address] [place], [address], 01/02/2019 09:05:02 01/03/20 19 01/02/2019 CBC w/ auto diff basophil% 0.1 % 0.0-1. 0 Not Available [facility] (Lab Registration) [address] [place], [address], 01/02/2019 09:05:02 01/03/20 19 01/02/2019 CBC w/ auto diff granulocyte# 9.27 10 1.8-8. 62 high Not Available [facility] (Lab Registration) [address] [place], [address], 01/02/2019 09:05:02 01/03/20 19 01/02/2019 CBC w/ auto diff lymphocyte# 2.08 10 0.76-5 .40 Not Available [facility] (Lab Registration) [address] [place], [address], 01/02/2019 09:05:02 01/03/20 19 01/02/2019 CBC w/ auto diff monocyte# 0.23 10 0.18-1 .38 Not Available [facility] (Lab Registration) [address] [place], [address], 01/02/2019 09:05:02 01/03/20 19 01/02/2019 CBC w/ auto diff eosinophil# 0.02 10 0.00-0 .46 Not Available [facility] (Lab Registration) [address] [place], [address], 01/02/2019 09:05:02 01/03/20 19 01/02/2019 CBC w/ auto diff basophil# 0.01 10 0.-0.1 1 Not Available [facility] (Lab Registration) [address] [place], [address], 01/02/2019 09:05:02 01/03/20 19 01/02/2019 CBC w/ auto diff manual differential YES Not Available [facility] (Lab Registration) [address] [place], [address], 01/02/2019 09:05:02 01/03/20 19 01/02/2019 CBC w/ auto diff segmented neutrophil 90 % 36-66 high Not Available [facility] (Lab Registration) [address] [place], [address], 01/02/2019 09:05:02 01/03/20 19 01/02/2019 CBC w/ auto diff lymphocyte 7 % 15-41 low Not Available [facility] (Lab Registration) [address] [place], [address], 01/02/2019 09:05:02 01/03/20 19 01/02/2019 CBC w/ auto diff monocyte 1 % 2-9 low Not Available [facility] (Lab Registration) [address] [place], [address], 01/02/2019 09:05:02 01/03/20 19 01/02/2019 CBC w/ auto diff atypical lymphocyte 2 % 0-0 high Not Available [facility] (Lab Registration) [address] [place], [address], 01/02/2019 09:05:02 01/03/20 19 01/02/2019 CBC w/ auto diff anisocytosis 1+ none seen Not Available [facility] (Lab Registration) [address] [place], [address], 01/02/2019 09:05:02 01/03/20 19 01/02/2019 CBC w/ auto diff poikilocytos is 1+ none seen Not Available [facility] (Lab Registration) [address] [place], [address], 01/02/2019 09:05:02 01/03/20 19 01/02/2019 CBC w/ auto diff hypochromia 1+ none seen Not Available [facility] (Lab Registration) [address] [place], [address], 01/02/2019 09:05:02 01/03/20 19 01/02/2019 CBC w/ auto diff basophilic stippling 1+ none seen Not Available [facility] (Lab Registration) [address] [place], [address], 01/02/2019 09:05:02 03/21/01/02/2019 CBC w/ auto diff crenated RBC's 1+ none seen Not Available [facility] (Lab Registration) [address], [place], [address], 01/02/2019 09:05:02 01/03/20 19 01/02/2019 CBC w/ auto diff note Unles s other taylor noted testi ng perfo rmed at: [facility] [address] [place] [address] [phone] Rinku montana MD CLIA: [id number] Not Available [facility] (Lab Registration) [address] [place], [address], 01/02/2019 09:05:02 01/03/20 19 01/02/2019 tropo olga I, serum or plasm a troponin <0.04 NG/mL 0.0-0. 056 Not Available [facility] (Lab Registration) [address] [place], [address], 01/02/2019 14:34:50 01/03/20 19 01/02/2019 tropo olga I, serum or plasm a note Unles s other taylor noted testi ng perfo rmed at: [facility] [address] [place] [phone] Rinku montana MD CLIA: [id number] Not Available [facility] (Lab Registration) [address] [place], [address], 01/02/2019 14:34:50 01/04/20 19 01/03/2019 PT/IN R PT (prothrombin time) 14.1 secon ds 9.33-1 0.37 high Not Available [facility] (Lab Registration) [address] [place], [address], 01/03/2019 07:41:43 01/04/20 19 01/03/2019 PT/IN R INR 1.44 0.9-1. 1 high INR is inten ded to be used only for patie nts on stabl e oral anti- coagu lant thera py. *Ther apeut ic Range s 2.0 - 3.0 Usual Thera peuti c Range 2.5 - 3.5 For patie nts with a histo ry of multi ple deep vein throm bus or mecha nical heart valve s. Not Available [facility] (Lab Registration) [address] [place], [address], 01/03/2019 07:41:43 01/04/20 19 01/03/2019 PT/IN R note Unles s other taylor noted testi ng perfo rmed at: [facility] [address] [place] [address] [phone] Rinku montana MD CLIA: [id number] Not Available [facility] (Lab Registration) [address] [place], [address], 01/03/2019 07:41:43 01/04/20 19 01/03/2019 BMP, serum or plasm a sodium 138 mmol/ L 136-14 5 Not Available [facility] (Lab Registration) [address] [place], [address], 01/03/2019 08:03:00 01/04/20 19 01/03/2019 BMP, serum or plasm a potassium 4.0 mmol/ L 3.5-5. 1 Not Available [facility] (Lab Registration) [address] [place], [address], 01/03/2019 08:03:00 01/04/20 19 01/03/2019 BMP, serum or plasm a chloride 103 mmol/ L 98-107 Not Available [facility] (Lab Registration) [address] [place], [address], 01/03/2019 08:03:00 01/04/20 19 01/03/2019 BMP, serum or plasm a carbon dioxide 30 mmol/ L 21-32 Not Available [facility] (Lab Registration) [address] [place], [address], 01/03/2019 08:03:00 01/04/20 19 01/03/2019 BMP, serum or plasm a anion gap 5.0 Not Available [facility] (Lab Registration) [address] [place], [address], 01/03/2019 08:03:00 01/04/20 19 01/03/2019 BMP, serum or plasm a glucose 256 mg/dL 70-110 high Not Available [facility] (Lab Registration) [address] [place], [address], 01/03/2019 08:03:00 01/04/20 19 01/03/2019 BMP, serum or plasm a blood urea nitrogen 12 mg/dL 7-18 Not Available [facility] (Lab Registration) [address] [place], [address], 01/03/2019 08:03:00 01/04/20 19 01/03/2019 BMP, serum or plasm a creatinine 0.8 mg/dL 0.6-1. 0 Not Available [facility] (Lab Registration) [address] [place], [address], 01/03/2019 08:03:00 01/04/20 19 01/03/2019 BMP, serum or plasm a BUN/creatini ne ratio 15.0 ratio 9-21 Not Available [facility] (Lab Registration) [address] [place], [address], 01/03/2019 08:03:00 01/04/20 19 01/03/2019 BMP, serum or plasm a estimated glom filtration rate 78 mL/mi n >60- Not Available [facility] (Lab Registration) [address] [place], [address], 01/03/2019 08:03:00 01/04/20 19 01/03/2019 BMP, serum or plasm a calcium 9.4 mg/dL 8.5-10 .1 Not Available [facility] (Lab Registration) [address] [place], [address], 01/03/2019 08:03:00 01/04/20 19 01/03/2019 BMP, serum or plasm a note Unles s other taylor noted testi ng perfo rmed at: [facility] [address] [place] [address] [phone] Rinku montana MD CLIA: [id number] Not Available [facility] (Lab Registration) [address] [place], [address], 01/03/2019 08:03:00 01/04/20 19 01/03/2019 CBC w/ auto diff WBC 21.5 10 4.5-11 .5 high Not Available [facility] (Lab Registration) [address] [place], [address], 01/03/2019 08:06:14 01/04/20 19 01/03/2019 CBC w/ auto diff RBC 3.92 10 4.25-5 .57 low Not Available [facility] (Lab Registration) [address] [place], [address], 01/03/2019 08:06:14 01/04/20 19 01/03/2019 CBC w/ auto diff HGB 10.0 g/dL 12.0-1 5.7 low Not Available [facility] (Lab Registration) [address] [place], [address], 01/03/2019 08:06:14 01/04/20 19 01/03/2019 CBC w/ auto diff HCT 34.1 % 36.0-4 7.0 low Not Available [facility] (Lab Registration) [address] [place], [address], 01/03/2019 08:06:14 01/04/20 19 01/03/2019 CBC w/ auto diff MCV 87.0 fL 80-95 Not Available [facility] (Lab Registration) [address] [place], [address], 01/03/2019 08:06:14 01/04/20 19 01/03/2019 CBC w/ auto diff MCH 25.5 pg 27.0-3 4.0 low Not Available [facility] (Lab Registration) [address] [place], [address], 01/03/2019 08:06:14 01/04/20 19 01/03/2019 CBC w/ auto diff MCHC 29.3 g/dL 32.0-3 6.0 low Not Available [facility] (Lab Registration) [address] [place], [address], 01/03/2019 08:06:14 01/04/20 19 01/03/2019 CBC w/ auto diff RDW 16.9 % 12.3-1 5.1 high Not Available [facility] (Lab Registration) [address] [place], [address], 01/03/2019 08:06:14 01/04/20 19 01/03/2019 CBC w/ auto diff platelet count 460 10 150-45 0 high Not Available [facility] (Lab Registration) [address] [place], [address], 01/03/2019 08:06:14 01/04/20 19 01/03/2019 CBC w/ auto diff MPV 10.8 fL 7.4-10 .4 high Not Available [facility] (Lab Registration) [address] [place], [address], 01/03/2019 08:06:14 01/04/20 19 01/03/2019 CBC w/ auto diff granulocyte% 85.8 % 40-75 high Not Available [facility] (Lab Registration) [address] [place], [address], 01/03/2019 08:06:14 01/04/20 19 01/03/2019 CBC w/ auto diff lymphocyte% 11.9 % 15-57 low Not Available [facility] (Lab Registration) [address] [place], [address], 01/03/2019 08:06:14 01/04/20 19 01/03/2019 CBC w/ auto diff monocyte% 2.3 % 4.0-12 .0 low Not Available [facility] (Lab Registration) [address] [place], [address], 01/03/2019 08:06:14 01/04/20 19 01/03/2019 CBC w/ auto diff eosinophil% 0.0 % 0.0-4. 0 Not Available [facility] (Lab Registration) [address] [place], [address], 01/03/2019 08:06:14 01/04/20 19 01/03/2019 CBC w/ auto diff basophil% 0.0 % 0.0-1. 0 Not Available [facility] (Lab Registration) [address] [place], [address], 01/03/2019 08:06:14 01/04/20 19 01/03/2019 CBC w/ auto diff granulocyte# 18.41 10 1.8-8. 62 high Not Available [facility] (Lab Registration) [address] [place], [address], 01/03/2019 08:06:14 01/04/20 19 01/03/2019 CBC w/ auto diff lymphocyte# 2.55 10 0.76-5 .40 Not Available [facility] (Lab Registration) [address] [place], [address], 01/03/2019 08:06:14 01/04/20 19 01/03/2019 CBC w/ auto diff monocyte# 0.50 10 0.18-1 .38 Not Available [facility] (Lab Registration) [address] [place], [address], 01/03/2019 08:06:14 01/04/20 19 01/03/2019 CBC w/ auto diff eosinophil# 0.00 10 0.00-0 .46 Not Available [facility] (Lab Registration) [address] [place], [address], 01/03/2019 08:06:14 01/04/20 19 01/03/2019 CBC w/ auto diff basophil# 0.01 10 0.-0.1 1 Not Available [facility] (Lab Registration) [address] [place], [address], 01/03/2019 08:06:14 01/04/20 19 01/03/2019 CBC w/ auto diff manual differential YES Not Available [facility] (Lab Registration) [address] [place], [address], 01/03/2019 08:06:14 01/04/20 19 01/03/2019 CBC w/ auto diff RBC morphology NORMAL normal Not Available [facility] (Lab Registration) [address] [place], [address], 01/03/2019 08:06:14 01/04/20 19 01/03/2019 CBC w/ auto diff platelet estimate ADEQUA TE adequa te Not Available [facility] (Lab Registration) [address] [place], [address], 01/03/2019 08:06:14 01/04/20 19 01/03/2019 CBC w/ auto diff platelet morphology NORMAL normal Not Available [facility] (Lab Registration) [address] [place], [address], 01/03/2019 08:06:14 01/04/20 19 01/03/2019 CBC w/ auto diff segmented neutrophil 83 % 36-66 high Not Available [facility] (Lab Registration) [address] [place], [address], 01/03/2019 08:06:14 01/04/20 19 01/03/2019 CBC w/ auto diff band neutrophil 3 % 0.0-8. 0 Not Available [facility] (Lab Registration) [address] [place], [address], 01/03/2019 08:06:14 01/04/20 19 01/03/2019 CBC w/ auto diff lymphocyte 9 % 15-41 low Not Available [facility] (Lab Registration) [address] [place], [address], 01/03/2019 08:06:14 01/04/20 19 01/03/2019 CBC w/ auto diff monocyte 5 % 2-9 Not Available [facility] (Lab Registration) [address] [place], [address], 01/03/2019 08:06:14 01/04/20 19 01/03/2019 CBC w/ auto diff note Unles s other taylor noted testi ng perfo rmed at: [facility] [address] [place] [address] [phone] Rinku montana MD CLIA: [id number] Not Available [facility] (Lab Registration) [address] [place], [address], 01/03/2019 08:06:14 01/04/20 19 01/03/2019 hemat ocrit + hemog lobin HGB 9.5 g/dL 12.0-1 5.7 low Not Available [facility] (Lab Registration) [address] [place], [address], 01/03/2019 20:06:56 01/04/20 19 01/03/2019 hemat ocrit + hemog lobin HCT 31.8 % 36.0-4 7.0 low Not Available [facility] (Lab Registration) [address] [place], [address], 01/03/2019 20:06:56 01/04/20 19 01/03/2019 hemat ocrit + hemog lobin note Unles s other taylor noted testi ng perfo rmed at: [facility] [address] [place], [place] [id number] [phone] Rinku montana MD CLIA: [id number] Not Available [facility] (Lab Registration) [address] [place], [address], 01/03/2019 20:06:56 01/05/20 19 01/04/2019 hemat ocrit + hemog lobin HGB 8.9 g/dL 12.0-1 5.7 low Not Available [facility] (Lab Registration) [address] [place], [address], 01/04/2019 02:28:34 01/05/20 19 01/04/2019 hemat ocrit + hemog lobin HCT 30.7 % 36.0-4 7.0 low Not Available [facility] (Lab Registration) [address] [place], [address], 01/04/2019 02:28:34 01/05/20 19 01/04/2019 hemat ocrit + hemog lobin note Unles s other taylor noted testi ng perfo rmed at: [facility] 9 [place] [address] [phone] Rinku montana MD CLIA: [id number] Not Available [facility] (Lab Registration) [address] [place], [address], 01/04/2019 02:28:34 01/05/20 19 01/04/2019 hemat ocrit + hemog lobin HGB 8.9 g/dL 12.0-1 5.7 low Not Available [facility] (Lab Registration) [address] [place], [address], 01/04/2019 06:42:40 01/05/20 19 01/04/2019 hemat ocrit + hemog lobin HCT 30.2 % 36.0-4 7.0 low Not Available [facility] (Lab Registration) [address] [place], [address], 01/04/2019 06:42:40 01/05/20 19 01/04/2019 hemat ocrit + hemog lobin note Unles s other taylor noted testi ng perfo rmed at: [facility] [place] [address] [phone] Rinku montana MD CLIA: [id number] Not Available [facility] (Lab Registration) [address] [place], [address], 01/04/2019 06:42:40 01/05/20 19 01/04/2019 type + scree n, serum history check Comple ana Not Available [facility] (Lab Registration) [address] [place], [address], 01/04/2019 06:53:08 01/05/20 19 01/04/2019 type + scree n, serum ABO/Rh O POSITI VE Not Available [facility] (Lab Registration) [address] [place], [address], 01/04/2019 06:53:08 01/05/20 19 01/04/2019 type + scree n, serum antibody screen NEGATI VE Not Available [facility] (Lab Registration) [address] [place], [address], 01/04/2019 06:53:08 01/05/20 19 01/04/2019 type + scree n, serum status information Comple ana Not Available [facility] (Lab Registration) [address] [place], [address], 01/04/2019 06:53:08 01/05/20 19 01/04/2019 type + scree n, serum note Unles s other taylor noted testi ng perfo rmed at: [facility] [address] [facility] [place] [address] [phone] Rinku montana MD CLIA: [id number] Not Available [facility] (Lab Registration) [address] [place], [address], 01/04/2019 06:53:08 01/05/20 19 01/04/2019 PT/IN R PT (prothrombin time) 22.5 secon ds 9.33-1 0.37 high Not Available [facility] (Lab Registration) [address], [place], [address], 01/04/2019 06:55:13 01/05/20 19 01/04/2019 PT/IN R INR 2.35 0.9-1. 1 high INR is inten ded to be used only for patie nts on stabl e oral anti- coagu lant thera py. *Ther apeut ic Range s 2.0 - 3.0 Usual Thera peuti c Range 2.5 - 3.5 For patie nts with a histo ry of multi ple deep vein throm bus or mecha nical heart valve s. Not Available [facility] (Lab Registration) [address], [place], [address], 01/04/2019 06:55:13 01/05/20 19 01/04/2019 PT/IN R note Unles s other taylor noted testi ng perfo rmed at: [facility] [address] [place] [address] [phone] Rinku montana MD CLIA: [id number] Not Available [facility] (Lab Registration) [address] [place], [address], 01/04/2019 06:55:13 01/05/2001/04/2019 hemat ocrit + hemog lobin HGB 8.7 g/dL 12.0-1 5.7 low Not Available [facility] (Lab Registration) [address] [place], [address], 01/04/2019 08:54:01 01/05/2001/04/2019 hemat ocrit + hemog lobin HCT 29.3 % 36.0-4 7.0 low Not Available [facility] (Lab Registration) [address] [place], [address], 01/04/2019 08:54:01 01/05/20 19 01/04/2019 hemat ocrit + hemog lobin note Unles s other taylor noted testi ng perfo rmed at: [facility] [address] [place] [address] [phone] Rinku montana MD CLIA: [id number] Not Available [facility] (Lab Registration) [address] [place], [address], 01/04/2019 08:54:01 01/05/20 19 01/04/2019 BMP, serum or plasm a sodium 142 mmol/ L 136-14 5 Not Available [facility] (Lab Registration) [address] [place], [address], 01/04/2019 15:53:42 01/05/20 19 01/04/2019 BMP, serum or plasm a potassium 4.0 mmol/ L 3.5-5. 1 Not Available [facility] (Lab Registration) [address] [place], [address], 01/04/2019 15:53:42 01/05/20 19 01/04/2019 BMP, serum or plasm a chloride 104 mmol/ L 98-107 Not Available [facility] (Lab Registration) [address] [place], [address], 01/04/2019 15:53:42 01/05/20 19 01/04/2019 BMP, serum or plasm a carbon dioxide 32 mmol/ L 21-32 Not Available [facility] (Lab Registration) [address] [place], [address], 01/04/2019 15:53:42 01/05/20 19 01/04/2019 BMP, serum or plasm a anion gap 6.0 Not Available [facility] (Lab Registration) [address] [place], [address], 01/04/2019 15:53:42 01/05/20 19 01/04/2019 BMP, serum or plasm a glucose 297 mg/dL 70-110 high Not Available [facility] (Lab Registration) [address], [place], [address], 01/04/2019 15:53:42 01/05/20 19 01/04/2019 BMP, serum or plasm a blood urea nitrogen 14 mg/dL 7-18 Not Available [facility] (Lab Registration) [address] [place], [address], 01/04/2019 15:53:42 01/05/20 19 01/04/2019 BMP, serum or plasm a creatinine 0.9 mg/dL 0.6-1. 0 Not Available [facility] (Lab Registration) [address] [place], [address], 01/04/2019 15:53:42 01/05/20 19 01/04/2019 BMP, serum or plasm a BUN/creatini ne ratio 15.6 ratio 9-21 Not Available [facility] (Lab Registration) [address] [place], [address], 01/04/2019 15:53:42 01/05/20 19 01/04/2019 BMP, serum or plasm a estimated glom filtration rate 68 mL/mi n >60- Not Available [facility] (Lab Registration) [address], [place], [address], 01/04/2019 15:53:42 01/05/20 19 01/04/2019 BMP, serum or plasm a calcium 9.0 mg/dL 8.5-10 .1 Not Available [facility] (Lab Registration) [address] [place], [address], 01/04/2019 15:53:42 01/05/20 19 01/04/2019 BMP, serum or plasm a note Unles s other taylor noted testi ng perfo rmed at: [facility] [address] [place] [address] [phone] Rinku montana MD CLIA: [id number] Not Available [facility] (Lab Registration) [address] [place], [address], 01/04/2019 15:53:42 01/05/20 19 01/04/2019 CBC w/ auto diff WBC 21.9 10 4.5-11 .5 high Not Available [facility] (Lab Registration) [address] [place], [address], 01/04/2019 16:41:06 01/05/20 19 01/04/2019 CBC w/ auto diff RBC 3.25 10 4.25-5 .57 low Not Available [facility] (Lab Registration) [address] [place], [address], 01/04/2019 16:41:06 01/05/20 19 01/04/2019 CBC w/ auto diff HGB 8.3 g/dL 12.0-1 5.7 low Not Available [facility] (Lab Registration) [address] [place], [address], 01/04/2019 16:41:06 01/05/20 19 01/04/2019 CBC w/ auto diff HCT 28.4 % 36.0-4 7.0 low Not Available [facility] (Lab Registration) [address] [place], [address], 01/04/2019 16:41:06 01/05/20 19 01/04/2019 CBC w/ auto diff MCV 87.4 fL 80-95 Not Available [facility] (Lab Registration) [address] [place], [address], 01/04/2019 16:41:06 01/05/20 19 01/04/2019 CBC w/ auto diff MCH 25.5 pg 27.0-3 4.0 low Not Available [facility] (Lab Registration) [address] [place], [address], 01/04/2019 16:41:06 01/05/20 19 01/04/2019 CBC w/ auto diff MCHC 29.2 g/dL 32.0-3 6.0 low Not Available [facility] (Lab Registration) [address] [place], [address], 01/04/2019 16:41:06 01/05/20 19 01/04/2019 CBC w/ auto diff RDW 16.8 % 12.3-1 5.1 high Not Available [facility] (Lab Registration) [address] [place], [address], 01/04/2019 16:41:06 01/05/20 19 01/04/2019 CBC w/ auto diff platelet count 427 10 150-45 0 Not Available [facility] (Lab Registration) [address] [place], [address], 01/04/2019 16:41:06 01/05/20 19 01/04/2019 CBC w/ auto diff MPV 10.8 fL 7.4-10 .4 high Not Available [facility] (Lab Registration) [address] [place], [address], 01/04/2019 16:41:06 01/05/20 19 01/04/2019 CBC w/ auto diff granulocyte% 84.0 % 40-75 high Not Available [facility] (Lab Registration) [address] [place], [address], 01/04/2019 16:41:06 01/05/20 19 01/04/2019 CBC w/ auto diff lymphocyte% 10.1 % 15-57 low Not Available [facility] (Lab Registration) [address] [place], [address], 01/04/2019 16:41:06 01/05/20 19 01/04/2019 CBC w/ auto diff monocyte% 5.9 % 4.0-12 .0 Not Available [facility] (Lab Registration) [address] [place], [address], 01/04/2019 16:41:06 01/05/20 19 01/04/2019 CBC w/ auto diff eosinophil% 0.0 % 0.0-4. 0 Not Available [facility] (Lab Registration) [address] [place], [address], 01/04/2019 16:41:06 01/05/20 19 01/04/2019 CBC w/ auto diff basophil% 0.0 % 0.0-1. 0 Not Available [facility] (Lab Registration) [address] [place], [address], 01/04/2019 16:41:06 01/05/20 19 01/04/2019 CBC w/ auto diff granulocyte# 18.43 10 1.8-8. 62 high Not Available [facility] (Lab Registration) [address] [place], [address], 01/04/2019 16:41:06 01/05/20 19 01/04/2019 CBC w/ auto diff lymphocyte# 2.21 10 0.76-5 .40 Not Available [facility] (Lab Registration) [address] [place], [address], 01/04/2019 16:41:06 01/05/20 19 01/04/2019 CBC w/ auto diff monocyte# 1.29 10 0.18-1 .38 Not Available [facility] (Lab Registration) [address] [place], [address], 01/04/2019 16:41:06 01/05/20 19 01/04/2019 CBC w/ auto diff eosinophil# 0.00 10 0.00-0 .46 Not Available [facility] (Lab Registration) [address] [place], [address], 01/04/2019 16:41:06 01/05/20 19 01/04/2019 CBC w/ auto diff basophil# 0.01 10 0.-0.1 1 Not Available [facility] (Lab Registration) [address] [place], [address], 01/04/2019 16:41:06 01/05/20 19 01/04/2019 CBC w/ auto diff manual differential YES Not Available [facility] (Lab Registration) [address] [place], [address], 01/04/2019 16:41:06 01/05/20 19 01/04/2019 CBC w/ auto diff RBC morphology ABNORM AL normal Not Available [facility] (Lab Registration) [address] [place], [address], 01/04/2019 16:41:06 01/05/20 19 01/04/2019 CBC w/ auto diff platelet estimate ADEQUA TE adequa te Not Available [facility] (Lab Registration) [address] [place], [address], 01/04/2019 16:41:06 01/05/20 19 01/04/2019 CBC w/ auto diff platelet morphology NORMAL normal Not Available [facility] (Lab Registration) [address] [place], [address], 01/04/2019 16:41:06 01/05/20 19 01/04/2019 CBC w/ auto diff segmented neutrophil 82 % 36-66 high Not Available [facility] (Lab Registration) [address] [place], [address], 01/04/2019 16:41:06 01/05/20 19 01/04/2019 CBC w/ auto diff lymphocyte 12 % 15-41 low Not Available [facility] (Lab Registration) [address] [place], [address], 01/04/2019 16:41:06 01/05/20 19 01/04/2019 CBC w/ auto diff monocyte 6 % 2-9 Not Available [facility] (Lab Registration) [address] [place], [address], 01/04/2019 16:41:06 01/05/20 19 01/04/2019 CBC w/ auto diff anisocytosis 1+ none seen Not Available [facility] (Lab Registration) [address] [place], [address], 01/04/2019 16:41:06 01/05/20 19 01/04/2019 CBC w/ auto diff hypochromia 1+ none seen Not Available [facility] (Lab Registration) [address], [place], [address], 01/04/2019 16:41:06 01/05/20 19 01/04/2019 CBC w/ auto diff note Unles s other taylor noted testi ng perfo rmed at: [facility] [place] [address] [phone] Rinku montana MD CLIA: [id number] Not Available [facility] (Lab Registration) [address] [place], [address], 01/04/2019 16:41:06 01/10/20 19 01/10/2019 lipid panel , serum cholesterol, total 176 mg/dL <200 normal Not Available [facility] [address] [place], [address], 01/10/2019 08:48:25 01/10/20 19 01/10/2019 lipid panel , serum HDL cholesterol 47 mg/dL >50 low Not Available [facility] [address] [place], [address], 01/10/2019 08:48:25 01/10/20 19 01/10/2019 lipid panel , serum triglyceride s 135 mg/dL <150 normal Not Available [facility] [address] [place], [address], 01/10/2019 08:48:25 01/10/20 19 01/10/2019 lipid panel , serum LDL-choleste rol 106 mg/dL _(rick c) high Refer ence range : <100 Yanely able range <100 mg/dL for prima ry preve ntion ; <70 mg/dL for patie nts with CHD or diabe tic patie nts with > or = 2 CHD risk facto rs. LDL-C is now calcu lated using the Sandhya n-Hop kins calcu latio n, which is a valid ated novel metho d provi ding bryant r accur acy than the Fried mikaela equat ion in the estim ation of LDL-C . Sandhya n SS et al. SABRINA. 2013; 310(1 9): 2061- 2068 (http ://ed ucati on.Qu estDi rgGI Dynamicss. com/f aq/FA Q164) Not Available [facility] [address], [place], [address], 01/10/2019 08:48:25 01/10/2001/10/2019 lipid panel , serum chol/HDLC ratio 3.7 (calc ) <5.0 normal Not Available [facility] [address] [facility] [facility], [place], [address], 01/10/2019 08:48:25 01/10/2001/10/2019 lipid panel , serum non HDL cholesterol 129 mg/dL _(rick c) <130 normal For patie nts with diabe too plus 1 major ASCVD risk facto r, treat ing to a non-H DL-C goal of <100 mg/dL (LDL- C of <70 mg/dL ) is flash clarke optio n. Not Available [facility] [address], [place], [address], 01/10/2019 08:48:25 01/10/2001/10/2019 CMP, serum or plasm a glucose 187 mg/dL 65-139 high Non-f astin g refer ence inter joce Not Available [facility] [address], [place], [address], 01/10/2019 08:48:25 01/10/2001/10/2019 CMP, serum or plasm a urea nitrogen (BUN) 17 mg/dL 7-25 normal Not Available [facility] [address], [place], [address], 01/10/2019 08:48:25 01/10/2001/10/2019 CMP, serum or plasm a creatinine 0.76 mg/dL 0.50-0 .99 normal For patie nts >49 years of age, the refer ence limit for Creat inine is appro hasmukh mendoza 13% highe r for peopl e ident ified as Afric an-Am yusuf n. Not Available [facility] [address] [place], [address], 01/10/2019 08:48:25 01/10/2001/10/2019 CMP, serum or plasm a eGFR non-afr. somali 85 mL/mi n/1.7 3m2 > or = 60 normal Not Available [facility] [address] [place], [address], 01/10/2019 08:48:25 01/10/2001/10/2019 CMP, serum or plasm a eGFR 98 mL/mi n/1.7 3m2 > or = 60 normal Not Available [facility] [address] [place], [address], 01/10/2019 08:48:25 01/10/20 19 01/10/2019 CMP, serum or plasm a BUN/creatini ne ratio NOT APPLIC ABLE (calc ) 6-22 Not Available [facility] [address] [place], [address], 01/10/2019 08:48:25 01/10/2001/10/2019 CMP, serum or plasm a sodium 139 mmol/ L 135-14 6 normal Not Available [facility] [address] [place], [address], 01/10/2019 08:48:25 01/10/2001/10/2019 CMP, serum or plasm a potassium 3.8 mmol/ L 3.5-5. 3 normal Not Available [facility] [address] [facility] [place], [address], 01/10/2019 08:48:25 01/10/20 19 01/10/2019 CMP, serum or plasm a chloride 102 mmol/ L 98-110 normal Not Available [place] [address] [facility], [address], 01/10/2019 08:48:25 01/10/2001/10/2019 CMP, serum or plasm a carbon dioxide 30 mmol/ L 20-32 normal Not Available [address] [place], [address], 01/10/2019 08:48:25 01/10/2001/10/2019 CMP, serum or plasm a calcium 9.0 mg/dL 8.6-10 .4 normal Not Available [address] [place], [address], 01/10/2019 08:48:25 01/10/2001/10/2019 CMP, serum or plasm a protein, total 6.8 g/dL 6.1-8. 1 normal Not Available [address] [place], [address], 01/10/2019 08:48:25 01/10/20 19 01/10/2019 CMP, serum or plasm a albumin 3.8 g/dL 3.6-5. 1 normal Not Available [address] [place], [address], 01/10/2019 08:48:25 01/10/2001/10/2019 CMP, serum or plasm a globulin 3.0 g/dL_ (calc ) 1.9-3. 7 normal Not Available [facility] [address] [place], [address], 01/10/2019 08:48:25 01/10/20 19 01/10/2019 CMP, serum or plasm a albumin/glob ulin ratio 1.3 (calc ) 1.0-2. 5 normal Not Available [facility] [address] [place], [address], 01/10/2019 08:48:25 01/10/20 19 01/10/2019 CMP, serum or plasm a bilirubin, total 0.4 mg/dL 0.2-1. 2 normal Not Available [employer] [facility] [address] [place], [address], 01/10/2019 08:48:25 01/10/20 19 01/10/2019 CMP, serum or plasm a alkaline phosphatase 86 U/L 33-130 normal Not Available [facility] [address] [place], [address], 01/10/2019 08:48:25 01/10/20 19 01/10/2019 CMP, serum or plasm a AST 8 U/L 10-35 low Not Available [employer] [facility] [place], [address], 01/10/2019 08:48:25 01/10/2001/10/2019 CMP, serum or plasm a ALT 10 U/L 6-29 normal Not Available [employer] [address] [address] [place], [address], 01/10/2019 08:48:25 01/10/20 19 01/10/2019 CBC w/ auto diff white blood cell count 28.8 thous and/u L 3.8-10 .8 high Not Available [facility] [facility] [place], [address], 01/10/2019 08:48:26 01/10/2001/10/2019 CBC w/ auto diff red blood cell count 3.44 flynn on/uL 3.80-5 .10 low Not Available [employer] [facility] [place], [address], 01/10/2019 08:48:26 01/10/20 19 01/10/2019 CBC w/ auto diff hemoglobin 9.2 g/dL 11.7-1 5.5 low Not Available [facility] [address] [facility], [address], 01/10/2019 08:48:26 01/10/20 19 01/10/2019 CBC w/ auto diff hematocrit 29.2 % 35.0-4 5.0 low Not Available [facility] [address] [facility], [address], 01/10/2019 08:48:26 01/10/20 19 01/10/2019 CBC w/ auto diff MCV 84.9 fL 80.0-1 00.0 normal Not Available [facility] [facility], [address], 01/10/2019 08:48:26 01/10/2001/10/2019 CBC w/ auto diff MCH 26.7 pg 27.0-3 3.0 low Not Available [facility] [facility], [address], 01/10/2019 08:48:26 01/10/20 19 01/10/2019 CBC w/ auto diff MCHC 31.5 g/dL 32.0-3 6.0 low Not Available [facility] [address] [place], [place] [address], [place], [address], 01/10/2019 08:48:26 01/10/20 19 01/10/2019 CBC w/ auto diff RDW 15.7 % 11.0-1 5.0 high Not Available [facility] [address] [place], [place] [address], [place], [address], 01/10/2019 08:48:26 01/10/2001/10/2019 CBC w/ auto diff platelet count 580 thous and/u L 140-40 0 high Not Available [facility] [address] [place], [address], 01/10/2019 08:48:26 01/10/20 19 01/10/2019 CBC w/ auto diff MPV 12.2 fL 7.5-12 .5 normal Not Available [facility] [address] [place], [address], 01/10/2019 08:48:26 01/10/20 19 01/10/2019 CBC w/ auto diff absolute neutrophils 66819 cells /uL 1500-7 800 high Not Available [facility] [place], [address], 01/10/2019 08:48:26 01/10/20 19 01/10/2019 CBC w/ auto diff absolute lymphocytes 6826 cells /uL 850-39 00 high Not Available [facility] [place], [address], 01/10/2019 08:48:26 01/10/20 19 01/10/2019 CBC w/ auto diff absolute monocytes 2160 cells /uL 200-95 0 high Not Available [facility] [address] [place], [address], 01/10/2019 08:48:26 01/10/20 19 01/10/2019 CBC w/ auto diff absolute eosinophils 374 cells /uL 15-500 normal Not Available [facility] [address] [place], [address], 01/10/2019 08:48:26 01/10/2001/10/2019 CBC w/ auto diff absolute basophils 58 cells /uL 0-200 normal Not Available [facility] [address], [place], [address], 01/10/2019 08:48:26 01/10/2001/10/2019 CBC w/ auto diff neutrophils 67.3 % normal Not Available [facility] [address] [facility] [place], [address], 01/10/2019 08:48:26 01/10/20 19 01/10/2019 CBC w/ auto diff lymphocytes 23.7 % normal Not Available [facility] [address] [place], [address], 01/10/2019 08:48:26 01/10/20 19 01/10/2019 CBC w/ auto diff monocytes 7.5 % normal Not Available [facility] [address] [place], [address], 01/10/2019 08:48:26 01/10/20 19 01/10/2019 CBC w/ auto diff eosinophils 1.3 % normal Not Available [facility] [address] [place], [address], 01/10/2019 08:48:26 01/10/20 19 01/10/2019 CBC w/ auto diff basophils 0.2 % normal Not Available [facility] [address] [place], [address], 01/10/2019 08:48:26 04/09/20 19 04/09/2019 CBC w/ auto diff WBC 12.5 10 4.5-11 .5 high Not Available [facility] (Lab Registration) [address] [place], [address], 04/09/2019 19:54:56 04/09/20 19 04/09/2019 CBC w/ auto diff RBC 4.33 10 4.25-5 .57 Not Available [facility] (Lab Registration) [address] [place], [address], 04/09/2019 19:54:56 04/09/20 19 04/09/2019 CBC w/ auto diff HGB 11.2 g/dL 12.0-1 5.7 low Not Available [facility] (Lab Registration) [address] [place], [address], 04/09/2019 19:54:56 04/09/20 19 04/09/2019 CBC w/ auto diff HCT 36.7 % 36.0-4 7.0 Not Available [facility] (Lab Registration) [address] [place], [address], 04/09/2019 19:54:56 04/09/20 19 04/09/2019 CBC w/ auto diff MCV 84.8 fL 80-95 Not Available [facility] (Lab Registration) [address] [place], [address], 04/09/2019 19:54:56 04/09/20 19 04/09/2019 CBC w/ auto diff MCH 25.9 pg 27.0-3 4.0 low Not Available [facility] (Lab Registration) [address] [place], [address], 04/09/2019 19:54:56 04/09/20 19 04/09/2019 CBC w/ auto diff MCHC 30.5 g/dL 32.0-3 6.0 low Not Available [facility] (Lab Registration) [address] [place], [address], 04/09/2019 19:54:56 04/09/20 19 04/09/2019 CBC w/ auto diff RDW 17.3 % 12.3-1 5.1 high Not Available [facility] (Lab Registration) [address] [place], [address], 04/09/2019 19:54:56 04/09/20 19 04/09/2019 CBC w/ auto diff platelet count 464 10 150-45 0 high Not Available [facility] (Lab Registration) [address] [place], [address], 04/09/2019 19:54:56 04/09/20 19 04/09/2019 CBC w/ auto diff MPV 10.5 fL 7.4-10 .4 high Not Available [facility] (Lab Registration) [address] [place], [address], 04/09/2019 19:54:56 04/09/20 19 04/09/2019 CBC w/ auto diff granulocyte% 59.3 % 40-75 Not Available [facility] (Lab Registration) [address] [place], [address], 04/09/2019 19:54:56 04/09/20 19 04/09/2019 CBC w/ auto diff lymphocyte% 29.2 % 15-57 Not Available [facility] (Lab Registration) [address] [place], [address], 04/09/2019 19:54:56 04/09/20 19 04/09/2019 CBC w/ auto diff monocyte% 7.9 % 4.0-12 .0 Not Available [facility] (Lab Registration) [address] [place], [address], 04/09/2019 19:54:56 04/09/20 19 04/09/2019 CBC w/ auto diff eosinophil% 3.4 % 0.0-4. 0 Not Available [facility] (Lab Registration) [address] [place], [address], 04/09/2019 19:54:56 04/09/20 19 04/09/2019 CBC w/ auto diff basophil% 0.2 % 0.0-1. 0 Not Available [facility] (Lab Registration) [address] [place], [address], 04/09/2019 19:54:56 04/09/20 19 04/09/2019 CBC w/ auto diff granulocyte# 7.39 10 1.8-8. 62 Not Available [facility] (Lab Registration) [address] [place], [address], 04/09/2019 19:54:56 04/09/20 19 04/09/2019 CBC w/ auto diff lymphocyte# 3.63 10 0.76-5 .40 Not Available [facility] (Lab Registration) [address] [place], [address], 04/09/2019 19:54:56 04/09/20 19 04/09/2019 CBC w/ auto diff monocyte# 0.98 10 0.18-1 .38 Not Available [facility] (Lab Registration) [address] [place], [address], 04/09/2019 19:54:56 04/09/20 19 04/09/2019 CBC w/ auto diff eosinophil# 0.42 10 0.00-0 .46 Not Available [facility] (Lab Registration) [address] [place], [address], 04/09/2019 19:54:56 04/09/20 19 04/09/2019 CBC w/ auto diff basophil# 0.03 10 0.-0.1 1 Not Available [facility] (Lab Registration) [address] [place], [address], 04/09/2019 19:54:56 04/09/20 19 04/09/2019 CBC w/ auto diff manual differential NO Not Available [facility] (Lab Registration) [address] [place], [address], 04/09/2019 19:54:56 04/09/20 19 04/09/2019 CBC w/ auto diff note Unles s other taylor noted testi ng perfo rmed at: [facility] [address] [place] [address] [phone] Rinku montana MD CLIA: [id number] Not Available [facility] (Lab Registration) [address] [place], [address], 04/09/2019 19:54:56 04/09/20 19 04/09/2019 tropo olga I, serum or plasm a troponin <0.04 NG/mL 0.0-0. 056 Not Available [facility] (Lab Registration) [address] [place], [address], 04/09/2019 20:11:34 04/09/20 19 04/09/2019 tropo olga I, serum or plasm a note Unles s other taylor noted testi ng perfo rmed at: [facility] [address] [place] [address] [phone] Rinku montana MD CLIA: [id number] Not Available [facility] (Lab Registration) [address] [place], [address], 04/09/2019 20:11:34 04/09/20 19 04/09/2019 CMP, serum or plasm a sodium 138 mmol/ L 136-14 5 Not Available [facility] (Lab Registration) [address] [place], [address], 04/09/2019 20:21:52 04/09/20 19 04/09/2019 CMP, serum or plasm a potassium 4.0 mmol/ L 3.5-5. 1 Not Available [facility] (Lab Registration) [address] [place], [address], 04/09/2019 20:21:52 04/09/20 19 04/09/2019 CMP, serum or plasm a chloride 101 mmol/ L 98-107 Not Available [facility] (Lab Registration) [address] [place], [address], 04/09/2019 20:21:52 04/09/20 19 04/09/2019 CMP, serum or plasm a carbon dioxide 27 mmol/ L 21-32 Not Available [facility] (Lab Registration) [address] [place], [address], 04/09/2019 20:21:52 04/09/20 19 04/09/2019 CMP, serum or plasm a anion gap 10.0 Not Available [facility] (Lab Registration) [address] [place], [address], 04/09/2019 20:21:52 04/09/20 19 04/09/2019 CMP, serum or plasm a glucose 171 mg/dL 70-110 high Not Available [facility] (Lab Registration) [address] [place], [address], 04/09/2019 20:21:52 04/09/20 19 04/09/2019 CMP, serum or plasm a blood urea nitrogen 11 mg/dL 7-18 Not Available [facility] (Lab Registration) [address] [place], [address], 04/09/2019 20:21:52 04/09/20 19 04/09/2019 CMP, serum or plasm a creatinine 0.9 mg/dL 0.6-1. 0 Not Available [facility] (Lab Registration) [address] [place], [address], 04/09/2019 20:21:52 04/09/20 19 04/09/2019 CMP, serum or plasm a BUN/creatini ne ratio 12.2 ratio 9-21 Not Available [facility] (Lab Registration) [address] [place], [address], 04/09/2019 20:21:52 04/09/20 19 04/09/2019 CMP, serum or plasm a estimated glom filtration rate 68 mL/mi n >60- Not Available [facility] (Lab Registration) [address] [place], [address], 04/09/2019 20:21:52 04/09/2004/09/2019 CMP, serum or plasm a total protein 7.7 g/dL 6.4-8. 2 Not Available [facility] (Lab Registration) [address] [place], [address], 04/09/2019 20:21:52 04/09/2004/09/2019 CMP, serum or plasm a albumin 3.5 g/dL 3.4-5. 0 Not Available [facility] (Lab Registration) [address] [place], [address], 04/09/2019 20:21:52 04/09/20 19 04/09/2019 CMP, serum or plasm a calcium 9.5 mg/dL 8.5-10 .1 Not Available [facility] (Lab Registration) [address] [place], [address], 04/09/2019 20:21:52 04/09/20 19 04/09/2019 CMP, serum or plasm a corrected calcium 9.9 mg/dL 8.5-10 .1 Not Available [facility] (Lab Registration) [address] [place], [address], 04/09/2019 20:21:52 04/09/20 19 04/09/2019 CMP, serum or plasm a bilirubin total 0.2 mg/dL 0.4-1. 5 low Not Available [facility] (Lab Registration) [address] [place], [address], 04/09/2019 20:21:52 04/09/20 19 04/09/2019 CMP, serum or plasm a AST (SGOT) 15 U/L 15-37 Not Available [facility] (Lab Registration) [address] [place], [address], 04/09/2019 20:21:52 04/09/20 19 04/09/2019 CMP, serum or plasm a ALT (SGPT) 14 U/L 12-78 Not Available [facility] (Lab Registration) [address] [place], [address], 04/09/2019 20:21:52 04/09/20 19 04/09/2019 CMP, serum or plasm a alk phosphatase 93 U/L 53-141 Not Available [facility] (Lab Registration) [address] [place], [address], 04/09/2019 20:21:52 04/09/20 19 04/09/2019 CMP, serum or plasm a note Unles s other taylor noted testi ng perfo rmed at: [facility] [place] [address] [phone] Rinku montana MD CLIA: [id number] Not Available [facility] (Lab Registration) [address], [place], [address], 04/09/2019 20:21:52 04/09/20 19 04/09/2019 D-dim er, quant , plasm a D-dimer quantitative 465.91 NG/mL 0-500 Not Available [facility] (Lab Registration) [address] [place], [address], 04/09/2019 21:37:41 04/09/20 19 04/09/2019 D-dim er, quant , plasm a note Johnathan chambers other talyor noted testi ng perfo rmed at: [facility] [address] [place] [address] [phone] Rinku montana MD CLIA: [id number] Not Available [facility] (Lab Registration) [address], [place], [address], 04/09/2019 21:37:41 04/09/20 19 04/09/2019 tropo olga I 2 hour armani col troponin <0.04 NG/mL 0.0-0. 056 Not Available [facility] (Lab Registration) [address] [place], [address], 04/09/2019 22:33:34 04/09/20 19 04/09/2019 tropo olga I 2 hour armani col note Johnathan chambers other taylor noted testi ng perfo rmed at: [facility] [address] [place], [place] [id number] [phone] Rinku montana MD CLIA: [id number] Not Available [facility] (Lab Registration) [address] [place], [address], 04/09/2019 22:33:34 08/23/20 17 08/22/2017 CT, abdom en + pelvi s, w/o contr ast [facility] [address] [place] [address] Phone: Fax: Name: ISAÍAS PERLA RD Exam Date: 017 : 1954 Age 62 Gender : F Access ion: [id number] Physic nito: STEFANO L, LEOL Facili ty: [facility] Facili ty HSV: Outpat ient Exam: CT ABD/PE LVIS W/O CT abdome n and?pe lvis Indica tion: Worsen ing abdomi nal pain.? ?Histo ry of GI bleed and ulcers . Findin gs: Axial imagin g throug h the abdome n and pelvis withou t intrav enous contra st.??T he patien t did receiv e oral contra st.??C ompari son with . This study was perfor med with techni ques to keep radiat ion doses as low as reason ably achiev able, (ALARA ). Solid organ evalua tion is limite d withou t intrav enous contra st.??T he intra- abdomi nal solid organs demons trate no acute proces s.??Ch olecys tectom y clips. ??Sple en is absent .??Mil d fatty replac ement of the pancre as.??U rinary bladde r is unrema rkable .??Pel twin calcif icatio ns are consis tent with phlebo liths. ??Infe rior vena caval filter is identi fied.? ?No bowel obstru ction. ??Ther e is a retroc ecal append ix which appear s border line promin ent but withou t adjace nt inflam mation .??No gas or contra st is presen t within the append ix.??N o free fluid, free air or focal fluid collec tion.? ?Areas of gastri c fold thicke barbara.? ?Scatt ered areas of scarri ng and/or atelec tasis within the lung bases. ??Ther e are right cardio phreni c angle lymph nodes which are unchan ged from previo us and theref ore though t to be incide ntal.? ?These are somewh at border line in size.? ?Moder ate degene rative change s are presen t within the spine. Impres rene: 1.??Ricardo rderli ne promin ence of the append ix withou t adjace nt acute inflam matory change .??Thi s may be incide ntal.? ?Early change s of append icitis are not exclud ed. 2.??Th ickeni ng of the gastri c folds which could be relate d to underd istent ion.?? Gastri tis could also have a simila r appear ance. 3.??Ot her chroni c-appe cedric larios. The prelim inary report was provid ed by Dr. Oleksandr tripp on at 0029 hours. Dictat ed By: KAELYN SUAREZ Transc ribed By: wicho gould Transc ribed On: 7:32 AM Electr onical ly signed by: KAELYN SUAREZ 017 Thank you for referr ing ISAÍAS PERLA RD to [facility]. Legall y authen ticate d by ERICK Dumont MD 2016-10 07:40: 48 CC'ed Logic: Orderi ng Provid er: STEFANO LIND CC Provid er: SEKOU Pérez Attend ing Provid er: CHRISTIAN Rice Referr ing Provid er: CHRISTIAN Sorianoitt ing Provid er: CHRISTIAN harris1 [facility] (Radiology) [address] [place], [address], 08/23/2017 12:44:00 08/24/20 17 08/24/2017 XR, chest , 1 view [facility] [address] [place] [address] Phone: Fax: Name: ISAÍAS PERLA RD Exam Date: 2016 : 1954 Age 62 Gender : F Access ion: [id number] Physic nito: NICOL MILLARD Facili ty: [facility] Facili ty HSV: Outpat ient Exam: CHEST SINGLE VIEW/P ORTABL E Portab le chest. Exam date: . Histor y: Centra l line placem ent. Compar maikel: 017. Findin gs: Examin ation of?the chest in the AP uprigh t portab le projec tion demons trates the cardia c silhou ette to be within normal limits .??The re is no eviden ce of medias tinal wideni ng.??A loop monito r is again noted over the left heart region .??The lung lui a demons trate stable -appea ring chroni c lung change s with no acute infilt rates or consol idatio ns.??O ld left rib fractu res are again noted. Impres rene: Simila r-appe aring chroni c lung change s as above with no eviden ce of acute diseas e.??Th e a two-vi ew chest examin ation would be benefi cial for more comple te evalua tion of the chest. The examin ation was review ed and interp reted by Dr Kaelyn Suarez transc ribed by Mari ho PAC. Dictat ed By: KAELYN SUAREZ Transc ribed By: wicho gould Transc ribed On: 2016 11:49 AM Electr onical ly signed by: KAELYN SUAREZ 2016 Thank you for referr ing ISAÍAS PERLA RD to [facility]. Legall y authen ticate d by ERICK Dumont MD 2016-10 14:32: 32 CC'ed Logic: Orderi ng Provid er: CHRISTIAN Rice CC Provid er: SEKOU Pérez Attend ing Provid er: CHRISTIAN Rice Referr ing Provid er: CHRISTIAN CAMARENA O Admitt ing Provid er: CHRISTIAN mack [facility] (Radiology) [address] [place], [address], 08/25/2017 08:37:37 08/24/20 17 08/23/2017 CT, abdom en + pelvi s, w/ contr ast [facility] [place] [address] Phone: Fax: Name: ISAÍAS PERLA RD Exam Date: 017 : 1954 Age 62 Gender : F Access ion: [id number] Physic nito: NICOL MILLARD [facility]ili [facility] Facili ty HSV: Outpat ient Exam: CT ABD/PE LVIS W CT abdome n and pelvis with contra st. Exam date: 2016. Histor y: Abdomi nal pain.? ?Evalu ate for mesent katie venous thromb osis. Techni que: Axial imagin g was perfor med from the lower lung lui to the symphy sis pubis along with larios l reform atted images .??The examin ation was perfor med follow ing the inject ion of 100 mL's of Isovue 300 and dilute oral contra st materi al. The study was perfor med with techni ques to keep radiat ion doses as low as reason ably?a kristopher gibson,( ALA) . Indivi dualiz ed dose reduct ion techni ques using automa ana exposu re contro l, or adjust ment of ma,and or kvp accord ing to the patien ts size were employ ed. Findin gs: The visual ized portio ns of the lower lung lui demons trate areas of scarri ng and/or fibros is at.??P ostcon trast imagin g of the liver demons trates no eviden ce of solid or cystic hepati c mass.? ?The there is mild extrah epatic ductal dilata tion likely second emma to previo us cholec ystect maggie.?? There is mild fatty replac ement of the pancre as.??T he spleen is absent .??The superi or mesent katie vein is patent withou t eviden ce of intral uminal fillin g defect s to sugges t clot.? ?There is an IVC filter in place. ??The upper abdomi nal bowel gas patter n is unrema rkable .??The re is no eviden ce free fluid or free air.?? The kidney s demons trate no eviden ce of solid or cystic renal mass. CT of pelvis : Imagin g throug h the pelvis demons trates no eviden ce of free fluid or free air and no eviden ce of pelvic adenop athy.? ?The uterus is absent .??The urinar y bladde r is partia lly decomp ressed .??Sca ttered calcif icatio ns are noted in the pelvic region likely repres enting phlebo liths. ??The bony struct ures demons trate degene rative change s.??Th ere are change s of mild divert iculos is withou t eviden ce of divert iculit is. Impres rene: #1: No eviden ce of mesent katie venous thromb osis. #2: Mild fatty replac ement of the pancre as. #3: Postsu rgical change s of prior cholec ystect maggie. #4: IVC filter in place. #5: Change s of a scatte red divert iculos is withou t eviden ce of divert iculit is. The examin ation was review ed and interp reted by Dr Kaelyn Suarez transc ribed by Mari Roman ton PAC. #2: Dictat ed By: KAELYN SUAREZ Transc ribed By: darío tucker Transc ribed On: 2016 3:13 PM Legall y authen ticate d by ERICK Dumont MD 2016-10 15:24: 23 Electr onical ly signed by: KAELYN SUAREZ 2016 Thank you for referr ISAÍAS [address] RD to [facility]. Legall y authen ticate d by ERICK Dumont MD 2016-10 15:24: 23 CC'ed Logic: Orderi ng Provid er: EMMA CARRILLO CC Provid er: ALLISO N GILLES A Attend ing Provid er: CHRISTIAN Rice Referr ing Provid er: CHRISTIAN CAMARENA O Admitt ing Provid er: CHRISTIAN mack [facility] (Radiology) [address] [place], [address], 08/25/2017 08:37:37 09/12/20 17 09/12/2017 ABD KUB 1V [facility] [address] [place] [address] Phone: Fax: Name: ISAÍAS PERLA RD Exam Date: 2016 : 1954 Age 62 Gender : F Access ion: [id number] Physic nito: NICOL MILLARD Facili ty[facility] Facili ty HSV: Outpat ient Exam: ABD KUB 1V KUB. Exam date 2016. Histor y: Abdomi nal pain. Findin gs: Single AP view of the abdome n was obtain ed. There is a nonspe cific nonobs tructi ve bowel gas patter n. Surgic al clips are noted in the right upper quadra nt from prior cholec ystect maggie. An IVC filter is noted in place. Multip le rounde d calcif icatio n are noted over the lower pelvic region , likely repres enting phlebo liths. Degene rative change s noted in the lumbar spine. Impres rene: Nonspe cific nonobs tructi ve bowel gas patter n. The examin ation was review ed and interp reted by Dr Rupert Solano transc ribed by Mari ho PAC. Dictat ed By: TRISETN SOLANO Transc ribed By: TRISTEN SOLANO Transc ribed On: 2016 3:48 PM Electr onical ly signed by: TRISTEN SOLANO 2016 Thank you for referr ing ISAÍAS PERLA RD to [facility]. Legall y authen ticate d by DANELLE BRUCE MD 2016-11-12 15:48: 15 CC'ed Logic: Orderi ng Provid er: RACHELLIGIA Suresh Turcios CC Provid er: SEKOU Pérez Attend ing Provid er: JENNY- NINFA IGNACI O Referr ing Provid er: JENNY- NINFA IGNACI O Admitt ing Provid er: [facility] IGNACI O [facility] (Radiology) [address] , [place], [address], 09/14/2017 21:53:16 09/17/20 17 08/24/2017 vein extre m lwr bilat duplx US LOWER EXTREM ITY VENOUS DUPLEX CRAWV[address] RD, ISAÍAS [facility] 1 2 EXAM: VENOUS DUPLEX LOWER BILATE RAL [id number] DATE OF EXAM: 2016 14:33: 41 PROVID ER: José Miguel Brito MD FINDIN GS: The exam was perfor med in bilate ral lower extrem ities. There is comple te compre ssion flow record ed and no visibl e thromb us throug hout bilate ral common femora l, greate r saphen ous, superf icial femora l, deep femora l, poplit eal, business initiatives manager ior tibial , anteri or tibial , perone al and gastro cnemiu s veins. CONCLU SIONS: Negati ve for deep venous thromb osis bilate rally. DICTAT ED BY: José Miguel Brito MD CW/MOD L DD: 2016 10:01: 59 DT: 2016 10:28: 21 /[id number] Electr onical ly Signed By: ELIZABETH THOMPSON MD 2016-11-18 11:08: 19 CC'ed Logic: Orderi ng Provid er: JENNY- NINFA IGNACI O CC Provid er: SEKOU Pérez Attend ing Provid er: JENNY- NINFA IGNACI O Referr ing Provid er: JENNY- NINFA IGNACI O Admitt ing Provid er: JENNY- NINFA IGNACI O [facility] (Radiology) [address] [place], [address], 10/10/2017 22:02:30 10/10/20 17 10/10/2017 XR, chest , 2 view [facility] [address] [place] [address] Phone: Fax: Name: ISAÍAS PERLA RD Exam Date: 2016 : 1954 Age 62 Gender : F Access ion: [id number] Physic nito: YVES MITCHELL Facili ty[facility] Facili ty HSV: Outpat ient Exam: CHEST SINGLE VIEW/P ORTABL E PORTAB LE CHEST HISTOR Y: Cough. COMPAR MAIKEL: er 2016. FINDIN GS: EKG leads overli e the chest. There is a loop record er over the left chest. The cardia c silhou ette is border line promin ent. The medias tinum is unrema rkable . There are low lung volume s. There is no eviden ce of acute diseas e presen t. There is no pneumo thorax . Osseou s struct ures demons trate no acute abnorm ality. IMPRES RENE: No acute cardio pulmon emma proces s. Low lung volume s. Sugges t follow -up PA and latera l chest film. The films were review ed, interp reted, and dictat ed by Dr. Kaelyn Suarez Transc ribed by CHANI YehC Dictat ed By: KAELYN SUAREZ Transc ribed By: ramona suarez Transc ribed On: 2016 2:17 PM Electr onical ly signed by: KAELYN SUAREZ 2016 Thank you for referr ing ISAÍAS PERLA RD to [facility]. Legall y authen ticate d by ERICK Dumont MD 2016-12-11 14:17: 49 CC'ed Logic: Orderi ng Provid er: MICA Hong CC Provid er: SEKOU Pérez Attend ing Provid er: MICA Hong Referr ing Provid er: MICA Hong Admitt ing Provid er: MICA mack [facility] (Radiology) [address] [place], [address], 01/17/2018 13:49:09 10/10/20 17 10/10/2017 shldr 3V RT [facility] [place] [address] Phone: Fax: Name: JANVEENA ROCK ISAÍAS Exam Date: 2016 : 1954 Age 62 Gender : F Access ion: [id number] Physic nito: THERESA , SAYED Facili ty: [facility] Facili ty HSV: Outpat ient Exam: SHLDR 3V RT FINAL REPORT TECHNI QUE: 2 views of the right should er were obtain ed. CLINIC AL HISTOR Y: Fall this AM with contin ued should er pain.? ?HX old FX FINDIN GS: There is no fractu re, disloc ation, or other signif icant abnorm ality of bone or joint. The soft tissue s are unrema rkable . IMPRES RENE: Unrema rkable . Mercedez sommer d by Isaiah Espitia M.D. on 2016 08:48: 59 PMEAST JB Dictat ed By: Isaiah Espitia M.D. Transc ribed By: Transc ribed On: 2016 8:48 PM Electr onical ly signed by: Isaiah Espitia M.D. 2016 Thank you for referr ing ISAÍAS PERLA RD to [facility]. Legall y mercedez russ by JASON VIEIRA 2016-10 20:48: 59 CC'ed Logic: Orderi ng Provid er: THERESA SAYED CC Provid er: SEKOU Pérez Attend ing Provid er: THERESA SAYED Referr ing Provid er: THERESA SAYED Admitt ing Provid er: THERESAONI harris1 [facility] (Radiology) [address] [place], [address], 01/17/2018 13:48:58 10/12/20 17 10/12/2017 CT sinus es wo [facility] [address] [facility] [place] [address] Phone: Fax: Name: ISAÍAS PERLA RD Exam Date: 2016 : 1954 Age 62 Gender : F Access ion: [id number] Physic nito: BONITA CARDENAS Facili ty: [facility] Facili ty HSV: Outpat ient Exam: CT SINUSE S WO CT SINUSE S HISTOR Y: Headac he. COMPAR MAIKEL: January 08, 2012. TECHNI QUE: Thin sectio n axial CT with larios l recons tructi ons. This study was perfor med with techni ques to keep radiat ion doses as low as reason ably achiev able, (ALARA ). Indivi dualiz ed dose reduct ion techni ques using automa ana exposu re contro l or adjust ment of mA and/or kV accord ing to the patien t's size were employ ed. FINDIN GS: There is modera te mucosa l thicke barbara in the base of the left spheno id sinus. This is simila r to slight ly improv ed compar ed to previo us. There is trace mucosa l thicke barbara in the base of the right maxill emma sinus. This is also simila r to slight ly improv ed. There is patchy opacif icatio n of the left greate r than right mastoi d air cells. This is simila r to previo us. This is probab ly relate d to chroni c inflam mation . There are no air-fl uid levels in the sinuse s. The septum is deviat ed to the left superi alison and to the right inferi alison. This is simila r to previo us. The ostiom eatal units are patent . IMPRES RENE: Sinus diseas e as descri bed above. The findin gs are overal l simila r to slight ly improv ed compar ed to previo us. The films were review ed, interp reted, and dictat ed by Dr. Kaelyn Suarez Transc ribed by Kaley Campbell PA-C Dictat ed By: KAELYN SUAREZ Transc ribed By: ramona suarez Transc ribed On: 2016 1:40 PM Electr onical ly signed by: KAELYN SUAREZ 2016 Thank you for [facility]err ing [facility]KERSON [facility] Legall y authen ticate d by ERICK Dumont MD 2016-10 13:40: 41 CC'ed Logic: Orderi ng Provid er: THERESA SAYED CC Provid er: SEKOU Pérez Attend ing Provid er: THERESA SAYED Referr ing Provid er: THERESA SAYED Admitt ing Provid er: THERESA SAYED martina [facility] (Radiology) [address] [place] [address] [place], [address], 10/14/2017 22:36:37 10/23/19 18 10/19/2017 US, echoc ardio gram No observ ation record ed. martina [facility] [address], [place], [address], 10/23/2017 12:43:15 10/24/19 18 10/24/2017 CT, chest , w/ contr ast [facility] 9 [facility] [place] [address] Phone: Fax: Name: ISAÍAS PERLA RD Exam Date: 018 : 1954 Age 62 Gender : F Access ion: [id number] Physic nito: JOSÉ MIGUEL BRITO Facili ty: [facility] Facili ty HSV: Outpat ient Exam: CT CHEST WITH CONTRA ST CT SCAN OF THE CHEST WITH CONTRA ST COMPAR MAIKEL: CT of abdome n and pelvis dated [address] of the chest dated 012. HISTOR Y: Abnorm al chest X-ray. Shortn ess of breath . PROCED URE: The patien t was inject ed with IV contra st. Axial images were obtain ed from the lung apex to the mid abdome n by comput ed tomogr aphy.T his study was perfor med with techni ques to keep radiat ion doses as low as reason ably achiev able, (ALARA ). FINDIN GS: CHEST: There are border line promin ent lymph nodes identi fied at the right costop hrenic angle, stable when compar ed to prior CT of the abdome n and pelvis . There is no pneumo thorax . There are otherw ise normal sized lymph nodes withou t adenop athy by size criter ia.. Heart size is mildly enlarg ed. There is no perica rdial or pleura l effusi on there are scatte red areas of pleura l thicke barbara. Artifa ct from loop record er somewh at limits the study. Limite d images of the upper abdome n demons trate the gallbl adder to be surgic ally absent . The spleen is nonvis ualize d and likely surgic ally absent . IVC filter is partia lly imaged . There are areas of scar and/or atelec tasis identi fied in the lungs, simila r to previo us CT of the chest. No suspic ious infilt rate or nodule s identi fied. IMPRES RENE: No acute proces s. Chroni c findin gs as above. Films review ed , interp reted and dictat ed by Dr. Suarez. Transc ribed by Pietro aVrgas PA-C. Dictat ed By: KAELYN SUAREZ Transc ribed By: ramona suarez Transc ribed On: 018 2:51 PM Electr onical ly signed by: KAELYN SUAREZ 018 Thank you for referr ISAÍAS [address] RD to [facility]. Legall y authen ticate d by ERICK Dumont MD 2018-0 10-24 14:51: 47 CC'ed Logic: Orderi ng Provid er: ELIZABETH Huitron CC Provid er: ALLISO N GILLES A Attend ing Provid er: ELIZABETH Huitron Referr ing Provid er: ELIZABETH Huitron Admitt ing Provid er: ELIZABETH mack [facility] (Radiology) [address] , [place], [address], 10/25/2017 09:15:41 10/26/19 18 10/25/2017 US, echoc ardio gram No observ ation record ed. martina [facility] [address], [place], [address], 10/26/2017 18:48:03 11/14/19 18 10/24/[address] spec wm/ef grid maker NUCLEA R STRESS TEST [address], ISAÍAS [facility] EXAM: NM MYOCAR D SPEC WM/EF APPLICATIONS SUPPORT LEAD [id number] DATE OF EXAM: 2017 10:25: 29 PROVID ER: José Miguel Brito MD TECHNI QUE: The patien t was studie d with a 1-day protoc ol using Lexisc an 0.4 mg and sestam ibi due to inabil ity to walk on the treadm ill. FINDIN GS: Heart rate was sinus rhythm throug hout the study with interm ittent PVCs and varied from 72-115 . Blood pressu re varied from 155/11 0 to 186/10 1. The patien t compla ined of shortn ess of breath and headac he; howeve r, oxygen satura tion remain ed stable on room air and vital signs remain ed stable . Raw imagin g showed no injury and usual uptake . Wall motion was normal on gated analys is. Nuclea r ejecti on fracti on 62%. Perfus ion imagin g showed a fixed anteri or modera te size direct defect with minima l revers ibilit y which is mild in intens ity. Transi ent ischem ic dilata tion ratio is 0.9. CONCLU SIONS: Normal nuclea r ejecti on fracti on. Modera te in size mild in intens ity anteri or fixed defect with minima l revers ibilit y which may repres ent attenu ation artifa ct. DICTAT ED BY: José Miguel Brito MD CW/CAROLINA Hong DD: 2017 17:05: 22 DT: 2017 19:18: 00 /[id number] Electr onical ly Signed By: ELIZABETH THOMPSON MD 11-14 10:15: 31 CC'ed Logic: Orderi ng Provid er: ELIZABETH Huitron CC Provid er: SEKOU Pérez Attend ing Provid er: ELIZABETH Huitron Referr ing Provid er: ELIZABETH Huitron Admitt ing Provid er: ELIZABETH mack [facility] (Radiology) [address] [place] [address] [place], [address], 11/17/2017 20:36:27 01/30/20 18 01/29/2018 XR, chest , 2 view [facility] vt [address] [facility] [place] [address] Phone: Fax: Name: ISAÍAS PERLA RD Exam Date: 018 : 1954 Age 62 Gender : F Access ion: [id number] Physic nito: GILLES CASSIDY Facili ty: [facility] Facili ty HSV: Outpat ient Exam: CHEST PA ^ LAT CHEST, 2 VIEWS HISTOR Y: Right- sided chest wall pain COMPAR MAIKEL: 12/19/19 17 FINDIN GS: The heart and medias tinum are unrema rkable . A loop record er overli es the left chest. The lungs demons trate blunti ng of left costop hrenic angle which is unchan ged. There is minima l scarri ng at the right lung base and right upper chest. The bony struct ures demons trate old compre ssion deform ities of mid thorac ic spine. IMPRES RENE: Stable chroni c change s as detail ed above. Films review ed , interp reted and dictat ed by Dr. Suarez. Transc ribed by Geovany Marks PA-C. Dictat ed By: KAELYN SUAREZ Transc ribed By: ramona suarez Transc ribed On: 3:18 PM Electr onical ly signed by: KAELYN SUAREZ Thank you for referr ing [facility]AS PERLA RD [facility] Legall y authen ticate d by ERICK Dumont MD 2017-0 01-29 15:18: 35 CC'ed Logic: Orderi ng Provid er: SEKOU Pérez CC Provid er: SEKOU Pérez Attend ing Provid er: SEKOU Pérez Referr ing Provid er: SEKOU Pérez Admitt ing Provid er: SEKOU harris[address] [place] [address] (Radiology) [address] [place], [address], 01/30/2018 20:40:26 01/30/20 18 01/29/2018 ribs bilat 3V [facility] [address] [facility] [address] Phone: Fax: Name: ISAÍAS PERLA RD Exam Date: : 1954 Age 62 Gender : F Access ion: [id number] Physic nito: GILLES CASSIDY Facili ty: [facility] Facili ty HSV: Outpat ient Exam: RIBS BILAT 3V RIB SERIES BILATE RAL WITH CHEST HISTOR Y: Chest and rib pain. FINDIN GS: 3 additi onal views of the bilate ral ribs demons trates probab le old right sixth rib fractu re. An acute fractu re is not identi fied. IMPRES RENE: No acute fractu re seen. Consid er follow -up if clinic farhana perez. Films review ed , interp reted and dictat ed by Dr. Suarez. Transc ribed by Geovany Marks PA-C. Dictat ed By: KAELYN SUAREZ Transc ribed By: ramona suarez Transc ribed On: 3:19 PM Electr onical ly signed by: KAELYN SUAREZ Thank you for referr ing PAN WILKERSONISAÍAS to [facility]. Legall y authen ticate d by ERICK Dumont MD 2017-0 01-29 15:19: 32 CC'ed Logic: Orderi ng Provid er: SEKOU Pérez CC Provid er: SEKOU Pérez Attend ing Provid er: SEKOU Pérez Referr ing Provid er: SEKOU Pérez Admitt ing Provid er: SEKOU harris[address] [place] [address] (Radiology) [address] [place], [address], 01/30/2018 20:40:26 03/24/20 18 03/23/2018 XR, chest , 1 view [facility] [address] [place] [address] Phone: Fax: Name: ISAÍAS PERLA RD Exam Date: 03/23/20 18 : 1954 Age 62 Gender : F Access ion: [id number] Physic nito: Facili ty: [facility] Facili ty HSV: Outpat ient Exam: CHEST SINGLE VIEW/P ORTABL E CHEST, 1 view HISTOR Y: Chest pain COMPAR MAIKEL: Decemb er 2016. FINDIN GS: The patchy opacit ies in the left upper lobe. This is also patchy opacit y in the bibasi lar region s which may repres ent infilt rates. Loop record er is noted. The medias tinum has a normal appear ance. The cardia c silhou ette is unrema rkable .No acute osseou s change s. IMPRES RENE: Patchy opacit ies as descri bed above may repres ent pneumo tad, follow -up standa rd 2 views of the chest may be of benefi t. Dictat ed By: GILLES AGUILAR Transc ribed By: GILLES AGUILAR Transc ribed On: 11:01 AM Electr onical ly signed by: GILLES AGUILAR Thank you for referr ing ISAÍAS PERLA RD to [facility] Hospit al. Legall y authen kemal d by POPE GILLES Clarke DO 2017-0 03-24 11:01: 09 CC'ed Logic: Orderi ng Provid er: LAURIE EMMAEDWAR Middleton CC Provid er: SEKOU Pérez Attend ing Provid er: CHRISTIAN Rice Referr ing Provid er: CHRISTIAN Rice Admitt ing Provid er: CHRISTIAN harris1 [facility] (Radiology) [address] [place], [address], 03/24/2018 11:31:27 03/24/20 18 03/24/2018 XR, chest , 2 view [facility] Hospit al 9 [facility] [place] [address] Phone: Fax: Name: ISAÍAS PERLA RD Exam Date: 018 : 1954 Age 62 Gender : F Access ion: [id number] Physic nito: NICOL MILLARD Facili ty[facility] Facili ty HSV: Inpati ent Exam: CHEST PA ^ LAT FINAL REPORT CLINIC AL HISTOR Y: soa, cough, smoker , hx copd FINDIN GS: 2 views of the chest were obtain ed . The heart is normal in size.? ?The cardia c record er device overli es the left chest. There is ectasi a of the aorta. ??The medias tinum is within normal limits .??The re are chroni c inters titial change s with bronch ial thicke barbara which could be relate d to bronch itis.? ?There is no focal pneumo tad identi fied.? ?There is no pneumo thorax . Osseou s struct ures are unrema rkable . IMPRES RENE: Chroni c inters titial change s with bronch ial thicke barbara which could be relate d to bronch itis. Mercedez sommer d by Abdirizak Wade MD on 2017 04:08: 48 PMEAST JB Dictat ed By: Abdirizak Wade MD Transc ribed By: Transc ribed On: 4:08 PM Electr onical ly signed by: Abdirizak Wade MD Thank you for referr ing ISAÍAS PERLA RD to [facility]. Legall y authen ticate d by STACY Zafar II 03-24 16:08: 48 CC'ed Logic: Orderi ng Provid er: CHRISTIAN CAMARENA O CC Provid er: ALLISO N GILLES A Attend ing Provid er: CHRISTIAN Rice Referr ing Provid er: CHRISTIAN Rice Admitt ing Provid er: CHRISTIAN harris1 [facility] (Radiology) [address] [place], [address], 03/24/2018 20:40:40 03/26/20 18 03/26/2018 XR, chest , 1 view [facility] [address] [facility] [place] [address] Phone: Fax: Name: ISAÍAS PERLA RD Exam Date: : 1954 Age 62 Gender : F Access ion: [id number] Physic nito: NICOL MILLARD Facili ty: [facility] Facili ty HSV: Inpati ent Exam: CHEST SINGLE VIEW/P ORTABL E CHEST, 1 view HISTOR Y: Pneumo tad COMPAR MAIKEL: March 23, 2018. FINDIN GS: There are low lung volume s. Slight improv ement in right basila r opacit y compar ed to prior, there are likely still small infilt rates versus effusi ons. Left upper lobe opacit ies withou t signif icant change , given the degree of inspir ation. Loop record er is noted. Electr odes overli e the chest. The heart is stable in size. No acute osseou s change s. IMPRES RENE: Slight improv ement in right basila r opacit y. Contin ued follow -up recomm ended. Dictat ed By: GILLES AGUILAR Transc ribed By: GILLES AGUILAR Transc ribed On: 7:00 AM Electr onical ly signed by: GILLES AGUILAR Thank you for referr ing [facility]AÍAS PERLA RD [facility] Legall y authen ticate d by POPE GILLES Clarke DO 0 03-26 07:00: 48 CC'ed Logic: Orderi ng Provid er: DOCTOR TEST CC Provid er: SEKOU Pérez Attend ing Provid er: CHRISTIAN Rice Referr ing Provid er: CHRISTIAN Rice Admitt ing Provid er: CHRISTIAN harris1 [facility] (Radiology) [address] [place] [address] [place], [address], 04/08/2018 19:54:27 03/26/20 18 03/26/2018 CT, brain , w/o contr ast [facility] 9 [facility] [place] [address] Phone: Fax: Name: ISAÍAS PERLA RD Exam Date: : 1954 Age 62 Gender : F Access ion: [id number] Physic nito: NICOL MILLARD [facility]ili ty[facility] Facili ty HSV: Inpati ent Exam: CT BRAIN HEAD WO CT HEAD HISTOR Y: Headac he TECHNI QUE: Noncon trast exam FINDIN GS: Brain parenc hyma is homoge neous withou t eviden ce of hemorr rosenda, mass effect or edema. No extra- axial abnorm ality is noted. Ventri cles and cister ns appear normal . Remote injury versus promin ent periva scular space noted in the left basal gangli a. The visual ized sinuse s, orbits and petrou s tempor al bones appear unrema rkable . Sympto ms persis t consid er furthe r evalua tion with MRI. IMPRES RENE: No eviden ce of acute hemorr rosenda, mass effect , or midlin e shift. Dictat ed By: GILLES AGUILAR Transc ribed By: GILLES AGUILAR Transc ribed On: 6:57 AM Electr onical ly signed by: GILLES AGUILAR Thank you for referr ing PAN WILKERSONISAÍAS to [facility] it[facility] Hospit al. Legall y authen ticate d by POPE GILLES Clarke DO 2017-0 03-26 06:57: 16 CC'ed Logic: Orderi ng Provid er: DOCTOR TEST CC Provid er: SEKOU Pérez Attend ing Provid er: CHRISTIAN Rice Referr ing Provid er: CHRISTIAN CAMARENA O Admitt ing Provid er: CHRISTIAN mcak [facility] (Radiology) [address] [place], [address], 04/08/2018 19:54:28 03/29/20 18 03/29/2018 US, echoc ardio gram No observ ation record ed. martina Not Available 2017 23:37:13 04/14/20 18 04/13/2018 wrist 3V RT [facility] Hospit al [address] [place] [address] Phone: Fax: Name: ISAÍAS PERLA RD Exam Date: : 1954 Age 62 Gender : F Access ion: [id number] Physic nito: SWINEY , BEATRIZ IA Facili ty: [facility] Facili ty HSV: Outpat ient Exam: WRIST 3V RT Right wrist THREE VIEW HISTOR Y: Right wrist pain after fall FINDIN GS: Three views show commin uted fractu re of the distal right radius . There is a longit udinal fractu re line separa ting the medial articu lar surfac e of the distal right radius with 1-2 mm separa tion of the bony fractu re fragme nts. There is a second longit udinal fractu re line involv ing the latera l metaph ysis. There is also a transv erse fractu re line with slight dorsal angula tion of the distal fractu re fragme nt. No ulnar fractu re is seen. There is associ ated soft tissue swelli ng. Degene rative change identi fied at the right first metaca rpal carpal joint. IMPRES RENE: Commin uted, mildly displa abhijeet distal right radial fractu re as above. Dictat ed By: GENOVEVA BLAIR Transc ribed By: GENOVEVA LARIOS Transc ribed On: 04/14/20 18 7:06 AM Electr onical ly signed by: GENOVEVA BLAIR 04/14/20 Thank you for referr ing PAN WILKERSON ISAÍAS to [facility] Hospit al. Legall y authen ticate d by JOHNNIE TOMAS MD 2017-0 04-14 07:06: 45 CC'ed Logic: Orderi ng Provid er: SWINEY BEARTIZ IA CC Provid er: SEKOU Pérez Attend ing Provid er: SWINEY BEATRIZ IA Referr ing Provid er: SWINEY BEATRIZ IA Admduc ing Provid er: SWINEY BEATRIZ IA martina [facility] (Radiology) [address] [place], [address], 04/16/2018 10:02:56 04/24/20 18 04/24/2018 [facility] [place] [address] Phone: Fax: Name: ISAÍAS PERLA RD Exam Date: 018 : 1954 Age 62 Gender : F Access ion: [id number] Physic nito: GILLES CASSIDY Facili ty: [facility] Facili ty HSV: Outpat ient Exam: WRIST 3V RT Right wrist Indica tion: Follow -up fractu re. Findin gs: Three views compar ed with 8.??Ov erlyin g cast materi al partia lly obscur es bony detail .??Com minute d intra- articu lar fractu re deform ity of the distal radius is again identi fied and appear s very simila r to previo us.??T here is probab le minima l new bone growth .??No other interv al change .??Deg enerat fili change s are most eviden t at the first CMC joint. Impres rene: Minima l new bone growth at distal radius fractu re.??N o other change . Dictat ed By: KAELYN SUAREZ Transc ribed By: darío tucker Transc ribed On: 018 12:00 PM Electr onical ly signed by: KAELYN SUAREZ 018 Thank you for referr ing ISAÍAS PERLA RD to [facility] Hospit al. Legall y authen ticate d by ERICK Dumont MD 2017-0 04-24 13:45: 17 CC'ed Logic: Orderi ng Provid er: ELIZABETH TAMEZ CC Provid er: SEKOU Pérez Attend ing Provid er: SEKOU Pérez Referr ing Provid er: SEKOU Pérez Admitt ing Provid er: SEKOU harris[address] [place] [address] (Radiology) [address] [place], [address], 04/24/2018 22:28:32 05/08/20 18 05/08/2018 wrist 3V RT [facility] Hospit al [address] [place] [address] Phone: Fax: Name: PAN ROCKISAÍAS Exam Date: 018 : 1954 Age 62 Gender : F Access ion: [id number] Physic nito: DASHAWN BRITO ty: [facility] Danielle ty HSV: Outpat ient Exam: WRIST 3V RT Right wrist Indica tion: Follow -up fractu re.??P ain. Findin gs: Three views, compar ed with 8.??Chowdhury perimp osed cast materi al partia lly obscur es bony detail .??Aga in identi fied is a fractu re deform ity of the distal radius with dorsal angula tion of fractu re fragme nts.?? There is some perios teal reacti on and callus format ion at the fractu re site consis tent with a healin g fractu re, althou gh the fractu re is still visual ized.? ?Notat ion is made of some slight shorte barbara of the distal radius , result ing in some minima l ulnar positi ve varian ce.??N o other interv al change . Impres rene: Healin g fractu re of the distal radius as detail ed above. Dictat ed By: KAELYN SUAREZ Transc ribed By: darío tucker Transc ribed On: 12:53 PM Electr onical ly signed by: KAELYN SUAREZ Thank you for referr ing ISAÍAS PERLA RD to [facility]. Legall y authen ticate d by ERICK Dumont MD 05-08 15:50: 25 CC'ed Logic: Orderi ng Provid er: ELIZABETH TAMEZ CC Provid er: SEKOU Pérez Attend ing Provid er: ELIZABETH TAMEZ Referr ing Provid er: ELIZABETH Berger ing Provid er: ELIZABETH mack [facility] (Radiology) [address] [place] [address] [place], [address], 05/08/2018 21:42:33 05/30/20 18 05/30/2018 wrist 3V RT [facility] [address] [facility] [place] [address] Phone: Fax: Name: ISAÍAS PERLA RD Exam Date: : 1954 Age 62 Gender : F Access ion: [id number] Physic nito: GILLES CASSIDY Facili ty: [facility] Facili ty HSV: Outpat ient Exam: WRIST 3V RT Three- view right wrist. Exam date: . Histor y: Follow -up fractu re of the right wrist. Compar maikel: . Findin gs: 3 views of the right wrist were obtain ed and demons trate interv al remova l of overly ing cast materi al. Again seen is the commin uted fractu re of the distal radius with fractu re deform ity. There appear s to be increa sed callus format ion about fractu re site. The fractu re lines remain eviden t. There is wideni ng of the radial ulnar joint space. There is also wideni ng of the scapho lunate joint space. Notati on is again made of slight shorte barbara of the distal radius result ing in some minima l ulnar positi ve varian ce. Impres rene: Healin g fractu re is of the distal radius as above with wideni ng of the radiou lnar and scapho lunate joint spaces . Consid er MRI of the right wrist for furthe r evalua tion. The examin ation was review ed,int erpret ed, and dictat ed by Dr. Gilles Aguilar. Transc ribed by Mari ho PA-C Dictat ed By: GILLES AGUILAR Transc ribed By: GILLES AGUILAR Transc ribed On: 12:59 PM Electr onical ly signed by: GILLES AGUILAR Thank you for referr ing ISAÍAS PERLA RD [facility] Legall y authen ticate d by POPE GILLES Clarke DO 2017-0 05-30 12:59: 56 CC'ed Logic: Orderi ng Provid er: ELIZABETH TAMEZ CC Provid er: SEKOU Pérez Attend ing Provid er: ELIZABETH TAMEZ Referr ing Provid er: SEKOU Pérez Admitt ing Provid er: ELIZABETH mack [facility] (Radiology) [address] [place], [address], 05/30/2018 19:52:22 06/27/20 18 06/27/2018 wrist 3V RT [facility] [address] [place] [address] Phone: Fax: Name: ISAÍAS PERLA RD Exam Date: : 1954 Age 62 Gender : F Access ion: [id number] Physic nito: DASHAWN BRITO ty: [facility] Facili ty HSV: Outpat ient Exam: WRIST 3V RT Three- view right wrist. Exam date: . Histor y: Follow -up fractu re. Compar maikel: 018. Findin gs: 3 views of the right wrist were obtain ed. Again seen is fractu re deform ity of the distal radius . The fractu re lines appear less eviden t on today' s examin ation, and there appear s to be increa sed callus format ion about fractu re site. Again seen is wideni ng of the scapho lunate joint, and the radial ulnar joint. No new fractu res are identi fied. Impres rene: Fractu re deform ity of the distal radius as above with eviden ce of healin g fractu re. The examin ation was review ed,int erpret ed, and dictat ed by Dr. Gilles Aguilar. Transc ribed by Mari ho PA-C Dictat ed By: GILLES AGUILAR Transc ribed By: GILLES AGUILAR Transc ribed On: 1:29 PM Electr onical ly signed by: GILLES AGUILAR Thank you for referr ing ISAÍAS PERLA RD to [facility] Hospit al. Legall y authen ticate d by POPE GILLES Clarke DO 2017-0 06-27 13:29: 49 CC'ed Logic: Orderi ng Provid er: ELIZABETH TAMEZ CC Provid er: SEKOU Caldwell ing Provid er: ELIZABETH TAMEZ Referr ing Provid er: ELIZABETH Berger ing Provid er: ELIZABETH mack [facility] (Radiology) [address] [place] [address] , [place], [address], 06/27/2018 21:02:58 11/01/19 19 11/01/2018 XR, chest , 1 view [facility] al [address] [place] [address] Phone: Fax: Name: ISAÍAS PERLA RD Exam Date: : 1954 Age 63 Gender : F Access ion: [id number] Physic nito: Facili ty: [facility] Facili ty HSV: Outpat ient Exam: CHEST SINGLE VIEW/P ORTABL E CHEST, 1 view HISTOR Y: Dyspne a COMPAR MAIKEL: March 26, 2018. FINDIN GS: Electr odes overli e the chest. Loop record er is noted. Lungs are clear. The heart is upper limits of normal in size. The medias tinum has a normal appear ance. No acute osseou s change s. IMPRES RENE: No acute cardio pulmon emma proces s. Follow -up standa rd 2 views of the chest may be of benefi t. Dictat ed By: GILLES AGUILAR Transc ribed By: GILLES AGUILAR Transc ribed On: 7:16 AM Electr onical ly signed by: GILLES AGUILAR Thank you for referr ing ISAÍAS PERLA RD to [facility]. Legall y authen ticate d by POPE GILLES Clarke DO 11-01 07:16: 09 CC'ed Logic: Orderi ng Provid er: CORRY BRYSON CC Provid er: SEKOU Pérez Attend ing Provid er: STEFANO Berger ing Provid er: STEFANO mack [facility] (Radiology) [address] [place], [address], 11/01/2018 09:01:10 01/02/20 19 01/01/2019 XR, chest , 1 view [facility] [address] [place] [address] Phone: Fax: Name: ISAÍAS PERLA RD Exam Date: : 1954 Age 63 Gender : F Access ion: [id number] Physic nito: JHONATHAN BELL Facili ty: [facility] Facili ty HSV: Outpat ient Exam: CHEST SINGLE VIEW/P ORTABL E Portab le chest. Exam date: . Histor y: Chest pain. Compar maikel: . Findin gs: Examin ation of the chest in the AP portab le uprigh t projec tion demons trates the heart size to be at the upper limits of normal . There is no eviden ce of medias tinal wideni ng. The lung lui demons trate stable appear ing chroni c change s, but no eviden ce of acute infilt rate or consol idatio n and no eviden ce of pneumo thorax or pleura l fluid. Impres rene: Stable appear ing chroni c lung change s as above, with no eviden ce of acute diseas e. The examin ation was review ed , interp reted and dictat ed by Dr Rupert Solano , transc ribed by Mari ho PAC. Dictat ed By: TRISTEN SOLANO Transc ribed By: TRISTEN SOLANO Transc ribed On: 4:12 PM Electr onical ly signed by: TRISTEN SOLANO Thank you for referr ing ISAÍAS PERLA RD to [facility] Hospit [facility]. Legall y authen ticate d by DANELLE BRUCE MD 2018-0 01-01 16:12: 48 CC'ed Logic: Orderi ng Provid er: BRYON Turcios CC Provid er: SEKOU Pérez Attend ing Provid er: BRYON Turcios Referr ing Provid er: BRYON Turcios Admitt ing Provid er: BRYON mack [facility] (Radiology) [address] , [place], [address], 01/16/2019 22:42:54 01/04/20 19 01/03/2019 CT, abdom en + pelvi s, w/o contr ast [facility] [address] [place] [address] Phone: Fax: Name: ISAÍAS PERLA RD Exam Date: : 1954 Age 63 Gender : F Access ion: [id number] Physic nito: VIJAY NELSON Facili ty: [facility] Facili ty HSV: Inpati ent Exam: CT ABD/PE LVIS W/O FINAL REPORT CLINIC AL HISTOR Y: Abdomi nal pain FINDIN GS: Techni que: Axial images throug h the abdome n and pelvis were perfor med by comput ed tomogr aphy. This study was perfor med with techni ques to keep radiat ion doses as low as reason ably achiev able (ALARA ). Indivi dualiz ed dose reduct ion techni ques using automa ana exposu re contro l or adjust ment of mA and/or kV accord ing to the patien t's size were employ ed.??A bdomen : There are patchy areas of ground glass opacit y in the lung bases bilate rally. ??The gallbl adder is absent .??The spleen is absent . The other solid organs and ureter s are within normal limits . The GI tract is unrema rkable withou t sign of append icitis . Within the right rectus muscle is a 7.5 x 4.3 cm hemato ma which extend s for at least 13 cm in cephal ocauda l dimens ion.?? The IVC filter is in place. ??Pelv is: The uterus and ovarie s are absent . The urinar y bladde r is normal .??The re is no eviden ce of abdomi nal or pelvic ascite s, adenop athy, or acute osseou s abnorm ality. ?IM PRESSI ON:??R ight rectus sheath hemato ma. Authen ticate d by Isaiah Espitia M.D. on 2018 06:37: 30 PMEAST JB Dictat ed By: Isaiah Espitia M.D. Transc ribed By: Transc ribed On: 6:37 PM Electr onical ly signed by: Isaiah Espitia M.D. Thank you for referr ing [facility]AÍAS PERLA RD [facility] Legall y authen osielate d by JASON VIEIRA 2018-0 01-03 18:37: 30 CC'ed Logic: Orderi ng Provid er: LESLIE LINARES CC Provid er: ALLISO N GILLES A Attend ing Provid er: LESLIEREBECCA LINARES Referr ing Provid er: LESLIE LINARES Admitt ing Provid er: LESLIE harris1 [facility] (Radiology) [address] [place], [address], 01/16/2019 22:42:54 04/10/20 19 04/09/2019 [facility] [address] [place] [address] Phone: Fax: Name: ISAÍAS PERLA RD Exam Date: : 1954 Age 63 Gender : F Access ion: [id number] Physic nito: LELO WIN Facili ty: [facility] Facili ty HSV: Outpat ient Exam: CHEST SINGLE VIEW/P ORTABL E Portab le chest. HISTOR Y: Chest pain. COMPAR MAIKEL: 2018. FINDIN GS: The heart is normal in size. The medias tinum is unrema rkable . There are chroni c inters titial lung change s. A suture line is noted in the right upper lung field. No focal opacit ies or effusi ons are eviden t. There is no pneumo thorax . There are no acute osseou s abnorm alitie s. A loop record er is noted in the left chest wall. IMPRES RENE: No acute cardio pulmon emma proces s. Contin ued follow up is recomm ended. Dictat ed By: SWATHI BAILEY Transc ribed By: SWATHI BAILEY Transc ribed On: 7:27 AM Electr onical ly signed by: SWATHI BAILEY 019 Thank you for referr ing ISAÍAS PERLA RD [facility] Legall y mercedez cartagenasatya d by VANESA ORTEZ SWATHI Suresh Turcios 04-10 07:27: 36 CC'ed Logic: Orderi ng Provid er: STEFANO LIND CC Provid er: SEKOU Pérez Attend ing Provid er: STEFANO LIND Referr ing Provid er: STEFANO LIND Admitt ing Provid er: STEFANO barraganson1 [facility] (Radiology) [address] [place], [address], 04/30/2019 10:01:17 Result Notes Documentation Provider Name and Address Organization Details Recorded Time Xr, Chest, 2 View : [address] [place] [address] Name: ISAÍAS IGLESIAS Exam Date: 10/10/2017 : 1955 Age 62 Gender: F Physician: REJI SLATER Facility: [facility] Facility HSV: Outpatient Exam: CHEST SINGLE VIEW/PORTABLE PORTABLE CHEST HISTORY: Cough. COMPARISON: August 24, 2017. FINDINGS: EKG leads overlie the chest. There is a loop recorder over the left chest. The cardiac silhouette is borderline prominent. The mediastinum is unremarkable. There are low lung volumes. There is no evidence of acute disease present. There is no pneumothorax. Osseous structures demonstrate no acute abnormality. IMPRESSION: No acute cardiopulmonary process. Low lung volumes. Suggest follow-up PA and lateral chest film. The films were reviewed, interpreted, and dictated by Dr. Hortencia Suarez Transcribed by Pina [place] PA-C Dictated By: HORTENCIA SUAREZ Transcribed By: ramona suarez Transcribed On: 10/10/2017 2:17 PM Electronically signed by: HORTENCIA SUAREZ 10/10/2017 Thank you for referring ISAÍAS IGLESIAS to [facility]. Legally authenticated by ERICK Dumont MD 2017-10-10 14:17:49 CC'ed Logic: Ordering Provider: NOHEMY MENDOZA CC Provider: SOFIA MCNEILL Attending Provider: NOHEMY MENDOZA Referring Provider: NOHEMY MENDOZA Admitting Provider: NOHEMY Black MD [address] [facility], [address], [place], [address], [place] [employer]rie [employer] Sofia PBhupinderSBhupinderCBhupinder 01/17/2018 13:49:09 Ct, Chest, W/ Contrast : [address] [place] [address] Name: ISAÍAS IGLESIAS Exam Date: 10/24/2017 : 1955 Age 62 Gender: F Physician: CINDY BRITO Facility: [facility] Facility HSV: Outpatient Exam: CT CHEST WITH CONTRAST CT SCAN OF THE CHEST WITH CONTRAST COMPARISON: CT of abdomen and pelvis dated 01/01/[address] of the chest dated 01/08/2012. HISTORY: Abnormal chest X-ray. Shortness of breath. PROCEDURE: The patient was injected with IV contrast. Axial images were obtained from the lung apex to the mid abdomen by computed tomography.This study was performed with techniques to keep radiation doses as low as reasonably achievable, (ALARA). FINDINGS: CHEST: There are borderline prominent lymph nodes identified at the right costophrenic angle, stable when compared to prior CT of the abdomen and pelvis. There is no pneumothorax. There are otherwise normal sized lymph nodes without adenopathy by size criteria.. Heart size is mildly enlarged. There is no pericardial or pleural effusion there are scattered areas of pleural thickening. Artifact from loop recorder somewhat limits the study. Limited images of the upper abdomen demonstrate the gallbladder to be surgically absent. The spleen is nonvisualized and likely surgically absent. IVC filter is partially imaged. There are areas of scar and/or atelectasis identified in the lungs, similar to previous CT of the chest. No suspicious infiltrate or nodules identified. IMPRESSION: No acute process. Chronic findings as above. Films reviewed , interpreted and dictated by Dr. Suarez. Transcribed by Pietro Vargas PA-C. Dictated By: HORTENCIA SUAREZ Transcribed By: ramona suarez Transcribed On: 10/24/2017 2:51 PM Electronically signed by: HORTENCIA SUAREZ 10/24/2017 Thank you for referring ISAÍAS IGLESIAS to [facility]. Legally authenticated by ERICK Dumont MD 2017-10-24 14:51:47 CC'ed Logic: Ordering Provider: ELIZABETH WHITE CC Provider: SOFIA MCNEILL Attending Provider: ELIZABETH WHITE Referring Provider: ELIZABETH WHITE Admitting Provider: ELIZABETH Black MD [address] [facility], [address], [place], [address], [place] [employer]rie & Sofia P.SBhupinderC. 10/25/2017 09:15:41 Xr, Chest, 2 View : [address] [place] [address] Name: ISAÍAS IGLESIAS Exam Date: 01/29/2018 : 1955 Age 62 Gender: F Physician: ARELIS BLACK Facility: [facility] Facility HSV: Outpatient Exam: CHEST PA ^ LAT CHEST, 2 VIEWS HISTORY: Right-sided chest wall pain COMPARISON: 12/18/2016 FINDINGS: The heart and mediastinum are unremarkable. A loop recorder overlies the left chest. The lungs demonstrate blunting of left costophrenic angle which is unchanged. There is minimal scarring at the right lung base and right upper chest. The bony structures demonstrate old compression deformities of mid thoracic spine. IMPRESSION: Stable chronic changes as detailed above. Films reviewed , interpreted and dictated by Dr. Suarez. Transcribed by Geovany Marks PA-C. Dictated By: HORTENCIA SUAREZ Transcribed By: ramona suarez Transcribed On: 01/29/2018 3:18 PM Electronically signed by: HORTENCIA SUAREZ 01/29/2018 Thank you for referring ISAÍAS IGLESIAS to [facility]. Legally authenticated by ERICK Dumont MD 2018-01-29 15:18:35 CC'ed Logic: Ordering Provider: SOFIA MCNEILL CC Provider: SOFIA MCNEILL Attending Provider: SOFIA MCNEILL Referring Provider: SOFIA MCNEILL Admitting Provider: SOFIA Black MD [address] [facility], [address], [place], [address], [facility] 01/30/2018 20:40:26 Xr, Chest, 2 View : [address] [place] [address] Name: IASÍAS IGLESIAS Exam Date: 03/24/2018 : 1955 Age 62 Gender: F Physician: CHRISTINE MYERS Facility: [facility] Facility HSV: Inpatient Exam: CHEST PA ^ LAT FINAL REPORT CLINICAL HISTORY: soa, cough, smoker, hx copd FINDINGS: 2 views of the chest were obtained . The heart is normal in size.??The cardiac recorder device overlies the left chest. There is ectasia of the aorta.??The mediastinum is within normal limits.??There are chronic interstitial changes with bronchial thickening which could be related to bronchitis.??There is no focal pneumonia identified.??There is no pneumothorax. Osseous structures are unremarkable. IMPRESSION: Chronic interstitial changes with bronchial thickening which could be related to bronchitis. Authenticated by Abdirizak Wade MD on 03/24/2018 04:08:48 PMEASTERN Dictated By: Abdirizak Wade MD Transcribed By: Transcribed On: 03/24/2018 4:08 PM Electronically signed by: Abdirizak Wade MD 03/24/2018 Thank you for referring ISAÍAS IGLESIAS to [facility]. Legally authenticated by ROSAURA REDD Charisma JOHN 2018-03-24 16:08:48 CC'ed Logic: Ordering Provider: LUCIA KING CC Provider: SOFIA MCNEILL Attending Provider: LUCIA KING Referring Provider: LUCIA KING Admitting Provider: LUCIA Black MD [address] [facility], [address], [place], [address], [facility] 03/24/2018 20:40:40 Xr, Chest, 1 View : [address] [place] [address] Name: ISAÍAS IGLESIAS Exam Date: 03/23/2018 : 1955 Age 62 Gender: F Physician: Facility: [facility] Facility HSV: Outpatient Exam: CHEST SINGLE VIEW/PORTABLE CHEST, 1 view HISTORY: Chest pain COMPARISON: October 10, 2017. FINDINGS: The patchy opacities in the left upper lobe. This is also patchy opacity in the bibasilar regions which may represent infiltrates. Loop recorder is noted.The mediastinum has a normal appearance. The cardiac silhouette is unremarkable.No acute osseous changes. IMPRESSION: Patchy opacities as described above may represent pneumonia, follow-up standard 2 views of the chest may be of benefit. Dictated By: GILLES AGUILAR Transcribed By: GILLES AGUILAR Transcribed On: 03/24/2018 11:01 AM Electronically signed by: GILLES AGUILAR 03/24/2018 Thank you for referring ISAÍAS IGLESIAS to [facility]. Legally authenticated by POPE GILLES Clarke DO 2018-03-24 11:01:09 CC'ed Logic: Ordering Provider: LAURIE FAIR Provider: SOFIA MCNEILL Attending Provider: LUCIA KING Referring Provider: LUCIA KING Admitting Provider: LUCIA Black MD [address] [place] [address], [facility], [place], [address]SB[facility]upinderCBhupinder 03/24/2018 11:31:27 Xr, Chest, 1 View : [address] Mccurdy [place] [address] Name: ISAÍAS IGLESIAS Exam Date: 03/26/2018 : 1955 Age 62 Gender: F Physician: CHRISTINE MYERS Facility: [facility] Facility HSV: Inpatient Exam: CHEST SINGLE VIEW/PORTABLE CHEST, 1 view HISTORY: Pneumonia COMPARISON: March 23, 2018. FINDINGS: There are low lung volumes. Slight improvement in right basilar opacity compared to prior, there are likely still small infiltrates versus effusions. Left upper lobe opacities without significant change, given the degree of inspiration. Loop recorder is noted. Electrodes overlie the chest. The heart is stable in size. No acute osseous changes. IMPRESSION: Slight improvement in right basilar opacity. Continued follow-up recommended. Dictated By: GILLES AGUILAR Transcribed By: GILLES AGUILAR Transcribed On: 03/26/2018 7:00 AM Electronically signed by: GILLES AGUILAR 03/26/2018 Thank you for referring ISAÍAS IGLESIAS to [facility]. Legally authenticated by POPE GILLES Clarke DO 2018-03-26 07:00:48 CC'ed Logic: Ordering Provider: DOCTOR TEST CC Provider: SOFIA MCNEILL Attending Provider: LUCIA KING Referring Provider: LUCIA KING Admitting Provider: LUCIA Black MD [address] [place] [address], [address], [place], [address] Ciarra BlackSShyanne 04/08/2018 19:54:27 Ct, Brain, W/o Contrast : [address] [place] [address] Name: ISAÍAS IGLESIAS Exam Date: 03/26/2018 : 1955 Age 62 Gender: F Physician: CHRISTINE MYERS Facility: [facility] Facility HSV: Inpatient Exam: CT BRAIN HEAD WO CT HEAD HISTORY: Headache TECHNIQUE: Noncontrast exam FINDINGS: Brain parenchyma is homogeneous without evidence of hemorrhage, mass effect or edema. No extra-axial abnormality is noted. Ventricles and cisterns appear normal. Remote injury versus prominent perivascular space noted in the left basal ganglia. The visualized sinuses, orbits and petrous temporal bones appear unremarkable. Symptoms persist consider further evaluation with MRI. IMPRESSION: No evidence of acute hemorrhage, mass effect, or midline shift. Dictated By: GILLES AGUILAR Transcribed By: GILLES AGUILAR Transcribed On: 03/26/2018 6:57 AM Electronically signed by: GILLES AGUILAR 03/26/2018 Thank you for referring ISAÍAS IGLESIAS to [facility]. Legally authenticated by POPE GILLES Clarke DO 2018-03-26 06:57:16 CC'ed Logic: Ordering Provider: DOCTOR JORDAN CC Provider: SOFIA MCNEILL Attending Provider: LUCIA KING Referring Provider: LUCIA KING Admitting Provider: LUCIA Black MD [address] [facility], [address], [place], [address], [facility] 04/08/2018 19:54:28 Xr, Chest, 1 View : [address] [place] [address] Name: ISAÍAS IGLESIAS Exam Date: 11/01/2018 : 1955 Age 63 Gender: F Physician: Facility: [facility] Facility HSV: Outpatient Exam: CHEST SINGLE VIEW/PORTABLE CHEST, 1 view HISTORY: Dyspnea COMPARISON: March 26, 2018. FINDINGS: Electrodes overlie the chest. Loop recorder is noted. Lungs are clear. The heart is upper limits of normal in size. The mediastinum has a normal appearance. No acute osseous changes. IMPRESSION: No acute cardiopulmonary process. Follow-up standard 2 views of the chest may be of benefit. Dictated By: GILLES AGUILAR Transcribed By: GILLES AGUILAR Transcribed On: 11/01/2018 7:16 AM Electronically signed by: GILLES AGUILAR 11/01/2018 Thank you for referring ISAÍAS IGLESIAS to [facility]. Legally authenticated by POPE GILLES Clarke DO 2018-11-01 07:16:09 CC'ed Logic: Ordering Provider: CORRY ROBLES CC Provider: SOFIA MCNEILL Attending Provider: LOKESH LIND Admitting Provider: LOKESH Black MD [address] [facility], [address], [place], [address], [facility] 11/01/2018 09:01:10 Xr, Chest, 1 View : [address] [place] [address] Name: ISAÍAS IGLESIAS Exam Date: 01/01/2019 : 1955 Age 63 Gender: F Physician: DEVIN DUARTE Facility: [facility] Facility HSV: Outpatient Exam: CHEST SINGLE VIEW/PORTABLE Portable chest. Exam date: 01/01/2019. History: Chest pain. Comparison: 11/01/2018. Findings: Examination of the chest in the AP portable upright projection demonstrates the heart size to be at the upper limits of normal. There is no evidence of mediastinal widening. The lung lui demonstrate stable appearing chronic changes, but no evidence of acute infiltrate or consolidation and no evidence of pneumothorax or pleural fluid. Impression: Stable appearing chronic lung changes as above, with no evidence of acute disease. The examination was reviewed , interpreted and dictated by Dr Rupert Solano , transcribed by [facility]. Dictated By: TRISTEN SOLANO Transcribed By: TRISTEN SOLANO Transcribed On: 01/01/2019 4:12 PM Electronically signed by: TRISTEN SOLANO 01/01/2019 Thank you for referring ISAÍAS IGLESIAS to [facility]. Legally authenticated by DANELLE BRUCE MD 2019-01-01 16:12:48 CC'ed Logic: Ordering Provider: FELICIA FAIR Provider: SOFIA MCNEILL Attending Provider: FELICIA BELTRAN Referring Provider: FELICIA BELTRAN Admitting Provider: FELICIA Black MD [address] [facility], [address], [place], [address] 01/16/2019 22:42:54 Ct, Abdomen + Pelvis, W/o Contrast : [address] [place] [address] Name: ISAÍAS IGLESIAS Exam Date: 01/03/2019 : 1955 Age 63 Gender: F Physician: VIJAY NELSON Facility[facility] Facility HSV: Inpatient Exam: CT ABD/PELVIS W/O FINAL REPORT CLINICAL HISTORY: Abdominal pain FINDINGS: Technique: Axial images through the abdomen and pelvis were performed by computed tomography. This study was performed with techniques to keep radiation doses as low as reasonably achievable (ALARA). Individualized dose reduction techniques using automated exposure control or adjustment of mA and/or kV according to the patient's size were employed.??Abdomen: There are patchy areas of groundglass opacity in the lung bases bilaterally.??The gallbladder is absent.??The spleen is absent. The other solid organs and ureters are within normal limits. The GI tract is unremarkable without sign of appendicitis. Within the right rectus muscle is a 7.5 x 4.3 cm hematoma which extends for at least 13 cm in cephalocaudal dimension.??The IVC filter is in place.??Pelvis: The uterus and ovaries are absent. The urinary bladder is normal.??There is no evidence of abdominal or pelvic ascites, adenopathy, or acute osseous abnormality.?IMPRESSION :??Right rectus sheath hematoma. Authenticated by Isaiah Espitia M.D. on 01/03/2019 06:37:30 PMEASTERN Dictated By: Isaiah Espitia M.D. Transcribed By: Transcribed On: 01/03/2019 6:37 PM Electronically signed by: Isaiah Espitia M.D. 01/03/2019 Thank you for referring ISAÍAS IGLESIAS to [facility]. Legally authenticated by JASON VIEIRA 2019-01-03 18:37:30 CC'ed Logic: Ordering Provider: LESLIE LINARES CC Provider: SOFIA MCNEILL Attending Provider: LESLIE LINARES Referring Provider: LESLIE LINARES Admitting Provider: LESLIE Black MD [address] [facility], [address], [place], [address], [facility], PBhupinderSShyanne 01/16/2019 22:42:54 Xr, Chest, 1 View : [address] [place] [address] Name: ISAÍAS IGLESIAS Exam Date: 04/09/2019 : 1955 Age 63 Gender: F Physician: LELO CAMPA Facility[facility] Facility HSV: Outpatient Exam: CHEST SINGLE VIEW/PORTABLE Portable chest. HISTORY: Chest pain. COMPARISON: 01/01/2019. FINDINGS: The heart is normal in size. The mediastinum is unremarkable. There are chronic interstitial lung changes. A suture line is noted in the right upper lung field. No focal opacities or effusions are evident. There is no pneumothorax. There are no acute osseous abnormalities. A loop recorder is noted in the left chest wall. IMPRESSION: No acute cardiopulmonary process. Continued followup is recommended. Dictated By: CELSO GILLIAM Transcribed By: CELSO GILLIAM Transcribed On: 04/10/2019 7:27 AM Electronically signed by: CELSO GILLIAM 04/10/2019 Thank you for referring ISAÍAS IGLESIAS to [facility]. Legally authenticated by TAWANA Turcios 2019-04-10 07:27:36 CC'ed Logic: Ordering Provider: LOKESH LIND CC Provider: SOFIA MCNEILL Attending Provider: LOKESH LIND Referring Provider: LOKESH LIND Admitting Provider: LOKESH Black MD [address], [address] [place] [address], [facility] 04/30/2019 10:01:17 Problems Name Problem SNOMED Code Status Onset Date Resolution Date Notes Provider Name and Address Organization Details Recorded Time Acute bronchiti s 81902906 Active Arelis Black MD [address] [place] [address], [facility] 6 17:09:21 Old bucket handle tear of medial meniscus 12872195 Active Arelis Black MD [address] [place] [address], [facility] 6 17:09:21 Malaise and fatigue 305610271 Active Arelis Black MD [address] [place] [address], [facility] 6 17:09:21 Acquired hypothyro idism 705812451 Active Arelis Black MD [address] [place] [address], [facility] 6 17:09:21 Acquired trigger finger 1666600 Active Arelis Black MD [address] [place] [address], [facility] 6 17:09:21 Candidal vulvovagi nitis 64713062 Active Arelis Black MD [address] [place] [address], [facility] 6 17:09:21 Hypertens fili heart disease 45243316 Active Arelis Black MD [address] [place] [address], [facility] 6 17:09:21 Carpal tunnel syndrome 51549994 Active Arelis Black MD [address] [place] [address], [facility] 6 17:09:21 Pathologi rick fracture of vertebra 958077705 Active Arelis Black MD [address] [place] [address], [facility] 6 17:09:21 Wheezing 26890732 Active Arelis Black MD [address] [place] [address], [facility] 6 17:09:21 Idiopathi c periphera l autonomic neuropath y 02403797 Active Arelis Black MD [address] [place] [address], [facility] 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 6 17:09:21 Pain of hip region 82381206 Ronny Black MD [address] [place] [address], [facility] 6 17:09:21 Depressiv e disorder 86744244 Active Arelis Black MD [address] [place] [address], [facility] 6 00:01:16 Chronic sinusitis 32856244 Ronny Black MD [address] [place] [address], [facility] 6 17:09:21 Vitamin D deficienc y 53576378 Ronny Black MD [address] [place] [address], [facility] 6 17:09:21 Obesity 303891431 Ronny Black MD [address] [place] [address], [facility] 6 17:09:21 Acute sinusitis 82187043 Ronny Black MD [address] [place] [address], [facility] 6 17:09:21 Chronic pain syndrome 375114944 Ronny Black MD [address] [place] [address], [facility] 6 00:01:16 Abdominal pain 78179506 Active Arelis Black MD [address] [place] [address], [facility] 6 17:09:21 Adrenal cortical hypofunct ion 372760739 Active Arelis Black MD [address] [place] [address], [facility] 6 17:09:21 Herpes zoster with nervous system complicat ion 988545250 Active Arelis Black MD [address] [place] [address], [facility] 6 17:09:21 Chronic pain 78522348 Ronny Black MD [address] [place] [address], [facility] 6 17:09:21 Articular cartilage disorder of hip 261177103 Ronny Black MD [address] [place] [address], [facility] 6 17:09:21 Osteoporo sis 83224613 Ronny Black MD [address] [place] [address], [facility] 6 22:06:39 Synovitis /tenosyno vitis - hand 476606813 Ronny Black MD [address] [place] [address], [facility] 6 17:09:21 Collagen disease 24109434 Ronny Black MD [address] [place] [address], [facility] 6 17:09:21 Cramp in limb 897053008 Ronny Black MD [address] [place] [address], [place] [facility] 6 17:09:21 Migraine 16621883 Ronny Black MD [address] [place] [address], [place] [facility] 6 17:09:21 Restless legs syndrome 69992346 Ronny Black MD [address] [place] [address], [place] [facility] 6 00:01:16 Asthma 136121826 Ronny Black MD [address] [place] [address], [place] [facility] 6 17:09:21 Nausea 683075543 Ronny Black MD [address] [place] [address], [place] [facility] 6 17:09:21 Candidias is of mouth 84267438 Ronny Black MD [address] [place] [address], [place] [facility] 6 17:09:21 Candidias is 69683307 Ronny Black MD [address] [place] [address], [place] [facility] 6 17:09:21 Pulmonary embolism 79461170 Ronny Black MD [address] [place] [address], [place] [facility] 6 17:09:21 Disorder of tendon 77983991 Ronny Black MD [address] [place] [address] 7, [facility] - [facility] 6 17:09:21 Hematolog ical agents adverse reaction Active Arelis Black MD [address] [place] [address], [place] [facility] 6 17:09:21 Herpes zoster 1435701 Active Arelis Black MD [address] [place] [address], [place] [facility] 6 17:09:21 Blood leukocyte number above reference range 234501954 Active Arelis Black MD [address] [place] [address], [facility] - [facility] 6 17:09:21 Deep venous thrombosi s of lower extremity 770744187 Active Arelis Black MD [address] [place] [address], [place] [facility] 6 17:09:21 Essential hypertens ion 53047187 Active Arelis Black MD [address] [place] [address], [place] [facility] 6 17:09:21 Blood glucose outside reference range 875033089 Active Arelis Black MD [address] [place] [address], [place] [facility] 6 17:09:21 Abdominal abscess 42606147 Active Arelis Black MD [address] [place] [address], [place] [facility] 6 17:09:21 Diastolic dysfuncti on 6061389 Active Arelis Black MD [address] [place] [address], [place] [facility] 6 17:09:21 Urinary tract infectiou s disease 26589988 Active Arelis Black MD [address] [place] [address], [facility] 6 17:09:21 Gastroent eritis 95665202 Active Arelis Black MD [address] [place] [address], [facility] 6 17:09:21 Vomiting 300351794 Active Arelis Black MD [address] [place] [address], [facility] 6 17:09:21 Hypothyro idism 77200512 Active Arelis Black MD [address] [place] [address], [facility] 6 00:01:16 Arthritis of knee 696438864 Active Arelis Black MD [address] [place] [address], [facility] 6 17:09:21 Otitis media 95208784 Ronny Black MD [address] [place] [address], [facility] 6 17:09:21 Sinusitis 07995014 Active Arelis Black MD [address] [place] [address], [facility] 6 17:09:21 Periphera l neuropath ic pain 901175313 Active Arelis Black MD [address] [place] [address], [facility] 6 17:09:21 Adhesive capsuliti s of shoulder 853032647 Active Arelis Black MD [address], [address] [place] [address], [place] [facility] 6 17:09:21 Chill 10061456 Ronny Black MD [address] [place] [address], [facility] 6 17:09:21 Hematoma 574678255 Ronny Black MD [address] [place] [address], [facility] 6 17:09:21 Generaliz ed osteoarth ritis 462320092 Ronny Black MD [address] [place] [address], [facility] 6 17:09:21 Central chest pain 206407993 Active Arelis Black MD [address], [address] [place] [address], [facility] 6 17:09:21 Syncope 208607776 Ronny Black MD [address], [address] [place] [address], [facility] 6 00:01:16 Chronic bronchiti s 80062579 Active Arelis Black MD [address], [address] [place] [address], [place] [facility] [facility] 6 17:09:21 Esophagea l dysmotili ty 592796277 Active Arelis Black MD [address], [address] [place] [address], [facility] 6 17:09:21 Salvador vizcarra associate d with type 2 diabetes mellitus Active Arelis Black MD [address], [address] [place] [address] 7, [facility] 6 00:01:16 Pain in left lower limb 797321070 Active Arelis Black MD [address], [address] [place] [address] 7, [facility] 6 00:01:16 Body mass index 40+ - severely obese 544649780 Active Arelis Black MD [address], [address] [place] [address], [place] [facility] 6 00:01:16 Mammograp hy abnormal 972051695 Active [place] 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 7 16:44:12 Metabolic dysfuncti on-associ ated steatohep atitis 097763389 Active Arelis Black MD [address] [place] [address], [facility] 7 15:58:46 Chronic thoracic back pain 721571563686 103 Active chronic thoracic and lumbar compressi on fractures Arelis Black MD [address], [address] [place] [address], [facility] 7 16:43:18 Hypoxemia 521340685 Active Arelis Black MD [address], [address] [place] [address] 7, [facility] 8 12:45:23 History of splenecto my 226518767 Active Arelis Black MD [address], [address] [place] [address], [place] [facility] 9 18:04:24 History of carcinosa rcoma of uterus 718434299442 109 Active Arelis Black MD [address] [place] [address], [place] [facility] 9 18:05:50 Gastroeso phageal reflux disease 883732206 Active Arelis Black MD [address] [place] [address], [place] [facility] 6 00:01:16 Nausea and vomiting 21212124 Ronny Black MD [address] [place] [address], [place] [facility] 6 17:09:21 Diarrhea 53298464 Active Arelis Black MD [address] [place] [address], [place] [facility] 6 17:09:21 Osteoarth ritis of knee 236969112 Active Arelis Black MD [address] [place] [address], [facility] 6 17:09:21 Benign essential hypertens ion 5669294 Active Arelis Black MD [address] [place] [address], [facility] 6 17:09:21 Allergic rhinitis 15984923 Active Arelis Black MD [address] [place] [address], [facility] 6 17:09:21 Glucose level outside reference range 123190291 Ronny Black MD [address] [place] [address], [place] [facility] 6 17:09:21 Myoclonus 10650996 Active nocturnal Arelis Black MD [address] [place] [address], [place] [facility] 6 17:09:21 Blood coagulati on disorder 04938503 Active Arelis Black MD [address] [place] [address], [place] [facility] 6 17:09:21 Localized , primary osteoarth ritis 707722265 Active Arelis Black MD [address] [place] [address], [place] [facility] 6 17:09:21 Pneumonia 627571236 Active Arelis Black MD [address] [place] [address], [place] [facility] 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 6 00:01:16 Knee pain Active Arelis Black MD [address] [place] [address], [place] [facility] 6 17:09:21 Anxiety disorder 441329646 Active Arelis Black MD [address] [place] [address], [place] [facility] 6 17:09:21 Obstructi ve sleep apnea syndrome 34404235 Active Arelis Black MD [address], [address] [place] [address], [place] [facility] 6 17:09:21 Hyperlipi demia 09783257 Active Arelis Black MD [address], [address] [place] [address], [place] - [facility] 6 17:09:21 Backache 913872691 Active Arelis Black MD [address] [place] [address], [place] [facility] 6 17:09:21 Acute asthma 441978146 Active Arelis Black MD [address] [place] [address], [place] [facility] 6 17:09:21 Immune thrombocy topenic purpura Active 1985 Arelis Black MD [address] [place] [address], [place] - [facility] 6 17:09:21 Problem Notes None recorded. Procedures Surgical History Date Name Laterality Status Provider Name and Address Organization Details Recorded Time 10/15/19 08 Other completed Not Available [facility] 08/29/2011 04:58:32 10/15/19 02 Srinivasa Fundoplication completed Not Available [facility] 08/29/2011 04:58:32 10/15/18 98 Carpal tunnel surgery completed Arelis Black MD [address], [address] [place] [address], [place] [facility] 05/01/2017 15:58:58 10/15/18 93 Cholecystectomy completed Arelis Black MD [address], [address] [place] [address], [facility] 05/02/2017 16:41:25 10/15/18 86 Splenectomy completed Not Available [facility] 08/29/2011 04:58:32 10/15/18 83 Hysterectomy completed Not Available [facility] 08/29/2011 04:58:32 10/15/18 79 Tubal Ligation completed Not Available [facility] 08/29/2011 04:58:32 Imaging Results None recorded. Procedure Notes None recorded. Medical Equipment None Reported. Allergies Allergen ID Allergen Name Allergen Category Reaction Reaction Severity Criticality Documentation Date Start Date Code Code System Note Provider Name and Address Organization Details Recorded Time 103 Levaquin medicatio n Not available Not available Not available 06/18/2011 21725 2 RxNorm Not Available [facility] 1 04:58:31 104 Non-stero idal anti-infl ammatory agent (substanc e) medicatio n Not available Not available Not available 06/18/2011 72876 5008 SNOMED Not Available [facility] 1 04:58:31 96094 Product containin g 3-hydroxy -3-methyl glutaryl- coenzyme A reductase inhibitor (product) medicatio n myalgias (muscle pain) severe Not available 08/28/2017 91146 009 SNOMED Arelis Black MD [address] [place] [address], [address], [place], [address] [place] [address] [facility] 7 16:06:35 947 Substance with sulfonami de structure and antibacte rial mechanism of action (substanc e) medicatio n Not available Not available Not available 07/11/2011 19782 8003 SNOMED Not Available [facility] 1 04:58:31 Medications Name Sig Start Date Stop Date Status Note LastModified by Organization Details LastModified Time amoxicill in 500 mg capsule TAKE ONE CAPSULE BY MOUTH THREE TIMES DAILY 12/18 completed Not Available Not Available Not Available metformin 500 mg tablet Take 1 tablet twice a day by oral route. 01/17 completed Not Available Not Available Not Available cefprozil 500 mg tablet Take 1 tablet twice a day by oral route with meals for 10 days. 2012 active Not Available Not Available Not Avai lable prednison e 10 mg tablet 12/18 completed Not Available Not Available Not Available ropinirol e 1 mg tablet TAKE ONE OR TWO TABLETS BY MOUTH AT BEDTIME 01/17 completed Not Available Not Available Not Available venlafaxi ne 75 mg tablet active Not Available Not Available Not Available albuterol sulfate 2.5 mg/3 mL (0.083 %) solution for nebulizat ion INHALE 3 ML 4 TIMES A DAY WITH A NEBULIZE R NEEDED active Not Available Not Available No t Available atorvasta tin 10 mg tablet active Not Available Not Available Not Available pravastat in 40 mg tablet Take 1 tablet every day by oral route for 90 days. active Not Available Not Available No t Available fluconazo le 150 mg tablet TAKE 1 TABLET DAILY NEEDED 2018 active Not Available Not Available Not Avai lable methadone 10 mg tablet TAKE ONE TABLET FOUR TIMES DAILY active Not Available Not Available No t Available lisinopri l 20 mg tablet Take 1 tablet every day by oral route. 03/24 completed Not Available Not Available Not Available prednison e 20 mg tablet take 1 po bid for 3 days, then 1 po daily for daily for 5 days, then 1/2 po daily for 10 days then resume usual dose. 11/22 completed Not Available Not Available Not Available prednison e 5 mg tablet TAKE ONE TABLET BY MOUTH ONCE DAILY DIRECTED 2017 active Not Available Not Available Not Avai lable Zithromax 250 mg tablet Take 2 tablets (500 mg) by oral route once daily for 1 day then 1 tablet (250 mg) by oral route once daily for 4 days 2010 active Not Available Not Available Not Avai lable metronida zole 500 mg tablet TAKE 1 TABLET BY MOUTH EVERY 8 HOURS FOR 10 DAYS 01/24 completed Not Available Not Available Not Available phentermi ne 37.5 mg tablet Take 1 tablet every day by oral route. 2011 active Not Available Not Available Not Avai lable ciproflox acin 250 mg tablet TAKE ONE TABLET BY MOUTH EVERY 12 HOURS active Not Available Not Available No t Available acyclovir 400 mg tablet Take 1 tablet every 8 hours by oral route for 10 days. 05/11 completed Not Available Not Available Not Available aspirin 81 mg tablet,de layed release TAKE 1 TABLET BY MOUTH EVERY DAY active Not Available Not Available No t Available acyclovir 800 mg tablet Take 1 tablet 5 times a day by oral route for 10 days. 04/11 completed Not Available Not Available Not Available ondansetr on 8 mg disintegr ating tablet PLACE 1 TABLET ON THE TONGUE AND ALLOW TO DISSOLVE EVERY 8 HOURS NEEDED 2018 active Not Available Not Available Not Avai lable warfarin 3 mg tablet 04/24 completed Not Available Not Available Not Available Nexium 20 mg capsule,d elayed release Take 1 capsule every day by oral route. 05/01 completed Not Available Not Available Not Available venlafaxi ne 100 mg tablet active Not Available Not Available Not Available erythromy willie 250 mg tablet Take 1 tablet every 6 hours by oral route for 30 days. 2014 active Not Available Not Available Not Avai lable ceftriaxo ne 1 gram solution for injection Take 1 g by injectio n route. 12/18 completed Rocephin Not Available Not Available Not Available potassium chloride ER 20 mEq tablet,ex tended release(p art/cryst ) Take 1 tablet every day by oral route as needed for 90 days. active Not Available Not Available No t Available lorazepam 0.5 mg tablet Take 2 tablets 3 times a day by oral route. active as needed occasion ally Not Available Not Available Not Available Nitrostat 0.4 mg sublingua l tablet Place 1 tablet as needed by sublingu al route as needed. active Not Available Not Available No t Available oxycodone -acetamin ophen 10 mg-325 mg tablet Take 1 tablet twice a day by oral route as needed for 30 days. active Not Available Not Available No t Available gabapenti n 800 mg tablet TAKE 1 TABLET BY MOUTH FOUR TIMES A DAY 2018 active Not Available Not Available Not Avai lable calcitoni n (salmon) 200 unit/actu ation nasal spray Take 1 spray every day by nasal route for 90 days. 02/17 completed Not Available Not Available Not Available amlodipin e 10 mg tablet TAKE 1 TABLET ONCE DAILY active Not Available Not Available No t Available doxycycli ne monohydra te 100 mg capsule 11/15 completed Not Available Not Available Not Available levothyro xine 50 mcg tablet TAKE 1 TABLET DAILY 2019 active Not Available Not Available Not Avai lable hydrocodo ne 7.5 mg-acetam inophen 325 mg tablet TAKE 1 TABLET BY MOUTH EVERY 6 HOURS NEEDED 06/09 completed Not Available Not Available Not Available ropinirol e 2 mg tablet Take 2 tablets every day by oral route in the evening for 90 days. 04/23 completed Not Available Not Available Not Available prednison e 2.5 mg tablet Take 1 tablet every day by oral route for 30 days. 2012 active Not Available Not Available Not Avai lable pantopraz ole 40 mg tablet,de layed release TAKE 1 TABLET TWICE A DAY 2019 active Not Available Not Available Not Avai lable cyanocoba raisa (vit B-12) 1,000 mcg/mL injection solution Inject 1 mL every month by intramus cular route. 04/06 completed Not Available Not Available Not Available ropinirol e 0.5 mg tablet TAKE 1 TABLET EVERY EVENING 03/06 completed changed Not Available Not Available Not Available nystatin 100,000 unit/gram topical cream Apply 1 g twice a day by topical route as needed for 20 days. active Not Available Not Available No t Available promethaz ine 25 mg tablet 08/15 completed Not Available Not Available Not Available Xopenex 1.25 mg/3 mL solution for nebulizat ion Inhale 3 mL every 8 hours by nebuliza tion route as needed for 30 days. 2011 active Not Available Not Available Not Avai lable Advair Diskus 250 mcg-50 mcg/dose powder for inhalatio n Inhale 1 puff twice a day by inhalati on route. active Not Available Not Available No t Available Valtrex 1 gram tablet Take 1 tablet every 12 hours by oral route for 7 days. 10/07 completed Not Available Not Available Not Available gabapenti n 300 mg capsule TAKE 3 CAPSULES BY MOUTH 4 TIMES A DAY NEEDED FOR CHRONIC PAIN 08/28 completed Not Available Not Available Not Available budesonid e 0.5 mg/2 mL suspensio n for nebulizat ion Inhale 2 mL twice a day by nebuliza tion route for 30 days. 04/18 completed Not Available Not Available Not Available Proventil HFA 90 mcg/actua tion aerosol inhaler Inhale 2 puffs every 4 hours by inhalati on route as needed. 12/18 completed Not Available Not Available Not Available furosemid e 20 mg tablet TAKE 1 TABLET DAILY 2018 active Not Available Not Available Not Avai lable mirtazapi ne 15 mg tablet Take 1 tablet every day by oral route in the evening for 30 days. 12/18 completed Not Available Not Available Not Available metoprolo l succinate ER 25 mg tablet,ex tended release 24 hr decrease to 1/2 for now and only take if HR > 70 active Not Available Not Available No t Available ergocalci ferol (vitamin D2) 1,250 mcg (50,000 unit) capsule Take 1 capsule every month by oral route in the evening. active Not Available Not Available No t Available dexametha sone sodium phosphate 4 mg/mL injection solution 2014 active Not Available Not Available Not Avai lable gentamici n 40 mg/mL injection solution 2014 active Not Available Not Available Not Avai lable methylpre dnisolone 4 mg tablets in a dose pack take as directed active Not Available Not Available No t Available hydrocodo ne 10 mg-chlorp heniramin e 8 mg/5 mL oral susp extend.re l 12hr TAKE 2.5 ML BY MOUTH EVERY 12 (TWELVE) HOURS NEEDED FOR COUGH FOR UP TO 6 DAYS. 11/11 completed Not Available Not Available Not Available cefdinir 300 mg capsule Take 1 capsule every 12 hours by oral route. 12/28 completed Not Available Not Available Not Available Zofran 2 mg/mL intraveno us solution 2013 active odansetr on for nausea & vomiting , IM Not Available Not Available Not Available fluoxetin e 20 mg capsule TAKE 1 CAPSULE DAILY 2019 active Not Available Not Available Not Avai lable fluticaso ne propionat e 50 mcg/actua tion nasal spray,sherrie pension Inhale 1 spray every day by intranas al route as needed. active Not Available Not Available No t Available metformin ER 500 mg tablet,ex tended release 24 hr Take 2 tablets every day by oral route for 30 days. active Not Available Not Available No t Available loratadin e 10 mg tablet Take 1 tablet every day by oral route. 2011 active Not Available Not Available Not Avai lable ipratropi um bromide 0.02 % solution for inhalatio n Inhale 2.5 mL every 6 hours by inhalati on route as needed for 30 days. active Not Available Not Available No t Available amoxicill in 875 mg-potass ium clavulana te 125 mg tablet TAKE 1 TABLET BY MOUTH TWICE A DAY FOR 10 DAYS 01/23 completed Not Available Not Available Not Available ropinirol e 4 mg tablet TAKE 1 TABLET EVERY EVENING active Not Available Not Available No t Available Zithromax 500 mg tablet active Not Available Not Available Not Available Jantoven 5 mg tablet 1 po daily or as directed 01/09 completed Not Available Not Available Not Available metoprolo l tartrate 25 mg tablet TAKE 1/2 TABLET TWICE A DAY 2019 active Not Available Not Available Not Avai lable duloxetin e 60 mg capsule,d elayed release 1 po daily 01/17 completed Not Available Not Available Not Available Vitamin D3 active Not Available Not Available Not Available Calcium 500 + D active Not Available Not Available Not Available Vitamin B12 active Not Available Not Available Not Available oxycodone 10 mg tablet Take 1 tablet every 4-6 hours by oral route as needed for 30 days. 11/23 completed Not Available Not Available Not Available venlafaxi ne ER 150 mg tablet,ex tended release 24 hr Take 1 tablet every day by oral route. 06/28 completed Not Available Not Available Not Available GaviLyte- N 420 gram oral solution active Not Available Not Available Not Available Dexilant 60 mg capsule, delayed release Take 1 capsule every day by oral route for 30 days. 2015 active Not Available Not Available Not Avai lable azelastin e 137 mcg-fluti casone 50 mcg/spray nasal spray 2 sprays daily prn 2011 active Not Available Not Available Not Avai lable Eliquis 5 mg tablet Take 1 tablet twice a day by oral route. 12/18 completed Not Available Not Available Not Available Vitamin B12 daily active Not Available Not Available Not Available Vitals Date Recorded Body height Body mass index (BMI) Body weight Heart rate Oxygen saturation Oxygen saturation in Arterial blood by Pulse oximetry Inhaled oxygen flow rate Body temperature Systolic And Diastolic Provider Name and Address Organization Details Last Updated DateTime 9 147.32 cm 45 kg/m2 88995.4 6 g 100 /min 96 % 96 % 2 L/min 98.1 [degF] 110/70 mm[Hg] [facility] 9 15:50:52 Date Recorded Body height Body mass index (BMI) Body weight Heart rate Oxygen saturation Oxygen saturation in Arterial blood by Pulse oximetry Systolic And Diastolic Provider Name and Address Organization Details Last Updated DateTime 8 149.86 cm 43.3 kg/m2 80409.9 2 g 91 /min 97 % 97 % 140/87 mm[Hg] Arelis Black MD [address] [facility], [address], [place], [address], [facility] 8 13:44:14 Date Recorded Body height Body mass index (BMI) Body weight Heart rate Oxygen saturation Oxygen saturation in Arterial blood by Pulse oximetry Inhaled oxygen flow rate Body temperature Systolic And Diastolic Provider Name and Address Organization Details Last Updated DateTime 8 149.86 cm 44.3 kg/m2 37766.4 3 g 85 /min 95 % 95 % 1 L/min 98.1 [degF] 110/70 mm[Hg] [facility] 8 16:49:59 Date Recorded Body height Body mass index (BMI) Body weight Heart rate Oxygen saturation Oxygen saturation in Arterial blood by Pulse oximetry Body temperature Systolic And Diastolic Provider Name and Address Organization Details Last Updated DateTime 8 149.86 cm 44.3 kg/m2 24173.1 3 g 78 /min 96 % 96 % 98 [degF] 140/86 mm[Hg] [facility] 8 14:19:53 Date Recorded Body height Body mass index (BMI) Body weight Heart rate Oxygen saturation Oxygen saturation in Arterial blood by Pulse oximetry Body temperature Systolic And Diastolic Provider Name and Address Organization Details Last Updated DateTime 7 149.86 cm 45 kg/m2 949404. 1 g 111 /min 96 % 96 % 98.3 [degF] 136/76 mm[Hg] [facility] 7 14:22:28 Social History Question Answer Notes LastModified by Organizat ion Details LastModified Time Tobacco Smoking Status Never Smoker Not Available [facility] 08/10/2020 03:11:18 Is Blood Transfusion Acceptable In An Emergency? Yes [id number] Information not available 08/10/2020 What Is Your Level Of Caffeine Consumption? Occasional [id number] Information not available 08/10/2020 What Type Of Diet Are You Following? REGULAR [id number] Information not available 08/10/2020 Which Illicit Or Recreational Drugs Have You Used? Negative [id number] Information not available 08/10/2020 Education 4 Year College [email or web address] [id number] 15 Information not available 08/29/2011 Family History Of Heart Disease? Yes 15 Information not available 08/29/2011 Are There Any Guns Present In Your Home? No [id number] Information not available 08/10/2020 Which Of Your Hands Is Dominant? Right [id number] Information not available 08/10/2020 High Blood Pressure Yes 15 Information not available 08/29/2011 Live Alone Or With Others? Alone 15 Information not available 08/29/2011 Marital Status Information not available 08/29/2011 What Was The Date Of Your Most Recent Tobacco Screening? 01/12/2019 [id number] Information not available 08/10/2020 How Many Children Do You Have? 2 [id number] Information not available 08/10/2020 Obese Yes [email or web address] 1 15 Information not available 08/29/2011 Seat Belts Used Routinely Yes 15 Information not available 08/29/2011 Are You Sexually Active? No [id number] Information not available 08/10/2020 General Stress Level High 15 Information not available 08/29/2011 Sex: Unknown Functional Status Question Answer Note LastModified by Organizat ion Details LastModified Time What is your level of alcohol consumption? None [id number] Information not available 08/10/2020 Are you currently employed? No [id number] Information not available 08/10/2020 Are you able to care for yourself independently? 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 Occasional [id number] Information not available 08/10/2020 Mental Status None recorded. Family History Relationship Description Onset Age of this Age Resolved Age Notes LastModified by Organization Details LastModified Time Mother Malignant neoplastic disease 51 leukem ia (previ ously record ed as Cancer ) Not available 03/06/2016 17:22:53 Mother Heart disease previo usly record ed as Heart Proble m Not available 03/06/2016 17:22:54 Mother Kidney disease Not available 2015 17:22:54 Mother Hypertensive disorder previo usly record ed as Hypert ension Not available 03/06/2016 17:22:54 Mother Diabetes mellitus previo usly record ed as Diabet es Not available 03/06/2016 17:22:54 Sister Problem health y Not available 03/06/2016 17:22:54 Sister Problem osteoa rthrit is (previ ously record ed as Other) Not available 03/06/2016 17:22:54 Sister Tuberculosis Not avai lable 03/06/2016 17:22:54 Brother Myocardial infarction previo usly record ed as Heart Attack ([place]) Not available 03/06/2016 17:22:54 Brother Chronic obstructive pulmonary disease previo usly record ed as COPD Not available 03/06/2016 17:22:54 Father Chronic obstructive pulmonary disease previo usly record ed as COPD Not available 03/06/2016 17:22:54 Father Diabetes mellitus previo usly record ed as Diabet es Not available 03/06/2016 17:22:54 Father Kidney disease Not available 2015 17:22:54 Father Heart disease 80 previo usly record ed as Heart Proble m Not available 03/06/2016 17:22:54 Notes:patient has 5 brothers and 2 sisters Medical History Condition Response Coronary Artery Disease N Gout N Kidney Stones N Blood Diseases Y Hyperthyroidism N Depression Y COPD N Hypothyroidism Y Developmental or Behavioral Disorders N Eczema, Hives or other skin conditions N Anxiety Disorder N Muscle, Joint, or Bone Problems Y Vision or Eye Problems N Arthritis Y Serious Illness or Injuries Y Congenital Anomalies N Cancer Y Stroke Y Bladder or Kidney Problems N Hospital Admission other than Y High Cholesterol N Liver Disease N Fibromyalgia N Kidney Disease N Heart Problems Y Ear or Hearing Problems N ADD or ADHD N Thyroid Problems N Skin Problems N Anemia N Constipation N Diabetes Y Bedwetting N Seizures/Epilepsy N Tuberculosis N Diverticulitis N Asthma Y Allergies N GERD/Reflux Y Heart Disease N Pulmonary Embolism Y Hypertension Y Chicken Pox N Osteoporosis N Gynecological History Statement/Question Response If Post Menopausal, Age at Menopause [age] Obstetrics History GPAL:G 3 P 2 0 1 2 Type Value Full Term 2 Induced 1 Living 2 Total 3 Immunizations Vaccine Type Date Status Note Provider Nam e and Address Organization Details Recorded Time Influenza, split virus, quadrivalent, PF 7 completed Not Available [facility] 11/01/2019 02:12:13 pneumococcal polysaccharide PPV23 7 completed Not Available [facility] 11/01/2019 02:12:07 Influenza, split virus, quadrivalent, preservative 4 completed [facility] 09/21/2014 15:28:55 Pneumococcal conjugate PCV 13 5 completed [facility] 01/28/2015 16:41:41 Influenza, split virus, quadrivalent, preservative 6 completed [facility] 12/18/2016 13:43:19 Influenza, split virus, trivalent, preservative 1 completed Not Available [facility] 11/15/2019 02:12:32 pneumococcal polysaccharide PPV23 2 completed Not Available [facility] 11/01/2019 02:12:10 Influenza, split virus, trivalent, preservative 2 completed Not Available [facility] 11/01/2019 02:12:11 Past Encounters Encounter ID Performer Location Encounter Start Date Encounter Closed Date Diagnosis/Indication Diagnosis SNOMED-CT Code Diagnosis ICD10 Code Diagnosis IMO Codes Diagnosis Note [id number] Arelis Black MD [address] [id number] 07/11/2011 10:01:55 07/11/2011 17:10:19 [id number] Arelis Black MD [address] [id number] 08/07/2011 11:30:46 08/08/2011 09:13:58 [id number] Arelis Black MD [address] [id number] 09/04/2011 09:48:06 09/04/2011 12:30:06 [id number] Arelis Black MD [address] [id number] 09/29/2011 09:26:42 10/02/2011 11:54:53 [id number] Arelis Black MD [address] [id number] 10/24/2011 14:27:24 10/25/2011 08:08:38 [id number] Arelis Black MD [address] [id number] 11/21/2011 08:59:53 11/21/2011 13:25:55 [id number] Arelis Black MD [address] [id number] 12/15/2011 09:36:40 12/15/2011 16:13:24 [id number] Arelis Black MD [address] [id number] 01/12/2012 09:50:19 01/12/2012 15:07:10 [id number] Arelis Black MD [address] [id number] 02/08/2012 10:44:48 02/08/2012 13:41:29 [id number] Arelis Black MD [address] [id number] 03/05/2012 11:11:02 03/05/2012 16:33:10 [id number] Arelis Black MD [address] [id number] 04/01/2012 09:22:39 04/01/2012 17:08:13 [id number] Arelis Black MD [address] [id number] 04/29/2012 09:40:39 04/30/2012 13:47:03 [id number] Arelis Black MD [address] [id number] 05/27/2012 10:48:44 05/27/2012 15:20:17 [id number] Arelis Black MD [address] [id number] 06/18/2012 11:14:56 06/19/2012 08:13:27 [id number] Sim Currie MD [address] [id number] 06/21/2012 10:06:27 06/21/2012 11:21:44 [id number] Arelis Black MD [address] [id number] 07/02/2012 14:58:26 07/02/2012 17:48:43 [id number] Arelis Black MD [address] [address] 07/23/2012 08:19:25 07/23/2012 17:23:42 [id number] Arelis Black MD [address] [id number] 08/12/2012 10:47:02 08/12/2012 20:30:51 [id number] Arelis Black MD [address] [id number] 09/09/2012 10:06:00 09/09/2012 20:29:31 [id number] Arelis Black MD [address] [id number] 10/04/2012 08:42:44 10/04/2012 16:12:09 [id number] Arelis Black MD [address] [id number] 7 11/29/2012 09:27:22 11/29/2012 15:29:00 [id number] Arelis Black MD [address] [id number] 12/24/2012 08:49:22 12/24/2012 15:58:16 [id number] Arelis Black MD [address] [id number] 01/21/2013 08:47:45 01/21/2013 16:15:42 [id number] Arelis Black MD [address] [id number] 7 03/21/2013 08:22:38 03/21/2013 16:09:39 [id number] Arelis Black MD [address] [id number] 04/15/2013 13:55:16 04/15/2013 16:41:36 [id number] Arelis Black MD [address] [id number] 05/13/2013 10:22:39 05/13/2013 12:01:40 [id number] Arelis Black MD [address] [id number] 07/10/2013 10:27:48 07/10/2013 12:39:57 [id number] Arelis Black MD [address] [id number] 08/04/2013 10:23:00 08/04/2013 13:35:00 Candidiasis of mouth 22062894 Candidiasis 43196222 Asthma 567373658 Benign ess ential hypertension 2317759 Chronic pain syndrome 310398911 Gastroesop hageal reflux disease 659296824 Localized, primary osteoarthritis 892042245 [id number] Arelis Black MD [address] [id number] 09/30/2013 09:24:02 10/03/2013 18:36:14 Gastroesophageal reflux disease 871170048 Herpes zoster 0679528 Chronic pain syndrome 516778227 Migraine 80483474 Blood leuk ocyte number above reference range 016801149 Deep venou s thrombosis of lower extremity 287751623 Acquired hypothyroidism 459449854 Adrenal co rtical hypofunction 666205130 Asthma 138369272 Osteoarthr itis of knee 648722564 Pneumonia 826432596 [id number] rAelis Black MD [facility] [address] [place] [id number] 11/28/2013 13:57:43 11/28/2013 16:15:25 Essential hypertension 11057511 Acquired hypothyroidism 021319705 Adrenal co rtical hypofunction 066912044 Anxiety disorder 452818382 Blood coag ulation disorder 55059652 Candidiasis 13573463 Chronic pain syndrome 589660067 Gastroesop hageal reflux disease 898805021 Hyperlipidemia 26080958 Idiopathic peripheral autonomic neuropathy 18400397 Restless l egs syndrome 77484721 Blood gluc ose outside reference range 559807630 Abdominal abscess [id number] Arelis Black MD [facility] [address] [place] [id number] 02/17/2014 14:10:19 02/17/2014 15:29:41 Benign essential hypertension 5506724 Anticoagulant therapy 639312646 Glucose le dillan outside reference range 068745727 Adrenal co rtical hypofunction 386614005 Articular cartilage disorder of hip [id number] HIP X-RAY AT [facility]. [place] Chronic pain syndrome 913282420 Gastroesop hageal reflux disease 552760950 Hyperlipidemia 55797420 Megaloblas tic anemia due to vitamin B>12< deficiency 18137480 Osteoarthr itis of knee 643445857 Osteoporosis 36776684 Pathologic al fracture of vertebra 222466284 Restless l egs syndrome 99842533 Screening mammography [id number] Arelis Black MD [facility] [address] [place] [address]-112 7 03/10/2014 10:30:47 03/10/2014 15:31:56 Benign essential hypertension 6393338 Diastolic dysfunction 1887413 Anticoagulant therapy 205445920 Chronic pain syndrome 862846597 Malaise and fatigue 835478759 Obstructiv e sleep apnea syndrome 36254817 [id number] Arelis Black MD [facility] [address] [address]147 7 04/07/2014 14:20:26 04/07/2014 16:56:35 Benign essential hypertension 7442318 Urinary tr act infectious disease 40063767 Glucose le dillan outside reference range 452085347 Acquired hypothyroidism 131922139 Obesity 292103970 Chronic pain syndrome 768520530 Anticoagulant therapy 207389957 [id number] Arelis Black MD [facility] [place] [id number] 7 06/04/2014 14:26:53 06/04/2014 17:35:32 Gastroenteritis 88884584 Vomiting 052886027 Acute sinusitis 24413772 Anticoagulant therapy 244446777 Benign ess ential hypertension 5606983 Chronic pain syndrome 072352185 Essential hypertension 68817828 Knee pain 37171491 Megaloblas tic anemia due to vitamin B>12< deficiency 72128964 [id number] Arelis Black MD [place] 6478861-116 7 07/31/2014 10:52:38 07/31/2014 13:41:05 Adult health examination 722090655 Screening for malignant neoplastic disease 79497368 Chronic pain syndrome 874425402 [id number] Arelis Black MD [place] 6478861-116 7 08/27/2014 10:00:05 08/27/2014 13:58:56 Acute bronchitis 06456717 Chronic pain syndrome 104019332 Acute asthma 511160308 Nausea 252812384 Allergic rhinitis 87724981 [id number] Arelis Black MD [address] [address]456 7 10/23/2014 08:55:22 10/23/2014 11:19:03 Chronic pain syndrome 485469787 Essential hypertension 81568243 Gastroesop hageal reflux disease 336619869 Hyperlipidemia 24247737 Megaloblas tic anemia due to vitamin B>12< deficiency 50246026 Osteoarthr itis of knee 934616899 Anticoagulant therapy 476538506 Hypothyroidism 43214864 [id number] Arelis Black MD [facility] [address] [address] 7 01/28/2015 10:35:56 01/28/2015 13:24:27 Glucose level outside reference range 666827299 Adrenal co rtical hypofunction 530652549 Anticoagulant therapy 880817528 Arthritis of knee 413776008 Benign ess ential hypertension 8474780 Otitis media 35111748 Sinusitis 53144611 Wheezing 05728910 Asthma 934380644 Peripheral neuropathic pain 575699014 Chronic pain syndrome 209841771 Candidiasis 61941558 Megaloblas tic anemia due to vitamin B>12< deficiency 11373800 [id number] Arelis Black MD [facility] [address] [address]326 7 02/26/2015 09:10:54 02/26/2015 11:40:17 Adhesive capsulitis of shoulder 098562361 Anticoagulant therapy 973154079 Chronic pain syndrome 468680536 Osteoarthr itis of knee 798343394 [id number] Arelis Black MD [facility] [address] [address]085 7 03/26/2015 15:00:25 03/26/2015 17:27:40 Adhesive capsulitis of shoulder 560698302 Urinary tr act infectious disease 64362178 Chill 31262323 Anticoagulant therapy 171378742 Benign ess ential hypertension 4381367 Chronic pain syndrome 705962392 Blood leuk ocyte number above reference range 721807532 [id number] Arelis Black MD [facility] [address] [address]568 7 05/06/2015 10:39:18 05/06/2015 16:49:40 Adhesive capsulitis of shoulder 861269089 Anticoagulant therapy 425659755 Anxiety disorder 637880257 Benign ess ential hypertension 4900526 Chronic pain syndrome 623468852 Gastroesop hageal reflux disease 232049445 Hyperlipidemia 63366828 Obstructiv e sleep apnea syndrome 67983660 Hypothyroidism 01641488 Depressive disorder 45283705 [id number] Arelis Black MD [facility] [address] [address]41-383 7 07/12/2015 14:20:09 07/13/2015 09:42:53 Chronic pain syndrome 012325037 Benign ess ential hypertension 6846889 Recurrent falls 142561455 Acquired hypothyroidism 995078613 Adhesive c apsulitis of shoulder 521708645 Adrenal co rtical hypofunction 200746720 Anticoagulant therapy 819390379 Arthritis of knee 988036649 Gastroesop hageal reflux disease 205302962 Hyperlipidemia 53179419 Hematoma 443633912 Generalize d osteoarthritis 311671877 Glucose le dillan outside reference range 415339539 [id number] Arelis Black MD [facility] [address] [place], [place] [address]2661-116 7 10/12/2015 09:45:49 10/19/2015 10:53:41 Central chest pain 935904743 R07.9 Syncope 843751008 R55 Chronic bronchitis 97310 004 J42 Esophageal dysmotility 461302360 K22.4 Adult heal th examination 898243733 Z00.01 Adrenal co rtical hypofunction 284024296 E27.40 Adhesive c apsulitis of shoulder 506516006 M75.02 Acquired hypothyroidism 876242342 E03.9 Malaise and fatigue 2717 25948 R53.83 Wheezing 25879129 R06.2 Chronic pain syndrome 37 8566140 G89.4 Anticoagulant therapy 18 0937153 Z79.01 Polyneurop athy associated with type 2 diabetes mellitus 218995648 E11.42 [id number] Arelis Black MD [facility] [address] [address] 7 03/06/2016 15:36:48 03/08/2016 08:33:15 Pain in left lower limb 875108446 M79.605 Depressive disorder 3548 9007 F32.9 Restless l egs syndrome 93311882 G25.81 Recurrent falls 67234114 2 R29.6 Polyneurop athy associated with type 2 diabetes mellitus 184066893 E11.42 Chronic pain syndrome 37 6484251 G89.4 Megaloblas tic anemia due to vitamin B>12< deficiency 63780562 D53.1 Anticoagulant therapy 18 3504201 Z79.01 Gastroesop hageal reflux disease 026206656 K21.9 Hypothyroidism 89549366 E03.9 Syncope 077242840 R55 Body mass index 40+ - severely obese 725283950 Z68.42 [id number] Arelis Black MD [facility] [address] [address]201 7 12/18/2016 13:26:22 12/20/2016 08:49:27 Acute sinusitis 30175929 J01.90 Abdominal pain 78816280 R10.9 Anticoagulant therapy 18 9444203 Z79.01 Hypothyroidism 50141637 E03.9 Glucose le dillan outside reference range 399966160 R73.09 Acute lowe r respiratory tract infection 588239784 J22 Essential hypertension 30664614 I10 Asthma 266093532 J45.90 9 Uncontroll ed type 2 diabetes mellitus 826898921 E11.65 Body mass index 40+ - severely obese 219828486 Z68.42 [id number] Arelis Black MD [facility] [address] [address] 7 05/01/2017 14:57:54 05/03/2017 16:42:52 Adult health examination 904848345 Z00.01 Diabetic p eripheral neuropathy 142326096 E11.40 Positive s creening for depression on PHQ-9 (Patient Health Questionnaire 9) 1751307866 72580 Z13.89 Fluoxetine doesnt seem to be helping but she used to take effexor and it worked in the past Screening for malignant neoplasm of colon 828592655 Z12.11 Gastro-eso phageal reflux disease with esophagitis 683568484 K21.0 she is getting worse over several weeks and is miserable taking protonix bid and also tums Food getting stuck in esophagus. S/P [employer] Environmental allergy 42 1243851 T78.49XA recurrent urticaria and intermitte nt dyspnea Body mass index 40+ - severely obese 832055359 Z68.41 Nausea 579979594 R11.0 Acquired hypothyroidism 540154505 E03.9 Benign ess ential hypertension 9379266 I10 Generalize d osteoarthritis 572270017 M15.9 Osteoarthr itis of knee 915869619 M17.0 Esophageal dysmotility 342056320 K22.4 Chronic pain syndrome 37 7302570 G89.4 Hyperlipidemia 16400922 E78.5 Carpal mignon josé luis syndrome 41487750 G56.03 She had carpal tunnel surgery remotely and has pain in the wrists again and especially into the thumbs. Obstructiv e sleep apnea syndrome 97584964 G47.33 She declined CPAP as could not tolerate it. [id number] Arelis Black MD [facility] [address] [place] [address] 65566-896 7 08/28/2017 14:07:54 08/30/2017 14:29:34 Peripheral neuropathic pain 387088120 M79.2 Gastro-eso phageal reflux disease with ulceration 017365853 K21.0 Restless l egs syndrome 19788007 G25.81 Iron defic iency anemia 22889092 D50.9 Essential hypertension 50732250 I10 Diabetic p eripheral neuropathy 271400050 E11.40 Disorder d ue to type 2 diabetes mellitus 439171712 E11.8 History of splenectomy 750210558 Z90.81 Active or passive immunization 510831793 Z23 [id number] Arelis Black MD [facility] [address] [place] [address]805-493 7 01/17/2018 13:27:51 01/21/2018 08:25:36 Allergic rhinitis 55634820 J30.9 Gastroesop hageal reflux disease 834436581 K21.9 Restless l egs syndrome 73013560 G25.81 Hypothyroidism 61149489 E03.9 Depressive disorder 3548 9007 F32.9 Essential hypertension 57264624 I10 Anticoagulant therapy 18 3079733 Z79.01 History of recurrent deep vein thrombosis 1280580127 56788 Z86.718 Nausea 812630384 R11.0 Peripheral neuropathic pain 965951735 M79.2 History of gastric ulcer 687386036 Z87.11 History of gastrointestinal bleed 391076908 Z87.19 Screening for malignant neoplasm of colon 664799508 Z12.11 Urinary tr act infectious disease 09295082 N39.0 History of fundoplication 458276722 Z98.890 Hyperlipidemia 23132129 E78.5 Diabetic p eripheral neuropathy 532471104 E11.40 History of malignant neoplasm of uterine body 011625400 Z85.42 Osteoporosis 11968082 M8 1.0 Iron defic iency anemia 48778608 D50.9 Body mass index 40+ - severely obese 978984574 Z68.41 [id number] Arelis Black MD [facility] [address] [place] [address] 56754-843 7 04/25/2018 15:51:17 04/29/2018 17:24:43 Essential hypertension 00361915 I10 Anticoagulant therapy 18 4598387 Z79.01 Diabetic p eripheral neuropathy 028280379 E11.40 Depressive disorder 3548 9007 F32.9 Hypothyroidism 99929738 E03.9 Dysuria 02970759 R30.0 Anemia 271232558 D64.9 Body mass index 40+ - severely obese 994616147 Z68.41 [id number] Arelis Black MD [facility] [address] [place] [address], [address] [address] 7 05/28/2018 14:13:26 05/30/2018 08:11:01 Fatigue 82181909 R53.83 Chronic he adache disorder 608729436 G43.719 Anemia 539509081 D64.9 Syncope and collapse 309 968391 R55 Observed by her son and cardiac work up has been OK. Recurrent falls 36312066 2 R29.6 Chronic pain syndrome 37 2746924 G89.4 sees pain specialist and will need gabapentin refilled end of May. [id number] Arelis Black MD [facility] [address] [address] 7 01/09/2019 15:02:32 01/13/2019 09:47:08 Anemia 348142085 D64.9 Essential hypertension 30683618 I10 Uncontroll ed type 2 diabetes mellitus 809732337 E11.65 Hyperlipidemia 49671305 E78.5 Anticoagulant therapy 18 6392406 Z79.01 Health Concerns Section Related Observation LastModified by Organization Detai ls LastModified Time None Recorded Concern Status LastModified by Organization Details LastModified Time None Recorded Advance Directives Directive None Recorded Payers Insurance Date Sequence Insurance Name Policy Number Policy Duong Covered Member ID Duong Member ID Guarantor Name 01/09/2019 1 [place] Isaías Iglesias [id number] Elisa Iglesias 01/09/2019 1 [employer] (MEDICARE REPLACEMENT/ ADVANTAGE - HMO) Isaías Iglesias [id number] Isaías Iglesias 01/09/2019 1 [employer] - GOLD PLUS (MEDICARE REPLACEMENT/ ADVANTAGE - HMO) Isaías Iglesias [id number] Isaías Iglesias 01/01/2021 1 [place] Isaías Iglesias [id number] Elisa Iglesias Notes Date Note Type Note Provider Name and Address Organization Details Recorded Time 08/28/2017 text/html she was taking a lot of ibuprofen for an avulsion fracture in the shoulder and then had bleeding ulcer. She was also taking coumadin and she knew she was not supposed to mix those but she did anyway. She went to ER at [facility] and had GI bleed and was transferred to and scoped there and then went home and had abdominal pain and was admitted back to [facility] this past week until Sunday. They did rule out appendicitis and determined she likely had a virus. There is trouble with venous sticks and she wonders about a port a cath. She was advised by she needs to stay on coumadin for the Solavei filters. She cannot afford eliquis even with [facility]. She has a right frozen shoulder as well and that is doing a bit better as she is working on that BP is not well controlled on norvasc. She did get a tick bite in the summer as well and thinks she has felt bad since. she needs labs rechecked. Some refills are due Arelis Black MD [address] [facility], [address], [place], [address], [facility] 08/29/2017 22:11:58 04/25/2018 text/html has appointment with pulmonary/cardiolog y at [facility] 05/08 and has cut out metformin now since she finally got off prednisone and sugars are down to 70 She had a rectus sheath hematoma in hospital Was on Heliox in hospital and that helped without her requiring a ventilator She is requiring oxygen now and desat's quickly Ground glass appearance on xrays. Needs some lasix and her prozac was increased to 40 mg daily and to follow up labs She was too thin on coumadin over 5 and will need to recheck that as well. Arelis Black MD [address] [facility], [address], [place], [address], [facility] 04/28/2018 22:28:35 05/28/2018 text/html ROS as noted in the HPI she states she cannot do anything now and has periods of severe insomnia and headaches daily. She states her falls happen with her just collapsing when she stands up. Her son observed this and that is why she is here She is also having sudden episodes of incontinence as well She has gotten to the point where she is just staying in her house as she cannot get out. She feels like she is deteriorating significantly lately She hurts in all the extremties and not so much the joints. She also has significant neuropathy. She broke her right wrist and is being followed by ortho and is in a splint that is hurting and she has a significant ulnar deviation. She sees him this . She is having a constant potline monitor per Dr Rosales and that is OK So we recommend she see a neurologist. She is having fatigue to where she cannot function anymore. She does have significant anemia and repeat labs are due tomorrow She is taking iron and B 12 as well as vitamin D.. We will add folic acid as a supplement recommendation. Arelis Black MD [address] [facility], [address], [place], [address], [facility] 05/30/2018 07:09:52 01/09/2019 text/html she has had a BI bleed from over anti coagulation. she has a difficult time getting blood drawn They were going to transfuse and didnt because they couldnt get an IV line in There was no one to put in a pic line at [facility] The general surgeons advised her to talk to us about a port. She is weak from the anemia and has lower oxygen because of the anemia. Then she got lovenox and she became over anti coagulated and so had a hematoma in the abdomen That stabilized so they sent her home Compliant with B12 , iron and Vit D She has had multiple bleeds off and on for several years We discussed that she stop the coumadin for now. Epecially since she has a napoleon filter and it has been many years since she had a DVT She really want to get the rt knee replaced. Has been on prednisone for the breathing. We are going to stop the coumadin as she has a napoleon filter. She cancelled the neurology apt at [facility] as they required over 300.00 up front. She will continue the baby aspirin. Arelis Black MD [address] [facility], [address], [place], [address], [facility] 01/12/2019 18:23:00 OBGyn Episode Ob Episode Information Episode Created Date Number of Fetuses Patient Bloodtype Patient rh Status Prepregnancy Weight lbs Domestic Partner Domestic Partner Phone Father Name [employer]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 Status 06/18/20 11 1 CLOSED Fetus Data First Name Last Name Admitted to NICU Weight (g) Sex Living Outcome Pediatric Complications Fetus ID Race Codes Race Delivery Type F Full Term 1 Delmar Calculation Initial Delmar Date Initial Exam Date Initial Exam Provider Initial Ultrasound Date Last Menstrual Period Date Ultra Sound Weeks Gestation 0 Eighteen To Twenty Week Dlemar Update Ultra Sound Date Fundal Height At Umbil Quickening Date Ultra Sound Latest Weeks Gestation Final Delmar Confirmed By Final Delmar Confirmed Date Final Delmar Date Ultra Sound Latest Days Gestation 0 0 Menstrual History Last Menstrual Date Menses Monthly On Bcp Conception Prior Menses Frequency Hcg Plus Date Menarche Onset Age Delivery Information Delivery Date Delivery Type Labor Anesthesia Weeks Gestation Incision Type Labor Labor Length Hrs Delivered By Post Complications Tubal Sterilization Discharge Date Comments 7 40 baby had meningiti s Discharge Information Feeding Method Contraceptive Method Maternal HG B and HCT Levels Ob Episode Information Episode Created Date Number of Fetuses Patient Bloodtype Patient rh Status Prepregnancy Weight lbs Domestic Partner Domestic Partner Phone Father Name [employer]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 Status 06/18/20 11 1 CLOSED Fetus Data First Name Last Name Admitted to NICU Weight (g) Sex Living Outcome Pediatric Complications Fetus ID Race Codes Race Delivery Type , Spontane ous 2 Delmar Calculation Initial Delmar Date Initial Exam Date Initial Exam Provider Initial Ultrasound Date Last Menstrual Period Date Ultra Sound Weeks Gestation 0 Eighteen To Twenty Week Delmar Update Ultra Sound Date Fundal Height At Umbil Quickening Date Ultra Sound Latest Weeks Gestation Final Delmar Confirmed By Final Delmar Confirmed Date Final Delmar Date Ultra Sound Latest Days Gestation 0 0 Menstrual History Last Menstrual Date Menses Monthly On Bcp Conception Prior Menses Frequency Hcg Plus Date Menarche Onset Age Delivery Information Delivery Date Delivery Type Labor Anesthesia Weeks Gestation Incision Type Labor Labor Length Hrs Delivered By Post Complications Tubal Sterilization Discharge Date Comments 5 21 Discharge Information Feeding Method Contraceptive Method Maternal HG B and HCT Levels Ob Episode Information Episode Created Date Number of Fetuses Patient Bloodtype Patient rh Status Prepregnancy Weight lbs Domestic Partner Domestic Partner Phone Father Name [employer]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 Status 06/18/20 11 1 CLOSED Fetus Data First Name Last Name Admitted to NICU Weight (g) Sex Living Outcome Pediatric Complications Fetus ID Race Codes Race Delivery Type Full Term 3 Delmar Calculation Initial Delmar Date Initial Exam Date Initial Exam Provider Initial Ultrasound Date Last Menstrual Period Date Ultra Sound Weeks Gestation 0 Eighteen To Twenty Week Delmar Update Ultra Sound Date Fundal Height At Umbil Quickening Date Ultra Sound Latest Weeks Gestation Final Delmar Confirmed By Final Delmar Confirmed Date Final Delmar Date Ultra Sound Latest Days Gestation 0 0 Menstrual History Last Menstrual Date Menses Monthly On Bcp Conception Prior Menses Frequency Hcg Plus Date Menarche Onset Age Delivery Information Delivery Date Delivery Type Labor Anesthesia Weeks Gestation Incision Type Labor Labor Length Hrs Delivered By Post Complications Tubal Sterilization Discharge Date Comments 8 40 preeclam p marge Discharge Information Feeding Method Contraceptive Method Maternal HG B and HCT Levels
[2025-08-05] MEDS: ISOTOPE MYOVIEW (PER STUDY) 1 DOSE IV (09:28)
[2025-08-05] MEDS: SODIUM CHLORIDE 0.9% 10ML SYR (RAD ONLY) 10 ML IV (09:28)
--- NOTE | 2025-08-05 09:37 | PC.NURSE ---
Patient presented to Cardiac stress lab for Lexiscan Myoview with bilateral wheezing throughout lung lui. Suzie Horta APRN, notified, orders received and implemented for albuterol 2.5 mg neb treatment. Post treatment wheezing remains unimproved. Phoned Suzie Horta APRN to come assess patient, after assessment by Suzie Horta APRN, it was felt to be in the patients best interest to transfer her to ER for wheezing/chest discomfort and generalized malaise, as wheezing is direct contraindication for administering Lexiscan. Patient is agreeable to go for evaluation and assessment in the ER. Patient reports she has not felt good all week. Transported patient to ER via wheelchair, patients own oxygen @ 2.5 LPM via nasal cannula.-Bertha CHUNGN, RN
[2025-08-05 16:47] LABS: POC Glucose,Bedside 179 gm/dL (70-110)
== END 2025-08-05 23:59 | disposition home or self-care (01) ==
LOC: RAD 07:26
PROVIDERS: PCP Nurse Practitioner Family; Visit Provider Internal Medicine
DX: I21.A1 Myocardial infarction type 2 (principal); I25.10 Atherosclerotic heart disease of native coronary artery without angina pectoris; I11.0 Hypertensive heart disease with heart failure; I50.33 Acute on chronic diastolic (congestive) heart failure; E03.8 Other specified hypothyroidism; E78.2 Mixed hyperlipidemia
CPT/HCPCS: 78452; 82962; 93306; A9502

== ENCOUNTER 2025-08-05 09:25 | Observation (INO) | payer MEDICARE, SELFPAY ==
[2025-08-05] VITALS (9 sets, daily range): BP systolic 120–134; BP diastolic 58–89; PULSE 79–101; RESP 16–22; TEMP 36.6–36.9; O2SAT 93–98; BMI 40.0
--- OUTSIDE RECORDS SUMMARY | 2025-08-05 09:39 | XMS_ITS | Clinical Summary ---
Author Organization [facility] Address [address] [place] [address] Phone Care Team Providers Care Forging Machine Hand Name Role Phone Bashir Lombardi MD [ ] Conditions or Problems Problem Name Problem Code Onset Date Status Entry Date Provider Comment Standard Description Annotate OBSTRUCTIVE SLEEP APNEA 71063684 (SNOMED CT) 01/01 Inactive 01/01 Sridevi Bishop Obstructive sleep apnea syndrome LONG-TERM (CURRENT) USE OF ANTICOAGULAN TS 301109075 (SNOMED CT) 07/02 Inactive 07/02 Sridevi Nordan Anticoagulant drug monitoring COPD 39838310 (SNOMED CT) 10/24 Active 10/24 Sridevi Nordan Chronic obstructive pulmonary disease Headache 51816033 (SNOMED CT) 10/24 Active 10/24 Sridevi Nordan Headache Hypoxia 606703458 (SNOMED CT) 10/24 Active 10/24 Sridevi Nordan Hypoxia Pneumonia 222109019 (SNOMED CT) 10/24 Active 10/24 Sridevi Nordan Pneumonia CHRONIC OSTEOMYELITI S RIGHT KNEE M86.669 (ICD-10-CM ) 01/01 Inactive 11/24 Sridevi Dario Other chronic osteomyelitis, unspecified tibia and fibula CHRONIC RIGHT KNEE PAIN M25.569 (ICD-10-CM ) 07/02 Inactive 07/02 Sridevi Nordroselia Pain in unspecified knee PRIMARY HYPERCOAGULA BLE STATE 26420788 (SNOMED CT) 07/02 Inactive 07/02 Sridevi Nordroselia Hypercoagulabil ity state HX OF SPLENECTOMY 473189717 (SNOMED CT) 11/24 Inactive 11/24 Sridevi Bishop H/O splenectomy ANXIETY 500859518 (SNOMED CT) 07/02 Inactive 07/02 Sridevi Edyroselia Anxiety disorder LONG-TERM (CURRENT) USE OF ANTICOAGULAN TS 641537724 (SNOMED CT) 07/02 Removed 07/02 Gisselle W Anticoagulant drug monitoring PRIMARY HYPERCOAGULA BLE STATE 14371277 (SNOMED CT) 07/02 Removed 07/02 Gisselle W Hypercoagulabil ity state COUMADIN THERAPY 767046971 (SNOMED CT) 11/24 Correction 11/24 Gisselle W Warfarin therapy started DM II E11.9 (ICD-10-CM ) 01/01 Active 01/01 Gisselle W Type 2 diabetes mellitus without complications ANXIETY 896127360 (SNOMED CT) 07/02 Removed 07/02 Sheron Patel RN Anxiety disorder CHRONIC RIGHT KNEE PAIN M25.569 (ICD-10-CM ) 07/02 Removed 07/02 Sheron Patel RN Pain in unspecified knee WHEEZING 30843983 (SNOMED CT) 01/01 Resolved 01/01 Sheron Patel RN Wheezing PNEUMONIA 090005937 (SNOMED CT) 01/01 Resolved 01/01 Sheron Patel RN Pneumonia ACUTE URI 65721625 (SNOMED CT) 01/01 Resolved 01/01 Sheron Patel electrolytic etcher upper respiratory infection OBSTRUCTIVE SLEEP APNEA 55942149 (SNOMED CT) 01/01 Removed 01/01 Gisselle W Obstructive sleep apnea syndrome ACUTE URI 19162407 (SNOMED CT) 01/01 Removed 01/01 Gisselle W Acute upper respiratory infection BORDERLINE DM II E11.9 (ICD-10-CM ) 01/01 Correction 01/01 W Type 2 diabetes mellitus without complications CHRONIC OSTEOMYELITI S RIGHT KNEE M86.669 (ICD-10-CM ) 01/01 Removed 11/24 Gisselle W Other chronic osteomyelitis, unspecified tibia and fibula PNEUMONIA 330608151 (SNOMED CT) 01/01 Removed 01/01 Gisselle W Pneumonia WHEEZING 48021395 (SNOMED CT) 01/01 Removed 01/01 Gisselle W Wheezing RIGHT KNEE INFECTION 682.6 (ICD-9-CM) 11/24 Resolved 11/24 Gisselle W Cellulitis and abscess of leg, except foot CIRRHOSIS OF LIVER WITHOUT MENTION OF ALCOHOL (SNOMED CT) 11/24 Resolved 11/24 Gisselle W Cirrhosis of liver PRIMARY HYPERCOAGULA BLE STATE 00479704 (SNOMED CT) 11/24 Correction 11/24 Gisselle W Hypercoagulabil ity state SECONDARY HYPERCOAGULA BLE STATE 73638560 (SNOMED CT) 11/24 Correction 11/24 Gisselle W Hypercoagulabil ity state CHRONIC OSTEOMYELITI S, LOWER LEG 394073129 (SNOMED CT) 11/24 Correction 11/24 Karina Sanford Chronic osteomyelitis of lower leg RIGHT KNEE INFECTION 682.6 (ICD-9-CM) 11/24 Removed 11/24 Karina Sanford Cellulitis and abscess of leg, except foot LEUKOCYTOSIS 689981684 (SNOMED CT) 11/24 Active 11/24 Karina Sanford Leukocytosis HX OF MRSA Z86.14 (ICD-10-CM ) 11/24 Active 11/24 Karina Sanford Personal history of Methicillin resistant Staphylococcus aureus infection SECONDARY HYPERCOAGULA BLE STATE 35121097 (SNOMED CT) 11/24 Removed 11/24 Karina Sanford Hypercoagulabil ity state PRIMARY HYPERCOAGULA BLE STATE 03471025 (SNOMED CT) 11/24 Removed 11/24 Karina Sanford Hypercoagulabil ity state COUMADIN THERAPY 395334631 (SNOMED CT) 11/24 Removed 11/24 Karina Sanford Warfarin therapy started HX OF SPLENECTOMY 321178416 (SNOMED CT) 11/24 Removed 11/24 Karina Sanford H/O splenectomy CIRRHOSIS OF LIVER WITHOUT MENTION OF ALCOHOL (SNOMED CT) 11/24 Removed 11/24 Karina Sanford Cirrhosis of liver Medications Medication Instructions Start Date Stop Date Generic Name [facility] Provider DOXYCYCLINE HYCLATE 100 MG CAPS DOXYCYCLINE HYCLATE 03698762236 Anetra D Ludmila PROVENTIL HFA 108 (90 Base) MCG/ACT INHALATION AEROSOL SOLUTION ALBUTEROL SULFATE 37212582814 Anetra D Ludmila NYSTATIN OINT NYSTATIN OINT 56392309075 Anetra D Ludmila NORVASC TABS AMLODIPINE BESYLATE TABS 21466428323 Anetra D Ludmila AMLODIPINE BESYLATE 10 MG TABS AMLODIPINE BESYLATE 52768082354 Anetra D Ludmila VITAMIN B-12 TABS CYANOCOBALAMIN TABS 11521050582 Rola Cruz REQUIP 0.5 MG ORAL TABLET ROPINIROLE HCL 43326578829 Rola Cruz PROTONIX 40 MG PACK PANTOPRAZOLE SODIUM 14938159033 Rola Cruz PREDNISONE 2.5 MG TABS PREDNISONE 40203972888 Rola Cruz PERCOCET 10-325 MG TABS OXYCODONE-ACETAM INOPHEN 48745883363 Rola Cruz AMLODIPINE BESYLATE 10 MG TABS AMLODIPINE BESYLATE 54820940115 Rola Cruz NITROSTAT 0.4 MG SUBL NITROGLYCERIN 40398733215 Rola Villalpandoty NEURONTIN 300 MG CAPS GABAPENTIN 98848340771 Rola Villalpandoty METHADONE HCL TABS METHADONE HCL TABS 45439108037 Rola Villalpandoty LORAZEPAM 0.5 MG TABS LORAZEPAM 69762259433 Rola Cruz LEVOTHYROXINE SODIUM 50 MCG TABS LEVOTHYROXINE SODIUM 98824249431 Rola rCuz LASIX 20 MG TABS FUROSEMIDE 07445202510 Rola Cruz VERAMYST 27.5 MCG/SPRAY NASAL SUSPENSION FLUTICASONE FUROATE 33701493879 Rola Cruz CALCIUM-VITAMIN D CALCIUM-VITAMIN D TABS 72061035194 Rola Cruz CALCITONIN (SALMON) 200 UNIT/ACT SOLN CALCITONIN (SALMON) 14777543228 Rola Villalpandoty ASPIRIN 81 MG ORAL TABLET ASPIRIN 77082278205 Rola Cruz PROTONIX 40 MG PACK PANTOPRAZOLE SODIUM 75903805957 Rola Cruz COUMADIN 3 MG ORAL TABLET WARFARIN SODIUM 64668319702 Rola Cruz ACCUNEB NEBU ALBUTEROL SULFATE NEBU 14067736423 Rola Cruz TESSALON PERLES 100 MG ORAL CAPSULE BENZONATATE 14199163815 Rola Cruz DOXYCYCLINE HYCLATE 100 MG CAPS DOXYCYCLINE HYCLATE 90133154893 Rola Cruz VITAMIN B-12 50 MCG TABS CYANOCOBALAMIN 32846318654 Rola Cruz PROTONIX 40 MG TBEC PANTOPRAZOLE SODIUM 28415154363 Rola Cruz AMLODIPINE BESYLATE TABS AMLODIPINE BESYLATE TABS 18842591747 Rola Cruz PROTONIX 40 MG PACK PANTOPRAZOLE SODIUM 79186767494 Rola Cruz AMLODIPINE BESYLATE 10 MG TABS AMLODIPINE BESYLATE 50782225959 Rola Cruz NITROSTAT 0.4 MG SUBL NITROGLYCERIN 73939340084 Rola Cruz LASIX 20 MG TABS FUROSEMIDE 25962937039 Rola Cruz FLONASE 50 MCG/ACT NASAL SUSPENSION FLUTICASONE PROPIONATE 01899019128 Rola Cruz CALCIDOL 8000 UNIT/ML ORAL SOLUTION ERGOCALCIFEROL 45217221245 Rola Cruz CALCIUM-VITAMIN D CALCIUM-VITAMIN D TABS 51808978809 Rola Cruz PREDNISONE 5 MG TABS take two each morning PREDNISONE 88610729019 Rola Cruz SYNTHROID 100 MCG TABS LEVOTHYROXINE SODIUM 09991882448 Rola Cruz TYLENOL 325 MG TABS ACETAMINOPHEN 98515057188 Rolarosa Villalpandoty REQUIP 0.5 MG ORAL TABLET ROPINIROLE HCL 43158786708 Rola Nancy PERCOCET TABS OXYCODONE-ACETAM INOPHEN TABS 94694806223 Rola Cruz NEURONTIN 300 MG CAPS GABAPENTIN 87902227124 Rola Villalpandoty METHADONE HCL TABS METHADONE HCL TABS 08614175240 Rola Cruz ATIVAN TABS LORAZEPAM TABS 74112993408 Rola Cruz COUMADIN TABLET WARFARIN SODIUM TABS 32371145434 Rola Cruz ASPIR-LOW TABLET DELAYED RELEASE ASPIRIN TBEC 96175413954 Rola Cruz ACCUNEB NEBU ALBUTEROL SULFATE [facility] 44276084788 Anetra D Keys TESSALON PERLES 100 MG ORAL CAPSULE BENZONATATE 00757931286 Anetra D Keys DOXYCYCLINE HYCLATE 100 MG CAPS DOXYCYCLINE HYCLATE 64498802101 Anetra D Keys VITAMIN B-12 50 MCG TABS CYANOCOBALAMIN 05044272003 Anetra D Keys PROTONIX 40 MG TBEC PANTOPRAZOLE SODIUM 02495212946 Anetra D Keys AMLODIPINE BESYLATE TABS AMLODIPINE BESYLATE TABS 00340006775 Anetra D Keys PROTONIX 40 MG PACK PANTOPRAZOLE SODIUM 38152363101 Anetra D Keys AMLODIPINE BESYLATE 10 MG TABS AMLODIPINE BESYLATE 69216021355 Anetra D Keys NITROSTAT 0.4 MG SUBL NITROGLYCERIN 91849821964 Anetra D Keys LASIX 20 MG TABS FUROSEMIDE 18637954032 Anetra D Keys FLONASE 50 MCG/ACT NASAL SUSPENSION FLUTICASONE PROPIONATE 37488294102 Anetra D Keys CALCIDOL 8000 UNIT/ML ORAL SOLUTION ERGOCALCIFEROL 26146561098 Anetra D Keys CALCIUM-VITAMIN D CALCIUM-VITAMIN D TABS 66541584442 Anetra D Keys FLUTICASONE PROPIONATE 50 MCG/ACT SUSP FLUTICASONE PROPIONATE 99960012185 Anetra D Keys PREDNISONE 5 MG TABS take two each morning PREDNISONE 01064524127 Bashir Lombardi MD SYNTHROID 100 MCG TABS LEVOTHYROXINE SODIUM 83017928145 Tamia Palm RN PROTONIX 40 MG TBEC PANTOPRAZOLE SODIUM 82780775171 Tamia Palm RN AMLODIPINE BESYLATE 10 MG TABS AMLODIPINE BESYLATE 86730970656 Tamia Palm RN NITROSTAT 0.6 MG SUBL NITROGLYCERIN 11009910647 Tamia Palm RN LEVOTHROID TABS LEVOTHYROXINE SODIUM TABS 85788332427 Tamia Palm RN LASIX TABS FUROSEMIDE TABS 76032705943 Tamia Palm RN CALCIUM 500 TABLET CALCIUM-MAGNESIU M-VITAMIN D TABS 36339036742 Tamia Ladwig RN TYLENOL 325 MG TABS ACETAMINOPHEN 75766483013 Anetra D Keys REQUIP 0.5 MG ORAL TABLET ROPINIROLE HCL 24228928651 Anetra D Keys PROTONIX 40 MG TBEC PANTOPRAZOLE SODIUM 31038060577 Anetra D Keys PERCOCET TABS OXYCODONE-ACETAM INOPHEN TABS 53086439579 Anetra D Keys AMLODIPINE BESYLATE 10 MG TABS AMLODIPINE BESYLATE 73202993266 Anetra D Keys NITROSTAT 0.6 MG SUBL NITROGLYCERIN 47223057786 Anetra D Keys NEURONTIN 300 MG CAPS GABAPENTIN 27444606301 Anetra D Keys METHADONE HCL TABS METHADONE HCL TABS 46017528754 Anetra D Keys ATIVAN TABS LORAZEPAM TABS 81006856284 Anetra D Keys LEVOTHROID TABS LEVOTHYROXINE SODIUM TABS 33298860092 Anetra D Keys LASIX TABS FUROSEMIDE TABS 31412381754 Anetra D Keys FLUTICASONE PROPIONATE 50 MCG/ACT SUSP FLUTICASONE PROPIONATE 32611710201 Anetra D Keys COUMADIN TABLET WARFARIN SODIUM TABS 46851860539 Anetra D Ekys CALCIUM 500 TABLET CALCIUM-MAGNESIU M-VITAMIN D TABS 36472636947 Anetra D Keys ASPIR-LOW TABLET DELAYED RELEASE ASPIRIN TBEC 81199436743 Anetra D Keys Medications Administered No information [...] Procedures Code Procedure Name Date Entry Date CPT-86074 CMP CPT-18366 CBC with Differential 11/25 CPT-46129 Sedimentation Rate (ESR) 201 11/26/10 Vital Signs [...]
--- OUTSIDE RECORDS SUMMARY | 2025-08-05 09:39 | XMS_ITS | Encounter Summary ---
Author Organization [facility] Address [address] [place] [address] Care Team Providers Care Tower Director Name Role Phone Robina Downey APRN Primary Care Provider [phone] Encounter Details Date Type Department Care Team (Late st Contact Info) Description 04/02/2015 External CPT II HEALTH INFORMATION PROVIDER - [facility] Social History Tobacco Use [...] documented as of this encounter Care Teams Tower Director Relationship Specialty Start Date End Date Robina Downey APRN [address] [place] [address] PCP - General Nurse Practitioner 07/19/19 documented as of this encounter
--- OUTSIDE RECORDS SUMMARY | 2025-08-05 09:40 | XMS_ITS | Clinical Summary ---
Author Organization [facility] Address [address] [place] [address] Care Team Providers Care Animal Control Supervisor Name Role Phone Robina Downey APRN Primary Care Provider [phone] Allergies Active Allergy Reactions Criticality Noted Date [...] Breakfast. Active vitamin D (ERGOCALCIFEROL) 1.25 MG (23371 UT) capsule capsule Take 2 capsules by [...] 12/03/2022 Non-cardiac chest pain 12/03/2022 Overview (12/05/2022): [facility] admission for chest pain with trivial hstroponin [...] bridging Lovenox Coronary artery disease invo lving [place] coronary artery of [place] heart with angina pectoris 11/22/2016 Overview (12/05/2022): [...] patent stents. 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 On chronic prednisone Morbid obesity 04/26/2016 Resolved Problems Problem Noted Date Diagnosed Date Resolved Date Unstable angina 12/03/2022 12/05/2022 Overview (12/04/2022): Added automatically from request for surgery [id number] Acute on chronic respiratory failure with hypoxia [...] (03/22/2021): Added automatically from request for surgery [id number] Acute on chronic congestive heart failure 02/02/2021 [...] history exists Medical Devices Implanted Type Area Cuff Presser Device Identifier Shelf Expiration Date Model / Serial / Lot Implant-02/10/20 16 Implanted:02/09 (Quantity not on file) Implant REVEAL LINQ / [id number] / Implant-02/10/20 16 Implanted:Qty: 1 on 02/10/2016 Implant MEDTRONIC MEDTRONIC LINQ / [id number] / Reveal Linq-02/10/2016 Implanted:02/09 (Quantity not on file) MEDTRONIC LINQ / [id number] / Stnt Xience Camrela Everolimus Simba 4x38mm - [id number] Implanted:Qty: 1 on 02/02/2021 by Jake Pradhan IV, MD at [facility] [id number] / / [id number] Stnt Xience Carmela Everolimus Simba 2.5x28mm - [id number] Implanted:Qty: 1 on 02/02/2021 by Jkae Pradhan IV, MD at [facility] [id number] / / [id number] Procedures Procedure Name Priority Date/Time Associated Diagnosis Comments LIPID PANEL Routine 12/06/2022 11:00 AM EST HEMOGLOBIN A1C Add-On 12/05/2022 7:39 AM EST POCT OCCULT BLOOD STOOL STAT 10/10/2017 3:27 AM EST from Last 3 Months or Most Recently Relevant to Health Maintenance Results * Lipid Panel (12/06/2022 11:00 AM EST) Total Cholesterol 106 0 - 200 mg/dL 12/06/2022 12:14 PM EST [facility] Triglycerides 114 0 - 150 mg/dL 12/06/2022 12:14 PM EST [facility] HDL Cholesterol 41 40 - 60 mg/dL 12/06/2022 12:14 PM EST [facility] LDL Cholesterol 44 0 - 100 mg/dL 12/06/2022 12:14 PM EST [facility] VLDL Cholesterol 21 5 - 40 mg/dL 12/06/2022 12:14 PM EST [facility] LDL/HDL Ratio 1.03 12/06/2022 12:14 PM EST [facility] Blood Venipuncture / Unknown 12/06/2022 11:00 AM EST 12/06/2022 11:33 AM EST Narrative [facility] - 12/06/2022 12:14 PM EST [...] MD LAB BLOOD ORDERABLES Final Res ult [facility]
[address] [place] [address], * (ABNORMAL) Hemoglobin A1c (12/05/2022 7:39 AM EST) Hemoglobin A1C 8.10(H) 4.80 - 5.60 % 12/05/2022 11:03 AM EST [facility] Blood Venipuncture / Unknown 12/05/2022 7:39 AM EST 12/05/2022 7:48 AM EST Narrative [facility] - 12/05/2022 11:03 AM EST Hemoglobin A1C Ranges: Increased Risk for Diabetes 5.7% to 6.4% Diabetes >= 6.5% Diabetic Goal < 7.0% Shay Trujillo PA-C LAB BLOOD ORDERABLES Final R esult [facility]
[address] [id number], * POCT Occult Blood, stool (10/10/2017 3:27 AM EST) Fecal Occult Blood Negative Negative [facility] Lot Number [id number] [facility] Expiration Date 2019 [facility] DEVELOPER [address] [id number] [facility] DEVELOPER EXPIRATION DATE 2019 [facility] Positive Control Positive Positive [facility] Negative Control Negative Negative [facility] Stool Specimen from rectum / Unknown 10/10/2017 3:27 AM EST Sb Kitchen MD POINT OF CARE TEST ORDERABLE S Final Result [facility]
[address] [place] [address], from Last 3 Months or Most Recently [...] Of Support Discussed With: Patient Care Teams Animal Control Supervisor Relationship Specialty Start Date End Date Robina Downey APRN [address] [place] [address] PCP - General Nurse Practitioner 07/19/19
--- OUTSIDE RECORDS SUMMARY | 2025-08-05 09:40 | XMS_ITS | Clinical Summary ---
Author Organization [facility] Address [address] [place] [address] Care Team Providers Care Drafting Clerk Name Role Phone Shayan Robina Vince VELIZ Primary Care Provider [phone] Allergies Active Allergy Reactions Criticality Noted Date [...] disease) 05/2017 Coronary artery disease invo lving [place] coronary artery of [place] heart without angina pectoris 11/22/2016 Overview (11/21/2021): [...] Description 09/16/2025 1:00 PM EST Office Visit [facility] [address] [place] [place] [address] Bashir Ortiz MD [address] [place] [address] Health Maintenance Due Date Last [...] A1C 06/12/202210/2021, 11/21/2021, 03/24/2021, Additional history exists [id number] Vaccine ( season) 2025 07/21/2021, 01/13/2021, 12/16/2020 [...] this topic Medical Devices Implanted Type Area Horticulture Teacher Device Identifier Shelf Expiration Date Model / Serial / Lot Medtronic Reveal- 016 Implanted: (Quantity not on file) Implantable Loop Recorder Left: Chest [id number] S / / Lens Sn60wf 16.5 - [id number] Implanted:Qty : 1 on 03/06/2022 by Bashir Ortiz MD at [facility] Right: Eye [employer]-[id number] 08/10/2026 SN60WF.16 5 / [id number] / [id number] Lens Sn60wf 17 - [id number] Implanted:Qty : 1 on 09/11/2022 by Bashir Ortiz MD at [facility] Left: Eye [employer]-[id number] 04/07/2027 SN60WF.17 0 / [id number] / [id number] Procedures Procedure Name Priority Date/Time Associated [...] Adults <6.0% Children and Adolescents <7.5% Source: [place] [employer]. Standards of medical care in diabetes,2017. Diabetes Care.2017:40 (suppl 1):S1-S135. HbA1c assay performed by an ion-exchange chromatography method that is certified traceable to the DCCT. us Glenn Parker MD LAB BLOOD ORDERABLES Final Res ult [facility] [address] [place] [address] from Last 3 Months or Most Recently Relevant to Health Maintenance Insurance MEDICARE Advance Directives * Full Code (Latest Code Status on File) Date Activated Date Inactivated Comments 11/21/2021 8:51 PM 11/22/2021 7:39 PM Question Answer Comments Patient has decision-making capacity? Yes Care Teams Drafting Clerk Relationship Specialty Start Date End Date Robina Downey APRN [address] [place] [address] PCP - General 02/25/21
[2025-08-05 09:44] LABS: Coronavirus 19, PCR Not Detected (NotDetected); Influenza A, PCR Not Detected (NotDetected); Influenza B, PCR Not Detected (NotDetected)
--- NOTE | 2025-08-05 09:50 | XR_ITS ---
FINAL REPORT CLINICAL HISTORY: SHortness of breath COMPARISON: 07/03/2025 FINDINGS: The lung lui are hypoinflated. No acute pulmonary opacity is present. There is no evidence of effusion or pneumothorax. Mediastinum is unremarkable. Heart size is normal. IMPRESSION: No acute abnormality. Reviewed, Interpreted and Dictated by Jonnathan Solano MD Transcribed by Cristela Odom Authenticated and . [facility]
[2025-08-05] MEDS: MAGNESIUM SULFATE IN WATER 2 GM/50 ML PIGGYBACK IV (09:56)
--- NOTE | 2025-08-05 09:58 | ECG_ITS ---
APPROVED REPORT Exam: Resting ECG HR:94 bpm ECG Measurements Heart Rate 94 AXES VA 172 P 65 QRSd 118 QRS -70 QT 384 T 61 QTc 436 Conclusion SINUS RHYTHM INCOMPLETE RIGHT BUNDLE BRANCH BLOCK [90+ ms QRS DURATION, TERMINAL R IN V1/V2, 40+ ms S IN I/aVL/V4/V5/V6] LEFT ANTERIOR FASCICULAR BLOCK [QRS AXIS <= -45, QR IN I, RS IN II] ABNORMAL ECG UNCONFIRMED REPORT Electronically signed by : MASOOD CRUZ, 08/06/2025 06:45:41
--- NOTE | 2025-08-05 10:01 | PC.NURSE ---
FSBS 113
[2025-08-05] MEDS: IPRATROPIUM/ALBUTEROL 3 ML NEB 9 ML IH (10:05)
--- NOTE | 2025-08-05 10:05 | [facility].EDCP ---
Discharge Plan Disposition Patient Disposition: Admitted Condition: Fair Clinical Impressions Clinical Impression: Hyponatremia, Acute hypoxic respiratory failure Discharge ED Provider: Chris Christianson HPI General Chief Complaint: Shortness of Breath/Dyspnea Stated Complaint: wheezing, dizziness, cp Time Seen by Provider: 08/05/25 09:42 Mode of Arrival: Wheelchair Source of Information: Patient Description of Symptoms (Recalled from ER Triage Doc. by RN): While having a stress test done patient began wheezing, complaining of chest pain that has been ongoing, increased weakness and decreased urine output. History of Present Illness HPI narrative: Maricel Cooney is a 70F with a history of With a history of diabetes interstitial lung disease, hypertension, hyperlipidemia, heart failure with preserved ejection fraction on Bumex and Lasix, diabetes who presents to the emergency department for shortness of breath and chest pain. Patient states that she has had chest pain for some time and was actually here at the hospital getting ready to have a stress test performed when she was noted to be wheezy with increased work of breathing. She states that this has been worse over the last few days as she has been more active. She normally wears 2 L nasal cannula at home but has been hypoxic at home and has increased her oxygen at home. She states that she was told not to take steroids by her infrastructure design engineer, Dr. carpenter, but has been using Dulera at home without significant relief. She received an albuterol nebulizer treatment when she arrived for her stress test, however she did not undergo stress testing due to her symptoms and was sent to the emergency department Related Data Home Medications ?Medication ?Instructions ?Recorded ?Confirmed aspirin 81 mg chewable tablet 81 mg PO DAILY 11/27/19 08/05/25 gabapentin 800 mg tablet 800 mg PO QID fibromyalgia pain 11/27/19 08/05/25 levothyroxine 50 mcg tablet 50 mcg PO DAILY 11/27/19 08/05/25 methadone 10 mg tablet 10 mg PO 5XDAY fibromyalgia pain 11/27/19 08/05/25 ondansetron HCl 8 mg tablet 8 mg PO TIDP PRN Nausea 11/27/19 08/05/25 pantoprazole 40 mg tablet,delayed 40 mg PO DAILY 11/28/19 08/05/25 release clopidogrel 75 mg tablet 75 mg PO DAILY 07/07/22 08/05/25 empagliflozin 25 mg tablet 25 mg PO DAILY 07/07/22 08/05/25 (Jardiance) ergocalciferol (vitamin D2) 1,250 50,000 unit PO WEEKLY Supplement 12/02/23 08/05/25 mcg (50,000 unit) capsule (Vitamin D2) escitalopram oxalate 20 mg tablet 20 mg PO DAILY 12/02/23 08/05/25 fluticasone propionate 50 1 spray intranasal BID 12/02/23 08/05/25 mcg/actuation nasal spray,suspension insulin aspart U-100 100 unit/mL 10 unit SQ TIDWMEAL Diabetes 12/02/23 07/16/25 (3 mL) subcutaneous pen (Novolog FlexPen U-100 Insulin aspart) magnesium oxide 400 mg PO DAILY Supplement 12/02/23 08/05/25 nitroglycerin 0.4 mg sublingual 0.4 mg sublingual Q5MINP PRN Chest 12/02/23 08/05/25 tablet Pain insulin aspart U-100 100 unit/mL 1 sliding scale dose SQ 08/11/24 08/05/25 subcutaneous solution (Novolog USEASDIRECTD U-100 Insulin aspart) insulin glargine 100 unit/mL 45 unit SQ HS 08/11/24 08/05/25 subcutaneous solution (Lantus U-100 Insulin) bisoprolol fumarate 5 mg tablet 2.5 mg PO DAILY 08/14/24 08/05/25 bupropion HCl 300 mg 24 hr tablet, 300 mg PO DAILY 07/02/25 08/05/25 extended release spironolactone 25 mg tablet 25 mg PO DAILY 07/02/25 08/05/25 bumetanide 2 mg tablet 2 mg PO DAILY 07/16/25 08/05/25 metolazone 2.5 mg tablet 2.5 mg PO WEEKLY 08/05/25 08/05/25 Previous Rx's ?Medication ?Instructions ?Recorded mometasone-formoterol HFA 100 2 puff inhalation BID 90 days #13 08/11/24 mcg-5 mcg/actuation aerosol grams inhaler (Dulera) atorvastatin 40 mg tablet 40 mg PO DAILY #30 tabs 07/16/25 Allergies Allergy/AdvReac Type Severity Reaction Status Date / Time Cephalosporins Allergy Unknown Verified 07/16/25 15:08 allergy reaction meperidine Allergy Unknown Verified 07/16/25 15:08 allergy reaction NSAIDS (Non-Steroidal Allergy Unknown Verified 07/16/25 15:08 Anti-Inflamma allergy reaction pregabalin Allergy Unknown Verified 07/16/25 15:08 allergy reaction Sulfa (Sulfonamide Allergy Unknown Verified 07/16/25 15:08 Antibiotics) allergy reaction sumatriptan Allergy Unknown Verified 07/16/25 15:08 allergy reaction tizanidine Allergy Unknown Verified 07/16/25 15:08 allergy reaction enoxaparin (From Lovenox) AdvReac Unknown Verified 07/16/25 15:08 allergy reaction nalbuphine AdvReac Unknown Verified 07/16/25 15:08 allergy reaction promethazine AdvReac Unknown Verified 07/16/25 15:08 allergy reaction PFSH PFSH Disclaimer: The information contained in this section may have been updated after the patient was seen, as this information can be updated by other users. Medical History HLD (hyperlipidemia) HTN (hypertension) Edema (HFpEF) heart failure with preserved ejection fraction Chronic respiratory failure with hypoxia Dyspnea on exertion ILD (interstitial lung disease) Fibrosis of lung Lupus disease of lung Acute and chronic respiratory failure with hypoxia History of ITP History of lupus Rotator cuff impingement syndrome History of anemia History of left heart catheterization (LHC) Cataract Kidney disease Thyroid disease Asthma Anemia SVT (supraventricular tachycardia) MRSA (methicillin resistant Staphylococcus aureus) HTN (hypertension) GI bleed Gastroparesis GERD (gastroesophageal reflux disease) DVT (deep venous thrombosis) Arrhythmia Endometrial cancer Heart attack Oxygen dependent COPD (chronic obstructive pulmonary disease) Diabetes Addisons disease Surgical History History of splenectomy History of esophagogastroduodenoscopy (EGD) History of carpal tunnel surgery History of [place] fundoplication History of right heart catheterization (RHC) History of hysterectomy History of colonoscopy History of cholecystectomy Family History Other Family history of anemia Family history of asthma Family history of bleeding disorder Family history of cancer Family history of diabetes mellitus Family history of kidney disease Family history of thyroid disease Social History (Updated 08/05/25 @ 13:38 by Karina Dillard RN) Smoking Status: Never smoker alcohol intake: never current occupational status: retired Travel in the last 8 weeks?: None household members: none housing: house lives independently: Yes marital status: education level: college diet: diabetic caffeine: Yes Have you lived/traveled outside [place] in past 30 days?: No Contact w/someone who lives/traveled outside [place] past 30 days?: No Exposure to someone with infectious disease in past 14 days?: No Do you have a fever (greater than 100.4 F or 38 C)?: No Have you tested positive for COVID-19?: No Exposed to someone with COVID-19 in past 14 days?: No Do you have a sore throat?: No Do you have a cough?: No Do you have any weakness?: No Do you have any diarrhea?: No Are you experiencing any unusual bleeding?: No Do you have any muscle aches/pain?: No Do you have any abdominal pain?: No Are you experiencing loss of taste or smell?: No Other Medical History Have you received the Flu Vaccine for this season: No Have you received the Pneumonia Vaccine: No ROS Obtained: Yes Systems reviewed as appropriate & no additional complaints except as documented Physical Exam General General appearance: alert Comment: speaking in shortened sentences, in moderate respiratory distress Head Head exam: atraumatic Eye Eye exam: Present normal appearance ENT ENT exam: Present normal external ear exam Neck Neck exam: Present full ROM Chest Chest inspection: Present symmetric chest wall rise Respiratory Respiratory exam: Present respiratory distress and wheezes; Absent normal lung sounds bilaterally (diminished breath sounds bilaterally) or stridor Cardiovascular Cardiovascular exam: Present regular rate and normal rhythm Abdominal Exam Abdominal exam: Present soft; Absent tenderness or guarding Extremities Exam Extremities exam: Present normal inspection Back Exam Back exam: Present normal inspection Neurological Exam Neurological exam: Present alert and oriented X3 Psychiatric Psychiatric exam: Present normal affect Skin Skin exam: Present warm and dry HEART Score HEART Score HEART Score assessment performed?: No Critical Care Critical Care Time Critical Care Time: Yes Attestation: On 08/05/25, the high probability of a clinically significant, sudden or life threatening deterioration of the following system(s) required my full and direct attention, intervention and personal management. The time I documented below is in addition to time spent performing reported procedures but includes the following listed in this critical care notation. Total Time Total Critical Care Time: 35 Medical Decision Making Prasad Inquiry Pt receiving controlled substance: No Vital Signs Vital Signs: 08/05/25 09:38 08/05/25 10:06 08/05/25 10:20 Temperature 98.2 F Temperature Source Oral Pulse Rate 99 H 97 H Pulse Rate [Radial] 101 H Respiratory Rate 22 Blood Pressure Blood Pressure [Right Arm] 129/89 Blood Pressure Mean [Right Arm] 102 Blood Pressure Position [Right Arm] Sitting 02 Sat by Pulse Oximetry 93 L Oxygen Delivery Method Nasal Cannula Oxygen Flow Rate (LPM) 2 08/05/25 12:51 08/05/25 13:10 Temperature 98.4 F Temperature Source Pulse Rate 98 H Pulse Rate [Radial] Respiratory Rate 18 Blood Pressure 120/82 Blood Pressure [Right Arm] Blood Pressure Mean [Right Arm] Blood Pressure Position [Right Arm] 02 Sat by Pulse Oximetry 96 Oxygen Delivery Method Nasal Cannula Oxygen Flow Rate (LPM) 2 Lab Data Labs: Lab Results 08/05/25 09:35: WBC 18.1 H, RBC 3.83 L, Hgb 11.7 L, Hct 36.2 L, MCV 94.5, MCH 30.5, MCHC 32.3, RDW 13.3, Plt Count 444 H, MPV 10.4, Neut % (Auto) 62.2, Lymph % (Auto) 24.6, [place] % (Auto) 9.0, Eos % (Auto) 2.6, Baso % (Auto) 0.5, Neut # (Auto) 11.3 H, Lymph # (Auto) 4.5, [place] # (Auto) 1.6 H, Eos # (Auto) 0.5 H, Baso # (Auto) 0.1, Total Counted 100, Neutrophils % (Manual) 55, Lymphocytes % (Manual) 29, Monocytes % (Manual) 10 H, Eosinophils % (Manual) 6 H, Platelet Estimate Normal, RBC Morphology Normal, VBG pH 7.38, VBG pCO2 56.0 H, VBG pO2 43.3 H, VBG HCO3 32.0 H, VBG Total CO2 33.7 H, VBG O2 Saturation 81.0 H, VBG Base Excess 6.8 H, VBG Lactic Acid 1.5, Sodium 124 L, Potassium 4.5, Chloride 84 L, Carbon Dioxide 32 H, Anion Gap 12.5, BUN 12, Creatinine 1.10 H, Estimated Creat Clear 72, Estimated GFR 49 L, Est GFR ( Amer) 60, Glucose 167 H, Calcium 8.6, Total Bilirubin 0.4, AST 33, ALT 16, Alkaline Phosphatase 120, Troponin I < 0.01, NT-Pro-B Natriuret Pep 185 H, Total Protein 7.1, Albumin 3.8, Globulin 3.3 H, Albumin/Globulin Ratio 1.2, SARS-CoV-2 (PCR) Not detected, HCV Ab ELLYN w/Rflx PCR Qn Negative, Influenza A Untype (PCR) Not detected, Influenza Type B (PCR) Not detected 08/05/25 09:35 08/05/25 09:35 Response Orders (Tests/Meds): ED MEDICATIONS Generic Name Dose Route Start Last Admin Trade Name Freq PRN Reason Stop Dose Admin Acetaminophen 650 mg 08/05/25 14:20 Acetaminophen 325mg Tab PO 09/04/25 14:19 Q4HP PRN Fever or Mild Pain (1-3) Albuterol/Ipratropium 3 ml 08/05/25 18:00 Ipratropium/Albuterol 3 Ml [facility] 09/04/25 17:59 Q4RT [facility] Budesonide 0.5 mg 08/05/25 18:00 Budesonide 0.5mg/2ml [facility] 09/04/25 17:59 BIDRT [facility] Enoxaparin Sodium 40 mg 08/06/25 09:00 Enoxaparin 40mg/0.4ml Syringe SUBCUT 09/05/25 08:59 DAILY [facility] Insulin Human Lispro 0 unit 08/05/25 16:30 08/05/25 16:50 Humalog 100 Units/Ml 10ml Vial ([facility]) SUBCUT 09/04/25 16:29 2 unit ACHS [facility] Administration Protocol Ondansetron HCl 4 mg 08/05/25 14:20 Ondansetron 4mg/2ml Vial IV 09/04/25 14:19 Q8HP PRN Nausea Discontinued Medications Generic Name Dose Route Start Last Admin Trade Name Freq PRN Reason Stop Dose Admin Albuterol/Ipratropium 9 ml 08/05/25 09:49 08/05/25 10:05 Ipratropium/Albuterol 3 Ml [facility] 08/05/25 09:50 9 ml ONCE ONE Administration Magnesium Sulfate 2 gm in 50 mls @ 50 mls/hr 08/05/25 09:50 08/05/25 12:11 Magnesium Sulfate 2gm/50ml Premix IV 08/05/25 10:49 Infused ONCE ONE Infusion ORDERS Category Date Time Status CXR --portable [XR chest portable] Stat Exams 08/05/25 09:50 Completed BNP [NT Pro Brain Natriuretic Pep.] Stat Lab 08/05/25 09:35 Completed CBC w/Auto Diff [Complete Blood Count Auto Diff] Stat Lab 08/05/25 09:35 Completed CMP [Comprehensive Metabolic Panel] Stat Lab 08/05/25 09:35 Completed HIV Combo Stat Lab 08/05/25 09:35 Received Hepatitis C Ab Qual. W/ RFX Stat Lab 08/05/25 09:35 Completed Rapid PCR Covid and Flu A/B Stat Lab 08/05/25 09:35 Completed Troponin I Q3H Lab 08/05/25 13:38 Completed Troponin I Q3H Lab 08/05/25 16:37 Completed Troponin I Stat Lab 08/05/25 09:35 Completed VBG [Venous Blood Gas] Stat RT 08/05/25 09:35 Completed ECG Data Tracing #1: Attestation: I reviewed this ECG and interpreted as documented below: ECG Narrative: NSR. No ST elevation or depression. Incomplete RBBB. QTc 436. MDM Narrative Medical Decision Narrative: DuoNeb treatment Phill Cooney is a 70F with a history of With a history of diabetes interstitial lung disease, hypertension, hyperlipidemia, heart failure with preserved ejection fraction on Bumex and Lasix, diabetes who presents to the emergency department for shortness of breath and chest pain. Patient states that she has had chest pain for some time and was actually here at the hospital getting ready to have a stress test performed when she was noted to be wheezy with increased work of breathing. She states that this has been worse over the last few days as she has been more active. She normally wears 2 L nasal cannula at home but has been hypoxic at home and has increased her oxygen at home. She states that she was told not to take steroids by her infrastructure design engineer, Dr. carpenter, but has been using Dulera at home without significant relief. She received an albuterol nebulizer treatment when she arrived for her stress test, however she did not undergo stress testing due to her symptoms and was sent to the emergency department. On arrival, patient is mildly hypoxic but afebrile but hemodynamically stable. Physical exam, as stated above, demonstrated ill-appearing female in moderate respiratory distress. She is speaking in short sentences. She has increased work with breathing. She has diminished breath sounds and some mild wheezing bilaterally. Cardiopulmonary exam reveals no rubs or murmurs. She does not have any significant peripheral edema in her lower extremities. While examining the patient, she had an episode where she went unresponsive but maintained a pulse. This lasted for approximately 30 seconds and then regained consciousness and was back completely alert and oriented. She is unsure as to what caused this episode. There is no seizure activity. Differential diagnosis includes, but is not limited to: Worsening lung disease, ACS, pericarditis, electrolyte derangement, metabolic derangement, pneumonia, among others. The most morbid conditions were considered and workup was based on these. Patient was administered 2 g of IV magnesium sulfate. Steroids were avoided this patient was told that she should not take steroids by her infrastructure design engineer. EKG without evidence of ischemia. See interpretation above. Workup shows a leukocytosis with white blood cell count of 18.1, stable low hemoglobin at 11.7 and hematocrit of 36.2. Platelets chronically elevated at 444. ABG with normal pH eventually at 3 8, chronically elevated pCO2 of 56 with bicarb compensation. Deteriorating. Lactic acid normal at 1.5. Patient is significantly hyponatremic at 124 (was 135 on May 16 of this month): Potassium normal at 4.5. Creatinine at baseline at 1.10. Glucose normal at 167. Liver enzymes bili within normal limits. Initial troponin less than 0.01. NT proBNP very mildly elevated at 185. Negative COVID and flu testing. On reassessment, patient is resting more comfortably but still speaking in shortened sentences. She has on her baseline oxygen requirement at this time. Given her continued work of breathing and hyponatremia, I do feel patient would benefit from admission for continued management. I discussed patient's case with Dr. Simmons and he graciously accepted the patient for admission. Patient was in agreement to be admitted at this time.
[2025-08-05 10:06] LABS: Lactate Venous 1.5 mmol/L (0.4-2.0); VBG HCO3 32.0 mmol/L (23-30); VBG PH 7.38 mmol/L (7.31-7.41); VBG PO2 43.3 mmol/L (28-40)
[2025-08-05 10:09] LABS: VBG PCO2 56.0 mmol/L (35-51)
[2025-08-05 10:13] LABS: Hematocrit 36.2 % (37.0-47.0); Hemoglobin 11.7 g/dL (12.2-16.2); Immature Granulocytes % 1.1 %; Mean Corpuscular HGB Conc 32.3 g/dL (31.8-35.4); Mean Corpuscular Hemoglobin 30.5 pg (27.0-31.2); Mean Corpuscular Volume 94.5 fl (81-99); Nucleated Red Blood Cells % 0 %; Platelet Count 444 K/mm3 (142-424); Red Blood Count 3.83 M/mm3 (4.20-5.40); Red Cell Distribution Width-SD 46.1 fL; White Blood Count 18.1 K/mm3 (4.8-10.8)
[2025-08-05 10:25] LABS: Albumin Level 3.8 g/dl (3.5-5.0); Chloride 84 mmol/L (98-107); Sodium 124 mmol/L (136-145)
[2025-08-05 10:26] LABS: Potassium 4.5 mmoL/L (3.5-5.1)
[2025-08-05 10:28] LABS: Alanine Aminotransferase 16 U/L (12-78); Albumin/Globulin Ratio 1.2 (1.1-1.8); Alkaline Phosphatase 120 U/L (38-126); Anion Gap 12.5 mEq/L (5-15); Aspartate Amino Transferase 33 U/L (14-36); Bilirubin,Total 0.4 mg/dl (0.2-1.3); Blood Urea Nitrogen 12 mg/dl (7-17); Calcium 8.6 mg/dl (8.4-10.2); Carbon Dioxide 32 mmol/L (22.0-30.0); Creatinine Clearance Estimated 72 mL/min (50-200); Creatinine,Serum 1.10 mg/dl (0.52-1.04); Estimated Glomerular Filt Rate 49 ml/min (>60); GFR (African American) 60 ML/MIN (>60); Globulin 3.3 g/dL (1.3-3.2); Glucose 167 mg/dl (74-100); Total Protein,Serum 7.1 g/dl (6.3-8.2)
[2025-08-05 10:38] LABS: NT Pro Brain Natriuretic Pep. 185 pg/mL (0-125)
[2025-08-05 10:41] LABS: Troponin I < 0.01 ng/ml (0.00-0.034)
[2025-08-05 10:47] LABS: Total Cells Counted 100
[2025-08-05 10:48] LABS: RBC Morphology Normal
[2025-08-05 11:16] LABS: Hepatitis C Ab Qual. W/ RFX NEGATIVE (Negative)
--- NOTE | 2025-08-05 12:52 | PC.NURSE ---
REPORT GIVEN TO ILIANA NOVA FOR ROOM 210
--- NOTE | 2025-08-05 13:21 | PC.NURSE ---
arrived to floor at 13:13
[2025-08-05 14:29] LABS: Troponin I < 0.01 ng/ml (0.00-0.034)
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
[2025-08-05] MEDS: humaLOG 100 UNITS/ML 10ML VIAL (SSI) SUBCUT ×2 (16:50→20:08)
[2025-08-05 17:11] LABS: Troponin I < 0.01 ng/ml (0.00-0.034)
[2025-08-05] MEDS: BUDESONIDE 0.5MG/2ML NEB 0.5 MG IH (18:29)
[2025-08-05] MEDS: IPRATROPIUM/ALBUTEROL 3 ML NEB IH (18:29)
[2025-08-05] MEDS: PANTOPRAZOLE 40MG TABLET 40 MG PO (18:55)
[2025-08-05] MEDS: ACETAMINOPHEN 325MG TAB 650 MG PO (18:57)
[2025-08-05 20:06] LABS: POC Glucose,Bedside 295 gm/dL (70-110)
[2025-08-05] MEDS: GABAPENTIN 800MG TABLET 400 MG PO (20:12)
--- NOTE | 2025-08-05 21:53 | EXP.HP ---
History of Present Illness *Admission Date: 08/05/25 *Reason for visit:: Shortness of breath, chest pain *History of present illness: Richard Cooney is a 70-year-old female with a medical history significant for ILD, COPD on 2 L, HFpEF, DVT (not on AC due to GI bleed, IVC filter in place), type 2 diabetes, CKD, hypothyroidism, opioid use disorder in remission, GERD presents with chest pain and shortness of breath, weakness. Patient states over the past week she has been feeling weak with poor appetite and has not eaten much. Additionally she states she has been having chest pain since Sunday and was supposed to undergo cardiac stress test today. During stress test, patient was noted to have shortness of breath and wheezing so she was sent to the ED for further evaluation. Additionally, patient states she has been taking her Bumex 2 mg along with Lasix 40 mg intermittently to help with heart failure, and also been taking metolazone every Sunday. Patient denies fever/chills, abdominal pain. Workup in the ED significant for WBC 18.1, compensated VBG, sodium 124, BNP 185, and negative for COVID-19 and influenza. CXR without acute findings. Patient was given DuoNebs and magnesium after which patient states she felt better but not back to baseline. Continued to have significant wheezing. Given these findings, ED provider discussed case with me and I decided to admit patient for ILD/COPD exacerbation and acute hyponatremia. [facility] Disclaimer: The information contained in this section may have been updated after the patient was seen, as this information can be updated by other users. Medical History HLD (hyperlipidemia) HTN (hypertension) Edema (HFpEF) heart failure with preserved ejection fraction Chronic respiratory failure with hypoxia Dyspnea on exertion ILD (interstitial lung disease) Fibrosis of lung Lupus disease of lung Acute and chronic respiratory failure with hypoxia History of ITP History of lupus Rotator cuff impingement syndrome History of anemia History of left heart catheterization (LHC) Cataract Kidney disease Thyroid disease Asthma Anemia SVT (supraventricular tachycardia) MRSA (methicillin resistant Staphylococcus aureus) HTN (hypertension) GI bleed Gastroparesis GERD (gastroesophageal reflux disease) DVT (deep venous thrombosis) Arrhythmia Endometrial cancer Heart attack Oxygen dependent COPD (chronic obstructive pulmonary disease) Diabetes Addisons disease Surgical History History of splenectomy History of esophagogastroduodenoscopy (EGD) History of carpal tunnel surgery History of [place] fundoplication History of right heart catheterization (RHC) History of hysterectomy History of colonoscopy History of cholecystectomy Family History Other Family history of anemia Family history of asthma Family history of bleeding disorder Family history of cancer Family history of diabetes mellitus Family history of kidney disease Family history of thyroid disease Social History (Updated 08/05/25 @ 13:38 by Karina Dillard RN) Smoking Status: Never smoker alcohol intake: never current occupational status: retired Travel in the last 8 weeks?: None household members: none housing: house lives independently: Yes marital status: education level: college diet: diabetic caffeine: Yes Have you lived/traveled outside [place] in past 30 days?: No Contact w/someone who lives/traveled outside [place] past 30 days?: No Exposure to someone with infectious disease in past 14 days?: No Do you have a fever (greater than 100.4 F or 38 C)?: No Have you tested positive for COVID-19?: No Exposed to someone with COVID-19 in past 14 days?: No Do you have a sore throat?: No Do you have a cough?: No Do you have any weakness?: No Do you have any diarrhea?: No Are you experiencing any unusual bleeding?: No Do you have any muscle aches/pain?: No Do you have any abdominal pain?: No Are you experiencing loss of taste or smell?: No Other Medical History Have you received the Flu Vaccine for this season: No Have you received the Pneumonia Vaccine: Yes Meds Home Medications and Allergies Home Medications ?Medication ?Instructions ?Recorded ?Confirmed ?Type aspirin 81 mg chewable tablet 81 mg PO DAILY 11/27/19 08/05/25 History gabapentin 800 mg tablet 800 mg PO QID fibromyalgia pain 11/27/19 08/05/25 History levothyroxine 50 mcg tablet 50 mcg PO DAILY 11/27/19 08/05/25 History methadone 10 mg tablet 10 mg PO 5XDAY fibromyalgia pain 11/27/19 08/05/25 History ondansetron HCl 8 mg tablet 8 mg PO TIDP PRN Nausea 11/27/19 08/05/25 History pantoprazole 40 mg tablet,delayed 40 mg PO DAILY 11/28/19 08/05/25 History release clopidogrel 75 mg tablet 75 mg PO DAILY 07/07/22 08/05/25 History empagliflozin 25 mg tablet 25 mg PO DAILY 07/07/22 08/05/25 History (Jardiance) ergocalciferol (vitamin D2) 1,250 50,000 unit PO WEEKLY Supplement 12/02/23 08/05/25 History mcg (50,000 unit) capsule (Vitamin D2) escitalopram oxalate 20 mg tablet 20 mg PO DAILY 12/02/23 08/05/25 History fluticasone propionate 50 1 spray intranasal BID 12/02/23 08/05/25 History mcg/actuation nasal spray,suspension insulin aspart U-100 100 unit/mL 10 unit SQ TIDWMEAL Diabetes 12/02/23 07/16/25 History (3 mL) subcutaneous pen (Novolog FlexPen U-100 Insulin aspart) magnesium oxide 400 mg PO DAILY Supplement 12/02/23 08/05/25 History nitroglycerin 0.4 mg sublingual 0.4 mg sublingual Q5MINP PRN Chest 12/02/23 08/05/25 History tablet Pain insulin aspart U-100 100 unit/mL 1 sliding scale dose SQ 08/11/24 08/05/25 History subcutaneous solution (Novolog USEASDIRECTD U-100 Insulin aspart) insulin glargine 100 unit/mL 45 unit SQ HS 08/11/24 08/05/25 History subcutaneous solution (Lantus U-100 Insulin) mometasone-formoterol HFA 100 2 puff inhalation BID 90 days #13 08/11/24 08/05/25 Rx mcg-5 mcg/actuation aerosol grams inhaler (Dulera) bisoprolol fumarate 5 mg tablet 2.5 mg PO DAILY 08/14/24 08/05/25 History bupropion HCl 300 mg 24 hr tablet, 300 mg PO DAILY 07/02/25 08/05/25 History extended release spironolactone 25 mg tablet 25 mg PO DAILY 07/02/25 08/05/25 History atorvastatin 40 mg tablet 40 mg PO DAILY #30 tabs 07/16/25 08/05/25 Rx bumetanide 2 mg tablet 2 mg PO DAILY 07/16/25 08/05/25 History metolazone 2.5 mg tablet 2.5 mg PO WEEKLY 08/05/25 08/05/25 History New Prescriptions to Start Prescriptions: Allergies Allergy/AdvReac Type Severity Reaction Status Date / Time Cephalosporins Allergy Unknown Verified 07/16/25 15:08 allergy reaction meperidine Allergy Unknown Verified 07/16/25 15:08 allergy reaction NSAIDS (Non-Steroidal Allergy Unknown Verified 07/16/25 15:08 Anti-Inflamma allergy reaction pregabalin Allergy Unknown Verified 07/16/25 15:08 allergy reaction Sulfa (Sulfonamide Allergy Unknown Verified 07/16/25 15:08 Antibiotics) allergy reaction sumatriptan Allergy Unknown Verified 07/16/25 15:08 allergy reaction tizanidine Allergy Unknown Verified 07/16/25 15:08 allergy reaction enoxaparin (From Lovenox) AdvReac Unknown Verified 07/16/25 15:08 allergy reaction nalbuphine AdvReac Unknown Verified 07/16/25 15:08 allergy reaction promethazine AdvReac Unknown Verified 07/16/25 15:08 allergy reaction Exam Data for Last 24 hours Vital signs and Labs for Last 24 Hours: Temp Pulse Resp BP Pulse Ox O2 Del Method O2 Flow Rate 98.4 F 79 17 134/58 L 96 Nasal Cannula 2 08/05/25 20:00 08/05/25 20:00 08/05/25 20:00 08/05/25 20:00 08/05/25 20:00 08/05/25 20:00 08/05/25 20:00 Laboratory Results - last 24 hr 08/05/25 09:35: WBC 18.1 H, RBC 3.83 L, Hgb 11.7 L, Hct 36.2 L, MCV 94.5, MCH 30.5, MCHC 32.3, RDW 13.3, Plt Count 444 H, MPV 10.4, Neut % (Auto) 62.2, Lymph % (Auto) 24.6, [place] % (Auto) 9.0, Eos % (Auto) 2.6, Baso % (Auto) 0.5, Neut # (Auto) 11.3 H, Lymph # (Auto) 4.5, [place] # (Auto) 1.6 H, Eos # (Auto) 0.5 H, Baso # (Auto) 0.1, Total Counted 100, Neutrophils % (Manual) 55, Lymphocytes % (Manual) 29, Monocytes % (Manual) 10 H, Eosinophils % (Manual) 6 H, Platelet Estimate Normal, RBC Morphology Normal, VBG pH 7.38, VBG pCO2 56.0 H, VBG pO2 43.3 H, VBG HCO3 32.0 H, VBG Total CO2 33.7 H, VBG O2 Saturation 81.0 H, VBG Base Excess 6.8 H, VBG Lactic Acid 1.5, Sodium 124 L, Potassium 4.5, Chloride 84 L, Carbon Dioxide 32 H, Anion Gap 12.5, BUN 12, Creatinine 1.10 H, Estimated Creat Clear 72, Estimated GFR 49 L, Est GFR ( Amer) 60, Glucose 167 H, Calcium 8.6, Total Bilirubin 0.4, AST 33, ALT 16, Alkaline Phosphatase 120, Troponin I < 0.01, NT-Pro-B Natriuret Pep 185 H, Total Protein 7.1, Albumin 3.8, Globulin 3.3 H, Albumin/Globulin Ratio 1.2, SARS-CoV-2 (PCR) Not detected, HCV Ab ELLYN w/Rflx PCR Qn Negative, HIV Ag/Ab Combo Qual Negative, Influenza A Untype (PCR) Not detected, Influenza Type B (PCR) Not detected 08/05/25 13:38: Troponin I < 0.01 08/05/25 16:37: Troponin I < 0.01 08/05/25 19:59: POC Glucose 295 H I & O for Last 24 hours: Intake & Output 08/02/25 08/03/25 08/04/25 08/05/25 23:59 23:59 23:59 23:59 Intake Total 530 / 530 Output Total 0 / 0 Balance 530 / 530 Weight 92.986 kg Constitutional Constitutional: no acute distress, obese and chronically ill appearing *Routine HEENT Exam Head: Present normocephalic Eye: Present EOMI and PERRL ENT: Present mucous membranes moist *Routine Neck Exam Neck: Present supple; Absent lymphadenopathy *Routine Respiratory Exam Respiratory: Present wheezes; Absent CTA bilaterally *Routine Cardiovascular Exam Cardiovascular: Present RRR *Routine Abdominal Exam Abdominal: Present soft and normoactive bowel sounds; Absent tenderness *Routine Rectal Exam Rectal:: deferred *Routine Genitalia Exam Genitalia:: deferred *Routine Extremities Exam Extremities: Absent cyanosis, clubbing or edema *Routine Skin Exam Skin: Present warm; Absent rash *Routine Neurological Exam Neurological: Present alert and oriented X3 Assessment and Plan *Assessment and plan (1) Hyponatremia: Status: Acute Category: Medical Code(s): E87.1 - Hypo-osmolality and hyponatremia (2) Acute exacerbation of chronic obstructive pulmonary disease: Status: Acute Category: Medical Code(s): J44.1 - Chronic obstructive pulmonary disease with (acute) exacerbation Plan Richard Cooney is a 70-year-old female with a medical history significant for ILD, COPD on 2 L, CAD with stent, HFpEF, DVT (not on AC due to GI bleed, IVC filter in place), type 2 diabetes, CKD, hypothyroidism, opioid use disorder in remission, GERD presents with chest pain and shortness of breath, weakness. Patient states over the past week she has been feeling weak with poor appetite and has not eaten much. Additionally she states she has been having chest pain since Sunday and was supposed to undergo cardiac stress test today. During stress test, patient was noted to have shortness of breath and wheezing so she was sent to the ED for further evaluation. Additionally, patient states she has been taking her Bumex 2 mg along with Lasix 40 mg intermittently to help with heart failure, and also been taking metolazone every Sunday. Patient denies fever/chills, abdominal pain. Workup in the ED significant for WBC 18.1, compensated VBG, sodium 124, BNP 185, and negative for COVID-19 and influenza. CXR without acute findings. Patient was given DuoNebs and magnesium after which patient states she felt better but not back to baseline. Continued to have significant wheezing. Given these findings, ED provider discussed case with me and I decided to admit patient for ILD/COPD exacerbation and acute hyponatremia. #COPD, ILD exacerbation #Chronic hypoxic respiratory failure ? Patient presents with progressive shortness of breath, wheezing, weakness. Improved with DuoNebs, magnesium in the ED but continued to have significant wheezing. On 2 L baseline. ? CXR without acute findings, initial WBC 18.1. ? Started DuoNebs every 4 hours, Pulmicort twice daily. ? Started levofloxacin 750 mg daily. ? Will hold off on steroids after evaluation by pulmonology. ? Follow-up sputum, blood cultures. ? Follow-up full respiratory panel. ? Pulmonology consulted, pending further recommendations. ? Follow-up morning CBC. #Chest pain #History of CAD with stents ? Patient states she has been having intermittent chest pains over the past week, while undergoing cardiac stress test but interrupted due to shortness of breath. ? Follow-up ECHO. ? Cardiology consulted, pending further recommendations. ? Continue home aspirin, Plavix, statin, bisoprolol. ? Continuous cardiac telemetry. #Hyponatremia #Chronic HFpEF ? Currently euvolemic. However, given hyponatremia likely from excessive diuretic use and/or poor oral intake over the past week. Will hold off on diuretics for now. ? Initial sodium 124, 135 earlier this month. Patient states she is been taking Bumex 2 mg and supplementing with Lasix 40 mg as needed, along with metolazone 2.5 mg every Sunday. ? Follow-up serum, urine osmolality, and urine sodium. ? Follow-up morning CMP. Max sodium correction 8 to 10 mEq/day. #Type 2 diabetes ? Hemoglobin A1c 7.6% last year. Follow-up repeat A1c. ? LDSSI, ACHS glucose checks. #Hypothyroidism ? Continue home levothyroxine 50 mcg. TFTs stable earlier this month. #Opioid use disorder in remission ? Continue home methadone. #CKD stage III A ? Creatinine 1.1, GFR 49. Stable. Renally dose medications. Full code DVT prophylaxis: Lovenox 40 mg
[2025-08-06] VITALS: BP 138/76; PULSE 73; RESP 17; TEMP 36.6; O2SAT 96
[2025-08-06 01:44] LABS: Microscopic, Urine URINE MICROSCOPIC (MICROSCOPIC)
[2025-08-06 01:55] LABS: Bilirubin,Urine Negative (Negative); Color,Urine YELLOW (Yellow); Glucose,Urine (UA) Negative (Negative); Ketones,Urine Negative (Negative); Leukocyte Esterase,Urine Negative (Negative); PH,Urine 6.0 (5.0-8.5); Protein,Urine Negative (Negative); Specific Gravity, Urine <= 1.005 (1.005-1.030); Urobilinogen,Urine 0.2 EU/dl (0.2)
[2025-08-06 02:10] LABS: Bacteria,Urine 1+ /lpf
[2025-08-06] MEDS: SODIUM CHLORIDE 3% 15ML NEB 3 ML IH (02:28)
[2025-08-06] MEDS: IPRATROPIUM/ALBUTEROL 3 ML NEB IH (02:28)
[2025-08-06 02:29] VITALS: PULSE 76; PULSE 80; RESP 18
[2025-08-06 02:55] LABS: Sodium,Urine Random 13.0 mmol/L (30-90)
[2025-08-06 03:54] LABS: Adenovirus,PCR Not Detected (NotDetected); Chlamydophila Pneumoniae, PCR Not Detected (NotDetected); Coronavirus 19, PCR Not Detected (NotDetected); Coronovirus HKU1,PCR Not Detected (NotDetected); Influenza A, PCR Not Detected (NotDetected); Influenza AH1, 2009 Not Detected (NotDetected); Influenza AH1, PCR Not Detected (NotDetected); Influenza AH3,PCR Not Detected (NotDetected); Influenza B, PCR Not Detected (NotDetected); Mycoplasma Pneumoniae, PCR Not Detected (NotDetected); Parainfluenza 1, PCR Not Detected (NotDetected); Parainfluenza 2, PCR Not Detected (NotDetected); Parainfluenza 3, PCR Not Detected (NotDetected); Parainfluenza 4, PCR Not Detected (NotDetected)
[2025-08-06 04:00] VITALS: BP 141/71; PULSE 76; RESP 16; TEMP 36.7; O2SAT 95; BMI 39.6
[2025-08-06 05:09] LABS: POC Glucose,Bedside 124 gm/dL (70-110)
--- NOTE | 2025-08-06 06:00 | CA_ITS ---
APPROVED REPORT EXAM: Comprehensive 2D, Doppler, and color-flow Echocardiogram Web Project Manager: Mary Kay Gordon, LAWANDA, RVS Ht: 5 ft 0 in Wt: 205lbs BSA: 1.89 BP: 101/62 mmHg Indications: Heart Failure, Interstital lung disease, Old [place], Home O2, DM, HTN, HLD, SVT 2D Dimensions Left Atrium 3.10 cm F: 2.7 - 3.8 LA Volume 57.70 mL LA Volume Index [id number] mL/m2 (M/F) 16-34 M-Mode Dimensions RVDd 3.19 cm (0.9-2.6) LA Diam 3.34 cm (1.9-4.0) LVDd 4.32 cm (3.5-5.7) LVDs 2.58 cm (3.5-5.7) IVSd 1.27 cm (0.6-1.1) PWd 1.08 cm (0.6-1.1) EF (Teich) 71.30% EPSs 0.68 cm FS 40.30% EDV (Teich) 84.00 mL TAPSE 1.68 (<1.7) ESV (Teich) 24.10 mL LV Diastology E Decel Time 207 (160-240 msec) E/A Ratio 0.86 MED A' 12.50 cm/s LAT A' 10.40 cm/s Aortic Valve HEATHER Index 1.54 cm2/m2 AoV Peak Henrik. 143.0 (50-130 cm/s) AI PHT 463.00 ms AO Peak GR. 8.20 mmHg AO Mean GR. 4.10 (<5 mmHg) AO VTI 22.3 (18-25 cm) HEATHER (VTI) 2.98 (2.5-4.5 cm2) Mitral Valve MV A Velocity 64.0 (40-130 cm/s) E/A Ratio 0.86 MV Mean Gr. 1.50 (<2mmHg) Pulmonary Valve PV Peak Velocity 101.0 (50-150 cm/s) Tricuspid Valve TR P. Velocity 183.00 cm/s RAP Estimate 10.00 mmHg RVSP 23.40 mmHg Left Ventricle The left ventricle is normal size. Left ventricular systolic function is normal. The left ventricular ejection fraction is within the normal range. There is increased left ventricular wall thickness. There is normal LV segmental wall motion. Transmitral Doppler flow pattern suggests impaired LV relaxation. LVEF is 60%. Right Ventricle The right ventricle is mildly dilated. The right ventricular systolic function is mildly reduced. Atria The left atrium is mildly dilated. The right atrium is mildly dilated. There is no color Doppler evidence of interatrial shunt. Aortic Valve The aortic valve is mildly thickened. There is no hemodynamically significant aortic valvular stenosis. Mild aortic regurgitation is present. Mitral Valve The mitral valve is normal in structure. No evidence of mitral valve stenosis. Trace mitral regurgitation is present. Tricuspid Valve The tricuspid valve leaflets are thin and pliable. Mild tricuspid regurgitation. RVSP is 25-30 mmHg. Pulmonic Valve The pulmonary valve is grossly normal in structure. Trace pulmonic valve regurgitation is present. Great Vessels The aortic root is normal in size. IVC is normal in size and collapses >50% with inspiration. Pericardium There is no pericardial effusion. Other Information Study Quality: Fair Conclusion Normal LV systolic function. Mild RV dilation with mild reduction in RV function. Biatrial dilation. Mild AI, mild TR. Electronically signed by : Felisha Michael MD 08/06/2025 12:09:24
[2025-08-06 06:04] VITALS: O2SAT 94
[2025-08-06 06:26] LABS: Hematocrit 38.4 % (37.0-47.0); Hemoglobin 12.5 g/dL (12.2-16.2); Immature Granulocytes % 0.8 %; Mean Corpuscular HGB Conc 32.6 g/dL (31.8-35.4); Mean Corpuscular Hemoglobin 30.9 pg (27.0-31.2); Mean Corpuscular Volume 94.8 fl (81-99); Nucleated Red Blood Cells % 0 %; Platelet Count 347 K/mm3 (142-424); Red Blood Count 4.05 M/mm3 (4.20-5.40); Red Cell Distribution Width-SD 47.8 fL; White Blood Count 11.0 K/mm3 (4.8-10.8)
[2025-08-06 08:00] VITALS: BP 149/72; PULSE 83; RESP 18; TEMP 36.8; O2SAT 94
[2025-08-06 08:30] VITALS: O2SAT 94
[2025-08-06] MEDS: ASPIRIN 81MG CHEWABLE TABLET 81 MG PO (08:44)
[2025-08-06] MEDS: LEVOTHYROXINE 50MCG (0.05MG) TAB 50 MCG PO (08:45)
[2025-08-06] MEDS: GABAPENTIN 400MG CAPSULE 400 MG PO ×2 (08:45→13:29)
[2025-08-06 08:55] LABS: Albumin Level 3.4 g/dl (3.5-5.0); Chloride 89 mmol/L (98-107); Potassium 4.6 mmoL/L (3.5-5.1); Sodium 129 mmol/L (136-145)
[2025-08-06 08:57] LABS: Blood Urea Nitrogen 11 mg/dl (7-17); Creatinine Clearance Estimated 78 mL/min (50-200); Creatinine,Serum 0.90 mg/dl (0.52-1.04); Estimated Glomerular Filt Rate 62 ml/min (>60); GFR (African American) 75 ML/MIN (>60)
[2025-08-06 08:58] LABS: Alanine Aminotransferase 16 U/L (12-78); Albumin/Globulin Ratio 1.2 (1.1-1.8); Alkaline Phosphatase 98 U/L (38-126); Anion Gap 11.6 mEq/L (5-15); Aspartate Amino Transferase 25 U/L (14-36); Bilirubin,Total 0.2 mg/dl (0.2-1.3); Calcium 8.9 mg/dl (8.4-10.2); Carbon Dioxide 33 mmol/L (22.0-30.0); Globulin 2.8 g/dL (1.3-3.2); Glucose 281 mg/dl (74-100); Magnesium 1.7 mg/dl (1.6-2.3); Total Protein,Serum 6.2 g/dl (6.3-8.2)
--- NOTE | 2025-08-06 09:12 | EXP.PULM.CON ---
History of Present Illness History of present illness: Ms. Cooney is a 70-year-old female, pulmonary fibrosis mild persistent asthma, chronic hypoxic respiratory failure at baseline on 2 L nasal cannula mentation, on Dulera inhaler at baseline, DVT not on anticoagulation status post IVC filter secondary to GI bleed recently admitted to the hospital June 2025 for worsening respiratory distress multifocal pneumonia heart failure exacerbation improved with diuretics antibiotics nebulization therapies discharged home on levofloxacin presented today with worsening respiratory distress and worsening wheezing on oxygen requirements and pulmonary was called for further evaluation and management. [facility] Disclaimer: The information contained in this section may have been updated after the patient was seen, as this information can be updated by other users. Medical History (Updated 08/06/25 @ 10:44 by Kyle Wharton MD) Asthma exacerbation HLD (hyperlipidemia) HTN (hypertension) Edema (HFpEF) heart failure with preserved ejection fraction Chronic respiratory failure with hypoxia Dyspnea on exertion ILD (interstitial lung disease) Fibrosis of lung Lupus disease of lung Acute and chronic respiratory failure with hypoxia History of ITP History of lupus Rotator cuff impingement syndrome History of anemia History of left heart catheterization (LHC) Cataract Kidney disease Thyroid disease Asthma Anemia SVT (supraventricular tachycardia) MRSA (methicillin resistant Staphylococcus aureus) HTN (hypertension) GI bleed Gastroparesis GERD (gastroesophageal reflux disease) DVT (deep venous thrombosis) Arrhythmia Endometrial cancer Heart attack Oxygen dependent COPD (chronic obstructive pulmonary disease) Diabetes Addisons disease Surgical History History of splenectomy History of esophagogastroduodenoscopy (EGD) History of carpal tunnel surgery History of Amado fundoplication History of right heart catheterization (RHC) History of hysterectomy History of colonoscopy History of cholecystectomy Family History Other Family history of anemia Family history of asthma Family history of bleeding disorder Family history of cancer Family history of diabetes mellitus Family history of kidney disease Family history of thyroid disease Social History (Updated 08/05/25 @ 13:38 by Karina Dillard RN) Smoking Status: Never smoker alcohol intake: never current occupational status: retired Travel in the last 8 weeks?: None household members: none housing: house lives independently: Yes marital status: education level: college diet: diabetic caffeine: Yes Have you lived/traveled outside [place] in past 30 days?: No Contact w/someone who lives/traveled outside [place] past 30 days?: No Exposure to someone with infectious disease in past 14 days?: No Do you have a fever (greater than 100.4 F or 38 C)?: No Have you tested positive for COVID-19?: No Exposed to someone with COVID-19 in past 14 days?: No Do you have a sore throat?: No Do you have a cough?: No Do you have any weakness?: No Do you have any diarrhea?: No Are you experiencing any unusual bleeding?: No Do you have any muscle aches/pain?: No Do you have any abdominal pain?: No Are you experiencing loss of taste or smell?: No Review of Systems Constitutional Constitutional: Reports anorexia, Reports body ache(s) and Reports fatigue Eyes Eyes: Denies eye discharge, Denies dry eyes, Denies irritation and Denies itchy eyes ENT Ears, Nose, Mouth, and Throat: Denies epistaxis, Denies facial pain, Denies lip swelling and Denies throat swelling *Cardiovascular Cardiovascular: Reports dyspnea and Reports dyspnea on exertion *Respiratory Respiratory: Denies change in phlegm color, Reports chest congestion, Reports cough, Reports dyspnea, Reports dyspnea on exertion, Denies excessive phlegm production and Reports wheezing *Gastrointestinal Gastrointestinal: Denies abdominal pain, Denies belching and Denies cramping *Musculoskeletal Musculoskeletal: Reports back pain, Reports myalgias and Reports other (No small joint swelling or Pain) Psychiatric Psychiatric: Denies homicidal ideation and Denies suicidal ideation Endocrine Endocrine: Reports fatigue and Denies heat intolerance Hematologic/Lymphatic Hematologic/Lymphatic: Denies easy bleeding and Denies lymphadenopathy Allergic/Immunologic Allergic/Immunologic: Denies itchy eyes, Denies lip swelling, Denies throat swelling and Reports wheezing Pulmonology Exam Inpatient Vital signs and Labs for Last 24 Hours: Temp Pulse Resp BP Pulse Ox O2 Del Method O2 Flow Rate 98.2 F 83 18 149/72 H 94 L Nasal Cannula 2 08/06/25 08:00 08/06/25 08:00 08/06/25 08:00 08/06/25 08:00 08/06/25 08:00 08/06/25 08:00 08/06/25 06:43 Laboratory Results - last 24 hr 08/05/25 09:35: WBC 18.1 H, RBC 3.83 L, Hgb 11.7 L, Hct 36.2 L, MCV 94.5, MCH 30.5, MCHC 32.3, RDW 13.3, Plt Count 444 H, MPV 10.4, Neut % (Auto) 62.2, Lymph % (Auto) 24.6, Harrison % (Auto) 9.0, Eos % (Auto) 2.6, Baso % (Auto) 0.5, Neut # (Auto) 11.3 H, Lymph # (Auto) 4.5, Harrison # (Auto) 1.6 H, Eos # (Auto) 0.5 H, Baso # (Auto) 0.1, Total Counted 100, Neutrophils % (Manual) 55, Lymphocytes % (Manual) 29, Monocytes % (Manual) 10 H, Eosinophils % (Manual) 6 H, Platelet Estimate Normal, RBC Morphology Normal, VBG pH 7.38, VBG pCO2 56.0 H, VBG pO2 43.3 H, VBG HCO3 32.0 H, VBG Total CO2 33.7 H, VBG O2 Saturation 81.0 H, VBG Base Excess 6.8 H, VBG Lactic Acid 1.5, Sodium 124 L, Potassium 4.5, Chloride 84 L, Carbon Dioxide 32 H, Anion Gap 12.5, BUN 12, Creatinine 1.10 H, Estimated Creat Clear 72, Estimated GFR 49 L, Est GFR ( Amer) 60, Glucose 167 H, Calcium 8.6, Total Bilirubin 0.4, AST 33, ALT 16, Alkaline Phosphatase 120, Troponin I < 0.01, NT-Pro-B Natriuret Pep 185 H, Total Protein 7.1, Albumin 3.8, Globulin 3.3 H, Albumin/Globulin Ratio 1.2, SARS-CoV-2 (PCR) Not detected, HCV Ab ELLYN w/Rflx PCR Qn Negative, HIV Ag/Ab Combo Qual Negative, Influenza A Untype (PCR) Not detected, Influenza Type B (PCR) Not detected 08/05/25 13:38: Troponin I < 0.01 08/05/25 16:37: Troponin I < 0.01 08/05/25 19:59: POC Glucose 295 H 08/06/25 01:35: Urine Color Yellow, Urine Appearance Clear, Urine pH 6.0, Ur Specific Treadwell <= 1.005, Urine Protein Negative, Urine Glucose (UA) Negative, Urine Ketones Negative, Urine Blood Negative, Urine Nitrate Negative, Urine Bilirubin Negative, Urine Urobilinogen 0.2, Ur Leukocyte Esterase Negative, Urine WBC 3-5, Ur Squamous Epith Cells 5-10, Urine Bacteria 1+, Urine Sodium 13.0 L 08/06/25 04:59: POC Glucose 124 H 08/06/25 05:50: WBC 11.0 H D, RBC 4.05 L, Hgb 12.5, Hct 38.4, MCV 94.8, MCH 30.9, MCHC 32.6, RDW 13.7, Plt Count 347, MPV 11.5 H, Neut % (Auto) 45.2, Lymph % (Auto) 36.5, Harrison % (Auto) 10.8 H, Eos % (Auto) 6.2, Baso % (Auto) 0.5, Neut # (Auto) 5.0, Lymph # (Auto) 4.0, Harrison # (Auto) 1.2 H, Eos # (Auto) 0.7 H, Baso # (Auto) 0.1 08/06/25 07:50: Sodium 129 L, Potassium 4.6, Chloride 89 L, Carbon Dioxide 33 H, Anion Gap 11.6, BUN 11, Creatinine 0.90, Estimated Creat Clear 78, Estimated GFR 62, Est GFR ( Amer) 75 D, Glucose 281 H D, Calcium 8.9, Magnesium 1.7, Total Bilirubin 0.2, AST 25, ALT 16, Alkaline Phosphatase 98, Total Protein 6.2 L, Albumin 3.4 L D, Globulin 2.8, Albumin/Globulin Ratio 1.2 08/06/25 : Chlamy pneumoniae PCR Not detected, Adenovirus (PCR) Not detected, B. pertussis DNA (PCR) Not detected, Coronavirus OC43 (PCR) Not detected, Coronavirus HKU1 (PCR) Not detected, Coronavirus 229E (PCR) Not detected, SARS-CoV-2 (PCR) Not detected, Coronavirus NL63 (PCR) Not detected, Human Metapneumovir PCR Not detected, Influenza A (H1) PCR Not detected, Influ A (H1N1/09) PCR Not detected, Influenza A (H3) PCR Not detected, Influenza Type A (PCR) Not detected, Influenza Type B (PCR) Not detected, M. pneumoniae (PCR) Not detected, Parainfluenza 1 (PCR) Not detected, Parainfluenza 2 (PCR) Not detected, Parainfluenza 3 (PCR) Not detected, Parainfluenza 4 (PCR) Not detected, RSV (PCR) Not detected, Entero/Rhino (PCR) Not detected I & O for Labs for Last 24 Hours: Intake & Output 08/03/25 08/04/25 08/05/25 08/06/25 23:59 23:59 23:59 23:59 Intake Total 530 / 1010 480 / 480 Output Total 0 / 500 500 / 500 Balance 530 / 510 - / 20 Weight 205 lb 202 lb 4.8 oz Constitutional: Present mild distress Head: Present normocephalic and atraumatic ENT: Present normal exam, normal oropharynx and mucous membranes moist Neck: Present normal inspection and full ROM Respiratory: Present prolonged expiratory phase, respiratory distress and able to speak in complete sentences; Absent wheezes or diminished air movement Cardiac: Present S1/S2, Tachycardia and radial pulses present GI: Present soft and distention; Absent tenderness or guarding Rectal (female): Present deferred (female): Present deferred Skin: Present intact; Absent cyanosis or jaundice Neuro: Present alert, awake and oriented x 3 Extremities: Present normal inspection; Absent clubbing or cyanosis Psychiatric: Present normal affect and cooperative Meds Home Medications and Allergies Home Medications ?Medication ?Instructions ?Recorded ?Confirmed ?Type aspirin 81 mg chewable tablet 81 mg PO DAILY 11/27/19 08/05/25 History gabapentin 800 mg tablet 800 mg PO QID fibromyalgia pain 11/27/19 08/05/25 History levothyroxine 50 mcg tablet 50 mcg PO DAILY 11/27/19 08/05/25 History methadone 10 mg tablet 10 mg PO 5XDAY fibromyalgia pain 11/27/19 08/06/25 History ondansetron HCl 8 mg tablet 8 mg PO TIDP PRN Nausea 11/27/19 08/05/25 History pantoprazole 40 mg tablet,delayed 40 mg PO DAILY 11/28/19 08/05/25 History release clopidogrel 75 mg tablet 75 mg PO DAILY 07/07/22 08/05/25 History empagliflozin 25 mg tablet 25 mg PO DAILY 07/07/22 08/05/25 History (Jardiance) ergocalciferol (vitamin D2) 1,250 50,000 unit PO WEEKLY Supplement 12/02/23 08/05/25 History mcg (50,000 unit) capsule (Vitamin D2) escitalopram oxalate 20 mg tablet 20 mg PO DAILY 12/02/23 08/05/25 History fluticasone propionate 50 1 spray intranasal BID 12/02/23 08/05/25 History mcg/actuation nasal spray,suspension insulin aspart U-100 100 unit/mL 10 unit SQ TIDWMEAL Diabetes 12/02/23 07/16/25 History (3 mL) subcutaneous pen (Novolog FlexPen U-100 Insulin aspart) magnesium oxide 400 mg PO DAILY Supplement 12/02/23 08/05/25 History nitroglycerin 0.4 mg sublingual 0.4 mg sublingual Q5MINP PRN Chest 12/02/23 08/05/25 History tablet Pain insulin aspart U-100 100 unit/mL 1 sliding scale dose SQ 08/11/24 08/05/25 History subcutaneous solution (Novolog USEASDIRECTD U-100 Insulin aspart) insulin glargine 100 unit/mL 45 unit SQ HS 08/11/24 08/05/25 History subcutaneous solution (Lantus U-100 Insulin) mometasone-formoterol HFA 100 2 puff inhalation BID 90 days #13 08/11/24 08/05/25 Rx mcg-5 mcg/actuation aerosol grams inhaler (Dulera) bisoprolol fumarate 5 mg tablet 2.5 mg PO DAILY 08/14/24 08/05/25 History bupropion HCl 300 mg 24 hr tablet, 300 mg PO DAILY 07/02/25 08/05/25 History extended release spironolactone 25 mg tablet 25 mg PO DAILY 07/02/25 08/05/25 History atorvastatin 40 mg tablet 40 mg PO DAILY #30 tabs 07/16/25 08/05/25 Rx bumetanide 2 mg tablet 2 mg PO DAILY 07/16/25 08/05/25 History metolazone 2.5 mg tablet 2.5 mg PO WEEKLY 08/05/25 08/05/25 History New Prescriptions to Start Prescriptions: Allergies Allergy/AdvReac Type Severity Reaction Status Date / Time Cephalosporins Allergy Unknown Verified 07/16/25 15:08 allergy reaction meperidine Allergy Unknown Verified 07/16/25 15:08 allergy reaction NSAIDS (Non-Steroidal Allergy Unknown Verified 07/16/25 15:08 Anti-Inflamma allergy reaction pregabalin Allergy Unknown Verified 07/16/25 15:08 allergy reaction Sulfa (Sulfonamide Allergy Unknown Verified 07/16/25 15:08 Antibiotics) allergy reaction sumatriptan Allergy Unknown Verified 07/16/25 15:08 allergy reaction tizanidine Allergy Unknown Verified 07/16/25 15:08 allergy reaction enoxaparin (From Lovenox) AdvReac Unknown Verified 07/16/25 15:08 allergy reaction nalbuphine AdvReac Unknown Verified 07/16/25 15:08 allergy reaction promethazine AdvReac Unknown Verified 07/16/25 15:08 allergy reaction Results Laboratory Findings 08/06/25 05:50 08/06/25 07:50 Abnormal lab findings: Abnormal Labs 08/05/25 08/05/25 08/06/25 09:35 19:59 01:35 WBC 18.1 H RBC 3.83 L Hgb 11.7 L Hct 36.2 L Plt Count 444 H MPV Harrison % (Auto) Neut # (Auto) 11.3 H Harrison # (Auto) 1.6 H Eos # (Auto) 0.5 H Monocytes % (Manual) 10 H Eosinophils % (Manual) 6 H VBG pCO2 56.0 H VBG pO2 43.3 H VBG HCO3 32.0 H VBG Total CO2 33.7 H VBG O2 Saturation 81.0 H VBG Base Excess 6.8 H Sodium 124 L Chloride 84 L Carbon Dioxide 32 H Creatinine 1.10 H Estimated GFR 49 L Glucose 167 H POC Glucose 295 H NT-Pro-B Natriuret Pep 185 H Total Protein Albumin Globulin 3.3 H Urine Sodium 13.0 L 08/06/25 08/06/25 08/06/25 04:59 05:50 07:50 WBC 11.0 H D RBC 4.05 L Hgb Hct Plt Count MPV 11.5 H Harrison % (Auto) 10.8 H Neut # (Auto) Harrison # (Auto) 1.2 H Eos # (Auto) 0.7 H Monocytes % (Manual) Eosinophils % (Manual) VBG pCO2 VBG pO2 VBG HCO3 VBG Total CO2 VBG O2 Saturation VBG Base Excess Sodium 129 L Chloride 89 L Carbon Dioxide 33 H Creatinine Estimated GFR Glucose 281 H D POC Glucose 124 H NT-Pro-B Natriuret Pep Total Protein 6.2 L Albumin 3.4 L D Globulin Urine Sodium Assessment and Plan *Assessment and plan (1) Asthma exacerbation: Status: Acute Category: Medical Code(s): J45.901 - Unspecified asthma with (acute) exacerbation (2) Acute and chronic respiratory failure with hypoxia: Status: Acute Category: Medical Code(s): J96.21 - Acute and chronic respiratory failure with hypoxia Plan Ms. Cooney is a 70-year-old female, pulmonary fibrosis mild persistent asthma, chronic hypoxic respiratory failure at baseline on 2 L nasal cannula mentation, on Dulera inhaler at baseline, DVT not on anticoagulation status post IVC filter secondary to GI bleed recently admitted to the hospital June 2025 for worsening respiratory distress multifocal pneumonia heart failure exacerbation improved with diuretics antibiotics nebulization therapies discharged home on levofloxacin presented today with worsening respiratory distress and worsening wheezing on oxygen requirements and pulmonary was called for further evaluation and management. Neutrophilic predominant leukocytosis upon admission, improving. Afebrile. Hemodynamically stable. Blood gas upon admission chronic hypercarbic respiratory with pH of 7.38 and pCO2 of 56.0. Hypoxia noted. Comprehensive respiratory viral PCR panel negative. Other medical comorbid including CHF preserved EF hypertension diabetes mellitus CAD hypothyroidism hypertension. Chest x-ray upon admission no acute pulmonary parenchymal abnormalities. Right hilar prominence noted. Patient admits gradual worsening respiratory distress along with wheezing and shortness of breath increasing oxygen requirement despite being compliant with her Dulera inhaler at baseline. It appears patient current worsening respiratory rate likely from her asthma exacerbation at this point of time. Plan: Change Dulera to Advair 500 twice daily Albuterol 2 DuoNebs 4 times daily as needed Continue oxygen supplementation to maintain O2 saturation goal of 90% and above. Weaned to home baseline 2 L nasal oxygen supplementation with saturations at 95% and Prednisone 40 mg daily x 5 days # Thank you for involving pulmonary in this patient care will follow patient in pulmonary clinic 1 to 2 weeks.
--- NOTE | 2025-08-06 09:15 | EXP.CARD.CON ---
History of Present Illness History of Present Illness Consult date: 08/06/25 Requesting physician: Bashir Simmons Consult reason: chest pain Chief complaint: SOA and wheezing History of present illness: Maricel Cooney is a 70 year old female with a past medical history of ILD, COPD on 2 Liters, HFpEF, DVT (IVC filter in place) DM II, CKD and opioid use disorder currently in remission who presented to hospital yesterday for outpatient scheduled stress test for ongoing chest pain. Patient was noted to have significant wheezing and was complaining of SOA prompting patient to be sent to ED for evaluation. Stress test was not performed due to symptoms. EKG in ED was negative for stemi. WBC was 18.1, sodium was 124 and BNP was 185. Covid and influenza was negative. Serial Troponins negative. Chest xray was negative for acute findings. Patient was given DuoNebs and magnesium with improvment of symptoms but continued to have significant wheezing. Patient was admitted for ILD/COPD exacerbation and acute hyponatremia. This morning patient reports she still is having worse than normal SOA and intermittent chest pain like previous. Echo is pending. Pulmonology consult is pending. [facility] Disclaimer: The information contained in this section may have been updated after the patient was seen, as this information can be updated by other users. Medical History (Updated 08/06/25 @ 10:44 by Kyle Wharton MD) Asthma exacerbation HLD (hyperlipidemia) HTN (hypertension) Edema (HFpEF) heart failure with preserved ejection fraction Chronic respiratory failure with hypoxia Dyspnea on exertion ILD (interstitial lung disease) Fibrosis of lung Lupus disease of lung Acute and chronic respiratory failure with hypoxia History of ITP History of lupus Rotator cuff impingement syndrome History of anemia History of left heart catheterization (LHC) Cataract Kidney disease Thyroid disease Asthma Anemia SVT (supraventricular tachycardia) MRSA (methicillin resistant Staphylococcus aureus) HTN (hypertension) GI bleed Gastroparesis GERD (gastroesophageal reflux disease) DVT (deep venous thrombosis) Arrhythmia Endometrial cancer Heart attack Oxygen dependent COPD (chronic obstructive pulmonary disease) Diabetes Addisons disease Surgical History History of splenectomy History of esophagogastroduodenoscopy (EGD) History of carpal tunnel surgery History of Amado fundoplication History of right heart catheterization (RHC) History of hysterectomy History of colonoscopy History of cholecystectomy Family History Other Family history of anemia Family history of asthma Family history of bleeding disorder Family history of cancer Family history of diabetes mellitus Family history of kidney disease Family history of thyroid disease Social History (Updated 08/05/25 @ 13:38 by Karina Dillard RN) Smoking Status: Never smoker alcohol intake: never current occupational status: retired Travel in the last 8 weeks?: None household members: none housing: house lives independently: Yes marital status: education level: college diet: diabetic caffeine: Yes Have you lived/traveled outside [place] in past 30 days?: No Contact w/someone who lives/traveled outside US past 30 days?: No Exposure to someone with infectious disease in past 14 days?: No Do you have a fever (greater than 100.4 F or 38 C)?: No Have you tested positive for COVID-19?: No Exposed to someone with COVID-19 in past 14 days?: No Do you have a sore throat?: No Do you have a cough?: No Do you have any weakness?: No Do you have any diarrhea?: No Are you experiencing any unusual bleeding?: No Do you have any muscle aches/pain?: No Do you have any abdominal pain?: No Are you experiencing loss of taste or smell?: No Review of Systems Review of Systems Review of systems:: pertinent systems reviewed and negative unless documented below *Cardiovascular Cardiovascular: Reports chest pain and Reports dyspnea *Respiratory Respiratory: Reports dyspnea Exam Data for Last 24 hours Vital signs and Labs for Last 24 Hours: Temp Pulse Resp BP Pulse Ox O2 Del Method O2 Flow Rate 98.2 F 83 18 149/72 H 94 L Nasal Cannula 2 08/06/25 08:00 08/06/25 08:00 08/06/25 08:00 08/06/25 08:00 08/06/25 08:00 08/06/25 08:00 08/06/25 08:00 Laboratory Results - last 24 hr 08/05/25 09:35: WBC 18.1 H, RBC 3.83 L, Hgb 11.7 L, Hct 36.2 L, MCV 94.5, MCH 30.5, MCHC 32.3, RDW 13.3, Plt Count 444 H, MPV 10.4, Neut % (Auto) 62.2, Lymph % (Auto) 24.6, [place] % (Auto) 9.0, Eos % (Auto) 2.6, Baso % (Auto) 0.5, Neut # (Auto) 11.3 H, Lymph # (Auto) 4.5, [place] # (Auto) 1.6 H, Eos # (Auto) 0.5 H, Baso # (Auto) 0.1, Total Counted 100, Neutrophils % (Manual) 55, Lymphocytes % (Manual) 29, Monocytes % (Manual) 10 H, Eosinophils % (Manual) 6 H, Platelet Estimate Normal, RBC Morphology Normal, VBG pH 7.38, VBG pCO2 56.0 H, VBG pO2 43.3 H, VBG HCO3 32.0 H, VBG Total CO2 33.7 H, VBG O2 Saturation 81.0 H, VBG Base Excess 6.8 H, VBG Lactic Acid 1.5, Sodium 124 L, Potassium 4.5, Chloride 84 L, Carbon Dioxide 32 H, Anion Gap 12.5, BUN 12, Creatinine 1.10 H, Estimated Creat Clear 72, Estimated GFR 49 L, Est GFR ( Amer) 60, Glucose 167 H, Calcium 8.6, Total Bilirubin 0.4, AST 33, ALT 16, Alkaline Phosphatase 120, Troponin I < 0.01, NT-Pro-B Natriuret Pep 185 H, Total Protein 7.1, Albumin 3.8, Globulin 3.3 H, Albumin/Globulin Ratio 1.2, SARS-CoV-2 (PCR) Not detected, HCV Ab ELLYN w/Rflx PCR Qn Negative, HIV Ag/Ab Combo Qual Negative, Influenza A Untype (PCR) Not detected, Influenza Type B (PCR) Not detected 08/05/25 13:38: Troponin I < 0.01 08/05/25 16:37: Troponin I < 0.01 08/05/25 19:59: POC Glucose 295 H 08/06/25 01:35: Urine Color Yellow, Urine Appearance Clear, Urine pH 6.0, Ur Specific Coker <= 1.005, Urine Protein Negative, Urine Glucose (UA) Negative, Urine Ketones Negative, Urine Blood Negative, Urine Nitrate Negative, Urine Bilirubin Negative, Urine Urobilinogen 0.2, Ur Leukocyte Esterase Negative, Urine WBC 3-5, Ur Squamous Epith Cells 5-10, Urine Bacteria 1+, Urine Sodium 13.0 L 08/06/25 04:59: POC Glucose 124 H 08/06/25 05:50: WBC 11.0 H D, RBC 4.05 L, Hgb 12.5, Hct 38.4, MCV 94.8, MCH 30.9, MCHC 32.6, RDW 13.7, Plt Count 347, MPV 11.5 H, Neut % (Auto) 45.2, Lymph % (Auto) 36.5, [place] % (Auto) 10.8 H, Eos % (Auto) 6.2, Baso % (Auto) 0.5, Neut # (Auto) 5.0, Lymph # (Auto) 4.0, [place] # (Auto) 1.2 H, Eos # (Auto) 0.7 H, Baso # (Auto) 0.1 08/06/25 07:50: Sodium 129 L, Potassium 4.6, Chloride 89 L, Carbon Dioxide 33 H, Anion Gap 11.6, BUN 11, Creatinine 0.90, Estimated Creat Clear 78, Estimated GFR 62, Est GFR ( Amer) 75 D, Glucose 281 H D, Calcium 8.9, Magnesium 1.7, Total Bilirubin 0.2, AST 25, ALT 16, Alkaline Phosphatase 98, Total Protein 6.2 L, Albumin 3.4 L D, Globulin 2.8, Albumin/Globulin Ratio 1.2 08/06/25 : Chlamy pneumoniae PCR Not detected, Adenovirus (PCR) Not detected, B. pertussis DNA (PCR) Not detected, Coronavirus OC43 (PCR) Not detected, Coronavirus HKU1 (PCR) Not detected, Coronavirus 229E (PCR) Not detected, SARS-CoV-2 (PCR) Not detected, Coronavirus NL63 (PCR) Not detected, Human Metapneumovir PCR Not detected, Influenza A (H1) PCR Not detected, Influ A (H1N1/09) PCR Not detected, Influenza A (H3) PCR Not detected, Influenza Type A (PCR) Not detected, Influenza Type B (PCR) Not detected, M. pneumoniae (PCR) Not detected, Parainfluenza 1 (PCR) Not detected, Parainfluenza 2 (PCR) Not detected, Parainfluenza 3 (PCR) Not detected, Parainfluenza 4 (PCR) Not detected, RSV (PCR) Not detected, Entero/Rhino (PCR) Not detected I & O for Last 24 hours: Intake & Output 08/03/25 08/04/25 08/05/25 08/06/25 23:59 23:59 23:59 23:59 Intake Total 530 / 1010 480 / 480 Output Total 0 / 500 500 / 500 Balance 530 / 510 -20 / -20 Weight 205 lb 202 lb 4.8 oz Constitutional Constitutional: no acute distress *Routine Respiratory Exam Respiratory: Present wheezes and symmetric chest movement *Routine Cardiovascular Exam Cardiovascular: Present RRR, Normal S1 and Normal S2 *Routine Abdominal Exam Abdominal: Present soft and normoactive bowel sounds; Absent tenderness *Routine Extremities Exam Extremities: Present full ROM and normal capillary refill; Absent edema *Routine Skin Exam Skin: Present intact, dry and warm Detailed Neck Exam: Thyroids Thyroid: Absent bruit Meds Home Medications and Allergies Home Medications ?Medication ?Instructions ?Recorded ?Confirmed ?Type aspirin 81 mg chewable tablet 81 mg PO DAILY 11/27/19 08/05/25 History gabapentin 800 mg tablet 800 mg PO QID fibromyalgia pain 11/27/19 08/05/25 History levothyroxine 50 mcg tablet 50 mcg PO DAILY 11/27/19 08/05/25 History methadone 10 mg tablet 10 mg PO 5XDAY fibromyalgia pain 11/27/19 08/06/25 History ondansetron HCl 8 mg tablet 8 mg PO TIDP PRN Nausea 11/27/19 08/05/25 History pantoprazole 40 mg tablet,delayed 40 mg PO DAILY 11/28/19 08/05/25 History release clopidogrel 75 mg tablet 75 mg PO DAILY 07/07/22 08/05/25 History empagliflozin 25 mg tablet 25 mg PO DAILY 07/07/22 08/05/25 History (Jardiance) ergocalciferol (vitamin D2) 1,250 50,000 unit PO WEEKLY Supplement 12/02/23 08/05/25 History mcg (50,000 unit) capsule (Vitamin D2) escitalopram oxalate 20 mg tablet 20 mg PO DAILY 12/02/23 08/05/25 History fluticasone propionate 50 1 spray intranasal BID 12/02/23 08/05/25 History mcg/actuation nasal spray,suspension insulin aspart U-100 100 unit/mL 10 unit SQ TIDWMEAL Diabetes 12/02/23 07/16/25 History (3 mL) subcutaneous pen (Novolog FlexPen U-100 Insulin aspart) magnesium oxide 400 mg PO DAILY Supplement 12/02/23 08/05/25 History nitroglycerin 0.4 mg sublingual 0.4 mg sublingual Q5MINP PRN Chest 12/02/23 08/05/25 History tablet Pain insulin aspart U-100 100 unit/mL 1 sliding scale dose SQ 08/11/24 08/05/25 History subcutaneous solution (Novolog USEASDIRECTD U-100 Insulin aspart) insulin glargine 100 unit/mL 45 unit SQ HS 08/11/24 08/05/25 History subcutaneous solution (Lantus U-100 Insulin) mometasone-formoterol HFA 100 2 puff inhalation BID 90 days #13 08/11/24 08/05/25 Rx mcg-5 mcg/actuation aerosol grams inhaler (Dulera) bisoprolol fumarate 5 mg tablet 2.5 mg PO DAILY 08/14/24 08/05/25 History bupropion HCl 300 mg 24 hr tablet, 300 mg PO DAILY 07/02/25 08/05/25 History extended release spironolactone 25 mg tablet 25 mg PO DAILY 07/02/25 08/05/25 History atorvastatin 40 mg tablet 40 mg PO DAILY #30 tabs 07/16/25 08/05/25 Rx bumetanide 2 mg tablet 2 mg PO DAILY 07/16/25 08/05/25 History metolazone 2.5 mg tablet 2.5 mg PO WEEKLY 08/05/25 08/05/25 History New Prescriptions to Start Prescriptions: Allergies Allergy/AdvReac Type Severity Reaction Status Date / Time Cephalosporins Allergy Unknown Verified 07/16/25 15:08 allergy reaction meperidine Allergy Unknown Verified 07/16/25 15:08 allergy reaction NSAIDS (Non-Steroidal Allergy Unknown Verified 07/16/25 15:08 Anti-Inflamma allergy reaction pregabalin Allergy Unknown Verified 07/16/25 15:08 allergy reaction Sulfa (Sulfonamide Allergy Unknown Verified 07/16/25 15:08 Antibiotics) allergy reaction sumatriptan Allergy Unknown Verified 07/16/25 15:08 allergy reaction tizanidine Allergy Unknown Verified 07/16/25 15:08 allergy reaction enoxaparin (From Lovenox) AdvReac Unknown Verified 07/16/25 15:08 allergy reaction nalbuphine AdvReac Unknown Verified 07/16/25 15:08 allergy reaction promethazine AdvReac Unknown Verified 07/16/25 15:08 allergy reaction Assessment and Plan *Assessment and plan (1) Acute hyponatremia: Status: Acute Category: Medical Code(s): E87.1 - Hypo-osmolality and hyponatremia (2) Acute exacerbation of chronic obstructive pulmonary disease: Status: Acute Category: Medical Code(s): J44.1 - Chronic obstructive pulmonary disease with (acute) exacerbation Plan COPD ILD Defer to primary service and Pulmonology Chest pain Hx of CAD with stents Scheduled for outpatient stress test-canceled due to symptoms Trops negative EKG negative for stemi Continue aspirin, plavix, statin and bisoprolol Echo- Normal LV, Mild RV dilation with mild reduction in RV function History of HpEF Patient appears euvolemic Chest xray negative BNP on admission 185 Continue home dose diuretics Hyponatremia Sodium on admission 124, today 129 08/06/2025- Evaluated per pulmonology for copd/asthmas exacerbation-meds adjusted per Dr. Wharton. Patient reports she needs to go home due to a in the family. She denies chest pain currently. Patient can be rescheduled earlier next week for lexiscan to evaluate for CAD. Patient advised to return to ER for new or worsening symptoms. She is agreeable. Card Meds For Discharge: Aspirin 81 mg p.o. daily Bumex 2 mg p.o. daily Aldactone 25 mg p.o. daily Atorvastatin 40 mg p.o. daily Bisoprolol 5 mg p.o. daily
[2025-08-06 09:17] LABS: Hemoglobin A1C 8.6 % (4.0-6.0)
--- NOTE | 2025-08-06 09:40 | HMH.PTEV ---
Physical Therapy Evaluation Rehab PT IP Evaluation Start: 08/05/25 13:39 Freq: ONCE Status: Active Protocol: Document 08/06/25 09:38 LORA (Rec: 08/06/25 09:39 LORA [id number]) Subjective/History History History Per H&P: Richard Cooney is a 70-year-old female with a medical history significant for ILD, COPD on 2 L , HFpEF, DVT (not on AC due to GI bleed, IVC filter in place), type 2 diabetes, CKD, hypothyroidism, opioid use disorder in remission, GERD presents with chest pain and shortness of breath, weakness. Patient states over the past week she has been feeling weak with poor appetite and has not eaten much. Additionally she states she has been having chest pain since Sunday and was supposed to undergo cardiac stress test today. During stress test, patient was noted to have shortness of breath and wheezing so she was sent to the ED for further evaluation. Additionally, patient states she has been taking her Bumex 2 mg along with Lasix 40 mg intermittently to help with heart failure, and also been taking metolazone every Sunday. Patient denies fever/chills, abdominal pain. Workup in the ED significant for WBC 18.1, compensated VBG, sodium 124, BNP 185, and negative for COVID-19 and influenza. CXR without acute findings. Patient was given DuoNebs and magnesium after which patient states she felt better but not back to baseline. Continued to have significant wheezing. Given these findings, ED provider discussed case with me and I decided to admit patient for ILD/COPD exacerbation and acute hyponatremia. Subjective Subjective Pt reports she lives home alone in a home with 0 LISETH . Pt normally IND with all mobility using RW. Pt does not drive. [facility] How much help from another person do you currently need... Turning from your None back to your side while in a flat bed without using bedrails? Moving from lying on None back to sitting on the side of a flat bed without using bedrails? Moving to and from a None bed to a chair ( including a wheelchair)? Standing up from a None chair using your arms? (e.g., wheelchair, bedside chair) Walking in hospital None room? Climbing 3-5 steps A little with a railing? Mobility Score 23 Mobility Level [facility] Mobility 7 Walk 25 feet or more Mobility Calculator Rehab PT IP Eval Objective Appearance Patient Behavior Appropriate,Cooperative Patient Orientation Person,Place,Situation Difficulty following none instructions Speech Pattern Clear Ambulation Patient Able to Yes Ambulate Ambulation Observation IP General Gait Wide Based Gait Pattern Observation Ambulation Distance 20 (feet) Ambulation Assistive None Device Ambulation Ability Independent Balance Ability to Arise Able, uses arms to help Sitting Balance Steady, safe Standing Balance Steady, wide stance Dynamic Sitting Good Balance Ability Dynamic Standing Good Balance Ability Transfers Bed Transfer Ability Independent Sit to Stand Bed Independent Transfer Ability Rehab PT IP prob,goals,plan Problems Date of Evaluation: 08/06/25 Rehab Potential Rehab Potential Innapropriate for Skilled Therapy Discharge Plan PT Discharge Plan Pt appears to be at her baseline in mobility and would not benefit from skilled acute care PT at this time. Eval Complexity Eval Charge Codes 98371 - Moderate Complexity PHYSICIAN CERTIFICATION: I certify the specified therapy services for Maricel Cooney are required, authorized, and reviewed every 30 days.
--- NOTE | 2025-08-06 09:41 | HMH.OTEV ---
OT Evaluation Rehab OT IP Evaluation Start: 08/05/25 13:39 Freq: ONCE Status: Active Protocol: Document 08/06/25 09:38 [facility] (Rec: 08/06/25 09:41 [facility] [id number]) Rehab OT IP Assessment Subjective History Pt oriented x 3 on arrival. Pt agreeable to engage in therapy evaluation. Pt admitted on 08/05/25 due to hyponatremia. History and physical: Richard Cooney is a 70-year-old female with a medical history significant for ILD, COPD on 2 L, HFpEF , DVT (not on AC due to GI bleed, IVC filter in place), type 2 diabetes, CKD, hypothyroidism, opioid use disorder in remission, GERD presents with chest pain and shortness of breath, weakness. Patient states over the past week she has been feeling weak with poor appetite and has not eaten much. Additionally she states she has been having chest pain since Sunday and was supposed to undergo cardiac stress test today. During stress test, patient was noted to have shortness of breath and wheezing so she was sent to the ED for further evaluation. Additionally, patient states she has been taking her Bumex 2 mg along with Lasix 40 mg intermittently to help with heart failure, and also been taking metolazone every Sunday. Patient denies fever/chills, abdominal pain. Workup in the ED significant for WBC 18.1, compensated VBG, sodium 124, BNP 185, and negative for COVID-19 and influenza. CXR without acute findings. Patient was given DuoNebs and magnesium after which patient states she felt better but not back to baseline. Continued to have significant wheezing. Given these findings, ED provider discussed case with me and I decided to admit patient for ILD/COPD exacerbation and acute hyponatremia. Subjective Prior to being in the hospital, pt lived at home alone. Pt claims normally she is independent with ADLs and IADLs. Pt's son assists with heavier IADLs such as deep cleaning. Pt also uses rolling walker during functional transfers. Pt is on o2 at all times. Objective Patient Orientation Person,Place,Birthday Right Upper WFL Extremity Gross ROM Left Upper Extremity WFL Gross ROM Bed Mobility bed mobility-scooting,bed mobility - supine/sit Assist Level Supervision/Stand by Transfer Training Sit/Stand Transfer Assist Level Supervision/Stand by Lower Body Dressing Standby Assistance Ability Rehab OT IP prob,goals,plan Problems Date of Evaluation: 08/06/25 Rehab Potential Rehab Potential Innapropriate for Skilled Therapy Discharge Plan OT Discharge Plan Pt appears to be at her baseline with functional transfers and ADL independence. Pt can return home once she is medically stable per physician. Eval Complexity Eval Charge Codes 08049 - Moderate Complexity PHYSICIAN CERTIFICATION: I certify the specified therapy services for Maricel Cooney are required, authorized, and reviewed every 30 days.
[2025-08-06] MEDS: ACETAMINOPHEN 325MG TAB 650 MG PO (10:34)
[2025-08-06] MEDS: ONDANSETRON 4MG/2ML VIAL 4 MG IV (10:35)
[2025-08-06] MEDS: humaLOG 100 UNITS/ML 10ML VIAL (SSI) SUBCUT (11:23)
[2025-08-06] MEDS: BUMETANIDE 1 MG TABLET 2 MG PO (11:52)
[2025-08-06] MEDS: SPIRONOLACTONE 25MG TABLET 25 MG PO (11:52)
--- NOTE | 2025-08-06 12:57 | PC.NURSE ---
pt was taken for a walk test. she wears 2L NC at home and did not drop below 94% while walking.
--- NOTE | 2025-08-06 13:13 | EXP.DC.SUM ---
General Admission date:: 08/05/25 HPI HPI HPI: Richard Cooney is a 70-year-old female with a medical history significant for ILD, COPD on 2 L, HFpEF, DVT (not on AC due to GI bleed, IVC filter in place), type 2 diabetes, CKD, hypothyroidism, opioid use disorder in remission, GERD presents with chest pain and shortness of breath, weakness. Patient states over the past week she has been feeling weak with poor appetite and has not eaten much. Additionally she states she has been having chest pain since Sunday and was supposed to undergo cardiac stress test today. During stress test, patient was noted to have shortness of breath and wheezing so she was sent to the ED for further evaluation. Additionally, patient states she has been taking her Bumex 2 mg along with Lasix 40 mg intermittently to help with heart failure, and also been taking metolazone every Sunday. Patient denies fever/chills, abdominal pain. Workup in the ED significant for WBC 18.1, compensated VBG, sodium 124, BNP 185, and negative for COVID-19 and influenza. CXR without acute findings. Patient was given DuoNebs and magnesium after which patient states she felt better but not back to baseline. Continued to have significant wheezing. Given these findings, ED provider discussed case with me and I decided to admit patient for ILD/COPD exacerbation and acute hyponatremia. Hospital Course Hospital Course Hospital Course: Richard Cooney is a 70-year-old female with a medical history significant for ILD, COPD on 2 L, CAD with stent, HFpEF, DVT (not on AC due to GI bleed, IVC filter in place), type 2 diabetes, CKD, hypothyroidism, opioid use disorder in remission, GERD presents with chest pain and shortness of breath, weakness. Patient states over the past week she has been feeling weak with poor appetite and has not eaten much. Additionally she states she has been having chest pain since Sunday and was supposed to undergo cardiac stress test today. During stress test, patient was noted to have shortness of breath and wheezing so she was sent to the ED for further evaluation. Additionally, patient states she has been taking her Bumex 2 mg along with Lasix 40 mg intermittently to help with heart failure, and also been taking metolazone every Sunday. Patient denies fever/chills, abdominal pain. Workup in the ED significant for WBC 18.1, compensated VBG, sodium 124, BNP 185, and negative for COVID-19 and influenza. CXR without acute findings. Patient was given DuoNebs and magnesium after which patient states she felt better but not back to baseline. Continued to have significant wheezing. Given these findings, ED provider discussed case with me and I decided to admit patient for ILD/COPD exacerbation and acute hyponatremia. #Asthma, ILD exacerbation #Chronic hypoxic respiratory failure ? Patient presented with progressive shortness of breath, wheezing, weakness. Improved with DuoNebs, magnesium in the ED but continued to have significant wheezing. Remains on 2 L baseline. ? CXR without acute findings, initial WBC 18.1. Full respiratory panel negative. ? Clinically improved with DuoNebs, Pulmicort, prednisone, levofloxacin. WBC improved to 11. Appreciate pulmonology assistance. ? Discharged with prednisone 40 mg for 4 more days, levofloxacin 750 mg for 3 more days due to high risk of decompensation and comorbidities. ? Pulmonology recommended switching from Dulera to Advair 500 twice daily. ? Remained on 2 L nasal cannula, had appropriate saturations on walk test. #Chest pain #History of CAD with stents ? Patient states she has been having intermittent chest pains over the past week, while undergoing cardiac stress test but interrupted due to shortness of breath. ? Troponins, EKG unremarkable. ECHO without wall motion abnormalities, preserved EF. ? Follow-up ECHO. ? Cardiology consulted, patient noted to cardiology that she has had a in the family and would like to go home if stable. Cardiology deemed patient is CV stable at this time given no NSTEMI or active chest pain. Lexiscan will be rescheduled to early next week. Recommend patient following up with cardiology within 1 week. ? Continue home aspirin 81 mg, Plavix 75 mg, statin, bisoprolol 2.5 mg. #Hyponatremia #Chronic HFpEF ? Hyponatremia likely from excessive diuretic use and/or poor oral intake over the past week. Patient states she is been taking Bumex 2 mg and supplementing with Lasix 40 mg as needed, along with metolazone 2.5 mg every Sunday. ? Initial sodium 124, 135 earlier this month. Improved to to 129 on day of discharge with improved p.o. tolerance. ? Follow-up serum, urine osmolality. Urine sodium low 13.0. ? Strongly advised patient not to supplement with Lasix, continue home Bumex 2 mg and spironolactone 25 mg, hold metolazone until follow-up with cardiology. Patient euvolemic at this time. #Type 2 diabetes ? Hemoglobin A1c 8.6%. Will need to follow-up with PCP for further management. ? Continue home Jardiance 25 mg Lantus 45 units nightly, NovoLog 10 units with meals. ? Recommended decreasing gabapentin from 800 mg to 400 mg 4 times daily due to weakness. #Hypothyroidism ? Continue home levothyroxine 50 mcg. TFTs stable earlier this month. #Opioid use disorder in remission ? Continue home methadone. #CKD stage III A ? Creatinine 0.90, GFR 62. Stable. Total time spent on discharge: 31 minutes on chart review, counseling, documentation, and direct care with patient. Exam Data for Last 24 hours Vital signs and Labs for Last 24 Hours: Temp Pulse Resp BP Pulse Ox O2 Del Method O2 Flow Rate 98.2 F 83 18 149/72 H 94 L Nasal Cannula 2 08/06/25 08:00 08/06/25 08:00 08/06/25 08:00 08/06/25 08:00 08/06/25 08:30 08/06/25 13:00 08/06/25 13:00 Laboratory Results - last 24 hr 08/05/25 09:35: HIV Ag/Ab Combo Qual Negative 08/05/25 13:38: Troponin I < 0.01 08/05/25 16:37: Troponin I < 0.01 08/05/25 19:59: POC Glucose 295 H 08/06/25 01:35: Urine Color Yellow, Urine Appearance Clear, Urine pH 6.0, Ur Specific Jefferson <= 1.005, Urine Protein Negative, Urine Glucose (UA) Negative, Urine Ketones Negative, Urine Blood Negative, Urine Nitrate Negative, Urine Bilirubin Negative, Urine Urobilinogen 0.2, Ur Leukocyte Esterase Negative, Urine WBC 3-5, Ur Squamous Epith Cells 5-10, Urine Bacteria 1+, Urine Sodium 13.0 L 08/06/25 04:59: POC Glucose 124 H 08/06/25 05:50: WBC 11.0 H D, RBC 4.05 L, Hgb 12.5, Hct 38.4, MCV 94.8, MCH 30.9, MCHC 32.6, RDW 13.7, Plt Count 347, MPV 11.5 H, Neut % (Auto) 45.2, Lymph % (Auto) 36.5, Hitchcock % (Auto) 10.8 H, Eos % (Auto) 6.2, Baso % (Auto) 0.5, Neut # (Auto) 5.0, Lymph # (Auto) 4.0, Hitchcock # (Auto) 1.2 H, Eos # (Auto) 0.7 H, Baso # (Auto) 0.1 08/06/25 07:50: Sodium 129 L, Potassium 4.6, Chloride 89 L, Carbon Dioxide 33 H, Anion Gap 11.6, BUN 11, Creatinine 0.90, Estimated Creat Clear 78, Estimated GFR 62, Est GFR ( Amer) 75 D, Glucose 281 H D, Hemoglobin A1c 8.6 H, Calcium 8.9, Magnesium 1.7, Total Bilirubin 0.2, AST 25, ALT 16, Alkaline Phosphatase 98, Total Protein 6.2 L, Albumin 3.4 L D, Globulin 2.8, Albumin/Globulin Ratio 1.2 08/06/25 : Chlamy pneumoniae PCR Not detected, Adenovirus (PCR) Not detected, B. pertussis DNA (PCR) Not detected, Coronavirus OC43 (PCR) Not detected, Coronavirus HKU1 (PCR) Not detected, Coronavirus 229E (PCR) Not detected, SARS-CoV-2 (PCR) Not detected, Coronavirus NL63 (PCR) Not detected, Human Metapneumovir PCR Not detected, Influenza A (H1) PCR Not detected, Influ A (H1N1/09) PCR Not detected, Influenza A (H3) PCR Not detected, Influenza Type A (PCR) Not detected, Influenza Type B (PCR) Not detected, M. pneumoniae (PCR) Not detected, Parainfluenza 1 (PCR) Not detected, Parainfluenza 2 (PCR) Not detected, Parainfluenza 3 (PCR) Not detected, Parainfluenza 4 (PCR) Not detected, RSV (PCR) Not detected, Entero/Rhino (PCR) Not detected I & O for Last 24 hours: Intake & Output 08/03/25 08/04/25 08/05/25 08/06/25 23:59 23:59 23:59 23:59 Intake Total 530 / 1010 480 / 480 Output Total 0 / 500 500 / 500 Balance 530 / 510 -20 / -20 Weight 92.986 kg 91.762 kg Constitutional Constitutional: no acute distress and chronically ill appearing *Routine HEENT Exam Head: Present normocephalic Eye: Present EOMI and PERRL ENT: Present mucous membranes moist *Routine Neck Exam Neck: Present supple; Absent lymphadenopathy *Routine Respiratory Exam Respiratory: Present wheezes; Absent CTA bilaterally *Routine Cardiovascular Exam Cardiovascular: Present RRR *Routine Abdominal Exam Abdominal: Present soft and normoactive bowel sounds; Absent tenderness *Routine Extremities Exam Extremities: Absent cyanosis, clubbing or edema *Routine Skin Exam Skin: Present warm; Absent rash *Routine Neurological Exam Neurological: Present alert and oriented X3 Results Data Completed and Pending Labs on day of discharge: Labs from last 24 hours 08/06/25 08/06/25 08/06/25 Unknown 07:50 05:50 WBC 11.0 H D RBC 4.05 L Hgb 12.5 Hct 38.4 MCV 94.8 MCH 30.9 MCHC 32.6 RDW 13.7 Plt Count 347 MPV 11.5 H Neut % (Auto) 45.2 Lymph % (Auto) 36.5 Hitchcock % (Auto) 10.8 H Eos % (Auto) 6.2 Baso % (Auto) 0.5 Neut # (Auto) 5.0 Lymph # (Auto) 4.0 Hitchcock # (Auto) 1.2 H Eos # (Auto) 0.7 H Baso # (Auto) 0.1 Sodium 129 L Potassium 4.6 Chloride 89 L Carbon Dioxide 33 H Anion Gap 11.6 BUN 11 Creatinine 0.90 Estimated Creat Clear 78 Estimated GFR 62 Est GFR ( Amer) 75 D Glucose 281 H D POC Glucose Hemoglobin A1c 8.6 H Calcium 8.9 Magnesium 1.7 Total Bilirubin 0.2 AST 25 ALT 16 Alkaline Phosphatase 98 Troponin I Total Protein 6.2 L Albumin 3.4 L D Globulin 2.8 Albumin/Globulin Ratio 1.2 Urine Color Urine Appearance Urine pH Ur Specific [place] Urine Protein Urine Glucose (UA) Urine Ketones Urine Blood Urine Nitrate Urine Bilirubin Urine Urobilinogen Ur Leukocyte Esterase Urine WBC Ur Squamous Epith Cells Urine Bacteria Urine Sodium Chlamy pneumoniae PCR Not detected Adenovirus (PCR) Not detected B. pertussis DNA (PCR) Not detected Coronavirus OC43 (PCR) Not detected Coronavirus HKU1 (PCR) Not detected Coronavirus 229E (PCR) Not detected SARS-CoV-2 (PCR) Not detected Coronavirus NL63 (PCR) Not detected HIV Ag/Ab Combo Qual Human Metapneumovir PCR Not detected Influenza A (H1) PCR Not detected Influ A (H1N1/) PCR Not detected Influenza A (H3) PCR Not detected Influenza Type A (PCR) Not detected Influenza Type B (PCR) Not detected M. pneumoniae (PCR) Not detected Parainfluenza 1 (PCR) Not detected Parainfluenza 2 (PCR) Not detected Parainfluenza 3 (PCR) Not detected Parainfluenza 4 (PCR) Not detected RSV (PCR) Not detected Entero/Rhino (PCR) Not detected 08/06/25 08/06/25 08/05/25 04:59 01:35 19:59 WBC RBC Hgb Hct MCV MCH MCHC RDW Plt Count MPV Neut % (Auto) Lymph % (Auto) Hitchcock % (Auto) Eos % (Auto) Baso % (Auto) Neut # (Auto) Lymph # (Auto) Hitchcock # (Auto) Eos # (Auto) Baso # (Auto) Sodium Potassium Chloride Carbon Dioxide Anion Gap BUN Creatinine Estimated Creat Clear Estimated GFR Est GFR ( Amer) Glucose POC Glucose 124 H 295 H Hemoglobin A1c Calcium Magnesium Total Bilirubin AST ALT Alkaline Phosphatase Troponin I Total Protein Albumin Globulin Albumin/Globulin Ratio Urine Color Yellow Urine Appearance Clear Urine pH 6.0 Ur Specific [place] <= 1.005 Urine Protein Negative Urine Glucose (UA) Negative Urine Ketones Negative Urine Blood Negative Urine Nitrate Negative Urine Bilirubin Negative Urine Urobilinogen 0.2 Ur Leukocyte Esterase Negative Urine WBC 3-5 Ur Squamous Epith Cells 5-10 Urine Bacteria 1+ Urine Sodium 13.0 L Chlamy pneumoniae PCR Adenovirus (PCR) B. pertussis DNA (PCR) Coronavirus OC43 (PCR) Coronavirus HKU1 (PCR) Coronavirus 229E (PCR) SARS-CoV-2 (PCR) Coronavirus NL63 (PCR) HIV Ag/Ab Combo Qual Human Metapneumovir PCR Influenza A (H1) PCR Influ A (H1N1/) PCR Influenza A (H3) PCR Influenza Type A (PCR) Influenza Type B (PCR) M. pneumoniae (PCR) Parainfluenza 1 (PCR) Parainfluenza 2 (PCR) Parainfluenza 3 (PCR) Parainfluenza 4 (PCR) RSV (PCR) Entero/Rhino (PCR) 08/05/25 08/05/25 08/05/25 16:37 13:38 09:35 WBC RBC Hgb Hct MCV MCH MCHC RDW Plt Count MPV Neut % (Auto) Lymph % (Auto) Hitchcock % (Auto) Eos % (Auto) Baso % (Auto) Neut # (Auto) Lymph # (Auto) Hitchcock # (Auto) Eos # (Auto) Baso # (Auto) Sodium Potassium Chloride Carbon Dioxide Anion Gap BUN Creatinine Estimated Creat Clear Estimated GFR Est GFR ( Amer) Glucose POC Glucose Hemoglobin A1c Calcium Magnesium Total Bilirubin AST ALT Alkaline Phosphatase Troponin I < 0.01 < 0.01 Total Protein Albumin Globulin Albumin/Globulin Ratio Urine Color Urine Appearance Urine pH Ur Specific [place] Urine Protein Urine Glucose (UA) Urine Ketones Urine Blood Urine Nitrate Urine Bilirubin Urine Urobilinogen Ur Leukocyte Esterase Urine WBC Ur Squamous Epith Cells Urine Bacteria Urine Sodium Chlamy pneumoniae PCR Adenovirus (PCR) B. pertussis DNA (PCR) Coronavirus OC43 (PCR) Coronavirus HKU1 (PCR) Coronavirus 229E (PCR) SARS-CoV-2 (PCR) Coronavirus NL63 (PCR) HIV Ag/Ab Combo Qual Negative Human Metapneumovir PCR Influenza A (H1) PCR Influ A (H1N1/09) PCR Influenza A (H3) PCR Influenza Type A (PCR) Influenza Type B (PCR) M. pneumoniae (PCR) Parainfluenza 1 (PCR) Parainfluenza 2 (PCR) Parainfluenza 3 (PCR) Parainfluenza 4 (PCR) RSV (PCR) Entero/Rhino (PCR) DS: Diagnosis Discharge Diagnosis (1) Acute hyponatremia: Status: Acute Code(s): E87.1 - Hypo-osmolality and hyponatremia (2) Acute exacerbation of chronic obstructive pulmonary disease: Status: Acute Code(s): J44.1 - Chronic obstructive pulmonary disease with (acute) exacerbation Meds Home Medications and Allergies Home Medications ?Medication ?Instructions ?Recorded ?Confirmed ?Type aspirin 81 mg chewable tablet 81 mg PO DAILY 11/27/19 08/05/25 History levothyroxine 50 mcg tablet 50 mcg PO DAILY 11/27/19 08/05/25 History methadone 10 mg tablet 10 mg PO 5XDAY fibromyalgia pain 11/27/19 08/06/25 History ondansetron HCl 8 mg tablet 8 mg PO TIDP PRN Nausea 11/27/19 08/05/25 History pantoprazole 40 mg tablet,delayed 40 mg PO DAILY 11/28/19 08/05/25 History release clopidogrel 75 mg tablet 75 mg PO DAILY 07/07/22 08/05/25 History empagliflozin 25 mg tablet 25 mg PO DAILY 07/07/22 08/05/25 History (Jardiance) ergocalciferol (vitamin D2) 1,250 50,000 unit PO WEEKLY Supplement 12/02/23 08/05/25 History mcg (50,000 unit) capsule (Vitamin D2) escitalopram oxalate 20 mg tablet 20 mg PO DAILY 12/02/23 08/05/25 History fluticasone propionate 50 1 spray intranasal BID 12/02/23 08/05/25 History mcg/actuation nasal spray,suspension insulin aspart U-100 100 unit/mL 10 unit SQ TIDWMEAL Diabetes 12/02/23 07/16/25 History (3 mL) subcutaneous pen (Novolog FlexPen U-100 Insulin aspart) magnesium oxide 400 mg PO DAILY Supplement 12/02/23 08/05/25 History nitroglycerin 0.4 mg sublingual 0.4 mg sublingual Q5MINP PRN Chest 12/02/23 08/05/25 History tablet Pain insulin aspart U-100 100 unit/mL 1 sliding scale dose SQ 08/11/24 08/05/25 History subcutaneous solution (Novolog USEASDIRECTD U-100 Insulin aspart) insulin glargine 100 unit/mL 45 unit SQ HS 08/11/24 08/05/25 History subcutaneous solution (Lantus U-100 Insulin) bisoprolol fumarate 5 mg tablet 2.5 mg PO DAILY 08/14/24 08/05/25 History bupropion HCl 300 mg 24 hr tablet, 300 mg PO DAILY 07/02/25 08/05/25 History extended release spironolactone 25 mg tablet 25 mg PO DAILY 07/02/25 08/05/25 History atorvastatin 40 mg tablet 40 mg PO DAILY #30 tabs 07/16/25 08/05/25 Rx bumetanide 2 mg tablet 2 mg PO DAILY 07/16/25 08/05/25 History fluticasone 500 mcg-salmeterol 50 1 inh inhalation BID #60 ea 08/06/25 Rx mcg/dose blistr powdr for inhalation (Advair Diskus) gabapentin 800 mg tablet 400 mg (1/2 x 800 mg) PO QID 08/06/25 08/05/25 Rx fibromyalgia pain 30 days #0 tabs levofloxacin 750 mg tablet 750 mg PO 1100 3 days #3 tabs 08/06/25 Rx prednisone 20 mg tablet 40 mg (2 x 20 mg) PO DAILY 4 days 08/06/25 Rx #8 tabs New Prescriptions to Start Prescriptions: fluticasone propion-salmeterol [Advair Diskus] Bashir Simmons levofloxacin Bashir Simmons prednisone Bashir Simmons Allergies Allergy/AdvReac Type Severity Reaction Status Date / Time Cephalosporins Allergy Unknown Verified 07/16/25 15:08 allergy reaction meperidine Allergy Unknown Verified 07/16/25 15:08 allergy reaction NSAIDS (Non-Steroidal Allergy Unknown Verified 07/16/25 15:08 Anti-Inflamma allergy reaction pregabalin Allergy Unknown Verified 07/16/25 15:08 allergy reaction Sulfa (Sulfonamide Allergy Unknown Verified 07/16/25 15:08 Antibiotics) allergy reaction sumatriptan Allergy Unknown Verified 07/16/25 15:08 allergy reaction tizanidine Allergy Unknown Verified 07/16/25 15:08 allergy reaction enoxaparin (From Lovenox) AdvReac Unknown Verified 07/16/25 15:08 allergy reaction nalbuphine AdvReac Unknown Verified 07/16/25 15:08 allergy reaction promethazine AdvReac Unknown Verified 07/16/25 15:08 allergy reaction Discharge Plan Disposition Patient Disposition: Home, Self-Care Condition: Fair Follow up Plan Follow up with: Robina Downey [Primary Care Provider, Medical] - 08/12/25 4:00 pm Kyle Wharton MD [Physician, Pulmonology] - 08/18/25 11:40 am Prescriptions/Medication Reconciliation: New levofloxacin 750 mg Tablet 750 mg PO 1100 3 Days Qty: 3 0RF fluticasone propion-salmeterol [Advair Diskus] 500-50 mcg/dose blister with device 1 inh inhalation BID Qty: 60 0RF prednisone 20 mg Tablet 40 mg PO DAILY 4 Days Qty: 8 0RF Continued insulin glargine [Lantus U-100 Insulin] 100 unit/mL solution 45 unit SQ HS Rx Instructions: at night insulin aspart U-100 [Novolog U-100 Insulin aspart] 100 unit/mL solution 1 sliding scale dose SQ USEASDIRECTD bisoprolol fumarate 5 mg tablet 2.5 mg PO DAILY Patient Comments: take one-half tablet (2.5 mg) by oral route once daily bumetanide 2 mg tablet 2 mg PO DAILY atorvastatin 40 mg tablet 40 mg PO DAILY Qty: 30 3RF ondansetron HCl 8 MG tablet 8 mg PO TIDP PRN (Reason: Nausea) methadone 10 MG tablet 10 mg PO 5XDAY levothyroxine 50 MCG tablet 50 mcg PO DAILY aspirin 81 MG tablet,chewable 81 mg PO DAILY pantoprazole 40 MG tablet,delayed release (DR/EC) 40 mg PO DAILY clopidogrel 75 mg tablet 75 mg PO DAILY Jardiance 25 mg tablet 25 mg PO DAILY Patient Comments: take 1 tablet (25 mg) by oral route once daily in the morning spironolactone 25 mg tablet 25 mg PO DAILY bupropion HCl 300 mg tablet extended release 24 hr 300 mg PO DAILY escitalopram oxalate 20 mg tablet 20 mg PO DAILY Patient Comments: TAKE ONE TABLET BY MOUTH DAILY insulin aspart U-100 [Novolog FlexPen U-100 Insulin] 100 unit/mL (3 mL) insulin pen 10 unit SQ TIDWMEAL Patient Comments: INJECT 10 UNITS UNDER THE SKIN THREE TIMES DAILY WITH MEALS ergocalciferol (vitamin D2) [Vitamin D2] 1,250 mcg (50,000 unit) capsule 50,000 unit PO WEEKLY Patient Comments: Take 1 capsule every week by oral route. fluticasone propionate 50 mcg/actuation Mineral,Suspension 1 spray INTRANASAL BID Rx Instructions: administer into each nostril magnesium oxide 400 mg magnesium Tablet 400 mg PO DAILY nitroglycerin 0.4 mg tablet, sublingual 0.4 mg sublingual Q5MINP PRN (Reason: Chest Pain) Patient Comments: DISSOLVE 1 TABLET UNDER THE TONGUE EVERY 5 MINUTES NEEDED FOR CHEST PAIN. DO NOT EXCEED A TOTAL OF 3 DOSES IN 15 MINUTES. Changed gabapentin 800 MG tablet 400 mg PO QID 30 Days Qty: 0 0RF Patient Comments: TAKE 1 TABLET 4 TIMES EACH DAY Discontinued Dulera 100-5 mcg/actuation HFA aerosol inhaler 2 puff inhalation BID 90 Days Qty: 13 2RF metolazone 2.5 mg tablet 2.5 mg PO WEEKLY Rx Instructions: 2.5 mg orally Every Sunday; Problem Reconciliation Problems Reviewed?: Yes Patient Discharge Instructions Patient Instructions: Pneumonia in Adults, Hyponatremia in Adults, Stop Light Pneumonia, Stop Light Heart Failure Print Language: [place] Providers Primary Care Provider: Robina Downey Admit Provider: Bashir Simmons Attending Provider: Bashir Simmons
[2025-08-06 16:13] LABS: POC Glucose,Bedside 170 gm/dL (70-110)
--- NOTE | 2025-08-07 10:32 | SW/DCPLANNER ---
Spoke with patient on the phone. Patient stated that she is doing well. Patient stated that she is aware of her upcoming appointments and that she has some conflicts with some and is getting them taken care of. Patient stated that she was able to get her medicine picked up. Patient stated that she has no concerns or questions at this time. Yanique Wakefield
== END 2025-08-06 15:25 | disposition home or self-care (01) ==
LOC: ER 09:50 → 2ND 12:23
PROVIDERS: Admitting Provider Student in an Organized Health Care Education/Training Program; Emergency Provider Student in an Organized Health Care Education/Training Program; PCP Nurse Practitioner Family; Visit Provider Student in an Organized Health Care Education/Training Program
DX: E87.1 Hypo-osmolality and hyponatremia (principal); J44.1 Chronic obstructive pulmonary disease with (acute) exacerbation; J96.21 Acute and chronic respiratory failure with hypoxia; J96.22 Acute and chronic respiratory failure with hypercapnia; I25.10 Atherosclerotic heart disease of native coronary artery without angina pectoris; E11.22 Type 2 diabetes mellitus with diabetic chronic kidney disease; E11.43 Type 2 diabetes mellitus with diabetic autonomic (poly)neuropathy; J45.31 Mild persistent asthma with (acute) exacerbation; K31.84 Gastroparesis; E03.9 Hypothyroidism, unspecified; I13.0 Hypertensive heart and chronic kidney disease with heart failure and stage 1 through stage 4 chronic kidney disease, or unspecified chronic kidney disease; E78.5 Hyperlipidemia, unspecified; N18.31 Chronic kidney disease, stage 3a; F11.11 Opioid abuse, in remission; J84.10 Pulmonary fibrosis, unspecified; K21.9 Gastro-esophageal reflux disease without esophagitis; I45.2 Bifascicular block; I50.32 Chronic diastolic (congestive) heart failure; I25.2 Old myocardial infarction; Z95.5 Presence of coronary angioplasty implant and graft; Z99.81 Dependence on supplemental oxygen; Z86.718 Personal history of other venous thrombosis and embolism; Z95.818 Presence of other cardiac implants and grafts; Z85.42 Personal history of malignant neoplasm of other parts of uterus; Z88.1 Allergy status to other antibiotic agents; Z88.5 Allergy status to narcotic agent; Z88.6 Allergy status to analgesic agent; Z88.8 Allergy status to other drugs, medicaments and biological substances; Z88.2 Allergy status to sulfonamides; Z79.4 Long term (current) use of insulin; Z79.82 Long term (current) use of aspirin; Z79.890 Hormone replacement therapy; Z79.02 Long term (current) use of antithrombotics/antiplatelets; Z79.51 Long term (current) use of inhaled steroids; Z79.899 Other long term (current) drug therapy
CPT/HCPCS: 0223U; 36415; 71045; 80053; 81001; 82803; 82962; 83036; 83735; 83880; 83930; 83935; 84484; 84540; 85007; 85025; 86803; 87040; 87389; 87636; 89220; 93005; 93306; 94640; 94761; 96365; 96375; 97162; 97166; 99285; G0378; J2405; J3475